=== PATIENT | female | born 1990 | race Caucasian/White ===

== ENCOUNTER 2023-04-11 16:55 | Emergency (ER) | payer OTHER, SELFPAY ==
[2023-04-11 17:04] VITALS: BP 106/64; PULSE 85; RESP 14; TEMP 37.1; O2SAT 95; BMI 27.9
--- NOTE | 2023-04-11 18:23 | CT_ITS ---
[address] [address] Patient Name: ALEXANDER CASON MRN: [id number] date: 1990 Sex: F Assigned Patient Location: ER Current Patient Location: .[facility] Accession/Order Number: [id number] Exam Date: 04/11/2023 18:18 Report Date: 04/11/2023 19:28 At the request of: LUCINA MARCELINO Procedure: CT lumbar spine wo con CT LUMBAR SPINE WITHOUT CONTRAST, 04/11/2023 6:18 PM EDT INDICATION: pain COMPARISON: None. TECHNIQUE: Thin-section axial CT images of the entire lumbar spine were acquired withoutcontrast. Supplemental 2D reformatted images were generated and reviewed as needed. Dose reduction techniques were achieved by using automated exposure control and/or adjustment of mA and/or kV according to patient size and/or use of iterative reconstruction technique. FINDINGS: PARASPINAL: Normal with no visible mass. BONES: No fracture, pars defect, or osseous lesion. OTHER: None. DISC LEVELS: T12-L1: No significant disc/facet abnormality, spinal stenosis, or foraminal stenosis. L1-L2: No significant disc/facet abnormality, spinal stenosis, or foraminal stenosis. L2-L3: No significant disc/facet abnormality, spinal stenosis, or foraminal stenosis. L3-L4: There is mild circumferential bulging of the L3-L4 disc. The central canal and neural foramina are satisfactorily maintained. L4-L5: There is circumferential bulging of the L4-L5 disc. This combines with mild ligamentum flavum thickening to result in mild central canal stenosis. Associated mild foraminal stenosis bilaterally. L5-S1: There is mild circumferential bulging of the L5-S1 disc. The central canal and neural foramina are satisfactorily maintained. IMPRESSION: Circumferential bulging of the L4-L5 disc with mild central canal stenosis as detailed above. Electronically authenticated by: Marisela BURNS Date: 04/11/2023 19:28
--- NOTE | 2023-04-11 19:33 | ED_ITS ---
HPI - Back Pain/Injury General Chief Complaint: Back Pain/Injury Stated Complaint: BACK PAIN Time Seen by Provider: 04/11/23 19:08 Source: patient Mode of arrival: walk-in History of Present Illness HPI Narrative: history of chronic back pain presenting with one day history of lower back pain is not radiating down her legs and not associated with any new trauma or injury. The patient mentioned that she had similar pain like this month ago she was seen with steroids and relaxant Review of systems otherwise negative Related Data Home Medications Medication Instructions Recorded Confirmed atomoxetine 40 mg capsule 40 mg PO DAILY 04/11/23 04/11/23 buprenorphine 8 mg-naloxone 2 mg 1 film sublingual DAILY 04/11/23 04/11/23 sublingual film (Suboxone) gabapentin 300 mg capsule 300 mg PO TID 04/11/23 04/11/23 quetiapine 150 mg tablet 150 mg PO .HS 04/11/23 04/11/23 Previous Rx's Medication Instructions Recorded cyclobenzaprine 5 mg tablet 5 mg PO BID PRN muscle spasm #10 04/11/23 tabs famotidine 20 mg tablet (Pepcid) 20 mg PO Q12H #10 tabs 04/11/23 meloxicam 15 mg tablet 15 mg PO DAILY PRN pain #10 tabs 04/11/23 prednisone 50 mg tablet 50 mg PO DAILY 5 days #5 tabs 04/11/23 Allergies Allergy/AdvReac Type Severity Reaction Status Date / Time Penicillins Allergy Severe Verified 04/11/23 17:04 Review of Systems ROS Status of ROS 10 or more systems reviewed and unremarkable except as noted in history and below Exam Narrative Exam Narrative: Nurses notes and vital signs reviewed and patient is not hypoxic. General: Well-appearing and in no apparent distress. Skin: Warm, dry, no pallor noted. No rash. Head: Normocephalic, atraumatic. Neck: Supple, non-tender. Eye: Pupils are equal, round and EOMI. No scleral icterus. Ears, Nose, Mouth, and Throat: TM are clear, no nasal mucosal hypertrophy. Oral mucosa is moist, no posterior oropharynx erythema, uvula is mid-line Cardiovascular: Regular Rate and Rhythm without murmur, gallop or rub. Respiratory: No accessory muscle use or respiratory distress. Lungs are clear to auscultation, no wheezing, rales or rhonchi Chest Wall: no tenderness Back: No midline thoracicsome midline sacral and lower lumbar tenderness. No CVA tenderness Musculoskeletal: normal ROM, no calf or popliteal tenderness, no lower e xtremity edema/swelling GI: Abdomen is soft, non-distended. Normal bowel sounds. No masses appreciated. No tenderness to palpation. No rebound, guarding, or rigidity noted. Neurological: A&O x4. No cranial nerve dysfunction observed. No truncal ataxia. Moves all extremities. Sensation intact. Psychiatric: Cooperative and interactive. Normal mood and affect. Constitutional Vital Signs - 24 hr 04/11/23 17:04 Temperature 98.7 F Pulse Rate [Monitor] 85 Respiratory Rate 14 Blood Pressure [Left Arm] 106/64 Pulse Oximetry 95 Oxygen Delivery Method Room Air Course Vital Signs Vital signs: Vital Signs Temperature 98.7 F 04/11/23 17:04 Pulse Rate 85 04/11/23 17:04 Respiratory Rate 14 04/11/23 17:04 Blood Pressure 106/64 04/11/23 17:04 Pulse Oximetry 95 04/11/23 17:04 Oxygen Delivery Method Room Air 04/11/23 17:04 Temperature 98.7 F 04/11/23 17:04 Pulse Rate 85 04/11/23 17:04 Respiratory Rate 14 04/11/23 17:04 Blood Pressure 106/64 04/11/23 17:04 Pulse Oximetry 95 04/11/23 17:04 Oxygen Delivery Method Room Air 04/11/23 17:04 MDM - Back Pain/Injury MDM Narrative Medical decision making narrative: CT of the lumbar spine shows mild disc disease at the L4-L5 level The patient was treated with prednisone in addition to Toradol and Norflex with prescription of the Mobic go home with chronic back pain with no alarming symptoms the patient was advised to follow- up with her primary care doctor The patient is to followup with primary care physician in next 2-3 days or to return to the emergency department should any of the signs or symptoms worsen or new symptoms develop. The patient agrees with the following Diagnosis and Treatment plan and the patient will be discharged home. Discharge Plan Discharge Chief Complaint: Back Pain/Injury Clinical Impression: Strain of lumbar region Patient Disposition: Home, Self-Care Time of Disposition Decision: 19:51 Mode of Transportation: Private Vehicle Prescriptions / Home Meds: New meloxicam 15 mg tablet 15 mg PO DAILY PRN (Reason: pain ) Qty: 10 0RF famotidine [Pepcid] 20 mg tablet 20 mg PO Q12H Qty: 10 0RF prednisone 50 mg tablet 50 mg PO DAILY 5 Days Qty: 5 0RF cyclobenzaprine 5 mg tablet 5 mg PO BID PRN (Reason: muscle spasm) Qty: 10 0RF No Action atomoxetine 40 mg capsule 40 mg PO DAILY buprenorphine-naloxone [Suboxone] 8-2 mg film 1 film sublingual DAILY gabapentin 300 mg capsule 300 mg PO TID quetiapine 150 mg tablet 150 mg PO .HS Instructions: Acute Low Back Pain (ED) Stand Alone Forms: Portal Instructions Referrals: ROMEO GAR [Primary Care Provider] - 1 week Discharge Date/Time: 04/11/23 20:06
[2023-04-11] MEDS: KETOROLAC TROMETHAMINE 60 MG/2 ML VIAL 30 MG IM (19:54)
[2023-04-11] MEDS: ORPHENADRINE 60 MG/ 2 ML VIAL IM (19:55)
== END 2023-04-11 20:06 | disposition home or self-care (01) ==
PROVIDERS: Emergency Provider Emergency Medicine; PCP Nurse Practitioner Family
DX: S39.012A Strain of muscle, fascia and tendon of lower back, initial encounter (principal); Z79.899 Other long term (current) drug therapy; M50.10 Cervical disc disorder with radiculopathy, unspecified cervical region
CPT/HCPCS: 72131; 96372; 99284

== ENCOUNTER 2023-10-20 20:58 | Emergency (ER) | payer OTHER, SELFPAY ==
[2023-10-20 21:00] VITALS: BP 125/89; PULSE 77; RESP 18; TEMP 36.8; O2SAT 99; BMI 29.1
--- NOTE | 2023-10-20 21:23 | ED.DENTAL1 ---
HPI - Dental/Oral General Chief complaint: Dental/Oral Stated complaint: DENTAL ISSUES Time Seen by Provider: 10/20/23 21:04 Source: patient Mode of arrival: walk-in Limitations: no limitations History of Present Illness HPI Narrative: 33 year old female presents to the ED for left lower dental pain, facial swelling. Onset was this morning. States she had her lower teeth pulled a few years ago. Some time ago a piece of tooth to the left posterior jaw area game through the gum line. Denies fever, chills, drainage, SOB, difficulty swallowing. Rates her pain 04/10. Denies chance of . MD Complaint: Reports tooth pain Related Data Home Medications Medication Instructions Recorded Confirmed atomoxetine 40 mg capsule 40 mg PO DAILY 04/11/23 10/20/23 buprenorphine 8 mg-naloxone 2 mg 1 film sublingual DAILY 04/11/23 10/20/23 sublingual film (Suboxone) gabapentin 300 mg capsule 300 mg PO TID 04/11/23 04/11/23 quetiapine 150 mg tablet 150 mg PO .HS 04/11/23 10/20/23 alprazolam 0.25 mg tablet mg 10/20/23 gabapentin 400 mg capsule mg 10/20/23 Previous Rx's Medication Instructions Recorded cyclobenzaprine 5 mg tablet 5 mg PO BID PRN muscle spasm #10 04/11/23 tabs famotidine 20 mg tablet (Pepcid) 20 mg PO Q12H #10 tabs 04/11/23 meloxicam 15 mg tablet 15 mg PO DAILY PRN pain #10 tabs 04/11/23 prednisone 50 mg tablet 50 mg PO DAILY 5 days #5 tabs 04/11/23 clindamycin HCl 300 mg capsule 300 mg PO Q8H 10 days #30 caps 10/20/23 ibuprofen 800 mg tablet 800 mg PO TID PRN pain #14 tabs 10/20/23 Allergies Allergy/AdvReac Type Severity Reaction Status Date / Time Penicillins Allergy Severe Verified 10/20/23 21:03 Review of Systems ROS Constitutional Denies: fever or chills Ears, nose, mouth, and throat Reports: mouth pain; Denies: throat pain, neck pain, throat swelling or difficulty swallowing Cardiovascular Denies: chest pain Respiratory Denies: shortness of breath Integumentary/Breast Denies: rash Neurological Denies: headache PFSH PFSH Social History Smoking status: Current every day smoker Exam Constitutional Vital Signs, click to edit/add: Last Vital Signs Temp 98.3 F 10/20/23 21:00 Pulse 77 10/20/23 21:00 Resp 18 10/20/23 21:00 BP 125/89 10/20/23 21:00 Pulse Ox 99 10/20/23 21:00 O2 Del Method Room Air 10/20/23 21:00 Common normals: no apparent distress and oriented x3 General appearance: cooperative; not ill appearing HENMT Mouth: lip normal and tongue normal Teeth and gingiva: caries (Left lower posterior dental caries at remaining tooth site. ) and other (Mild swelling left lower jaw. No swelling to floor of mouth. ) Throat: posterior oropharynx normal, uvula midline and other (Pt speaking in full sentences, handling secretions well.) Eye Common normals: conjunctivae normal and no scleral icterus Neck & C-Spine Common normals: supple Chest Chest: symmetrical chest wall rise Respiratory Common normals: normal respiratory effort Effort & inspection: symmetric chest movement Neuro Common normals: oriented x3 Sensorium/orientation: awake and alert Course Vital Signs Vital signs: Vital Signs Temperature 98.3 F 10/20/23 21:00 Pulse Rate 77 10/20/23 21:00 Respiratory Rate 18 10/20/23 21:00 Blood Pressure 125/89 10/20/23 21:00 Pulse Oximetry 99 10/20/23 21:00 Oxygen Delivery Method Room Air 10/20/23 21:00 Temperature 98.3 F 10/20/23 21:00 Pulse Rate 77 10/20/23 21:00 Respiratory Rate 18 10/20/23 21:00 Blood Pressure 125/89 10/20/23 21:00 Pulse Oximetry 99 10/20/23 21:00 Oxygen Delivery Method Room Air 10/20/23 21:00 MDM - Dental/Oral MDM Narrative Medical decision making narrative: Prescriptions were provided for clindamycin and Motrin. Follow up with a dentist for a recheck, further evaluation and treatment. Return precautions were discussed. Differential Diagnosis Differential diagnosis: Likely dental caries, toothache and dental abscess Medical Records Attestation: I reviewed the patient's medical records. Discharge Plan Discharge Chief Complaint: Dental/Oral Clinical Impression: Toothache Patient Disposition: Home, Self-Care Time of Disposition Decision: 21:14 Condition: Good Mode of Transportation: Private Vehicle Prescriptions / Home Meds: New clindamycin HCl 300 mg capsule 300 mg PO Q8H 10 Days Qty: 30 0RF ibuprofen 800 mg tablet 800 mg PO TID PRN (Reason: pain) Qty: 14 0RF No Action atomoxetine 40 mg capsule 40 mg PO DAILY buprenorphine-naloxone [Suboxone] 8-2 mg film 1 film sublingual DAILY gabapentin 300 mg capsule 300 mg PO TID quetiapine 150 mg tablet 150 mg PO .HS meloxicam 15 mg tablet 15 mg PO DAILY PRN (Reason: pain ) Qty: 10 0RF famotidine [Pepcid] 20 mg tablet 20 mg PO Q12H Qty: 10 0RF prednisone 50 mg tablet 50 mg PO DAILY 5 Days Qty: 5 0RF cyclobenzaprine 5 mg tablet 5 mg PO BID PRN (Reason: muscle spasm) Qty: 10 0RF gabapentin 400 mg capsule alprazolam 0.25 mg tablet Instructions: Toothache (ED) Additional Instructions: Follow up with your dentist for a recheck, further evaluation and treatment. Return to the ER if your symptoms worsen. Stand Alone Forms: Portal Instructions Referrals: ROMOE GAR [Primary Care Provider] - 1 week Discharge Date/Time: 10/20/23 21:32
[2023-10-20] MEDS: CLINDAMYCIN HCL 150 MG CAPSULE 300 MG PO (21:29)
[2023-10-20] MEDS: IBUPROFEN 400 MG TABLET 800 MG PO (21:29)
--- OUTSIDE RECORDS SUMMARY | 2023-10-21 10:14 | XMS_ITS | CCD ---
Author Name Unknown Address [id number] [place] [address] Organization [facility] Care Team Providers Care Shell Sorter Name Role Phone Sidney Nava Unavailable Unavailable Unavailable Primary Care Provider Unavailabl e Unavailable Primary Care Provider Unavailabl e MALINI FRITZ Referring Unavailable CATRINA, MALINI Referring Unavailable CATRINA, MALINI Referring Unavailable CATRINA, MALINI Referring Unavailable Rody Monk MD Attending Unavailable PETROS, DR COOK Admitting Unavailable REQUEST, NONE LISTED Primary Care Unavaila ble KARMICHAEL, DR COOK Consulting Unavailable KARASIK, DR COOK Attending Unavailable KARASIK, DR COOK Consulting Unavailable CONG, ROMEO Primary Care Unavailable KARASIK, DR COOK Attending Unavailable KARASIK, DR COOK Admitting Unavailable CONG, ROMEO Consulting Unavailable CONG, ROMEO Attending Unavailable CONG, ROMEO Admitting Unavailable CONG, ROMEO Primary Care Unavailable LUCINA MARCELINO Attending Unavailable CONG, ROMEO Primary Care Unavailable CRISTHIAN OLVERA Consulting Unavailable LUCINA MARCELINO Admitting Unavailable PAY, DR BAL Admitting Unavailable REQUEST, NONE LISTED Primary Care Unavaila ble CRISTHIAN VANN Consulting Unavailable PAY, DR BAL Attending Unavailable REQUEST, NONE LISTED Primary Care Unavaila ble PETROS, DR COOK Consulting Unavailable ASHLEIGHASICandelaria, DR COOK Attending Unavailable KARASIK, DR COOK Admitting Unavailable ZIEBDR MAYUR TORRES Consulting Unavailable Allergies Allergy Classification Reported Allergen(s) Allergy Type Date of Onset Reaction(s) Facility (1 source) Penicillins Drug allergy (disorder) 04-10-2013 [facility] Repository Problems Active Problems Problem Classification Problem Date Documented Da te Episodic/Chronic Anxiety disorders (1 source) Anxiety disorder, unspecified; Translations: [ANXIETY DISORDER UNSPECIFIED] Onset: 07-31-2022 Chronic Other female genital disorders (4 sources) Other specified conditions associated with female genital organs and menstrual cycle; Translations: [OTH SPEC COND FE GEN ORG MENST CYCL] Onset: 12-10-2022 Episodic Substance-related disorders (2 sources) Nicotine dependence, cigarettes, uncomplicated; Translations: [Opioid abuse, uncomplicated] Onset: 05-12-2022 Chronic Unclassified (2 sources) LOW BACK PAIN, UNSPECIFIED; Translations: [LOW BACK PAIN, UNSPECIFIED] Onset: 07-31-2022 Past or Other Problems Problem Classification Problem Date Documented Da te Episodic/Chronic Abdominal pain (4 sources) Pelvic and perineal pain; Translations: [PELVIC AND PERINEAL PAIN] Onset: 07-11-2022 Episodic Disorders of teeth and jaw (4 sources) Jaw pain; Translations: [Other specified disorders of teeth and supporting structures] Onset: 05-11-2022 Episodic E Codes: Natural/environment (1 source) Other and unspecified overexertion or strenuous movements or postures, initial encounter; Translations: [OTH AND UNS OVREXRT/STRN MVMT/POS INT] Onset: 07-31-2022 Episodic Other aftercare (5 sources) Other chcf (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 therapy; Translations: [OTH SENIOR CARE CURRENT DRUG THERAPY] Onset: 07-31-2022 Episodic Other nervous system disorders (1 source) Atypical facial pain; Translations: [ATYPICAL FACIAL PAIN] Onset: 05-12-2022 Episodic Other screening for suspected conditions (not mental disorders or infectious disease) (4 sources) Encounter for screening for malignant neoplasm of cervix; Translations: [ENC SCREENING MALIG NEOPLASM CERV] Onset: 06-15-2022 Episodic Ovarian cyst (1 source) Unspecified ovarian cyst, right side; Translations: [UNSPECIFIED OVARIAN CYST RIGHT SIDE] Onset: 07-17-2022 Episodic Sprains and strains (1 source) Sprain of ligaments of lumbar spine, initial encounter; Translations: [SPRAIN LIGAMENTS LUMBAR SPN INITIAL] Onset: 07-31-2022 Episodic Unclassified (1 source) LOW BACK PAIN, UNSPECIFIED; Translations: [LOW BACK PAIN, UNSPECIFIED] Onset: 07-29-2022 Results Test Name Value Interpretation Reference Range Facil ity COMPLIANCE DRUG SCREENon PDF . Normal [facility] Comment on above: Performed By: #### D SDOAL #### [facility] [address] [address] [address] Roberto Parmar Summary FINAL Normal [facility] Comment on above: Result Comment: === TOXASSURE COMP DRUG ANALYSIS,UR === Specimen Alert Note: Urinary creatinine is low; ability to detect some drugs may be compromised. Interpret results with caution. === Test Result Flag Units Drug Present and Declared for Prescription Verification Alprazolam 132 EXPECTED ng/mg creat Alpha-hydroxyalprazolam 247 EXPECTED ng/mg creat Source of alprazolam is a scheduled prescription medication. Alpha-hydroxyalprazolam is an expected metabolite of alprazolam. Buprenorphine 379 EXPECTED ng/mg creat Norbuprenorphine 637 EXPECTED ng/mg creat Source of buprenorphine is a scheduled prescription medication. Norbuprenorphine is an expected metabolite of buprenorphine. Gabapentin PRESENT EXPECTED Drug Present not Declared for Prescription Verification Acetaminophen PRESENT UNEXPECTED Ibuprofen PRESENT UNEXPECTED Dextrorphan/Levorphanol PRESENT UNEXPECTED Dextrorphan is an expected metabolite of dextromethorphan, an gpnm-iow-mzwagwj or prescription cough suppressant. Levorphanol is a scheduled prescription medication. Dextrorphan cannot be distinguished from levorphanol by the method used for analysis. Guaifenesin PRESENT UNEXPECTED Guaifenesin may be administered as an zreb-xjr-anscfbv or prescription drug; it may also be present as a breakdown product of methocarbamol. Drug Absent but Declared for Prescription Verification Cyclobenzaprine Not Detected UNEXPECTED Quetiapine Not Detected UNEXPECTED === Test Result Flag Units Ref Range Creatinine 19 L mg/dL >=20 === Declared Medications: The flagging and interpretation on this report are based on the following declared medications. Unexpected results may arise from inaccuracies in the declared medications. Note: The testing scope of this panel includes these medications: Alprazolam (Xanax) Buprenorphine. (Suboxone) Cyclobenzaprine (Flexeril) Gabapentin Quetiapine (Seroquel) Note: The testing scope of this panel does not include following reported medications: Naloxone (Suboxone) === For clinical consultation, please call . === Performed By: #### D SDOALC #### [facility] [address] [place] [address] Dr. Roberto Parmar URIC ACID [facility] 09-03 Uric Acid, Urine 12.4 mg/dL Normal Not Estab. [facility] Comment on above: Performed By: #### U RICUR #### [facility] [address] [place] [address] Dr. Roberto Parmar DRUG SCREEN RAPID (URINE)on 09-02-2022 AMP Negative Normal NEGATIVE [facility] Comment on above: Performed By: #### D RUGRPD #### [facility] [address] [place] [address] Dr. Roberto Parmar BAR Negative Normal NEGATIVE [facility] Comment on above: Performed By: #### D RUGRPD #### [facility] [address] [place] [address] Dr. Roberto Parmar BUP Positive Abnormal NEGATIVE [facility] Comment on above: Performed By: #### D RUGRPD #### [facility] [address] [place] [address] Dr. Roberto Parmar BZO Positive Abnormal NEGATIVE [facility] Comment on above: Performed By: #### D RUGRPD #### [facility] [address] [place] [address] Dr. Roberto Parmar BRITTANY Negative Normal NEGATIVE [facility] Comment on above: Performed By: #### D RUGRPD #### [facility] [address] [place] [address] Dr. Roberto Parmar CUT-OFFS SEE BELOW Normal [facility] Comment on above: Result Comment: AMP (Amphetamine): 500ng/mL, BAR (Barbituates): 200 ng/mL, BZO (Benzodiazepines): 150 ng/mL, BUP (Buprenorphine): 10 ng/mL, BRITTANY (Cocaine): 150 ng/mL, mAMP (Methamphetamine): 500 ng/mL, MTD (Methadone): 200 ng/mL, OPI (Opiates): 100 ng/mL, OXY (Oxycodone): 100 ng/mL, PCP (Phencyclidine): 25 ng/mL, PPX (Propoxyphene): 300 ng/mL, THC (Cannabinoids): 50 ng/mL, TCA (Trycyclic Antidepressants): 300 ng/mL Performed By: #### D RUGRPD #### [facility] [address] [address] [address] Roberto Parmar DRUG CUT HEADER DRUG CLASS TEST SYSTEM CUT-OFF CONCENTRATIONS ARE FOLLOWS: Normal [facility] Comment on above: Performed By: #### D RUGRPD #### [facility] [address] [place] [address] Dr. Roberto Parmar mAMP Negative Normal NEGATIVE [facility] Comment on above: Performed By: #### D RUGRPD #### [facility] [address] [place] [address] Dr. Roberto Parmar MTD Negative Normal NEGATIVE [facility] Comment on above: Performed By: #### D RUGRPD #### [facility] [address] [place] [address] Dr. Roberto Parmar OPI Negative Normal NEGATIVE [facility] Comment on above: Performed By: #### D RUGRPD #### [facility] [address] [place] [address] Dr. Roberto Parmar OXY Negative Normal NEGATIVE [facility] Comment on above: Performed By: #### D RUGRPD #### [facility] [address] [place] [address] Dr. Roberto Parmar PCP Negative Normal NEGATIVE [facility] Comment on above: Performed By: #### D RUGRPD #### [facility] [address] [place] [address] Dr. Roberto Parmar PPX Negative Normal NEGATIVE [facility] Comment on above: Performed By: #### D RUGRPD #### [facility] [address] [place] [address] Dr. Roberto Parmar TCA Negative Normal NEGATIVE [facility] Comment on above: Performed By: #### D RUGRPD #### [facility] [address] [place] [address] Dr. Roberto Parmar THC Negative Normal NEGATIVE [facility] Comment on above: Performed By: #### D RUGRPD #### [facility] [address] [place] [address] Dr. Roberto Parmar US PELVIS AND TRANSVAGon US PELVIS AND TRANSVAG EXAMINATION: US PELVIS AND TRANSVAG HISTORY: Pelvic and perineal pain COMPARISON: Ultrasound pelvis 12/31/2009 TECHNIQUE: Transabdominal and transvaginal sonographic examination. FINDINGS: UTERUS: Slightly heterogeneous echotexture; nonspecific. Normal size and contour. Uterus size: 7.8 x 3.3 x 3.8 cm ENDOMETRIUM: Trace amount of fluid within endometrial cavity, 2 mm in thickness. Normal endometrial thickness and echotexture. Endometrial thickness: 10 mm RIGHT OVARY: Normal size and appearance. Duplex Doppler demonstrates normal waveform and flow; resistive index 0.6. Ovary size: 2.4 x 1.4 x 2.2 cm LEFT OVARY: Contains a benign-appearing 2.0 cm cyst. Duplex Doppler demonstrates normal waveform and flow; resistive index 0.5. Ovary size: 3.9 x 2.3 x 2.4 cm CUL-DE-SAC: Unremarkable. No significant free fluid. BLADDER: Unremarkable. OTHER: None. IMPRESSION: 1. Right ovary contains a 2.0 cm benign-appearing cyst of uncertain clinical significance. 2. Trace fluid within the endometrial cavity, likely blood products. 3. No specific findings to account for patient's symptoms. Electronically authenticated by: MAYUR ALLEN Date: 2022-07-13 07:21 Normal [facility] PAP ACOG PANEL 2: 21 to 31on 06-18-2022 . . Normal [facility] Comment on above: Performed By: #### [id number] #### [facility] [address] [place] [address] Dr. Roberto Parmar Age Gdln ACOG Testing 21-29 Normal [facility] Comment on above: Performed By: #### [id number] #### [facility] [address] [place] [address] Dr. Roberto Parmar DIAGNOSIS: Comment Normal [facility] Comment on above: Result Comment: NEGA TIVE FOR INTRAEPITHELIAL LESION OR MALIGNANCY. Performed By: #### [id number] #### [facility] [address] [place] [address] Dr. Roberto Parmar Methodology: Comment [facility] Comment on above: Result Comment: This liquid based ThinPrep(R) pap test was screened with the use of an image guided system. Performed By: #### [id number] #### [facility] [address] [place] [address] Dr. Roberto Parmar Note: Comment Normal [facility] Comment on above: Result Comment: The Pap smear is a screening test designed to aid in the detection of premalignant and malignant conditions of the uterine cervix. It is not a diagnostic procedure and should not be used as the sole means of detecting cervical cancer. Both false-positive and false-negative reports do occur. . Performed By: #### [id number] #### [facility] [address] [address] [address] Roberto Parmar Performed by: Comment Normal [facility] Comment on above: Result Comment: Kishore De Dios Education Administrator (ASCP) Performed By: #### [id number] #### [facility] [address] [place] [address] Dr. Roberto Parmar Reflex Criteria: Comment Normal [facility] Comment on above: Result Comment: The HPV DNA reflex criteria were not met with this specimen result therefore, no HPV testing was performed. . Performed By: #### [id number] #### [facility] [address] [place] [address] Dr. Roberto Parmar Specimen adequacy: Comment Normal [facility] Comment on above: Result Comment: Sati sfactory for evaluation. Endocervical and/or squamous metaplastic cells (endocervical component) are present. Performed By: #### [id number] #### [facility] [address] [place] [address] Dr. Roberto Parmar CBCon 12-06-2020 Erythrocyte distribution width (RBC) [Ratio] 13.6 % Normal 11.8-14.4 [facility] Comment on above: Performed By: #### P HEP, HIVCMB #### [facility] [address] [place], [place] [id number] District Recruiter: Alvino Davila MD #### CP, CBC, HCG #### [facility] [address] [place] [address] District Recruiter: Luis A Peng MD Hematocrit (Bld) [Volume fraction] 44.1 % Normal 36.3-47.1 [facility] Comment on above: Performed By: #### P HEP, HIVCMB #### [address] [id number] District Recruiter: Alvino Davila MD #### CP, CBC, HCG #### [address] [place] [address] District Recruiter: Luis A Peng MD Hemoglobin (Bld) [Mass/Vol] 14.1 g/dL Normal 11.9-15.1 [facility] Comment on above: Performed By: #### P HEP, HIVCMB #### [address] [id number] District Recruiter: Alvino Davila MD #### CP, CBC, HCG #### [address] [place] [id number] District Recruiter: Luis A Peng MD MCH (RBC) [Entitic mass] 25.4 pg Normal 25.2-33.5 [facility] Comment on above: Performed By: #### P HEP, HIVCMB #### [address] [id number] District Recruiter: Alvino Davila MD #### CP, CBC, HCG #### [address] [place] [id number] District Recruiter: Luis A Peng MD MCHC (RBC) [Mass/Vol] 32.0 g/dL Normal 28.4-34.8 [facility] Comment on above: Performed By: #### P HEP, HIVCMB #### [address] [id number] District Recruiter: Alvino Davila MD #### CP, CBC, HCG #### [address] [place] [address] District Recruiter: Luis A Peng MD MCV (RBC) [Entitic vol] 79.5 fL Low 82.6-102.9 [facility] Comment on above: Performed By: #### P HEP, HIVCMB #### [address] [id number] District Recruiter: Alvino Davila MD #### CP, CBC, HCG #### [facility] [address] [place] [id number] District Recruiter: Luis A Peng MD NRBC Automated 0.0 per 100 WBC Normal 0.0 [facility] Comment on above: Performed By: #### P HEP, HIVCMB #### [address] [address] District Recruiter: Alvino Davila MD #### CP, CBC, HCG #### [address] [place] [id number] ( District Recruiter: Luis A Peng MD Platelet mean volume (Bld) [Entitic vol] 11.8 fL Normal 8.1-13.5 [facility] Comment on above: Performed By: #### P HEP, HIVCMB #### [address] [address] District Recruiter: Alvino Davila MD #### CP, CBC, HCG #### [address] [place] [id number] District Recruiter: Luis A Peng MD Platelets (Bld) [#/Vol] 238 10*3/uL Normal 138-453 [facility] Comment on above: Performed By: #### P HEP, HIVCMB #### [address] [address] District Recruiter: Alvino Davila MD #### CP, CBC, HCG #### [address] [place] [phone] District Recruiter: Luis A Peng MD RBC (Bld) [#/Vol] 5.55 10*6/uL High 3.95-5.11 [facility] Comment on above: Performed By: #### P HEP, HIVCMB #### [facility] [address] [place], [place] [id number] District Recruiter: Alvino Davila MD #### CP, CBC, HCG #### [facility] [address] [place] [address] Dr. [place] [phone] District Recruiter: Luis A Peng MD WBC (Bld) [#/Vol] 8.6 10*3/uL Normal 3.5-11.3 [facility] Comment on above: Performed By: #### P HEP, HIVCMB #### [address] [place], [place] [id number] District Recruiter: Alvino Davila MD #### CP, CBC, HCG #### [address] [place] [address] District Recruiter: Luis A Peng MD Erythrocyte distribution width (RBC) [Ratio] 13.6 % 11.8 - 14.4 % [place], [place] Hematocrit (Bld) [Volume fraction] 44.1 % 36.3 - 47.1 % [place], [place] Hemoglobin (Bld) [Mass/Vol] 14.1 g/dL 11.9 - 15.1 g/dL [place], [place] Interpretation and review of laboratory results Abnormal [place] MCH (RBC) [Entitic mass] 25.4 pg 25.2 - 33.5 pg [place] MCHC (RBC) [Mass/Vol] 32.0 g/dL 28.4 - 34.8 g/dL [place] MCV (RBC) [Entitic vol] 79.5 fL Low 82.6 - 102.9 fL [place], [place] Platelet mean volume (Bld) [Entitic vol] 11.8 fL 8.1 - 13.5 fL [place], [place] Platelets (Bld) [#/Vol] 238 10*3/uL [place] RBC (Bld) [#/Vol] 5.55 10*6/uL High 3.95 - 5.11 m/uL [place] WBC (Bld) [#/Vol] 8.6 10*3/uL [place] WBC (Bld) [#/Vol] 0.0 10*3/uL 0.0 per 100 WBC M [place], [place] Comp Metabolic Profon 2020 (cont.) Normal [facility] Comment on above: Result Comment: Aver age GFR for 20-29 years old: 116 mL/min/1.73sq m Chronic Kidney Disease: <60 mL/min/1.73sq m Kidney failure: <15 mL/min/1.73sq m eGFR calculated using average adult body mass. Additional eGFR calculator available at: http://www.[employer]multiple_crcl_2011.htm Performed By: #### P HEP, HIVCMB #### [facility] [employer] [address] [place] [address] [id number] District Recruiter: Alvino Davila MD #### CP, CBC, HCG #### [facility] [address] [place] [address] [place] [address] District Recruiter: Luis A Peng MD Albumin [Mass/Vol] 4.6 g/dL Normal 3.5-5.2 [facility] Comment on above: Performed By: #### P HEP, HIVCMB #### [facility] [employer] [address] [place] [address] [id number] District Recruiter: Alvino Davila MD #### CP, CBC, HCG #### [facility] [address] [place] [address] [place] [address] District Recruiter: Luis A Peng MD Albumin/Globulin [Mass ratio] 1.6 {ratio} Normal 1.0-2.5 [facility] Comment on above: Performed By: #### P HEP, HIVCMB #### [facility] [employer] [address] [place] [address] [id number] District Recruiter: Alvino Davila MD #### CP, CBC, HCG #### [facility] [address] [place] [address] District Recruiter: Luis A Peng MD Alkaline Phos 81 U/L Normal 35-104 [facility] Comment on above: Performed By: #### P HEP, HIVCMB #### [address] [address] District Recruiter: Alvino Davila MD #### CP, CBC, HCG #### [facility] [address] [place] [address] District Recruiter: Luis A Peng MD ALT [Catalytic activity/Vol] 39 U/L High 5-33 [facility] Comment on above: Performed By: #### P HEP, HIVCMB #### [address] [address] District Recruiter: Alvino Davila MD #### CP, CBC, HCG #### [facility] [address] [place] [address] District Recruiter: Luis A Peng MD Anion gap [Moles/Vol] 12 mmol/L Normal 9-17 [facility] Comment on above: Performed By: #### P HEP, HIVCMB #### [address] [address] District Recruiter: Alvino Davila MD #### CP, CBC, HCG #### [facility] [address] [place], [place] [id number] District Recruiter: Luis A Peng MD AST [Catalytic activity/Vol] 28 U/L Normal <32 [facility] Comment on above: Performed By: #### P HEP, HIVCMB #### [address] [address] District Recruiter: Alvino Davila MD #### CP, CBC, HCG #### [address] [place], [place] [id number] District Recruiter: Luis A Peng MD Bilirubin Ql (U) 0.26 mg/dL Low 0.3-1.2 [facility] Comment on above: Performed By: #### P HEP, HIVCMB #### [address] [address] District Recruiter: Alvino Davila MD #### CP, CBC, HCG #### [address] [place], [place] [phone] District Recruiter: Luis A Peng MD BUN/CRE Ratio 14 Normal 9-20 [facility] Comment on above: Performed By: #### P HEP, HIVCMB #### [address] [address] District Recruiter: Alvino Davila MD #### CP, CBC, HCG #### [address] [place], [place] [id number] District Recruiter: Luis A Peng MD Calcium [Mass/Vol] 10.1 mg/dL Normal 8.6-10.4 [facility] Comment on above: Performed By: #### P HEP, HIVCMB #### [address] [address] District Recruiter: Alvino Davila MD #### CP, CBC, HCG #### [address] [place], [place] [phone] District Recruiter: Luis A Peng MD Chloride [Moles/Vol] 101 mmol/L Normal 98-107 [facility] Comment on above: Performed By: #### P HEP, HIVCMB #### [address] [address] District Recruiter: Alvino Davila MD #### CP, CBC, HCG #### [address] [place], [place] [id number] District Recruiter: Luis A Peng MD CO2 [Moles/Vol] 26 mmol/L Normal 20-31 [facility] Comment on above: Performed By: #### P HEP, HIVCMB #### [address] [address] District Recruiter: Alvino Davila MD #### CP, CBC, HCG #### [facility] [address] [place], [place] [phone] District Recruiter: Luis A Peng MD Creatinine [Mass/Vol] 0.49 mg/dL Low 0.50-0.90 [facility] Comment on above: Performed By: #### P HEP, HIVCMB #### [address] [id number] District Recruiter: Alvino Davila MD #### CP, CBC, HCG #### [address] [place], [place] [phone] District Recruiter: Luis A Peng MD GFR, Amer >60 Normal >60 [facility] Comment on above: Performed By: #### P HEP, HIVCMB #### [address] [address] District Recruiter: Avlino Davila MD #### CP, CBC, HCG #### [address] [place], [place] [phone] District Recruiter: Luis A Peng MD GFR,non Amer >60 Normal >60 [facility] Comment on above: Performed By: #### P HEP, HIVCMB #### [address] [address] District Recruiter: Alvino Davila MD #### CP, CBC, HCG #### [address] [place], [place] [id number] District Recruiter: Luis A Peng MD Glucose [Mass/Vol] 101 mg/dL High 70-99 [facility] Comment on above: Performed By: #### P HEP, HIVCMB #### [address] [address] District Recruiter: Alvino Davila MD #### CP, CBC, HCG #### [facility] [address] [place] [phone] District Recruiter: Luis A Peng MD Potassium [Moles/Vol] 4.2 mmol/L Normal 3.7-5.3 [facility] Comment on above: Performed By: #### P HEP, HIVCMB #### [address] [address] District Recruiter: Alvino Davila MD #### CP, CBC, HCG #### [facility] [address] [place] [address] Dr. [place] [phone] District Recruiter: Luis A Peng MD Protein [Mass/Vol] 7.5 g/dL Normal 6.4-8.3 [facility] Comment on above: Performed By: #### P HEP, HIVCMB #### [address] [address] District Recruiter: Alvino Davila MD #### CP, CBC, HCG #### [facility] [address] [place] [address] Dr. [place] [phone] District Recruiter: Luis A Peng MD Sodium [Moles/Vol] 139 mmol/L Normal 135-144 [facility] Comment on above: Performed By: #### P HEP, HIVCMB #### [address] [address] District Recruiter: Alvino Davila MD #### CP, CBC, HCG #### [facility] [address] [place] [address] Dr. [place] [phone] District Recruiter: Luis A Peng MD Staging: Normal [facility] Comment on above: Result Comment: Stag e 1: Some kidney damage normal GFR Stage 2: Mild kidney damage GFR 60-89 Stage 3: Moderate kidney damage GFR 30-59 Stage 4: Severe kidney damage GFR 15-29 Stage 5: Severe kidney damage GFR <15 ESRD - chronic treatment by dialysis or transplant Performed By: #### P HEP, HIVCMB #### [facility] [address] [place], [place] [id number] District Recruiter: Alvino Davila MD #### CP, CBC, HCG #### [facility] [address] [place] [address] District Recruiter: Luis A Peng MD Urea nitrogen [Mass/Vol] 7 mg/dL Normal 6-20 [facility] Comment on above: Performed By: #### P HEP, HIVCMB #### [facility] [address] [place], [place] [phone] District Recruiter: Alvino Davila MD #### CP, CBC, HCG #### [facility] [address] [place] [address] District Recruiter: Luis A Peng MD Comprehensive Metabolic Pane [facility] 12-06-2020 Albumin [Mass/Vol] 4.6 g/dL 3.5 - 5.2 g/dL [place], [place] Albumin/Globulin [Mass ratio] 1.6 {ratio} [place], [place] ALP [Catalytic activity/Vol] 81 U/L 35 - 104 U/L [place] ALT [Catalytic activity/Vol] 39 U/L High 5 - 33 U/L [place] Anion gap [Moles/Vol] 12 mmol/L 9 - 17 mmol/L [place] AST [Catalytic activity/Vol] 28 U/L <32 [place] Bilirubin Ql (U) 0.26 mg/dL Low 0.3 - 1.2 mg/dL [place], [place] Bun/Cre Ratio 14 [place], [place] Calcium [Mass/Vol] 10.1 mg/dL 8.6 - 10.4 mg/dL [place], [place] Chloride [Moles/Vol] 101 mmol/L 98 - 107 mmol/L [place] CO2 [Moles/Vol] 26 mmol/L 20 - 31 mmol/L [place] Creatinine [Mass/Vol] 0.49 mg/dL Low 0.5 - 0.9 mg/dL [place] GFR >60 >60 mL/min [place], [place] GFR Non- >60 >60 mL/min [place] Glucose [Mass/Vol] 101 mg/dL High 70 - 99 mg/dL [place], [place] Interpretation and review of laboratory results Abnormal [place], [place] Potassium [Moles/Vol] 4.2 mmol/L 3.7 - 5.3 mmol/L [place] Protein [Mass/Vol] 7.5 g/dL 6.4 - 8.3 g/dL [place], [place] Sodium [Moles/Vol] 139 mmol/L 135 - 144 mmol/L [place] Urea nitrogen [Mass/Vol] 7 mg/dL 6 - 20 mg/dL [place] HCG Qualitative, Serumon hCG Qual Negative NEGATIVE [place] Comment on above: Specimens with hCG l evels near the threshold of the test (25 mIU/mL) may give a negative or indeterminate result. In such cases, another test should be performed with a new specimen in 48-72 hours. If early is suspected clinically in this setting, correlation with quantitative serum b-hCG level is suggested. [employer] has confirmed the use of plasma for this test. This has not been cleared or approved by the U.S. Food and Drug Administration. The FDA has determined that such clearance is not necessary. HCG Screen, Bloodon 12-06-19 21 HCG Qn Negative Normal NEG [facility] Comment on above: Result Comment: Spec imens with hCG levels near the threshold of the test (25 mIU/mL) may give a negative or indeterminate result. In such cases, another test should be performed with a new specimen in 48-72 hours. If early is suspected clinically in this setting, correlation with quantitative serum b-hCG level is suggested. [employer] has confirmed the use of plasma for this test. This has not been cleared or approved by the U.S. Food and Drug Administration. The FDA has determined that such clearance is not necessary. Performed By: #### P HEP, HIVCMB #### [address] [address] District Recruiter: Alvino Davila MD #### CP, CBC, HCG #### [address] [place] [address] District Recruiter: Lusi A Peng MD HIV Ag/Abon 12-06-2020 HIV Ag/Ab NONREACTIVE Normal [facility] Comment on above: Result Comment: No l aboratory evidence of HIV infection. If acute HIV infection is suspected, consider testing for HIV-1 RNA. Performed By: #### P HEP, HIVCMB #### [address] [address] District Recruiter: Alvino Davila MD #### CP, CBC, HCG #### [address] [place] [address] District Recruiter: Luis A Peng MD HIV Screenon 12-06-2020 HIV Ag/Ab NONREACTIVE NONREACTIVE [place], [place] Comment on above: No laboratory eviden ce of HIV infection. If acute HIV infection is suspected, consider testing for HIV-1 RNA. Hepatitis Acute [facility] 12-06 Hep A Ab,IgM NONREACTIVE Normal NR [facility] Comment on above: Performed By: #### P HEP, HIVCMB #### [address] [address] District Recruiter: Alvino Davila MD #### CP, CBC, HCG #### [address] [place] [address] District Recruiter: Luis A Peng MD Hep B Core Ab,IgM NONREACTIVE Normal [facility] Comment on above: Performed By: #### P HEP, HIVCMB #### [address] [place] [address] District Recruiter: Alvino Davila MD #### CP, CBC, HCG #### [facility] [address] [place] [address] [place] [address] District Recruiter: Luis A Peng MD Hep B Surf Ag NONREACTIVE Normal [facility] Comment on above: Performed By: #### P HEP, HIVCMB #### [address] [address] District Recruiter: Alvino Davila MD #### CP, CBC, HCG #### [facility] [address] [place] [address] [place] [address] District Recruiter: Luis A Peng MD Hep C Ab REACTIVE Abnormal [facility] Comment on above: Result Comment: The hepatitis C procedure used in our laboratory is a Chemiluminescent test specific for three recombinant HCV antigens. A negative anti-HCV result indicates that the antibodies to hepatitis C virus are not present at this time. Individuals with reactive anti-HCV should be considered infected and infectious until proven otherwise. Confirmation of all equivocal or reactive results is recommended by ordering HCV RNA by PCR. Results reported to the appropriate Health Department Performed By: #### P HEP, HIVCMB #### [address] [address] District Recruiter: Alvino Davila MD #### CP, CBC, HCG #### [facility] [address] [place] [address] [place] [address] District Recruiter: Luis A Peng MD Hepatitis Panel, [facility] HAV IgM IA Qn (S) NONREACTIVE NONREACTIVE [facility], [place] Hep B Core Ab, IgM NONREACTIVE NONREACTIVE [facility], [place] Hepatitis B Surface Ag NONREACTIVE NONREACTIVE [facility], [place] Hepatitis C Ab REACTIVE Abnormal NONREACTIVE [place], [place] Comment on above: The hepatitis C procedure used in our laboratory is a Chemiluminescent test specific for three recombinant HCV antigens. A negative anti-HCV result indicates that the antibodies to hepatitis C virus are not present at this time. Individuals with reactive anti-HCV should be considered infected and infectious until proven otherwise. Confirmation of all equivocal or reactive results is recommended by ordering HCV RNA by PCR. Results reported to the appropriate Health Department Interpretation and review of laboratory results Abnormal [place], [place] Metabolic Panelon 12-06-2020 GFR/1.73 sq M predicted among non-blacks MDRD (S/P/Bld) [Vol rate/Area] [place], [place] Comment on above: Stage 1: Some kidney damage normal GFR Stage 2: Mild kidney damage GFR 60-89 Stage 3: Moderate kidney damage GFR 30-59 Stage 4: Severe kidney damage GFR 15-29 Stage 5: Severe kidney damage GFR <15 ESRD - chronic treatment by dialysis or transplant Average GFR for 20-2 9 years old: 116 mL/min/1.73sq m Chronic Kidney Disease: <60 mL/min/1.73sq m Kidney failure: <15 mL/min/1.73sq m eGFR calculated using average adult body mass. Additional eGFR calculator available at: http://www.[employer]multiple_crcl_2012.htm [employer] 05-30-2020 Erythrocyte distribution width (RBC) [Ratio] 12.7 % Normal 11.8-14.4 [facility] Comment on above: Performed By: #### C P, HCG, CBC #### [facility] [address] [place] [address] [place] [address] District Recruiter: Luis A Peng MD #### HIVCMB, PHEP #### [facility] [employer] [address] [place] [address] District Recruiter: Alvino Davila MD Hematocrit (Bld) [Volume fraction] 39.2 % Normal 36.3-47.1 [facility] Comment on above: Performed By: #### C P, HCG, CBC #### [facility] [address] [place] [address] [place] [address] District Recruiter: Luis A Peng MD #### HIVCMB, PHEP #### [address] [id number] District Recruiter: Alvino Davila MD Hemoglobin (Bld) [Mass/Vol] 12.3 g/dL Normal 11.9-15.1 [facility] Comment on above: Performed By: #### C P, HCG, CBC #### [address] [place] [phone] District Recruiter: Luis A Peng MD #### HIVCMB, PHEP #### [address] [id number] District Recruiter: Alvino Davila MD MCH (RBC) [Entitic mass] 26.2 pg Normal 25.2-33.5 [facility] Comment on above: Performed By: #### C P, HCG, CBC #### [address] [place] [phone] District Recruiter: Luis A Peng MD #### HIVCMB, PHEP #### [place] [phone] District Recruiter: Alvino Davila MD MCHC (RBC) [Mass/Vol] 31.4 g/dL Normal 28.4-34.8 [facility] Comment on above: Performed By: #### C P, HCG, CBC #### [address] [place] [phone] District Recruiter: Luis A Peng MD #### HIVCMB, PHEP #### [address] [address] District Recruiter: Alvino Davila MD MCV (RBC) [Entitic vol] 83.6 fL Normal 82.6-102.9 [facility] Comment on above: Performed By: #### C P, HCG, CBC #### [address] [place] [address] District Recruiter: Luis A Peng MD #### HIVCMB, PHEP #### [address] [id number] District Recruiter: Alvino Davila MD NRBC Automated 0.0 per 100 WBC Normal 0.0 [facility] Comment on above: Performed By: #### C P, HCG, CBC #### [facility] [address] [place] [address] [place], [place] [phone] District Recruiter: Luis A Peng MD #### HIVCMB, PHEP #### [address] [phone] District Recruiter: Alvino Davila MD Platelet mean volume (Bld) [Entitic vol] 10.9 fL Normal 8.1-13.5 [facility] Comment on above: Performed By: #### C P, HCG, CBC #### [facility] [address] [place] [address] [place] [phone] District Recruiter: Luis A Peng MD #### HIVCMB, PHEP #### [place] [phone] District Recruiter: Alvino Davila MD Platelets (Bld) [#/Vol] 277 10*3/uL Normal 138-453 [facility] Comment on above: Performed By: #### C P, HCG, CBC #### [facility] [address] [place] [address] [place] [phone] District Recruiter: Luis A Peng MD #### HIVCMB, PHEP #### [address] [phone] District Recruiter: Alvino Davila MD RBC (Bld) [#/Vol] 4.69 10*6/uL Normal 3.95-5.11 [facility] Comment on above: Performed By: #### C P, HCG, CBC #### [facility] [address] [place] [address] [place] [phone] District Recruiter: Luis A Peng MD #### HIVCMB, PHEP #### [address] [place], [place] [phone] District Recruiter: Alvino Davila MD WBC (Bld) [#/Vol] 5.5 10*3/uL Normal 3.5-11.3 [facility] Comment on above: Performed By: #### C P, HCG, CBC #### [facility] [address] [place] [address] District Recruiter: Luis A Peng MD #### HIVCMB, PHEP #### [facility] [employer] [address] [place], [place] [phone] District Recruiter: Alvino Davila MD Erythrocyte distribution width (RBC) [Ratio] 12.7 % 11.8 - 14.4 % [place] Hematocrit (Bld) [Volume fraction] 39.2 % 36.3 - 47.1 % [place] Hemoglobin (Bld) [Mass/Vol] 12.3 g/dL 11.9 - 15.1 g/dL [place] MCH (RBC) [Entitic mass] 26.2 pg 25.2 - 33.5 pg [place] MCHC (RBC) [Mass/Vol] 31.4 g/dL 28.4 - 34.8 g/dL [place] MCV (RBC) [Entitic vol] 83.6 fL 82.6 - 102.9 fL [place] Platelet mean volume (Bld) [Entitic vol] 10.9 fL 8.1 - 13.5 fL [place], [place] Platelets (Bld) [#/Vol] 277 10*3/uL [place] RBC (Bld) [#/Vol] 4.69 10*6/uL 3.95 - 5.11 m/uL [place] WBC (Bld) [#/Vol] 5.5 10*3/uL [place] WBC (Bld) [#/Vol] 0.0 10*3/uL 0.0 per 100 WBC [place], [place] Comp Metabolic Profon 2019 (cont.) Normal [facility] Comment on above: Result Comment: Aver age GFR for 20-29 years old: 116 mL/min/1.73sq m Chronic Kidney Disease: <60 mL/min/1.73sq m Kidney failure: <15 mL/min/1.73sq m eGFR calculated using average adult body mass. Additional eGFR calculator available at: http://www.[employer]multiple_crcl_2012.htm Performed By: #### C P, HCG, CBC #### [facility] [address] [place] [address] [place] [address] District Recruiter: Luis A Peng MD #### HIVCMB, PHEP #### [address] [phone] District Recruiter: Alvino Davila MD Albumin [Mass/Vol] 3.4 g/dL Low 3.5-5.2 [facility] Comment on above: Performed By: #### C P, HCG, CBC #### [address] [place] [address] District Recruiter: Luis A Peng MD #### HIVCMB, PHEP #### [address] [phone] District Recruiter: Alvino Davila MD Albumin/Globulin [Mass ratio] 1.1 {ratio} Normal 1.0-2.5 [facility] Comment on above: Performed By: #### C P, HCG, CBC #### [address] [place] [address] District Recruiter: Luis A Peng MD #### HIVCMB, PHEP #### [address] [phone] District Recruiter: Alvino Davila MD Alkaline Phos 130 U/L High 35-104 [facility] Comment on above: Performed By: #### C P, HCG, CBC #### [address] [place] [phone] District Recruiter: Luis A Peng MD #### HIVCMB, PHEP #### [address] [phone] District Recruiter: Alvino Davila MD ALT [Catalytic activity/Vol] 33 U/L Normal 5-33 [facility] Comment on above: Performed By: #### C P, HCG, CBC #### [facility] [address] [place] [address] Dr. [place] [phone] District Recruiter: Luis A Peng MD #### HIVCMB, PHEP #### [address] [id number] District Recruiter: Alvino Davila MD Anion gap [Moles/Vol] 7 mmol/L Low 9-17 [facility] Comment on above: Performed By: #### C P, HCG, CBC #### [address] [place] [phone] District Recruiter: Luis A Peng MD #### HIVCMB, PHEP #### [address] [address] District Recruiter: Alvino Davila MD AST [Catalytic activity/Vol] 35 U/L High <32 [facility] Comment on above: Performed By: #### C P, HCG, CBC #### [address] [place] [phone] District Recruiter: Luis A Peng MD #### HIVCMB, PHEP #### [address] [phone] District Recruiter: Alvino Davila MD Bilirubin Ql (U) 0.16 mg/dL Low 0.3-1.2 [facility] Comment on above: Performed By: #### C P, HCG, CBC #### [address] [place] [phone] District Recruiter: Luis A Peng MD #### HIVCMB, PHEP #### [address] [phone] District Recruiter: Alvino Davila MD BUN/CRE Ratio 14 Normal 9-20 [facility] Comment on above: Performed By: #### C P, HCG, CBC #### [facility] [address] [place] [phone] District Recruiter: Luis A Peng MD #### HIVCMB, PHEP #### [address] [address] District Recruiter: Alvino Davila MD Calcium [Mass/Vol] 9.2 mg/dL Normal 8.6-10.4 [facility] Comment on above: Performed By: #### C P, HCG, CBC #### [address] [place] [id number] ( District Recruiter: Luis A Peng MD #### HIVCMB, PHEP #### [address] [address] District Recruiter: Alvino Davila MD Chloride [Moles/Vol] 99 mmol/L Normal 98-107 [facility] Comment on above: Performed By: #### C P, HCG, CBC #### [facility] [address] [place] [address] [place] [phone] District Recruiter: Luis A Peng MD #### HIVCMB, PHEP #### [address] [address] District Recruiter: Alvino Davila MD CO2 [Moles/Vol] 29 mmol/L Normal 20-31 [facility] Comment on above: Performed By: #### C P, HCG, CBC #### [facility] [address] [place] [address] Dr. [place] [phone] District Recruiter: Luis A Peng MD #### HIVCMB, PHEP #### [facility] [address] [place] [address] District Recruiter: Alvino Davila MD Creatinine [Mass/Vol] 0.63 mg/dL Normal 0.50-0.90 [facility] Comment on above: Performed By: #### C P, HCG, CBC #### [facility] [address] [place], [place] [phone] District Recruiter: Luis A Peng MD #### HIVCMB, PHEP #### [address] [address] District Recruiter: Alvino Davila MD GFR, Amer >60 Normal >60 [facility] Comment on above: Performed By: #### C P, HCG, CBC #### [facility] [address] [place], [place] [phone] District Recruiter: Luis A Peng MD #### HIVCMB, PHEP #### [address] [address] District Recruiter: Alvino Davila MD GFR,non Amer >60 Normal >60 [facility] Comment on above: Performed By: #### C P, HCG, CBC #### [facility] [address] [place], [place] [phone] District Recruiter: Luis A Peng MD #### HIVCMB, PHEP #### [address] [address] District Recruiter: Alvino Davila MD Glucose [Mass/Vol] 95 mg/dL Normal 70-99 [facility] Comment on above: Performed By: #### C P, HCG, CBC #### [facility] [address] [place], [place] [phone] District Recruiter: Luis A Peng MD #### HIVCMB, PHEP #### [address] [address] District Recruiter: Alvino Davila MD Potassium [Moles/Vol] 4.3 mmol/L Normal 3.7-5.3 [facility] Comment on above: Performed By: #### C P, HCG, CBC #### [facility] [address] [place] [address] [place]. [place], [place] [phone] District Recruiter: Luis A Peng MD #### HIVCMB, PHEP #### [address] [address] District Recruiter: Alvino Davila MD Protein [Mass/Vol] 6.5 g/dL Normal 6.4-8.3 [facility] Comment on above: Performed By: #### C P, HCG, CBC #### [address] [place], [place] [phone] District Recruiter: Luis A Peng MD #### HIVCMB, PHEP #### [address] [phone] District Recruiter: Alvino Davila MD Sodium [Moles/Vol] 135 mmol/L Normal 135-144 [facility] Comment on above: Performed By: #### C P, HCG, CBC #### [address] [place], [place] [phone] District Recruiter: Luis A Peng MD #### HIVCMB, PHEP #### [address] [address] District Recruiter: Alvino Davila MD Staging: Normal [facility] Comment on above: Result Comment: Stag e 1: Some kidney damage normal GFR Stage 2: Mild kidney damage GFR 60-89 Stage 3: Moderate kidney damage GFR 30-59 Stage 4: Severe kidney damage GFR 15-29 Stage 5: Severe kidney damage GFR <15 ESRD - chronic treatment by dialysis or transplant Performed By: #### C P, HCG, CBC #### [address] [place] [address] District Recruiter: Luis A Peng MD #### HIVCMB, PHEP #### [facility] [address] [place] [address] District Recruiter: Avlino Davila MD Urea nitrogen [Mass/Vol] 9 mg/dL Normal 6-20 [facility] Comment on above: Performed By: #### C P, HCG, CBC #### [facility] [address] [place] [address] District Recruiter: Luis A Peng MD #### HIVCMB, PHEP #### [facility] [address] [place] [address] District Recruiter: Alvino Davila MD Comprehensive Metabolic Pane [facility] 05-30-2020 Albumin [Mass/Vol] 3.4 g/dL Low 3.5 - 5.2 g/dL [place], [place] Albumin/Globulin [Mass ratio] 1.1 {ratio} [place], [place] ALP [Catalytic activity/Vol] 130 U/L High 35 - 104 U/L [place] ALT [Catalytic activity/Vol] 33 U/L 5 - 33 U/L [place] Anion gap [Moles/Vol] 7 mmol/L Low 9 - 17 mmol/L [place] AST [Catalytic activity/Vol] 35 U/L High <32 [place] Bilirubin Ql (U) 0.16 mg/dL Low 0.3 - 1.2 mg/dL [place], [place] Bun/Cre Ratio 14 [place], [place] Calcium [Mass/Vol] 9.2 mg/dL 8.6 - 10.4 mg/dL [place] Chloride [Moles/Vol] 99 mmol/L 98 - 107 mmol/L [place] CO2 [Moles/Vol] 29 mmol/L 20 - 31 mmol/L [place] Creatinine [Mass/Vol] 0.63 mg/dL 0.5 - 0.9 mg/dL [place] GFR >60 >60 mL/min [place], [place] GFR Non- >60 >60 mL/min [place] Glucose [Mass/Vol] 95 mg/dL 70 - 99 mg/dL [place], [place] Interpretation and review of laboratory results Abnormal [place] Potassium [Moles/Vol] 4.3 mmol/L 3.7 - 5.3 mmol/L [place] Protein [Mass/Vol] 6.5 g/dL 6.4 - 8.3 g/dL [place] Sodium [Moles/Vol] 135 mmol/L 135 - 144 mmol/L [place] Urea nitrogen [Mass/Vol] 9 mg/dL 6 - 20 mg/dL [place] HCG Qualitative, Serumon hCG Qual Negative NEGATIVE [place] Comment on above: Specimens with hCG l evels near the threshold of the test (25 mIU/mL) may give a negative or indeterminate result. In such cases, another test should be performed with a new specimen in 48-72 hours. If early is suspected clinically in this setting, correlation with quantitative serum b-hCG level is suggested. [facility] has confirmed the use of plasma for this test. This has not been cleared or approved by the U.S. Food and Drug Administration. The FDA has determined that such clearance is not necessary. HCG Screen, Bloodon 05-30-20 20 HCG Qn Negative Normal NEG [facility] Comment on above: Result Comment: Spec imens with hCG levels near the threshold of the test (25 mIU/mL) may give a negative or indeterminate result. In such cases, another test should be performed with a new specimen in 48-72 hours. If early is suspected clinically in this setting, correlation with quantitative serum b-hCG level is suggested. [facility] has confirmed the use of plasma for this test. This has not been cleared or approved by the U.S. Food and Drug Administration. The FDA has determined that such clearance is not necessary. Performed By: #### C P, HCG, CBC #### [facility] [address] [place] [address] District Recruiter: Luis A Peng MD #### HIVCMB, PHEP #### [facility] [address] [place] [address] District Recruiter: Alvino Davila MD HIV Ag/Abon 05-30-2020 HIV Ag/Ab NONREACTIVE Normal [facility] Comment on above: Result Comment: No l aboratory evidence of HIV infection. If acute HIV infection is suspected, consider testing for HIV-1 RNA. Performed By: #### C P, HCG, CBC #### [address] [place], [place] [phone] District Recruiter: Luis A Peng MD #### HIVCMB, PHEP #### [facility] [address] [place] [address] District Recruiter: Alvino Davila MD HIV Screenon 05-30-2020 HIV Ag/Ab NONREACTIVE NONREACTIVE [place] Comment on above: No laboratory eviden ce of HIV infection. If acute HIV infection is suspected, consider testing for HIV-1 RNA. Hepatitis Acute [facility] 05-30 Hep A Ab,IgM NONREACTIVE Normal [facility] [facility] Comment on above: Performed By: #### C P, HCG, CBC #### [address] [place], [place] [id number] District Recruiter: Luis A Peng MD #### HIVCMB, PHEP #### [facility] [address] [place] [address] District Recruiter: Alvino Davila MD Hep B Core Ab,IgM NONREACTIVE Normal [facility] Comment on above: Performed By: #### C P, HCG, CBC #### [address] [place], [place] [id number] District Recruiter: Luis A Peng MD #### HIVCMB, PHEP #### [facility] [address] [place] [address] District Recruiter: Alvino Davila MD Hep B Surf Ag NONREACTIVE Normal [facility] Comment on above: Performed By: #### C P, HCG, CBC #### [facility] [address] [place], [place] [phone] District Recruiter: Luis A Peng MD #### HIVCMB, PHEP #### [address] [place], [place] [phone] District Recruiter: Alvino Davila MD Hep C Ab NONREACTIVE Normal NR [facility] Comment on above: Result Comment: The hepatitis C procedure used in our laboratory is a Chemiluminescent test specific for three recombinant HCV antigens. A negative anti-HCV result indicates that the antibodies to hepatitis C virus are not present at this time. Individuals with reactive anti-HCV should be considered infected and infectious until proven otherwise. Confirmation of all equivocal or reactive results is recommended by ordering HCV RNA by PCR. Performed By: #### C P, HCG, CBC #### [facility] [address] [place], [place] [phone] District Recruiter: Luis A Peng MD #### HIVCMB, PHEP #### [address] [place], [place] [phone] District Recruiter: Alvino Davila MD Hepatitis Panel, Acuteon HAV IgM IA Qn (S) NONREACTIVE NONREACTIVE [place], [place] Hep B Core Ab, IgM NONREACTIVE NONREACTIVE [place], [place] Hepatitis B Surface Ag NONREACTIVE NONREACTIVE [place] Hepatitis C Ab NONREACTIVE NONREACTIVE [place], [place] Comment on above: The hepatitis C procedure used in our laboratory is a Chemiluminescent test specific for three recombinant HCV antigens. A negative anti-HCV result indicates that the antibodies to hepatitis C virus are not present at this time. Individuals with reactive anti-HCV should be considered infected and infectious until proven otherwise. Confirmation of all equivocal or reactive results is recommended by ordering HCV RNA by PCR. Metabolic Panelon 05-30-2020 GFR/1.73 sq M predicted among non-blacks MDRD (S/P/Bld) [Vol rate/Area] [place], [place] Comment on above: Stage 1: Some kidney damage normal GFR Stage 2: Mild kidney damage GFR 60-89 Stage 3: Moderate kidney damage GFR 30-59 Stage 4: Severe kidney damage GFR 15-29 Stage 5: Severe kidney damage GFR <15 ESRD - chronic treatment by dialysis or transplant Average GFR for 20-2 9 years old: 116 mL/min/1.73sq m Chronic Kidney Disease: <60 mL/min/1.73sq m Kidney failure: <15 mL/min/1.73sq m eGFR calculated using average adult body mass. Additional eGFR calculator available at: http://www.Primo Round.B5M.COM/multiple_crcl_2012.htm CBCon 01-01-2020 Erythrocyte distribution width (RBC) [Ratio] 12.5 % Normal 11.8-14.4 [facility] Comment on above: Performed By: #### P HEP, HIVCMB #### [address] [id number] District Recruiter: Alvino Davila MD #### CP, CBC, HCG #### [address] [place] [phone] District Recruiter: Luis A Peng MD Hematocrit (Bld) [Volume fraction] 40.2 % Normal 36.3-47.1 [facility] Comment on above: Performed By: #### P HEP, HIVCMB #### [address] [id number] District Recruiter: Alvino Davila MD #### LAURA, CBC, HCG #### [address] [place] [phone] District Recruiter: Luis A Peng MD Hemoglobin (Bld) [Mass/Vol] 13.1 g/dL Normal 11.9-15.1 [facility] Comment on above: Performed By: #### P HEP, HIVCMB #### [address] [phone] District Recruiter: Alvino Davila MD #### CP, CBC, HCG #### [address] [place] [address] District Recruiter: Luis A Peng MD MCH (RBC) [Entitic mass] 28.4 pg Normal 25.2-33.5 [facility] Comment on above: Performed By: #### P HEP, HIVCMB #### [address] [id number] District Recruiter: Alvino Davila MD #### CP, CBC, HCG #### [address] [place] [phone] District Recruiter: Luis A Peng MD MCHC (RBC) [Mass/Vol] 32.6 g/dL Normal 28.4-34.8 [facility] Comment on above: Performed By: #### P HEP, HIVCMB #### [address] [id number] District Recruiter: Alvino Davila MD #### CP, CBC, HCG #### [address] [place] [phone] District Recruiter: Luis A Peng MD MCV (RBC) [Entitic vol] 87.2 fL Normal 82.6-102.9 [facility] Comment on above: Performed By: #### P HEP, HIVCMB #### [address] [id number] District Recruiter: Alvino Davila MD #### CP, CBC, HCG #### [address] [place] [phone] District Recruiter: Luis A Peng MD NRBC Automated 0.0 per 100 WBC Normal 0.0 [facility] Comment on above: Performed By: #### P HEP, HIVCMB #### [address] [id number] District Recruiter: Alvino Davila MD #### CP, CBC, HCG #### [address] [place] [address] District Recruiter: Luis A Peng MD Platelet mean volume (Bld) [Entitic vol] 11.2 fL Normal 8.1-13.5 [facility] Comment on above: Performed By: #### P HEP, HIVCMB #### [address] [address] District Recruiter: Alvino Davila MD #### CP, CBC, HCG #### [address] [place] [id number] District Recruiter: Luis A Peng MD Platelets (Bld) [#/Vol] 241 10*3/uL Normal 138-453 [facility] Comment on above: Performed By: #### P HEP, HIVCMB #### [address] [id number] District Recruiter: Alvino Davila MD #### CP, CBC, HCG #### [place] [phone] District Recruiter: Luis A Peng MD RBC (Bld) [#/Vol] 4.61 10*6/uL Normal 3.95-5.11 [facility] Comment on above: Performed By: #### P HEP, HIVCMB #### [address] [address] District Recruiter: Alvino Davila MD #### CP, CBC, HCG #### [address] [place] [address] District Recruiter: Luis A Peng MD WBC (Bld) [#/Vol] 9.0 10*3/uL Normal 3.5-11.3 [facility] Comment on above: Performed By: #### P HEP, HIVCMB #### [address] [id number] District Recruiter: Alvino Davila MD #### CP, CBC, HCG #### [address] [place] [address] District Recruiter: Luis A Peng MD Erythrocyte distribution width (RBC) [Ratio] 12.5 % 11.8 - 14.4 % [place], [place] Hematocrit (Bld) [Volume fraction] 40.2 % 36.3 - 47.1 % [place] Hemoglobin (Bld) [Mass/Vol] 13.1 g/dL 11.9 - 15.1 g/dL [place] MCH (RBC) [Entitic mass] 28.4 pg 25.2 - 33.5 pg [place] MCHC (RBC) [Mass/Vol] 32.6 g/dL 28.4 - 34.8 g/dL [place] MCV (RBC) [Entitic vol] 87.2 fL 82.6 - 102.9 fL [place] Platelet mean volume (Bld) [Entitic vol] 11.2 fL 8.1 - 13.5 fL [place], [place] Platelets (Bld) [#/Vol] 241 10*3/uL [place] RBC (Bld) [#/Vol] 4.61 10*6/uL 3.95 - 5.11 m/uL [place] WBC (Bld) [#/Vol] 0.0 10*3/uL 0.0 per 100 WBC M [place] WBC (Bld) [#/Vol] 9.0 10*3/uL [place] Comp Metabolic Profon 2019 (cont.) Normal [facility] Comment on above: Result Comment: Aver age GFR for 20-29 years old: 116 mL/min/1.73sq m Chronic Kidney Disease: <60 mL/min/1.73sq m Kidney failure: <15 mL/min/1.73sq m eGFR calculated using average adult body mass. Additional eGFR calculator available at: http://www.Primo Round.B5M.COM/multiple_crcl_2012.htm Performed By: #### P HEP, HIVCMB #### [facility] [address] [place] [address] District Recruiter: Alvino Davila MD #### CP, CBC, HCG #### [facility] [address] [place] [address] District Recruiter: Luis A Peng MD Albumin [Mass/Vol] 4.2 g/dL Normal 3.5-5.2 [facility] Comment on above: Performed By: #### P HEP, HIVCMB #### [address] [address] District Recruiter: Alvino Davila MD #### CP, CBC, HCG #### [facility] [address] [place] [address] [place] [phone] District Recruiter: Luis A Peng MD Albumin/Globulin [Mass ratio] 1.7 {ratio} Normal 1.0-2.5 [facility] Comment on above: Performed By: #### P HEP, HIVCMB #### [address] [address] District Recruiter: Alvino Davila MD #### CP, CBC, HCG #### [facility] [address] [place] [address] Dr[place] [phone] District Recruiter: Luis A Peng MD Alkaline Phos 69 U/L Normal 35-104 [facility] Comment on above: Performed By: #### P HEP, HIVCMB #### [address] [address] District Recruiter: Alvino Davila MD #### CP, CBC, HCG #### [facility] [address] [place] [phone] District Recruiter: Luis A Peng MD ALT [Catalytic activity/Vol] 78 U/L High 5-33 [facility] Comment on above: Performed By: #### P HEP, HIVCMB #### [address] [address] District Recruiter: Alvino Davila MD #### CP, CBC, HCG #### [facility] [address] [place], [place] [phone] District Recruiter: Luis A Peng MD Anion gap [Moles/Vol] 9 mmol/L Normal 9-17 [facility] Comment on above: Performed By: #### P HEP, HIVCMB #### [facility] [address] [place] [address] District Recruiter: Alvino Davila MD #### CP, CBC, HCG #### [facility] [address] [place], [place] [phone] District Recruiter: Luis A Peng MD AST [Catalytic activity/Vol] 44 U/L High <32 [facility] Comment on above: Performed By: #### P HEP, HIVCMB #### [facility] [address] [place] [address] District Recruiter: Alvino Davila MD #### CP, CBC, HCG #### [facility] [address] [place], [place] 4381683 District Recruiter: Luis A Peng MD Bilirubin Ql (U) 0.15 mg/dL Low 0.3-1.2 [facility] Comment on above: Performed By: #### P HEP, HIVCMB #### [facility] [address] [place] [address] District Recruiter: Alvino Davila MD #### CP, CBC, HCG #### [facility] [address] [place], [place] [phone] District Recruiter: Luis A Peng MD BUN/CRE Ratio 20 Normal 9-20 [facility] Comment on above: Performed By: #### P HEP, HIVCMB #### [facility] [address] [place] [address] District Recruiter: Alvino Davila MD #### CP, CBC, HCG #### [facility] [address] [place] [address] [place], [place] [phone] District Recruiter: Luis A Peng MD Calcium [Mass/Vol] 9.4 mg/dL Normal 8.6-10.4 [facility] Comment on above: Performed By: #### P HEP, HIVCMB #### [address] [address] District Recruiter: Alvino Davila MD #### CP, CBC, HCG #### [address] [place], [place] [phone] District Recruiter: Luis A Peng MD Chloride [Moles/Vol] 97 mmol/L Low 98-107 [facility] Comment on above: Performed By: #### P HEP, HIVCMB #### [address] [address] District Recruiter: Alvino Davila MD #### CP, CBC, HCG #### [address] [place], [place] [phone] District Recruiter: Luis A Peng MD CO2 [Moles/Vol] 28 mmol/L Normal 20-31 [facility] Comment on above: Performed By: #### P HEP, HIVCMB #### [address] [address] District Recruiter: Alvino Davila MD #### CP, CBC, HCG #### [address] [place], [place] [phone] District Recruiter: Luis A Peng MD Creatinine [Mass/Vol] 0.55 mg/dL Normal 0.50-0.90 [facility] Comment on above: Performed By: #### P HEP, HIVCMB #### [address] [address] District Recruiter: Alvino Davila MD #### CP, CBC, HCG #### [address] [place], [place] [phone] District Recruiter: Luis A Peng MD GFR, Amer >60 Normal >60 [facility] Comment on above: Performed By: #### P HEP, HIVCMB #### [address] [id number] District Recruiter: Alvino Davila MD #### CP, CBC, HCG #### [address] [place] [address] District Recruiter: Luis A Peng MD GFR,non Amer >60 Normal >60 [facility] Comment on above: Performed By: #### P HEP, HIVCMB #### [address] [address] District Recruiter: Alvino Davila MD #### CP, CBC, HCG #### [address] [place] [address] District Recruiter: Luis A Peng MD Glucose [Mass/Vol] 85 mg/dL Normal 70-99 [facility] Comment on above: Performed By: #### P HEP, HIVCMB #### [address] [address] District Recruiter: Alvino Davila MD #### CP, CBC, HCG #### [address] [place] [phone] District Recruiter: Luis A Peng MD Potassium [Moles/Vol] 4.3 mmol/L Normal 3.7-5.3 [facility] Comment on above: Performed By: #### P HEP, HIVCMB #### [address] [address] District Recruiter: Alvino Davila MD #### CP, CBC, HCG #### [address] [place] [address] District Recruiter: Luis A Peng MD Protein [Mass/Vol] 6.7 g/dL Normal 6.4-8.3 [facility] Comment on above: Performed By: #### P HEP, HIVCMB #### [address] [address] District Recruiter: Alvino Davila MD #### CP, CBC, HCG #### [address] [place] [address] District Recruiter: Luis A Peng MD Sodium [Moles/Vol] 134 mmol/L Low 135-144 [facility] Comment on above: Performed By: #### P HEP, HIVCMB #### [address] [address] District Recruiter: Alvino Davila MD #### CP, CBC, HCG #### [address] [place] [phone] District Recruiter: Luis A Peng MD Staging: Normal [facility] Comment on above: Result Comment: Stag e 1: Some kidney damage normal GFR Stage 2: Mild kidney damage GFR 60-89 Stage 3: Moderate kidney damage GFR 30-59 Stage 4: Severe kidney damage GFR 15-29 Stage 5: Severe kidney damage GFR <15 ESRD - chronic treatment by dialysis or transplant Performed By: #### P HEP, HIVCMB #### [address] [address] District Recruiter: Alvino Davila MD #### CP, CBC, HCG #### [address] [place] [address] District Recruiter: Luis A Peng MD Urea nitrogen [Mass/Vol] 11 mg/dL Normal 6-20 [facility] Comment on above: Performed By: #### P HEP, HIVCMB #### [address] [address] District Recruiter: Alvino Davila MD #### CP, CBC, HCG #### [address] [place] [address] District Recruiter: Luis A Peng MD Comprehensive Metabolic Pane liu 01-01-2020 Albumin [Mass/Vol] 4.2 g/dL 3.5 - 5.2 g/dL [place], [place] Albumin/Globulin [Mass ratio] 1.7 {ratio} [place], [place] ALP [Catalytic activity/Vol] 69 U/L 35 - 104 U/L [place] ALT [Catalytic activity/Vol] 78 U/L High 5 - 33 U/L [place] Anion gap [Moles/Vol] 9 mmol/L 9 - 17 mmol/L [place] AST [Catalytic activity/Vol] 44 U/L High <32 [place] Bilirubin Ql (U) 0.15 mg/dL Low 0.3 - 1.2 mg/dL [place], [place] Bun/Cre Ratio 20 [place], [place] Calcium [Mass/Vol] 9.4 mg/dL 8.6 - 10.4 mg/dL [place] Chloride [Moles/Vol] 97 mmol/L Low 98 - 107 mmol/L [place] CO2 [Moles/Vol] 28 mmol/L 20 - 31 mmol/L [place] Creatinine [Mass/Vol] 0.55 mg/dL 0.5 - 0.9 mg/dL [place] GFR >60 >60 mL/min [place] GFR Non- >60 >60 mL/min [place] Glucose [Mass/Vol] 85 mg/dL 70 - 99 mg/dL [place], [place] Interpretation and review of laboratory results Abnormal [place] Potassium [Moles/Vol] 4.3 mmol/L 3.7 - 5.3 mmol/L [place] Protein [Mass/Vol] 6.7 g/dL 6.4 - 8.3 g/dL [place], [place] Sodium [Moles/Vol] 134 mmol/L Low 135 - 144 mmol/L [place] Urea nitrogen [Mass/Vol] 11 mg/dL 6 - 20 mg/dL [place] HCG Qualitative, Serumon hCG Qual Negative NEGATIVE [place] Comment on above: Specimens with hCG l evels near the threshold of the test (25 mIU/mL) may give a negative or indeterminate result. In such cases, another test should be performed with a new specimen in 48-72 hours. If early is suspected clinically in this setting, correlation with quantitative serum b-hCG level is suggested. [facility] has confirmed the use of plasma for this test. This has not been cleared or approved by the U.S. Food and Drug Administration. The FDA has determined that such clearance is not necessary. HCG Screen, Bloodon 01-01-20 20 HCG Qn Negative Normal NEG [facility] Comment on above: Result Comment: Spec imens with hCG levels near the threshold of the test (25 mIU/mL) may give a negative or indeterminate result. In such cases, another test should be performed with a new specimen in 48-72 hours. If early is suspected clinically in this setting, correlation with quantitative serum b-hCG level is suggested. [facility] has confirmed the use of plasma for this test. This has not been cleared or approved by the U.S. Food and Drug Administration. The FDA has determined that such clearance is not necessary. Performed By: #### P HEP, HIVCMB #### [address] [place] [address] District Recruiter: Alvino Davila MD #### CP, CBC, HCG #### [facility] [address] [place] [address] District Recruiter: Luis A Peng MD HIV Ag/Abon 01-01-2020 HIV Ag/Ab NONREACTIVE Normal NR [facility] Comment on above: Result Comment: No l aboratory evidence of HIV infection. If acute HIV infection is suspected, consider testing for HIV-1 RNA. Performed By: #### P HEP, HIVCMB #### [address] [place] [address] District Recruiter: Alvino Davila MD #### CP, CBC, HCG #### [address] [place], [place] [phone] District Recruiter: Luis A Peng MD HIV Screenon 01-01-2020 HIV Ag/Ab NONREACTIVE NONREACTIVE [place] Comment on above: No laboratory eviden ce of HIV infection. If acute HIV infection is suspected, consider testing for HIV-1 RNA. Hepatitis Acute [facility] 12-31 Hep A Ab,IgM NONREACTIVE Normal [facility] Comment on above: Performed By: #### P HEP, HIVCMB #### [address] [address] District Recruiter: Alvino Davila MD #### CP, CBC, HCG #### [address] [place], [place] [phone] District Recruiter: Luis A Peng MD Hep B Core Ab,IgM NONREACTIVE Normal [facility] Comment on above: Performed By: #### P HEP, HIVCMB #### [address] [address] District Recruiter: Alvino Davila MD #### CP, CBC, HCG #### [address] [place], [place] 6921383 District Recruiter: Luis A Peng MD Hep B Surf Ag NONREACTIVE Normal [facility] Comment on above: Performed By: #### P HEP, HIVCMB #### [address] [address] District Recruiter: Alvino Davila MD #### CP, CBC, HCG #### [address] [place] [address] District Recruiter: Luis A Peng MD Hep C Ab NONREACTIVE [facility] Comment on above: Result Comment: The hepatitis C procedure used in our laboratory is a Chemiluminescent test specific for three recombinant HCV antigens. A negative anti-HCV result indicates that the antibodies to hepatitis C virus are not present at this time. Individuals with reactive anti-HCV should be considered infected and infectious until proven otherwise. Confirmation of all equivocal or reactive results is recommended by ordering HCV RNA by PCR. Performed By: #### P HEP, HIVCMB #### [facility] [address] [place] [address] District Recruiter: Alvino Davila MD #### CP, CBC, HCG #### [facility] [address] [place] [address] District Recruiter: Luis A Peng MD Hepatitis Panel, Acuteon HAV IgM IA Qn (S) NONREACTIVE NONREACTIVE [place] Hep B Core Ab, IgM NONREACTIVE NONREACTIVE [facility], [place] Hepatitis B Surface Ag NONREACTIVE NONREACTIVE [place] Hepatitis C Ab NONREACTIVE NONREACTIVE [place], [place] Comment on above: The hepatitis C procedure used in our laboratory is a Chemiluminescent test specific for three recombinant HCV antigens. A negative anti-HCV result indicates that the antibodies to hepatitis C virus are not present at this time. Individuals with reactive anti-HCV should be considered infected and infectious until proven otherwise. Confirmation of all equivocal or reactive results is recommended by ordering HCV RNA by PCR. Metabolic Panelon 01-01-2020 GFR/1.73 sq M predicted among non-blacks MDRD (S/P/Bld) [Vol rate/Area] [place], [place] Comment on above: Stage 1: Some kidney damage normal GFR Stage 2: Mild kidney damage GFR 60-89 Stage 3: Moderate kidney damage GFR 30-59 Stage 4: Severe kidney damage GFR 15-29 Stage 5: Severe kidney damage GFR <15 ESRD - chronic treatment by dialysis or transplant Average GFR for 20-2 9 years old: 116 mL/min/1.73sq m Chronic Kidney Disease: <60 mL/min/1.73sq m Kidney failure: <15 mL/min/1.73sq m eGFR calculated using average adult body mass. Additional eGFR calculator available at: http://www.Primo Round.B5M.COM/multiple_crcl_2012.htm Encounters Encounter Date Encounter Type Care Provider Facility Start: 12-10-2022 End: 12-10-[address] JOYCE MORRELL Facility:[facility] Start: 09-02-2022 End: 09-03-2022 ambulatory ROMEO GAR Facility:[facility] Start: 07-29-2022 End: 07-29-2022 ambulatory LUCINA MARCELINO Facility:[facility] Start: 07-11-2022 End: 07-12-[address] BROOKE STEWART Facility:[facility] Start: 06-15-2022 End: 06-15-[address] JOYCE MORRELL Facility:[facility] Start: 05-11-2022 End: 05-11-[address] MALLY POTTER Facility:[facility] Start: 03-27-2021 End: 03-28-2021 ambulatory Rody Monk MD Facility:[facility] Start: 12-06-2020 End: 12-07-2020 Patient encounter procedure [facility] Start: 12-06-2020 End: 12-06-2020 Subsequent hospital visit by physician [facility] Start: 11-11-2020 End: 11-12-2020 Patient encounter procedure [facility] Start: 05-30-2020 End: 05-31-2020 Patient encounter procedure [facility] Start: 05-30-2020 End: 05-30-2020 Subsequent hospital visit by physician [facility] Start: 01-01-2020 End: 01-02-2020 Patient encounter procedure [facility] Start: 01-01-2020 End: 01-01-2020 Subsequent hospital visit by physician [facility] Start: 09-20-2018 End: 09-21-2018 Patient encounter procedure Sidney Nava Facility:[id number] Procedures Date Procedure Procedure Detail Performing Clinician Start: 12-06-2020 Acute hepatitis panel E estela Fritz Work Phone: Start: 12-06-2020 Antibody hiv-1&hiv-2 single result Malini Fritz Work Phone: Start: 12-06-2020 Blood count complete automated Malini Fritz Work Phone: Start: 12-06-2020 Comprehensive metabo lic panel Malini Fritz Work Phone: Start: 12-06-2020 Gonadotropin chorion ic qualitative Malini Catrina Work Phone: Start: 05-30-2020 Acute hepatitis panel E RNEST CATRINA Start: 05-30-2020 Antibody hiv-1&hiv-2 single result MALINI CATRINA Start: 05-30-2020 Blood count complete automated MALINI CATRINA Start: 05-30-2020 Comprehensive metabo lic panel MALINI CATRINA Start: 05-30-2020 Gonadotropin chorion ic qualitative MALINI CATRINA Start: 05-30-2020 Acute hepatitis panel E rnest Catrina Work Phone: Start: 05-30-2020 Antibody hiv-1&hiv-2 single result Malini Catrina Work Phone: Start: 05-30-2020 Blood count complete automated Malnii Catrina Work Phone: Start: 05-30-2020 Comprehensive metabo lic panel Malini Catrina Work Phone: Start: 05-30-2020 Gonadotropin chorion ic qualitative Malini Catrina Work Phone: Start: 01-01-2020 Acute hepatitis panel E RNEST CATRINA Start: 01-01-2020 Antibody hiv-1&hiv-2 single result MALINI CATRINA Start: 01-01-2020 Blood count complete automated MALINI CATRINA Start: 01-01-2020 Comprehensive metabo lic panel MALINI CATRINA Start: 01-01-2020 Gonadotropin chorion ic qualitative MALINI CATRINA Start: 01-01-2020 Acute hepatitis panel E rnest Catrina Work Phone: Start: 01-01-2020 Antibody hiv-1&hiv-2 single result Malini Catrina Work Phone: Start: 01-01-2020 Blood count complete automated Malini Catrina Work Phone: Start: 01-01-2020 Comprehensive metabo lic panel Malini Catrina Work Phone: Start: 01-01-2020 Gonadotropin chorion ic qualitative Malini Catrina Work Phone: Plan of Treatment Date Care Activity Detail Author Start: 07-02-2020 Influenza vaccination Flu vaccine (# 1) [facility] [place] Payers Date Payer Category Payer Unknown 2019 Unknown [facility] HEALTH [facility] xxxxxxxxxxxx 2019-Present [phone] [address] [place] [address] xxxxxxxxxxxx [id number] 2019 Unknown [facility] HEALTH PLAN [facility] [id number] 2019-Present [phone] [address] [place] [address] [id number] .[id number] 1992 Unknown [id number] 2.16.840.1.185438.3.579.2.173 1992 Unknown [id number] 2.16.840.1.133130.3.579.2.173 1992 Unknown [id number] 2.16.840.1.141658.3.579.2.173 1992 Unknown [id number] 2.16.840.1.662047.3.579.2.173 1992 Unknown [id number] 2.16.840.1.881053.3.579.2.196 1992 Unknown [id number] 2.16.840.1.334732.3.579.2.593 1992 Unknown [id number] 2.16.840.1.264136.3.579.2.593 1992 Unknown [id number] 2.16.840.1.132050.3.579.2.593 1992 Unknown [id number] 2.16.840.1.784141.3.579.2.593 1992 Unknown [id number] 2.16.840.1.053473.3.579.2.593 1992 Unknown [id number] 2.16.840.1.629906.3.579.2.593 1959 Unknown [id number] Social History Date Type Detail Facility Tobacco smoking status NHIS Unknown if ev er smoked [facility] JESSENIA Sex Assigned At Not on file [facility] JESSENIA Summary Purpose Family History No Family History Records FoundNo Family History Records FoundNo Family History Records FoundNo Family History Records Found Advance Directives No Advanced Directives Records FoundDocuments on File Type Date Recorded 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 Advance Directives and Living Will Power of Rn Psychiatric Documents on File Type Date Recorded 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 ACP-Advance Directive ACP-Power of Rn Psychiatric Additional Source Comments INFORMATION SOURCE (unrecogn ized section and content) DATE CREATED AUTHOR 10/10/2018 [facility] DATE CREATED AUTHOR AUTHOR'S ORGANIZ ATION 12/06/2020 [facility]ital DATE CREATED AUTHOR AUTHOR'S ORGANIZ ATION 03/29/2021 [facility] DATE CREATED AUTHOR AUTHOR'S ORGANIZ ATION 12/10/2022 [facility] pital FOR RECORDS PERTAINING TO PATIENTS WHO ARE OR HAVE BEEN ENROLLED IN A CHEMICAL DEPENDENCY/SUBSTANCEABUSE PROGRAM, SOME INFORMATION MAY BE OMITTED. This clinical summary was aggregated from multiple sources. Caution should be exercised in using it in the provision of clinical care. This summary normalizes information from multiple sources, and as a consequence, information in this document may materially change the coding, format and clinical context of patient data. In addition, data may be omitted in some cases. CLINICAL DECISIONS SHOULD BE BASED ON THE PRIMARY CLINICAL RECORDS. [employer] provides no warranty or guarantee of the accuracy or completeness of information in this document.
== END 2023-10-20 21:32 | disposition home or self-care (01) ==
LOC: ER 21:22
PROVIDERS: Emergency Provider Emergency Medicine; PCP Nurse Practitioner Family
DX: K08.89 Other specified disorders of teeth and supporting structures (principal); Z79.899 Other long term (current) drug therapy; F17.210 Nicotine dependence, cigarettes, uncomplicated; F11.20 Opioid dependence, uncomplicated
CPT/HCPCS: 99283

== ENCOUNTER 2024-07-10 12:27 | Outpatient (REF) | payer OTHER, SELFPAY ==
--- OUTSIDE RECORDS SUMMARY | 2024-07-10 12:39 | XMS_ITS | CCD ---
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 Role Phone Sidney Nava Unavailable Unavailable Unavailable Primary Care Provider Unavailabl e Unavailable Primary Care Provider Unavailabl e MALINI FRITZ Referring Unavailable CATRINA, MALINI Referring Unavailable CATRINAMALINI Referring Unavailable CATRINAMALINI Referring Unavailable Lacho BRINK, Rody Ross Attending Unavailable PETROS, DR COOK Admitting Unavailable REQUEST, NONE LISTED Primary Care Unavaila ble PETROS, DR COOK Consulting Unavailable KARASIK, DR COOK [...] Unavailable REQUEST, NONE LISTED Primary Care Unavaila CRISTHIAN Beckett Consulting Unavailable PAY, DR BAL Attending Unavailable REQUEST, NONE LISTED Primary Care Unavaila ble KARASICandelaria, DR COOK Consulting Unavailable KARASIK, DR COOK Attending Unavailable KARASIK, DR COOK Admitting Unavailable ZIEBER, DR MAYUR Noriega Consulting Unavailable Allergies Allergy Classification Reported Allergen(s) Allergy Type Date of Onset Reaction(s) Facility (1 source) Penicillins Drug allergy (disorder) 04-10-2013 [facility] Repository Problems Active Problems Problem Classification Problem [...] 07-31-2022 Episodic Other aftercare (5 sources) Other intermodal customer service (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 therapy; Translations: [OTH CARE HOME CURRENT DRUG THERAPY] Onset: 07-31-2022 Episodic Other [...] ity COMPLIANCE DRUG SCREENon PDF . Normal [facility] Comment on above: Performed By: #### D SDOALC #### [facility] [address] [address] [address] Roberto Parmar Summary FINAL Normal [facility] Comment on above: Result Comment: === TOXASSURE [...] is an expected metabolite of dextromethorphan, an eciw-lsa-ywrrfyu or prescription cough suppressant. Levorphanol is a scheduled prescription medication. Dextrorphan cannot be distinguished from levorphanol by the method used for analysis. Guaifenesin PRESENT UNEXPECTED Guaifenesin may be administered as an znio-psb-nlvwbva or prescription drug; it may also be [...] === Performed By: #### D SDOALC #### [facility] [address] [place] [address] Dr. Roberto Parmar URIC ACID RAND URINEon 09-03 Uric Acid, Urine 12.4 mg/dL Normal Not Estab. [facility] Comment on above: Performed By: #### U RICUR #### [facility] [address] [address] [address] Roberto Parmar DRUG SCREEN RAPID (URINE)on 09-02-2022 AMP Negative Normal NEGATIVE [facility] Comment on above: Performed By: #### D RUGRPD #### [facility] [address] [place] [address] Dr. Roberto Parmar BAR Negative Normal NEGATIVE [facility] Comment on above: Performed By: #### D RUGRPD #### [facility] [address] [address] [address] Roberto Parmar BUP Positive Abnormal NEGATIVE [facility] Comment on above: Performed By: #### D RUGRPD #### [facility] [address] [place] [address] Dr. Roberto Parmar BZO Positive Abnormal NEGATIVE [facility] Comment on above: Performed By: #### D RUGRPD #### [facility] [address] [address] [address] Roberto Parmar BRITTANY Negative Normal NEGATIVE [facility] Comment on above: Performed By: #### D RUGRPD #### [facility] [address] [place] [address] Dr. Roberto Parmar CUT-OFFS SEE BELOW Normal [facility] Comment on above: Result Comment: AMP (Amphetamine): 500ng/mL, BAR (Barbituates): 200 ng/mL, BZO (Benzodiazepines): 150 ng/mL, BUP (Buprenorphine): 10 ng/mL, BRITTANY (Cocaine): 150 ng/mL, mAMP (Methamphetamine): 500 ng/mL, MTD (Methadone): 200 ng/mL, OPI (Opiates): 100 ng/mL, OXY (Oxycodone): 100 ng/mL, PCP (Phencyclidine): 25 ng/mL, PPX (Propoxyphene): 300 ng/mL, THC (Cannabinoids): 50 ng/mL, TCA (Trycyclic Antidepressants): 300 ng/mL Performed By: #### D RUGRPD #### [facility] [address] [place] [address] Dr. Roberto Parmar DRUG CUT HEADER DRUG CLASS TEST SYSTEM CUT-OFF CONCENTRATIONS ARE FOLLOWS: Normal [facility] Comment on above: Performed By: #### D RUGRPD #### [facility] [address] [place] [address] Dr. Roberto Parmar mAMP Negative Normal NEGATIVE [facility] Comment on above: Performed By: #### D RUGRPD #### [facility] [address] [address] [address] Roberto Parmar MTD Negative Normal NEGATIVE [facility] Comment on above: Performed By: #### D RUGRPD #### [facility] [address] [address] [address] Roberto Parmar OPI Negative Normal NEGATIVE [facility] Comment on above: Performed By: #### D RUGRPD #### [facility] [address] [place] [address] Dr. Roberto Parmar OXY Negative Normal NEGATIVE [facility] Comment on above: Performed By: #### D RUGRPD #### [facility] [address] [address] [address] Roberto Parmar PCP Negative Normal NEGATIVE [facility] Comment on above: Performed By: #### D RUGRPD #### [facility] [address] [place] [address] Dr. Roberto Parmar PPX Negative Normal NEGATIVE [facility] Comment on above: Performed By: #### D RUGRPD #### [facility] [address] [place] [address] Dr. Roberto Parmar TCA Negative Normal NEGATIVE [facility] Comment on above: Performed By: #### D RUGRPD #### [facility] [address] [place] [address] Dr. Roberto Parmar THC Negative Normal NEGATIVE [facility] Comment on above: Performed By: #### D RUGRPD #### [facility] [address] [place] [address] Dr. Roberto Parmar US PELVIS AND TRANSVAGon [...] by: MAYUR ALLEN Date: 2022-07-13 07:21 Normal [facility] PAP ACOG PANEL 2: 21 to 31on 06-18-2022 . . Normal [facility] Comment on above: Performed By: #### [id number] #### [facility] [address] [place] [address] Dr. Roberto Parmar Age Gdln ACOG Testing 21-29 Normal [facility] Comment on above: Performed By: #### [id number] #### [facility] [address] [place] [address] Dr. Roberto Parmar DIAGNOSIS: Comment Normal [facility] Comment on above: Result Comment: NEGA TIVE FOR INTRAEPITHELIAL LESION OR MALIGNANCY. Performed By: #### [id number] #### [facility] [address] [place] [address] Dr. Roberto Parmar Methodology: Comment [facility] Comment on above: Result Comment: This liquid based ThinPrep(R) pap test was screened with the use of an image guided system. Performed By: #### 4 [id number] #### [facility] [address] [place] [address] Dr. Roberto Parmar Note: Comment [facility] Comment on above: Result Comment: The Pap smear is a screening test designed to aid in the detection of premalignant and malignant conditions of the uterine cervix. It is not a diagnostic procedure and should not be used as the sole means of detecting cervical cancer. Both false-positive and false-negative reports do occur. . Performed By: #### [id number] #### [facility] [address] [place] [address] Dr. Roberto Parmar Performed by: Comment Normal [facility] Comment on above: Result Comment: Kishore De Dios Compliance Consultant (ASCP) Performed By: #### [id number] #### [facility] [address] [place] [address] Dr. Roberto Parmar Reflex Criteria: Comment [facility] Comment on above: Result Comment: The HPV DNA reflex criteria were not met with this specimen result therefore, no HPV testing was performed. . Performed By: #### 4 [id number] #### [facility] [address] [place] [address] Dr. Roberto Parmar Specimen adequacy: Comment Normal [facility] Comment on above: Result Comment: Sati sfactory for evaluation. Endocervical and/or squamous metaplastic cells (endocervical component) are present. Performed By: #### 4 [id number] #### [facility] [address] [place] [address] Dr. Roberto Parmar CBCon 12-06-2020 Erythrocyte distribution width (RBC) [Ratio] 13.6 % Normal 11.8-14.4 [facility] Comment on above: Performed By: #### P HEP, HIVCMB #### [facility] [address] [place] [address] Industrial [employer] Servicer Helper: Alvino Davila MD #### CP, CBC, HCG #### [facility] [address] [place] [address] [employer] Servicer Helper: Luis A Peng MD Hematocrit (Bld) [Volume fraction] 44.1 % Normal 36.3-47.1 [facility] Comment on above: Performed By: #### P HEP, HIVCMB #### [facility] [address] [place], [place] [id number] [employer] Serv[employer] Helper: Alvino Davila MD #### CP, CBC, HCG #### [facility] [address] [place] [address] Dr. [place], [place] [id number] [employer] Servicer Helper: Luis A Peng MD Hemoglobin (Bld) [Mass/Vol] 14.1 g/dL Normal 11.9-15.1 [facility] Comment on above: Performed By: #### P HEP, HIVCMB #### [address] [id number] [employer] Servicer Helper: Alvino Davila MD #### CP, CBC, HCG #### [address] [place] [address] Industrial Gas Servicer Helper: Luis A Peng MD MCH (RBC) [Entitic mass] 25.4 pg Normal 25.2-33.5 [facility] Comment on above: Performed By: #### P HEP, HIVCMB #### [address] [id number] [employer] Servicer Helper: Alvino Davila MD #### CP, CBC, HCG #### [address] [place] [address] Industrial [employer] Servicer Helper: Luis A Peng MD MCHC (RBC) [Mass/Vol] 32.0 g/dL Normal 28.4-34.8 [facility] Comment on above: Performed By: #### P HEP, HIVCMB #### [id number] [place], [place] [id number] [employer] Serv[employer] Helper: Alvino Davila MD #### CP, CBC, HCG #### [facility] [address] [place] [address] [place] [address] Industrial [employer] Servicer Helper: Luis A Peng MD MCV (RBC) [Entitic vol] 79.5 fL Low 82.6-102.9 [facility] Comment on above: Performed By: #### P HEP, HIVCMB #### [facility] [address] [place] [address] Industrial [employer] Servicer Helper: Alvino Davila MD #### CP, CBC, HCG #### [facility] [address] [place], [place] [id number] [employer] Servicer Helper: Luis A Peng MD NRBC Automated 0.0 per 100 WBC Normal 0.0 [facility] Comment on above: Performed By: #### P HEP, HIVCMB #### [address] [address] [employer] Servicer Helper: Alvino Davila MD #### CP, CBC, HCG #### [facility] [address] [place], [place] [id number] Industrial [employer] Servicer Helper: Luis A Peng MD Platelet mean volume (Bld) [Entitic vol] 11.8 fL Normal 8.1-13.5 [facility] Comment on above: Performed By: #### P HEP, HIVCMB #### [address] [address] [employer] Servicer Helper: Alvino Davila MD #### CP, CBC, HCG #### [facility] [address] [place] [address] [place], [place] [id number] [employer] Servicer Helper: Luis A Peng MD Platelets (Bld) [#/Vol] 238 10*3/uL Normal 138-453 [facility] Comment on above: Performed By: #### P HEP, HIVCMB #### [facility] [address] [place] [address] Industrial [employer] Servicer Helper: Alvino Davila MD #### CP, CBC, HCG #### [facility] [address] [place], [place] [id number] [employer] Servicer Helper: Luis A Peng MD RBC (Bld) [#/Vol] 5.55 10*6/uL High 3.95-5.11 [facility] Comment on above: Performed By: #### P HEP, HIVCMB #### [facility] [address], [place] [id number] Industrial [employer] Servicer Helper: Alvino Davila MD #### CP, CBC, HCG #### [facility] [address] [place] [address] Industrial [employer] Servicer Helper: Luis A Peng MD WBC (Bld) [#/Vol] 8.6 10*3/uL Normal 3.5-11.3 [facility] Comment on above: Performed By: #### P HEP, HIVCMB #### [facility] [address], [place] [id number] [employer] Servicer Helper: Alvino Davila MD #### CP, CBC, HCG #### [facility] [address] [place] [address] [employer] Servicer Helper: Luis A Peng MD Erythrocyte distribution width (RBC) [Ratio] 13.6 % 11.8 - 14.4 % [place] Hematocrit (Bld) [Volume fraction] 44.1 % 36.3 - 47.1 % [place] Hemoglobin (Bld) [Mass/Vol] 14.1 g/dL 11.9 - 15.1 g/dL [place] Interpretation and review of laboratory results Abnormal [place] MCH (RBC) [Entitic mass] 25.4 pg 25.2 - 33.5 pg [place] MCHC (RBC) [Mass/Vol] 32.0 g/dL 28.4 - 34.8 g/dL [place] MCV (RBC) [Entitic vol] 79.5 fL Low 82.6 - 102.9 fL [place] Platelet mean volume (Bld) [Entitic vol] 11.8 fL 8.1 - 13.5 fL [place] Platelets (Bld) [#/Vol] 238 10*3/uL [place] RBC (Bld) [#/Vol] 5.55 10*6/uL High 3.95 - 5.11 m/uL [place] WBC (Bld) [#/Vol] 8.6 10*3/uL [place] WBC (Bld) [#/Vol] 0.0 10*3/uL 0.0 per 100 WBC M [place] Comp Metabolic Profon 2020 (cont.) Normal [facility] Comment on above: Result Comment: Aver age GFR for 20-29 years old: 116 mL/min/1.73sq m Chronic Kidney Disease: <60 mL/min/1.73sq m Kidney failure: <15 mL/min/1.73sq m eGFR calculated using average adult body mass. Additional eGFR calculator available at: http://[email or web address]_crcl_2012.htm Performed By: #### P HEP, HIVCMB #### [address] [id number] [employer] Helper: Alvino Davila MD #### CP, CBC, HCG #### [facility] [address] [place] [address] [place] [address] [employer] Servicer Helper: Luis A Peng MD Albumin [Mass/Vol] 4.6 g/dL Normal 3.5-5.2 [facility] Comment on above: Performed By: #### P HEP, HIVCMB #### [address] [id number] [employer] Helper: Alvino Davila MD #### CP, CBC, HCG #### [facility] [address] [place] [address] [place] [address] [employer] Servicer Helper: Luis A Peng MD Albumin/Globulin [Mass ratio] 1.6 {ratio} Normal 1.0-2.5 [facility] Comment on above: Performed By: #### P HEP, HIVCMB #### [address] [id number] [employer]icer Helper: Alvino Davila MD #### CP, CBC, HCG #### [facility] [address] [place], [place] [id number] [employer] Servicer Helper: Luis A Peng MD Alkaline Phos 81 U/L Normal 35-104 [facility] Comment on above: Performed By: #### P HEP, HIVCMB #### [address] [address] [employer] Servicer Helper: Alvino Davila MD #### CP, CBC, HCG #### [facility] [address] [place], [place] [id number] [employer] Servicer Helper: Luis A Peng MD ALT [Catalytic activity/Vol] 39 U/L High 5-33 [facility] Comment on above: Performed By: #### P HEP, HIVCMB #### [address] [address] [employer] Servicer Helper: Alvino Davila MD #### CP, CBC, HCG #### [address] [place], [place] [id number] [employer] Servicer Helper: Luis A Peng MD Anion gap [Moles/Vol] 12 mmol/L Normal 9-17 [facility] Comment on above: Performed By: #### P HEP, HIVCMB #### [address] [address] [employer] Servicer Helper: Alvino Davila MD #### CP, CBC, HCG #### [address] [place], [place] [phone] [employer] Servicer Helper: Luis A Peng MD AST [Catalytic activity/Vol] 28 U/L Normal <32 [facility] Comment on above: Performed By: #### P HEP, HIVCMB #### [address] [address] [employer] Servicer Helper: Alvino Davila MD #### CP, CBC, HCG #### [address] [place] [phone] Industrial [employer] Servicer Helper: Luis A Peng MD Bilirubin Ql (U) 0.26 mg/dL Low 0.3-1.2 [facility] Comment on above: Performed By: #### P HEP, HIVCMB #### [address] [id number] [employer]icer Helper: Alvino Davila MD #### CP, CBC, HCG #### [address] [place] [place] [phone] Industrial [employer] Servicer Helper: Luis A Peng MD BUN/CRE Ratio 14 Normal 9-20 [facility] Comment on above: Performed By: #### P HEP, HIVCMB #### [address] [address] [employer] Servicer Helper: Alvino Davila MD #### LAURA, CBC, HCG #### [address] [place] [phone] [employer] Servicer Helper: Luis A Peng MD Calcium [Mass/Vol] 10.1 mg/dL Normal 8.6-10.4 [facility] Comment on above: Performed By: #### P HEP, HIVCMB #### [address] [address] [employer] Servicer Helper: Alvion Davila MD #### CP, CBC, HCG #### [address] [place] [phone] [employer] Servicer Helper: Luis A Peng MD Chloride [Moles/Vol] 101 mmol/L Normal 98-107 [facility] Comment on above: Performed By: #### P HEP, HIVCMB #### [address] [address] [employer] Servicer Helper: Alvino Davila MD #### CP, CBC, HCG #### [address] [place] [phone] [employer] Servicer Helper: Luis A Peng MD CO2 [Moles/Vol] 26 mmol/L Normal 20-31 [facility] Comment on above: Performed By: #### P HEP, HIVCMB #### [facility] [address] [place] [address] [employer] Servicer Helper: Alvino Davila MD #### CP, CBC, HCG #### [facility] [address] [place] [address] [employer] Servicer Helper: Luis A Peng MD Creatinine [Mass/Vol] 0.49 mg/dL Low 0.50-0.90 [facility] Comment on above: Performed By: #### P HEP, HIVCMB #### [address] [id number] [employer]icer Helper: Alvino Davila MD #### CP, CBC, HCG #### [facility] [address] [place] [address] [employer] Servicer Helper: Luis A Peng MD GFR, Amer >60 Normal >60 [facility] Comment on above: Performed By: #### P HEP, HIVCMB #### [facility] [address] [place] [address] Industrial [employer] Servicer Helper: Alvino Davila MD #### CP, CBC, HCG #### [facility] [address] [place], [place] [phone] [employer] Servicer Helper: Luis A Peng MD GFR,non Amer >60 Normal >60 [facility] Comment on above: Performed By: #### P HEP, HIVCMB #### [facility] [address] [place] [address] [employer] Servicer Helper: Alvino Davila MD #### CP, CBC, HCG #### [facility] [address] [place], [place] [phone] [employer] Servicer Helper: Luis A Peng MD Glucose [Mass/Vol] 101 mg/dL High 70-99 [facility] Comment on above: Performed By: #### P HEP, HIVCMB #### [address] [place] [address] [employer] Servicer Helper: Alvino Davila MD #### CP, CBC, HCG #### [facility] [address] [place] [address] [place]. [place], [place] [id number] [employer]icer Helper: Luis A Peng MD Potassium [Moles/Vol] 4.2 mmol/L Normal 3.7-5.3 [facility] Comment on above: Performed By: #### P HEP, HIVCMB #### [address] [id number] [employer] Servicer Helper: Alvino Davila MD #### CP, CBC, HCG #### [facility] [address] [place] [address] [address]. [place], [place] [id number] [employer] Servicer Helper: Luis A Peng MD Protein [Mass/Vol] 7.5 g/dL Normal 6.4-8.3 [facility] Comment on above: Performed By: #### P HEP, HIVCMB #### [address] [address] [employer] Helper: Alvino Davila MD #### CP, CBC, HCG #### [facility] [address] [place] [address] [place]. [place], [place] [id number] [employer] Servicer Helper: Luis A Peng MD Sodium [Moles/Vol] 139 mmol/L Normal 135-144 [facility] Comment on above: Performed By: #### P HEP, HIVCMB #### [address] [address] [employer] Servicer Helper: Alvino Davila MD #### CP, CBC, HCG #### [address] [place], [place] [phone] [employer] Servicer Helper: Luis A Peng MD Staging: Normal [facility] Comment on above: Result Comment: Stag e 1: Some kidney damage normal GFR Stage 2: Mild kidney damage GFR 60-89 Stage 3: Moderate kidney damage GFR 30-59 Stage 4: Severe kidney damage GFR 15-29 Stage 5: Severe kidney damage GFR <15 ESRD - chronic treatment by dialysis or transplant Performed By: #### P HEP, HIVCMB #### [facility] [address], [place] [id number] [employer] Servicer Helper: Alvino Davila MD #### CP, CBC, HCG #### [facility] [address] [place] [address] Industrial [employer] Servicer Helper: Luis A Peng MD Urea nitrogen [Mass/Vol] 7 mg/dL Normal 6-20 [facility] Comment on above: Performed By: #### P HEP, HIVCMB #### [facility] [address] [place], [place] [phone] [employer] Servicer Helper: Alvino Davila MD #### CP, CBC, HCG #### [facility] [address] [place] [address] Industrial [employer] Servicer Helper: Luis A Peng MD Comprehensive Metabolic Pane [facility] 12-06-2020 Albumin [Mass/Vol] 4.6 g/dL 3.5 - 5.2 g/dL [place], [place] Albumin/Globulin [Mass ratio] 1.6 {ratio} [place] ALP [Catalytic activity/Vol] 81 U/L 35 - 104 U/L [place] ALT [Catalytic activity/Vol] 39 U/L High 5 - 33 U/L [place] Anion gap [Moles/Vol] 12 mmol/L 9 - 17 mmol/L [place] AST [Catalytic activity/Vol] 28 U/L <32 [place] Bilirubin Ql (U) 0.26 mg/dL Low 0.3 - 1.2 mg/dL [place] Bun/Cre Ratio 14 [place] Calcium [Mass/Vol] 10.1 mg/dL 8.6 - 10.4 mg/dL [place] Chloride [Moles/Vol] 101 mmol/L 98 - 107 mmol/L [place] CO2 [Moles/Vol] 26 mmol/L 20 - 31 mmol/L [place] Creatinine [Mass/Vol] 0.49 mg/dL Low 0.5 - 0.9 mg/dL [place] GFR >60 >60 mL/min [place] GFR Non- >60 >60 mL/min [place] Glucose [Mass/Vol] 101 mg/dL High 70 - 99 mg/dL [place] Interpretation and review of laboratory results Abnormal [place] Potassium [Moles/Vol] 4.2 mmol/L 3.7 - 5.3 mmol/L [place] Protein [Mass/Vol] 7.5 g/dL 6.4 - 8.3 g/dL [place] Sodium [Moles/Vol] 139 mmol/L 135 - 144 mmol/L [place] Urea nitrogen [Mass/Vol] 7 mg/dL 6 - 20 mg/dL [place] HCG Qualitative, Serumon hCG Qual Negative NEGATIVE [place] Comment on above: Specimens with hCG l evels near the threshold of the test (25 mIU/mL) may give a negative or indeterminate result. In such cases, another test should be performed with a new specimen in 48-72 hours. If early is suspected clinically in this setting, correlation with quantitative serum b-hCG level is suggested. [employer] has confirmed the use of plasma for this test. This has not been cleared or approved by the U.S. Food and Drug Administration. The FDA has determined that such clearance is not necessary. HCG Screen, Bloodon 12-06-19 21 HCG Qn Negative Normal NEG [facility] Comment on above: Result Comment: Spec imens with hCG levels near the threshold of the test (25 mIU/mL) may give a negative or indeterminate result. In such cases, another test should be performed with a new specimen in 48-72 hours. If early is suspected clinically in this setting, correlation with quantitative serum b-hCG level is suggested. [employer] [facility] [employer] has confirmed the use of plasma for this test. This has not been cleared or approved by the U.S. Food and Drug Administration. The FDA has determined that such clearance is not necessary. Performed By: #### P HEP, HIVCMB #### [id number] [place] [address] [employer] Helper: Alvino Davila MD #### CP, CBC, HCG #### [address] [place] [address] [employer] Servicer Helper: Luis A Peng MD HIV Ag/Abon 12-06-2020 HIV Ag/Ab NONREACTIVE Normal [facility] Comment on above: Result Comment: No l aboratory evidence of HIV infection. If acute HIV infection is suspected, consider testing for HIV-1 RNA. Performed By: #### P HEP, HIVCMB #### [address] [address] [employer]: Alvino Davila MD #### CP, CBC, HCG #### [address] [place] [address] [employer]: Luis A Peng MD HIV Screenon 12-06-2020 HIV Ag/Ab NONREACTIVE NONREACTIVE [place], [place] Comment on above: No laboratory eviden ce of HIV infection. If acute HIV infection is suspected, consider testing for HIV-1 RNA. Hepatitis Acute [facility] 12-06 Hep A Ab,IgM NONREACTIVE Normal NR [facility] Comment on above: Performed By: #### P HEP, HIVCMB #### [address] [address] [employer]: Alvino Davila MD #### CP, CBC, HCG #### [address] [place] [address] [employer]: Luis A Peng MD Hep B Core Ab,IgM NONREACTIVE Normal [facility] Comment on above: Performed By: #### P HEP, HIVCMB #### [address] [address] [employer]: Alvino Davila MD #### CP, CBC, HCG #### [facility] [address] [place], [place] [phone] [employer]: Luis A Peng MD Hep B Surf Ag NONREACTIVE Normal [facility] Comment on above: Performed By: #### P HEP, HIVCMB #### [facility] [address] [place], [place] [phone] [employer]: Alvino Davila MD #### CP, CBC, HCG #### [facility] [address] [place], [place] [phone] [employer]: Luis A Peng MD Hep C Ab REACTIVE Abnormal [facility] Comment on above: Result Comment: The [...] Performed By: #### P HEP, HIVCMB #### [address] [address] [employer]: Alvino Davila MD #### CP, CBC, HCG #### [address] [place] [address] [employer]: Luis A Peng MD Hepatitis Panel, [facility] HAV IgM IA Qn (S) NONREACTIVE NONREACTIVE [facility], [place] Hep B Core Ab, IgM NONREACTIVE NONREACTIVE [facility], [place] Hepatitis B Surface Ag NONREACTIVE NONREACTIVE [facility], [place] Hepatitis C Ab REACTIVE Abnormal NONREACTIVE [place], [place] Comment on above: The hepatitis C [...] Interpretation and review of laboratory results Abnormal [place], [place] Metabolic Panelon 12-06-2020 GFR/1.73 sq M predicted among non-blacks MDRD (S/P/Bld) [Vol rate/Area] [place], [place] Comment on above: Stage 1: Some [...] body mass. Additional eGFR calculator available at: http://www.Parking Panda/multiple_crcl_2012.htm CBCon 05-30-2020 Erythrocyte distribution width (RBC) [Ratio] 12.7 % Normal 11.8-14.4 [facility] Comment on above: Performed By: #### C P, HCG, CBC #### [facility] [address] [place] [address] [place] [address] [employer]: Luis A Peng MD #### HIVCMB, PHEP #### [address] [address] [employer]: Alvino Davila MD Hematocrit (Bld) [Volume fraction] 39.2 % Normal 36.3-47.1 [facility] Comment on above: Performed By: #### C P, HCG, CBC #### [facility] [address] [place] [address] [employer]: Luis A Peng MD #### HIVCMB, PHEP #### [address] [address] [employer]: Alvino Davila MD Hemoglobin (Bld) [Mass/Vol] 12.3 g/dL Normal 11.9-15.1 [facility] Comment on above: Performed By: #### C P, HCG, CBC #### [address] [place] [address] [employer]: Luis A Peng MD #### HIVCMB, PHEP #### [address] [id number] [employer]: Alvino Davila MD MCH (RBC) [Entitic mass] 26.2 pg Normal 25.2-33.5 [facility] Comment on above: Performed By: #### C P, HCG, CBC #### [address] [place] [phone] [employer]: Luis A Peng MD #### HIVCMB, PHEP #### [address] [phone] [employer]: Alvino Davila MD MCHC (RBC) [Mass/Vol] 31.4 g/dL Normal 28.4-34.8 [facility] Comment on above: Performed By: #### C P, HCG, CBC #### [address] [place] [phone] [employer]: Luis A Peng MD #### HIVCMB, PHEP #### [address] [phone] [employer]: Alvino Davila MD MCV (RBC) [Entitic vol] 83.6 fL Normal 82.6-102.9 [facility] Comment on above: Performed By: #### C P, HCG, CBC #### [address] [place] [address] [employer]: Luis A Peng MD #### HIVCMB, PHEP #### [address] [phone] [employer]: Alvino Davila MD NRBC Automated 0.0 per 100 WBC Normal 0.0 [facility] Comment on above: Performed By: #### C P, HCG, CBC #### [address] [place] [phone] [employer]: Luis A Peng MD #### HIVCMB, PHEP #### [address] [phone] [employer]: Alvino Davila MD Platelet mean volume (Bld) [Entitic vol] 10.9 fL Normal 8.1-13.5 [facility] Comment on above: Performed By: #### C P, HCG, CBC #### [address] [place] [phone] [employer]: Luis A Peng MD #### HIVCMB, PHEP #### [place] [phone] [employer]: Alvino Davila MD Platelets (Bld) [#/Vol] 277 10*3/uL Normal 138-453 [facility] Comment on above: Performed By: #### C P, HCG, CBC #### [address] [place] [phone] [employer]: Luis A Peng MD #### HIVCMB, PHEP #### [place] [address] [employer]: Alvino Davila MD RBC (Bld) [#/Vol] 4.69 10*6/uL Normal 3.95-5.11 [facility] Comment on above: Performed By: #### C P, HCG, CBC #### [facility] [address] [place] [address] [place] [address] [employer]: Luis A Peng MD #### HIVCMB, PHEP #### [address] [phone] [employer]: Alvino Davila MD WBC (Bld) [#/Vol] 5.5 10*3/uL Normal 3.5-11.3 [facility] Comment on above: Performed By: #### C P, HCG, CBC #### [facility] [address] [place] [address] [employer]: Luis A Peng MD #### HIVCMB, PHEP #### [facility] [address] [place], [place] [phone] [employer]: Alvino Davila MD Erythrocyte distribution width (RBC) [Ratio] 12.7 % 11.8 - 14.4 % [place] Hematocrit (Bld) [Volume fraction] 39.2 % 36.3 - 47.1 % [place] Hemoglobin (Bld) [Mass/Vol] 12.3 g/dL 11.9 - 15.1 g/dL [place] MCH (RBC) [Entitic mass] 26.2 pg 25.2 - 33.5 pg [place] MCHC (RBC) [Mass/Vol] 31.4 g/dL 28.4 - 34.8 g/dL [place] MCV (RBC) [Entitic vol] 83.6 fL 82.6 - 102.9 fL [place] Platelet mean volume (Bld) [Entitic vol] 10.9 fL 8.1 - 13.5 fL [place], [place] Platelets (Bld) [#/Vol] 277 10*3/uL [place] RBC (Bld) [#/Vol] 4.69 10*6/uL 3.95 - 5.11 m/uL [place] WBC (Bld) [#/Vol] 5.5 10*3/uL [place] WBC (Bld) [#/Vol] 0.0 10*3/uL 0.0 per 100 WBC M [place], [place] Comp Metabolic Profon 2019 (cont.) Normal [facility] Comment on above: Result Comment: Aver age GFR for 20-29 years old: 116 mL/min/1.73sq m Chronic Kidney Disease: <60 mL/min/1.73sq m Kidney failure: <15 mL/min/1.73sq m eGFR calculated using average adult body mass. Additional eGFR calculator available at: http://www.Parking Panda/multiple_crcl_2012.htm Performed By: #### C P, HCG, CBC #### [address] [place] [phone] [employer]: Luis A Peng MD #### HIVCMB, PHEP #### [place] [phone] [place] [address] [employer]: Alvino Davila MD Albumin [Mass/Vol] 3.4 g/dL Low 3.5-5.2 [facility] Comment on above: Performed By: #### C P, HCG, CBC #### [address] [place] [phone] [employer]: Luis A Peng MD #### HIVCMB, PHEP #### [place] [address] [place] [address] [employer]: Alvino Davila MD Albumin/Globulin [Mass ratio] 1.1 {ratio} Normal 1.0-2.5 [facility] Comment on above: Performed By: #### C P, HCG, CBC #### [address] [place] [phone] [employer]: Luis A Peng MD #### HIVCMB, PHEP #### [place] [address] [place] [address] [employer]: Alvino Davila MD Alkaline Phos 130 U/L High 35-104 [facility] Comment on above: Performed By: #### C P, HCG, CBC #### [address] [place] [address] [employer]: Luis A Peng MD #### HIVCMB, PHEP #### [address] [phone] [employer]: Alvino Davila MD ALT [Catalytic activity/Vol] 33 U/L Normal 5-33 [facility] Comment on above: Performed By: #### C P, HCG, CBC #### [facility] [address] [place] [phone] [employer]: Luis A Peng MD #### HIVCMB, PHEP #### [address] [phone] [employer]: Alvino Davila MD Anion gap [Moles/Vol] 7 mmol/L Low 9-17 [facility] Comment on above: Performed By: #### C P, HCG, CBC #### [facility] [address] [place] [phone] [employer]: Luis A Peng MD #### HIVCMB, PHEP #### [address] [phone] [employer]: Alvino Davila MD AST [Catalytic activity/Vol] 35 U/L High <32 [facility] Comment on above: Performed By: #### C P, HCG, CBC #### [facility] [address] [place] [phone] [employer]: Luis A Peng MD #### HIVCMB, PHEP #### [address] [phone] [employer]: Alvino Davila MD Bilirubin Ql (U) 0.16 mg/dL Low 0.3-1.2 [facility] Comment on above: Performed By: #### C P, HCG, CBC #### [facility] [address] [place], [place] [phone] [employer]: Luis A Peng MD #### HIVCMB, PHEP #### [place] [phone] [place] [address] [employer]: Alvino Davila MD BUN/CRE Ratio 14 Normal 9-20 [facility] Comment on above: Performed By: #### C P, HCG, CBC #### [facility] [address] [place], [place] [phone] [employer]: Luis A Peng MD #### HIVCMB, PHEP #### [address] [address] [employer]: Alvino Davila MD Calcium [Mass/Vol] 9.2 mg/dL Normal 8.6-10.4 [facility] Comment on above: Performed By: #### C P, HCG, CBC #### [facility] [address] [place] [address] [place]. [place], [place] [phone] [employer]: Luis A Peng MD #### HIVCMB, PHEP #### [address] [address] [employer]: Alvino Davila MD Chloride [Moles/Vol] 99 mmol/L Normal 98-107 [facility] Comment on above: Performed By: #### C P, HCG, CBC #### [facility] [address] [place] [address] [address]. [place], [place] [phone] [employer]: Luis A Peng MD #### HIVCMB, PHEP #### [address] [address] [employer]: Alvino Davila MD CO2 [Moles/Vol] 29 mmol/L Normal 20-31 [facility] Comment on above: Performed By: #### C P, HCG, CBC #### [facility] [address] [place], [place] [phone] [employer]: Luis A Peng MD #### HIVCMB, PHEP #### [address] [address] [employer]: Alvino Davila MD Creatinine [Mass/Vol] 0.63 mg/dL Normal 0.50-0.90 [facility] Comment on above: Performed By: #### C P, HCG, CBC #### [facility] [address] [place], [place] 642[address]83 [employer]: Luis A Peng MD #### HIVCMB, PHEP #### [facility] [address] [place], [place] [phone] [employer]: Alvino Davila MD GFR, Amer >60 Normal >60 [facility] Comment on above: Performed By: #### C P, HCG, CBC #### [facility] [address] [place] [address] [place], [place] [phone] [employer]: Luis A Peng MD #### HIVCMB, PHEP #### [address] [phone] [employer]: Alvino Davila MD GFR,non Amer >60 Normal >60 [facility] Comment on above: Performed By: #### C P, HCG, CBC #### [facility] [address] [place] [address] [place], [place] [phone] [employer]: Luis A Peng MD #### HIVCMB, PHEP #### [facility] [address] [place] [id number] [employer]: Alvino Davila MD Glucose [Mass/Vol] 95 mg/dL Normal 70-99 [facility] Comment on above: Performed By: #### C P, HCG, CBC #### [facility] [address] [place], [place] 080[address]83 [employer]: Luis A Peng MD #### HIVCMB, PHEP #### [facility] [address] [place] [address] [employer]: Alvino Davila MD Potassium [Moles/Vol] 4.3 mmol/L Normal 3.7-5.3 [facility] Comment on above: Performed By: #### C P, HCG, CBC #### [facility] [address] [place] [address] [place] [address] [employer]: Luis A Peng MD #### HIVCMB, PHEP #### [address] [phone] [employer]: Alvino Davila MD Protein [Mass/Vol] 6.5 g/dL Normal 6.4-8.3 [facility] Comment on above: Performed By: #### C P, HCG, CBC #### [address] [place] [address] [employer]: Luis A Peng MD #### HIVCMB, PHEP #### [address] [phone] [employer]: Alvino Davila MD Sodium [Moles/Vol] 135 mmol/L Normal 135-144 [facility] Comment on above: Performed By: #### C P, HCG, CBC #### [address] [place] [address] [employer]: Luis A Peng MD #### HIVCMB, PHEP #### [address] [phone] [employer]: Alvino Davila MD Staging: Normal [facility] Comment on above: Result Comment: Stag e 1: Some kidney damage normal GFR Stage 2: Mild kidney damage GFR 60-89 Stage 3: Moderate kidney damage GFR 30-59 Stage 4: Severe kidney damage GFR 15-29 Stage 5: Severe kidney damage GFR <15 ESRD - chronic treatment by dialysis or transplant Performed By: #### C P, HCG, CBC #### [address] [place] [address] [employer]: Luis A Peng MD #### HIVCMB, PHEP #### [facility] [address] [place], [place] [phone] [employer]: Alvino Davila MD Urea nitrogen [Mass/Vol] 9 mg/dL Normal 6-20 [facility] Comment on above: Performed By: #### C P, HCG, CBC #### [facility] [address] [place] [address] [employer]: Luis A Peng MD #### HIVCMB, PHEP #### [facility] [address] [place] [address] [employer]: Alvino Davila MD Comprehensive Metabolic Pane [facility] 05-30-2020 Albumin [Mass/Vol] 3.4 g/dL Low 3.5 - 5.2 g/dL [place], [place] Albumin/Globulin [Mass ratio] 1.1 {ratio} [place] ALP [Catalytic activity/Vol] 130 U/L High 35 - 104 U/L [place] ALT [Catalytic activity/Vol] 33 U/L 5 - 33 U/L [place] Anion gap [Moles/Vol] 7 mmol/L Low 9 - 17 mmol/L [place] AST [Catalytic activity/Vol] 35 U/L High <32 [place] Bilirubin Ql (U) 0.16 mg/dL Low 0.3 - 1.2 mg/dL [place], [place] Bun/Cre Ratio 14 [place], [place] Calcium [Mass/Vol] 9.2 mg/dL 8.6 - 10.4 mg/dL [place] Chloride [Moles/Vol] 99 mmol/L 98 - 107 mmol/L [place] CO2 [Moles/Vol] 29 mmol/L 20 - 31 mmol/L [place] Creatinine [Mass/Vol] 0.63 mg/dL 0.5 - 0.9 mg/dL [place] GFR >60 >60 mL/min [place], [place] GFR Non- >60 >60 mL/min [place] Glucose [Mass/Vol] 95 mg/dL 70 - 99 mg/dL [place] Interpretation and review of laboratory results Abnormal [place] Potassium [Moles/Vol] 4.3 mmol/L 3.7 - 5.3 mmol/L [place] Protein [Mass/Vol] 6.5 g/dL 6.4 - 8.3 g/dL [place] Sodium [Moles/Vol] 135 mmol/L 135 - 144 mmol/L [place] Urea nitrogen [Mass/Vol] 9 mg/dL 6 - 20 mg/dL [place] HCG Qualitative, Serumon hCG Qual Negative NEGATIVE [place] Comment on above: Specimens with hCG l evels near the threshold of the test (25 mIU/mL) may give a negative or indeterminate result. In such cases, another test should be performed with a new specimen in 48-72 hours. If early is suspected clinically in this setting, correlation with quantitative serum b-hCG level is suggested. [facility] has confirmed the use of plasma for this test. This has not been cleared or approved by the U.S. Food and Drug Administration. The FDA has determined that such clearance is not necessary. HCG Screen, Bloodon 05-30-20 20 HCG Qn Negative Normal NEG [facility] Comment on above: Result Comment: Spec imens with hCG levels near the threshold of the test (25 mIU/mL) may give a negative or indeterminate result. In such cases, another test should be performed with a new specimen in 48-72 hours. If early is suspected clinically in this setting, correlation with quantitative serum b-hCG level is suggested. [facility] has confirmed the use of plasma for this test. This has not been cleared or approved by the U.S. Food and Drug Administration. The FDA has determined that such clearance is not necessary. Performed By: #### C P, HCG, CBC #### [facility] [address] [place] [address] [employer]: Luis A Peng MD #### HIVCMB, PHEP #### [facility] [address] [place] [address] [employer]: Alvino Davila MD HIV Ag/Abon 05-30-2020 HIV Ag/Ab NONREACTIVE Normal [facility] Comment on above: Result Comment: No l aboratory evidence of HIV infection. If acute HIV infection is suspected, consider testing for HIV-1 RNA. Performed By: #### C P, HCG, CBC #### [facility] [address] [place], [place] [phone] [employer]: Luis A Peng MD #### HIVCMB, PHEP #### [facility] [address] [place] [address] [employer]: Alvino Davila MD HIV Screenon 05-30-2020 HIV Ag/Ab NONREACTIVE NONREACTIVE [place] Comment on above: No laboratory eviden ce of HIV infection. If acute HIV infection is suspected, consider testing for HIV-1 RNA. Hepatitis Acute [facility] 05-30 Hep A Ab,IgM NONREACTIVE Normal [facility] Comment on above: Performed By: #### C P, HCG, CBC #### [address] [place], [place] [phone] [employer]: Luis A Peng MD #### HIVCMB, PHEP #### [place] [address] [place] [address] [employer]: Alvino Davila MD Hep B Core Ab,IgM NONREACTIVE Normal [facility] Comment on above: Performed By: #### C P, HCG, CBC #### [facility] [address] [place], [place] [phone] [employer]: Luis A Peng MD #### HIVCMB, PHEP #### [facility] [address] [place] [address] [employer]: Alvino Davila MD Hep B Surf Ag NONREACTIVE Normal [facility] Comment on above: Performed By: #### C P, HCG, CBC #### [facility] [address] [place], [place] 2117383 [employer]: Luis A Peng MD #### HIVCMB, PHEP #### [facility] [address] [place] [address] [employer]: Alvino Davila MD Hep C Ab NONREACTIVE Normal NR [facility] Comment on above: Result Comment: The [...] By: #### C P, HCG, CBC #### [facility] [address] [place] [address] [place], [place] [phone] [employer]: Luis A Peng MD #### HIVCMB, PHEP #### [place] [phone] [place], [place] [phone] [employer]: Alvino Davila MD Hepatitis Panel, Acuteon HAV IgM IA Qn (S) NONREACTIVE NONREACTIVE [place] Hep B Core Ab, IgM NONREACTIVE NONREACTIVE [place] Hepatitis B Surface Ag NONREACTIVE NONREACTIVE [place] Hepatitis C Ab NONREACTIVE NONREACTIVE [place], [place] Comment on above: The hepatitis C [...] predicted among non-blacks MDRD (S/P/Bld) [Vol rate/Area] [place] Comment on above: Stage 1: Some [...] body mass. Additional eGFR calculator available at: http://www.Prifloat.My eShoe/multiple_crcl_2012.htm CBCon 01-01-2020 Erythrocyte distribution width (RBC) [Ratio] 12.5 % Normal 11.8-14.4 [facility] Comment on above: Performed By: #### P HEP, HIVCMB #### [address] [phone] [employer]: Alvino Davila MD #### CP, CBC, HCG #### [address] [place] [address] [employer]: Luis A Peng MD Hematocrit (Bld) [Volume fraction] 40.2 % Normal 36.3-47.1 [facility] Comment on above: Performed By: #### P HEP, HIVCMB #### [address] [address] [employer]: Alvino Davila MD #### CP, CBC, HCG #### [address] [place] [address] [employer]: Luis A Peng MD Hemoglobin (Bld) [Mass/Vol] 13.1 g/dL Normal 11.9-15.1 [facility] Comment on above: Performed By: #### P HEP, HIVCMB #### [address] [address] [employer]: Alvino Davila MD #### CP, CBC, HCG #### [address] [place] [address] [employer]: Luis A Peng MD MCH (RBC) [Entitic mass] 28.4 pg Normal 25.2-33.5 [facility] Comment on above: Performed By: #### P HEP, HIVCMB #### [address] [phone] [employer]: Alvino Davila MD #### CP, CBC, HCG #### [address] [place] [phone] [employer]: Luis A Peng MD MCHC (RBC) [Mass/Vol] 32.6 g/dL Normal 28.4-34.8 [facility] Comment on above: Performed By: #### P HEP, HIVCMB #### [address] [address] [employer]: Alvino Davila MD #### CP, CBC, HCG #### [address] [place] [phone] [employer]: Luis A Peng MD MCV (RBC) [Entitic vol] 87.2 fL Normal 82.6-102.9 [facility] Comment on above: Performed By: #### P HEP, HIVCMB #### [place] [address] [employer]: Alvino Davila MD #### CP, CBC, HCG #### [address] [place] [phone] [employer]: Luis A Peng MD NRBC Automated 0.0 per 100 WBC Normal 0.0 [facility] Comment on above: Performed By: #### P HEP, HIVCMB #### [place] [address] [employer]: Alvino Davila MD #### CP, CBC, HCG #### [address] [place] [address] [employer]: Luis A Peng MD Platelet mean volume (Bld) [Entitic vol] 11.2 fL Normal 8.1-13.5 [facility] Comment on above: Performed By: #### P HEP, HIVCMB #### [place] [address] [place] [address] [employer]: Alvino Davila MD #### CP, CBC, HCG #### [address] [place] [phone] [employer]: Luis A Peng MD Platelets (Bld) [#/Vol] 241 10*3/uL Normal 138-453 [facility] Comment on above: Performed By: #### P HEP, HIVCMB #### [address] [phone] [employer]: Alvino Davila MD #### CP, CBC, HCG #### [address] [place] [phone] ( [employer]: Luis A Peng MD RBC (Bld) [#/Vol] 4.61 10*6/uL Normal 3.95-5.11 [facility] Comment on above: Performed By: #### P HEP, HIVCMB #### [address] [address] [employer]: Alvino Davila MD #### CP, CBC, HCG #### [address] [place] [phone] [employer]: Luis A Peng MD WBC (Bld) [#/Vol] 9.0 10*3/uL Normal 3.5-11.3 [facility] Comment on above: Performed By: #### P HEP, HIVCMB #### [address] [phone] [employer]: Alvino Davila MD #### CP, CBC, HCG #### [address] [place] [id number] [employer] Helper: Luis A Peng MD Erythrocyte distribution width (RBC) [Ratio] 12.5 % 11.8 - 14.4 % [place] Hematocrit (Bld) [Volume fraction] 40.2 % 36.3 - 47.1 % [place] Hemoglobin (Bld) [Mass/Vol] 13.1 g/dL 11.9 - 15.1 g/dL [place] MCH (RBC) [Entitic mass] 28.4 pg 25.2 - 33.5 pg [place] MCHC (RBC) [Mass/Vol] 32.6 g/dL 28.4 - 34.8 g/dL [place] MCV (RBC) [Entitic vol] 87.2 fL 82.6 - 102.9 fL [place] Platelet mean volume (Bld) [Entitic vol] 11.2 fL 8.1 - 13.5 fL [place] Platelets (Bld) [#/Vol] 241 10*3/uL [place] RBC (Bld) [#/Vol] 4.61 10*6/uL 3.95 - 5.11 m/uL [place] WBC (Bld) [#/Vol] 0.0 10*3/uL 0.0 per 100 WBC [place] WBC (Bld) [#/Vol] 9.0 10*3/uL [place] Comp Metabolic Profon 2019 (cont.) Normal [facility] Comment on above: Result Comment: Aver age GFR for 20-29 years old: 116 mL/min/1.73sq m Chronic Kidney Disease: <60 mL/min/1.73sq m Kidney failure: <15 mL/min/1.73sq m eGFR calculated using average adult body mass. Additional eGFR calculator available at: http://www.Prifloat.My eShoe/multiple_crcl_2011.htm Performed By: #### P HEP, HIVCMB #### [employer] [facility] [place] [address] [employer] Helper: Alvino Davila MD #### CP, CBC, HCG #### [facility] [address] [place], [place] [id number] [employer] Helper: Luis A Peng MD Albumin [Mass/Vol] 4.2 g/dL Normal 3.5-5.2 [facility] Comment on above: Performed By: #### P HEP, HIVCMB #### [address] [address] [employer] Helper: Alvino Davila MD #### CP, CBC, HCG #### [facility] [address] [place], [place] [id number] [employer] Helper: Luis A Peng MD Albumin/Globulin [Mass ratio] 1.7 {ratio} Normal 1.0-2.5 [facility] Comment on above: Performed By: #### P HEP, HIVCMB #### [address] [address] [employer] Helper: Alvino Davila MD #### CP, CBC, HCG #### [address] [place], [place] [id number] [employer] Helper: Luis A Peng MD Alkaline Phos 69 U/L Normal 35-104 [facility] Comment on above: Performed By: #### P HEP, HIVCMB #### [address] [address] [employer] Helper: Alvino Davila MD #### CP, CBC, HCG #### [facility] [address] [place] [address] [employer] Helper: Luis A Peng MD ALT [Catalytic activity/Vol] 78 U/L High 5-33 [facility] Comment on above: Performed By: #### P HEP, HIVCMB #### [address] [address] [employer] Helper: Alvino Davila MD #### CP, CBC, HCG #### [facility] [address] [place], [place] 133[address]83 [employer] Helper: Luis A Peng MD Anion gap [Moles/Vol] 9 mmol/L Normal 9-17 [facility] Comment on above: Performed By: #### P HEP, HIVCMB #### [address] [address] [employer] Helper: Alvino Davila MD #### CP, CBC, HCG #### [facility] [address] [place], [place] [address] [employer] Helper: Luis A Peng MD AST [Catalytic activity/Vol] 44 U/L High <32 [facility] Comment on above: Performed By: #### P HEP, HIVCMB #### [address] [address] [employer] Helper: Alvino Davila MD #### CP, CBC, HCG #### [address] [place], [place] [id number] [employer] Helper: Luis A Peng MD Bilirubin Ql (U) 0.15 mg/dL Low 0.3-1.2 [facility] Comment on above: Performed By: #### P HEP, HIVCMB #### [address] [address] [employer] Helper: Alvino Davila MD #### CP, CBC, HCG #### [address] [place], [place] [phone] [employer] Helper: Luis A Peng MD BUN/CRE Ratio 20 Normal 9-20 [facility] Comment on above: Performed By: #### P HEP, HIVCMB #### [address] [address] [employer] Helper: Alvino Davila MD #### CP, CBC, HCG #### [address] [place] [address] [employer] Helper: Luis A Peng MD Calcium [Mass/Vol] 9.4 mg/dL Normal 8.6-10.4 [facility] Comment on above: Performed By: #### P HEP, HIVCMB #### [address] [id number] [employer] Helper: Alvino Davila MD #### CP, CBC, HCG #### [address] [place] [address] [employer] Helper: Luis A Peng MD Chloride [Moles/Vol] 97 mmol/L Low 98-107 [facility] Comment on above: Performed By: #### P HEP, HIVCMB #### [address] [id number] [employer] Helper: Alvino Davila MD #### CP, CBC, HCG #### [address] [place] [phone] [employer] Helper: Luis A Peng MD CO2 [Moles/Vol] 28 mmol/L Normal 20-31 [facility] Comment on above: Performed By: #### P HEP, HIVCMB #### [address] [id number] [employer] Helper: Alvino Davila MD #### CP, CBC, HCG #### [address] [place] [phone] [employer] Helper: Luis A Peng MD Creatinine [Mass/Vol] 0.55 mg/dL Normal 0.50-0.90 [facility] Comment on above: Performed By: #### P HEP, HIVCMB #### [address] [id number] [employer] Helper: Alvino Davila MD #### CP, CBC, HCG #### [address] [place] [address] [employer] Helper: Luis A Peng MD GFR, Amer >60 Normal >60 [facility] Comment on above: Performed By: #### P HEP, HIVCMB #### [facility] [address] [place] [address] [employer] Helper: Alvino Davila MD #### CP, CBC, HCG #### [facility] [address] [place], [place] [phone] [employer] Helper: Luis A Peng MD GFR,non Amer >60 Normal >60 [facility] Comment on above: Performed By: #### P HEP, HIVCMB #### [address] [address] [employer] Helper: Alvino Davila MD #### CP, CBC, HCG #### [facility] [address] [place] [address] [place] [address] [employer] Helper: Luis A Peng MD Glucose [Mass/Vol] 85 mg/dL Normal 70-99 [facility] Comment on above: Performed By: #### P HEP, HIVCMB #### [address] [address] [employer]per: Alvino Davila MD #### CP, CBC, HCG #### [facility] [address] [place] [address] Dr. [place] [phone] [employer] Helper: Luis A Peng MD Potassium [Moles/Vol] 4.3 mmol/L Normal 3.7-5.3 [facility] Comment on above: Performed By: #### P HEP, HIVCMB #### [address] [address] [employer] Helper: Alvino Davila MD #### CP, CBC, HCG #### [facility] [address] [place], [place] 6[address]83 [employer] Helper: Luis A Peng MD Protein [Mass/Vol] 6.7 g/dL Normal 6.4-8.3 [facility] Comment on above: Performed By: #### P HEP, HIVCMB #### [facility] [address] [place] [address] [employer] Helper: Alvino Davila MD #### CP, CBC, HCG #### [address] [place], [place] 8[address]83 [employer] Helper: Luis A Peng MD Sodium [Moles/Vol] 134 mmol/L Low 135-144 [facility] Comment on above: Performed By: #### P HEP, HIVCMB #### [address] [address] [employer] Helper: Alvino Davila MD #### CP, CBC, HCG #### [address] [place] [address] [employer] Helper: Lui sA Peng MD Staging: Normal [facility] Comment on above: Result Comment: Stag e 1: Some kidney damage normal GFR Stage 2: Mild kidney damage GFR 60-89 Stage 3: Moderate kidney damage GFR 30-59 Stage 4: Severe kidney damage GFR 15-29 Stage 5: Severe kidney damage GFR <15 ESRD - chronic treatment by dialysis or transplant Performed By: #### P HEP, HIVCMB #### [address] [address] [employer] Helper: Alvino Davila MD #### CP, CBC, HCG #### [address] [place], [place] 133[address]83 [employer] Helper: Luis A Peng MD Urea nitrogen [Mass/Vol] 11 mg/dL Normal 6-20 [facility] Comment on above: Performed By: #### P HEP, HIVCMB #### [address] [address] [employer] Helper: Alvino Davila MD #### CP, CBC, HCG #### [address] [place] [address] [employer] Helper: Luis A Peng MD Comprehensive Metabolic Pane liu 01-01-2020 Albumin [Mass/Vol] 4.2 g/dL 3.5 - 5.2 g/dL [place], [place] Albumin/Globulin [Mass ratio] 1.7 {ratio} [place] ALP [Catalytic activity/Vol] 69 U/L 35 - 104 U/L [place] ALT [Catalytic activity/Vol] 78 U/L High 5 - 33 U/L [place] Anion gap [Moles/Vol] 9 mmol/L 9 - 17 mmol/L [place] AST [Catalytic activity/Vol] 44 U/L High <32 [place] Bilirubin Ql (U) 0.15 mg/dL Low 0.3 - 1.2 mg/dL [place], [place] Bun/Cre Ratio 20 [place], [place] Calcium [Mass/Vol] 9.4 mg/dL 8.6 - 10.4 mg/dL [place] Chloride [Moles/Vol] 97 mmol/L Low 98 - 107 mmol/L [place] CO2 [Moles/Vol] 28 mmol/L 20 - 31 mmol/L [place] Creatinine [Mass/Vol] 0.55 mg/dL 0.5 - 0.9 mg/dL [place] GFR >60 >60 mL/min [place] GFR Non- >60 >60 mL/min [place] Glucose [Mass/Vol] 85 mg/dL 70 - 99 mg/dL [place] Interpretation and review of laboratory results Abnormal [place] Potassium [Moles/Vol] 4.3 mmol/L 3.7 - 5.3 mmol/L [place] Protein [Mass/Vol] 6.7 g/dL 6.4 - 8.3 g/dL [place] Sodium [Moles/Vol] 134 mmol/L Low 135 - 144 mmol/L [place] Urea nitrogen [Mass/Vol] 11 mg/dL 6 - 20 mg/dL [place] HCG Qualitative, Serumon 03- 02-2020 hCG Qual Negative NEGATIVE [place] Comment on above: Specimens with hCG l evels near the threshold of the test (25 mIU/mL) may give a negative or indeterminate result. In such cases, another test should be performed with a new specimen in 48-72 hours. If early is suspected clinically in this setting, correlation with quantitative serum b-hCG level is suggested. [facility] has confirmed the use of plasma for this test. This has not been cleared or approved by the U.S. Food and Drug Administration. The FDA has determined that such clearance is not necessary. HCG Screen, Bloodon 01-01-20 20 HCG Qn Negative Normal NEG [facility] Comment on above: Result Comment: Spec imens with hCG levels near the threshold of the test (25 mIU/mL) may give a negative or indeterminate result. In such cases, another test should be performed with a new specimen in 48-72 hours. If early is suspected clinically in this setting, correlation with quantitative serum b-hCG level is suggested. [facility] has confirmed the use of plasma for this test. This has not been cleared or approved by the U.S. Food and Drug Administration. The FDA has determined that such clearance is not necessary. Performed By: #### P HEP, HIVCMB #### [place] [id number] [place], [place] [id number] [employer] Helper: Alvino Davila MD #### CP, CBC, HCG #### [address] [place] [address] [employer] Helper: Luis A Peng MD HIV Ag/Abon 01-01-2020 HIV Ag/Ab NONREACTIVE Normal NR [facility] Comment on above: Result Comment: No l aboratory evidence of HIV infection. If acute HIV infection is suspected, consider testing for HIV-1 RNA. Performed By: #### P HEP, HIVCMB #### [facility] [address] [place] [address] [employer] Helper: Alvino Davila MD #### CP, CBC, HCG #### [facility] [address] [place] [address] [place] [address] [employer] Helper: Luis A Peng MD HIV Screenon 01-01-2020 HIV Ag/Ab NONREACTIVE NONREACTIVE [place] Comment on above: No laboratory eviden ce of HIV infection. If acute HIV infection is suspected, consider testing for HIV-1 RNA. Hepatitis Acute [facility] 12-31 Hep A Ab,IgM NONREACTIVE Normal NR [facility] Comment on above: Performed By: #### P HEP, HIVCMB #### [address] [address] [employer] Helper: Alvino Davila MD #### CP, CBC, HCG #### [address] [place] [address] [employer] Helper: Luis A Peng MD Hep B Core Ab,IgM NONREACTIVE Normal [facility] Comment on above: Performed By: #### P HEP, HIVCMB #### [address] [address] [employer] Helper: Alvino Davila MD #### CP, CBC, HCG #### [facility] [address] [place] [address] [place] [address] [employer] Helper: Luis A Peng MD Hep B Surf Ag NONREACTIVE Normal [facility] Comment on above: Performed By: #### P HEP, HIVCMB #### [address] [address] [employer] Helper: Alvino Davila MD #### CP, CBC, HCG #### [facility] [address] [place] [address] [place] [address] [employer] Helper: Luis A Peng MD Hep C Ab NONREACTIVE [facility] Comment on above: Result Comment: The hepatitis [...] Performed By: #### P HEP, HIVCMB #### [facility] [address] [place] [address] [employer] Helper: Alvino Davila MD #### CP, CBC, HCG #### [facility] [address] [place] [address] [employer] Helper: Luis A Peng MD Hepatitis Panel, Acuteon HAV IgM IA Qn (S) NONREACTIVE NONREACTIVE [place] Hep B Core Ab, IgM NONREACTIVE NONREACTIVE [place] Hepatitis B Surface Ag NONREACTIVE NONREACTIVE [place] Hepatitis C Ab NONREACTIVE NONREACTIVE [place] Comment on above: The hepatitis C [...] predicted among non-blacks MDRD (S/P/Bld) [Vol rate/Area] [place] Comment on above: Stage 1: Some [...] body mass. Additional eGFR calculator available at: http://www.Prifloat.My eShoe/multiple_crcl_2012.htm Encounters Encounter Date Encounter Type Care Provider Facility Start: 12-10-2022 End: 12-10-[address] JOYCE MORRELL Facility: Start: 09-02-2022 End: 09-03-2022 ambulatory ROMEO GAR Facility:[facility] Start: 07-29-2022 End: 07-29-2022 ambulatory LUCINA MARCELINO Facility:[facility] Start: 07-11-2022 End: 07-12-[address] BROOKE STEWART Facility:[facility] Start: 06-15-2022 End: 06-15-[address] JOYCE MORRELL Facility:[facility] Start: 05-11-2022 End: 05-11-[address] MALLY POTTER Facility:[facility] Start: 03-27-2021 End: 03-28-2021 ambulatory Rody Monk MD Facility:[facility] Start: 12-06-2020 End: 12-07-2020 Patient encounter procedure [facility] Start: 12-06-2020 End: 12-06-2020 Subsequent hospital visit by physician [facility] Start: 11-11-2020 End: 11-12-2020 Patient encounter procedure [facility] Start: 05-30-2020 End: 05-31-2020 Patient encounter procedure [facility] Start: 05-30-2020 End: 05-30-2020 Subsequent hospital visit by physician [facility] Start: 01-01-2020 End: 01-02-2020 Patient encounter procedure [facility] Start: 01-01-2020 End: 01-01-2020 Subsequent hospital visit by physician [facility] Start: 09-20-2018 End: 09-21-2018 Patient encounter procedure Sidney Nava Facility:[id number] Procedures Date Procedure Procedure Detail Performing Clinician Start: 12-06-2020 Acute hepatitis panel E roopaandrae Catrina Work Phone: Start: 12-06-2020 Antibody hiv-1&hiv-2 single result Malini Fritz Work Phone: Start: 12-06-2020 Blood count complete automated Malini Fritz Work Phone: Start: 12-06-2020 Comprehensive metabo lic panel Malini Fritz Work Phone: Start: 12-06-2020 Gonadotropin chorion ic qualitative Malini Fritz Work Phone: Start: 05-30-2020 Acute hepatitis panel [...] Phone: Start: 05-30-2020 Blood count complete automated Malini Catrina Work Phone: Start: 05-30-2020 Comprehensive metabo [...] 07-02-2020 Influenza vaccination Flu vaccine (# 1) [facility] [place] Payers Date Payer Category Payer Unknown 2019 Unknown [facility] xxxxxxxxxxxx 2019-Present [phone] [address] [place] [address] xxxxxxxxxxxx [id number] 2019 Unknown [facility] [id number] 2019-Present [phone] [address] [place] [address] [id number] 1992 Unknown [id number] 1992 Unknown [id number] 1992 Unknown [id number] [id number] 1992 Unknown [id number] [id number] 1992 Unknown [id number] [id number] 1992 Unknown [id number] [id number] 1992 Unknown [id number] [id number] 1992 Unknown [id number] [id number] 1992 Unknown [id number] [id number] 1992 Unknown [id number] [id number] 1992 Unknown [id number] 1959 Unknown [id number] Social History Date Type Detail Facility Tobacco smoking status NHIS Unknown if ev er smoked [facility] JESSENIA Sex Assigned At Not on file [place] Summary Purpose Family History No Family History Records FoundNo Family History Records FoundNo Family History Records FoundNo Family History Records Found Advance Directives No Advanced Directives Records FoundDocuments on File Type Date Recorded 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 Advance Directives and Living Will Power of Ivory Polisher Documents on File Type Date Recorded 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 [employer] [facility]. provides no warranty or guarantee of the accuracy or completeness of information in this document.
[2024-07-10 13:07] LABS: Internal Control Within Normal Limits; SARS-CoV-2 Ag POSITIVE (NEGATIVE)
== END 2024-07-10 12:28 | disposition home or self-care (01) ==
LOC: LAB 12:27
PROVIDERS: PCP Nurse Practitioner Family; Visit Provider Nurse Practitioner Family
DX: R05.1 Acute cough (principal)
CPT/HCPCS: 87811

== ENCOUNTER 2024-09-20 05:08 | Emergency (ER) | payer OTHER, SELFPAY ==
--- OUTSIDE RECORDS SUMMARY | 2024-09-20 05:14 | XMS_ITS | CCD ---
Author Organization [facility] Informat ion Partnership [employer] [facility] Care Team Providers Care Director Of Occupational Therapy Name Role Phone Sidney Nava Unavailable Unavailable Unavailable Primary Care Provider Unavailabl e Unavailable Primary Care Provider Unavailabl e MALINI FRITZ Referring Unavailable CATRINA, MALINI Referring Unavailable CATRINAMALINI Referring Unavailable CATRINA, MALINI Referring Unavailable Lacho BRINK, Rody Ross Attending [...] source) Penicillins Drug allergy (disorder) 04-10-2013 [facility] Repository Problems Active Problems Problem Classification Problem [...] 07-31-2022 Episodic Other aftercare (5 sources) 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 Normal [facility] Comment on above: Performed By: #### D SDOALC #### [facility] [address] [address] [address] Roberto Parmar Summary FINAL Normal [facility] Comment on above: Result Comment: === TOXASSURE [...] is an expected metabolite of dextromethorphan, an npdj-dgu-vlojwar or prescription cough suppressant. Levorphanol is a scheduled prescription medication. Dextrorphan cannot be distinguished from levorphanol by the method used for analysis. Guaifenesin PRESENT UNEXPECTED Guaifenesin may be administered as an rpvg-sgg-flantcg or prescription drug; it may also be [...] === Performed By: #### D SDOALC #### [facility] [address] [place] [address] Dr. Roberto Parmar URIC ACID RAND URINEon 09-03 Uric Acid, Urine 12.4 mg/dL Normal Not Estab. [facility] Comment on above: Performed By: #### U RICUR #### [facility] [address] [address] [address] Roberto Parmar DRUG SCREEN RAPID (URINE)on 09-02-2022 AMP Negative Normal NEGATIVE [facility] Comment on above: Performed By: #### D RUGRPD #### [facility] [address] [place] [address] Dr. Roberto Parmar BAR Negative Normal NEGATIVE [facility] Comment on above: Performed By: #### D RUGRPD #### [facility] [address] [address] [address] Robetro Parmar BUP Positive Abnormal NEGATIVE [facility] Comment on above: Performed By: #### D RUGRPD #### [facility] [address] [place] [address] Dr. Roberto Parmar BZO Positive Abnormal NEGATIVE [facility] Comment on above: Performed By: #### D RUGRPD #### [facility] [address] [address] [address] Roberto Parmar BRITTANY Negative Normal NEGATIVE [facility] Comment on above: Performed By: #### D RUGRPD #### [facility] [address] [place] [address] Dr. Roberto Parmar CUT-OFFS SEE BELOW Normal [facility] Comment on above: Result Comment: AMP (Amphetamine): 500ng/mL, BAR (Barbituates): 200 ng/mL, BZO (Benzodiazepines): 150 ng/mL, BUP (Buprenorphine): 10 ng/mL, BRITTANY (Cocaine): 150 ng/mL, mAMP (Methamphetamine): 500 ng/mL, MTD (Methadone): 200 ng/mL, OPI (Opiates): 100 ng/mL, OXY (Oxycodone): 100 ng/mL, PCP (Phencyclidine): 25 ng/mL, PPX (Propoxyphene): 300 ng/mL, THC (Cannabinoids): 50 ng/mL, TCA (Trycyclic Antidepressants): 300 ng/mL Performed By: #### D RUGRPD #### [facility] [address] [place] [address] Dr. Roberto Parmar DRUG CUT HEADER DRUG CLASS TEST SYSTEM CUT-OFF CONCENTRATIONS ARE FOLLOWS: Normal [facility] Comment on above: Performed By: #### D RUGRPD #### [facility] [address] [place] [address] Dr. Roberto Parmar mAMP Negative Normal NEGATIVE [facility] Comment on above: Performed By: #### D RUGRPD #### [facility] [address] [address] [address] Roberto Parmar MTD Negative Normal NEGATIVE [facility] Comment on above: Performed By: #### D RUGRPD #### [facility] [address] [address] [address] Roberto Parmar OPI Negative Normal NEGATIVE [facility] Comment on above: Performed By: #### D RUGRPD #### [facility] [address] [place] [address] Dr. Roberto Parmar OXY Negative Normal NEGATIVE [facility] Comment on above: Performed By: #### D RUGRPD #### [facility] [address] [address] [address] Roberto Parmar PCP Negative Normal NEGATIVE [facility] Comment on above: Performed By: #### D RUGRPD #### [facility] [address] [place] [address] Dr. Roberto Parmar PPX Negative Normal NEGATIVE [facility] Comment on above: Performed By: #### D RUGRPD #### [facility] [address] [place] [address] Dr. Roberto Parmar TCA Negative Normal NEGATIVE [facility] Comment on above: Performed By: #### D RUGRPD #### [facility] [address] [place] [address] Dr. Roberto Parmar THC Negative Normal NEGATIVE [facility] Comment on above: Performed By: #### D RUGRPD #### [facility] [address] [place] [address] Dr. Roberto Parmar US PELVIS AND TRANSVAGon [...] by: MAYUR ALLEN Date: 2022-07-13 07:21 Normal [facility] PAP ACOG PANEL 2: 21 to 29on 06-18-2022 . . Normal [facility] Comment on above: Performed By: #### [id number] #### [facility] [address] [place] [address] Dr. Roberto Parmar Age Gdln ACOG Testing 21-29 Normal [facility] Comment on above: Performed By: #### [id number] #### [facility] [address] [place] [address] Dr. Roberto Parmar DIAGNOSIS: Comment Normal [facility] Comment on above: Result Comment: NEGA TIVE FOR INTRAEPITHELIAL LESION OR MALIGNANCY. Performed By: #### 4 [id number] #### [facility] [address] [place] [address] Dr. Roberto Parmar Methodology: Comment [facility] Comment on above: Result Comment: This liquid based ThinPrep(R) pap test was screened with the use of an image guided system. Performed By: #### 4 [id number] #### [facility] [address] [place] [address] Dr. Roberto Parmar Note: Comment [facility] Comment on above: Result Comment: The Pap smear is a screening test designed to aid in the detection of premalignant and malignant conditions of the uterine cervix. It is not a diagnostic procedure and should not be used as the sole means of detecting cervical cancer. Both false-positive and false-negative reports do occur. . Performed By: #### [id number] #### [facility] [address] [place] [address] Dr. Roberto Parmar Performed by: Comment Normal [facility] Comment on above: Result Comment: Kish[employer] (ASCP) Performed By: #### 4 [id number] #### [facility] [address] [place] [address] Dr. Roberto Parmar Reflex Criteria: Comment [facility] Comment on above: Result Comment: The HPV DNA reflex criteria were not met with this specimen result therefore, no HPV testing was performed. . Performed By: #### 4 [id number] #### [facility] [address] [place] [address] Dr. Roberto Parmar Specimen adequacy: Comment Normal [facility] Comment on above: Result Comment: Sati sfactory for evaluation. Endocervical and/or squamous metaplastic cells (endocervical component) are present. Performed By: #### 4 [id number] #### [facility] [address] [place] [address] Dr. Roberto Parmar CBCon 12-06-2020 Erythrocyte distribution width (RBC) [Ratio] 13.6 % Normal 11.8-14.4 [facility] Comment on above: Performed By: #### P HEP, HIVCMB #### [facility] [address] [place] [address] Advisory Intern: Alvino Davila MD #### CP, CBC, HCG #### [facility] [address] [place] [address] Advisory Intern: Luis A Peng MD Hematocrit (Bld) [Volume fraction] 44.1 % Normal 36.3-47.1 [facility] Comment on above: Performed By: #### P HEP, HIVCMB #### [facility] [address] [place], [place] [id number] Advisory Intern: Alvino Dvaila MD #### CP, CBC, HCG #### [facility] [address] [place] [address] Dr. [place], [place] [id number] Advisory Intern: Luis A Peng MD Hemoglobin (Bld) [Mass/Vol] 14.1 g/dL Normal 11.9-15.1 [facility] Comment on above: Performed By: #### P HEP, HIVCMB #### [address] [id number] Advisory Intern: Alvino Davila MD #### CP, CBC, HCG #### [address] [place] [address] Advisory Intern: Luis A Peng MD MCH (RBC) [Entitic mass] 25.4 pg Normal 25.2-33.5 [facility] Comment on above: Performed By: #### P HEP, HIVCMB #### [address] [id number] Advisory Intern: Alvino Davila MD #### CP, CBC, HCG #### [address] [place] [address] Advisory Intern: Luis A Peng MD MCHC (RBC) [Mass/Vol] 32.0 g/dL Normal 28.4-34.8 [facility] Comment on above: Performed By: #### P HEP, HIVCMB #### [address] [place], [place] [phone] Advisory Intern: Alvino Davila MD #### CP, CBC, HCG #### [facility] [address] [place] [address] [place] [address] Advisory Intern: Luis A Peng MD MCV (RBC) [Entitic vol] 79.5 fL Low 82.6-102.9 [facility] Comment on above: Performed By: #### P HEP, HIVCMB #### [facility] [address] [place] [address] Advisory Intern: Alvino Davila MD #### CP, CBC, HCG #### [facility] [address] [place], [place] [phone] Advisory Intern: Luis A Peng MD NRBC Automated 0.0 per 100 WBC Normal 0.0 [facility] Comment on above: Performed By: #### P HEP, HIVCMB #### [address] [address] Advisory Intern: Alvino Davila MD #### CP, CBC, HCG #### [facility] [address] [place], [place] [phone] Advisory Intern: Luis A Peng MD Platelet mean volume (Bld) [Entitic vol] 11.8 fL Normal 8.1-13.5 [facility] Comment on above: Performed By: #### P HEP, HIVCMB #### [address] [address] Advisory Intern: Alvino Davila MD #### CP, CBC, HCG #### [facility] [address] [place] [address] [place], [place] [id number] Advisory Intern: Luis A Peng MD Platelets (Bld) [#/Vol] 238 10*3/uL Normal 138-453 [facility] Comment on above: Performed By: #### P HEP, HIVCMB #### [facility] [address] [place] [address] Advisory Intern: Alvino Davila MD #### CP, CBC, HCG #### [facility] [address] [place], [place] [phone] Advisory Intern: Luis A Peng MD RBC (Bld) [#/Vol] 5.55 10*6/uL High 3.95-5.11 [facility] Comment on above: Performed By: #### P HEP, HIVCMB #### [facility] [address] [place], [place] [id number] Advisory Intern: Alvino Davila MD #### CP, CBC, HCG #### [facility] [address] [place] [address] Advisory Intern: Luis A Peng MD WBC (Bld) [#/Vol] 8.6 10*3/uL Normal 3.5-11.3 [facility] Comment on above: Performed By: #### P HEP, HIVCMB #### [facility] [address] [place], [place] [phone] Advisory Intern: Alvino Davila MD #### CP, CBC, HCG #### [facility] [address] [place] [address] Advisory Intern: Luis A Peng MD Erythrocyte distribution width (RBC) [Ratio] 13.6 % 11.8 - 14.4 % [place] Hematocrit (Bld) [Volume fraction] 44.1 % 36.3 - 47.1 % [place] Hemoglobin (Bld) [Mass/Vol] 14.1 g/dL 11.9 - 15.1 g/dL [place] Interpretation and review of laboratory results Abnormal [place] MCH (RBC) [Entitic mass] 25.4 pg 25.2 - 33.5 pg [place] MCHC (RBC) [Mass/Vol] 32.0 g/dL 28.4 - 34.8 g/dL [place] MCV (RBC) [Entitic vol] 79.5 fL Low 82.6 - 102.9 fL [place] Platelet mean volume (Bld) [Entitic vol] 11.8 fL 8.1 - 13.5 fL [place] Platelets (Bld) [#/Vol] 238 10*3/uL [place] RBC (Bld) [#/Vol] 5.55 10*6/uL High 3.95 - 5.11 m/uL [place] WBC (Bld) [#/Vol] 8.6 10*3/uL [place] WBC (Bld) [#/Vol] 0.0 10*3/uL 0.0 per 100 WBC M [place], [place] Comp Metabolic Profon 2020 (cont.) Normal [facility] Comment on above: Result Comment: Aver age GFR for 20-29 years old: 116 mL/min/1.73sq m Chronic Kidney Disease: <60 mL/min/1.73sq m Kidney failure: <15 mL/min/1.73sq m eGFR calculated using average adult body mass. Additional eGFR calculator available at: http://www.[employer]/multiple_crcl_2012.htm Performed By: #### P HEP, HIVCMB #### [address] [id number] Advisory Intern: Alvino Davila MD #### CP, CBC, HCG #### [facility] [address] [place] [address] [place] [address] Advisory Intern: Luis A Peng MD Albumin [Mass/Vol] 4.6 g/dL Normal 3.5-5.2 [facility] Comment on above: Performed By: #### P HEP, HIVCMB #### [address] [id number] Advisory Intern: Alvino Davila MD #### CP, CBC, HCG #### [facility] [address] [place] [address] [place] [address] Advisory Intern: Luis A Peng MD Albumin/Globulin [Mass ratio] 1.6 {ratio} Normal 1.0-2.5 [facility] Comment on above: Performed By: #### P HEP, HIVCMB #### [address] [id number] Advisory Intern: Alvino Davila MD #### CP, CBC, HCG #### [facility] [address] [place], [place] [phone] Advisory Intern: Luis A Peng MD Alkaline Phos 81 U/L Normal 35-104 [facility] [place] Comment on above: Performed By: #### P HEP, HIVCMB #### [address] [address] Advisory Intern: Alvino Davila MD #### CP, CBC, HCG #### [facility] [address] [place], [place] [phone] Advisory Intern: Luis A Peng MD ALT [Catalytic activity/Vol] 39 U/L High 5-33 [facility] Comment on above: Performed By: #### P HEP, HIVCMB #### [address] [address] Advisory Intern: Alvino Davila MD #### CP, CBC, HCG #### [address] [place], [place] [phone] Advisory Intern: Luis A Peng MD Anion gap [Moles/Vol] 12 mmol/L Normal 9-17 [facility] Comment on above: Performed By: #### P HEP, HIVCMB #### [address] [address] Advisory Intern: Alvino Davila MD #### CP, CBC, HCG #### [address] [place], [place] [phone] Advisory Intern: Luis A Peng MD AST [Catalytic activity/Vol] 28 U/L Normal <32 [facility] Comment on above: Performed By: #### P HEP, HIVCMB #### [address] [address] Advisory Intern: Alvino Davila MD #### CP, CBC, HCG #### [address] [place] [phone] Advisory Intern: Luis A Peng MD Bilirubin Ql (U) 0.26 mg/dL Low 0.3-1.2 [facility] Comment on above: Performed By: #### P HEP, HIVCMB #### [address] [id number] Advisory Intern: Alvino Davila MD #### CP, CBC, HCG #### [address] [place] [phone] Advisory Intern: Luis A Peng MD BUN/CRE Ratio 14 Normal 9-20 [facility] [place] Comment on above: Performed By: #### P HEP, HIVCMB #### [address] [address] Advisory Intern: Alvino Davila MD #### LAURA, CBC, HCG #### [address] [place] [phone] Advisory Intern: Luis A Peng MD Calcium [Mass/Vol] 10.1 mg/dL Normal 8.6-10.4 [facility] Comment on above: Performed By: #### P HEP, HIVCMB #### [address] [address] Advisory Intern: Alvino Davila MD #### CP, CBC, HCG #### [address] [place] [phone] Advisory Intern: Luis A Peng MD Chloride [Moles/Vol] 101 mmol/L Normal 98-107 [facility] Comment on above: Performed By: #### P HEP, HIVCMB #### [address] [address] Advisory Intern: Alvino Davila MD #### CP, CBC, HCG #### [address] [place] [phone] Advisory Intern: Luis A Peng MD CO2 [Moles/Vol] 26 mmol/L Normal 20-31 [facility] Comment on above: Performed By: #### P HEP, HIVCMB #### [facility] [address] [place] [address] Advisory Intern: Alvino Davila MD #### CP, CBC, HCG #### [facility] [address] [place] [address] Advisory Intern: Luis A Peng MD Creatinine [Mass/Vol] 0.49 mg/dL Low 0.50-0.90 [facility] Comment on above: Performed By: #### P HEP, HIVCMB #### [address] [id number] Advisory Intern: Alvino Davila MD #### CP, CBC, HCG #### [facility] [address] [place] [address] Advisory Intern: Luis A Peng MD GFR, Amer >60 Normal >60 [facility] Comment on above: Performed By: #### P HEP, HIVCMB #### [facility] [address] [place] [address] Advisory Intern: Alvino Davila MD #### CP, CBC, HCG #### [facility] [address] [place], [place] [phone] Advisory Intern: Luis A Peng MD GFR,non Amer >60 Normal >60 [facility] Comment on above: Performed By: #### P HEP, HIVCMB #### [facility] [address] [place] [address] Advisory Intern: Alvino Davila MD #### CP, CBC, HCG #### [facility] [address] [place], [place] [phone] Advisory Intern: Luis A Peng MD Glucose [Mass/Vol] 101 mg/dL High 70-99 [facility] Comment on above: Performed By: #### P HEP, HIVCMB #### [address] [place] [address] Advisory Intern: Alvino Davila MD #### CP, CBC, HCG #### [facility] [address] [place] [address] Dr. [place], [place] [id number] Advisory Intern: Luis A Peng MD Potassium [Moles/Vol] 4.2 mmol/L Normal 3.7-5.3 [facility] Comment on above: Performed By: #### P HEP, HIVCMB #### [address] [id number] Advisory Intern: Alvino Davila MD #### CP, CBC, HCG #### [facility] [address] [place] [address] Dr. [place], [place] [phone] Advisory Intern: Luis A Peng MD Protein [Mass/Vol] 7.5 g/dL Normal 6.4-8.3 [facility] Comment on above: Performed By: #### P HEP, HIVCMB #### [address] [address] Advisory Intern: Alvino Davila MD #### CP, CBC, HCG #### [facility] [address] [place] [address] Dr. [place], [place] [phone] Advisory Intern: Luis A Peng MD Sodium [Moles/Vol] 139 mmol/L Normal 135-144 [facility] Comment on above: Performed By: #### P HEP, HIVCMB #### [address] [address] Advisory Intern: Alvino Davila MD #### CP, CBC, HCG #### [address] [place], [place] [phone] Advisory Intern: Luis A Peng MD Staging: Normal [facility] Comment on above: Result Comment: Stag e 1: Some kidney damage normal GFR Stage 2: Mild kidney damage GFR 60-89 Stage 3: Moderate kidney damage GFR 30-59 Stage 4: Severe kidney damage GFR 15-29 Stage 5: Severe kidney damage GFR <15 ESRD - chronic treatment by dialysis or transplant Performed By: #### P HEP, HIVCMB #### [facility] [address] [place], [place] [phone] Advisory Intern: Alvino Davila MD #### CP, CBC, HCG #### [facility] [address] [place] [address] Advisory Intern: Luis A Peng MD Urea nitrogen [Mass/Vol] 7 mg/dL Normal 6-20 [facility] Comment on above: Performed By: #### P HEP, HIVCMB #### [facility] [address] [place], [place] 1976[address] Advisory Intern: Alvino Davila MD #### CP, CBC, HCG #### [facility] [address] [place] [address] Advisory Intern: Luis A Peng MD Comprehensive Metabolic Pane [facility] 12-06-2020 Albumin [Mass/Vol] 4.6 g/dL 3.5 - 5.2 g/dL [place] Albumin/Globulin [Mass ratio] 1.6 {ratio} [place] ALP [Catalytic activity/Vol] 81 U/L 35 - 104 U/L [place] ALT [Catalytic activity/Vol] 39 U/L High 5 - 33 U/L [place] Anion gap [Moles/Vol] 12 mmol/L 9 - 17 mmol/L [place] AST [Catalytic activity/Vol] 28 U/L <32 [place] Bilirubin Ql (U) 0.26 mg/dL Low 0.3 - 1.2 mg/dL [place] Bun/Cre Ratio 14 [place] Calcium [Mass/Vol] 10.1 mg/dL 8.6 - 10.4 mg/dL [place] Chloride [Moles/Vol] 101 mmol/L 98 - 107 mmol/L [place] CO2 [Moles/Vol] 26 mmol/L 20 - 31 mmol/L [place] Creatinine [Mass/Vol] 0.49 mg/dL Low 0.5 - 0.9 mg/dL [place] GFR >60 >60 mL/min [place] GFR Non- >60 >60 mL/min [place] Glucose [Mass/Vol] 101 mg/dL High 70 - 99 mg/dL [place] Interpretation and review of laboratory results Abnormal [place] Potassium [Moles/Vol] 4.2 mmol/L 3.7 - 5.3 mmol/L [place] Protein [Mass/Vol] 7.5 g/dL 6.4 - 8.3 g/dL [place] Sodium [Moles/Vol] 139 mmol/L 135 - 144 mmol/L [place] Urea nitrogen [Mass/Vol] 7 mg/dL 6 - 20 mg/dL [place] HCG Qualitative, Serumon hCG Qual Negative NEGATIVE [place] Comment on above: Specimens with hCG l evels near the threshold of the test (25 mIU/mL) may give a negative or indeterminate result. In such cases, another test should be performed with a new specimen in 48-72 hours. If early is suspected clinically in this setting, correlation with quantitative serum b-hCG level is suggested. [employer] has confirmed the use of plasma for this test. This has not been cleared or approved by the U.S. Food and Drug Administration. The FDA has determined that such clearance is not necessary. HCG Screen, Bloodon 12-06-19 21 HCG Qn Negative Normal NEG [facility] Comment on above: Result Comment: Spec imens with hCG levels near the threshold of the test (25 mIU/mL) may give a negative or indeterminate result. In such cases, another test should be performed with a new specimen in 48-72 hours. If early is suspected clinically in this setting, correlation with quantitative serum b-hCG level is suggested. [employer] has confirmed the use of plasma for this test. This has not been cleared or approved by the U.S. Food and Drug Administration. The FDA has determined that such clearance is not necessary. Performed By: #### P HEP, HIVCMB #### [address] [place] [address] Advisory Intern: Alvino Davila MD #### CP, CBC, HCG #### [address] [place] [address] Advisory Intern: Luis A Peng MD HIV Ag/Abon 12-06-2020 HIV Ag/Ab NONREACTIVE Normal [facility] Comment on above: Result Comment: No l aboratory evidence of HIV infection. If acute HIV infection is suspected, consider testing for HIV-1 RNA. Performed By: #### P HEP, HIVCMB #### [address] [address] Advisory Intern: Alvino Davila MD #### CP, CBC, HCG #### [address] [place] [address] Advisory Intern: Luis A Peng MD HIV Screenon 12-06-2020 HIV Ag/Ab NONREACTIVE NONREACTIVE [place] Comment on above: No laboratory eviden ce of HIV infection. If acute HIV infection is suspected, consider testing for HIV-1 RNA. Hepatitis Acute [facility] 12-06 Hep A Ab,IgM NONREACTIVE Normal NR [facility] [place] Comment on above: Performed By: #### P HEP, HIVCMB #### [address] [address] Advisory Intern: Alvino Davila MD #### CP, CBC, HCG #### [address] [place] [address] Advisory Intern: Luis A Peng MD Hep B Core Ab,IgM NONREACTIVE Normal [facility] [place] Comment on above: Performed By: #### P HEP, HIVCMB #### [address] [address] Advisory Intern: Alvino Davila MD #### CP, CBC, HCG #### [facility] [address] [place], [place] [phone] Advisory Intern: Luis A Peng MD Hep B Surf Ag NONREACTIVE Normal [facility] Comment on above: Performed By: #### P HEP, HIVCMB #### [facility] [address] [place], [place] [phone] Advisory Intern: Alvino Davila MD #### CP, CBC, HCG #### [facility] [address] [place], [place] [phone] Advisory Intern: Luis A Peng MD Hep C Ab REACTIVE Abnormal [facility] [place] Comment on above: Result Comment: The hepatitis [...] Performed By: #### P HEP, HIVCMB #### [address] [address] Advisory Intern: Alvino Davila MD #### CP, CBC, HCG #### [address] [place] [address] Advisory Intern: Luis A Peng MD Hepatitis Panel, [facility] HAV IgM IA Qn (S) NONREACTIVE NONREACTIVE [facility], [place] Hep B Core Ab, IgM NONREACTIVE NONREACTIVE [facility], [place] Hepatitis B Surface Ag NONREACTIVE NONREACTIVE [facility], [place] Hepatitis C Ab REACTIVE Abnormal NONREACTIVE [place], [place] Comment on above: The hepatitis C [...] Interpretation and review of laboratory results Abnormal [place], [place] Metabolic Panelon 12-06-2020 GFR/1.73 sq M predicted among non-blacks MDRD (S/P/Bld) [Vol rate/Area] [place], [place] Comment on above: Stage 1: Some [...] body mass. Additional eGFR calculator available at: http://www.[employer]/multiple_crcl_2012.htm CBCon 05-30-2020 Erythrocyte distribution width (RBC) [Ratio] 12.7 % Normal 11.8-14.4 [facility] Comment on above: Performed By: #### C P, HCG, CBC #### [facility] [address] [place] [address] [place] [address] Advisory Intern: Luis A Peng MD #### HIVCMB, PHEP #### [address] [address] Advisory Intern: Alvino Davila MD Hematocrit (Bld) [Volume fraction] 39.2 % Normal 36.3-47.1 [facility] Comment on above: Performed By: #### C P, HCG, CBC #### [facility] [address] [place] [address] Advisory Intern: Luis A Peng MD #### HIVCMB, PHEP #### [address] [address] Advisory Intern: Alvino Davila MD Hemoglobin (Bld) [Mass/Vol] 12.3 g/dL Normal 11.9-15.1 [facility] Comment on above: Performed By: #### C P, HCG, CBC #### [address] [place] [address] Advisory Intern: Luis A Peng MD #### HIVCMB, PHEP #### [address] [phone] Advisory Intern: Alvino Davila MD MCH (RBC) [Entitic mass] 26.2 pg Normal 25.2-33.5 [facility] Comment on above: Performed By: #### C P, HCG, CBC #### [address] [place] [phone] Advisory Intern: Luis A Peng MD #### HIVCMB, PHEP #### [address] [phone] Advisory Intern: Alvino Davila MD MCHC (RBC) [Mass/Vol] 31.4 g/dL Normal 28.4-34.8 [facility] Comment on above: Performed By: #### C P, HCG, CBC #### [address] [place] [phone] Advisory Intern: Luis A Peng MD #### HIVCMB, PHEP #### [address] [phone] Advisory Intern: Alvino Davila MD MCV (RBC) [Entitic vol] 83.6 fL Normal 82.6-102.9 [facility] Comment on above: Performed By: #### C P, HCG, CBC #### [address] [place] [address] Advisory Intern: Luis A Peng MD #### HIVCMB, PHEP #### [address] [phone] Advisory Intern: Alvino Davila MD NRBC Automated 0.0 per 100 WBC Normal 0.0 [facility] Comment on above: Performed By: #### C P, HCG, CBC #### [address] [place] [phone] Advisory Intern: Luis A Peng MD #### HIVCMB, PHEP #### [address] [phone] Advisory Intern: Alvino Davila MD Platelet mean volume (Bld) [Entitic vol] 10.9 fL Normal 8.1-13.5 [facility] Comment on above: Performed By: #### C P, HCG, CBC #### [address] [place] [phone] Advisory Intern: Luis A Peng MD #### HIVCMB, PHEP #### [place] [phone] Advisory Intern: Alvino Davila MD Platelets (Bld) [#/Vol] 277 10*3/uL Normal 138-453 [facility] Comment on above: Performed By: #### C P, HCG, CBC #### [address] [place] [phone] Advisory Intern: Luis A Peng MD #### HIVCMB, PHEP #### [place] [address] Advisory Intern: Alvino Davila MD RBC (Bld) [#/Vol] 4.69 10*6/uL Normal 3.95-5.11 [facility] Comment on above: Performed By: #### C P, HCG, CBC #### [facility] [address] [place] [address] [place] [address] Advisory Intern: Luis A Peng MD #### HIVCMB, PHEP #### [address] [phone] Advisory Intern: Alvino Davila MD WBC (Bld) [#/Vol] 5.5 10*3/uL Normal 3.5-11.3 [facility] Comment on above: Performed By: #### C P, HCG, CBC #### [facility] [address] [place] [address] Advisory Intern: Luis A Peng MD #### HIVCMB, PHEP #### [facility] [address] [place], [place] [phone] Advisory Intern: Alvino Davila MD Erythrocyte distribution width (RBC) [Ratio] 12.7 % 11.8 - 14.4 % [place] Hematocrit (Bld) [Volume fraction] 39.2 % 36.3 - 47.1 % [place] Hemoglobin (Bld) [Mass/Vol] 12.3 g/dL 11.9 - 15.1 g/dL [place] MCH (RBC) [Entitic mass] 26.2 pg 25.2 - 33.5 pg [place] MCHC (RBC) [Mass/Vol] 31.4 g/dL 28.4 - 34.8 g/dL [place] MCV (RBC) [Entitic vol] 83.6 fL 82.6 - 102.9 fL [place] Platelet mean volume (Bld) [Entitic vol] 10.9 fL 8.1 - 13.5 fL [place] Platelets (Bld) [#/Vol] 277 10*3/uL [place] RBC (Bld) [#/Vol] 4.69 10*6/uL 3.95 - 5.11 m/uL [place] WBC (Bld) [#/Vol] 5.5 10*3/uL [place] WBC (Bld) [#/Vol] 0.0 10*3/uL 0.0 per 100 WBC M [place], [place] Comp Metabolic Profon 2019 (cont.) Normal [facility] Comment on above: Result Comment: Aver age GFR for 20-29 years old: 116 mL/min/1.73sq m Chronic Kidney Disease: <60 mL/min/1.73sq m Kidney failure: <15 mL/min/1.73sq m eGFR calculated using average adult body mass. Additional eGFR calculator available at: http://www.[employer]/multiple_crcl_2012.htm Performed By: #### C P, HCG, CBC #### [address] [place] [phone] Advisory Intern: Luis A Peng MD #### HIVCMB, PHEP #### [place] [address] [place] [address] Advisory Intern: Alvino Davila MD Albumin [Mass/Vol] 3.4 g/dL Low 3.5-5.2 [facility] Comment on above: Performed By: #### C P, HCG, CBC #### [address] [place] [phone] Advisory Intern: Luis A Peng MD #### HIVCMB, PHEP #### [place] [address] [place] [address] Advisory Intern: Alvino Davila MD Albumin/Globulin [Mass ratio] 1.1 {ratio} Normal 1.0-2.5 [facility] Comment on above: Performed By: #### C P, HCG, CBC #### [address] [place] [phone] Advisory Intern: Luis A Peng MD #### HIVCMB, PHEP #### [place] [address] [place] [address] Advisory Intern: Alvino Davila MD Alkaline Phos 130 U/L High 35-104 [facility] [place] Comment on above: Performed By: #### C P, HCG, CBC #### [address] [place] [address] Advisory Intern: Luis A Peng MD #### HIVCMB, PHEP #### [address] [phone] Advisory Intern: Alvino Davila MD ALT [Catalytic activity/Vol] 33 U/L Normal 5-33 [facility] Comment on above: Performed By: #### C P, HCG, CBC #### [facility] [address] [place] [phone] Advisory Intern: Luis A Peng MD #### HIVCMB, PHEP #### [address] [phone] Advisory Intern: Alvino Davila MD Anion gap [Moles/Vol] 7 mmol/L Low 9-17 [facility] Comment on above: Performed By: #### C P, HCG, CBC #### [facility] [address] [place] [phone] Advisory Intern: Luis A Peng MD #### HIVCMB, PHEP #### [address] [phone] Advisory Intern: Alvino Davila MD AST [Catalytic activity/Vol] 35 U/L High <32 [facility] Comment on above: Performed By: #### C P, HCG, CBC #### [facility] [address] [place] [phone] Advisory Intern: Luis A Peng MD #### HIVCMB, PHEP #### [address] [phone] Advisory Intern: Alvino Davila MD Bilirubin Ql (U) 0.16 mg/dL Low 0.3-1.2 [facility] Comment on above: Performed By: #### C P, HCG, CBC #### [facility] [address] [place], [place] [phone] Advisory Intern: Luis A Peng MD #### HIVCMB, PHEP #### [place] [address] [place] [address] Advisory Intern: Alvino Davila MD BUN/CRE Ratio 14 Normal 9-20 [facility] [place] Comment on above: Performed By: #### C P, HCG, CBC #### [facility] [address] [place], [place] [phone] Advisory Intern: Luis A Peng MD #### HIVCMB, PHEP #### [address] [phone] Advisory Intern: Alvino Davila MD Calcium [Mass/Vol] 9.2 mg/dL Normal 8.6-10.4 [facility] Comment on above: Performed By: #### C P, HCG, CBC #### [facility] [address] [place] [address] Dr. [place], [place] [phone] Advisory Intern: Luis A Peng MD #### HIVCMB, PHEP #### [address] [phone] Advisory Intern: Alvino Davila MD Chloride [Moles/Vol] 99 mmol/L Normal 98-107 [facility] Comment on above: Performed By: #### C P, HCG, CBC #### [facility] [address] [place] [address] Dr. [place], [place] [phone] Advisory Intern: Luis A Peng MD #### HIVCMB, PHEP #### [address] [phone] Advisory Intern: Alvino Davila MD CO2 [Moles/Vol] 29 mmol/L Normal 20-31 [facility] Comment on above: Performed By: #### C P, HCG, CBC #### [facility] [address] [place], [place] [phone] Advisory Intern: Luis A Peng MD #### HIVCMB, PHEP #### [address] [phone] Advisory Intern: Alvino Davila MD Creatinine [Mass/Vol] 0.63 mg/dL Normal 0.50-0.90 [facility] Comment on above: Performed By: #### C P, HCG, CBC #### [facility] [address] [place], [place] [phone] Advisory Intern: Luis A Peng MD #### HIVCMB, PHEP #### [facility] [address] [place], [place] [phone] Advisory Intern: Alvino Davila MD GFR, Amer >60 Normal >60 [facility] Comment on above: Performed By: #### C P, HCG, CBC #### [facility] [address] [place] [address] [place], [place] [phone] Advisory Intern: Luis A Peng MD #### HIVCMB, PHEP #### [address] [phone] Advisory Intern: Alvino Davila MD GFR,non Amer >60 Normal >60 [facility] Comment on above: Performed By: #### C P, HCG, CBC #### [facility] [address] [place] [address] [place], [place] [phone] Advisory Intern: Luis A Peng MD #### HIVCMB, PHEP #### [facility] [address] [place] [phone] Advisory Intern: Alvino Davila MD Glucose [Mass/Vol] 95 mg/dL Normal 70-99 [facility] Comment on above: Performed By: #### C P, HCG, CBC #### [facility] [address] [place], [place] [phone] Advisory Intern: Luis A Peng MD #### HIVCMB, PHEP #### [facility] [address] [place] [address] Advisory Intern: Alvino Davila MD Potassium [Moles/Vol] 4.3 mmol/L Normal 3.7-5.3 [facility] Comment on above: Performed By: #### C P, HCG, CBC #### [facility] [address] [place] [address] [place] [address] Advisory Intern: Luis A Peng MD #### HIVCMB, PHEP #### [address] [phone] Advisory Intern: Alvino Davila MD Protein [Mass/Vol] 6.5 g/dL Normal 6.4-8.3 [facility] Comment on above: Performed By: #### C P, HCG, CBC #### [address] [place] [address] Advisory Intern: Luis A Peng MD #### HIVCMB, PHEP #### [address] [phone] Advisory Intern: Alvino Davila MD Sodium [Moles/Vol] 135 mmol/L Normal 135-144 [facility] Comment on above: Performed By: #### C P, HCG, CBC #### [address] [place] [address] Advisory Intern: Luis A Peng MD #### HIVCMB, PHEP #### [address] [phone] Advisory Intern: Alvino Davila MD Staging: Normal [facility] Comment on above: Result Comment: Stag e 1: Some kidney damage normal GFR Stage 2: Mild kidney damage GFR 60-89 Stage 3: Moderate kidney damage GFR 30-59 Stage 4: Severe kidney damage GFR 15-29 Stage 5: Severe kidney damage GFR <15 ESRD - chronic treatment by dialysis or transplant Performed By: #### C P, HCG, CBC #### [address] [place] [address] Advisory Intern: Luis A Peng MD #### HIVCMB, PHEP #### [facility] [address] [place], [place] [phone] Advisory Intern: Alvino Davila MD Urea nitrogen [Mass/Vol] 9 mg/dL Normal 6-20 [facility] Comment on above: Performed By: #### C P, HCG, CBC #### [facility] [address] [place] [address] Advisory Intern: Luis A Peng MD #### HIVCMB, PHEP #### [facility] [address] [place] [address] Advisory Intern: Alvino Davila MD Comprehensive Metabolic Pane [facility] 05-30-2020 Albumin [Mass/Vol] 3.4 g/dL Low 3.5 - 5.2 g/dL [place] Albumin/Globulin [Mass ratio] 1.1 {ratio} [place] ALP [Catalytic activity/Vol] 130 U/L High 35 - 104 U/L [place] ALT [Catalytic activity/Vol] 33 U/L 5 - 33 U/L [place] Anion gap [Moles/Vol] 7 mmol/L Low 9 - 17 mmol/L [place] AST [Catalytic activity/Vol] 35 U/L High <32 [place] Bilirubin Ql (U) 0.16 mg/dL Low 0.3 - 1.2 mg/dL [place] Bun/Cre Ratio 14 [place] Calcium [Mass/Vol] 9.2 mg/dL 8.6 - 10.4 mg/dL [place] Chloride [Moles/Vol] 99 mmol/L 98 - 107 mmol/L [place] CO2 [Moles/Vol] 29 mmol/L 20 - 31 mmol/L [place] Creatinine [Mass/Vol] 0.63 mg/dL 0.5 - 0.9 mg/dL [place] GFR >60 >60 mL/min [place] GFR Non- >60 >60 mL/min [place] Glucose [Mass/Vol] 95 mg/dL 70 - 99 mg/dL [place] Interpretation and review of laboratory results Abnormal [place] Potassium [Moles/Vol] 4.3 mmol/L 3.7 - 5.3 mmol/L [place] Protein [Mass/Vol] 6.5 g/dL 6.4 - 8.3 g/dL [place] Sodium [Moles/Vol] 135 mmol/L 135 - 144 mmol/L [place] Urea nitrogen [Mass/Vol] 9 mg/dL 6 - 20 mg/dL [place] HCG Qualitative, Serumon hCG Qual Negative NEGATIVE [place] Comment on above: Specimens with hCG l evels near the threshold of the test (25 mIU/mL) may give a negative or indeterminate result. In such cases, another test should be performed with a new specimen in 48-72 hours. If early is suspected clinically in this setting, correlation with quantitative serum b-hCG level is suggested. [facility] has confirmed the use of plasma for this test. This has not been cleared or approved by the U.S. Food and Drug Administration. The FDA has determined that such clearance is not necessary. HCG Screen, Bloodon 05-30-20 20 HCG Qn Negative Normal NEG [facility] Comment on above: Result Comment: Spec imens with hCG levels near the threshold of the test (25 mIU/mL) may give a negative or indeterminate result. In such cases, another test should be performed with a new specimen in 48-72 hours. If early is suspected clinically in this setting, correlation with quantitative serum b-hCG level is suggested. [facility] has confirmed the use of plasma for this test. This has not been cleared or approved by the U.S. Food and Drug Administration. The FDA has determined that such clearance is not necessary. Performed By: #### C P, HCG, CBC #### [facility] [address] [place] [address] Advisory Intern: Luis A Peng MD #### HIVCMB, PHEP #### [facility] [address] [place] [address] Advisory Intern: Alvino Davila MD HIV Ag/Abon 05-30-2020 HIV Ag/Ab NONREACTIVE Normal [facility] Comment on above: Result Comment: No l aboratory evidence of HIV infection. If acute HIV infection is suspected, consider testing for HIV-1 RNA. Performed By: #### C P, HCG, CBC #### [facility] [address] [place], [place] [phone] Advisory Intern: Luis A Peng MD #### HIVCMB, PHEP #### [facility] [address] [place] [address] Advisory Intern: Alvino Davila MD HIV Screenon 05-30-2020 HIV Ag/Ab NONREACTIVE NONREACTIVE [place] Comment on above: No laboratory eviden ce of HIV infection. If acute HIV infection is suspected, consider testing for HIV-1 RNA. Hepatitis Acute [facility] 05-30 Hep A Ab,IgM NONREACTIVE Normal [facility] Comment on above: Performed By: #### C P, HCG, CBC #### [address] [place], [place] [phone] Advisory Intern: Luis A Peng MD #### HIVCMB, PHEP #### [place] [address] [place] [address] Advisory Intern: Alvino Davila MD Hep B Core Ab,IgM NONREACTIVE Normal [facility] Comment on above: Performed By: #### C P, HCG, CBC #### [facility] [address] [place], [place] [phone] Advisory Intern: Luis A Peng MD #### HIVCMB, PHEP #### [facility] [address] [place] [address] Advisory Intern: Alvino Davila MD Hep B Surf Ag NONREACTIVE Normal [facility] Comment on above: Performed By: #### C P, HCG, CBC #### [facility] [address] [place], [place] [phone] Advisory Intern: Luis A Peng MD #### HIVCMB, PHEP #### [facility] [address] [place] [address] Advisory Intern: Alvino Davila MD Hep C Ab NONREACTIVE Normal NR [facility] Comment on above: Result Comment: [...] By: #### C P, HCG, CBC #### [facility] [address] [place] [address] [place], [place] [phone] Advisory Intern: Luis A Peng MD #### HIVCMB, PHEP #### [place] [address] [place], [place] [phone] Advisory Intern: Alvino Davila MD Hepatitis Panel, Acuteon HAV IgM IA Qn (S) NONREACTIVE NONREACTIVE [place] Hep B Core Ab, IgM NONREACTIVE NONREACTIVE [place] Hepatitis B Surface Ag NONREACTIVE NONREACTIVE [place] Hepatitis C Ab NONREACTIVE NONREACTIVE [place] Comment on above: The hepatitis C [...] predicted among non-blacks MDRD (S/P/Bld) [Vol rate/Area] [place], [place] Comment on above: Stage 1: Some [...] body mass. Additional eGFR calculator available at: http://www.[employer]/multiple_crcl_2012.htm CBCon 01-01-2020 Erythrocyte distribution width (RBC) [Ratio] 12.5 % Normal 11.8-14.4 [facility] Comment on above: Performed By: #### P HEP, HIVCMB #### [address] [phone] Advisory Intern: Alvino Davila MD #### CP, CBC, HCG #### [address] [place] [address] Advisory Intern: Luis A Peng MD Hematocrit (Bld) [Volume fraction] 40.2 % Normal 36.3-47.1 [facility] Comment on above: Performed By: #### P HEP, HIVCMB #### [address] [address] Advisory Intern: Alvino Davila MD #### CP, CBC, HCG #### [address] [place] [address] Advisory Intern: Luis A Peng MD Hemoglobin (Bld) [Mass/Vol] 13.1 g/dL Normal 11.9-15.1 [facility] Comment on above: Performed By: #### P HEP, HIVCMB #### [address] [address] Advisory Intern: Alvino Davila MD #### CP, CBC, HCG #### [address] [place] [address] Advisory Intern: Luis A Peng MD MCH (RBC) [Entitic mass] 28.4 pg Normal 25.2-33.5 [facility] Comment on above: Performed By: #### P HEP, HIVCMB #### [address] [phone] Advisory Intern: Alvino Davila MD #### CP, CBC, HCG #### [address] [place] [phone] Advisory Intern: Luis A Peng MD MCHC (RBC) [Mass/Vol] 32.6 g/dL Normal 28.4-34.8 [facility] Comment on above: Performed By: #### P HEP, HIVCMB #### [address] [address] Advisory Intern: Alvino Davila MD #### CP, CBC, HCG #### [address] [place] [phone] Advisory Intern: Luis A Peng MD MCV (RBC) [Entitic vol] 87.2 fL Normal 82.6-102.9 [facility] Comment on above: Performed By: #### P HEP, HIVCMB #### [place] [address] Advisory Intern: Alvino Davila MD #### CP, CBC, HCG #### [address] [place] [phone] Advisory Intern: Luis A Peng MD NRBC Automated 0.0 per 100 WBC Normal 0.0 [facility] Comment on above: Performed By: #### P HEP, HIVCMB #### [place] [address] Advisory Intern: Alvino Davila MD #### CP, CBC, HCG #### [address] [place] [address] Advisory Intern: Luis A Peng MD Platelet mean volume (Bld) [Entitic vol] 11.2 fL Normal 8.1-13.5 [facility] Comment on above: Performed By: #### P HEP, HIVCMB #### [place] [address] [place] [address] Advisory Intern: Alvino Davila MD #### CP, CBC, HCG #### [address] [place] [phone] Advisory Intern: Luis A Peng MD Platelets (Bld) [#/Vol] 241 10*3/uL Normal 138-453 [facility] Comment on above: Performed By: #### P HEP, HIVCMB #### [address] [phone] Advisory Intern: Alvino Davila MD #### CP, CBC, HCG #### [address] [place] [phone] ( Advisory Intern: Luis A Peng MD RBC (Bld) [#/Vol] 4.61 10*6/uL Normal 3.95-5.11 [facility] Comment on above: Performed By: #### P HEP, HIVCMB #### [address] [address] Advisory Intern: Alvino Davila MD #### CP, CBC, HCG #### [address] [place] [phone] Advisory Intern: Luis A Peng MD WBC (Bld) [#/Vol] 9.0 10*3/uL Normal 3.5-11.3 [facility] Comment on above: Performed By: #### P HEP, HIVCMB #### [address] [phone] Advisory Intern: Alvino Davila MD #### CP, CBC, HCG #### [address] [place] [phone] Advisory Intern: Luis A Peng MD Erythrocyte distribution width (RBC) [Ratio] 12.5 % 11.8 - 14.4 % [place] Hematocrit (Bld) [Volume fraction] 40.2 % 36.3 - 47.1 % [place] Hemoglobin (Bld) [Mass/Vol] 13.1 g/dL 11.9 - 15.1 g/dL [place] MCH (RBC) [Entitic mass] 28.4 pg 25.2 - 33.5 pg [place] MCHC (RBC) [Mass/Vol] 32.6 g/dL 28.4 - 34.8 g/dL [place] MCV (RBC) [Entitic vol] 87.2 fL 82.6 - 102.9 fL [place] Platelet mean volume (Bld) [Entitic vol] 11.2 fL 8.1 - 13.5 fL [place] Platelets (Bld) [#/Vol] 241 10*3/uL [place] RBC (Bld) [#/Vol] 4.61 10*6/uL 3.95 - 5.11 m/uL [place] WBC (Bld) [#/Vol] 0.0 10*3/uL 0.0 per 100 WBC [place] WBC (Bld) [#/Vol] 9.0 10*3/uL [place] Comp Metabolic Profon 2019 (cont.) Normal [facility] Comment on above: Result Comment: Aver age GFR for 20-29 years old: 116 mL/min/1.73sq m Chronic Kidney Disease: <60 mL/min/1.73sq m Kidney failure: <15 mL/min/1.73sq m eGFR calculated using average adult body mass. Additional eGFR calculator available at: http://www.[employer]/multiple_crcl_2011.htm Performed By: #### P HEP, HIVCMB #### [facility] [place] [address] Advisory Intern: Alvino Davila MD #### CP, CBC, HCG #### [facility] [address] [place], [place] [phone] Advisory Intern: Luis A Peng MD Albumin [Mass/Vol] 4.2 g/dL Normal 3.5-5.2 [facility] Comment on above: Performed By: #### P HEP, HIVCMB #### [address] [address] Advisory Intern: Alvino Davila MD #### CP, CBC, HCG #### [facility] [address] [place], [place] [id number] Advisory Intern: Luis A Peng MD Albumin/Globulin [Mass ratio] 1.7 {ratio} Normal 1.0-2.5 [facility] Comment on above: Performed By: #### P HEP, HIVCMB #### [address] [address] Advisory Intern: Alvino Davlia MD #### CP, CBC, HCG #### [address] [place], [place] [id number] Advisory Intern: Luis A Peng MD Alkaline Phos 69 U/L Normal 35-104 [facility] [place] Comment on above: Performed By: #### P HEP, HIVCMB #### [address] [address] Advisory Intern: Alvino Davila MD #### CP, CBC, HCG #### [facility] [address] [place] [address] Advisory Intern: Luis A Peng MD ALT [Catalytic activity/Vol] 78 U/L High 5-33 [facility] Comment on above: Performed By: #### P HEP, HIVCMB #### [address] [address] Advisory Intern: Alvino Davila MD #### CP, CBC, HCG #### [facility] [address] [place], [place] [phone] Advisory Intern: Luis A Peng MD Anion gap [Moles/Vol] 9 mmol/L Normal 9-17 [facility] Comment on above: Performed By: #### P HEP, HIVCMB #### [address] [address] Advisory Intern: Alvino Davila MD #### CP, CBC, HCG #### [facility] [address] [place], [place] [phone] Advisory Intern: Luis A Peng MD AST [Catalytic activity/Vol] 44 U/L High <32 [facility] Comment on above: Performed By: #### P HEP, HIVCMB #### [address] [address] Advisory Intern: Alvino Davila MD #### CP, CBC, HCG #### [address] [place], [place] [phone] Advisory Intern: Luis A Peng MD Bilirubin Ql (U) 0.15 mg/dL Low 0.3-1.2 [facility] Comment on above: Performed By: #### P HEP, HIVCMB #### [address] [address] Advisory Intern: Alvino Davila MD #### CP, CBC, HCG #### [address] [place], [place] [phone] Advisory Intern: Luis A Peng MD BUN/CRE Ratio 20 Normal 9-20 [facility] [place] Comment on above: Performed By: #### P HEP, HIVCMB #### [address] [address] Advisory Intern: Alvino Davila MD #### CP, CBC, HCG #### [address] [place] [address] Advisory Intern: Luis A Peng MD Calcium [Mass/Vol] 9.4 mg/dL Normal 8.6-10.4 [facility] Comment on above: Performed By: #### P HEP, HIVCMB #### [address] [phone] Advisory Intern: Alvino Davila MD #### CP, CBC, HCG #### [address] [place] [address] Advisory Intern: Luis A Peng MD Chloride [Moles/Vol] 97 mmol/L Low 98-107 [facility] Comment on above: Performed By: #### P HEP, HIVCMB #### [address] [phone] Advisory Intern: Alvino Davila MD #### CP, CBC, HCG #### [address] [place] [phone] Advisory Intern: Luis A Peng MD CO2 [Moles/Vol] 28 mmol/L Normal 20-31 [facility] Comment on above: Performed By: #### P HEP, HIVCMB #### [address] [phone] Advisory Intern: Alvino Davila MD #### CP, CBC, HCG #### [address] [place] [phone] Advisory Intern: Luis A Peng MD Creatinine [Mass/Vol] 0.55 mg/dL Normal 0.50-0.90 [facility] Comment on above: Performed By: #### P HEP, HIVCMB #### [address] [phone] Advisory Intern: Alvino Davila MD #### CP, CBC, HCG #### [address] [place] [address] Advisory Intern: Luis A Peng MD GFR, Amer >60 Normal >60 [facility] Comment on above: Performed By: #### P HEP, HIVCMB #### [facility] [address] [place] [address] Advisory Intern: Alvino Davila MD #### CP, CBC, HCG #### [facility] [address] [place], [place] [phone] Advisory Intern: Luis A Peng MD GFR,non Amer >60 Normal >60 [facility] Comment on above: Performed By: #### P HEP, HIVCMB #### [address] [address] Advisory Intern: Alvino Davila MD #### CP, CBC, HCG #### [facility] [address] [place] [address] [place] [address] Advisory Intern: Luis A Peng MD Glucose [Mass/Vol] 85 mg/dL Normal 70-99 [facility] Comment on above: Performed By: #### P HEP, HIVCMB #### [address] [address] Advisory Intern: Alvino Davila MD #### CP, CBC, HCG #### [facility] [address] [place] [address] [place]. [place] [phone] Advisory Intern: Luis A Peng MD Potassium [Moles/Vol] 4.3 mmol/L Normal 3.7-5.3 [facility] Comment on above: Performed By: #### P HEP, HIVCMB #### [address] [address] Advisory Intern: Alvino Davial MD #### CP, CBC, HCG #### [facility] [address] [place], [place] [phone] Advisory Intern: Luis A Peng MD Protein [Mass/Vol] 6.7 g/dL Normal 6.4-8.3 [facility] Comment on above: Performed By: #### P HEP, HIVCMB #### [facility] [address] [place] [address] Advisory Intern: Alvino Davila MD #### CP, CBC, HCG #### [address] [place], [place] [phone] Advisory Intern: Luis A Peng MD Sodium [Moles/Vol] 134 mmol/L Low 135-144 [facility] Comment on above: Performed By: #### P HEP, HIVCMB #### [address] [address] Advisory Intern: Alvino Davila MD #### CP, CBC, HCG #### [address] [place] [address] Advisory Intern: Luis A Peng MD Staging: Normal [facility] Comment on above: Result Comment: Stag e 1: Some kidney damage normal GFR Stage 2: Mild kidney damage GFR 60-89 Stage 3: Moderate kidney damage GFR 30-59 Stage 4: Severe kidney damage GFR 15-29 Stage 5: Severe kidney damage GFR <15 ESRD - chronic treatment by dialysis or transplant Performed By: #### P HEP, HIVCMB #### [address] [address] Advisory Intern: Alvino Davila MD #### CP, CBC, HCG #### [address] [place], [place] [phone] Advisory Intern: Luis A Peng MD Urea nitrogen [Mass/Vol] 11 mg/dL Normal 6-20 [facility] Comment on above: Performed By: #### P HEP, HIVCMB #### [address] [address] Advisory Intern: Alvino Davila MD #### CP, CBC, HCG #### [address] [place] [address] Advisory Intern: Luis A Peng MD Comprehensive Metabolic Pane liu 01-01-2020 Albumin [Mass/Vol] 4.2 g/dL 3.5 - 5.2 g/dL [place], [place] Albumin/Globulin [Mass ratio] 1.7 {ratio} [place], [place] ALP [Catalytic activity/Vol] 69 U/L 35 - 104 U/L [place] ALT [Catalytic activity/Vol] 78 U/L High 5 - 33 U/L [place] Anion gap [Moles/Vol] 9 mmol/L 9 - 17 mmol/L [place] AST [Catalytic activity/Vol] 44 U/L High <32 [place] Bilirubin Ql (U) 0.15 mg/dL Low 0.3 - 1.2 mg/dL [place], [place] Bun/Cre Ratio 20 [place] Calcium [Mass/Vol] 9.4 mg/dL 8.6 - 10.4 mg/dL [place] Chloride [Moles/Vol] 97 mmol/L Low 98 - 107 mmol/L [place] CO2 [Moles/Vol] 28 mmol/L 20 - 31 mmol/L [place] Creatinine [Mass/Vol] 0.55 mg/dL 0.5 - 0.9 mg/dL [place] GFR >60 >60 mL/min [place] GFR Non- >60 >60 mL/min [place] Glucose [Mass/Vol] 85 mg/dL 70 - 99 mg/dL [place] Interpretation and review of laboratory results Abnormal [place] Potassium [Moles/Vol] 4.3 mmol/L 3.7 - 5.3 mmol/L [place] Protein [Mass/Vol] 6.7 g/dL 6.4 - 8.3 g/dL [place] Sodium [Moles/Vol] 134 mmol/L Low 135 - 144 mmol/L [place] Urea nitrogen [Mass/Vol] 11 mg/dL 6 - 20 mg/dL [place] HCG Qualitative, Serumon 03- 02-2020 hCG Qual Negative NEGATIVE [place] Comment on above: Specimens with hCG l evels near the threshold of the test (25 mIU/mL) may give a negative or indeterminate result. In such cases, another test should be performed with a new specimen in 48-72 hours. If early is suspected clinically in this setting, correlation with quantitative serum b-hCG level is suggested. [facility] has confirmed the use of plasma for this test. This has not been cleared or approved by the U.S. Food and Drug Administration. The FDA has determined that such clearance is not necessary. HCG Screen, Bloodon 01-01-20 20 HCG Qn Negative Normal NEG [facility] Comment on above: Result Comment: Spec imens with hCG levels near the threshold of the test (25 mIU/mL) may give a negative or indeterminate result. In such cases, another test should be performed with a new specimen in 48-72 hours. If early is suspected clinically in this setting, correlation with quantitative serum b-hCG level is suggested. [facility] has confirmed the use of plasma for this test. This has not been cleared or approved by the U.S. Food and Drug Administration. The FDA has determined that such clearance is not necessary. Performed By: #### P HEP, HIVCMB #### [place] [address] [place], [place] [id number] Advisory Intern: Alvino Davila MD #### CP, CBC, HCG #### [address] [place] [address] Advisory Intern: Luis A Peng MD HIV Ag/Abon 01-01-2020 HIV Ag/Ab NONREACTIVE Normal NR [facility] Comment on above: Result Comment: No l aboratory evidence of HIV infection. If acute HIV infection is suspected, consider testing for HIV-1 RNA. Performed By: #### P HEP, HIVCMB #### [facility] [address] [place] [address] Advisory Intern: Alvino Davila MD #### CP, CBC, HCG #### [facility] [address] [place] [address] [place] [address] Advisory Intern: Luis A Peng MD HIV Screenon 01-01-2020 HIV Ag/Ab NONREACTIVE NONREACTIVE [place] Comment on above: No laboratory eviden ce of HIV infection. If acute HIV infection is suspected, consider testing for HIV-1 RNA. Hepatitis Acute [facility] 12-31 Hep A Ab,IgM NONREACTIVE Normal NR [facility] [place] Comment on above: Performed By: #### P HEP, HIVCMB #### [address] [address] Advisory Intern: Alvino Davila MD #### CP, CBC, HCG #### [address] [place] [address] Advisory Intern: Luis A Peng MD Hep B Core Ab,IgM NONREACTIVE Normal [facility] Comment on above: Performed By: #### P HEP, HIVCMB #### [address] [address] Advisory Intern: Alvino Davila MD #### CP, CBC, HCG #### [facility] [address] [place] [address] [place] [address] Advisory Intern: Luis A Peng MD Hep B Surf Ag NONREACTIVE Normal [facility] Comment on above: Performed By: #### P HEP, HIVCMB #### [address] [address] Advisory Intern: Alvino Davila MD #### CP, CBC, HCG #### [facility] [address] [place] [address] [place] [address] Advisory Intern: Luis A Peng MD Hep C Ab NONREACTIVE [facility] Comment on above: Result Comment: The [...] Performed By: #### P HEP, HIVCMB #### [facility] [address] [place] [address] Advisory Intern: Alvino Davila MD #### CP, CBC, HCG #### [facility] [address] [place] [address] Advisory Intern: Luis A Peng MD Hepatitis Panel, Acuteon HAV IgM IA Qn (S) NONREACTIVE NONREACTIVE [place] Hep B Core Ab, IgM NONREACTIVE NONREACTIVE [place] Hepatitis B Surface Ag NONREACTIVE NONREACTIVE [place] Hepatitis C Ab NONREACTIVE NONREACTIVE [place] Comment on above: The hepatitis C [...] predicted among non-blacks MDRD (S/P/Bld) [Vol rate/Area] [place] Comment on above: Stage 1: Some [...] body mass. Additional eGFR calculator available at: [email or web address] Encounters Encounter Date Encounter Type Care Provider [...] 03-27-2021 End: 03-28-2021 ambulatory Rody Monk MD Facility:[facility] Start: 12-06-2020 End: 12-07-2020 Patient encounter procedure [facility] Start: 12-06-2020 End: 12-06-2020 Subsequent hospital visit by physician [facility] Start: 11-11-2020 End: 11-12-2020 Patient encounter procedure [facility] Start: 05-30-2020 End: 05-31-2020 Patient encounter procedure [facility] Start: 05-30-2020 End: 05-30-2020 Subsequent hospital visit by physician [facility] Start: 01-01-2020 End: 01-02-2020 Patient encounter procedure [facility] Start: 01-01-2020 End: 01-01-2020 Subsequent hospital visit by physician [facility] Start: 09-20-2018 End: 09-21-2018 Patient encounter procedure Sidney Nava Facility:[id number] Procedures Date Procedure Procedure Detail Performing Clinician [...] 07-02-2020 Influenza vaccination Flu vaccine (# 1) [facility] [place] Payers Date Payer Category Payer Unknown 2019 Unknown [facility] xxxxxxxxxxxx 2019-Present [phone] [address] [place] [address] xxxxxxxxxxxx [id number] 2019 Unknown [facility] [id number] 11/01/2019-Present [phone] [address] [place] [address] [id number] 1992 Unknown [id number] 1992 Unknown [id number] 1992 Unknown [id number] 1992 Unknown [id number] 1992 Unknown [id number] 1992 Unknown [id number] 1992 Unknown [id number] 1992 Unknown [id number] 1992 Unknown [id number] 1992 Unknown [id number] 1992 Unknown [id number] 11-01-1957 Unknown [id number] Social History Date Type Detail Facility Tobacco smoking status NHIS Unknown if ev er smoked [facility] JESSENIA Sex Assigned At Not on file [place] Summary Purpose Family History No Family History Records FoundNo Family History Records FoundNo Family History Records FoundNo Family History Records Found Advance Directives No Advanced Directives Records FoundDocuments on File Type Date Recorded 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 Advance Directives and Living Will Power of Weigher And Charger Documents on File Type Date Recorded 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 [employer] [facility]. provides no warranty or guarantee of the accuracy or completeness of information in this document.
[2024-09-20 05:22] VITALS: BP 124/84; PULSE 103; TEMP 37.2; O2SAT 98; BMI 27.6
[2024-09-20 05:35] VITALS: O2SAT 98
[2024-09-20 06:13] LABS: Influenza Virus A Antigen Negative; Influenza Virus B Antigen Negative; Internal Control Within Normal Limits; SARS-CoV-2 Ag NEGATIVE (NEGATIVE)
--- NOTE | 2024-09-20 06:37 | ED_ITS ---
HPI - Fever General Chief Complaint: Fever Stated Complaint: fever Time Seen by Provider: 09/20/24 06:21 Source: patient Mode of arrival: walk-in Limitations: no limitations History of Present Illness HPI Narrative: patient presents states she has been experiencing headaches behind her eyes for past 2 weeks. Treating with tylenol or ibuprofen and headache resolves. Now state yesterday developed fever, same headache again and body aches. When she takes Tylenol it relieves headache and fever . Still has body ache. Similar symptoms again this AM of fever, bodyaches and headache. Took tylenol before coming in and is now afebrile and no longer has headache. Still has body aches. No nausea or vomiting Related Data Home Medications ?Medication ?Instructions ?Recorded ?Confirmed buprenorphine 8 mg-naloxone 2 mg 1 film sublingual DAILY 04/11/23 09/20/24 sublingual film (Suboxone) gabapentin 400 mg capsule mg 10/20/23 quetiapine 50 mg tablet mg 09/20/24 Allergies Allergy/AdvReac Type Severity Reaction Status Date / Time Penicillins Allergy Severe unknown Verified 09/20/24 05:26 Review of Systems ROS Status of ROS 10 or more systems reviewed and unremark able except as noted in history and below PFSH PFSH Social History Smoking status: Current every day smoker Little interest or pleasure in doing things: not at all Feeling down, depressed, or hopeless: not at all Exam Constitutional Vital Signs, click to edit/add: Last Vital Signs Temp 98.9 F 09/20/24 05:22 Pulse 103 H 09/20/24 05:22 Resp 16 09/20/24 05:22 BP 124/84 09/20/24 05:22 Pulse Ox 98 09/20/24 05:22 O2 Del Method Room Air 09/20/24 05:22 Common normals: no apparent distress, average body habitus, oriented x3, no limitations, healthy appearing, alert and well nourished [facility] Common normals: normocephalic and head/scalp atraumatic Other: sinuses nontender Eye Common normals: PERRL, EOMs intact bilaterally and conjunctivae normal Respiratory Common normals: normal respiratory effort, no retractions, no use of accessory muscles and clear to auscultation bilaterally Cardio Common normals: regular rate, regular rhythm, S1 normal heart sound and S2 normal heart sound GI Common normals: Normal to inspection, nondistended, normoactive bowel sounds present, soft to palpation and non-tender Extremity Common normals: normal to inspection and full ROM Neuro Common normals: oriented x3, CN's II-XII intact bilaterally, moves all extremities and no focal motor deficits Psych Appearance: grossly normal Course Vital Signs Vital signs: Vital Signs Temperature 98.9 F 09/20/24 05:22 Pulse Rate 103 H 09/20/24 05:22 Respiratory Rate 16 09/20/24 05:22 Blood Pressure 124/84 09/20/24 05:22 Pulse Oximetry 98 09/20/24 05:22 Oxygen Delivery Method Room Air 09/20/24 05:22 Temperature 98.9 F 09/20/24 05:22 Pulse Rate 103 H 09/20/24 05:22 Respiratory Rate 16 09/20/24 05:22 Blood Pressure 124/84 09/20/24 05:22 Pulse Oximetry 98 09/20/24 05:22 Oxygen Delivery Method Room Air 09/20/24 05:22 MDM - Fever MDM Narrative Medical decision making narrative: presents with body aches, fever and recurrent headache. frontal headaches behind her eyes on and off for past 2 weeks. same headache again this AM . JARRETT and fever this AM resolved after tylenol. Still has body aches. COVID 19 and influenza neg. labs and CT sinuses ordered and care transferred to [facility] physician Lab Data Labs: Lab Results 09/20/24 Range/Units 05:30 Influenza Type A Ag Negative Influenza Type B Ag Negative SARS-CoV-2 Ag (CV2AG) Negative (NEGATIVE) Discharge Plan Discharge Chief Complaint: Fever Clinical Impression: Fever Prescriptions / Home Meds: No Action buprenorphine-naloxone [Suboxone] 8-2 mg film 1 film sublingual DAILY gabapentin 400 mg capsule quetiapine 50 mg tablet Print Language: Croatian Referrals: ROMEO GAR [Primary Care Provider] - 1 week
--- NOTE | 2024-09-20 07:17 | CT_ITS ---
The [address] [address] Patient Name: ALEXANDER CASON MRN: [id number] date: 1990 Sex: F Assigned Patient Location: ER Current Patient Location: Accession/Order Number: [id number] Exam Date: 09/20/2024 07:30 Report Date: 09/20/2024 08:28 At the request of: HALIMA MANLEY Procedure: CT sinus wo con EXAM: CT sinus wo con HISTORY: headache/fever COMPARISON: None. TECHNIQUE: Axial noncontrast CT imaging of the paranasal sinuses was performed with coronal and sagittal reformats. This CT exam was performed using one or more of the following dose reduction techniques: Automated exposure control, adjustment of the MA and/or kV according to patient size, or use of iterative reconstruction technique. FINDINGS: Maxillary sinuses: The maxillary sinuses are clear. The maxillary infundibulum are widely patent. Ethmoid sinus: Ethmoid sinuses are clear. Frontal sinuses: Frontal sinuses are clear. Frontal sinus drainage pathways are widely patent. Sphenoid sinus: Sphenoid sinuses are clear. The sphenoethmoidal recesses are widely patent. There is sellar pneumatization of the sphenoid sinus. No onodi cell. Nasal cavity/midline: There is mild anterior rightward nasal septal deviation. Symmetric base of the olfactory fossa. The bilateral anterior ethmoid notches are protected. Additional comments: Visualized portions of the intracranial structures are unremarkable. The orbits are unremarkable. CT/CT sinus wo con IMPRESSION: No significant paranasal sinus disease. Paranasal sinus drainage pathways are widely patent. Electronically authenticated by: STEF BARKLEY Date: 09/20/2024 08:28
== END 2024-09-20 08:06 | disposition home or self-care (01) ==
PROVIDERS: Emergency Provider Internal Medicine; PCP Nurse Practitioner Family
DX: R51.9 Headache, unspecified (principal); J06.9 Acute upper respiratory infection, unspecified; R50.9 Fever, unspecified; F17.200 Nicotine dependence, unspecified, uncomplicated; F11.20 Opioid dependence, uncomplicated
CPT/HCPCS: 70486; 87804; 87811; 99282; 99284

== ENCOUNTER 2024-09-20 21:01 | Emergency (ER) | payer OTHER, SELFPAY ==
[2024-09-20 21:05] VITALS: BP 119/72; PULSE 113; TEMP 36.8; O2SAT 99; BMI 27.6
--- OUTSIDE RECORDS SUMMARY | 2024-09-20 21:15 | XMS_ITS | CCD ---
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 Name Role Phone Sidney Nava Unavailable Unavailable [...] Unavaila CRISTHIAN Beckett Consulting Unavailable PAY, DR ABL Attending Unavailable REQUEST, NONE LISTED Primary Care Unavaila ble KARASICandelaria, DR COOK Consulting Unavailable KARASIK, DR COOK Attending Unavailable KARASIK, DR COOK Admitting Unavailable ZIEBER, DR MAYUR Noriega Consulting Unavailable Allergies Allergy Classification Reported Allergen(s) Allergy Type Date of Onset Reaction(s) Facility (1 source) Penicillins Drug allergy (disorder) 04-10-2013 [facility] Repository Problems Active Problems Problem Classification [...] 07-31-2022 Episodic Other aftercare (5 sources) 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 Normal [facility] Comment on above: Performed By: #### D SDOALC #### [facility] [address] [address] [address] Roberto Parmar Summary FINAL Normal [facility] Comment on above: Result Comment: === [...] is an expected metabolite of dextromethorphan, an ihnx-lwp-nenbvxk or prescription cough suppressant. Levorphanol is a scheduled prescription medication. Dextrorphan cannot be distinguished from levorphanol by the method used for analysis. Guaifenesin PRESENT UNEXPECTED Guaifenesin may be administered as an sddt-dbz-auqmwdk or prescription drug; it may also be [...] === Performed By: #### D SDOALC #### [facility] [address] [place] [address] Dr. Roberto Parmar URIC ACID RAND URINEon 09-03 Uric Acid, Urine 12.4 mg/dL Normal Not Estab. The [facility] Comment on above: Performed By: #### U RICUR #### [facility] [address] [address] [address] Roberto Parmar DRUG SCREEN RAPID (URINE)on 09-02-2022 AMP Negative Normal NEGATIVE [facility] Comment on above: Performed By: #### D RUGRPD #### [facility] [address] [place] [address] Dr. Roberto Parmar BAR Negative Normal NEGATIVE [facility] Comment on above: Performed By: #### D RUGRPD #### [facility] [address] [address] [address] Roberto Parmar BUP Positive Abnormal NEGATIVE [facility] Comment on above: Performed By: #### D RUGRPD #### [facility] [address] [place] [address] Dr. Roberto Parmar BZO Positive Abnormal NEGATIVE [facility] Comment on above: Performed By: #### D RUGRPD #### [facility] [address] [address] [address] Roberto Parmar BRITTANY Negative Normal NEGATIVE [facility] Comment on above: Performed By: #### D RUGRPD #### [facility] [address] [place] [address] Dr. Roberto Parmar CUT-OFFS SEE BELOW Normal [facility] Comment on above: Result Comment: AMP [...] ng/mL Performed By: #### D RUGRPD #### [facility] [address] [place] [address] Dr. Roberto Parmar DRUG CUT HEADER DRUG CLASS TEST SYSTEM CUT-OFF CONCENTRATIONS ARE FOLLOWS: Normal [facility] Comment on above: Performed By: #### D RUGRPD #### [facility] [address] [place] [address] Dr. Roberto Parmar mAMP Negative Normal NEGATIVE [facility] Comment on above: Performed By: #### D RUGRPD #### [facility] [address] [address] [address] Roberto Parmar MTD Negative Normal NEGATIVE [facility] Comment on above: Performed By: #### D RUGRPD #### [facility] [address] [address] [address] Roberto Parmar OPI Negative Normal NEGATIVE [facility] Comment on above: Performed By: #### D RUGRPD #### [facility] [address] [place] [address] Dr. Roberto Parmar OXY Negative Normal NEGATIVE [facility] Comment on above: Performed By: #### D RUGRPD #### [facility] [address] [address] [address] Roberto Parmar PCP Negative Normal NEGATIVE [facility] Comment on above: Performed By: #### D RUGRPD #### [facility] [address] [place] [address] Dr. Roberto Parmar PPX Negative Normal NEGATIVE [facility] Comment on above: Performed By: #### D RUGRPD #### [facility] [address] [place] [address] Dr. Roberto Parmar TCA Negative Normal NEGATIVE [facility] Comment on above: Performed By: #### D RUGRPD #### [facility] [address] [place] [address] Dr. Roberto Parmar THC Negative Normal NEGATIVE [facility] Comment on above: Performed By: #### D RUGRPD #### [facility] [address] [place] [address] Dr. Roberto Parmar US PELVIS AND TRANSVAGon [...] by: MAYUR ALLEN Date: 2022-07-13 07:21 Normal [facility] PAP ACOG PANEL 2: 21 to 31on 06-18-2022 . . Normal [facility] Comment on above: Performed By: #### [id number] #### [facility] [address] [place] [address] Dr. Roberto Parmar Age Gdln ACOG Testing 21-29 Normal [facility] Comment on above: Performed By: #### [id number] #### [facility] [address] [place] [address] Dr. Roberto Parmar DIAGNOSIS: Comment Normal [facility] Comment on above: Result Comment: NEGA TIVE FOR INTRAEPITHELIAL LESION OR MALIGNANCY. Performed By: #### [id number] #### [facility] [address] [place] [address] Dr. Roberto Parmar Methodology: Comment [facility] Comment on above: Result Comment: This liquid based ThinPrep(R) pap test was screened with the use of an image guided system. Performed By: #### 4 [id number] #### [facility] [address] [place] [address] Dr. Roberto Parmar Note: Comment [facility] Comment on above: Result Comment: The Pap smear is a screening test designed to aid in the detection of premalignant and malignant conditions of the uterine cervix. It is not a diagnostic procedure and should not be used as the sole means of detecting cervical cancer. Both false-positive and false-negative reports do occur. . Performed By: #### [id number] #### [facility] [address] [place] [address] Dr. Roberto Parmar Performed by: Comment Normal [facility] Comment on above: Result Comment: [employer] (ASCP) Performed By: #### [id number] #### [facility] [address] [place] [address] Dr. Roberto Parmar Reflex Criteria: Comment [facility] Comment on above: Result Comment: The HPV DNA reflex criteria were not met with this specimen result therefore, no HPV testing was performed. . Performed By: #### 4 [id number] #### [facility] [address] [place] [address] Dr. Roberto Parmar Specimen adequacy: Comment Normal [facility] Comment on above: Result Comment: Sati sfactory for evaluation. Endocervical and/or squamous metaplastic cells (endocervical component) are present. Performed By: #### 4 [id number] #### [facility] [address] [place] [address] Dr. Roberto Parmar CBCon 12-06-2020 Erythrocyte distribution width (RBC) [Ratio] 13.6 % Normal 11.8-14.4 [facility] Comment on above: Performed By: #### P HEP, HIVCMB #### [facility] [address] [place] [address] Pbx Teacher: Alvino Davila MD #### CP, CBC, HCG #### [facility] [address] [place] [address] Pbx Teacher: Luis A Peng MD Hematocrit (Bld) [Volume fraction] 44.1 % Normal 36.3-47.1 [facility] Comment on above: Performed By: #### P HEP, HIVCMB #### [facility] [address] [place], [place] [id number] Pbx Teacher: Alvino Davila MD #### CP, CBC, HCG #### [facility] [address] [place] [address] Dr. [place], [place] [id number] Pbx Teacher: Luis A Peng MD Hemoglobin (Bld) [Mass/Vol] 14.1 g/dL Normal 11.9-15.1 [facility] Comment on above: Performed By: #### P HEP, HIVCMB #### [address] [id number] Pbx Teacher: Alvino Davila MD #### CP, CBC, HCG #### [address] [place] [address] Pbx Teacher: Luis A Peng MD MCH (RBC) [Entitic mass] 25.4 pg Normal 25.2-33.5 [facility] Comment on above: Performed By: #### P HEP, HIVCMB #### [address] [id number] Pbx Teacher: Alvino Davila MD #### CP, CBC, HCG #### [address] [place] [address] Pbx Teacher: Luis A Peng MD MCHC (RBC) [Mass/Vol] 32.0 g/dL Normal 28.4-34.8 [facility] Comment on above: Performed By: #### P HEP, HIVCMB #### [address] [place], [place] [id number] Pbx Teacher: Alvino Davila MD #### CP, CBC, HCG #### [facility] [address] [place] [address] [place] [address] Pbx Teacher: Luis A Peng MD MCV (RBC) [Entitic vol] 79.5 fL Low 82.6-102.9 [facility] Comment on above: Performed By: #### P HEP, HIVCMB #### [facility] [address] [place] [address] Pbx Teacher: Alvino Davila MD #### CP, CBC, HCG #### [facility] [address] [place], [place] [id number] Pbx Teacher: Luis A Peng MD NRBC Automated 0.0 per 100 WBC Normal 0.0 [facility] Comment on above: Performed By: #### P HEP, HIVCMB #### [address] [address] Pbx Teacher: Alvino Davila MD #### CP, CBC, HCG #### [facility] [address] [place], [place] 2254[address] Pbx Teacher: Luis A Peng MD Platelet mean volume (Bld) [Entitic vol] 11.8 fL Normal 8.1-13.5 [facility] Comment on above: Performed By: #### P HEP, HIVCMB #### [address] [address] Pbx Teacher: Alvino Davila MD #### CP, CBC, HCG #### [facility] [address] [place] [address] [place], [place] [id number] Pbx Teacher: Luis A Peng MD Platelets (Bld) [#/Vol] 238 10*3/uL Normal 138-453 [facility] Comment on above: Performed By: #### P HEP, HIVCMB #### [facility] [address] [place] [address] Pbx Teacher: Alvino Davila MD #### CP, CBC, HCG #### [facility] [address] [place], [place] [id number] Pbx Teacher: Luis A Peng MD RBC (Bld) [#/Vol] 5.55 10*6/uL High 3.95-5.11 [facility] Comment on above: Performed By: #### P HEP, HIVCMB #### [facility] [address] [place], [place] 6858[address] Pbx Teacher: Alvino Davila MD #### CP, CBC, HCG #### [facility] [address] [place] [place] [address] Pbx Teacher: Luis A Peng MD WBC (Bld) [#/Vol] 8.6 10*3/uL Normal 3.5-11.3 [facility] Comment on above: Performed By: #### P HEP, HIVCMB #### [facility] [address] [place], [place] [id number] Pbx Teacher: Alvino Davila MD #### CP, CBC, HCG #### [facility] [address] [place] [place] [address] Pbx Teacher: Luis A Peng MD Erythrocyte distribution width (RBC) [Ratio] 13.6 % 11.8 - 14.4 % [place] Hematocrit (Bld) [Volume fraction] 44.1 % 36.3 - 47.1 % [place] Hemoglobin (Bld) [Mass/Vol] 14.1 g/dL 11.9 - 15.1 g/dL [place] Interpretation and review of laboratory results Abnormal [place] MCH (RBC) [Entitic mass] 25.4 pg 25.2 - 33.5 pg [place] MCHC (RBC) [Mass/Vol] 32.0 g/dL 28.4 - 34.8 g/dL [place] MCV (RBC) [Entitic vol] 79.5 fL Low 82.6 - 102.9 fL [place] Platelet mean volume (Bld) [Entitic vol] 11.8 fL 8.1 - 13.5 fL [place] Platelets (Bld) [#/Vol] 238 10*3/uL [place] RBC (Bld) [#/Vol] 5.55 10*6/uL High 3.95 - 5.11 m/uL [place] WBC (Bld) [#/Vol] 8.6 10*3/uL [place] WBC (Bld) [#/Vol] 0.0 10*3/uL 0.0 per 100 WBC M [place], [place] Comp Metabolic Profon 2020 (cont.) Normal [facility] Comment on above: Result Comment: Aver age GFR for 20-29 years old: 116 mL/min/1.73sq m Chronic Kidney Disease: <60 mL/min/1.73sq m Kidney failure: <15 mL/min/1.73sq m eGFR calculated using average adult body mass. Additional eGFR calculator available at: http://www.[facility]/multiple_crcl_2012.htm Performed By: #### P HEP, HIVCMB #### [address] [id number] Pbx Teacher: Alvino Davila MD #### CP, CBC, HCG #### [facility] [address] [place] [address] [place] [address] Pbx Teacher: Luis A Peng MD Albumin [Mass/Vol] 4.6 g/dL Normal 3.5-5.2 [facility] Comment on above: Performed By: #### P HEP, HIVCMB #### [address] [id number] Pbx Teacher: Alvino Davila MD #### CP, CBC, HCG #### [facility] [address] [place] [address] [place] [address] Pbx Teacher: Luis A Peng MD Albumin/Globulin [Mass ratio] 1.6 {ratio} Normal 1.0-2.5 [facility] Comment on above: Performed By: #### P HEP, HIVCMB #### [address] [id number] Pbx Teacher: Alvino Davila MD #### CP, CBC, HCG #### [facility] [address] [place], [place] [id number] Pbx Teacher: Luis A Peng MD Alkaline Phos 81 U/L Normal 35-104 [facility] Comment on above: Performed By: #### P HEP, HIVCMB #### [address] [address] Pbx Teacher: Alvino Davila MD #### CP, CBC, HCG #### [facility] [address] [place], [place] [id number] Pbx Teacher: Luis A Peng MD ALT [Catalytic activity/Vol] 39 U/L High 5-33 [facility] Comment on above: Performed By: #### P HEP, HIVCMB #### [address] [address] Pbx Teacher: Alvino Davila MD #### CP, CBC, HCG #### [address] [place], [place] [address]278683 Pbx Teacher: Lui sA Peng MD Anion gap [Moles/Vol] 12 mmol/L Normal 9-17 [facility] Comment on above: Performed By: #### P HEP, HIVCMB #### [address] [address] Pbx Teacher: Alvino Davila MD #### CP, CBC, HCG #### [address] [place], [place] 6069183 Pbx Teacher: Luis A Peng MD AST [Catalytic activity/Vol] 28 U/L Normal <32 [facility] Comment on above: Performed By: #### P HEP, HIVCMB #### [address] [address] Pbx Teacher: Alvino Davila MD #### CP, CBC, HCG #### [address] [place] [id number] Pbx Teacher: Luis A Peng MD Bilirubin Ql (U) 0.26 mg/dL Low 0.3-1.2 [facility] Comment on above: Performed By: #### P HEP, HIVCMB #### [address] [id number] Pbx Teacher: Alvino Davila MD #### CP, CBC, HCG #### [address] [place] [address] Pbx Teacher: Luis A Peng MD BUN/CRE Ratio 14 Normal 9-20 [facility] Comment on above: Performed By: #### P HEP, HIVCMB #### [address] [address] Pbx Teacher: Alvino Davila MD #### LAURA, CBC, HCG #### [address] [place] [place] [address] Pbx Teacher: Luis A Peng MD Calcium [Mass/Vol] 10.1 mg/dL Normal 8.6-10.4 [facility] Comment on above: Performed By: #### P HEP, HIVCMB #### [address] [address] Pbx Teacher: Alvino Davila MD #### CP, CBC, HCG #### [address] [place] [address] Pbx Teacher: Luis A Peng MD Chloride [Moles/Vol] 101 mmol/L Normal 98-107 [facility] Comment on above: Performed By: #### P HEP, HIVCMB #### [address] [address] Pbx Teacher: Alvino Davila MD #### CP, CBC, HCG #### [address] [place] [address] Pbx Teacher: Luis A Peng MD CO2 [Moles/Vol] 26 mmol/L Normal 20-31 [facility] Comment on above: Performed By: #### P HEP, HIVCMB #### [facility] [address] [place] [address] Pbx Teacher: Alvino Davila MD #### CP, CBC, HCG #### [facility] [address] [place] [address] Pbx Teacher: Luis A Peng MD Creatinine [Mass/Vol] 0.49 mg/dL Low 0.50-0.90 [facility] Comment on above: Performed By: #### P HEP, HIVCMB #### [address] [id number] Pbx Teacher: Alvino Davila MD #### CP, CBC, HCG #### [facility] [address] [place] [address] Pbx Teacher: Luis A Peng MD GFR, Amer >60 Normal >60 [facility] Comment on above: Performed By: #### P HEP, HIVCMB #### [facility] [address] [place] [address] Pbx Teacher: Alvino Davila MD #### CP, CBC, HCG #### [facility] [address] [place], [place] 7968583 Pbx Teacher: Luis A Peng MD GFR,non Amer >60 Normal >60 [facility] Comment on above: Performed By: #### P HEP, HIVCMB #### [facility] [address] [place] [address] Pbx Teacher: Alvino Davila MD #### CP, CBC, HCG #### [facility] [address] [place], [place] [phone] Pbx Teacher: Luis A Peng MD Glucose [Mass/Vol] 101 mg/dL High 70-99 [facility] Comment on above: Performed By: #### P HEP, HIVCMB #### [address] [place] [address] Pbx Teacher: Alvino Davila MD #### CP, CBC, HCG #### [facility] [address] [place] [address] Dr. [place], [place] [id number] Pbx Teacher: Luis A Peng MD Potassium [Moles/Vol] 4.2 mmol/L Normal 3.7-5.3 [facility] Comment on above: Performed By: #### P HEP, HIVCMB #### [address] [id number] Pbx Teacher: Alvino Davila MD #### CP, CBC, HCG #### [facility] [address] [place] [address] Dr. [place], [place] [id number] Pbx Teacher: Luis A Peng MD Protein [Mass/Vol] 7.5 g/dL Normal 6.4-8.3 [facility] Comment on above: Performed By: #### P HEP, HIVCMB #### [address] [address] Pbx Teacher: Alvino Davila MD #### CP, CBC, HCG #### [facility] [address] [place] [address] Dr. [place], [place] [id number] Pbx Teacher: Luis A Peng MD Sodium [Moles/Vol] 139 mmol/L Normal 135-144 [facility] Comment on above: Performed By: #### P HEP, HIVCMB #### [address] [address] Pbx Teacher: Alvino Dvaila MD #### CP, CBC, HCG #### [address] [place], [place] 2421083 Pbx Teacher: Luis A Peng MD Staging: Normal [facility] Comment on above: Result Comment: Stag e 1: Some kidney damage normal GFR Stage 2: Mild kidney damage GFR 60-89 Stage 3: Moderate kidney damage GFR 30-59 Stage 4: Severe kidney damage GFR 15-29 Stage 5: Severe kidney damage GFR <15 ESRD - chronic treatment by dialysis or transplant Performed By: #### P HEP, HIVCMB #### [facility] [address] [place], [place] [id number] Pbx Teacher: Alvino Davila MD #### CP, CBC, HCG #### [facility] [address] [place] [address] Pbx Teacher: Luis A Peng MD Urea nitrogen [Mass/Vol] 7 mg/dL Normal 6-20 [facility] Comment on above: Performed By: #### P HEP, HIVCMB #### [facility] [address] [place], [place] [id number] Pbx Teacher: Alvino Davila MD #### CP, CBC, HCG #### [facility] [address] [place] [address] Pbx Teacher: uLis A Peng MD Comprehensive Metabolic Pane [facility] 12-06-2020 Albumin [Mass/Vol] 4.6 g/dL 3.5 - 5.2 g/dL [place], [place] Albumin/Globulin [Mass ratio] 1.6 {ratio} [place] ALP [Catalytic activity/Vol] 81 U/L 35 - 104 U/L [place] ALT [Catalytic activity/Vol] 39 U/L High 5 - 33 U/L [place] Anion gap [Moles/Vol] 12 mmol/L 9 - 17 mmol/L [place] AST [Catalytic activity/Vol] 28 U/L <32 [place] Bilirubin Ql (U) 0.26 mg/dL Low 0.3 - 1.2 mg/dL [place], [place] Bun/Cre Ratio 14 [place] Calcium [Mass/Vol] 10.1 mg/dL 8.6 - 10.4 mg/dL [place] Chloride [Moles/Vol] 101 mmol/L 98 - 107 mmol/L [place] CO2 [Moles/Vol] 26 mmol/L 20 - 31 mmol/L [place] Creatinine [Mass/Vol] 0.49 mg/dL Low 0.5 - 0.9 mg/dL [place] GFR >60 >60 mL/min [place] GFR Non- >60 >60 mL/min [place] Glucose [Mass/Vol] 101 mg/dL High 70 - 99 mg/dL [place] Interpretation and review of laboratory results Abnormal [place] Potassium [Moles/Vol] 4.2 mmol/L 3.7 - 5.3 mmol/L [place] Protein [Mass/Vol] 7.5 g/dL 6.4 - 8.3 g/dL [place] Sodium [Moles/Vol] 139 mmol/L 135 - 144 mmol/L [place] Urea nitrogen [Mass/Vol] 7 mg/dL 6 - 20 mg/dL [place] HCG Qualitative, Serumon hCG Qual Negative NEGATIVE [place] Comment on above: Specimens with hCG l evels near the threshold of the test (25 mIU/mL) may give a negative or indeterminate result. In such cases, another test should be performed with a new specimen in 48-72 hours. If early is suspected clinically in this setting, correlation with quantitative serum b-hCG level is suggested. [employer] has confirmed the use of plasma for this test. This has not been cleared or approved by the U.S. Food and Drug Administration. The FDA has determined that such clearance is not necessary. HCG Screen, Bloodon 12-06-19 21 HCG Qn Negative Normal NEG [facility] Comment on above: Result Comment: Spec imens with hCG levels near the threshold of the test (25 mIU/mL) may give a negative or indeterminate result. In such cases, another test should be performed with a new specimen in 48-72 hours. If early is suspected clinically in this setting, correlation with quantitative serum b-hCG level is suggested. [employer] has confirmed the use of plasma for this test. This has not been cleared or approved by the U.S. Food and Drug Administration. The FDA has determined that such clearance is not necessary. Performed By: #### P HEP, HIVCMB #### [address] [place] [address] Pbx Teacher: Alvino Davila MD #### CP, CBC, HCG #### [address] [place] [address] Pbx Teacher: Luis A Peng MD HIV Ag/Abon 12-06-2020 HIV Ag/Ab NONREACTIVE Normal [facility] Comment on above: Result Comment: No l aboratory evidence of HIV infection. If acute HIV infection is suspected, consider testing for HIV-1 RNA. Performed By: #### P HEP, HIVCMB #### [address] [address] Pbx Teacher: Alvino Davila MD #### CP, CBC, HCG #### [address] [place] [address] Pbx Teacher: Luis A Peng MD HIV Screenon 12-06-2020 HIV Ag/Ab NONREACTIVE NONREACTIVE [place] Comment on above: No laboratory eviden ce of HIV infection. If acute HIV infection is suspected, consider testing for HIV-1 RNA. Hepatitis Acute [facility] 12-06 Hep A Ab,IgM NONREACTIVE Normal NR [facility] Comment on above: Performed By: #### P HEP, HIVCMB #### [address] [address] Pbx Teacher: Alvino Davila MD #### CP, CBC, HCG #### [address] [place] [address] Pbx Teacher: Luis A Peng MD Hep B Core Ab,IgM NONREACTIVE Normal [facility] Comment on above: Performed By: #### P HEP, HIVCMB #### [address] [address] Pbx Teacher: Alvino Davila MD #### CP, CBC, HCG #### [facility] [address] [place], [place] [id number] Pbx Teacher: Luis A Peng MD Hep B Surf Ag NONREACTIVE Normal [facility] Comment on above: Performed By: #### P HEP, HIVCMB #### [facility] [address] [place], [place] [phone] Pbx Teacher: Alvino Davila MD #### CP, CBC, HCG #### [facility] [address] [place], [place] [phone] Pbx Teacher: Luis A Peng MD Hep C Ab REACTIVE Abnormal [facility] Comment on above: Result Comment: The [...] Performed By: #### P HEP, HIVCMB #### [address] [address] Pbx Teacher: Alvino Davila MD #### CP, CBC, HCG #### [address] [place] [address] Pbx Teacher: Luis A Peng MD Hepatitis Panel, [facility] HAV IgM IA Qn (S) NONREACTIVE NONREACTIVE [facility], [place] Hep B Core Ab, IgM NONREACTIVE NONREACTIVE [facility], [place] Hepatitis B Surface Ag NONREACTIVE NONREACTIVE [facility] [place], [place] Hepatitis C Ab REACTIVE Abnormal NONREACTIVE [place], [place] Comment on above: The hepatitis C [...] Interpretation and review of laboratory results Abnormal [place] Metabolic Panelon 12-06-2020 GFR/1.73 sq M predicted among non-blacks MDRD (S/P/Bld) [Vol rate/Area] [place] Comment on above: Stage 1: Some [...] body mass. Additional eGFR calculator available at: http://www.[facility]/multiple_crcl_2012.htm CBCon 05-30-2020 Erythrocyte distribution width (RBC) [Ratio] 12.7 % Normal 11.8-14.4 [facility] Comment on above: Performed By: #### C P, HCG, CBC #### [facility] [address] [place] [address] [place] [address] Pbx Teacher: Luis A Peng MD #### HIVCMB, PHEP #### [address] [address] Pbx Teacher: Alvino Davila MD Hematocrit (Bld) [Volume fraction] 39.2 % Normal 36.3-47.1 [facility] Comment on above: Performed By: #### C P, HCG, CBC #### [facility] [address] [place] [address] Pbx Teacher: Luis A Peng MD #### HIVCMB, PHEP #### [address] [address] Pbx Teacher: Alvino Davila MD Hemoglobin (Bld) [Mass/Vol] 12.3 g/dL Normal 11.9-15.1 [facility] Comment on above: Performed By: #### C P, HCG, CBC #### [address] [place] [address] Pbx Teacher: Luis A Peng MD #### HIVCMB, PHEP #### [address] [id number] Pbx Teacher: Alvino Davila MD MCH (RBC) [Entitic mass] 26.2 pg Normal 25.2-33.5 [facility] Comment on above: Performed By: #### C P, HCG, CBC #### [address] [place] [id number] Pbx Teacher: Luis A Peng MD #### HIVCMB, PHEP #### [address] [id number] Pbx Teacher: Alvino Davila MD MCHC (RBC) [Mass/Vol] 31.4 g/dL Normal 28.4-34.8 [facility] Comment on above: Performed By: #### C P, HCG, CBC #### [address] [place] 0062783 Pbx Teacher: Luis A Peng MD #### HIVCMB, PHEP #### [address] [id number] Pbx Teacher: Alvino Davila MD MCV (RBC) [Entitic vol] 83.6 fL Normal 82.6-102.9 [facility] Comment on above: Performed By: #### C P, HCG, CBC #### [address] [place] [address] Pbx Teacher: Luis A Peng MD #### HIVCMB, PHEP #### [address] [id number] Pbx Teacher: Alvino Davila MD NRBC Automated 0.0 per 100 WBC Normal 0.0 [facility] Comment on above: Performed By: #### C P, HCG, CBC #### [address] [place] 0062783 Pbx Teacher: Luis A Peng MD #### HIVCMB, PHEP #### [address] [id number] Pbx Teacher: Alvino Davila MD Platelet mean volume (Bld) [Entitic vol] 10.9 fL Normal 8.1-13.5 [facility] Comment on above: Performed By: #### C P, HCG, CBC #### [address] [place] 0062783 Pbx Teacher: Luis A Peng MD #### HIVCMB, PHEP #### [place] [id number] Pbx Teacher: Alvino Davila MD Platelets (Bld) [#/Vol] 277 10*3/uL Normal 138-453 [facility] Comment on above: Performed By: #### C P, HCG, CBC #### [address] [place] 0062783 Pbx Teacher: Luis A Peng MD #### HIVCMB, PHEP #### [place] [address] Pbx Teacher: Alvino Davila MD RBC (Bld) [#/Vol] 4.69 10*6/uL Normal 3.95-5.11 [facility] Comment on above: Performed By: #### C P, HCG, CBC #### [facility] [address] [place] [address] [place] [address] Pbx Teacher: Luis A Peng MD #### HIVCMB, PHEP #### [address] [id number] Pbx Teacher: Alvino Davila MD WBC (Bld) [#/Vol] 5.5 10*3/uL Normal 3.5-11.3 [facility] Comment on above: Performed By: #### C P, HCG, CBC #### [facility] [address] [place] [address] Pbx Teacher: Luis A Peng MD #### HIVCMB, PHEP #### [facility] [address] [place], [place] [phone] Pbx Teacher: Alvino Davila MD Erythrocyte distribution width (RBC) [Ratio] 12.7 % 11.8 - 14.4 % [place] Hematocrit (Bld) [Volume fraction] 39.2 % 36.3 - 47.1 % [place] Hemoglobin (Bld) [Mass/Vol] 12.3 g/dL 11.9 - 15.1 g/dL [place] MCH (RBC) [Entitic mass] 26.2 pg 25.2 - 33.5 pg [place] MCHC (RBC) [Mass/Vol] 31.4 g/dL 28.4 - 34.8 g/dL [place] MCV (RBC) [Entitic vol] 83.6 fL 82.6 - 102.9 fL [place] Platelet mean volume (Bld) [Entitic vol] 10.9 fL 8.1 - 13.5 fL [place] Platelets (Bld) [#/Vol] 277 10*3/uL [place] RBC (Bld) [#/Vol] 4.69 10*6/uL 3.95 - 5.11 m/uL [place] WBC (Bld) [#/Vol] 5.5 10*3/uL [place] WBC (Bld) [#/Vol] 0.0 10*3/uL 0.0 per 100 WBC M [place] Comp Metabolic Profon 2019 (cont.) Normal [facility] Comment on above: Result Comment: Aver age GFR for 20-29 years old: 116 mL/min/1.73sq m Chronic Kidney Disease: <60 mL/min/1.73sq m Kidney failure: <15 mL/min/1.73sq m eGFR calculated using average adult body mass. Additional eGFR calculator available at: http://www.[employer] [facility]/multiple_crcl_2012.htm Performed By: #### C P, HCG, CBC #### [address] [place] [id number] Pbx Teacher: Luis A Peng MD #### HIVCMB, PHEP #### [place] [address] [place] [address] Pbx Teacher: Alvino Davila MD Albumin [Mass/Vol] 3.4 g/dL Low 3.5-5.2 [facility] Comment on above: Performed By: #### C P, HCG, CBC #### [address] [place] 0062783 Pbx Teacher: Luis A Peng MD #### HIVCMB, PHEP #### [place] [address] [place] [address] Pbx Teacher: Alvino Davila MD Albumin/Globulin [Mass ratio] 1.1 {ratio} Normal 1.0-2.5 [facility] Comment on above: Performed By: #### C P, HCG, CBC #### [address] [place] 0062783 Pbx Teacher: Luis A Peng MD #### HIVCMB, PHEP #### [place] [address] [place] [address] Pbx Teacher: Alvino Davila MD Alkaline Phos 130 U/L High 35-104 [facility] Comment on above: Performed By: #### C P, HCG, CBC #### [address] [place] [address] Pbx Teacher: Luis A Peng MD #### HIVCMB, PHEP #### [address] [id number] Pbx Teacher: Alvino Davila MD ALT [Catalytic activity/Vol] 33 U/L Normal 5-33 [facility] Comment on above: Performed By: #### C P, HCG, CBC #### [facility] [address] [place] 0062783 Pbx Teacher: Luis A Peng MD #### HIVCMB, PHEP #### [address] [id number] Pbx Teacher: Alvino Davila MD Anion gap [Moles/Vol] 7 mmol/L Low 9-17 [facility] Comment on above: Performed By: #### C P, HCG, CBC #### [facility] [address] [place] [id number] Pbx Teacher: Luis A Peng MD #### HIVCMB, PHEP #### [address] [id number] Pbx Teacher: Alvino Davila MD AST [Catalytic activity/Vol] 35 U/L High <32 [facility] Comment on above: Performed By: #### C P, HCG, CBC #### [facility] [address] [place] 0062783 Pbx Teacher: Luis A Peng MD #### HIVCMB, PHEP #### [address] [id number] Pbx Teacher: Alvino Davila MD Bilirubin Ql (U) 0.16 mg/dL Low 0.3-1.2 [facility] Comment on above: Performed By: #### C P, HCG, CBC #### [facility] [address] [place], [place] [id number] Pbx Teacher: Luis A Peng MD #### HIVCMB, PHEP #### [place] [address] [place] [address] Pbx Teacher: Alvino Davila MD BUN/CRE Ratio 14 Normal 9-20 [facility] Comment on above: Performed By: #### C P, HCG, CBC #### [facility] [address] [place], [place] [phone] Pbx Teacher: Luis A Peng MD #### HIVCMB, PHEP #### [address] [address] Pbx Teacher: Alvino Davila MD Calcium [Mass/Vol] 9.2 mg/dL Normal 8.6-10.4 [facility] Comment on above: Performed By: #### C P, HCG, CBC #### [facility] [address] [place] [address] Dr. [place], [place] [id number] Pbx Teacher: Luis A Peng MD #### HIVCMB, PHEP #### [address] [address] Pbx Teacher: Alvino Davila MD Chloride [Moles/Vol] 99 mmol/L Normal 98-107 [facility] Comment on above: Performed By: #### C P, HCG, CBC #### [facility] [address] [place] [address] Dr. [place], [place] [phone] Pbx Teacher: Luis A Peng MD #### HIVCMB, PHEP #### [address] [address] Pbx Teacher: Alvino Daivla MD CO2 [Moles/Vol] 29 mmol/L Normal 20-31 [facility] Comment on above: Performed By: #### C P, HCG, CBC #### [facility] [address] [place], [place] 8343083 Pbx Teacher: Luis A Peng MD #### HIVCMB, PHEP #### [address] [address] Pbx Teacher: Alvino Davila MD Creatinine [Mass/Vol] 0.63 mg/dL Normal 0.50-0.90 [facility] Comment on above: Performed By: #### C P, HCG, CBC #### [facility] [address] [place], [place] 0236983 Pbx Teacher: Luis A Peng MD #### HIVCMB, PHEP #### [facility] [address] [place], [place] [phone] Pbx Teacher: Alvino Davila MD GFR, Amer >60 Normal >60 [facility] Comment on above: Performed By: #### C P, HCG, CBC #### [facility] [address] [place] [address] [place], [place] [phone] Pbx Teacher: Luis A Peng MD #### HIVCMB, PHEP #### [address] [id number] Pbx Teacher: Alvino Davila MD GFR,non Amer >60 Normal >60 [facility] Comment on above: Performed By: #### C P, HCG, CBC #### [facility] [address] [place] [address] [place], [place] 6298883 Pbx Teacher: Luis A Peng MD #### HIVCMB, PHEP #### [facility] [address] [place] [address] Pbx Teacher: Alvino Davila MD Glucose [Mass/Vol] 95 mg/dL Normal 70-99 [facility] Comment on above: Performed By: #### C P, HCG, CBC #### [facility] [address] [place], [place] 6351583 Pbx Teacher: Luis A Peng MD #### HIVCMB, PHEP #### [facility] [address] [place] [address] Pbx Teacher: Alvino Davila MD Potassium [Moles/Vol] 4.3 mmol/L Normal 3.7-5.3 [facility] Comment on above: Performed By: #### C P, HCG, CBC #### [facility] [address] [place] [address] [place] [address] Pbx Teacher: Luis A Peng MD #### HIVCMB, PHEP #### [address] [id number] Pbx Teacher: Alvino Davila MD Protein [Mass/Vol] 6.5 g/dL Normal 6.4-8.3 [facility] Comment on above: Performed By: #### C P, HCG, CBC #### [address] [place] [address] Pbx Teacher: Luis A Peng MD #### HIVCMB, PHEP #### [address] [id number] Pbx Teacher: Alvino Davila MD Sodium [Moles/Vol] 135 mmol/L Normal 135-144 [facility] Comment on above: Performed By: #### C P, HCG, CBC #### [address] [place] [address] Pbx Teacher: Luis A Peng MD #### HIVCMB, PHEP #### [address] [id number] Pbx Teacher: Alvino Davila MD Staging: Normal [facility] Comment on above: Result Comment: Stag e 1: Some kidney damage normal GFR Stage 2: Mild kidney damage GFR 60-89 Stage 3: Moderate kidney damage GFR 30-59 Stage 4: Severe kidney damage GFR 15-29 Stage 5: Severe kidney damage GFR <15 ESRD - chronic treatment by dialysis or transplant Performed By: #### C P, HCG, CBC #### [address] [place] [address] Pbx Teacher: Luis A Peng MD #### HIVCMB, PHEP #### [facility] [address] [place], [place] [id number] Pbx Teacher: Alvino aDvila MD Urea nitrogen [Mass/Vol] 9 mg/dL Normal 6-20 [facility] Comment on above: Performed By: #### C P, HCG, CBC #### [facility] [address] [place] [address] Pbx Teacher: Luis A Peng MD #### HIVCMB, PHEP #### [facility] [address] [place] [address] Pbx Teacher: Alvino Davila MD Comprehensive Metabolic Pane [facility] 05-30-2020 Albumin [Mass/Vol] 3.4 g/dL Low 3.5 - 5.2 g/dL [place], [place] Albumin/Globulin [Mass ratio] 1.1 {ratio} [place] ALP [Catalytic activity/Vol] 130 U/L High 35 - 104 U/L [place] ALT [Catalytic activity/Vol] 33 U/L 5 - 33 U/L [place] Anion gap [Moles/Vol] 7 mmol/L Low 9 - 17 mmol/L [place] AST [Catalytic activity/Vol] 35 U/L High <32 [place] Bilirubin Ql (U) 0.16 mg/dL Low 0.3 - 1.2 mg/dL [place], [place] Bun/Cre Ratio 14 [place] Calcium [Mass/Vol] 9.2 mg/dL 8.6 - 10.4 mg/dL [place] Chloride [Moles/Vol] 99 mmol/L 98 - 107 mmol/L [place] CO2 [Moles/Vol] 29 mmol/L 20 - 31 mmol/L [place] Creatinine [Mass/Vol] 0.63 mg/dL 0.5 - 0.9 mg/dL [place] GFR >60 >60 mL/min [place] GFR Non- >60 >60 mL/min [place] Glucose [Mass/Vol] 95 mg/dL 70 - 99 mg/dL [place] Interpretation and review of laboratory results Abnormal [place] Potassium [Moles/Vol] 4.3 mmol/L 3.7 - 5.3 mmol/L [place] Protein [Mass/Vol] 6.5 g/dL 6.4 - 8.3 g/dL [place] Sodium [Moles/Vol] 135 mmol/L 135 - 144 mmol/L [place] Urea nitrogen [Mass/Vol] 9 mg/dL 6 - 20 mg/dL [place] HCG Qualitative, Serumon hCG Qual Negative NEGATIVE [place] Comment on above: Specimens with hCG l evels near the threshold of the test (25 mIU/mL) may give a negative or indeterminate result. In such cases, another test should be performed with a new specimen in 48-72 hours. If early is suspected clinically in this setting, correlation with quantitative serum b-hCG level is suggested. [facility] has confirmed the use of plasma for this test. This has not been cleared or approved by the U.S. Food and Drug Administration. The FDA has determined that such clearance is not necessary. HCG Screen, Bloodon 05-30-20 20 HCG Qn Negative Normal NEG [facility] Comment on above: Result Comment: Spec imens with hCG levels near the threshold of the test (25 mIU/mL) may give a negative or indeterminate result. In such cases, another test should be performed with a new specimen in 48-72 hours. If early is suspected clinically in this setting, correlation with quantitative serum b-hCG level is suggested. [facility] has confirmed the use of plasma for this test. This has not been cleared or approved by the U.S. Food and Drug Administration. The FDA has determined that such clearance is not necessary. Performed By: #### C P, HCG, CBC #### [facility] [address] [place] [address] Pbx Teacher: Luis A Peng MD #### HIVCMB, PHEP #### [facility] [address] [place] [address] Pbx Teacher: Alvino Davila MD HIV Ag/Abon 05-30-2020 HIV Ag/Ab NONREACTIVE Normal [facility] Comment on above: Result Comment: No l aboratory evidence of HIV infection. If acute HIV infection is suspected, consider testing for HIV-1 RNA. Performed By: #### C P, HCG, CBC #### [facility] [address] [place], [place] [phone] Pbx Teacher: Luis A Peng MD #### HIVCMB, PHEP #### [facility] [address] [place] [address] Pbx Teacher: Alvino Davila MD HIV Screenon 05-30-2020 HIV Ag/Ab NONREACTIVE NONREACTIVE [place] Comment on above: No laboratory eviden ce of HIV infection. If acute HIV infection is suspected, consider testing for HIV-1 RNA. Hepatitis Acute [facility] 05-30 Hep A Ab,IgM NONREACTIVE Normal [facility] Comment on above: Performed By: #### C P, HCG, CBC #### [address] [place], [place] [phone] Pbx Teacher: Luis A Peng MD #### HIVCMB, PHEP #### [place] [address] [place] [address] Pbx Teacher: Alvino Davila MD Hep B Core Ab,IgM NONREACTIVE Normal [facility] Comment on above: Performed By: #### C P, HCG, CBC #### [facility] [address] [place], [place] 7552683 Pbx Teacher: Luis A Peng MD #### HIVCMB, PHEP #### [facility] [address] [place] [address] Pbx Teacher: Alvino Davila MD Hep B Surf Ag NONREACTIVE Normal [facility] Comment on above: Performed By: #### C P, HCG, CBC #### [facility] [address] [place], [place] [id number] Pbx Teacher: Luis A Peng MD #### HIVCMB, PHEP #### [facility] [address] [place] [address] Pbx Teacher: Alvino Davila MD Hep C Ab NONREACTIVE Normal NR [facility] Comment on above: Result Comment: The hepatitis [...] By: #### C P, HCG, CBC #### [facility] [address] [place] [address] [place], [place] [phone] Pbx Teacher: Luis A Peng MD #### HIVCMB, PHEP #### [place] [address] [place], [place] [phone] Pbx Teacher: Alvino Davila MD Hepatitis Panel, Acuteon HAV IgM IA Qn (S) NONREACTIVE NONREACTIVE [place] Hep B Core Ab, IgM NONREACTIVE NONREACTIVE [place] Hepatitis B Surface Ag NONREACTIVE NONREACTIVE [place] Hepatitis C Ab NONREACTIVE NONREACTIVE [place] Comment on above: The hepatitis C [...] predicted among non-blacks MDRD (S/P/Bld) [Vol rate/Area] [place] Comment on above: Stage 1: Some [...] body mass. Additional eGFR calculator available at: http://www.[employer]/multiple_crcl_2012.htm [facility] 01-01-2020 Erythrocyte distribution width (RBC) [Ratio] 12.5 % Normal 11.8-14.4 [facility] Comment on above: Performed By: #### P HEP, HIVCMB #### [address] [id number] Pbx Teacher: Alvino Davila MD #### CP, CBC, HCG #### [address] [place] [address] Pbx Teacher: Luis A Peng MD Hematocrit (Bld) [Volume fraction] 40.2 % Normal 36.3-47.1 [facility] Comment on above: Performed By: #### P HEP, HIVCMB #### [address] [address] Pbx Teacher: Alvino Davila MD #### CP, CBC, HCG #### [address] [place] [address] Pbx Teacher: Luis A Peng MD Hemoglobin (Bld) [Mass/Vol] 13.1 g/dL Normal 11.9-15.1 [facility] Comment on above: Performed By: #### P HEP, HIVCMB #### [address] [address] Pbx Teacher: Alvino Davila MD #### CP, CBC, HCG #### [address] [place] [address] Pbx Teacher: Luis A Peng MD MCH (RBC) [Entitic mass] 28.4 pg Normal 25.2-33.5 [facility] Comment on above: Performed By: #### P HEP, HIVCMB #### [address] [id number] Pbx Teacher: Alvino Davila MD #### CP, CBC, HCG #### [address] [place] 0062783 Pbx Teacher: Luis A Peng MD MCHC (RBC) [Mass/Vol] 32.6 g/dL Normal 28.4-34.8 [facility] Comment on above: Performed By: #### P HEP, HIVCMB #### [address] [address] Pbx Teacher: Alvino Davila MD #### CP, CBC, HCG #### [address] [place] 0062783 Pbx Teacher: Luis A Peng MD MCV (RBC) [Entitic vol] 87.2 fL Normal 82.6-102.9 [facility] Comment on above: Performed By: #### P HEP, HIVCMB #### [place] [address] Pbx Teacher: Alvino Davila MD #### CP, CBC, HCG #### [address] [place] 0062783 Pbx Teacher: Luis A Peng MD NRBC Automated 0.0 per 100 WBC Normal 0.0 [facility] Comment on above: Performed By: #### P HEP, HIVCMB #### [place] [address] Pbx Teacher: Alvino Davila MD #### CP, CBC, HCG #### [address] [place] [address] Pbx Teacher: Luis A Peng MD Platelet mean volume (Bld) [Entitic vol] 11.2 fL Normal 8.1-13.5 [facility] Comment on above: Performed By: #### P HEP, HIVCMB #### [place] [place] [address] Pbx Teacher: Alvino Davila MD #### CP, CBC, HCG #### [address] [place] 0062783 Pbx Teacher: Luis A Peng MD Platelets (Bld) [#/Vol] 241 10*3/uL Normal 138-453 [facility] Comment on above: Performed By: #### P HEP, HIVCMB #### [address] [id number] Pbx Teacher: Alvino Davila MD #### CP, CBC, HCG #### [address] [place] 0062749 ( Pbx Teacher: Luis A Peng MD RBC (Bld) [#/Vol] 4.61 10*6/uL Normal 3.95-5.11 [facility] Comment on above: Performed By: #### P HEP, HIVCMB #### [address] [address] Pbx Teacher: Alvino Davila MD #### CP, CBC, HCG #### [address] [place] 0062783 Pbx Teacher: Luis A Peng MD WBC (Bld) [#/Vol] 9.0 10*3/uL Normal 3.5-11.3 [facility] Comment on above: Performed By: #### P HEP, HIVCMB #### [address] [id number] Pbx Teacher: Alvino Davila MD #### CP, CBC, HCG #### [address] [place] 0062783 Pbx Teacher: Luis A Peng MD Erythrocyte distribution width (RBC) [Ratio] 12.5 % 11.8 - 14.4 % [place] Hematocrit (Bld) [Volume fraction] 40.2 % 36.3 - 47.1 % [place] Hemoglobin (Bld) [Mass/Vol] 13.1 g/dL 11.9 - 15.1 g/dL [place] MCH (RBC) [Entitic mass] 28.4 pg 25.2 - 33.5 pg [place] MCHC (RBC) [Mass/Vol] 32.6 g/dL 28.4 - 34.8 g/dL [place] MCV (RBC) [Entitic vol] 87.2 fL 82.6 - 102.9 fL [place] Platelet mean volume (Bld) [Entitic vol] 11.2 fL 8.1 - 13.5 fL [place] Platelets (Bld) [#/Vol] 241 10*3/uL [place] RBC (Bld) [#/Vol] 4.61 10*6/uL 3.95 - 5.11 m/uL [place] WBC (Bld) [#/Vol] 0.0 10*3/uL 0.0 per 100 WBC [place] WBC (Bld) [#/Vol] 9.0 10*3/uL [place] Comp Metabolic Profon 2019 (cont.) Normal [facility] Comment on above: Result Comment: Aver age GFR for 20-29 years old: 116 mL/min/1.73sq m Chronic Kidney Disease: <60 mL/min/1.73sq m Kidney failure: <15 mL/min/1.73sq m eGFR calculated using average adult body mass. Additional eGFR calculator available at: http://www.[employer]/multiple_crcl_2011.htm Performed By: #### P HEP, HIVCMB #### [facility] [facility] [place] [address] Pbx Teacher: Alvino Davila MD #### CP, CBC, HCG #### [facility] [address] [place], [place] [id number] Pbx Teacher: Luis A Peng MD Albumin [Mass/Vol] 4.2 g/dL Normal 3.5-5.2 [facility] Comment on above: Performed By: #### P HEP, HIVCMB #### [address] [address] Pbx Teacher: Alvino Davila MD #### CP, CBC, HCG #### [facility] [address] [place], [place] 1202683 Pbx Teacher: Luis A Peng MD Albumin/Globulin [Mass ratio] 1.7 {ratio} Normal 1.0-2.5 [facility] Comment on above: Performed By: #### P HEP, HIVCMB #### [address] [address] Pbx Teacher: Alvino Davila MD #### CP, CBC, HCG #### [address] [place], [place] 9550383 Pbx Teacher: Luis A Peng MD Alkaline Phos 69 U/L Normal 35-104 [facility] Comment on above: Performed By: #### P HEP, HIVCMB #### [address] [address] Pbx Teacher: Alvino Davila MD #### CP, CBC, HCG #### [facility] [address] [place] [address] Pbx Teacher: Luis A Peng MD ALT [Catalytic activity/Vol] 78 U/L High 5-33 [facility] Comment on above: Performed By: #### P HEP, HIVCMB #### [address] [address] Pbx Teacher: Alvino Davila MD #### CP, CBC, HCG #### [facility] [address] [place], [place] 6742683 Pbx Teacher: Luis A Peng MD Anion gap [Moles/Vol] 9 mmol/L Normal 9-17 [facility] Comment on above: Performed By: #### P HEP, HIVCMB #### [address] [address] Pbx Teacher: Alvino Davila MD #### CP, CBC, HCG #### [facility] [address] [place], [place] 6137383 Pbx Teacher: Luis A Peng MD AST [Catalytic activity/Vol] 44 U/L High <32 [facility] Comment on above: Performed By: #### P HEP, HIVCMB #### [address] [address] Pbx Teacher: Alvino Davila MD #### CP, CBC, HCG #### [address] [place], [place] 8438283 Pbx Teacher: Luis A Peng MD Bilirubin Ql (U) 0.15 mg/dL Low 0.3-1.2 [facility] Comment on above: Performed By: #### P HEP, HIVCMB #### [address] [address] Pbx Teacher: Alvino Davila MD #### CP, CBC, HCG #### [address] [place], [place] 6636283 Pbx Teacher: Luis A Peng MD BUN/CRE Ratio 20 Normal 9-20 [facility] Comment on above: Performed By: #### P HEP, HIVCMB #### [address] [address] Pbx Teacher: Alvino Davila MD #### CP, CBC, HCG #### [address] [place] [address] Pbx Teacher: Luis A Peng MD Calcium [Mass/Vol] 9.4 mg/dL Normal 8.6-10.4 [facility] Comment on above: Performed By: #### P HEP, HIVCMB #### [address] [id number] Pbx Teacher: Alvino Davila MD #### CP, CBC, HCG #### [address] [place] [address] Pbx Teacher: Luis A Peng MD Chloride [Moles/Vol] 97 mmol/L Low 98-107 [facility] Comment on above: Performed By: #### P HEP, HIVCMB #### [address] [id number] Pbx Teacher: Alvino Davila MD #### CP, CBC, HCG #### [address] [place] [id number] Pbx Teacher: Luis A Peng MD CO2 [Moles/Vol] 28 mmol/L Normal 20-31 [facility] Comment on above: Performed By: #### P HEP, HIVCMB #### [address] [id number] Pbx Teacher: Alvino Davila MD #### CP, CBC, HCG #### [address] [place] [id number] Pbx Teacher: Luis A Peng MD Creatinine [Mass/Vol] 0.55 mg/dL Normal 0.50-0.90 [facility] Comment on above: Performed By: #### P HEP, HIVCMB #### [address] [id number] Pbx Teacher: Alvino Davila MD #### CP, CBC, HCG #### [address] [place] [address] Pbx Teacher: Luis A Peng MD GFR, Amer >60 Normal >60 [facility] Comment on above: Performed By: #### P HEP, HIVCMB #### [facility] [address] [place] [address] Pbx Teacher: Alvino Davila MD #### CP, CBC, HCG #### [facility] [address] [place], [place] [id number] Pbx Teacher: Luis A Peng MD GFR,non Amer >60 Normal >60 [facility] Comment on above: Performed By: #### P HEP, HIVCMB #### [address] [address] Pbx Teacher: Alvino Davila MD #### CP, CBC, HCG #### [facility] [address] [place] [address] [place] [address] Pbx Teacher: Luis A Peng MD Glucose [Mass/Vol] 85 mg/dL Normal 70-99 [facility] Comment on above: Performed By: #### P HEP, HIVCMB #### [address] [address] Pbx Teacher: Alvino Davila MD #### CP, CBC, HCG #### [facility] [address] [place] [address] [place] [id number] Pbx Teacher: Luis A Peng MD Potassium [Moles/Vol] 4.3 mmol/L Normal 3.7-5.3 [facility] Comment on above: Performed By: #### P HEP, HIVCMB #### [address] [address] Pbx Teacher: Alvino Davila MD #### CP, CBC, HCG #### [facility] [address] [place], [place] [id number] Pbx Teacher: Luis A Peng MD Protein [Mass/Vol] 6.7 g/dL Normal 6.4-8.3 [facility] Comment on above: Performed By: #### P HEP, HIVCMB #### [facility] [address] [place] [address] Pbx Teacher: Alvino Davila MD #### CP, CBC, HCG #### [address] [place], [place] [id number] Pbx Teacher: Luis A Peng MD Sodium [Moles/Vol] 134 mmol/L Low 135-144 [facility] Comment on above: Performed By: #### P HEP, HIVCMB #### [address] [address] Pbx Teacher: Alvino Davila MD #### CP, CBC, HCG #### [address] [place] [address] Pbx Teacher: Luis A Peng MD Staging: Normal [facility] Comment on above: Result Comment: Stag e 1: Some kidney damage normal GFR Stage 2: Mild kidney damage GFR 60-89 Stage 3: Moderate kidney damage GFR 30-59 Stage 4: Severe kidney damage GFR 15-29 Stage 5: Severe kidney damage GFR <15 ESRD - chronic treatment by dialysis or transplant Performed By: #### P HEP, HIVCMB #### [address] [address] Pbx Teacher: Alvino Davila MD #### CP, CBC, HCG #### [address] [place], [place] [id number] Pbx Teacher: Luis A Peng MD Urea nitrogen [Mass/Vol] 11 mg/dL Normal 6-20 [facility] Comment on above: Performed By: #### P HEP, HIVCMB #### [address] [address] Pbx Teacher: Alvino Davila MD #### CP, CBC, HCG #### [address] [place] [address] Pbx Teacher: Luis A Peng MD Comprehensive Metabolic Pane liu 01-01-2020 Albumin [Mass/Vol] 4.2 g/dL 3.5 - 5.2 g/dL [place], [place] Albumin/Globulin [Mass ratio] 1.7 {ratio} [place] ALP [Catalytic activity/Vol] 69 U/L 35 - 104 U/L [place] ALT [Catalytic activity/Vol] 78 U/L High 5 - 33 U/L [place] Anion gap [Moles/Vol] 9 mmol/L 9 - 17 mmol/L [place] AST [Catalytic activity/Vol] 44 U/L High <32 [place] Bilirubin Ql (U) 0.15 mg/dL Low 0.3 - 1.2 mg/dL [place], [place] Bun/Cre Ratio [address] [place], [place] Calcium [Mass/Vol] 9.4 mg/dL 8.6 - 10.4 mg/dL [place] Chloride [Moles/Vol] 97 mmol/L Low 98 - 107 mmol/L [place] CO2 [Moles/Vol] 28 mmol/L 20 - 31 mmol/L [place] Creatinine [Mass/Vol] 0.55 mg/dL 0.5 - 0.9 mg/dL [place] GFR >60 >60 mL/min [place] GFR Non- >60 >60 mL/min [place] Glucose [Mass/Vol] 85 mg/dL 70 - 99 mg/dL [place], [place] Interpretation and review of laboratory results Abnormal [place] Potassium [Moles/Vol] 4.3 mmol/L 3.7 - 5.3 mmol/L [place] Protein [Mass/Vol] 6.7 g/dL 6.4 - 8.3 g/dL [place] Sodium [Moles/Vol] 134 mmol/L Low 135 - 144 mmol/L [place] Urea nitrogen [Mass/Vol] 11 mg/dL 6 - 20 mg/dL [place] HCG Qualitative, Serumon 03- 02-2020 hCG Qual Negative NEGATIVE [place] Comment on above: Specimens with hCG l evels near the threshold of the test (25 mIU/mL) may give a negative or indeterminate result. In such cases, another test should be performed with a new specimen in 48-72 hours. If early is suspected clinically in this setting, correlation with quantitative serum b-hCG level is suggested. [facility] has confirmed the use of plasma for this test. This has not been cleared or approved by the U.S. Food and Drug Administration. The FDA has determined that such clearance is not necessary. HCG Screen, Bloodon 01-01-20 20 HCG Qn Negative Normal NEG [facility] Comment on above: Result Comment: Spec imens with hCG levels near the threshold of the test (25 mIU/mL) may give a negative or indeterminate result. In such cases, another test should be performed with a new specimen in 48-72 hours. If early is suspected clinically in this setting, correlation with quantitative serum b-hCG level is suggested. [facility] has confirmed the use of plasma for this test. This has not been cleared or approved by the U.S. Food and Drug Administration. The FDA has determined that such clearance is not necessary. Performed By: #### P HEP, HIVCMB #### [id number] [place], [place] [id number] Pbx Teacher: Alvino Davila MD #### CP, CBC, HCG #### [address] [place] [address] Pbx Teacher: Luis A Peng MD HIV Ag/Abon 01-01-2020 HIV Ag/Ab NONREACTIVE Normal NR [facility] Comment on above: Result Comment: No l aboratory evidence of HIV infection. If acute HIV infection is suspected, consider testing for HIV-1 RNA. Performed By: #### P HEP, HIVCMB #### [facility] [address] [place] [address] Pbx Teacher: Alvino Davila MD #### CP, CBC, HCG #### [facility] [address] [place] [address] [place] [address] Pbx Teacher: Luis A Peng MD HIV Screenon 01-01-2020 HIV Ag/Ab NONREACTIVE NONREACTIVE [place] Comment on above: No laboratory eviden ce of HIV infection. If acute HIV infection is suspected, consider testing for HIV-1 RNA. Hepatitis Acute [facility] 12-31 Hep A Ab,IgM NONREACTIVE Normal NR [facility] Comment on above: Performed By: #### P HEP, HIVCMB #### [address] [address] Pbx Teacher: Alvino Davila MD #### CP, CBC, HCG #### [address] [place] [address] Pbx Teacher: Luis A Peng MD Hep B Core Ab,IgM NONREACTIVE Normal [facility] Comment on above: Performed By: #### P HEP, HIVCMB #### [address] [address] Pbx Teacher: Alvino Davila MD #### CP, CBC, HCG #### [facility] [address] [place] [address] [place] [address] Pbx Teacher: Luis A Peng MD Hep B Surf Ag NONREACTIVE Normal [facility] Comment on above: Performed By: #### P HEP, HIVCMB #### [address] [address] Pbx Teacher: Alvino Davila MD #### CP, CBC, HCG #### [facility] [address] [place] [address] [place] [address] Pbx Teacher: Luis A Peng MD Hep C Ab NONREACTIVE [facility] Comment on above: Result Comment: [...] Performed By: #### P HEP, HIVCMB #### [facility] [address] [place] [address] Pbx Teacher: Alvino Davila MD #### CP, CBC, HCG #### [facility] [address] [place] [address] Pbx Teacher: Luis A Peng MD Hepatitis Panel, Acuteon HAV IgM IA Qn (S) NONREACTIVE NONREACTIVE [place] Hep B Core Ab, IgM NONREACTIVE NONREACTIVE [place] Hepatitis B Surface Ag NONREACTIVE NONREACTIVE [place] Hepatitis C Ab NONREACTIVE NONREACTIVE [place], [place] Comment on above: The hepatitis C [...] predicted among non-blacks MDRD (S/P/Bld) [Vol rate/Area] [place] Comment on above: Stage 1: Some [...] body mass. Additional eGFR calculator available at: http://www.[employer]/multiple_crcl_2012.htm Encounters Encounter Date Encounter Type Care Provider [...] 03-27-2021 End: 03-28-2021 ambulatory Rody Monk MD Facility:[facility] Start: 12-06-2020 End: 12-07-2020 Patient encounter procedure [facility] Start: 12-06-2020 End: 12-06-2020 Subsequent hospital visit by physician [facility] Start: 11-11-2020 End: 11-12-2020 Patient encounter procedure [facility] Start: 05-30-2020 End: 05-31-2020 Patient encounter procedure [facility] Start: 05-30-2020 End: 05-30-2020 Subsequent hospital visit by physician [facility] Start: 01-01-2020 End: 01-02-2020 Patient encounter procedure [facility] Start: 01-01-2020 End: 01-01-2020 Subsequent hospital visit by physician [facility] Start: 09-20-2018 End: 09-21-2018 Patient encounter procedure Sidney Nava Facility:[id number] Procedures Date Procedure Procedure Detail Performing Clinician [...] CATRINA Start: 05-30-2020 Blood count complete automated MALIIN CATRINA Start: 05-30-2020 Comprehensive metabo lic panel [...] 07-02-2020 Influenza vaccination Flu vaccine (# 1) [facility] [place], [place] Payers Date Payer Category Payer Unknown 2019 Unknown [facility] FORMERLY [facility] xxxxxxxxxxxx 2019-Present [phone] [address] [place] [address] xxxxxxxxxxxx [id number] 2019 Unknown [facility] PL[facility] [id number] 2019-Present [phone] [address] [place] [address] [id number] 1992 Unknown [id number] 1992 Unknown [id number] 1992 Unknown [id number] 1992 Unknown [id number] 1992 Unknown [id number] 1992 Unknown [id number] 1992 Unknown [id number] 1992 Unknown [id number] [id number] 1992 Unknown [id number] [id number] 1992 Unknown [id number] [id number] 1992 Unknown [id number] 1959 Unknown [id number] Social History Date Type Detail Facility Tobacco smoking status NHIS Unknown if ev er smoked [facility] JESSENIA Sex Assigned At Not on file [place], [place] Summary Purpose Family History No Family History Records FoundNo Family History Records FoundNo Family History Records FoundNo Family History Records Found Advance Directives No Advanced Directives Records FoundDocuments on File Type Date Recorded Patient Pantry Steward/Stewardess Expl anation Advance Directives and Living Will Power of Polygraph Operator Documents on File Type Date Recorded Patient Pantry Steward/Stewardess Expl anation ACP-Advance Directive ACP-Power of Polygraph Operator Additional Source Comments INFORMATION SOURCE (unrecogn ized section and content) DATE CREATED AUTHOR [facility]10/2018 [facility] DATE CREATED AUTHOR AUTHOR'S ORGANIZ ATION 12/06/2020 [facility] DATE CREATED AUTHOR AUTHOR'S ORGANIZ ATION 03/29/2021 [facility] DATE CREATED AUTHOR AUTHOR'S ORGANIZ ATION 12/10/2022 [facility] FOR RECORDS PERTAINING TO PATIENTS [...] BE BASED ON THE PRIMARY CLINICAL RECORDS. [facility]. provides no warranty or guarantee of the accuracy or completeness of information in this document.
--- NOTE | 2024-09-20 21:27 | ED_ITS ---
HPI HPI - General Adult General Chief complaint: Fever Stated complaint: fever Time Seen by Provider: 09/20/24 21:08 Source: patient Mode of arrival: walk-in Limitations: no limitations History of Present Illness HPI narrative: 34-year-old female presents for congestion and what she believes was a fever. She thinks her thermometer might be broke at home because it keeps reading over 100 degrees and when she got here she did not have a fever on her thermometer. She was seen here this morning and had testing including CT of her sinuses as well as COVID and influenza testing, all of which was negative. A prescription for Zithromax was sent to the pharmacy but she did not realize that it was sent and did not pick it up. Related Data Home Medications ?Medication ?Instructions ?Recorded ?Confirmed buprenorphine 8 mg-naloxone 2 mg 1 film sublingual DAILY 04/11/23 09/20/24 sublingual film (Suboxone) gabapentin 400 mg capsule mg 10/20/23 quetiapine 50 mg tablet mg 09/20/24 Previous Rx's ?Medication ?Instructions ?Recorded azithromycin 500 mg tablet See Rx Instructions PO .COMPLEX #3 09/20/24 (Zithromax TRI-MARY) tabs Allergies Allergy/AdvReac Type Severity Reaction Status Date / Time Penicillins Allergy Severe unknown Verified 09/20/24 21:12 Opioid HPI Opioid Management Most Recent Opioid Data: Last Pain Scale 6 09/20/24 05:35 09/20/24 Review of Systems ROS Narrative A ten point review of systems is negative except as noted above. PFSH PFSH Social History Smoking status: Current every day smoker Little interest or pleasure in doing things: not at all Feeling down, depressed, or hopeless: not at all Exam Narrative Exam Narrative: Nurses note and vital signs reviewed and patient is not hypoxic. General: The patient appears in no apparent distress. Patient is resting comfortably on cart. Skin: Warm, dry, no pallor noted. There is no rash noted. Head: Normocephalic, atraumatic Eye: Normal conjunctiva, no drainage, EOMI. PERRL Ears, Nose, Mouth, and Throat: oral mucosa is moist. Nares patent. No facial swelling Cardiovascular: Regular Rate and Rhythm Respiratory: Patient is in no distress, no accessory muscle use, lungs are clear to auscultation, no wheezing, rales or rhonchi Back: non-tender GI: Nontender Musculoskeletal: The patient has no evidence of calf tenderness, no pitting edema, symmetrical pulses noted bilaterally Neurological: A&O, normal speech Psychiatric: Cooperative Constitutional Vital Signs, click to edit/add: Last Vital Signs Temp 98.3 F 09/20/24 21:05 Pulse 113 H 09/20/24 21:05 Resp 18 09/20/24 21:05 BP 119/72 09/20/24 21:05 Pulse Ox 99 09/20/24 21:05 O2 Del Method Room Air 09/20/24 21:05 Course Vital Signs Vital signs: Vital Signs Temperature 98.3 F 09/20/24 21:05 Pulse Rate 113 H 09/20/24 21:05 Respiratory Rate 18 09/20/24 21:05 Blood Pressure 119/72 09/20/24 21:05 Pulse Oximetry 99 09/20/24 21:05 Oxygen Delivery Method Room Air 09/20/24 21:05 Temperature 98.3 F 09/20/24 21:05 Pulse Rate 113 H 09/20/24 21:05 Respiratory Rate 18 09/20/24 21:05 Blood Pressure 119/72 09/20/24 21:05 Pulse Oximetry 99 09/20/24 21:05 Oxygen Delivery Method Room Air 09/20/24 21:05 Medical Decision Making MDM Narrative Medical decision making narrative: She was given her first dose of Zithromax here because her pharmacy is closed and 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 Treatment diagnosis and follow-up were discussed with the patient Differential Diagnosis Differential Diagnosis: Sinusitis, COVID, influenza Discharge Plan Discharge Chief Complaint: Fever Clinical Impression: Acute upper respiratory infection Patient Disposition: Home, Self-Care Time of Disposition Decision: 21:26 Condition: Good Mode of Transportation: Private Vehicle Prescriptions / Home Meds: No Action buprenorphine-naloxone [Suboxone] 8-2 mg film 1 film sublingual DAILY gabapentin 400 mg capsule quetiapine 50 mg tablet azithromycin [Zithromax TRI-MARY] 500 mg tablet See Rx Instructions .ROUTE .COMPLEX Qty: 3 0RF Patient Comments: pt not aware of this script-did not get Rx Instructions: For 250 mg dose pack: take 500 mg today (day 1), then 250 mg for 4 days (days 2-5) Print Language: Ecuadorean Instructions: Upper Respiratory Infection (ED) Referrals: ROMEO GAR [Primary Care Provider] - 1 week
[2024-09-20] MEDS: AZITHROMYCIN 250 MG TABLET 500 MG PO (21:36)
--- NOTE | 2024-09-20 21:45 | PC.NURSE ---
this patient was seen here early to day for this complaints but this patient left early because getting her kids off the bus, and this patent never picked up her oral ATB (Rx)
--- NOTE | 2024-09-20 21:48 | PC.NURSE ---
i gave this patient verbal and paper discharge orders and she voics yes to understanding these. at time of discharge this patient voices no concerns and shows no signs of distress
== END 2024-09-20 21:49 | disposition home or self-care (01) ==
PROVIDERS: Emergency Provider Emergency Medicine; PCP Nurse Practitioner Family
DX: J06.9 Acute upper respiratory infection, unspecified (principal)
CPT/HCPCS: 99282

== ENCOUNTER 2024-11-22 09:56 | Outpatient (RCR) | payer OTHER, SELFPAY | END 2024-12-05 14:22 | disposition home or self-care (01) | LOC: PT 09:56 | PROVIDERS: PCP Nurse Practitioner Family; Visit Provider Nurse Practitioner Family | DX: M62.830 Muscle spasm of back (principal); M54.59 Other low back pain | CPT/HCPCS: 97110; 97112; 97161 ==

== ENCOUNTER 2024-11-29 09:30 | Outpatient (RCR) | payer OTHER, SELFPAY ==
--- OUTSIDE RECORDS SUMMARY | 2024-11-29 09:51 | XMS_ITS | CCD ---
Author Organization [facility] Informat ion Partnership COMBER SETTER [facility] Care Team Providers Care Stained Glass Installer Name Role Phone Sidney Nava Unavailable Unavailable [...] source) Penicillins Drug allergy (disorder) 04-10-[address] [facility] Repository Problems Active Problems Problem Classification Problem [...] 07-31-2022 Episodic Other aftercare (5 sources) Other long term acute care registered nurse (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 therapy; Translations: [OTH LONGTERM CURRENT DRUG THERAPY] Onset: 07-31-2022 Episodic Other [...] ity COMPLIANCE DRUG SCREENon PDF . Normal [facility] Comment on above: Performed By: #### D SDOALC #### [facility] [address] [address] [address] Roberto Parmar Summary FINAL Normal [facility] Comment on above: Result Comment: === TOXASSURE [...] is an expected metabolite of dextromethorphan, an qhbs-lab-tvyadqe or prescription cough suppressant. Levorphanol is a scheduled prescription medication. Dextrorphan cannot be distinguished from levorphanol by the method used for analysis. Guaifenesin PRESENT UNEXPECTED Guaifenesin may be administered as an osdq-nwc-thphhhc or prescription drug; it may also be [...] === Performed By: #### D SDOALC #### [facility] [address] [place] [address] Dr. Roberto Parmar URIC ACID RAND URINEon 09-03 Uric Acid, Urine 12.4 mg/dL Normal Not Estab. [facility] Comment on above: Performed By: #### U RICUR #### [facility] [address] [address] [address] Roberto Parmar DRUG SCREEN RAPID (URINE)on 09-02-2022 AMP Negative Normal NEGATIVE [facility] Comment on above: Performed By: #### D RUGRPD #### [facility] [address] [place] [address] Dr. Roberto Parmar BAR Negative Normal NEGATIVE [facility] Comment on above: Performed By: #### D RUGRPD #### [facility] [address] [address] [address] Roberto Parmar BUP Positive Abnormal NEGATIVE [facility] Comment on above: Performed By: #### D RUGRPD #### [facility] [address] [place] [address] Dr. Roberto Parmar BZO Positive Abnormal NEGATIVE [facility] Comment on above: Performed By: #### D RUGRPD #### [facility] [address] [address] [address] Roberto Parmar BRITTANY Negative Normal NEGATIVE [facility] Comment on above: Performed By: #### D RUGRPD #### [facility] [address] [place] [address] Dr. Roberto Parmar CUT-OFFS SEE BELOW Normal [facility] Comment on above: Result Comment: AMP (Amphetamine): 500ng/mL, BAR (Barbituates): 200 ng/mL, BZO (Benzodiazepines): 150 ng/mL, BUP (Buprenorphine): 10 ng/mL, BRITTANY (Cocaine): 150 ng/mL, mAMP (Methamphetamine): 500 ng/mL, MTD (Methadone): 200 ng/mL, OPI (Opiates): 100 ng/mL, OXY (Oxycodone): 100 ng/mL, PCP (Phencyclidine): 25 ng/mL, PPX (Propoxyphene): 300 ng/mL, THC (Cannabinoids): 50 ng/mL, TCA (Trycyclic Antidepressants): 300 ng/mL Performed By: #### D RUGRPD #### [facility] [address] [place] [address] Dr. Roberto Parmar DRUG CUT HEADER DRUG CLASS TEST SYSTEM CUT-OFF CONCENTRATIONS ARE FOLLOWS: Normal [facility] Comment on above: Performed By: #### D RUGRPD #### [facility] [address] [place] [address] Dr. Roberto Parmar mAMP Negative Normal NEGATIVE [facility] Comment on above: Performed By: #### D RUGRPD #### [facility] [address] [address] [address] Roberto Parmar MTD Negative Normal NEGATIVE [facility] Comment on above: Performed By: #### D RUGRPD #### [facility] [address] [address] [address] Roberto Parmar OPI Negative Normal NEGATIVE [facility] Comment on above: Performed By: #### D RUGRPD #### [facility] [address] [place] [address] Dr. Roberto Parmar OXY Negative Normal NEGATIVE [facility] Comment on above: Performed By: #### D RUGRPD #### [facility] [address] [address] [address] Roberto Parmar PCP Negative Normal NEGATIVE [facility] Comment on above: Performed By: #### D RUGRPD #### [facility] [address] [place] [address] Dr. Roberto Parmar PPX Negative Normal NEGATIVE [facility] Comment on above: Performed By: #### D RUGRPD #### [facility] [address] [place] [address] Dr. Roberto Parmar TCA Negative Normal NEGATIVE [facility] Comment on above: Performed By: #### D RUGRPD #### [facility] [address] [place] [address] Dr. Roberto Parmar THC Negative Normal NEGATIVE [facility] Comment on above: Performed By: #### D RUGRPD #### [facility] [address] [place] [address] Dr. Roberto Parmar US PELVIS AND TRANSVAGon [...] for patient's symptoms. Electronically authenticated by: MAYUR LALEN Date: 2022-07-13 07:21 Normal [facility] PAP ACOG PANEL 2: 23 to 31on 06-18-2022 . . Normal [facility] Comment on above: Performed By: #### [id number] #### [facility] [address] [place] [address] Dr. Roberto Parmar Age Gdln ACOG Testing 21-29 Normal [facility] Comment on above: Performed By: #### [id number] #### [facility] [address] [place] [address] Dr. Roberto Parmar DIAGNOSIS: Comment Normal [facility] Comment on above: Result Comment: NEGA TIVE FOR INTRAEPITHELIAL LESION OR MALIGNANCY. Performed By: #### [id number] #### [facility] [address] [place] [address] Dr. Roberto Parmar Methodology: Comment [facility] Comment on above: Result Comment: This liquid based ThinPrep(R) pap test was screened with the use of an image guided system. Performed By: #### [id number] #### [facility] [address] [place] [address] Dr. Roberto Parmar Note: Comment [facility] Comment on above: Result Comment: The Pap smear is a screening test designed to aid in the detection of premalignant and malignant conditions of the uterine cervix. It is not a diagnostic procedure and should not be used as the sole means of detecting cervical cancer. Both false-positive and false-negative reports do occur. . Performed By: #### [id number] #### [facility] [address] [place] [address] Dr. Roberto Parmar Performed by: Comment Normal [facility] Comment on above: Result Comment: Kishore De Dios Operations And Maintenance Specialist (ASCP) Performed By: #### [id number] #### [facility] [address] [place] [address] Dr. Roberto Parmar Reflex Criteria: Comment [facility] Comment on above: Result Comment: The HPV DNA reflex criteria were not met with this specimen result therefore, no HPV testing was performed. . Performed By: #### [id number] #### [facility] [address] [place] [address] Dr. Roberto Parmar Specimen adequacy: Comment Normal [facility] Comment on above: Result Comment: Sati sfactory for evaluation. Endocervical and/or squamous metaplastic cells (endocervical component) are present. Performed By: #### [id number] #### [facility] [address] [place] [address] Dr. Roberto Parmar CBCon 12-06-2020 Erythrocyte distribution width (RBC) [Ratio] 13.6 % Normal 11.8-14.4 [facility] Comment on above: Performed By: #### P HEP, HIVCMB #### [facility] [address] [place] [address] Manager Of Warehouse: Alvino Davila MD #### CP, CBC, HCG #### [facility] [address] [place] [address] Manager Of Warehouse: Luis A Peng MD Hematocrit (Bld) [Volume fraction] 44.1 % Normal 36.3-47.1 [facility] Comment on above: Performed By: #### P HEP, HIVCMB #### [facility] [address] [place], [place] [id number] Manager Of Warehouse: Alvino Davila MD #### CP, CBC, HCG #### [facility] [address] [place] [address] Dr. [place], [place] [id number] Manager Of Warehouse: Luis A Peng MD Hemoglobin (Bld) [Mass/Vol] 14.1 g/dL Normal 11.9-15.1 [facility] Comment on above: Performed By: #### P HEP, HIVCMB #### [address] [id number] Manager Of Warehouse: Alvino Davila MD #### CP, CBC, HCG #### [address] [place] [address] Manager Of Warehouse: Luis A Peng MD MCH (RBC) [Entitic mass] 25.4 pg Normal 25.2-33.5 [facility] Comment on above: Performed By: #### P HEP, HIVCMB #### [address] [id number] Manager Of Warehouse: Alvino Davila MD #### CP, CBC, HCG #### [address] [place] [address] Manager Of Warehouse: Luis A Peng MD MCHC (RBC) [Mass/Vol] 32.0 g/dL Normal 28.4-34.8 [facility] Comment on above: Performed By: #### P HEP, HIVCMB #### [address] [place], [place] [id number] Manager Of Warehouse: Alvino Davila MD #### CP, CBC, HCG #### [facility] [address] [place] [address] [place] [address] Manager Of Warehouse: Luis A Peng MD MCV (RBC) [Entitic vol] 79.5 fL Low 82.6-102.9 [facility] Comment on above: Performed By: #### P HEP, HIVCMB #### [facility] [address] [place] [address] Manager Of Warehouse: Alvino Davila MD #### CP, CBC, HCG #### [facility] [address] [place], [place] [id number] Manager Of Warehouse: Luis A Peng MD NRBC Automated 0.0 per 100 WBC Normal 0.0 [facility] Comment on above: Performed By: #### P HEP, HIVCMB #### [address] [address] Manager Of Warehouse: Alvino Davila MD #### CP, CBC, HCG #### [facility] [address] [place], [place] [id number] Manager Of Warehouse: Luis A Peng MD Platelet mean volume (Bld) [Entitic vol] 11.8 fL Normal 8.1-13.5 [facility] Comment on above: Performed By: #### P HEP, HIVCMB #### [address] [address] Manager Of Warehouse: Alvino Davila MD #### CP, CBC, HCG #### [facility] [address] [place] [address] [place], [place] [id number] Manager Of Warehouse: Luis A Peng MD Platelets (Bld) [#/Vol] 238 10*3/uL Normal 138-453 [facility] Comment on above: Performed By: #### P HEP, HIVCMB #### [facility] [address] [place] [address] Manager Of Warehouse: Alvino Davila MD #### CP, CBC, HCG #### [facility] [address] [place], [place] [id number] Manager Of Warehouse: Luis A Peng MD RBC (Bld) [#/Vol] 5.55 10*6/uL High 3.95-5.11 [facility] Comment on above: Performed By: #### P HEP, HIVCMB #### [facility] [address] [place], [place] [id number] Manager Of Warehouse: Alvino Davila MD #### CP, CBC, HCG #### [facility] [address] [place] [address] Manager Of Warehouse: Luis A Peng MD WBC (Bld) [#/Vol] 8.6 10*3/uL Normal 3.5-11.3 [facility] Comment on above: Performed By: #### P HEP, HIVCMB #### [facility] [address] [place], [place] [id number] Manager Of Warehouse: Alvino Davila MD #### CP, CBC, HCG #### [facility] [address] [place] [address] Manager Of Warehouse: Luis A Peng MD Erythrocyte distribution width (RBC) [Ratio] 13.6 % 11.8 - 14.4 % [place] Hematocrit (Bld) [Volume fraction] 44.1 % 36.3 - 47.1 % [place] Hemoglobin (Bld) [Mass/Vol] 14.1 g/dL 11.9 - 15.1 g/dL [place] Interpretation and review of laboratory results Abnormal [place] MCH (RBC) [Entitic mass] 25.4 pg 25.2 - 33.5 pg [place] MCHC (RBC) [Mass/Vol] 32.0 g/dL 28.4 - 34.8 g/dL [place] MCV (RBC) [Entitic vol] 79.5 fL Low 82.6 - 102.9 fL [place] Platelet mean volume (Bld) [Entitic vol] 11.8 fL 8.1 - 13.5 fL [place] Platelets (Bld) [#/Vol] 238 10*3/uL [place] RBC (Bld) [#/Vol] 5.55 10*6/uL High 3.95 - 5.11 m/uL [place] WBC (Bld) [#/Vol] 8.6 10*3/uL [place] WBC (Bld) [#/Vol] 0.0 10*3/uL 0.0 per 100 WBC M [place], [place] Comp Metabolic Profon 2020 (cont.) Normal [facility] Comment on above: Result Comment: Aver age GFR for 20-29 years old: 116 mL/min/1.73sq m Chronic Kidney Disease: <60 mL/min/1.73sq m Kidney failure: <15 mL/min/1.73sq m eGFR calculated using average adult body mass. Additional eGFR calculator available at: http://[email or web address]/multiple_crcl_2012.htm Performed By: #### P HEP, HIVCMB #### [address] [id number] Manager Of Warehouse: Alvino Davila MD #### CP, CBC, HCG #### [facility] [address] [place] [address] [place] [address] Manager Of Warehouse: Luis A Peng MD Albumin [Mass/Vol] 4.6 g/dL Normal 3.5-5.2 [facility] Comment on above: Performed By: #### P HEP, HIVCMB #### [address] [id number] Manager Of Warehouse: Alvino Davila MD #### CP, CBC, HCG #### [facility] [address] [place] [address] [place] [address] Manager Of Warehouse: Luis A Peng MD Albumin/Globulin [Mass ratio] 1.6 {ratio} Normal 1.0-2.5 [facility] Comment on above: Performed By: #### P HEP, HIVCMB #### [address] [id number] Manager Of Warehouse: Alvino Davila MD #### CP, CBC, HCG #### [facility] [address] [place], [place] [id number] Manager Of Warehouse: Luis A Peng MD Alkaline Phos 81 U/L Normal 35-104 [facility] Comment on above: Performed By: #### P HEP, HIVCMB #### [address] [address] Manager Of Warehouse: Alvino Davila MD #### CP, CBC, HCG #### [facility] [address] [place], [place] [phone] Manager Of Warehouse: Luis A Peng MD ALT [Catalytic activity/Vol] 39 U/L High 5-33 [facility] Comment on above: Performed By: #### P HEP, HIVCMB #### [address] [address] Manager Of Warehouse: Alvino Davila MD #### CP, CBC, HCG #### [address] [place], [place] 9[address]83 Manager Of Warehouse: Luis A Peng MD Anion gap [Moles/Vol] 12 mmol/L Normal 9-17 [facility] Comment on above: Performed By: #### P HEP, HIVCMB #### [address] [address] Manager Of Warehouse: Alvino Davila MD #### CP, CBC, HCG #### [address] [place], [place] [id number] Manager Of Warehouse: Luis A Peng MD AST [Catalytic activity/Vol] 28 U/L Normal <32 [facility] Comment on above: Performed By: #### P HEP, HIVCMB #### [address] [address] Manager Of Warehouse: Alvino Davila MD #### CP, CBC, HCG #### [address] [place] [id number] Manager Of Warehouse: Luis A Peng MD Bilirubin Ql (U) 0.26 mg/dL Low 0.3-1.2 [facility] Comment on above: Performed By: #### P HEP, HIVCMB #### [address] [id number] Manager Of Warehouse: Alvino Davila MD #### CP, CBC, HCG #### [address] [place] [phone] Manager Of Warehouse: Luis A Peng MD BUN/CRE Ratio 14 Normal 9-20 [facility] Comment on above: Performed By: #### P HEP, HIVCMB #### [address] [address] Manager Of Warehouse: Alvino Davila MD #### LAURA, CBC, HCG #### [address] [place] [id number] Manager Of Warehouse: Luis A Peng MD Calcium [Mass/Vol] 10.1 mg/dL Normal 8.6-10.4 [facility] Comment on above: Performed By: #### P HEP, HIVCMB #### [address] [address] Manager Of Warehouse: Alvino Davila MD #### CP, CBC, HCG #### [address] [place] [id number] Manager Of Warehouse: Luis A Peng MD Chloride [Moles/Vol] 101 mmol/L Normal 98-107 [facility] Comment on above: Performed By: #### P HEP, HIVCMB #### [address] [address] Manager Of Warehouse: Alvino Davila MD #### CP, CBC, HCG #### [address] [place] [id number] Manager Of Warehouse: Luis A Peng MD CO2 [Moles/Vol] 26 mmol/L Normal 20-31 [facility] Comment on above: Performed By: #### P HEP, HIVCMB #### [facility] [address] [place] [address] Manager Of Warehouse: Alvino Davila MD #### CP, CBC, HCG #### [facility] [address] [place] [address] Manager Of Warehouse: Luis A Peng MD Creatinine [Mass/Vol] 0.49 mg/dL Low 0.50-0.90 [facility] Comment on above: Performed By: #### P HEP, HIVCMB #### [address] [id number] Manager Of Warehouse: Alvino Davila MD #### CP, CBC, HCG #### [facility] [address] [place] [address] Manager Of Warehouse: Luis A Peng MD GFR, Amer >60 Normal >60 [facility] Comment on above: Performed By: #### P HEP, HIVCMB #### [facility] [address] [place] [address] Manager Of Warehouse: Alvino Davila MD #### CP, CBC, HCG #### [facility] [address] [place], [place] [phone] Manager Of Warehouse: Luis A Peng MD GFR,non Amer >60 Normal >60 [facility] Comment on above: Performed By: #### P HEP, HIVCMB #### [facility] [address] [place] [address] Manager Of Warehouse: Alvino Davila MD #### CP, CBC, HCG #### [facility] [address] [place], [place] [phone] Manager Of Warehouse: Luis A Peng MD Glucose [Mass/Vol] 101 mg/dL High 70-99 [facility] Comment on above: Performed By: #### P HEP, HIVCMB #### [address] [place] [address] Manager Of Warehouse: Alvino Davila MD #### CP, CBC, HCG #### [facility] [address] [place] [address] Dr. [place], [place] [id number] Manager Of Warehouse: Luis A Peng MD Potassium [Moles/Vol] 4.2 mmol/L Normal 3.7-5.3 [facility] Comment on above: Performed By: #### P HEP, HIVCMB #### [address] [id number] Manager Of Warehouse: Alvino Davila MD #### CP, CBC, HCG #### [facility] [address] [place] [address] Dr. [place], [place] [id number] Manager Of Warehouse: Luis A Peng MD Protein [Mass/Vol] 7.5 g/dL Normal 6.4-8.3 [facility] Comment on above: Performed By: #### P HEP, HIVCMB #### [address] [address] Manager Of Warehouse: Alvino Davila MD #### CP, CBC, HCG #### [facility] [address] [place] [address] Dr. [place], [place] [phone] Manager Of Warehouse: Luis A Peng MD Sodium [Moles/Vol] 139 mmol/L Normal 135-144 [facility] Comment on above: Performed By: #### P HEP, HIVCMB #### [address] [address] Manager Of Warehouse: Alvino Davila MD #### CP, CBC, HCG #### [address] [place], [place] [phone] Manager Of Warehouse: Luis A Peng MD Staging: Normal [facility] Comment on above: Result Comment: Stag e 1: Some kidney damage normal GFR Stage 2: Mild kidney damage GFR 60-89 Stage 3: Moderate kidney damage GFR 30-59 Stage 4: Severe kidney damage GFR 15-29 Stage 5: Severe kidney damage GFR <15 ESRD - chronic treatment by dialysis or transplant Performed By: #### P HEP, HIVCMB #### [facility] [address] [place], [place] [id number] Manager Of Warehouse: Alvino Davila MD #### CP, CBC, HCG #### [facility] [address] [place] [address] Manager Of Warehouse: Luis A Peng MD Urea nitrogen [Mass/Vol] 7 mg/dL Normal 6-20 [facility] Comment on above: Performed By: #### P HEP, HIVCMB #### [facility] [address] [place], [place] [phone] Manager Of Warehouse: Alvino Davila MD #### CP, CBC, HCG #### [facility] [address] [place] [address] Manager Of Warehouse: Luis A Peng MD Comprehensive Metabolic Pane [facility] 12-06-2020 Albumin [Mass/Vol] 4.6 g/dL 3.5 - 5.2 g/dL [place] Albumin/Globulin [Mass ratio] 1.6 {ratio} [place] ALP [Catalytic activity/Vol] 81 U/L 35 - 104 U/L [place] ALT [Catalytic activity/Vol] 39 U/L High 5 - 33 U/L [place] Anion gap [Moles/Vol] 12 mmol/L 9 - 17 mmol/L [place] AST [Catalytic activity/Vol] 28 U/L <32 [place] Bilirubin Ql (U) 0.26 mg/dL Low 0.3 - 1.2 mg/dL [place], [place] Bun/Cre Ratio 14 [place], [place] Calcium [Mass/Vol] 10.1 mg/dL 8.6 - 10.4 mg/dL [place] Chloride [Moles/Vol] 101 mmol/L 98 - 107 mmol/L [place] CO2 [Moles/Vol] 26 mmol/L 20 - 31 mmol/L [place] Creatinine [Mass/Vol] 0.49 mg/dL Low 0.5 - 0.9 mg/dL [place] GFR >60 >60 mL/min [place], [place] GFR Non- >60 >60 mL/min [place] Glucose [Mass/Vol] 101 mg/dL High 70 - 99 mg/dL [place] Interpretation and review of laboratory results Abnormal [place] Potassium [Moles/Vol] 4.2 mmol/L 3.7 - 5.3 mmol/L [place] Protein [Mass/Vol] 7.5 g/dL 6.4 - 8.3 g/dL [place] Sodium [Moles/Vol] 139 mmol/L 135 - 144 mmol/L [place] Urea nitrogen [Mass/Vol] 7 mg/dL 6 - 20 mg/dL [place] HCG Qualitative, Serumon hCG Qual Negative NEGATIVE [place] Comment on above: Specimens with hCG l evels near the threshold of the test (25 mIU/mL) may give a negative or indeterminate result. In such cases, another test should be performed with a new specimen in 48-72 hours. If early is suspected clinically in this setting, correlation with quantitative serum b-hCG level is suggested. [employer] has confirmed the use of plasma for this test. This has not been cleared or approved by the U.S. Food and Drug Administration. The FDA has determined that such clearance is not necessary. HCG Screen, Bloodon 12-06-19 21 HCG Qn Negative Normal NEG [facility] Comment on above: Result Comment: Spec imens with hCG levels near the threshold of the test (25 mIU/mL) may give a negative or indeterminate result. In such cases, another test should be performed with a new specimen in 48-72 hours. If early is suspected clinically in this setting, correlation with quantitative serum b-hCG level is suggested. [employer] has confirmed the use of plasma for this test. This has not been cleared or approved by the U.S. Food and Drug Administration. The FDA has determined that such clearance is not necessary. Performed By: #### P HEP, HIVCMB #### [address] [place] [address] Manager Of Warehouse: Alvino Davila MD #### CP, CBC, HCG #### [address] [place] [address] Manager Of Warehouse: Luis A Peng MD HIV Ag/Abon 12-06-2020 HIV Ag/Ab NONREACTIVE Normal [facility] Comment on above: Result Comment: No l aboratory evidence of HIV infection. If acute HIV infection is suspected, consider testing for HIV-1 RNA. Performed By: #### P HEP, HIVCMB #### [address] [address] Manager Of Warehouse: Alvino Davila MD #### CP, CBC, HCG #### [address] [place] [address] Manager Of Warehouse: Luis A Peng MD HIV Screenon 12-06-2020 HIV Ag/Ab NONREACTIVE NONREACTIVE [place], [place] Comment on above: No laboratory eviden ce of HIV infection. If acute HIV infection is suspected, consider testing for HIV-1 RNA. Hepatitis Acute [facility] 12-06 Hep A Ab,IgM NONREACTIVE Normal NR [facility] Comment on above: Performed By: #### P HEP, HIVCMB #### [address] [address] Manager Of Warehouse: Alvino Davila MD #### CP, CBC, HCG #### [address] [place] [address] Manager Of Warehouse: Luis A Peng MD Hep B Core Ab,IgM NONREACTIVE Normal [facility] Comment on above: Performed By: #### P HEP, HIVCMB #### [address] [address] Manager Of Warehouse: Alvino Davila MD #### CP, CBC, HCG #### [facility] [address] [place], [place] [phone] Manager Of Warehouse: Luis A Peng MD Hep B Surf Ag NONREACTIVE Normal [facility] Comment on above: Performed By: #### P HEP, HIVCMB #### [facility] [address] [place], [place] [phone] Manager Of Warehouse: Alvino Davila MD #### CP, CBC, HCG #### [facility] [address] [place], [place] [phone] Manager Of Warehouse: Luis A Peng MD Hep C Ab REACTIVE Abnormal [facility] Comment on above: Result Comment: The hepatitis [...] Performed By: #### P HEP, HIVCMB #### [address] [address] Manager Of Warehouse: Alvino Davila MD #### CP, CBC, HCG #### [address] [place] [address] Manager Of Warehouse: Luis A Peng MD Hepatitis Panel, [facility] HAV IgM IA Qn (S) NONREACTIVE NONREACTIVE [facility], [place] Hep B Core Ab, IgM NONREACTIVE NONREACTIVE [facility], [place] Hepatitis B Surface Ag NONREACTIVE NONREACTIVE [facility], [place] Hepatitis C Ab REACTIVE Abnormal NONREACTIVE [place], [place] Comment on above: The hepatitis C [...] Interpretation and review of laboratory results Abnormal [place], [place] Metabolic Panelon 12-06-2020 GFR/1.73 sq M predicted among non-blacks MDRD (S/P/Bld) [Vol rate/Area] [place], [place] Comment on above: Stage 1: Some [...] body mass. Additional eGFR calculator available at: http://www.Frograms/multiple_crcl_2012.htm CBCon 05-30-2020 Erythrocyte distribution width (RBC) [Ratio] 12.7 % Normal 11.8-14.4 [facility] Comment on above: Performed By: #### C P, HCG, CBC #### [facility] [address] [place] [address] [place] [address] Manager Of Warehouse: Luis A Peng MD #### HIVCMB, PHEP #### [address] [address] Manager Of Warehouse: Alvino Davila MD Hematocrit (Bld) [Volume fraction] 39.2 % Normal 36.3-47.1 [facility] Comment on above: Performed By: #### C P, HCG, CBC #### [facility] [address] [place] [address] Manager Of Warehouse: Luis A Peng MD #### HIVCMB, PHEP #### [address] [address] Manager Of Warehouse: Alvino Davila MD Hemoglobin (Bld) [Mass/Vol] 12.3 g/dL Normal 11.9-15.1 [facility] Comment on above: Performed By: #### C P, HCG, CBC #### [address] [place] [address] Manager Of Warehouse: Luis A Peng MD #### HIVCMB, PHEP #### [address] [phone] Manager Of Warehouse: Alvino Davila MD MCH (RBC) [Entitic mass] 26.2 pg Normal 25.2-33.5 [facility] Comment on above: Performed By: #### C P, HCG, CBC #### [address] [place] [phone] Manager Of Warehouse: Luis A Peng MD #### HIVCMB, PHEP #### [address] [id number] Manager Of Warehouse: Alvino Davila MD MCHC (RBC) [Mass/Vol] 31.4 g/dL Normal 28.4-34.8 [facility] Comment on above: Performed By: #### C P, HCG, CBC #### [address] [place] [phone] Manager Of Warehouse: Luis A Peng MD #### HIVCMB, PHEP #### [address] [phone] Manager Of Warehouse: Alvino Davila MD MCV (RBC) [Entitic vol] 83.6 fL Normal 82.6-102.9 [facility] Comment on above: Performed By: #### C P, HCG, CBC #### [address] [place] [address] Manager Of Warehouse: Luis A Peng MD #### HIVCMB, PHEP #### [address] [phone] Manager Of Warehouse: Alvino Davila MD NRBC Automated 0.0 per 100 WBC Normal 0.0 [facility] Comment on above: Performed By: #### C P, HCG, CBC #### [address] [place] [phone] Manager Of Warehouse: Luis A Peng MD #### HIVCMB, PHEP #### [address] [phone] Manager Of Warehouse: Alvino Davila MD Platelet mean volume (Bld) [Entitic vol] 10.9 fL Normal 8.1-13.5 [facility] Comment on above: Performed By: #### C P, HCG, CBC #### [address] [place] [phone] Manager Of Warehouse: Luis A Peng MD #### HIVCMB, PHEP #### [place] [phone] Manager Of Warehouse: Alvino Davila MD Platelets (Bld) [#/Vol] 277 10*3/uL Normal 138-453 [facility] Comment on above: Performed By: #### C P, HCG, CBC #### [address] [place] [phone] Manager Of Warehouse: Luis A Peng MD #### HIVCMB, PHEP #### [place] [address] Manager Of Warehouse: Alvino Davila MD RBC (Bld) [#/Vol] 4.69 10*6/uL Normal 3.95-5.11 [facility] Comment on above: Performed By: #### C P, HCG, CBC #### [facility] [address] [place] [address] [place] [address] Manager Of Warehouse: Luis A Peng MD #### HIVCMB, PHEP #### [address] [phone] Manager Of Warehouse: Alvino Davila MD WBC (Bld) [#/Vol] 5.5 10*3/uL Normal 3.5-11.3 [facility] Comment on above: Performed By: #### C P, HCG, CBC #### [facility] [address] [place] [address] Manager Of Warehouse: Luis A Peng MD #### HIVCMB, PHEP #### [facility] [address] [place], [place] [phone] Manager Of Warehouse: Alvino Davila MD Erythrocyte distribution width (RBC) [Ratio] 12.7 % 11.8 - 14.4 % [place], [place] Hematocrit (Bld) [Volume fraction] 39.2 % 36.3 - 47.1 % [place] Hemoglobin (Bld) [Mass/Vol] 12.3 g/dL 11.9 - 15.1 g/dL [place] MCH (RBC) [Entitic mass] 26.2 pg 25.2 - 33.5 pg [place] MCHC (RBC) [Mass/Vol] 31.4 g/dL 28.4 - 34.8 g/dL [place] MCV (RBC) [Entitic vol] 83.6 fL 82.6 - 102.9 fL [place] Platelet mean volume (Bld) [Entitic vol] 10.9 fL 8.1 - 13.5 fL [place] Platelets (Bld) [#/Vol] 277 10*3/uL [place] RBC (Bld) [#/Vol] 4.69 10*6/uL 3.95 - 5.11 m/uL [place] WBC (Bld) [#/Vol] 5.5 10*3/uL [place] WBC (Bld) [#/Vol] 0.0 10*3/uL 0.0 per 100 WBC M [place], [place] Comp Metabolic Profon 2019 (cont.) Normal [facility] Comment on above: Result Comment: Aver age GFR for 20-29 years old: 116 mL/min/1.73sq m Chronic Kidney Disease: <60 mL/min/1.73sq m Kidney failure: <15 mL/min/1.73sq m eGFR calculated using average adult body mass. Additional eGFR calculator available at: http://www.Frograms/multiple_crcl_2012.htm Performed By: #### C P, HCG, CBC #### [address] [place] [phone] Manager Of Warehouse: Luis A Peng MD #### HIVCMB, PHEP #### [place] [address] [place] [address] Manager Of Warehouse: Alvino Davila MD Albumin [Mass/Vol] 3.4 g/dL Low 3.5-5.2 [facility] Comment on above: Performed By: #### C P, HCG, CBC #### [address] [place] [phone] Manager Of Warehouse: Luis A Peng MD #### HIVCMB, PHEP #### [place] [address] [place] [address] Manager Of Warehouse: Alvino Davila MD Albumin/Globulin [Mass ratio] 1.1 {ratio} Normal 1.0-2.5 [facility] Comment on above: Performed By: #### C P, HCG, CBC #### [address] [place] [phone] Manager Of Warehouse: Luis A Peng MD #### HIVCMB, PHEP #### [place] [address] [place] [address] Manager Of Warehouse: Alvino Davila MD Alkaline Phos 130 U/L High 35-104 [facility] Comment on above: Performed By: #### C P, HCG, CBC #### [address] [place] [address] Manager Of Warehouse: Luis A Peng MD #### HIVCMB, PHEP #### [address] [phone] Manager Of Warehouse: Alvino Davila MD ALT [Catalytic activity/Vol] 33 U/L Normal 5-33 [facility] Comment on above: Performed By: #### C P, HCG, CBC #### [facility] [address] [place] [phone] Manager Of Warehouse: Luis A Peng MD #### HIVCMB, PHEP #### [address] [phone] Manager Of Warehouse: Alvino Davila MD Anion gap [Moles/Vol] 7 mmol/L Low 9-17 [facility] Comment on above: Performed By: #### C P, HCG, CBC #### [facility] [address] [place] [phone] Manager Of Warehouse: Luis A Peng MD #### HIVCMB, PHEP #### [address] [phone] Manager Of Warehouse: Alvino Davila MD AST [Catalytic activity/Vol] 35 U/L High <32 [facility] Comment on above: Performed By: #### C P, HCG, CBC #### [facility] [address] [place] [phone] Manager Of Warehouse: Luis A Peng MD #### HIVCMB, PHEP #### [address] [phone] Manager Of Warehouse: Alvino Davila MD Bilirubin Ql (U) 0.16 mg/dL Low 0.3-1.2 [facility] Comment on above: Performed By: #### C P, HCG, CBC #### [facility] [address] [place], [place] [phone] Manager Of Warehouse: Luis A Peng MD #### HIVCMB, PHEP #### [place] [address] [place] [address] Manager Of Warehouse: Alvino Davila MD BUN/CRE Ratio 14 Normal 9-20 [facility] Comment on above: Performed By: #### C P, HCG, CBC #### [facility] [address] [place], [place] [phone] Manager Of Warehouse: Luis A Peng MD #### HIVCMB, PHEP #### [address] [address] Manager Of Warehouse: Alvino Davila MD Calcium [Mass/Vol] 9.2 mg/dL Normal 8.6-10.4 [facility] Comment on above: Performed By: #### C P, HCG, CBC #### [facility] [address] [place] [address] Dr. [place], [place] [phone] Manager Of Warehouse: Luis A Peng MD #### HIVCMB, PHEP #### [address] [address] Manager Of Warehouse: Alvino Davila MD Chloride [Moles/Vol] 99 mmol/L Normal 98-107 [facility] Comment on above: Performed By: #### C P, HCG, CBC #### [facility] [address] [place] [address] Dr. [place], [place] [phone] Manager Of Warehouse: Luis A Peng MD #### HIVCMB, PHEP #### [address] [address] Manager Of Warehouse: Alvino Davila MD CO2 [Moles/Vol] 29 mmol/L Normal 20-31 [facility] Comment on above: Performed By: #### C P, HCG, CBC #### [facility] [address] [place], [place] [phone] Manager Of Warehouse: Luis A ePng MD #### HIVCMB, PHEP #### [address] [address] Manager Of Warehouse: Alvino Davila MD Creatinine [Mass/Vol] 0.63 mg/dL Normal 0.50-0.90 [facility] Comment on above: Performed By: #### C P, HCG, CBC #### [facility] [address] [place], [place] [phone] Manager Of Warehouse: Luis A Peng MD #### HIVCMB, PHEP #### [facility] [address] [place], [place] [phone] Manager Of Warehouse: Alvino Davila MD GFR, Amer >60 Normal >60 [facility] Comment on above: Performed By: #### C P, HCG, CBC #### [facility] [address] [place] [address] [place], [place] [phone] Manager Of Warehouse: Luis A Peng MD #### HIVCMB, PHEP #### [address] [phone] Manager Of Warehouse: Alvino Davila MD GFR,non Amer >60 Normal >60 [facility] Comment on above: Performed By: #### C P, HCG, CBC #### [facility] [address] [place] [address] [place], [place] [phone] Manager Of Warehouse: Luis A Peng MD #### HIVCMB, PHEP #### [facility] [address] [place] [phone] Manager Of Warehouse: Alvino Davila MD Glucose [Mass/Vol] 95 mg/dL Normal 70-99 [facility] Comment on above: Performed By: #### C P, HCG, CBC #### [facility] [address] [place], [place] [phone] Manager Of Warehouse: Luis A Peng MD #### HIVCMB, PHEP #### [facility] [address] [place] [address] Manager Of Warehouse: Alvino Davila MD Potassium [Moles/Vol] 4.3 mmol/L Normal 3.7-5.3 [facility] Comment on above: Performed By: #### C P, HCG, CBC #### [facility] [address] [place] [address] [place] [address] Manager Of Warehouse: Luis A Peng MD #### HIVCMB, PHEP #### [address] [phone] Manager Of Warehouse: Alvino Davila MD Protein [Mass/Vol] 6.5 g/dL Normal 6.4-8.3 [facility] Comment on above: Performed By: #### C P, HCG, CBC #### [address] [place] [address] Manager Of Warehouse: Luis A Peng MD #### HIVCMB, PHEP #### [address] [phone] Manager Of Warehouse: Alvino Davila MD Sodium [Moles/Vol] 135 mmol/L Normal 135-144 [facility] Comment on above: Performed By: #### C P, HCG, CBC #### [address] [place] [address] Manager Of Warehouse: Luis A Peng MD #### HIVCMB, PHEP #### [address] [phone] Manager Of Warehouse: Alvino Davila MD Staging: Normal [facility] Comment on above: Result Comment: Stag e 1: Some kidney damage normal GFR Stage 2: Mild kidney damage GFR 60-89 Stage 3: Moderate kidney damage GFR 30-59 Stage 4: Severe kidney damage GFR 15-29 Stage 5: Severe kidney damage GFR <15 ESRD - chronic treatment by dialysis or transplant Performed By: #### C P, HCG, CBC #### [address] [place] [address] Manager Of Warehouse: Luis A Peng MD #### HIVCMB, PHEP #### [facility] [address] [place], [place] [phone] Manager Of Warehouse: Alvino Davila MD Urea nitrogen [Mass/Vol] 9 mg/dL Normal 6-20 [facility] Comment on above: Performed By: #### C P, HCG, CBC #### [facility] [address] [place] [address] Manager Of Warehouse: Luis A Peng MD #### HIVCMB, PHEP #### [facility] [address] [place] [address] Manager Of Warehouse: Alvino Davila MD Comprehensive Metabolic Pane [facility] 05-30-2020 Albumin [Mass/Vol] 3.4 g/dL Low 3.5 - 5.2 g/dL [place], [place] Albumin/Globulin [Mass ratio] 1.1 {ratio} [place] ALP [Catalytic activity/Vol] 130 U/L High 35 - 104 U/L [place] ALT [Catalytic activity/Vol] 33 U/L 5 - 33 U/L [place] Anion gap [Moles/Vol] 7 mmol/L Low 9 - 17 mmol/L [place] AST [Catalytic activity/Vol] 35 U/L High <32 [place] Bilirubin Ql (U) 0.16 mg/dL Low 0.3 - 1.2 mg/dL [place], [place] Bun/Cre Ratio 14 [place], [place] Calcium [Mass/Vol] 9.2 mg/dL 8.6 - 10.4 mg/dL [place], [place] Chloride [Moles/Vol] 99 mmol/L 98 - 107 mmol/L [place] CO2 [Moles/Vol] 29 mmol/L 20 - 31 mmol/L [place] Creatinine [Mass/Vol] 0.63 mg/dL 0.5 - 0.9 mg/dL [place] GFR >60 >60 mL/min [place], [place] GFR Non- >60 >60 mL/min [place] Glucose [Mass/Vol] 95 mg/dL 70 - 99 mg/dL [place], [place] Interpretation and review of laboratory results Abnormal [place] Potassium [Moles/Vol] 4.3 mmol/L 3.7 - 5.3 mmol/L [place] Protein [Mass/Vol] 6.5 g/dL 6.4 - 8.3 g/dL [place] Sodium [Moles/Vol] 135 mmol/L 135 - 144 mmol/L [place] Urea nitrogen [Mass/Vol] 9 mg/dL 6 - 20 mg/dL [place] HCG Qualitative, Serumon hCG Qual Negative NEGATIVE [place] Comment on above: Specimens with hCG l evels near the threshold of the test (25 mIU/mL) may give a negative or indeterminate result. In such cases, another test should be performed with a new specimen in 48-72 hours. If early is suspected clinically in this setting, correlation with quantitative serum b-hCG level is suggested. [facility] has confirmed the use of plasma for this test. This has not been cleared or approved by the U.S. Food and Drug Administration. The FDA has determined that such clearance is not necessary. HCG Screen, Bloodon 05-30-20 20 HCG Qn Negative Normal NEG [facility] Comment on above: Result Comment: Spec imens with hCG levels near the threshold of the test (25 mIU/mL) may give a negative or indeterminate result. In such cases, another test should be performed with a new specimen in 48-72 hours. If early is suspected clinically in this setting, correlation with quantitative serum b-hCG level is suggested. [facility] has confirmed the use of plasma for this test. This has not been cleared or approved by the U.S. Food and Drug Administration. The FDA has determined that such clearance is not necessary. Performed By: #### C P, HCG, CBC #### [facility] [address] [place] [address] Manager Of Warehouse: Luis A Peng MD #### HIVCMB, PHEP #### [facility] [address] [place] [address] Manager Of Warehouse: Alvino Davila MD HIV Ag/Abon 05-30-2020 HIV Ag/Ab NONREACTIVE Normal [facility] Comment on above: Result Comment: No l aboratory evidence of HIV infection. If acute HIV infection is suspected, consider testing for HIV-1 RNA. Performed By: #### C P, HCG, CBC #### [facility] [address] [place], [place] [phone] Manager Of Warehouse: Luis A Peng MD #### HIVCMB, PHEP #### [facility] [address] [place] [address] Manager Of Warehouse: Alvino Davila MD HIV Screenon 05-30-2020 HIV Ag/Ab NONREACTIVE NONREACTIVE [place] Comment on above: No laboratory eviden ce of HIV infection. If acute HIV infection is suspected, consider testing for HIV-1 RNA. Hepatitis Acute [facility] 05-30 Hep A Ab,IgM NONREACTIVE Normal [facility] Comment on above: Performed By: #### C P, HCG, CBC #### [address] [place], [place] [phone] Manager Of Warehouse: Luis A Peng MD #### HIVCMB, PHEP #### [place] [address] [place] [address] Manager Of Warehouse: Alvino Davila MD Hep B Core Ab,IgM NONREACTIVE Normal [facility] Comment on above: Performed By: #### C P, HCG, CBC #### [facility] [address] [place], [place] [phone] Manager Of Warehouse: Luis A Peng MD #### HIVCMB, PHEP #### [facility] [address] [place] [address] Manager Of Warehouse: Alivno Davila MD Hep B Surf Ag NONREACTIVE Normal [facility] Comment on above: Performed By: #### C P, HCG, CBC #### [facility] [address] [place], [place] [phone] Manager Of Warehouse: Luis A Peng MD #### HIVCMB, PHEP #### [facility] [address] [place] [address] Manager Of Warehouse: Alvino Davila MD Hep C Ab NONREACTIVE Normal NR [facility] Comment on above: Result Comment: [...] By: #### C P, HCG, CBC #### [facility] [address] [place] [address] [place], [place] [phone] Manager Of Warehouse: Luis A Peng MD #### HIVCMB, PHEP #### [place] [address] [place], [place] [phone] Manager Of Warehouse: Alvino Davila MD Hepatitis Panel, Acuteon HAV IgM IA Qn (S) NONREACTIVE NONREACTIVE [place] Hep B Core Ab, IgM NONREACTIVE NONREACTIVE [place], [place] Hepatitis B Surface Ag NONREACTIVE NONREACTIVE [place] Hepatitis C Ab NONREACTIVE NONREACTIVE [place] Comment on above: The hepatitis C [...] predicted among non-blacks MDRD (S/P/Bld) [Vol rate/Area] [place], [place] Comment on above: Stage 1: Some [...] body mass. Additional eGFR calculator available at: http://www.Postachio.ClearMyMail/multiple_crcl_2012.htm CBCon 01-01-2020 Erythrocyte distribution width (RBC) [Ratio] 12.5 % Normal 11.8-14.4 [facility] Comment on above: Performed By: #### P HEP, HIVCMB #### [address] [phone] Manager Of Warehouse: Alvino Davila MD #### CP, CBC, HCG #### [address] [place] [address] Manager Of Warehouse: Luis A Peng MD Hematocrit (Bld) [Volume fraction] 40.2 % Normal 36.3-47.1 [facility] Comment on above: Performed By: #### P HEP, HIVCMB #### [address] [address] Manager Of Warehouse: Alvino Davila MD #### CP, CBC, HCG #### [address] [place] [address] Manager Of Warehouse: Luis A Peng MD Hemoglobin (Bld) [Mass/Vol] 13.1 g/dL Normal 11.9-15.1 [facility] Comment on above: Performed By: #### P HEP, HIVCMB #### [address] [address] Manager Of Warehouse: Alvino Davila MD #### CP, CBC, HCG #### [address] [place] [address] Manager Of Warehouse: Luis A Peng MD MCH (RBC) [Entitic mass] 28.4 pg Normal 25.2-33.5 [facility] Comment on above: Performed By: #### P HEP, HIVCMB #### [address] [phone] Manager Of Warehouse: Alvino Davila MD #### CP, CBC, HCG #### [address] [place] [phone] Manager Of Warehouse: Luis A Peng MD MCHC (RBC) [Mass/Vol] 32.6 g/dL Normal 28.4-34.8 [facility] Comment on above: Performed By: #### P HEP, HIVCMB #### [address] [address] Manager Of Warehouse: Alvino Davila MD #### CP, CBC, HCG #### [address] [place] [phone] Manager Of Warehouse: Luis A Peng MD MCV (RBC) [Entitic vol] 87.2 fL Normal 82.6-102.9 [facility] Comment on above: Performed By: #### P HEP, HIVCMB #### [place] [address] Manager Of Warehouse: Alvino Davila MD #### CP, CBC, HCG #### [address] [place] [phone] Manager Of Warehouse: Luis A Peng MD NRBC Automated 0.0 per 100 WBC Normal 0.0 [facility] Comment on above: Performed By: #### P HEP, HIVCMB #### [place] [address] Manager Of Warehouse: Alvino Davila MD #### CP, CBC, HCG #### [address] [place] [address] Manager Of Warehouse: Luis A Peng MD Platelet mean volume (Bld) [Entitic vol] 11.2 fL Normal 8.1-13.5 [facility] Comment on above: Performed By: #### P HEP, HIVCMB #### [place] [address] [place] [address] Manager Of Warehouse: Alvino Davila MD #### CP, CBC, HCG #### [address] [place] [phone] Manager Of Warehouse: Luis A Peng MD Platelets (Bld) [#/Vol] 241 10*3/uL Normal 138-453 [facility] Comment on above: Performed By: #### P HEP, HIVCMB #### [address] [phone] Manager Of Warehouse: Alvino Davila MD #### CP, CBC, HCG #### [address] [place] [phone] ( Manager Of Warehouse: Luis A Peng MD RBC (Bld) [#/Vol] 4.61 10*6/uL Normal 3.95-5.11 [facility] Comment on above: Performed By: #### P HEP, HIVCMB #### [address] [address] Manager Of Warehouse: Alvino Davila MD #### CP, CBC, HCG #### [address] [place] [phone] Manager Of Warehouse: Luis A Peng MD WBC (Bld) [#/Vol] 9.0 10*3/uL Normal 3.5-11.3 [facility] Comment on above: Performed By: #### P HEP, HIVCMB #### [address] [phone] Manager Of Warehouse: Alvino Davila MD #### CP, CBC, HCG #### [address] [place] [phone] Manager Of Warehouse: Luis A Peng MD Erythrocyte distribution width (RBC) [Ratio] 12.5 % 11.8 - 14.4 % [place] Hematocrit (Bld) [Volume fraction] 40.2 % 36.3 - 47.1 % [place] Hemoglobin (Bld) [Mass/Vol] 13.1 g/dL 11.9 - 15.1 g/dL [place] MCH (RBC) [Entitic mass] 28.4 pg 25.2 - 33.5 pg [place] MCHC (RBC) [Mass/Vol] 32.6 g/dL 28.4 - 34.8 g/dL [place] MCV (RBC) [Entitic vol] 87.2 fL 82.6 - 102.9 fL [place] Platelet mean volume (Bld) [Entitic vol] 11.2 fL 8.1 - 13.5 fL [place] Platelets (Bld) [#/Vol] 241 10*3/uL [place] RBC (Bld) [#/Vol] 4.61 10*6/uL 3.95 - 5.11 m/uL [place], [place] WBC (Bld) [#/Vol] 0.0 10*3/uL 0.0 per 100 WBC [place], [place] WBC (Bld) [#/Vol] 9.0 10*3/uL [place], [place] Comp Metabolic Profon 2019 (cont.) Normal [facility] Comment on above: Result Comment: Aver age GFR for 20-29 years old: 116 mL/min/1.73sq m Chronic Kidney Disease: <60 mL/min/1.73sq m Kidney failure: <15 mL/min/1.73sq m eGFR calculated using average adult body mass. Additional eGFR calculator available at: http://www.Postachio.ClearMyMail/multiple_crcl_2011.htm Performed By: #### P HEP, HIVCMB #### IMANIN Outside.in [facility] [place] [address] Manager Of Warehouse: Alvino Davila MD #### CP, CBC, HCG #### [facility] [address] [place], [place] [id number] Manager Of Warehouse: Luis A Peng MD Albumin [Mass/Vol] 4.2 g/dL Normal 3.5-5.2 [facility] Comment on above: Performed By: #### P HEP, HIVCMB #### [address] [address] Manager Of Warehouse: Alvino Davila MD #### CP, CBC, HCG #### [facility] [address] [place], [place] [id number] Manager Of Warehouse: Luis A Peng MD Albumin/Globulin [Mass ratio] 1.7 {ratio} Normal 1.0-2.5 [facility] Comment on above: Performed By: #### P HEP, HIVCMB #### [address] [address] Manager Of Warehouse: Alvino Davila MD #### CP, CBC, HCG #### [address] [place], [place] [id number] Manager Of Warehouse: Luis A Peng MD Alkaline Phos 69 U/L Normal 35-104 [facility] Comment on above: Performed By: #### P HEP, HIVCMB #### [address] [address] Manager Of Warehouse: Alvino Davila MD #### CP, CBC, HCG #### [facility] [address] [place] [address] Manager Of Warehouse: Luis A Peng MD ALT [Catalytic activity/Vol] 78 U/L High 5-33 [facility] Comment on above: Performed By: #### P HEP, HIVCMB #### [address] [address] Manager Of Warehouse: Alvino Davila MD #### CP, CBC, HCG #### [facility] [address] [place], [place] [id number] Manager Of Warehouse: Luis A Peng MD Anion gap [Moles/Vol] 9 mmol/L Normal 9-17 [facility] Comment on above: Performed By: #### P HEP, HIVCMB #### [address] [address] Manager Of Warehouse: Alvino Davila MD #### CP, CBC, HCG #### [facility] [address] [place], [place] 737[address]83 Manager Of Warehouse: Luis A Peng MD AST [Catalytic activity/Vol] 44 U/L High <32 [facility] Comment on above: Performed By: #### P HEP, HIVCMB #### [address] [address] Manager Of Warehouse: Alvino Davila MD #### CP, CBC, HCG #### [address] [place], [place] [id number] Manager Of Warehouse: Luis A Peng MD Bilirubin Ql (U) 0.15 mg/dL Low 0.3-1.2 [facility] Comment on above: Performed By: #### P HEP, HIVCMB #### [address] [address] Manager Of Warehouse: Alvino Davila MD #### CP, CBC, HCG #### [address] [place], [place] [id number] Manager Of Warehouse: Luis A Peng MD BUN/CRE Ratio 20 Normal 9-20 [facility] Comment on above: Performed By: #### P HEP, HIVCMB #### [address] [address] Manager Of Warehouse: Alvino Davila MD #### CP, CBC, HCG #### [address] [place] [address] Manager Of Warehouse: Luis A Peng MD Calcium [Mass/Vol] 9.4 mg/dL Normal 8.6-10.4 [facility] Comment on above: Performed By: #### P HEP, HIVCMB #### [address] [id number] Manager Of Warehouse: Alvino Davila MD #### CP, CBC, HCG #### [address] [place] [address] Manager Of Warehouse: Luis A Peng MD Chloride [Moles/Vol] 97 mmol/L Low 98-107 [facility] Comment on above: Performed By: #### P HEP, HIVCMB #### [address] [id number] Manager Of Warehouse: Alvino Davila MD #### CP, CBC, HCG #### [address] [place] [id number] Manager Of Warehouse: Luis A Peng MD CO2 [Moles/Vol] 28 mmol/L Normal 20-31 [facility] Comment on above: Performed By: #### P HEP, HIVCMB #### [address] [id number] Manager Of Warehouse: Alvino Davila MD #### CP, CBC, HCG #### [address] [place] [id number] Manager Of Warehouse: Luis A Peng MD Creatinine [Mass/Vol] 0.55 mg/dL Normal 0.50-0.90 [facility] Comment on above: Performed By: #### P HEP, HIVCMB #### [address] [id number] Manager Of Warehouse: Alvino Davila MD #### CP, CBC, HCG #### [address] [place] [address] Manager Of Warehouse: Luis A Peng MD GFR, Amer >60 Normal >60 [facility] Comment on above: Performed By: #### P HEP, HIVCMB #### [facility] [address] [place] [address] Manager Of Warehouse: Alvino Davila MD #### CP, CBC, HCG #### [facility] [address] [place], [place] [phone] Manager Of Warehouse: Luis A Peng MD GFR,non Amer >60 Normal >60 [facility] Comment on above: Performed By: #### P HEP, HIVCMB #### [address] [address] Manager Of Warehouse: Alvino Davila MD #### CP, CBC, HCG #### [facility] [address] [place] [address] [place] [address] Manager Of Warehouse: Luis A Peng MD Glucose [Mass/Vol] 85 mg/dL Normal 70-99 [facility] Comment on above: Performed By: #### P HEP, HIVCMB #### [address] [address] Manager Of Warehouse: Alvino Davila MD #### CP, CBC, HCG #### [facility] [address] [place] [address] Dr. [place] [id number] Manager Of Warehouse: Luis A Peng MD Potassium [Moles/Vol] 4.3 mmol/L Normal 3.7-5.3 [facility] Comment on above: Performed By: #### P HEP, HIVCMB #### [address] [address] Manager Of Warehouse: Alvino Davila MD #### CP, CBC, HCG #### [facility] [address] [place], [place] [phone] Manager Of Warehouse: Luis A Peng MD Protein [Mass/Vol] 6.7 g/dL Normal 6.4-8.3 [facility] Comment on above: Performed By: #### P HEP, HIVCMB #### [facility] [address] [place] [address] Manager Of Warehouse: Alvino Davila MD #### CP, CBC, HCG #### [address] [place], [place] [id number] Manager Of Warehouse: Luis A Peng MD Sodium [Moles/Vol] 134 mmol/L Low 135-144 [facility] Comment on above: Performed By: #### P HEP, HIVCMB #### [address] [address] Manager Of Warehouse: Alvino Davila MD #### CP, CBC, HCG #### [address] [place] [address] Manager Of Warehouse: Luis A Peng MD Staging: Normal [facility] Comment on above: Result Comment: Stag e 1: Some kidney damage normal GFR Stage 2: Mild kidney damage GFR 60-89 Stage 3: Moderate kidney damage GFR 30-59 Stage 4: Severe kidney damage GFR 15-29 Stage 5: Severe kidney damage GFR <15 ESRD - chronic treatment by dialysis or transplant Performed By: #### P HEP, HIVCMB #### [address] [address] Manager Of Warehouse: Alvino Davila MD #### CP, CBC, HCG #### [address] [place], [place] [phone] Manager Of Warehouse: Luis A Peng MD Urea nitrogen [Mass/Vol] 11 mg/dL Normal 6-20 [facility] Comment on above: Performed By: #### P HEP, HIVCMB #### [address] [address] Manager Of Warehouse: Alvino Davila MD #### CP, CBC, HCG #### [address] [place] [address] Manager Of Warehouse: Luis A Peng MD Comprehensive Metabolic Pane liu 01-01-2020 Albumin [Mass/Vol] 4.2 g/dL 3.5 - 5.2 g/dL [place], [place] Albumin/Globulin [Mass ratio] 1.7 {ratio} [place], [place] ALP [Catalytic activity/Vol] 69 U/L 35 - 104 U/L [place] ALT [Catalytic activity/Vol] 78 U/L High 5 - 33 U/L [place] Anion gap [Moles/Vol] 9 mmol/L 9 - 17 mmol/L [place] AST [Catalytic activity/Vol] 44 U/L High <32 [place], [place] Bilirubin Ql (U) 0.15 mg/dL Low 0.3 - 1.2 mg/dL [place], [place] Bun/Cre Ratio 20 [place], [place] Calcium [Mass/Vol] 9.4 mg/dL 8.6 - 10.4 mg/dL [place] Chloride [Moles/Vol] 97 mmol/L Low 98 - 107 mmol/L [place] CO2 [Moles/Vol] 28 mmol/L 20 - 31 mmol/L [place] Creatinine [Mass/Vol] 0.55 mg/dL 0.5 - 0.9 mg/dL [place] GFR >60 >60 mL/min [place], [place] GFR Non- >60 >60 mL/min [place] Glucose [Mass/Vol] 85 mg/dL 70 - 99 mg/dL [place], [place] Interpretation and review of laboratory results Abnormal [place] Potassium [Moles/Vol] 4.3 mmol/L 3.7 - 5.3 mmol/L [place] Protein [Mass/Vol] 6.7 g/dL 6.4 - 8.3 g/dL [place] Sodium [Moles/Vol] 134 mmol/L Low 135 - 144 mmol/L [place] Urea nitrogen [Mass/Vol] 11 mg/dL 6 - 20 mg/dL [place] HCG Qualitative, Serumon 03- 02-2020 hCG Qual Negative NEGATIVE [place] Comment on above: Specimens with hCG l evels near the threshold of the test (25 mIU/mL) may give a negative or indeterminate result. In such cases, another test should be performed with a new specimen in 48-72 hours. If early is suspected clinically in this setting, correlation with quantitative serum b-hCG level is suggested. [facility] has confirmed the use of plasma for this test. This has not been cleared or approved by the U.S. Food and Drug Administration. The FDA has determined that such clearance is not necessary. HCG Screen, Bloodon 01-01-20 20 HCG Qn Negative Normal NEG [facility] Comment on above: Result Comment: Spec imens with hCG levels near the threshold of the test (25 mIU/mL) may give a negative or indeterminate result. In such cases, another test should be performed with a new specimen in 48-72 hours. If early is suspected clinically in this setting, correlation with quantitative serum b-hCG level is suggested. [facility] has confirmed the use of plasma for this test. This has not been cleared or approved by the U.S. Food and Drug Administration. The FDA has determined that such clearance is not necessary. Performed By: #### P HEP, HIVCMB #### [place] [address] [place], [place] [id number] Manager Of Warehouse: Alvino Davila MD #### CP, CBC, HCG #### [address] [place] [address] Manager Of Warehouse: Luis A Peng MD HIV Ag/Abon 01-01-2020 HIV Ag/Ab NONREACTIVE Normal NR [facility] Comment on above: Result Comment: No l aboratory evidence of HIV infection. If acute HIV infection is suspected, consider testing for HIV-1 RNA. Performed By: #### P HEP, HIVCMB #### [facility] [address] [place] [address] Manager Of Warehouse: Alvino Davila MD #### CP, CBC, HCG #### [facility] [address] [place] [address] [place] [address] Manager Of Warehouse: Luis A Peng MD HIV Screenon 01-01-2020 HIV Ag/Ab NONREACTIVE NONREACTIVE [place] Comment on above: No laboratory eviden ce of HIV infection. If acute HIV infection is suspected, consider testing for HIV-1 RNA. Hepatitis Acute [facility] 12-31 Hep A Ab,IgM NONREACTIVE Normal NR [facility] Comment on above: Performed By: #### P HEP, HIVCMB #### [address] [address] Manager Of Warehouse: Alvino Davila MD #### CP, CBC, HCG #### [address] [place] [address] Manager Of Warehouse: Luis A Peng MD Hep B Core Ab,IgM NONREACTIVE Normal [facility] Comment on above: Performed By: #### P HEP, HIVCMB #### [address] [address] Manager Of Warehouse: Alvino Davila MD #### CP, CBC, HCG #### [facility] [address] [place] [address] [place] [address] Manager Of Warehouse: Luis A Peng MD Hep B Surf Ag NONREACTIVE Normal [facility] Comment on above: Performed By: #### P HEP, HIVCMB #### [address] [address] Manager Of Warehouse: Alvino Davila MD #### CP, CBC, HCG #### [facility] [address] [place] [address] [place] [address] Manager Of Warehouse: Luis A Peng MD Hep C Ab NONREACTIVE [facility] Comment on above: Result Comment: [...] Performed By: #### P HEP, HIVCMB #### [facility] [address] [place] [address] Manager Of Warehouse: Alvino Davila MD #### CP, CBC, HCG #### [facility] [address] [place] [address] Manager Of Warehouse: Luis A Peng MD Hepatitis Panel, Acuteon HAV IgM IA Qn (S) NONREACTIVE NONREACTIVE [place] Hep B Core Ab, IgM NONREACTIVE NONREACTIVE [place], [place] Hepatitis B Surface Ag NONREACTIVE NONREACTIVE [place] Hepatitis C Ab NONREACTIVE NONREACTIVE [place] Comment on above: The hepatitis C [...] predicted among non-blacks MDRD (S/P/Bld) [Vol rate/Area] [place] Comment on above: Stage 1: Some [...] body mass. Additional eGFR calculator available at: http://www.Postachio.ClearMyMail/multiple_crcl_2012.htm Encounters Encounter Date Encounter Type Care Provider [...] 03-27-2021 End: 03-28-2021 ambulatory Rody Monk MD Facility:[facility] Start: 12-06-2020 End: 12-07-2020 Patient encounter procedure [facility] Start: 12-06-2020 End: 12-06-2020 Subsequent hospital visit by physician [facility] Start: 11-11-2020 End: 11-12-2020 Patient encounter procedure [facility] Start: 05-30-2020 End: 05-31-2020 Patient encounter procedure [facility] Start: 05-30-2020 End: 05-30-2020 Subsequent hospital visit by physician [facility] Start: 01-01-2020 End: 01-02-2020 Patient encounter procedure [facility] Start: 01-01-2020 End: 01-01-2020 Subsequent hospital visit by physician [facility] Start: 09-20-2018 End: 09-21-2018 Patient encounter procedure Sidney Nava Facility:[id number] Procedures Date Procedure Procedure Detail Performing Clinician [...] 07-02-2020 Influenza vaccination Flu vaccine (# 1) [facility], [place] Payers Date Payer Category Payer Unknown 2019 Unknown [facility] xxxxxxxxxxxx 2019-Present [phone] [address] [place] [address] xxxxxxxxxxxx [id number] 2019 Unknown [facility] [id number] 2019-Present [phone] [address] [place] [address] [id number] 1992 Unknown [id number] 1992 Unknown [id number] 1992 Unknown [id number] [id number] 1992 Unknown [id number] [id number] 1992 Unknown [id number] [id number] 1992 Unknown [id number] [id number] 1992 Unknown [id number] [id number] 1992 Unknown [id number] [id number] 1992 Unknown [id number] [id number] 1992 Unknown [id number] [id number] 1992 Unknown [id number] 1959 Unknown [id number] Social History Date Type Detail Facility Tobacco smoking status NHIS Unknown if ev er smoked [facility] JESSENIA Sex Assigned At Not on file [place], [place] Summary Purpose Family History No Family History Records FoundNo Family History Records FoundNo Family History Records FoundNo Family History Records Found Advance Directives No Advanced Directives Records FoundDocuments on File Type Date Recorded Patient Isolation Washer Expl anation Advance Directives and Living Will Power of Test Eng Documents on File Type Date Recorded Patient Isolation Washer Expl anation ACP-Advance Directive ACP-Power of Test Eng Additional Source Comments INFORMATION SOURCE (unrecogn ized section and content) DATE CREATED AUTHOR [facility]10/2018 [facility] DATE CREATED AUTHOR AUTHOR'S ORGANIZ ATION 12/06/2020 [facility] DATE CREATED AUTHOR AUTHOR'S ORGANIZ ATION 03/29/2021 [facility] DATE CREATED AUTHOR AUTHOR'S ORGANIZ ATION 12/10/2022 [facility] FOR RECORDS PERTAINING TO PATIENTS [...] BE BASED ON THE PRIMARY CLINICAL RECORDS. [facility] provides no warranty or guarantee of the accuracy or completeness of information in this document.
[2024-11-29 10:52] LABS: HCG Quantitative 3026 mIU/mL
== END 2024-12-01 12:36 | disposition home or self-care (01) ==
LOC: LAB 09:30
PROVIDERS: PCP Nurse Practitioner Family; Visit Provider Obstetrics & Gynecology
DX: N92.6 Irregular menstruation, unspecified (principal)
CPT/HCPCS: 36415; 84702

== ENCOUNTER 2025-01-22 12:50 | Outpatient (OUT) | payer OTHER, SELFPAY ==
--- NOTE | 2025-01-22 12:53 | US_ITS ---
The [address] [address] Patient Name: ALEXANDER CASON MRN: [id number] date: 1990 Sex: F Assigned Patient Location: US Current Patient Location: US Accession/Order Number: [id number] Exam Date: 01/22/2025 14:49 Report Date: 01/22/2025 14:50 At the request of: MEE BOCANEGRA DO Procedure: US OB <= 14 weeks fetus OB ultrasound. Reason for exam:Positive test. Comparison:None. Technique: Transabdominal imaging of the gravid uterus was obtained. Findings: Single live intrauterine measuring 13 weeks 2 days by CRL GIAN 07/28/2025. heart rate 1 78 bpm. No free fluid is seen. Ovaries not visualized. US/US OB <= 14 weeks fetus Impression: Single live intrauterine 13 weeks 2 days by CRL GIAN 07/28/2025. Impression dictated by: Serafin Sorto Jr., D.O.01/22/2025 2:50 PM Dictation Location: [employer] Electronically authenticated by: [id number] Y Date: 01/22/2025 14:50
== END 2025-01-22 12:51 | disposition home or self-care (01) ==
LOC: US 12:50
PROVIDERS: PCP Nurse Practitioner Family; Visit Provider Obstetrics & Gynecology
DX: Z34.92 Encounter for supervision of normal pregnancy, unspecified, second trimester (principal); Z3A.13 13 weeks gestation of pregnancy; N92.6 Irregular menstruation, unspecified
CPT/HCPCS: 76801

== ENCOUNTER 2025-04-09 10:24 | Outpatient (OUT) | payer OTHER, SELFPAY ==
--- OUTSIDE RECORDS SUMMARY | 2019-12-25 20:00 | XMS_ITS | Continuity of Care Document ---
Author Organization [facility] Address [address] [place] [address] Phone Care Team Providers Care Linen Controller Name Role Phone Pavlock DO, Max Unavailable Unavailable Allergies, Adverse Reactions, Alerts Substance Reaction Status Criticality PENICILLIN Active No Information Medications Medication Instructions Dosage Effective Dates (start - stop) Status Comments risperidone 0.5 mg tablet take 1 tablet by oral route every day 0.5 MG - Active Prozac 20 mg capsule take 3 capsule by o ral route every day in the morning 60 MG - Active Procedures Procedure Date Alcohol and/or drug services- Acute Deto x Alcohol and/or drug services- Acute Deto x Acute Detox Rn Charge Acute Detox Rn Charge DRUG TEST PRSMV DIR OPT OBS URINE TEST Acute Detox Rn Charge Advance Directives Directive Yes / No Effective Date File Name No Information Encounters Encounter Description Practice Location Reason(s) For Visit Diagnoses Date Provider Providers Copied on Encounter [facility], [address] [place] [address], [id number] , tel: [phone] [facility] Detox Opioid dependence with withdrawalAlcohol dependence with withdrawal, uncomplicated 0 Pavlock DO Max. [address] [place] [address], [id number] , [place]. tel: [phone] [facility], [address] [place] [address], [id number] , tel: [phone] [facility] Detox Opioid dependence with withdrawal 0 Pavlock DO Max. [address] [place] [address], [id number] , [place]. tel: [phone] [facility], [address] [place], [place], [id number] , [place] tel: [phone] [facility] Detox Opioid dependence with withdrawal Feb-2 0 Pavlock DO Max. [address] [place], [place], [id number] , [place]. tel: [phone] [facility], [address] [place], [place], [id number] , [place] tel: [phone] [facility] Detox alcohol and heroin dependence (chief complaint) Opioid dependence with withdrawalAlcohol dependence with withdrawal, uncomplicated Feb-2 0 [place] Ayala. [address] [place], [place], [id number] , [place]. tel: [phone] [facility], [address] [place] [address], [id number] , [place] tel: [phone] [facility] Detox Opioid dependence with withdrawal Feb-2 0 Pavlock DO Max. [address] [place], [place], [id number] , [place]. tel: [phone] [facility], [address] [place] [address], [id number] , [place] tel: [phone] [facility] Detox Opioid dependence with withdrawalEncounter for test, result negative b-2 0 Pavlock DO Max. [address] [place], [place], [id number] , [place]. tel: [phone] Family History Family Member Type Diagnosis Age At Onset No Information Payers Payer name Insurance type Covered green party ID Homar sellers(s) [facility] [id number] Social History Type Description Quantity Date Captured Comments Alcohol Use Details Unknown Caffeine Use Details Unknown Tobacco Use Status Smoking Status No Information Sex Female Sexual Orientation Straight or heterosexual Gender Identity Female Vital Signs Date / Time: Height Weight BMI Pulse Rate Blood Pressure Temperature Respiratory Rate Body Surface Area Head Circumference Head Circ. Percentile Wt./Jaiden. Percentile BMI percentile Pulse Ox Inhaled Ox 2:16 AM 84 /min 117/82 mm[Hg] 97.60 F 97 % 8:50 AM 88 /min 102/65 mm[Hg] 97.60 F 99 % 3:09 PM 88 /min 93/57 mm[Hg] 97.40 F 100 % Chief Complaint And Reason For Visit No Information Reason For Referral Reason For Referral No Information History Of Present Illness Encounter Date Complaint History Of Prese nt Illness alcohol and heroin dependence 29 year old female checked in to detox yesterday and reports last consuming alcohol and using heroin 3 days ago. She typically drinks 12pk/day and injects $60/day of heroin. She has been drinking heavy for 1.5 years and taking heroin for 1 week. This is her first detox. Pt reports being on suboxone for 5 years until last Septembersurgical hx- noneallergies- penicillinmeds- prozac, risperdaltobacco- 1 ppdplans upon completing detox- surest path Functional Status Date Functional Assessmen t No Information Instructions Date Instruction Additional Infor mation No Information Assessments Type Assessment Date assessment Opioid dependence with withdrawa l assessment Alcohol dependence with withdraw al, uncomplicated Patient Care Teams Name Effective Dates (start - stop) Status Members No Information
--- OUTSIDE RECORDS SUMMARY | 2025-04-06 11:00 | XMS_ITS | Encounter Summary ---
Author Organization [facility] Address [address] [facility] [address] Care Team Providers Care System Technologist Name Role Phone Unavailable Primary Care Provider Unavailabl e Reason for Visit * Reason Comments Amenorrhea Encounter Details Date Type Department Care Team (Late st Contact Info) Description 04/06/2025 11:00 AM EDT Initial [facility] [address] [place] [address] GA: [id number] Social History Tobacco Use Types Packs/Day Years Used Date Smoking Tobacco: Every Day Cigarettes Smokeless Tobacco: Never Comments:Smokes 6-10 cigaret kavitha per day Alcohol Use Standard Drinks/Week Comments Never 0 (1 standard drink = 0.6 oz pur e alcohol) Estimated Date of Delivery Comme nts Yes 07/28/2025 Based on Ultraso und Sex and Gender Information Value Date Recorded Sex Assigned at Not on file Legal Sex Female 7:36 PM EDT Gender Identity Not on file Sexual Orientation Not on file documented as of this encounter Last Filed Vital Signs Vital Sign Reading Time Taken Comments Blood Pressure - - Pulse - - Temperature - - Respiratory Rate - - Oxygen Saturation - - Inhaled Oxygen Concentration - - Weight 70.2 kg (154 lb 12.8 oz) 025 11:47 AM EDT Height - - Body Mass Index 25.76 12/09/2022 12:00 PM EST documented in this encounter Plan of Treatment Upcoming Encounters Date Type Department Care Team (Late st Contact Info) Description 04/18/2025 1:30 PM EDT Routine [facility] [place] [address] [place] [address] Tony Pringle, DO [address] [place] [address] Scheduled Orders Name Type Priority Associated Diagnoses Orde r Schedule Type and screen Lab Routine Missed menses , unspecified gestational age Expected: 04/06/2025 (Approximate), Expires: 04/06/2026 ABO/Rh Lab Routine Missed menses , unspecified gestational age Expected: 04/06/2025 (Approximate), Expires: 04/06/2026 CBC and differential Lab Routine Missed menses , unspecified gestational age Ordered: 04/06/2025 Hemoglobin A1c Lab Routine Missed menses , unspecified gestational age Ordered: 04/06/2025 RPR Lab Routine Missed menses , unspecified gestational age Ordered: 04/06/2025 Rubella antibody, IgG Lab Routine Missed menses , unspecified gestational age Ordered: 04/06/2025 Hepatitis B surface antigen Lab Routine Missed menses , unspecified gestational age Ordered: 04/06/2025 Hepatitis C antibody Lab Routine Missed menses , unspecified gestational age Ordered: 04/06/2025 HIV-1 and HIV-2 antibodies Lab Routine Missed menses , unspecified gestational age Ordered: 04/06/2025 Urine culture Microbiology Routine Missed menses Ordered: 04/06/2025 Rapid drug screen, urine Lab Routine , unspecified gestational age Encounter for supervision of normal first in first trimester Expected: 04/06/2025 (Approximate), Expires: 04/06/2026 US OB 14+ weeks anatomy scan Imaging Routine Screening, , for anatomic survey Expected: 04/06/2025, Expires: 07/07/2025 CBC Lab Routine Diabetes mellitus screening Expected: 04/06/2025 (Approximate), Expires: 04/06/2026 Glucose tolerance, 1 hour Lab Routine Diabetes mellitus screening Expected: 04/06/2025 (Approximate), Expires: 04/06/2026 documented as of this encounter Procedures Procedure Name Priority Date/Time Associated Diagnosis Comments POCT , URINE Routine 04/06/2025 11:13 AM EDT Missed menses POCT URINALYSIS DIPSTICK Routine 04/06/2025 11:13 AM EDT Missed menses documented in this encounter Results * POCT urinalysis dipstick manually resulted (04/06/2025 11:13 AM EDT) Color, UA Yellow Clarity, UA Clear Glucose, UA Negative Negative - 2000(110) ++++ mg/dL Bilirubin, UA Negative Negative - 4(70) +++ mg/dL Ketones, UA Negative Negative - 160(16) ++++ mg/dL Spec Grav, UA 1.020 1 - 1.03 Blood, UA Negative Negative - 50 Amador/mcL pH, UA 6.5 5 - 9 Protein, UA Negative Negative - 2000(20) ++++ mg/dL Urobilinogen, UA 1.0 0.2 - 12 mg/dL Leukocytes, UA Negative Negative - 500+++ Camille/mcL Nitrite, UA Negative Negative - Positive Urine 04/06/2025 11:1 3 AM EDT [facility] POINT OF CARE TEST ENTER/EDIT OR DERABLES Final Result * (ABNORMAL) POCT , urine manually resulted (04/06/2025 11:13 AM EDT) Preg Test, Ur Positive Negative Urine 04/06/2025 11:1 3 AM EDT [employer] DO POINT OF CARE TEST ENTER/EDIT OR DERABLES Final Result documented in this encounter Visit Diagnoses Diagnosis Missed menses , unspecified gestational age Encounter for supervision of normal first in first trimester Screening, , for anatomic survey Encounter for anatomic survey Diabetes mellitus screening Screening for diabetes mellitus documented in this encounter
--- OUTSIDE RECORDS SUMMARY | 2025-04-09 10:27 | XMS_ITS | Encounter Summary ---
Author Organization [facility] Address [address] [place] [address] Care Team Providers Care Fisher Diver Net Name Role Phone Unavailable Primary Care Provider Unavailabl e Encounter Details Date Type Department Care Team (Late st Contact Info) Description 07/05/2015 Abstract [facility] [address] [place] [address] Tony Pringle DO [facility] [address] [place], [facility] Social History Tobacco Use Types Packs/Day Years Used Date Smoking Tobacco: Never Assessed Comments Unknown Sex and Gender Information Value Date Recorded Sex Assigned at Not on file Legal Sex Female 7:36 PM EDT Gender Identity Not on file Sexual Orientation Not on file documented as of this encounter Plan of Treatment Upcoming Encounters Date Type Department Care Team (Late st Contact Info) Description 04/18/2025 1:30 PM EDT Routine [facility] [address] [place] [address] Tony Pringle DO [facility] [address] [place], [facility] documented as of this encounter Visit Diagnoses Not on filedocumented in this encounter
--- OUTSIDE RECORDS SUMMARY | 2025-04-09 10:27 | XMS_ITS | Clinical Summary ---
Author Organization [facility] Address [address] [place] [address] Care Team Providers Care Spider Assembler Name Role Phone Unavailable Primary Care Provider Unavailabl e Allergies Active Allergy Reactions Criticality Noted Date Comments Penicillin G 01/25/2025 Other Reaction(s): childhood/unknown, Unknown Medications Suboxone 8-[address] 1 Film under the tongue Daily 03/27/2025 Active gabapentin (Neurontin) 100 MG capsule as directed for 9 days Active QUEtiapine (SEROquel) 50 MG tablet Take 50 mg by mouth at bedtime 03/23/2025 Active Encounters Date Type Department Care Team Description 04/06/2025 11:00 AM EDT Initial [facility] [place] [address] [place] [address] GA: 23w6d 01/23/2025 Telephone [facility] [place] [address] [place] [phone] Mee Pringle, 01/22/2025 Clinisync Result Encounter [facility] External Department Unsolicited eMe Pringle, 01/19/2025 Telephone [facility] [place] [address] [place] [address] Arabella Hill MA from Last 3 Months Family History Medical History Relation Name Comments Mental illness Brother Cancer Father Hypertension Father Mental illness Father Mental illness Maternal Grandmother Cancer Mother Hypertension Mother Mental illness Mother Mental illness Paternal Grandmother Relation Name Status Comments Brother Father Maternal Grandmother Mother Paternal Grandmother Social History Tobacco Use Types Packs/Day Years Used Date Smoking Tobacco: Every Day Cigarettes Smokeless Tobacco: Never Tobacco Cessation:Ready to Q uit: Not Asked; Counseling Given: Not Answered Comments:Smokes 6-10 cigarettes per day Alcohol Use Standard Drinks/Week Comments Never 0 (1 standard drink = 0.6 oz pur e alcohol) Estimated Date of Delivery Comme nts Yes 07/28/2025 Based on Ultraso und Sex and Gender Information Value Date Recorded Sex Assigned at Not on file Legal Sex Female 7:36 PM EDT Gender Identity Not on file Sexual Orientation Not on file Last Filed Vital Signs Vital Sign Reading Time Taken Comments Blood Pressure 100/67 12/09/2022 12:00 PM EST Pulse - - Temperature - - Respiratory Rate - - Oxygen Saturation - - Inhaled Oxygen Concentration - - Weight 70.2 kg (154 lb 12.8 oz) 025 11:47 AM EDT Height 165.1 cm (5' 5 ) 12/09/2022 12:0 0 PM EST Body Mass Index 25.76 12/09/2022 12:00 PM EST Plan of Treatment Upcoming Encounters Date Type Department Care Team (Late st Contact Info) Description 04/18/2025 1:30 PM EDT Routine [facility] [address] [facility] [place] [address] Mee Pringle, DO [address] [place], [place] [id number] Health Maintenance Due Date Last Done Comments Pap Smear 2013 Cervical Cancer Screening 2022 HPV/Cotest 2022 Influenza Vaccine (Season Ended) 2025 Procedures Procedure Name Priority Date/Time Associated Diagnosis Comments POCT URINALYSIS DIPSTICK Routine 04/06/2025 11:13 AM EDT Missed menses POCT , URINE Routine 04/06/2025 11:13 AM EDT Missed menses US OB L= 14 WEEKS FETUS 01/22/2025 2:50 PM EDT from Last 3 Months Results * (ABNORMAL) POCT , urine manually resulted (04/06/2025 11:13 AM EDT) Preg Test, Ur Positive Negative Urine 04/06/2025 11:1 3 AM EDT Mee Pringle DO POINT OF CARE TEST ENTER/EDIT OR DERABLES Final Result * POCT urinalysis dipstick manually resulted (04/06/2025 [...] - 9 Protein, UA Negative Negative - 1999(20) ++++ mg/dL Urobilinogen, UA 1.0 0.2 - 12 mg/dL Leukocytes, UA Negative Negative - 500+++ Camille/mcL Nitrite, UA Negative Negative - Positive Urine 04/06/2025 11:1 3 AM EDT Mee Pringle DO POINT OF CARE TEST ENTER/EDIT OR DERABLES Final Result * US OB L= 14 WEEKS FETUS (01/22/2025 2:50 PM EDT) Anatomical Region Laterality Modality Other 01/22/2025 2:50 PM EDT Narrative 01/22/2025 2:53 [place] [address] Ultrasound Report Signed Patient: CARMELITA YANEZ MR#: [id number] : 1990 Acct:[id number] Age/Sex: 34 / F ADM Date: 01/22/25 Loc: US Attending Dr: Mee Pringle D.O. Ordering Physician: Mee Pringle D.O. Date of Service: 01/22/25 Procedure(s): US OB <= 14 weeks fetus Accession Number(s): [id number] cc: ROMEO GAR ; Mee Pringle D.O. The [place] [id number] Patient Name: CARMELITA YANEZ MRN: [facility]:[id number] date: 1990 Sex: F Assigned Patient Location: US Current Patient Location: US Accession/Order Number: [id number] Exam Date: 01/22/2025 14:49 Report Date: 01/22/2025 14:50 At the request of: MEE PRINGLE DO Procedure: US OB <= 14 weeks fetus OB ultrasound. Reason for exam:Positive test. Comparison:None. Technique: Transabdominal imaging of the gravid uterus was obtained. Findings: Single live intrauterine measuring 13 weeks 2 days by CRL GIAN 07/28/2025. heart rate 1 78 bpm. No free fluid is seen. Ovaries not visualized. US/US OB <= 14 weeks fetus Impression: Single live intrauterine 13 weeks 2 days by CRL GIAN 07/28/2025. Impression dictated by: Serafin Sorto Jr., D.O.01/22/2025 2:50 PM Dictation Location: [place] [address] Electronically authenticated by: [id number] Y Date: 01/22/2025 14:50 Dictated By: Serafin Sorto M.D. Signed By: 01/22/25 1453 DD/ 1450 TD/TT: Sql Server Consultant: Procedure Note Radiology, Radiologist, MD - 01/22/2025 [place] [address] Ultrasound Report Signed Patient: CARMELITA YANEZ NMR#: [id number] : 1990Acct:[id number] Age/Sex: 34 / FADM Date: 01/22/25 Loc: US Attending Dr: Mee Pringle D.O. Ordering Physician: Mee Pringle D.O. Date of Service: 01/22/25 Procedure(s): US OB <= 14 weeks fetus Accession Number(s): [id number] cc: ROMEO GAR ; Mee Pringle D.O. The [place] [address] Patient Name: CARMELITA YANEZ MRN: [facility]:[id number] date: 1990 Sex: F Assigned Patient Location: US Current Patient Location: Accession/Order Number: [id number] Exam Date: 01/22/2025 14:49 Report Date: 01/22/2025 14:50 At the request of: MEE PRINGLE DO Procedure: US OB <= 14 weeks fetus OB ultrasound. Reason for exam:Positive test. Comparison:None. Technique: Transabdominal imaging of the gravid uterus was obtained. Findings: Single live intrauterine measuring 13 weeks 2 days by CRL GIAN 07/28/2025. heart rate 1 78 bpm. No free fluid is seen. Ovariesnot visualized. US/US OB <= 14 weeks fetus Impression: Single live intrauterine 13 weeks 2 days by CRL GIAN 07/28/2025. Impression dictated by: Serafin Sorto Jr., D.O.01/22/2025 2:50 PM Dictation Location: [place] [address] Electronically authenticated by: [id number] Y Date: 4:50 Dictated By: Serafin Sorto M.D. Signed By:01/22/25 1453 DD/ 1450 TD/TT: Sql Server Consultant: Mee Pringle DO [facility] Final Result from Last 3 Months Insurance [employer]
--- NOTE | 2025-04-09 10:32 | US_ITS ---
The [address] [address] Patient Name: ALEXANDER CASON MRN: [id number] date: 1990 Sex: F Assigned Patient Location: Current Patient Location: US Accession/Order Number: [id number] Exam Date: 04/09/2025 12:20 Report Date: 04/09/2025 13:01 At the request of: LAURITA OLVERA Procedure: US OB anatomy CLINICAL DATA: Screening for anatomy COMPARISON: 01/22/2025 ULTRASOUND OB ANATOMY There is a single live intrauterine gestation in cephalic presentation. The amniotic fluid volume is subjectively normal. There is a posterior placenta. A placental band was noted. There is cardiac and somatic activity with heart rate of 135 bpm. The neural axis and all 4 extremities were surveyed by the instrument technician apprentice. No abnormalities were detected. The stomach, bladder, kidneys, three-vessel cord with insertion, four-chamber heart with right and left outflow tracts, diaphragm, facial features and reported male genitalia were seen. The following measurements were obtained: Biparietal diameter 6.1cm 24 weeks 4 days 57% Head circumference 22.7 cm 24 weeks 5 days 46% Abdominal circumference 20.6 cm 25 weeks 1 day 69% Femur length 4.0 cm 23 weeks 0 days 8% The composite ultrasound age based on these measurements is 24 weeks 3 days +/- 1 week 5 days. The estimated date of delivery is July 27, 2025. This correlates with dates based on the prior. The estimated weight is 1 lb. 8 oz. +/- 4 ounces (42%) US/US OB cervical length IMPRESSION: SINGLE LIVE INTRAUTERINE GESTATION WITH ULTRASOUND AGE OF 24 WEEKS 3 DAYS. UNREMARKABLE ANATOMY SURVEY INCIDENTAL PLACENTAL BAND ULTRASOUND OB CERVICAL LENGTH The cervix was evaluated with the transvaginal probe. The cervix is closed and measures approximately 3.5 cm in diameter. There is no evidence of previa. IMPRESSION: CLOSED CERVIX, UNREMARKABLE IN APPEARANCE. Impression dictated by: Raine Zelaya M.D. 04/09/2025 1:01 PM Dictation Location: [place] [address] Electronically authenticated by: [id number] Y Date: 04/09/2025 13:01
--- NOTE | 2025-04-09 10:32 | US_ITS ---
The [address] [address] Patient Name: ALEXANDER CASON MRN: [id number] date: 1990 Sex: F Assigned Patient Location: Current Patient Location: US Accession/Order Number: [id number] Exam Date: 04/09/2025 12:20 Report Date: 04/09/2025 13:01 At the request of: LAURITA OLVERA Procedure: US OB anatomy CLINICAL DATA: Screening for anatomy COMPARISON: 01/22/2025 ULTRASOUND OB ANATOMY There is a single live intrauterine gestation in cephalic presentation. The amniotic fluid volume is subjectively normal. There is a posterior placenta. A placental band was noted. There is cardiac and somatic activity with heart rate of 135 bpm. The neural axis and all 4 extremities were surveyed by the sales performance manager. No abnormalities were detected. The stomach, bladder, kidneys, three-vessel cord with insertion, four-chamber heart with right and left outflow tracts, diaphragm, facial features and reported male genitalia were seen. The following measurements were obtained: Biparietal diameter 6.1cm 24 weeks 4 days 57% Head circumference 22.7 cm 24 weeks 5 days 46% Abdominal circumference 20.6 cm 25 weeks 1 day 69% Femur length 4.0 cm 23 weeks 0 days 8% The composite ultrasound age based on these measurements is 24 weeks 3 days +/- 1 week 5 days. The estimated date of delivery is July 27, 2025. This correlates with dates based on the prior. The estimated weight is 1 lb. 8 oz. +/- 4 ounces (42%) US/US OB anatomy IMPRESSION: SINGLE LIVE INTRAUTERINE GESTATION WITH ULTRASOUND AGE OF 24 WEEKS 3 DAYS. UNREMARKABLE ANATOMY SURVEY INCIDENTAL PLACENTAL BAND ULTRASOUND OB CERVICAL LENGTH The cervix was evaluated with the transvaginal probe. The cervix is closed and measures approximately 3.5 cm in diameter. There is no evidence of previa. IMPRESSION: CLOSED CERVIX, UNREMARKABLE IN APPEARANCE. Impression dictated by: Raine Zelaya M.D. 04/09/2025 1:01 PM Dictation Location: [place] [address] Electronically authenticated by: [id number] Y Date: 04/09/2025 13:01
--- OUTSIDE RECORDS SUMMARY | 2025-04-09 10:41 | XMS_ITS | CCD ---
Author Organization [facility] Inform ion Partnership [facility] Care Team Providers Care Yoghurt Maker Name Role Phone Sidney Nava Unavailable Unavailable Unavailable Primary Care Provider Unavailabl e Unavailable Primary Care Provider Unavailabl e MALINI EISENBERG Referring Unavailable CATRINA, MALINI Referring Unavailable CATRINAMALINI TORRES Referring Unavailable CATRINA, MALINI Referring Unavailable Rody Monk MD Attending Unavailable PETROS, DR COOK Admitting Unavailable REQUEST, DR NONE LISTED Primary Care Unavaila ble PETROS, [...] Unavaila ble PETROS, DR COOK Consulting Unavailable KARASICandelaria, DR COOK Attending Unavailable KARASIK, DR COOK Admitting Unavailable ZIEBER, DR MAYUR Noriega Consulting Unavailable Unavailable Primary Care Provider Unavailabl e Allergies Allergy Classification Reported Allergen(s) Allergy Type Date of Onset Reaction(s) Facility (1 source) Penicillins Drug allergy (disorder) 04-10-2013 [facility] Repository Problems Active Problems Problem Classification [...] 07-31-2022 Episodic Other aftercare (5 sources) Other 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 Ordering Physician: Mee Pringle D.O. Date of Service: 01/22/25 Procedure(s): US OB <= 14 weeks fetus Accession Number(s): [id number] cc: ROMEO GAR ; Mee Pringle D.O. [place] [address] Patient Name: CARMELITA CASON MRN: [facility]:[id number] date: 1990 Sex: F Assigned Patient Location: US Current Patient Location: US Accession/Order Number: [id number] Exam Date: 01/22/2025 14:49 Report Date: 01/22/2025 [...] Sorto Jr., D.O.01/22/2025 2:50 PM Dictation Location: [place] [address] Electronically authenticated by: [id number] Y Date: 01/22/2025 14:50 Dictated By: Serafin Sorto M.D. Signed By: 01/22/25 145 DD/ 1450 TD/TT: Drag Down: [facility] Radiology, Radiologist, - 01/22/2025 [place] [address] Ultrasound Report Signed Patient: CARMELITA CASON MR#: [id number] : 1990 Acct:[id number] Age/Sex: 34 / F ADM Date: 01/22/25 Loc: US Attending Dr: Mee Pringle D.O. Ordering Physician: Mee Pringle D.O. Date of Service: 01/22/25 Procedure(s): US OB <= 14 weeks fetus Accession Number(s): [id number] cc: ROMEO GAR ; Mee Pringle D.O. [address] [place] [address] Patient Name: CARMELITA CASON MRN: [id number] date: 1990 Sex: F Assigned Patient Location: US Current Patient Location: US Accession/Order Number: [id number] Exam Date: 01/22/2025 14:49 Report Date: 01/22/2025 [...] Sorto Jr., D.O.01/22/2025 2:50 PM Dictation Location: [place] [address] Electronically authenticated by: [id number] Y Date: 01/22/2025 14:50 Dictated By: Serafin Sorto M.D. Signed By: 01/22/25 1455 DD/ 1450 TD/TT: Drag Down: [facility] Radiology Study observation (narrative) [facility] US OB L= 14 WEEKS FETUSOrder ed By: Radiologist Radiology on 01-22-2025 [facility] Work Phone: [facility] PREG QUANT HCGon 025 HCG QUANTITATIVE 3026 mIU/mL [facility] Comment on above: 5-50 0.2-1 WEEK 50-500 1-2 WEEKS 100-5,000 2-3 WEEKS 500-10,000 3-4 WEEKS 1,000-50,000 4-5 WEEKS 10,000-100,000 5-6 WEEKS 15,000-200,000 6-8 WEEKS 10,000-100,000 2-3 MONTHS [facility] COMPLIANCE DRUG SCREENon PDF . Normal [facility] Comment on above: Performed By: #### D SDOAL #### [facility] [address] [place] [address] Dr. Roberto Parmar Summary FINAL Normal [facility] Comment on above: Result Comment: == TOXASSURE COMP DRUG ANALYSIS,UR == Specimen Alert Note: Urinary creatinine is low; ability to detect some drugs may be compromised. Interpret results with caution. == Test Result Flag Units Drug Present and [...] is an expected metabolite of dextromethorphan, an wcjy-gok-rkjefgf or prescription cough suppressant. Levorphanol is a scheduled prescription medication. Dextrorphan cannot be distinguished from levorphanol by the method used for analysis. Guaifenesin PRESENT UNEXPECTED Guaifenesin may be administered as an dtfo-tnx-devjzfb or prescription drug; it may also be present as a breakdown product of methocarbamol. Drug Absent but Declared for Prescription Verification Cyclobenzaprine Not Detected UNEXPECTED Quetiapine Not Detected UNEXPECTED == Test Result Flag Units Ref Range Creatinine 19 L mg/dL >=20 == Declared Medications: The flagging and interpretation on this report are based on the following declared medications. Unexpected results may arise from inaccuracies in the declared medications. Note: The testing scope of this panel includes these medications: Alprazolam (Xanax) Buprenorphine. (Suboxone) Cyclobenzaprine (Flexeril) Gabapentin Quetiapine (Seroquel) Note: The testing scope of this panel does not include following reported medications: Naloxone (Suboxone) == For clinical consultation, please call . == Performed By: #### D SDOALC #### [facility] [address] [place] [address] Dr. Roberto Parmar URIC ACID RAND URINEon 09-03 Uric Acid, Urine 12.4 mg/dL Normal Not Estab. [facility] Comment on above: Performed By: #### U RICUR #### [facility] [address] [place] [address] Dr. Roberto Parmar DRUG SCREEN RAPID (URINE)on 09-02-2022 AMP Negative Normal NEGATIVE [facility] Comment on above: Performed By: #### D RUGRPD #### [facility] [address] [place] [address] Dr. Roberto Parmar BAR Negative Normal NEGATIVE [facility] Comment on above: Performed By: #### D RUGRPD #### [facility] [address] [place] [address] Dr. Roberto Parmar BUP Positive Abnormal NEGATIVE [facility] Comment on above: Performed By: #### D RUGRPD #### [facility] [address] [place] [address] Dr. Roberto Parmar BZO Positive Abnormal NEGATIVE [facility] Comment on above: Performed By: #### D RUGRPD #### [facility] [address] [place] [address] Dr. Roberto Parmar BRITTANY Negative Normal NEGATIVE [facility] Comment on above: Performed By: #### D RUGRPD #### [facility] [address] [place] [address] Dr. Roberto Parmar CUT-OFFS SEE BELOW Normal [facility] Comment on above: Result Comment: AMP [...] ng/mL Performed By: #### D RUGRPD #### [facility] [address] [place] [address] Dr. Roberto Parmar DRUG CUT HEADER DRUG CLASS TEST SYSTEM CUT-OFF CONCENTRATIONS ARE FOLLOWS: Normal [facility] Comment on above: Performed By: #### D RUGRPD #### [facility] [address] [place] [address] Dr. Roberto Parmar mAMP Negative Normal NEGATIVE [facility] Comment on above: Performed By: #### D RUGRPD #### [facility] [address] [place] [address] Dr. Roberto Parmar MTD Negative Normal NEGATIVE [facility] Comment on above: Performed By: #### D RUGRPD #### [facility] [address] [place] [address] Dr. Roberto Parmar OPI Negative Normal NEGATIVE [facility] Comment on above: Performed By: #### D RUGRPD #### [facility] [address] [place] [address] Dr. Roberto Parmar OXY Negative Normal NEGATIVE [facility] Comment on above: Performed By: #### D RUGRPD #### [facility] [address] [place] [address] Dr. Roberto Parmar PCP Negative Normal NEGATIVE [facility] Comment on above: Performed By: #### D RUGRPD #### [facility] [address] [place] [address] Dr. Roberto Parmar PPX Negative Normal NEGATIVE [facility] Comment on above: Performed By: #### D RUGRPD #### [facility] [address] [place] [address] Dr. Roberto Parmar TCA Negative Normal NEGATIVE [facility] Comment on above: Performed By: #### D RUGRPD #### [facility] [address] [place] [address] [address] Roberto Parmar THC Negative Normal NEGATIVE [facility] Comment on above: Performed By: #### D RUGRPD #### [facility] [address] [place] [address] [address] Roberto Parmar US PELVIS AND TRANSVAGon [...] by: MAYUR ALLEN Date: 2022-07-13 07:[address] [facility] PAP ACOG PANEL 2: 21 to 29on 06-18-2022 . . Normal [facility] Comment on above: Performed By: #### [id number] #### [facility] [address] [place] [address] [address] Roberto Parmar Age Gdln ACOG Testing 21-[address] [facility] Comment on above: Performed By: #### 4 [id number] #### [facility] [address] [place] [address] Dr. Roberto Parmar DIAGNOSIS: Comment Normal [facility] Comment on above: Result Comment: NEGA TIVE FOR INTRAEPITHELIAL LESION OR MALIGNANCY. Performed By: #### 4 [id number] #### [facility] [address] [place] [address] Dr. Roberto Parmar Methodology: Comment Normal [facility] Comment on above: Result Comment: This liquid based ThinPrep(R) pap test was screened with the use of an image guided system. Performed By: #### 4 [id number] #### [facility] [address] [place] [address] Dr. Roberto Parmar Note: Comment Normal [facility] Comment on above: Result Comment: The Pap smear is a screening test designed to aid in the detection of premalignant and malignant conditions of the uterine cervix. It is not a diagnostic procedure and should not be used as the sole means of detecting cervical cancer. Both false-positive and false-negative reports do occur. . Performed By: #### 4 [id number] #### [facility] [address] [place] [address] Dr. Roberto Parmar Performed by: Comment Normal [facility] Comment on above: Result Comment: Kishore De Dios Tour Counselor (ASCP) Performed By: #### 4 [id number] #### [facility] [address] [place] [address] Dr. Roberto Parmar Reflex Criteria: Comment Normal [facility] Comment on above: Result Comment: The HPV DNA reflex criteria were not met with this specimen result therefore, no HPV testing was performed. . Performed By: #### 4 [id number] #### [facility] [address] [place] [address] Dr. Roberto Parmar Specimen adequacy: Comment Normal [facility] Comment on above: Result Comment: Sati sfactory for evaluation. Endocervical and/or squamous metaplastic cells (endocervical component) are present. Performed By: #### 4 [id number] #### [facility] [address] [place] [address] Dr. Roberto Parmar CBCon 12-06-2020 Erythrocyte distribution width (RBC) [Ratio] 13.6 % Normal 11.8-14.4 [facility] Comment on above: Performed By: #### P HEP, HIVCMB #### [place] [id number] [place] [address] Coin Machine Assembler: Alvino Davila MD #### CP, CBC, HCG #### [address] [place] [phone] Coin Machine Assembler: Luis A Peng MD Hematocrit (Bld) [Volume fraction] 44.1 % Normal 36.3-47.1 [facility] Comment on above: Performed By: #### P HEP, HIVCMB #### [address] [phone] Coin Machine Assembler: Alvino Davila MD #### CP, CBC, HCG #### [address] [place] [phone] Coin Machine Assembler: Luis A Peng MD Hemoglobin (Bld) [Mass/Vol] 14.1 g/dL Normal 11.9-15.1 [facility] Comment on above: Performed By: #### P HEP, HIVCMB #### [address] [phone] Coin Machine Assembler: Alvino Davila MD #### CP, CBC, HCG #### [address] [place] [phone] Coin Machine Assembler: Luis A Peng MD MCH (RBC) [Entitic mass] 25.4 pg Normal 25.2-33.5 [facility] Comment on above: Performed By: #### P HEP, HIVCMB #### [address] [phone] [employer] Machine Assembler: Alvino Davila MD #### CP, CBC, HCG #### [address] [place] [phone] Coin Machine Assembler: Luis A Peng MD MCHC (RBC) [Mass/Vol] 32.0 g/dL Normal 28.4-34.8 [facility] Comment on above: Performed By: #### P HEP, HIVCMB #### [address] [phone] Coin Machine Assembler: Alvino Davila MD #### CP, CBC, HCG #### [address] [place] [phone] Coin Machine Assembler: Luis A Peng MD MCV (RBC) [Entitic vol] 79.5 fL Low 82.6-102.9 [facility] Comment on above: Performed By: #### P HEP, HIVCMB #### [place] [phone] Coin Machine Assembler: Alvino Davila MD #### CP, CBC, HCG #### [address] [place] [phone] Coin Machine Assembler: Luis A Peng MD NRBC Automated 0.0 per 100 WBC Normal 0.0 [facility] Comment on above: Performed By: #### P HEP, HIVCMB #### [place] [phone] Coin Machine Assembler: Alvino Davila MD #### CP, CBC, HCG #### [address] [place] [phone] [employer] Machine Assembler: Luis A Peng MD Platelet mean volume (Bld) [Entitic vol] 11.8 fL Normal 8.1-13.5 [facility] Comment on above: Performed By: #### P HEP, HIVCMB #### [address] [phone] [employer] Machine Assembler: Alvino Davila MD #### CP, CBC, HCG #### [address] [place] [phone] Coin Machine Assembler: Luis A Peng MD Platelets (Bld) [#/Vol] 238 10*3/uL Normal 138-453 [facility] Comment on above: Performed By: #### P HEP, HIVCMB #### [place] [address] [place] [address] Coin Machine Assembler: Alvino Davila MD #### CP, CBC, HCG #### [address] [place] [phone] [employer] Machine Assembler: Luis A Peng MD RBC (Bld) [#/Vol] 5.55 10*6/uL High 3.95-5.11 [facility] Comment on above: Performed By: #### P HEP, HIVCMB #### [address] [phone] [employer] Machine Assembler: Alvino Davila MD #### CP, CBC, HCG #### [address] [place] [phone] Coin Machine Assembler: Luis A Peng MD WBC (Bld) [#/Vol] 8.6 10*3/uL Normal 3.5-11.3 [facility] Comment on above: Performed By: #### P HEP, HIVCMB #### [address] [phone] [employer] Machine Assembler: Alvino Davila MD #### CP, CBC, HCG #### [address] [place] [phone] Coin Machine Assembler: Luis A Peng MD Erythrocyte distribution width (RBC) [Ratio] 13.6 % 11.8 - 14.4 % [place] Hematocrit (Bld) [Volume fraction] 44.1 % 36.3 - 47.1 % [place] Hemoglobin (Bld) [Mass/Vol] 14.1 g/dL 11.9 - 15.1 g/dL [place] Interpretation and review of laboratory results Abnormal [place] MCH (RBC) [Entitic mass] 25.4 pg 25.2 - 33.5 pg [place] MCHC (RBC) [Mass/Vol] 32.0 g/dL 28.4 - 34.8 g/dL [place] MCV (RBC) [Entitic vol] 79.5 fL Low 82.6 - 102.9 fL [place] Platelet mean volume (Bld) [Entitic vol] 11.8 fL 8.1 - 13.5 fL [place] Platelets (Bld) [#/Vol] 238 10*3/uL [place] RBC (Bld) [#/Vol] 5.55 10*6/uL High 3.95 - 5.11 m/uL [place] WBC (Bld) [#/Vol] 8.6 10*3/uL [place] WBC (Bld) [#/Vol] 0.0 10*3/uL 0.0 per 100 WBC M [place], [place] Comp Metabolic Profon 2020 (cont.) Normal [facility] Comment on above: Result Comment: Aver age GFR for 20-29 years old: 116 mL/min/1.73sq m Chronic Kidney Disease: <60 mL/min/1.73sq m Kidney failure: <15 mL/min/1.73sq m eGFR calculated using average adult body mass. Additional eGFR calculator available at: http://www.kwiry.Solafeet/multiple_crcl_2012.htm Performed By: #### P HEP, HIVCMB #### [facility] [employer] [address] [place], [place] [phone] Coin Machine Assembler: Alvino Davila MD #### CP, CBC, HCG #### [facility] [address] [place] [address] Coin Machine Assembler: Luis A Peng MD Albumin [Mass/Vol] 4.6 g/dL Normal 3.5-5.2 [facility] Comment on above: Performed By: #### P HEP, HIVCMB #### [facility] [employer] [facility] [place] [address] Coin Machine Assembler: Alvino Davila MD #### CP, CBC, HCG #### [facility] [address] [place] [address] Coin Machine Assembler: Luis A Peng MD Albumin/Globulin [Mass ratio] 1.6 {ratio} Normal 1.0-2.5 [facility] Comment on above: Performed By: #### P HEP, HIVCMB #### [address] [address] Coin Machine Assembler: Alvino Davila MD #### CP, CBC, HCG #### [facility] [address] [place] [address] Coin Machine Assembler: Luis A Peng MD Alkaline Phos 81 U/L Normal 35-104 [facility] Comment on above: Performed By: #### P HEP, HIVCMB #### [address] [address] [employer] Machine Assembler: Alvino Davila MD #### CP, CBC, HCG #### [facility] [address] [place] [phone] [employer] Machine Assembler: Luis A Peng MD ALT [Catalytic activity/Vol] 39 U/L High 5-33 [facility] Comment on above: Performed By: #### P HEP, HIVCMB #### [address] [address] [employer] Machine Assembler: Alvino Davila MD #### CP, CBC, HCG #### [facility] [address] [place] [address] Coin Machine Assembler: Luis A Peng MD Anion gap [Moles/Vol] 12 mmol/L Normal 9-17 [facility] Comment on above: Performed By: #### P HEP, HIVCMB #### [address] [address] [employer] Machine Assembler: Alvino Davila MD #### CP, CBC, HCG #### [facility] [address] [place], [place] [phone] Coin Machine Assembler: Luis A Peng MD AST [Catalytic activity/Vol] 28 U/L Normal <32 [facility] Comment on above: Performed By: #### P HEP, HIVCMB #### [address] [address] [employer] Machine Assembler: Alvino Davila MD #### CP, CBC, HCG #### [facility] [address] [place], [place] [phone] Coin Machine Assembler: Luis A Peng MD Bilirubin Ql (U) 0.26 mg/dL Low 0.3-1.2 [facility] Comment on above: Performed By: #### P HEP, HIVCMB #### [address] [address] [employer] Machine Assembler: Alvino Davila MD #### CP, CBC, HCG #### [address] [place] [address] Coin Machine Assembler: Luis A Peng MD BUN/CRE Ratio 14 Normal 9-20 [facility] Comment on above: Performed By: #### P HEP, HIVCMB #### [address] [address] [employer] Machine Assembler: Alvino Davila MD #### CP, CBC, HCG #### [address] [place], [place] [phone] Coin Machine Assembler: Luis A Peng MD Calcium [Mass/Vol] 10.1 mg/dL Normal 8.6-10.4 [facility] Comment on above: Performed By: #### P HEP, HIVCMB #### [address] [address] [employer] Machine Assembler: Alvino Davila MD #### CP, CBC, HCG #### [facility] [address] [place], [place] [phone] Coin Machine Assembler: Luis A Peng MD Chloride [Moles/Vol] 101 mmol/L Normal 98-107 [facility] Comment on above: Performed By: #### P HEP, HIVCMB #### [address] [address] [employer] Machine Assembler: Alvino Davila MD #### CP, CBC, HCG #### [facility] [address] [place], [place] [phone] Coin Machine Assembler: Luis A Peng MD CO2 [Moles/Vol] 26 mmol/L Normal 20-31 [facility] Comment on above: Performed By: #### P HEP, HIVCMB #### [address] [address] Coin Machine Assembler: Alvino Davila MD #### CP, CBC, HCG #### [address] [place], [place] [phone] Coin Machine Assembler: Luis A Peng MD Creatinine [Mass/Vol] 0.49 mg/dL Low 0.50-0.90 [facility] Comment on above: Performed By: #### P HEP, HIVCMB #### [address] [address] [employer] Machine Assembler: Alvino Davila MD #### CP, CBC, HCG #### [address] [place], [place] [phone] Coin Machine Assembler: Luis A Peng MD GFR, Amer >60 Normal >60 [facility] Comment on above: Performed By: #### P HEP, HIVCMB #### [address] [address] [employer] Machine Assembler: Alvino Davila MD #### CP, CBC, HCG #### [address] [place], [place] [phone] Coin Machine Assembler: Luis A Peng MD GFR,non Amer >60 Normal >60 [facility] Comment on above: Performed By: #### P HEP, HIVCMB #### [address] [address] [employer] Machine Assembler: Alvino Davila MD #### CP, CBC, HCG #### [address] [place] [phone] Coin Machine Assembler: Luis A Peng MD Glucose [Mass/Vol] 101 mg/dL High 70-99 [facility] Comment on above: Performed By: #### P HEP, HIVCMB #### [address] [phone] [employer] Machine Assembler: Alvino Davila MD #### CP, CBC, HCG #### [address] [place] [phone] Coin Machine Assembler: Luis A Peng MD Potassium [Moles/Vol] 4.2 mmol/L Normal 3.7-5.3 [facility] Comment on above: Performed By: #### P HEP, HIVCMB #### [address] [address] Coin Machine Assembler: Alvino Davila MD #### CP, CBC, HCG #### [address] [place] [phone] Coin Machine Assembler: Luis A Peng MD Protein [Mass/Vol] 7.5 g/dL Normal 6.4-8.3 [facility] Comment on above: Performed By: #### P HEP, HIVCMB #### [address] [address] [employer] Machine Assembler: Alvino Davila MD #### CP, CBC, HCG #### [address] [place] [address] Coin Machine Assembler: Luis A Peng MD Sodium [Moles/Vol] 139 mmol/L Normal 135-144 [facility] Comment on above: Performed By: #### P HEP, HIVCMB #### [facility] [address] [place] [address] Coin Machine Assembler: Alvino Davila MD #### CP, CBC, HCG #### [address] [place] [address] Coin Machine Assembler: Luis A Peng MD Staging: Normal [facility] Comment on above: Result Comment: Stag e 1: Some kidney damage normal GFR Stage 2: Mild kidney damage GFR 60-89 Stage 3: Moderate kidney damage GFR 30-59 Stage 4: Severe kidney damage GFR 15-29 Stage 5: Severe kidney damage GFR <15 ESRD - chronic treatment by dialysis or transplant Performed By: #### P HEP, HIVCMB #### [address] [address] [employer] Machine Assembler: Alvino Davila MD #### CP, CBC, HCG #### [address] [place] [address] Coin Machine Assembler: Luis A Peng MD Urea nitrogen [Mass/Vol] 7 mg/dL Normal 6-20 [facility] Comment on above: Performed By: #### P HEP, HIVCMB #### [facility] [address] [place] [address] Coin Machine Assembler: Alvino Davila MD #### CP, CBC, HCG #### [address] [place] [id number] Coin Machine Assembler: Luis A Peng MD Comprehensive Metabolic Pane liu 12-06-2020 Albumin [Mass/Vol] 4.6 g/dL 3.5 - 5.2 g/dL [place], [place] Albumin/Globulin [Mass ratio] 1.6 {ratio} [place], [place] ALP [Catalytic activity/Vol] 81 U/L 35 - 104 U/L [place] ALT [Catalytic activity/Vol] 39 U/L High 5 - 33 U/L [place] Anion gap [Moles/Vol] 12 mmol/L 9 - 17 mmol/L [place] AST [Catalytic activity/Vol] 28 U/L <32 [place] Bilirubin Ql (U) 0.26 mg/dL Low 0.3 - 1.2 mg/dL [place], [place] Bun/Cre Ratio 14 [place] Calcium [Mass/Vol] 10.1 mg/dL 8.6 - 10.4 mg/dL [place] Chloride [Moles/Vol] 101 mmol/L 98 - 107 mmol/L [place] CO2 [Moles/Vol] 26 mmol/L 20 - 31 mmol/L [place] Creatinine [Mass/Vol] 0.49 mg/dL Low 0.5 - 0.9 mg/dL [place] GFR >60 >60 mL/min [place] GFR Non- >60 >60 mL/min [place] Glucose [Mass/Vol] 101 mg/dL High 70 - 99 mg/dL [place], [place] Interpretation and review of laboratory results Abnormal [place] Potassium [Moles/Vol] 4.2 mmol/L 3.7 - 5.3 mmol/L [place] Protein [Mass/Vol] 7.5 g/dL 6.4 - 8.3 g/dL [place] Sodium [Moles/Vol] 139 mmol/L 135 - 144 mmol/L [place] Urea nitrogen [Mass/Vol] 7 mg/dL 6 - 20 mg/dL [place], [place] HCG Qualitative, Serumon hCG Qual Negative NEGATIVE [place], [place] Comment on above: Specimens with hCG l evels near the threshold of the test (25 mIU/mL) may give a negative or indeterminate result. In such cases, another test should be performed with a new specimen in 48-72 hours. If early is suspected clinically in this setting, correlation with quantitative serum b-hCG level is suggested. [facility] [employer] has confirmed the use of plasma for this test. This has not been cleared or approved by the U.S. Food and Drug Administration. The FDA has determined that such clearance is not necessary. HCG Screen, Bloodon 12-06-19 21 HCG Qn Negative Normal NEG [facility] Comment on above: Result Comment: Spec imens with hCG levels near the threshold of the test (25 mIU/mL) may give a negative or indeterminate result. In such cases, another test should be performed with a new specimen in 48-72 hours. If early is suspected clinically in this setting, correlation with quantitative serum b-hCG level is suggested. [facility] has confirmed the use of plasma for this test. This has not been cleared or approved by the U.S. Food and Drug Administration. The FDA has determined that such clearance is not necessary. Performed By: #### P HEP, HIVCMB #### [facility] [address] [place], [place] [phone] [employer]: Alvino Davila MD #### CP, CBC, HCG #### [address] [place] [address] [employer]er: Luis A Peng MD HIV Ag/Abon 12-06-2020 HIV Ag/Ab NONREACTIVE Normal NR [facility] Comment on above: Result Comment: No l aboratory evidence of HIV infection. If acute HIV infection is suspected, consider testing for HIV-1 RNA. Performed By: #### P HEP, HIVCMB #### [id number] [place] [address] [employer]er: Alvino Davila MD #### CP, CBC, HCG #### [address] [place] [address] [employer]er: Luis A Peng MD HIV Screenon 12-06-2020 HIV Ag/Ab NONREACTIVE NONREACTIVE [place] Comment on above: No laboratory eviden ce of HIV infection. If acute HIV infection is suspected, consider testing for HIV-1 RNA. Hepatitis Acute [facility] 12-06 Hep A Ab,IgM NONREACTIVE Normal NR [facility] Comment on above: Performed By: #### P HEP, HIVCMB #### [address] [phone] [employer]: Alvino Davila MD #### CP, CBC, HCG #### [address] [place], [place] [phone] [employer]: Luis A Peng MD Hep B Core Ab,IgM NONREACTIVE Normal [facility] Comment on above: Performed By: #### P HEP, HIVCMB #### [address] [phone] [employer]: Alvino Davila MD #### CP, CBC, HCG #### [address] [place], [place] [phone] [employer]: Luis A Peng MD Hep B Surf Ag NONREACTIVE Normal NR [facility] Comment on above: Performed By: #### P HEP, HIVCMB #### [address] [phone] [employer]: Alvino Davila MD #### CP, CBC, HCG #### [address] [place] [address] [employer]er: Luis A Peng MD Hep C Ab REACTIVE Abnormal NR [facility] Comment on above: Result Comment: [...] By: #### P HEP, HIVCMB #### [address] [phone] [employer]: Alvino Davila MD #### CP, CBC, HCG #### [address] [place] [address] [employer]er: Luis A Peng MD Hepatitis Panel, Acuteon HAV IgM IA Qn (S) NONREACTIVE NONREACTIVE [place], [place] Hep B Core Ab, IgM NONREACTIVE NONREACTIVE [place] Hepatitis B Surface Ag NONREACTIVE NONREACTIVE [place] Hepatitis C Ab REACTIVE Abnormal [facility]ACT[facility] [place] [place] Comment on above: The hepatitis C [...] Interpretation and review of laboratory results Abnormal [place] Metabolic Panelon 12-06-2020 GFR/1.73 sq M predicted among non-blacks MDRD (S/P/Bld) [Vol rate/Area] [place], [place] Comment on above: Stage 1: Some [...] body mass. Additional eGFR calculator available at: http://www.kwiry.Solafeet/multiple_crcl_2011.htm CBCon 05-30-2020 Erythrocyte distribution width (RBC) [Ratio] 12.7 % Normal 11.8-14.4 [facility] Comment on above: Performed By: #### C P, HCG, CBC #### [facility] [address] [place] [address] [employer]er: Luis A Peng MD #### HIVCMB, PHEP #### [address] [phone] [employer]er: Alvino Davila MD Hematocrit (Bld) [Volume fraction] 39.2 % Normal 36.3-47.1 [facility] Comment on above: Performed By: #### C P, HCG, CBC #### [facility] [address] [place] [address] Dr. [place] [phone] [employer]: Luis A Peng MD #### HIVCMB, PHEP #### [address] [phone] [employer]: Alvino Davila MD Hemoglobin (Bld) [Mass/Vol] 12.3 g/dL Normal 11.9-15.1 [facility] Comment on above: Performed By: #### C P, HCG, CBC #### [address] [place] [phone] [employer]: Luis A Peng MD #### HIVCMB, PHEP #### [place] [phone] [employer]er: Alvino Davila MD MCH (RBC) [Entitic mass] 26.2 pg Normal 25.2-33.5 [facility] Comment on above: Performed By: #### C P, HCG, CBC #### [address] [place] [phone] [employer]: Luis A Peng MD #### HIVCMB, PHEP #### [address] [phone] [employer]: Alvino Davila MD MCHC (RBC) [Mass/Vol] 31.4 g/dL Normal 28.4-34.8 [facility] Comment on above: Performed By: #### C P, HCG, CBC #### [address] [place] [phone] [employer]: Luis A Peng MD #### HIVCMB, PHEP #### [address] [phone] [employer]: Avlino Davila MD MCV (RBC) [Entitic vol] 83.6 fL Normal 82.6-102.9 [facility] Comment on above: Performed By: #### C P, HCG, CBC #### [facility] [address] [place] [address] [place] [address] [employer]er: Luis A Peng MD #### HIVCMB, PHEP #### [address] [phone] [employer]: Alvino Davila MD NRBC Automated 0.0 per 100 WBC Normal 0.0 [facility] Comment on above: Performed By: #### C P, HCG, CBC #### [facility] [address] [place] [address] [place] [phone] [employer]: Luis A Peng MD #### HIVCMB, PHEP #### [address] [phone] [employer]: Alvino Davila MD Platelet mean volume (Bld) [Entitic vol] 10.9 fL Normal 8.1-13.5 [facility] Comment on above: Performed By: #### C P, HCG, CBC #### [facility] [address] [place] [address] [place] [phone] [employer]: Luis A Peng MD #### HIVCMB, PHEP #### [address] [phone] [employer]: Alvino Davila MD Platelets (Bld) [#/Vol] 277 10*3/uL Normal 138-453 [facility] Comment on above: Performed By: #### C P, HCG, CBC #### [facility] [address] [place] [address] [place], [place] [phone] [employer]: Luis A Peng MD #### HIVCMB, PHEP #### [address] [place], [place] [phone] [employer]: Alvino Davila MD RBC (Bld) [#/Vol] 4.69 10*6/uL Normal 3.95-5.11 [facility] Comment on above: Performed By: #### C P, HCG, CBC #### [facility] [address] [place] [address] [employer]er: Luis A Peng MD #### HIVCMB, PHEP #### [facility] [address] [place], [place] [phone] [employer]er: Alvino Davila MD WBC (Bld) [#/Vol] 5.5 10*3/uL Normal 3.5-11.3 [facility] Comment on above: Performed By: #### C P, HCG, CBC #### [facility] [address] [place] [address] [place] [address] [employer]er: Luis A Peng MD #### HIVCMB, PHEP #### [id number] [place], [place] [phone] [employer]er: Alvino Davila MD Erythrocyte distribution width (RBC) [Ratio] 12.7 % 11.8 - 14.4 % [place] Hematocrit (Bld) [Volume fraction] 39.2 % 36.3 - 47.1 % [place] Hemoglobin (Bld) [Mass/Vol] 12.3 g/dL 11.9 - 15.1 g/dL [place] MCH (RBC) [Entitic mass] 26.2 pg 25.2 - 33.5 pg [place] MCHC (RBC) [Mass/Vol] 31.4 g/dL 28.4 - 34.8 g/dL [place] MCV (RBC) [Entitic vol] 83.6 fL 82.6 - 102.9 fL [place] Platelet mean volume (Bld) [Entitic vol] 10.9 fL 8.1 - 13.5 fL [place] Platelets (Bld) [#/Vol] 277 10*3/uL [place] RBC (Bld) [#/Vol] 4.69 10*6/uL 3.95 - 5.11 m/uL [place] WBC (Bld) [#/Vol] 5.5 10*3/uL [place] WBC (Bld) [#/Vol] 0.0 10*3/uL 0.0 per 100 WBC M [place], [place] Comp Metabolic Profon 2019 (cont.) Normal [facility] Comment on above: Result Comment: Aver age GFR for 20-29 years old: 116 mL/min/1.73sq m Chronic Kidney Disease: <60 mL/min/1.73sq m Kidney failure: <15 mL/min/1.73sq m eGFR calculated using average adult body mass. Additional eGFR calculator available at: http://www.[employer]/multiple_crcl_2011.htm Performed By: #### C P, HCG, CBC #### [facility] [address] [place] [address] [employer]er: Luis A Peng MD #### HIVCMB, PHEP #### [facility] [employer] [address] [place] [phone] [employer]: Alvino Davila MD Albumin [Mass/Vol] 3.4 g/dL Low 3.5-5.2 [facility] Comment on above: Performed By: #### C P, HCG, CBC #### [facility] [address] [place] [address] [employer]er: Luis A Peng MD #### HIVCMCody, PHEP #### [facility] [employer] [facility] [place] [address] [employer]er: Alvino Davila MD Albumin/Globulin [Mass ratio] 1.1 {ratio} Normal 1.0-2.5 [facility] Comment on above: Performed By: #### C P, HCG, CBC #### [facility] [address] [place] [address] [employer]er: Luis A Peng MD #### HIVCMB, PHEP #### [address] [phone] [employer]: Alvino Davila MD Alkaline Phos 130 U/L High 35-104 [facility] Comment on above: Performed By: #### C P, HCG, CBC #### [facility] [address] [place] [address] Dr. [place], [place] [phone] [employer]: Luis A Peng MD #### HIVCMB, PHEP #### [address] [phone] [employer]: Alvino Davila MD ALT [Catalytic activity/Vol] 33 U/L Normal 5-33 [facility] Comment on above: Performed By: #### C P, HCG, CBC #### [address] [place], [place] [phone] [employer]: Luis A Peng MD #### HIVCMB, PHEP #### [address] [phone] [employer]: Alvino Davila MD Anion gap [Moles/Vol] 7 mmol/L Low 9-17 [facility] Comment on above: Performed By: #### C P, HCG, CBC #### [facility] [address] [place] [address] Dr. [place], [place] [phone] [employer]: Luis A Peng MD #### HIVCMB, PHEP #### [address] [phone] [employer]: Alvino Davila MD AST [Catalytic activity/Vol] 35 U/L High <32 [facility] Comment on above: Performed By: #### C P, HCG, CBC #### [facility] [address] [place] [address] [place] [address] [employer]: Luis A Peng MD #### HIVCMB, PHEP #### [id number] [place], [place] [phone] [employer]er: Alvino Davila MD Bilirubin Ql (U) 0.16 mg/dL Low 0.3-1.2 [facility] Comment on above: Performed By: #### C P, HCG, CBC #### [facility] [address] [place] [address] [address] [place] [phone] [employer]: Luis A Peng MD #### HIVCMB, PHEP #### [place] [phone] [employer]er: Alvino Davila MD BUN/CRE Ratio 14 Normal 9-20 [facility] Comment on above: Performed By: #### C P, HCG, CBC #### [address] [place] [phone] [employer]: Luis A Peng MD #### HIVCMB, PHEP #### [place] [phone] [employer]: Alvino Davila MD Calcium [Mass/Vol] 9.2 mg/dL Normal 8.6-10.4 [facility] Comment on above: Performed By: #### C P, HCG, CBC #### [address] [place] [phone] [employer]: Luis A Peng MD #### HIVCMB, PHEP #### [address] [phone] [employer]: Alvino Davila MD Chloride [Moles/Vol] 99 mmol/L Normal 98-107 [facility] Comment on above: Performed By: #### C P, HCG, CBC #### [address] [place] [phone] [employer]: Luis A Peng MD #### HIVCMB, PHEP #### [address] [place], [place] [phone] [employer]er: Alvino Davila MD CO2 [Moles/Vol] 29 mmol/L Normal 20-31 [facility] Comment on above: Performed By: #### C P, HCG, CBC #### [facility] [address] [place], [place] [phone] [employer]: Luis A Peng MD #### HIVCMB, PHEP #### [address] [phone] [employer]: Alvino Davila MD Creatinine [Mass/Vol] 0.63 mg/dL Normal 0.50-0.90 [facility] Comment on above: Performed By: #### C P, HCG, CBC #### [address] [place] [phone] [employer]: Luis A Peng MD #### HIVCMB, PHEP #### [address] [phone] [employer]: Alvino Davila MD GFR, Amer >60 Normal >60 [facility] Comment on above: Performed By: #### C P, HCG, CBC #### [facility] [address] [place] [address] Dr. [place], [place] [phone] [employer]: Luis A Peng MD #### HIVCMB, PHEP #### [address] [phone] [employer]: Alvino Davila MD GFR,non Amer >60 Normal >60 [facility] Comment on above: Performed By: #### C P, HCG, CBC #### [facility] [address] [place], [place] [phone] [employer]: Luis A Peng MD #### HIVCMB, PHEP #### [address] [phone] [employer]: Alvino Davila MD Glucose [Mass/Vol] 95 mg/dL Normal 70-99 [facility] Comment on above: Performed By: #### C P, HCG, CBC #### [facility] [address] [place] [address] Dr. [place], [place] [phone] [employer]: Luis A Peng MD #### HIVCMB, PHEP #### [address] [phone] [employer]: Alvino Davila MD Potassium [Moles/Vol] 4.3 mmol/L Normal 3.7-5.3 [facility] Comment on above: Performed By: #### C P, HCG, CBC #### [facility] [address] [place] [address] Dr. [place], [place] [phone] [employer]: Luis A Peng MD #### HIVCMB, PHEP #### [address] [phone] [employer]: Alvino Davila MD Protein [Mass/Vol] 6.5 g/dL Normal 6.4-8.3 [facility] Comment on above: Performed By: #### C P, HCG, CBC #### [facility] [address] [place] [address] Dr. [place], [place] [phone] [employer]: Luis A Peng MD #### HIVCMB, PHEP #### [address] [phone] [employer]: Alvino Davila MD Sodium [Moles/Vol] 135 mmol/L Normal 135-144 [facility] Comment on above: Performed By: #### C P, HCG, CBC #### [address] [place], [place] [phone] [employer]: Luis A Peng MD #### HIVCMB, PHEP #### [address], [place] [phone] [employer]er: Alvino Davila MD Staging: Normal [facility] Comment on above: Result Comment: Stag e 1: Some kidney damage normal GFR Stage 2: Mild kidney damage GFR 60-89 Stage 3: Moderate kidney damage GFR 30-59 Stage 4: Severe kidney damage GFR 15-29 Stage 5: Severe kidney damage GFR <15 ESRD - chronic treatment by dialysis or transplant Performed By: #### C P, HCG, CBC #### [facility] [address] [place] [address] [employer]er: Luis A Peng MD #### HIVCMB, PHEP #### [address] [place], [place] [phone] [employer]er: Alvino Davila MD Urea nitrogen [Mass/Vol] 9 mg/dL Normal 6-20 [facility] Comment on above: Performed By: #### C P, HCG, CBC #### [facility] [address] [place] [address] [employer]er: Luis A Peng MD #### HIVCMB, PHEP #### [facility] [address] [place], [place] [phone] [employer]er: Alvino Davila MD [facility] Metabolic Pane [facility] 05-30-2020 Albumin [Mass/Vol] 3.4 g/dL Low 3.5 - 5.2 g/dL [place], [place] Albumin/Globulin [Mass ratio] 1.1 {ratio} [place], [place] ALP [Catalytic activity/Vol] 130 U/L High 35 - 104 U/L [place] ALT [Catalytic activity/Vol] 33 U/L 5 - 33 U/L [place] Anion gap [Moles/Vol] 7 mmol/L Low 9 - 17 mmol/L [place] AST [Catalytic activity/Vol] 35 U/L High <32 [place], [place] Bilirubin Ql (U) 0.16 mg/dL Low 0.3 - 1.2 mg/dL [place], [place] Bun/Cre Ratio 14 [place] Calcium [Mass/Vol] 9.2 mg/dL 8.6 - 10.4 mg/dL [place], [place] Chloride [Moles/Vol] 99 mmol/L 98 - 107 mmol/L [place] CO2 [Moles/Vol] 29 mmol/L 20 - 31 mmol/L [place] Creatinine [Mass/Vol] 0.63 mg/dL 0.5 - 0.9 mg/dL [place] GFR >60 >60 mL/min [place] GFR Non- >60 >60 mL/min [place] Glucose [Mass/Vol] 95 mg/dL 70 - 99 mg/dL [place] Interpretation and review of laboratory results Abnormal [place] Potassium [Moles/Vol] 4.3 mmol/L 3.7 - 5.3 mmol/L [place] Protein [Mass/Vol] 6.5 g/dL 6.4 - 8.3 g/dL [place] Sodium [Moles/Vol] 135 mmol/L 135 - 144 mmol/L [place], [place] Urea nitrogen [Mass/Vol] 9 mg/dL 6 - 20 mg/dL [place] HCG Qualitative, Serumon hCG Qual Negative NEGATIVE [place] Comment on above: Specimens with hCG l evels near the threshold of the test (25 mIU/mL) may give a negative or indeterminate result. In such cases, another test should be performed with a new specimen in 48-72 hours. If early is suspected clinically in this setting, correlation with quantitative serum b-hCG level is suggested. [facility] [employer] has confirmed the use of plasma for this test. This has not been cleared or approved by the U.S. Food and Drug Administration. The FDA has determined that such clearance is not necessary. HCG Screen, Bloodon 05-30-20 20 HCG Qn Negative Normal NEG [facility] Comment on above: Result Comment: Spec imens with hCG levels near the threshold of the test (25 mIU/mL) may give a negative or indeterminate result. In such cases, another test should be performed with a new specimen in 48-72 hours. If early is suspected clinically in this setting, correlation with quantitative serum b-hCG level is suggested. [facility] has confirmed the use of plasma for this test. This has not been cleared or approved by the U.S. Food and Drug Administration. The FDA has determined that such clearance is not necessary. Performed By: #### C P, HCG, CBC #### [address] [place], [place] [phone] [employer]: Luis A Peng MD #### HIVCMB, PHEP #### [facility] [address] [place], [place] [phone] [employer]: Alvino Davila MD HIV Ag/Abon 05-30-2020 HIV Ag/Ab NONREACTIVE Normal NR [facility] Comment on above: Result Comment: No l aboratory evidence of HIV infection. If acute HIV infection is suspected, consider testing for HIV-1 RNA. Performed By: #### C P, HCG, CBC #### [address] [place], [place] [phone] [employer]: Luis A Peng MD #### HIVCMB, PHEP #### [facility] [address] [place], [place] [phone] [employer]: Alvino Davila MD HIV Screenon 05-30-2020 HIV Ag/Ab NONREACTIVE NONREACTIVE [place] Comment on above: No laboratory eviden ce of HIV infection. If acute HIV infection is suspected, consider testing for HIV-1 RNA. Hepatitis Acute [facility] 05-30 Hep A Ab,IgM NONREACTIVE Normal NR [facility] Comment on above: Performed By: #### C P, HCG, CBC #### [address] [place] [address] [employer]: Luis A Peng MD #### HIVCMB, PHEP #### [facility] [address] [place], [place] [phone] [employer]er: Alvino Davila MD Hep B Core Ab,IgM NONREACTIVE Normal [facility] Comment on above: Performed By: #### C P, HCG, CBC #### [facility] [address] [place] [address] Dr. [place], [place] [phone] [employer]: Luis A Peng MD #### HIVCMB, PHEP #### [address] [phone] [employer]er: Alvino Davila MD Hep B Surf Ag NONREACTIVE Normal [facility] Comment on above: Performed By: #### C P, HCG, CBC #### [facility] [address] [place] [address] Dr. [place], [place] [phone] [employer]: Luis A Peng MD #### HIVCMB, PHEP #### [address] [phone] [employer]: Alvino Davila MD Hep C Ab NONREACTIVE Normal [facility] Comment on above: Result Comment: The [...] By: #### C P, HCG, CBC #### [address] [place], [place] [phone] [employer]: Luis A Peng MD #### HIVCMB, PHEP #### [address] [phone] [employer]: Alvino Davila MD Hepatitis Panel, [facility] HAV IgM IA Qn (S) NONREACTIVE NONREACTIVE [facility], [place] Hep B Core Ab, IgM NONREACTIVE NONREACTIVE [facility], [place] Hepatitis B Surface Ag NONREACTIVE NONREACTIVE [facility], [place] Hepatitis C Ab NONREACTIVE NONREACTIVE [facility], [place] Comment on above: The hepatitis C procedure [...] predicted among non-blacks MDRD (S/P/Bld) [Vol rate/Area] [place], [place] Comment on above: Stage 1: Some [...] body mass. Additional eGFR calculator available at: http://www.[employer]/multiple_crcl_2012.htm CBCon 01-01-2020 Erythrocyte distribution width (RBC) [Ratio] 12.5 % Normal 11.8-14.4 [facility] Comment on above: Performed By: #### P HEP, HIVCMB #### [address] [phone] [employer]: Alvino Davila MD #### LAURA, CBC, HCG #### [address] [place] [address] [employer]er: Luis A Peng MD Hematocrit (Bld) [Volume fraction] 40.2 % Normal 36.3-47.1 [facility] Comment on above: Performed By: #### P HEP, HIVCMB #### [address] [phone] [employer]: Alvino Davila MD #### LAURA, CBC, HCG #### [address] [place] [phone] [employer]: Luis A Peng MD Hemoglobin (Bld) [Mass/Vol] 13.1 g/dL Normal 11.9-15.1 [facility] Comment on above: Performed By: #### P HEP, HIVCMB #### [address] [phone] [employer]: Alvino Davila MD #### CP, CBC, HCG #### [address] [place] [phone] [employer]: Luis A Peng MD MCH (RBC) [Entitic mass] 28.4 pg Normal 25.2-33.5 [facility] Comment on above: Performed By: #### P HEP, HIVCMB #### [address] [phone] [employer]: Alvino Davila MD #### CP, CBC, HCG #### [address] [place] [address] [employer]er: Luis A Peng MD MCHC (RBC) [Mass/Vol] 32.6 g/dL Normal 28.4-34.8 [facility] Comment on above: Performed By: #### P HEP, HIVCMB #### [address] [phone] [employer]: Alvino Davila MD #### CP, CBC, HCG #### [address] [place] [address] [employer]er: Luis A Peng MD MCV (RBC) [Entitic vol] 87.2 fL Normal 82.6-102.9 [facility] Comment on above: Performed By: #### P HEP, HIVCMB #### [address] [phone] [employer]: Alvino Davila MD #### CP, CBC, HCG #### [address] [place] [phone] [employer]: Luis A Peng MD NRBC Automated 0.0 per 100 WBC Normal 0.0 [facility] Comment on above: Performed By: #### P HEP, HIVCMB #### [address] [phone] [employer]: Alvino Davila MD #### CP, CBC, HCG #### [address] [place] [phone] [employer]: Luis A Peng MD Platelet mean volume (Bld) [Entitic vol] 11.2 fL Normal 8.1-13.5 [facility] Comment on above: Performed By: #### P HEP, HIVCMB #### [address] [phone] [employer] Machine [employer]er: Alvino Davila MD #### CP, CBC, HCG #### [address] [place] [phone] [employer] Machine Assembler: Luis A Peng MD Platelets (Bld) [#/Vol] 241 10*3/uL Normal 138-453 [facility] Comment on above: Performed By: #### P HEP, HIVCMB #### [address] [phone] [employer] Machine Assembler: Alvino Davila MD #### CP, CBC, HCG #### [address] [place] [phone] [employer] Machine Assembler: Luis A Peng MD RBC (Bld) [#/Vol] 4.61 10*6/uL Normal 3.95-5.11 [facility] Comment on above: Performed By: #### P HEP, HIVCMB #### [address] [phone] [employer] Machine Assembler: Alvino Davila MD #### CP, CBC, HCG #### [address] [place] [address] [employer] Machine Assembler: Luis A Peng MD WBC (Bld) [#/Vol] 9.0 10*3/uL Normal 3.5-11.3 [facility] Comment on above: Performed By: #### P HEP, HIVCMB #### [facility] [address] [place], [place] [phone] [employer] Machine Assembler: Alvino Davila MD #### CP, CBC, HCG #### [facility] [address] [place] [address] Coin Machine Assembler: Luis A Peng MD Erythrocyte distribution width (RBC) [Ratio] 12.5 % 11.8 - 14.4 % [place], [place] Hematocrit (Bld) [Volume fraction] 40.2 % 36.3 - 47.1 % [place] Hemoglobin (Bld) [Mass/Vol] 13.1 g/dL 11.9 - 15.1 g/dL [place] MCH (RBC) [Entitic mass] 28.4 pg 25.2 - 33.5 pg [place] MCHC (RBC) [Mass/Vol] 32.6 g/dL 28.4 - 34.8 g/dL [place] MCV (RBC) [Entitic vol] 87.2 fL 82.6 - 102.9 fL [place] Platelet mean volume (Bld) [Entitic vol] 11.2 fL 8.1 - 13.5 fL [place] Platelets (Bld) [#/Vol] 241 10*3/uL [place] RBC (Bld) [#/Vol] 4.61 10*6/uL 3.95 - 5.11 m/uL [place] WBC (Bld) [#/Vol] 0.0 10*3/uL 0.0 per 100 WBC [place] WBC (Bld) [#/Vol] 9.0 10*3/uL [place] Comp Metabolic Profon 2019 (cont.) Normal [facility] Comment on above: Result Comment: Aver age GFR for 20-29 years old: 116 mL/min/1.73sq m Chronic Kidney Disease: <60 mL/min/1.73sq m Kidney failure: <15 mL/min/1.73sq m eGFR calculated using average adult body mass. Additional eGFR calculator available at: http://www.[employer]/multiple_crcl_2012.htm Performed By: #### P HEP, HIVCMB #### [address] [phone] [employer] Machine Assembler: Alvino Davila MD #### CP, CBC, HCG #### [facility] [address] [place] [address] [employer] Machine Assembler: Luis A Peng MD Albumin [Mass/Vol] 4.2 g/dL Normal 3.5-5.2 [facility] Comment on above: Performed By: #### P HEP, HIVCMB #### [address] [phone] [employer] Machine Assembler: Alvino Davila MD #### CP, CBC, HCG #### [facility] [address] [place] [address] [employer] Machine Assembler: Luis A Peng MD Albumin/Globulin [Mass ratio] 1.7 {ratio} Normal 1.0-2.5 [facility] Comment on above: Performed By: #### P HEP, HIVCMB #### [address] [phone] [employer] Assembler: Alvino Daivla MD #### CP, CBC, HCG #### [facility] [address] [place] [address] [employer] Machine Assembler: Luis A Peng MD Alkaline Phos 69 U/L Normal 35-104 [facility] Comment on above: Performed By: #### P HEP, HIVCMB #### [address] [phone] [employer] Assembler: Alvino Davila MD #### CP, CBC, HCG #### [facility] [address] [place] [phone] [employer] Assembler: Luis A Peng MD ALT [Catalytic activity/Vol] 78 U/L High 5-33 [facility] Comment on above: Performed By: #### P HEP, HIVCMB #### [address] [phone] [employer] Machine Assembler: Alvino Davila MD #### CP, CBC, HCG #### [facility] [address] [place] [phone] [employer] Assembler: Luis A Peng MD Anion gap [Moles/Vol] 9 mmol/L Normal 9-17 [facility] Comment on above: Performed By: #### P HEP, HIVCMB #### [address] [address] [employer] Assembler: Alvino Davila MD #### CP, CBC, HCG #### [facility] [address] [place] [phone] [employer] Machine Assembler: Luis A Peng MD AST [Catalytic activity/Vol] 44 U/L High <32 [facility] Comment on above: Performed By: #### P HEP, HIVCMB #### [address] [phone] [employer] Machine Assembler: Alvino Davila MD #### CP, CBC, HCG #### [facility] [address] [place] [phone] [employer] Machine Assembler: Luis A Peng MD Bilirubin Ql (U) 0.15 mg/dL Low 0.3-1.2 [facility] Comment on above: Performed By: #### P HEP, HIVCMB #### [address] [address] [employer] Assembler: Alvino Davila MD #### CP, CBC, HCG #### [facility] [address] [place], [place] [phone] [employer] Machine Assembler: Luis A Peng MD BUN/CRE Ratio 20 Normal 9-20 [facility] Comment on above: Performed By: #### P HEP, HIVCMB #### [address] [address] [employer] Assembler: Alvino Davila MD #### CP, CBC, HCG #### [facility] [address] [place], [place] [phone] [employer] Machine Assembler: Luis A Peng MD Calcium [Mass/Vol] 9.4 mg/dL Normal 8.6-10.4 [facility] Comment on above: Performed By: #### P HEP, HIVCMB #### [address] [address] [employer] Machine Assembler: Alvino Davila MD #### CP, CBC, HCG #### [address] [place], [place] [phone] [employer] Machine Assembler: Luis A Peng MD Chloride [Moles/Vol] 97 mmol/L Low 98-107 [facility] Comment on above: Performed By: #### P HEP, HIVCMB #### [address] [address] [employer] Machine Assembler: Alvino Davila MD #### CP, CBC, HCG #### [address] [place], [place] [phone] [employer] Machine Assembler: Luis A Peng MD CO2 [Moles/Vol] 28 mmol/L Normal 20-31 [facility] Comment on above: Performed By: #### P HEP, HIVCMB #### [address] [address] [employer] Machine Assembler: Alvino Davila MD #### CP, CBC, HCG #### [facility] [address] [place], [place] [phone] Coin Machine Assembler: Luis A Peng MD Creatinine [Mass/Vol] 0.55 mg/dL Normal 0.50-0.90 [facility] Comment on above: Performed By: #### P HEP, HIVCMB #### [address] [address] [employer] Machine Assembler: Alvino Davila MD #### CP, CBC, HCG #### [address] [place], [place] [phone] [employer] Machine Assembler: Luis A Peng MD GFR, Amer >60 Normal >60 [facility] Comment on above: Performed By: #### P HEP, HIVCMB #### [address] [phone] [employer] Machine Assembler: Alvino Davila MD #### CP, CBC, HCG #### [address] [place], [place] [phone] [employer] Machine Assembler: Luis A Peng MD GFR,non Amer >60 Normal >60 [facility] Comment on above: Performed By: #### P HEP, HIVCMB #### [address] [address] [employer] Machine Assembler: Alvino Davila MD #### CP, CBC, HCG #### [address] [place], [place] [phone] [employer] Machine Assembler: Luis A Peng MD Glucose [Mass/Vol] 85 mg/dL Normal 70-99 [facility] Comment on above: Performed By: #### P HEP, HIVCMB #### [address] [address] [employer] Machine Assembler: Alvino Davila MD #### CP, CBC, HCG #### [address] [place] [address] Coin Machine Assembler: Luis A Peng MD Potassium [Moles/Vol] 4.3 mmol/L Normal 3.7-5.3 [facility] Comment on above: Performed By: #### P HEP, HIVCMB #### [id number] [place] [address] Coin Machine Assembler: Alvino Davila MD #### CP, CBC, HCG #### [facility] [address] [place] [address] [place] [place], [place] [phone] [employer] Machine Assembler: Luis A Peng MD Protein [Mass/Vol] 6.7 g/dL Normal 6.4-8.3 [facility] Comment on above: Performed By: #### P HEP, HIVCMB #### [address] [address] Coin Machine Assembler: Alvino Davila MD #### CP, CBC, HCG #### [address] [place] [address] Coin Machine Assembler: Luis A Peng MD Sodium [Moles/Vol] 134 mmol/L Low 135-144 [facility] Comment on above: Performed By: #### P HEP, HIVCMB #### [address] [address] [employer] Machine Assembler: Alvino Davila MD #### CP, CBC, HCG #### [address] [place] [phone] Coin Machine Assembler: Luis A Peng MD Staging: Normal [facility] Comment on above: Result Comment: Stag e 1: Some kidney damage normal GFR Stage 2: Mild kidney damage GFR 60-89 Stage 3: Moderate kidney damage GFR 30-59 Stage 4: Severe kidney damage GFR 15-29 Stage 5: Severe kidney damage GFR <15 ESRD - chronic treatment by dialysis or transplant Performed By: #### P HEP, HIVCMB #### [address] [phone] [employer] Machine Assembler: Alvino Davila MD #### CP, CBC, HCG #### [facility] [address] [place] [address] Coin Machine Assembler: Luis A Peng MD Urea nitrogen [Mass/Vol] 11 mg/dL Normal 6-20 [facility] Comment on above: Performed By: #### P HEP, HIVCMB #### [facility] [address] [place], [place] [phone] Coin Machine Assembler: Alvino Davila MD #### CP, CBC, HCG #### [facility] [address] [place] [address] Coin Machine Assembler: Luis A Peng MD Comprehensive Metabolic Pane [facility] 01-01-2020 Albumin [Mass/Vol] 4.2 g/dL 3.5 - 5.2 g/dL [place], [place] Albumin/Globulin [Mass ratio] 1.7 {ratio} [place], [place] ALP [Catalytic activity/Vol] 69 U/L 35 - 104 U/L [place] ALT [Catalytic activity/Vol] 78 U/L High 5 - 33 U/L [place] Anion gap [Moles/Vol] 9 mmol/L 9 - 17 mmol/L [place] AST [Catalytic activity/Vol] 44 U/L High <32 [place] Bilirubin Ql (U) 0.15 mg/dL Low 0.3 - 1.2 mg/dL [place], [place] Bun/Cre Ratio 20 [place] Calcium [Mass/Vol] 9.4 mg/dL 8.6 - 10.4 mg/dL [place] Chloride [Moles/Vol] 97 mmol/L Low 98 - 107 mmol/L [place] CO2 [Moles/Vol] 28 mmol/L 20 - 31 mmol/L [place] Creatinine [Mass/Vol] 0.55 mg/dL 0.5 - 0.9 mg/dL [place] GFR >60 >60 mL/min [place] GFR Non- >60 >60 mL/min [place] Glucose [Mass/Vol] 85 mg/dL 70 - 99 mg/dL [place] Interpretation and review of laboratory results Abnormal [place] Potassium [Moles/Vol] 4.3 mmol/L 3.7 - 5.3 mmol/L [place] Protein [Mass/Vol] 6.7 g/dL 6.4 - 8.3 g/dL [place] Sodium [Moles/Vol] 134 mmol/L Low 135 - 144 mmol/L [place] Urea nitrogen [Mass/Vol] 11 mg/dL 6 - 20 mg/dL [place] HCG Qualitative, Serumon hCG Qual Negative NEGATIVE [place] Comment on above: Specimens with hCG l evels near the threshold of the test (25 mIU/mL) may give a negative or indeterminate result. In such cases, another test should be performed with a new specimen in 48-72 hours. If early is suspected clinically in this setting, correlation with quantitative serum b-hCG level is suggested. [facility] has confirmed the use of plasma for this test. This has not been cleared or approved by the U.S. Food and Drug Administration. The FDA has determined that such clearance is not necessary. HCG Screen, Bloodon 01-01-20 20 HCG Qn Negative Normal NEG [facility] Comment on above: Result Comment: Spec imens with hCG levels near the threshold of the test (25 mIU/mL) may give a negative or indeterminate result. In such cases, another test should be performed with a new specimen in 48-72 hours. If early is suspected clinically in this setting, correlation with quantitative serum b-hCG level is suggested. [facility] use [facility] for this test. This has not been cleared or approved by the U.S. Food and Drug Administration. The FDA has determined that such clearance is not necessary. Performed By: #### P HEP, HIVCMB #### [facility] [address] [place] [address] Coin Machine Assembler: Alvino Davila MD #### CP, CBC, HCG #### [facility] [address] [place], [place] [phone] Coin Machine Assembler: Luis A Peng MD HIV Ag/Abon 01-01-2020 HIV Ag/Ab NONREACTIVE Normal [facility] Comment on above: Result Comment: No l aboratory evidence of HIV infection. If acute HIV infection is suspected, consider testing for HIV-1 RNA. Performed By: #### P HEP, HIVCMB #### [address] [place] [address] Coin Machine Assembler: Alvino Davila MD #### CP, CBC, HCG #### [address] [place] [address] Coin Machine Assembler: Luis A Peng MD HIV Screenon 01-01-2020 HIV Ag/Ab NONREACTIVE NONREACTIVE [place], [place] Comment on above: No laboratory eviden ce of HIV infection. If acute HIV infection is suspected, consider testing for HIV-1 RNA. Hepatitis Acute [facility] 12-31 Hep A Ab,IgM NONREACTIVE Normal [facility] Comment on above: Performed By: #### P HEP, HIVCMB #### [address] [phone] Coin Machine Assembler: Alvino Davila MD #### CP, CBC, HCG #### [address] [place], [place] [phone] Coin Machine Assembler: Luis A Peng MD Hep B Core Ab,IgM NONREACTIVE Normal [facility] Comment on above: Performed By: #### P HEP, HIVCMB #### [address] [phone] Coin Machine Assembler: Alvino Davila MD #### CP, CBC, HCG #### [address] [place], [place] [phone] Coin Machine Assembler: Luis A Peng MD Hep B Surf Ag NONREACTIVE Normal [facility] Comment on above: Performed By: #### P HEP, HIVCMB #### [address] [place] [phone] Coin Machine Assembler: Alvino Davila MD #### CP, CBC, HCG #### [facility] [address] [place] [address] [place] [address] Coin Machine Assembler: Luis A Peng MD Hep C Ab NONREACTIVE Normal NR [facility] Comment on above: Result Comment: [...] Performed By: #### P HEP, HIVCMB #### [address] [place] [address] Coin Machine Assembler: Alvino Davila MD #### CP, CBC, HCG #### [facility] [address] [place] [address] [place] [address] Coin Machine Assembler: Luis A Peng MD Hepatitis Panel, Acuteon HAV IgM IA Qn (S) NONREACTIVE NONREACTIVE [place] Hep B Core Ab, IgM NONREACTIVE NONREACTIVE [place] Hepatitis B Surface Ag NONREACTIVE NONREACTIVE [place] Hepatitis C Ab NONREACTIVE NONREACTIVE [place] Comment on above: The hepatitis C [...] predicted among non-blacks MDRD (S/P/Bld) [Vol rate/Area] [place] Comment on above: Stage 1: Some [...] body mass. Additional eGFR calculator available at: http://www.[employer]/multiple_crcl_2012.htm Encounters Encounter Date Encounter Type Care Provider Facility Start: 04-06-2025 End: 04-06-2025 ambulatory Not Available Start: 01-22-2025 End: 01-22-2025 Clinis[facility] Result Encounter Mee Yary DO Work Phone: [facility] Unsolicited Start: 01-22-2025 End: 01-22-2025 [facility] Result Encounter Mee Yary DO Work Phone: [facility] Unsolicited Start: 11-29-2024 End: 11-29-2024 [facility] Result Encounter Mee Yary DO Work Phone: [facility] Unsolicited Start: 11-29-2024 End: 11-29-2024 [facility] Result Encounter Mee Yary DO Work Phone: [facility] Unsolicited Start: 12-10-2022 End: 12-10-[address] JOYCE MORRELL Facility:[facility] Start: 09-02-2022 End: 09-03-2022 ambulatory ROMEO GAR Facility:[facility] Start: 07-29-2022 End: 07-29-2022 ambulatory LUCINA MARCELINO Facility:[facility] Start: 07-11-2022 End: 07-12-[address] BROOKE STEWART Facility:[facility] Start: 06-15-2022 End: 06-15-[address] JOYCE MORRELL Facility:[facility] Start: 05-11-2022 End: 05-11-[address] MALLY POTTER Facility:[facility] Start: 03-27-2021 End: 03-28-2021 ambulatory Rody Monk MD Facility:[facility] Start: 12-06-2020 End: 12-07-[address] [facility] Start: 12-06-2020 End: 12-06-2020 Subsequent hospital visit by physician [facility] Start: 11-11-2020 End: 11-12-[address] [facility] Start: 05-30-2020 End: 05-31-[address] [facility] Start: 05-30-2020 End: 05-30-2020 Subsequent hospital visit by physician [facility] Start: 01-01-2020 End: 01-02-[address] [facility] Start: 01-01-2020 End: 01-01-2020 Subsequent hospital visit by physician [facility] Start: 09-20-2018 End: 09-21-2018 Patient encounter procedure Sidney Nava Facility:[id number] Procedures Date Procedure Procedure Detail Performing Clinician Start: 01-22-2025 US OB L= 14 WEEKS FETUS Mee Yary DO Work Phone: Start: 11-29-2024 [facility] PREG QUANT HCG Core y Yary DO Work Phone: Start: 12-06-2020 Acute hepatitis panel E rnest Catrina Work Phone: Start: 12-06-2020 Antibody hiv-1&hiv-2 single result Malini Catrina Work Phone: Start: 12-06-2020 Blood count complete automated Malini Catrina Work Phone: Start: 12-06-2020 Comprehensive metabo lic panel Malini Catrina Work Phone: Start: 12-06-2020 Gonadotropin chorion ic [...] Treatment Date Care Activity Detail Author Start: 07-02-2024 Influenza vaccination Influenza Vacc ine (#1) [facility] Start: 2022 Screening for malign ant neoplasm of cervix [facility] Start: 07-02-2020 Influenza vaccination Flu vaccine (# 1) [facility] [place] Start: 2013 Screening for malign ant neoplasm of cervix Pap Smear [facility] Payers Date Payer Category Payer Medicaid (Managed Care) [facility] MEDICA[facility] [id number] 2021 Unknown 2019 Unknown [facility] xxxxxxxxxxxx 2019-Present [phone] [place] [id number] xxxxxxxxxxxx [id number] 2019 Unknown [facility] [id number] 2019-Present [phone] [place] [id number] 1992 Unknown [id number] [id number]. 173 1992 Unknown [id number] [id number]. 173 1992 Unknown [id number] 2.16840.1.480533.3.579.2. 173 1992 Unknown [id number] 2.16.840.1.411217.3.579.2. 173 1992 Unknown [id number] 2.16.840.1.739082.3.579.2. 196 1992 Unknown [id number] 2.16840.1.169304.3.579.2. 593 1992 Unknown [id number] 2.16.840.1.743423.3.579.2. 593 1992 Unknown [id number] 2.16.840.1.458602.3.579.2. 593 1992 Unknown [id number] 2.16.840.1.258515.3.579.2. 593 1992 Unknown [id number] 2.16.840.1.391675.3.579.2. 593 1992 Unknown [id number] 2.16.840.1.026327.3.579.2. 593 1992 Unknown [id number] [id number]. 1259 1959 Unknown [id number] Social History Date Type Detail Facility Tobacco smoking stat [facility] [place] if ever smoked [place] Start: 1992 Sex Assigned At Not on file [place] Start: 04-23-2023 Tobacco smoking stat [facility] Smokes tobacco daily [facility] History of tobacco use Cigarette Smoker [facility] Start: 04-23-2023 Tobacco use and exposure Smokeless tobacco non-user [facility] Start: 04-23-2023 Alcoholic beverage intake Lifetime non-drinker (finding) [facility] Start: 04-23-2023 Tobacco Comment Smokes 6-10 ci garettes per day [facility] Gender identity Not on file [facility] are Summary Purpose Family History No Family History Records FoundNo Family History Records FoundNo Family History Records FoundNo Family History Records FoundNo Family History Records Found Advance Directives No Advanced Directives Records FoundDocuments on File Type Date Recorded Patient Base Draw Operator Expl anation Advance Directives and Living Will Power of Configuration Analyst Documents on File Type Date Recorded Patient Base Draw Operator Expl anation ACP-Advance Directive ACP-Power of Configuration Analyst Additional Source Comments INFORMATION SOURCE (unrecogn ized section and content) DATE CREATED AUTHOR 10/10/2018 [facility] DATE CREATED AUTHOR AUTHOR'S ORGANIZ ATION 12/06/2020 [facility] DATE CREATED AUTHOR AUTHOR'S ORGANIZ ATION 03/29/2021 [facility] DATE CREATED AUTHOR AUTHOR'S ORGANIZ ATION 12/10/2022 [facility] DATE CREATED AUTHOR AUTHOR'S ORGANIZ ATION 04/07/2025 [facility] dical Specialists [facility] FOR RECORDS PERTAINING TO PATIENTS WHO ARE [...] BE BASED ON THE PRIMARY CLINICAL RECORDS. [facility] [employer] provides no warranty or guarantee of the accuracy or completeness of information in this document.
== END 2025-04-09 10:25 | disposition home or self-care (01) ==
LOC: US 10:25
PROVIDERS: PCP Nurse Practitioner Family; Visit Provider Physician Assistant
DX: Z36.89 Encounter for other specified antenatal screening (principal); Z3A.24 24 weeks gestation of pregnancy
CPT/HCPCS: 76805; 76817

== ENCOUNTER 2025-05-21 11:15 | Outpatient (OUT) | payer OTHER, SELFPAY ==
--- OUTSIDE RECORDS SUMMARY | 2019-12-25 20:00 | XMS_ITS | Continuity of Care Document ---
Author Organization [facility] Address [address] [place] [address] Phone Care Team Providers Care Rope Laying Machine Operator Name Role Phone Pavlock DO, Max Unavailable [...] drug services- Acute Deto x Acute Detox Library Associate Acute Detox Library Associate DRUG TEST PRSMV DIR OPT OBS URINE TEST Acute Detox Library Associate Advance Directives Directive Yes / No Effective Date File Name No Information Encounters Encounter Description Practice Location Reason(s) For Visit Diagnoses Date Provider Providers Copied on Encounter [facility], [address] [place] [address], [id number] , tel: [phone] [facility] Detox Opioid dependence with withdrawalAlcohol dependence with withdrawal, uncomplicated 0 Pavlock DO Max. [address] [place] [address], [id number] , [place]. tel: [phone] [facility], [address] [place] [address], [id number] , tel: [phone] [facility] Detox Opioid dependence with withdrawal 0 Pavlock DO Max. [address] [place] [address], [id number] , [place]. tel: [phone] [facility], [address] [place], [place], [id number] , [place] tel: [phone] [facility] Detox Opioid dependence with withdrawal Feb-2 0 Pavlock DO Max. [address] [place], [place], [id number] , [place]. tel: [phone] [facility], [address] [place], [place], [id number] , [place] tel: [phone] [facility] Detox alcohol and heroin dependence (chief complaint) Opioid dependence with withdrawalAlcohol dependence with withdrawal, uncomplicated Feb-2 0 [place] Ayala. [address] [place], [place], [id number] , [place]. tel: [phone] [facility], [address] [place] [address], [id number] , [place] tel: [phone] [facility] Detox Opioid dependence with withdrawal Feb-2 0 Pavlock DO Max. [address] [place], [place], [id number] , [place]. tel: [phone] [facility], [address] [place] [address], [id number] , [place] tel: [phone] [facility] Detox Opioid dependence with withdrawalEncounter for test, result negative b-2 0 Pavlock DO Max. [address] [place], [place], [id number] , [place]. tel: [phone] Family History Family Member Type Diagnosis Age At Onset No Information Payers Payer name Insurance type Covered democrat ID Homar sellers(s) [facility], 1928–1983 [id number] Social History Type Description Quantity Date Captured [...]
--- OUTSIDE RECORDS SUMMARY | 2025-05-16 11:00 | XMS_ITS | Encounter Summary ---
Author Organization [facility] Address [address] [place] [address] Care Team Providers Care Paper Box Cutter Name Role Phone Unavailable Primary Care Provider Unavailabl e Reason for Visit * Reason Comments Routine Visit Encounter Details Date Type Department Care Team (Late st Contact Info) Description 05/16/2025 11:00 AM EDT Routine [facility] [address] [place] [address] Tony Pringle, DO [address] [place] [address] 29 weeks gestation of ([facility]); Third trimester ([facility]); Request for sterilization; H/O opioid abuse ([facility]); History of placental abruption Social History Tobacco Use Types Packs/Day Years [...] Sign Reading Time Taken Comments Blood Pressure 110/70 05/16/2025 10:59 AM EDT Pulse - - Temperature - - Respiratory Rate - - Oxygen Saturation - - Inhaled Oxygen Concentration - - Weight 72.1 kg (159 lb) 05/16/2025 10:59 AM EDT Height - - Body Mass Index 26.46 12/09/2022 12:00 PM EST documented in this encounter Progress Notes * Raine Aguilar LPN - 05/16/2025 11:00 AM EDT Reason for Appointment: Patient ID: Carmelita [...] (HCC) BMI 28.0-28.9,adult Drug abuse, opioid type ([facility]) Encounter for follow-up Encounter for gynecological examination (general) (routine) without abnormal findings Labial cyst Pain pelvic HISTORY PAST MEDICAL HISTORY SOCIAL HISTORY Past Medical History: Diagnosis Date Abscess of labia Bipolar disorder (HCC) BMI 28.0-28.9,adult Drug abuse, opioid type ([facility]) Encounter for follow-up Encounter for gynecological examination [...] nursing note reviewed. Exam conducted with a weaving loom operator present. Vitals: Estimated body mass index is 26.46 kg/m?? as calculated from the following: Height as of 12/09/22: 5' 5 . Weight as of this encounter: 159 lb. BP: 110/70 No LMP recorded. Patient is . ASSESSMENT & PLAN ICD-10-CM 1. 29 weeks gestation of ([facility]) Z3A.29 POCT urinalysis dipstick manually resulted 2. Third trimester ([facility]) Z34.93 POCT urinalysis dipstick manually resulted 3. Request for sterilization Z30.2 4. H/O opioid abuse ([facility]) F11.11 5. History of placental abruption Z87.59 Return OB: Patient presents today for a routine obstetrics appointment. Patient is currently 29w4d . Patient states she is doing well but has complaints of being tired due to current . Patient has verbalizes frequent movement. labor precautions was discussed/given and patient was instructed to perform kick counts three times a day. Pt will be delivered between 36-37 weeks. Pt given NST/BPP orders to start at 32 weeks. Pt advised to have growth obtained. Pt to come off work d/t multiple appt and maternal exhaustion during Orders Placed This Encounter Procedures POCT urinalysis dipstick manually resulted Follow Up: Patient is to return to office in 2 week for routine OB appointment. Documented by Raine Aguilar LPN on behalf of: Tony Pringle DO documented in this encounter Plan of Treatment Upcoming Encounters Date Type Department Care Team (Late st Contact Info) Description 05/30/2025 10:30 AM EDT Ancillary Procedure [facility] [address] [place] [id number] 05/30/2025 11:20 AM EDT Routine [facility] [address] [place] [address] Paradise Townsend PA [address] [place] [address] Scheduled Orders Name Type Priority Associated Diagnoses Orde r Schedule US biophysical profile w non stress test Imaging Routine H/O opioid abuse ([facility]) History of placental abruption Expected: 05/16/2025 (Approximate), Expires: 11/16/2025 documented as of this encounter Procedures Procedure Name Priority Date/Time Associated Diagnosis Comments POCT URINALYSIS DIPSTICK Routine 05/16/2025 11:03 AM EDT 29 weeks gestation of ([facility]) Third trimester ([facility]) documented in this encounter Results * (ABNORMAL) POCT urinalysis dipstick manually resulted (05/16/2025 11:03 AM EDT) Color, UA Yellow Clarity, UA [...] 1.0 0.2 - 12 mg/dL Leukocytes, UA Moderate Negative - 500+++ Camille/mcL Nitrite, UA Negative Negative - Positive Urine 05/16/2025 11:0 3 AM EDT Result [facility] Tony Pringle DO POINT OF CARE TEST ENTER/EDIT OR DERABLES Final Result documented in this encounter Visit Diagnoses Diagnosis 29 weeks gestation of ([facility]) Third trimester ([facility]) state, incidental Request for sterilization H/O opioid abuse ([facility]) History of placental abruption documented in this encounter
--- OUTSIDE RECORDS SUMMARY | 2025-05-21 11:20 | XMS_ITS | Encounter Summary ---
Author Organization [facility] Address [address] [place] [address] Care Team Providers Care It Consulting Director Name Role Phone Unavailable Primary Care Provider Unavailabl e Encounter Details Date Type Department Care Team (Late st Contact Info) Description 07/05/2015 Abstract [facility] [address] [place] [address] Tony Pringle, [address] [place], [facility]11 Social History Tobacco Use Types Packs/Day Years [...] 05/30/2025 10:30 AM EDT Ancillary Procedure [facility] [address] [place] [address] 05/30/2025 11:20 AM EDT Routine [facility] [address] [place] [id number] Paradise Townsend PA [address] [facility] [address] [place], [facility]11 documented as of this encounter Visit Diagnoses Not on filedocumented in this encounter
--- OUTSIDE RECORDS SUMMARY | 2025-05-21 11:20 | XMS_ITS | Encounter Summary ---
Author Organization [facility] Address [address] [place] [address] Care Team Providers Care Build Manager Name Role Phone Unavailable Primary Care Provider Unavailabl e Encounter Details Date Type Department Care Team (Late st Contact Info) Description 07/09/2015 Abstract [facility] [address] [place] [address] Tony Pringle, [address] [place], [facility]11 Social History Tobacco Use Types Packs/Day Years [...] 05/30/2025 10:30 AM EDT Ancillary Procedure [facility] [address] [facility] [place] [address] 05/30/2025 11:20 AM EDT Routine [facility] [address] [facility] [place] [place] [id number] Paradise Townsend PA [address] [place], [facility]11 documented as of this encounter Visit Diagnoses Not on filedocumented in this encounter
--- OUTSIDE RECORDS SUMMARY | 2025-05-21 11:20 | XMS_ITS | Encounter Summary ---
Author Organization [facility] Address [address] [place] [address] Care Team Providers Care Salesperson Fashion Accessories Name Role Phone Unavailable Primary Care Provider Unavailabl e Encounter Details Date Type Department Care Team (Late st Contact Info) Description 05/16/[address] [facility] [address] [place] [address] Tony Pringle, DO [address] [facility] [place] [address] Social History Tobacco Use Types Packs/Day Years [...] 05/30/2025 10:30 AM EDT Ancillary Procedure [facility] [address] [place] [address] [place] [address] 05/30/2025 11:20 AM EDT [facility] [address] [place] [address] [place] [address] Paradise Townsend PA [address] [place] [address] [place], [place] [id number] documented as of this encounter Visit Diagnoses Not on filedocumented in this encounter
--- OUTSIDE RECORDS SUMMARY | 2025-05-21 11:43 | XMS_ITS | CCD ---
Author Organization [facility] Care Team Providers Care Communications Superintendent Name Role Phone Sidney Nava Unavailable Unavailable Unavailable Primary Care Provider Unavailabl e Unavailable Primary Care Provider Unavailabl e CATRINA, MALINI Referring Unavailable CATRINA, MALINI Referring Unavailable CATRINA, MALINI Referring Unavailable CATRINA, MALINI Referring Unavailable Rody Monk MD Attending Unavailable KARMICHAEL, DR COOK Admitting Unavailable REQUEST, DR NONE LISTED Primary Care Unavaila ble KARASIK, DR COOK Consulting Unavailable KARASIK, DR COOK Attending Unavailable KARASIK, DR COOK Consulting Unavailable CONG, ROMEO Primary Care Unavailable KARASIK, DR COOK Attending Unavailable KARASIK, DR COOK Admitting Unavailable CONG, ROMEO Consulting Unavailable CONG, ROMEO Attending Unavailable CONG, ROMEO Admitting Unavailable CONG, ROMEO Primary Care Unavailable CHARI, LUCINA Attending Unavailable CONG, ROMEO Primary Care Unavailable CRISTHIAN OLVERA Consulting Unavailable LUCINA MARCELINO Admitting Unavailable PAY, DR BAL Admitting Unavailable REQUEST, NONE LISTED Primary Care Unavaila ble OSO, CRISTHIAN SPAIN Consulting Unavailable PAY, DR BAL Attending Unavailable REQUEST, NONE LISTED Primary Care Unavaila ble KARASIK, DR COOK Consulting Unavailable KARASIK, DR COOK Attending Unavailable KARASIK, DR COOK Admitting Unavailable ZIEBER, DR MAYUR Noriega Consulting Unavailable Unavailable Primary Care Provider Unavailcrystal e MEE PRINGLE Attending Unavailable MEE PRINGLE Attending Unavailable MEE PRINGLE Attending Unavailable Allergies Allergy Classification Reported Allergen(s) Allergy Type Date of Onset Reaction(s) Facility (1 source) Penicillins Drug allergy (disorder) 04-10-[address] [facility] Repository (12 sources) Penicillin G Drug Allergy 01-25-2025 [facility] Work Phone: Medications Current Medications Medication Drug Class(es) Dates Sig (Normalized) Sig (Original) buprenorphine 8 mg / naloxone 2 mg sublingual film (12 sources) Partial Opioid Agonist, Opioid Antagonist Start: 03-27-2025 Suboxone 8-[address] 1 Film under the tongue Daily 03/27/2025 Active gabapentin 100 mg oral capsule (12 sources) Anti-epileptic Agent gabapentin (Neurontin) 100 MG capsule as directed for 9 days Active magnesium oxide 400 mg oral tablet (10 sources) Start: 04-13-2025 End: 04-13-2026 take 1 tablet by mouth once daily magnesium oxide (Mag-Ox) 400 MG tablet Indications: headache in second trimester (HHS-HCC) Take 1 tablet (400 mg) by mouth Daily 30 tablet 11 04/13/2025 04/13/2026 Active QUEtiapine 50 mg oral tablet (12 sources) Atypical Antipsychotic Start: 03-23-2025 take 1 tablet by mouth at bedtime QUEtiapine (SEROquel) 50 MG tablet Take 50 mg by mouth at bedtime 03/23/2025 Active Problems Active Problems Problem Classification Problem Date Documented Date Episodic/Chronic Anxiety disorders (1 source) Anxiety disorder, unspecified; Translations: [ANXIETY DISORDER UNSPECIFIED] Onset: 07-31-2022 Chronic Contraceptive and procreative management (4 sources) Sterilization requested; Translations: [Encounter for sterilization] 05-02-2025 Episodic Menstrual disorders (1 source) Missed period; Translations: [Irregular menstruation, unspecified] 04-06-2025 Chronic Other complications of (1 source) Headache; Translations: [Other specified related conditions, second trimester] 04-13-2025 Episodic Other female genital disorders (4 sources) Other specified conditions associated with female genital organs and menstrual cycle; Translations: [OTH SPEC COND FE GEN ORG MENST CYCL] Onset: 12-10-2022 Episodic Other and delivery including normal (8 sources) ; Translations: [Encounter for supervision of normal , unspecified, unspecified trimester] 04-06-2025 Episodic Other screening for suspected conditions (not mental disorders or infectious disease) (6 sources) Encounter for screening for malignant neoplasm of cervix; Translations: [Patient encounter status] Onset: 06-15-2022 Episodic Residual codes; unclassified (2 sources) Gestation period, 25 weeks; Translations: [25 weeks gestation of ] 04-18-2025 Episodic Residual codes; unclassified (2 sources) Gestation period, 27 weeks; Translations: [27 weeks gestation of ] 05-02-2025 Episodic Residual codes; unclassified (4 sources) History of placental abruption; Translations: [Personal history of other complications of , childbirth and the puerperium] 05-02-2025 Episodic Residual codes; unclassified (2 sources) Gestation period, 29 weeks; Translations: [29 weeks gestation of ] 05-16-2025 Episodic Substance-related disorders (6 sources) Nicotine dependence, cigarettes, uncomplicated; Translations: [Opioid abuse, uncomplicated] Onset: 05-12-2022 05-02-2025 Chronic Unclassified (2 sources) LOW BACK PAIN, [...] 07-31-2022 Episodic Other aftercare (5 sources) Other intermediate (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 therapy; Translations: [OTH FASHION ADVISER CURRENT DRUG THERAPY] Onset: 07-31-2022 Episodic Other nervous system disorders (1 source) Atypical facial pain; Translations: [ATYPICAL FACIAL PAIN] Onset: 05-12-2022 Episodic Ovarian cyst (1 source) Unspecified ovarian [...] Name Value Interpretation Reference Range Facil ity Urinalysis macro (dipstick) panel (U)on 05-16-2025 Bilirubin, UA Negative Negative - 4(70) +++ mg/dL [facility] Blood, UA Negative Negative - 50 Amador/mcL [facility] Healthcare Clarity, UA Clear [facility] Color, UA Yellow [facility] Glucose, UA Negative Negative - 1999(110) ++++ mg/dL [facility] Interpretation and review of laboratory results Abnormal [facility] Ketones, UA Negative Negative - 160(16) ++++ mg/dL [facility] Leukocytes, UA Moderate Negative - 500+++ Camille/mcL [facility] Nitrite, UA Negative Negative - Positive [facility] pH, UA 6.5 5 - 9 [facility] Protein, UA Negative Negative - 1999(20) ++++ mg/dL [facility] Healthcare Spec Grav, UA 1.02 1 - 1.03 [facility] Urobilinogen, UA 1.0 0.2 - 12 mg/dL [facility] Urinalysis macro (dipstick) panel (U)on 04-18-2025 Bilirubin, UA Negative Negative - 4(70) +++ mg/dL [facility] Blood, UA Negative Negative - 50 Amador/mcL [facility] Healthcare Clarity, UA Clear [facility] Color, UA Yellow [facility] Glucose, UA Negative Negative - 1999(110) ++++ mg/dL [facility] Interpretation and review of laboratory results Abnormal [facility] Ketones, UA Negative Negative - 160(16) ++++ mg/dL [facility] Leukocytes, UA Positive Negative - 500+++ Camille/mcL [facility] Nitrite, UA Negative Negative - Positive [facility] pH, UA 7.5 5 - 9 [facility] Protein, UA Negative Negative - 1999(20) ++++ mg/dL [facility] Healthcare Spec Grav, UA 1.015 1 - 1.03 [facility] Urobilinogen, UA 0.2 0.2 - 12 mg/dL [facility] No Panel InformationOrdered By: Radiologist Radiology on 04-09-2025 [facility] Work Phone: No Panel Informationon 04-09 Radiology Study observation (narrative) [facility] US OB ANATOMYon 04-09-2025 [place] [address] Ultrasound Report Signed Patient: CARMELITA CASON MR#: [id number] : 1990 Acct:[id number] Age/Sex: 34 / F ADM Date: 04/09/25 Loc: US Attending Dr: Paradise Olvera Ordering Physician: Paradise Olvera Date of Service: 04/09/25 Procedure(s): US OB anatomy Accession Number(s): [id number] cc: Paradise Olvera; ROMEO GAR [facility] [address] [place], [place] [id number] Patient Name: CARMELITA CASON MRN: [id number] date: 1990 Sex: F Assigned Patient Location: US Current Patient Location: US Accession/Order Number: [id number] Exam Date: 04/09/2025 12:20 Report Date: 04/09/2025 13:01 At the request of: PARADISE OLVERA Procedure: US OB anatomy CLINICAL DATA: Screening for anatomy COMPARISON: 01/22/2025 ULTRASOUND OB ANATOMY There is a single live intrauterine gestation in cephalic presentation. The amniotic fluid volume is subjectively normal. There is a posterior placenta. A placental band was noted. There is cardiac and somatic activity with heart rate of 135 bpm. The neural axis and all 4 extremities were surveyed by the sprinkler fitter helper. No abnormalities were detected. The stomach, bladder, kidneys, three-vessel cord with insertion, four-chamber heart with right and left outflow tracts, diaphragm, facial features and reported male genitalia were seen. The following measurements were obtained: Biparietal diameter 6.1cm 24 weeks 4 days 57% Head circumference 22.7 cm 24 weeks 5 days 46% Abdominal circumference 20.6 cm 25 weeks 1 day 69% Femur length 4.0 cm 23 weeks 0 days 8% The composite ultrasound age based on these measurements is 24 weeks 3 days +/- 1 week 5 days. The estimated date of delivery is July 27, 2025. This correlates with dates based on the prior. The estimated weight is 1 lb. 8 oz. +/- 4 ounces (42%) US/US OB anatomy IMPRESSION: SINGLE LIVE INTRAUTERINE GESTATION WITH ULTRASOUND AGE OF 24 WEEKS 3 DAYS. UNREMARKABLE ANATOMY SURVEY INCIDENTAL PLACENTAL BAND ULTRASOUND OB CERVICAL LENGTH The cervix was evaluated with the transvaginal probe. The cervix is closed and measures approximately 3.5 cm in diameter. There is no evidence of previa. IMPRESSION: CLOSED CERVIX, UNREMARKABLE IN APPEARANCE. Impression dictated by: Raine Zelaya M.D. 04/09/2025 1:01 PM Dictation Location: [place] [address] Electronically authenticated by: [id number] Y Date: 04/09/2025 13:01 Dictated By: Raine Zelaya M.D. Signed By: 04/09/25 1304 DD/ 1301 TD/TT: Last Repairer: [facility] Radiology, Radiologist, MD - 04/09/[address] [address] Ultrasound Report Signed Patient: CARMELITA CASON MR#: [id number] : 1990 Acct:[id number] Age/Sex: 34 / F ADM Date: 04/09/25 Loc: US Attending Dr: Paradise Olvera Ordering Physician: Paradise Olvera Date of Service: 04/09/25 Procedure(s): US OB anatomy Accession Number(s): [id number] cc: Paradise Olvera; ROMEO GAR The [address] [address] Patient Name: CARMELITA CASON MRN: [facility]:[id number] date: 1990 Sex: F Assigned Patient Location: US Current Patient Location: US Accession/Order Number: [id number] Exam Date: 04/09/2025 12:20 Report Date: 04/09/2025 13:01 At the request of: PARADISE OLVERA Procedure: US OB anatomy CLINICAL DATA: Screening for anatomy COMPARISON: 01/22/2025 ULTRASOUND OB ANATOMY There is a single live intrauterine gestation in cephalic presentation. The amniotic fluid volume is subjectively normal. There is a posterior placenta. A placental band was noted. There is cardiac and somatic activity with heart rate of 135 bpm. The neural axis and all 4 extremities were surveyed by the sprinkler fitter helper. No abnormalities were detected. The stomach, bladder, kidneys, three-vessel cord with insertion, four-chamber heart with right and left outflow tracts, diaphragm, facial features and reported male genitalia were seen. The following measurements were obtained: Biparietal diameter 6.1cm 24 weeks 4 days 57% Head circumference 22.7 cm 24 weeks 5 days 46% Abdominal circumference 20.6 cm 25 weeks 1 day 69% Femur length 4.0 cm 23 weeks 0 days 8% The composite ultrasound age based on these measurements is 24 weeks 3 days +/- 1 week 5 days. The estimated date of delivery is July 27, 2025. This correlates with dates based on the prior. The estimated weight is 1 lb. 8 oz. +/- 4 ounces (42%) US/US OB anatomy IMPRESSION: SINGLE LIVE INTRAUTERINE GESTATION WITH ULTRASOUND AGE OF 24 WEEKS 3 DAYS. UNREMARKABLE ANATOMY SURVEY INCIDENTAL PLACENTAL BAND ULTRASOUND OB CERVICAL LENGTH The cervix was evaluated with the transvaginal probe. The cervix is closed and measures approximately 3.5 cm in diameter. There is no evidence of previa. IMPRESSION: CLOSED CERVIX, UNREMARKABLE IN APPEARANCE. Impression dictated by: Raine Zelaya M.D. 04/09/2025 1:01 PM Dictation Location: [place] [address] Electronically authenticated by: [id number] Y Date: 04/09/2025 13:01 Dictated By: Raine Zelaya M.D. Signed By: 04/09/25 1304 DD/ 1301 TD/TT: Last Repairer: [facility] [place] [address] Ultrasound Report Signed Patient: CARMELITA CASON MR#: [id number] : 1990 Acct:[id number] Age/Sex: 34 / F ADM Date: 04/09/25 Loc: US Attending Dr: Paradise Olvera Ordering Physician: Paradise Olvera Date of Service: 04/09/25 Procedure(s): US OB cervical length Accession Number(s): [id number] cc: Paradise Olvera; ROMEO GAR [place] [address] Patient Name: CARMELITA CASON MRN: [id number] date: 1990 Sex: F Assigned Patient Location: Current Patient Location: Accession/Order Number: [id number] Exam Date: 04/09/2025 12:20 Report Date: 04/09/2025 13:01 At the request of: PARADISE OLVERA Procedure: US OB anatomy CLINICAL DATA: Screening for anatomy COMPARISON: 01/22/2025 ULTRASOUND OB ANATOMY There is a single live intrauterine gestation in cephalic presentation. The amniotic fluid volume is subjectively normal. There is a posterior placenta. A placental band was noted. There is cardiac and somatic activity with heart rate of 135 bpm. The neural axis and all 4 extremities were surveyed by the sprinkler fitter helper. No abnormalities were detected. The stomach, bladder, kidneys, three-vessel cord with insertion, four-chamber heart with right and left outflow tracts, diaphragm, facial features and reported male genitalia were seen. The following measurements were obtained: Biparietal diameter 6.1cm 24 weeks 4 days 57% Head circumference 22.7 cm 24 weeks 5 days 46% Abdominal circumference 20.6 cm 25 weeks 1 day 69% Femur length 4.0 cm 23 weeks 0 days 8% The composite ultrasound age based on these measurements is 24 weeks 3 days +/- 1 week 5 days. The estimated date of delivery is July 27, 2025. This correlates with dates based on the prior. The estimated weight is 1 lb. 8 oz. +/- 4 ounces (42%) US/US OB cervical length IMPRESSION: SINGLE LIVE INTRAUTERINE GESTATION WITH ULTRASOUND AGE OF 24 WEEKS 3 DAYS. UNREMARKABLE ANATOMY SURVEY INCIDENTAL PLACENTAL BAND ULTRASOUND OB CERVICAL LENGTH The cervix was evaluated with the transvaginal probe. The cervix is closed and measures approximately 3.5 cm in diameter. There is no evidence of previa. IMPRESSION: CLOSED CERVIX, UNREMARKABLE IN APPEARANCE. Impression dictated by: Raine Zelaya M.D. 04/09/2025 1:01 PM Dictation Location: [place] [address] Electronically authenticated by: [id number] Y Date: 04/09/2025 13:01 Dictated By: Raine Zelaya M.D. Signed By: 04/09/25 1304 DD/ 1301 TD/TT: Last Repairer: [facility] Radiology, Radiologist, MD - 04/09/[address] [address] Ultrasound Report Signed Patient: CARMELITA CASON MR#: [id number] : 1990 Acct:[id number] Age/Sex: 34 / F ADM Date: 04/09/25 Loc: US Attending Dr: Paradise Olvera Ordering Physician: Paradise Olvera Date of Service: 04/09/25 Procedure(s): US OB cervical length Accession Number(s): [id number] cc: Paradise Olvera; ROMEO GAR The [address] [address] Patient Name: CARMELITA CASON MRN: [id number] date: 1990 Sex: F Assigned Patient Location: US Current Patient Location: US Accession/Order Number: [id number] Exam Date: 04/09/2025 12:20 Report Date: 04/09/2025 13:01 At the request of: PARADISE OLVERA Procedure: US OB anatomy CLINICAL DATA: Screening for anatomy COMPARISON: 01/22/2025 ULTRASOUND OB ANATOMY There is a single live intrauterine gestation in cephalic presentation. The amniotic fluid volume is subjectively normal. There is a posterior placenta. A placental band was noted. There is cardiac and somatic activity with heart rate of 135 bpm. The neural axis and all 4 extremities were surveyed by the sprinkler fitter helper. No abnormalities were detected. The stomach, bladder, kidneys, three-vessel cord with insertion, four-chamber heart with right and left outflow tracts, diaphragm, facial features and reported male genitalia were seen. The following measurements were obtained: Biparietal diameter 6.1cm 24 weeks 4 days 57% Head circumference 22.7 cm 24 weeks 5 days 46% Abdominal circumference 20.6 cm 25 weeks 1 day 69% Femur length 4.0 cm 23 weeks 0 days 8% The composite ultrasound age based on these measurements is 24 weeks 3 days +/- 1 week 5 days. The estimated date of delivery is July 27, 2025. This correlates with dates based on the prior. The estimated weight is 1 lb. 8 oz. +/- 4 ounces (42%) US/US OB cervical length IMPRESSION: SINGLE LIVE INTRAUTERINE GESTATION WITH ULTRASOUND AGE OF 24 WEEKS 3 DAYS. UNREMARKABLE ANATOMY SURVEY INCIDENTAL PLACENTAL BAND ULTRASOUND OB CERVICAL LENGTH The cervix was evaluated with the transvaginal probe. The cervix is closed and measures approximately 3.5 cm in diameter. There is no evidence of previa. IMPRESSION: CLOSED CERVIX, UNREMARKABLE IN APPEARANCE. Impression dictated by: Raine Zelaya M.D. 04/09/2025 1:01 PM Dictation Location: [place] [address] Electronically authenticated by: [id number] Y Date: 04/09/2025 13:01 Dictated By: Raine Zelaya M.D. Signed By: 04/09/25 1304 DD/ 1301 TD/TT: Last Repairer: [facility] HCG ( test) Ql (U)O rdered By: Arabella Hill on 04-06-2025 Interpretation and review of laboratory results Abnormal [facility] Preg Test, Ur Positive Negative [facility] Urinalysis macro (dipstick) panel (U)on 04-06-2025 Bilirubin, UA Negative Negative - 4(70) +++ mg/dL [facility] Blood, UA Negative Negative - 50 Amador/mcL [facility] Clarity, UA Clear [facility] Color, UA Yellow [facility] Glucose, UA Negative Negative - 1999(110) ++++ mg/dL [facility] Interpretation and review of laboratory results Normal [facility] Ketones, UA Negative Negative - 160(16) ++++ mg/dL [facility] Leukocytes, UA Negative Negative - 500+++ Camille/mcL [facility] Nitrite, UA Negative Negative - Positive [facility] pH, UA 6.5 5 - 9 [facility] Protein, UA Negative Negative - 2000(20) ++++ mg/dL [facility] Spec Grav, UA 1.02 1 - 1.03 [facility] Urobilinogen, UA 1.0 0.2 - 12 mg/dL [facility] US OB L= 14 WEEKS FETUSon The [address] [address] Ultrasound Report Signed Patient: CARMELITA CASON MR#: [id number] : 1990 Acct:[id number] Age/Sex: 34 / F ADM Date: 01/22/25 Loc: US Attending Dr: Mee Pringle D.O. Ordering Physician: Mee Pringle D.O. Date of Service: 01/22/25 Procedure(s): US OB <= 14 weeks fetus Accession Number(s): [id number] cc: ROMEO GAR ; Mee Pringle D.O. The [place] [id number] Patient Name: CARMELITA CASON MRN: [facility]:[id number] date: 1990 Sex: F Assigned Patient Location: US Current Patient Location: US Accession/Order Number: [id number] Exam Date: 01/22/2025 14:49 Report Date: 01/22/2025 [...] Sorto Jr., D.O.01/22/2025 2:50 PM Dictation Location: [place] [address] Electronically authenticated by: [id number] Y Date: 01/22/2025 14:50 Dictated By: Serafin Sorto M.D. Signed By: 01/22/25 1453 DD/ 1450 TD/TT: Last Repairer: [facility] Radiology, Radiologist, MD - 01/22/2025 [place] [address] Ultrasound Report Signed Patient: CARMELITA CASON MR#: [id number] : 1990 Acct:[id number] Age/Sex: 34 / F ADM Date: 01/22/25 Loc: US Attending Dr: Mee Pringle D.O. Ordering Physician: Mee Pringle D.O. Date of Service: 01/22/25 Procedure(s): US OB <= 14 weeks fetus Accession Number(s): [id number] cc: ROMEO GAR ; Mee Pringle D.O. [place] [id number] Patient Name: CARMELITA CASON MRN: [facility]:[id number] date: 1990 Sex: F Assigned Patient Location: US Current Patient Location: US Accession/Order Number: [id number] Exam Date: 01/22/2025 14:49 Report Date: 01/22/2025 [...] Sorto Jr., D.O.01/22/2025 2:50 PM Dictation Location: [place] [address] Electronically authenticated by: [id number] Y Date: 01/22/2025 14:50 Dictated By: Serafin Sorto M.D. Signed By: 01/22/25 1453 DD/ 1450 TD/TT: Last Repairer: [facility] Radiology Study observation (narrative) [facility] US OB L= 14 WEEKS FETUSOrder ed By: Radiologist Radiology on 01-22-2025 [facility] Work Phone: [facility] PREG QUANT HCGon 025 HCG QUANTITATIVE 3026 mIU/mL [facility] Comment on above: 5-50 0.2-1 WEEK 50-500 1-2 WEEKS 100-5,000 2-3 WEEKS 500-10,000 3-4 WEEKS 1,000-50,000 4-5 WEEKS 10,000-100,000 5-6 WEEKS 15,000-200,000 6-8 WEEKS 10,000-100,000 2-3 [facility] COMPLIANCE DRUG SCREENon PDF . [facility] Comment on above: Performed By: #### D SDOALC #### [facility] [address] [place] [address] [address] Roberto Parmar Summary FINAL Normal [facility] Comment on above: Result Comment: ===== TOXASSURE COMP DRUG ANALYSIS,UR ===== Specimen Alert Note: Urinary creatinine is low; ability to detect some drugs may be compromised. Interpret results with caution. ===== Test Result Flag Units Drug Present and [...] is an expected metabolite of dextromethorphan, an cpvj-zzt-tdkqvpo or prescription cough suppressant. Levorphanol is a scheduled prescription medication. Dextrorphan cannot be distinguished from levorphanol by the method used for analysis. Guaifenesin PRESENT UNEXPECTED Guaifenesin may be administered as an dizc-qfd-oaehjyk or prescription drug; it may also be present as a breakdown product of methocarbamol. Drug Absent but Declared for Prescription Verification Cyclobenzaprine Not Detected UNEXPECTED Quetiapine Not Detected UNEXPECTED ===== Test Result Flag Units Ref Range Creatinine 19 L mg/dL >=20 ===== Declared Medications: The flagging and interpretation on this report are based on the following declared medications. Unexpected results may arise from inaccuracies in the declared medications. Note: The testing scope of this panel includes these medications: Alprazolam (Xanax) Buprenorphine. (Suboxone) Cyclobenzaprine (Flexeril) Gabapentin Quetiapine (Seroquel) Note: The testing scope of this panel does not include following reported medications: Naloxone (Suboxone) ===== For clinical consultation, please call . ===== Performed By: #### D SDOALC #### [facility] [address] [place] [address] Dr. Roberto Parmar URIC ACID RAND URINEon 09-03 Uric Acid, Urine 12.4 mg/dL Normal Not Estab. [facility] Comment on above: Performed By: #### U RICUR #### [facility] [address] [place] [address] Dr. Roberto Parmar DRUG SCREEN RAPID (URINE)on 09-02-2022 AMP Negative Normal NEGATIVE [facility] Comment on above: Performed By: #### D RUGRPD #### [facility] [address] [place] [address] Dr. Roberto Parmar BAR Negative Normal NEGATIVE [facility] Comment on above: Performed By: #### D RUGRPD #### [facility] [address] [place] [address] Dr. Roberto Parmar BUP Positive Abnormal NEGATIVE [facility] Comment on above: Performed By: #### D RUGRPD #### [facility] [address] [place] [address] Dr. Roberto Parmar BZO Positive Abnormal NEGATIVE [facility] Comment on above: Performed By: #### D RUGRPD #### [facility] [address] [place] [address] Dr. Roberto Parmar BRITTANY Negative Normal NEGATIVE [facility] Comment on above: Performed By: #### D RUGRPD #### [facility] [address] [place] [address] Dr. Roberto Parmar CUT-OFFS SEE BELOW Normal [facility] Comment on above: Result Comment: AMP [...] ng/mL Performed By: #### D RUGRPD #### [facility] [address] [place] [address] Dr. Roberto Parmar DRUG CUT HEADER DRUG CLASS TEST SYSTEM CUT-OFF CONCENTRATIONS ARE FOLLOWS: Normal [facility] Comment on above: Performed By: #### D RUGRPD #### [facility] [address] [place] [address] Dr. Roberto Parmar mAMP Negative Normal NEGATIVE [facility] Comment on above: Performed By: #### D RUGRPD #### [facility] [address] [place] [address] Dr. Roberto Parmar MTD Negative Normal NEGATIVE [facility] Comment on above: Performed By: #### D RUGRPD #### [facility] [address] [place] [address] Dr. Roberto Parmar OPI Negative Normal NEGATIVE [facility] Comment on above: Performed By: #### D RUGRPD #### [facility] [address] [place] [address] Dr. Roberto Parmar OXY Negative Normal NEGATIVE [facility] Comment on above: Performed By: #### D RUGRPD #### [facility] [address] [place] [address] Dr. Roberto Parmar PCP Negative Normal NEGATIVE [facility] Comment on above: Performed By: #### D RUGRPD #### [facility] [address] [place] [address] Dr. Roberto Parmar PPX Negative Normal NEGATIVE [facility] Comment on above: Performed By: #### D RUGRPD #### [facility] [address] [place] [address] Dr. Roberto Parmar TCA Negative Normal NEGATIVE [facility] Comment on above: Performed By: #### D RUGRPD #### [facility] [address] [place] [address] Dr. Roberto Parmar THC Negative Normal NEGATIVE [facility] Comment on above: Performed By: #### D RUGRPD #### [facility] [address] [address] [address] Roberto Parmar US PELVIS AND TRANSVAGon [...] by: MAYUR ALLEN Date: 2022-07-13 07:21 Normal [facility] PAP ACOG PANEL 2: 21 to 29on 06-18-2022 . . Normal [facility] Comment on above: Performed By: #### [id number] #### [facility] [address] [address] [address] Roberto Parmar Age Gdln ACOG Testing 21-29 Normal [facility] Comment on above: Performed By: #### 4 [id number] #### [facility] [address] [address] [address] Roberto Parmar DIAGNOSIS: Comment [facility] Comment on above: Result Comment: NEGA TIVE FOR INTRAEPITHELIAL LESION OR MALIGNANCY. Performed By: #### 4 [id number] #### [facility] [address] [address] [address] Roberto Parmar Methodology: Comment Normal [facility] Comment on above: Result Comment: This liquid based ThinPrep(R) pap test was screened with the use of an image guided system. Performed By: #### 4 [id number] #### [facility] [address] [place] [address] Dr. Roberto Parmar Note: Comment Normal [facility] Comment on above: Result Comment: The Pap smear is a screening test designed to aid in the detection of premalignant and malignant conditions of the uterine cervix. It is not a diagnostic procedure and should not be used as the sole means of detecting cervical cancer. Both false-positive and false-negative reports do occur. . Performed By: #### 4 [id number] #### [facility] [address] [place] [address] Dr. Roberto Parmar Performed by: Comment Normal [facility] Comment on above: Result Comment: Kishore De Dios Neurophysiological Technician (ASCP) Performed By: #### 4 [id number] #### [facility] [address] [place] [address] Dr. Roberto Parmar Reflex Criteria: Comment Normal [facility] Comment on above: Result Comment: The HPV DNA reflex criteria were not met with this specimen result therefore, no HPV testing was performed. . Performed By: #### 4 [id number] #### [facility] [address] [place] [address] Dr. Roberto Parmar Specimen adequacy: Comment Normal [facility] Comment on above: Result Comment: Sati sfactory for evaluation. Endocervical and/or squamous metaplastic cells (endocervical component) are present. Performed By: #### 4 [id number] #### [facility] [address] [address] [address] Roberto Parmar CBCon 12-06-2020 Erythrocyte distribution width (RBC) [Ratio] 13.6 % Normal 11.8-14.4 [facility] Comment on above: Performed By: #### P HEP, HIVCMB #### [address] [place] [id number] [employer] Sprink[employer] Installer: Alvino Davila MD #### CP, CBC, HCG #### [facility] [address] [place] [address] Fire Sprinkler Installer: Luis A Peng MD Hematocrit (Bld) [Volume fraction] 44.1 % Normal 36.3-47.1 [facility] Comment on above: Performed By: #### P HEP, HIVCMB #### [address] [id number] Fire Sprinkler Installer: Alvino Davila MD #### CP, CBC, HCG #### [address] [place] [address] Fire Sprinkler Installer: Luis A Peng MD Hemoglobin (Bld) [Mass/Vol] 14.1 g/dL Normal 11.9-15.1 [facility] Comment on above: Performed By: #### P HEP, HIVCMB #### [address] [id number] Fire Sprinkler Installer: Alvino Davila MD #### CP, CBC, HCG #### [address] [place] [address] Fire Sprinkler Installer: Luis A Peng MD MCH (RBC) [Entitic mass] 25.4 pg Normal 25.2-33.5 [facility] Comment on above: Performed By: #### P HEP, HIVCMB #### [address] [id number] Fire Sprinkler Installer: Alvino Davila MD #### CP, CBC, HCG #### [address] [place] [address] Fire Sprinkler Installer: Luis A Peng MD MCHC (RBC) [Mass/Vol] 32.0 g/dL Normal 28.4-34.8 [facility] Comment on above: Performed By: #### P HEP, HIVCMB #### [address] [id number] Fire Sprinkler Installer: Alvino Davila MD #### CP, CBC, HCG #### [facility] [address] [place] [address] Fire Sprinkler Installer: Luis A Peng MD MCV (RBC) [Entitic vol] 79.5 fL Low 82.6-102.9 [facility] Comment on above: Performed By: #### P HEP, HIVCMB #### [address] [id number] Fire Sprinkler Installer: Alvino Davila MD #### CP, CBC, HCG #### [facility] [address] [place] [address] Fire Sprinkler Installer: Luis A Peng MD NRBC Automated 0.0 per 100 WBC Normal 0.0 [facility] Comment on above: Performed By: #### P HEP, HIVCMB #### [address] [id number] Fire Sprinkler Installer: Alvino Davila MD #### CP, CBC, HCG #### [facility] [address] [place] [address] Fire Sprinkler Installer: Luis A Peng MD Platelet mean volume (Bld) [Entitic vol] 11.8 fL Normal 8.1-13.5 [facility] Comment on above: Performed By: #### P HEP, HIVCMB #### [address] [id number] Fire Sprinkler Installer: Alvino Davila MD #### CP, CBC, HCG #### [facility] [address] [place] [address] Fire Sprinkler Installer: Luis A Peng MD Platelets (Bld) [#/Vol] 238 10*3/uL Normal 138-453 [facility] Comment on above: Performed By: #### P HEP, HIVCMB #### [address] [id number] Fire Sprinkler Installer: Alvino Davila MD #### CP, CBC, HCG #### [facility] [address] [place] [address] Fire Sprinkler Installer: Luis A Peng MD RBC (Bld) [#/Vol] 5.55 10*6/uL High 3.95-5.11 [facility] Comment on above: Performed By: #### P HEP, HIVCMB #### [address] [id number] Fire Sprinkler Installer: Alvino Davila MD #### CP, CBC, HCG #### [facility] [address] [place] [address] Fire Sprinkler Installer: Luis A Peng MD WBC (Bld) [#/Vol] 8.6 10*3/uL Normal 3.5-11.3 [facility] Comment on above: Performed By: #### P HEP, HIVCMB #### [address] [place], [place] [address] Fire Sprinkler Installer: Alvino Davila MD #### CP, CBC, HCG #### [address] [place] [address] Fire Sprinkler Installer: uLis A Peng MD Erythrocyte distribution width (RBC) [Ratio] 13.6 % 11.8 - 14.4 % [place], [place] Hematocrit (Bld) [Volume fraction] 44.1 % 36.3 - 47.1 % [place] Hemoglobin (Bld) [Mass/Vol] 14.1 g/dL 11.9 - 15.1 g/dL [place] Interpretation and review of laboratory results Abnormal [place] MCH (RBC) [Entitic mass] 25.4 pg 25.2 - 33.5 pg [place] MCHC (RBC) [Mass/Vol] 32.0 g/dL 28.4 - 34.8 g/dL [place] MCV (RBC) [Entitic vol] 79.5 fL Low 82.6 - 102.9 fL [place] Platelet mean volume (Bld) [Entitic vol] 11.8 fL 8.1 - 13.5 fL [place], [place] Platelets (Bld) [#/Vol] 238 10*3/uL [place] RBC (Bld) [#/Vol] 5.55 10*6/uL High 3.95 - 5.1 1 m/uL [place] WBC (Bld) [#/Vol] 8.6 10*3/uL [place] WBC (Bld) [#/Vol] 0.0 10*3/uL 0.0 per 100 WBC M [place], [place] Comp Metabolic Profon 2020 (cont.) Normal [facility] Comment on above: Result Comment: Aver age GFR for 20-29 years old: 116 mL/min/1.73sq m Chronic Kidney Disease: <60 mL/min/1.73sq m Kidney failure: <15 mL/min/1.73sq m eGFR calculated using average adult body mass. Additional eGFR calculator available at: http://www.GoalShare.com/multiple_crcl_2012.htm Performed By: #### P HEP, HIVCMB #### [address] [id number] Fire Sprinkler Installer: Alvino Davila MD #### CP, CBC, HCG #### [facility] [address] [place] [address] [place] [address] Fire Sprinkler Installer: Luis A Peng MD Albumin [Mass/Vol] 4.6 g/dL Normal 3.5-5.2 [facility] Comment on above: Performed By: #### P HEP, HIVCMB #### [address] [id number] Fire Sprinkler Installer: Alvino Davila MD #### CP, CBC, HCG #### [facility] [address] [place] [address] [place] [address] Fire Sprinkler Installer: Luis A Peng MD Albumin/Globulin [Mass ratio] 1.6 {ratio} Normal 1.0-2.5 [facility] Comment on above: Performed By: #### P HEP, HIVCMB #### [address] [place] [address] Fire Sprinkler Installer: Alvino Davila MD #### CP, CBC, HCG #### [facility] [address] [place] [address] Fire Sprinkler Installer: Luis A Peng MD Alkaline Phos 81 U/L Normal 35-104 [facility] Comment on above: Performed By: #### P HEP, HIVCMB #### [address] [address] Fire Sprinkler Installer: Alvino Davila MD #### CP, CBC, HCG #### [facility] [address] [place] [address] [place] [address] Fire Sprinkler Installer: Luis A Peng MD ALT [Catalytic activity/Vol] 39 U/L High 5-33 [facility] Comment on above: Performed By: #### P HEP, HIVCMB #### [address] [address] Fire Sprinkler Installer: Alvino Davila MD #### CP, CBC, HCG #### [address] [place] [id number] Fire Sprinkler Installer: Luis A Peng MD Anion gap [Moles/Vol] 12 mmol/L Normal 9-17 [facility] Comment on above: Performed By: #### P HEP, HIVCMB #### [address] [address] Fire Sprinkler Installer: Alvino Davila MD #### CP, CBC, HCG #### [facility] [address] [place], [place] [id number] Fire Sprinkler Installer: Luis A Peng MD AST [Catalytic activity/Vol] 28 U/L Normal <32 [facility] Comment on above: Performed By: #### P HEP, HIVCMB #### [address] [place] [address] Fire Sprinkler Installer: Alvino Davila MD #### CP, CBC, HCG #### [facility] [address] [place], [place] [id number] Fire Sprinkler Installer: Luis A Peng MD Bilirubin Ql (U) 0.26 mg/dL Low 0.3-1.2 [facility] Comment on above: Performed By: #### P HEP, HIVCMB #### [address] [id number] Fire Sprinkler Installer: Alvino Davila MD #### CP, CBC, HCG #### [facility] [address] [place] [address] [place] [address] Fire Sprinkler Installer: Luis A Peng MD BUN/CRE Ratio 14 Normal 9-20 [facility] Comment on above: Performed By: #### P HEP, HIVCMB #### [address] [address] Fire Sprinkler Installer: Alvino Davila MD #### CP, CBC, HCG #### [facility] [address] [place] [address] Dr. [place], [place] [id number] Fire Sprinkler Installer: Luis A Peng MD Calcium [Mass/Vol] 10.1 mg/dL Normal 8.6-10.4 [facility] Comment on above: Performed By: #### P HEP, HIVCMB #### [address] [address] Fire Sprinkler Installer: Alvino Davila MD #### CP, CBC, HCG #### [facility] [address] [place], [place] [id number] Fire Sprinkler Installer: Luis A Peng MD Chloride [Moles/Vol] 101 mmol/L Normal 98-107 [facility] Comment on above: Performed By: #### P HEP, HIVCMB #### [address] [address] Fire Sprinkler Installer: Alvino Davila MD #### CP, CBC, HCG #### [address] [place], [place] [id number] Fire Sprinkler Installer: Luis A Peng MD CO2 [Moles/Vol] 26 mmol/L Normal 20-31 [facility] Comment on above: Performed By: #### P HEP, HIVCMB #### [address] [address] Fire Sprinkler Installer: Alvino Davila MD #### CP, CBC, HCG #### [address] [place], [place] [id number] Fire Sprinkler Installer: Luis A Peng MD Creatinine [Mass/Vol] 0.49 mg/dL Low 0.50-0.90 [facility] Comment on above: Performed By: #### P HEP, HIVCMB #### [address] [address] Fire Sprinkler Installer: Alvino Davila MD #### CP, CBC, HCG #### [address] [place] [address] Fire Sprinkler Installer: Luis A Peng MD GFR, Amer >60 Normal >60 [facility] Comment on above: Performed By: #### P HEP, HIVCMB #### [address] [address] Fire Sprinkler Installer: Alvino Davila MD #### CP, CBC, HCG #### [address] [place] [address] Fire Sprinkler Installer: Luis A Peng MD GFR,non Amer >60 Normal >60 [facility] Comment on above: Performed By: #### P HEP, HIVCMB #### [address] [id number] Fire Sprinkler Installer: Alvino Davila MD #### CP, CBC, HCG #### [facility] [address] [place] [address] Fire Sprinkler Installer: Luis A Peng MD Glucose [Mass/Vol] 101 mg/dL High 70-99 [facility] Comment on above: Performed By: #### P HEP, HIVCMB #### [address] [id number] Fire Sprinkler Installer: Alvino Davila MD #### CP, CBC, HCG #### [facility] [address] [place] [id number] Fire Sprinkler Installer: Luis A Peng MD Potassium [Moles/Vol] 4.2 mmol/L Normal 3.7-5.3 [facility] Comment on above: Performed By: #### P HEP, HIVCMB #### [address] [id number] Fire Sprinkler Installer: Alvino Davila MD #### CP, CBC, HCG #### [address] [place] [id number] Fire Sprinkler Installer: Luis A Peng MD Protein [Mass/Vol] 7.5 g/dL Normal 6.4-8.3 [facility] Comment on above: Performed By: #### P HEP, HIVCMB #### [address] [address] Fire Sprinkler Installer: Alvino Davila MD #### CP, CBC, HCG #### [facility] [address] [place] [address] Fire Sprinkler Installer: Luis A Peng MD Sodium [Moles/Vol] 139 mmol/L Normal 135-144 [facility] Comment on above: Performed By: #### P HEP, HIVCMB #### [address] [address] Fire Sprinkler Installer: Alvino Davila MD #### CP, CBC, HCG #### [facility] [address] [place] [address] Fire Sprinkler Installer: Luis A Peng MD Staging: Normal [facility] Comment on above: Result Comment: Stag e 1: Some kidney damage normal GFR Stage 2: Mild kidney damage GFR 60-89 Stage 3: Moderate kidney damage GFR 30-59 Stage 4: Severe kidney damage GFR 15-29 Stage 5: Severe kidney damage GFR <15 ESRD - chronic treatment by dialysis or transplant Performed By: #### P HEP, HIVCMB #### [address] [place], [place] [id number] Fire Sprinkler Installer: Alvino Davila MD #### CP, CBC, HCG #### [facility] [address] [place] [address] Fire Sprinkler Installer: Luis A Peng MD Urea nitrogen [Mass/Vol] 7 mg/dL Normal 6-20 [facility] Comment on above: Performed By: #### P HEP, HIVCMB #### [address] [place], [place] 0228508 Fire Sprinkler Installer: Alvino Davila MD #### CP, CBC, HCG #### [facility] [address] [place] [address] [place] [address] Fire Sprinkler Installer: Luis A Peng MD Comprehensive Metabolic Pane [facility] 12-06-2020 Albumin [Mass/Vol] 4.6 g/dL 3.5 - 5.2 g/dL [place], [place] Albumin/Globulin [Mass ratio] 1.6 {ratio} [place], [place] ALP [Catalytic activity/Vol] 81 U/L 35 - 104 U/L [place] ALT [Catalytic activity/Vol] 39 U/L High 5 - 33 U/L [place] Anion gap [Moles/Vol] 12 mmol/L 9 - 17 mmol/L [place] AST [Catalytic activity/Vol] 28 U/L <32 [place] Bilirubin Ql (U) 0.26 mg/dL Low 0.3 - 1.2 mg/dL [place], [place] Bun/Cre Ratio 14 [place], [place] Calcium [Mass/Vol] 10.1 mg/dL 8.6 - 10. 4 mg/dL [place] Chloride [Moles/Vol] 101 mmol/L 98 - 107 mmol/L [place] CO2 [Moles/Vol] 26 mmol/L 20 - 31 mmol/L [place] Creatinine [Mass/Vol] 0.49 mg/dL Low 0.5 - 0.9 mg/d L [place] GFR >60 >60 mL/min [place], [place] GFR Non- >60 >60 mL/min [place] Glucose [Mass/Vol] 101 mg/dL High 70 - 99 mg/dL [place], [place] Interpretation and review of laboratory results Abnormal [place] Potassium [Moles/Vol] 4.2 mmol/L 3.7 - 5.3 mmol/L [place] Protein [Mass/Vol] 7.5 g/dL 6.4 - 8.3 g/dL [place], [place] Sodium [Moles/Vol] 139 mmol/L 135 - 144 mmol/L [place] Urea nitrogen [Mass/Vol] 7 mg/dL 6 - 20 mg/dL [place] HCG Qualitative, Serumon hCG Qual Negative NEGATIVE [place] Comment on above: Specimens with hCG l evels near the threshold of the test (25 mIU/mL) may give a negative or indeterminate result. In such cases, another test should be performed with a new specimen in 48-72 hours. If early is suspected clinically in this setting, correlation with quantitative serum b-hCG level is suggested. [facility] has confirmed the use of plasma for this test. This has not been cleared or approved by the U.S. Food and Drug Administration. The FDA has determined that such clearance is not necessary. HCG Screen, Bloodon 12-06-19 21 HCG Qn Negative Normal NEG [facility] Comment on above: Result Comment: Spec imens with hCG levels near the threshold of the test (25 mIU/mL) may give a negative or indeterminate result. In such cases, another test should be performed with a new specimen in 48-72 hours. If early is suspected clinically in this setting, correlation with quantitative serum b-hCG level is suggested. [facility] has confirmed the use of plasma for this test. This has not been cleared or approved by the U.S. Food and Drug Administration. The FDA has determined that such clearance is not necessary. Performed By: #### P HEP, HIVCMB #### [facility] [address] [place] [address] Fire Sprinkler Installer: Alvino Davila MD #### CP, CBC, HCG #### [address] [place] [address] Fire Sprinkler Installer: Luis A Peng MD HIV Ag/Abon 12-06-2020 HIV Ag/Ab NONREACTIVE Normal NR [facility] Comment on above: Result Comment: No l aboratory evidence of HIV infection. If acute HIV infection is suspected, consider testing for HIV-1 RNA. Performed By: #### P HEP, HIVCMB #### [address] [address] Fire Sprinkler Installer: Alvino Davila MD #### CP, CBC, HCG #### [address] [place] [address] Fire Sprinkler Installer: Luis A Peng MD HIV Screenon 12-06-2020 HIV Ag/Ab NONREACTIVE NONREACTIVE [place], [place] Comment on above: No laboratory eviden ce of HIV infection. If acute HIV infection is suspected, consider testing for HIV-1 RNA. Hepatitis Acute [facility] 12-06 Hep A Ab,IgM NONREACTIVE Normal NR [facility] Comment on above: Performed By: #### P HEP, HIVCMB #### [facility] [address] [place] [address] Fire Sprinkler Installer: Alvino Davila MD #### CP, CBC, HCG #### [address] [place] [id number] Fire Sprinkler Installer: Luis A Peng MD Hep B Core Ab,IgM NONREACTIVE Normal [facility] Comment on above: Performed By: #### P HEP, HIVCMB #### [facility] [address] [place] [address] Fire Sprinkler Installer: Alvino Davila MD #### CP, CBC, HCG #### [address] [place] [address] Fire Sprinkler Installer: Luis A Peng MD Hep B Surf Ag NONREACTIVE Normal NR [facility] Comment on above: Performed By: #### P HEP, HIVCMB #### [facility] [address] [place] [address] Fire Sprinkler Installer: Alvino Davila MD #### CP, CBC, HCG #### [address] [place], [place] [id number] Fire Sprinkler Installer: Luis A Peng MD Hep C Ab REACTIVE Abnormal [facility] Comment on above: Result Comment: [...] Performed By: #### P HEP, HIVCMB #### [address] [place] [address] Fire Sprinkler Installer: Alvino Davila MD #### CP, CBC, HCG #### [address] [place], [place] [id number] Fire Sprinkler Installer: Luis A Peng MD Hepatitis Panel, [facility] HAV IgM IA Qn (S) NONREACTIVE NONREACTIVE [facility], [place] Hep B Core Ab, IgM NONREACTIVE NONREACTIVE [facility], [place] Hepatitis B Surface Ag NONREACTIVE NONREACTIVE [place], [place] Hepatitis C Ab REACTIVE Abnormal NONREACTIVE [facility] [place], [place] Comment on above: The hepatitis C [...] Interpretation and review of laboratory results Abnormal [place] Metabolic Panelon 12-06-2020 GFR/1.73 sq M predicted among non-blacks MDRD (S/P/Bld) [Vol rate/Area] [place], [place] Comment on above: Stage 1: Some [...] body mass. Additional eGFR calculator available at: http://www.GoalShare.com/multiple_crcl_2011.htm CBCon 05-30-2020 Erythrocyte distribution width (RBC) [Ratio] 12.7 % Normal 11.8-14.4 [facility] Comment on above: Performed By: #### C P, HCG, CBC #### [facility] [address] [place] [address] [place] [address] Fire Sprinkler Installer: Luis A Peng MD #### HIVCMB, PHEP #### [address] [address] Fire Sprinkler Installer: Alvino Davila MD Hematocrit (Bld) [Volume fraction] 39.2 % Normal 36.3-47.1 [facility] Comment on above: Performed By: #### C P, HCG, CBC #### [facility] [address] [place] [id number] Fire Sprinkler Installer: Luis A Peng MD #### HIVCMB, PHEP #### [address] [place], [place] [id number] Fire Sprinkler Installer: Alvino Davila MD Hemoglobin (Bld) [Mass/Vol] 12.3 g/dL Normal 11.9-15.1 [facility] Comment on above: Performed By: #### C P, HCG, CBC #### [address] [place] [id number] Fire Sprinkler Installer: Luis A Peng MD #### HIVCMB, PHEP #### [address] [id number] Fire Sprinkler Installer: Alvino Davila MD MCH (RBC) [Entitic mass] 26.2 pg Normal 25.2-33.5 [facility] Comment on above: Performed By: #### C P, HCG, CBC #### [address] [place] [id number] [employer] Sprink[employer] Installer: Luis A Peng MD #### HIVCMB, PHEP #### [address] [phone] [employer] Sprink[employer] Installer: Alvino Davila MD MCHC (RBC) [Mass/Vol] 31.4 g/dL Normal 28.4-34.8 [facility] Comment on above: Performed By: #### C P, HCG, CBC #### [address] [place] [phone] Fire Sprinkler Installer: Luis A Peng MD #### HIVCMB, PHEP #### [address] [phone] [employer] Sprink[employer] Installer: Alvino Davila MD MCV (RBC) [Entitic vol] 83.6 fL Normal 82.6-102.9 [facility] Comment on above: Performed By: #### C P, HCG, CBC #### [facility] [address] [place], [place] [phone] [employer] Sprink[employer] Installer: Luis A Peng MD #### HIVCMB, PHEP #### [address] [phone] [employer] Sprink[employer] Installer: Alvino Davila MD NRBC Automated 0.0 per 100 WBC Normal 0.0 [facility] Comment on above: Performed By: #### C P, HCG, CBC #### [facility] [address] [place] [address] Dr. [place] [phone] Fire Sprinkler Installer: Luis A Peng MD #### HIVCMB, PHEP #### [address] [phone] [employer] Sprink[employer] Installer: Alvino Davila MD Platelet mean volume (Bld) [Entitic vol] 10.9 fL Normal 8.1-13.5 [facility] Comment on above: Performed By: #### C P, HCG, CBC #### [facility] [address] [place] [address] Dr. [place] [phone] Fire Sprinkler Installer: Luis A Peng MD #### HIVCMB, PHEP #### [address] [phone] [employer] Sprink[employer] Installer: Alvino Davila MD Platelets (Bld) [#/Vol] 277 10*3/uL Normal 138-453 [facility] Comment on above: Performed By: #### C P, HCG, CBC #### [facility] [address] [place] [address] Dr. [place], [place] [phone] [employer] Spr[employer] Installer: Luis A Peng MD #### HIVCMB, PHEP #### [address] [address] [employer] Sprink[employer] Installer: Alvino Davila MD RBC (Bld) [#/Vol] 4.69 10*6/uL Normal 3.95-5.11 [facility] Comment on above: Performed By: #### C P, HCG, CBC #### [facility] [address] [place] [address] [employer] Sprinkler Installer: Luis A Peng MD #### HIVCMB, PHEP #### [facility] [address] [place], [place] [phone] Fire Sprinkler Installer: Alvino Davila MD WBC (Bld) [#/Vol] 5.5 10*3/uL Normal 3.5-11.3 [facility] Comment on above: Performed By: #### C P, HCG, CBC #### [facility] [address] [place] [address] [employer] Sprinkler Installer: Luis A Peng MD #### HIVCMB, PHEP #### [facility] [address] [place], [place] [phone] [employer] Sprinkler Installer: Alvino Davila MD Erythrocyte distribution width (RBC) [Ratio] 12.7 % 11.8 - 14.4 % [place], [place] Hematocrit (Bld) [Volume fraction] 39.2 % 36.3 - 47.1 % [place] Hemoglobin (Bld) [Mass/Vol] 12.3 g/dL 11.9 - 15.1 g/dL [place] MCH (RBC) [Entitic mass] 26.2 pg 25.2 - 33.5 pg [place] MCHC (RBC) [Mass/Vol] 31.4 g/dL 28.4 - 34.8 g/dL [place] MCV (RBC) [Entitic vol] 83.6 fL 82.6 - 102.9 fL [place] Platelet mean volume (Bld) [Entitic vol] 10.9 fL 8.1 - 13.5 fL [place], [place] Platelets (Bld) [#/Vol] 277 10*3/uL [place] RBC (Bld) [#/Vol] 4.69 10*6/uL 3.95 - 5.1 1 m/uL [place] WBC (Bld) [#/Vol] 5.5 10*3/uL [place] WBC (Bld) [#/Vol] 0.0 10*3/uL 0.0 per 100 WBC M [place], [place] Comp Metabolic Profon 2019 (cont.) Normal [facility] Comment on above: Result Comment: Aver age GFR for 20-29 years old: 116 mL/min/1.73sq m Chronic Kidney Disease: <60 mL/min/1.73sq m Kidney failure: <15 mL/min/1.73sq m eGFR calculated using average adult body mass. Additional eGFR calculator available at: http://www.[employer].com/multiple_crcl_2012.htm Performed By: #### C P, HCG, CBC #### [facility] [address] [place] [address] [place] [address] [employer] Sprinkler Installer: Luis A Peng MD #### HIVCMB, PHEP #### [facility] [address] [place] [address] [phone] [employer] Sprink[employer] Installer: Alvino Davila MD Albumin [Mass/Vol] 3.4 g/dL Low 3.5-5.2 [facility] Comment on above: Performed By: #### C P, HCG, CBC #### [address] [place] [address] [employer] Sprinkler Installer: Luis A Peng MD #### HIVCMB, PHEP #### [facility] [place], [place] [phone] Fire Sprinkler Installer: Alvino Davila MD Albumin/Globulin [Mass ratio] 1.1 {ratio} Normal 1.0-2.5 [facility] Comment on above: Performed By: #### C P, HCG, CBC #### [address] [place] [address] [employer] Sprinkler Installer: Luis A Peng MD #### HIVCMB, PHEP #### [place] [address] [place], [place] [phone] [employer] Sprinkler Installer: Alvino Davila MD Alkaline Phos 130 U/L High 35-104 [facility] Comment on above: Performed By: #### C P, HCG, CBC #### [facility] [address] [place], [place] [phone] [employer] Sprink[employer] Installer: Luis A Peng MD #### HIVCMB, PHEP #### [address] [phone] Fire Sprinkler Installer: Alvino Davila MD ALT [Catalytic activity/Vol] 33 U/L Normal 5-33 [facility] Comment on above: Performed By: #### C P, HCG, CBC #### [facility] [address] [place] [address] Dr. [place], [place] [phone] [employer] Sprinkler Installer: Luis A Peng MD #### HIVCMB, PHEP #### [address] [phone] [employer] Sprink[employer] Installer: Alvino Davila MD Anion gap [Moles/Vol] 7 mmol/L Low 9-17 [facility] Comment on above: Performed By: #### C P, HCG, CBC #### [address] [place], [place] [phone] [employer] Sprinkler Installer: Luis A Peng MD #### HIVCMB, PHEP #### [address] [address] [employer] Sprinkler Installer: Alvino Davila MD AST [Catalytic activity/Vol] 35 U/L High <32 [facility] Comment on above: Performed By: #### C P, HCG, CBC #### [facility] [address] [place] [address] Dr. [place], [place] [phone] [employer] Sprinkler Installer: Luis A Peng MD #### HIVCMB, PHEP #### [address] [address] [employer] Sprinkler Installer: Alvino Davila MD Bilirubin Ql (U) 0.16 mg/dL Low 0.3-1.2 [facility] Comment on above: Performed By: #### C P, HCG, CBC #### [facility] [address] [place] [address] Fire Sprinkler Installer: Luis A Peng MD #### HIVCMB, PHEP #### [address] [phone] [employer] Sprink[employer] Installer: Alvino Davila MD BUN/CRE Ratio 14 Normal 9-20 [facility] Comment on above: Performed By: #### C P, HCG, CBC #### [facility] [address] [place] [address] Fire Sprinkler Installer: Luis A Peng MD #### HIVCMB, PHEP #### [address] [phone] Fire Sprinkler Installer: Alvino Davila MD Calcium [Mass/Vol] 9.2 mg/dL Normal 8.6-10.4 [facility] Comment on above: Performed By: #### C P, HCG, CBC #### [facility] [address] [place] [address] [employer] Sprinkler Installer: Luis A Peng MD #### HIVCMB, PHEP #### [address] [address] [employer] Sprinkler Installer: Alvino Davila MD Chloride [Moles/Vol] 99 mmol/L Normal 98-107 [facility] Comment on above: Performed By: #### C P, HCG, CBC #### [facility] [address] [place], [place] 4995983 [employer] Sprinkler Installer: Luis A Peng MD #### HIVCMB, PHEP #### [address] [address] [employer] Sprinkler Installer: Alvino Davila MD CO2 [Moles/Vol] 29 mmol/L Normal 20-31 [facility] Comment on above: Performed By: #### C P, HCG, CBC #### [facility] [address] [place], [place] [phone] [employer] Sprinkler Installer: Luis A Peng MD #### HIVCMB, PHEP #### [address] [address] Fire Sprinkler Installer: Alvino Davila MD Creatinine [Mass/Vol] 0.63 mg/dL Normal 0.50-0.90 [facility] Comment on above: Performed By: #### C P, HCG, CBC #### [facility] [address] [place], [place] [phone] Fire Sprinkler Installer: Luis A Peng MD #### HIVCMB, PHEP #### [address] 1967408 Fire Sprinkler Installer: Alvino Davila MD GFR, Amer >60 Normal >60 [facility] Comment on above: Performed By: #### C P, HCG, CBC #### [facility] [address] [place], [place] 8190083 Fire Sprinkler Installer: Luis A Peng MD #### HIVCMB, PHEP #### [address] [address] Fire Sprinkler Installer: Alvino Davila MD GFR,non Amer >60 Normal >60 [facility] Comment on above: Performed By: #### C P, HCG, CBC #### [facility] [address] [place], [place] [phone] [employer] Sprinkler Installer: Luis A Peng MD #### HIVCMB, PHEP #### [address] [address] Fire Sprinkler Installer: Alvino Davila MD Glucose [Mass/Vol] 95 mg/dL Normal 70-99 [facility] Comment on above: Performed By: #### C P, HCG, CBC #### [facility] [address] [place] [address] [place] [address] Fire Sprinkler Installer: Luis A Peng MD #### HIVCMB, PHEP #### [address] [address] Fire Sprinkler Installer: Alvino Davila MD Potassium [Moles/Vol] 4.3 mmol/L Normal 3.7-5.3 [facility] Comment on above: Performed By: #### C P, HCG, CBC #### [facility] [address] [place] [address] [place], [place] [phone] Fire Sprinkler Installer: Luis A Peng MD #### HIVCMB, PHEP #### [address] [phone] Fire Sprinkler Installer: Alvino Davila MD Protein [Mass/Vol] 6.5 g/dL Normal 6.4-8.3 [facility] Comment on above: Performed By: #### C P, HCG, CBC #### [address] [place], [place] [phone] Fire Sprinkler Installer: Luis A Peng MD #### HIVCMB, PHEP #### [address] [address] Fire Sprinkler Installer: Alvino Davila MD Sodium [Moles/Vol] 135 mmol/L Normal 135-144 [facility] Comment on above: Performed By: #### C P, HCG, CBC #### [address] [place], [place] 8823283 Fire Sprinkler Installer: Luis A Peng MD #### HIVCMB, PHEP #### [address] [address] Fire Sprinkler Installer: Alvino Davila MD Staging: Normal [facility] Comment on above: Result Comment: Stag e 1: Some kidney damage normal GFR Stage 2: Mild kidney damage GFR 60-89 Stage 3: Moderate kidney damage GFR 30-59 Stage 4: Severe kidney damage GFR 15-29 Stage 5: Severe kidney damage GFR <15 ESRD - chronic treatment by dialysis or transplant Performed By: #### C P, HCG, CBC #### [facility] [address] [place] [address] Fire Sprinkler Installer: Luis A Peng MD #### HIVCMB, PHEP #### [facility] [address] [place], [place] [phone] Fire Sprinkler Installer: Alvino Davila MD Urea nitrogen [Mass/Vol] 9 mg/dL Normal 6-20 [facility] Comment on above: Performed By: #### C P, HCG, CBC #### [facility] [address] [place] [address] Fire Sprinkler Installer: Luis A Peng MD #### HIVCMB, PHEP #### [place] [address]541 [place], [place] 4795808 Fire Sprinkler Installer: Alvino Davila MD Comprehensive Metabolic Pane [facility] 05-30-2020 Albumin [Mass/Vol] 3.4 g/dL Low 3.5 - 5.2 g/dL [place] Albumin/Globulin [Mass ratio] 1.1 {ratio} [place] ALP [Catalytic activity/Vol] 130 U/L High 35 - 104 U/L [place] ALT [Catalytic activity/Vol] 33 U/L 5 - 33 U/L [place] Anion gap [Moles/Vol] 7 mmol/L Low 9 - 17 mmol/L [place] AST [Catalytic activity/Vol] 35 U/L High <32 [place] Bilirubin Ql (U) 0.16 mg/dL Low 0.3 - 1.2 mg/dL [place], [place] Bun/Cre Ratio 14 [place], [place] Calcium [Mass/Vol] 9.2 mg/dL 8.6 - 10. 4 mg/dL [place] Chloride [Moles/Vol] 99 mmol/L 98 - 107 mmol/L [place] CO2 [Moles/Vol] 29 mmol/L 20 - 31 mmol/L [place] Creatinine [Mass/Vol] 0.63 mg/dL 0.5 - 0.9 mg/d L [place] GFR >60 >60 mL/min [place] GFR Non- >60 >60 mL/min [place] Glucose [Mass/Vol] 95 mg/dL 70 - 99 mg/dL [place], [place] Interpretation and review of laboratory results Abnormal [place] Potassium [Moles/Vol] 4.3 mmol/L 3.7 - 5.3 mmol/L [place] Protein [Mass/Vol] 6.5 g/dL 6.4 - 8.3 g/dL [place] Sodium [Moles/Vol] 135 mmol/L 135 - 144 mmol/L [place] Urea nitrogen [Mass/Vol] 9 mg/dL 6 - 20 mg/dL [place] HCG Qualitative, Serumon hCG Qual Negative NEGATIVE [place] Comment on above: Specimens with hCG l evels near the threshold of the test (25 mIU/mL) may give a negative or indeterminate result. In such cases, another test should be performed with a new specimen in 48-72 hours. If early is suspected clinically in this setting, correlation with quantitative serum b-hCG level is suggested. [employer] has confirmed the use of plasma for this test. This has not been cleared or approved by the U.S. Food and Drug Administration. The FDA has determined that such clearance is not necessary. HCG Screen, Bloodon 05-30-20 20 HCG Qn Negative Normal NEG [facility] Comment on above: Result Comment: Spec imens with hCG levels near the threshold of the test (25 mIU/mL) may give a negative or indeterminate result. In such cases, another test should be performed with a new specimen in 48-72 hours. If early is suspected clinically in this setting, correlation with quantitative serum b-hCG level is suggested. [employer] has confirmed the use of plasma for this test. This has not been cleared or approved by the U.S. Food and Drug Administration. The FDA has determined that such clearance is not necessary. Performed By: #### C P, HCG, CBC #### [address] [place], [place] [phone] Fire Sprinkler Installer: Luis A Peng MD #### HIVCMB, PHEP #### [facility] [address] [place] [address] Fire Sprinkler Installer: Alvino Davila MD HIV Ag/Abon 05-30-2020 HIV Ag/Ab NONREACTIVE Normal [facility] Comment on above: Result Comment: No l aboratory evidence of HIV infection. If acute HIV infection is suspected, consider testing for HIV-1 RNA. Performed By: #### C P, HCG, CBC #### [address] [place], [place] 4577383 Fire Sprinkler Installer: Luis A Peng MD #### HIVCMB, PHEP #### [facility] [address] [place] [address] Fire Sprinkler Installer: Alvino Davila MD HIV Screenon 05-30-2020 HIV Ag/Ab NONREACTIVE NONREACTIVE [place] Comment on above: No laboratory eviden ce of HIV infection. If acute HIV infection is suspected, consider testing for HIV-1 RNA. Hepatitis Acute [facility] 05-30 Hep A Ab,IgM NONREACTIVE Normal NR [facility] Comment on above: Performed By: #### C P, HCG, CBC #### [address] [place], [place] [phone] Fire Sprinkler Installer: Luis A Peng MD #### HIVCMB, PHEP #### [facility] [address] [place] [address] Fire Sprinkler Installer: Alvino Davila MD Hep B Core Ab,IgM NONREACTIVE Normal [facility] Comment on above: Performed By: #### C P, HCG, CBC #### [address] [place], [place] [phone] Fire Sprinkler Installer: Luis A Peng MD #### HIVCMB, PHEP #### [facility] [address] [place], [place] [phone] Fire Sprinkler Installer: Alvino Davila MD Hep B Surf Ag NONREACTIVE Normal [facility] Comment on above: Performed By: #### C P, HCG, CBC #### [facility] [address] [place] [address] [place], [place] [phone] Fire Sprinkler Installer: Luis A Peng MD #### HIVCMB, PHEP #### [address] [address] Fire Sprinkler Installer: Alvino Davila MD Hep C Ab NONREACTIVE Normal [facility] Comment on above: Result Comment: [...] By: #### C P, HCG, CBC #### [address] [place], [place] [phone] Fire Sprinkler Installer: Luis A Peng MD #### HIVCMB, PHEP #### [address] [address] Fire Sprinkler Installer: Alvino Davila MD Hepatitis Panel, [facility] HAV IgM IA Qn (S) NONREACTIVE NONREACTIVE [place] Hep B Core Ab, IgM NONREACTIVE NONREACTIVE [place] Hepatitis B Surface Ag NONREACTIVE NONREACTIVE [place] Hepatitis C Ab NONREACTIVE NONREACTIVE [place], [place] Comment on above: The hepatitis C [...] predicted among non-blacks MDRD (S/P/Bld) [Vol rate/Area] [place], [place] Comment on above: Stage 1: Some [...] body mass. Additional eGFR calculator available at: http://www.GoalShare.com/multiple_crcl_2012.htm [facility] 01-01-2020 Erythrocyte distribution width (RBC) [Ratio] 12.5 % Normal 11.8-14.4 [facility] Comment on above: Performed By: #### P HEP, HIVCMB #### [facility] [address] [place], [place] 1987608 Fire Sprinkler Installer: Alvino Davila MD #### CP, CBC, HCG #### [address] [place] [address] Fire Sprinkler Installer: Luis A Peng MD Hematocrit (Bld) [Volume fraction] 40.2 % Normal 36.3-47.1 [facility] Comment on above: Performed By: #### P HEP, HIVCMB #### [facility] [address] [place], [place] [phone] Fire Sprinkler Installer: Alvino Davila MD #### CP, CBC, HCG #### [address] [place] [address] Fire Sprinkler Installer: Luis A Peng MD Hemoglobin (Bld) [Mass/Vol] 13.1 g/dL Normal 11.9-15.1 [facility] Comment on above: Performed By: #### P HEP, HIVCMB #### [address] [phone] Fire Sprinkler Installer: Alvino Davila MD #### CP, CBC, HCG #### [address] [place], [place] 9366483 Fire Sprinkler Installer: Luis A Peng MD MCH (RBC) [Entitic mass] 28.4 pg Normal 25.2-33.5 [facility] Comment on above: Performed By: #### P HEP, HIVCMB #### [address] [address] Fire Sprinkler Installer: Alvino Davila MD #### CP, CBC, HCG #### [address] [place] [address] Fire Sprinkler Installer: Luis A Peng MD MCHC (RBC) [Mass/Vol] 32.6 g/dL Normal 28.4-34.8 [facility] Comment on above: Performed By: #### P HEP, HIVCMB #### [address] [address] Fire Sprinkler Installer: Alvino Davila MD #### CP, CBC, HCG #### [address] [place] [address] Fire Sprinkler Installer: Luis A Peng MD MCV (RBC) [Entitic vol] 87.2 fL Normal 82.6-102.9 [facility] Comment on above: Performed By: #### P HEP, HIVCMB #### [address] [address] Fire Sprinkler Installer: Alvino Davila MD #### CP, CBC, HCG #### [address] [place] [address] Fire Sprinkler Installer: Luis A Peng MD NRBC Automated 0.0 per 100 WBC Normal 0.0 [facility] Comment on above: Performed By: #### P HEP, HIVCMB #### [address] [address] Fire Sprinkler Installer: Alvino Davila MD #### CP, CBC, HCG #### [address] [place], [place] 9148083 Fire Sprinkler Installer: Luis A Peng MD Platelet mean volume (Bld) [Entitic vol] 11.2 fL Normal 8.1-13.5 [facility] Comment on above: Performed By: #### P HEP, HIVCMB #### [address] [address] Fire Sprinkler Installer: Alvino Davila MD #### CP, CBC, HCG #### [address] [place] [address] Fire Sprinkler Installer: Luis A Peng MD Platelets (Bld) [#/Vol] 241 10*3/uL Normal 138-453 [facility] Comment on above: Performed By: #### P HEP, HIVCMB #### [address] [address] Fire Sprinkler Installer: Alvino Davila MD #### CP, CBC, HCG #### [address] [place] [address] Fire Sprinkler Installer: Luis A Peng MD RBC (Bld) [#/Vol] 4.61 10*6/uL Normal 3.95-5.11 [facility] Comment on above: Performed By: #### P HEP, HIVCMB #### [address] [address] Fire Sprinkler Installer: Alvino Davila MD #### CP, CBC, HCG #### [address] [place] [address] Fire Sprinkler Installer: Luis A Peng MD WBC (Bld) [#/Vol] 9.0 10*3/uL Normal 3.5-11.3 [facility] Comment on above: Performed By: #### P HEP, HIVCMB #### [facility] [address] [place], [place] [phone] Fire Sprinkler Installer: Alvino Davila MD #### CP, CBC, HCG #### [facility] [address] [address] Fire Sprinkler Installer: Luis A Peng MD Erythrocyte distribution width (RBC) [Ratio] 12.5 % 11.8 - 14.4 % [place] Hematocrit (Bld) [Volume fraction] 40.2 % 36.3 - 47.1 % [place] Hemoglobin (Bld) [Mass/Vol] 13.1 g/dL 11.9 - 15.1 g/dL [place] MCH (RBC) [Entitic mass] 28.4 pg 25.2 - 33.5 pg [place] MCHC (RBC) [Mass/Vol] 32.6 g/dL 28.4 - 34.8 g/dL [place] MCV (RBC) [Entitic vol] 87.2 fL 82.6 - 102.9 fL [place] Platelet mean volume (Bld) [Entitic vol] 11.2 fL 8.1 - 13.5 fL [place] Platelets (Bld) [#/Vol] 241 10*3/uL [place] RBC (Bld) [#/Vol] 4.61 10*6/uL 3.95 - 5.1 1 m/uL [place] WBC (Bld) [#/Vol] 0.0 10*3/uL 0.0 per [address] [place] WBC (Bld) [#/Vol] 9.0 10*3/uL [place] Comp Metabolic Profon 2019 (cont.) Normal [facility] Comment on above: Result Comment: Aver age GFR for 20-29 years old: 116 mL/min/1.73sq m Chronic Kidney Disease: <60 mL/min/1.73sq m Kidney failure: <15 mL/min/1.73sq m eGFR calculated using average adult body mass. Additional eGFR calculator available at: http://www.[employer].com/multiple_crcl_2012.htm Performed By: #### P HEP, HIVCMB #### [address] [address] Fire Sprinkler Installer: Alvino Davila MD #### CP, CBC, HCG #### [address] [place], [place] [phone] Fire Sprinkler Installer: Luis A Peng MD Albumin [Mass/Vol] 4.2 g/dL Normal 3.5-5.2 [facility] Comment on above: Performed By: #### P HEP, HIVCMB #### [address] [address] Fire Sprinkler Installer: Alvino Davila MD #### CP, CBC, HCG #### [address] [place] [address] Fire Sprinkler Installer: Luis A Peng MD Albumin/Globulin [Mass ratio] 1.7 {ratio} Normal 1.0-2.5 [facility] Comment on above: Performed By: #### P HEP, HIVCMB #### [address] [address] Fire Sprinkler Installer: Alvino Davila MD #### CP, CBC, HCG #### [address] [place] [address] Fire Sprinkler Installer: Luis A Peng MD Alkaline Phos 69 U/L Normal 35-104 [facility] Comment on above: Performed By: #### P HEP, HIVCMB #### [address] [address] Fire Sprinkler Installer: Alvino Davila MD #### CP, CBC, HCG #### [address] [place] [address] Fire Sprinkler Installer: Luis A Peng MD ALT [Catalytic activity/Vol] 78 U/L High 5-33 [facility] Comment on above: Performed By: #### P HEP, HIVCMB #### [address] [address] Fire Sprinkler Installer: Alvino Davila MD #### CP, CBC, HCG #### [facility] [address] [place], [place] 4165183 Fire Sprinkler Installer: Luis A Peng MD Anion gap [Moles/Vol] 9 mmol/L Normal 9-17 [facility] Comment on above: Performed By: #### P HEP, HIVCMB #### [address] [address] Fire Sprinkler Installer: Alvino Davila MD #### CP, CBC, HCG #### [facility] [address] [place] [phone] Fire Sprinkler Installer: Luis A Peng MD AST [Catalytic activity/Vol] 44 U/L High <32 [facility] Comment on above: Performed By: #### P HEP, HIVCMB #### [address] [address] Fire Sprinkler Installer: Alvino Davila MD #### CP, CBC, HCG #### [facility] [address] [place], [place] 3373883 Fire Sprinkler Installer: Luis A Peng MD Bilirubin Ql (U) 0.15 mg/dL Low 0.3-1.2 [facility] Comment on above: Performed By: #### P HEP, HIVCMB #### [address] [address] Fire Sprinkler Installer: Alvino Davila MD #### CP, CBC, HCG #### [facility] [address] [place] [id number] Fire Sprinkler Installer: Luis A Peng MD BUN/CRE Ratio 20 Normal 9-20 [facility] Comment on above: Performed By: #### P HEP, HIVCMB #### [address] [address] [employer] Sprinkler Installer: Alvino Davila MD #### CP, CBC, HCG #### [facility] [address] [place], [place] [id number] Fire Sprinkler Installer: Luis A Peng MD Calcium [Mass/Vol] 9.4 mg/dL Normal 8.6-10.4 [facility] Comment on above: Performed By: #### P HEP, HIVCMB #### [address] [address] Fire Sprinkler Installer: Alvino Davila MD #### CP, CBC, HCG #### [facility] [address] [place] [address] [place]. [place], [place] [id number] Fire Sprinkler Installer: Luis A Peng MD Chloride [Moles/Vol] 97 mmol/L Low 98-107 [facility] Comment on above: Performed By: #### P HEP, HIVCMB #### [address] [address] Fire Sprinkler Installer: Alvino Davila MD #### CP, CBC, HCG #### [facility] [address] [place] [address] Dr. [place], [place] [id number] Fire Sprinkler Installer: Luis A Peng MD CO2 [Moles/Vol] 28 mmol/L Normal 20-31 [facility] Comment on above: Performed By: #### P HEP, HIVCMB #### [address] [address] Fire Sprinkler Installer: Alvino Davila MD #### CP, CBC, HCG #### [facility] [address] [place] [address] [place], [place] [id number] Fire Sprinkler Installer: Luis A Peng MD Creatinine [Mass/Vol] 0.55 mg/dL Normal 0.50-0.90 [facility] Comment on above: Performed By: #### P HEP, HIVCMB #### [address] [address] Fire Sprinkler Installer: Alvino Davila MD #### CP, CBC, HCG #### [facility] [address] [place], [place] [id number] Fire Sprinkler Installer: Luis A Peng MD GFR, Amer >60 Normal >60 [facility] Comment on above: Performed By: #### P HEP, HIVCMB #### [address] [address] Fire Sprinkler Installer: Alvino Davila MD #### CP, CBC, HCG #### [address] [place], [place] [id number] Fire Sprinkler Installer: Luis A Peng MD GFR,non Amer >60 Normal >60 [facility] Comment on above: Performed By: #### P HEP, HIVCMB #### [address] [address] Fire Sprinkler Installer: Alvino Davila MD #### CP, CBC, HCG #### [address] [place] [address] Fire Sprinkler Installer: Luis A Peng MD Glucose [Mass/Vol] 85 mg/dL Normal 70-99 [facility] Comment on above: Performed By: #### P HEP, HIVCMB #### [address] [address] Fire Sprinkler Installer: Alvino Davila MD #### CP, CBC, HCG #### [address] [place] [address] Fire Sprinkler Installer: Luis A Peng MD Potassium [Moles/Vol] 4.3 mmol/L Normal 3.7-5.3 [facility] Comment on above: Performed By: #### P HEP, HIVCMB #### [address] [address] Fire Sprinkler Installer: Alvino Davila MD #### CP, CBC, HCG #### [facility] [address] [place] [address] Fire Sprinkler Installer: Luis A Peng MD Protein [Mass/Vol] 6.7 g/dL Normal 6.4-8.3 [facility] Comment on above: Performed By: #### P HEP, HIVCMB #### [facility] [address] [place] [address] Fire Sprinkler Installer: Alvino Davila MD #### CP, CBC, HCG #### [facility] [address] [place] [address] Fire Sprinkler Installer: Luis A Peng MD Sodium [Moles/Vol] 134 mmol/L Low 135-144 [facility] Comment on above: Performed By: #### P HEP, HIVCMB #### [address] [address] Fire Sprinkler Installer: Alvino Davila MD #### CP, CBC, HCG #### [facility] [address] [place] [address] Fire Sprinkler Installer: uLis A Peng MD Staging: Normal [facility] Comment on above: Result Comment: Stag e 1: Some kidney damage normal GFR Stage 2: Mild kidney damage GFR 60-89 Stage 3: Moderate kidney damage GFR 30-59 Stage 4: Severe kidney damage GFR 15-29 Stage 5: Severe kidney damage GFR <15 ESRD - chronic treatment by dialysis or transplant Performed By: #### P HEP, HIVCMB #### [facility] [address] [place] [address] Fire Sprinkler Installer: Alvino Davila MD #### CP, CBC, HCG #### [facility] [address] [place] [address] Fire Sprinkler Installer: Luis A Peng MD Urea nitrogen [Mass/Vol] 11 mg/dL Normal 6-20 [facility] Comment on above: Performed By: #### P HEP, HIVCMB #### [facility] [address] [place], [place] [id number] Fire Sprinkler Installer: Alvino Davila MD #### CP, CBC, HCG #### [facility] [address] [place], [place] [phone] Fire Sprinkler Installer: Luis A Peng MD Comprehensive Metabolic Pane liu 01-01-2020 Albumin [Mass/Vol] 4.2 g/dL 3.5 - 5.2 g/dL [place], [place] Albumin/Globulin [Mass ratio] 1.7 {ratio} [place], [place] ALP [Catalytic activity/Vol] 69 U/L 35 - 104 U/L [place] ALT [Catalytic activity/Vol] 78 U/L High 5 - 33 U/L [place] Anion gap [Moles/Vol] 9 mmol/L 9 - 17 mmol/L [place] AST [Catalytic activity/Vol] 44 U/L High <32 [place] Bilirubin Ql (U) 0.15 mg/dL Low 0.3 - 1.2 mg/dL [place], [place] Bun/Cre Ratio 20 [place], [place] Calcium [Mass/Vol] 9.4 mg/dL 8.6 - 10. 4 mg/dL [place] Chloride [Moles/Vol] 97 mmol/L Low 98 - 107 mmol/L [place] CO2 [Moles/Vol] 28 mmol/L 20 - 31 mmol/L [place] Creatinine [Mass/Vol] 0.55 mg/dL 0.5 - 0.9 mg/d L [place] GFR >60 >60 mL/min [place], [place] GFR Non- >60 >60 mL/min [place] Glucose [Mass/Vol] 85 mg/dL 70 - 99 mg/dL [place], [place] Interpretation and review of laboratory results Abnormal [place] Potassium [Moles/Vol] 4.3 mmol/L 3.7 - 5.3 mmol/L [place] Protein [Mass/Vol] 6.7 g/dL 6.4 - 8.3 g/dL [place] Sodium [Moles/Vol] 134 mmol/L Low 135 - 144 mmol/L [place] Urea nitrogen [Mass/Vol] 11 mg/dL 6 - 20 mg/dL [place] HCG Qualitative, Serumon hCG Qual Negative NEGATIVE [place] Comment on above: Specimens with hCG l evels near the threshold of the test (25 mIU/mL) may give a negative or indeterminate result. In such cases, another test should be performed with a new specimen in 48-72 hours. If early is suspected clinically in this setting, correlation with quantitative serum b-hCG level is suggested. [facility] has confirmed the use of plasma for this test. This has not been cleared or approved by the U.S. Food and Drug Administration. The FDA has determined that such clearance is not necessary. HCG Screen, Bloodon 01-01-20 20 HCG Qn Negative Normal NEG [facility] Comment on above: Result Comment: Spec imens with hCG levels near the threshold of the test (25 mIU/mL) may give a negative or indeterminate result. In such cases, another test should be performed with a new specimen in 48-72 hours. If early is suspected clinically in this setting, correlation with quantitative serum b-hCG level is suggested. [facility] has confirmed the use of plasma for this test. This has not been cleared or approved by the U.S. Food and Drug Administration. The FDA has determined that such clearance is not necessary. Performed By: #### P HEP, HIVCMB #### [facility] [address] [place] [address] Fire Sprinkler Installer: Alvino Davila MD #### CP, CBC, HCG #### [facility] [address] [place] [address] Fire Sprinkler Installer: Luis A Peng MD HIV Ag/Abon 01-01-2020 HIV Ag/Ab NONREACTIVE Normal NR [facility] Comment on above: Result Comment: No l aboratory evidence of HIV infection. If acute HIV infection is suspected, consider testing for HIV-1 RNA. Performed By: #### P HEP, HIVCMB #### [facility] [address] [place] [address] Fire Sprinkler Installer: Alvino Davila MD #### CP, CBC, HCG #### [address] [place], [place] 2201983 Fire Sprinkler Installer: Luis A Peng MD HIV Screenon 01-01-2020 HIV Ag/Ab NONREACTIVE NONREACTIVE [place] Comment on above: No laboratory eviden ce of HIV infection. If acute HIV infection is suspected, consider testing for HIV-1 RNA. Hepatitis Acute [facility] 12-31 Hep A Ab,IgM NONREACTIVE Normal NR [facility] Comment on above: Performed By: #### P HEP, HIVCMB #### [address] [address] Fire Sprinkler Installer: Alvino Davila MD #### CP, CBC, HCG #### [address] [place], [place] 7555383 Fire Sprinkler Installer: Luis A Peng MD Hep B Core Ab,IgM NONREACTIVE Normal NR [facility] Comment on above: Performed By: #### P HEP, HIVCMB #### [address] [address] Fire Sprinkler Installer: Alvino Davila MD #### CP, CBC, HCG #### [address] [place], [place] 3993183 Fire Sprinkler Installer: Luis A Peng MD Hep B Surf Ag NONREACTIVE Normal NR [facility] Comment on above: Performed By: #### P HEP, HIVCMB #### [address] [address] Fire Sprinkler Installer: Alvino Davila MD #### CP, CBC, HCG #### [address] [place], [place] 1927[address] Fire Sprinkler Installer: Luis A ePng MD Hep C Ab NONREACTIVE Normal NR [facility] Comment on above: Result Comment: The [...] Performed By: #### P HEP, HIVCMB #### [facility] [address] [place] [address] Fire Sprinkler Installer: Alvino Davila MD #### CP, CBC, HCG #### [facility] [address] [place] [address] Fire Sprinkler Installer: Luis A Peng MD Hepatitis Panel, Acuteon HAV IgM IA Qn (S) NONREACTIVE NONREACTIVE [place] Hep B Core Ab, IgM NONREACTIVE NONREACTIVE [place] Hepatitis B Surface Ag NONREACTIVE NONREACTIVE [place] Hepatitis C Ab NONREACTIVE NONREACTIVE [place], [place] Comment on above: The hepatitis C [...] predicted among non-blacks MDRD (S/P/Bld) [Vol rate/Area] [place] Comment on above: Stage 1: Some [...] body mass. Additional eGFR calculator available at: http://www.[employer].com/multiple_crcl_2012.htm Vital Signs Date Time Vital Sign Value Performing Clinician Ld blackmon 05-16-2025 10:59-0400 Body mass index (BMI) [Ratio] 26.46 kg/m2 Mee Yary DO Work Phone: [facility] 05-16-2025 10:59-0400 Body weight 72.12 kg Mee Yary DO Work Phone: [facility] 05-16-2025 10:59-0400 Diastolic blood pressure 70 mm[Hg] Mee Yary DO Work Phone: [facility] 05-16-2025 10:59-0400 Systolic blood pressure 110 mm[Hg] Mee Yary DO Work Phone: [facility] 05-02-2025 15:42-0400 Body mass index (BMI) [Ratio] 26.26 kg/m2 Mee Yary DO Work Phone: [facility] 05-02-2025 15:42-0400 Body weight 71.58 kg Mee Yary DO Work Phone: [facility] 05-02-2025 15:42-0400 Diastolic blood pressure 70 mm[Hg] Mee Yary DO Work Phone: [facility] 05-02-2025 15:42-0400 Systolic blood pressure 104 mm[Hg] Mee Yary DO Work Phone: [facility] 04-18-2025 13:35-0400 Body mass index (BMI) [Ratio] 25.79 kg/m2 Mee Yary DO Work Phone: [facility] 04-18-2025 13:35-0400 Body weight 70.31 kg Mee Yary DO Work Phone: [facility] 04-18-2025 13:35-0400 Diastolic blood pressure 64 mm[Hg] Mee Yary DO Work Phone: [facility] 04-18-2025 13:35-0400 Systolic blood pressure 112 mm[Hg] Mee Yary DO Work Phone: [facility] 04-06-2025 11:47-0400 Body mass index (BMI) [Ratio] 25.76 kg/m2 Noms Nurse [facility] 04-06-2025 11:47-0400 Body weight 70.22 kg Noms Nurse [facility] Healthcare Encounters Encounter Date Encounter Type Care Provider Facility Start: 05-16-2025 End: 05-16-2025 Bamboo flowsheet Mee Yary DO Work Phone: [facility] Start: 05-16-2025 End: 05-16-2025 Bamboo flowsheet Mee Yary DO Work Phone: [facility] Start: 05-16-2025 End: 05-16-2025 Office outpatient visit 15 minutes Mee Yary DO Work Phone: [facility] Comment on above: 29 weeks gestation o f ([facility]); Third trimester ([facility]); Request for sterilization; H/O opioid abuse ([facility]); History of placental abruption Start: 05-16-2025 End: 05-16-2025 ambulatory MEE YARY Not Available Start: 05-02-2025 End: 05-02-2025 ambulatory MEE YARY Not Available Start: 05-02-2025 End: 05-02-2025 Office outpatient visit 15 minutes Mee Yary DO Work Phone: [facility] Comment on above: Second trimester pre gnancy ([facility]); 27 weeks gestation of ([facility]); Request for sterilization; H/O opioid abuse ([facility]); History of placental abruption Start: 05-02-2025 End: 05-02-2025 Bamboo flowsheet Mee Yary DO Work Phone: [facility] Start: 05-02-2025 End: 05-02-2025 Bamboo flowsheet Mee Yary DO Work Phone: [facility] Start: 04-18-2025 End: 04-18-2025 Bamboo flowsheet Mee Yary DO Work Phone: [facility] Start: 04-18-2025 End: 04-18-2025 Bamboo flowsheet Mee Yary DO Work Phone: [facility] Start: 04-18-2025 End: 04-18-2025 ambulatory MEE YARY Not Available Start: 04-18-2025 End: 04-18-2025 Office outpatient visit 15 minutes Mee Yary DO Work Phone: [facility] Comment on above: Second trimester pre gnancy ([facility]); 25 weeks gestation of ([facility]) Start: 04-09-2025 End: 04-09-2025 Clinisync Result Encounter Paradise MORROW Work Phone: [facility] Unsolicited Start: 04-09-2025 End: 04-09-2025 Clinisync Result Encounter Paradise MORROW Work Phone: [facility] Unsolicited Start: 04-06-2025 End: 04-06-2025 Office outpatient visit 5 minutes [facility] Yary Nurse [facility] Comment on above: GA: 23w6d Start: 04-06-2025 End: 04-06-2025 ambulatory MEE YARY Not Available Start: 01-22-2025 End: 01-22-2025 Clinisync [...] 03-27-2021 End: 03-28-2021 ambulatory Rody Monk MD Facility:[facility] Start: 12-06-2020 End: 12-07-[address] [facility] Start: 12-06-2020 End: 12-06-2020 Subsequent hospital visit by physician [facility] Start: 11-11-2020 End: 11-12-[address] [facility] Start: 05-30-2020 End: 05-31-[address] [facility] Start: 05-30-2020 End: 05-30-2020 Subsequent hospital visit by physician [facility] Start: 01-01-2020 End: 01-02-[address] [facility] Start: 01-01-2020 End: 01-01-2020 Subsequent hospital visit by physician [facility] Start: 09-20-2018 End: 09-21-2018 Patient encounter procedure Sidney Brandy Facility:[id number] Procedures Date Procedure Procedure Detail Performing Clinician Start: 05-16-2025 Urnls dip stick/tabl et rgnt non-auto w/o micrscp Mee Yary DO Work Phone: Start: 04-18-2025 Urnls dip stick/tabl et rgnt non-auto w/o micrscp Mee Yary DO Work Phone: Start: 04-09-2025 US OB ANATOMY Paradise MORROW Work Phone: Start: 04-09-2025 US OB CERVICAL LENGTH A edilma Cary MORROW Work Phone: Start: 04-06-2025 Urnls dip stick/tabl et rgnt non-auto w/o micrscp Mee Yary DO Work Phone: Start: 01-22-2025 US OB L= 14 WEEKS [...] Start: 05-30-2020 Gonadotropin chorion ic qualitative Malini Fritz Work Phone: Start: 01-01-2020 Acute hepatitis panel E RNIMAN CATRINA Start: 01-01-2020 Antibody hiv-1&hiv-2 single result MALINI CATRINA Start: 01-01-2020 Blood count complete automated MALINI FRITZ Start: 01-01-2020 Comprehensive metabo lic panel MALINI CATRINA Start: 01-01-2020 Gonadotropin chorion ic qualitative MALINI CATRINA Start: 01-01-2020 Acute hepatitis panel E rniman Fritz Work Phone: Start: 01-01-2020 Antibody hiv-1&hiv-2 single result Malini Fritz Work Phone: Start: 01-01-2020 Blood count complete automated Malini Fritz Work Phone: Start: 01-01-2020 Comprehensive metabo lic panel Malini Fritz Work Phone: Start: 01-01-2020 Gonadotropin chorion ic qualitative Malini Fritz Work Phone: Plan of Treatment Date Care Activity Detail Author Start: 07-02-2025 Influenza vaccination [facility] Start: 05-30-2025 End: 05-30-2025 Patient encounter procedure 05/30/2025 11:20 AM EDT Routine [facility] [address] [place] [id number] Paradise Olvera PA [address] [place] [address] [facility] Start: 05-30-2025 End: 05-30-2025 Professional / ancillary services management 05/30/2025 10:30 AM EDT Ancillary Procedure [facility] [address] [place] [id number] [facility] Start: 05-16-2025 End: 11-16-2025 US biophysical profile w non stress test US biophysical profile w non stress test Imaging Routine H/O opioid abuse ([facility]) History of placental abruption Expected: 05/16/2025 (Approximate), Expires: 11/16/2025 [facility] Work Phone: Comment on above: Expected: 05/16/2025 (Approximate), Expires: 11/16/2025 Start: 05-16-2025 End: 05-16-2025 Patient encounter procedure [facility] Comment on above: Arrived Start: 05-02-2025 End: 05-02-2025 Patient encounter procedure 05/02/2025 3:20 PM EDT Routine [facility] [address] [place], [place] [address] [place] [phone] Mee Pringle, DO [address] [place] [address] [facility] Start: 04-18-2025 End: 08-18-2025 US for US OB follow up transabdominal approach Imaging Routine Second trimester ([facility]) Expected: 04/18/2025, Expires: 08/18/2025 [facility] Work Phone: Comment on above: Expected: 04/18/2025 , Expires: 08/18/2025 Start: 04-18-2025 End: 04-18-2025 Patient encounter procedure 04/18/2025 1:30 PM EDT Routine [facility] [address] [place] [id number] Mee Pringle, DO [address] [place] [address] [facility] Start: 04-06-2025 End: 04-06-2026 ABO/Rh ABO/Rh Lab Routine Missed menses , unspecified gestational age ([facility]) Expected: 04/06/2025 (Approximate), Expires: 04/06/2026 [facility] Comment on above: Expected: 04/06/2025 (Approximate), Expires: 04/06/2026 Start: 04-06-2025 End: 04-06-2026 Blood type and Indirect antibody screen panel - Blood Type and screen Lab Routine Missed menses , unspecified gestational age ([facility]) Expected: 04/06/2025 (Approximate), Expires: 04/06/2026 [facility] Work Phone: Comment on above: Expected: 04/06/2025 (Approximate), Expires: 04/06/2026 Start: 04-06-2025 End: 04-06-2026 CBC panel - Blood by Automated count CBC Lab Routine Diabetes mellitus screening Expected: 04/06/2025 (Approximate), Expires: 04/06/2026 [facility] Comment on above: Expected: 04/06/2025 (Approximate), Expires: 04/06/2026 Start: 04-06-2025 End: 04-06-2026 Drugs of abuse panel - Urine by Screen method Rapid drug screen, urine Lab Routine , unspecified gestational age ([facility]) Encounter for supervision of normal first in first trimester ([facility]) Expected: 04/06/2025 (Approximate), Expires: 04/06/2026 [facility] Comment on above: Expected: 04/06/2025 (Approximate), Expires: 04/06/2026 Start: 04-06-2025 End: 04-06-2026 Measurement of glucose 1 hour after glucose challenge for glucose tolerance test Glucose tolerance, 1 hour Lab Routine Diabetes mellitus screening Expected: 04/06/2025 (Approximate), Expires: 04/06/2026 [facility] Comment on above: Expected: 04/06/2025 (Approximate), Expires: 04/06/2026 Start: 04-06-2025 End: 07-07-2025 US for US OB 14+ weeks anatomy scan Imaging Routine Screening, , for anatomic survey ([facility]) Expected: 04/06/2025, Expires: 07/07/2025 [facility] Comment on above: Expected: 04/06/2025 , Expires: 07/07/2025 Start: 07-02-2024 Influenza vaccination Influenza Vacc ine (#1) [facility] Start: 2022 Screening for malign ant neoplasm of cervix [facility] Start: 07-02-2020 Influenza vaccination Flu vaccine (# 1) [place], [place] Start: 2013 Screening for malign ant neoplasm of cervix Pap Smear [facility] Bacteria identified in Urine by Culture Urine culture Microbiology Routine Missed menses Ordered: 04/06/2025 [facility] Comment on above: Ordered: 04/06/2025 CBC W Auto Different ial panel - Blood CBC and differential Lab Routine Missed menses , unspecified gestational age ([facility]) Ordered: 04/06/2025 [facility] Comment on above: Ordered: 04/06/2025 Hemoglobin A1c/Hemoglobin.total in Blood Hemoglobin A1c Lab Routine Missed menses , unspecified gestational age ([facility]) Ordered: 04/06/2025 [facility] Comment on above: Ordered: 04/06/2025 Hepatitis B virus surface Ag [Presence] in Serum or Plasma by Immunoassay Hepatitis B surface antigen Lab Routine Missed menses , unspecified gestational age ([facility]) Ordered: 04/06/2025 [facility] Comment on above: Ordered: 04/06/2025 Hepatitis C virus Ab [Presence] in Serum or Plasma by Immunoassay Hepatitis C antibody Lab Routine Missed menses , unspecified gestational age ([facility]) Ordered: 04/06/2025 [facility] Comment on above: Ordered: 04/06/2025 HIV-1/HIV-2 antigen/antibody combination immunoassay HIV-1 and HIV-2 antibodies Lab Routine Missed menses , unspecified gestational age ([facility]) Ordered: 04/06/2025 [facility] Comment on above: Ordered: 04/06/2025 Reagin Ab [Presence] in Serum by RPR RPR Lab Routine Missed menses , unspecified gestational age ([facility]) Ordered: 04/06/2025 [facility] Comment on above: Ordered: 04/06/2025 Rubella antibody, IgG Rubella an tibody, IgG Lab Routine Missed menses , unspecified gestational age ([facility]) Ordered: 04/06/2025 [facility] Comment on above: Ordered: 04/06/2025 Payers Date Payer Category Payer Medicaid (Managed Care) [facility] MEDICAID [id number] 2021 Unknown 2019 Unknown [facility] xxxxxxxxxxxx 2019-Present [phone] [place] [address] xxxxxxxxxxxx [id number] 2019 Unknown [facility] [id number] 2019-Present [phone] [place] [address] [id number] 1992 Unknown [id number] 2.16.840.1.398042.3.579.2. 173 1992 Unknown [id number] 2.16.840.1.236246.3.579.2. 173 1992 Unknown [id number] 2.16.840.1.147483.3.579.2. 173 1992 Unknown [id number] 2.16.840.1.497145.3.579.2. 173 1992 Unknown [id number] 2.16.840.1.886599.3.579.2. 196 1992 Unknown [id number] 2.16.840.1.015484.3.579.2. 593 1992 Unknown [id number] 2.16.840.1.406579.3.579.2. 593 1992 Unknown [id number] 2.16.840.1.189906.3.579.2. 593 1992 Unknown [id number] 2.16.840.1.065088.3.579.2. 593 1992 Unknown [id number] 2.16.840.1.028874.3.579.2. 593 1992 Unknown [id number] 2.16.840.1.184271.3.579.2. 593 1992 Unknown [id number] 2.16.840.1.970584.3.579.2. 1259 1992 Unknown [id number] 2.16.840.1.635046.3.579.2. 1259 1992 Unknown [id number] 1992 Unknown [id number] 1957 Unknown [id number] Social History Date Type Detail Facility Tobacco smoking stat [facility] Unknown if ever smoked [place], [place] Start: 1990 Sex Assigned At Not on file [facility] [place], [place] Start: 04-23-2023 Tobacco smoking stat [facility] Smokes tobacco daily [facility] History of tobacco use Cigarette Smoker [facility] Start: 04-23-2023 Tobacco use and exposure Smokeless tobacco non-user [facility] Start: 04-23-2023 End: 05-16-2025 Alcoholic beverage intake Lifetime non-drinker (finding) [facility] Start: 04-23-2023 Tobacco Comment Smokes 6-10 ci garettes per day [facility] Start: 04-06-2025 Gender identity Not on file [facility] Start: 04-06-2025 History of Social function [facility] Start: 11-04-2024 [facility] History of Present illness Narrative 05-16-2025 Raine Aguilar LPN - 05/16/2025 11:00 AM EDT Note Date & Type Note Facility 05-16-2025 History of Presen t illness Narrative Reason for Appointment: Patient ID: Carmelita Cason is a 34 y.o. female who presents [...] (HCC) BMI 28.0-28.9,adult Drug abuse, opioid type ([facility]) Encounter for follow-up Encounter for gynecological examination (general) (routine) without abnormal findings Labial cyst Pain pelvic HISTORY PAST MEDICAL HISTORY SOCIAL HISTORY Past Medical History: Diagnosis Date Abscess of labia Bipolar disorder (HCC) BMI 28.0-28.9,adult Drug abuse, opioid type ([facility]) Encounter for follow-up Encounter for gynecological examination [...] nursing note reviewed. Exam conducted with a china painter present. Vitals: Estimated body mass index is 26.46 kg/m as calculated from the following: Height as of 12/09/22: 5' 5 . Weight as of this encounter: 159 lb. BP: 110/70 No LMP recorded. Patient is . ASSESSMENT & PLAN ICD-10-CM 1. 29 weeks gestation of ([facility]) Z3A.29 POCT urinalysis dipstick manually resulted 2. Third trimester ([facility]) Z34.93 POCT urinalysis dipstick manually resulted 3. Request for sterilization Z30.2 4. H/O opioid abuse ([facility]) F11.11 5. History of placental abruption Z87.59 [...] by Raine Aguilar LPN on behalf of: Mee Pringle DO documented in this encounter [facility] History of Present illness Narrative 05-02-2025 Raine Aguilar LPN - 05/02/2025 3:20 PM EDT Note Date & Type Note Facility 05-02-2025 History of Presen t illness Narrative Reason for Appointment: Patient ID: Carmelita Cason is a 34 y.o. female who presents [...] (HCC) BMI 28.0-28.9,adult Drug abuse, opioid type ([facility]) Encounter for follow-up Encounter for gynecological examination (general) (routine) without abnormal findings Labial cyst Pain pelvic HISTORY PAST MEDICAL HISTORY SOCIAL HISTORY Past Medical History: Diagnosis Date Abscess of labia Bipolar disorder (HCC) BMI 28.0-28.9,adult Drug abuse, opioid type ([facility]) Encounter for follow-up Encounter for gynecological examination [...] nursing note reviewed. Exam conducted with a china painter present. Vitals: Estimated body mass index is 26.26 kg/m as calculated from the following: Height as of 12/09/22: 5' 5 . Weight as of this encounter: 157 lb 12.8 oz. BP: 104/70 No LMP recorded. Patient is . ASSESSMENT & PLAN ICD-10-CM 1. Second trimester ([facility]) Z34.92 2. 27 weeks gestation of ([facility]) Z3A.27 3. Request for sterilization Z30.2 4. H/O opioid abuse ([facility]) F11.11 5. History of placental abruption Z87.59 Return OB: Patient presents today for a routine obstetrics appointment. Patient is currently 27w4d . Patient states she is doing well but has complaints of being tired due to current . Patient has verbalizes frequent movement. labor precautions was discussed/given and patient was instructed to perform kick counts three times a day. No orders of the defined types were placed in this encounter. Follow Up: Patient is to return to office in 2 week for routine OB appointment. Documented by Raine Aguilar LPN on behalf of: Mee Pringle DO documented in this encounter [facility] History of Present illness Narrative 04-18-2025 Kathleen Rob NP - 04/18/2025 1:30 PM EDT Note Date & Type Note Facility 04-18-2025 History of Presen t illness Narrative Reason for Appointment: Patient ID: Carmelita Cason is a 34 y.o. female who presents [...] Diagnosis Date Abscess of labia Bipolar disorder ([facility]) BMI 28.0-28.9,adult Drug abuse, opioid type ([facility]) Encounter for follow-up Encounter for gynecological examination (general) (routine) without abnormal findings Labial cyst Pain pelvic HISTORY PAST MEDICAL HISTORY SOCIAL HISTORY Past Medical History: Diagnosis Date Abscess of labia Bipolar disorder ([facility]) BMI 28.0-28.9,adult Drug abuse, opioid type ([facility]) Encounter for follow-up Encounter for gynecological examination [...] nursing note reviewed. Exam conducted with a china painter present. Vitals: Estimated body mass index is 25.79 kg/m as calculated from the following: Height as of 12/09/22: 5' 5 . Weight as of this encounter: 155 lb. BP: 112/64 No LMP recorded. Patient is . ASSESSMENT & PLAN ICD-10-CM 1. Second trimester ([facility]) Z34.92 POCT urinalysis dipstick manually resulted 2. 25 weeks gestation of ([facility]) Z3A.25 Return OB: Patient presents [...] by Kathleen Rob NP on behalf of: Mee Pringle DO documented in this encounter [facility] History of Present illness Narrative 04-06-2025 Olive LeonJEANNE - 04/06/2025 11:00 AM EDT Note Date & Type Note Facility 04-06-2025 History of Presen t illness Narrative Reason for Appointment: Patient ID: Carmelita Cason is a 34 y.o. female who presents for Amenorrhea Patient presents today for a Nurse OB Intake appointment. Patient is 24w6d with a Estimated Date of Delivery: 07/28/25 OB History Para Term AB Living 1 SAB IAB Ectopic Multiple Live Births # Outcome Date GA Lbr Jaiden/2nd Weight Sex Type Anes PTL Lv 1 Current Current Medications: has a current medication list which includes the following prescription(s): quetiapine, suboxone, gabapentin, and magnesium oxide. Medical History: Active Ambulatory Problems Diagnosis Date Noted No Active Ambulatory Problems Resolved Ambulatory Problems Diagnosis Date Noted No Resolved Ambulatory Problems Past Medical History: Diagnosis Date Abscess of labia Bipolar disorder (HCC) BMI 28.0-28.9,adult Drug abuse, opioid type ([facility]) Encounter for follow-up Encounter for gynecological examination (general) (routine) without abnormal findings Labial cyst Pain pelvic Family History Problem Relation Name Age of Onset Mental illness Mother Cancer Mother Hypertension Mother Hypertension Father Mental illness Father Cancer Father Mental illness Brother Mental illness Maternal Grandmother Mental illness Paternal Grandmother Social History Tobacco Use Smoking status: Every Day Types: Cigarettes Smokeless tobacco: Never Tobacco comments: Smokes 6-10 cigarettes per day Substance Use Topics Alcohol use: Never Drug use: Not Currently Past Surgical History: Procedure Laterality Date SECTION, LOW TRANSVERSE 07/2015 DILATION AND CURETTAGE 11/2007 Allergies Allergen Reactions Penicillin G Other Reaction(s): childhood/unknown, Unknown Vitals: Estimated body mass index is 25.76 kg/m as calculated from the following: Height as of 12/09/22: 5' 5 . Weight as of this encounter: 154 lb 12.8 oz. BP: No LMP recorded. Patient is . Assessment/Plan Diagnoses and all orders for this visit: Missed menses - Type and screen; Future - ABO/Rh; Future - CBC and differential - Hemoglobin A1c - RPR - Rubella antibody, IgG - Hepatitis B surface antigen - Hepatitis C antibody - HIV-1 and HIV-2 antibodies - Urine culture - POCT , urine manually resulted - POCT urinalysis dipstick manually resulted , unspecified gestational age ([facility]) - Type and screen; Future - ABO/Rh; Future - CBC and differential - Hemoglobin A1c - RPR - Rubella antibody, IgG - Hepatitis B surface antigen - Hepatitis C antibody - HIV-1 and HIV-2 antibodies - Rapid drug screen, urine; Future Encounter for supervision of normal first in first trimester ([facility]) - Rapid drug screen, urine; Future Screening, , for anatomic survey ([facility]) - OB 14+ weeks anatomy scan; Future Diabetes mellitus screening - CBC; Future - Glucose tolerance, 1 hour; Future headache in second trimester ([facility]) - magnesium oxide (Mag-Ox) 400 MG tablet; Take 1 tablet (400 mg) by mouth Daily Nurse Note: OB Intake: Patient presents today for first OB visit. Patients history has been reviewed in great detail including any potential risks. Patient signed consent forms and patient desires testing in both trimesters. Patient currently has no complaints and has been advised to drink 6-8 glasses of water a day, eat no raw or undercooked meat, and stay away from [facility]. Patient has also been advised to not change litter boxes and eat 6 small meals a day. Patient has been consulted regarding the do's and don'ts of . Patient was given labs and all questions and concerns were answered. Follow Up: Patient is to return in 4 weeks for routine OB appointment. Follow Up: Patient is to have labs drawn at directed and return to office for initial OB appointment with provider. Patient may call office as needed with any concerns or questions. Nurse Visit Completed by: Olive Leon LPN documented in this encounter [facility] Evaluation note Note Date & Type Note Facility Evaluation note Diagnosis Missed menses , unspecified gestational age ([facility]) Encounter for supervision of normal first in first trimester ([facility]) Screening, , for anatomic survey ([facility]) Encounter for anatomic survey Diabetes mellitus screening Screening for diabetes mellitus headache in second trimester ([facility]) documented in this encounter [facility] Evaluation note Note Date & Type Note Facility Evaluation note Diagnosis Second trimester ([facility]) state, incidental 25 weeks gestation of ([facility]) documented in this encounter [facility] Evaluation note Note Date & Type Note Facility Evaluation note Diagnosis Second trimester ([facility]) state, incidental 27 weeks gestation of ([facility]) Request for sterilization H/O opioid abuse ([facility]) History of placental abruption documented in this encounter [facility] Evaluation note Note Date & Type Note Facility Evaluation note Diagnosis 29 weeks gestation of ([facility]) Third trimester ([facility]) state, incidental Request for sterilization H/O opioid abuse ([facility]) History of placental abruption documented in this encounter [facility] Summary Purpose Family History No Family History Records FoundNo Family History Records FoundNo Family History Records FoundNo Family History Records FoundNo Family History Records Found Advance Directives No Advanced Directives Records FoundDocuments on File Type Date Recorded Patient Policy Advisor Expl anation Advance Directives and Living Will Power of Market Development Manager Documents on File Type Date Recorded Patient Policy Advisor Expl anation ACP-Advance Directive ACP-Power of Market Development Manager Additional Source Comments INFORMATION SOURCE (unrecogn ized section and content) DATE CREATED AUTHOR 10/10/2018 Abdoul Wells [facility] DATE CREATED AUTHOR AUTHOR'S ORGANIZ ATION 12/06/2020 [facility] DATE CREATED AUTHOR AUTHOR'S ORGANIZ ATION 03/29/2021 [facility] DATE CREATED AUTHOR AUTHOR'S ORGANIZ ATION 12/10/2022 [facility] DATE CREATED AUTHOR AUTHOR'S ORGANIZ ATION 05/20/2025 [facility] EPIC Reason for Visit (unrecogniz ed section and content) Reason Comments Amenorrhea Reason Comments Routine Visit FOR RECORDS PERTAINING TO PATIENTS WHO ARE [...] BE BASED ON THE PRIMARY CLINICAL RECORDS. [employer] provides no warranty or guarantee of the accuracy or completeness of information in this document.
[2025-05-21 11:50] LABS: Hematocrit 30.6 % (36.0-48.0); Hemoglobin 10.8 g/dL (12.0-16.0); Immature Granulocytes Abs Auto 0.10 10^3/uL (0.00-0.03); Immature Granulocytes Pct Auto 0.8 % (0.0-0.5); Lymphocytes Absolute Auto 3.0 10^3/uL (1.2-3.8); Mean Corpuscular HGB Conc 35.3 g/dL (29.9-35.2); Mean Corpuscular Hemoglobin 28.0 pg (26.7-34.0); Mean Corpuscular Volume 79.3 fL (81.0-99.0); Platelet Count 176 10^3/uL (150-450); Red Blood Count 3.86 10^6/uL (4.20-5.40); White Blood Count 11.8 10^3/uL (4.0-11.0)
[2025-05-21 12:04] LABS: Cannabinoid Screen Urine NEGATIVE (NEGATIVE); Methamphetamines Screen Urine NEGATIVE (NEGATIVE)
[2025-05-21 12:05] LABS: Tricyclic Antidepressant Urine NEGATIVE (NEGATIVE)
[2025-05-22 04:07] LABS: Rubella Antibodies, IgG <0.90 index (Immune >0.99)
[2025-05-22 12:09] LABS: Rapid Plasma Reagin, Quant Non Reactive titer (NonRea<1:1)
[2025-05-24 12:09] LABS: Buprenorphine Conf, MS, UR 525 ng/mL (Cutoff=10); Norbuprenorphine Conf, MS,UR 905 ng/mL (Cutoff=10)
== END 2025-05-21 11:16 | disposition home or self-care (01) ==
LOC: LAB 11:17
PROVIDERS: PCP Nurse Practitioner Family; Visit Provider Obstetrics & Gynecology
DX: Z13.1 Encounter for screening for diabetes mellitus (principal); N92.6 Irregular menstruation, unspecified
CPT/HCPCS: 36415; 80299; 80307; 83036; 85025; 86592; 86762; 86803; 86850; 86900; 86901; 87086; 87340; 87389; 87522

== ENCOUNTER 2025-06-05 08:53 | Outpatient (OUT) | payer OTHER, SELFPAY ==
--- OUTSIDE RECORDS SUMMARY | 2019-12-25 20:00 | XMS_ITS | Continuity of Care Document ---
Author Organization [facility] Address [address] [place] [address] Phone Care Team Providers Care Citrix Administrator Name Role Phone Pavlock DO, Max Unavailable [...] drug services- Acute Deto x Acute Detox Traveling Nurse Acute Detox Traveling Nurse DRUG TEST PRSMV DIR OPT OBS URINE TEST Acute Detox Traveling Nurse Advance Directives Directive Yes / No Effective Date File Name No Information Encounters Encounter Description Practice Location Reason(s) For Visit Diagnoses Date Provider Providers Copied on Encounter [facility], [address] [place] [address], [id number] , tel: [phone] [facility] Detox Opioid dependence with withdrawalAlcohol dependence with withdrawal, uncomplicated 0 Pavlock DO Max. [address] [place] [address], [id number] , [place]. tel: [phone] [facility], [address] [place] [address], [id number] , tel: [phone] [facility] Detox Opioid dependence with withdrawal 0 Pavlock DO Max. [address] [place] [address], [id number] , [place]. tel: [phone] [facility], [address] [place], [place], [id number] , [place] tel: [phone] [facility] Detox Opioid dependence with withdrawal Feb-2 0 Pavlock DO Max. [address] [place], [place], [id number] , [place]. tel: [phone] [facility], [address] [place], [place], [id number] , [place] tel: [phone] [facility] Detox alcohol and heroin dependence (chief complaint) Opioid dependence with withdrawalAlcohol dependence with withdrawal, uncomplicated Feb-2 0 [place]ina Ayala. [address] [place], [place], [id number] , [place]. tel: [phone] [facility], [address] [place] [address], [id number] , [place] tel: [phone] [facility] Detox Opioid dependence with withdrawal Feb-2 0 Pavlock DO Max. [address] [place], [place], [id number] , [place]. tel: [phone] [facility], [address] [place] [address], [id number] , [place] tel: [phone] [facility] Detox Opioid dependence with withdrawalEncounter for test, result negative b-2 0 Pavlock DO Max. [address] [place], [place], [id number] , [place]. tel: [phone] Family History Family Member Type Diagnosis Age At Onset No Information Payers Payer name Insurance type Covered libertarian ID Homar sellers(s) [facility] [id number] Social History Type Description Quantity Date Captured [...]
--- OUTSIDE RECORDS SUMMARY | 2025-04-18 13:30 | XMS_ITS | Encounter Summary ---
Author Organization [facility] Address [address] [place] [address] Care Team Providers Care Door To Door Selling Distributor Name Role Phone Unavailable Primary Care Provider Unavailabl e Reason for Visit * Reason Comments Routine Visit Encounter Details Date Type Department Care Team (Late st Contact Info) Description 04/18/2025 1:30 PM EDT Routine [facility] [address] [address] Tony Pringle DO [address] Mauro Clement, [facility]11 Second trimester ([facility]); 25 weeks gestation of ([facility]); Abnormal ultrasonic finding on screening of mother, [...] (HCC) BMI 28.0-28.9,adult Drug abuse, opioid type ([facility]) Encounter for follow-up Encounter for gynecological examination (general) (routine) without abnormal findings Labial cyst Pain pelvic HISTORY PAST MEDICAL HISTORY SOCIAL HISTORY Past Medical History: Diagnosis Date Abscess of labia Bipolar disorder (HCC) BMI 28.0-28.9,adult Drug abuse, opioid type ([facility]) Encounter for follow-up Encounter for gynecological [...] nursing note reviewed. Exam conducted with a hunter present. Vitals: Estimated body mass index is 25.79 kg/m?? as calculated from the following: Height as of 12/09/22: 5' 5 . Weight as of this encounter: 155 lb. BP: 112/64 No LMP recorded. Patient is . ASSESSMENT & PLAN ICD-10-CM 1. Second trimester ([facility] Z34.92 POCT urinalysis dipstick manually resulted 2. 25 weeks gestation of ([facility]) Z3A.25 Return OB: Patient presents today for [...] documented in this encounter Plan of Treatment Scheduled Orders Name Type Priority Associated Diagnoses Orde r Schedule US OB follow up transabdominal approach Imaging Routine Second trimester ([facility]) Abnormal ultrasonic finding on screening of mother, antepartum Expected: 04/18/2025, Expires: 08/18/2025 documented as of this encounter Procedures Procedure Name Priority Date/Time Associated Diagnosis Comments POCT URINALYSIS DIPSTICK Routine 04/18/2025 1:44 PM EDT Second trimester ([facility]) documented in this encounter Results * (ABNORMAL) [...] this encounter Visit Diagnoses Diagnosis Second trimester ([facility]) state, incidental 25 weeks gestation of ([facility]) Abnormal ultrasonic finding on screening of mother, antepartum documented in this encounter
--- OUTSIDE RECORDS SUMMARY | 2025-05-16 11:00 | XMS_ITS | Encounter Summary ---
Author Organization [facility] Address [address] [place] [address] Care Team Providers Care Tax Staff Accountant Name Role Phone Unavailable Primary Care Provider Unavailabl e Reason for Visit * Reason Comments Routine Visit Encounter Details Date Type Department Care Team (Late st Contact Info) Description 05/16/2025 11:00 AM EDT Routine [facility] [address] [place] [address] Tony Pringle DO [address] [place], [facility]11 29 weeks gestation of ([facility]); Third trimester ([facility]); Request for sterilization; H/O opioid abuse ([facility] History of placental abruption; Abnormal ultrasonic finding on screening of mother, [...] in this encounter Progress Notes * Raine Aguilar, BAND SHOVER - 05/16/2025 11:00 AM EDT Reason for [...] (HCC) BMI 28.0-28.9,adult Drug abuse, opioid type ([facility] Encounter for follow-up Encounter for gynecological examination (general) (routine) without abnormal findings Labial cyst Pain pelvic HISTORY PAST MEDICAL HISTORY SOCIAL HISTORY Past Medical History: Diagnosis Date Abscess of labia Bipolar disorder (HCC) BMI 28.0-28.9,adult Drug abuse, opioid type ([facility]) Encounter for follow-up Encounter [...] nursing note reviewed. Exam conducted with a line worker present. Vitals: Estimated body mass index is 26.46 kg/m?? as calculated from the following: Height as of 12/09/22: 5' 5 . Weight as of this encounter: 159 lb. BP: 110/70 No LMP recorded. Patient is . ASSESSMENT & PLAN ICD-10-CM 1. 29 weeks gestation of ([facility]) Z3A.29 POCT urinalysis dipstick manually resulted 2. Third trimester ([facility]) Z34.93 POCT urinalysis dipstick manually resulted 3. Request for sterilization Z30.2 4. H/O opioid abuse ([facility]) F11.11 5. History of placental abruption Z87.59 [...] stress test Imaging Routine H/O opioid abuse ([facility]) History of placental abruption Expected: 05/16/2025 (Approximate), Expires: 11/16/2025 documented as of this encounter Procedures Procedure Name Priority Date/Time Associated Diagnosis Comments POCT URINALYSIS DIPSTICK Routine 05/16/2025 11:03 AM EDT 29 weeks gestation of ([facility]) Third trimester ([facility]) documented in this encounter Results * (ABNORMAL) [...] Positive Urine 05/16/2025 11:0 3 AM EDT Tony Pringle DO POINT OF CARE TEST ENTER/EDIT OR DERABLES Final Result documented in this encounter Visit Diagnoses Diagnosis 29 weeks gestation of ([facility]) Third trimester ([facility]) state, incidental Request for sterilization H/O opioid abuse ([facility]) History of placental abruption Abnormal ultrasonic finding on screening of mother, antepartum documented in this encounter
--- OUTSIDE RECORDS SUMMARY | 2025-05-30 09:15 | XMS_ITS | Encounter Summary ---
Author Organization [facility] Address [id number] [address] [place] [address] Care Team Providers Care Hotshot Superintendent Name Role Phone No Pcp, No Pcp Primary Care Provider Unavailabl e Reason for Referral * Diagnostic Imaging (Routine) - Pending Review Specialty Diagnoses / Procedures Referred By Contac t Referred To Contact Maternal and Medicine Diagnoses Screening, , for anatomic survey Procedures US MFM with or without consult Mee Pringle DO [address] [place] [address] Phone: tel: fax: Maternal- Medicine at [facility] [address] [place] [address] Phone: tel: fax: Referral ID Status Reason Start Date Expiration Date V isits Requested Visits Authorized [id number] Pending Review 05/30/2025 05/30/2026 1 1 Reason for Visit * Diagnostic Imaging (Routine) - Pending Review Specialty Diagnoses / Procedures Referred By Contac t Referred To Contact Maternal and Medicine Diagnoses Screening, , for anatomic survey Procedures US MFM with or without consult Mee Pringle DO [address] [place] [address] Phone: tel: fax: Maternal- Medicine at [facility] [address] [place] [address] Phone: tel: fax: Referral ID Status Reason Start Date Expiration Date V isits Requested Visits Authorized [id number] Pending Review 05/30/2025 05/30/2026 1 1 Encounter Details Date Type Department Care Team (Latest Contact Info) Description 05/30/2025 9:15 AM EDT - 05/30/2025 11:59 PM EDT Hospital Encounter [facility] - [facility] US Imaging [address] [place] [phone] Screening, , for anatomic survey Discharge Disposition: Home Social History Tobacco Use Types Packs/Day Years Used Date Smoking Tobacco: Former Cigarettes Smokeless Tobacco: Never Alcohol Use Standard Drinks/Week Comments Not Currently 0 (1 standard drink = 0.6 oz pur e alcohol) Childcare Answer Date Recorded Childcare Unknown 04/12/2019 Employment Answer Date Recorded Employment Unknown 04/12/2019 Hunger Screening Answer Date Recorded Within the past 12 months we worried whether our food would run out before we got money to buy more. Never True 05/30/2025 Within the past 12 months th e food we bought just didn't last and we didn't have money to get more. Never True 05/30/2025 Purpose - Life Answer Date Recorded Purpose and direction in life Unknown Estimated Date of Delivery Comme nts Yes 07/28/2025 Based on Ultraso und Sex and Gender Information Value Date Recorded Sex Assigned at Not on file Legal Sex Female 11:49 AM EDT Gender Identity Not on file Sexual Orientation Not on file documented as of this encounter Medications at Time of Discharge buprenorphine-nalo xone (SUBOXONE) 8-2 mg film Dissolve 1 Film on tongue in the morning. FLUoxetine (PROzac) 40 mg capsule Take 60 mg by mouth daily. gabapentin (NEURONTIN) 100 mg capsule Take 1 capsule (100 mg total) by mouth before bedtime. hydrOXYzine (VISTARIL) 100 mg capsule Take 100 mg by mouth daily. magnesium oxide (MAGOX) 400 mg tablet Take 1 tablet (400 mg total) by mouth in the morning. naltrexone microspheres (VIVITROL IM) Inject into the appropriate muscle. no115/iron/folic acid ( 19 ORAL) Take 1 tablet by mouth before bedtime. QUEtiapine (SEROquel) 200 mg tablet Take 50 mg by mouth nightly. documented as of this encounter Plan of Treatment Upcoming Encounters Date Type Department Care Team (Late st Contact Info) Description 07/05/2025 1:00 PM EDT Appointment [facility] - [facility] US Imaging [address] [place] [phone] 07/05/2025 2:30 PM EDT Office Visit Maternal- Medicine at [facility] [address] [place] [phone] Tasia Dowd MD [address] [facility] 1st [address] [place], [place] [id number] documented as of this encounter Procedures Procedure Name Priority Date/Time Associated Diagnosis Comments [facility] COMPREHENSIVE ANATOMIC SURVEY Routine 05/30/2025 10:52 AM EDT Screening, , for anatomic survey documented in this encounter Results * [facility] COMPREHENSIVE ANATOMIC SURVEY (05/30/2025 10:52 AM EDT) Anatomical Region Laterality Modality OB-CRIPPLE WORKER Ultrasound 05/30/2025 9:40 AM EDT Narrative 05/30/2025 12:58 PM EDT NAME: YOAV MUNOZ : 1990 SEX: F Accession Number: [id number] ORDERING PHYSICIAN: MEE PRINGLE REFERRING PHYSICIAN: MEE PRINGLE Coding ----- --------- Procedures [id number]: Ultrasound, uterus, real time with image documentation, and maternal evaluation plus detailed anatomic examination, transabdominal approach;single or first gestation Indication ----- --------- Screening for Anatomic Survey, Hepatitis C in , Malformation of placenta- complete circumvallate,History of prior with delivery- placental abruption, Previous History ----- --------- OB History 4. Para 3 [id number] Maternal Assessment ----- --------- Physical Exam Initial weight 73 kg, 162 lb Method ----- --------- Transabdominal ultrasound examination. View: Suboptimal view: limited by late gestational age, and position. ----- --------- Scott . Number of fetuses: 1 Dating ----- --------- Previous Ultrasound on: 01/22/2025 Type of prior assessment: GA GA at prior assessment date 13 w + 2 d GA by previous U/S 31 w + 4 d GIAN by previous Ultrasound: 07/28/2025 Ultrasound examination on: 05/30/2025 GA by U/S based upon: AC, BPD, Femur, HC GA by U/S 31 w + 5 d GIAN by U/S: 07/27/2025 Assigned: based on ultrasound (GA), selected on 05/30/2025 Assigned GA 31 w + 4 d Assigned GIAN: 07/28/2025 General Evaluation ----- --------- Cardiac activity Present. FHR 135 bpm. Presentation: breech Placenta: Placental site: posterior, fundal, away from cervical os Umbilical cord: Cord vessels: 3 vessel cord. Insertion site: marginal insertion Amniotic fluid: Amount of AF: polyhydramnios. MVP 9.5 cm Biometry ----- --------- Standard BPD 79.5 mm 31w 6d 51% Hadlock OFD 105.7 mm 34w 6d 97% Mara HC 297.9 mm 33w 0d 51% Hadlock Cerebellum tr 40.7 mm 32w 4d 60% Hill AC 279.3 mm 32w 0d 60% Hadlock Femur 56.9 mm 29w 6d 5% Hadlock Humerus 55.2 mm 32w 1d 67% Mara HC / AC 1.07 EFW 1,764 g 34% Hadlock EFW (lb) 3 lb EFW (oz) 14 oz EFW by: Hadlock ([id number]-FL) Extended Tibia 48.3 mm 29w 1d 6% Mara Lithopress Operator 2.3 mm CM 9.6 mm 95% Nicolaides Head / Face / Neck Cephalic index 0.75 10% Nicolaides Nasal bone: present Extremities / Bony Struc FL / BPD 0.72 FL / HC 0.19 FL / AC 0.20 Other Structures FHR 135 bpm Anatomy ----- --------- The following structures appear normal: Head/Neck: Cranium. Lateral ventricles. Choroid plexus. Midline falx. Cavum septi pellucidi. Cerebellum. Cisterna magna. Parenchyma. Vermis. Face: Lips. Nose. Nasal bone. Maxilla. Orbits. Heart/Thorax: 4-chamber view. RVOT view. LVOT view. 3-vessel view. 6-sjfptl-sednrkd view. Situs. Bicaval view. Interventricular septum. Great vessels. Cardiac position. Cardiac axis. Cardiac size. Cardiac rhythm. Right lung. Left lung. Diaphragm. Abdomen: Stomach. Kidneys. Bladder. Small bowel. Large bowel. Genitals. Extremities/Skeleton: Right upper arm. Right forearm. Left hand. Right upper leg. Right lower leg. Right foot. Left upper leg. Left foot. The following structures could not be adequately visualized: Face Profile. Heart / Thorax Aortic arch view. Ductal arch view. Abdomen Abdom. wall. Spine: Cervical spine. Thoracic spine. Lumbar spine. Sacral spine. Extremities / Right hand. Skeleton The following structures could not be examined: Head / Neck Neck. Nuchal fold. Face Mandible. Abdomen Cord insertion. Right renal artery. Left renal artery. Extremities / Left upper arm. Left forearm. Left lower leg. Skeleton Maternal Structures ----- --------- Uterus Visualized Cervix Suboptimal Approach - Transabdominal Right Ovary Not visualized Left Ovary Not visualized Cul de Sac Suboptimal Impression ----- --------- Single viable intrauterine consistent with 31w 4d with an GIAN of 07/28/2025. Amniotic fluid MVP measures 9.5 cm. Mild Polyhydramnios. Complete circumvallate placenta noted. Recommendations ----- --------- Please see [facility] documentation from today. The patient is scheduled in four week(s) to complete anatomic survey. Subsequent follow up or other follow up as clinically determined by primary OB provider unless otherwise specified by M. Results forwarded to ordering provider so they can follow up with the patient as necessary. Procedure Note Nohemy Hernandez MD - 05/30/2025 NAME: YOAV MUNOZ : 1990 SEX: F Accession Number: [id number] ORDERING PHYSICIAN: MEE PRINGLE REFERRING PHYSICIAN: MEE PRINGLE Coding ----- --------- Procedures [id number]: Ultrasound, uterus, real time with imagedocumentation, and maternal evaluation plus detailed anatomic examination, transabdominalapproach;single or first gestation Indication ----- --------- Screening for Anatomic Survey, Hepatitis C in , Malformation ofplacenta- complete circumvallate,History of prior with delivery- placental abruption, Previous History ----- --------- OB History 4. Para 3 [id number] Maternal Assessment ----- --------- Physical Exam Initial weight 73 kg, 162 lb Method ----- --------- Transabdominal ultrasound examination. View: Suboptimal view: limited bylate gestational age, and position. ----- --------- Scott . Number of fetuses: 1 Dating ----- --------- Previous Ultrasound on: 01/22/2025 Type of prior assessment: GA GA at prior assessment date 13 w + 2 d GA by previous U/S 31 w + 4 d GIAN by previous Ultrasound: 07/28/2025 Ultrasound examination on: 05/30/2025 GA by U/S based upon: AC, BPD, Femur, HC GA by U/S 31 w + 5 d GIAN by U/S: 07/27/2025 Assigned: based on ultrasound (GA), selected on 05/30/2025 Assigned GA 31 w + 4 d Assigned GIAN: 07/28/2025 General Evaluation ----- --------- Cardiac activity Present. FHR 135 bpm. Presentation: breech Placenta: Placental site: posterior, fundal, away from cervical os Umbilical cord: Cord vessels: 3 vessel cord. Insertion site: marginalinsertion Amniotic fluid: Amount of AF: polyhydramnios. MVP 9.5 cm Biometry ----- --------- Standard BPD 79.5 mm 31w 6d 51% Hadlock OFD 105.7 mm 34w 6d 97% Mara HC 297.9 mm 33w 0d 51% Hadlock Cerebellum tr 40.7 mm 32w 4d 60% Hill AC 279.3 mm 32w 0d 60% Hadlock Femur 56.9 mm 29w 6d 5% Hadlock Humerus 55.2 mm 32w 1d 67% Mara HC / AC 1.07 EFW 1,764 g 34% Hadlock EFW (lb) 3 lb EFW (oz) 14 oz EFW by: Hadlock ([id number]-FL) Extended Tibia 48.3 mm 29w 1d 6% Mara Lithopress Operator 2.3 mm CM 9.6 mm 95% Nicolaides Head / Face / Neck Cephalic index 0.75 10% Nicolaides Nasal bone: present Extremities / Bony Struc FL / BPD 0.72 FL / HC 0.19 FL / AC 0.20 Other Structures FHR 135 bpm Anatomy ----- --------- The following structures appear normal: Head/Neck: Cranium. Lateral ventricles. Choroid plexus. Midline falx.Cavum septi pellucidi. Cerebellum. Cisterna magna. Parenchyma. Vermis. Face: Lips. Nose. Nasal bone. Maxilla. Orbits. Heart/Thorax: 4-chamber view. RVOT view. LVOT view. 3-vessel view.1-gtwdfn-wwswotn view. Situs. Bicaval view. Interventricular septum. Great vessels. Cardiac position. Cardiacaxis. Cardiac size. Cardiac rhythm. Right lung. Left lung. Diaphragm. Abdomen: Stomach. Kidneys. Bladder. Small bowel. Large bowel. Genitals. Extremities/Skeleton: Right upper arm. Right forearm. Left hand. Rightupper leg. Right lower leg. Right foot. Left upper leg. Left foot. The following structures could not be adequately visualized: Face Profile. Heart / Thorax Aortic arch view. Ductal arch view. Abdomen Abdom. wall. Spine: Cervical spine. Thoracic spine. Lumbar spine. Sacral spine. Extremities / Right hand. Skeleton The following structures could not be examined: Head / Neck Neck. Nuchal fold. Face Mandible. Abdomen Cord insertion. Right renal artery. Left renal artery. Extremities / Left upper arm. Left forearm. Left lower leg. Skeleton Maternal Structures ----- --------- Uterus Visualized Cervix Suboptimal Approach - Transabdominal Right Ovary Not visualized Left Ovary Not visualized Cul de Sac Suboptimal Impression ----- --------- Single viable intrauterine consistent with 31w 4d with an GIAN of07/28/2025. Amniotic fluid MVP measures 9.5 cm. Mild Polyhydramnios. Complete circumvallate placenta noted. Recommendations ----- --------- Please see [facility] documentation from today. The patient is scheduled in four week(s) to complete anatomic survey. Subsequent follow up or other follow up as clinically determined byprimary OB provider unless otherwise specified by [facility]. Results forwarded to ordering provider so they can follow up with thepatient as necessary. us Mee Pringle DO [facility] [place] ORDERABLES Final Result documented in this encounter Visit Diagnoses Diagnosis Screening, , for anatomic survey Encounter for anatomic survey documented in this encounter Care Teams Hotshot Superintendent Relationship Specialty Start Date End Date No Pcp, [place] [address] PCP - General Family Medicine 04/27/20 documented as of this encounter
--- OUTSIDE RECORDS SUMMARY | 2025-05-30 10:30 | XMS_ITS | Encounter Summary ---
Author Organization [facility] Address [id number] [address] [place] [address] Care Team Providers Care Statistics Manager Name Role Phone No Pcp, No Pcp Primary Care Provider Unavailabl e Reason for Referral * Diagnostic Imaging (Routine) - Pending Review Specialty Diagnoses / Procedures Referred By Gisele liao Referred To Contact Maternal and Medicine Diagnoses History of placental abruption Hepatitis C virus infection without hepatic coma, unspecified chronicity Procedures US [facility] with or without consult Nohemy Hernandez MD [address], [address] [place] [address] Phone: tel: fax: Maternal- Medicine at [facility] [address] [place] [address] Phone: tel: fax: Referral ID Status Reason Start Date Expiration Date V isits Requested Visits Authorized [id number] Pending Review 05/30/2025 05/30/2026 1 1 Reason for Visit * Reason Comments Hepatitis C Current Everyday Smoker Encounter Details Date Type Department Care Team (Late st Contact Info) Description 05/30/2025 10:30 AM EDT Office Visit Maternal- Medicine at [facility] [address] [place] [phone] Nohemy Hernandez MD [address] [facility], [address] [place] [address] History of placental abruption (Primary Dx); Hepatitis [...] No Have you been seen here at [facility] in a previous ? No Recent ER visits or hospitalizations? No Bring blood sugar log or meter with you today? (Please bring them with you for every visit at [facility]) N/A Flu vaccine (Sep-December)? N/A Any concerns [...] it affect 1-4% of women in the [facility]. I reviewed with the patient that Hepatitis [...] intensive care unit. The overall risk of Eondapzu-Ll-Jiocy-Transmission (MTCT) during is approximately 4-8%. If the [...] C infection until after 18 months. The [place] [employer] and CDC recommend screening [...] and counseling, coordination of care which was [id number]. documented in this encounter Plan of Treatment Upcoming Encounters Date Type Department Care Team (Late st Contact Info) Description 07/05/2025 1:00 PM EDT Appointment [facility] US Imaging [address] [place] [address] 07/05/2025 2:30 PM EDT Office Visit Maternal- Medicine at [facility] [address] [facility] [place] [phone] Tasia Dowd MD [address] [place] [address] Scheduled Orders Name Type Priority Associated Diagnoses [...] abruption 1 Occurrences starting 05/30/2025 until 05/30/2026 [facility] with or without consult Imaging Routine History of placental abruption Hepatitis C virus infection without hepatic coma, unspecified chronicity Expected: 05/30/2025, Expires: 05/30/2026 documented as of this encounter Visit Diagnoses Diagnosis History of placental abruption- Primary Hepatitis C virus infection without hepatic coma, unspecified chronicity documented in this encounter Care Teams Statistics Manager Relationship Specialty Start Date End Date No Pcp, [place] [address] PCP - General Family Medicine 04/27/20 documented as of this encounter
--- NOTE | 2025-06-05 | US_ITS ---
The [address] [address] Patient Name: ALEXANDER CASON MRN: [id number] date: 1990 Sex: F Assigned Patient Location: US Current Patient Location: Accession/Order Number: [id number] Exam Date: 06/05/2025 11:53 Report Date: 06/05/2025 12:03 At the request of: MEE BOCANEGRA DO Procedure: US OB BPP w non-stress Biophysical profile. Reason for exam: History of opioid abuse COMPARISON: None TECHNIQUE: Transabdominal imaging of the gravid uterus was obtained. FINDINGS: The building inspector reports a BPP of 8 out of 8. ELIZABETH is normal at 21 cm. heart rate 135 bpm. US/US OB BPP w non-stress IMPRESSION: BPP 8 out of 8. Impression dictated by: Serafin Sorto Jr., D.O. 06/05/2025 12:03 PM Dictation Location: [employer] Electronically authenticated by: [id number] Y Date: 06/05/2025 12:03
--- OUTSIDE RECORDS SUMMARY | 2025-06-05 08:55 | XMS_ITS | Encounter Summary ---
Author Organization [facility] Address [id number] [address] [place] [address] Care Team Providers Care Front End Software Engineer Name Role Phone No Pcp, No Pcp Primary Care Provider Unavailabl e Encounter Details Date Type Department Care Team (Late Contact Info) Description 05/30/2025 Orders Only Maternal- Medicine at [facility] [address] [place] [phone] Ref Prov, [place] [address] Social History Tobacco Use Types Packs/Day Years [...] Encounters Date Type Department Care Team (Late Contact Info) Description 07/05/2025 1:00 PM EDT Appointment [facility] US Imaging [address] [place] [phone] 07/05/2025 2:30 PM EDT Office Visit Maternal- Medicine at [facility] [address] [place] [phone] Tasia Dowd MD [address] [place] [address] documented as of this encounter Procedures Procedure Name Priority Date/Time Associated Diagnosis Comments ULTRASOUND OFFICE Routine 05/30/2025 8:44 AM EDT ULTRASOUND OFFICE Routine 05/30/2025 8:41 AM EDT documented in this encounter Results * Ultrasound - Office (05/30/2025 8:44 AM EDT) Anatomical Region Laterality Modality AMB Ultrasound us Not In System Ref Prov IMG US ORDERABLES Final R esult * Ultrasound - Office (05/30/2025 8:41 AM EDT) Anatomical Region Laterality Modality AMB Ultrasound us Not In System Ref Prov IMG US ORDERABLES Final R esult documented in this encounter Visit Diagnoses Not on filedocumented in this encounter Care Teams Front End Software Engineer Relationship Specialty Start Date End Date No Pcp, [place] [address] PCP - General Family Medicine 04/27/20 documented as of this encounter
--- OUTSIDE RECORDS SUMMARY | 2025-06-05 08:55 | XMS_ITS | Encounter Summary ---
Author Organization [facility] Address [facility]-[id number] [address] [place] [address] Care Team Providers Care Road Mender Name Role Phone No Pcp, No Pcp Primary Care Provider Unavailabl e Encounter Details Date Type Department Care Team (Late Contact Info) Description 05/30/2025 Abstract Maternal- Medicine at [facility] [address] [place] [phone] Nohemy Hernandez MD [address] [facility], [address]LOOR [place], [place] [phone] Social History Tobacco Use Types Packs/Day Years [...] Upcoming Encounters Date Type Department Care Team ([facility] Contact Info) Description 07/05/2025 1:00 PM EDT Appointment [facility] US Imaging [address] [place] [phone] 07/05/2025 2:30 PM EDT Office Visit Maternal- Medicine at [facility] [address] [facility] [place] [phone] Tasia Dowd MD [address] [facility] 1st Floor [place], [place] [phone] documented as of this encounter Procedures Procedure Name Priority Date/Time Associated Diagnosis Comments HIV 1&2 AB/AG SCREEN (P24 AG) Routine 05/21/2025 RUBELLA IGG IMMUNE STATUS Routine 05/21/2025 SYPHILIS TOTAL(UNKNOWN SYPHILIS STATUS) Routine 05/21/2025 HEPATITIS C(HCV) ANTIBODY W/REFLEX TO PCR Routine 05/21/2025 DRUG SCREEN, URINE Routine 05/21/2025 HEPATITIS B SURFACE ANTIGEN Routine 05/21/2025 CBC (NO DIFF) Routine 05/21/2025 TYPE AND SCREEN Routine 05/21/2025 HEMOGLOBIN A1C Routine 05/21/2025 documented in this encounter Results * Hepatitis B surface antigen (05/21/2025) Hepatitis B Surface Antigen NEGATIVE MANUALLY TRANSCRIBED RESULTS Blood Venous blood / Unknown us Not In System Ref Prov LAB BLOOD ORDERABLES Yun l Result MANUALLY TRANSCRIBED RESULTS * Hepatitis C(HCV) Ab w/ Reflex to PCR (05/21/2025) Hepatitis C Antibody REACTIVE MANUALLY TRANSCRIBED RESULTS Blood Venous blood / Unknown us Not In System Ref Prov LAB BLOOD ORDERABLES Yun l Result MANUALLY TRANSCRIBED RESULTS * HIV 1&2 AB/AG Screen (P24 AG) (05/21/2025) HIV 1&2 AB/AG NON-REACTI VE MANUALLY TRANSCRIBED RESULTS Blood Venous blood / Unknown us Not In System Ref Prov LAB BLOOD ORDERABLES Yun l Result MANUALLY TRANSCRIBED RESULTS * Type and screen (05/21/2025) Abo/Rh(D) B Positive MANUALLY TRANSCRIBED RESULTS Antibody Screen NEGATIVE MANUALLY TRANSCRIBED RESULTS Blood Venous blood / Unknown us Not In System Ref Prov BLOOD BANK TEST ORDERABLE S Final Result MANUALLY TRANSCRIBED RESULTS * Rubella IGG immune status (05/21/2025) Rubella immune IgG <0.90 MANUALLY TRANSCRIBED RESULTS Blood Venous blood / Unknown us Not In System Ref Prov LAB BLOOD ORDERABLES Yun l Result MANUALLY TRANSCRIBED RESULTS * Syphilis Total (Unknown Syphilis Status) (05/21/2025) Syphilis NON-REACTI VE MANUALLY TRANSCRIBED RESULTS Blood Venous blood / Unknown us Not In System Ref Prov LAB BLOOD ORDERABLES Yun l Result MANUALLY TRANSCRIBED RESULTS * Hemoglobin A1c (05/21/2025) Hemoglobin A1C 4.7 4.0 - 6.0 % MANUALLY TRANSCRIBED RESULTS Blood Venous blood / Unknown us Nohemy Hernandez MD LAB BLOOD ORDERABLES Final Re sult Performing Organization Address City/[facility] Co de Phone Number MANUALLY TRANSCRIBED RESULTS * Drug Screen, Urine (05/21/2025) Methadone NEGATIVE MANUALLY TRANSCRIBED RESULTS Opiates NEGATIVE MANUALLY TRANSCRIBED RESULTS Amphetamine/Methamp hetamine NEGATIVE MANUALLY TRANSCRIBED RESULTS Cocaine Metabolite NEGATIVE M ANUALLY TRANSCRIBED RESULTS Phencyclidine NEGATIVE MANUAL LY TRANSCRIBED RESULTS Thc Marijuana, Urine NEGATIVE MANUALLY TRANSCRIBED RESULTS Oxycodone NEGATIVE MANUALLY TRANSCRIBED RESULTS Barbiturates NEGATIVE MANUALL Y TRANSCRIBED RESULTS Benzodiazepines NEGATIVE MANU ALLY TRANSCRIBED RESULTS Urine us Not In System Ref Prov URINE ORDERABLES Final Re sult Performing Organization Address [facility] de Phone Number MANUALLY TRANSCRIBED RESULTS * CBC without diff (05/21/2025) Hemoglobin 10.8 MANUALLY TRANSCRIBED RESULTS Hematocrit 30.6 MANUALLY TRANSCRIBED RESULTS Rbc Mcv (Fl) By Automated Count 79.3 MANUALLY TRANSCRIBED RESULTS Platelets 176 MANUALLY TRANSCRIBED RESULTS Blood Venous blood / Unknown us Not In System Ref Prov LAB BLOOD ORDERABLES Yun l Result Performing Organization Address [facility] Co de Phone Number MANUALLY TRANSCRIBED RESULTS documented in this encounter Visit Diagnoses Not on filedocumented in this encounter Care Teams Road Mender Relationship Specialty Start Date End Date No Pcp, [place] [address] PCP - General Family Medicine 04/27/20 documented as of this encounter
--- OUTSIDE RECORDS SUMMARY | 2025-06-05 08:55 | XMS_ITS | Encounter Summary ---
Author Organization [facility] Address [address] [place] [address] Care Team Providers Care Automobile Body Repairer Helper Name Role Phone Unavailable Primary Care Provider Unavailabl e Encounter Details Date Type Department Care Team (Late st Contact Info) Description 05/29/2025 Telephone [facility] [place] [facility] [address] [place] [place] [address] Tony Pringle, [address] [place] [address] Social History Tobacco Use Types Packs/Day [...] on file documented as of this encounter Miscellaneous Notes * Telephone Encounter - Pia Ramesh LPN - 05/29/2025 4:38 PM EDT Patient called the office and she states that she was referred to [facility] and they contacted her today to schedule an appointment and that they would like to see her tomorrow at 9:30 but she has an appointment in our office and the next appointment would not be until July and she will have had thebaby by then. Patient asking what to do. Patient was advised Dr would peggy her to see [facility] and if shecan schedule that appointment for tomorrow to do so and we will reschedule her office visit with us. Patient voiced understanding and was transferred to clerical to reschedule appointment. documented in this encounter Plan of Treatment Not on file documented as of this encounter Visit Diagnoses Not on filedocumented in this encounter
--- OUTSIDE RECORDS SUMMARY | 2025-06-05 08:55 | XMS_ITS | Encounter Summary ---
Author Organization [facility] Address [facility]-[id number] [address] [place] [address] Care Team Providers Care Principal Android Developer Name Role Phone No Pcp, No Pcp Primary Care Provider Unavailabl e Encounter Details Date Type Department Care Team (Late st Contact Info) Description 05/30/2025 Abstract Maternal- Medicine at [facility] [address] [place] [phone] Nohemy Hernandez MD [address] [facility], [address]LOOR [place], [place] [phone] Social History Tobacco Use Types Packs/Day Years Used Date Smoking Tobacco: Former Cigarettes Smokeless Tobacco: Never Tobacco Cessation:Ready to Q uit: Not Asked; Counseling Given: Not Answered Alcohol Use Standard Drinks/Week [...] - Inhaled Oxygen Concentration - - Weight - - Height 165.1 cm (5' 5 ) 05/30/2025 8:57 AM EDT Body Mass Index - - documented in this encounter Plan of Treatment Upcoming Encounters Date Type Department Care Team (Late st Contact Info) Description 07/05/2025 1:00 PM EDT Appointment [facility] US Imaging [address] [place] [phone] 07/05/2025 2:30 PM EDT Office Visit Maternal- Medicine at [facility] [address] [place] [phone] Tasia Dowd MD [address] [facility] 1st [place] [address] documented as of this encounter Visit Diagnoses Not on filedocumented in this encounter Care Teams Principal Android Developer Relationship Specialty Start Date End Date No Pcp, [place] [address] PCP - General Family Medicine 04/27/20 documented as of this encounter
--- OUTSIDE RECORDS SUMMARY | 2025-06-05 08:55 | XMS_ITS | Encounter Summary ---
Author Organization [facility] Address [address] [place] [address] Care Team Providers Care Medical Technologist Hematology Name Role Phone Unavailable Primary Care Provider Unavailabl e Encounter Details Date Type Department Care Team (Late st Contact Info) Description 05/28/2025 Abstract [facility] [place] [facility] [address] [facility] [address] [place] [address] Tony Pringle DO [address] [facility] [address] [place], [place] [phone] Social History Tobacco Use Types Packs/Day Years [...] as of this encounter Plan of Treatment Not on file documented as of this encounter Visit Diagnoses Not on filedocumented in this encounter
--- OUTSIDE RECORDS SUMMARY | 2025-06-05 08:56 | XMS_ITS | Encounter Summary ---
Author Organization [facility] Address [address] [place] [address] Care Team Providers Care Transit Survey Worker Name Role Phone Unavailable Primary Care Provider Unavailabl e Encounter Details Date Type Department Care Team (Late st Contact Info) Description 05/30/2025 Abstract [facility] [place] [facility] [address] [facility] [place] [address] Tony Pringle DO [address] [facility] [address] [place], [place] [phone] Social History Tobacco Use Types Packs/Day Years [...]
--- OUTSIDE RECORDS SUMMARY | 2025-06-05 08:56 | XMS_ITS | Encounter Summary ---
Author Organization [facility] Address [address] [place] [address] Care Team Providers Care Global Marketing Coordinator Name Role Phone Unavailable Primary Care Provider Unavailabl e Encounter Details Date Type Department Care Team (Late st Contact Info) Description 07/05/2015 Abstract [facility] [place] [facility] [address] [place] [phone] Tony Pringle DO [address] [facility] [place] [address] Social History Tobacco Use Types Packs/Day Years [...]
--- OUTSIDE RECORDS SUMMARY | 2025-06-05 08:56 | XMS_ITS | Encounter Summary ---
Author Organization [facility] Address [address] [place] [address] Care Team Providers Care Grades 9 12 Tutor Name Role Phone Unavailable Primary Care Provider Unavailabl e Encounter Details Date Type Department Care Team (Late st Contact Info) Description 05/30/2025 External Result Encounter [facility] [place] [facility] [address] [place] [address] Mee Pringle DO [address] [facility] [address] [place], [facility] Social History Tobacco Use Types Packs/Day [...] on file documented as of this encounter Procedures Procedure Name Priority Date/Time Associated Diagnosis Comments US OB 14+ WEEKS ANATOMY SCAN 05/30/2025 12:58 PM EDT documented in this encounter Results * US OB 14+ weeks anatomy scan (05/30/2025 12:58 PM EDT) Anatomical Region Laterality Modality Body Ultrasound 05/30/2025 12:5 8 PM EDT Narrative 05/30/2025 12:58 PM EDT THIS EXAM WAS PERFORMED AT [facility] NAME: YOAV MUNOZ Jennifer : 1990 SEX: F Accession Number: [id number] ORDERING PHYSICIAN: MEE PRINGLE REFERRING PHYSICIAN: MEE PRINGLE Coding ----- --------- Procedures 82307: Ultrasound, uterus, real time with image documentation, and maternal evaluation plus detailed anatomic examination, transabdominal approach;single or first gestation Indication ----- --------- Screening for Anatomic Survey, Hepatitis C in , Malformation of placenta- complete circumvallate,History of prior with delivery- placental abruption, Previous History ----- --------- OB History 4. Para 3 [id number] Maternal Assessment ----- --------- Physical Exam Initial [...] EFW (oz) 14 oz EFW by: Hadlock ([id number]) Extended Tibia 48.3 mm 29w 1d 6% Mara Methods Analyst Data Processing 2.3 mm CM 9.6 mm 95% Nicolaides [...] view. RVOT view. LVOT view. 3-vessel view. 5-vanzrw-bzpcslq view. Situs. Bicaval view. Interventricular septum. Great [...] placenta noted. Recommendations ----- --------- Please see [facility] documentation from today. The patient is scheduled in four week(s) to complete anatomic survey. Subsequent follow up or other follow up as clinically determined by primary OB provider unless otherwise specified by [facility]. Results forwarded to ordering provider so they can follow up with the patient as necessary. Procedure Note Radiology, Radiologist, MD - 05/30/2025 THIS EXAM WAS PERFORMED AT [facility] NAME: YOAV MUNOZ : 1990 SEX: F Accession Number: [id number] ORDERING PHYSICIAN: MEE PRINGLE REFERRING PHYSICIAN: MEE PRINGLE Coding ----- --------- Procedures [id number]: Ultrasound, uterus, real time with imagedocumentation, and maternal evaluation plus detailed anatomic examination, transabdominalapproach;single or first gestation Indication ----- --------- Screening for Anatomic Survey, Hepatitis C in , Malformation ofplacenta- complete circumvallate,History of prior with delivery- placental abruption, Previous History ----- --------- OB History 4. Para 3 [id number] Maternal Assessment ----- --------- Physical Exam Initial [...] EFW (oz) 14 oz EFW by: Hadlock ([id number]) Extended Tibia 48.3 mm 29w 1d 6% Mara Methods Analyst Data Processing 2.3 mm CM 9.6 mm 95% Nicolaides [...] 4-chamber view. RVOT view. LVOT view. 3-vessel view.3-kiplqi-vrcnxbf view. Situs. Bicaval view. Interventricular septum. Great [...] placenta noted. Recommendations ----- --------- Please see [facility] documentation from today. The patient is scheduled in four week(s) to complete anatomic survey. Subsequent follow up or other follow up as clinically determined byprimary OB provider unless otherwise specified by [facility]. Results forwarded to ordering provider so they can follow up with thepatient as necessary. us Mee Pringle DO IMG OB US PROCEDURES Final Resul t documented in this encounter Visit Diagnoses Not on filedocumented in this encounter
--- OUTSIDE RECORDS SUMMARY | 2025-06-05 08:56 | XMS_ITS | Encounter Summary ---
Author Organization [facility] Address [facility]-[id number] [address] [place] [address] Care Team Providers Care Procurement Specialist Name Role Phone No Pcp, No Pcp Primary Care Provider Unavailabl e Encounter Details Date Type Department Care Team (Late Contact Info) Description 05/30/2025 Orders Only Maternal- Medicine at [facility] [address] [place] [phone] Paradise Raya LPN Social History Tobacco Use Types Packs/Day Years [...] 07/05/2025 1:00 PM EDT Appointment [facility] US Imaging [address] [facility] [place] [phone] 07/05/2025 2:30 PM EDT Office Visit Maternal- Medicine at [facility] [address] [facility] [place] [address] Tasia Dowd MD [address] [facility] 1[address] [place] [address] documented as of this encounter Visit Diagnoses Not on filedocumented in this encounter Care Teams Procurement Specialist Relationship Specialty Start Date End Date No Pcp, [place] [address] PCP - General Family Medicine 04/27/20 documented as of this encounter
--- OUTSIDE RECORDS SUMMARY | 2025-06-05 08:56 | XMS_ITS | Encounter Summary ---
Author Organization [facility] Address [address] [place] [address] Care Team Providers Care Hall Monitor Name Role Phone Unavailable Primary Care Provider Unavailabl e Encounter Details Date Type Department Care Team (Late st Contact Info) Description 07/09/2015 Abstract [facility] [place] [facility] [address] [phone] Tony Pringle DO [address] [facility] [address] [place] [address] Social History Tobacco Use Types Packs/Day Years [...]
--- OUTSIDE RECORDS SUMMARY | 2025-06-05 08:56 | XMS_ITS | Encounter Summary ---
Author Organization [facility] Address [facility]-[id number] [address] [place] [address] Care Team Providers Care Christmas Tree Grower Name Role Phone No Pcp, No Pcp Primary Care Provider Unavailabl e Encounter Details Date Type Department Care Team (Latest Contact Info) Description 05/30/2025 Travel Social History Tobacco Use Types Packs/Day Years [...] Info) Description 07/05/2025 1:00 PM EDT Appointment [facility] US Imaging [address] [place] [phone] 07/05/2025 2:30 PM EDT Office Visit Maternal- Medicine at [facility] [address] [place] [address] Tasia Dowd MD [address] 1[address] [place] [address] documented as of this encounter Visit Diagnoses Not on filedocumented in this encounter Care Teams Christmas Tree Grower Relationship Specialty Start Date End Date No Pcp, [place] [address] PCP - General Family Medicine 04/27/20 documented as of this encounter
--- OUTSIDE RECORDS SUMMARY | 2025-06-05 08:56 | XMS_ITS | Clinical Summary ---
Author Organization [facility] Address [address] [place] [address] Care Team Providers Care Notch Grinder Name Role Phone Unavailable Primary Care Provider [...] mg by mouth at bedtime 03/23/2025 Active magnesium oxide (Mag-Ox) 400 MG tabletIndicatio ns: headache in second trimester ([facility]) Take 1 tablet (400 mg) by mouth Daily 30 tablet 11 04/13/2025 04/13/20 26 Active Encounters Date Type Department Care Team Description 05/30/2025 Abstract [facility] [address] [address] [place] [address] Mee Pringle, DO 05/30/2025 External Result Encounter [facility] [address] [place] [address] Mee Pringle, DO 05/30/2025 Telephone [facility] [address] [place] [address] Mee Pringle, DO 05/29/2025 Telephone [facility] [address] [place] [address] Mee Pringle, DO 05/28/2025 Abstract [facility] [address] [place] [address] Mee Pringle, DO 05/21/2025 Clinisync Result Encounter [facility] External Department Unsolicited Mee Pringle, DO 05/16/2025 11:00 AM EDT Routine [facility]enn[facility] [address] [facility] [place] [address] Mee Pringle, DO 29 weeks gestation of ([facility]); Third trimester ([facility]); Request for sterilization; H/O opioid abuse ([facility]); History of placental abruption; Abnormal ultrasonic finding on screening of mother, antepartum 05/16/2025 Bamboo flowsheet [facility] El[facility] [place] [address] Mee Pringle, DO 05/02/2025 3:20 PM EDT Routine [facility] [place] [address] Mee Pringle, DO Second trimester ([facility]); 27 weeks gestation of ([facility]); Request for sterilization; H/O opioid abuse ([facility]); History of placental abruption 05/02/2025 Bamboo flowsheet [facility] OBGYJennifer [address] [place] [address] [place] [address] Mee Pringle, DO 04/18/2025 1:30 PM EDT Routine [facility] El[facility] [place] [address] Mee Pringle, DO Second trimester ([facility]); 25 weeks gestation of ([facility]); Abnormal ultrasonic finding on screening of mother, antepartum 04/18/2025 Bamboo flowsheet [facility] [address] [facility] [place] [address] Mee Pringle, DO 04/09/2025 Clinisync Result Encounter [facility] External Department Unsolicited Paradise Olvera PA 04/09/2025 Clinisync Result Encounter [facility] External Department Unsolicited Paradise Olvera PA 04/06/2025 11:00 AM EDT Initial [facility] ACEVESGYN [address] [facility] [place] [address] GA: 23w6d from Last 3 Months Family History Medical [...] (159 lb) 05/16/2025 10:59 AM EDT Height 165.1 cm (5' 5 ) 12/09/2022 12:00 PM EST Body Mass Index 26.46 12/09/2022 12:00 PM EST Plan of Treatment Health Maintenance Due Date Last Done Comments Pap Smear 2013 Cervical Cancer Screening 2022 HPV/Cotest 2022 Influenza Vaccine (#1) 2025 Procedures Procedure Name Priority Date/Time Associated Diagnosis Comments US OB 14+ WEEKS ANATOMY SCAN 05/30/2025 12:58 PM EDT HCV ANTIBODY RFX TO QUANT PCR Routine 05/21/2025 11:39 AM EDT ALL RUBELLA IGG AB Routine 05/21/2025 11 :39 AM EDT HBSAG SCREEN Routine 05/21/2025 11:39 AM EDT RAPID PLASMA REAGIN, QUANT Routine 05/21/2025 11:39 AM EDT HIV AB/P24 AG WITH REFLEX Routine 05/21/2025 11:39 AM EDT ALL TYPE AND SCREEN Routine 05/21/2025 1 1:39 AM EDT MLR HEMOGLOBIN A1C Routine 05/21/2025 11 :39 AM EDT ALL CBC WITH AUTO DIFF Routine 11:39 AM EDT BUPRENORPHINE CONFIRM, URINE Routine 05/21/2025 11:24 AM EDT [facility] DRUG SCREEN RAPID (URINE) Routine 05/21/2025 11:24 AM EDT POCT URINALYSIS DIPSTICK Routine 05/16/2025 11:03 AM EDT 29 weeks gestation of ([facility]) Third trimester ([facility]) POCT URINALYSIS DIPSTICK Routine 04/18/2025 1:44 PM EDT Second trimester ([facility]) US OB ANATOMY 04/09/2025 1:01 PM EDT US OB CERVICAL LENGTH 04/09/2025 1:01 PM EDT POCT URINALYSIS DIPSTICK Routine 04/06/2025 11:13 AM EDT Missed menses POCT , URINE Routine 04/06/2025 11:13 AM EDT Missed menses from Last 3 Months Results * US OB 14+ weeks anatomy scan (05/30/2025 12:58 PM EDT) Anatomical Region Laterality Modality Body Ultrasound 05/30/2025 12:5 8 PM EDT Narrative 05/30/2025 12:58 PM EDT THIS EXAM WAS PERFORMED AT [facility] NAME: YOAV MUNOZ : 1990 SEX: F Accession Number: [id number] ORDERING PHYSICIAN: MEE PRINGLE REFERRING PHYSICIAN: MEE PRINGLE Coding ----- --------- Procedures 24426: Ultrasound, uterus, real time with image documentation, and maternal evaluation plus detailed anatomic examination, transabdominal approach;single or first gestation Indication ----- --------- Screening for Anatomic Survey, Hepatitis C in , Malformation of placenta- complete circumvallate,History of prior with delivery- placental abruption, Previous History ----- --------- OB History 4. Para 3 [id number] Maternal Assessment ----- --------- Physical Exam Initial [...] EFW (oz) 14 oz EFW by: Hadlock ([id number]) Extended Tibia 48.3 mm 29w 1d 6% Mara Buzzle Buffer 2.3 mm CM 9.6 mm 95% Nicolaides [...] view. RVOT view. LVOT view. 3-vessel view. 8-djzatb-kxdyoin view. Situs. Bicaval view. Interventricular septum. Great [...] placenta noted. Recommendations ----- --------- Please see M documentation from today. The patient is scheduled in four week(s) to complete anatomic survey. Subsequent follow up or other follow up as clinically determined by primary OB provider unless otherwise specified by [facility]. Results forwarded to ordering provider so they can follow up with the patient as necessary. Procedure Note Radiology, Radiologist, - 05/30/2025 THIS EXAM WAS PERFORMED AT [facility] NAME: YOAV MUNOZ : 1990 SEX: F Accession Number: [id number] ORDERING PHYSICIAN: MEE PRINGLE REFERRING PHYSICIAN: MEE PRINGLE Coding ----- --------- Procedures 00972: Ultrasound, uterus, real time with imagedocumentation, and maternal evaluation plus detailed anatomic examination, transabdominalapproach;single or first gestation Indication ----- --------- Screening for Anatomic Survey, Hepatitis C in , Malformation ofplacenta- complete circumvallate,History of prior with delivery- placental abruption, Previous History ----- --------- OB History 4. Para 3 [id number] Maternal Assessment ----- --------- Physical Exam Initial [...] EFW (oz) 14 oz EFW by: Hadlock ([id number]-FL) Extended Tibia 48.3 mm 29w 1d 6% Mara Buzzle Buffer 2.3 mm CM 9.6 mm 95% Nicolaides [...] 4-chamber view. RVOT view. LVOT view. 3-vessel view.5-qiniux-wruoyhq view. Situs. Bicaval view. Interventricular septum. Great [...] placenta noted. Recommendations ----- --------- Please see [facility] documentation from today. The patient is scheduled in four week(s) to complete anatomic survey. Subsequent follow up or other follow up as clinically determined byprimary OB provider unless otherwise specified by [facility]. Results forwarded to ordering provider so they can follow up with thepatient as necessary. us Mee Yary DO IMG OB US PROCEDURES Final Resul t * HBSAG SCREEN (05/21/2025 11:39 AM EDT) [facility] HBSAG SCREEN Negative Negative [facility] Comment: Performed at: [address] [id number] Metal Miner: Aric Pryor PhD, Phone: [phone] 05/21/2025 11:3 9 AM EDT 05/21/2025 11:46 AM EDT Narrative [facility] - 05/22/2025 12:09 PM EDT us Mee Yary DO LAB BLOOD ORDERABLES Final Resul t [facility] * RAPID PLASMA REAGIN, QUANT (05/21/2025 11:39 AM EDT) [facility] RAPID PLASMA REAGIN, QUANT Non Reactive NonRea<1: 1 titer [facility] Comment: Please Note: This test does not meet current guidelines for screening and diagnosis of syphilis. This test is intended for following treatment response in patients being treated for syphilis infection. To screen for syphilis infection, a reflex cascade that includes both RPR and a treponema-specific assay should be utilized, such as Treponema pallidum (Syphilis) Screening Bailey (687972) or Rapid Plasma Reagin (RPR) Test With Reflex to Quantitative RPR and Confirmatory Treponema pallidum Antibodies (441403). Performed at: [address] [id number] Metal Miner: Aric Pryor PhD, Phone: [phone] 05/21/2025 11:3 9 AM EDT 05/21/2025 11:46 AM EDT Narrative [facility] - 05/22/2025 12:09 PM EDT Gripp'n Techo DO LAB BLOOD ORDERABLES Final Resul t Performing Organization Address [facility] Co de Phone Number [facility] * HIV AB/P24 AG WITH REFLEX (05/21/2025 11:39 AM EDT) Pathologist [facility] HIV AB/P24 AG SCREEN Non Reactive Non Reactive [facility] Comment: HIV-1/HIV-2 antibodies and HIV-1 p24 antigen were NOT detected. There is no laboratory evidence of HIV infection. HIV Negative Performed at: [address] [id number] Metal Miner: Aric Pryor PhD, Phone: [phone] 05/21/2025 11:3 9 AM EDT 05/21/2025 11:46 AM EDT Narrative [facility] - 05/22/2025 5:08 AM EDT Gripp'n Techo DO LAB BLOOD ORDERABLES Final Resul t Performing Organization Address City/[facility]/ZIP Co de Phone Number [facility] * (ABNORMAL) HCV ANTIBODY RFX TO QUANT PCR (05/21/2025 11:39 AM EDT) Pathologist [facility] HCV AB Reactive(A) Non Reactive [facility] HEPATITIS C QUANTITATION 19666 . IU/mL [facility] HCV LOG10 4.819 . [facility] Comment:Result Units: log10 IU/mL TEST INFORMATION: Comment . [facility] Comment: The quantitative range of this assay is 15 IU/mL to 100 million IU/mL. INTERPRETATION: Comment . [facility] Comment: Positive HCV antibody screen with the presence of HCV RNA is consistent with active infection. Performed at: [facility] Lab[address] [id number] Metal Miner: Aric Pryor PhD, Phone: [phone] Performed at: [facility] Lab[address] [id number] Metal Miner: Miles Owens MD, Phone: [phone] 05/21/2025 11:3 9 AM EDT 05/21/2025 11:46 AM EDT Narrative [facility] - 05/24/2025 3:08 PM EDT Mee Yary DO LAB BLOOD ORDERABLES Final Resul t Performing Organization Address City/[facility] Co de Phone Number [facility] * MLR HEMOGLOBIN A1C (05/21/2025 11:39 AM EDT) GLYCOHEMOGLOBIN A1C 4.7 4.5 - 6.2 % [facility] Comment: ADA RECOMMENDED LIMIT 4.0 - 6.0 ADA THERAPEUTIC TARGET < 7.0 ACTION SUGGESTED > 7.0 ESTIMATED AVERAGE GLUCOSE 88 mg/dL [facility] 05/21/2025 11:3 9 AM EDT 05/21/2025 11:46 AM EDT Narrative [facility] - 05/21/2025 12:42 PM EDT Mee Yary DO CLINISYNC Final Result [facility] * ALL TYPE AND SCREEN (05/21/2025 11:39 AM EDT) BLOOD TYPE B Positive TB ANTIBODY SCREEN NEGATIVE [facility] 05/21/2025 11:3 9 AM EDT 05/21/2025 11:46 AM EDT Narrative [facility] - 05/21/2025 1:42 PM EDT [facility] , Mee Yary DO CLINISYNC Final Result [facility] * (ABNORMAL) ALL RUBELLA IGG AB (05/21/2025 11:39 AM EDT) [facility] RUBELLA ANTIBODIES, IGG <0.90(A) Immune >0.99 index [facility] Comment: Non-immune <0.90 Equivocal 0.90 - 0.99 Immune >0.99 Performed at: [facility] [address] [id number] Metal Miner: Aric Pryor PhD, Phone: [phone] 05/21/2025 11:3 9 AM EDT 05/21/2025 11:46 AM EDT Narrative [facility] - 05/24/2025 3:08 PM EDT Mee Yary DO CLINISYNC Final Result Performing Organization Address [facility] Co de Phone Number [place] * (ABNORMAL) ALL CBC WITH AUTO DIFF (05/21/2025 11:39 AM EDT) [facility] TB WBC 11.8(H) 4.0 - 11.0 10 3/uL [facility] RBC 3.86(L) 4.20 - 5.40 10 6/uL [facility] HGB 10.8(L) 12.0 - 16.0 g/dL TB TB HCT 30.6(L) 36.0 - 48.0 % [facility] TB MCV 79.3(L) 81.0 - 99.0 fL [facility]H MCH 28.0 26.7 - 34.0 pg TBH [facility]H MCHC 35.3(H) 29.9 - 35.2 g/dL [facility]H RDW 12.7 11.0 - 15.0 % [facility] TBH PLT 176 150 - 450 10 3/uL [facility] TBH MPV 11.1 9.5 - 13.5 fL [facility] NEUTROPHILS PERCENT AUTO 66.6 43.0 - 75.0 % [facility] LYMPHOCYTES PERCENT AUTO 25.1 20.5 - 60.0 % [facility] MONOCYTES PERCENT AUTO 5.6 1.7 - 12.0 % [facility]H EO % 1.5 0.9 - 7.0 % [facility] BASOPHILS PERCENT AUTO 0.4 0.2 - 2.0 % [facility] IMMATURE GRANULOCYTES PCT AUTO 0.8(H) 0.0 - 0.5 % [facility] NEUTROPHILS ABSOLUTE AUTO 7.9(H) 1.4 - 6.5 10 3/uL [facility] LYMPHOCYTES ABSOLUTE AUTO 3.0 1.2 - 3.8 10 3/uL [facility] MONOCYTES ABSOLUTE AUTO 0.7 0.3 - 0.8 10 3/uL [facility] TBH EO # 0.2 0.0 - 0.7 10 3/uL [facility] BASOPHILS ABSOLUTE AUTO 0.1 0.0 - 0.1 10 3/uL [facility] IMMATURE GRANULOCYTES ABS AUTO 0.10(H) 0.00 - 0.03 10 3/uL [facility] 05/21/2025 11:3 9 AM EDT 05/21/2025 11:46 AM EDT Narrative [facility] - 05/21/2025 12:10 PM EDT us Mee Yary DO CLINISYNC Final Result Performing Organization Address City/[facility]/ZIP Co de Phone Number [facility] * (ABNORMAL) BUPRENORPHINE CONFIRM, URINE (05/21/2025 11:24 AM EDT) BUPRENORPHINE Positive( A) . [facility] BUPRENORPHINE CONF, MS, UR 525 Cutoff=10 ng/mL [facility] NORBUPRENORPHINE Positive( A) . [facility] NORBUPRENORPHINE CONF, MS,UR 905 Cutoff=10 ng/mL [facility] Comment: Performed at: - [facility] [address], [place] [id number] Metal Miner: Soledad Mendieta PhD, Phone: [phone] 05/21/2025 11:2 4 AM EDT 05/21/2025 12:08 PM EDT Narrative [facility] - 05/24/2025 12:09 PM EDT Mee Yary DO LAB BLOOD ORDERABLES Final Resul t Performing Organization Address City/State/[facility] Co de Phone Number [facility] TB * (ABNORMAL) [facility] DRUG SCREEN RAPID (URINE) (05/21/2025 11:24 AM EDT) CANNABINOID SCREEN URINE NEGATIVE NEGATIVE TBH PHENCYCLIDINE SCREEN URINE NEGATIVE NEGATIVE TB[facility] COCAINE SCREEN URINE NEGATIVE NEGATIVE TBH METHAMPHETAMINES SCREEN URINE NEGATIVE NEGATIVE TBH OPIATE SCREEN URINE NEGATIVE NEGATIVE TBH AMPHETAMINE SCREEN URINE NEGATIVE NEGATIVE TBH BENZODIAZEPINES SCREEN URINE NEGATIVE NEGATIVE TBH TRICYCLIC ANTIDEPRESSANT URINE NEGATIVE NEGATIVE TBH METHADONE SCREEN URINE NEGATIVE NEGATIVE TB BARBITURATES SCREEN URINE NEGATIVE NEGATIVE TB OXYCODONE SCREEN URINE NEGATIVE NEGATIVE TB BUPRENORPHINE SCREEN URINE POSITIVE(A) NEGATIVE TB Comment: DRUG CLASS TEST SYSTEM CUT-OFF CONCENTRATIONS ARE FOLLOWS: AMP (Amphetamine): 500 ng/mL BAR (Barbiturates): 200 ng/mL BZO (Benzodiazepines): 150 ng/mL BUP (Buprenorphine): 10 ng/mL BRITTANY (Cocaine): 150 ng/mL mAMP (Methamphetamine): 500 ng/mL MTD (Methadone): 200 ng/mL OPI (Opiates): 100 ng/mL OXY (Oxycodone): 100 ng/mL PCP (Phencyclidine): 25 ng/mL THC (Cannabinoids): 50 ng/mL TCA (Trycyclic Antidepressants): 300 ng/mL 05/21/2025 11:2 4 AM EDT 05/21/2025 11:47 AM EDT Narrative [facility] - 05/21/2025 12:05 PM EDT Mee Pringle DO CLINISYGA Final Result [facility] * (ABNORMAL) POCT urinalysis dipstick manually resulted (05/16/2025 11:03 AM EDT) Only the most recent of3 resultswithin the time period is included. Color, UA Yellow Clarity, UA Clear Glucose, [...] Positive Urine 05/16/2025 11:0 3 AM EDT us Mee Yary DO POINT OF CARE TEST ENTER/EDIT OR DERABLES Final Result * US OB CERVICAL LENGTH (04/09/2025 1:01 PM EDT) Anatomical Region Laterality Modality Other 04/09/2025 1:01 PM EDT Narrative 04/09/2025 1:04 [place] [address] Ultrasound Report Signed Patient: CARMELITA CASON MR#: [id number] : 1990 Acct:[id number] Age/Sex: 34 / F ADM Date: 04/09/25 Loc: US Attending Dr: Paradise Olvera Ordering Physician: Paradise Olvera Date of Service: 04/09/25 Procedure(s): US OB cervical length Accession Number(s): [id number] cc: Paradise Olvera; ROMEO GAR [address] [address] Patient Name: CARMELITA CASON MRN: [id number] date: 1990 Sex: F Assigned Patient Location: Current Patient Location: US Accession/Order Number: [id number] Exam Date: 04/09/2025 12:20 Report Date: 04/09/2025 [...] all 4 extremities were surveyed by the small products i assembler. No abnormalities were detected. The stomach, bladder, [...] Zelaya M.D. 04/09/2025 1:01 PM Dictation Location: [place] [address] Electronically authenticated by: [id number] Y Date: 04/09/2025 13:01 Dictated By: Raine Zelaya M.D. Signed By: 04/09/25 1304 DD/ 1301 TD/TT: Marketing Intelligence Analyst: Procedure Note Radiology, Radiologist, MD - 04/09/2025 [place] [address] Ultrasound Report Signed Patient: CARMELITA CASON [facility]#: [id number] : 1990Acct:[id number] Age/Sex: 34 / FADM Date: 04/09/25 Loc: US Attending Dr: Paradise Olvera Ordering Physician: Paradise Olvera Date of Service: 04/09/25 Procedure(s): US OB cervical length Accession Number(s): [id number] cc: Paradise Olvera; ROMEO GAR The [place] [address] Patient Name: CARMELITA CASON MRN: [facility]:[id number] date: 1990 Sex: F Assigned Patient Location: Current Patient Location: US Accession/Order Number: [id number] Exam Date: 04/09/2025 12:20 Report Date: 04/09/2025 13:01 At the request of: PARADISE OLVERA Procedure: US OB anatomy CLINICAL DATA: Screening for anatomy COMPARISON: 01/22/2025 ULTRASOUND OB ANATOMY There is a single live intrauterine gestation in cephalic presentation.The amniotic fluid volume is subjectively normal. There is a posteriorplacenta. A placental band was noted. There is cardiac and somatic activitywith heart rate of 135 bpm. The neural axis and all 4 extremities weresurveyed by the small products i assembler. No abnormalities were detected. 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 The following measurements were obtained: Biparietal diameter 6.1cm 24 weeks 4 days 57% Head circumference 22.7 cm 24 weeks 5 days 46% Abdominal circumference 20.6 cm 25 weeks 1 day 69% Femur length 4.0 cm 23 weeks 0 days 8% The composite ultrasound age based on these measurements is 24 weeks 3days +/- 1 week 5 days. The estimated date of delivery is July 27, 2025. This correlates with dates based on the prior. The estimated weightis 1 lb. 8 oz. +/- 4 ounces (42%) US/US OB cervical length IMPRESSION: SINGLE LIVE INTRAUTERINE GESTATION WITH ULTRASOUND AGE OF 24 WEEKS 3 DAYS. UNREMARKABLE ANATOMY SURVEY INCIDENTAL PLACENTAL BAND ULTRASOUND OB CERVICAL LENGTH The cervix was evaluated with the transvaginal probe. The cervix isclosed and measures approximately 3.5 cm in diameter. There is no evidence of previa. IMPRESSION: CLOSED CERVIX, UNREMARKABLE IN APPEARANCE. Impression dictated by: Raine Zelaya M.D. 04/09/2025 1:01 PM Dictation Location: [place] [address] Electronically authenticated by: [id number] Y Date: 3:01 Dictated By: Raine Zelaya M.D. Signed By:04/09/25 1304 DD/ 1301 TD/TT: Marketing Intelligence Analyst: Paradise MORROW [facility] IMAGING Final Result * US OB ANATOMY (04/09/2025 1:01 PM EDT) Anatomical Region Laterality Modality Other 04/09/2025 1:01 PM EDT Narrative 04/09/2025 1:04 [place] [address] Ultrasound Report Signed Patient: CARMELITA CASON MR#: [id number] : 1990 Acct:[id number] Age/Sex: 34 / F ADM Date: 04/09/25 Loc: US Attending Dr: Paradise Olvera Ordering Physician: Paradise Olvera Date of Service: 04/09/25 Procedure(s): US OB anatomy Accession Number(s): [id number] cc: Paradise Olvera; ROMEO GAR [place] [id number] Patient Name: CARMELITA CASON MRN: [id number] date: 1990 Sex: F Assigned Patient Location: US Current Patient Location: US Accession/Order Number: [id number] Exam Date: 04/09/2025 12:20 Report Date: 04/09/2025 [...] all 4 extremities were surveyed by the small products i assembler. No abnormalities were detected. The stomach, bladder, [...] Zelaya M.D. 04/09/2025 1:01 PM Dictation Location: [place] [address] Electronically authenticated by: [id number] Y Date: 04/09/2025 13:01 Dictated By: Raine Zelaya M.D. Signed By: 04/09/25 1304 DD/ 1301 TD/TT: Marketing Intelligence Analyst: Procedure Note Radiology, Radiologist, MD - 04/09/2025 The [place] [id number] Ultrasound Report Signed Patient: CARMELITA CASON NMR#: [id number] : 1990Acct:[id number] Age/Sex: 34 / FADM Date: 04/09/25 Loc: US Attending Dr: Paradise Olvera Ordering Physician: Paradise Olvera Date of Service: 04/09/25 Procedure(s): US OB anatomy Accession Number(s): [id number] cc: Paradise Olvera; ROMEO GAR The [address] [address] Patient Name: CARMELITA CASON MRN: [id number] date: 1990 Sex: F Assigned Patient Location: US Current Patient Location: US Accession/Order Number: [id number] Exam Date: 04/09/2025 12:20 Report Date: 04/09/2025 13:01 At the request of: PARADISE OLVERA Procedure: US OB anatomy CLINICAL DATA: Screening for anatomy COMPARISON: 01/22/2025 ULTRASOUND OB ANATOMY There is a single live intrauterine gestation in cephalic presentation.The amniotic fluid volume is subjectively normal. There is a posteriorplacenta. A placental band was noted. There is cardiac and somatic activitywith heart rate of 135 bpm. The neural axis and all 4 extremities weresurveyed by the small products i assembler. No abnormalities were detected. 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 The following measurements were obtained: Biparietal diameter 6.1cm 24 weeks 4 days 57% Head circumference 22.7 cm 24 weeks 5 days 46% Abdominal circumference 20.6 cm 25 weeks 1 day 69% Femur length 4.0 cm 23 weeks 0 days 8% The composite ultrasound age based on these measurements is 24 weeks 3days +/- 1 week 5 days. The estimated date of delivery is July 27, 2025. This correlates with dates based on the prior. The estimated weightis 1 lb. 8 oz. +/- 4 ounces (42%) US/US OB anatomy IMPRESSION: SINGLE LIVE INTRAUTERINE GESTATION WITH ULTRASOUND AGE OF 24 WEEKS 3 DAYS. UNREMARKABLE ANATOMY SURVEY INCIDENTAL PLACENTAL BAND ULTRASOUND OB CERVICAL LENGTH The cervix was evaluated with the transvaginal probe. The cervix isclosed and measures approximately 3.5 cm in diameter. There is no evidence of previa. IMPRESSION: CLOSED CERVIX, UNREMARKABLE IN APPEARANCE. Impression dictated by: Raine Zelaya M.D. 04/09/2025 1:01 PM Dictation Location: [place] [address] Electronically authenticated by: [id number] Y Date: 3:01 Dictated By: Raine Zelaya M.D. Signed By:04/09/25 1304 DD/ 1301 TD/TT: Marketing Intelligence Analyst: Paradise [facility] Final Result * (ABNORMAL) POCT , urine manually resulted (04/06/2025 11:13 AM EDT) Preg Test, Ur Positive Negative Urine 04/06/2025 11:1 3 AM EDT Mee Pringle DO POINT OF CARE TEST ENTER/EDIT OR DERABLES Final Result from Last 3 Months Insurance [employer]
--- OUTSIDE RECORDS SUMMARY | 2025-06-05 08:56 | XMS_ITS | Clinical Summary ---
Author Organization [facility] Address [id number] [address] [place] [address] Care Team Providers Care Clerk Supervisor Name Role Phone No Pcp, No Pcp Primary Care Provider Unavailabl e Allergies Active Allergy Reactions Criticality Noted Date Comments Penicillins 06/24/2020 Medications naltrexone microspheres (VIVITROL IM) Inject into the appropriate muscle. Active QUEtiapine (SEROquel) 200 mg tablet Take 50 mg by mouth nightly. Active hydrOXYzine (VISTARIL) 100 mg capsule Take 100 mg by mouth daily. Active FLUoxetine (PROzac) 40 mg capsule Take 60 mg by mouth daily. Active magnesium oxide (MAGOX) 400 mg tablet Take 1 tablet (400 mg total) by mouth in the morning. Active buprenorphine-na loxone (SUBOXONE) 8-2 mg film Dissolve 1 Film on tongue in the morning. Active gabapentin (NEURONTIN) 100 mg capsule Take 1 capsule (100 mg total) by mouth before bedtime. Active no115/iron/folic acid ( 19 ORAL) Take 1 tablet by mouth before bedtime. Active Encounters Date Type Department Care Team Description 05/30/2025 10:30 AM EDT Office Visit Maternal- Medicine at [facility] [address] [place] [phone] Nohemy Hernandez MD History of placental abruption (Primary Dx); Hepatitis C virus infection without hepatic coma, unspecified chronicity 05/30/2025 9:15 AM EDT - 05/30/2025 11:59 PM EDT Hospital Encounter [facility] US Imaging [address] [place] [phone] Screening, , for anatomic survey Discharge Disposition: Home 05/30/2025 Orders Only Maternal- Medicine at [facility] [address] [place] [phone] Paradise Raya LPN 05/30/2025 Travel 05/30/2025 Abstract Maternal- Medicine at [facility] [address] [place] [phone] Nohemy Hernandez MD 05/30/2025 Orders Only Maternal- Medicine at [facility] [address] [place] [phone] Ref Prov, Not In System 05/30/2025 Abstract Maternal- Medicine at [facility] [address] [place] [phone] Nohemy Hernandez MD from Last 3 Months Family History Medical [...] Pulse 83 05/30/2025 9:30 AM EDT Temperature 36.6 C (97.9 F) 01/01/2021 12:43 AM EST Respiratory Rate 16 01/01/2021 12:2 9 PM EST Oxygen Saturation 98% 01/01/2021 12: 29 PM EST Inhaled Oxygen Concentration - - Weight 73.8 kg (162 lb 12.8 oz) 05/30/2025 9:30 AM EDT Height 165.1 cm (5' 5 ) 05/30/2025 9:30 AM EDT Body Mass Index 27.09 05/30/2025 9:30 AM EDT Plan of Treatment Upcoming Encounters Date Type Department Care Team (Late st Contact Info) Description 07/05/2025 1:00 PM EDT Appointment [facility] US Imaging [address] [place] [phone] 07/05/2025 2:30 PM EDT Office Visit Maternal- Medicine at [facility] [address] [place] [phone] Tasia Dowd MD [address] [facility] [address] [place] [address] Health Maintenance Due Date Last Done Comments DTaP,Tdap and Td Vaccines (6 - Tdap) 2003 08/15/2001, 07/11/1994, 04/22/1993, Additional history exists Depression Screening 2004 Adult BMI Follow Up Plan 2010 Pap Smear 2013 COVID-19 Vaccine (2 - 2023-2 5 season) 2024 07/23/2021 Influenza Vaccine 07/02/2025 Adult BMI Screening 05/30/2026 05/30/2025 Tobacco Screening 05/30/2026 05/30/2025 Medical Devices Not on file Procedures Procedure Name Priority Date/Time Associated Diagnosis Comments US [facility] COMPREHENSIVE ANATOMIC SURVEY Routine 05/30/2025 10:52 AM EDT Screening, , for anatomic survey ULTRASOUND OFFICE Routine 05/30/2025 8:4 4 AM EDT ULTRASOUND OFFICE Routine 05/30/2025 8:4 1 AM EDT TYPE AND SCREEN Routine 05/21/2025 HEPATITIS B SURFACE ANTIGEN Routine 05/21/2025 HEPATITIS C(HCV) ANTIBODY W/REFLEX TO PCR Routine 05/21/2025 HIV 1&2 AB/AG SCREEN (P24 AG) Routine 05/21/2025 RUBELLA IGG IMMUNE STATUS Routine 05/21/2025 SYPHILIS TOTAL(UNKNOWN SYPHILIS STATUS) Routine 05/21/2025 HEMOGLOBIN A1C Routine 05/21/2025 DRUG SCREEN, URINE Routine 05/21/2025 CBC (NO DIFF) Routine 05/21/2025 from Last 3 Months Results * US [facility] COMPREHENSIVE ANATOMIC SURVEY (05/30/2025 10:52 AM EDT) Anatomical Region Laterality Modality OB-FOCUSER Ultrasound 05/30/2025 9:40 AM EDT Narrative 05/30/2025 12:58 PM EDT NAME: YOAV MUNOZ : 1990 SEX: F Accession Number: [id number] ORDERING PHYSICIAN: MEE PRINGLE REFERRING PHYSICIAN: MEE PRINGLE Coding ----- --------- Procedures [id number]: Ultrasound, uterus, real time with image documentation, and maternal evaluation plus detailed anatomic examination, transabdominal approach;single or first gestation Indication ----- --------- Screening for Anatomic Survey, Hepatitis C in , Malformation of placenta- complete circumvallate,History of prior with delivery- placental abruption, Previous History ----- --------- OB History 4. Para 3 [id number] Maternal Assessment ----- --------- Physical Exam Initial [...] EFW (oz) 14 oz EFW by: Hadlock ([id number]) Extended Tibia 48.3 mm 29w 1d 6% Mara Clinical Nursing Manager 2.3 mm CM 9.6 mm 95% Nicolaides [...] view. RVOT view. LVOT view. 3-vessel view. 2-lujegd-dmverjw view. Situs. Bicaval view. Interventricular septum. Great [...] placenta noted. Recommendations ----- --------- Please see [facility] documentation from today. The patient is scheduled in four week(s) to complete anatomic survey. Subsequent follow up or other follow up as clinically determined by primary OB provider unless otherwise specified by [facility]. Results forwarded to ordering provider so they can follow up with the patient as necessary. Procedure Note Nohemy Hernandez MD - 05/30/2025 NAME: YOAV MUNOZ : 1990 SEX: F Accession Number: [id number] ORDERING PHYSICIAN: MEE PRINGLE REFERRING PHYSICIAN: MEE PRINGLE Coding ----- --------- Procedures [id number]: Ultrasound, uterus, real time with imagedocumentation, and maternal evaluation plus detailed anatomic examination, transabdominalapproach;single or first gestation Indication ----- --------- Screening for Anatomic Survey, Hepatitis C in , Malformation ofplacenta- complete circumvallate,History of prior with delivery- placental abruption, Previous History ----- --------- OB History 4. Para 3 [id number] Maternal Assessment ----- --------- Physical Exam Initial [...] EFW (oz) 14 oz EFW by: Hadlock ([id number]) Extended Tibia 48.3 mm 29w 1d 6% Mara Clinical Nursing Manager 2.3 mm CM 9.6 mm 95% Nicolaides [...] 4-chamber view. RVOT view. LVOT view. 3-vessel view.9-wwpqod-eyijipc view. Situs. Bicaval view. Interventricular septum. Great [...] placenta noted. Recommendations ----- --------- Please see [facility] documentation from today. The patient is scheduled in four week(s) to complete anatomic survey. Subsequent follow up or other follow up as clinically determined byprimary OB provider unless otherwise specified by M. Results forwarded to ordering provider so they can follow up with thepatient as necessary. us Mee Pringle DO [facility] US ORDERABLES Final Result * Ultrasound - Office (05/30/2025 8:44 AM EDT) Only the most recent of2 resultswithin the time period is included. Anatomical Region Laterality Modality AMB Ultrasound us Not In System Ref Prov IMG US ORDERABLES Final R esult * HIV 1&2 AB/AG Screen (P24 AG) (05/21/2025) HIV 1&2 AB/AG NON-REACTI VE MANUALLY TRANSCRIBED RESULTS Blood Venous blood / Unknown us Not In System Ref Prov LAB BLOOD ORDERABLES Yun l Result Performing Organization Address City/[facility]/ZIP Co de Phone Number MANUALLY TRANSCRIBED RESULTS * Rubella IGG immune status (05/21/2025) Rubella immune IgG <0.90 MANUALLY TRANSCRIBED RESULTS Blood Venous blood / Unknown us Not In System Ref Prov LAB BLOOD ORDERABLES Yun l Result Performing Organization Address City/[facility]/ZIP Co de Phone Number MANUALLY TRANSCRIBED RESULTS * Syphilis Total (Unknown Syphilis Status) (05/21/2025) Syphilis NON-REACTI VE MANUALLY TRANSCRIBED RESULTS Blood Venous blood / Unknown us Not In System Ref Prov LAB BLOOD ORDERABLES Yun l Result Performing Organization Address City/[facility]/ZIP Co de Phone Number MANUALLY TRANSCRIBED RESULTS * Hepatitis C(HCV) Ab w/ Reflex to PCR (05/21/2025) Hepatitis C Antibody REACTIVE MANUALLY TRANSCRIBED RESULTS Blood Venous blood / Unknown us Not In System Ref Prov LAB BLOOD ORDERABLES Yun l Result Performing Organization Address City/[facility]/ZIP Co de Phone Number MANUALLY TRANSCRIBED RESULTS [...] ORDERABLES Final Re sult Performing Organization Address [facility] de Phone Number MANUALLY TRANSCRIBED RESULTS * Hepatitis B surface antigen (05/21/2025) Hepatitis B Surface Antigen NEGATIVE MANUALLY TRANSCRIBED RESULTS Blood Venous blood / Unknown us Not In System Ref Prov LAB BLOOD ORDERABLES Yun l Result Performing Organization Address [facility] de Phone Number MANUALLY TRANSCRIBED RESULTS * CBC without diff (05/21/2025) Hemoglobin 10.8 MANUALLY TRANSCRIBED RESULTS Hematocrit 30.6 MANUALLY TRANSCRIBED RESULTS Rbc Mcv (Fl) By Automated Count 79.3 MANUALLY TRANSCRIBED RESULTS Platelets 176 MANUALLY TRANSCRIBED RESULTS Blood Venous blood / Unknown us Not In System Ref Prov LAB BLOOD ORDERABLES Yun l Result Performing Organization Address [facility] de Phone Number MANUALLY TRANSCRIBED RESULTS * Type and screen (05/21/2025) Abo/Rh(D) B Positive MANUALLY TRANSCRIBED RESULTS Antibody Screen NEGATIVE MANUALLY TRANSCRIBED RESULTS Blood Venous blood / Unknown us Not In System Ref Prov BLOOD BANK TEST ORDERABLE S Final Result Performing Organization Address [facility] de Phone Number MANUALLY TRANSCRIBED RESULTS * Hemoglobin A1c (05/21/2025) Hemoglobin A1C 4.7 4.0 - 6.0 % MANUALLY TRANSCRIBED RESULTS Blood Venous blood / Unknown us Nohemy Hernandez MD LAB BLOOD ORDERABLES Final Re sult MANUALLY TRANSCRIBED RESULTS from Last 3 Months Insurance [place] [employer] Care Teams Clerk Supervisor Relationship Specialty Start Date End Date No Pcp, No Pcp RUY Stephen [phone] PCP - General Family Medicine 04/27/20
--- OUTSIDE RECORDS SUMMARY | 2025-06-05 08:56 | XMS_ITS | Encounter Summary ---
Author Organization [facility] Address [address] [place] [address] Care Team Providers Care Soil Conservation Teacher Name Role Phone Unavailable Primary Care Provider Unavailabl e Encounter Details Date Type Department Care Team (Late st Contact Info) Description 05/30/2025 Telephone [facility] [address] [place] [address] Tony Pringle, [address] [place] [address] Social History Tobacco Use Types Packs/Day [...] Telephone Encounter - Pia Ramesh LPN - 05/30/2025 9:24 AM EDT 9:04 am Ky, this is Paradise calling from maternal medicine over at [facility]. We are scheduled to see Carmelita Yanez in about 15 min here and I am trying to get her chart ready. One office note came over on care everywhere and that is it. So I was wondering if you could send some office notes along With any mention of genetic testing, I do not see that mentioned anywhere, so if she did nothave it, if you could just write that on the fax if she did have it, if you could send it over and then also her referral form says she is , but the nurse note that I see says G 1 so I was just looks like she is had A C section, so she is at least G2. But if you could send something that clarifies her history. Our fax number is [phone]. And my direct phone number is [phone]. Thank you, anita howard. 9:20 am- Called and spoke with Paradise and tea advise do not see any Genetic testing on patient and confirmed per Flow sheet she is . After more research into chart saw patient would be and consents for with information was sent to [facility] and updated in chart. documented in this encounter Plan of Treatment Not on file documented as of this encounter Visit Diagnoses Not on filedocumented in this encounter
--- OUTSIDE RECORDS SUMMARY | 2025-06-05 09:00 | XMS_ITS | CCD ---
Author Organization [facility] Care Team Providers Care Marking Machine Tender Name Role Phone Sidney Nava Unavailable Unavailable Unavailable Primary Care Provider Unavailabl e Unavailable Primary Care Provider Unavailabl e MALINI FRITZ Referring Unavailable CATRINA, MALINI Referring Unavailable CATRINAMALINI Referring Unavailable CATRINA, MALINI Referring Unavailable Rody [...] Consulting Unavailable KARASICandelaria, DR COOK Attending Unavailable KARMEAGANK, DR COOK Admitting Unavailable ZIEBER, DR MAYUR Noriega Consulting Unavailable Unavailable Primary Care Provider UnavailMEE Braga Attending Unavailable MEE PRINGLE Attending Unavailable MEE PRINGLE Attending Unavailable No Pcp, No Pcp Primary Care Provider UnavailMEE Braga Referring Unavailable NO PCP, NO PCP Primary Care Unavailable NOHEMY HERNANDEZ Attending Unavailable MEE PRINGLE Referring Unavailable NO PCP, NO PCP Primary Care Unavailable Allergies Allergy Classification Reported Allergen(s) Allergy Type Date of Onset Reaction(s) Facility (2 sources) Penicillins; Translations: [PENICILLINS] Drug allergy (disorder) 3 [facility] Repository (13 sources) Penicillin G Drug Allergy 5 [facility] Healthcare Work Phone: (3 sources) Penicillins Propensity to adverse reactions to drug 0 [facility] Medications Current Medications Medication Drug Class(es) Dates Sig (Normalized) Sig (Original) buprenorphine 8 mg / naloxone 2 mg sublingual film (15 sources) Partial Opioid Agonist, Opioid Antagonist Start: 03-27-2025 Suboxone 8-[address] 1 Film under the tongue Daily 03/27/2025 Active buprenorphine-na loxone (SUBOXONE) 8-2 mg film Dissolve 1 Film on tongue in the morning. Active FLUoxetine 40 mg oral capsule (3 sources) Serotonin Reuptake Inhibitor FLUoxetine (PROzac) 40 mg capsule Take 60 mg by mouth daily. Active gabapentin 100 mg oral capsule (14 sources) Anti-epileptic Agent take 1 capsule by mouth at bedtime gabapentin (NEURONTIN) 100 mg capsule Take 1 capsule (100 mg total) by mouth before bedtime. Active hydrOXYzine pamoate 100 mg oral capsule (3 sources) Antihistamine take 1 capsule by mouth once daily hydrOXYzine (VISTARIL) 100 mg capsule Take 100 mg by mouth daily. Active magnesium oxide 400 mg oral tablet (13 sources) Start: 04-13-20 End: 04-13-20 26 take 1 tablet by mouth once daily magnesium oxide (Mag-Ox) 400 MG tablet Indications: headache in second trimester ([facility]) Take 1 tablet (400 mg) by mouth Daily 30 tablet 11 04/13/2025 04/13/2026 Active naltrexone microspheres (VIVITROL IM) (3 sources) naltrexone microspheres (VIVITROL IM) Inject into the appropriate muscle. Active no115/iron/folic acid ( 19 ORAL) (1 source) take 1 tablet by mouth at bedtime no115/iron/folic acid ( 19 ORAL) Take 1 tablet by mouth before bedtime. Active QUEtiapine 50 mg oral tablet (16 sources) Atypical Antipsychotic Start: 05-23-20 25 take 1 tablet by mouth at bedtime QUEtiapine (SEROquel) 50 MG tablet Take 50 mg by mouth at bedtime 03/23/2025 Active QUEtiapine (SERO quel) 200 mg tablet Take 50 mg by mouth nightly. Active take 1 tablet by mouth once pilar y QUEtiapine (SEROquel) 200 mg tablet Take 200 mg by mouth nightly. Active Problems Active Problems Problem Classification Problem Date Documented Date Episodic/Chronic Anxiety disorders (1 source) Anxiety disorder, unspecified; Translations: [ANXIETY DISORDER UNSPECIFIED] Onset: 07-31-2022 Chronic Contraceptive and procreative management (4 sources) Sterilization requested; Translations: [Encounter for sterilization] 05-02-2025 Episodic Hepatitis (3 sources) Viral hepatitis C; Translations: [Unspecified viral hepatitis C without hepatic coma] Onset: 05-30-2025 05-30-2025 Episodic Hepatitis (1 source) Hepatitis Onset: 05-30-2025 Menstrual disorders (1 source) Missed period; Translations: [...] conditions (not mental disorders or infectious disease) (7 sources) Encounter for screening for malignant neoplasm of cervix; Translations: [Patient encounter status] Onset: 06-15-2022 Episodic Residual codes; unclassified (2 sources) Gestation period, 25 weeks; Translations: [25 weeks gestation of ] 04-18-2025 Episodic Residual codes; unclassified (2 sources) Gestation period, 27 weeks; Translations: [27 weeks gestation of ] 05-02-2025 Episodic Residual codes; unclassified (5 sources) History of placental abruption; Translations: [Personal history of other complications of , childbirth and the puerperium] 05-02-2025 Episodic Residual codes; unclassified (2 sources) Gestation period, 29 weeks; Translations: [29 weeks gestation of ] 05-16-2025 Episodic Residual codes; unclassified (1 source) Personal history of other complications of , childbirth and the puerperium; Translations: [Personal history of other complications of , childbirth and the puerperium] Onset: 05-30-2025 Episodic Substance-related disorders (6 sources) Nicotine dependence, cigarettes, uncomplicated; Translations: [Opioid abuse, uncomplicated] Onset: 05-12-2022 05-02-2025 Chronic Unclassified (2 sources) LOW BACK PAIN, UNSPECIFIED; Translations: [LOW BACK PAIN, UNSPECIFIED] Onset: 07-31-2022 Unclassified (1 source) Current Everyday Smoker Onset: 05-30-2025 Past or Other Problems Problem Classification Problem [...] Episodic Other aftercare (5 sources) Other intermediate frame tender (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 therapy; Translations: [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 DRUG THERAPY] Onset: 07-31-2022 Episodic Other [...] Translations: [LOW BACK PAIN, UNSPECIFIED] Onset: 07-29-2022 Unclassified (1 source) History of placental abruption 05-30-2025 Results Test Name Value Interpretation Reference Range Facil ity CBC without diffOrdered By: Paradise Elver on 05-21-2025 Hematocrit (Bld) [Volume fraction] 30.6 % [facility] Hemoglobin (Bld) [Mass/Vol] 10.8 g/dL [facility] Platelets (Bld) [#/Vol] 176 10*3/uL [facility] Rbc Mcv (Fl) By Automated Count 79.3 [facility] Drug Screen, Urineon 025 Amphetamine/Methamphet amine Negative [facility] Barbiturates Negative [facility] Benzodiazepines Negative [facility] Cocaine Metabolite Negative [facility] Methadone Negative [facility] Opiates Negative [facility] Oxycodone Negative [facility] Phencyclidine Negative [facility] Thc Marijuana, Urine Negative [facility] HBV surface Ag IA Qlon 05-21 Hepatitis B Surface Antigen Negative [facility] HCV Ab IA Qlon 05-21-2025 HCV Ab Ql (S) Reactive [facility] HIV 1+2 Ab+HIV1 p24 Ag IA Ql on 05-21-2025 HIV 1&2 AB/AG Non-Reactive [facility] Hemoglobin A1con 05-21-2025 HbA1c (Bld) [Mass fraction] 4.7 % 4.0 - 6.0 % [facility] No Panel Informationon 05-21 [facility] Healthcare Rubella IGG immune statuson 05-21-2025 Rubella immune IgG [facility] T. pallidum IgG+IgM IA Ql (S )on 05-21-2025 Syphilis Non-Reactive [facility] DRUG SCREEN RAPID (URINE )on 05-21-2025 AMPHETAMINE SCREEN URINE Negative NEGATIVE [facility] BARBITURATES SCREEN URINE Negative NEGATIVE [facility] BENZODIAZEPINES SCREEN URINE Negative NEGATIVE [facility] BUPRENORPHINE SCREEN URINE Positive Abnormal NEGATIVE [facility] Comment on above: DRUG CLASS TEST SYST EM CUT-OFF CONCENTRATIONS ARE FOLLOWS: AMP (Amphetamine): 500 ng/mL BAR (Barbiturates): 200 ng/mL BZO (Benzodiazepines): 150 ng/mL BUP (Buprenorphine): 10 ng/mL BRITTANY (Cocaine): 150 ng/mL mAMP (Methamphetamine): 500 ng/mL MTD (Methadone): 200 ng/mL OPI (Opiates): 100 ng/mL OXY (Oxycodone): 100 ng/mL PCP (Phencyclidine): 25 ng/mL THC (Cannabinoids): 50 ng/mL TCA (Trycyclic Antidepressants): 300 ng/mL CANNABINOID SCREEN URINE Negative NEGATIVE [facility] COCAINE SCREEN URINE Negative NEGATIVE [facility] Interpretation and review of laboratory results Abnormal [facility] METHADONE SCREEN URINE Negative NEGATIVE NO MS [facility] METHAMPHETAMINES SCREEN URINE Negative NEGATIVE [facility] OPIATE SCREEN URINE Negative NEGATIVE [facility] OXYCODONE SCREEN URINE Negative NEGATIVE NO [facility] PHENCYCLIDINE SCREEN URINE Negative NEGATIVE [facility] TRICYCLIC ANTIDEPRESSANT URINE Negative NEGATIVE [facility] Type and screenon 05-21-2025 Abo/Rh(D) Positive [facility] Urinalysis macro (dipstick) panel (U)on 05-16-2025 Bilirubin, UA Negative Negative - 4(70) +++ mg/dL [facility] Blood, UA Negative Negative - 50 Amador/mcL [facility] Clarity, UA Clear [facility] Color, UA Yellow [facility] Glucose, UA Negative Negative - 1999(110) ++++ mg/dL [facility] Interpretation and review of laboratory results Abnormal [facility] Ketones, UA Negative Negative - 160(16) ++++ mg/dL [facility] Leukocytes, UA Moderate Negative - 500+++ Camille/mcL [facility] Nitrite, UA Negative Negative - Positive [facility] pH, UA 6.5 5 - 9 [facility] Protein, UA Negative Negative - 1999(20) ++++ mg/dL [facility] Spec Grav, UA 1.02 1 - 1.03 [facility] Urobilinogen, UA 1.0 0.2 - 12 mg/dL [facility] Urinalysis macro (dipstick) panel (U)on 04-18-2025 Bilirubin, UA Negative Negative - 4(70) +++ mg/dL [facility] Blood, UA Negative Negative - 50 Amador/mcL [facility] Clarity, UA Clear [facility] Color, UA Yellow [facility] Glucose, UA Negative Negative - 1999(110) ++++ mg/dL [facility] Interpretation and review of laboratory results Abnormal [facility] Ketones, UA Negative Negative - 160(16) ++++ mg/dL [facility] Leukocytes, UA Positive Negative - 500+++ Camille/mcL [facility] Nitrite, UA Negative Negative - Positive [facility] pH, UA 7.5 5 - 9 [facility] Protein, UA Negative Negative - 2000(20) ++++ mg/dL [facility] Spec Grav, UA 1.015 1 - 1.03 [facility] Urobilinogen, UA 0.2 0.2 - 12 mg/dL [facility] No Panel InformationOrdered By: Radiologist Radiology on 04-09-2025 [facility] Work Phone: No Panel Informationon 04-09 Radiology Study observation (narrative) [facility] US OB ANATOMYon 04-09-[address] [address] Ultrasound Report Signed Patient: CARMELITA CASON MR#: [id number] : 1990 Acct:[id number] Age/Sex: 34 / F ADM Date: 04/09/25 Loc: US Attending Dr: Paradise Olvera Ordering Physician: Paradise Olvera Date of Service: 04/09/25 Procedure(s): US OB anatomy Accession Number(s): [id number] cc: Paradise Olvera; ROMEO GAR [address] [address] Patient Name: CARMELITA CASON MRN: [id number] date: 1990 Sex: F Assigned Patient Location: Current Patient Location: US Accession/Order Number: [id number] Exam Date: 04/09/2025 12:20 Report Date: 04/09/2025 [...] all 4 extremities were surveyed by the endless steamer tender. No abnormalities were detected. The stomach, bladder, [...] Zelaya M.D. 04/09/2025 1:01 PM Dictation Location: [place] [address] Electronically authenticated by: [id number] Y Date: 04/09/2025 13:01 Dictated By: Raine Zelaya M.D. Signed By: 04/09/25 1304 DD/ 1301 TD/TT: Aircraft Powerplant Repairer: [facility] Radiology, Radiologist, MD - 04/09/2025 [place] [address] Ultrasound Report Signed Patient: CARMELITA CASON MR#: [id number] : 1990 Acct:[id number] Age/Sex: 34 / F ADM Date: 04/09/25 Loc: US Attending Dr: Paradise Olvera Ordering Physician: Paradise Olvera Date of Service: 04/09/25 Procedure(s): US OB anatomy Accession Number(s): [id number] cc: Paradise Olvera; ROMEO GAR [address] [place] [id number] Patient Name: CARMELITA CASON MRN: [facility]:[id number] date: 1990 Sex: F Assigned Patient Location: Current Patient Location: Accession/Order Number: [id number] Exam Date: 04/09/2025 12:20 Report Date: 04/09/2025 [...] all 4 extremities were surveyed by the endless steamer tender. No abnormalities were detected. The stomach, bladder, [...] Zelaya M.D. 04/09/2025 1:01 PM Dictation Location: [place] [address] Electronically authenticated by: [id number] Y Date: 04/09/2025 13:01 Dictated By: Raine Zelaya M.D. Signed By: 04/09/25 1304 DD/ 1301 TD/TT: Aircraft Powerplant Repairer: [facility] OB CERVICAL LENGTHon [address] [address] Ultrasound Report Signed Patient: CARMELITA CASON MR#: [id number] : 1990 Acct:[id number] Age/Sex: 34 / F ADM Date: 04/09/25 Loc: US Attending Dr: Paradise Olvera Ordering Physician: Paradise Olvera Date of Service: 04/09/25 Procedure(s): US OB cervical length Accession Number(s): [id number] cc: Paradise Olvera; ROMEO GAR [place] [address] Patient Name: CARMELITA CASON MRN: [id number] date: 1990 Sex: F Assigned Patient Location: US Current Patient Location: US Accession/Order Number: [id number] Exam Date: 04/09/2025 12:20 Report Date: 04/09/2025 [...] all 4 extremities were surveyed by the endless steamer tender. No abnormalities were detected. The stomach, bladder, [...] Zelaya M.D. 04/09/2025 1:01 PM Dictation Location: [place] [address] Electronically authenticated by: [id number] Y Date: 04/09/2025 13:01 Dictated By: Raine Zelaya M.D. Signed By: 04/09/25 1304 DD/ 1301 TD/TT: Aircraft Powerplant Repairer: [facility] Radiology, Radiologist, MD - 04/09/2025 [place] [address] Ultrasound Report Signed Patient: CARMELITA CASON MR#: [id number] : 1990 Acct:[id number] Age/Sex: 34 / F ADM Date: 04/09/25 Loc: US Attending Dr: Paradise Olvera Ordering Physician: Paradise Olvera Date of Service: 04/09/25 Procedure(s): US OB cervical length Accession Number(s): [id number] cc: Paradise Olvera; ROMEO GAR [address] [address] Patient Name: CARMELITA CASON MRN: [facility]:[id number] date: 1990 Sex: F Assigned Patient Location: US Current Patient Location: US Accession/Order Number: [id number] Exam Date: 04/09/2025 12:20 Report Date: 04/09/2025 [...] all 4 extremities were surveyed by the endless steamer tender. No abnormalities were detected. The stomach, bladder, [...] Zelaya M.D. 04/09/2025 1:01 PM Dictation Location: [place] [address] Electronically authenticated by: [id number] Y Date: 04/09/2025 13:01 Dictated By: Raine Zelaya M.D. Signed By: 04/09/25 1304 DD/ 1301 TD/TT: Aircraft Powerplant Repairer: [facility] HCG ( test) Ql (U)O rdered By: Arabella Hill on 04-06-2025 Interpretation and review of laboratory results Abnormal [facility] Preg Test, Ur Positive Negative [facility] Urinalysis macro (dipstick) panel (U)on 04-06-2025 Bilirubin, UA Negative Negative - 4(70) +++ mg/dL [facility] Blood, UA Negative Negative - 50 Amador/mcL [facility] Clarity, UA Clear [facility] Color, UA Yellow [facility] Glucose, UA Negative Negative - 2000(110) ++++ mg/dL [facility] Interpretation and review of laboratory results Normal [facility] Ketones, UA Negative Negative - 160(16) ++++ mg/dL [facility] Leukocytes, UA Negative Negative - 500+++ Camille/mcL [facility] Nitrite, UA Negative Negative - Positive [facility] pH, UA 6.5 5 - 9 [facility] Protein, UA Negative Negative - 2000(20) ++++ mg/dL [facility] Spec Grav, UA 1.02 1 - 1.03 [facility] Urobilinogen, UA 1.0 0.2 - 12 mg/dL [facility] US OB L= 14 [place] [address] Ultrasound Report Signed Patient: CARMELITA CAOSN MR#: [id number] : 1990 Acct:[id number] Age/Sex: 34 / F ADM Date: 01/22/25 Loc: US Attending Dr: Mee Pringle D.O. Ordering Physician: Mee Pringle D.O. Date of Service: 01/22/25 Procedure(s): US OB <= 14 weeks fetus Accession Number(s): [id number] cc: ROMEO GAR ; Mee Pringle D.O. [place] [id number] Patient Name: CARMELITA CASON MRN: [id number] date: 1990 Sex: F Assigned Patient Location: Current Patient Location: Accession/Order Number: [id number] Exam Date: 01/22/2025 14:49 Report Date: 01/22/2025 [...] Sorto Jr., D.O.01/22/2025 2:50 PM Dictation Location: [employer] Electronically authenticated by: [id number] Y Date: 01/22/2025 14:50 Dictated By: Serafin Sorto M.D. Signed By: 01/22/25 1453 DD/ 1450 TD/TT: Aircraft Powerplant Repairer: [facility] Radiology, Radiologist, - 01/22/2025 [place] [address] Ultrasound Report Signed Patient: CARMELITA CASON MR#: [id number] : 1990 Acct:[id number] Age/Sex: 34 / F ADM Date: 01/22/25 Loc: US Attending Dr: Mee Pringle D.O. Ordering Physician: Mee Pringle D.O. Date of Service: 01/22/25 Procedure(s): US OB <= 14 weeks fetus Accession Number(s): [id number] cc: ROMEO GAR ; Mee Pringle D.O. [place] [address] Patient Name: CARMELITA CASON MRN: [facility]:[id number] date: 1990 Sex: F Assigned Patient Location: Current Patient Location: Accession/Order Number: [id number] Exam Date: 01/22/2025 14:49 Report Date: 01/22/2025 [...] Sorto Jr., D.O.01/22/2025 2:50 PM Dictation Location: [employer] Electronically authenticated by: [id number] Y Date: 01/22/2025 14:50 Dictated By: Serafin Sorto M.D. Signed By: 01/22/25 145 DD/ 49 TD/TT: Aircraft Powerplant Repairer: [facility] Radiology Study observation (narrative) [facility] US OB L= 14 WEEKS FETUSOrder ed By: Radiologist Radiology on 01-22-2025 [facility] Work Phone: [facility] PREG QUANT HCGon 025 HCG QUANTITATIVE 3026 mIU/mL [facility] Comment on above: 5-50 0.2-1 WEEK 50-500 1-2 WEEKS 100-5,000 2-3 WEEKS 500-10,000 3-4 WEEKS 1,000-50,000 4-5 WEEKS 10,000-100,000 5-6 WEEKS 15,000-200,000 6-8 WEEKS 10,000-100,000 2-[address] [facility] COMPLIANCE DRUG SCREENon PDF . Normal [facility] Comment on above: Performed By: #### D SDOALC #### [facility] [address] [place] [address] [address] Roberto Parmar Summary FINAL Normal [facility] Comment on above: Result Comment: ===== TOXASSURE [...] is an expected metabolite of dextromethorphan, an kqda-afy-tqzocnh or prescription cough suppressant. Levorphanol is a scheduled prescription medication. Dextrorphan cannot be distinguished from levorphanol by the method used for analysis. Guaifenesin PRESENT UNEXPECTED Guaifenesin may be administered as an xrbe-jvk-zyefuxh or prescription drug; it may also be [...] ===== Performed By: #### D SDOALC #### [facility] [address] [place] [address] Dr. Roberto Parmar URIC ACID RAND URINEon 09-03 Uric Acid, Urine 12.4 mg/dL Normal Not Estab. [facility] Comment on above: Performed By: #### U RICUR #### [facility] [address] [place] [address] Dr. Roberto Parmar DRUG SCREEN RAPID (URINE)on 09-02-2022 AMP Negative Normal NEGATIVE [facility] Comment on above: Performed By: #### D RUGRPD #### [facility] [address] [place] [address] Dr. Roberto Parmar BAR Negative Normal NEGATIVE [facility] Comment on above: Performed By: #### D RUGRPD #### [facility] [address] [place] [address] Dr. Roberto Parmar BUP Positive Abnormal NEGATIVE [facility] Comment on above: Performed By: #### D RUGRPD #### [facility] [address] [place] [address] Dr. Roberto Parmar BZO Positive Abnormal NEGATIVE [facility] Comment on above: Performed By: #### D RUGRPD #### [facility] [address] [place] [address] Dr. Roberto Parmar BRITTANY Negative Normal NEGATIVE [facility] Comment on above: Performed By: #### D RUGRPD #### [facility] [address] [place] [address] Dr. Roberto Parmar CUT-OFFS SEE BELOW Normal [facility] Comment on above: Result [...] ng/mL Performed By: #### D RUGRPD #### [facility] [address] [place] [address] Dr. Roberot Parmar DRUG CUT HEADER DRUG CLASS TEST SYSTEM CUT-OFF CONCENTRATIONS ARE FOLLOWS: Normal [facility] Comment on above: Performed By: #### D RUGRPD #### [facility] [address] [place] [address] Dr. Roberto Parmra mAMP Negative Normal NEGATIVE [facility] Comment on above: Performed By: #### D RUGRPD #### [facility] [address] [place] [address] Dr. Roberto Parmar MTD Negative Normal NEGATIVE [facility] Comment on above: Performed By: #### D RUGRPD #### [facility] [address] [place] [address] Dr. Roberto Parmar OPI Negative Normal NEGATIVE [facility] Comment on above: Performed By: #### D RUGRPD #### [facility] [address] [place] [address] Dr. Roberto Parmar OXY Negative Normal NEGATIVE [facility] Comment on above: Performed By: #### D RUGRPD #### [facility] [address] [place] [address] Dr. Roberto Parmar PCP Negative Normal NEGATIVE [facility] Comment on above: Performed By: #### D RUGRPD #### [facility] [address] [place] [address] [address] Roberto Parmar PPX Negative Normal NEGATIVE [facility] Comment on above: Performed By: #### D RUGRPD #### [facility] [address] [place], [place] [address] Dr. Roberto Parmar TCA Negative Normal NEGATIVE [facility] Comment on above: Performed By: #### D RUGRPD #### [facility] [address] [place] [address] [address] Roberto Parmar THC Negative Normal NEGATIVE [facility] Comment on above: Performed By: #### D RUGRPD #### [facility] [address] [place] [address] [address] Roberto Parmar US PELVIS AND TRANSVAGon [...] by: MAYUR ALLEN Date: 2022-07-13 07:21 Normal [facility] PAP ACOG PANEL 2: 21 to 29on 06-18-2022 . . Normal [facility] Comment on above: Performed By: #### [id number] #### [facility] [address] [place] [address] Dr. Roberto Parmar Age Gdln ACOG Testing 21-29 [facility] Comment on above: Performed By: #### [id number] #### [facility] [address] [place] [address] Dr. Roberto Parmar DIAGNOSIS: Comment [facility] Comment on above: Result Comment: NEGA TIVE FOR INTRAEPITHELIAL LESION OR MALIGNANCY. Performed By: #### [id number] #### [facility] [address] [place] [address] Dr. Roberto Parmar Methodology: Comment [facility] Comment on above: Result Comment: This liquid based ThinPrep(R) pap test was screened with the use of an image guided system. Performed By: #### [id number] #### [facility] [address] [place] [address] Dr. Roberto Parmar Note: Comment [facility] Comment on above: Result Comment: The Pap smear is a screening test designed to aid in the detection of premalignant and malignant conditions of the uterine cervix. It is not a diagnostic procedure and should not be used as the sole means of detecting cervical cancer. Both false-positive and false-negative reports do occur. . Performed By: #### 4 [id number] #### [facility] [address] [place] [address] Dr. Roberto Parmar Performed by: Comment Normal [facility] Comment on above: Result Comment: Kishore De Dios 911 Dispatcher (ASCP) Performed By: #### [id number] #### [facility] [address] [place] [address] Dr. Roberto Parmar Reflex Criteria: Comment [facility] Comment on above: Result Comment: The HPV DNA reflex criteria were not met with this specimen result therefore, no HPV testing was performed. . Performed By: #### [id number] #### [facility] [address] [place] [address] Dr. Roberto Parmar Specimen adequacy: Comment Normal [facility] Comment on above: Result Comment: Sati sfactory for evaluation. Endocervical and/or squamous metaplastic cells (endocervical component) are present. Performed By: #### [id number] #### [facility] [address] [place], [place] [id number] Dr. Roberto Parmar CBCon 12-06-2020 Erythrocyte distribution width (RBC) [Ratio] 13.6 % Normal 11.8-14.4 [facility] Comment on above: Performed By: #### P HEP, HIVCMB #### [address] [address] Oil Speculator: Alvino Davila MD #### CP, CBC, HCG #### [address] [place] [id number] Oil Speculator: Luis A Peng MD Hematocrit (Bld) [Volume fraction] 44.1 % Normal 36.3-47.1 [facility] Comment on above: Performed By: #### P HEP, HIVCMB #### [address] [address] Oil Speculator: Alvino Davila MD #### CP, CBC, HCG #### [address] [place] [phone] Oil Speculator: Luis A Peng MD Hemoglobin (Bld) [Mass/Vol] 14.1 g/dL Normal 11.9-15.1 [facility] Comment on above: Performed By: #### P HEP, HIVCMB #### [address] [address] Oil Speculator: Alvino Davila MD #### CP, CBC, HCG #### [facility] [address] [place] [address] Dr. [place], [place] [phone] Oil Speculator: Luis A Peng MD MCH (RBC) [Entitic mass] 25.4 pg Normal 25.2-33.5 [facility] Comment on above: Performed By: #### P HEP, HIVCMB #### [address] [address] Oil Speculator: Alvino Davila MD #### CP, CBC, HCG #### [address] [place] [phone] Oil Speculator: Luis A Peng MD MCHC (RBC) [Mass/Vol] 32.0 g/dL Normal 28.4-34.8 [facility] Comment on above: Performed By: #### P HEP, HIVCMB #### [address] [phone] Oil Speculator: Alvino Davila MD #### CP, CBC, HCG #### [address] [place] [phone] Oil Speculator: Luis A Peng MD MCV (RBC) [Entitic vol] 79.5 fL Low 82.6-102.9 [facility] Comment on above: Performed By: #### P HEP, HIVCMB #### [address] [address] Oil Speculator: Alvino Davila MD #### CP, CBC, HCG #### [address] [place] [phone] Oil Speculator: Luis A Peng MD NRBC Automated 0.0 per 100 WBC Normal 0.0 [facility] Comment on above: Performed By: #### P HEP, HIVCMB #### [address] [address] Oil Speculator: Alvino Davila MD #### CP, CBC, HCG #### [address] [place] [phone] Oil Speculator: Luis A Peng MD Platelet mean volume (Bld) [Entitic vol] 11.8 fL Normal 8.1-13.5 [facility] Comment on above: Performed By: #### P HEP, HIVCMB #### [facility] [address] [place] [address] Oil Speculator: Alvino Davila MD #### CP, CBC, HCG #### [facility] [address] [place] [address] Oil Speculator: Luis A Peng MD Platelets (Bld) [#/Vol] 238 10*3/uL Normal 138-453 [facility] Comment on above: Performed By: #### P HEP, HIVCMB #### [address] [address] Oil Speculator: Avlino Davila MD #### CP, CBC, HCG #### [address] [place], [place] [phone] Oil Speculator: Luis A Peng MD RBC (Bld) [#/Vol] 5.55 10*6/uL High 3.95-5.11 [facility] Comment on above: Performed By: #### P HEP, HIVCMB #### [address] [address] Oil Speculator: Alvino Davila MD #### CP, CBC, HCG #### [facility] [address] [place] [address] Dr. [place], [place] [phone] Oil Speculator: Luis A Peng MD WBC (Bld) [#/Vol] 8.6 10*3/uL Normal 3.5-11.3 [facility] Comment on above: Performed By: #### P HEP, HIVCMB #### [facility] [address] [place] [address] Oil Speculator: Alvino Davila MD #### CP, CBC, HCG #### [facility] [address] [place], [place] [phone] Oil Speculator: Luis A Peng MD Erythrocyte distribution width (RBC) [Ratio] 13.6 % 11.8 - 14.4 % [place] Hematocrit (Bld) [Volume fraction] 44.1 % 36.3 - 47.1 % [place] Hemoglobin (Bld) [Mass/Vol] 14.1 g/dL 11.9 - 15.1 g/dL [place] Interpretation and review of laboratory results Abnormal [place] MCH (RBC) [Entitic mass] 25.4 pg 25.2 - 33.5 pg [place] MCHC (RBC) [Mass/Vol] 32.0 g/dL 28.4 - 34.8 g/dL [place] MCV (RBC) [Entitic vol] 79.5 fL Low 82.6 - 102.9 fL [place] Platelet mean volume (Bld) [Entitic vol] 11.8 fL 8.1 - 13.5 fL [place] Platelets (Bld) [#/Vol] 238 10*3/uL [place] RBC (Bld) [#/Vol] 5.55 10*6/uL High 3.95 - 5.1 1 m/uL [place] WBC (Bld) [#/Vol] 8.6 10*3/uL [place] WBC (Bld) [#/Vol] 0.0 10*3/uL 0.0 per 100 WBC [place] Comp Metabolic Profon 2020 (cont.) Normal [facility] Comment on above: Result Comment: Aver age GFR for 20-29 years old: 116 mL/min/1.73sq m Chronic Kidney Disease: <60 mL/min/1.73sq m Kidney failure: <15 mL/min/1.73sq m eGFR calculated using average adult body mass. Additional eGFR calculator available at: http://www.[employer]/multiple_crcl_2011.htm Performed By: #### P HEP, HIVCMB #### [address] [id number] Oil Speculator: Alvino Davila MD #### CP, CBC, HCG #### [address] [place], [place] [phone] Oil Speculator: Luis A Peng MD Albumin [Mass/Vol] 4.6 g/dL Normal 3.5-5.2 [facility] Comment on above: Performed By: #### P HEP, HIVCMB #### [address] [address] Oil Speculator: Alvino Davila MD #### CP, CBC, HCG #### [address] [place], [place] [phone] Oil Speculator: Luis A Peng MD Albumin/Globulin [Mass ratio] 1.6 {ratio} Normal 1.0-2.5 [facility] Comment on above: Performed By: #### P HEP, HIVCMB #### [address] [address] Oil Speculator: Alvino Davila MD #### CP, CBC, HCG #### [address] [place], [place] [phone] Oil Speculator: Luis A Peng MD Alkaline Phos 81 U/L Normal 35-104 [facility] Comment on above: Performed By: #### P HEP, HIVCMB #### [address] [address] Oil Speculator: Alvino Davila MD #### CP, CBC, HCG #### [address] [place], [place] [phone] Oil Speculator: Luis A Peng MD ALT [Catalytic activity/Vol] 39 U/L High 5-33 [facility] Comment on above: Performed By: #### P HEP, HIVCMB #### [address] [address] Oil Speculator: Alvino Davila MD #### CP, CBC, HCG #### [address] [place], [place] [phone] Oil Speculator: Luis A Peng MD Anion gap [Moles/Vol] 12 mmol/L Normal 9-17 [facility] Comment on above: Performed By: #### P HEP, HIVCMB #### [address] [address] Oil Speculator: Alvino Davila MD #### CP, CBC, HCG #### [facility] [address] [place], [place] [phone] Oil Speculator: Luis A Peng MD AST [Catalytic activity/Vol] 28 U/L Normal <32 [facility] Comment on above: Performed By: #### P HEP, HIVCMB #### [address] [address] Oil Speculator: Alvino Davila MD #### CP, CBC, HCG #### [address] [place] [phone] Oil Speculator: Luis A Peng MD Bilirubin Ql (U) 0.26 mg/dL Low 0.3-1.2 [facility] Comment on above: Performed By: #### P HEP, HIVCMB #### [address] [address] Oil Speculator: Alvino Davila MD #### CP, CBC, HCG #### [address] [place], [place] [phone] Oil Speculator: Luis A Peng MD BUN/CRE Ratio 14 Normal 9-20 [facility] Comment on above: Performed By: #### P HEP, HIVCMB #### [address] [address] Oil Speculator: Alvino Davila MD #### CP, CBC, HCG #### [address] [place], [place] 1081983 Oil Speculator: Luis A Peng MD Calcium [Mass/Vol] 10.1 mg/dL Normal 8.6-10.4 [facility] Comment on above: Performed By: #### P HEP, HIVCMB #### [address] [address] Oil Speculator: Alvino Davila MD #### CP, CBC, HCG #### [facility] [address] [place] [phone] Oil Speculator: Luis A Peng MD Chloride [Moles/Vol] 101 mmol/L Normal 98-107 [facility] Comment on above: Performed By: #### P HEP, HIVCMB #### [address] [address] Oil Speculator: Alvino Davila MD #### CP, CBC, HCG #### [facility] [address] [place] [address] [place] [phone] Oil Speculator: Luis A Peng MD CO2 [Moles/Vol] 26 mmol/L Normal 20-31 [facility] Comment on above: Performed By: #### P HEP, HIVCMB #### [address] [address] Oil Speculator: Alvino Davila MD #### CP, CBC, HCG #### [address] [place] [phone] Oil Speculator: Luis A Peng MD Creatinine [Mass/Vol] 0.49 mg/dL Low 0.50-0.90 [facility] Comment on above: Performed By: #### P HEP, HIVCMB #### [address] [address] Oil Speculator: Alvino Davila MD #### CP, CBC, HCG #### [facility] [address] [place] [phone] Oil Speculator: Luis A Peng MD GFR, Amer >60 Normal >60 [facility] Comment on above: Performed By: #### P HEP, HIVCMB #### [facility] [address] [place] [address] Oil Speculator: Alvino Davila MD #### CP, CBC, HCG #### [facility] [address] [place], [place] [phone] Oil Speculator: Luis A Peng MD GFR,non Amer >60 Normal >60 [facility] Comment on above: Performed By: #### P HEP, HIVCMB #### [place] [id number] [place] [address] Oil Speculator: Alvino Davila MD #### CP, CBC, HCG #### [facility] [address] [place] [address] Dr. [place], [place] [phone] Oil Speculator: Luis A Peng MD Glucose [Mass/Vol] 101 mg/dL High 70-99 [facility] Comment on above: Performed By: #### P HEP, HIVCMB #### [address] [address] Oil Speculator: Alvino Davila MD #### CP, CBC, HCG #### [facility] [address] [place] [address] Dr. [place], [place] [phone] Oil Speculator: Luis A Peng MD Potassium [Moles/Vol] 4.2 mmol/L Normal 3.7-5.3 [facility] Comment on above: Performed By: #### P HEP, HIVCMB #### [facility] [address] [place] [address] Oil Speculator: Alvino Davila MD #### CP, CBC, HCG #### [facility] [address] [place] [address] Dr. [place], [place] [phone] Oil Speculator: Luis A Peng MD Protein [Mass/Vol] 7.5 g/dL Normal 6.4-8.3 [facility] Comment on above: Performed By: #### P HEP, HIVCMB #### [address] [address] Oil Speculator: Alvino Davila MD #### CP, CBC, HCG #### [address] [place], [place] [phone] Oil Speculator: Luis A Peng MD Sodium [Moles/Vol] 139 mmol/L Normal 135-144 [facility] Comment on above: Performed By: #### P HEP, HIVCMB #### [address] [address] Oil Speculator: Alvino Davila MD #### CP, CBC, HCG #### [address] [place] [address] Oil Speculator: Luis A Peng MD Staging: Normal [facility] Comment on above: Result Comment: Stag e 1: Some kidney damage normal GFR Stage 2: Mild kidney damage GFR 60-89 Stage 3: Moderate kidney damage GFR 30-59 Stage 4: Severe kidney damage GFR 15-29 Stage 5: Severe kidney damage GFR <15 ESRD - chronic treatment by dialysis or transplant Performed By: #### P HEP, HIVCMB #### [address] [address] Oil Speculator: Alvino Davila MD #### CP, CBC, HCG #### [address] [place] [address] Oil Speculator: Luis A Peng MD Urea nitrogen [Mass/Vol] 7 mg/dL Normal 6-20 [facility] Comment on above: Performed By: #### P HEP, HIVCMB #### [address] [address] Oil Speculator: Alvino Davila MD #### CP, CBC, HCG #### [address] [place] [address] Oil Speculator: Luis A Peng MD Comprehensive Metabolic Pane liu 12-06-2020 Albumin [Mass/Vol] 4.6 g/dL 3.5 - 5.2 g/dL [place], [place] Albumin/Globulin [Mass ratio] 1.6 {ratio} [place], [place] ALP [Catalytic activity/Vol] 81 U/L 35 - 104 U/L [place] ALT [Catalytic activity/Vol] 39 U/L High 5 - 33 U/L [place] Anion gap [Moles/Vol] 12 mmol/L 9 - 17 mmol/L [place] AST [Catalytic activity/Vol] 28 U/L <32 [place] Bilirubin Ql (U) 0.26 mg/dL Low 0.3 - 1.2 mg/dL [place], [place] Bun/Cre Ratio 14 [place], [place] Calcium [Mass/Vol] 10.1 mg/dL 8.6 - 10. 4 mg/dL [place] Chloride [Moles/Vol] 101 mmol/L 98 - 107 mmol/L [place] CO2 [Moles/Vol] 26 mmol/L 20 - 31 mmol/L [place] Creatinine [Mass/Vol] 0.49 mg/dL Low 0.5 - 0.9 mg/d L [place] GFR >60 >60 mL/min [place] GFR Non- >60 >60 mL/min [place] Glucose [Mass/Vol] 101 mg/dL High 70 - 99 mg/dL [place], [place] Interpretation and review of laboratory results Abnormal [place] Potassium [Moles/Vol] 4.2 mmol/L 3.7 - 5.3 mmol/L [place] Protein [Mass/Vol] 7.5 g/dL 6.4 - 8.3 g/dL [place] Sodium [Moles/Vol] 139 mmol/L 135 - 144 mmol/L [place] Urea nitrogen [Mass/Vol] 7 mg/dL 6 - 20 mg/dL [place] HCG Qualitative, Serumon hCG Qual Negative NEGATIVE [facility] [place] Comment on above: Specimens with hCG l evels near the threshold of the test (25 mIU/mL) may give a negative or indeterminate result. In such cases, another test should be performed with a new specimen in 48-72 hours. If early is suspected clinically in this setting, correlation with quantitative serum b-hCG level is suggested. [facility] has confirmed the use of plasma for this test. This has not been cleared or approved by the U.S. Food and Drug Administration. The FDA has determined that such clearance is not necessary. HCG Screen, Bloodon 12-06-19 21 HCG Qn Negative Normal NEG [facility] Comment on above: Result Comment: Spec imens with hCG levels near the threshold of the test (25 mIU/mL) may give a negative or indeterminate result. In such cases, another test should be performed with a new specimen in 48-72 hours. If early is suspected clinically in this setting, correlation with quantitative serum b-hCG level is suggested. [facility] has confirmed the use of plasma for this test. This has not been cleared or approved by the U.S. Food and Drug Administration. The FDA has determined that such clearance is not necessary. Performed By: #### P HEP, HIVCMB #### [facility] [address] [place], [place] [phone] Oil Speculator: Alvino Davila MD #### CP, CBC, HCG #### [facility] [address] [place] [address] [place] [address] Oil Speculator: Luis A Peng MD HIV Ag/Abon 12-06-2020 HIV Ag/Ab NONREACTIVE Normal NR [facility] Comment on above: Result Comment: No l aboratory evidence of HIV infection. If acute HIV infection is suspected, consider testing for HIV-1 RNA. Performed By: #### P HEP, HIVCMB #### [facility] [address] [place] [address] Oil Speculator: Alvino Davila MD #### CP, CBC, HCG #### [facility] [address] [place] [address] [place] [address] Oil Speculator: Luis A Peng MD HIV Screenon 12-06-2020 HIV Ag/Ab NONREACTIVE NONREACTIVE [place] Comment on above: No laboratory eviden ce of HIV infection. If acute HIV infection is suspected, consider testing for HIV-1 RNA. Hepatitis Acute [facility] 12-06 Hep A Ab,IgM NONREACTIVE Normal NR [facility] Comment on above: Performed By: #### P HEP, HIVCMB #### [address] [address] Oil Speculator: Alvino Davila MD #### CP, CBC, HCG #### [facility] [address] [place] [address] [place] [address] Oil Speculator: Luis A Peng MD Hep B Core Ab,IgM NONREACTIVE Normal [facility] Comment on above: Performed By: #### P HEP, HIVCMB #### [address] [address] Oil Speculator: Alvino Davila MD #### CP, CBC, HCG #### [facility] [address] [place] [address] [place] [address] Oil Speculator: Luis A Peng MD Hep B Surf Ag NONREACTIVE Normal [facility] Comment on above: Performed By: #### P HEP, HIVCMB #### [address] [address] Oil Speculator: Alvino Davila MD #### CP, CBC, HCG #### [facility] [address] [place] [address] [place], [place] [phone] Oil Speculator: Luis A Peng MD Hep C Ab REACTIVE Abnormal [facility] Comment on above: Result Comment: The [...] Performed By: #### P HEP, HIVCMB #### [facility] [address] [place] [address] Oil Speculator: Alvino Davila MD #### CP, CBC, HCG #### [facility] [address] [place] [address] Oil Speculator: Luis A Peng MD Hepatitis Panel, Acuteon HAV IgM IA Qn (S) NONREACTIVE NONREACTIVE [place] Hep B Core Ab, IgM NONREACTIVE NONREACTIVE [place] Hepatitis B Surface Ag NONREACTIVE NONREACTIVE [place] Hepatitis C Ab REACTIVE Abnormal NONREACTIVE [place] Comment on above: The hepatitis C [...] Interpretation and review of laboratory results Abnormal [place] Metabolic Panelon 12-06-2020 GFR/1.73 sq M predicted among non-blacks MDRD (S/P/Bld) [Vol rate/Area] [place] Comment on above: Stage 1: Some [...] body mass. Additional eGFR calculator available at: http://www.[employer]/multiple_crcl_2012.htm CBCon 05-30-2020 Erythrocyte distribution width (RBC) [Ratio] 12.7 % Normal 11.8-14.4 [facility] Comment on above: Performed By: #### C P, HCG, CBC #### [address] [place] [address] Oil Speculator: Luis A Peng MD #### HIVCMB, PHEP #### [address] [phone] Oil Speculator: Alvino Davila MD Hematocrit (Bld) [Volume fraction] 39.2 % Normal 36.3-47.1 [facility] Comment on above: Performed By: #### C P, HCG, CBC #### [address] [place] [phone] Oil Speculator: Luis A Peng MD #### HIVCMB, PHEP #### [address] [phone] Oil Speculator: Alvino Davila MD Hemoglobin (Bld) [Mass/Vol] 12.3 g/dL Normal 11.9-15.1 [facility] Comment on above: Performed By: #### C P, HCG, CBC #### [address] [place] [address] Oil Speculator: Luis A Peng MD #### HIVCMB, PHEP #### [address] [id number] Oil Speculator: Alvino Davila MD MCH (RBC) [Entitic mass] 26.2 pg Normal 25.2-33.5 [facility] Comment on above: Performed By: #### C P, HCG, CBC #### [address] [place] [address] Oil Speculator: Luis A Peng MD #### HIVCMB, PHEP #### [place] [address] [place], [place] [id number] Oil Speculator: Alvino Davila MD MCHC (RBC) [Mass/Vol] 31.4 g/dL Normal 28.4-34.8 [facility] Comment on above: Performed By: #### C P, HCG, CBC #### [address] [place] [address] Oil Speculator: Luis A Peng MD #### HIVCMB, PHEP #### [address] [id number] Oil Speculator: Alvino Davila MD MCV (RBC) [Entitic vol] 83.6 fL Normal 82.6-102.9 [facility] Comment on above: Performed By: #### C P, HCG, CBC #### [address] [place] [phone] Oil Speculator: Luis A Peng MD #### HIVCMB, PHEP #### [place] [id number] Oil Speculator: Alvino Davila MD NRBC Automated 0.0 per 100 WBC Normal 0.0 [facility] Comment on above: Performed By: #### C P, HCG, CBC #### [address] [place] [phone] Oil Speculator: Luis A Peng MD #### HIVCMB, PHEP #### [address] [id number] Oil Speculator: Alvino Davila MD Platelet mean volume (Bld) [Entitic vol] 10.9 fL Normal 8.1-13.5 [facility] Comment on above: Performed By: #### C P, HCG, CBC #### [address] [place] [address] Oil Speculator: Luis A Peng MD #### HIVCMB, PHEP #### [address] [id number] Oil Speculator: Alvino Davila MD Platelets (Bld) [#/Vol] 277 10*3/uL Normal 138-453 [facility] Comment on above: Performed By: #### C P, HCG, CBC #### [address] [place] [phone] Oil Speculator: Luis A Peng MD #### HIVCMB, PHEP #### [place] [id number] [place], [place] [id number] Oil Speculator: Alvino Davila MD RBC (Bld) [#/Vol] 4.69 10*6/uL Normal 3.95-5.11 [facility] Comment on above: Performed By: #### C P, HCG, CBC #### [address] [place] [phone] Oil Speculator: Luis A Peng MD #### HIVCMB, PHEP #### [place] [id number] [place] [id number] Oil Speculator: Alvino Davila MD WBC (Bld) [#/Vol] 5.5 10*3/uL Normal 3.5-11.3 [facility] Comment on above: Performed By: #### C P, HCG, CBC #### [address] [place] [phone] Oil Speculator: Luis A Peng MD #### HIVCMB, PHEP #### [place] [id number] Oil Speculator: Alvino Davila MD Erythrocyte distribution width (RBC) [Ratio] 12.7 % 11.8 - 14.4 % [place] Hematocrit (Bld) [Volume fraction] 39.2 % 36.3 - 47.1 % [place] Hemoglobin (Bld) [Mass/Vol] 12.3 g/dL 11.9 - 15.1 g/dL [place] MCH (RBC) [Entitic mass] 26.2 pg 25.2 - 33.5 pg [place] MCHC (RBC) [Mass/Vol] 31.4 g/dL 28.4 - 34.8 g/dL [place] MCV (RBC) [Entitic vol] 83.6 fL 82.6 - 102.9 fL [place] Platelet mean volume (Bld) [Entitic vol] 10.9 fL 8.1 - 13.5 fL [place] Platelets (Bld) [#/Vol] 277 10*3/uL [place] RBC (Bld) [#/Vol] 4.69 10*6/uL 3.95 - 5.1 1 m/uL [place] WBC (Bld) [#/Vol] 5.5 10*3/uL [place] WBC (Bld) [#/Vol] 0.0 10*3/uL 0.0 per 100 WBC M [place] Comp Metabolic Profon 2019 (cont.) Normal [facility] Comment on above: Result Comment: Aver age GFR for 20-29 years old: 116 mL/min/1.73sq m Chronic Kidney Disease: <60 mL/min/1.73sq m Kidney failure: <15 mL/min/1.73sq m eGFR calculated using average adult body mass. Additional eGFR calculator available at: http://www.[employer]/multiple_crcl_2012.htm Performed By: #### C P, HCG, CBC #### [facility] [address] [place] [address] Oil Speculator: Luis A Peng MD #### HIVCMB, PHEP #### [place] [id number] [place], [place] [id number] Oil Speculator: Alvino Davila MD Albumin [Mass/Vol] 3.4 g/dL Low 3.5-5.2 [facility] Comment on above: Performed By: #### C P, HCG, CBC #### [facility] [address] [place] [address] Oil Speculator: LuisA Peng MD #### HIVCMB, PHEP #### [place] [id number] [place], [place] [phone] Oil Speculator: Alvino Davila MD Albumin/Globulin [Mass ratio] 1.1 {ratio} Normal 1.0-2.5 [facility] Comment on above: Performed By: #### C P, HCG, CBC #### [facility] [address] [place] [address] [place] [address] Oil Speculator: Luis A Peng MD #### HIVCMB, PHEP #### [address] [id number] Oil Speculator: Alvino Davila MD Alkaline Phos 130 U/L High 35-104 [facility] [facility] Comment on above: Performed By: #### C P, HCG, CBC #### [address] [place] [phone] ( Oil Speculator: Luis A Peng MD #### HIVCMB, PHEP #### [address] [phone] Oil Speculator: Alvino Davila MD ALT [Catalytic activity/Vol] 33 U/L Normal 5-33 [facility] Comment on above: Performed By: #### C P, HCG, CBC #### [address] [place] [phone] Oil Speculator: Luis A Peng MD #### HIVCMB, PHEP #### [address] [address] Oil Speculator: Alvino Davila MD Anion gap [Moles/Vol] 7 mmol/L Low 9-17 [facility] Comment on above: Performed By: #### C P, HCG, CBC #### [address] [place] [phone] Oil Speculator: Luis A Peng MD #### HIVCMB, PHEP #### [facility] [address] [place] [address] Oil Speculator: Alvino Davila MD AST [Catalytic activity/Vol] 35 U/L High <32 [facility] Comment on above: Performed By: #### C P, HCG, CBC #### [facility] [address] [place], [place] [phone] Oil Speculator: Luis A Peng MD #### HIVCMB, PHEP #### [address] [address] Oil Speculator: Alvino Davila MD Bilirubin Ql (U) 0.16 mg/dL Low 0.3-1.2 [facility] Comment on above: Performed By: #### C P, HCG, CBC #### [facility] [address] [place] [address] Dr. [place], [place] [phone] Oil Speculator: Luis A Peng MD #### HIVCMB, PHEP #### [address] [address] Oil Speculator: Alvino Davila MD BUN/CRE Ratio 14 Normal 9-20 [facility] Comment on above: Performed By: #### C P, HCG, CBC #### [facility] [address] [place], [place] [phone] Oil Speculator: Luis A Peng MD #### HIVCMB, PHEP #### [address] [address] Oil Speculator: Alvino Davila MD Calcium [Mass/Vol] 9.2 mg/dL Normal 8.6-10.4 [facility] Comment on above: Performed By: #### C P, HCG, CBC #### [facility] [address] [place], [place] [phone] Oil Speculator: Luis A Peng MD #### HIVCMB, PHEP #### [address] [address] Oil Speculator: Alvino Davila MD Chloride [Moles/Vol] 99 mmol/L Normal 98-107 [facility] Comment on above: Performed By: #### C P, HCG, CBC #### [facility] [address] [place], [place] [phone] Oil Speculator: Luis A Peng MD #### HIVCMB, PHEP #### [facility] [address] [place] [address] Oil Speculator: Alvino Davila MD CO2 [Moles/Vol] 29 mmol/L Normal 20-31 [facility] Comment on above: Performed By: #### C P, HCG, CBC #### [facility] [address] [place], [place] [phone] Oil Speculator: Luis A Peng MD #### HIVCMB, PHEP #### [address] [address] Oil Speculator: Alvino Davila MD Creatinine [Mass/Vol] 0.63 mg/dL Normal 0.50-0.90 [facility] Comment on above: Performed By: #### C P, HCG, CBC #### [facility] [address] [place] [address] Dr. [place], [place] [phone] Oil Speculator: Luis A Peng MD #### HIVCMB, PHEP #### [facility] [address] [place] [address] Oil Speculator: Alvino Davila MD GFR, Amer >60 Normal >60 [facility] Comment on above: Performed By: #### C P, HCG, CBC #### [facility] [address] [place], [place] [phone] Oil Speculator: Luis A Peng MD #### HIVCMB, PHEP #### [facility] [address] [place] [address] Oil Speculator: Alvino Davila MD GFR,non Amer >60 Normal >60 [facility] Comment on above: Performed By: #### C P, HCG, CBC #### [facility] [address] [place], [place] [phone] Oil Speculator: Luis A Peng MD #### HIVCMB, PHEP #### [address] [phone] Oil Speculator: Alvino Davila MD Glucose [Mass/Vol] 95 mg/dL Normal 70-99 [facility] Comment on above: Performed By: #### C P, HCG, CBC #### [address] [place] [phone] Oil Speculator: Luis A Peng MD #### HIVCMB, PHEP #### [address] [phone] Oil Speculator: Alvino Davila MD Potassium [Moles/Vol] 4.3 mmol/L Normal 3.7-5.3 [facility] Comment on above: Performed By: #### C P, HCG, CBC #### [address] [place] [phone] Oil Speculator: Luis A Peng MD #### HIVCMB, PHEP #### [address] [address] Oil Speculator: Alvino Davila MD Protein [Mass/Vol] 6.5 g/dL Normal 6.4-8.3 [facility] Comment on above: Performed By: #### C P, HCG, CBC #### [address] [place] [address] Oil Speculator: Luis A Peng MD #### HIVCMB, PHEP #### [address] [phone] Oil Speculator: Alvino Davila MD Sodium [Moles/Vol] 135 mmol/L Normal 135-144 [facility] Comment on above: Performed By: #### C P, HCG, CBC #### [facility] [address] [place] [address] Oil Speculator: Luis A Peng MD #### HIVCMB, PHEP #### [place] [id number] [place], [place] [phone] Oil Speculator: Alvino Davila MD Staging: Normal [facility] Comment on above: Result Comment: Stag e 1: Some kidney damage normal GFR Stage 2: Mild kidney damage GFR 60-89 Stage 3: Moderate kidney damage GFR 30-59 Stage 4: Severe kidney damage GFR 15-29 Stage 5: Severe kidney damage GFR <15 ESRD - chronic treatment by dialysis or transplant Performed By: #### C P, HCG, CBC #### [facility] [address] [place] [phone] Oil Speculator: Luis A Peng MD #### HIVCMB, PHEP #### [address] [phone] Oil Speculator: Alvino Davila MD Urea nitrogen [Mass/Vol] 9 mg/dL Normal 6-20 [facility] Comment on above: Performed By: #### C P, HCG, CBC #### [address] [place] [phone] Oil Speculator: Luis A Peng MD #### HIVCMB, PHEP #### [address] [phone] Oil Speculator: Alvino Davila MD Comprehensive Metabolic Pane liu 05-30-2020 Albumin [Mass/Vol] 3.4 g/dL Low 3.5 - 5.2 g/dL [place], [place] Albumin/Globulin [Mass ratio] 1.1 {ratio} [place], [place] ALP [Catalytic activity/Vol] 130 U/L High 35 - 104 U/L [place] ALT [Catalytic activity/Vol] 33 U/L 5 - 33 U/L [place] Anion gap [Moles/Vol] 7 mmol/L Low 9 - 17 mmol/L [place] AST [Catalytic activity/Vol] 35 U/L High <32 [place] Bilirubin Ql (U) 0.16 mg/dL Low 0.3 - 1.2 mg/dL [place], [place] Bun/Cre Ratio 14 [place] Calcium [Mass/Vol] 9.2 mg/dL 8.6 - 10. 4 mg/dL [place] Chloride [Moles/Vol] 99 mmol/L 98 - 107 mmol/L [place] CO2 [Moles/Vol] 29 mmol/L 20 - 31 mmol/L [place] Creatinine [Mass/Vol] 0.63 mg/dL 0.5 - 0.9 mg/d L [place] GFR >60 >60 mL/min [place] GFR Non- >60 >60 mL/min [place] Glucose [Mass/Vol] 95 mg/dL 70 - 99 mg/dL [place] Interpretation and review of laboratory results Abnormal [place] Potassium [Moles/Vol] 4.3 mmol/L 3.7 - 5.3 mmol/L [place] Protein [Mass/Vol] 6.5 g/dL 6.4 - 8.3 g/dL [place] Sodium [Moles/Vol] 135 mmol/L 135 - 144 mmol/L [place] Urea nitrogen [Mass/Vol] 9 mg/dL 6 - 20 mg/dL [place] HCG Qualitative, Serumon hCG Qual Negative NEGATIVE [place] Comment on above: Specimens with hCG l evels near the threshold of the test (25 mIU/mL) may give a negative or indeterminate result. In such cases, another test should be performed with a new specimen in 48-72 hours. If early is suspected clinically in this setting, correlation with quantitative serum b-hCG level is suggested. [facility] has confirmed the use of plasma for this test. This has not been cleared or approved by the U.S. Food and Drug Administration. The FDA has determined that such clearance is not necessary. HCG Screen, Bloodon 05-30-20 20 HCG Qn Negative Normal NEG [facility] Comment on above: Result Comment: Spec imens with hCG levels near the threshold of the test (25 mIU/mL) may give a negative or indeterminate result. In such cases, another test should be performed with a new specimen in 48-72 hours. If early is suspected clinically in this setting, correlation with quantitative serum b-hCG level is suggested. [facility] has confirmed the use of plasma for this test. This has not been cleared or approved by the U.S. Food and Drug Administration. The FDA has determined that such clearance is not necessary. Performed By: #### C P, HCG, CBC #### [address] [place] [address] Oil Speculator: Luis A Peng MD #### HIVCMB, PHEP #### [facility] [address] [place], [place] [phone] Oil Speculator: Alvino Davila MD HIV Ag/Abon 05-30-2020 HIV Ag/Ab NONREACTIVE Normal NR [facility] Comment on above: Result Comment: No l aboratory evidence of HIV infection. If acute HIV infection is suspected, consider testing for HIV-1 RNA. Performed By: #### C P, HCG, CBC #### [address] [place] [address] Oil Speculator: Luis A Peng MD #### HIVCMB, PHEP #### [facility] [address] [place], [place] [phone] Oil Speculator: Alvino Davila MD HIV Screenon 05-30-2020 HIV Ag/Ab NONREACTIVE NONREACTIVE [facility] [place] Comment on above: No laboratory eviden ce of HIV infection. If acute HIV infection is suspected, consider testing for HIV-1 RNA. Hepatitis Acute [facility] 05-30 Hep A Ab,IgM NONREACTIVE Normal NR [facility] Comment on above: Performed By: #### C P, HCG, CBC #### [address] [place] [address] Oil Speculator: Luis A Peng MD #### HIVCMB, PHEP #### [address] [address] Oil Speculator: Alvino Davila MD Hep B Core Ab,IgM NONREACTIVE Normal NR [facility] Comment on above: Performed By: #### C P, HCG, CBC #### [address] [place] [address] Oil Speculator: Luis A Peng MD #### HIVCMB, PHEP #### [address] [address] Oil Speculator: Alvino Davila MD Hep B Surf Ag NONREACTIVE Normal NR [facility] Comment on above: Performed By: #### C P, HCG, CBC #### [address] [place] [address] Oil Speculator: Luis A Peng MD #### HIVCMB, PHEP #### [address] [address] Oil Speculator: Alvino Davila MD Hep C Ab NONREACTIVE Normal [facility] Comment on above: Result Comment: The [...] By: #### C P, HCG, CBC #### [address] [place] [address] Oil Speculator: Luis A Peng MD #### HIVCMB, PHEP #### [address] [address] Oil Speculator: Alvino Davila MD Hepatitis Panel, Acuteon HAV IgM IA Qn (S) NONREACTIVE NONREACTIVE [place] Hep B Core Ab, IgM NONREACTIVE NONREACTIVE [place] Hepatitis B Surface Ag NONREACTIVE NONREACTIVE [place] Hepatitis C Ab NONREACTIVE NONREACTIVE [place], [place] Comment on above: The hepatitis C [...] predicted among non-blacks MDRD (S/P/Bld) [Vol rate/Area] [place], [place] Comment on above: Stage 1: Some [...] body mass. Additional eGFR calculator available at: http://www.[employer]/multiple_crcl_2012.htm [facility]Con 01-01-2020 Erythrocyte distribution width (RBC) [Ratio] 12.5 % Normal 11.8-14.4 [facility] Comment on above: Performed By: #### P HEP, HIVCMB #### [facility] [address] [place] [address] Oil Speculator: Alvino Davila MD #### CP, CBC, HCG #### [facility] [address] [place] [address] Oil Speculator: Luis A Pegn MD Hematocrit (Bld) [Volume fraction] 40.2 % Normal 36.3-47.1 [facility] Comment on above: Performed By: #### P HEP, HIVCMB #### [address] [phone] Oil Speculator: Alvino Davila MD #### CP, CBC, HCG #### [address] [place] [address] Oil Speculator: Luis A Peng MD Hemoglobin (Bld) [Mass/Vol] 13.1 g/dL Normal 11.9-15.1 [facility] Comment on above: Performed By: #### P HEP, HIVCMB #### [address] [phone] Oil Speculator: Alvino Davila MD #### CP, CBC, HCG #### [address] [place] [phone] Oil Speculator: Luis A Peng MD MCH (RBC) [Entitic mass] 28.4 pg Normal 25.2-33.5 [facility] Comment on above: Performed By: #### P HEP, HIVCMB #### [address] [phone] Oil Speculator: Alvino Davila MD #### CP, CBC, HCG #### [address] [place] [phone] Oil Speculator: Luis A Peng MD MCHC (RBC) [Mass/Vol] 32.6 g/dL Normal 28.4-34.8 [facility] Comment on above: Performed By: #### P HEP, HIVCMB #### [address] [phone] Oil Speculator: Alvino Davila MD #### CP, CBC, HCG #### [address] [place] [address] Oil Speculator: Luis A Peng MD MCV (RBC) [Entitic vol] 87.2 fL Normal 82.6-102.9 [facility] Comment on above: Performed By: #### P HEP, HIVCMB #### [address] [address] Oil Speculator: Alvino Davila MD #### CP, CBC, HCG #### [facility] [address] [place] [phone] Oil Speculator: Luis A Peng MD NRBC Automated 0.0 per 100 WBC Normal 0.0 [facility] Comment on above: Performed By: #### P HEP, HIVCMB #### [address] [address] Oil Speculator: Alvino Davila MD #### CP, CBC, HCG #### [address] [place] [phone] Oil Speculator: Luis A Peng MD Platelet mean volume (Bld) [Entitic vol] 11.2 fL Normal 8.1-13.5 [facility] Comment on above: Performed By: #### P HEP, HIVCMB #### [address] [phone] Oil Speculator: Alvino Davila MD #### CP, CBC, HCG #### [address] [place] [phone] Oil Speculator: Luis A Peng MD Platelets (Bld) [#/Vol] 241 10*3/uL Normal 138-453 [facility] Comment on above: Performed By: #### P HEP, HIVCMB #### [address] [phone] Oil Speculator: Alvino Davila MD #### CP, CBC, HCG #### [facility] [address] [place] [phone] Oil Speculator: Luis A Peng MD RBC (Bld) [#/Vol] 4.61 10*6/uL Normal 3.95-5.11 [facility] Comment on above: Performed By: #### P HEP, HIVCMB #### [facility] [address] [place], [place] [phone] Oil Speculator: Alvino Davila MD #### CP, CBC, HCG #### [facility] [address] [place] [address] [place] [address] Oil Speculator: Luis A Peng MD WBC (Bld) [#/Vol] 9.0 10*3/uL Normal 3.5-11.3 [facility] Comment on above: Performed By: #### P HEP, HIVCMB #### [place] [id number] [place], [place] [phone] Oil Speculator: Alvino Davila MD #### CP, CBC, HCG #### [address] [place] [address] Oil Speculator: Luis A Peng MD Erythrocyte distribution width (RBC) [Ratio] 12.5 % 11.8 - 14.4 % [place] Hematocrit (Bld) [Volume fraction] 40.2 % 36.3 - 47.1 % [place] Hemoglobin (Bld) [Mass/Vol] 13.1 g/dL 11.9 - 15.1 g/dL [place] MCH (RBC) [Entitic mass] 28.4 pg 25.2 - 33.5 pg [place] MCHC (RBC) [Mass/Vol] 32.6 g/dL 28.4 - 34.8 g/dL [place] MCV (RBC) [Entitic vol] 87.2 fL 82.6 - 102.9 fL [place] Platelet mean volume (Bld) [Entitic vol] 11.2 fL 8.1 - 13.5 fL [place] Platelets (Bld) [#/Vol] 241 10*3/uL [place] RBC (Bld) [#/Vol] 4.61 10*6/uL 3.95 - 5.1 1 m/uL [place] WBC (Bld) [#/Vol] 0.0 10*3/uL 0.0 per 100 WBC M [place] WBC (Bld) [#/Vol] 9.0 10*3/uL [place] Comp Metabolic Profon 2019 (cont.) Normal [facility] Comment on above: Result Comment: Aver age GFR for 20-29 years old: 116 mL/min/1.73sq m Chronic Kidney Disease: <60 mL/min/1.73sq m Kidney failure: <15 mL/min/1.73sq m eGFR calculated using average adult body mass. Additional eGFR calculator available at: http://www.[employer]/multiple_crcl_2012.htm Performed By: #### P HEP, HIVCMB #### [place] [id number] Oil Speculator: Alvino Davila MD #### CP, CBC, HCG #### [facility] [address] [place] [address] [place] [address] Oil Speculator: Luis A Peng MD Albumin [Mass/Vol] 4.2 g/dL Normal 3.5-5.2 [facility] Comment on above: Performed By: #### P HEP, HIVCMB #### [address] [phone] Oil Speculator: Alvino Davila MD #### CP, CBC, HCG #### [facility] [address] [place] [address] [place] [address] Oil Speculator: Luis A Peng MD Albumin/Globulin [Mass ratio] 1.7 {ratio} Normal 1.0-2.5 [facility] Comment on above: Performed By: #### P HEP, HIVCMB #### [address] [id number] Oil Speculator: Alvino Davila MD #### CP, CBC, HCG #### [facility] [address] [place], [place] [phone] Oil Speculator: Luis A Peng MD Alkaline Phos 69 U/L Normal 35-104 [facility] Comment on above: Performed By: #### P HEP, HIVCMB #### [address] [address] Oil Speculator: Alvino Davila MD #### CP, CBC, HCG #### [address] [place], [place] [phone] Oil Speculator: Luis A Peng MD ALT [Catalytic activity/Vol] 78 U/L High 5-33 [facility] Comment on above: Performed By: #### P HEP, HIVCMB #### [address] [address] Oil Speculator: Alvino Davila MD #### CP, CBC, HCG #### [address] [place], [place] [phone] Oil Speculator: Luis A Peng MD Anion gap [Moles/Vol] 9 mmol/L Normal 9-17 [facility] Comment on above: Performed By: #### P HEP, HIVCMB #### [address] [address] Oil Speculator: Alvino Davila MD #### CP, CBC, HCG #### [address] [place], [place] [phone] Oil Speculator: Luis A Peng MD AST [Catalytic activity/Vol] 44 U/L High <32 [facility] Comment on above: Performed By: #### P HEP, HIVCMB #### [address] [address] Oil Speculator: Alvino Davila MD #### CP, CBC, HCG #### [address] [place] [phone] Oil Speculator: Luis A Peng MD Bilirubin Ql (U) 0.15 mg/dL Low 0.3-1.2 [facility] Comment on above: Performed By: #### P HEP, HIVCMB #### [address] [phone] Oil Speculator: Alvino Davila MD #### CP, CBC, HCG #### [address] [place] [phone] Oil Speculator: Luis A Peng MD BUN/CRE Ratio 20 Normal 9-20 [facility] Comment on above: Performed By: #### P HEP, HIVCMB #### [address] [address] Oil Speculator: Alvino Davila MD #### LAURA, CBC, HCG #### [address] [place] [phone] Oil Speculator: Luis A Peng MD Calcium [Mass/Vol] 9.4 mg/dL Normal 8.6-10.4 [facility] Comment on above: Performed By: #### P HEP, HIVCMB #### [address] [address] Oil Speculator: Alvino Davila MD #### CP, CBC, HCG #### [address] [place] [phone] Oil Speculator: Luis A Peng MD Chloride [Moles/Vol] 97 mmol/L Low 98-107 [facility] Comment on above: Performed By: #### P HEP, HIVCMB #### [address] [address] Oil Speculator: Alvino Davila MD #### CP, CBC, HCG #### [address] [place] [address] Oil Speculator: Luis A Peng MD CO2 [Moles/Vol] 28 mmol/L Normal 20-31 [facility] Comment on above: Performed By: #### P HEP, HIVCMB #### [facility] [address] [place] [address] Oil Speculator: Alvino Davila MD #### CP, CBC, HCG #### [facility] [address] [place] [address] Oil Speculator: Luis A Peng MD Creatinine [Mass/Vol] 0.55 mg/dL Normal 0.50-0.90 [facility] Comment on above: Performed By: #### P HEP, HIVCMB #### [address] [phone] Oil Speculator: Alvino Davila MD #### CP, CBC, HCG #### [facility] [address] [place] [address] Oil Speculator: Luis A Peng MD GFR, Amer >60 Normal >60 [facility] Comment on above: Performed By: #### P HEP, HIVCMB #### [facility] [address] [place] [address] Oil Speculator: Alvino Davila MD #### CP, CBC, HCG #### [facility] [address] [place], [place] [phone] Oil Speculator: Luis A Peng MD GFR,non Amer >60 Normal >60 [facility] Comment on above: Performed By: #### P HEP, HIVCMB #### [address] [address] Oil Speculator: Alvino Davila MD #### CP, CBC, HCG #### [facility] [address] [place], [place] [phone] Oil Speculator: Luis A Peng MD Glucose [Mass/Vol] 85 mg/dL Normal 70-99 [facility] Comment on above: Performed By: #### P HEP, HIVCMB #### [address] [address] Oil Speculator: Alvino Davila MD #### CP, CBC, HCG #### [facility] [address] [place] [address] Dr. [place], [place] [phone] Oil Speculator: Luis A Peng MD Potassium [Moles/Vol] 4.3 mmol/L Normal 3.7-5.3 [facility] Comment on above: Performed By: #### P HEP, HIVCMB #### [address] [phone] Oil Speculator: Alvino Davila MD #### CP, CBC, HCG #### [facility] [address] [place] [address] Dr. [place] [phone] Oil Speculator: Luis A Peng MD Protein [Mass/Vol] 6.7 g/dL Normal 6.4-8.3 [facility] Comment on above: Performed By: #### P HEP, HIVCMB #### [address] [address] Oil Speculator: Alvino Davila MD #### CP, CBC, HCG #### [facility] [address] [place] [address] Dr. [place], [place] [phone] Oil Speculator: Luis A Peng MD Sodium [Moles/Vol] 134 mmol/L Low 135-144 [facility] Comment on above: Performed By: #### P HEP, HIVCMB #### [address] [address] Oil Speculator: Alvino Davila MD #### CP, CBC, HCG #### [address] [place], [place] [phone] Oil Speculator: Luis A Peng MD Staging: Normal [facility] Comment on above: Result Comment: Stag e 1: Some kidney damage normal GFR Stage 2: Mild kidney damage GFR 60-89 Stage 3: Moderate kidney damage GFR 30-59 Stage 4: Severe kidney damage GFR 15-29 Stage 5: Severe kidney damage GFR <15 ESRD - chronic treatment by dialysis or transplant Performed By: #### P HEP, HIVCMB #### [facility] [address] [place], [place] [phone] Oil Speculator: Alvino Davila MD #### CP, CBC, HCG #### [facility] [address] [place] [address] Oil Speculator: Luis A Peng MD Urea nitrogen [Mass/Vol] 11 mg/dL Normal 6-20 [facility] Comment on above: Performed By: #### P HEP, HIVCMB #### [facility] [address] [place], [place] [phone] Oil Speculator: Alvino Davila MD #### CP, CBC, HCG #### [facility] [address] [place] [address] Oil Speculator: Luis A Peng MD Comprehensive Metabolic Pane [facility] 01-01-2020 Albumin [Mass/Vol] 4.2 g/dL 3.5 - 5.2 g/dL [place] Albumin/Globulin [Mass ratio] 1.7 {ratio} [place] ALP [Catalytic activity/Vol] 69 U/L 35 - 104 U/L [place] ALT [Catalytic activity/Vol] 78 U/L High 5 - 33 U/L [place] Anion gap [Moles/Vol] 9 mmol/L 9 - 17 mmol/L [place] AST [Catalytic activity/Vol] 44 U/L High <32 [place] Bilirubin Ql (U) 0.15 mg/dL Low 0.3 - 1.2 mg/dL [place] Bun/Cre Ratio 20 [place] Calcium [Mass/Vol] 9.4 mg/dL 8.6 - 10. 4 mg/dL [place] Chloride [Moles/Vol] 97 mmol/L Low 98 - 107 mmol/L [place] CO2 [Moles/Vol] 28 mmol/L 20 - 31 mmol/L [place] Creatinine [Mass/Vol] 0.55 mg/dL 0.5 - 0.9 mg/d L [place] GFR >60 >60 mL/min [place] GFR Non- >60 >60 mL/min [place] Glucose [Mass/Vol] 85 mg/dL 70 - 99 mg/dL [place] Interpretation and review of laboratory results Abnormal [place] Potassium [Moles/Vol] 4.3 mmol/L 3.7 - 5.3 mmol/L [place] Protein [Mass/Vol] 6.7 g/dL 6.4 - 8.3 g/dL [place] Sodium [Moles/Vol] 134 mmol/L Low 135 - 144 mmol/L [place] Urea nitrogen [Mass/Vol] 11 mg/dL 6 - 20 mg/dL [place] HCG Qualitative, Serumon hCG Qual Negative NEGATIVE [place] Comment on above: Specimens with hCG l evels near the threshold of the test (25 mIU/mL) may give a negative or indeterminate result. In such cases, another test should be performed with a new specimen in 48-72 hours. If early is suspected clinically in this setting, correlation with quantitative serum b-hCG level is suggested. [facility] has confirmed the use of plasma for this test. This has not been cleared or approved by the U.S. Food and Drug Administration. The FDA has determined that such clearance is not necessary. HCG Screen, Bloodon 01-01-20 20 HCG Qn Negative Normal NEG [facility] Comment on above: Result Comment: Spec imens with hCG levels near the threshold of the test (25 mIU/mL) may give a negative or indeterminate result. In such cases, another test should be performed with a new specimen in 48-72 hours. If early is suspected clinically in this setting, correlation with quantitative serum b-hCG level is suggested. [employer] has confirmed the use of plasma for this test. This has not been cleared or approved by the U.S. Food and Drug Administration. The FDA has determined that such clearance is not necessary. Performed By: #### P HEP, HIVCMB #### [id number] [place] [address] Oil Speculator: Alvino Davila MD #### CP, CBC, HCG #### [address] [place] [address] Oil Speculator: Luis A Peng MD HIV Ag/Abon 01-01-2020 HIV Ag/Ab NONREACTIVE Normal [facility] Comment on above: Result Comment: No l aboratory evidence of HIV infection. If acute HIV infection is suspected, consider testing for HIV-1 RNA. Performed By: #### P HEP, HIVCMB #### [address] [address] Oil Speculator: Alvino Davila MD #### CP, CBC, HCG #### [address] [place] [place] [address] Oil Speculator: Luis A Peng MD HIV Screenon 01-01-2020 HIV Ag/Ab NONREACTIVE NONREACTIVE [place], [place] Comment on above: No laboratory eviden ce of HIV infection. If acute HIV infection is suspected, consider testing for HIV-1 RNA. Hepatitis Acute [facility] 12-31 Hep A Ab,IgM NONREACTIVE Normal NR [facility] Comment on above: Performed By: #### P HEP, HIVCMB #### [address] [address] Oil Speculator: Alvino Davila MD #### CP, CBC, HCG #### [address] [place] [place] [address] Oil Speculator: Luis A Peng MD Hep B Core Ab,IgM NONREACTIVE Normal [facility] Comment on above: Performed By: #### P HEP, HIVCMB #### [address] [address] Oil Speculator: Alvino Davila MD #### CP, CBC, HCG #### [facility] [address] [place] [address] [address] [place], [place] [id number] Oil Speculator: Luis A Peng MD Hep B Surf Ag NONREACTIVE Normal [facility] Comment on above: Performed By: #### P HEP, HIVCMB #### [id number] [place], [place] [id number] Oil Speculator: Alvino Davila MD #### CP, CBC, HCG #### [facility] [address] [place] [address] [address] [place], [place] [id number] Oil Speculator: Luis A Peng MD Hep C Ab NONREACTIVE Normal [facility] Comment on above: Result Comment: The [...] Performed By: #### P HEP, HIVCMB #### [address] [id number] [employer] Speculator: Alvino Davila MD #### CP, CBC, HCG #### [address] [place] [address] Oil Speculator: Luis A Peng MD Hepatitis Panel, [facility] HAV IgM IA Qn (S) NONREACTIVE NONREACTIVE [place], [place] Hep B Core Ab, IgM NONREACTIVE NONREACTIVE [place], [place] Hepatitis B Surface Ag NONREACTIVE NONREACTIVE [place], [place] Hepatitis C Ab NONREACTIVE NONREACTIVE [place], [place] Comment on above: The hepatitis C [...] predicted among non-blacks MDRD (S/P/Bld) [Vol rate/Area] [place], [place] Comment on above: Stage 1: Some [...] body mass. Additional eGFR calculator available at: http://[email or web address]_crcl_2012.htm Vital Signs Date Time Vital Sign Value Performing Clinician Faci lity 05-30-2025 09:30-0400 Body height 165.1 cm Nohemy Hernandez MD Work Phone: [facility] 05-30-2025 09:30-0400 Body mass index (BMI) [Ratio] 27.09 kg/m2 Nohemy Hernandez MD Work Phone: [facility] 05-30-2025 09:30-0400 Body weight 73.85 kg Nohemy Hernandez MD Work Phone: [facility] 05-30-2025 09:30-0400 Diastolic blood pressure 73 mm[Hg] Nohemy Hernandez MD Work Phone: [facility] 05-30-2025 09:30-0400 Heart rate 83 /min Nohemy Hernandez MD Work Phone: [facility] 05-30-2025 09:30-0400 Systolic blood pressure 110 mm[Hg] Nohemy Hernandez MD Work Phone: [facility] 05-30-2025 08:57-0400 Body height 165.1 cm Nohemy Hernandez MD Work Phone: [facility] 05-16-2025 10:59-0400 Body mass index (BMI) [Ratio] 26.46 kg/m2 Mee Yary DO Work Phone: [facility] 05-16-2025 10:59-0400 Body weight 72.12 kg Mee Yary DO Work Phone: [facility] 05-16-2025 10:59-0400 Diastolic blood pressure 70 mm[Hg] Mee Yary DO Work Phone: [facility] 05-16-2025 10:59-0400 Systolic blood pressure 110 mm[Hg] Mee Yary DO Work Phone: [facility] 05-02-2025 15:42-0400 Body mass index (BMI) [Ratio] 26.26 kg/m2 Mee Yary DO Work Phone: [facility] 05-02-2025 15:42-0400 Body weight 71.58 kg Mee Yary DO Work Phone: [facility] 05-02-2025 15:42-0400 Diastolic blood pressure 70 mm[Hg] Mee Yary DO Work Phone: [facility] 05-02-2025 15:42-0400 Systolic blood pressure 104 mm[Hg] Mee Yary DO Work Phone: [facility] 04-18-2025 13:35-0400 Body mass index (BMI) [Ratio] 25.79 kg/m2 Mee Yary DO Work Phone: [facility] 04-18-2025 13:35-0400 Body weight 70.31 kg Mee Yary DO Work Phone: [facility] 04-18-2025 13:35-0400 Diastolic blood pressure 64 mm[Hg] Mee Yary DO Work Phone: [facility] 04-18-2025 13:35-0400 Systolic blood pressure 112 mm[Hg] Mee Yary DO Work Phone: [facility] 04-06-2025 11:47-0400 Body mass index (BMI) [Ratio] 25.76 kg/m2 [facility] 04-06-2025 11:47-0400 Body weight 70.22 kg [facility] Encounters Encounter Date Encounter Type Care Provider Facility Start: 05-30-2025 End: 05-30-2025 Chart abstracting Nohemy Hernandez MD Work Phone: [facility] Start: 05-30-2025 End: 05-30-2025 Office outpatient new 45 minutes Nohemy Hernandez MD Work Phone: [facility] Comment on above: History of placental abruption (Primary Dx); Hepatitis C virus infection without hepatic coma, unspecified chronicity Start: 05-30-2025 End: 05-30-2025 ambulatory MEE R [facility] Start: 05-21-2025 End: 05-21-2025 Clinisync Result Encounter Mee Yary DO Work Phone: [facility] External Department Unsolicited Start: 05-21-2025 End: 05-21-2025 Clinisync Result Encounter Mee Yary DO Work Phone: [facility] External Department Unsolicited Start: 05-16-2025 End: 05-16-2025 Bamboo flowsheet Mee Yary DO Work Phone: [facility] Start: 05-16-2025 End: 05-16-2025 Bamboo flowsheet Mee Yary DO Work Phone: [facility] Start: 05-16-2025 End: 05-16-2025 Office outpatient visit 15 minutes Mee Yary DO Work Phone: [facility] Comment on above: 29 weeks gestation o f ([facility]); Third trimester ([facility]); Request for sterilization; H/O opioid abuse ([facility] [place]); History of placental abruption Start: 05-16-2025 End: 05-16-2025 ambulatory EME YARY Not Available Start: 05-02-2025 End: 05-02-2025 ambulatory MEE YARY Not Available Start: 05-02-2025 End: 05-02-2025 Office outpatient visit 15 minutes Mee Yary DO Work Phone: [facility] Comment on above: Second trimester pre gnancy ([facility]); 27 weeks gestation of ([facility]); Request for sterilization; H/O opioid abuse ([facility] [place] [place]); History of placental abruption Start: 05-02-2025 End: 05-02-2025 Bamboo flowsheet Mee Yary DO Work Phone: [facility] Start: 05-02-2025 End: 05-02-2025 Bamboo [...] Comment on above: Second trimester pre gnancy ([facility]); 25 weeks gestation of ([facility]) Start: 04-09-2025 End: 04-09-2025 Clinisync Result Encounter [...] 03-27-2021 End: 03-28-2021 ambulatory Rody Monk MD Facility:[facility] Start: 12-06-2020 End: 12-07-2020 [facility] Start: 12-06-2020 End: 12-06-2020 Subsequent hospital visit by physician LEXA Ramos Start: 11-11-2020 End: 11-12-2020 [facility] Start: 05-30-2020 End: 05-31-2020 [facility] encounter [facility] Start: 05-30-2020 End: 05-30-2020 Subsequent hospital visit by physician [facility] Start: 01-01-2020 End: 01-02-2020 Patient encounter procedure MALINI FRITZ [facility] Start: 01-01-2020 End: 01-01-2020 Subsequent hospital visit by physician [facility] Start: 09-20-2018 End: 09-21-2018 Patient encounter procedure Sidney Nava Facility:[id number] Procedures Date Procedure Procedure Detail Performing Clinician Start: 05-21-2025 Antibody screen Nohemy pizano MD Work Phone: Start: 05-21-2025 Drug scrn 1+ class nonchromo Not In System Ref Prov Start: 05-21-2025 Hemoglobin glycosylated a1c Nohemy Hernandez MD Work Phone: Start: 05-21-2025 Hepatitis c antibody No t In System Ref Prov Start: 05-21-2025 HIV 1&2 AB/AG SCREEN (P24 AG) Not In System Ref Prov Start: 05-21-2025 Iaad ia hepatitis b surface antigen Not In System Ref Prov Start: 05-21-2025 SYPHILIS TOTAL(UNKNO WN SYPHILIS STATUS) Not In System Ref Prov Start: 05-21-2025 TYPE AND SCREEN Not In System Ref Prov Start: 05-21-2025 [facility] DRUG SCREEN RAPI D (URINE) Mee Yary DO Work Phone: Start: 05-16-2025 Urnls dip stick/tabl et rgnt non-auto w/o micrscp Mee Yary DO Work Phone: Start: 04-18-2025 Urnls dip stick/tabl et rgnt non-auto w/o micrscp Mee Yary DO Work Phone: Start: 04-09-2025 US OB ANATOMY Paradise MORROW Work Phone: Start: 04-09-2025 US OB CERVICAL LENGTH A edilma MORROW Work Phone: Start: 04-06-2025 Urnls dip [...] Start: 01-01-2020 Gonadotropin chorion ic qualitative MALINI FRITZ Start: 01-01-2020 Acute hepatitis panel E estela Fritz Work Phone: Start: 01-01-2020 Antibody hiv-1&hiv-2 single result Malini Fritz Work Phone: Start: 01-01-2020 Blood count complete automated Malini Fritz Work Phone: Start: 01-01-2020 Comprehensive metabo lic panel Malini Fritz Work Phone: Start: 01-01-2020 Gonadotropin chorion ic qualitative Malini Fritz Work Phone: Plan of Treatment Date Care Activity Detail Author Start: 05-30-2026 Adult BMI Screening Adult BMI Screen ing [facility] Start: 05-30-2026 Tobacco Screening Tobacco Screening [facility] Start: 07-05-2025 End: 07-05-2025 Patient encounter procedure [facility] Start: 07-02-2025 Influenza vaccination N [facility] Start: 05-30-2025 End: 05-30-2026 US MFM with or without consult US MFM with or without consult Imaging Routine History of placental abruption Hepatitis C virus infection without hepatic coma, unspecified chronicity Expected: 05/30/2025, Expires: 05/30/2026 [facility] Comment on above: Expected: 05/30/2025 , Expires: 05/30/2026 Start: 05-30-2025 End: 05-30-2025 Patient encounter procedure [facility] Start: 05-30-2025 End: 05-30-2025 Professional / ancillary services management 05/30/2025 10:30 AM EDT Ancillary Procedure [facility] [address] [place] [address] [facility] Start: 05-30-2025 Subsequent hospital visit by physician 05/30/2025 9:15 AM EDT Hospital Encounter [facility] [address] [place] [address] [facility] Start: 05-16-2025 End: 11-16-2025 US biophysical profile w non stress test US biophysical profile w non stress test Imaging Routine H/O opioid abuse ([facility] [place] [place]) History of placental abruption Expected: 05/16/2025 (Approximate), Expires: 11/16/2025 [facility] Work Phone: Comment on above: Expected: 05/16/2025 (Approximate), Expires: 11/16/2025 Start: 05-16-2025 End: 05-16-2025 Patient encounter procedure [facility] Comment on above: Arrived Start: 05-02-2025 End: 05-02-2025 Patient encounter procedure 05/02/2025 3:20 PM EDT Routine [facility] [address] [place] [id number] Mee Pringle, DO [address] [place] [address] [facility] Start: 04-18-2025 End: 08-18-2025 US for US OB follow up transabdominal approach Imaging Routine Second trimester ([facility]) Expected: 04/18/2025, Expires: 08/18/2025 [facility] Work Phone: Comment on above: Expected: 04/18/2025 , Expires: 08/18/2025 Start: 04-18-2025 End: 04-18-2025 Patient encounter procedure 04/18/2025 1:30 PM EDT Routine [facility] [address] [place] [id number] Mee Pringle, DO [address] [place] [address] [facility] Start: 04-06-2025 End: 04-06-2026 ABO/Rh ABO/Rh Lab Routine Missed menses , unspecified gestational age ([facility]) Expected: 04/06/2025 (Approximate), Expires: 04/06/2026 [facility] Comment on above: Expected: 04/06/2025 (Approximate), Expires: 04/06/2026 Start: 04-06-2025 End: 04-06-2026 Blood type and Indirect antibody screen panel - Blood Type and screen Lab Routine Missed menses , unspecified gestational age ([facility]) Expected: 04/06/2025 (Approximate), Expires: 04/06/2026 [facility] Work Phone: Comment on above: Expected: 04/06/2025 (Approximate), Expires: 04/06/2026 Start: 04-06-2025 End: 04-06-2026 CBC panel - Blood by Automated count CBC Lab Routine Diabetes mellitus screening Expected: 04/06/2025 (Approximate), Expires: 04/06/2026 [facility] Comment on above: Expected: 04/06/2025 (Approximate), Expires: 04/06/2026 Start: 04-06-2025 End: 04-06-2026 Drugs of abuse panel - Urine by Screen method Rapid drug screen, urine Lab Routine , unspecified gestational age ([facility]) Encounter for supervision of normal first in first trimester ([facility]) Expected: 04/06/2025 (Approximate), Expires: 04/06/2026 [facility] Comment on above: Expected: 04/06/2025 (Approximate), Expires: 04/06/2026 Start: 04-06-2025 End: 04-06-2026 Measurement of glucose 1 hour after glucose challenge for glucose tolerance test Glucose tolerance, 1 hour Lab Routine Diabetes mellitus screening Expected: 04/06/2025 (Approximate), Expires: 04/06/2026 [facility] Comment on above: Expected: 04/06/2025 (Approximate), Expires: 04/06/2026 Start: 04-06-2025 End: 07-07-2025 US for US OB 14+ weeks anatomy scan Imaging Routine Screening, , for anatomic survey ([facility]) Expected: 04/06/2025, Expires: 07/07/2025 [facility] Comment on above: Expected: 04/06/2025 , Expires: 07/07/2025 Start: 07-02-2024 COVID-19 Vaccine ( season) COVID-19 Vaccine ( season) [facility] Start: 07-02-2024 Influenza vaccination Influenza Vacc ine (#1) [facility] Start: 2022 Screening for malign ant neoplasm of cervix [facility] Start: 07-02-2020 Influenza vaccination Flu vaccine (# 1) [place], [place] Start: 2013 Screening for malign ant neoplasm of cervix Pap Smear [facility] Start: 2011 DTaP,Tdap and Td Vaccines (1 - Tdap) DTaP,Tdap and Td Vaccines (1 - Tdap) [facility] Start: 2010 Adult BMI Follow Up Plan Adult BMI Follow Up Plan [facility] Start: 2010 Adult BMI Screening Adult BMI Screen ing [facility] Start: 2004 Depression Screening Depression Scre ening [facility] Start: 2004 Tobacco Screening Tobacco Screening [facility] Start: 2003 DTaP,Tdap and Td Vaccines (6 - Tdap) DTaP,Tdap and Td Vaccines (6 - Tdap) [facility] End: 05-30-2026 Anti cariolipin AB IgG IgA IgM Anti cariolipin AB IgG IgA IgM Lab Routine History of placental abruption 1 Occurrences starting 05/30/2025 until 05/30/2026 [facility] Comment on above: 1 Occurrences starti ng 05/30/2025 until 05/30/2026 End: 05-30-2026 aPTT in Blood by Coagulation assay APTT Lab Routine History of placental abruption Hepatitis C virus infection without hepatic coma, unspecified chronicity 1 Occurrences starting 05/30/2025 until 05/30/2026 [facility] Comment on above: 1 Occurrences starti ng 05/30/2025 until 05/30/2026 Bacteria identified in Urine by Culture Urine culture Microbiology Routine Missed menses Ordered: 04/06/2025 [facility] Comment on above: Ordered: 04/06/2025 End: 05-30-2026 Beta-2 glycoprotein antibodies Beta-2 glycoprotein antibodies Lab Routine History of placental abruption 1 Occurrences starting 05/30/2025 until 05/30/2026 [facility] Comment on above: 1 Occurrences starti ng 05/30/2025 until 05/30/2026 CBC W Auto Different ial panel - Blood CBC and differential Lab Routine Missed menses , unspecified gestational age ([facility]) Ordered: 04/06/2025 [facility] Comment on above: Ordered: 04/06/2025 End: 05-30-2026 Comprehensive metabolic 2000 panel - Serum or Plasma Comprehensive metabolic panel Lab Routine History of placental abruption Hepatitis C virus infection without hepatic coma, unspecified chronicity 1 Occurrences starting 05/30/2025 until 05/30/2026 [facility] Work Phone: Comment on above: 1 Occurrences starti ng 05/30/2025 until 05/30/2026 End: 05-30-2026 DRVVT DRVVT Lab Routine History of placental abruption 1 Occurrences starting 05/30/2025 until 05/30/2026 [facility] Comment on above: 1 Occurrences starti ng 05/30/2025 until 05/30/2026 Hemoglobin A1c/Hemoglobin.total in Blood Hemoglobin A1c Lab Routine Missed menses , unspecified gestational age ([facility]) Ordered: 04/06/2025 [facility] Comment on above: Ordered: 04/06/2025 Hepatitis B virus surface Ag [Presence] in Serum or Plasma by Immunoassay Hepatitis B surface antigen Lab Routine Missed menses , unspecified gestational age ([facility]) Ordered: 04/06/2025 [facility] Comment on above: Ordered: 04/06/2025 Hepatitis C virus Ab [Presence] in Serum or Plasma by Immunoassay Hepatitis C antibody Lab Routine Missed menses , unspecified gestational age ([facility]) Ordered: 04/06/2025 [facility] Comment on above: Ordered: 04/06/2025 HIV-1/HIV-2 antigen/antibody combination immunoassay HIV-1 and HIV-2 antibodies Lab Routine Missed menses , unspecified gestational age ([facility]) Ordered: 04/06/2025 [facility] Comment on above: Ordered: 04/06/2025 End: 05-30-2026 Protime & INR Protime & INR Lab Routine History of placental abruption Hepatitis C virus infection without hepatic coma, unspecified chronicity 1 Occurrences starting 05/30/2025 until 05/30/2026 [facility] Comment on above: 1 Occurrences starti ng 05/30/2025 until 05/30/2026 Reagin Ab [Presence] in Serum by RPR RPR Lab Routine Missed menses , unspecified gestational age ([facility]) Ordered: 04/06/2025 [facility] Comment on above: Ordered: 04/06/2025 Rubella antibody, IgG Rubella an tibody, IgG Lab Routine Missed menses , unspecified gestational age ([facility]) Ordered: 04/06/2025 [facility] Comment on above: Ordered: 04/06/2025 Payers Date Payer Category Payer Medicaid (Managed Care) [employer] [id number] 2021 Unknown 2019 Unknown [facility] xxxxxxxxxxxx 2019-Present [phone] [place] [id number] xxxxxxxxxxxx [id number] 2019 Unknown [facility] [employer] [id number] 2019-Present [phone] [place] [id number] 2019 Medicaid HMO [employer] [id number] 1992 Unknown [id number] 2.16.840.1.394242.3.579.2. 173 1992 Unknown [id number] 2.16.840.1.561881.3.579.2. 173 1992 Unknown [id number] 2.16.840.1.035032.3.579.2. 173 1992 Unknown [id number] 2.16.840.1.658057.3.579.2. 173 1992 Unknown [id number] 2.16.840.1.071422.3.579.2. 196 1992 Unknown [id number] 2.16.840.1.672300.3.579.2. 593 1992 Unknown [id number] 2.16.840.1.719082.3.579.2. 593 1992 Unknown [id number] 2.16.840.1.285283.3.579.2. 593 1992 Unknown [id number] 2.16.840.1.025304.3.579.2. 593 1992 Unknown [id number] 2.16.840.1.221796.3.579.2. 593 1992 Unknown [id number] 2.16.840.1.536333.3.579.2. 593 1992 Unknown [id number] 2.16.840.1.707169.3.579.2. 1259 1992 Unknown [id number] 2.16.840.1.655546.3.579.2. 1259 1992 Unknown [id number] 2.16.840.1.550045.3.579.2. 1259 1992 Unknown [id number] 2.16.840.1.102476.3.579.2. 1259 1992 Unknown [id number] 2.16.840.1.967801.3.579.2. 1286 1992 Unknown [id number] 2.16.840.1.078993.3.579.2. 1286 1959 Unknown [id number] Social History Date Type Detail Facility Tobacco smoking stat [facility] Unknown if ever smoked [place], [place] Start: 1992 Sex Assigned At Not on file [place] Start: 04-23-2023 End: 05-30-2025 Tobacco smoking status NHIS Smokes tobacco daily [facility] History of tobacco use Cigarette Smoker [facility] Start: 04-23-2023 End: 05-30-2025 Tobacco use and exposure Smokeless tobacco non-user [facility] Start: 04-23-2023 End: 05-16-2025 Alcoholic beverage intake Lifetime non-drinker (finding) [facility] Start: 04-23-2023 Tobacco Comment Smokes 6-10 ci garettes per day [facility] Start: 12-12-2020 End: 04-06-2025 Gender identity Not on file [facility] Start: 12-12-2020 End: 04-06-2025 History of Social function [facility] Start: 11-04-2024 [facility] Start: 05-30-2025 Alcoholic beverage intake [facility] Start: 06-06-2015 Sex [facility] (finding[facility] Start: 05-30-2025 Tobacco smoking stat [facility] Ex-smoker [facility] History of tobacco use Current smoker [facility] Clinical Notes 04-06-2025 to 05-30-2025 Paradise Raya LPN - 05/30/2025 10:30 AM Douglas Hernandez MD - 05/30/2025 10:30 AM Deangelo Aguilar LPN - 05/16/2025 11:00 AM Deangelo Aguilar LPN - 05/02/2025 3:20 PM EDT Note Date & Type Note Facility 05-30-2025 History of Present illness Narrative Headache/epigastric pain/blurry vision/swelling? Headaches that are relieved with Tylenol Cramping/contractions? No Spotting/vaginal bleeding? No Loss or gush of fluid like your water may have broken? No Do you have cats at home? Outside cats Do you change the litter box (reason: risk of toxoplasmosis)? No Genetic testing done this here or other office? No Have you been seen here at [facility] in a previous ? No Recent ER visits or hospitalizations? No Bring blood sugar log or meter with you today? (Please bring them with you for every visit at [facility]) N/A Flu vaccine (Sep-December)? N/A Any concerns that you would like me to mention to the provider today? No REASON FOR CONSULTATION: hepatitis C, seroquel use, history of placental abruption , suboxone use HISTORY OF PRESENT ILLNESS: Camrelita Cason is a pleasant 34 y.o. at 31w4d due on Estimated Date of Delivery: 07/28/25 . Currently the patient [...] taking: Reported on 05/30/2025), Disp: , Rfl: magnesium oxide (MAGOX) 400 [...] kg (162 lb 12.8 oz) BMI 27.09 kg/m DISCUSSION: Hepatitis C Hepatitis C is one of the most common and potentially serious infections that can occur in women and it affect 1-4% of women in the [facility]. I reviewed with the patient that Hepatitis [...] with antiviral medications and who achieve a sustained virologic response (SVR), only 5% develop HCC within 10 year.. The patient was counseled that Hepatitis C infection is not associated with an increased risk of structural anomalies. Hepatitis C has been associated with higher risk for of gestational diabetes, intrahepatic cholestasis and increased risk for , growth restriction and low birthweight, admission to the intensive care unit. The overall risk of Vsmklypg-Gz-Ieqcu-Transmission (MTCT) during is approximately 4-8%. If the Hepatitis C viral load (VL) is undetectable near the time of delivery, the MTCT rate is reduced to approximately 1% or less. We explained the maternal antibodies cross the placenta and can be detected in the blood for up to 18-24 months, therefore this cannot be used as a test to diagnose the with Hepatitis C infection until after 18 months. The [place] [employer] and CDC recommend screening [...] weeks for which she was delivered by . The recurrence risk after 1 abruption is 3-15%. [...] period.I then discussed that should be continued with target ultrasound followed by serial growth ultrasounds every four weeks and delivery should occur at term. Early term induction and section should be reserved for routine obstetrical cases. ,Nubain or partial antagonists are not recommended during labor or in . These medications will cause immediate withdrawal symptoms. When additional pain [...] which approximately is present in more than 50% of the newborns. Unfortunately, there is no direct [...] is recommended. 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 NICU consultation for education regarding abstinence syndrome 8. Obtain operative report from 2015. Carmelita would prefer to have a repeat Caesarean delivery. This can be scheduled for 39 weeks or sooner if clinically indicated TIME OF CONSULTATION: We spent 45 minutes with the patient, >50% in discussion and counseling, coordination of care which was [id number]. documented in this encounter [email or web address] 05-16-2025 History of Present illness Narrative Reason for Appointment: Patient ID: [...] (HCC) BMI 28.0-28.9,adult Drug abuse, opioid type ([facility] [place] [place]) Encounter for follow-up Encounter for gynecological examination (general) (routine) without abnormal findings Labial cyst Pain pelvic HISTORY PAST MEDICAL HISTORY SOCIAL HISTORY Past Medical History: Diagnosis Date Abscess of labia Bipolar disorder (HCC) BMI 28.0-28.9,adult Drug abuse, opioid type ([facility] [place] [place]) Encounter for follow-up Encounter for gynecological examination [...] nursing note reviewed. Exam conducted with a cv/cvn cv tsc system operator present. Vitals: Estimated body mass index is 26.46 kg/m as calculated from the following: Height as of 12/09/22: 5' 5 . Weight as of this encounter: 159 lb. BP: 110/70 No LMP recorded. Patient is . ASSESSMENT & PLAN ICD-10-CM 1. 29 weeks gestation of ([facility]) Z3A.29 POCT urinalysis dipstick manually resulted 2. Third trimester ([facility]) Z34.93 POCT urinalysis dipstick manually resulted 3. Request for sterilization Z30.2 4. H/O opioid abuse ([facility] [place] [place]) F11.11 5. History of placental abruption Z87.59 [...] Mee Pringle DO documented in this encounter [facility] 05-02-2025 History of Present illness Narrative Reason for Appointment: Patient ID: [...] (HCC) BMI 28.0-28.9,adult Drug abuse, opioid type ([facility] [place] [place]) Encounter for follow-up Encounter for gynecological examination (general) (routine) without abnormal findings Labial cyst Pain pelvic HISTORY PAST MEDICAL HISTORY SOCIAL HISTORY Past Medical History: Diagnosis Date Abscess of labia Bipolar disorder (HCC) BMI 28.0-28.9,adult Drug abuse, opioid type ([facility] [place] [place]) Encounter for follow-up Encounter for gynecological examination [...] nursing note reviewed. Exam conducted with a cv/cvn cv tsc system operator present. Vitals: Estimated body mass index is 26.26 kg/m as calculated from the following: Height as of 12/09/22: 5' 5 . Weight as of this encounter: 157 lb 12.8 oz. BP: 104/70 No LMP recorded. Patient is . ASSESSMENT & PLAN ICD-10-CM 1. Second trimester ([facility]) Z34.92 2. 27 weeks gestation of ([facility]) Z3A.27 3. Request for sterilization Z30.2 4. H/O opioid abuse ([facility] [place] [place]) F11.11 5. History of placental abruption Z87.59 [...] Mee Pringle DO documented in this encounter [facility] 04-18-2025 History of Present illness Narrative Reason for Appointment: Patient ID: [...] (HCC) BMI 28.0-28.9,adult Drug abuse, opioid type ([facility] [place] [place]) Encounter for follow-up Encounter for gynecological examination (general) (routine) without abnormal findings Labial cyst Pain pelvic HISTORY PAST MEDICAL HISTORY SOCIAL HISTORY Past Medical History: Diagnosis Date Abscess of labia Bipolar disorder (HCC) BMI 28.0-28.9,adult Drug abuse, opioid type ([facility] [place] [place]) Encounter for follow-up Encounter for gynecological examination [...] nursing note reviewed. Exam conducted with a cv/cvn cv tsc system operator present. Vitals: Estimated body mass index is 25.79 kg/m as calculated from the following: Height as of 12/09/22: 5' 5 . Weight as of this encounter: 155 lb. BP: 112/64 No LMP recorded. Patient is . ASSESSMENT & PLAN ICD-10-CM 1. Second trimester ([facility]) Z34.92 POCT urinalysis dipstick manually resulted 2. 25 weeks gestation of ([facility]) Z3A.25 Return OB: Patient presents today for [...] Mee Pringle DO documented in this encounter [facility] 04-06-2025 History of Present illness Narrative Reason for Appointment: Patient ID: [...] Abscess of labia Bipolar disorder ([facility]) BMI 28.0-28.9,adult Drug abuse, opioid type ([facility] [place] [place]) Encounter for follow-up Encounter for gynecological examination [...] dipstick manually resulted , unspecified gestational age ([facility]) - Type and screen; Future - ABO/Rh; Future - CBC and differential - Hemoglobin A1c - RPR - Rubella antibody, IgG - Hepatitis B surface antigen - Hepatitis C antibody - HIV-1 and HIV-2 antibodies - Rapid drug screen, urine; Future Encounter for supervision of normal first in first trimester ([facility]) - Rapid drug screen, urine; Future Screening, , for anatomic survey ([facility]) - OB 14+ weeks anatomy scan; Future Diabetes mellitus screening - CBC; Future - Glucose tolerance, 1 hour; Future headache in second trimester ([facility]) - magnesium oxide (Mag-Ox) 400 MG tablet; [...] or undercooked meat, and stay away from [facility]. Patient has also been advised to not [...] Olive Leon LPN documented in this encounter [facility] Healthcare Evaluation note Diagnosis Missed menses , unspecified gestational age ([facility] Encounter for supervision of normal first in first trimester ([facility]) Screening, , for anatomic survey ([facility]) Encounter for anatomic survey Diabetes mellitus screening Screening for diabetes mellitus headache in second trimester ([facility]) documented in this encounter [facility] HealthcareEvaluation note* Diagnosis Second trimester ([facility]) state, incidental 25 weeks gestation of ([facility]) [facility] Diagnosis Second trimester ([facility]) state, incidental 27 weeks gestation of ([facility]) Request for sterilization H/O opioid abuse ([facility] [place] [place]) History of placental abruption [facility] Diagnosis 29 weeks gestation of ([facility]) Third trimester ([facility]) state, incidental Request for sterilization H/O opioid abuse ([facility]) History of placental abruption documented [facility] Diagnosis History of placental abruption- Primary Hepatitis C virus infection without hepatic coma, unspecified chronicity [facility] filedocumented in this encounter [facility] filedocumented in this encounter [facility] Summary Purpose Family History No Family History Records FoundNo Family History Records FoundNo Family History Records FoundNo Family History Records FoundNo Family History Records FoundNo Family History Records Found Advance Directives No Advanced Directives Records FoundDocuments on File Type Date Recorded Patient Service Desk Manager Expl anation Advance Directives and Living Will Power of Acoustical Tile Drill Press Operator Documents on File Type Date Recorded Patient Service Desk Manager Expl anation ACP-Advance Directive ACP-Power of Acoustical Tile Drill Press Operator Additional Source Comments INFORMATION SOURCE (unrecogn ized section and content) DATE CREATED AUTHOR 10/10/2018 [facility] DATE CREATED AUTHOR AUTHOR'S ORGANIZ ATION 12/06/2020 [facility] DATE CREATED AUTHOR AUTHOR'S ORGANIZ ATION 03/29/2021 [facility] DATE CREATED AUTHOR AUTHOR'S ORGANIZ ATION 12/10/2022 [facility] DATE CREATED AUTHOR AUTHOR'S ORGANIZ ATION 05/20/[address] 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 [facility]. provides no warranty or guarantee of the accuracy or completeness of information in this document.
[2025-06-05 09:37] VITALS: BP 113/62; PULSE 81
== END 2025-06-05 10:17 | disposition home or self-care (01) ==
LOC: US 08:54 → FBC 09:08
PROVIDERS: PCP Nurse Practitioner Family; Visit Provider Obstetrics & Gynecology
DX: O26.893 Other specified pregnancy related conditions, third trimester (principal); Z87.59 Personal history of other complications of pregnancy, childbirth and the puerperium; F11.11 Opioid abuse, in remission
CPT/HCPCS: 76818

== ENCOUNTER 2025-06-08 10:00 | Outpatient (OUT) | payer OTHER, SELFPAY ==
[2025-06-08 10:06] VITALS: BP 115/67; PULSE 89
== END 2025-06-08 11:12 | disposition home or self-care (01) ==
LOC: FBCO 10:00 → FBC 10:03
PROVIDERS: PCP Nurse Practitioner Family; Visit Provider Obstetrics & Gynecology
DX: O35.8XX0 Maternal care for other (suspected) fetal abnormality and damage, not applicable or unspecified (principal); Z13.1 Encounter for screening for diabetes mellitus; Z87.59 Personal history of other complications of pregnancy, childbirth and the puerperium; B19.20 Unspecified viral hepatitis C without hepatic coma
CPT/HCPCS: 36415; 59025; 80053; 83036; 85610; 85613; 85730; 86146; 86147

== ENCOUNTER 2025-06-08 11:10 | Outpatient (OUT) | payer OTHER, SELFPAY | END 2025-06-08 11:11 | disposition home or self-care (01) | PROVIDERS: PCP Nurse Practitioner Family; Visit Provider Obstetrics & Gynecology | DX: Z13.1 Encounter for screening for diabetes mellitus (principal) | CPT/HCPCS: 36415; 80053; 83036; 85610; 85613; 85730; 86146; 86147 ==

== ENCOUNTER 2025-06-08 11:16 | Outpatient (OUT) | payer OTHER, SELFPAY ==
--- OUTSIDE RECORDS SUMMARY | 2019-12-25 20:00 | XMS_ITS | Continuity of Care Document ---
Author Organization [facility] Address [address] [place] [address] Phone Care Team Providers Care Senior Ecologist Name Role Phone Pavlock DO, Max Unavailable [...] drug services- Acute Deto x Acute Detox Automatic Print Developer Acute Detox Automatic Print Developer DRUG TEST PRSMV DIR OPT OBS URINE TEST Acute Detox Automatic Print Developer Advance Directives Directive Yes / No Effective Date File Name No Information Encounters Encounter Description Practice Location Reason(s) For Visit Diagnoses Date Provider Providers Copied on Encounter [facility], [address] [place] [address], [id number] , tel: [phone] [facility] Detox Opioid dependence with withdrawalAlcohol dependence with withdrawal, uncomplicated 0 Pavlock DO Max. [address] [place] [address], [id number] , [place]. tel: [phone] [facility], [address] [place] [address], [id number] , tel: [phone] [facility] Detox Opioid dependence with withdrawal 0 Pavlock DO Max. [address] [place] [address], [id number] , [place]. tel: [phone] [facility], [address] [place], [place], [id number] , [place] tel: [phone] [facility] Detox Opioid dependence with withdrawal Feb-2 0 Pavlock DO Max. [address] [place], [place], [id number] , [place]. tel: [phone] [facility], [address] [place], [place], [id number] , [place] tel: [phone] [facility] Detox alcohol and heroin dependence (chief complaint) Opioid dependence with withdrawalAlcohol dependence with withdrawal, uncomplicated Feb-2 0 [place]ina Ayala. [address] [place], [place], [id number] , [place]. tel: [phone] [facility], [address] [place] [address], [id number] , [place] tel: [phone] [facility] Detox Opioid dependence with withdrawal Feb-2 0 Pavlock DO Max. [address] [place], [place], [id number] , [place]. tel: [phone] [facility], [address] [place] [address], [id number] , [place] tel: [phone] [facility] Detox Opioid dependence with withdrawalEncounter for test, result negative b-2 0 Pavlock DO Max. [address] [place], [place], [id number] , [place]. tel: [phone] Family History Family Member Type Diagnosis Age At Onset No Information Payers Payer name Insurance type Covered constitution party ID Homar sellers(s) [facility] [id number] Social History Type Description Quantity Date Captured [...]
--- OUTSIDE RECORDS SUMMARY | 2025-03-02 05:30 | XMS_ITS ---
Author Organization The [facility] in [place] Address [address] [place] [address] Care Team Providers Care Aircraft Powerplant Repairer Name Role Phone Farideh Smith Primary Care Provider [phone] Allergies Allergen (clinical drug ingredient) Drug/Non Drug [...] No Points 0 Interpretation Negative Vital Signs Weight 148.2 lbs 03/02/2025 Height 65 in 03/02/2025 Blood pressure systolic 102 mm Hg 03/02/20 25 Blood pressure diastolic 64 mm Hg 025 BMI 24.66 kg/m2 03/02/2025 Encounters Encounter Location Date Provider Diagnosis [facility] [address] [place] [address] 03/02/2025 Farideh Smith [facility] physical exam Z02.0 Assessments Encounter Date [...] Carmelita YANEZ NDOB:[birth year] (34 yo F)Acc No.[id number]:03/02/2025 Progress Note Patient: Carmelita HO Provider: Nzaario Smith ([facility]), ART INSTRUCTOR :1990 A ge:34 Y S ex:Female Date:03/02/2025 Address:[address] [place], [place] [id number] Check In:09:23 AM ESTCheck O ut:09:46 AM [...] * Electronically signed by Carla Smith , SEAFOOD CLERK, PHOTOGRAPHER'S MODEL.ART INSTRUCTOR.[id number] on 03/05/2025 at 11:45 AM EDT Sign off status: Completed Visit Status: C HK (Check Out) true * Provider: Nazario Smith ([facility]), ART INSTRUCTOR Date: 0 03/02/2025 Generated for Hillary medina/Juliana/eTransmitting on: 0 06/08/2025 11:21 AM EDT History and Physical Notes * [...]
--- OUTSIDE RECORDS SUMMARY | 2025-04-04 07:31 | XMS_ITS ---
Author Organization The [facility] in [place] Address [address] [place] [address] Care Team Providers Care Pit Recorder Name Role Phone Farideh Smith Primary Care [...] Active Encounters Encounter Location Date Provider Diagnosis [facility] [address] [place] [address] 04/04/2025 Farideh Smith Anxiety F41.9 Assessments Encounter [...] Carmelita YANEZ NDOB:[birth year] (34 yo F)Acc No.[id number]:04/04/2025 Patient: Carmelita HO Jennifer :1990 A ge:34 Y S ex:Female Address:[address] [place] [phone] * Refills Refill Gabapentin Capsule, 100 MG, [...] Date: Generated for Hillary medina/Juliana/Ceciliaitting on: 0 06/08/2025 11:21 AM EDT
--- OUTSIDE RECORDS SUMMARY | 2025-04-18 13:30 | XMS_ITS | Encounter Summary ---
Author Organization [facility] Address [address] [place] [address] Care Team Providers Care Central Processing Tech Name Role Phone Unavailable Primary Care Provider Unavailabl e Reason for Visit * Reason Comments Routine Visit Encounter Details Date Type Department Care Team (Late st Contact Info) Description 04/18/2025 1:30 PM EDT Routine [facility] [address] [place] [address] Tony Pringle DO [address] [place], [id number] Second trimester ([facility]); 25 weeks gestation of ([facility]); Abnormal ultrasonic finding on screening of mother, antepartum Social History Tobacco Use Types Packs/Day Years [...] Sign Reading Time Taken Comments Blood Pressure 112/64 04/18/2025 1:35 PM EDT Pulse - - Temperature - - Respiratory Rate - - Oxygen Saturation - - Inhaled Oxygen Concentration - - Weight 70.3 kg (155 lb) 04/18/2025 1:35 PM EDT Height - - Body Mass Index 25.79 12/09/2022 12:00 PM EST documented in this encounter Progress Notes * Kathleen Rob NP - 04/18/2025 1:30 PM EDT Reason for Appointment: Patient ID: Carmelita Yanez is a 34 y.o. female who presents for Routine Visit Patient presents today for Return OB appointment. MEDICATIONS Current Outpatient Medications Medication Instructions gabapentin (Neurontin) 100 MG capsule as directed for 9 days magnesium oxide (MAG-OX) 400 mg, Oral, Daily QUEtiapine (SEROQUEL) 50 mg, Nightly Suboxone 8-2 MG SL film 1 Film, Daily ALLERGIES Allergies Allergen Reactions Penicillin G Other Reaction(s): childhood/unknown, Unknown PROBLEMS Active Ambulatory Problems Diagnosis Date Noted No Active Ambulatory Problems Resolved Ambulatory Problems Diagnosis Date Noted No Resolved Ambulatory Problems Past Medical History: Diagnosis Date Abscess of labia Bipolar disorder (HCC) BMI 28.0-28.9,adult Drug abuse, opioid type ([facility] Encounter for follow-up Encounter for gynecological examination (general) (routine) without abnormal findings Labial cyst Pain pelvic HISTORY PAST MEDICAL HISTORY SOCIAL HISTORY Past Medical History: Diagnosis Date Abscess of labia Bipolar disorder (HCC) BMI 28.0-28.9,adult Drug abuse, opioid type ([facility] Encounter for follow-up Encounter for gynecological examination (general) (routine) without abnormal findings Labial cyst Pain pelvic Social History Tobacco Use Smoking status: Every Day Types: Cigarettes Smokeless tobacco: Never Tobacco comments: Smokes 6-10 cigarettes per day Substance Use Topics Alcohol use: Never Drug use: Not Currently FAMILY HISTORY Family History Problem Relation Name Age of Onset Mental illness Mother Cancer Mother Hypertension Mother Hypertension Father Mental illness Father Cancer Father Mental illness Brother Mental illness Maternal Grandmother Mental illness Paternal Grandmother SURGICAL HISTORY Past Surgical History: Procedure Laterality Date SECTION, LOW TRANSVERSE 07/2015 DILATION AND CURETTAGE 11/2007 REVIEW OF SYSTEMS Review of Systems: Review of Systems Constitutional: Negative. HENT: Negative. Eyes: Negative. Respiratory: Negative. Cardiovascular: Negative. Gastrointestinal: Negative. Genitourinary: Negative. Musculoskeletal: Negative. Skin: Negative. Neurological: Negative. All other systems reviewed and are negative. Hematological: Negative. Endocrine: Negative. Allergic/Immunologic: Negative. OBJECTIVE Objective: Physical Exam Constitutional: Appearance: Normal appearance. She is well-developed. Cardiovascular: Rate and Rhythm: Normal rate and regular rhythm. Pulmonary: Effort: Pulmonary effort is normal. Breath sounds: Normal breath sounds. Abdominal: General: Bowel sounds are normal. There is no distension. Palpations: Abdomen is soft. Tenderness: There is no abdominal tenderness. There is no guarding or rebound. Musculoskeletal: General: No swelling. Normal range of motion. Right lower leg: No edema. Left lower leg: No edema. Neurological: Mental Status: She is alert and oriented to person, place, and time. Skin: General: Skin is warm and dry. Psychiatric: Mood and Affect: Mood normal. Behavior: Behavior normal. Vitals and nursing note reviewed. Exam conducted with a pattern checker present. Vitals: Estimated body mass index is 25.79 kg/m?? as calculated from the following: Height as of 12/09/22: 5' 5 . Weight as of this encounter: 155 lb. BP: 112/64 No LMP recorded. Patient is . ASSESSMENT & PLAN ICD-10-CM 1. Second trimester ([facility]) Z34.92 POCT urinalysis dipstick manually resulted 2. 25 weeks gestation of ([facility]) Z3A.25 Return OB: Patient presents today for a routine obstetrics appointment. Patient is currently 25w4d . Patient states she is doing well but has complaints of being tired due to current . Patient has verbalizes frequent movement. labor precautions was discussed/given and patient was instructed to perform kick counts three times a day. Orders Placed This Encounter Procedures POCT urinalysis dipstick manually resulted Follow Up: Patient is to return to office in 2 week for routine OB appointment. Incidental placental band; Will repeat ultrasound in 4 weeks. Documented by Kathleen Rob NP on behalf of: Tony Pringle DO documented in this encounter Plan of Treatment Upcoming Encounters Date Type Department Care Team (Late st Contact Info) Description 06/20/2025 2:30 PM EDT Routine [facility] [address] [place] [phone] Tony Pringle DO [address] [place] [address] Scheduled Orders Name Type Priority Associated Diagnoses Orde r Schedule US OB follow up transabdominal approach Imaging Routine Second trimester ([facility]) Abnormal ultrasonic finding on screening of mother, antepartum Expected: 04/18/2025, Expires: 08/18/2025 documented as of this encounter Procedures Procedure Name Priority Date/Time Associated Diagnosis Comments POCT URINALYSIS DIPSTICK Routine 04/18/2025 1:44 PM EDT Second trimester ([facility]) documented in this encounter Results * (ABNORMAL) POCT urinalysis dipstick manually resulted (04/18/2025 1:44 PM EDT) Color, UA Yellow Clarity, UA Clear Glucose, UA Negative Negative - 2000(110) ++++ mg/dL Bilirubin, UA Negative Negative - 4(70) +++ mg/dL Ketones, UA Negative Negative - 160(16) ++++ mg/dL Spec Grav, UA 1.015 1 - 1.03 Blood, UA Negative Negative - 50 Amador/mcL pH, UA 7.5 5 - 9 Protein, UA Negative Negative - 2000(20) ++++ mg/dL Urobilinogen, UA 0.2 0.2 - 12 mg/dL Leukocytes, UA Positive Negative - 500+++ Camille/mcL Nitrite, UA Negative Negative - Positive Urine 04/18/2025 1:44 PM EDT Tony Pringle DO POINT OF CARE TEST ENTER/EDIT OR DERABLES Final Result documented in this encounter Visit Diagnoses Diagnosis Second trimester ([facility]) state, incidental 25 weeks gestation of ([facility]) Abnormal ultrasonic finding on screening of mother, antepartum documented in this encounter
--- OUTSIDE RECORDS SUMMARY | 2025-05-16 11:00 | XMS_ITS | Encounter Summary ---
Author Organization [facility] Address [address] [place] [address] Care Team Providers Care Temporary Administrative Assistant Name Role Phone Unavailable Primary Care Provider Unavailabl e Reason for Visit * Reason Comments Routine Visit Encounter Details Date Type Department Care Team (Late st Contact Info) Description 05/16/2025 11:00 AM EDT Routine [facility] [address] [place] [address] Tony Pringle DO [address] [place], [facility]11 29 weeks gestation of ([facility]); Third trimester ([facility]); Request for sterilization; H/O opioid abuse ([facility]); History of placental abruption; Abnormal ultrasonic finding [...] this encounter Progress Notes * Raine Aguilar, BRAZER HELPER INDUCTION - 05/16/2025 11:00 AM EDT Reason for [...] (HCC) BMI 28.0-28.9,adult Drug abuse, opioid type ([facility]) Encounter for follow-up Encounter for gynecological examination (general) (routine) without abnormal findings Labial cyst Pain pelvic HISTORY PAST MEDICAL HISTORY SOCIAL HISTORY Past Medical History: Diagnosis Date Abscess of labia Bipolar disorder (HCC) BMI 28.0-28.9,adult Drug abuse, opioid type ([facility]) Encounter for follow-up Encounter for gynecological examination [...] nursing note reviewed. Exam conducted with a school traffic supervisor present. Vitals: Estimated body mass index is 26.46 kg/m?? as calculated from the following: Height as of 12/09/22: 5' 5 . Weight as of this encounter: 159 lb. BP: 110/70 No LMP recorded. Patient is . ASSESSMENT & PLAN ICD-10-CM 1. 29 weeks gestation of ([facility]) Z3A.29 POCT urinalysis dipstick manually resulted 2. Third trimester ([facility]) Z34.93 POCT urinalysis dipstick manually resulted 3. Request for sterilization Z30.2 4. H/O opioid abuse ([facility]) F11.11 5. History of placental abruption Z87.59 [...] EDT Routine [facility] [address] [place] [address] Tony Pringle DO [address] [place], [place] [address] [place] [address] Scheduled Orders Name Type Priority Associated Diagnoses Orde r Schedule US biophysical profile w non stress test Imaging Routine H/O opioid abuse ([facility]) History of placental abruption Expected: 05/16/2025 (Approximate), Expires: 11/16/2025 documented as of this encounter Procedures Procedure Name Priority Date/Time Associated Diagnosis Comments POCT URINALYSIS DIPSTICK Routine 05/16/2025 11:03 AM EDT 29 weeks gestation of ([facility]) Third trimester ([facility]) documented in this encounter Results * (ABNORMAL) [...] Urine 05/16/2025 11:0 3 AM EDT Result [facility] Tony Pringle DO POINT OF CARE TEST ENTER/EDIT OR DERABLES Final Result documented in this encounter Visit Diagnoses Diagnosis 29 weeks gestation of ([facility]) Third trimester ([facility]) state, incidental Request for sterilization H/O opioid abuse (CMS-HCC) History of placental abruption Abnormal ultrasonic finding on screening of mother, antepartum documented in this encounter
--- OUTSIDE RECORDS SUMMARY | 2025-05-30 09:15 | XMS_ITS | Encounter Summary ---
Author Organization [employer] Address [id number] [address] [place] [address] Care Team Providers Care Securities Trader Name Role Phone No Pcp, No Pcp Primary Care Provider Unavailabl e Reason for Referral * Diagnostic Imaging (Routine) - Pending Review Specialty Diagnoses / Procedures Referred By Contac t Referred To Contact Maternal and Medicine Diagnoses Screening, , for anatomic survey Procedures US MFM with or without consult Mee Pringle DO [address] [place] [address] Phone: tel: fax: Maternal- Medicine at [facility] [address] [place] [address] Phone: tel: fax: Referral ID Status Reason Start Date Expiration Date V isits Requested Visits Authorized [id number] Pending Review 05/30/2025 05/30/2026 1 1 Reason for Visit * Diagnostic Imaging (Routine) - Pending Review Specialty Diagnoses / Procedures Referred By Contac t Referred To Contact Maternal and Medicine Diagnoses Screening, , for anatomic survey Procedures US MFM with or without consult Mee Pringle DO [address] [place] [address] Phone: tel: fax: Maternal- Medicine at [facility] [address] [place] [address] Phone: tel: fax: Referral ID Status Reason Start Date Expiration Date V isits Requested Visits Authorized [id number] Pending Review 05/30/2025 05/30/2026 1 1 Encounter Details Date Type Department Care Team (Latest Contact Info) Description 05/30/2025 9:15 AM EDT - 05/30/2025 11:59 PM EDT Hospital Encounter [facility] - [facility] US Imaging [address] [place] [phone] Screening, , for anatomic survey Discharge Disposition: [...] Info) Description 07/05/2025 1:00 PM EDT Appointment [facility] US Imaging [address] [place] [phone] 07/05/2025 2:30 PM EDT Office Visit Maternal- Medicine at [facility] [address] [place] [phone] Tasia Dowd MD [address] [facility] 1st Floor [place], [place] [phone] documented as of this encounter Procedures Procedure Name Priority Date/Time Associated Diagnosis Comments [facility] COMPREHENSIVE ANATOMIC SURVEY Routine 05/30/2025 10:52 AM EDT Screening, , for anatomic survey documented in this encounter Results * [facility] COMPREHENSIVE ANATOMIC SURVEY (05/30/2025 10:52 AM EDT) Anatomical Region Laterality Modality OB-SOFA INSPECTOR Ultrasound 05/30/2025 9:40 AM EDT Narrative 05/30/2025 12:58 PM EDT NAME: YOAV MUNOZ : 1990 SEX: F Accession Number: [id number] ORDERING PHYSICIAN: MEE PRINGLE REFERRING PHYSICIAN: MEE PRINGLE Coding ----- --------- Procedures [id number]: Ultrasound, uterus, real time with image documentation, and maternal evaluation plus detailed anatomic examination, transabdominal approach;single or first gestation Indication ----- --------- Screening for Anatomic Survey, Hepatitis C in , Malformation of placenta- complete circumvallate,History of prior with delivery- placental abruption, Previous History ----- --------- OB History 4. Para 3 [id number] Maternal Assessment ----- --------- Physical Exam Initial [...] EFW (oz) 14 oz EFW by: Hadlock ([id number]) Extended Tibia 48.3 mm 29w 1d 6% [employer] Tutor 2.3 mm CM 9.6 mm 95% Nicolaides [...] view. RVOT view. LVOT view. 3-vessel view. 5-pptgeo-stestbt view. Situs. Bicaval view. Interventricular septum. Great [...] placenta noted. Recommendations ----- --------- Please see [facility] documentation from today. The patient is [...] MUNOZ : 1990 SEX: F Accession Number: [id number] ORDERING PHYSICIAN: MEE PRINGLE REFERRING PHYSICIAN: MEE PRINGLE Coding ----- --------- Procedures [id number]: Ultrasound, uterus, real time with imagedocumentation, and maternal evaluation plus detailed anatomic examination, transabdominalapproach;single or first gestation Indication ----- --------- Screening for Anatomic Survey, Hepatitis C in , Malformation ofplacenta- complete circumvallate,History of prior with delivery- placental abruption, Previous History ----- --------- OB History 4. Para 3 [id number] Maternal Assessment ----- --------- Physical Exam Initial [...] EFW (oz) 14 oz EFW by: Hadlock ([id number]) Extended Tibia 48.3 mm 29w 1d 6% [employer] Tutor 2.3 mm CM 9.6 mm 95% Nicolaides [...] 4-chamber view. RVOT view. LVOT view. 3-vessel view.0-ruilaf-msocabi view. Situs. Bicaval view. Interventricular septum. Great [...] placenta noted. Recommendations ----- --------- Please see [facility] documentation from today. The patient is scheduled in four week(s) to complete anatomic survey. Subsequent follow up or other follow up as clinically determined byprimary OB provider unless otherwise specified by [facility]. Results forwarded to ordering provider so they can follow up with thepatient as necessary. us Mee Pringle DO [facility] [place] ORDERABLES Final Result documented in this encounter Visit Diagnoses Diagnosis Screening, , for anatomic survey Encounter for anatomic survey documented in this encounter Care Teams Securities Trader Relationship Specialty Start Date End Date No Pcp, [place] [address] PCP - General Family Medicine 04/27/20 documented as of this encounter
--- OUTSIDE RECORDS SUMMARY | 2025-05-30 09:28 | XMS_ITS ---
Author Organization [facility] in [place] Address [address] [place] [address] Care Team Providers Care Mail Machine Operator Name Role Phone Farideh Smith Primary Care Provider REASON FOR VISIT Gabapentin Medications Medication SIG (Take, Route, Frequency, Duration) Notes Start Date End Date Status Ibuprofen 800 MG 1 tablet with food or milk as needed Orally every 8 hrs as needed for 14 days 11/15/2023 Unknown tiZANidine HCl 4 MG 1 tablet as needed Orally BID for 14 days muscle spasms 04/15/2023 Unknown Suboxone 8-2 MG 1 1/4 film under the tongue and allow to dissolve Sublingual once daily for 28 days Unknown QUEtiapine Fumarate 50 MG 1 tablet Oral at bedtime for 30 days Unknown Nicotine 10 MG/ML 2 sprays (1 spray in each nostril) as needed Nasally 24 time(s) a day for 30 days Initial: 1 to 2 doses/hour (each dose [2 sprays, one in each nostril] contains 1 mg of nicotine); do not exceed more than 5 doses (10 sprays) per hour [maximum: 40 mg/day (80 sprays)] 10/20/2024 Unknown ALPRAZolam 0.25 MG 1 tablet Orally once a day prn for 30 days 06/19/2024 Unknown Gabapentin 100 MG as directed for 9 days take 3 capsules TID for 3 days than 2 capsules TID for 2 days than 1 capsule TID for 2 days than 1 capsule daily for 2 days than stop med Unknown Encounters Encounter Location Date Provider Diagnosis [facility] [address] [place] [address] 05/30/2025 Farideh Smith Plan Of Treatment No Information Progress Notes * Carmelita YANEZ NDOB:[birth year] (34 yo F)Acc No.[id number]:05/30/2025 Patient: Carmelita HO :1990 A ge:34 Y S ex:Female Address:[address] [place] [phone] Subjective: * Chief Complaints: * G abapentin * Medical History: * Surgical History: * Hospitalization/Major Diagno stic Procedure: * Medications: U nknownALPRAZolam 0.25 MG Tablet 1 tablet Orally once a day prn Gabapentin 100 MG Capsule as directed , Notes to Pharmacist: take 3 capsules TID for 3 days than 2 capsules TID for 2 days than 1 capsule TID for 2 days than 1 capsule daily for 2 days than stop medIbuprofen 800 MG Tablet 1 tablet with food or milk as needed Orally every 8 hrs as needed Nicotine 10 MG/ML Solution 2 sprays (1 spray in each nostril) as needed Nasally 24 time(s) a day , Notes to Pharmacist: Initial: 1 to 2 doses/hour (each dose [2 sprays, one in each nostril] contains 1 mg of nicotine); do not exceed more than 5 doses (10 sprays) per hour [maximum: 40 mg/day (80 sprays)]QUEtiapine Fumarate 50 MG Tablet 1 tablet Oral at bedtime Suboxone(Buprenorphine HCl- Naloxone HCl) 8-2 MG Film 1 1/4 film under the tongue and allow to dissolve Sublingual once daily tiZANidine HCl 4 MG Tablet 1 tablet as needed Orally BID , Notes to Pharmacist: muscle spasmsUnknown ALPRAZolam 0.25 MG Tablet 1 tablet Orally once a day prn Unknown Gabapentin 100 MG Capsule as directed , Notes to Pharmacist: take 3 capsules TID for 3 days than 2 capsules TID for 2 days than 1 capsule TID for 2 days than 1 capsule daily for 2 days than stop medUnknown Ibuprofen 800 MG Tablet 1 tablet with food or milk as needed Orally every 8 hrs as needed Unknown Nicotine 10 MG/ML Solution 2 sprays (1 spray in each nostril) as needed Nasally 24 time(s) a day , Notes to Pharmacist: Initial: 1 to 2 doses/hour (each dose [2 sprays, one in each nostril] contains 1 mg of nicotine); do not exceed more than 5 doses (10 sprays) per hour [maximum: 40 mg/day (80 sprays)]Unknown QUEtiapine Fumarate 50 MG Tablet 1 tablet Oral at bedtime Unknown Suboxone(Buprenorphine HCl-Naloxone HCl) 8-2 MG Film 1 1/4 film under the tongue and allow to dissolve Sublingual once daily Unknown tiZANidine HCl 4 MG Tablet 1 tablet as needed Orally BID , Notes to Pharmacist: muscle spasms Objective: * Vitals: * Physical Examination: Assessment: Plan: * Treatment: * Procedure Codes: * true * Date: Generated for Hillary medina/Juliana/Columba on: 0 06/08/2025 11:21 AM EDT
--- OUTSIDE RECORDS SUMMARY | 2025-06-07 09:40 | XMS_ITS | Encounter Summary ---
Author Organization [facility] Address [address] [place] [address] Care Team Providers Care Rn Neurology Name Role Phone Unavailable Primary Care Provider Unavailabl e Reason for Visit * Reason Comments Routine Visit Encounter Details Date Type Department Care Team (Late st Contact Info) Description 06/07/2025 9:40 AM EDT Routine [facility] [address] [place] [address] Tony Pringle DO [address] [place], [facility]11 Third trimester ([facility]); 32 weeks gestation of ([facility]); H/O opioid abuse [place] History of placental abruption; Diabetes mellitus screening [...] (HCC) BMI 28.0-28.9,adult Drug abuse, opioid type ([facility] Encounter for follow-up Encounter for gynecological examination (general) (routine) without abnormal findings Labial cyst Pain pelvic HISTORY PAST MEDICAL HISTORY SOCIAL HISTORY Past Medical History: Diagnosis Date Abscess of labia Bipolar disorder (HCC) BMI 28.0-28.9,adult Drug abuse, opioid type ([facility] Encounter for follow-up Encounter for gynecological examination [...] nursing note reviewed. Exam conducted with a email campaign specialist present. Vitals: Estimated body mass index is 27.46 kg/m?? as calculated from the following: Height as of 12/09/22: 5' 5 . Weight as of this encounter: 165 lb. BP: 118/74 No LMP recorded. Patient is . ASSESSMENT & PLAN ICD-10-CM 1. Third trimester ([facility]) Z34.93 POCT urinalysis dipstick manually resulted 2. 32 weeks gestation of ([facility]) Z3A.32 3. H/O opioid abuse ([facility] F11.11 4. History of placental abruption Z87.59 [...] Routine [facility] [address] [place] [phone] Tony Pringle DO [address] [place] [address] Scheduled Orders Name Type Priority Associated Diagnoses Orde r Schedule Hemoglobin A1c Lab Routine Diabetes mellitus screening Ordered: 06/07/2025 documented as of this encounter Procedures Procedure Name Priority Date/Time Associated Diagnosis Comments POCT URINALYSIS DIPSTICK Routine 06/07/2025 10:26 AM EDT Third trimester ([facility]) documented in this encounter Results * (ABNORMAL) [...] this encounter Visit Diagnoses Diagnosis Third trimester ([facility]) state, incidental 32 weeks gestation of ([facility]) H/O opioid abuse ([facility]) History of placental abruption Diabetes mellitus screening Screening for diabetes mellitus documented in this encounter
--- OUTSIDE RECORDS SUMMARY | 2025-06-08 11:21 | XMS_ITS | Encounter Summary ---
Author Organization [facility] Address [address] [place] [address] Care Team Providers Care Credit Representative Name Role Phone Unavailable Primary Care Provider Unavailabl e Encounter Details Date Type Department Care Team (Late Contact Info) Description 05/30/2025 External Result Encounter [facility] [place] [facility] [address] [place] [address] Mee Pringle DO [facility] [place] [place] [address] Social History Tobacco Use Types Packs/Day [...] Department Care Team (Late Contact Info) Description 06/20/2025 2:30 PM EDT Routine [facility] [place] [facility] [address] [place] [address] Mee Pringle DO [address] [place] [address] documented as of this encounter Procedures Procedure Name Priority Date/Time Associated Diagnosis Comments US OB 14+ WEEKS ANATOMY SCAN 05/30/2025 12:58 PM EDT documented in this encounter Results * US OB 14+ weeks anatomy scan (05/30/2025 12:58 PM EDT) Anatomical Region Laterality Modality Body Ultrasound 05/30/2025 12:5 8 PM EDT Narrative 05/30/2025 12:58 PM EDT THIS EXAM WAS PERFORMED AT [facility] NAME: YOAV MUNOZ : 1990 SEX: F Accession Number: [id number] ORDERING PHYSICIAN: MEE PRINGLE REFERRING PHYSICIAN: MEE PRINGLE Coding ----- --------- Procedures [id number]: Ultrasound, uterus, real time with image documentation, and maternal evaluation plus detailed anatomic examination, transabdominal approach;single or first gestation Indication ----- --------- Screening for Anatomic Survey, Hepatitis C in , Malformation of placenta- complete circumvallate,History of prior with delivery- placental abruption, Previous History ----- --------- OB History 4. Para 3 [id number] Maternal Assessment ----- --------- Physical Exam Initial [...] EFW (oz) 14 oz EFW by: Hadlock ([id number]) Extended Tibia 48.3 mm 29w 1d 6% Mara High Lift Operator 2.3 mm CM 9.6 mm 95% [...] view. RVOT view. LVOT view. 3-vessel view. 0-juogsh-iqxwkgs view. Situs. Bicaval view. Interventricular septum. Great [...] primary OB provider unless otherwise specified by MFM. Results forwarded to ordering provider so they can follow up with the patient as necessary. Procedure Note Radiology, Radiologist, - 05/30/2025 THIS EXAM WAS PERFORMED AT [facility] NAME: YOAV MUNOZ : 1990 SEX: F Accession Number: [id number] ORDERING PHYSICIAN: MEE PRINGLE REFERRING PHYSICIAN: MEE PRINGLE Coding ----- --------- Procedures 14782: Ultrasound, uterus, real time with imagedocumentation, and maternal evaluation plus detailed anatomic examination, transabdominalapproach;single or first gestation Indication ----- --------- Screening for Anatomic Survey, Hepatitis C in , Malformation ofplacenta- complete circumvallate,History of prior with delivery- placental abruption, Previous History ----- --------- OB History 4. Para 3 [id number] Maternal Assessment ----- --------- Physical Exam Initial [...] EFW (oz) 14 oz EFW by: Hadlock ([id number]) Extended Tibia 48.3 mm 29w 1d 6% Mara High Lift Operator 2.3 mm CM 9.6 mm 95% [...] 4-chamber view. RVOT view. LVOT view. 3-vessel view.5-hzxgvd-dajqsfg view. Situs. Bicaval view. Interventricular septum. Great [...] byprimary OB provider unless otherwise specified by [facility]. Results forwarded to ordering provider so they can follow up with thepatient as necessary. us Mee Pringle DO IMG OB US PROCEDURES Final Resul t documented in this encounter Visit Diagnoses Not on filedocumented in this encounter
--- OUTSIDE RECORDS SUMMARY | 2025-06-08 11:21 | XMS_ITS | Encounter Summary ---
Author Organization [facility] Address [address] [place] [address] Care Team Providers Care Crop Scout Name Role Phone Unavailable Primary Care Provider Unavailabl e Encounter Details Date Type Department Care Team (Late st Contact Info) Description 05/29/2025 Telephone [facility] [place] [facility] [address] [place] [address] Tony Pringle, [address] [place] [address] Social History Tobacco Use Types Packs/Day [...] she states that she was referred to [facility] and they contacted her today to schedule an appointment and that they would like to see her tomorrow at 9:30 but she has an appointment in our office and the next appointment would not be until July and she will have had thebaby by then. Patient asking what to do. Patient was advised Dr would peggy her to see [facility] and if shecan schedule that appointment for tomorrow to do so and we will reschedule her office visit with us. Patient voiced understanding and was transferred to clerical to reschedule appointment. documented in this encounter Plan of Treatment Upcoming Encounters Date Type Department Care Team (Late st Contact Info) Description 06/20/2025 2:30 PM EDT Routine [facility] [place] [facility] [address] [place] [phone] Tony Pringle DO [address] [place] [address] documented as of this encounter Visit Diagnoses Not on filedocumented in this encounter
--- OUTSIDE RECORDS SUMMARY | 2025-06-08 11:21 | XMS_ITS | Encounter Summary ---
Author Organization [facility] Address [address] [place] [address] Care Team Providers Care Medical Center Manager Name Role Phone Unavailable Primary Care Provider Unavailabl e Encounter Details Date Type Department Care Team (Late st Contact Info) Description 05/30/2025 Telephone [facility] [place] [facility] [address] [place] [address] Tony Pringle, [address] [place] [address] Social History Tobacco Use Types Packs/Day [...] - 05/30/2025 9:24 AM EDT 9:04 am Dc, this is [facility] calling from maternal medicine over at [facility]. We are scheduled to see Carmelita [...] clarifies her history. Our fax number is [phone]. And my direct phone number is [phone]. Thank you, anita howard. 9:20 am- Called and spoke with [facility] and tea advise do not see any Genetic testing on patient and confirmed per Flow sheet she is . After more research into chart saw patient would be and consents for with information was sent to [facility] and updated in chart. documented in this encounter Plan of Treatment Upcoming Encounters Date Type Department Care Team (Late st Contact Info) Description 06/20/2025 2:30 PM EDT Routine [facility] [place] [facility] [address] [place] [address] Tony Pringle DO [address] [place] [address] documented as of this encounter Visit Diagnoses Not on filedocumented in this encounter
--- OUTSIDE RECORDS SUMMARY | 2025-06-08 11:21 | XMS_ITS | Encounter Summary ---
Author Organization [facility] Address [address] [place] [address] Care Team Providers Care Dry Wall Applicator Name Role Phone Unavailable Primary Care Provider Unavailabl e Encounter Details Date Type Department Care Team (Late st Contact Info) Description 05/28/2025 Abstract [facility] [address] [place] [address] Tony Pringle DO [address] [place] [address] Social History Tobacco Use Types Packs/Day [...] Info) Description 06/20/2025 2:30 PM EDT Routine [facility] [address] [place] [address] Tony Pringle DO [address] [place], [facility] documented as of this encounter Visit Diagnoses Not on filedocumented in this encounter
--- OUTSIDE RECORDS SUMMARY | 2025-06-08 11:21 | XMS_ITS | Encounter Summary ---
Author Organization [facility] Address [id number] [address] [place] [address] Care Team Providers Care Registered Nurse Ambulatory Name Role Phone No Pcp, No Pcp Primary Care Provider Unavailabl e Encounter Details Date Type Department Care Team (Late Contact Info) Description 05/30/2025 Abstract Maternal- Medicine at [facility] [address] [place] [phone] Nohemy Hernandez MD [address] [facility], [address]LO[address] [place], [place] [id number] Social History Tobacco Use Types Packs/Day Years [...] Upcoming Encounters Date Type Department Care Team ([facility] Contact Info) Description 07/05/2025 1:00 PM EDT Appointment [facility] US Imaging [address] [place] [phone] 07/05/2025 2:30 PM EDT Office Visit Maternal- Medicine at [facility] [address] [facility] [place] [phone] Tasia Dowd MD [address] [facility] 1[address] Floor [place], [place] [id number] documented as of this encounter Procedures Procedure [...] ORDERABLES Final Re sult Performing Organization Address [facility] Co de Phone Number MANUALLY TRANSCRIBED RESULTS [...] ORDERABLES Final Re sult Performing Organization Address [facility] de Phone Number MANUALLY TRANSCRIBED RESULTS * CBC without diff (05/21/2025) Hemoglobin 10.8 MANUALLY TRANSCRIBED RESULTS Hematocrit 30.6 MANUALLY TRANSCRIBED RESULTS Rbc Mcv (Fl) By Automated Count 79.3 MANUALLY TRANSCRIBED RESULTS Platelets 176 MANUALLY TRANSCRIBED RESULTS Blood Venous blood / Unknown us Not In System Ref Prov LAB BLOOD ORDERABLES Yun l Result Performing Organization Address [facility] Co de Phone Number MANUALLY TRANSCRIBED RESULTS documented in this encounter Visit Diagnoses Not on filedocumented in this encounter Care Teams Registered Nurse Ambulatory Relationship Specialty Start Date End Date No Pcp, [place] [address] PCP - General Family Medicine 04/27/20 documented as of this encounter
--- OUTSIDE RECORDS SUMMARY | 2025-06-08 11:21 | XMS_ITS | Encounter Summary ---
Author Organization [facility] Address [address] [place] [address] Care Team Providers Care Rotary Operator Name Role Phone Unavailable Primary Care Provider Unavailabl e Encounter Details Date Type Department Care Team (Late st Contact Info) Description 06/07/2025 Bamboo flowsheet [facility] [address] [place] [address] Tony Pringle DO [address] [place], [id number] Social History Tobacco Use Types Packs/Day Years [...] 2:30 PM EDT Routine [facility] [address] [facility] [place] [address] Tony Pringle DO [address] [place] [address] documented as of this encounter Visit Diagnoses Not on filedocumented in this encounter
--- OUTSIDE RECORDS SUMMARY | 2025-06-08 11:21 | XMS_ITS | Encounter Summary ---
Author Organization [facility] Address [id number] [address] [place] [address] Care Team Providers Care Bilingual Secretary Name Role Phone No Pcp, No Pcp Primary Care Provider Unavailabl e Encounter Details Date Type Department Care Team (Late Contact Info) Description 05/30/2025 Orders Only Maternal- Medicine at [facility] [address] [place] [phone] Ref Prov, [place] [address] Social History Tobacco Use Types Packs/Day Years [...] Appointment [facility] US Imaging [address] [place] [phone] 07/05/2025 2:30 PM EDT Office Visit Maternal- Medicine at [facility] [address] [place] [phone] Tasia Dowd MD [address] [place] [address] documented as of this encounter Procedures Procedure [...] on filedocumented in this encounter Care Teams Bilingual Secretary Relationship Specialty Start Date End Date No Pcp, [place] [address] PCP - General Family Medicine 04/27/20 documented as of this encounter
--- OUTSIDE RECORDS SUMMARY | 2025-06-08 11:21 | XMS_ITS | Encounter Summary ---
Author Organization [facility] Address [id number] [address] [place] [address] Care Team Providers Care Casket Trimmer Name Role Phone No Pcp, No Pcp Primary Care Provider Unavailabl e Encounter Details Date Type Department Care Team (Late st Contact Info) Description 05/30/2025 Abstract Maternal- Medicine at [facility] [address] [place] [phone] Nohemy Hernandez MD [address] [facility], [address]LO[address] [place], [place] [phone] Social History Tobacco Use Types Packs/Day Years [...] Info) Description 07/05/2025 1:00 PM EDT Appointment [facility] US Imaging [address] [place] [phone] 07/05/2025 2:30 PM EDT Office Visit Maternal- Medicine at [facility] [address] [place] [phone] Tasia Dowd MD [address] [facility] 1st [place] [address] documented as of this encounter Visit Diagnoses Not on filedocumented in this encounter Care Teams Casket Trimmer Relationship Specialty Start Date End Date No Pcp, [place] [address] PCP - General Family Medicine 04/27/20 documented as of this encounter
--- OUTSIDE RECORDS SUMMARY | 2025-06-08 11:21 | XMS_ITS | Encounter Summary ---
Author Organization [facility] Address [address] [place] [address] Care Team Providers Care Property Management Intern Name Role Phone Unavailable Primary Care Provider Unavailabl e Encounter Details Date Type Department Care Team (Late st Contact Info) Description 07/05/2015 Abstract [facility] [address] [place] [address] Tony Pringle DO [address] [place], [facility]11 Social History Tobacco Use Types Packs/Day Years [...] Info) Description 06/20/2025 2:30 PM EDT Routine [facility] [address] [place] [address] Tony Pringle DO [address] [place], [facility]11 documented as of this encounter Visit Diagnoses Not on filedocumented in this encounter
--- OUTSIDE RECORDS SUMMARY | 2025-06-08 11:22 | XMS_ITS | Clinical Summary ---
Author Organization [facility] Address [address] [place] [address] Care Team Providers Care Development Editor Name Role Phone Unavailable Primary Care Provider Unavailabl e Allergies Active Allergy Reactions Criticality Noted Date Comments Penicillin G 01/25/2025 Other Reaction(s): childhood/unknown, Unknown Penicillins 06/24/2020 Medications Suboxone 8-[address] 1 Film under the tongue Daily 03/27/2025 Active gabapentin (Neurontin) 100 MG capsule as directed for 9 days Active QUEtiapine (SEROquel) 50 MG tablet Take 50 mg by mouth at bedtime 03/23/2025 Active magnesium oxide (Mag-Ox) 400 MG tabletIndicatio ns: headache in second trimester ([facility]) Take 1 tablet (400 mg) by mouth Daily 30 tablet 11 04/13/2025 04/13/20 26 Active Encounters Date Type Department Care Team Description 06/07/2025 9:40 AM [place] [address] eMe Pringle, Third trimester ([facility]); 32 weeks gestation of ([facility]); H/O opioid abuse ([facility] History of placental abruption; Diabetes mellitus screening 06/07/2025 [place] [address] Mee Pringle DO 06/05/2025 Clinisync Result Encounter NOMS External Department Unsolicited Mee Pringle DO 05/30/2025 Abstract [facility] [place] [address] [place] [address] Mee Pringle, DO 05/30/2025 External Result Encounter [facility] [place] [address] Mee Pringle, DO 05/30/2025 Telephone [facility] [place] ACEVESGYJennifer El[address] [place] [address] Mee Pringle, DO 05/29/2025 Telephone [facility] [place] ACEVESGYJennifer [address] [place] [address] [place] [address] Mee Pringle, DO 05/28/2025 Abstract [facility] [place] [facility] [facility] [place] [address] Mee Pringle, DO 05/21/2025 Clinisync Result Encounter NOMS External Department Unsolicited Mee Pringle, DO 05/16/2025 11:00 AM EDT Routine [facility] [place] El[place] [place] [address] Mee Prnigle, DO 29 weeks gestation of ([facility]); Third trimester ([facility]); Request for sterilization; H/O opioid abuse ([facility]); History of placental abruption; Abnormal ultrasonic finding on screening of mother, antepartum 05/16/2025 Bamboo flowsheet [facility] [place] [address] Mee Pringle, DO 05/02/2025 3:20 PM EDT Routine [facility] [place] [address] Mee Pringle, DO Second trimester ([facility]); 27 weeks gestation of ([facility]); Request for sterilization; H/O opioid abuse ([facility]); History of placental abruption 05/02/2025 Bamboo flowsheet [facility] [place] [address] Mee Pringle, 04/18/2025 1:30 PM [place] [address] Mee Pringle, DO Second trimester ([facility]); 25 weeks gestation of ([facility]); Abnormal ultrasonic finding on screening of mother, antepartum 04/18/2025 Bamboo flowsheet [facility] [place] [address] Mee Pringle, 04/09/2025 Clinisync Result Encounter NOMS External Department Unsolicited Paradise Olvera PA 04/09/2025 Clinisync Result Encounter NOMS External Department Unsolicited Paradise Olvera PA 04/06/2025 11:00 AM EDT Initial HALEY [place] [address] GA: 23w6d from Last 3 Months Family [...] (165 lb) 06/07/2025 10:17 AM EDT Height 165.1 cm (5' 5 ) 12/09/2022 12:00 PM EST Body Mass Index 27.46 12/09/2022 12:00 PM EST Plan of Treatment Upcoming Encounters Date Type Department Care Team (Late st Contact Info) Description 06/20/2025 2:30 PM EDT Routine [facility] [place] [facility] [address] [place] [address] Mee Pringle, [address] [place] [address] Health Maintenance Due Date Last Done Comments Pap Smear 2013 Cervical Cancer Screening 2022 HPV/Cotest 2022 Influenza Vaccine (#1) 2025 Procedures Procedure Name Priority Date/Time Associated Diagnosis Comments POCT URINALYSIS DIPSTICK Routine 06/07/2025 10:26 AM EDT Third trimester ([facility]) US OB BPP W NON-STRESS 06/05/2025 12:03 PM EDT US OB 14+ WEEKS ANATOMY SCAN 05/30/2025 [...] 11:03 AM EDT 29 weeks gestation of ([facility]) Third trimester ([facility]) POCT URINALYSIS DIPSTICK Routine 04/18/2025 1:44 PM EDT Second trimester ([facility]) US OB ANATOMY 04/09/2025 1:01 PM EDT US OB CERVICAL LENGTH 04/09/2025 1:01 PM EDT POCT URINALYSIS DIPSTICK Routine 04/06/2025 11:13 AM EDT Missed menses POCT , URINE Routine 04/06/2025 11:13 AM EDT Missed menses from Last 3 Months Results * (ABNORMAL) POCT urinalysis dipstick manually resulted (06/07/2025 10:26 AM EDT) Only the most recent of4 resultswithin the time period is included. Color, UA Yellow Clarity, UA Clear Glucose, UA Negative Negative - 1999(110) ++++ mg/dL Bilirubin, UA Negative Negative - [...] Positive Urine 06/07/2025 10:2 6 AM EDT us Mee Pringle DO POINT OF CARE TEST ENTER/EDIT OR DERABLES Final Result * US OB BPP W NON-STRESS (06/05/2025 12:03 PM EDT) Anatomical Region Laterality Modality Other 06/05/2025 12:0 3 PM EDT Narrative 06/05/2025 12:06 [place] [address] Ultrasound Report Signed Patient: CARMELITA CASON MR#: [id number] : 1990 Acct:[id number] Age/Sex: 34 / F ADM Date: 06/05/25 Loc: US Attending Dr: Mee Pringle D.O. Ordering Physician: Mee Pringle D.O. Date of Service: 06/05/25 Procedure(s): US OB BPP w non-stress Accession Number(s): [id number] cc: ROMEO GAR ; Mee Pringle D.O. [place] [id number] Patient Name: CARMELITA CASON MRN: [facility]:[id number] date: 1990 Sex: F Assigned Patient Location: Current Patient Location: Accession/Order Number: [id number] Exam Date: 06/05/2025 11:53 Report Date: 06/05/2025 12:03 At the request of: MEE PRINGLE DO Procedure: US OB BPP w non-stress Biophysical profile. Reason for exam: History of opioid abuse COMPARISON: None TECHNIQUE: Transabdominal imaging of the gravid uterus was obtained. FINDINGS: The return to vendor reports a BPP of 8 out of 8. ELIZABETH is normal at 21 cm. heart rate 135 bpm. US/US OB BPP w non-stress IMPRESSION: BPP 8 out of 8. Impression dictated by: Serafin Sorto Jr., D.O. 06/05/2025 12:03 PM Dictation Location: [place] [address] Electronically authenticated by: [id number] Y Date: 06/05/2025 12:03 Dictated By: Serafin Sorto M.D. Signed By: 06/05/25 1206 DD/ 1203 TD/TT: High Worker: Procedure Note Radiology, Radiologist, MD - 06/05/2025 [place] [address] Ultrasound Report Signed Patient: CARMELITA CASON NMR#: [id number] : 1990Acct:[id number] Age/Sex: 34 / FADM Date: 06/05/25 Loc: US Attending Dr: Mee Pringle D.O. Ordering Physician: Mee Pringle D.O. Date of Service: 06/05/25 Procedure(s): US OB BPP w non-stress Accession Number(s): [id number] cc: ROMEO GAR ; Mee Pringle D.O. [place] [id number] Patient Name: CARMELITA CASON MRN: [facility]:[id number] date: 1990 Sex: F Assigned Patient Location: US Current Patient Location: Accession/Order Number: [id number] Exam Date: 06/05/2025 11:53 Report Date: 06/05/2025 12:03 At the request of: MEE PRINGLE DO Procedure: US OB BPP w non-stress Biophysical profile. Reason for exam: History of opioid abuse COMPARISON: None TECHNIQUE: Transabdominal imaging of the gravid uterus was obtained. FINDINGS: The return to vendor reports a BPP of 8 out of 8. ELIZABETH is normal at21 cm. heart rate 135 bpm. US/US OB BPP w non-stress IMPRESSION: BPP 8 out of 8. Impression dictated by: Serafin Sorto Jr., D.O. 06/05/2025 12:03 PM Dictation Location: [facility]--[facility] Electronically authenticated by: [id number] Y Date: :03 Dictated By: Serafin Sorto M.D. Signed By:06/05/25 1206 DD/ 120 TD/TT: High Worker: us Mee Pringle DO [facility] Final Result * US OB 14+ weeks anatomy scan (05/30/2025 12:58 PM EDT) Anatomical Region Laterality Modality Body Ultrasound 05/30/2025 12:5 8 PM EDT Narrative 05/30/2025 12:58 PM EDT THIS EXAM WAS PERFORMED AT [facility] NAME: YOAV MUNOZ : 1990 SEX: F Accession Number: [id number] ORDERING PHYSICIAN: MEE PRINGLE REFERRING PHYSICIAN: MEE PRINGLE Coding ----- --------- Procedures 39347: Ultrasound, uterus, real time with image documentation, and maternal evaluation plus detailed anatomic examination, transabdominal approach;single or first gestation Indication ----- --------- Screening for Anatomic Survey, Hepatitis C in , Malformation of placenta- complete circumvallate,History of prior with delivery- placental abruption, Previous History ----- --------- OB History 4. Para 3 [id number] Maternal Assessment ----- --------- Physical Exam Initial [...] EFW (oz) 14 oz EFW by: Hadlock (PDW-VF-OL-FL) Extended Tibia 48.3 mm 29w 1d 6% [employer]a [employer] 2.3 mm CM 9.6 mm 95% Nicolaides [...] view. RVOT view. LVOT view. 3-vessel view. 9-oxqrdi-hdvxgan view. Situs. Bicaval view. Interventricular septum. Great [...] placenta noted. Recommendations ----- --------- Please see [facility] documentation from today. The patient is scheduled in four week(s) to complete anatomic survey. Subsequent follow up or other follow up as clinically determined by primary OB provider unless otherwise specified by [facility]. Results forwarded to ordering provider so they can follow up with the patient as necessary. Procedure Note Radiology, Radiologist, - 05/30/2025 THIS EXAM WAS PERFORMED AT [facility] NAME: YOAV MUNOZ : 1990 SEX: F Accession Number: [id number] ORDERING PHYSICIAN: MEE PRINGLE REFERRING PHYSICIAN: MEE PRINGLE Coding ----- --------- Procedures 42988: Ultrasound, uterus, real time with imagedocumentation, and maternal evaluation plus detailed anatomic examination, transabdominalapproach;single or first gestation Indication ----- --------- Screening for Anatomic Survey, Hepatitis C in , Malformation ofplacenta- complete circumvallate,History of prior with delivery- placental abruption, Previous History ----- --------- OB History 4. Para 3 [id number] Maternal Assessment ----- --------- Physical Exam Initial [...] EFW (oz) 14 oz EFW by: Hadlock (EHG-HL-EZ-FL) Extended Tibia 48.3 mm 29w 1d 6% Mara [employer] Team Leader 2.3 mm CM 9.6 mm 95% Nicolaides [...] 4-chamber view. RVOT view. LVOT view. 3-vessel view.1-bmzgqp-xeduczu view. Situs. Bicaval view. Interventricular septum. Great [...] up with thepatient as necessary. us Mee Castellanoso DO IMG OB US PROCEDURES Final Resul t * HBSAG SCREEN (05/21/2025 11:39 AM EDT) HBSAG SCREEN Negative Negative [facility] Comment: Performed at: - [address] [id number] Instructor Flying: Aric Pryor PhD, Phone: [phone] 05/21/2025 11:3 9 AM EDT 05/21/2025 11:46 AM EDT Narrative [facility] - 05/22/2025 12:09 PM EDT us Mee Yary DO LAB BLOOD ORDERABLES Final Resul t [facility] * RAPID PLASMA REAGIN, QUANT (05/21/2025 11:39 AM EDT) RAPID PLASMA REAGIN, QUANT Non Reactive NonRea<1: 1 titer [facility] Comment: Please Note: This test does not meet current guidelines for screening and diagnosis of syphilis. This test is intended for following treatment response in patients being treated for syphilis infection. To screen for syphilis infection, a reflex cascade that includes both RPR and a treponema-specific assay should be utilized, such as Treponema pallidum (Syphilis) Screening [place] (912472) or Rapid Plasma Reagin (RPR) Test With Reflex to Quantitative RPR and Confirmatory Treponema pallidum Antibodies (462484). Performed at: [facility] [id number] Instructor Flying: Aric Pryor PhD, Phone: [phone] 05/21/2025 11:3 9 AM EDT 05/21/2025 11:46 AM EDT Narrative [facility] - 05/22/2025 12:09 PM EDT Mee Yary DO LAB BLOOD ORDERABLES Final Resul t Performing Organization Address [facility] de Phone Number [facility] * HIV AB/P24 AG WITH REFLEX (05/21/2025 11:39 AM EDT) Pathologist [facility] HIV AB/P24 AG SCREEN Non Reactive Non Reactive [facility] Comment: HIV-1/HIV-2 antibodies and HIV-1 p24 antigen were NOT detected. There is no laboratory evidence of HIV infection. HIV Negative Performed at: [facility] [id number] Instructor Flying: Aric Pryor PhD, Phone: [phone] 05/21/2025 11:3 9 AM EDT 05/21/2025 11:46 AM EDT Narrative [facility] - 05/22/2025 5:08 AM EDT Mee Yary DO LAB BLOOD ORDERABLES Final Resul t Performing Organization Address [facility] Co de Phone Number [facility] * (ABNORMAL) HCV ANTIBODY RFX TO QUANT PCR (05/21/2025 11:39 AM EDT) [facility] HCV AB Reactive(A) Non Reactive [facility] HEPATITIS C QUANTITATION 51751 . IU/mL [facility] HCV LOG10 4.819 . [facility] Comment:Result Units: log10 IU/mL TEST INFORMATION: Comment . [facility] Comment: The quantitative range of this assay is 15 IU/mL to 100 million IU/mL. INTERPRETATION: Comment . [facility] Comment: Positive HCV antibody screen with the presence of HCV RNA is consistent with active infection. Performed at: [facility] [address] [id number] Instructor Flying: Aric Pryor PhD, Phone: [phone] Performed at: [facility]) [address] [id number] Instructor Flying: Miles Owens MD, Phone: [phone] 05/21/2025 11:3 9 AM EDT 05/21/2025 11:46 AM EDT Narrative [facility] - 05/24/2025 3:08 PM EDT Mee Pringle DO LAB BLOOD ORDERABLES Final Resul t Performing Organization Address [facility] Co de Phone Number [facility] * MLR HEMOGLOBIN A1C (05/21/2025 11:39 AM EDT) [facility] GLYCOHEMOGLOBIN A1C 4.7 4.5 - 6.2 % [facility] Comment: ADA RECOMMENDED LIMIT 4.0 - 6.0 ADA THERAPEUTIC TARGET < 7.0 ACTION SUGGESTED > 7.0 ESTIMATED AVERAGE GLUCOSE 88 mg/dL [facility] 05/21/2025 11:3 9 AM EDT 05/21/2025 11:46 AM EDT Narrative [facility] - 05/21/2025 12:42 PM EDT Mee Yary DO [facility] Final Result Performing Organization Address [facility] Co de Phone Number [facility] * ALL TYPE AND SCREEN (05/21/2025 11:39 AM EDT) [facility] BLOOD TYPE B Positive [facility] ANTIBODY SCREEN NEGATIVE [facility] 05/21/2025 11:3 9 AM EDT 05/21/2025 11:46 AM EDT [facility] - 05/21/2025 1:42 PM EDT [facility] Final Result Performing Organization Address [facility]/ZIP Co de Phone Number [facility] * (ABNORMAL) ALL RUBELLA IGG AB (05/21/2025 11:39 AM EDT) [facility] RUBELLA ANTIBODIES, IGG <0.90(A) Immune >0.99 index [facility] Comment: Non-immune <0.90 Equivocal 0.90 - 0.99 Immune >0.99 Performed at: [facility] [address] [id number] Instructor Flying: Aric Pryor PhD, Phone: [phone] 05/21/2025 11:3 9 AM EDT 05/21/2025 11:46 AM EDT [facility] - 05/24/2025 3:08 PM EDT [facility] Final Result Performing Organization Address [facility]/ZIP Co de Phone Number [facility] * (ABNORMAL) ALL CBC WITH AUTO DIFF (05/21/2025 11:39 AM EDT) [facility] WBC 11.8(H) 4.0 - 11.0 10 3/uL [facility] RBC 3.86(L) 4.20 - 5.40 10 6/uL [facility] HGB 10.8(L) 12.0 - 16.0 g/dL [facility] HCT 30.6(L) 36.0 - 48.0 % [facility] MCV 79.3(L) 81.0 - 99.0 fL [facility] [...] Narrative [facility] - 05/21/2025 12:10 PM EDT Mee Pringle DO [facility] Final Result [facility] * (ABNORMAL) BUPRENORPHINE CONFIRM, URINE (05/21/2025 11:24 AM EDT) BUPRENORPHINE Positive( A) . [facility] BUPRENORPHINE CONF, MS, UR 525 Cutoff=10 ng/mL [facility] NORBUPRENORPHINE Positive( A) . [facility] NORBUPRENORPHINE CONF, MS,UR 905 Cutoff=10 ng/mL [facility] Comment: Performed at: - [facility] [address] [place], [place] [id number] Instructor Flying: Soledad Mendieta PhD, Phone: [phone] 05/21/2025 11:2 4 AM EDT 05/21/2025 12:08 PM EDT Narrative [facility] - 05/24/2025 12:09 PM EDT us Mee Yary DO LAB BLOOD ORDERABLES Final Resul t [facility] * (ABNORMAL) [facility] DRUG SCREEN RAPID (URINE) (05/21/2025 11:24 AM EDT) Pathologist [facility] CANNABINOID SCREEN URINE NEGATIVE NEGATIVE [facility] PHENCYCLIDINE SCREEN URINE NEGATIVE NEGATIVE [facility] COCAINE SCREEN URINE NEGATIVE NEGATIVE [facility] METHAMPHETAMINES SCREEN URINE NEGATIVE NEGATIVE [facility] OPIATE SCREEN URINE NEGATIVE NEGATIVE [facility] AMPHETAMINE SCREEN URINE NEGATIVE NEGATIVE [facility] BENZODIAZEPINES SCREEN URINE NEGATIVE NEGATIVE [facility] TRICYCLIC ANTIDEPRESSANT URINE NEGATIVE NEGATIVE [facility] METHADONE SCREEN URINE NEGATIVE NEGATIVE [facility] BARBITURATES SCREEN URINE NEGATIVE NEGATIVE [facility] OXYCODONE SCREEN URINE NEGATIVE NEGATIVE [facility] BUPRENORPHINE SCREEN URINE POSITIVE(A) NEGATIVE [facility] Comment: DRUG CLASS TEST SYSTEM CUT-OFF CONCENTRATIONS [...] Narrative [facility] - 05/21/2025 12:05 PM EDT us Mee Yary DO [facility] Final Result [facility] * US OB CERVICAL LENGTH (04/09/2025 1:01 PM EDT) Anatomical Region Laterality Modality Other 04/09/2025 1:01 PM EDT Narrative 04/09/2025 1:04 PM EDT [address] [address] Ultrasound Report Signed Patient: CARMELITA CASON MR#: [id number] : 1990 Acct:[id number] Age/Sex: 34 / F ADM Date: 04/09/25 Loc: US Attending Dr: Paradise Olvera Ordering Physician: Paradise Olvera Date of Service: 04/09/25 Procedure(s): US OB cervical length Accession Number(s): [id number] cc: Paradise Olvera; ROMEO GAR [place] [id number] Patient Name: CARMELITA CASON MRN: [id number] date: 1990 Sex: F Assigned Patient Location: US Current Patient Location: US Accession/Order Number: [id number] Exam Date: 04/09/2025 12:20 Report Date: 04/09/2025 [...] all 4 extremities were surveyed by the return to vendor. No abnormalities were detected. The stomach, bladder, [...] Zelaya M.D. 04/09/2025 1:01 PM Dictation Location: [place] [address] Electronically authenticated by: [id number] Y Date: 04/09/2025 13:01 Dictated By: Raine Zelaya M.D. Signed By: 04/09/25 1304 DD/ 1301 TD/TT: High Worker: Procedure Note Radiology, Radiologist, MD - 04/09/2025 [place] [address] Ultrasound Report Signed Patient: CARMELITA CASON NMR#: [id number] : 1990Acct:[id number] Age/Sex: 34 / FADM Date: 04/09/25 Loc: US Attending Dr: Paradise Olvera Ordering Physician: Paradise Olvera Date of Service: 04/09/25 Procedure(s): US OB cervical length Accession Number(s): [id number] cc: ROMEO Quinonez [place] [id number] Patient Name: CARMELITA CASON MRN: [id number] date: 1990 Sex: F Assigned Patient Location: US Current Patient Location: US Accession/Order Number: [id number] Exam Date: 04/09/2025 12:20 Report Date: 04/09/2025 [...] and all 4 extremities weresurveyed by the return to vendor. No abnormalities were detected. The stomach,bladder, kidneys, [...] Zelaya M.D. 04/09/2025 1:01 PM Dictation Location: [place] [address] Electronically authenticated by: [id number] Y Date: 3:01 Dictated By: Raine Zelaya M.D. Signed By:04/09/25 1304 DD/ 1301 TD/TT: High Worker: us Paradise MORROW [facility] Final Result * US OB ANATOMY (04/09/2025 1:01 PM EDT) Anatomical Region Laterality Modality Other 04/09/2025 1:01 PM EDT Narrative 04/09/2025 1:04 [place] [address] Ultrasound Report Signed Patient: CARMELITA CASON MR#: [id number] : 1990 Acct:[id number] Age/Sex: 34 / F ADM Date: 04/09/25 Loc: US Attending Dr: Paradise Olvera Ordering Physician: Paradise Olvera Date of Service: 04/09/25 Procedure(s): US OB anatomy Accession Number(s): [id number] cc: Paradise Olvera; ROMEO GAR [place] [phone] Patient Name: CARMELITA CASON MRN: [id number] date: 1990 Sex: F Assigned Patient Location: US Current Patient Location: US Accession/Order Number: [id number] Exam Date: 04/09/2025 12:20 Report Date: 04/09/2025 [...] all 4 extremities were surveyed by the return to vendor. No abnormalities were detected. The stomach, bladder, [...] Zelaya M.D. 04/09/2025 1:01 PM Dictation Location: [place] [address] Electronically authenticated by: [id number] Y Date: 04/09/2025 13:01 Dictated By: Raine Zelaya M.D. Signed By: 04/09/25 1304 DD/ 1301 TD/TT: High Worker: Procedure Note Radiology, Radiologist, MD - 04/09/2025 [place] [address] Ultrasound Report Signed Patient: CARMELITA CASON [facility]#: [id number] : 1990Acct:[id number] Age/Sex: 34 / FADM Date: 04/09/25 Loc: US Attending Dr: Paradise Olvera Ordering Physician: Paradise Olvera Date of Service: 04/09/25 Procedure(s): US OB anatomy Accession Number(s): [id number] cc: Paradise Olvera; ROMEO GAR [place] [phone] Patient Name: CARMELITA CASON MRN: [id number] date: 1990 Sex: F Assigned Patient Location: US Current Patient Location: US Accession/Order Number: [id number] Exam Date: 04/09/2025 12:20 Report Date: 04/09/2025 [...] and all 4 extremities weresurveyed by the return to vendor. No abnormalities were detected. The stomach,bladder, kidneys, [...] Zelaya M.D. 04/09/2025 1:01 PM Dictation Location: [place] [address] Electronically authenticated by: [id number] Y Date: 3:01 Dictated By: Raine Zelaya M.D. Signed By:04/09/25 1304 DD/ 1301 TD/TT: High Worker: Paradise MORROW [facility] Final Result * (ABNORMAL) POCT , urine manually resulted (04/06/2025 11:13 AM EDT) Preg Test, Ur Positive Negative Urine 04/06/2025 11:1 3 AM EDT Mee Pringle DO POINT OF CARE TEST ENTER/EDIT OR DERABLES Final Result from Last 3 Months Insurance [employer]
--- OUTSIDE RECORDS SUMMARY | 2025-06-08 11:22 | XMS_ITS | Encounter Summary ---
Author Organization [facility] Address [address] [place] [address] Care Team Providers Care Birth Attendant Name Role Phone Unavailable Primary Care Provider Unavailabl e Encounter Details Date Type Department Care Team (Late st Contact Info) Description 05/30/2025 Abstract NOMJennifer CAMPBELL [address] [place], [place] [address] [address] Tony Pringle DO [address] [place] [address] Social History Tobacco Use Types Packs/Day [...] EDT Routine NOMJennifer CAMPBELL [address] [place] [address] Tony Pringle DO [address] [place], [facility] documented as of this encounter Visit Diagnoses Not on filedocumented in this encounter
--- OUTSIDE RECORDS SUMMARY | 2025-06-08 11:22 | XMS_ITS | Encounter Summary ---
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 Name Role Phone Unavailable Primary Care Provider Unavailabl e Encounter Details Date Type Department Care Team (Late st Contact Info) Description 06/05/2025 Clinisync Result Encounter [facility] Unsolicited Mee Pringle DO [address] [place], [place] [id number] Social History Tobacco Use Types Packs/Day Years [...] Routine [facility] [address] [place] [address] Mee Pringle DO [address] [place] [address] documented as of this encounter Procedures Procedure Name Priority Date/Time Associated Diagnosis Comments US OB BPP W NON-STRESS 06/05/2025 12:03 PM EDT documented in this encounter Results * US OB BPP W NON-STRESS (06/05/2025 12:03 PM EDT) Anatomical Region Laterality Modality Other 06/05/2025 12:0 3 PM EDT Narrative 06/05/2025 12:06 [place] [address] Ultrasound Report Signed Patient: CARMELITA YANEZ MR#: [id number] : 1990 Acct:[id number] Age/Sex: 34 / F ADM Date: 06/05/25 Loc: US Attending Dr: Mee Pringle D.O. Ordering Physician: Mee Pringle D.O. Date of Service: 06/05/25 Procedure(s): US OB BPP w non-stress Accession Number(s): [id number] cc: ROMEO GAR ; Mee Pringle D.O. [place] [address] Patient Name: CARMELITA YANEZ MRN: [id number] date: 1990 Sex: F Assigned Patient Location: Current Patient Location: Accession/Order Number: [id number] Exam Date: 06/05/2025 11:53 Report Date: 06/05/2025 12:03 At the request of: MEE PRINGLE DO Procedure: US OB BPP w non-stress Biophysical profile. Reason for exam: History of opioid abuse COMPARISON: None TECHNIQUE: Transabdominal imaging of the gravid uterus was obtained. FINDINGS: The formal waiter/waitress reports a BPP of 8 out of 8. ELIZABETH is normal at 21 cm. heart rate 135 bpm. US/US OB BPP w non-stress IMPRESSION: BPP 8 out of 8. Impression dictated by: Serafin Sorto Jr., D.O. 06/05/2025 12:03 PM Dictation Location: [place] [address] Electronically authenticated by: [id number] Y Date: 06/05/2025 12:03 Dictated By: Serafin Sorto M.D. Signed By: 06/05/25 1206 DD/ 120 TD/TT: International Bank Manager: Procedure Note Radiology, Radiologist, - 06/05/2025 [place] [address] Ultrasound Report Signed Patient: CARMELITA YANEZ NMR#: [id number] : 1990Acct:[id number] Age/Sex: 34 / FADM Date: 06/05/25 Loc: US Attending Dr: Mee Pringle D.O. Ordering Physician: Mee Pringle D.O. Date of Service: 06/05/25 Procedure(s): US OB BPP w non-stress Accession Number(s): [id number] cc: ROMEO GAR ; Mee Pringle D.O. The [place] [address] Patient Name: CARMELITA YANEZ MRN: [id number] date: 1990 Sex: F Assigned Patient Location: US Current Patient Location: Accession/Order Number: [id number] Exam Date: 06/05/2025 11:53 Report Date: 06/05/2025 12:03 At the request of: MEE PRINGLE DO Procedure: US OB BPP w non-stress Biophysical profile. Reason for exam: History of opioid abuse COMPARISON: None TECHNIQUE: Transabdominal imaging of the gravid uterus was obtained. FINDINGS: The formal waiter/waitress reports a BPP of 8 out of 8. ELIZABETH is normal at21 cm. heart rate 135 bpm. US/US OB BPP w non-stress IMPRESSION: BPP 8 out of 8. Impression dictated by: Serafin Sorto Jr., D.O. 06/05/2025 12:03 PM Dictation Location: [place] [address] Electronically authenticated by: [id number] Y Date: 2:03 Dictated By: Serafin Sorto M.D. Signed By:06/05/25 1206 DD/ 1203 TD/TT: International Bank Manager: us Mee Pringle DO [facility] Final Result documented in this encounter Visit Diagnoses Not on filedocumented in this encounter
--- OUTSIDE RECORDS SUMMARY | 2025-06-08 11:22 | XMS_ITS | Patient Health Record ---
Author Organization [facility] in [place] Address [address] [place] [address] Care Team Providers Care Rabbit Breeder Name Role Phone Farideh Gar Primary Care Provider Allergies Allergen (clinical drug ingredient) Drug/Non Drug Allergy documented on EMR Reaction Allergy Type Onset Date Status Penicillin childhood/unknow n Drug Allergy Active Results Component Value Reference Range Notes COVID-19, Flu A+B IH (Not ye t reviewed by provider) Interpretation: Performing Lab: Notes/Report: COVID neg FLU A neg FLU B neg Control present INFLUENZA A AND B AG Reviewed date:09/20/2024 11:53:12 AM Interpretation: Performing Lab: Notes/Report: [facility] , Influenza Virus A Antigen Negative cannot be ruled out. Flu A antigen in the sample may be below the detection limit of the test. Negative for Flu A protein antigen. Infection due to Flu A Influenza Virus B Antigen Negative Negative for Flu B protein antigen. Infection due to Flu B cannot be ruled out. Flu B antigen in the sample may be below the detection limit of the test. Performing Lab: see note ML - [facility] LB SARS-CoV-2 Ag* Reviewed date:09/20/2024 11:53:12 AM Interpretation: Performing Lab: Notes/Report: [facility] , SARS-CoV-2 Ag NEGATIVE NEGATIVE the detection of proteins from SARS-CoV-2, not for any other authorized for the duration of the declaration that CLIA that meet the requirements to perform moderate or high complexity testing. This test has been authorized only for and/or diagnosis of Covid-19 under section 564(b)(1) of the This test has not been FDA cleared or approved, but has been terminated or authorization is revoked sooner. circumstances exist justifying the authorization of (EUA) for use by authorized laboratories certified under authorized by the FDA under an Emergency Use Authorization Act, 21 U.S.C. 360bbb-3(b)(1), unless the declaration is emergency use of in vitro diagnostic tests for detection viruses or pathogens. The emergency use of this test is Performing Lab: see note ML - [facility] LB CT sinus wo con Reviewed date:09/20/2024 11:50:08 AM Interpretation: Performing Lab: Notes/Report: Source Facility: [place] [address] CT Scan Report Signed Patient: CARMELITA CASON MR#: [id number] : 1990 Acct:[id number] Age/Sex: 34 / F ADM Date: 09/20/24 Loc: ER Attending Dr: Ordering Physician: Kimmie Santacruz D.O. Date of Service: 09/20/24 Procedure(s): CT sinus wo con Accession Number(s): [id number] cc: FARIDEH GAR [place] [address] Patient Name: CARMELITA CASON MRN: [id number] date: 1990 Sex: F Assigned Patient Location: ER Current Patient Location: Accession/Order Number: [id number] Exam Date: 09/20/2024 07:30 Report Date: 09/20/2024 08:28 At the request of: KIMMIE SANTACRUZ Procedure: CT sinus wo con EXAM: CT sinus wo con HISTORY: headache/fever COMPARISON: None. TECHNIQUE: Axial noncontrast CT imaging of the paranasal sinuses was performed with coronal and sagittal reformats. This CT exam was performed using one or more of the following dose reduction techniques: Automated exposure control, adjustment of the MA and/or kV according to patient size, or use of iterative reconstruction technique. FINDINGS: Maxillary sinuses: The maxillary sinuses are clear. The maxillary infundibulum are widely patent. Ethmoid sinus: Ethmoid sinuses are clear. Frontal sinuses: Frontal sinuses are clear. Frontal sinus drainage pathways are widely patent. Sphenoid sinus: Sphenoid sinuses are clear. The sphenoethmoidal recesses are widely patent. There is sellar pneumatization of the sphenoid sinus. No onodi cell. Nasal cavity/midline: There is mild anterior rightward nasal septal deviation. Symmetric base of the olfactory fossa. The bilateral anterior ethmoid notches are protected. Additional comments: Visualized portions of the intracranial structures are unremarkable. The orbits are unremarkable. CT/CT sinus wo con IMPRESSION: No significant paranasal sinus disease. Paranasal sinus drainage pathways are widely patent. Electronically authenticated by: STEF BARKLEY Date: 09/20/2024 08:28 Dictated By: Stef Barkley M.D. Signed By: 09/20/24830 DD/ 7 TD/TT: Client Executive: [place] [address] CT Scan Report Signed Patient: JUNAID CASON SA MR#: [id number] : 1990 Acct:[id number] Age/Sex: 34 / F ADM Date: 09/20/24 Loc: ER Attending Dr: Ordering Physician: Kimmie Santacruz D.O. Date of Service: 09/20/24 Procedure(s): CT sin us wo con Accession Number(s): [id number] cc: FARIDEH GAR [place] [id number] Patient Name: CARMELITA CASON MRN: [id number]:[id number] date: 1990 Sex: F Assigned Patient Location: ER Current Patient Location: Accession/Order Numb er: [id number] Exam Date: 07:30 Report Date: 09/20/2024 08:28 At the request of: KIMMIE SANTACRUZ Procedure: CT sinus wo con EXAM: CT sinus wo con HISTORY: headache/fever COMPARISON: None. TECHNIQUE: Axial noncontrast CT imaging of the paranasal sinuses was performed with coronal and sagittal reformats. This CT exam was performed using one or more of the followin g dose reduction techniques: Automated exposure control, adjustment of the MA and/or kV according to patient size, or use of iterative reconstruction technique. FINDINGS: Maxillary sinuses: T he maxillary sinuses are clear. The maxillary infundibulum are widely patent. Ethmoid sinus: Ethmo id sinuses are clear. Frontal sinuses: Frontal sinuses are clear. Frontal sinus drainage pathways are widely patent. Sphenoid sinus: Sphenoid sinuses are clear. The sphenoethmoidal recesses are widely patent. There is sellar pneumatization of the sphenoid sinus. No onodi cell. Nasal cavity/midline : There is mild anterior rightward nasal septal deviation. Symmetric base of th e olfactory fossa. The bilateral anterior ethmoid notches are protected. Additional comments: Visualized portions of the intracranial structures are unremarkable. The orbits are unremarkable. CT/CT sinus wo con IMPRESSION: No significant paranasal sinus disease. Paranasal sinus drainage pathways are widely patent. Electronically authenticated by: STEF BARKLEY Date: 09/20/2024 08:28 Dictated By: Stef Barkley M.D. Signed By: 09/20/24830 DD/ 7 TD/TT: Client Executive: PAYTON MARI HCG Reviewed date:11/29/2024 11:58:32 AM Interpretation: Performing Lab: Notes/Report: [facility] , HCG Quantitative 3026 10,000-100,000 2-3 MONTHS 500-10,000 3-4 WEEKS 50-500 1-2 WEEKS 1,000-50,000 4-5 WEEKS 100-5,000 2-3 WEEKS 10,000-100,000 5-6 WEEKS 5-50 0.2-1 WEEK 15,000-200,000 6-8 WEEKS Performing Lab: see note ML - [facility] LB CBC AUTO DIFF Reviewed date:05/21/2025 04:53:53 PM Interpretation: Performing Lab: Notes/Report: [facility] , White Blood Count 11.8 4.0-11.0 10 3/uL Red Blood Count 3.86 4.20-5.40 10 6/uL Hemoglobin 10.8 12.0-16.0 g/dL Hematocrit 30.6 36.0-48.0 % Mean Corpuscular Volume 79.3 81.0-99.0 fL Mean Corpuscular Hemoglobin 28.0 26.7-34.0 pg Mean Corpuscular HGB Conc 35.3 29.9-35.2 g/dL Red Cell Distribution Width 12.7 11.0-15.0 % Platelet Count 176 150-450 10 3/uL Mean Platelet Volume 11.1 9.5-13.5 fL Neutrophils Percent Auto 66.6 43.0-75.0 % Lymphocytes Percent Auto 25.1 20.5-60.0 % Monocytes Percent Auto 5.6 1.7-12.0 % Eosinophils Percent Auto 1.5 0.9-7.0 % Basophils Percent Auto 0.4 0.2-2.0 % Immature Granulocytes Pct Auto 0.8 0.0-0.5 % Neutrophils Absolute Auto 7.9 1.4-6.5 10 3/uL Lymphocytes Absolute Auto 3.0 1.2-3.8 10 3/uL Monocytes Absolute Auto 0.7 0.3-0.8 10 3/uL Eosinophils Absolute Auto 0.2 0.0-0.7 10 3/uL Basophils Absolute Auto 0.1 0.0-0.1 10 3/uL Immature Granulocytes Abs Auto 0.10 0.00-0.03 10 3/uL Performing Lab: see note ML - [facility] LB DRUG SCREEN RAPID (URINE) Reviewed date:05/21/2025 04:53:53 PM Interpretation: Performing Lab: Notes/Report: [facility] , Cannabinoid Screen Urine NEGATIVE NEGATIVE Phencyclidine Screen Urine NEGATIVE NEGATIVE Cocaine Screen Urine NEGATIVE NEGATIVE Methamphetamines Screen Urine NEGATIVE NEGATIVE Opiate Screen Urine NEGATIVE NEGATIVE Amphetamine Screen Urine NEGATIVE NEGATIVE Benzodiazepines Screen Urine NEGATIVE NEGATIVE Tricyclic Antidepressant Urine NEGATIVE NEGATIVE Methadone Screen Urine NEGATIVE NEGATIVE Barbiturates Screen Urine NEGATIVE NEGATIVE Oxycodone Screen Urine NEGATIVE NEGATIVE Buprenorphine Screen Urine POSITIVE NEGATIVE BAR (Barbiturates): 200 ng/mL OPI (Opiates): 100 ng/mL BRITTANY (Cocaine): 150 ng/mL FOLLOWS: MTD (Methadone): 200 ng/mL BUP (Buprenorphine): 10 ng/mL OXY (Oxycodone): 100 ng/mL TCA (Trycyclic Antidepressants): 300 ng/mL AMP (Amphetamine): 500 ng/mL THC (Cannabinoids): 50 ng/mL PCP (Phencyclidine): 25 ng/mL mAMP (Methamphetamine): 500 ng/mL DRUG CLASS TEST SYSTEM CUT-OFF CONCENTRATIONS ARE BZO (Benzodiazepines): 150 ng/mL Performing Lab: see note [facility] GLYCOHEMOGLOBIN A1C Reviewed date:05/21/2025 04:53:53 PM Interpretation: Performing Lab: Notes/Report: [facility] , Glycohemoglobin A1C 4.7 4.5-6.2 % > 7.0 ADA THERAPEUTIC TARGET < 7.0 ACTION SUGGESTED ADA RECOMMENDED LIMIT 4.0 - 6.0 Estimated Average Glucose 88 Performing Lab: see note [facility] Buprenorphine Confirm, Urine Reviewed date:05/24/2025 12:34:03 PM Interpretation: Performing Lab: Notes/Report: [facility] , Buprenorphine Positive . Confirmation performed by Mass Spectrometry Buprenorphine Positive . Buprenorphine Conf, MS, UR 525 Cutoff=10 ng/mL Norbuprenorphine Positive . Norbuprenorphine Conf, MS,UR 905 Cutoff=10 ng/mL Performed at: [facility] Play Therapist: Soledad Mendieta PhD, Phone: [phone] [address] [place], [place] [id number] Performing Lab: see note [facility] Urine Culture, Routine Reviewed date:05/23/2025 08:29:33 AM Interpretation: Performing Lab: Notes/Report: [facility] , Urine Culture, Routine See Below For Report Urine Culture, Routine Urine Culture, Routine Culture shows les s than 10,000 colony forming units of bacteria per Urine Culture, Routine Urine Culture, Routine milliliter of uri ne. This colony count is not generally considered Urine Culture, Routine Urine Culture, Routine to be clinically significant. Urine Culture, Routine Urine Culture, Routine Performed at: [facility] Urine Culture, Routine Urine Culture, Routine [address] [place] [phone] Urine Culture, Routine Urine Culture, Routine Play Therapist: Isrrael Pryor PhD, Phone: [phone] Urine Culture, Routine Performing Lab: see note [facility] SEE REPORT - Retail Department Reset Id information not found for OBX-specific print producer legend HBsAg Screen Reviewed date:05/22/2025 02:13:41 PM Interpretation: Performing Lab: Notes/Report: [facility] , HBsAg Screen Negative Negative Performed at: [facility] [address] [place] [id number] Play Therapist: Aric Pryor PhD, Phone: [phone] Performing Lab: see note - [facility] LB Rapid Plasma Reagin, Quant Reviewed date:05/22/2025 02:13:20 PM Interpretation: Performing Lab: Notes/Report: [facility] , Rapid Plasma Reagin, Quant Non Reactive NonRea<1:1 titer treated for syphilis infection. To screen for syphilis infection, a reflex cascade that includes both RPR and a ([id number]). Performed at: [address] [id number] treponema-specific assay should be utilized, such as Treponema pallidum (Syphilis) Screening [place] ([id number]) or Play Therapist: Arci Pryor PhD, Phone: [phone] RPR and Confirmatory Treponema pallidum Antibodies Please Note: This test does not meet current guidelines for screening and diagnosis of syphilis. This test is intended for following treatment response in patients being Rapid Plasma Reagin (RPR) Test With Reflex to Quantitative Performing Lab: see note [facility] HIV Ab/p24 Ag with Reflex Reviewed date:05/22/2025 08:19:07 AM Interpretation: Performing Lab: Notes/Report: [facility] , HIV Ab/p24 Ag Screen Non Reactive Non Reactive HIV-1/HIV-2 antibodies and HIV-1 p24 antigen were NOT HIV Negative Play Therapist: Aric Pryor PhD, Phone: [phone] [address] [place] [phone] detected. There is no laboratory evidence of HIV infection. Performed at: [facility] Performing Lab: see note - [facility] LB Type and Screen Reviewed date:05/21/2025 04:53:53 PM Interpretation: Performing Lab: Notes/Report: [facility] , Blood Type B Positive Antibody Screen NEGATIVE US OB anatomy Reviewed date:04/09/2025 01:25:12 PM Interpretation: Performing Lab: Notes/Report: Source Facility: [facility] [place] [address] [place] [address] Ultrasound Report Signed Patient: CARMELITA CASON MR#: [id number] : 1990 Acct:[id number] Age/Sex: 34 / F ADM Date: 04/09/25 Loc: US Attending Dr: Paradise Olvera Ordering Physician: Paradise Olvera Date of Service: 04/09/25 Procedure(s): US OB anatomy Accession Number(s): [id number] cc: Paradise Olvera; FARIDEH GAR [address] [address] Patient Name: CARMELITA CASON MRN: [facility]:[id number] date: 1990 Sex: F Assigned Patient Location: Current Patient Location: US Accession/Order Number: [id number] Exam Date: 04/09/2025 12:20 Report Date: 04/09/2025 [...] all 4 extremities were surveyed by the casting finisher. No abnormalities were detected. The stomach, bladder, [...] Zelaya M.D. 04/09/2025 1:01 PM Dictation Location: [place] [address] Electronically authenticated by: [id number] Y Date: 04/09/2025 13:01 Dictated By: Raine Zelaya M.D. Signed By: 04/09/25 1304 DD/ 1301 TD/TT: Client Executive: [place] [address] Ultrasound Report Signed Patient: JUNAID CASON SA MR#: [id number] : 1990 Acct:[id number] Age/Sex: 34 / F ADM Date: 04/09/25 Loc: US Attending Dr: Paradise Olvera Ordering Physician: Paradise Olvera Date of Service: 04/09/25 Procedure(s): US OB anatomy Accession Number(s): [id number] cc: Paradise Olvera; FARIDEH GAR [address] [address] Patient Name: CARMELITA CASON MRN: [id number] date: 1990 Sex: F Assigned Patient Location: Current Patient Location: US Accession/Order Numb er: [id number] Exam Date: 04/09/2025 12:20 Report Date: 04/09/2025 13:01 At the request of: PARADISE OLVERA Procedure: US OB anatomy CLINICAL DATA: Screening for anatomy COMPARISON: 01/22/2025 ULTRASOUND OB ANATOMY There is a single li ve intrauterine gestation in cephalic presentation. The amniotic fluid volum e is subjectively normal. There is a posterior placenta. A placental band was noted. There is cardiac and somatic activity with heart rate of 135 bp m. The neural axis and all 4 extremities were surveyed by the casting finisher. No abnormalities were detected. The stomach, bladder, kidneys, three-vesse l cord with insertion, four-chamber heart with right and left outflow tracts, diaphragm, facial features and reported male genitalia were seen. The following measurements were obtained: Biparietal diameter 6.1cm 24 weeks 4 days 57% Head circumference 22.7 cm 24 weeks 5 days 46% Abdominal circumfere nce 20.6 cm 25 weeks 1 day 69% Femur length 4.0 cm 23 weeks 0 days 8% The composite ultrasound age based on these measurements is 24 weeks 3 days +/- 1 week 5 days. T he estimated date of delivery is July 27, 2025. This correlates with dates based on the prior. The estimated weight is 1 lb. 8 oz. +/- 4 ounces (42%) US/US OB anatomy IMPRESSION: SINGLE LIVE INTRAUTERINE GESTATION WITH ULTRASOUND AGE OF 24 WEEKS 3 DAYS. UNREMARKABLE ANATOMY SURVEY INCIDENTAL PLACENTAL BAND ULTRASOUND OB CERVIC AL LENGTH The cervix was evaluated with the transvaginal probe. The cervix is closed and measures approximately 3.5 cm in diameter. There is no evidence of previa. IMPRESSION: CLOSED CERVIX, UNREMARKABLE IN APPEARANCE. Impression dictated by: Raine Zelaya M.D. 04/09/2025 1:01 PM Dictation Location: [place] [address] Electronically authenticated by: [id number] Y Date: 04/09/2025 13:01 Dictated By: Raine Zelaya M.D. Signed By: 04/09/25 1304 DD/ 1301 TD/TT: Client Executive: US OB cervical length Reviewed date:04/09/2025 01:25:12 PM Interpretation: Performing Lab: Notes/Report: Source Facility: [place] [address] Ultrasound Report Signed Patient: CARMELITA CASON MR#: [id number] : 1990 Acct:[id number] Age/Sex: 34 / F ADM Date: 04/09/25 Loc: US Attending Dr: Paradise Olvera Ordering Physician: Paradise Olvera Date of Service: 04/09/25 Procedure(s): US OB cervical length Accession Number(s): [id number] cc: FARIDEH Quinonez [place] [address] Patient Name: CARMELITA CASON MRN: [id number]:[id number] date: 1990 Sex: F Assigned Patient Location: US Current Patient Location: US Accession/Order Number: [id number] Exam Date: 04/09/2025 12:20 Report Date: 04/09/2025 [...] all 4 extremities were surveyed by the casting finisher. No abnormalities were detected. The stomach, bladder, [...] Zelaya M.D. 04/09/2025 1:01 PM Dictation Location: [place] [address] Electronically authenticated by: [id number] Y Date: 04/09/2025 13:01 Dictated By: Raine Zelaya M.D. Signed By: 04/09/25 1304 DD/ 1301 TD/TT: Client Executive: [place] [address] Ultrasound Report Signed Patient: JUNAID CASON SA MR#: [id number] : 1990 Acct:[id number] Age/Sex: 34 / F ADM Date: 04/09/25 Loc: US Attending Dr: Paradise Olvera Ordering Physician: Paradise Olvera Date of Service: 04/09/25 Procedure(s): US OB cervical length Accession Number(s): [id number] cc: Paradise Olvera; FARIDEH GAR [address] [address] Patient Name: CARMELITA CASON MRN: [facility]:[id number] date: 1990 Sex: F Assigned Patient Location: US Current Patient Location: US Accession/Order Numb er: [id number] Exam Date: 04/09/2025 12:20 Report Date: 04/09/2025 13:01 At the request of: PARADISE OLVERA Procedure: US OB anatomy CLINICAL DATA: Screening for anatomy COMPARISON: 01/22/2025 ULTRASOUND OB ANATOMY There is a single li ve intrauterine gestation in cephalic presentation. The amniotic fluid volum e is subjectively normal. There is a posterior placenta. A placental band was noted. There is cardiac and somatic activity with heart rate of 135 bp m. The neural axis and all 4 extremities were surveyed by the casting finisher. No abnormalities were detected. The stomach, bladder, kidneys, three-vesse l cord with insertion, four-chamber heart with right and left outflow tracts, diaphragm, facial features and reported male genitalia were seen. The following measurements were obtained: Biparietal diameter 6.1cm 24 weeks 4 days 57% Head circumference 2 2.7 cm 24 weeks 5 days 46% Abdominal circumfere nce 20.6 cm 25 weeks 1 day 69% Femur length 4.0 cm 23 weeks 0 days 8% The composite ultrasound age based on these measurements is 24 weeks 3 days +/- 1 week 5 days. T he estimated date of delivery is July 27, 2025. This correlates with dates based on the prior. The estimated weight is 1 lb. 8 oz. +/- 4 ounces (42%) US/US OB cervical length IMPRESSION: SINGLE LIVE INTRAUTERINE GESTATION WITH ULTRASOUND AGE OF 24 WEEKS 3 DAYS. UNREMARKABLE ANATOMY SURVEY INCIDENTAL PLACENTAL BAND ULTRASOUND OB CERVIC AL LENGTH The cervix was evaluated with the transvaginal probe. The cervix is closed and measures approximately 3.5 cm in diameter. There is no evidence of previa. IMPRESSION: CLOSED CERVIX, UNREMARKABLE IN APPEARANCE. Impression dictated by: Raine Zelaya M.D. 04/09/2025 1:01 PM Dictation Location: [place] [address] Electronically authenticated by: [id number] Y Date: 04/09/2025 13:01 Dictated By: Raine Zelaya M.D. Signed By: 04/09/25 1304 DD/ 1301 TD/TT: Client Executive: US OB <= 14 weeks fetus Reviewed date:01/22/2025 04:10:34 PM Interpretation: Performing Lab: Notes/Report: Source Facility: [place] [address] Ultrasound Report Signed Patient: CARMELITA CASON MR#: [id number] : 1990 Acct:[id number] Age/Sex: 34 / F ADM Date: 01/22/25 Loc: US Attending Dr: Mee Pringle D.O. Ordering Physician: Mee Pringle D.O. Date of Service: 01/22/25 Procedure(s): US OB <= 14 weeks fetus Accession Number(s): [id number] cc: FARIDEH GAR ; Mee Pringle D.O. The [place] [address] Patient Name: CARMELITA CASON MRN: [facility]:[id number] date: 1990 Sex: F Assigned Patient Location: Current Patient Location: US Accession/Order Number: [id number] Exam Date: 01/22/2025 14:49 Report Date: 01/22/2025 [...] Sorto Jr., D.O.01/22/2025 2:50 PM Dictation Location: [place] [address] Electronically authenticated by: [id number] Y Date: 01/22/2025 14:50 Dictated By: Serafin Sorto M.D. Signed By: 01/22/25 145 DD/ 1450 TD/TT: Client Executive: [place] [address] Ultrasound Report Signed Patient: JUNAID CASON SA MR#: [id number] : 1990 Acct:[id number] Age/Sex: 34 / F ADM Date: 01/22/25 Loc: US Attending Dr: Mee Pringle D.O. Ordering Physician: Mee Pringle D.O. Date of Service: 01/22/25 Procedure(s): US OB <= 14 weeks fetus Accession Number(s): [id number] cc: FARIDEH GAR ; Mee Pringle D.O. [place] [id number] Patient Name: CARMELITA CASON MRN: [id number] date: 1990 Sex: F Assigned Patient Location: Current Patient Location: US Accession/Order Numb er: [id number] Exam Date: 01/22/2025 14:49 Report Date: 01/22/2025 14:50 At the request of: MEE PRINGLE DO Procedure: US OB <= 14 weeks fetus OB ultrasound. Reason for exam:Positive test. Comparison:None. Technique: Transabdominal imaging of the gravid uterus was obtained. Findings: Single live intrauterine measuring 13 weeks 2 days by CRL GIAN 07/28/2025. hea rt rate 1 78 bpm. No free fluid is seen. Ovaries not visualized. US/US OB <= 14 weeks fetus Impression: Single live intrauterine 13 weeks 2 days by CRL GIAN 07/28/2025. Impression dictated by: Serafin Sorto Jr., D.O.01/22/2025 2:50 PM Dictation Location: [place] [address] Electronically authenticated by: [id number] Y Date: 01/22/2025 14:50 Dictated By: Serafin Sorto M.D. Signed By: 01/22/25 1453 DD/ 1450 TD/TT: Client Executive: SARS-CoV-2 Ag* Reviewed date:07/10/2024 01:40:12 PM Interpretation: Performing Lab: Notes/Report: [facility] , SARS-CoV-2 Ag POSITIVE NEGATIVE (EUA) for use by authorized laboratories certified under viruses or pathogens. The emergency use of this test is circumstances exist justifying the authorization of CLIA that meet the requirements to perform moderate or high terminated or authorization is revoked sooner. This test has not been FDA cleared or approved, but has been emergency use of in vitro diagnostic tests for detection complexity testing. This test has been authorized only for authorized by the FDA under an Emergency Use Authorization authorized for the duration of the declaration that and/or diagnosis of Covid-19 under section 564(b)(1) of the Act, 21 U.S.C. 360bbb-3(b)(1), unless the declaration is the detection of proteins from SARS-CoV-2, not for any other Performing Lab: see note ML - [facility] US OB BPP w non-stress Reviewed date:06/05/2025 03:34:23 PM Interpretation: Performing Lab: Notes/Report: Source Facility: [facility] [place] [address] [place] [address] Ultrasound Report Signed Patient: CARMELITA CASON MR#: [id number] : 1990 Acct:[id number] Age/Sex: 34 / F ADM Date: 06/05/25 Loc: US Attending Dr: Mee Pringle D.O. Ordering Physician: Mee Pringle D.O. Date of Service: 06/05/25 Procedure(s): US OB BPP w non-stress Accession Number(s): [id number] cc: FARIDEH GAR ; Mee Pringle D.O. The [place] [id number] Patient Name: CARMELITA CASON MRN: [id number] date: 1990 Sex: F Assigned Patient Location: US Current Patient Location: Accession/Order Number: [id number] Exam Date: 06/05/2025 11:53 Report Date: 06/05/2025 12:03 At the request of: MEE PRINGLE DO Procedure: US OB BPP w non-stress Biophysical profile. Reason for exam: History of opioid abuse COMPARISON: None TECHNIQUE: Transabdominal imaging of the gravid uterus was obtained. FINDINGS: The casting finisher reports a BPP of 8 out of 8. ELIZABETH is normal at 21 cm. heart rate 135 bpm. US/US OB BPP w non-stress IMPRESSION: BPP 8 out of 8. Impression dictated by: Serafin Sorto Jr., D.O. 06/05/2025 12:03 PM Dictation Location: [place] [address] Electronically authenticated by: [id number] Y Date: 06/05/2025 12:03 Dictated By: Serafin Sorto M.D. Signed By: 06/05/25 1206 DD/ 1203 TD/TT: Client Executive: [place] [address] Ultrasound Report Signed Patient: JUNAID CASON SA MR#: [id number] : 1990 Acct:[id number] Age/Sex: 34 / F ADM Date: 06/05/25 Loc: US Attending Dr: Mee Pringle D.O. Ordering Physician: Mee Pringle D.O. Date of Service: 06/05/25 Procedure(s): US OB BPP w non-stress Accession Number(s): [id number] cc: FARIDEH GAR ; Mee Pringle D.O. [place] [id number] Patient Name: CARMELITA CASON MRN: [id number] date: 1990 Sex: F Assigned Patient Location: US Current Patient Location: Accession/Order Numb er: [id number] Exam Date: 06/05/2025 11:53 Report Date: 06/05/2025 12:03 At the request of: MEE PRINGLE DO Procedure: US OB fet al BPP w non-stress Biophysical profile. Reason for exam: History of opioid abuse COMPARISON: None TECHNIQUE: Transabdominal imaging of the gravid uterus was obtained. FINDINGS: The casting finisher reports a BPP of 8 out of 8. ELIZABETH is normal at 21 cm. heart rate 135 bpm. US/US OB BPP w non-stress IMPRESSION: BPP 8 ou t of 8. Impression dictated by: Serafin Sorto Jr., D.O. 06/05/2025 12:03 PM [facility]ictation [facility] Electron[facility] authenticated by: [id number] Y Date: 06/05/2025 12:03 Dictated By: Serafin Sorto M.D. Signed By: 06/05/25 1206 DD/ 1203 TD/TT: Client Executive: HCV Antibody RFX to Quant PC R Reviewed date:05/24/2025 03:14:14 PM Interpretation: Performing Lab: Notes/Report: [facility] , HCV Ab Reactive Non Reactive Hepatitis C Quantitation 89408 . IU/mL HCV log10 4.819 . Result Units: l og10 IU/mL Test Information: Comment . The quantitative range of this assay is 15 IU/mL to 100 million IU/mL. Interpretation: Comment . is consistent with active infection. [address] [place] [address] [phone] [place] [phone] Performed at: [facility] Positive HCV antibody screen with the presence of HCV RNA Performed at: [facility] Play Therapist: Miles Owens MD, Phone: [phone] Play Therapist: Aric Pryor PhD, Phone: [phone] Performing Lab: [facility] note - [facility] LB RUBELLA AB IGG Reviewed date:05/24/2025 03:14:14 PM Interpretation: Performing Lab: Notes/Report: [facility] , Rubella Antibodies, IgG <0.90 Immune > 0.99 index Non-immune <0.90 Play Therapist: Aric Pryor PhD, Phone: [phone] Immune >0.99 [address] [place], [place] [phone] Performed at: CB - [facility] Power Equivocal 0.90 - 0.99 Performing Lab: see note LC - [facility] LB Reason For Referral Reason muscle spasm back, h x bulging disc L4-5 Diagnosis 1 Muscle spasm of back (M62.830) Referral Organization [facility] Medicine Referring Provider First Name Farideh Referring Provider Last Name Sarah Referring Provider Speciality Family Med icine Referred Provider TB, Physical Therap y Referred Provider Specialty Physical The rapist Referral Priority Routine Medications Medication SIG (Take, Route, Frequency, Duration) Notes Start Date End Date Status ALPRAZolam 0.25 MG 1 tablet Orally once a day prn for 30 days 06/19/2024 Unknown Ibuprofen 800 MG 1 tablet with food or milk as needed Orally every 8 hrs as needed for 14 days 11/15/2023 Unknown Gabapentin 100 MG as directed for 9 days take 3 capsules TID for 3 days than 2 capsules TID for 2 days than 1 capsule TID for 2 days than 1 capsule daily for 2 days than stop med Unknown tiZANidine HCl 4 MG 1 tablet [...] [maximum: 40 mg/day (80 sprays)] 10/20/2024 Unknown Immunizations Vaccine Route Administration Date Status Comme nts DTP - historic Unknown 1992 Administered DTP - historic Unknown 02/18/1993 Administered DTP - historic Unknown 04/22/1993 Administered DTP - historic Unknown 07/11/1994 Administered Hep B, Adult, Dose 1 Unknown 02/18/1993 Administered Hep B, Adult, Dose 1 Unknown 04/22/1993 Administered Hep B, Adult, Dose 1 Unknown 07/11/1994 Administered HIB, unspecified formulation Unknown 1992 Adminis tered HIB, unspecified formulation Unknown 02/18/1993 Adminis tered HIB, unspecified formulation Unknown 04/23/1993 Adminis tered HIB, unspecified formulation Unknown 07/11/1994 Adminis tered MMR II Unknown 07/11/1994 Administered Polio Virus, IPV Unknown 08/15/2001 Administered Polio Virus, OPV - historic Unknown 1992 Administ ered Polio Virus, OPV - historic Unknown 1992 Administ ered Polio Virus, OPV - historic Unknown 02/18/1993 Administ ered Polio Virus, OPV - historic Unknown 07/11/1994 Administ ered SARS-COV-2 (COVID 19 Pfizer 30mcg/0.3mL) Unknown 07/23/2021 Administered Social History Tobacco Use: Social History Observation Description Date Details (start date - stop date) Current Smoker 11/01/2007 - NA Tobacco Use/Smoking Question Answer Notes Patient is a current smoker When did you start smoking? 11/01/2007 How often do you smoke cigarettes? every day Alcohol Screen (Audit-C) Question Answer Notes Did you have a drink containing alcohol in the p ast year? No Points 0 Interpretation Negative AUDIT-C (Standard) Question Answer Notes Did you have a drink containing alcohol in the p ast year? No Points 0 Interpretation Negative Problems Problem Type SNOMED Code ICD Code Onset Dates Problem Status W/U Status Risk Notes Problem Anxiety (01184140) Anxiety (F41.9) Active confirmed Problem Bipolar disorder (26906580) Bipolar disorder (F31.9) Active confirmed Problem Smoking (33174361) Smoking (F17.200) Active confirmed Problem Major depressive disorder, single episode (83349251) Major depressive disorder, single episode (F32.9) Active confirmed Problem Loss of taste (19315621) Loss of taste (R43.2) Active confirmed Problem Attention deficit hyperactivity disorder (353301039) ADHD (F90.9) Active confirmed Vital Signs Temperature 98.4 degrees Fahrenheit 01/08/2025 Blood pressure diastolic 64 mm Hg 03/02/2025 Height 65 in 03/02/2025 Blood pressure systolic 102 mm Hg 03/02/2025 Weight 148.2 lbs 03/02/2025 BMI 24.66 kg/m2 03/02/2025 Procedures Procedure Date Ordered Date Performed Result Body Sit e CARDIO Stress Test - Treadmill Exercise 10/20/2024 N/A Encounters Encounter Location Date Provider Diagnosis [facility] [address] [facility] [place] [address] 07/10/2024 Farideh Gar [facility] [address] [facility] [place] [address] 09/19/2024 Farideh Gar Back pain M54.9 [facility] [address] [facility] [place] [address] 02/15/2025 Farideh Gar [facility] [address] [facility] [place] [address] 02/21/2025 Farideh Gar Anxiety F41.9 [facility] [address] [facility] [place] [address] 04/04/2025 Farideh Gar Anxiety F41.9 [facility] [address] [facility] [place] [address] 05/30/2025 Farideh Gar [facility] [address] [facility] [place] [address] 06/19/2024 Farideh Gar Anxiety F41.9 [facility] [address] [facility] [place] [address] 07/10/2024 Farideh Gar Acute cough R05.1 [facility] [address] [facility] [place] [address] 10/20/2024 Farideh Gar Chest pressure R07.8 9 ; Anxiety F41.9 and Smoking F17.200 [facility] [address] [facility] [place] [address] 11/17/2024 Farideh Gar Muscle spasm of back M62.830 [facility] [address] [place] [address] 01/08/2025 Farideh Gar Loss of taste R43.2 ; URI (upper respiratory infection) J06.9 and Body aches R52 [facility] [address] [place] [address] 03/02/2025 Farideh Gar [facility] physical exam Z02.0 Assessments Encounter Date Diagnosis (ICD Code) Assessment Notes Treatment Notes Treatment Clinical Notes Section Notes 03/02/2025 School physical exam (ICD-10 - Z02.0) ok for clinicals form filled out 06/19/2024 Anxiety (ICD-10 - F41.9) 07/10/2024 Acute cough (ICD-10 - R05.1) 09/19/2024 Back pain (ICD-10 - M54.9) 02/21/2025 Anxiety (ICD-10 - F41.9) 04/04/2025 Anxiety (ICD-10 - F41.9) 10/20/2024 Chest pressure (ICD-10 - R07.89) 10/20/2024 Anxiety (ICD-10 - F41.9) med helps CSA signed Oarrs REVIEWED 11/17/2024 Muscle spasm of back (ICD-10 - M62.830) 01/08/2025 Loss of taste (ICD-10 - R43.2) 01/08/2025 URI (upper respiratory infection) (ICD-10 - J06.9) likely viral otc meds, rest , push fluids try Mucinex ok for OWN flu Covid neg if not improving, worsens , fu 01/08/2025 Body aches (ICD-10 - R52) 10/20/2024 Smoking (ICD-10 - F17.200) 03/02/2025 Other discussed unplanned , encouragment given Plan Of Treatment Pending Test Test Name Order Date CARDIO Stress Test - Treadmill Exercise 10/20/2024 COVID-19, Flu A+B IH 01/08/2025 C. DIFF PCR 03/22/2024 Covid-19 PCR (CVDTBH) 07/10/2024 STOOL CULTURE 03/22/2024 MRI LSPINE WO CON 05/10/2023 XR lumbar spine 2-3V 11/17/2024 Insurance Providers Payer Name Payer Address Payer Phone Subscriber Number Group Number Insured Name Patient Relationship to Insured Coverage Start Date Coverage End Date [employer] [place] [employer] [address] [place] [address] [id number] Carmelita Cason Self - patient is the insured Medical (General) History Surgical History Surgery Date(Month/Year) D&C
--- OUTSIDE RECORDS SUMMARY | 2025-06-08 11:22 | XMS_ITS | Encounter Summary ---
Author Organization [facility] Address [address] [place] [address] Care Team Providers Care Table Maker Name Role Phone Unavailable Primary Care Provider Unavailabl e Encounter Details Date Type Department Care Team (Late st Contact Info) Description 07/09/2015 Abstract [facility] [address] [facility] [place] [address] Tony Pringle DO [address], [facility]11 Social History Tobacco Use Types Packs/Day [...] EDT Routine HALEY CAMPBELL [address] [place] [address] Tony Pringle DO [address], [facility] documented as of this encounter Visit Diagnoses Not on filedocumented in this encounter
--- OUTSIDE RECORDS SUMMARY | 2025-06-08 11:22 | XMS_ITS | Clinical Summary ---
Author Organization [facility] BasisCode [facility] Address [facility] [address] [place] [address] Care Team Providers Care Informatics Manager Name Role Phone No Pcp, No [...] AM EDT Office Visit Maternal- Medicine at [facility] [address] [place] [phone] Nohemy Hernandez MD History of placental abruption (Primary Dx); Hepatitis C virus infection without hepatic coma, unspecified chronicity 05/30/2025 9:15 AM EDT - 05/30/2025 11:59 PM EDT Hospital Encounter [facility] - [facility] US Imaging [address] [place] [address] Screening, , for anatomic survey Discharge Disposition: Home 05/30/2025 Orders Only Maternal- Medicine at [facility] [address] [place] [address] Paradise Raya LPN 05/30/2025 Travel 05/30/2025 Abstract [facility]aternal- Medicine at [facility] [address] [place] [address] Nohemy Hernandez MD 05/30/2025 Orders Only Maternal- Medicine at [facility] [address] [place] [address] Ref Prov, Not In System 05/30/2025 Abstract [facility]aternal- Medicine at [facility] [address] [place] [address] Nohemy Hernandez MD from Last 3 Months [...] Info) Description 07/05/2025 1:00 PM EDT Appointment [facility] - [facility] US Imaging [address] [place] [address] 07/05/2025 2:30 PM EDT Office Visit Maternal- Medicine at [facility] [address] [place] [address] Tasia Dowd MD [address] [facility] [address] [place] [address] Health Maintenance Due Date Last Done Comments [...] Name Priority Date/Time Associated Diagnosis Comments US [facility] COMPREHENSIVE ANATOMIC SURVEY Routine 05/30/2025 10:52 AM [...] from Last 3 Months Results * US [facility] COMPREHENSIVE ANATOMIC SURVEY (05/30/2025 10:52 AM EDT) Anatomical Region Laterality Modality OB-DEFENSIVE LINE COACH Ultrasound 05/30/2025 9:40 AM EDT Narrative 05/30/2025 12:58 PM EDT NAME: YOAV MUNOZ : 1990 SEX: F Accession Number: [id number] ORDERING PHYSICIAN: MEE PRINGLE REFERRING PHYSICIAN: MEE PRINGLE Coding ----- --------- Procedures 25052: Ultrasound, uterus, real time with image documentation, and maternal evaluation plus detailed anatomic examination, transabdominal approach;single or first gestation Indication ----- --------- Screening for Anatomic Survey, Hepatitis C in , Malformation of placenta- complete circumvallate,History of prior with delivery- placental abruption, Previous History ----- --------- OB History 4. Para 3 [id number] Maternal Assessment ----- --------- Physical Exam Initial [...] EFW (oz) 14 oz EFW by: Hadlock ([id number]) Extended Tibia 48.3 mm 29w 1d 6% Mara Manager Wireless 2.3 mm CM 9.6 mm 95% Nicolaides [...] view. RVOT view. LVOT view. 3-vessel view. 9-svspmp-xjykbyo view. Situs. Bicaval view. Interventricular septum. Great [...] placenta noted. Recommendations ----- --------- Please see [facility] documentation from today. The patient is scheduled in four week(s) to complete anatomic survey. Subsequent follow up or other follow up as clinically determined by primary OB provider unless otherwise specified by [facility]. Results forwarded to ordering provider so they can follow up with the patient as necessary. Procedure Note Nohemy Hernandez MD - 05/30/2025 NAME: YOAV MUNOZ : 1990 SEX: F Accession Number: [id number] ORDERING PHYSICIAN: MEE PRINGLE REFERRING PHYSICIAN: MEE PRINGLE Coding ----- --------- Procedures 16294: Ultrasound, uterus, real time with imagedocumentation, and maternal evaluation plus detailed anatomic examination, transabdominalapproach;single or first gestation Indication ----- --------- Screening for Anatomic Survey, Hepatitis C in , Malformation ofplacenta- complete circumvallate,History of prior with delivery- placental abruption, Previous History ----- --------- OB History 4. Para 3 [id number] Maternal Assessment ----- --------- Physical Exam Initial [...] EFW (oz) 14 oz EFW by: Hadlock ([id number]-FL) Extended Tibia 48.3 mm 29w 1d 6% Mara Manager [employer] 2.3 mm CM 9.6 mm 95% Nicolaides [...] 4-chamber view. RVOT view. LVOT view. 3-vessel view.3-rmqpqv-dsiogfn view. Situs. Bicaval view. Interventricular septum. Great [...] placenta noted. Recommendations ----- --------- Please see [facility] documentation from today. The patient is scheduled in four week(s) to complete anatomic survey. Subsequent follow up or other follow up as clinically determined byprimary OB provider unless otherwise specified by M. Results forwarded to ordering provider so they can follow up with thepatient as necessary. us Mee Pringle DO [facility] US ORDERABLES Final Result * Ultrasound - [...] ORDERABLES Yun l Result Performing Organization Address City/[facility]/ZIP Co de Phone Number MANUALLY TRANSCRIBED RESULTS * Rubella IGG immune status (05/21/2025) Rubella immune IgG <0.90 MANUALLY TRANSCRIBED RESULTS Blood Venous blood / Unknown us Not In System Ref Prov LAB BLOOD ORDERABLES Yun l Result Performing Organization Address City/[facility]/ZIP Co de Phone Number MANUALLY TRANSCRIBED RESULTS * Syphilis Total (Unknown Syphilis Status) (05/21/2025) Syphilis NON-REACTI VE MANUALLY TRANSCRIBED RESULTS Blood Venous blood / Unknown us Not In System Ref Prov LAB BLOOD ORDERABLES Yun l Result Performing Organization Address City/[facility]/ZIP Co de Phone Number MANUALLY TRANSCRIBED RESULTS * Hepatitis C(HCV) Ab w/ Reflex to PCR (05/21/2025) Hepatitis C Antibody REACTIVE MANUALLY TRANSCRIBED RESULTS Blood Venous blood / Unknown us Not In System Ref Prov LAB BLOOD ORDERABLES Yun l Result Performing Organization Address City/[facility]/ZIP Co de Phone Number MANUALLY TRANSCRIBED RESULTS [...] ORDERABLES Final Re sult Performing Organization Address [facility] de Phone Number MANUALLY TRANSCRIBED RESULTS * Hepatitis B surface antigen (05/21/2025) Hepatitis B Surface Antigen NEGATIVE MANUALLY TRANSCRIBED RESULTS Blood Venous blood / Unknown us Not In System Ref Prov LAB BLOOD ORDERABLES Yun l Result Performing Organization Address [facility] de Phone Number MANUALLY TRANSCRIBED RESULTS * CBC without diff (05/21/2025) Hemoglobin 10.8 MANUALLY TRANSCRIBED RESULTS Hematocrit 30.6 MANUALLY TRANSCRIBED RESULTS Rbc Mcv (Fl) By Automated Count 79.3 MANUALLY TRANSCRIBED RESULTS Platelets 176 MANUALLY TRANSCRIBED RESULTS Blood Venous blood / Unknown us Not In System Ref Prov LAB BLOOD ORDERABLES Yun l Result Performing Organization Address [facility] de Phone Number MANUALLY TRANSCRIBED RESULTS * Type and screen (05/21/2025) Abo/Rh(D) B Positive MANUALLY TRANSCRIBED RESULTS Antibody Screen NEGATIVE MANUALLY TRANSCRIBED RESULTS Blood Venous blood / Unknown us Not In System Ref Prov BLOOD BANK TEST ORDERABLE S Final Result Performing Organization Address [facility] de Phone Number MANUALLY TRANSCRIBED RESULTS * Hemoglobin A1c (05/21/2025) Hemoglobin A1C 4.7 4.0 - 6.0 % MANUALLY TRANSCRIBED RESULTS Blood Venous blood / Unknown us Nohemy Hernandez MD LAB BLOOD ORDERABLES Final Re sult MANUALLY TRANSCRIBED RESULTS from Last 3 Months Insurance [employer] Care Teams Informatics Manager Relationship Specialty Start Date End Date No Pcp, No Pcp RUY Stephen [phone] PCP - General Family Medicine 04/27/20
--- OUTSIDE RECORDS SUMMARY | 2025-06-08 11:22 | XMS_ITS | Encounter Summary ---
Author Organization [facility] Address [facility] [place] [address] [place] [address] Care Team Providers Care Poultry Husbandry Teacher Name Role Phone No Pcp, No Pcp Primary Care Provider Unavailabl e Encounter Details Date Type Department Care Team (Late Contact Info) Description 05/30/2025 Orders Only Maternal- Medicine at [facility] [address] [place] [phone] Paradise Raya LPN Social History Tobacco Use [...] Info) Description 07/05/2025 1:00 PM EDT Appointment [facility] - [facility] US Imaging [address] [facility] [place] [phone] 07/05/2025 2:30 PM EDT Office Visit Maternal- Medicine at [facility] [address] [facility] [place] [address] Tasia Dowd MD [address] [facility] [address] [place] [address] documented as of this encounter Visit Diagnoses Not on filedocumented in this encounter Care Teams Poultry Husbandry Teacher Relationship Specialty Start Date End Date No Pcp, [place] [address] PCP - General Family Medicine 04/27/20 documented as of this encounter
--- OUTSIDE RECORDS SUMMARY | 2025-06-08 11:22 | XMS_ITS | Encounter Summary ---
Author Organization [facility] Address [facility] [address] [place] [address] Care Team Providers Care Pipe Coverer Helper Name Role Phone No Pcp, No Pcp [...] EDT Appointment [facility] - [facility] US Imaging [address] [place] [address] 07/05/2025 2:30 PM EDT Office Visit Maternal- Medicine at [facility] [address] [place] [address] Tasia Dowd MD [address] [place] [address] documented as of this encounter Visit Diagnoses Not on filedocumented in this encounter Care Teams Pipe Coverer Helper Relationship Specialty Start Date End Date No Pcp, [place] [address] PCP - General Family Medicine 04/27/20 documented as of this encounter
[2025-06-08 12:04] LABS: INR 0.97; Partial Thromboplastin Time 23.4 sec (22.3-36.2); Prothrombin Time 10.3 sec (9.0-11.6)
[2025-06-08 12:05] LABS: Alanine Aminotransferase 36 U/L (14-59); Albumin Globulin Ratio 0.6; Albumin Level 2.7 g/dL (3.4-5.0); Alkaline Phosphatase 117 U/L (46-116); Anion Gap 12.5; Aspartate Amino Transferase 29 U/L (15-37); Blood Urea Nitrogen 4.0 mg/dL (7.0-18.0); Calcium 8.8 mg/dL (8.5-10.1); Carbon Dioxide 25.9 mmol/L (21.0-32.0); Chloride 105 mmol/L (98-107); Estimated GFR (African America >60 (>=60 mL/min/1.73m^2); Estimated GFR (Non-African Ame >60 (>=60 mL/min/1.73m^2); Globulin 4.2 g/dL; Glucose 59 mg/dL (74-106); Potassium 3.4 mmol/L (3.5-5.1); Sodium 140 mmol/L (136-145); Total Protein 6.9 g/dL (6.4-8.2)
[2025-06-09 16:09] LABS: Anticardiolipin Ab,IgA,Qn <9 APL U/mL (0-11); Anticardiolipin Ab,IgG,Qn <9 GPL U/mL (0-14); Anticardiolipin Ab,IgM,Qn <9 MPL U/mL (0-12)
[2025-06-11 15:13] LABS: Beta-2 Glycoprotein I Ab, IgA <9 (0-25); Beta-2 Glycoprotein I Ab, IgG <9 (0-20); Beta-2 Glycoprotein I Ab, IgM <9 (0-32)
== END 2025-06-08 11:17 | disposition home or self-care (01) ==
LOC: LAB 11:19
PROVIDERS: PCP Nurse Practitioner Family; Visit Provider Obstetrics & Gynecology Maternal & Fetal Medicine
DX: B19.20 Unspecified viral hepatitis C without hepatic coma (principal); Z87.59 Personal history of other complications of pregnancy, childbirth and the puerperium
CPT/HCPCS: 36415; 80053; 85610; 85613; 85730; 86146; 86147

== ENCOUNTER 2025-06-11 10:01 | Outpatient (OUT) | payer OTHER, SELFPAY ==
--- OUTSIDE RECORDS SUMMARY | 2019-12-25 20:00 | XMS_ITS | Continuity of Care Document ---
Author Organization [facility] Address [address] [place] [address] Phone Care Team Providers Care Produce Specialist Name Role Phone Pavlock DO, Max Unavailable [...] drug services- Acute Deto x Acute Detox Licensing Coordinator Acute Detox Licensing Coordinator DRUG TEST PRSMV DIR OPT OBS URINE TEST Acute Detox Licensing Coordinator Advance Directives Directive Yes / No Effective Date File Name No Information Encounters Encounter Description Practice Location Reason(s) For Visit Diagnoses Date Provider Providers Copied on Encounter [facility], [address] [place] [address], [id number] , tel: [phone] [facility] Detox Opioid dependence with withdrawalAlcohol dependence with withdrawal, uncomplicated 0 Pavlock DO Max. [address] [place] [address], [id number] , [place]. tel: [phone] [facility], [address] [place] [address], [id number] , tel: [phone] [facility] Detox Opioid dependence with withdrawal 0 Pavlock DO Max. [address] [place] [address], [id number] , [place]. tel: [phone] [facility], [address] [place], [place], [id number] , [place] tel: [phone] [facility] Detox Opioid dependence with withdrawal Feb-2 0 Pavlock DO Max. [address] [place], [place], [id number] , [place]. tel: [phone] [facility], [address] [place], [place], [id number] , [place] tel: [phone] [facility] Detox alcohol and heroin dependence (chief complaint) Opioid dependence with withdrawalAlcohol dependence with withdrawal, uncomplicated Feb-2 0 [place] Ayala. [address] [place], [place], [id number] , [place]. tel: [phone] [facility], [address] [place] [address], [id number] , [place] tel: [phone] [facility] Detox Opioid dependence with withdrawal Feb-2 0 Pavlock DO Max. [address] [place], [place], [id number] , [place]. tel: [phone] [facility], [address] [place] [address], [id number] , [place] tel: [phone] [facility] Detox Opioid dependence with withdrawalEncounter for test, result negative b-2 0 Pavlock DO Max. [address] [place], [place], [id number] , [place]. tel: [phone] Family History Family Member Type Diagnosis Age At Onset No Information Payers Payer name Insurance type Covered democrat ID Homar sellers(s) [facility] [id number] Social History Type Description Quantity Date Captured [...]
--- OUTSIDE RECORDS SUMMARY | 2025-03-02 05:30 | XMS_ITS ---
Author Organization [facility] in [place] Address [address] [place] [address] Care Team Providers Care Trader Fixed Income Name Role Phone Farideh Smith Primary Care Provider Allergies Allergen (clinical drug ingredient) Drug/Non Drug Allergy documented on EMR Reaction Allergy Type Onset Date Status Penicillin childhood/unknow n Drug Allergy Active REASON FOR VISIT School PE Medications Medication SIG (Take, Route, Frequency, Duration) Notes Start Date End Date Status Nicotine 10 MG/ML 2 sprays (1 spray in each nostril) as needed Nasally 24 time(s) a day for 30 days Initial: 1 to 2 doses/hour (each dose [2 sprays, one in each nostril] contains 1 mg of nicotine); do not exceed more than 5 doses (10 sprays) per hour [maximum: 40 mg/day (80 sprays)] 10/20/2024 Active QUEtiapine Fumarate 50 MG 1 tablet Oral at bedtime for 30 days Active Suboxone 8-2 MG 1 1/4 film under the tongue and allow to dissolve Sublingual once daily for 28 days Active tiZANidine HCl 4 MG 1 tablet as needed Orally BID for 14 days muscle spasms 04/15/2023 Active Ibuprofen 800 MG 1 tablet with food or milk as needed Orally every 8 hrs as needed for 14 days 11/15/2023 Active ALPRAZolam 0.25 MG 1 tablet Orally once a day prn for 30 days 06/19/2024 Active Gabapentin 400 mg TAKE 1 CAPSULE BY MOUTH THREE TIMES DAILY for 30 days Active Social History Tobacco Use: Social History Observation Description Date Details (start date - stop date) Current Smoker 11/01/2007 - NA Tobacco Use/Smoking Question Answer Notes Patient is a current smoker When did you start smoking? 11/01/2007 How often do you smoke cigarettes? every day AUDIT-C (Standard) Question Answer Notes Did you have a drink containing alcohol in the p ast year? No Points 0 Interpretation Negative Vital Signs Blood pressure systolic 102 mm Hg 03/02/20 25 Blood pressure diastolic 64 mm Hg 025 Height 65 in 03/02/2025 Weight 148.2 lbs 03/02/2025 BMI 24.66 kg/m2 03/02/2025 Encounters Encounter Location Date Provider Diagnosis [facility] [address] [place] [address] 03/02/2025 Farideh Smith [facility] physical exam Z02.0 Assessments Encounter Date Diagnosis (ICD Code) Assessment Notes Treatment Notes Treatment Clinical Notes Section Notes 03/02/2025 School physical exam (ICD-10 - Z02.0) ok for clinicals form filled out 03/02/2025 Other discussed unplanned , encouragment given Plan Of Treatment Treatment Notes Assessment Notes School physical exam ok for clinicals form filled out Other discussed unplanned , encouragment given Next Appt Details Follow Up: prn, Reason: Progress Notes * Carmelita YANEZ NDOB:[birth year] (34 yo F)Acc No.[id number]:03/02/2025 Progress Note Patient: Carmelita HO Provider: Nazario Smith ([facility]), PHYSICAL THERAPY TECHNICIAN :1990 A ge:34 Y S ex:Female Date:03/02/2025 Address:[address] [place], [place] [phone] Check In:09:23 AM ESTCheck O ut:09:46 AM EST Subjective: * Chief Complaints: * 1 . School PE. 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 * ROS: G eneral/Constitutional: Fever d enies. H eadache d enies. W eight loss?denies. O phthalmologic: Discharge d enies. E ye Pain d enies. I tching and redness d enies. E NT: Nasal discharge d enies. N terri congestion d enies.?Sore throat d enies. C ardiovascular: Chest tightness/ heavy pressure d enies. R apid heart rate d enies. S welling of extremities d enies. C hest pain d enies. ? R espiratory: Productive cough d enies. C hest pain d enies. C ough d enies. S hortness of breath d enies. W heezing d enies. ? G astrointestinal: Abdominal pain d enies. C onstipation d enies. D ecreased appetite d enies. D iarrhea d enies. N ausea d enies. V omiting?denies. G enitourinary: Urinary incontinence d enies. P ainful urination d enies. M usculoskeletal: Back pain d enies. N erin pain d enies. M uscle aches d enies. S kin: Rash d enies. S kin lesion(s) d enies. ? * Active Problem List F90.9 ADHD Modified On:01/29/2023W/U Status:confirmed F32.9 Major depressive dis order, single episode Modified On:01/29/2023/U Status:confirmed F41.9 Anxiety Modified On:10/20/2023/U Status:confirmed F31.9 Bipolar disorder Modified On:01/29/2023/U Status:confirmed F17.200 Smoking Modified On:10/20/2024W/U Status:confirmed R43.2 Loss of taste Modified On:01/08/2025W/U Status:confirmed * Medical History: M edical History Verified. * Surgical History: D &C , . * Family History: F ather: alive, depression, bipolar, emphysema. M other: alive, COPD, depression. B rother(s): alive. S on(s): alive. D narda(s): alive. 3 brother(s) . 1 son(s) , 2 daughter(s) . . * Social History: T obacco Use: T obacco Use/Smoking P atient is a c urrent smoker W hen did you start smoking? 0 11/01/2007 H ow often do you smoke cigarettes? e very day D rug/Alcohol: A CULLEN-C (Standard) D id you have a drink containing alcohol in the past year? N o P oints 0 I nterpretation N egative * Medications: T aking ALPRAZolam 0.25 MG Tablet 1 tablet Orally once a day prn , Taking Gabapentin 400 mg Capsule TAKE 1 CAPSULE BY MOUTH THREE TIMES DAILY , Taking Ibuprofen 800 MG Tablet 1 tablet with food or milk as needed Orally every 8 hrs as needed , Taking Nicotine 10 MG/ML Solution 2 sprays (1 spray in each nostril) as needed Nasally 24 time(s) a day , Notes to Pharmacist: Initial: 1 to 2 doses/hour (each dose [2 sprays, one in each nostril] contains 1 mg of nicotine); do not exceed more than 5 doses (10 sprays) per hour [maximum: 40 mg/day (80 sprays)], Taking QUEtiapine Fumarate 50 MG Tablet 1 tablet Oral at bedtime , Taking Suboxone(Buprenorphine HCl-Naloxone HCl) 8-2 MG Film 1 1/4 film under the tongue and allow to dissolve Sublingual once daily , Taking tiZANidine HCl 4 MG Tablet 1 tablet as needed Orally BID , Notes to Pharmacist: muscle spasms, Medication List reviewed and reconciled with the patient * Allergies: P enicillin: childhood/unknown - Allergy. Objective: * Vitals: W t:148.2lbs, Ht: 65 in, BP:102/64mm Hg, BMI:24.66Index, Ht-cm: 165.1 cm, Wt-k.22 kg. * Examination: G eneral Examinations: GENERAL APPEARANCE: a lert and oriented, i n no acute distress. EYES: c onjunctiva normal, sclera non-icteric. NOSE: n ormal external appearance. LUNGS: c lear to auscultation bilaterally. CARDIO: r egular rate and rhythm, S1, S2 normal. ABDOMEN: s oft, nontender. MUSCULOSKELETAL: G ait and station normal. SKIN: w arm and dry. Assessment: * Assessment: 1. S jenna physical exam - Z02.0 (Primary) Plan: * Treatment: 2. 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
--- OUTSIDE RECORDS SUMMARY | 2025-04-18 13:30 | XMS_ITS | Encounter Summary ---
Author Organization [facility] Address [address] [place] [address] Care Team Providers Care Circular Clerk Name Role Phone Unavailable Primary Care Provider Unavailabl e Reason for Visit * Reason Comments Routine Visit Encounter Details Date Type Department Care Team (Late st Contact Info) Description 04/18/2025 1:30 PM EDT Routine [facility] [address] [place] [address] Tony Pringle DO [address] Mauro Clement, [facility]11 Second trimester ([facility]); 25 weeks gestation of ([facility]); Abnormal ultrasonic finding on screening of mother, [...] (HCC) BMI 28.0-28.9,adult Drug abuse, opioid type ([facility]) Encounter for follow-up Encounter for gynecological examination (general) (routine) without abnormal findings Labial cyst Pain pelvic HISTORY PAST MEDICAL HISTORY SOCIAL HISTORY Past Medical History: Diagnosis Date Abscess of labia Bipolar disorder (HCC) BMI 28.0-28.9,adult Drug abuse, opioid type ([facility]) Encounter for follow-up Encounter for gynecological examination [...] nursing note reviewed. Exam conducted with a knocker off present. Vitals: Estimated body mass index is 25.79 kg/m?? as calculated from the following: Height as of 12/09/22: 5' 5 . Weight as of this encounter: 155 lb. BP: 112/64 No LMP recorded. Patient is . ASSESSMENT & PLAN ICD-10-CM 1. Second trimester ([facility]) Z34.92 POCT urinalysis dipstick manually resulted 2. 25 weeks gestation of ([facility]) Z3A.25 Return OB: Patient presents [...] PM EDT Routine [facility] [address] [place] [phone] Tony Pringle DO [address] [place] [address] Scheduled Orders Name Type Priority Associated Diagnoses Orde r Schedule US OB follow up transabdominal approach Imaging Routine Second trimester ([facility]) Abnormal ultrasonic finding on screening of mother, antepartum Expected: 04/18/2025, Expires: 08/18/2025 documented as of this encounter Procedures Procedure Name Priority Date/Time Associated Diagnosis Comments POCT URINALYSIS DIPSTICK Routine 04/18/2025 1:44 PM EDT Second trimester ([facility]) documented in this encounter Results * (ABNORMAL) [...] this encounter Visit Diagnoses Diagnosis Second trimester ([facility]) state, incidental 25 weeks gestation of ([facility]) Abnormal ultrasonic finding on screening of mother, antepartum documented in this encounter
--- OUTSIDE RECORDS SUMMARY | 2025-05-16 11:00 | XMS_ITS | Encounter Summary ---
Author Organization [facility] Address [address] [place] [address] Care Team Providers Care C2 Tactical Analysis Technician Name Role Phone Unavailable Primary Care Provider Unavailabl e Reason for Visit * Reason Comments Routine Visit Encounter Details Date Type Department Care Team (Late st Contact Info) Description 05/16/2025 11:00 AM EDT Routine [facility] [address] [place] [address] Tony Pirngle DO [address] Mauro Clement, [facility]11 29 weeks gestation of ([facility]); Third trimester ([facility]); Request for sterilization; H/O opioid abuse ([facility]); History of placental abruption; Abnormal ultrasonic finding [...] this encounter Progress Notes * Raine Aguilar, SAFETY ENGINEER - 05/16/2025 11:00 AM EDT Reason for [...] (HCC) BMI 28.0-28.9,adult Drug abuse, opioid type ([facility]) Encounter for follow-up Encounter for gynecological examination (general) (routine) without abnormal findings Labial cyst Pain pelvic HISTORY PAST MEDICAL HISTORY SOCIAL HISTORY Past Medical History: Diagnosis Date Abscess of labia Bipolar disorder (HCC) BMI 28.0-28.9,adult Drug abuse, opioid type ([facility]) Encounter for follow-up Encounter for gynecological examination [...] nursing note reviewed. Exam conducted with a film spooler present. Vitals: Estimated body mass index is 26.46 kg/m?? as calculated from the following: Height as of 12/09/22: 5' 5 . Weight as of this encounter: 159 lb. BP: 110/70 No LMP recorded. Patient is . ASSESSMENT & PLAN ICD-10-CM 1. 29 weeks gestation of ([facility]) Z3A.29 POCT urinalysis dipstick manually resulted 2. Third trimester ([facility]) Z34.93 POCT urinalysis dipstick manually resulted 3. Request for sterilization Z30.2 4. H/O opioid abuse ([facility]) F11.11 5. History of placental abruption Z87.59 [...] PM EDT Routine [facility] [address] [place] [address] Tony Pringle DO [address] [place], [place] [address] [place] [address] Scheduled Orders Name Type Priority Associated Diagnoses Orde r Schedule US biophysical profile w non stress test Imaging Routine H/O opioid abuse ([facility]) History of placental abruption Expected: 05/16/2025 (Approximate), Expires: 11/16/2025 documented as of this encounter Procedures Procedure Name Priority Date/Time Associated Diagnosis Comments POCT URINALYSIS DIPSTICK Routine 05/16/2025 11:03 AM EDT 29 weeks gestation of ([facility]) Third trimester ([facility]) documented in this encounter Results * (ABNORMAL) [...] Urine 05/16/2025 11:0 3 AM EDT Result [facility] Tony Pringle DO POINT OF CARE TEST ENTER/EDIT OR DERABLES Final Result documented in this encounter Visit Diagnoses Diagnosis 29 weeks gestation of ([facility]) Third trimester ([facility]) state, incidental Request for sterilization H/O opioid abuse (CMS-HCC) History of placental abruption Abnormal ultrasonic finding on screening of mother, antepartum documented in this encounter
--- OUTSIDE RECORDS SUMMARY | 2025-05-30 09:15 | XMS_ITS | Encounter Summary ---
Author Organization [facility] [address] [facility] Address [id number] [address] [place] [address] Care Team Providers Care Senior Windows Systems Administrator Name Role Phone No Pcp, No Pcp Primary Care Provider Unavailabl e Reason for Referral * Diagnostic Imaging (Routine) - Pending Review Specialty Diagnoses / Procedures Referred By Contac t Referred To Contact Maternal and Medicine Diagnoses Screening, , for anatomic survey Procedures US MFM with or without consult Mee Pringle DO [address] [place] [address] Phone: tel: fax: Maternal- Medicine at [facility] [address] [place] [address] Phone: tel: fax: Referral ID Status Reason Start Date Expiration Date V isits Requested Visits Authorized [id number] Pending Review 05/30/2025 05/30/2026 1 1 Reason for Visit * Diagnostic Imaging (Routine) - Pending Review Specialty Diagnoses / Procedures Referred By Contac t Referred To Contact Maternal and Medicine Diagnoses Screening, , for anatomic survey Procedures US MFM with or without consult Mee Pringle DO [address] [place] [address] Phone: tel: fax: Maternal- Medicine at [facility] [address] [place] [address] Phone: tel: fax: Referral ID Status Reason Start Date Expiration Date V isits Requested Visits Authorized [id number] Pending Review 05/30/2025 05/30/2026 1 1 Encounter Details Date Type Department Care Team (Latest Contact Info) Description 05/30/2025 9:15 AM EDT - 05/30/2025 11:59 PM EDT Hospital Encounter [facility] - [facility] US Imaging [address] [place] [phone] Screening, , for anatomic survey Discharge Disposition: [...] 07/05/2025 1:00 PM EDT Appointment [facility] - [facility] US Imaging [address] [place] [phone] 07/05/2025 2:30 PM EDT Office Visit Maternal- Medicine at [facility] [address] [place] [phone] Tasia Dowd MD [address] [facility] 1st [address] [place], [place] [id number] documented as of this encounter Procedures Procedure Name Priority Date/Time Associated Diagnosis Comments [facility] COMPREHENSIVE ANATOMIC SURVEY Routine 05/30/2025 10:52 AM EDT Screening, , for anatomic survey documented in this encounter Results * [facility] COMPREHENSIVE ANATOMIC SURVEY (05/30/2025 10:52 AM EDT) Anatomical Region Laterality Modality OB-AUTOMOTIVE SERVICE ASSISTANT Ultrasound 05/30/2025 9:40 AM EDT Narrative 05/30/2025 12:58 PM EDT NAME: YOAV MUNOZ : 1990 SEX: F Accession Number: [id number] ORDERING PHYSICIAN: MEE PRINGLE REFERRING PHYSICIAN: MEE PRINGLE Coding ----- --------- Procedures [id number]: Ultrasound, uterus, real time with image documentation, and maternal evaluation plus detailed anatomic examination, transabdominal approach;single or first gestation Indication ----- --------- Screening for Anatomic Survey, Hepatitis C in , Malformation of placenta- complete circumvallate,History of prior with delivery- placental abruption, Previous History ----- --------- OB History 4. Para 3 [id number] Maternal Assessment ----- --------- Physical Exam Initial [...] EFW (oz) 14 oz EFW by: Hadlock ([id number]-FL) Extended Tibia 48.3 mm 29w 1d 6% Mara Fx Artist 2.3 mm CM 9.6 mm 95% Nicolaides [...] view. RVOT view. LVOT view. 3-vessel view. 4-hygcss-rvswpqb view. Situs. Bicaval view. Interventricular septum. Great [...] placenta noted. Recommendations ----- --------- Please see [facility] documentation from today. The patient is scheduled [...] MUNOZ : 1990 SEX: F Accession Number: [id number] ORDERING PHYSICIAN: MEE PRINGLE REFERRING PHYSICIAN: MEE PRINGLE Coding ----- --------- Procedures [id number]: Ultrasound, uterus, real time with imagedocumentation, and maternal evaluation plus detailed anatomic examination, transabdominalapproach;single or first gestation Indication ----- --------- Screening for Anatomic Survey, Hepatitis C in , Malformation ofplacenta- complete circumvallate,History of prior with delivery- placental abruption, Previous History ----- --------- OB History 4. Para 3 [id number] Maternal Assessment ----- --------- Physical Exam Initial [...] EFW (oz) 14 oz EFW by: Hadlock ([id number]-[id number]-FL) Extended Tibia 48.3 mm 29w 1d 6% Mara Fx Artist 2.3 mm CM 9.6 mm 95% Nicolaides [...] 4-chamber view. RVOT view. LVOT view. 3-vessel view.3-mzwzfd-tmpldrw view. Situs. Bicaval view. Interventricular septum. Great [...] placenta noted. Recommendations ----- --------- Please see [facility] documentation from today. The patient is scheduled in four week(s) to complete anatomic survey. Subsequent follow up or other follow up as clinically determined byprimary OB provider unless otherwise specified by [facility]. Results forwarded to ordering provider so they can follow up with thepatient as necessary. us Mee Pringle DO [facility] [place] [place] US ORDERABLES Final Result documented in this encounter Visit Diagnoses Diagnosis Screening, , for anatomic survey Encounter for anatomic survey documented in this encounter Care Teams Senior Windows Systems Administrator Relationship Specialty Start Date End Date No Pcp, [place] [address] PCP - General Family Medicine 04/27/20 documented as of this encounter
--- OUTSIDE RECORDS SUMMARY | 2025-05-30 10:30 | XMS_ITS | Encounter Summary ---
Author Organization [facility] Address [id number] [address] [place] [address] Care Team Providers Care Financial Risk Manager Name Role Phone No Pcp, No Pcp Primary Care Provider Unavailabl e Reason for Referral * Diagnostic Imaging (Routine) - Pending Review Specialty Diagnoses / Procedures Referred By Gisele liao Referred To Contact Maternal and Medicine Diagnoses History of placental abruption Hepatitis C virus infection without hepatic coma, unspecified chronicity Procedures US [facility] with or without consult Nohemy Hernandez MD [address], [address] [place] [address] Phone: tel: fax: Maternal- Medicine at [facility] [address] [place] [address] Phone: tel: fax: Referral ID Status Reason Start Date Expiration Date V isits Requested Visits Authorized [id number] Pending Review 05/30/2025 05/30/2026 1 1 Reason for Visit * Reason Comments Hepatitis C Current Everyday Smoker Encounter Details Date Type Department Care Team (Late st Contact Info) Description 05/30/2025 10:30 AM EDT Office Visit Maternal- Medicine at [facility] [address] [place] [id number] Nohemy Hernandez MD [address] [facility], [address] [place] [id number] History of placental abruption (Primary Dx); Hepatitis C virus infection without hepatic coma, unspecified chronicity Social History Tobacco Use Types Packs/Day Years Used Date Smoking Tobacco: Former Cigarettes Smokeless Tobacco: Never Tobacco Cessation:Counseling Given: Not Answered Alcohol Use Standard Drinks/Week Comments Not Currently [...] Sign Reading Time Taken Comments Blood Pressure 110/73 05/30/2025 9:30 AM EDT Pulse 83 05/30/2025 9:30 AM EDT Temperature - - Respiratory Rate - - Oxygen Saturation - - Inhaled Oxygen Concentration - - Weight 73.8 kg (162 lb 12.8 oz) 05/30/2025 9:30 AM EDT Height 165.1 cm (5' 5 ) 05/30/2025 9:30 AM EDT Body Mass Index 27.09 05/30/2025 9:30 AM EDT documented in this encounter Progress Notes * Paradise Raya LPN - 05/30/2025 10:30 AM EDT Headache/epigastric pain/blurry vision/swelling? Headaches that are relieved with Tylenol Cramping/contractions? No Spotting/vaginal bleeding? No Loss or gush of fluid like your water may have broken? No Do you have cats at home? Outside cats Do you change the litter box (reason: risk of toxoplasmosis)? No Genetic testing done this here or other office? No Have you been seen here at [facility] in a previous ? No Recent ER visits or hospitalizations? No Bring blood sugar log or meter with you today? (Please bring them with you for every visit at [facility]) N/A Flu vaccine (Sep-December)? N/A Any concerns that you would like me to mention to the provider today? No * Nohemy Hernandez MD - 05/30/2025 10:30 AM EDT REASON FOR CONSULTATION: hepatitis C, seroquel use, history of placental abruption , suboxone use HISTORY OF PRESENT ILLNESS: Carmelita Yanez is a pleasant 34 y.o. at 31w4d due on EstimatedDate of Delivery: 07/28/25 . Currently the patient has no complaints. The patient denies nausea, vomiting, abdominal pain, vaginal bleeding, SOB or chest pain. PAST OBSTETRICAL HISTORY: OB History 5 Para 3 Term 2 1 AB 1 Living 3 SAB 1 IAB Ectopic Multiple Live Births 3 SURGICAL HISTORY: Past Surgical History: Procedure Laterality Date SECTION 07/2015 DILATION AND CURETTAGE OF UTERUS 11/2007 ALLERGIES: Allergies Allergen Reactions Penicillins CURRENT MEDICATIONS: Current Outpatient Medications: buprenorphine-naloxone (SUBOXONE) 8-2 mg film, Dissolve 1 Film on tongue in the morning., Disp: , Rfl: gabapentin (NEURONTIN) 100 mg capsule, Take 1 capsule (100 mg total) by mouth before bedtime., Disp: , Rfl: no115/iron/folic acid ( 19 ORAL), Take 1 tablet by mouth before bedtime., Disp: , Rfl: QUEtiapine (SEROquel) 200 mg tablet, Take 50 mg by mouth nightly., Disp: , Rfl: FLUoxetine (PROzac) 40 mg capsule, Take 60 mg by mouth daily. (Patient not taking: Reported on 05/30/2025), Disp: , Rfl: hydrOXYzine (VISTARIL) 100 mg capsule, Take 100 mg by mouth daily. (Patient not taking: Reported on05/30/2025), Disp: , Rfl: magnesium oxide (MAGOX) 400 mg tablet, Take 1 tablet (400 mg total) by mouth in the morning. (Patient not taking: Reported on 05/30/2025), Disp: , Rfl: naltrexone microspheres (VIVITROL IM), Inject into the appropriate muscle. (Patient not taking: Reported on 05/30/2025), Disp: , Rfl: REVIEW OF SYSTEMS: Head and Neck: Negative for any dizziness and headaches. Cardiovascular and Respiratory System: Denies any chest pain, shortness of breath, and coughing. Abdominal and System: Denies any abdominal pain, nausea, vomiting, vaginal bleeding, and vaginal discharge FAMILY/GENETIC HISTORY: No pertinent family history SOCIAL HISTORY:Patient denies tobacco use, alcohol use, or drug use. REVIEW OF TESTS AND ULTRASOUND REPORTS: see today's report. Labs HCV quant 65,900 HABITS: Patient activity no restrictions, diet no restrictions PHYSICAL EXAMINATION: BP 110/73 (BP Site: Left Arm, BP Postition: Lying) Pulse 83 Ht 165.1 cm (5' 5 ) Wt 73.8 kg (162 lb 12.8 oz) BMI 27.09 kg/m?? DISCUSSION: Hepatitis C Hepatitis C is one of the most common and potentially serious infections that can occur in women and it affect 1-4% of women in the [facility]. I reviewed with the patient that Hepatitis C is bloodborne virus. The primary mode of Hepatitis C transmission is percutaneous exposure to blood from injection of illicit drugs. Other modes of transmission include vertical transmission (mother to child); sharing of contaminated devices for noninjection drug use; exposure to infected blood through occupational exposures, tattoo needles, or other means; and sexual intercourse (specifically increased in the setting of multiple partners) which can be transmitted via sharing needles in intravenous drug users, through sexual contact, and by vertical transmission. Without treatment, approximately 15% to 45% of infected individuals spontaneously clear Hepatis C within 6 months of infection. Without treatment, 15% to 30% of patients with chronic Hepatitis C infection develop cirrhosis within 20 years, although rates vary widely by study; In comparison, among patients with cirrhosis treated with antiviral medications and who achieve a sustainedvirologic response (SVR), only 5% develop HCC within 10 year.. The patient was counseled that Hepatitis C infection is not associated with an increased risk of structural anomalies. Hepatitis C has been associated with higher risk for of gestational diabetes, intrahepatic cholestasis and increased risk for , growth restriction and low birthweight, admission to the intensive care unit. The overall risk of Kizqdypx-En-Rhevh-Transmission (MTCT) during is approximately 4-8%. If the Hepatitis C viral load (VL) is undetectable near the time of delivery, the MTCT rate is reduced to approximately 1% or less. We explained thematernal antibodies cross the placenta and can be detected in the blood for up to 18-24 months, therefore this cannot be used as a test to diagnose the with Hepatitis C infection until after 18 months. The [place] [employer] Pediatrics and CDC recommend screening of infants born to HCV-positive women for anti-HCV antibodies at the age of >18 months or for HCV RNA on 2 occasions in infants at the age of >1 month. Currently the Society of Maternal- Medicine recommends that direct-acting antiviral regimens only be initiated in the setting of a clinical trial during and that people who become while taking a direct-acting antiviral should be counseled in a shared decision-making framework about the risks and benefits of continuation. History of Placental Abruption Carmelita has a history of a placental abruption at 34 weeks for which she was delivered by .The recurrence risk after 1 abruption is 3-15%. There are no current interventions to reduce the risk of placental abruption however there are modifiable risk factors such as discontinuing smoking. Suboxone use We started our discussion of management of women on buprenorphine, commonly also known as Subutex. The patient does well on Subutex during . The other alternative is methadone. Patients on buprenorphine usually are stable on medication and should continue taking medication throughout the whole and in the period.I then discussed that should be continued withtarget ultrasound followed by serial growth ultrasounds every four weeks and delivery should occur at term. Early term induction and section should be reserved for routine obstetrical cases. ,Nubain or partial antagonists are not recommended during labor or in . These medicationswill cause immediate withdrawal symptoms. When additional pain relief is necessary, epidural or spinal anesthesia may be ideal for analgesia in labor or section. Morphine sulfate injection is effective in Subutex treated patients. During labor, an epidural is safe. Preloading the operative incision with a long-acting local anesthetic such as bupivacaine is also helpful if the patient undergoes the section. Postoperatively, injectable Ketorolac can also be given. This will reduce the total amount of narcotic given in the postoperative period. A stool softener should also be prescribed during hospital stay if the patient undergoes additional narcotic intake. We have then discussed abstinence syndrome which approximately is present in more than 50%of the newborns. Unfortunately, there is no direct relationship between the maternal buprenorphine dose and severity of abstinence syndrome, and therefore, I informed the patient that most likely the fetus born will have signs and symptoms of abstinence syndrome in the form of excessive crying, tremor, sleep deprivation, hyperthermia, tachypnea, poor feeding, irritability, and vomiting. Therefore, consult before delivery is recommended. Maternal polydrug use appears to worsenneonatal abstinence syndrome and usually the infants are kept between 5 to 7 days to monitor for the delayed appearance of the ANDREA symptoms. Vaping I discussed with the patient that use of tobacco products, including cigarette smoking, smokeless tobacco, and electronic cigarettes during is one of the most important modifiable risk factors associated with adverse maternal, , and outcomes. Adverse outcomes for women include but not limited to subfertility, long-term risk for conditions such as asthma, hypertension and lung cancer. Tobacco use has also been associated with numerous adverse outcomes such as miscarriage, placental abruption, premature rupture of membranes, labor and delivery, low weight and stillbirth. SUMMARY/RECOMMENDATION: The following is a summary of our recommendations: 1. Follow-up anatomy scan is scheduled in 4-6 weeks 2. Interval growth is recommended every 4 weeks 3. The need for testing will be determined by clinical status as the progresses 4. Recommend checking liver function tests and coags as well as a workup for antiphospholipid antibodies 5. GDM screening recommended 6. Recommend consultation with GI to determine if treatment will be required after delivery 7. NICUconsultation for education regarding abstinence syndrome 8. Obtain operative report from 2015. Carmelita would prefer to have a repeat Caesarean delivery. Thiscan be scheduled for 39 weeks or sooner if clinically indicated TIME OF CONSULTATION: We spent 45 minutes with the patient, >50% in discussion and counseling, coordination of care which was [id number]. documented in this encounter Plan of Treatment Upcoming Encounters Date Type Department Care Team (Late st Contact Info) Description 07/05/2025 1:00 PM EDT Appointment [facility] - [facility] US Imaging [address] [place] [address] 07/05/2025 2:30 PM EDT Office Visit Maternal- Medicine at [facility] [address] [facility] [address] [place] [phone] Tasia Dowd MD [address] [place] [address] Scheduled Orders Name Type Priority Associated Diagnoses Orde r Schedule Comprehensive metabolic panel Lab Routine History of placental abruption Hepatitis C virus infection without hepatic coma, unspecified chronicity 1 Occurrences starting 05/30/2025 until 05/30/2026 Protime & INR Lab Routine History of placental abruption Hepatitis C virus infection without hepatic coma, unspecified chronicity 1 Occurrences starting 05/30/2025 until 05/30/2026 APTT Lab Routine History of placental abruption Hepatitis C virus infection without hepatic coma, unspecified chronicity 1 Occurrences starting 05/30/2025 until 05/30/2026 DRVVT Lab Routine History of placental abruption 1 Occurrences starting 05/30/2025 until 05/30/2026 Anti cariolipin AB IgG IgA IgM Lab Routine History of placental abruption 1 Occurrences starting 05/30/2025 until 05/30/2026 Beta-2 glycoprotein antibodies Lab Routine History of placental abruption 1 Occurrences starting 05/30/2025 until 05/30/2026 [facility] with or without consult Imaging Routine History of placental abruption Hepatitis C virus infection without hepatic coma, unspecified chronicity Expected: 05/30/2025, Expires: 05/30/2026 documented as of this encounter Visit Diagnoses Diagnosis History of placental abruption- Primary Hepatitis C virus infection without hepatic coma, unspecified chronicity documented in this encounter Care Teams Financial Risk Manager Relationship Specialty Start Date End Date No Pcp, [place] [address] PCP - General Family Medicine 04/27/20 documented as of this encounter
--- OUTSIDE RECORDS SUMMARY | 2025-06-07 09:40 | XMS_ITS | Encounter Summary ---
Author Organization [facility] Address [address] [place] [address] Care Team Providers Care Senior Teller Name Role Phone Unavailable Primary Care Provider Unavailabl e Reason for Visit * Reason Comments Routine Visit Encounter Details Date Type Department Care Team (Late st Contact Info) Description 06/07/2025 9:40 AM EDT Routine [facility] [address] [address] Tony Pringle DO [address], [id number] Third trimester ([facility]); 32 weeks gestation of ([facility]); H/O opioid abuse ([facility] History of placental abruption; Diabetes mellitus screening [...] (HCC) BMI 28.0-28.9,adult Drug abuse, opioid type ([facility]) Encounter for follow-up Encounter for gynecological examination (general) (routine) without abnormal findings Labial cyst Pain pelvic HISTORY PAST MEDICAL HISTORY SOCIAL HISTORY Past Medical History: Diagnosis Date Abscess of labia Bipolar disorder (HCC) BMI 28.0-28.9,adult Drug abuse, opioid type ([facility]) Encounter for follow-up Encounter for gynecological examination [...] nursing note reviewed. Exam conducted with a abrasive grader helper present. Vitals: Estimated body mass index is 27.46 kg/m?? as calculated from the following: Height as of 12/09/22: 5' 5 . Weight as of this encounter: 165 lb. BP: 118/74 No LMP recorded. Patient is . ASSESSMENT & PLAN ICD-10-CM 1. Third trimester ([facility]) Z34.93 POCT urinalysis dipstick manually resulted 2. 32 weeks gestation of ([facility]) Z3A.32 3. H/O opioid abuse ([facility]) F11.11 4. History of placental abruption Z87.59 [...] Routine [facility] [address] [place] [phone] Tony Pringle DO [address] [place] [address] Scheduled Orders Name Type Priority Associated Diagnoses Orde r Schedule Hemoglobin A1c Lab Routine Diabetes mellitus screening Ordered: 06/07/2025 documented as of this encounter Procedures Procedure Name Priority Date/Time Associated Diagnosis Comments POCT URINALYSIS DIPSTICK Routine 06/07/2025 10:26 AM EDT Third trimester ([facility]) documented in this encounter Results * [...] this encounter Visit Diagnoses Diagnosis Third trimester ([facility]) state, incidental 32 weeks gestation of ([facility]) H/O opioid abuse ([facility]) History of placental abruption Diabetes mellitus screening Screening for diabetes mellitus documented in this encounter
--- NOTE | 2025-06-11 | US_ITS ---
[address] [address] Patient Name: ALEXANDER CASON MRN: [facility]:[id number] date: 1990 Sex: F Assigned Patient Location: [facility] Current Patient Location: Accession/Order Number: [id number] Exam Date: 06/11/2025 11:44 Report Date: 06/11/2025 11:45 At the request of: MEE BOCANEGRA DO Procedure: US OB BPP w non-stress Biophysical profile. Reason for exam: History of placental abruption COMPARISON: 06/05/2025 TECHNIQUE: Transabdominal imaging of the gravid uterus was obtained. FINDINGS: The cylindrical mixer reports a BPP of 8 out of 8. ELIZABETH is normal at 21.3 cm. heart rate 142 bpm. US/US OB BPP w non-stress IMPRESSION: BPP 8 out of 8. Impression dictated by: Serafin Sorto Jr., D.O. 06/11/2025 11:45 AM Dictation [facility] Electronically authenticated by: [id number] Y Date: 06/11/2025 11:45
--- OUTSIDE RECORDS SUMMARY | 2025-06-11 10:03 | XMS_ITS | Encounter Summary ---
Author Organization [facility] Address [address] [place] [address] Care Team Providers Care Agriculture Consultant Name Role Phone Unavailable Primary Care Provider Unavailabl e Encounter Details Date Type Department Care Team (Late st Contact Info) Description 05/29/2025 Telephone [facility] [address] [place] [address] [place] [address] Tony Pringle, [address] [place] [address] Social History Tobacco Use Types Packs/Day [...] she states that she was referred to [facility] and they contacted her today to schedule an appointment and that they would like to see her tomorrow at 9:30 but she has an appointment in our office and the next appointment would not be until July and she will have had thebaby by then. Patient asking what to do. Patient was advised Dr would peggy her to see [facility] and if shecan schedule that appointment for tomorrow to do so and we will reschedule her office visit with us. Patient voiced understanding and was transferred to clerical to reschedule appointment. documented in this encounter Plan of Treatment Upcoming Encounters Date Type Department Care Team (Late st Contact Info) Description 06/20/2025 2:30 PM EDT Routine [facility] [address] [place] [phone] Tony Pringle DO [address] [facility] [place] [address] documented as of this encounter Visit Diagnoses Not on filedocumented in this encounter
--- OUTSIDE RECORDS SUMMARY | 2025-06-11 10:03 | XMS_ITS | Encounter Summary ---
Author Organization [facility] Address [address] [place] [address] Care Team Providers Care Porcelain Enameling Supervisor Name Role Phone Unavailable Primary Care Provider Unavailabl e Encounter Details Date Type Department Care Team (Late st Contact Info) Description 06/08/2025 Clinisync Result Encounter [facility] External Department Unsolicited Tony Pringle DO [address] [place], [place] [phone] Social History Tobacco Use Types Packs/Day Years [...] Description 06/20/2025 2:30 PM EDT [facility]ine [facility] [address] [place] [address] Tony Pringle DO [address] [place] [address] documented as of this encounter Procedures Procedure Name Priority Date/Time Associated Diagnosis Comments MLR HEMOGLOBIN A1C Routine 06/08/2025 11 :34 AM EDT documented in this encounter Results * MLR HEMOGLOBIN A1C (06/08/2025 11:34 AM EDT) GLYCOHEMOGLOBIN A1C 4.6 4.5 - 6.2 % [facility] Comment: ADA RECOMMENDED LIMIT 4.0 - 6.0 ADA THERAPEUTIC TARGET < 7.0 ACTION SUGGESTED > 7.0 ESTIMATED AVERAGE GLUCOSE 85 mg/dL TB 06/08/2025 11:3 4 AM EDT 06/08/2025 11:37 AM EDT Narrative [facility] - 06/08/2025 12:21 PM EDT us Tony Yary DO [facility] Final [facility] documented in this encounter Visit Diagnoses Not on filedocumented in this encounter
--- OUTSIDE RECORDS SUMMARY | 2025-06-11 10:03 | XMS_ITS | Encounter Summary ---
Author Organization [facility] Address [id number] [address] [place] [address] Care Team Providers Care Manufacturing Quality Technician Name Role Phone No Pcp, No Pcp Primary Care Provider Unavailabl e Encounter Details Date Type Department Care Team (Late Contact Info) Description 05/30/2025 Abstract Maternal- Medicine at [facility] [address] [place] [phone] Nohemy Hernandez MD [address] [facility], 1ST FLOOR [place], [place] [id number] Social History Tobacco Use Types Packs/Day Years [...] Upcoming Encounters Date Type Department Care Team ([facility] Contact Info) Description 07/05/2025 1:00 PM EDT Appointment [facility] US Imaging [address] [place] [phone] 07/05/2025 2:30 PM EDT Office Visit Maternal- Medicine at [facility] [address] [facility] [place] [phone] Tasia Dowd MD [address] [facility] 1st Floor [place], [place] [phone] documented as of this encounter Procedures Procedure [...] ORDERABLES Final Re sult Performing Organization Address City/[facility] Co de [...] ORDERABLES Final Re sult Performing Organization Address [facility] de Phone Number MANUALLY TRANSCRIBED RESULTS * CBC without diff (05/21/2025) Hemoglobin 10.8 MANUALLY TRANSCRIBED RESULTS Hematocrit 30.6 MANUALLY TRANSCRIBED RESULTS Rbc Mcv (Fl) By Automated Count 79.3 MANUALLY TRANSCRIBED RESULTS Platelets 176 MANUALLY TRANSCRIBED RESULTS Blood Venous blood / Unknown us Not In System Ref Prov LAB BLOOD ORDERABLES Yun l Result Performing Organization Address [facility] Co de Phone Number MANUALLY TRANSCRIBED RESULTS documented in this encounter Visit Diagnoses Not on filedocumented in this encounter Care Teams Manufacturing Quality Technician Relationship Specialty Start Date End Date No Pcp, [place] [address] PCP - General Family Medicine 04/27/20 documented as of this encounter
--- OUTSIDE RECORDS SUMMARY | 2025-06-11 10:03 | XMS_ITS | Encounter Summary ---
Author Organization [facility] Address [address] [place] [address] Care Team Providers Care Corner Bead Operator Name Role Phone Unavailable Primary Care Provider Unavailabl e Encounter Details Date Type Department Care Team (Late st Contact Info) Description 05/30/2025 Telephone [facility] [address] [place] [address] Tony Pringle, [address] [place] [address] Social History [...] - 05/30/2025 9:24 AM EDT 9:04 am Mt, this is Paradise calling from maternal medicine over at [facility]. We are scheduled to see Carmelita [...] clarifies her history. Our fax number is [phone]. And my direct phone number is [phone]. Thank you, anita howard. 9:20 am- Called and spoke with Paradise and tea advise do not see any Genetic testing on patient and confirmed per Flow sheet she is . After more research into chart saw patient would be and consents for with information was sent to [facility] and updated in chart. documented in this encounter Plan of Treatment Upcoming Encounters Date Type Department Care Team (Late st Contact Info) Description 06/20/2025 2:30 PM EDT Routine [facility] [address] [place] [address] Tony Pringle DO [address] [place] [address] documented as of this encounter Visit Diagnoses Not on filedocumented in this encounter
--- OUTSIDE RECORDS SUMMARY | 2025-06-11 10:03 | XMS_ITS | Encounter Summary ---
Author Organization [facility] Address [id number] [address] [place] [address] Care Team Providers Care Spectrographic Analyst Name Role Phone No Pcp, No Pcp Primary Care Provider Unavailabl e Encounter Details Date Type Department Care Team (Late Contact Info) Description 05/30/2025 Orders Only Maternal- Medicine at [facility] [address] [place] [phone] Ref Prov, [place] [address] Social History Tobacco Use Types Packs/Day Years [...] Info) Description 07/05/2025 1:00 PM EDT Appointment [facility] US Imaging [address] [place] [phone] 07/05/2025 2:30 PM EDT Office Visit Maternal- Medicine at [facility] [address] [place] [phone] Tasia Dowd MD [address] 1[address] [place] [address] documented as of this encounter Procedures Procedure [...] on filedocumented in this encounter Care Teams Spectrographic Analyst Relationship Specialty Start Date End Date No Pcp, [place] [address] PCP - General Family Medicine 04/27/20 documented as of this encounter
--- OUTSIDE RECORDS SUMMARY | 2025-06-11 10:03 | XMS_ITS | Encounter Summary ---
Author Organization [facility] Address [address] [place] [address] Care Team Providers Care Creeler Name Role Phone Unavailable Primary Care Provider Unavailabl e Encounter Details Date Type Department Care Team (Late st Contact Info) Description 06/07/2025 Bamboo flowsheet [facility] [address] [place] [address] Tony Pringle DO [address] [place], [facility] Social History Tobacco Use Types [...] 2:30 PM EDT Routine [facility] [address] [place] [address] Tony Pringle DO [address] [place] [address] documented as of this encounter Visit Diagnoses Not on filedocumented in this encounter
--- OUTSIDE RECORDS SUMMARY | 2025-06-11 10:03 | XMS_ITS | Encounter Summary ---
Author Organization [facility] Address [id number] [address] [place] [address] Care Team Providers Care Doggy Daycare Activities Director Name Role Phone No Pcp, No Pcp Primary Care Provider Unavailabl e Encounter Details Date Type Department Care Team (Late st Contact Info) Description 05/30/2025 Abstract Maternal- Medicine at [facility] [address] [place] [phone] Nohemy Hernandez MD [address] [facility], [address]ST FLOOR [place], [place] [phone] Social History Tobacco Use Types Packs/Day Years [...] Info) Description 07/05/2025 1:00 PM EDT Appointment [facility] - [facility] US Imaging [address] [place] [phone] 07/05/2025 2:30 PM EDT Office Visit Maternal- Medicine at [facility] [address] [place] [phone] Tasia Dodw MD [address] [facility] 1st [place] [address] documented as of this encounter Visit Diagnoses Not on filedocumented in this encounter Care Teams Doggy Daycare Activities Director Relationship Specialty Start Date End Date No Pcp, [place] [address] PCP - General Family Medicine 04/27/20 documented as of this encounter
--- OUTSIDE RECORDS SUMMARY | 2025-06-11 10:03 | XMS_ITS | Encounter Summary ---
Author Organization [facility] Address [address] [place] [address] Care Team Providers Care Inspector Receiving Name Role Phone Unavailable Primary Care Provider Unavailabl e Encounter Details Date Type Department Care Team (Late Contact Info) Description 05/30/2025 External Result Encounter [facility] [address] [place] [address] Mee Pringle DO [facility] [place] [address] Social History Tobacco Use Types Packs/Day [...] Routine [facility] [address] [place] [address] Mee Pringle DO [address] [place] [address] documented as of this encounter Procedures Procedure Name Priority Date/Time Associated Diagnosis Comments US OB 14+ WEEKS ANATOMY SCAN 05/30/2025 12:58 PM EDT documented in this encounter Results * US OB 14+ weeks anatomy scan (05/30/2025 12:58 PM EDT) Anatomical Region Laterality Modality Body Ultrasound 05/30/2025 12:5 8 PM EDT Narrative 05/30/2025 12:58 PM EDT THIS EXAM WAS PERFORMED AT [facility] NAME: YOAV MNUOZ : 1990 SEX: F Accession Number: [id number] ORDERING PHYSICIAN: MEE PRINGLE REFERRING PHYSICIAN: MEE PRINGLE Coding ----- --------- Procedures [id number]: Ultrasound, uterus, real time with image documentation, and maternal evaluation plus detailed anatomic examination, transabdominal approach;single or first gestation Indication ----- --------- Screening for Anatomic Survey, Hepatitis C in , Malformation of placenta- complete circumvallate,History of prior with delivery- placental abruption, Previous History ----- --------- OB History 4. Para 3 [id number] Maternal Assessment ----- --------- Physical Exam Initial [...] EFW (oz) 14 oz EFW by: Hadlock ([id number]) Extended Tibia 48.3 mm 29w 1d 6% Mara Certified Adaptive Physical Educator 2.3 mm CM 9.6 mm 95% Nicolaides [...] view. RVOT view. LVOT view. 3-vessel view. 1-kysnez-oeanmka view. Situs. Bicaval view. Interventricular septum. Great [...] - 05/30/2025 THIS EXAM WAS PERFORMED AT [facility] NAME: YOAV MUNOZ : 1990 SEX: F Accession Number: [id number] ORDERING PHYSICIAN: MEE PRINGLE REFERRING PHYSICIAN: MEE PRINGLE Coding ----- --------- Procedures [id number]: Ultrasound, uterus, real time with imagedocumentation, and maternal evaluation plus detailed anatomic examination, transabdominalapproach;single or first gestation Indication ----- --------- Screening for Anatomic Survey, Hepatitis C in , Malformation ofplacenta- complete circumvallate,History of prior with delivery- placental abruption, Previous History ----- --------- OB History 4. Para 3 [id number] Maternal Assessment ----- --------- Physical Exam Initial [...] EFW (oz) 14 oz EFW by: Hadlock ([id number]) Extended Tibia 48.3 mm 29w 1d 6% Mara Certified Adaptive Physical Educator 2.3 mm CM 9.6 mm 95% Nicolaides [...] 4-chamber view. RVOT view. LVOT view. 3-vessel view.4-eunfgw-vjfvapo view. Situs. Bicaval view. Interventricular septum. Great [...] byprimary OB provider unless otherwise specified by [facility]. Results forwarded to ordering provider so they can follow up with thepatient as necessary. us Mee Pringle DO IMG OB US PROCEDURES Final Resul t documented in this encounter Visit Diagnoses Not on filedocumented in this encounter
--- OUTSIDE RECORDS SUMMARY | 2025-06-11 10:03 | XMS_ITS | Encounter Summary ---
Author Organization [facility] Address [address] [place] [address] Care Team Providers Care Molder Name Role Phone Unavailable Primary Care Provider Unavailabl e Encounter Details Date Type Department Care Team (Late st Contact Info) Description 07/05/2015 Abstract [facility] [address] [facility] [place] [place] [address] Tony Pringle DO [address] [place], [facility]11 Social History Tobacco Use Types Packs/Day Years [...] EDT Routine HALEY CAMPBE[facility] [address] [place] [address] Tony Pringle DO [address] [place], [facility]11 documented as of this encounter Visit Diagnoses Not on filedocumented in this encounter
--- OUTSIDE RECORDS SUMMARY | 2025-06-11 10:03 | XMS_ITS | Encounter Summary ---
Author Organization [facility] Address [address] [place] [address] Care Team Providers Care Ground Crewman Mission Support Name Role Phone Unavailable Primary Care Provider Unavailabl e Encounter Details Date Type Department Care Team (Late st Contact Info) Description 05/28/2025 Abstract [facility] [address] [place] [address] Tony Pringle DO [address] [place] [address] Social History Tobacco Use Types Packs/Day [...] EDT Routine [facility] [address] [place] [address] Tony Pringle DO [address] [place], [facility]11 documented as of this encounter Visit Diagnoses Not on filedocumented in this encounter
--- OUTSIDE RECORDS SUMMARY | 2025-06-11 10:04 | XMS_ITS | Encounter Summary ---
Author Organization [place] Address [id number] [address] [place] [address] Care Team Providers Care Solid Glass Rod Dowel Machine Operator Name Role Phone No Pcp, No Pcp Primary Care Provider Unavailabl e Encounter Details Date Type Department Care Team (Late Contact Info) Description 05/30/2025 Orders Only Maternal- Medicine at [facility] [address] [place] [phone] Paradise Raya LPN Social History Tobacco Use [...] 07/05/2025 1:00 PM EDT Appointment [facility] US Imaging [address] [facility] [place] [phone] 07/05/2025 2:30 PM EDT Office Visit Maternal- Medicine at [facility] [address] [facility] [place] [address] Tasia Dowd MD [address] [facility] 1[address] [place] [address] documented as of this encounter Visit Diagnoses Not on filedocumented in this encounter Care Teams Solid Glass Rod Dowel Machine Operator Relationship Specialty Start Date End Date No Pcp, [place] [address] PCP - General Family Medicine 04/27/20 documented as of this encounter
--- OUTSIDE RECORDS SUMMARY | 2025-06-11 10:04 | XMS_ITS | Clinical Summary ---
Author Organization [facility] Address [address] [place] [address] Care Team Providers Care Advertisement Distributor Name Role Phone Unavailable Primary Care [...] MG tabletIndicatio ns: headache in second trimester ([facility]) Take 1 tablet (400 mg) by mouth Daily 30 tablet 11 04/13/2025 04/13/20 26 Active Encounters Date Type Department Care Team Description 06/08/2025 Clinisync Result Encounter [facility]OM[facility] External Department Unsolicited Mee Pringle DO 06/07/2025 9:40 AM [place] [address] Mee Pringle, Third trimester ([facility]); 32 weeks gestation of ([facility]); H/O opioid abuse ([facility]); History of placental abruption; Diabetes mellitus screening 06/07/2025 [place] [address] Mee Pringle DO 06/05/2025 Clinisync Result Encounter NOMS External Department Unsolicited Mee Pringle DO 05/30/2025 Abstract [facility] [place] [facility] [address] [facility] [address] Mee Pringle, DO 05/30/2025 External Result Encounter [facility] [place] [facility] [address] [facility] [address] Mee Pringle, DO 05/30/2025 Telephone [facility] [place] [facility] [facility] [place] [address] Mee Pringle, DO 05/29/2025 Telephone [facility] [place] [facility] [address] [place] [address] [place] [address] Mee Pringle, DO 05/28/2025 Abstract [facility] [place] [facility] [address] [place] [address] [place] [address] Mee Pringle, DO 05/21/2025 Clinisync Result Encounter NOMS External Department Unsolicited Mee Pringle, DO 05/16/2025 11:00 AM EDT Routine [facility] [place] [facility] [place] [address] Mee Pringle, DO 29 weeks gestation of ([facility]); Third trimester ([facility]); Request for sterilization; H/O opioid abuse ([facility]); History of placental abruption; Abnormal ultrasonic finding on screening of mother, antepartum 05/16/2025 Bamboo flowsheet [facility] [place] [facility] [facility] [place] [address] Mee Pringle, DO 05/02/2025 3:20 PM EDT Routine [facility] [place] [address] Mee Pringle, DO Second trimester ([facility]); 27 weeks gestation of ([facility]); Request for sterilization; H/O opioid abuse ([facility]); History of placental abruption 05/02/2025 Bamboo flowsheet [facility] [place] [facility] [address] [facility] [address] Mee Pringle DO 04/18/2025 1:30 PM EDT Routine [facility] [place] [facility] [address] [place] [address] Mee Pringle, Second trimester ([facility]); 25 weeks gestation of ([facility]); Abnormal ultrasonic finding on screening of mother, antepartum 04/18/2025 Bamboo flowsheet [facility] [place] [facility] [address] [facility] [address] Mee Pringle DO 04/09/2025 Clinisync Result Encounter NOMS External Department Unsolicited Paradise Olvera PA 04/09/2025 Clinisync Result Encounter NOMS External Department Unsolicited Paradise Olvera PA 04/06/2025 11:00 AM EDT Initial [facility] [place] [facility] [address] [place] [address] [place]: 23w6d from Last 3 Months Family [...] PM EDT Routine [facility] [place] [facility] [address] [facility] [address] Mee Pringle, [address] [facility] [place] [address] Health Maintenance Due Date Last Done Comments Pap Smear 2013 Cervical Cancer Screening 2022 HPV/Cotest 2022 Influenza Vaccine (#1) 2025 Procedures Procedure Name Priority Date/Time Associated Diagnosis Comments CULTURE, URINE, ROUTINE Routine 06/11/2025 8:47 AM EDT Missed menses MLR HEMOGLOBIN A1C Routine 06/08/2025 11 :34 AM EDT POCT URINALYSIS DIPSTICK Routine 06/07/2025 10:26 AM EDT Third trimester ([facility]) US OB BPP W NON-STRESS 06/05/2025 [...] 11:03 AM EDT 29 weeks gestation of ([facility]) Third trimester ([facility]) POCT URINALYSIS DIPSTICK Routine 04/18/2025 1:44 PM EDT Second trimester ([facility]) US OB ANATOMY 04/09/2025 1:01 PM EDT OB CERVICAL LENGTH 04/09/2025 1:01 PM EDT POCT URINALYSIS DIPSTICK Routine 04/06/2025 11:13 AM EDT Missed menses POCT , URINE Routine 04/06/2025 11:13 AM EDT Missed menses from Last 3 Months Results * Urine culture (06/11/2025 8:47 AM EDT) Urine Urine specimen obtained by clean catch procedure / Unknown us Mee Pringle DO LAB MICROBIOLOGY - GENERAL ORDER FAYE Final Result EXTERNAL LAB * MLR HEMOGLOBIN A1C (06/08/2025 11:34 AM EDT) Only the most recent of2 resultswithin the time period is included. GLYCOHEMOGLOBIN A1C 4.6 4.5 - 6.2 % [facility] Comment: ADA RECOMMENDED LIMIT 4.0 - 6.0 ADA THERAPEUTIC TARGET < 7.0 ACTION SUGGESTED > 7.0 ESTIMATED AVERAGE GLUCOSE 85 mg/dL [facility] 06/08/2025 11:3 4 AM EDT 06/08/2025 11:37 AM EDT Narrative [facility]IN[facility] - 06/08/2025 12:21 PM EDT us Mee Yary DO CLINISYNC Final Result CLINISYNC [facility] * (ABNORMAL) POCT urinalysis dipstick manually resulted [...] Positive Urine 06/07/2025 10:2 6 AM EDT Mee Yary DO POINT OF CARE TEST ENTER/EDIT OR DERABLES Final Result * US OB BPP W NON-STRESS (06/05/2025 12:03 PM EDT) Anatomical Region Laterality Modality Other 06/05/2025 12:0 3 PM EDT Narrative 06/05/2025 12:06 [place] [address] Ultrasound Report Signed Patient: CARMELITA CASON MR#: [id number] : 1990 Acct:[id number] Age/Sex: 34 / F ADM Date: 06/05/25 Loc: US Attending Dr: Mee Pringle D.O. Ordering Physician: Mee Pringle D.O. Date of Service: 06/05/25 Procedure(s): US OB BPP w non-stress Accession Number(s): [id number] cc: ROMEO GAR ; Mee Pringle D.O. The [place] [address] Patient Name: CARMELITA CASON MRN: [id number] date: 1990 Sex: F Assigned Patient Location: US Current Patient Location: Accession/Order Number: [id number] Exam Date: 06/05/2025 11:53 Report Date: 06/05/2025 12:03 At the request of: MEE PRINGLE DO Procedure: US OB BPP w non-stress Biophysical profile. Reason for exam: History of opioid abuse COMPARISON: None TECHNIQUE: Transabdominal imaging of the gravid uterus was obtained. FINDINGS: The hook up driver reports a BPP of 8 out of 8. ELIZABETH is normal at 21 cm. heart rate 135 bpm. US/US OB BPP w non-stress IMPRESSION: BPP 8 out of 8. Impression dictated by: Serafin Sorto Jr., D.O. 06/05/2025 12:03 PM Dictation Location: [place] [address] Electronically authenticated by: [id number] Y Date: 06/05/2025 12:03 Dictated By: Serafin Sorto M.D. Signed By: 06/05/25 1206 DD/ 1203 TD/TT: Pharmaceutical Process Engineer: Procedure Note Radiology, Radiologist, MD - 06/05/2025 [place] [address] Ultrasound Report Signed Patient: CARMELITA CASON NMR#: [id number] : 1990Acct:[id number] Age/Sex: 34 / FADM Date: 06/05/25 Loc: US Attending Dr: Mee Pringle D.O. Ordering Physician: Mee Pringle D.O. Date of Service: 06/05/25 Procedure(s): US OB BPP w non-stress Accession Number(s): [id number] cc: ROMEO GAR ; Mee Pringle D.O. [facility] [place] [address] Patient Name: CARMELITA CASON MRN: [id number] date: 1990 Sex: F Assigned Patient Location: US Current Patient Location: Accession/Order Number: [id number] Exam Date: 06/05/2025 11:53 Report Date: 06/05/2025 12:03 At the request of: MEE PRINGLE DO Procedure: US OB BPP w non-stress Biophysical profile. Reason for exam: History of opioid abuse COMPARISON: None TECHNIQUE: Transabdominal imaging of the gravid uterus was obtained. FINDINGS: The hook up driver reports a BPP of 8 out of 8. ELIZABETH is normal at21 cm. heart rate 135 bpm. US/US OB BPP w non-stress IMPRESSION: BPP 8 out of 8. Impression dictated by: Serafin Sorto Jr., D.O. 06/05/2025 12:03 PM Dictation Location: [place] [address] Electronically authenticated by: [id number] Y Date: 2:03 Dictated By: Serafin Sorto M.D. Signed By:06/05/25 1206 DD/ 120 TD/TT: Pharmaceutical Process Engineer: us Mee Pringle DO CLINISYNC IMAGING Final Result * US OB 14+ weeks anatomy scan (05/30/2025 12:58 PM EDT) Anatomical Region Laterality Modality Body Ultrasound 05/30/2025 12:5 8 PM EDT Narrative 05/30/2025 12:58 PM EDT THIS EXAM WAS PERFORMED AT [facility] NAME: YOAV MUNOZ : 1990 SEX: F Accession Number: [id number] ORDERING PHYSICIAN: MEE PRINGLE REFERRING PHYSICIAN: MEE PRINGLE Coding ----- --------- Procedures 32496: Ultrasound, uterus, real time with image documentation, and maternal evaluation plus detailed anatomic examination, transabdominal approach;single or first gestation Indication ----- --------- Screening for Anatomic Survey, Hepatitis C in , Malformation of placenta- complete circumvallate,History of prior with delivery- placental abruption, Previous History ----- --------- OB History 4. Para 3 [id number] Maternal Assessment ----- --------- Physical Exam Initial [...] EFW (oz) 14 oz EFW by: Hadlock ([id number]-FL) Extended Tibia 48.3 mm 29w 1d 6% Mara Attending Psychiatrist 2.3 mm CM 9.6 mm 95% Nicolaides [...] view. RVOT view. LVOT view. 3-vessel view. 1-jrwbvv-evwsxzv view. Situs. Bicaval view. Interventricular septum. Great [...] placenta noted. Recommendations ----- --------- Please see [facility] documentation from today. The patient is scheduled in four week(s) to complete anatomic survey. Subsequent follow up or other follow up as clinically determined by primary OB provider unless otherwise specified by [facility]. Results forwarded to ordering provider so they can follow up with the patient as necessary. Procedure Note Radiology, Radiologist, - 05/30/2025 THIS EXAM WAS PERFORMED AT [facility] NAME: YOAV MUNOZ : 1990 SEX: F Accession Number: [id number] ORDERING PHYSICIAN: MEE PRINGLE REFERRING PHYSICIAN: MEE PRINGLE Coding ----- --------- Procedures 19142: Ultrasound, uterus, real time with imagedocumentation, and maternal evaluation plus detailed anatomic examination, transabdominalapproach;single or first gestation Indication ----- --------- Screening for Anatomic Survey, Hepatitis C in , Malformation ofplacenta- complete circumvallate,History of prior with delivery- placental abruption, Previous History ----- --------- OB History 4. Para 3 [id number] Maternal Assessment ----- --------- Physical Exam Initial [...] EFW (oz) 14 oz EFW by: Hadlock ([id number]-YY-FL) Extended Tibia 48.3 mm 29w 1d 6% Mara Attending Psychiatrist 2.3 mm CM 9.6 mm 95% Nicolaides [...] 4-chamber view. RVOT view. LVOT view. 3-vessel view.7-hniebs-uvwioxo view. Situs. Bicaval view. Interventricular septum. Great [...] 11:39 AM EDT) HBSAG SCREEN Negative Negative [facility] Comment: Performed at: [facility] [address] [id number] [employer] Silverer: Aric Pryor PhD, Phone: [phone] 05/21/2025 11:3 9 AM EDT 05/21/2025 11:46 AM EDT Narrative [facility] - 05/22/2025 12:09 PM EDT us Mee Yary DO LAB BLOOD ORDERABLES Final Resul t [facility] * RAPID PLASMA REAGIN, QUANT (05/21/2025 11:39 AM EDT) RAPID PLASMA REAGIN, QUANT Non Reactive NonRea<1: 1 titer [facility] Comment: Please Note: This test does not meet current guidelines for screening and diagnosis of syphilis. This test is intended for following treatment response in patients being treated for syphilis infection. To screen for syphilis infection, a reflex cascade that includes both RPR and a treponema-specific assay should be utilized, such as Treponema pallidum (Syphilis) Screening Bacon (534143) or Rapid Plasma Reagin (RPR) Test With Reflex to Quantitative RPR and Confirmatory Treponema pallidum Antibodies (767621). Performed at: [address] [id number] [employer] Sil[employer]r: Aric Pryor PhD, Phone: [phone] 05/21/2025 11:3 9 AM EDT 05/21/2025 11:46 AM EDT [facility] - 05/22/2025 12:09 PM EDT [employer] DO LAB BLOOD ORDERABLES Final Resul t Performing Organization Address [facility] Co de Phone Number [facility] * HIV AB/P24 AG WITH REFLEX (05/21/2025 11:39 AM EDT) HIV AB/P24 AG SCREEN Non Reactive Non Reactive [facility] Comment: HIV-1/HIV-2 antibodies and HIV-1 p24 antigen were NOT detected. There is no laboratory evidence of HIV infection. HIV Negative Performed at: [address] [id number] [employer] Silverer: Aric Pryor PhD, Phone: [phone] 05/21/2025 11:3 9 AM EDT 05/21/2025 11:46 AM EDT [facility] - 05/22/2025 5:08 AM EDT [employer] LAB BLOOD ORDERABLES Final Resul t Performing Organization Address [facility] Co de Phone Number [facility] * (ABNORMAL) HCV ANTIBODY RFX TO QUANT PCR (05/21/2025 11:39 AM EDT) HCV AB Reactive(A) Non Reactive [facility] HEPATITIS C QUANTITATION 64924 . IU/mL [facility] HCV LOG10 4.819 . [facility] Comment:Result Units: log10 IU/mL TEST INFORMATION: Comment . [facility] Comment: The quantitative range of this assay is 15 IU/mL to 100 million IU/mL. INTERPRETATION: Comment . [facility] Comment: Positive HCV antibody screen with the presence of HCV RNA is consistent with active infection. Performed at: [address] [id number] [employer]r: Aric Pryor PhD, Phone: [phone] Performed at: [address] [id number] [employer] Sil[employer]r: Miles Owens MD, Phone: [phone] 05/21/2025 11:3 9 AM EDT 05/21/2025 11:46 AM EDT Narrative CLIN[facility]YNC - 05/24/2025 3:08 PM EDT us Mee Yary DO LAB BLOOD ORDERABLES Final Resul t [facility] * ALL TYPE AND SCREEN (05/21/2025 11:39 AM EDT) Pathologist [facility] BLOOD TYPE B Positive [facility] ANTIBODY SCREEN NEGATIVE [facility] 05/21/2025 11:3 9 AM EDT 05/21/2025 11:46 AM EDT Narrative CLINISYNC - 05/21/2025 1:42 PM EDT The , us Mee Yary DO CLINISYNC Final Result [facility] * (ABNORMAL) ALL RUBELLA IGG AB (05/21/2025 11:39 AM EDT) Pathologist [facility] RUBELLA ANTIBODIES, IGG <0.90(A) Immune >0.99 index [facility] Comment: Non-immune <0.90 Equivocal 0.90 - 0.99 Immune >0.99 Performed at: [address] [id number] [employer]r: Aric Pryor PhD, Phone: [phone] 05/21/2025 11:3 9 AM EDT 05/21/2025 11:46 AM EDT Narrative CLIN[facility]YNC - 05/24/2025 3:08 PM EDT us Mee Pringle DO NELLYISYMARTHA Final Result [facility] TB * (ABNORMAL) ALL CBC WITH AUTO DIFF (05/21/2025 11:39 AM EDT) [facility] TB WBC 11.8(H) 4.0 - 11.0 10 [...] DO CLINISYNC Final Result Performing Organization Address [facility] Co de Phone Number [facility] * (ABNORMAL) BUPRENORPHINE CONFIRM, URINE (05/21/2025 11:24 AM EDT) BUPRENORPHINE Positive( A) . [facility] BUPRENORPHINE CONF, MS, UR 525 Cutoff=10 ng/mL [facility] NORBUPRENORPHINE Positive( A) . [facility] NORBUPRENORPHINE CONF, MS,UR 905 Cutoff=10 ng/mL [facility] Comment: Performed at: [facility] [place] [address] [place] [id number] [employer]: Soledad Mendieta PhD, Phone: [phone] 05/21/2025 11:2 4 AM EDT 05/21/2025 12:08 PM EDT Narrative CL[facility]YNC - 05/24/2025 12:09 PM EDT Mee Yary DO LAB BLOOD ORDERABLES Final Resul t Performing Organization Address [facility] Co de Phone Number [facility] * (ABNORMAL) [facility] DRUG SCREEN RAPID [...] 12:05 PM EDT us Mee Yary DO CLINISYWA Final Result [facility] * US OB CERVICAL LENGTH (04/09/2025 1:01 PM EDT) Anatomical Region Laterality Modality Other 04/09/2025 1:01 PM EDT Narrative 04/09/2025 1:04 [place] [address] Ultrasound Report Signed Patient: CARMELITA CASON MR#: [id number] : 1990 Acct:[id number] Age/Sex: 34 / F ADM Date: 04/09/25 Loc: US Attending Dr: Paradise Olvera Ordering Physician: Paradise Olvera Date of Service: 04/09/25 Procedure(s): US OB cervical length Accession Number(s): [id number] cc: Paradise Olvera; ROMEO GAR [place] [address] Patient Name: CARMELITA CASON MRN: [id number] date: 1990 Sex: F Assigned Patient Location: US Current Patient Location: US Accession/Order Number: [id number] Exam Date: 04/09/2025 12:20 Report Date: 04/09/2025 [...] all 4 extremities were surveyed by the hook up driver. No abnormalities were detected. The stomach, bladder, [...] Zelaya M.D. 04/09/2025 1:01 PM Dictation Location: [place] [address] Electronically authenticated by: [id number] Y Date: 04/09/2025 13:01 Dictated By: Raine Zelaya M.D. Signed By: 04/09/25 1304 DD/ 1301 TD/TT: Pharmaceutical Process Engineer: Procedure Note Radiology, Radiologist, MD - 04/09/2025 The [place] [id number] Ultrasound Report Signed Patient: CARMELITA CASON [facility]#: [id number] : 1990Acct:[id number] Age/Sex: 34 / FADM Date: 04/09/25 Loc: US Attending Dr: Paradise Olvera Ordering Physician: Paradise Olvera Date of Service: 04/09/25 Procedure(s): US OB cervical length Accession Number(s): [id number] cc: Paradise Olvera; ROMEO GAR [address] [address] Patient Name: CARMELITA CASON MRN: [id number] date: 1990 Sex: F Assigned Patient Location: US Current Patient Location: US Accession/Order Number: [id number] Exam Date: 04/09/2025 12:20 Report Date: 04/09/2025 [...] and all 4 extremities weresurveyed by the hook up driver. No abnormalities were detected. The stomach,bladder, kidneys, [...] Zelaya M.D. 04/09/2025 1:01 PM Dictation Location: [place] [address] Electronically authenticated by: [id number] Y Date: 3:01 Dictated By: Raine Zelaya M.D. Signed By:04/09/25 1304 DD/ 1301 TD/TT: Pharmaceutical Process Engineer: us Paradise MORROW [facility]IN[facility] IMAGING Final Result * US OB ANATOMY (04/09/2025 1:01 PM EDT) Anatomical Region Laterality Modality Other 04/09/2025 1:01 PM EDT Narrative 04/09/2025 1:04 [place] [address] Ultrasound Report Signed Patient: CARMELITA CASON MR#: [id number] : 1990 Acct:[id number] Age/Sex: 34 / F ADM Date: 04/09/25 Loc: US Attending Dr: Paradise Olvera Ordering Physician: Paradise Olvera Date of Service: 04/09/25 Procedure(s): US OB anatomy Accession Number(s): [id number] cc: Paradise Olvera; ROMEO GAR [place] [id number] Patient Name: CARMELITA CASON MRN: [id number] date: 1990 Sex: F Assigned Patient Location: US Current Patient Location: US Accession/Order Number: [id number] Exam Date: 04/09/2025 12:20 Report Date: 04/09/2025 [...] all 4 extremities were surveyed by the hook up driver. No abnormalities were detected. The stomach, bladder, [...] Zelaya M.D. 04/09/2025 1:01 PM Dictation Location: [place] [address] Electronically authenticated by: [id number] Y Date: 04/09/2025 13:01 Dictated By: Raine Zelaya M.D. Signed By: 04/09/25 1304 DD/ 1301 TD/TT: Pharmaceutical Process Engineer: Procedure Note Radiology, Radiologist, MD - 04/09/2025 [place] [address] Ultrasound Report Signed Patient: CARMELITA CASON [facility]#: [id number] : 1990Acct:[id number] Age/Sex: 34 / FADM Date: 04/09/25 Loc: US Attending Dr: Paradise Olvera Ordering Physician: Paradise Olvera Date of Service: 04/09/25 Procedure(s): US OB anatomy Accession Number(s): [id number] cc: Paradise Olvera; ROMEO GAR [facility] [place] [address] Patient Name: CARMELITA CASON MRN: [facility]:[id number] date: 1990 Sex: F Assigned Patient Location: Current Patient Location: Accession/Order Number: [id number] Exam Date: 04/09/2025 12:20 Report Date: 04/09/2025 [...] and all 4 extremities weresurveyed by the hook up driver. No abnormalities were detected. The stomach,bladder, kidneys, [...] Zelaya M.D. 04/09/2025 1:01 PM Dictation Location: [place] [address] Electronically authenticated by: [id number] Y Date: 3:01 Dictated By: Raine Zelaya M.D. Signed By:04/09/25 1304 DD/ 1301 TD/TT: Pharmaceutical Process Engineer: us Paradise MORROW [facility] IMAGING Final Result * (ABNORMAL) POCT , urine manually resulted (04/06/2025 11:13 AM EDT) Preg Test, Ur Positive Negative Urine 04/06/2025 11:1 3 AM EDT Mee Pringle DO POINT OF CARE TEST ENTER/EDIT OR DERABLES Final Result from Last 3 Months Insurance [employer]
--- OUTSIDE RECORDS SUMMARY | 2025-06-11 10:04 | XMS_ITS | Encounter Summary ---
Author Organization [facility] Address [id number] [place] [address] Care Team Providers Care Soaking Room Operator Name Role Phone No Pcp, No [...] Info) Description 07/05/2025 1:00 PM EDT Appointment [facility] Imaging [address] [place] [id number] 07/05/2025 2:30 PM EDT Office Visit Maternal- Medicine at [facility] [address] [place] [address] Tasia Dowd MD [address] [place] [address] documented as of this encounter Visit Diagnoses Not on filedocumented in this encounter Care Teams Soaking Room Operator Relationship Specialty Start Date End Date No Pcp, [place] [address] PCP - General Family Medicine 04/27/20 documented as of this encounter
--- OUTSIDE RECORDS SUMMARY | 2025-06-11 10:04 | XMS_ITS | Encounter Summary ---
Author Organization [facility] Address [address] [place] [address] Care Team Providers Care Motivational Speaker Name Role Phone Unavailable Primary Care Provider Unavailabl e Encounter Details Date Type Department Care Team (Late st Contact Info) Description 05/30/2025 Abstract NOMJennifer [facility] [address] [place], [place] [address] [address] Tony Pringle DO [address] [place] [address] Social History Tobacco Use Types Packs/Day [...] EDT Routine NOMJennifer [facility] [address] [place] [address] Tony Pringle DO [address] [place], [facility] documented as of this encounter Visit Diagnoses Not on filedocumented in this encounter
--- OUTSIDE RECORDS SUMMARY | 2025-06-11 10:04 | XMS_ITS | Encounter Summary ---
Author Organization [facility] Address [address] [place] [address] Care Team Providers Care Crime Scene Evidence Technician Name Role Phone Unavailable Primary Care Provider Unavailabl e Encounter Details Date Type Department Care Team (Late st Contact Info) Description 07/09/2015 Abstract [facility] [address] [facility] [place] [address] Tony Pringle DO [address] [place], [facility]11 Social History Tobacco Use Types [...] EDT Routine HALEY CAMPBELL [address] [place] [address] Tony Pringle DO [address] [place], [facility]11 documented as of this encounter Visit Diagnoses Not on filedocumented in this encounter
--- OUTSIDE RECORDS SUMMARY | 2025-06-11 10:04 | XMS_ITS | Clinical Summary ---
Author Organization [facility] Address [id number] [address] [place] [address] Care Team Providers Care [employer] Name Role Phone No Pcp, No Pcp [...] AM EDT Office Visit Maternal- Medicine at [facility] [address] [place] [phone] Nohemy Hernandez MD History of placental abruption (Primary Dx); Hepatitis C virus infection without hepatic coma, unspecified chronicity 05/30/2025 9:15 AM EDT - 05/30/2025 11:59 PM EDT Hospital Encounter [facility] US Imaging [address] [place] [phone] Screening, , for anatomic survey Discharge Disposition: Home 05/30/2025 Orders Only [facility]- Medicine at [facility] [address] [place] [phone] Paradise Raya LPN 05/30/2025 Travel 05/30/2025 Abstract Maternal- Medicine at [facility] [address] [place] [phone] Nohemy Hernandez MD 05/30/2025 Orders Only Maternal- Medicine at [facility] [address] [place] [phone] Ref Prov, Not In System 05/30/2025 Abstract [facility]- Medicine at [facility] [address] [place] [phone] Nohemy Hernandez MD from Last 3 Months [...] Info) Description 07/05/2025 1:00 PM EDT Appointment [facility] US Imaging [address] [place] [phone] 07/05/2025 2:30 PM EDT Office Visit [facility]- Medicine at [facility] [address] [place] [phone] Tasia Dowd MD [address] [facility] [address] [place] [address] Health Maintenance Due Date Last Done Comments [...] Name Priority Date/Time Associated Diagnosis Comments US [facility] COMPREHENSIVE ANATOMIC SURVEY Routine 05/30/2025 10:52 [...] from Last 3 Months Results * US [facility] COMPREHENSIVE ANATOMIC SURVEY (05/30/2025 10:52 AM EDT) Anatomical Region Laterality Modality OB-[employer] Ultrasound 05/30/2025 9:40 AM EDT Narrative 05/30/2025 12:58 PM EDT NAME: YOAV MUNOZ : 1990 SEX: F Accession Number: [id number] ORDERING PHYSICIAN: MEE PRINGLE REFERRING PHYSICIAN: MEE PRINGLE Coding ----- --------- Procedures [id number]: Ultrasound, uterus, real time with image documentation, and maternal evaluation plus detailed anatomic examination, transabdominal approach;single or first gestation Indication ----- --------- Screening for Anatomic Survey, Hepatitis C in , Malformation of placenta- complete circumvallate,History of prior with delivery- placental abruption, Previous History ----- --------- OB History 4. Para 3 [id number] Maternal Assessment ----- --------- Physical Exam Initial [...] EFW (oz) 14 oz EFW by: Hadlock ([id number]) Extended Tibia 48.3 mm 29w 1d 6% Mara Computer Engineering Technologist 2.3 mm CM 9.6 mm 95% Nicolaides [...] view. RVOT view. LVOT view. 3-vessel view. 7-uafyfx-bwhkdkd view. Situs. Bicaval view. Interventricular septum. Great [...] placenta noted. Recommendations ----- --------- Please see [facility] documentation from today. The patient is scheduled in four week(s) to complete anatomic survey. Subsequent follow up or other follow up as clinically determined by primary OB provider unless otherwise specified by [facility]. Results forwarded to ordering provider so they can follow up with the patient as necessary. Procedure Note Nohemy Hernandez MD - 05/30/2025 NAME: YOAV MUNOZ : 1990 SEX: F Accession Number: [id number] ORDERING PHYSICIAN: MEE PRINGLE REFERRING PHYSICIAN: MEE PRINGLE Coding ----- --------- Procedures [id number]: Ultrasound, uterus, real time with imagedocumentation, and maternal evaluation plus detailed anatomic examination, transabdominalapproach;single or first gestation Indication ----- --------- Screening for Anatomic Survey, Hepatitis C in , Malformation ofplacenta- complete circumvallate,History of prior with delivery- placental abruption, Previous History ----- --------- OB History 4. Para 3 [id number] Maternal Assessment ----- --------- Physical Exam Initial [...] previous U/S 31 w + 4 d GINA by previous Ultrasound: 07/28/2025 Ultrasound examination on: [...] EFW (oz) 14 oz EFW by: Hadlock ([id number]) Extended Tibia 48.3 mm 29w 1d 6% Mara Computer Engineering Technologist 2.3 mm CM 9.6 mm 95% Nicolaides [...] 4-chamber view. RVOT view. LVOT view. 3-vessel view.4-cnxbvx-ehtdzsg view. Situs. Bicaval view. Interventricular septum. Great [...] placenta noted. Recommendations ----- --------- Please see [facility] documentation from today. The patient is scheduled in four week(s) to complete anatomic survey. Subsequent follow up or other follow up as clinically determined byprimary OB provider unless otherwise specified by M. Results forwarded to ordering provider so they can follow up with thepatient as necessary. us Mee Pringle DO [facility] US ORDERABLES Final Result * Ultrasound - [...] ORDERABLES Yun l Result Performing Organization Address City/[facility]/ZIP Co de Phone Number MANUALLY TRANSCRIBED RESULTS * Rubella IGG immune status (05/21/2025) Rubella immune IgG <0.90 MANUALLY TRANSCRIBED RESULTS Blood Venous blood / Unknown us Not In System Ref Prov LAB BLOOD ORDERABLES Yun l Result Performing Organization Address City/[facility]/ZIP Co de Phone Number MANUALLY TRANSCRIBED RESULTS * Syphilis Total (Unknown Syphilis Status) (05/21/2025) Syphilis NON-REACTI VE MANUALLY TRANSCRIBED RESULTS Blood Venous blood / Unknown us Not In System Ref Prov LAB BLOOD ORDERABLES Yun l Result Performing Organization Address City/[facility]/ZIP Co de Phone Number MANUALLY TRANSCRIBED RESULTS * Hepatitis C(HCV) Ab w/ Reflex to PCR (05/21/2025) Hepatitis C Antibody REACTIVE MANUALLY TRANSCRIBED RESULTS Blood Venous blood / Unknown us Not In System Ref Prov LAB BLOOD ORDERABLES Yun l Result Performing Organization Address City/[facility]/ZIP Co de Phone Number MANUALLY TRANSCRIBED RESULTS [...] ORDERABLES Final Re sult Performing Organization Address [facility] de Phone Number MANUALLY TRANSCRIBED RESULTS * Hepatitis B surface antigen (05/21/2025) Hepatitis B Surface Antigen NEGATIVE MANUALLY TRANSCRIBED RESULTS Blood Venous blood / Unknown us Not In System Ref Prov LAB BLOOD ORDERABLES Yun l Result Performing Organization Address [facility] de Phone Number MANUALLY TRANSCRIBED RESULTS * CBC without diff (05/21/2025) Hemoglobin 10.8 MANUALLY TRANSCRIBED RESULTS Hematocrit 30.6 MANUALLY TRANSCRIBED RESULTS Rbc Mcv (Fl) By Automated Count 79.3 MANUALLY TRANSCRIBED RESULTS Platelets 176 MANUALLY TRANSCRIBED RESULTS Blood Venous blood / Unknown us Not In System Ref Prov LAB BLOOD ORDERABLES Yun l Result Performing Organization Address [facility] de Phone Number MANUALLY TRANSCRIBED RESULTS * Type and screen (05/21/2025) Abo/Rh(D) B Positive MANUALLY TRANSCRIBED RESULTS Antibody Screen NEGATIVE MANUALLY TRANSCRIBED RESULTS Blood Venous blood / Unknown us Not In System Ref Prov BLOOD BANK TEST ORDERABLE S Final Result Performing Organization Address [facility] de Phone Number MANUALLY TRANSCRIBED RESULTS * Hemoglobin A1c (05/21/2025) Hemoglobin A1C 4.7 4.0 - 6.0 % MANUALLY TRANSCRIBED RESULTS Blood Venous blood / Unknown us Nohemy Hernandez MD LAB BLOOD ORDERABLES Final Re sult MANUALLY TRANSCRIBED RESULTS from Last 3 Months Insurance [place] [employer] Care Teams [employer] Relationship Specialty Start Date End Date No Pcp, No Pcp RUY Stephen [phone] PCP - General Family Medicine 04/27/20
--- OUTSIDE RECORDS SUMMARY | 2025-06-11 10:04 | XMS_ITS | Encounter Summary ---
Author Organization [facility] Address [address] [place] [address] Care Team Providers Care Foam Rubber Molder Name Role Phone Unavailable Primary Care Provider Unavailabl e Encounter Details Date Type Department Care Team (Late st Contact Info) Description 06/05/2025 Clinisync Result Encounter [facility] Department Unsolicited Mee Pringle DO [address] [place], [place] [id number] Social History Tobacco Use Types Packs/Day Years [...] [facility] [address] [place] [address] Mee Pringle DO [address] [place] [address] documented as of this encounter Procedures Procedure Name Priority Date/Time Associated Diagnosis Comments US OB BPP W NON-STRESS 06/05/2025 12:03 PM EDT documented in this encounter Results * US OB BPP W NON-STRESS (06/05/2025 12:03 PM EDT) Anatomical Region Laterality Modality Other 06/05/2025 12:0 3 PM EDT Narrative 06/05/2025 12:06 [place] [address] Ultrasound Report Signed Patient: CARMELITA YANEZ MR#: [id number] : 1990 Acct:[id number] Age/Sex: 34 / F ADM Date: 06/05/25 Loc: US Attending Dr: Mee Pringle D.O. Ordering Physician: Mee Pringle D.O. Date of Service: 06/05/25 Procedure(s): US OB BPP w non-stress Accession Number(s): [id number] cc: ROMEO GAR ; Mee Pringle D.O. [place] [address] Patient Name: CARMELITA YANEZ MRN: [id number] date: 1990 Sex: F Assigned Patient Location: Current Patient Location: Accession/Order Number: [id number] Exam Date: 06/05/2025 11:53 Report Date: 06/05/2025 12:03 At the request of: MEE PRINGLE DO Procedure: US OB BPP w non-stress Biophysical profile. Reason for exam: History of opioid abuse COMPARISON: None TECHNIQUE: Transabdominal imaging of the gravid uterus was obtained. FINDINGS: The blow torch operator reports a BPP of 8 out of 8. ELIZABETH is normal at 21 cm. heart rate 135 bpm. US/US OB BPP w non-stress IMPRESSION: BPP 8 out of 8. Impression dictated by: Serafin Sorto Jr., D.O. 06/05/2025 12:03 PM Dictation Location: [place] [address] Electronically authenticated by: [id number] Y Date: 06/05/2025 12:03 Dictated By: Serafin Sorto M.D. Signed By: 06/05/25 1206 DD/ 120 TD/TT: Cleat Blanker: Procedure Note Radiology, Radiologist, - 06/05/2025 [place] [address] Ultrasound Report Signed Patient: CARMELITA YANEZ NMR#: [id number] : 1990Acct:[id number] Age/Sex: 34 / FADM Date: 06/05/25 Loc: US Attending Dr: Mee Pringle D.O. Ordering Physician: Mee Pringle D.O. Date of Service: 06/05/25 Procedure(s): US OB BPP w non-stress Accession Number(s): [id number] cc: ROMEO GAR ; Mee Pringle D.O. The [place] [address] Patient Name: CARMELITA YANEZ MRN: [id number] date: 1990 Sex: F Assigned Patient Location: US Current Patient Location: Accession/Order Number: [id number] Exam Date: 06/05/2025 11:53 Report Date: 06/05/2025 12:03 At the request of: MEE PRINGLE DO Procedure: US OB BPP w non-stress Biophysical profile. Reason for exam: History of opioid abuse COMPARISON: None TECHNIQUE: Transabdominal imaging of the gravid uterus was obtained. FINDINGS: The blow torch operator reports a BPP of 8 out of 8. ELIZABETH is normal at21 cm. heart rate 135 bpm. US/US OB BPP w non-stress IMPRESSION: BPP 8 out of 8. Impression dictated by: Serafin Sorto Jr., D.O. 06/05/2025 12:03 PM Dictation Location: [place] [address] Electronically authenticated by: [id number] Y Date: 2:03 Dictated By: Serafin Sorto M.D. Signed By:06/05/25 1206 DD/ 1203 TD/TT: Cleat Blanker: us Mee Pringle DO [facility] Final Result documented in this encounter Visit Diagnoses Not on filedocumented in this encounter
--- OUTSIDE RECORDS SUMMARY | 2025-06-11 10:04 | XMS_ITS | Patient Health Record ---
Author Organization [facility] in [place] Address [address] [place] [address] Care Team Providers Care Government Services Professional Name Role Phone Farideh Gar Primary Care Provider Allergies Allergen (clinical drug ingredient) Drug/Non Drug Allergy documented on EMR Reaction Allergy Type Onset Date Status Penicillin childhood/unknow n Drug Allergy Active Results Component Value Reference Range Notes US OB cervical length Reviewed date:04/09/2025 01:25:12 PM Interpretation: Performing Lab: Notes/Report: Source Facility: [place] [address] Ultrasound Report Signed Patient: CARMELITA CASON MR#: [id number] : 1990 Acct:[id number] Age/Sex: 34 / F ADM Date: 04/09/25 Loc: US Attending Dr: Paradise Olvera Ordering Physician: Paradise Olvera Date of Service: 04/09/25 Procedure(s): US OB cervical length Accession Number(s): [id number] cc: Paradise Olvera; FARIDEH GAR [address] [address] Patient Name: CARMELITA CASON MRN: [id number] date: 1990 Sex: F Assigned Patient Location: US Current Patient Location: US Accession/Order Number: [id number] Exam Date: 04/09/2025 12:20 Report Date: 04/09/2025 [...] all 4 extremities were surveyed by the purchase analyst. No abnormalities were detected. The stomach, bladder, [...] Zelaya M.D. 04/09/2025 1:01 PM Dictation Location: [place] [address] Electronically authenticated by: [id number] Y Date: 04/09/2025 13:01 Dictated By: Raine Zelaya M.D. Signed By: 04/09/25 1304 DD/ 1301 TD/TT: Running Rigger: The [address] [address] Ultrasound Report Signed Patient: JUNAID CASON SA MR#: [id number] : 1990 Acct:[id number] Age/Sex: 34 / F ADM Date: 04/09/25 Loc: US Attending Dr: Paradise Olvera Ordering Physician: Paradise Olvera Date of Service: 04/09/25 Procedure(s): US OB cervical length Accession Number(s): [id number] cc: Paradise Olvera; FARIDEH GAR [address] [address] Patient Name: CARMELITA CASON MRN: [id number] date: 1990 Sex: F Assigned Patient Location: US Current Patient Location: US Accession/Order Numb er: [id number] Exam Date: 04/09/2025 12:20 Report Date: 04/09/2025 [...] all 4 extremities were surveyed by the purchase analyst. No abnormalities were detected. The stomach, bladder, [...] Zelaya M.D. 04/09/2025 1:01 PM Dictation Location: [place] [address] Electronically authenticated by: [id number] Y Date: 04/09/2025 13:01 Dictated By: Raine Zelaya M.D. Signed By: 04/09/25 1304 DD/ 1301 TD/TT: Running Rigger: US OB anatomy Reviewed date:04/09/2025 01:25:12 PM Interpretation: Performing Lab: Notes/Report: Source Facility: [place] [address] Ultrasound Report Signed Patient: CARMELITA CASON MR#: [id number] : 1990 Acct:[id number] Age/Sex: 34 / F ADM Date: 04/09/25 Loc: US Attending Dr: Paradise Olvera Ordering Physician: Paradise Olvera Date of Service: 04/09/25 Procedure(s): US OB anatomy Accession Number(s): [id number] cc: Paradise Olvera; FARIDEH GAR [place] [address] Patient Name: CARMELITA CASON MRN: [id number] date: 1990 Sex: F Assigned Patient Location: Current Patient Location: US Accession/Order Number: [id number] Exam Date: 04/09/2025 12:20 Report Date: 04/09/2025 [...] all 4 extremities were surveyed by the purchase analyst. No abnormalities were detected. The stomach, bladder, [...] Zelaya M.D. 04/09/2025 1:01 PM Dictation Location: [place] [address] Electronically authenticated by: [id number] Y Date: 04/09/2025 13:01 Dictated By: Raine Zelaya M.D. Signed By: 04/09/25 1304 DD/ 1301 TD/TT: Running Rigger: [address] [address] Ultrasound Report Signed Patient: JUNAID CASON SA MR#: [id number] : 1990 Acct:[id number] Age/Sex: 34 / F ADM Date: 04/09/25 Loc: US Attending Dr: Paradise Olvera Ordering Physician: Paradise Olvera Date of Service: 04/09/25 Procedure(s): US OB anatomy Accession Number(s): [id number] cc: Paradise Olvera; FARIDEH GAR [address] [address] Patient Name: CARMELITA CASON MRN: [id number] date: 1990 Sex: F Assigned Patient Location: US Current Patient Location: US Accession/Order Numb er: [id number] Exam Date: 04/09/2025 12:20 Report Date: 04/09/2025 [...] all 4 extremities were surveyed by the purchase analyst. No abnormalities were detected. The stomach, bladder, [...] Zelaya M.D. 04/09/2025 1:01 PM Dictation Location: [place] [address] Electronically authenticated by: [id number] Y Date: 04/09/2025 13:01 Dictated By: Raine Zelaya M.D. Signed By: 04/09/25 1304 DD/ 1301 TD/TT: Running Rigger: GLYCOHEMOGLOBIN A1C Reviewed date:05/21/2025 04:53:53 PM Interpretation: Performing Lab: Notes/Report: [facility] , Glycohemoglobin A1C 4.7 4.5-6.2 % ADA RECOMMENDED LIMIT 4.0 - 6.0 ADA THERAPEUTIC TARGET < 7.0 ACTION SUGGESTED > 7.0 Estimated Average Glucose 88 Performing Lab: see note - [facility] LB RUBELLA AB IGG Reviewed date:05/24/2025 03:14:14 PM Interpretation: Performing Lab: Notes/Report: [facility] , Rubella Antibodies, IgG <0.90 Immune > 0.99 index Non-immune <0.90 Equivocal 0.90 - 0.99 Immune >0.99 Performed at: [address] [id number] Perch Machine Inspector: Aric Pryor PhD, Phone: [phone] Performing Lab: see note [facility] LB Type and Screen Reviewed date:05/21/2025 04:53:53 PM Interpretation: Performing Lab: Notes/Report: [facility] , Blood Type B Positive Antibody Screen NEGATIVE HCV Antibody RFX to Quant PC R Reviewed date:05/24/2025 03:14:14 PM Interpretation: Performing Lab: Notes/Report: [facility] , HCV Ab Reactive Non Reactive Hepatitis C Quantitation 50666 . IU/mL HCV log10 4.819 . Result Units: l og10 IU/mL Test Information: Comment . The quantitative range of this assay is 15 IU/mL to 100 million IU/mL. Interpretation: Comment . Positive HCV antibody screen with the presence of HCV RNA is consistent with active infection. Performed at: [address] [id number] Perch Machine Inspector: Aric Pryor PhD, Phone: [phone] Performed at: [address] [id number] Perch Machine Inspector: Miles Owens MD, Phone: [phone] Performing Lab: see note [facility] LB Anticardiolip Ab, IgA/G/M, Q n (Not yet reviewed by provider) Interpretation: Performing Lab: Notes/Report: [facility] , Anticardiolipin Ab,IgG,Qn <9 0-14 GPL U/mL Negative: <15 Indeterminate: 15 - 20 Low-Med Positive: >20 - 80 High Positive: >80 Anticardiolipin Ab,IgM,Qn <9 0-12 MPL U/mL Negative: <13 Indeterminate: 13 - 20 Low-Med Positive: >20 - 80 High Positive: >80 Anticardiolipin Ab,IgA,Qn <9 0-11 APL U/mL Negative: <12 Indeterminate: 12 - 20 Low-Med Positive: >20 - 80 High Positive: >80 Performed at: [address] [id number] Perch Machine Inspector: Aric Pryor PhD, Phone: [phone] Performing Lab: see note [facility] LB PROF 14(COMP METB) Reviewed date:06/08/2025 01:28:14 PM Interpretation: Performing Lab: Notes/Report: [facility] , Sodium 140 136-145 mmol/L Potassium 3.4 3.5-5.1 mmol/L Chloride 105 98-107 mmol/L Carbon Dioxide 25.9 21.0-32.0 mmol/L Anion Gap 12.5 Glucose 59 74-106 mg/dL Blood Urea Nitrogen 4.0 7.0-18.0 mg/dL Creatinine 0.36 0.55-1.02 mg/dL Estimated GFR ( Tashia >60 >=60 mL/min/1.73m 2 Estimated GFR (Non- Shital >60 >=60 mL/min/1.73m 2 BUN Creatinine Ratio 11.1 Calcium 8.8 8.5-10.1 mg/dL Bilirubin Total 0.3 0.2-1.0 mg/dL Aspartate Amino Transferase 29 15-37 U/L Alanine Aminotransferase 36 14-59 U/L Alkaline Phosphatase 117 46-116 U/L Total Protein 6.9 6.4-8.2 g/dL Albumin Level 2.7 3.4-5.0 g/dL Globulin 4.2 Albumin Globulin Ratio 0.6 Performing Lab: see note ML - [facility] LB PTT Reviewed date:06/08/2025 01:28:14 PM Interpretation: Performing Lab: Notes/Report: [facility] , Partial Thromboplastin Time 23.4 22.3-36.2 sec Performing Lab: see note ML - [facility] LB Prothrombin Time INR Reviewed date:06/08/2025 01:28:14 PM Interpretation: Performing Lab: Notes/Report: [facility] , Prothrombin Time 10.3 9.0-11.6 sec INR 0.97 DESIRED INR: 2.0-3.0 CONDITIONS NOT LISTED BELOW 2.5-3.5 FOR PROSTHETIC HEART VALVE REPLACEMENT 2.5-3.5 RECURRENT THROMBOSIS Performing Lab: see note - [facility] GLYCOHEMOGLOBIN A1C Reviewed date:06/08/2025 01:28:14 PM Interpretation: Performing Lab: Notes/Report: [facility] , Glycohemoglobin A1C 4.6 4.5-6.2 % ADA RECOMMENDED LIMIT 4.0 - 6.0 ADA THERAPEUTIC TARGET < 7.0 ACTION SUGGESTED > 7.0 Estimated Average Glucose 85 Performing Lab: see note - [facility] US OB BPP w non-stress Reviewed date:06/05/2025 03:34:23 PM Interpretation: Performing Lab: Notes/Report: Source Facility: [place] [address] [place] [address] Ultrasound Report Signed Patient: CARMELITA CASON MR#: [id number] : 1990 Acct:[id number] Age/Sex: 34 / F ADM Date: 06/05/25 Loc: US Attending Dr: Mee Pringle D.O. Ordering Physician: Mee Pringle D.O. Date of Service: 06/05/25 Procedure(s): US OB BPP w non-stress Accession Number(s): [id number] cc: FARIDEH GAR ; Mee Pringle D.O. The [place] [address] Patient Name: CARMELITA CASON MRN: [id number] date: 1990 Sex: F Assigned Patient Location: US Current Patient Location: Accession/Order Number: [id number] Exam Date: 06/05/2025 11:53 Report Date: 06/05/2025 12:03 At the request of: MEE PRINGLE DO Procedure: US OB BPP w non-stress Biophysical profile. Reason for exam: History of opioid abuse COMPARISON: None TECHNIQUE: Transabdominal imaging of the gravid uterus was obtained. FINDINGS: The purchase analyst reports a BPP of 8 out of 8. ELIZABETH is normal at 21 cm. heart rate 135 bpm. US/US OB BPP w non-stress IMPRESSION: BPP 8 out of 8. Impression dictated by: Serafin Sorto Jr., D.O. 06/05/2025 12:03 PM Dictation Location: [place] [address] Electronically authenticated by: [id number] Y Date: 06/05/2025 12:03 Dictated By: Serafin Sorto M.D. Signed By: 06/05/25 1206 DD/ 1203 TD/TT: Running Rigger: [place] [address] Ultrasound Report Signed Patient: JUNAID CASON SA MR#: [id number] : 1990 Acct:[id number] Age/Sex: 34 / F ADM Date: 06/05/25 Loc: US Attending Dr: Mee Pringle D.O. Ordering Physician: Mee Pringle D.O. Date of Service: 06/05/25 Procedure(s): US OB BPP w non-stress Accession Number(s): [id number] cc: FARIDEH GAR ; Mee Pringle D.O. [place] [id number] Patient Name: CARMELITA CASON MRN: [id number] date: 1990 Sex: F Assigned Patient Location: Current Patient Location: Accession/Order Numb er: [id number] Exam Date: 06/05/2025 11:53 Report Date: 06/05/2025 12:03 At the request of: MEE PRINGLE DO Procedure: US OB fet al BPP w non-stress Biophysical profile. Reason for exam: History of opioid abuse COMPARISON: None TECHNIQUE: Transabdominal imaging of the gravid uterus was obtained. FINDINGS: The purchase analyst reports a BPP of 8 out of 8. ELIZABETH is normal at 21 cm. heart rate 135 bpm. US/US OB BPP w non-stress IMPRESSION: BPP 8 ou t of 8. Impression dictated by: Serafin Sorto Jr., D.O. 06/05/2025 12:03 PM Dictation Location: [place] [address] Electronically authenticated by: [id number] Y Date: 06/05/2025 12:03 Dictated By: Serafin Sorto M.D. Signed By: 06/05/25 1206 DD/ 1203 TD/TT: Running Rigger: Buprenorphine Confirm, Urine Reviewed date:05/24/2025 12:34:03 PM Interpretation: Performing Lab: Notes/Report: [facility] , Buprenorphine Positive . Confirmation performed by Mass Spectrometry Buprenorphine Positive . Buprenorphine Conf, MS, UR 525 Cutoff=10 ng/mL Norbuprenorphine Positive . Norbuprenorphine Conf, MS,UR 905 Cutoff=10 ng/mL Performed at: [facility] [address] [place], [place] [id number] Perch Machine Inspector: Soledad Mendieta PhD, Phone: [phone] Performing Lab: see note [employer] [facility] LB Urine Culture, Routine Reviewed date:05/23/2025 08:29:33 AM [...] Culture, Routine Urine Culture, Routine Performed at: [facility] Urine Culture, Routine Urine Culture, Routine [address] [place] [id number] Urine Culture, Routine Urine Culture, Routine Perch Machine Inspector: Isrrael Pryor PhD, Phone: [phone] Urine Culture, Routine Performing Lab: see note - [facility] LB SEE REPORT - [employer] Id information not found for OBX-specific shift superintendent legend HBsAg Screen Reviewed date:05/22/2025 02:13:41 PM Interpretation: Performing Lab: Notes/Report: [facility] , HBsAg Screen Negative Negative Performed at: [address] [id number] Perch Machine Inspector: Aric Pryor PhD, Phone: [phone] Performing Lab: see note - [facility] LB Rapid Plasma Reagin, Quant Reviewed date:05/22/2025 02:13:20 PM Interpretation: Performing Lab: Notes/Report: [facility] , Rapid Plasma Reagin, Quant Non Reactive NonRea<1:1 titer Please Note: This test does not meet current guidelines for screening and diagnosis of syphilis. This test is intended for following treatment response in patients being treated for syphilis infection. To screen for syphilis infection, a reflex cascade that includes both RPR and a treponema-specific assay should be utilized, such as Treponema pallidum (Syphilis) Screening [place] (672459) or Rapid Plasma Reagin (RPR) Test With Reflex to Quantitative RPR and Confirmatory Treponema pallidum Antibodies (618783). Performed at: [address] [id number] Perch Machine Inspector: Aric Pryor PhD, Phone: [phone] Performing Lab: see note [facility] LB HIV Ab/p24 Ag with Reflex Reviewed date:05/22/2025 08:19:07 AM Interpretation: Performing Lab: Notes/Report: [facility] , HIV Ab/p24 Ag Screen Non Reactive Non Reactive HIV-1/HIV-2 antibodies and HIV-1 p24 antigen were NOT detected. There is no laboratory evidence of HIV infection. HIV Negative Performed at: [address] [id number] Perch Machine Inspector: Aric Pryor PhD, Phone: [phone] Performing Lab: see note [facility] DRUG SCREEN RAPID (URINE) Reviewed date:05/21/2025 04:53:53 PM Interpretation: Performing Lab: Notes/Report: [facility] , Cannabinoid Screen Urine NEGATIVE NEGATIVE Phencyclidine Screen Urine NEGATIVE NEGATIVE Cocaine Screen Urine NEGATIVE NEGATIVE Methamphetamines Screen Urine NEGATIVE NEGATIVE Opiate Screen Urine NEGATIVE NEGATIVE Amphetamine Screen Urine NEGATIVE NEGATIVE Benzodiazepines Screen Urine NEGATIVE NEGATIVE Tricyclic Antidepressant Urine NEGATIVE NEGATIVE Methadone Screen Urine NEGATIVE NEGATIVE Barbiturates Screen Urine NEGATIVE NEGATIVE Oxycodone Screen Urine NEGATIVE NEGATIVE Buprenorphine Screen Urine POSITIVE NEGATIVE DRUG CLASS TEST SYSTEM CUT-OFF CONCENTRATIONS ARE FOLLOWS: AMP (Amphetamine): 500 ng/mL BAR (Barbiturates): 200 ng/mL BZO (Benzodiazepines): 150 ng/mL BUP (Buprenorphine): 10 ng/mL BRITTANY (Cocaine): 150 ng/mL mAMP (Methamphetamine): 500 ng/mL MTD (Methadone): 200 ng/mL OPI (Opiates): 100 ng/mL OXY (Oxycodone): 100 ng/mL PCP (Phencyclidine): 25 ng/mL THC (Cannabinoids): 50 ng/mL TCA (Trycyclic Antidepressants): 300 ng/mL Performing Lab: see note ML - [facility] LB CBC AUTO DIFF Reviewed date:05/21/2025 04:53:53 PM Interpretation: Performing Lab: Notes/Report: [facility] , White Blood Count 11.8 4.0-11.0 [...] Performing Lab: see note ML - [facility] LB US OB <= 14 weeks fetus Reviewed date:01/22/2025 04:10:34 PM Interpretation: Performing Lab: Notes/Report: Source Facility: [place] [address] [place] [address] Ultrasound Report Signed Patient: CARMELITA CASON MR#: [id number] : 1990 Acct:[id number] Age/Sex: 34 / F ADM Date: 01/22/25 Loc: US Attending Dr: Mee Pringle D.O. Ordering Physician: Mee Pringle D.O. Date of Service: 01/22/25 Procedure(s): US OB <= 14 weeks fetus Accession Number(s): [id number] cc: FARIDEH GAR ; Mee Pringle D.O. The [place] [address] Patient Name: CARMELITA CASON MRN: [id number] date: 1990 Sex: F Assigned Patient Location: Current Patient Location: US Accession/Order Number: [id number] Exam Date: 01/22/2025 14:49 Report Date: 01/22/2025 14:50 At the request of: MEE PRINGEL DO Procedure: US OB <= 14 weeks [...] Sorto Jr., D.O.01/22/2025 2:50 PM Dictation Location: [place] [address] Electronically authenticated by: [id number] Y Date: 01/22/2025 14:50 Dictated By: Serafin Sorto M.D. Signed By: 01/22/25 1453 DD/ 145 TD/TT: Running Rigger: The [address] [address] Ultrasound Report Signed Patient: JUNAID CASON SA MR#: [id number] : 1990 Acct:[id number] Age/Sex: 34 / F ADM Date: 01/22/25 Loc: US Attending Dr: Mee Pringle D.O. Ordering Physician: Mee Pringle D.O. Date of Service: 01/22/25 Procedure(s): US OB <= 14 weeks fetus Accession Number(s): [id number] cc: FARIDEH GAR ; Mee Pringle D.O. The [address] [address] Patient Name: CARMELITA CASON MRN: [id number] date: 1990 Sex: F Assigned Patient Location: US Current Patient Location: US Accession/Order Numb er: [id number] Exam Date: 01/22/2025 14:49 Report Date: 01/22/2025 [...] Sorto Jr., D.O.01/22/2025 2:50 PM Dictation Location: [place] [address] Electronically authenticated by: [id number] Y Date: 01/22/2025 14:50 Dictated By: Serafin Sorto M.D. Signed By: 01/22/25 1453 DD/ 1450 TD/TT: Running Rigger: PREG QUANT HCG Reviewed date:11/29/2024 11:58:32 AM Interpretation: Performing Lab: Notes/Report: [facility] , HCG Quantitative 3026 5-50 0.2-1 WEEK 50-500 1-2 WEEKS 100-5,000 2-3 WEEKS 500-10,000 3-4 WEEKS 1,000-50,000 4-5 WEEKS 10,000-100,000 5-6 WEEKS 15,000-200,000 6-8 WEEKS 10,000-100,000 2-3 MONTHS Performing Lab: see note ML - [facility] CT sinus wo con Reviewed date:09/20/2024 11:50:08 AM Interpretation: Performing Lab: Notes/Report: Source Facility: [place] [address] CT Scan Report Signed Patient: CARMELITA CASON MR#: [id number] : 1990 Acct:[id number] Age/Sex: 34 / F ADM Date: 09/20/24 Loc: ER Attending Dr: Ordering Physician: Kimmie Santacruz D.O. Date of Service: 09/20/24 Procedure(s): CT sinus wo con Accession Number(s): [id number] cc: FARIDEH GAR [place] [address] Patient Name: CARMELITA CASON MRN: [id number] date: 1990 Sex: F Assigned Patient Location: ER Current Patient Location: Accession/Order Number: [id number] Exam Date: 09/20/2024 07:30 Report Date: 09/20/2024 [...] M.D. Signed By: 09/20/24830 DD/ 7 TD/TT: Running Rigger: [place] [address] CT Scan Report Signed Patient: JUNAID CASON SA MR#: [id number] : 1990 Acct:[id number] Age/Sex: 34 / F ADM Date: 09/20/24 Loc: ER Attending Dr: Ordering Physician: Kimmie Santacruz D.O. Date of Service: 09/20/24 Procedure(s): CT sin us wo con Accession Number(s): [id number] cc: FARIDEH GAR [place] [address] Patient Name: CARMELITA CASON MRN: [id number] date: 1990 Sex: F Assigned Patient Location: ER Current Patient Location: Accession/Order Numb er: [id number] Exam Date: 07:30 Report Date: 09/20/2024 08:28 [...] M.D. Signed By: 09/20/24830 DD/ 7 TD/TT: Running Rigger: SARS-CoV-2 Ag* Reviewed date:09/20/2024 11:53:12 AM Interpretation: Performing Lab: Notes/Report: [facility] , SARS-CoV-2 Ag NEGATIVE NEGATIVE This test has not been FDA cleared or approved, but has been authorized by the FDA under an Emergency Use Authorization (EUA) for use by authorized laboratories certified under CLIA that meet the requirements to perform moderate or high complexity testing. This test has been authorized only for the detection of proteins from SARS-CoV-2, not for any other viruses or pathogens. The emergency use of this test is authorized for the duration of the declaration that circumstances exist justifying the authorization of emergency use of in vitro diagnostic tests for detection and/or diagnosis of Covid-19 under section 564(b)(1) of the Act, 21 U.S.C. 360bbb-3(b)(1), unless the declaration is terminated or authorization is revoked sooner. Performing Lab: see note ML - [facility] LB INFLUENZA A AND B AG Reviewed date:09/20/2024 11:53:12 AM Interpretation: Performing Lab: Notes/Report: [facility] , Influenza Virus A Antigen Negative Negative for Flu A protein antigen. Infection due to Flu A cannot be ruled out. Flu A antigen in the sample may be below the detection limit of the test. Influenza Virus B Antigen Negative Negative for Flu B protein antigen. Infection due to Flu B cannot be ruled out. Flu B antigen in the sample may be below the detection limit of the test. Performing Lab: see note ML - [facility] LB SARS-CoV-2 Ag* Reviewed date:07/10/2024 01:40:12 PM Interpretation: Performing Lab: Notes/Report: [facility] , SARS-CoV-2 Ag POSITIVE NEGATIVE This test has not been FDA cleared or approved, but has been authorized by the FDA under an Emergency Use Authorization (EUA) for use by authorized laboratories certified under CLIA that meet the requirements to perform moderate or high complexity testing. This test has been authorized only for the detection of proteins from SARS-CoV-2, not for any other viruses or pathogens. The emergency use of this test is authorized for the duration of the declaration that circumstances exist justifying the authorization of emergency use of in vitro diagnostic tests for detection and/or diagnosis of Covid-19 under section 564(b)(1) of the Act, 21 U.S.C. 360bbb-3(b)(1), unless the declaration is terminated or authorization is revoked sooner. Performing Lab: see note ML - [facility] LB COVID-19, Flu A+B IH (Not ye t reviewed by provider) Interpretation: Performing Lab: Notes/Report: COVID neg FLU A neg FLU B neg Control present Reason For Referral Reason muscle spasm back, h x bulging disc L4-5 Diagnosis 1 Muscle spasm of back (M62.830) Referral Organization [facility] Medicine Referring Provider First Name Farideh Referring Provider Last Name Sarah Referring Provider Speciality Family Med icine Referred Provider [facility], Physical Therap y Referred Provider Specialty Physical [...] Status W/U Status Risk Notes Problem Anxiety (22622511) Anxiety (F41.9) Active confirmed Problem Bipolar disorder (14187378) Bipolar disorder (F31.9) Active confirmed Problem Smoking (50090783) Smoking (F17.200) Active confirmed Problem Major depressive disorder, single episode (46257697) Major depressive disorder, single episode (F32.9) Active confirmed Problem Loss of taste (47871446) Loss of taste (R43.2) Active confirmed Problem Attention deficit hyperactivity disorder (482873271) ADHD (F90.9) Active confirmed Vital Signs Temperature 98.4 degrees Fahrenheit 01/08/2025 Blood pressure diastolic 64 mm Hg 03/02/2025 Height 65 in 03/02/2025 Blood pressure systolic 102 mm Hg 03/02/2025 Weight 148.2 lbs 03/02/2025 BMI 24.66 kg/m2 03/02/2025 Procedures Procedure Date Ordered Date Performed Result Body Sit e CARDIO Stress Test - Treadmill Exercise 10/20/2024 N/A Encounters Encounter Location Date Provider Diagnosis [facility] [address] [place] [address] 07/10/2024 Farideh Gar [facility] [address] [place] [address] 09/19/2024 Farideh Gar Back pain M54.9 [facility] [address] [place] [address] 02/15/2025 Farideh Gar [facility] [address] [place] [address] 02/21/2025 Farideh Gar Anxiety F41.9 [facility] [address] [place] [address] 04/04/2025 Farideh Gar Anxiety F41.9 [facility] [address] [place] [facility] [address] 05/30/2025 Farideh Gar [facility] [address] [facility] [place] [address] 06/19/2024 Farideh Gar Anxiety F41.9 [facility] [address] [place] [address] 07/10/2024 Farideh Gar Acute cough R05.1 [place] [address] [place] [address] 10/20/2024 Farideh Gar Chest pressure R07.8 9 ; Anxiety F41.9 and Smoking F17.200 [facility] [address] [facility] [place] [address] 11/17/2024 Farideh Gar Muscle spasm of back M62.830 [place] [address] [address] [facility] [place] [id number] 01/08/2025 Farideh Gar Loss of taste R43.2 ; URI (upper respiratory infection) J06.9 and Body aches R52 [place] [address] [facility] [place] [address] 03/02/2025 Farideh Gar [facility] physical exam Z02.0 Assessments Encounter Date Diagnosis (ICD Code) Assessment Notes Treatment Notes Treatment Clinical Notes Section Notes 03/02/2025 [facility] physical exam (ICD-10 - Z02.0) ok for [...] CON 05/10/2023 XR lumbar spine 2-3V 11/17/2024 Anticardiolip Ab, IgA/G/M, Qn 06/08/2025 Insurance Providers Payer Name Payer Address Payer Phone Subscriber Number Group Number Insured Name Patient Relationship to Insured Coverage Start Date Coverage End Date [employer] [place] [employer] [address] [place] [id number] [phone] [id number] Carmelita Cason Self - patient is the insured Medical (General) History Surgical History Surgery Date(Month/Year) D&C
[2025-06-11 10:18] VITALS: BP 110/71; PULSE 88
== END 2025-06-11 10:55 | disposition home or self-care (01) ==
LOC: US 10:01 → FBC 10:03
PROVIDERS: PCP Nurse Practitioner Family; Visit Provider Obstetrics & Gynecology
DX: O99.323 Drug use complicating pregnancy, third trimester (principal); Z87.59 Personal history of other complications of pregnancy, childbirth and the puerperium; Z3A.33 33 weeks gestation of pregnancy; F11.11 Opioid abuse, in remission
CPT/HCPCS: 76818

== ENCOUNTER 2025-06-14 08:00 | Outpatient (OUT) | payer OTHER, SELFPAY ==
--- OUTSIDE RECORDS SUMMARY | 2019-12-25 20:00 | XMS_ITS | Continuity of Care Document ---
Author Organization [facility] Address [address] [place] [address] Phone Care Team Providers Care Technical Aide Name Role Phone Pavlock DO, Max Unavailable [...] drug services- Acute Deto x Acute Detox Lens Grinder Rough Acute Detox Lens Grinder Rough DRUG TEST PRSMV DIR OPT OBS URINE TEST Acute Detox Lens Grinder Rough Advance Directives Directive Yes / No Effective Date File Name No Information Encounters Encounter Description Practice Location Reason(s) For Visit Diagnoses Date Provider Providers Copied on Encounter [facility], [address] [place] [address], [id number] , tel: [phone] [facility] Detox Opioid dependence with withdrawalAlcohol dependence with withdrawal, uncomplicated 0 Pavlock DO Max. [address] [place] [address], [id number] , [place]. tel: [phone] [facility], [address] [place] [address], [id number] , tel: [phone] [facility] Detox Opioid dependence with withdrawal 0 Pavlock DO Max. [address] [place] [address], [id number] , [place]. tel: [phone] [facility], [address] [place], [place], [id number] , [place] tel: [phone] [facility] Detox Opioid dependence with withdrawal Feb-2 0 Pavlock DO Max. [address] [place], [place], [id number] , [place]. tel: [phone] [facility], [address] [place], [place], [id number] , [place] tel: [phone] [facility] Detox alcohol and heroin dependence (chief complaint) Opioid dependence with withdrawalAlcohol dependence with withdrawal, uncomplicated Feb-2 0 [place] Ayala. [address] [place], [place], [id number] , [place]. tel: [phone] [facility], [address] [place] [address], [id number] , [place] tel: [phone] [facility] Detox Opioid dependence with withdrawal Feb-2 0 Pavlock DO Max. [address] [place], [place], [id number] , [place]. tel: [phone] [facility], [address] [place] [address], [id number] , [place] tel: [phone] [facility] Detox Opioid dependence with withdrawalEncounter for test, result negative b-2 0 Pavlock DO Max. [address] [place], [place], [id number] , [place]. tel: [phone] Family History Family Member Type Diagnosis Age At Onset No Information Payers Payer name Insurance type Covered libertarian ID Homar sellers(s) [facility] [id number] Social History Type Description Quantity Date Captured [...]
--- OUTSIDE RECORDS SUMMARY | 2025-03-02 05:30 | XMS_ITS ---
Author Organization The [facility] in [place] Address [address] [place] [address] Care Team Providers Care Blind Hooker Name Role Phone Farideh Smith Primary Care [...] 03/02/2025 Encounters Encounter Location Date Provider Diagnosis [facility] [address] [place] [address] 03/02/2025 Farideh Smith [facility] physical exam Z02.0 Assessments Encounter Date [...] Carmelita YANEZ NDOB:[birth year] (34 yo F)Acc No.[id number]:03/02/2025 Progress Note Patient: Carmelita HO Provider: Nazario Smith ([facility]), DIRECTOR OF CONSULTING SERVICES :1990 A ge:34 Y S ex:Female Date:03/02/2025 Address:[address] [place], [place] [id number] Check In:09:23 AM ESTCheck O ut:09:46 AM [...] * Electronically signed by Carla Smith , STAFF ELECTRONIC WARFARE OFFICER, JEWEL GRINDER.DIRECTOR OF CONSULTING SERVICES.[id number] on 03/05/2025 at 11:45 AM EDT Sign off status: Completed Visit Status: C HK (Check Out) true * Provider: Nazario Smith ([facility]), DIRECTOR OF CONSULTING SERVICES Date: 03/02/2025 Generated for Hillary medina/Juliana/eTransmitting on: 06/14/2025 08:02 AM EDT History and Physical Notes * [...]
--- OUTSIDE RECORDS SUMMARY | 2025-04-04 07:31 | XMS_ITS ---
Author Organization The [facility] in [place] Address [address] [place] [address] Care Team Providers Care Powder Line Repairer Name Role Phone Farideh Smith Primary Care Provider REASON FOR VISIT Gabapentin refill Medications Medication SIG (Take, Route, Frequency, Duration) Notes Start Date End Date Status Gabapentin 100 MG as directed for 9 days take 3 capsules TID for 3 days than 2 capsules TID for 2 days than 1 capsule TID for 2 days than 1 capsule daily for 2 days than stop med Active Encounters Encounter Location Date Provider Diagnosis [facility] [address] [place] [address] 04/04/2025 Farideh Smith Anxiety F41.9 Assessments Encounter Date Diagnosis (ICD Code) Assessment Notes Treatment Notes Treatment Clinical Notes Section Notes 04/04/2025 Anxiety (ICD-10 - F41.9) Plan Of Treatment Medication Medication Name Sig Start Date Stop Date Notes Gabapentin 100 MG as directed for 9 days take 3 capsules TID for 3 days than 2 capsules TID for 2 days than 1 capsule TID for 2 days than 1 capsule daily for 2 days than stop med Progress Notes * Carmelita YANEZ NDOB:[birth year] (34 yo F)Acc No.[id number]:04/04/2025 Patient: Carmelita HO Jennifer :1990 A ge:34 Y S ex:Female Address:[address] [place] [address] * Refills Refill Gabapentin Capsule, 100 MG, 47, as directed, 9 days, Refills=0 Subjective: * Chief Complaints: * G abapentin refill * Medical History: * Surgical History: * Hospitalization/Major Diagno stic Procedure: * Medications: Objective: * Vitals: * Physical Examination: Assessment: * Assessment: 1. A nxiety - F41.9 Plan: * Treatment: * Procedure Codes: * true * Date: Generated for Hillary medina/Juliana/Ceciliaitting on: 0 06/14/2025 08:02 AM EDT
--- OUTSIDE RECORDS SUMMARY | 2025-05-30 09:15 | XMS_ITS | Encounter Summary ---
Author Organization [facility] Address [id number] [address] [place] [address] Care Team Providers Care Director Database Name Role Phone No Pcp, No Pcp Primary Care Provider Unavailabl e Reason for Referral * Diagnostic Imaging (Routine) - Pending Review Specialty Diagnoses / Procedures Referred By Contac t Referred To Contact Maternal and Medicine Diagnoses Screening, , for anatomic survey Procedures US MFM with or without consult Mee Pringle DO [address] [place] [address] Phone: tel: fax: Maternal- Medicine at [facility] [address] [place] [address] Phone: tel: fax: Referral ID Status Reason Start Date Expiration Date V isits Requested Visits Authorized [id number] Pending Review 05/30/2025 05/30/2026 1 1 Reason for Visit * Diagnostic Imaging (Routine) - Pending Review Specialty Diagnoses / Procedures Referred By Contac t Referred To Contact Maternal and Medicine Diagnoses Screening, , for anatomic survey Procedures US MFM with or without consult Mee Pringle DO [address] [place] [address] Phone: tel: fax: Maternal- Medicine at [facility] [address] [place] [address] Phone: tel: fax: Referral ID Status Reason Start Date Expiration Date V isits Requested Visits Authorized [id number] Pending Review 05/30/2025 05/30/2026 1 1 Encounter Details Date Type Department Care Team (Latest Contact Info) Description 05/30/2025 9:15 AM EDT - 05/30/2025 11:59 PM EDT Hospital Encounter [facility] - [facility] US Imaging [address] [place] [phone] Screening, , for anatomic survey Discharge Disposition: [...] 1 Film on tongue in the morning. gabapentin (NEURONTIN) 100 mg capsule Take 1 capsule (100 mg total) by mouth before bedtime. no115/iron/folic acid ( 19 ORAL) Take 1 tablet by mouth before bedtime. QUEtiapine (SEROquel) 200 mg tablet Take 50 mg by mouth nightly. FLUoxetine (PROzac) 40 mg capsule Take 60 mg by mouth daily. hydrOXYzine (VISTARIL) 100 mg capsule Take 100 mg by mouth daily. magnesium oxide (MAGOX) 400 mg tablet Take 1 tablet (400 mg total) by mouth in the morning. naltrexone microspheres (VIVITROL IM) Inject into the appropriate muscle. documented as of this encounter Plan of Treatment Upcoming Encounters Date Type Department Care Team (Late st Contact Info) Description 07/05/2025 1:00 PM EDT Appointment [facility] - [facility] US Imaging [address] [place] [phone] 07/05/2025 2:30 PM EDT Office Visit Maternal- Medicine at [facility] [address] [place] [phone] Tasia Dowd MD [address] [facility] 1st [address] [place], [place] [phone] documented as of this encounter Procedures Procedure Name Priority Date/Time Associated Diagnosis Comments [facility] COMPREHENSIVE ANATOMIC SURVEY Routine 05/30/2025 10:52 AM EDT Screening, , for anatomic survey documented in this encounter Results * US [facility] COMPREHENSIVE ANATOMIC SURVEY (05/30/2025 10:52 AM EDT) Anatomical Region Laterality Modality OB-RIVETING MACHINE OPERATOR AUTOMATIC Ultrasound 05/30/2025 9:40 AM EDT Narrative 05/30/2025 12:58 PM EDT NAME: YOAV MUNOZ : 1990 SEX: F Accession Number: [id number] ORDERING PHYSICIAN: MEE PRINGLE REFERRING PHYSICIAN: MEE PRINGLE Coding ----- --------- Procedures [id number]: Ultrasound, uterus, real time with image documentation, and maternal evaluation plus detailed anatomic examination, transabdominal approach;single or first gestation Indication ----- --------- Screening for Anatomic Survey, Hepatitis C in , Malformation of placenta- complete circumvallate,History of prior with delivery- placental abruption, Previous History ----- --------- OB History 4. Para 3 [id number] Maternal Assessment ----- --------- Physical Exam Initial [...] EFW (oz) 14 oz EFW by: Hadlock ([id number]) Extended Tibia 48.3 mm 29w 1d 6% Mara Director Safety 2.3 mm CM 9.6 mm 95% Nicolaides [...] view. RVOT view. LVOT view. 3-vessel view. 2-qqqguy-pczumlp view. Situs. Bicaval view. Interventricular septum. Great [...] placenta noted. Recommendations ----- --------- Please see [facility] documentation from today. The patient [...] MUNOZ : 1990 SEX: F Accession Number: [id number] ORDERING PHYSICIAN: MEE PRINGLE REFERRING PHYSICIAN: MEE PRINGLE Coding ----- --------- Procedures 13490: Ultrasound, uterus, real time with imagedocumentation, and maternal evaluation plus detailed anatomic examination, transabdominalapproach;single or first gestation Indication ----- --------- Screening for Anatomic Survey, Hepatitis C in , Malformation ofplacenta- complete circumvallate,History of prior with delivery- placental abruption, Previous History ----- --------- OB History 4. Para 3 [id number] Maternal Assessment ----- --------- Physical Exam Initial [...] EFW (oz) 14 oz EFW by: Hadlock ([id number]) Extended Tibia 48.3 mm 29w 1d 6% Mara Director Safety 2.3 mm CM 9.6 mm 95% Nicolaides [...] 4-chamber view. RVOT view. LVOT view. 3-vessel view.7-bunqdy-xljagqd view. Situs. Bicaval view. Interventricular septum. Great [...] placenta noted. Recommendations ----- --------- Please see [facility] documentation from today. The patient is scheduled in four week(s) to complete anatomic survey. Subsequent follow up or other follow up as clinically determined byprimary OB provider unless otherwise specified by [facility]. Results forwarded to ordering provider so they can follow up with thepatient as necessary. us Mee Pringle DO [facility] ORDERABLES Final Result documented in this encounter Visit Diagnoses Diagnosis Screening, , for anatomic survey Encounter for anatomic survey documented in this encounter Care Teams Director Database Relationship Specialty Start Date End Date No Pcp, [place] [address] PCP - General Family Medicine 04/27/20 documented as of this encounter
--- OUTSIDE RECORDS SUMMARY | 2025-05-30 09:28 | XMS_ITS ---
Author Organization [facility] in [place] Address [address] [place] [address] Care Team Providers Care Facility Administrator Name Role Phone Farideh Smith Primary Care [...] Unknown Encounters Encounter Location Date Provider Diagnosis [facility] [address] [place] [address] 05/30/2025 Farideh Smith Plan Of Treatment No Information Progress Notes * Carmelita YANEZ NDOB:[birth year] (34 yo F)Acc No.[id number]:05/30/2025 Patient: Carmelita HO :1990 A ge:34 Y S ex:Female Address:[address] [place] [phone] Subjective: * Chief Complaints: * G abapentin [...] Date: Generated for Hillary medina/Juliana/Columba on: 0 06/14/2025 08:01 AM EDT
--- OUTSIDE RECORDS SUMMARY | 2025-06-07 09:40 | XMS_ITS | Encounter Summary ---
Author Organization [facility] Address [address] [place] [address] Care Team Providers Care Floor Scraper Name Role Phone Unavailable Primary Care Provider Unavailabl e Reason for Visit * Reason Comments Routine Visit Encounter Details Date Type Department Care Team (Late st Contact Info) Description 06/07/2025 9:40 AM EDT Routine [facility] [address] [address] Tony Pringle DO [address] [place], [facility] Third trimester ([facility]); 32 weeks gestation of ([facility]); H/O opioid abuse ([facility] History of placental abruption; Diabetes mellitus screening Social History Tobacco Use Types Packs/Day Years [...] Sign Reading Time Taken Comments Blood Pressure 118/74 06/07/2025 10:17 AM EDT Pulse - - Temperature - - Respiratory Rate - - Oxygen Saturation - - Inhaled Oxygen Concentration - - Weight 74.8 kg (165 lb) 06/07/2025 10:17 AM EDT Height - - Body Mass Index 27.46 12/09/2022 12:00 PM EST documented in this encounter Progress Notes * Karmen Lynn LPN - 06/07/2025 9:40 AM EDT Reason for Appointment: Patient ID: [...] Reactions Penicillin G Other Reaction(s): childhood/unknown, Unknown Penicillins PROBLEMS Active Ambulatory Problems Diagnosis Date Noted No Active Ambulatory Problems Resolved Ambulatory Problems Diagnosis Date Noted No Resolved Ambulatory Problems Past Medical History: Diagnosis Date Abscess of labia Bipolar disorder (HCC) BMI 28.0-28.9,adult Drug abuse, opioid type ([facility]) Encounter for follow-up Encounter for gynecological examination (general) (routine) without abnormal findings Labial cyst Pain pelvic HISTORY PAST MEDICAL HISTORY SOCIAL HISTORY Past Medical History: Diagnosis Date Abscess of labia Bipolar disorder (HCC) BMI 28.0-28.9,adult Drug abuse, opioid type ([facility]) Encounter for follow-up Encounter for gynecological examination [...] nursing note reviewed. Exam conducted with a community life director present. Vitals: Estimated body mass index is 27.46 kg/m?? as calculated from the following: Height as of 12/09/22: 5' 5 . Weight as of this encounter: 165 lb. BP: 118/74 No LMP recorded. Patient is . ASSESSMENT & PLAN ICD-10-CM 1. Third trimester ([facility]) Z34.93 POCT urinalysis dipstick manually resulted 2. 32 weeks gestation of ([facility]) Z3A.32 3. H/O opioid abuse ([facility]) F11.11 4. History of placental abruption Z87.59 5. Diabetes mellitus screening Z13.1 Hemoglobin A1c Patient presents today for a routine obstetrics appointment. Patient is currently 32w5d with a Estimated Date of Delivery: 07/28/25. Patient desires to have Rpt w/ Tubal Ligation on07/06/25. Patient to return to clinic for routine OB care appointment in 2 weeks. Documented by Karmen Lynn LPN on behalf of: Tony Pringle DO documented in this encounter Plan of Treatment Upcoming Encounters Date Type Department Care Team (Late st Contact Info) Description 06/20/2025 2:30 PM EDT Routine [facility] [address] [place] [phone] Tony Pringle DO [address] [place] [address] Scheduled Orders Name Type Priority Associated Diagnoses Orde r Schedule Hemoglobin A1c Lab Routine Diabetes mellitus screening Ordered: 06/07/2025 documented as of this encounter Procedures Procedure Name Priority Date/Time Associated Diagnosis Comments POCT URINALYSIS DIPSTICK Routine 06/07/2025 10:26 AM EDT Third trimester ([facility]) documented in this encounter Results * (ABNORMAL) POCT urinalysis dipstick manually resulted (06/07/2025 10:26 AM EDT) Color, UA Yellow Clarity, UA Clear Glucose, UA Negative Negative - 2000(110) ++++ mg/dL Bilirubin, UA Negative Negative - 4(70) +++ mg/dL Ketones, UA Negative Negative - 160(16) ++++ mg/dL Spec Grav, UA 1.010 1 - 1.03 Blood, UA Negative Negative - 50 Amador/mcL pH, UA 7.5 5 - 9 Protein, UA Negative Negative - 2000(20) ++++ mg/dL Urobilinogen, UA 1.0 0.2 - 12 mg/dL Leukocytes, UA 3+ Negative - 500+++ Camille/mcL Nitrite, UA Negative Negative - Positive Urine 06/07/2025 10:2 6 AM EDT Tony Pringle DO POINT OF CARE TEST ENTER/EDIT OR DERABLES Final Result documented in this encounter Visit Diagnoses Diagnosis Third trimester ([facility]) state, incidental 32 weeks gestation of ([facility]) H/O opioid abuse ([facility]) History of placental abruption Diabetes mellitus screening Screening for diabetes mellitus documented in this encounter
--- OUTSIDE RECORDS SUMMARY | 2025-06-14 08:02 | XMS_ITS | Encounter Summary ---
Author Organization [facility] Address [address] [place] [address] Care Team Providers Care Senior Environmental Scientist Name Role Phone Unavailable Primary Care Provider Unavailabl e Encounter Details Date Type Department Care Team (Late st Contact Info) Description 06/07/2025 Bamboo flowsheet [facility] [address] [place] [address] Tony Pringle DO [address] [place], [facility] Social History Tobacco Use Types Packs/Day [...] 2:30 PM EDT Routine [facility] [address] [facility] [place] [address] Tony Pringle DO [address] [place] [address] documented as of this encounter Visit Diagnoses Not on filedocumented in this encounter
--- OUTSIDE RECORDS SUMMARY | 2025-06-14 08:02 | XMS_ITS | Encounter Summary ---
Author Organization [facility] Address [id number] [address] [place] [address] Care Team Providers Care Compounding Pharmacy Technician Name Role Phone No Pcp, No Pcp Primary Care Provider Unavailabl e Encounter Details Date Type Department Care Team (Late Contact Info) Description 05/30/2025 Orders Only Maternal- Medicine at [facility] [address] [place] [phone] Ref Prov, [place] [address] Social History Tobacco Use Types Packs/Day Years [...] Info) Description 07/05/2025 1:00 PM EDT Appointment [facility] [address] [place] [phone] 07/05/2025 2:30 PM EDT Office Visit Maternal- Medicine at [facility] [address] [place] [phone] Tasia Dowd MD [address] [place] [address] documented as of this encounter Procedures Procedure [...] on filedocumented in this encounter Care Teams Compounding Pharmacy Technician Relationship Specialty Start Date End Date No Pcp, [place] [address] PCP - General Family Medicine 04/27/20 documented as of this encounter
--- OUTSIDE RECORDS SUMMARY | 2025-06-14 08:02 | XMS_ITS | Encounter Summary ---
Author Organization [facility] Address [address] [place] [address] Care Team Providers Care Radio Sales Account Executive Name Role Phone Unavailable Primary Care Provider Unavailabl e Encounter Details Date Type Department Care Team (Late st Contact Info) Description 05/28/2025 Abstract [facility] [address] [facility] [place] [address] Tony Pringle DO [address] [place] [address] Social History Tobacco Use Types Packs/Day [...] EDT Routine NOMJennifer CAMPBELL [address] [place] [address] Tony Pringle DO [address] [place], [facility] documented as of this encounter Visit Diagnoses Not on filedocumented in this encounter
--- OUTSIDE RECORDS SUMMARY | 2025-06-14 08:02 | XMS_ITS | Patient Health Record ---
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 Name Role Phone Farideh Gar Primary Care Provider [phone] Allergies Allergen (clinical drug ingredient) Drug/Non Drug [...] 11:53:12 AM Interpretation: Performing Lab: Notes/Report: [facility] , Influenza Virus A Antigen Negative [...] Performing Lab: see note ML - The [facility] LB SARS-CoV-2 Ag* Reviewed date:09/20/2024 11:53:12 AM Interpretation: Performing Lab: Notes/Report: [facility] , SARS-CoV-2 Ag NEGATIVE NEGATIVE the [...] Performing Lab: see note ML - The [facility] PREG QUANT HCG Reviewed date:11/29/2024 11:58:32 AM Interpretation: Performing Lab: Notes/Report: [facility] , HCG Quantitative 3026 10,000-100,000 2-3 MONTHS 500-10,000 3-4 WEEKS 50-500 1-2 WEEKS 1,000-50,000 4-5 WEEKS 100-5,000 2-3 WEEKS 10,000-100,000 5-6 WEEKS 5-50 0.2-1 WEEK 15,000-200,000 6-8 WEEKS Performing Lab: see note ML - [facility] US OB <= 14 weeks fetus Reviewed date:01/22/2025 04:10:34 PM Interpretation: Performing Lab: Notes/Report: Source Facility: [place] [address] Ultrasound Report Signed Patient: CARMELITA CASON MR#: [id number] : 1990 Acct:[id number] Age/Sex: 34 / F ADM Date: 01/22/25 Loc: US Attending Dr: Mee Pringle D.O. Ordering Physician: Mee Pringle D.O. Date of Service: 01/22/25 Procedure(s): US OB <= 14 weeks fetus Accession Number(s): [id number] cc: FARIDEH GAR ; Mee Pringle D.O. The [place] [address] Patient Name: CARMELITA CASON MRN: [id number] date: 1990 Sex: F Assigned Patient Location: US Current Patient Location: US Accession/Order Number: [id number] Exam Date: 01/22/2025 14:49 Report Date: 01/22/2025 [...] Sorto Jr., D.O.01/22/2025 2:50 PM Dictation [facility] Electronically authenticated by: [id number] Y Date: 01/22/2025 14:50 Dictated By: Serafin Sorto M.D. Signed By: 01/22/25 1453 DD/ 1450 TD/TT: Graduate Engineer: [place] [address] Ultrasound Report Signed Patient: JUNAID CASON SA MR#: [id number] : 1990 Acct:[id number] Age/Sex: 34 / F ADM Date: 01/22/25 Loc: US Attending Dr: Mee Pringle D.O. Ordering Physician: Mee Pringle D.O. Date of Service: 01/22/25 Procedure(s): US OB <= 14 weeks fetus Accession Number(s): [id number] cc: FARIDEH GAR ; Mee Pringle D.O. [address] [address] Patient Name: CARMELITA CASON MRN: [id number] date: 1990 Sex: F Assigned Patient Location: US Current Patient Location: US Accession/Order Numb er: [id number] Exam Date: 01/22/2025 14:49 Report Date: 01/22/2025 [...] Sorto Jr., D.O.01/22/2025 2:50 PM Dictation Location: [place] [address] Electronically authenticated by: [id number] Y Date: 01/22/2025 14:50 Dictated By: Serafni Sorto M.D. Signed By: 01/22/25 1453 DD/ 1450 TD/TT: Graduate Engineer: US OB cervical length Reviewed date:04/09/2025 01:25:12 PM Interpretation: Performing Lab: Notes/Report: Source Facility: [place] [address] Ultrasound Report Signed Patient: CARMELITA CASON MR#: [id number] : 1990 Acct:[id number] Age/Sex: 34 / F ADM Date: 04/09/25 Loc: US Attending Dr: Paradise Olvera Ordering Physician: Paradise Olvera Date of Service: 04/09/25 Procedure(s): US OB cervical length Accession Number(s): [id number] cc: Paradise Olvera; FARIDEH GAR [place] [id number] Patient Name: CARMELITA CASON MRN: [id number] date: 1990 Sex: F Assigned Patient Location: US Current Patient Location: US Accession/Order Number: [id number] Exam Date: 04/09/2025 12:20 Report Date: 04/09/2025 [...] all 4 extremities were surveyed by the brass instrument repair technician. No abnormalities were detected. The stomach, bladder, [...] Zelaya M.D. 04/09/2025 1:01 PM Dictation Location: [place] [address] Electronically authenticated by: [id number] Y Date: 04/09/2025 13:01 Dictated By: Raine Zelaya M.D. Signed By: 04/09/25 1304 DD/ 1301 TD/TT: Graduate Engineer: The [address] [address] Ultrasound Report Signed Patient: JUNAID CASON SA MR#: [id number] : 1990 Acct:[id number] Age/Sex: 34 / F ADM Date: 04/09/25 Loc: US Attending Dr: Paradise Olvera Ordering Physician: Paradise Olvera Date of Service: 04/09/25 Procedure(s): US OB cervical length Accession Number(s): [id number] cc: Paradise Olvera; FARIDEH GAR [address] [address] Patient Name: CARMELITA CASON MRN: [id number] date: 1990 Sex: F Assigned Patient Location: US Current Patient Location: US Accession/Order Numb er: [id number] Exam Date: 04/09/2025 12:20 Report Date: 04/09/2025 [...] all 4 extremities were surveyed by the brass instrument repair technician. No abnormalities were detected. The stomach, bladder, [...] Zelaya M.D. 04/09/2025 1:01 PM Dictation Location: [place] [address] Electronically authenticated by: [id number] Y Date: 04/09/2025 13:01 Dictated By: Raine Zelaya M.D. Signed By: 04/09/25 1304 DD/ 1301 TD/TT: Graduate Engineer: US OB anatomy Reviewed date:04/09/2025 01:25:12 PM Interpretation: Performing Lab: Notes/Report: Source Facility: [place] [address] Ultrasound Report Signed Patient: CARMELITA CASON MR#: [id number] : 1990 Acct:[id number] Age/Sex: 34 / F ADM Date: 04/09/25 Loc: US Attending Dr: Paradise Olvera Ordering Physician: Paradise Olvera Date of Service: 04/09/25 Procedure(s): US OB anatomy Accession Number(s): [id number] cc: Paradise Olvera; FARIDEH GAR [place] [address] Patient Name: CARMELITA CASON MRN: [id number] date: 1990 Sex: F Assigned Patient Location: Current Patient Location: US Accession/Order Number: [id number] Exam Date: 04/09/2025 12:20 Report Date: 04/09/2025 [...] all 4 extremities were surveyed by the brass instrument repair technician. No abnormalities were detected. The stomach, bladder, [...] Zelaya M.D. 04/09/2025 1:01 PM Dictation Location: [place] [address] Electronically authenticated by: [id number] Y Date: 04/09/2025 13:01 Dictated By: Raine Zelaya M.D. Signed By: 04/09/25 1304 DD/ 1301 TD/TT: Graduate Engineer: [address] [address] Ultrasound Report Signed Patient: JUNAID CASON SA MR#: [id number] : 1990 Acct:[id number] Age/Sex: 34 / F ADM Date: 04/09/25 Loc: US Attending Dr: Paradise Olvera Ordering Physician: Paradise Olvera Date of Service: 04/09/25 Procedure(s): US OB anatomy Accession Number(s): [id number] cc: Paradise Olvera; FARIDEH GAR [address] [address] Patient Name: CARMELITA CASON MRN: [id number] date: 1990 Sex: F Assigned Patient Location: US Current Patient Location: US Accession/Order Numb er: [id number] Exam Date: 04/09/2025 12:20 Report Date: 04/09/2025 [...] all 4 extremities were surveyed by the brass instrument repair technician. No abnormalities were detected. The stomach, bladder, [...] Zelaya M.D. 04/09/2025 1:01 PM Dictation Location: [place] [address] Electronically authenticated by: [id number] Y Date: 04/09/2025 13:01 Dictated By: Raine Zelaya M.D. Signed By: 04/09/25 1304 DD/ 1301 TD/TT: Graduate Engineer: RUBELLA AB IGG Reviewed date:05/24/2025 03:14:14 PM Interpretation: Performing Lab: Notes/Report: [facility] , Rubella Antibodies, IgG <0.90 Immune > 0.99 index Non-immune <0.90 Oxygen Equipment Technician: Aric Pryor PhD, Phone: [phone] Immune >0.[address] [place] [phone] Performed at: [facility] Equivocal 0.90 - 0.99 Performing Lab: see note [facility] HCV Antibody RFX to Quant PC R Reviewed date:05/24/2025 03:14:14 PM Interpretation: Performing Lab: Notes/Report: [facility] , HCV Ab Reactive Non Reactive Hepatitis C Quantitation 89077 . IU/mL HCV log10 4.819 . Result Units: l og10 IU/mL Test Information: Comment . The quantitative range of this assay is 15 IU/mL to 100 million IU/mL. Interpretation: Comment . is consistent with active infection. [address] [place] [phone] [place] [phone] Performed at: [facility] Positive HCV antibody screen with the presence of HCV RNA Performed at: [facility] Oxygen Equipment Technician: Miles Owens MD, Phone: [phone] Oxygen Equipment Technician: Aric Pryor PhD, Phone: [phone] Performing Lab: see note [facility] SUSI Anticardiolip Ab, IgA/G/M, Q n Reviewed date:06/11/2025 10:27:42 AM Interpretation: Performing Lab: Notes/Report: [facility] , Anticardiolipin Ab,IgG,Qn <9 0-14 GPL U/mL Low-Med Positive: >20 - 80 High Positive: >80 Negative: <15 Indeterminate: 15 - 20 Anticardiolipin Ab,IgM,Qn <9 0-12 MPL U/mL Negative: <13 High Positive: >80 Low-Med Positive: >20 - 80 Indeterminate: 13 - 20 Anticardiolipin Ab,IgA,Qn <9 0-11 APL U/mL Low-Med Positive: >20 - 80 Negative: <12 High Positive: >80 Indeterminate: 12 - 20 Performed at: [facility] Oxygen Equipment Technician: Aric Pryor PhD, Phone: [phone] [address] [place], [place] [phone] Performing Lab: see note [facility] SUSI US OB BPP w non-stress Reviewed date:06/11/2025 12:59:27 PM Interpretation: Performing Lab: Notes/Report: Source Facility: [place] [address] [place] [address] Ultrasound Report Signed Patient: CARMELITA CASON MR#: [id number] : 1990 Acct:[id number] Age/Sex: 34 / F ADM Date: 06/11/25 Loc: US Attending Dr: Mee Pringle D.O. Ordering Physician: Mee Pringle D.O. Date of Service: 06/11/25 Procedure(s): US OB BPP w non-stress Accession Number(s): [id number] cc: FARIDEH GAR ; Mee Pringle D.O. The [place] [address] Patient Name: CARMELITA CASON MRN: [id number] date: 1990 Sex: F Assigned Patient Location: [facility] Current Patient Location: Accession/Order Number: [id number] Exam Date: 06/11/2025 11:44 Report Date: 06/11/2025 11:45 At the request of: MEE PRINGLE DO Procedure: US OB BPP w non-stress Biophysical profile. Reason for exam: History of placental abruption COMPARISON: 06/05/2025 TECHNIQUE: Transabdominal imaging of the gravid uterus was obtained. FINDINGS: The brass instrument repair technician reports a BPP of 8 out of 8. ELIZABETH is normal at 21.3 cm. heart rate 142 bpm. US/US OB BPP w non-stress IMPRESSION: BPP 8 out of 8. Impression dictated by: Serafin Sorto Jr., D.O. 06/11/2025 11:45 AM Dictation Location: [place] [address] Electronically authenticated by: [id number] Y Date: 06/11/2025 11:45 Dictated By: Serafin Sorto M.D. Signed By: 06/11/25 1148 DD/ 1145 TD/TT: Graduate Engineer: The [address] [address] Ultrasound Report Signed Patient: JUNAID CASON SA MR#: [id number] : 1990 Acct:[id number] Age/Sex: 34 / F ADM Date: 06/11/25 Loc: US Attending Dr: Mee Pringle D.O. Ordering Physician: Mee Pringle D.O. Date of Service: 06/11/25 Procedure(s): US OB BPP w non-stress Accession Number(s): [id number] cc: FARIDEH GAR ; Mee Pringle D.O. The [place] [id number] Patient Name: CARMELITA CASON MRN: [id number] date: 1990 Sex: F Assigned Patient Location: [facility] Current Patient Location: Accession/Order Numb er: [id number] Exam Date: 06/11/2025 11:44 Report Date: 06/11/2025 11:45 At the request of: MEE PRINGLE DO Procedure: US OB fet al BPP w non-stress Biophysical profile. Reason for exam: History of placental abruption COMPARISON: 06/05/2025 TECHNIQUE: Transabdominal imaging of the gravid uterus was obtained. FINDINGS: The brass instrument repair technician reports a BPP of 8 out of 8. ELIZABETH is normal at 21.3 cm. heart rate 142 bpm. US/US OB BPP w non-stress IMPRESSION: BPP 8 ou t of 8. Impression dictated by: Serafin Sorto Jr., D.O. 06/11/2025 11:45 AM Dictation Location: [place] [address] Electronically authenticated by: [id number] Y Date: 06/11/2025 11:45 Dictated By: Serafin Sorto M.D. Signed By: 06/11/25 1148 DD/ 1145 TD/TT: Graduate Engineer: Prothrombin Time INR Reviewed date:06/08/2025 01:28:14 PM Interpretation: Performing Lab: Notes/Report: [facility] , Prothrombin Time 10.3 9.0-11.6 sec INR 0.97 2.5-3.5 RECURRENT THROMBOSIS 2.0-3.0 CONDITIONS NOT LISTED BELOW 2.5-3.5 FOR PROSTHETIC HEART VALVE REPLACEMENT DESIRED INR: Performing Lab: see note - [facility] PTT Reviewed date:06/08/2025 01:28:14 PM Interpretation: Performing Lab: Notes/Report: [facility] , Partial Thromboplastin Time 23.4 22.3-36.2 sec Performing Lab: see note [facility] PROF 14(COMP METB) Reviewed date:06/08/2025 01:28:14 PM Interpretation: Performing Lab: Notes/Report: [facility] , Sodium 140 136-145 mmol/L Potassium [...] Globulin Ratio 0.6 Performing Lab: see note - [facility] GLYCOHEMOGLOBIN A1C Reviewed date:06/08/2025 01:28:14 PM Interpretation: Performing Lab: Notes/Report: [facility] , Glycohemoglobin A1C 4.6 4.5-6.2 % ADA RECOMMENDED LIMIT 4.0 - 6.0 ACTION SUGGESTED > 7.0 ADA THERAPEUTIC TARGET < 7.0 Estimated Average Glucose 85 Performing Lab: see note - [facility] US OB BPP w non-stress Reviewed date:06/05/2025 03:34:23 PM Interpretation: Performing Lab: Notes/Report: Source Facility: [place] [address] [place] [address] Ultrasound Report Signed Patient: CARMELITA CASON MR#: [id number] : 1990 Acct:[id number] Age/Sex: 34 / F ADM Date: 06/05/25 Loc: US Attending Dr: Mee Pringle D.O. Ordering Physician: Mee Pringle D.O. Date of Service: 06/05/25 Procedure(s): US OB BPP w non-stress Accession Number(s): [id number] cc: FARIDEH GAR ; Mee Pringle D.O. The [place] [address] Patient Name: CARMELITA CASON MRN: [id number] date: 1990 Sex: F Assigned Patient Location: US Current Patient Location: Accession/Order Number: [id number] Exam Date: 06/05/2025 11:53 Report Date: 06/05/2025 12:03 At the request of: MEE PRINGLE DO Procedure: US OB BPP w non-stress Biophysical profile. Reason for exam: History of opioid abuse COMPARISON: None TECHNIQUE: Transabdominal imaging of the gravid uterus was obtained. FINDINGS: The brass instrument repair technician reports a BPP of 8 out of 8. ELIZABETH is normal at 21 cm. heart rate 135 bpm. US/US OB BPP w non-stress IMPRESSION: BPP 8 out of 8. Impression dictated by: Serafin Sorto Jr., D.O. 06/05/2025 12:03 PM Dictation Location: [place] [address] Electronically authenticated by: [id number] Y Date: 06/05/2025 12:03 Dictated By: Serafin Sorto M.D. Signed By: 06/05/25 120 DD/ 120 TD/TT: Graduate Engineer: [place] [address] Ultrasound Report Signed Patient: JUNAID CASON SA MR#: [id number] : 1990 Acct:[id number] Age/Sex: 34 / F ADM Date: 06/05/25 Loc: US Attending Dr: Mee Pringle D.O. Ordering Physician: Mee Pringle D.O. Date of Service: 06/05/25 Procedure(s): US OB BPP w non-stress Accession Number(s): [id number] cc: FARIDEH GAR ; Mee Pringle D.O. [facility] [address] [place] [id number] Patient Name: CARMELITA CASON MRN: [id number] date: 1990 Sex: F Assigned Patient Location: US Current Patient Location: Accession/Order Numb er: [id number] Exam Date: 06/05/2025 11:53 Report Date: 06/05/2025 12:03 At the request of: MEE PRINGLE DO Procedure: US OB fet al BPP w non-stress Biophysical profile. Reason for exam: History of opioid abuse COMPARISON: None TECHNIQUE: Transabdominal imaging of the gravid uterus was obtained. FINDINGS: The brass instrument repair technician reports a BPP of 8 out of 8. ELIZABETH is normal at 21 cm. heart rate 135 bpm. US/US OB BPP w non-stress IMPRESSION: BPP 8 ou t of 8. Impression dictated by: Serafin Sorto Jr., D.O. 06/05/2025 12:03 PM Dictation Location: [place] [address] Electronically authenticated by: [id number] Y Date: 06/05/2025 12:03 Dictated By: Serafin Sorto M.D. Signed By: 06/05/25 1206 DD/ 1203 TD/TT: Graduate Engineer: Buprenorphine Confirm, Urine Reviewed date:05/24/2025 12:34:03 PM Interpretation: Performing Lab: Notes/Report: [facility] , Buprenorphine Positive . Confirmation performed by Mass Spectrometry Buprenorphine Positive . Buprenorphine Conf, MS, UR 525 Cutoff=10 ng/mL Norbuprenorphine Positive . Norbuprenorphine Conf, MS,UR 905 Cutoff=10 ng/mL Performed at: [facility] RTP Oxygen Equipment Technician: Soledad Mendieta PhD, Phone: [phone] [address] [place], [place] [phone] Performing Lab: see note [facility] LB Urine Culture, Routine Reviewed date:05/23/2025 08:29:33 [...] Culture, Routine Urine Culture, Routine Performed at: [facility] Urine Culture, Routine Urine Culture, Routine [address] [place] [phone] Urine Culture, Routine Urine Culture, Routine Oxygen Equipment Technician: Isrrael Pryor PhD, Phone: [phone] Urine Culture, Routine Performing Lab: see note [facility] LB SEE REPORT - Hair Or Beauty Salon Manager Id information not found for OBX-specific promotion producer legend HBsAg Screen Reviewed date:05/22/2025 02:13:41 PM Interpretation: Performing Lab: Notes/Report: [facility] , HBsAg Screen Negative Negative Performed at: [address] [id number] Oxygen Equipment Technician: Aric Pryor PhD, Phone: [phone] Performing Lab: see note [facility] Rapid Plasma Reagin, Quant Reviewed date:05/22/2025 02:13:20 PM Interpretation: Performing Lab: Notes/Report: [facility] , Rapid Plasma Reagin, Quant Non Reactive NonRea<1:1 titer treated for syphilis infection. To screen for syphilis infection, a reflex cascade that includes both RPR and a ([id number]). Performed at: [address] [phone] treponema-specific assay should be utilized, such as Treponema pallidum (Syphilis) Screening [place] ([id number]) or Oxygen Equipment Technician: Aric Pryor PhD, Phone: [phone] RPR and Confirmatory Treponema pallidum Antibodies Please Note: This test does not meet current guidelines for screening and diagnosis of syphilis. This test is intended for following treatment response in patients being Rapid Plasma Reagin (RPR) Test With Reflex to Quantitative Performing Lab: see note - [facility] LB HIV Ab/p24 Ag with Reflex Reviewed date:05/22/2025 08:19:07 AM Interpretation: Performing Lab: Notes/Report: [facility] , HIV Ab/p24 Ag Screen Non Reactive Non Reactive HIV-1/HIV-2 antibodies and HIV-1 p24 antigen were NOT HIV Negative Oxygen Equipment Technician: Aric Pryor PhD, Phone: [phone] [address] [place], [place] [phone] detected. There is no laboratory evidence of HIV infection. [facility]formed at: [facility] Performing Lab: see note - [facility] Type and Screen Reviewed date:05/21/2025 04:53:53 PM Interpretation: Performing Lab: Notes/Report: [facility] , Blood Type B Positive Antibody Screen NEGATIVE GLYCOHEMOGLOBIN A1C Reviewed date:05/21/2025 04:53:53 PM Interpretation: Performing Lab: Notes/Report: [facility] , Glycohemoglobin A1C 4.7 4.5-6.2 % > 7.0 ADA THERAPEUTIC TARGET < 7.0 ACTION SUGGESTED ADA RECOMMENDED LIMIT 4.0 - 6.0 Estimated Average Glucose 88 Performing Lab: see note - [facility] LB DRUG SCREEN RAPID (URINE) Reviewed date:05/21/2025 04:53:53 PM Interpretation: Performing Lab: Notes/Report: [facility] , Cannabinoid Screen Urine NEGATIVE NEGATIVE [...] (Benzodiazepines): 150 ng/mL Performing Lab: see note ML - [facility] LB CBC AUTO DIFF Reviewed date:05/21/2025 04:53:53 PM Interpretation: Performing Lab: Notes/Report: [facility] , White Blood Count 11.8 4.0-11.0 [...] 3/uL Performing Lab: see note ML - [facility] LB CT sinus wo con Reviewed date:09/20/2024 11:50:08 AM Interpretation: Performing Lab: Notes/Report: Source Facility: [facility] [place] [address] [address] [address] Scan Report Signed Patient: CARMELITA CASON MR#: [id number] : 1990 Acct:[id number] Age/Sex: 34 / F ADM Date: 09/20/24 Loc: ER Attending Dr: Ordering Physician: Kimmie Santacruz D.O. Date of Service: 09/20/24 Procedure(s): CT sinus wo con Accession Number(s): [id number] cc: FARIDEH GAR [place] [address] Patient Name: CARMELITA CASON MRN: [id number] date: 1990 Sex: F Assigned Patient Location: ER Current Patient Location: Accession/Order Number: [id number] Exam Date: 09/20/2024 07:30 Report Date: 09/20/2024 [...] are widely patent. Electronically authenticated by: STEF PHILLIPS Date: 09/20/2024 08:28 Dictated By: Stef Phillips M.D. Signed By: 09/20/24830 DD/ 7 TD/TT: Graduate Engineer: [address] [address] [address] Scan Report Signed Patient: JUNAID CASON SA MR#: [id number] : 1990 Acct:[id number] Age/Sex: 34 / F ADM Date: 09/20/24 Loc: ER Attending Dr: Ordering Physician: Kimmie Santacruz D.O. Date of Service: 09/20/24 Procedure(s): CT sin us wo con Accession Number(s): [id number] cc: FARIDEH GAR [place] [address] Patient Name: CARMELITA CASON MRN: [id number] date: 1990 Sex: F Assigned Patient Location: ER Current Patient Location: Accession/Order Numb er: [id number] Exam Date: 07:30 Report Date: 09/20/2024 08:28 [...] are widely patent. Electronically authenticated by: STEF PHILLIPS Date: 09/20/2024 08:28 Dictated By: Stef Phillpis M.D. Signed By: 09/20/24830 DD/ 7 TD/TT: Graduate Engineer: SARS-CoV-2 Ag* Reviewed date:07/10/2024 01:40:12 PM Interpretation: Performing Lab: Notes/Report: [facility] , SARS-CoV-2 Ag POSITIVE NEGATIVE (EUA) [...] Performing Lab: see note ML - [facility] LB Reason For Referral Reason muscle spasm back, h x bulging disc L4-5 Diagnosis 1 Muscle spasm of back (M62.830) Referral Organization [facility] Referring Provider First Name Farideh Referring Provider [...] Status W/U Status Risk Notes Problem Anxiety (50737638) Anxiety (F41.9) Active confirmed Problem Bipolar disorder (34177498) Bipolar disorder (F31.9) Active confirmed Problem Smoking (12640570) Smoking (F17.200) Active confirmed Problem Major depressive disorder, single episode (05092534) Major depressive disorder, single episode (F32.9) Active confirmed Problem Loss of taste (40348655) Loss of taste (R43.2) Active confirmed Problem Attention deficit hyperactivity disorder (759012612) ADHD (F90.9) Active confirmed Vital Signs Temperature 98.4 degrees Fahrenheit 01/08/2025 Blood pressure diastolic 64 mm Hg 03/02/2025 Height 65 in 03/02/2025 Blood pressure systolic 102 mm Hg 03/02/2025 Weight 148.2 lbs 03/02/2025 BMI 24.66 kg/m2 03/02/2025 Procedures Procedure Date Ordered Date Performed Result Body Sit e CARDIO Stress Test - Treadmill Exercise 10/20/2024 N/A Encounters Encounter Location Date Provider Diagnosis [facility] [address] [place] [address] 07/10/2024 Farideh Gar [facility] [address] [place] [address] 09/19/2024 Farideh Gar Back pain M54.9 [facility] [address] [place] [address] 02/15/2025 Farideh Gar [facility] [address] [place] [address] 02/21/2025 Farideh Gar Anxiety F41.9 [facility] [address] [place] [address] 04/04/2025 Farideh Gar Anxiety F41.9 [facility] [address] [place] [facility] [address] 05/30/2025 Farideh Sarah [facility] [address] [place] [address] 06/19/2024 Farideh Gar Anxiety F41.9 [facility] [address] [place] [address] 07/10/2024 Farideh Gar Acute cough R05.1 [facility] [address] [place] [address] 10/20/2024 Farideh Gar Chest pressure R07.8 9 ; Anxiety F41.9 and Smoking F17.200 [place] [address] [place] [address] 11/17/2024 Farideh Gar Muscle spasm of back M62.830 [place] [address] [place] [address] 01/08/2025 Farideh Gar Loss of taste R43.2 ; URI (upper respiratory infection) J06.9 and Body aches R52 [place] [address] [place] [address] 03/02/2025 Farideh Gar [facility] physical exam Z02.0 Assessments Encounter Date [...] End Date [employer] [place] [employer] [address] [facility] [place] [address] [id number] Carmelita Cason Self - patient is the insured Medical (General) History Surgical History Surgery Date(Month/Year) D&C
--- OUTSIDE RECORDS SUMMARY | 2025-06-14 08:02 | XMS_ITS | Encounter Summary ---
Author Organization [facility] Address [address] [place] [address] Care Team Providers Care Aviation Medicine Specialist Name Role Phone Unavailable Primary Care Provider Unavailabl e Encounter Details Date Type Department Care Team (Late st Contact Info) Description 07/05/2015 Abstract HALEY CAMPBELL [address] [facility] [address] Tony Pringle DO [address] [place], [facility]11 Social History Tobacco Use Types Packs/Day [...] EDT Routine HALEY CAMPBELL [address] [place] [address] Tony Pringle DO [address] [place], [facility]11 documented as of this encounter Visit Diagnoses Not on filedocumented in this encounter
--- OUTSIDE RECORDS SUMMARY | 2025-06-14 08:02 | XMS_ITS | Encounter Summary ---
Author Organization [facility] Address [address] [place] [address] Care Team Providers Care Hydrogen Power Plant Engineer Name Role Phone Unavailable Primary Care Provider Unavailabl e Encounter Details Date Type Department Care Team (Late Contact Info) Description 05/30/2025 External Result Encounter [facility] Racquel CAMPBELL [address] [place] [address] Mee Pringle DO [facility] [place] [address] Social History Tobacco Use [...] Routine [facility] Racquel CAMPBELL [address] [place] [address] Mee Pringle DO [address] [place] [address] documented as of this encounter Procedures Procedure Name Priority Date/Time Associated Diagnosis Comments US OB 14+ WEEKS ANATOMY SCAN 05/30/2025 12:58 PM EDT documented in this encounter Results * US OB 14+ weeks anatomy scan (05/30/2025 12:58 PM EDT) Anatomical Region Laterality Modality Body Ultrasound 05/30/2025 12:5 8 PM EDT Narrative 05/30/2025 12:58 PM EDT THIS EXAM WAS PERFORMED AT [facility] NAME: YOAV MUNOZ : 1990 SEX: F Accession Number: [id number] ORDERING PHYSICIAN: MEE PRINGLE REFERRING PHYSICIAN: MEE PRINGLE Coding ----- --------- Procedures 21080: Ultrasound, uterus, real time with image documentation, and maternal evaluation plus detailed anatomic examination, transabdominal approach;single or first gestation Indication ----- --------- Screening for Anatomic Survey, Hepatitis C in , Malformation of placenta- complete circumvallate,History of prior with delivery- placental abruption, Previous History ----- --------- OB History 4. Para 3 [id number] Maternal Assessment ----- --------- Physical Exam Initial [...] EFW (oz) 14 oz EFW by: Hadlock ([id number]-[id number]-FL) Extended Tibia 48.3 mm 29w 1d 6% Mara Rn Paralegal 2.3 mm CM 9.6 mm 95% Nicolaides [...] view. RVOT view. LVOT view. 3-vessel view. 3-uxfmxd-tbnsbbl view. Situs. Bicaval view. Interventricular septum. Great [...] - 05/30/2025 THIS EXAM WAS PERFORMED AT [facility] NAME: YOAV MUNOZ : 1990 SEX: F Accession Number: [id number] ORDERING PHYSICIAN: MEE PRINGLE REFERRING PHYSICIAN: MEE PRINGLE Coding ----- --------- Procedures 91021: Ultrasound, uterus, real time with imagedocumentation, and maternal evaluation plus detailed anatomic examination, transabdominalapproach;single or first gestation Indication ----- --------- Screening for Anatomic Survey, Hepatitis C in , Malformation ofplacenta- complete circumvallate,History of prior with delivery- placental abruption, Previous History ----- --------- OB History 4. Para 3 [id number] Maternal Assessment ----- --------- Physical Exam Initial [...] EFW (oz) 14 oz EFW by: Hadlock (PEQ-CE-SI-FL) Extended Tibia 48.3 mm 29w 1d 6% Mara Rn Paralegal 2.3 mm CM 9.6 mm 95% Nicolaides [...] 4-chamber view. RVOT view. LVOT view. 3-vessel view.7-eincaw-omqebex view. Situs. Bicaval view. Interventricular septum. Great [...] byprimary OB provider unless otherwise specified by [facility]. Results forwarded to ordering provider so they can follow up with thepatient as necessary. us Mee Pringle DO IMG OB US PROCEDURES Final Resul t documented in this encounter Visit Diagnoses Not on filedocumented in this encounter
--- OUTSIDE RECORDS SUMMARY | 2025-06-14 08:02 | XMS_ITS | Encounter Summary ---
Author Organization [facility] Address [address] [place] [address] Care Team Providers Care Shell Mold Bonder Name Role Phone Unavailable Primary Care Provider Unavailabl e Encounter Details Date Type Department Care Team (Late st Contact Info) Description 05/30/2025 Abstract NOMJennifer CAMPBELL [address] [place], [place] [address] [address] Tony Pringle DO [address] [place] [address] Social History Tobacco Use Types Packs/Day [...] EDT Routine NOMJennifer CAMPBELL [address] [place] [address] Tony Pringle DO [address], [facility]11 documented as of this encounter Visit Diagnoses Not on filedocumented in this encounter
--- OUTSIDE RECORDS SUMMARY | 2025-06-14 08:02 | XMS_ITS | Encounter Summary ---
Author Organization [facility] Address [address] [place] [address] Care Team Providers Care Kelp Cutter Name Role Phone Unavailable Primary Care Provider Unavailabl e Encounter Details Date Type Department Care Team (Late st Contact Info) Description 06/08/2025 Clinisync Result Encounter [facility] External Department Unsolicited Tony Pringle DO [address] [place], [place] [id number] Social History Tobacco Use Types Packs/Day Years [...] PM EDT Routine NOMJennifer [place] OBGYJennifer [address] [place] [address] Tony Pringle DO [address] [place] [address] documented as of this encounter Procedures Procedure Name Priority Date/Time Associated Diagnosis Comments MLR HEMOGLOBIN A1C Routine 06/08/2025 11 :34 AM EDT documented in this encounter Results * MLR HEMOGLOBIN A1C (06/08/2025 11:34 AM EDT) GLYCOHEMOGLOBIN A1C 4.6 4.5 - 6.2 % [facility] Comment: ADA RECOMMENDED LIMIT 4.0 - 6.0 ADA THERAPEUTIC TARGET < 7.0 ACTION SUGGESTED > 7.0 ESTIMATED AVERAGE GLUCOSE 85 mg/dL TB 06/08/2025 11:3 4 AM EDT 06/08/2025 11:37 AM EDT Narrative [facility] - 06/08/2025 12:21 PM EDT us Tony Yary DO [facility] documented in this encounter Visit Diagnoses Not on filedocumented in this encounter
--- OUTSIDE RECORDS SUMMARY | 2025-06-14 08:03 | XMS_ITS | Encounter Summary ---
Author Organization [facility] Address [id number] [address] [place] [address] Care Team Providers Care Cone Sewer Name Role Phone No Pcp, No Pcp Primary Care Provider Unavailabl e Encounter Details Date Type Department Care Team (Late Contact Info) Description 05/30/2025 Orders Only Maternal- Medicine at [facility] [address] [place] [phone] Paradise Raya LPN Social History Tobacco Use [...] Description 07/05/2025 1:00 PM EDT Appointment [facility] US Imaging [address] [facility] [place] [phone] 07/05/2025 2:30 PM EDT Office Visit Maternal- Medicine at [facility] [address] [facility] [place] [address] Tasia Dowd MD [address] [facility] [address] [place] [address] documented as of this encounter Visit Diagnoses Not on filedocumented in this encounter Care Teams Cone Sewer Relationship Specialty Start Date End Date No Pcp, [place] [address] PCP - General Family Medicine 04/27/20 documented as of this encounter
--- OUTSIDE RECORDS SUMMARY | 2025-06-14 08:03 | XMS_ITS | Encounter Summary ---
Author Organization [facility] Address [address] [facility] [place] [address] Care Team Providers Care Wave Soldering Machine Operator Name Role Phone Unavailable Primary Care Provider Unavailabl e Encounter Details Date Type Department Care Team (Late st Contact Info) Description 06/05/2025 Clinisync Result Encounter [facility] External Department Unsolicited Mee Pringle DO [address] [place], [place] [phone] Social History Tobacco Use Types Packs/Day Years [...] Routine [facility] Racquel OBGYN [address] [place] [address] Mee Pringle DO [address] [place] [address] documented as of this encounter Procedures Procedure Name Priority Date/Time Associated Diagnosis Comments US OB BPP W NON-STRESS 06/05/2025 12:03 PM EDT documented in this encounter Results * US OB BPP W NON-STRESS (06/05/2025 12:03 PM EDT) Anatomical Region Laterality Modality Other 06/05/2025 12:0 3 PM EDT Narrative 06/05/2025 12:06 [place] [address] Ultrasound Report Signed Patient: CARMELITA YANEZ MR#: [id number] : 1990 Acct:[id number] Age/Sex: 34 / F ADM Date: 06/05/25 Loc: US Attending Dr: Mee Pringle D.O. Ordering Physician: Mee Pringle D.O. Date of Service: 06/05/25 Procedure(s): US OB BPP w non-stress Accession Number(s): [id number] cc: ROMEO GAR ; Mee Pringle D.O. [place] [address] Patient Name: CARMELITA YANEZ MRN: [id number] date: 1990 Sex: F Assigned Patient Location: Current Patient Location: Accession/Order Number: [id number] Exam Date: 06/05/2025 11:53 Report Date: 06/05/2025 12:03 At the request of: MEE PRINGLE DO Procedure: US OB BPP w non-stress Biophysical profile. Reason for exam: History of opioid abuse COMPARISON: None TECHNIQUE: Transabdominal imaging of the gravid uterus was obtained. FINDINGS: The ship scaler reports a BPP of 8 out of 8. ELIZABETH is normal at 21 cm. heart rate 135 bpm. US/US OB BPP w non-stress IMPRESSION: BPP 8 out of 8. Impression dictated by: Serafin Sorto Jr., D.O. 06/05/2025 12:03 PM Dictation Location: [place] [address] Electronically authenticated by: [id number] Y Date: 06/05/2025 12:03 Dictated By: Serafin Sorto M.D. Signed By: 06/05/25 1206 DD/ 120 TD/TT: Project Control Officer: Procedure Note Radiology, Radiologist, - 06/05/2025 [place] [address] Ultrasound Report Signed Patient: CARMELITA YANEZ NMR#: [id number] : 1990Acct:[id number] Age/Sex: 34 / FADM Date: 06/05/25 Loc: US Attending Dr: Mee Pringle D.O. Ordering Physician: Mee Pringle D.O. Date of Service: 06/05/25 Procedure(s): US OB BPP w non-stress Accession Number(s): [id number] cc: ROMEO GAR ; Mee Pringle D.O. The [place] [address] Patient Name: CARMELITA YANEZ MRN: [id number] date: 1990 Sex: F Assigned Patient Location: US Current Patient Location: Accession/Order Number: [id number] Exam Date: 06/05/2025 11:53 Report Date: 06/05/2025 12:03 At the request of: MEE PRINGLE DO Procedure: US OB BPP w non-stress Biophysical profile. Reason for exam: History of opioid abuse COMPARISON: None TECHNIQUE: Transabdominal imaging of the gravid uterus was obtained. FINDINGS: The ship scaler reports a BPP of 8 out of 8. ELIZABETH is normal at21 cm. heart rate 135 bpm. US/US OB BPP w non-stress IMPRESSION: BPP 8 out of 8. Impression dictated by: Serafin Sorto Jr., D.O. 06/05/2025 12:03 PM Dictation Location: [place] [address] Electronically authenticated by: [id number] Y Date: 2:03 Dictated By: Serafin Sorto M.D. Signed By:06/05/25 1206 DD/ 1203 TD/TT: Project Control Officer: us Mee Pringle DO [facility] Final Result documented in this encounter Visit Diagnoses Not on filedocumented in this encounter
--- OUTSIDE RECORDS SUMMARY | 2025-06-14 08:03 | XMS_ITS | CCD ---
Author Organization [facility] Care Team Providers Care Transit Planning Director Name Role Phone Sidney Nava Unavailable Unavailable Unavailable Primary Care Provider Unavailabl e Unavailable Primary Care Provider Unavailabl e CATRINA, MALINI Referring Unavailable CATRINA, MALINI Referring Unavailable CATRINA, MALINI Referring Unavailable CATRINA, MALINI Referring Unavailable Helder Monk MD Attending Unavailable PETROS, DR COOK Admitting Unavailable REQUEST, DR NONE LISTED Primary Care Unavaila ble KARMICHAEL, [...] Unavailable REQUEST, NONE LISTED Primary Care Unavaila ruth VANN, CRISTHIAN SPAIN Consulting Unavailable PAY, DR BAL Attending Unavailable REQUEST, NONE LISTED Primary Care Unavaila ble KARASIK, DR COOK Consulting Unavailable KARASIK, DR COOK Attending Unavailable KARASIK, DR COOK Admitting Unavailable ZIEBER, DR MAYUR Noriega Consulting Unavailable Unavailable Primary Care Provider Unavailabl e No Pcp, No Pcp Primary Care Provider Unavailabl e MEE PRINGLE R Referring Unavailable NO PCP, NO PCP Primary Care Unavailable NOHEMY HERNANDEZ Attending Unavailable MEE PRINGLE R Referring Unavailable NO PCP, NO PCP Primary Care Unavailable MEE PRINGLE Attending Unavailable MEE PRINGLE Attending Unavailable MEE PRINGLE Attending Unavailable MEE PRINGLE Attending Unavailable Allergies Allergy Classification Reported Allergen(s) Allergy Type Date of Onset Reaction(s) Facility (2 sources) Penicillins; Translations: [PENICILLINS] Drug allergy (disorder) 3 [facility] (19 sources) Penicillin G Drug Allergy 5 [facility] Work Phone: (3 sources) Penicillins Propensity to adverse reactions to drug 0 [facility] (4 sources) Penicillins Propensity to adverse reactions 0 [facility] Medications Current Medications Medication Drug Class(es) Dates Sig (Normalized) Sig (Original) buprenorphine 8 mg / naloxone 2 mg sublingual film (20 sources) Partial Opioid Agonist, Opioid Antagonist Start: [...] daily. Active gabapentin 100 mg oral capsule (20 sources) Anti-epileptic Agent gabapentin (Neurontin) 100 MG capsule as directed for 9 days Active hydrOXYzine pamoate 100 mg oral capsule (3 sources) Antihistamine take 1 capsule by mouth once daily hydrOXYzine (VISTARIL) 100 mg capsule Take 100 mg by mouth daily. Active magnesium oxide 400 mg oral tablet (19 sources) Start: 04-13-20 End: 04-13-20 26 take 1 tablet by mouth once daily magnesium oxide (Mag-Ox) 400 MG tablet Indications: headache in second trimester ([facility]) Take 1 tablet (400 mg) by mouth Daily 30 tablet 11 04/13/2025 04/13/2026 Active naltrexone microspheres (VIVITROL IM) (3 sources) naltrexone microspheres (VIVITROL IM) Inject into the appropriate muscle. Active no115/iron/folic acid ( 19 ORAL) (1 source) take 1 tablet by mouth at bedtime no115/iron/folic acid ( 19 ORAL) Take 1 tablet by mouth before bedtime. Active QUEtiapine 50 mg oral tablet (20 sources) Atypical Antipsychotic Start: 03-23-20 take 1 tablet by mouth at bedtime [...] 12-10-2022 Episodic Other and delivery including normal (10 sources) ; Translations: [Encounter for supervision of normal , unspecified, unspecified trimester] 04-06-2025 Episodic Other screening for suspected conditions (not mental disorders or infectious disease) (9 sources) Encounter for screening for malignant neoplasm of cervix; Translations: [Patient encounter status] Onset: 06-15-2022 Episodic Residual codes; unclassified (2 sources) Gestation period, 25 weeks; Translations: [25 weeks gestation of ] 04-18-2025 Episodic Residual codes; unclassified (2 sources) Gestation period, 27 weeks; Translations: [27 weeks gestation of ] 05-02-2025 Episodic Residual codes; unclassified (7 sources) History of placental abruption; Translations: [Personal [...] childbirth and the puerperium] Onset: 05-30-2025 Episodic Residual codes; unclassified (2 sources) Gestation period, 32 weeks; Translations: [32 weeks gestation of ] 06-07-2025 Episodic Substance-related disorders (8 sources) Nicotine dependence, cigarettes, uncomplicated; Translations: [Opioid [...] 07-31-2022 Episodic Other aftercare (5 sources) Other penitentiary (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 therapy; Translations: [OTH [facility] CURRENT DRUG THERAPY] Onset: 07-31-2022 Episodic Other [...] Interpretation Reference Range Facil ity US OB BPP W NON-STRESS on 06-11-2025 [place] [address] Ultrasound Report Signed Patient: CARMELITA CASON MR#: [id number] : 1990 Acct:[id number] Age/Sex: 34 / F ADM Date: 06/11/25 Loc: US Attending Dr: Mee Pringle D.O. Ordering Physician: Mee Pringle D.O. Date of Service: 06/11/25 Procedure(s): US OB BPP w non-stress Accession Number(s): [id number] cc: ROMEO GAR ; Mee Pringle D.O. [place] [address] Patient Name: CARMELITA CASON MRN: [facility]:[id number] date: 1990 Sex: F [facility] Current Patient Location: Accession/Order Number: [id number] Exam Date: 06/11/2025 11:44 Report Date: 06/11/2025 11:45 At the request of: MEE PRINGLE DO Procedure: US OB BPP w non-stress Biophysical profile. Reason for exam: History of placental abruption COMPARISON: 06/05/2025 TECHNIQUE: Transabdominal imaging of the gravid uterus was obtained. FINDINGS: The is technician reports a BPP of 8 out of 8. ELIZABETH is normal at 21.3 cm. heart rate 142 bpm. US/US OB BPP w non-stress IMPRESSION: BPP 8 out of 8. Impression dictated by: Serafin Sorto Jr., D.O. 06/11/2025 11:45 AM Dictation Location: [place] [address] Electronically authenticated by: [id number] Y Date: 06/11/2025 11:45 Dictated By: Serafin Sorto M.D. Signed By: 06/11/25 1148 DD/ 1145 TD/TT: Sleeve Separator: [facility] Radiology, Radiologist, - 06/11/2025 [place] [address] Ultrasound Report Signed Patient: CARMELITA CASON MR#: [id number] : 1990 Acct:[id number] Age/Sex: 34 / F ADM Date: 06/11/25 Loc: US Attending Dr: Mee Pringle D.O. Ordering Physician: Mee Pringle D.O. Date of Service: 06/11/25 Procedure(s): US OB BPP w non-stress Accession Number(s): [id number] cc: ROMEO GAR ; Mee Pringle D.O. [address] [place] [address] Patient Name: CARMELITA CASON MRN: [facility]:[id number] date: 1990 Sex: F [facility] Current Patient Location: Accession/Order Number: [id number] Exam Date: 06/11/2025 11:44 Report Date: 06/11/2025 11:45 At the request of: MEE PRINGLE DO Procedure: US OB BPP w non-stress Biophysical profile. Reason for exam: History of placental abruption COMPARISON: 06/05/2025 TECHNIQUE: Transabdominal imaging of the gravid uterus was obtained. FINDINGS: The is technician reports a BPP of 8 out of 8. ELIZABETH is normal at 21.3 cm. heart rate 142 bpm. US/US OB BPP w non-stress IMPRESSION: BPP 8 out of 8. Impression dictated by: Serafin Sorto Jr., D.O. 06/11/2025 11:45 AM Dictation Location: [place] [address] Electronically authenticated by: [id number] Y Date: 06/11/2025 11:45 Dictated By: Serafin Sorto M.D. Signed By: 06/11/25 1148 DD/ 1145 TD/TT: Sleeve Separator: [facility] Radiology Study observation (narrative) [facility] US OB BPP W NON-STRESS Ordered By: Radiologist Radiology on 06-11-2025 [facility] Work Phone: MLR HEMOGLOBIN A1Con 025 Glucose [Mass/Vol] 85 mg/dL [facility] HbA1c (Bld) [Mass fraction] 4.6 % 4.5 - 6.2 % [facility] Comment on above: ADA RECOMMENDED LIMI T 4.0 - 6.0 ADA THERAPEUTIC TARGET < 7.0 ACTION SUGGESTED > 7.0 [facility] Urinalysis macro (dipstick) panel (U)on 06-07-2025 Bilirubin, UA Negative Negative - 4(70) +++ mg/dL [facility] Blood, UA Negative Negative - 50 Amador/mcL [facility] Clarity, UA Clear [facility] Color, UA Yellow [facility] Glucose, UA Negative Negative - 1999(110) ++++ mg/dL [facility] Interpretation and review of laboratory results Abnormal [facility] Ketones, UA Negative Negative - 160(16) ++++ mg/dL [facility] Leukocytes, UA 3+ Negative - 500+++ Camille/mcL [facility] Nitrite, UA Negative Negative - Positive [facility] pH, UA 7.5 5 - 9 [facility] Protein, UA Negative Negative - 1999(20) ++++ mg/dL [facility] Spec Grav, UA 1.01 1 - 1.03 [facility] Urobilinogen, UA 1.0 0.2 - 12 mg/dL [facility] US OB BPP W NON-STRESS on 06-05-2025 [place] [address] Ultrasound Report Signed Patient: CARMELITA CASON MR#: [id number] : 1990 Acct:[id number] Age/Sex: 34 / F ADM Date: 06/05/25 Loc: US Attending Dr: Mee Pringle D.O. Ordering Physician: Mee Pringle D.O. Date of Service: 06/05/25 Procedure(s): US OB BPP w non-stress Accession Number(s): [id number] cc: ROMEO GAR ; Mee Pringle D.O. [place] [id number] Patient Name: CARMELITA CASON MRN: [facility]:[id number] date: 1990 Sex: F Assigned Patient Location: US Current Patient Location: Accession/Order Number: [id number] Exam Date: 06/05/2025 11:53 Report Date: 06/05/2025 12:03 At the request of: MEE PRINGLE DO Procedure: US OB BPP w non-stress Biophysical profile. Reason for exam: History of opioid abuse COMPARISON: None TECHNIQUE: Transabdominal imaging of the gravid uterus was obtained. FINDINGS: The is technician reports a BPP of 8 out of 8. ELIZABETH is normal at 21 cm. heart rate 135 bpm. US/US OB BPP w non-stress IMPRESSION: BPP 8 out of 8. Impression dictated by: Serafin Sorto Jr., D.O. 06/05/2025 12:03 PM Dictation Location: [place] [address] Electronically authenticated by: [id number] Y Date: 06/05/2025 12:03 Dictated By: Serafin Sorto M.D. Signed By: 06/05/25 1206 DD/ 1203 TD/TT: Sleeve Separator: [facility] Radiology, Radiologist, - 06/05/2025 [place] [address] Ultrasound Report Signed Patient: CARMELITA CASON MR#: [id number] : 1990 Acct:[id number] Age/Sex: 34 / F ADM Date: 06/05/25 Loc: US Attending Dr: Mee Pringle D.O. Ordering Physician: Mee Pringle D.O. Date of Service: 06/05/25 Procedure(s): US OB BPP w non-stress Accession Number(s): [id number] cc: ROMEO GAR ; Mee Pringle D.O. [place] [address] Patient Name: CARMELITA CASON MRN: [facility]:[id number] date: 1990 Sex: F Assigned Patient Location: US Current Patient Location: Accession/Order Number: [id number] Exam Date: 06/05/2025 11:53 Report Date: 06/05/2025 12:03 At the request of: MEE PRINGLE DO Procedure: US OB BPP w non-stress Biophysical profile. Reason for exam: History of opioid abuse COMPARISON: None TECHNIQUE: Transabdominal imaging of the gravid uterus was obtained. FINDINGS: The is technician reports a BPP of 8 out of 8. ELIZABETH is normal at 21 cm. heart rate 135 bpm. US/US OB BPP w non-stress IMPRESSION: BPP 8 out of 8. Impression dictated by: Serafin Sorto Jr., D.O. 06/05/2025 12:03 PM Dictation [facility] Electronically authenticated by: [id number] Y Date: 06/05/2025 12:03 Dictated By: Serafin Sorto M.D. Signed By: 06/05/25 1206 DD/ 1203 TD/TT: Sleeve Separator: [facility] Radiology Study observation (narrative) [facility] OB BPP W NON-STRESS Ordered By: Radiologist Radiology on 06-05-2025 [facility] Work Phone: CBC without diffOrdered By: Paradise Raya on 05-21-2025 Hematocrit (Bld) [Volume fraction] 30.6 % [facility] Hemoglobin (Bld) [Mass/Vol] 10.8 g/dL [facility] Platelets (Bld) [#/Vol] 176 10*3/uL [facility] Rbc Mcv (Fl) By Automated Count 79.3 [facility] Drug Screen, Urineon 025 Amphetamine/Methamphet amine Negative [facility] Barbiturates Negative [facility] Benzodiazepines Negative [facility] Cocaine Metabolite Negative [facility] Methadone Negative [facility] Opiates Negative [facility] Oxycodone Negative [facility] Phencyclidine Negative [facility] Thc Marijuana, Urine Negative [facility] HBV surface Ag IA on 05-21 Hepatitis B Surface Antigen Negative [facility] HCV Ab IA Qlon 05-21-2025 HCV Ab Ql (S) Reactive [facility] HIV 1+2 Ab+HIV1 p24 Ag IA Ql on 05-21-2025 HIV 1&2 AB/AG Non-Reactive [facility] Hemoglobin A1con 05-21-2025 HbA1c (Bld) [Mass fraction] 4.7 % 4.0 - 6.0 % [facility] No Panel Informationon 05-21 [facility] Rubella IGG immune statuson 05-21-2025 Rubella immune IgG [facility] T. pallidum IgG+IgM IA Ql (S )on 05-21-2025 Syphilis Non-Reactive [facility] DRUG SCREEN RAPID (URINE )on 05-21-2025 AMPHETAMINE SCREEN URINE Negative NEGATIVE [facility] BARBITURATES SCREEN URINE Negative NEGATIVE [facility] BENZODIAZEPINES SCREEN URINE Negative NEGATIVE [facility] BUPRENORPHINE SCREEN URINE Positive Abnormal NEGATIVE [facility] Comment on above: DRUG CLASS TEST [...] 300 ng/mL CANNABINOID SCREEN URINE Negative NEGATIVE [facility] COCAINE SCREEN URINE Negative NEGATIVE [facility] Interpretation and review of laboratory results Abnormal [facility] METHADONE SCREEN URINE Negative NEGATIVE NO [facility] METHAMPHETAMINES SCREEN URINE Negative NEGATIVE [facility] OPIATE SCREEN URINE Negative NEGATIVE [facility] OXYCODONE SCREEN URINE Negative NEGATIVE NO [facility] PHENCYCLIDINE SCREEN URINE Negative NEGATIVE [facility] TRICYCLIC ANTIDEPRESSANT URINE Negative NEGATIVE [facility] Type and screenon 05-21-2025 Abo/Rh(D) Positive [facility] Urinalysis macro (dipstick) panel (U)on 05-16-2025 Bilirubin, UA Negative Negative - 4(70) +++ mg/dL [facility] Blood, UA Negative Negative - 50 Amador/mcL [facility] Clarity, UA Clear [facility] Color, UA Yellow [facility] Glucose, UA Negative Negative - 1999(110) ++++ mg/dL [facility] Interpretation and review of laboratory results Abnormal [facility] Ketones, UA Negative Negative - 160(16) ++++ mg/dL [facility] Leukocytes, UA Moderate Negative - 500+++ Camille/mcL [facility] Nitrite, UA Negative Negative - Positive [facility] pH, UA 6.5 5 - 9 [facility] Protein, UA Negative Negative - 1999(20) ++++ mg/dL [facility] Spec Grav, UA 1.02 1 - 1.03 [facility] Urobilinogen, UA 1.0 0.2 - 12 mg/dL [facility] Urinalysis macro (dipstick) panel (U)on 04-18-2025 Bilirubin, UA Negative Negative - 4(70) +++ mg/dL [facility] Blood, UA Negative Negative - 50 Amador/mcL [facility] Clarity, UA Clear [facility] Color, UA Yellow [facility] Glucose, UA Negative Negative - 1999(110) ++++ mg/dL [facility] Interpretation and review of laboratory results Abnormal [facility] Ketones, UA Negative Negative - 160(16) ++++ mg/dL [facility] Leukocytes, UA Positive Negative - 500+++ Camille/mcL [facility] Nitrite, UA Negative Negative - Positive [facility] pH, UA 7.5 5 - 9 [facility] Protein, UA Negative Negative - 1999(20) ++++ mg/dL [facility] Spec Grav, UA 1.015 1 - 1.03 [facility] Urobilinogen, UA 0.2 0.2 - 12 mg/dL [facility] No Panel InformationOrdered By: Radiologist Radiology on 04-09-2025 [facility] Work Phone: No Panel Informationon 04-09 Radiology Study observation (narrative) [facility] US OB ANATOMYon 04-09-[address] [address] Ultrasound Report Signed Patient: CARMELITA CASON MR#: [id number] : 1990 Acct:[id number] Age/Sex: 34 / F ADM Date: 04/09/25 Loc: US Attending Dr: Paradise Olvera Ordering Physician: Paradise Olvera Date of Service: 04/09/25 Procedure(s): US OB anatomy Accession Number(s): [id number] cc: Paradise Olvera; ROMEO GAR [address] [address] Patient Name: CARMELITA CASON MRN: [id number] date: 1990 Sex: F Assigned Patient Location: US Current Patient Location: US Accession/Order Number: [id number] Exam Date: 04/09/2025 12:20 Report Date: 04/09/2025 13:01 At the request of: PAARDISE OLVERA Procedure: US OB anatomy CLINICAL DATA: [...] all 4 extremities were surveyed by the is technician. No abnormalities were detected. The stomach, [...] Zelaya M.D. 04/09/2025 1:01 PM Dictation Location: [place] [address] Electronically authenticated by: [id number] Y Date: 04/09/2025 13:01 Dictated By: Raine Zelaya M.D. Signed By: 04/09/25 1304 DD/ 1301 TD/TT: Sleeve Separator: [facility] Radiology, Radiologist, - 04/09/2025 [place] [address] Ultrasound Report Signed Patient: CARMELITA CASON MR#: [id number] : 1990 Acct:[id number] Age/Sex: 34 / F ADM Date: 04/09/25 Loc: US Attending Dr: Paradise Olvera Ordering Physician: Paradise Olvera Date of Service: 04/09/25 Procedure(s): US OB anatomy Accession Number(s): [id number] cc: Paradise Olvera; ROMEO GAR [place] [id number] Patient Name: CARMELITA CASON MRN: [facility]:[id number] date: 1990 Sex: F Assigned Patient Location: US Current Patient Location: US Accession/Order Number: [id number] Exam Date: 04/09/2025 12:20 Report Date: 04/09/2025 [...] all 4 extremities were surveyed by the is technician. No abnormalities were detected. The stomach, [...] Zelaya M.D. 04/09/2025 1:01 PM Dictation Location: [place] [address] Electronically authenticated by: [id number] Y Date: 04/09/2025 13:01 Dictated By: Raine Zelaya M.D. Signed By: 04/09/25 1304 DD/ 1301 TD/TT: Sleeve Separator: [facility] [place] [address] Ultrasound Report Signed Patient: CARMELITA CASON MR#: [id number] : 1990 Acct:[id number] Age/Sex: 34 / F ADM Date: 04/09/25 Loc: US Attending Dr: Paradise Olvera Ordering Physician: Paradise Olvera Date of Service: 04/09/25 Procedure(s): US OB cervical length Accession Number(s): [id number] cc: Paradise Olvera; ROMEO GAR [address] [address] Patient Name: CARMELITA CASON MRN: [id number]:[id number] date: 1990 Sex: F Assigned Patient Location: US Current Patient Location: US Accession/Order Number: [id number] Exam Date: 04/09/2025 12:20 Report Date: 04/09/2025 [...] all 4 extremities were surveyed by the is technician. No abnormalities were detected. The stomach, [...] Zelaya M.D. 04/09/2025 1:01 PM Dictation Location: [place] [address] Electronically authenticated by: [id number] Y Date: 04/09/2025 13:01 Dictated By: Raine Zelaya M.D. Signed By: 04/09/25 1304 DD/ 1301 TD/TT: Sleeve Separator: [facility] Radiology, Radiologist, MD - 04/09/2025 [place] [address] Ultrasound Report Signed Patient: CARMELITA CASON MR#: [id number] : 1990 Acct:[id number] Age/Sex: 34 / F ADM Date: 04/09/25 Loc: US Attending Dr: Paradise Olvera Ordering Physician: Paradise Olvera Date of Service: 04/09/25 Procedure(s): US OB cervical length Accession Number(s): [id number] cc: Paradise Olvera; ROMEO GAR [place] [address] Patient Name: CARMELITA CASON MRN: [facility]:[id number] date: 1990 Sex: F Assigned Patient Location: US Current Patient Location: US Accession/Order Number: [id number] Exam Date: 04/09/2025 12:20 Report Date: 04/09/2025 [...] all 4 extremities were surveyed by the is technician. No abnormalities were detected. The stomach, [...] Zelaya M.D. 04/09/2025 1:01 PM Dictation Location: [place] [address] Electronically authenticated by: [id number] Y Date: 04/09/2025 13:01 Dictated By: Raine Zelaya M.D. Signed By: 04/09/25 1304 DD/ 1301 TD/TT: Sleeve Separator: [facility] HCG ( test) Ql (U)O rdered By: Arabella Hill on 04-06-2025 Interpretation and review of laboratory results Abnormal [facility] Preg Test, Ur Positive Negative [facility] Urinalysis macro (dipstick) panel (U)on 04-06-2025 Bilirubin, UA Negative Negative - 4(70) +++ mg/dL [facility] Blood, UA Negative Negative - 50 Amador/mcL [facility] Clarity, UA Clear [facility] Color, UA Yellow [facility] Glucose, UA Negative Negative - 2000(110) ++++ mg/dL [facility] Interpretation and review of laboratory results Normal [facility] Ketones, UA Negative Negative - 160(16) ++++ mg/dL [facility] Leukocytes, UA Negative Negative - 500+++ Camille/mcL [facility] Nitrite, UA Negative Negative - Positive [facility] pH, UA 6.5 5 - 9 [facility] Protein, UA Negative Negative - 2000(20) ++++ mg/dL [facility] Spec Grav, UA 1.02 1 - 1.03 [facility] Urobilinogen, UA 1.0 0.2 - 12 mg/dL [facility] US OB L= 14 [place] [address] Ultrasound Report Signed Patient: CARMELITA CASON MR#: [id number] : 1990 Acct:[id number] Age/Sex: 34 / F ADM Date: 01/22/25 Loc: US Attending Dr: Mee Pringle D.O. Ordering Physician: Mee Pringle D.O. Date of Service: 01/22/25 Procedure(s): US OB <= 14 weeks fetus Accession Number(s): [id number] cc: ROMEO GAR ; Mee Pringle D.O. The [place] [id number] Patient Name: CARMELITA CASON MRN: [facility]:[id number] date: 1990 Sex: F Assigned Patient Location: US Current Patient Location: US Accession/Order Number: [id number] Exam Date: 01/22/2025 14:49 Report Date: 01/22/2025 [...] Sorto Jr., D.O.01/22/2025 2:50 PM Dictation Location: [place] [address] Electronically authenticated by: [id number] Y Date: 01/22/2025 14:50 Dictated By: Serafin Sorto M.D. Signed By: 01/22/25 1453 DD/ 1450 TD/TT: Sleeve Separator: [facility] Radiology, Radiologist, MD - 01/22/2025 [place] [address] Ultrasound Report Signed Patient: CARMELITA CASON MR#: [id number] : 1990 Acct:[id number] Age/Sex: 34 / F ADM Date: 01/22/25 Loc: US Attending Dr: Mee Pringle D.O. Ordering Physician: Mee Pringle D.O. Date of Service: 01/22/25 Procedure(s): US OB <= 14 weeks fetus Accession Number(s): [id number] cc: ROMEO GAR ; Mee Pringle D.O. [place] [id number] Patient Name: CARMELITA CASON MRN: [facility]:[id number] date: 1990 Sex: F Assigned Patient Location: US Current Patient Location: US Accession/Order Number: [id number] Exam Date: 01/22/2025 14:49 Report Date: 01/22/2025 [...] Sorto Jr., D.O.01/22/2025 2:50 PM Dictation Location: [place] [address] Electronically authenticated by: [id number] Y Date: 01/22/2025 14:50 Dictated By: Serafin Sorto M.D. Signed By: 01/22/25 1453 DD/ 1450 TD/TT: Sleeve Separator: [facility] Radiology Study observation (narrative) [facility] US OB L= 14 WEEKS FETUSOrder ed By: Radiologist Radiology on 01-22-2025 [facility] Work Phone: [facility] PREG QUANT HCGon 025 HCG QUANTITATIVE 3026 mIU/mL [facility] Comment on above: 5-50 0.2-1 WEEK 50-500 1-2 WEEKS 100-5,000 2-3 WEEKS 500-10,000 3-4 WEEKS 1,000-50,000 4-5 WEEKS 10,000-100,000 5-6 WEEKS 15,000-200,000 6-8 WEEKS 10,000-100,000 2-3 MONTHS [facility] COMPLIANCE DRUG SCREENon PDF . Normal [facility] Comment on above: Performed By: #### D WAOAL #### [facility] [address] [place] [address] [address] Roberto Parmar Summary FINAL Normal [facility] Comment on above: Result Comment: ===== TOXASSURE [...] is an expected metabolite of dextromethorphan, an ozoc-ugl-uznfjzn or prescription cough suppressant. Levorphanol is a scheduled prescription medication. Dextrorphan cannot be distinguished from levorphanol by the method used for analysis. Guaifenesin PRESENT UNEXPECTED Guaifenesin may be administered as an vtai-pqj-hzzrfxp or prescription drug; it may also be [...] ===== Performed By: #### D SDOALC #### [facility] [address] [place] [address] Dr. Roberto Parmar URIC ACID [facility] 09-03 Uric Acid, Urine 12.4 mg/dL Normal Not Estab. [facility] Comment on above: Performed By: #### U RICUR #### [facility] [address] [place] [address] Dr. Roberto Parmar DRUG SCREEN RAPID (URINE)on 09-02-2022 AMP Negative Normal NEGATIVE [facility] Comment on above: Performed By: #### D RUGRPD #### [facility] [address] [place] [address] Dr. Roberto Parmar BAR Negative Normal NEGATIVE [facility] Comment on above: Performed By: #### D RUGRPD #### [facility] [address] [place] [address] Dr. Roberto Parmar BUP Positive Abnormal NEGATIVE [facility] Comment on above: Performed By: #### D RUGRPD #### [facility] [address] [place] [address] Dr. Roberto Parmar BZO Positive Abnormal NEGATIVE [facility] Comment on above: Performed By: #### D RUGRPD #### [facility] [address] [place] [address] Dr. Roberto Parmar BRITTANY Negative Normal NEGATIVE [facility] Comment on above: Performed By: #### D RUGRPD #### [facility] [address] [place] [address] Dr. Roberto Parmar CUT-OFFS SEE BELOW Normal [facility] Comment on above: Result Comment: AMP (Amphetamine): 500ng/mL, BAR (Barbituates): 200 ng/mL, BZO (Benzodiazepines): 150 ng/mL, BUP (Buprenorphine): 10 ng/mL, BRITTANY (Cocaine): 150 ng/mL, mAMP (Methamphetamine): 500 ng/mL, MTD (Methadone): 200 ng/mL, OPI (Opiates): 100 ng/mL, OXY (Oxycodone): 100 ng/mL, PCP (Phencyclidine): 25 ng/mL, PPX (Propoxyphene): 300 ng/mL, THC (Cannabinoids): 50 ng/mL, TCA (Trycyclic Antidepressants): 300 ng/mL Performed By: #### D RUGRPD #### [facility] [address] [address] [address] Roberto Parmar DRUG CUT HEADER DRUG CLASS TEST SYSTEM CUT-OFF CONCENTRATIONS ARE FOLLOWS: Normal [facility] Comment on above: Performed By: #### D RUGRPD #### [facility] [address] [address] [address] Roberto Parmar mAMP Negative Normal NEGATIVE [facility] Comment on above: Performed By: #### D RUGRPD #### [facility] [address] [address] [address] Roberto Parmar MTD Negative Normal NEGATIVE [facility] Comment on above: Performed By: #### D RUGRPD #### [facility] [address] [place] [address] Dr. Roberto Parmar OPI Negative Normal NEGATIVE [facility] Comment on above: Performed By: #### D RUGRPD #### [facility] [address] [place] [address] Dr. Roberto Parmar OXY Negative Normal NEGATIVE [facility] Comment on above: Performed By: #### D RUGRPD #### [facility] [address] [address] [address] Roberto Parmar PCP Negative Normal NEGATIVE [facility] Comment on above: Performed By: #### D RUGRPD #### [facility] [address] [place] [address] Dr. Roberto Parmar PPX Negative Normal NEGATIVE [facility] Comment on above: Performed By: #### D RUGRPD #### [facility] [address] [address] [address] Roberto Parmar TCA Negative Normal NEGATIVE [facility] Comment on above: Performed By: #### D RUGRPD #### [facility] [address] [address] [address] Roberto Parmar THC Negative Normal NEGATIVE [facility] Comment on above: Performed By: #### D RUGRPD #### [facility] [address] [place] [address] Dr. Roberto Parmar US PELVIS AND TRANSVAGon [...] MAYUR ALLEN Date: 2022-07-13 07:21 Normal [facility] PAP ACOG PANEL 2: 21 to 31on 06-18-2022 . . Normal [facility] Comment on above: Performed By: #### [id number] #### [facility] [address] [place] [address] Dr. Roberto Parmar Age Gdln ACOG Testing 21-29 Normal [facility] Comment on above: Performed By: #### [id number] #### [facility] [address] [place] [address] Dr. Roberto Parmar DIAGNOSIS: Comment Normal [facility] Comment on above: Result Comment: NEGA TIVE FOR INTRAEPITHELIAL LESION OR MALIGNANCY. Performed By: #### [id number] #### [facility] [address] [place] [address] Dr. Roberto Parmar Methodology: Comment Normal [facility] Comment on above: Result Comment: This liquid based ThinPrep(R) pap test was screened with the use of an image guided system. Performed By: #### [id number] #### [facility] [address] [place] [address] Dr. Roberto Parmar Note: Comment Normal [facility] Comment on above: Result Comment: The Pap smear is a screening test designed to aid in the detection of premalignant and malignant conditions of the uterine cervix. It is not a diagnostic procedure and should not be used as the sole means of detecting cervical cancer. Both false-positive and false-negative reports do occur. . Performed By: #### [id number] #### [facility] [address] [place] [address] Dr. Roberto Parmar Performed by: Comment Normal [facility] Comment on above: Result Comment: Kishore De Dios Senior Medical Transcriptionist (ASCP) Performed By: #### [id number] #### [facility] [address] [place] [address] Dr. Roberto Parmar Reflex Criteria: Comment Normal [facility] Comment on above: Result Comment: The HPV DNA reflex criteria were not met with this specimen result therefore, no HPV testing was performed. . Performed By: #### 4 [id number] #### [facility] [address] [place] [address] Dr. Roberto Parmar Specimen adequacy: Comment Normal [facility] Comment on above: Result Comment: Sati sfactory for evaluation. Endocervical and/or squamous metaplastic cells (endocervical component) are present. Performed By: #### 4 [id number] #### [facility] [address] [place] [address] Dr. Roberto Parmar CBCon 12-06-2020 Erythrocyte distribution width (RBC) [Ratio] 13.6 % Normal 11.8-14.4 [facility] Comment on above: Performed By: #### P HEP, HIVCMB #### [facility] [address] [place], [place] [id number] Explosion Welder: Alvino Davila MD #### CP, CBC, HCG #### [facility] [address] [place] [address] Explosion Welder: Luis A Peng MD Hematocrit (Bld) [Volume fraction] 44.1 % Normal 36.3-47.1 [facility] Comment on above: Performed By: #### P HEP, HIVCMB #### [address] [id number] Explosion Welder: Alvino Davila MD #### CP, CBC, HCG #### [address] [place] [id number] Explosion Welder: Luis A Peng MD Hemoglobin (Bld) [Mass/Vol] 14.1 g/dL Normal 11.9-15.1 [facility] Comment on above: Performed By: #### P HEP, HIVCMB #### [address] [id number] Explosion Welder: Alvino Davila MD #### CP, CBC, HCG #### [address] [place] [id number] Explosion Welder: Luis A Peng MD MCH (RBC) [Entitic mass] 25.4 pg Normal 25.2-33.5 [facility] Comment on above: Performed By: #### P HEP, HIVCMB #### [address] [id number] Explosion Welder: Alvino Davila MD #### CP, CBC, HCG #### [address] [place] [id number] Explosion Welder: Luis A Peng MD MCHC (RBC) [Mass/Vol] 32.0 g/dL Normal 28.4-34.8 [facility] Comment on above: Performed By: #### P HEP, HIVCMB #### [address] [id number] Explosion Welder: Alvino Davila MD #### CP, CBC, HCG #### [address] [place] [id number] Explosion Welder: Luis A Peng MD MCV (RBC) [Entitic vol] 79.5 fL Low 82.6-102.9 [facility] Comment on above: Performed By: #### P HEP, HIVCMB #### [address] [id number] Explosion Welder: Alvino Davila MD #### CP, CBC, HCG #### [address] [place] [id number] Explosion Welder: Luis A Peng MD NRBC Automated 0.0 per [address] [facility] Comment on above: Performed By: #### P HEP, HIVCMB #### [address] [id number] Explosion Welder: Alvino Davila MD #### CP, CBC, HCG #### [address] [place] [id number] Explosion Welder: Luis A Peng MD Platelet mean volume (Bld) [Entitic vol] 11.8 fL Normal 8.1-13.5 [facility] Comment on above: Performed By: #### P HEP, HIVCMB #### [address] [address] Explosion Welder: Alvino Davila MD #### CP, CBC, HCG #### [address] [place] [id number] Explosion Welder: Luis A Peng MD Platelets (Bld) [#/Vol] 238 10*3/uL Normal 138-453 [facility] Comment on above: Performed By: #### P HEP, HIVCMB #### [address] [address] Explosion Welder: Alvino Davila MD #### CP, CBC, HCG #### [address] [place] [phone] Explosion Welder: Luis A Peng MD RBC (Bld) [#/Vol] 5.55 10*6/uL High 3.95-5.11 [facility] Comment on above: Performed By: #### P HEP, HIVCMB #### [facility] [address] [place], [place] [id number] Explosion Welder: Alvino Davila MD #### CP, CBC, HCG #### [facility] [address] [place] [address] [place] [address] Explosion Welder: Luis A Peng MD WBC (Bld) [#/Vol] 8.6 10*3/uL Normal 3.5-11.3 [facility] Comment on above: Performed By: #### P HEP, HIVCMB #### [address] [place], [place] [id number] Explosion Welder: Alvino Davila MD #### LAURA, CBC, HCG #### [address] [place] [address] Explosion Welder: Luis A Peng MD Erythrocyte distribution width (RBC) [Ratio] 13.6 % 11.8 - 14.4 % [place] Hematocrit (Bld) [Volume fraction] 44.1 % 36.3 - 47.1 % [place] Hemoglobin (Bld) [Mass/Vol] 14.1 g/dL 11.9 - 15.1 g/dL [place] Interpretation and review of laboratory results Abnormal [place] MCH (RBC) [Entitic mass] 25.4 pg 25.2 - 33.5 pg [place] MCHC (RBC) [Mass/Vol] 32.0 g/dL 28.4 - 34.8 g/dL [place] MCV (RBC) [Entitic vol] 79.5 fL Low 82.6 - 102.9 fL [place] Platelet mean volume (Bld) [Entitic vol] 11.8 fL 8.1 - 13.5 fL [place] Platelets (Bld) [#/Vol] 238 10*3/uL [place] RBC (Bld) [#/Vol] 5.55 10*6/uL High 3.95 - 5.1 1 m/uL [place] WBC (Bld) [#/Vol] 8.6 10*3/uL [place] WBC (Bld) [#/Vol] 0.0 10*3/uL 0.0 per 100 WBC M [place], [place] Comp Metabolic Profon 2020 (cont.) Normal [facility] Comment on above: Result Comment: Aver age GFR for 20-29 years old: 116 mL/min/1.73sq m Chronic Kidney Disease: <60 mL/min/1.73sq m Kidney failure: <15 mL/min/1.73sq m eGFR calculated using average adult body mass. Additional eGFR calculator available at: http://www.[employer]/multiple_crcl_2011.htm Performed By: #### P HEP, HIVCMB #### [facility] [place], [place] [id number] Explosion Welder: Alvino Davila MD #### CP, CBC, HCG #### [facility] [address] [place] [address] [place] [address] Explosion Welder: Luis A Peng MD Albumin [Mass/Vol] 4.6 g/dL Normal 3.5-5.2 [facility] Comment on above: Performed By: #### P HEP, HIVCMB #### [facility] [address] [place], [place] [id number] Explosion Welder: Alvino Davila MD #### CP, CBC, HCG #### [facility] [address] [place] [address] [place] [address] Explosion Welder: Luis A Peng MD Albumin/Globulin [Mass ratio] 1.6 {ratio} Normal 1.0-2.5 [facility] Comment on above: Performed By: #### P HEP, HIVCMB #### [facility] [address] [place] [address] Explosion Welder: Alvino Davila MD #### CP, CBC, HCG #### [address] [place] [address] Explosion Welder: Luis A Peng MD Alkaline Phos 81 U/L Normal 35-104 [facility] Comment on above: Performed By: #### P HEP, HIVCMB #### [address] [address] Explosion Welder: Alvino Davila MD #### CP, CBC, HCG #### [address] [place] [address] Explosion Welder: Luis A Peng MD ALT [Catalytic activity/Vol] 39 U/L High 5-33 [facility] Comment on above: Performed By: #### P HEP, HIVCMB #### [address] [address] Explosion Welder: Alvino Davila MD #### CP, CBC, HCG #### [address] [place] [address] Explosion Welder: Luis A Peng MD Anion gap [Moles/Vol] 12 mmol/L Normal 9-17 [facility] Comment on above: Performed By: #### P HEP, HIVCMB #### [address] [address] Explosion Welder: Alvino Davila MD #### CP, CBC, HCG #### [address] [place] [address] Explosion Welder: Luis A Peng MD AST [Catalytic activity/Vol] 28 U/L Normal <32 [facility] Comment on above: Performed By: #### P HEP, HIVCMB #### [address] [address] Explosion Welder: Alvino Davila MD #### CP, CBC, HCG #### [facility] [address] [place] [address] Dr. [place] [id number] Explosion Welder: Luis A Peng MD Bilirubin Ql (U) 0.26 mg/dL Low 0.3-1.2 [facility] Comment on above: Performed By: #### P HEP, HIVCMB #### [address] [id number] Explosion Welder: Alvino Davila MD #### CP, CBC, HCG #### [address] [place], [place] [id number] Explosion Welder: Luis A Peng MD BUN/CRE Ratio 14 Normal 9-20 [facility] Comment on above: Performed By: #### P HEP, HIVCMB #### [address] [address] Explosion Welder: Alvino Davila MD #### CP, CBC, HCG #### [address] [place], [place] [id number] Explosion Welder: Luis A Peng MD Calcium [Mass/Vol] 10.1 mg/dL Normal 8.6-10.4 [facility] Comment on above: Performed By: #### P HEP, HIVCMB #### [address] [address] Explosion Welder: Alvino Davila MD #### CP, CBC, HCG #### [address] [place], [place] 8015983 Explosion Welder: Luis A Peng MD Chloride [Moles/Vol] 101 mmol/L Normal 98-107 [facility] Comment on above: Performed By: #### P HEP, HIVCMB #### [address] [address] Explosion Welder: Alvino Davila MD #### CP, CBC, HCG #### [address] [place], [place] [id number] Explosion Welder: Luis A Peng MD CO2 [Moles/Vol] 26 mmol/L Normal 20-31 [facility] Comment on above: Performed By: #### P HEP, HIVCMB #### [address] [address] Explosion Welder: Alvino Davila MD #### CP, CBC, HCG #### [address] [place], [place] [phone] Explosion Welder: Luis A Peng MD Creatinine [Mass/Vol] 0.49 mg/dL Low 0.50-0.90 [facility] Comment on above: Performed By: #### P HEP, HIVCMB #### [address] [id number] Explosion Welder: Alvino Davila MD #### CP, CBC, HCG #### [address] [place], [place] [id number] Explosion Welder: Luis A Peng MD GFR, Amer >60 Normal >60 [facility] Comment on above: Performed By: #### P HEP, HIVCMB #### [address] [address] Explosion Welder: Alvino Davila MD #### CP, CBC, HCG #### [address] [place], [place] 0695383 Explosion Welder: Luis A Peng MD GFR,non Amer >60 Normal >60 [facility] Comment on above: Performed By: #### P HEP, HIVCMB #### [address] [address] Explosion Welder: Alvino Davila MD #### CP, CBC, HCG #### [address] [place], [place] [phone] Explosion Welder: Luis A Peng MD Glucose [Mass/Vol] 101 mg/dL High 70-99 [facility] Comment on above: Performed By: #### P HEP, HIVCMB #### [address] [address] Explosion Welder: Alvino Davila MD #### CP, CBC, HCG #### [facility] [address] [place] [address] Dr. [place] [phone] Explosion Welder: Luis A Peng MD Potassium [Moles/Vol] 4.2 mmol/L Normal 3.7-5.3 [facility] Comment on above: Performed By: #### P HEP, HIVCMB #### [address] [address] Explosion Welder: Alvino Davila MD #### CP, CBC, HCG #### [address] [place] [phone] Explosion Welder: Luis A Peng MD Protein [Mass/Vol] 7.5 g/dL Normal 6.4-8.3 [facility] Comment on above: Performed By: #### P HEP, HIVCMB #### [address] [address] Explosion Welder: Alvino Davila MD #### CP, CBC, HCG #### [address] [place] [phone] Explosion Welder: Luis A Peng MD Sodium [Moles/Vol] 139 mmol/L Normal 135-144 [facility] Comment on above: Performed By: #### P HEP, HIVCMB #### [address] [address] Explosion Welder: Alvino Davila MD #### CP, CBC, HCG #### [address] [place] [address] Explosion Welder: Luis A Peng MD Staging: Normal [facility] Comment on above: Result Comment: Stag e 1: Some kidney damage normal GFR Stage 2: Mild kidney damage GFR 60-89 Stage 3: Moderate kidney damage GFR 30-59 Stage 4: Severe kidney damage GFR 15-29 Stage 5: Severe kidney damage GFR <15 ESRD - chronic treatment by dialysis or transplant Performed By: #### P HEP, HIVCMB #### [facility] [address] [place], [place] 728[address] Explosion Welder: Alvino Davila MD #### CP, CBC, HCG #### [facility] [address] [place] [address] Explosion Welder: Luis A Peng MD Urea nitrogen [Mass/Vol] 7 mg/dL Normal 6-20 [facility] Comment on above: Performed By: #### P HEP, HIVCMB #### [facility] [address] [place], [place] [id number] Explosion Welder: Alvino Davila MD #### CP, CBC, HCG #### [facility] [address] [place] [address] Explosion Welder: Luis A Peng MD [facility] Metabolic Pane [facility] 12-06-2020 Albumin [Mass/Vol] 4.6 g/dL 3.5 - 5.2 g/dL [place], [place] Albumin/Globulin [Mass ratio] 1.6 {ratio} [place] ALP [Catalytic activity/Vol] 81 U/L 35 - 104 U/L [place] ALT [Catalytic activity/Vol] 39 U/L High 5 - 33 U/L [place] Anion gap [Moles/Vol] 12 mmol/L 9 - 17 mmol/L [place] AST [Catalytic activity/Vol] 28 U/L <32 [place] Bilirubin Ql (U) 0.26 mg/dL Low 0.3 - 1.2 mg/dL [place], [place] Bun/Cre Ratio 14 [place] Calcium [Mass/Vol] 10.1 mg/dL 8.6 - 10. 4 mg/dL [place] Chloride [Moles/Vol] 101 mmol/L 98 - 107 mmol/L [place] CO2 [Moles/Vol] 26 mmol/L 20 - 31 mmol/L [place] Creatinine [Mass/Vol] 0.49 mg/dL Low 0.5 - 0.9 mg/d L [place] GFR >60 >60 mL/min [place], [place] GFR Non- >60 >60 mL/min [place] Glucose [Mass/Vol] 101 mg/dL High 70 - 99 mg/dL [place] Interpretation and review of laboratory results Abnormal [place] Potassium [Moles/Vol] 4.2 mmol/L 3.7 - 5.3 mmol/L [place] Protein [Mass/Vol] 7.5 g/dL 6.4 - 8.3 g/dL [place], [place] Sodium [Moles/Vol] 139 mmol/L 135 - 144 mmol/L [place] Urea nitrogen [Mass/Vol] 7 mg/dL 6 - 20 mg/dL [place] HCG Qualitative, Serumon hCG Qual Negative NEGATIVE [place] Comment on above: Specimens with hCG l evels near the threshold of the test (25 mIU/mL) may give a negative or indeterminate result. In such cases, another test should be performed with a new specimen in 48-72 hours. If early is suspected clinically in this setting, correlation with quantitative serum b-hCG level is suggested. [facility] has confirmed the use of plasma for this test. This has not been cleared or approved by the U.S. Food and Drug Administration. The FDA has determined that such clearance is not necessary. HCG Screen, Bloodon 12-06-19 21 HCG Qn Negative Normal NEG [facility] Comment on above: Result Comment: Spec imens with hCG levels near the threshold of the test (25 mIU/mL) may give a negative or indeterminate result. In such cases, another test should be performed with a new specimen in 48-72 hours. If early is suspected clinically in this setting, correlation with quantitative serum b-hCG level is suggested. [facility] has confirmed the use of plasma for this test. This has not been cleared or approved by the U.S. Food and Drug Administration. The FDA has determined that such clearance is not necessary. Performed By: #### P HEP, HIVCMB #### [facility] [address] [place] [address] Explosion Welder: Alvino Davila MD #### CP, CBC, HCG #### [address] [place], [place] [phone] Explosion Welder: Luis A Peng MD HIV Ag/Abon 12-06-2020 HIV Ag/Ab NONREACTIVE Normal [facility] Comment on above: Result Comment: No l aboratory evidence of HIV infection. If acute HIV infection is suspected, consider testing for HIV-1 RNA. Performed By: #### P HEP, HIVCMB #### [address] [address] Explosion Welder: Alvino Davila MD #### CP, CBC, HCG #### [address] [place] [address] Explosion Welder: Luis A Peng MD HIV Screenon 12-06-2020 HIV Ag/Ab NONREACTIVE NONREACTIVE [place] Comment on above: No laboratory eviden ce of HIV infection. If acute HIV infection is suspected, consider testing for HIV-1 RNA. Hepatitis Acute [facility] 12-06 Hep A Ab,IgM NONREACTIVE Normal NR [facility] Comment on above: Performed By: #### P HEP, HIVCMB #### [address] [place] [address] Explosion Welder: Alvino Davila MD #### CP, CBC, HCG #### [address] [place] [address] Explosion Welder: Luis A Peng MD Hep B Core Ab,IgM NONREACTIVE Normal [facility] Comment on above: Performed By: #### P HEP, HIVCMB #### [address] [place] [address] Explosion Welder: Alvino Davila MD #### CP, CBC, HCG #### [address] [place], [place] [id number] Explosion Welder: Luis A Peng MD Hep B Surf Ag NONREACTIVE Normal [facility] Comment on above: Performed By: #### P HEP, HIVCMB #### [address] [address] Explosion Welder: Alvino Davila MD #### CP, CBC, HCG #### [address] [place] [address] Explosion Welder: Luis A Peng MD Hep C Ab REACTIVE Abnormal [facility] Comment [...] Performed By: #### P HEP, HIVCMB #### [address] [address] Explosion Welder: Alvino Davila MD #### CP, CBC, HCG #### [address] [place] [address] Explosion Welder: Luis A Peng MD Hepatitis Panel, [facility] HAV IgM IA Qn (S) NONREACTIVE NONREACTIVE [place] Hep B Core Ab, IgM NONREACTIVE NONREACTIVE [place] Hepatitis B Surface Ag NONREACTIVE NONREACTIVE [place] Hepatitis C Ab REACTIVE Abnormal NONREACTIVE [place] Comment on above: The hepatitis C [...] Interpretation and review of laboratory results Abnormal [place] Metabolic Panelon 12-06-2020 GFR/1.73 sq M predicted among non-blacks MDRD (S/P/Bld) [Vol rate/Area] [place] Comment on above: Stage 1: Some [...] body mass. Additional eGFR calculator available at: http://www.[employer]/multiple_crcl_2012.htm CBCon 05-30-2020 Erythrocyte distribution width (RBC) [Ratio] 12.7 % Normal 11.8-14.4 [facility] Comment on above: Performed By: #### C P, HCG, CBC #### [facility] [address] [place] [address] [place] [address] Explosion Welder: Luis A Peng MD #### HIVCMB, PHEP #### [facility] [place], [place] [phone] Explosion Welder: Alvino Davila MD Hematocrit (Bld) [Volume fraction] 39.2 % Normal 36.3-47.1 [facility] Comment on above: Performed By: #### C P, HCG, CBC #### [facility] [address] [place] [address] [place] [address] Explosion Welder: Luis A Peng MD #### HIVCMCody, PHEP #### [facility] [place], [place] [id number] Explosion Welder: Alvino Davila MD Hemoglobin (Bld) [Mass/Vol] 12.3 g/dL Normal 11.9-15.1 [facility] Comment on above: Performed By: #### C P, HCG, CBC #### [facility] [address] [place] [address] [address] [place] [phone] Explosion Welder: Luis A Peng MD #### HIVCMB, PHEP #### [address] [place], [place] [id number] Explosion Welder: Alvino Davila MD MCH (RBC) [Entitic mass] 26.2 pg Normal 25.2-33.5 [facility] Comment on above: Performed By: #### C P, HCG, CBC #### [address] [place] [phone] Explosion Welder: Luis A Peng MD #### HIVCMB, PHEP #### [address] [place], [place] [phone] Explosion Welder: Alvino Davila MD MCHC (RBC) [Mass/Vol] 31.4 g/dL Normal 28.4-34.8 [facility] Comment on above: Performed By: #### C P, HCG, CBC #### [address] [place] [phone] Explosion Welder: Luis A Peng MD #### HIVCMB, PHEP #### [address] [place], [place] [phone] Explosion Welder: Alvino Davila MD MCV (RBC) [Entitic vol] 83.6 fL Normal 82.6-102.9 [facility] Comment on above: Performed By: #### C P, HCG, CBC #### [facility] [address] [place] [address] Dr. [place] [phone] Explosion Welder: Luis A Peng MD #### HIVCMB, PHEP #### [address] [place], [place] [phone] Explosion Welder: Alvino Davila MD NRBC Automated 0.0 per [address] [facility] Comment on above: Performed By: #### C P, HCG, CBC #### [facility] [address] [place] [address] Dr. [place] [phone] Explosion Welder: Luis A Peng MD #### HIVCMB, PHEP #### [address] [id number] Explosion Welder: Alvino Davila MD Platelet mean volume (Bld) [Entitic vol] 10.9 fL Normal 8.1-13.5 [facility] Comment on above: Performed By: #### C P, HCG, CBC #### [address] [place] [phone] Explosion Welder: Luis A Peng MD #### HIVCMB, PHEP #### [address] [phone] Explosion Welder: Alvino Davila MD Platelets (Bld) [#/Vol] 277 10*3/uL Normal 138-453 [facility] Comment on above: Performed By: #### C P, HCG, CBC #### [address] [place] [phone] Explosion Welder: Luis A Peng MD #### HIVCMB, PHEP #### [address] [phone] Explosion Welder: Alvino Davila MD RBC (Bld) [#/Vol] 4.69 10*6/uL Normal 3.95-5.11 [facility] Comment on above: Performed By: #### C P, HCG, CBC #### [address] [place] [address] Explosion Welder: Luis A Peng MD #### HIVCMB, PHEP #### [facility] [address] [place], [place] [phone] Explosion Welder: Alvino Davila MD WBC (Bld) [#/Vol] 5.5 10*3/uL Normal 3.5-11.3 [facility] Comment on above: Performed By: #### C P, HCG, CBC #### [facility] [address] [place] [address] Explosion Welder: Luis A Peng MD #### HIVCMB, PHEP #### [facility] [address] [place], [place] [phone] Explosion Welder: Alvino Davila MD Erythrocyte distribution width (RBC) [Ratio] 12.7 % 11.8 - 14.4 % [place] Hematocrit (Bld) [Volume fraction] 39.2 % 36.3 - 47.1 % [place] Hemoglobin (Bld) [Mass/Vol] 12.3 g/dL 11.9 - 15.1 g/dL [place] MCH (RBC) [Entitic mass] 26.2 pg 25.2 - 33.5 pg [place] MCHC (RBC) [Mass/Vol] 31.4 g/dL 28.4 - 34.8 g/dL [place] MCV (RBC) [Entitic vol] 83.6 fL 82.6 - 102.9 fL [place] Platelet mean volume (Bld) [Entitic vol] 10.9 fL 8.1 - 13.5 fL [place] Platelets (Bld) [#/Vol] 277 10*3/uL [place] RBC (Bld) [#/Vol] 4.69 10*6/uL 3.95 - 5.1 1 m/uL [place] WBC (Bld) [#/Vol] 5.5 10*3/uL [place] WBC (Bld) [#/Vol] 0.0 10*3/uL 0.0 per 100 WBC [facility] [place] [place] Comp Metabolic Profon 2019 (cont.) Normal [facility] Comment on above: Result Comment: Aver age GFR for 20-29 years old: 116 mL/min/1.73sq m Chronic Kidney Disease: <60 mL/min/1.73sq m Kidney failure: <15 mL/min/1.73sq m eGFR calculated using average adult body mass. Additional eGFR calculator available at: http://www.[employer]/multiple_crcl_2011.htm Performed By: #### C P, HCG, CBC #### [facility] [address] [place] [place] [address] Explosion Welder: Luis A Peng MD #### HIVCMB, PHEP #### [address] [id number] Explosion Welder: Alvino Davila MD Albumin [Mass/Vol] 3.4 g/dL Low 3.5-5.2 [facility] Comment on above: Performed By: #### C P, HCG, CBC #### [facility] [address] [place] [address] Explosion Welder: Luis A Peng MD #### HIVCMB, PHEP #### [address] [id number] Explosion Welder: Alvino Davila MD Albumin/Globulin [Mass ratio] 1.1 {ratio} Normal 1.0-2.5 [facility] Comment on above: Performed By: #### C P, HCG, CBC #### [facility] [address] [place] [address] Explosion Welder: Luis A Peng MD #### HIVCMB, PHEP #### [address] [phone] Explosion Welder: Alvino Davila MD Alkaline Phos 130 U/L High 35-104 [facility] Comment on above: Performed By: #### C P, HCG, CBC #### [address] [place], [place] [phone] Explosion Welder: Luis A Peng MD #### HIVCMB, PHEP #### [address] [phone] Explosion Welder: Alvino Davila MD ALT [Catalytic activity/Vol] 33 U/L Normal 5-33 [facility] Comment on above: Performed By: #### C P, HCG, CBC #### [address] [place], [place] [phone] Explosion Welder: Luis A Peng MD #### HIVCMB, PHEP #### [address] [phone] Explosion Welder: Alvino Davila MD Anion gap [Moles/Vol] 7 mmol/L Low 9-17 [facility] Comment on above: Performed By: #### C P, HCG, CBC #### [address] [place] [phone] Explosion Welder: Luis A Peng MD #### HIVCMB, PHEP #### [address] [phone] Explosion Welder: Alvino Davila MD AST [Catalytic activity/Vol] 35 U/L High <32 [facility] Comment on above: Performed By: #### C P, HCG, CBC #### [address] [place] [phone] Explosion Welder: Luis A Peng MD #### HIVCMB, PHEP #### [address] [address] Explosion Welder: Alvino Davila MD Bilirubin Ql (U) 0.16 mg/dL Low 0.3-1.2 [facility] Comment on above: Performed By: #### C P, HCG, CBC #### [address] [place] [phone] Explosion Welder: Luis A Peng MD #### HIVCMB, PHEP #### [address] [phone] Explosion Welder: Alvino Davila MD BUN/CRE Ratio 14 Normal 9-20 [facility] Comment on above: Performed By: #### C P, HCG, CBC #### [address] [place] [phone] Explosion Welder: Luis A Peng MD #### HIVCMB, PHEP #### [address] [address] Explosion Welder: Alvino Davila MD Calcium [Mass/Vol] 9.2 mg/dL Normal 8.6-10.4 [facility] Comment on above: Performed By: #### C P, HCG, CBC #### [address] [place] [phone] Explosion Welder: Luis A Peng MD #### HIVCMB, PHEP #### [address] [address] Explosion Welder: Alvino Davila MD Chloride [Moles/Vol] 99 mmol/L Normal 98-107 [facility] Comment on above: Performed By: #### C P, HCG, CBC #### [address] [place] [phone] Explosion Welder: Luis A Peng MD #### HIVCMB, PHEP #### [address] [address] Explosion Welder: Alvino Davila MD CO2 [Moles/Vol] 29 mmol/L Normal 20-31 [facility] Comment on above: Performed By: #### C P, HCG, CBC #### [address] [place] [phone] Explosion Welder: Luis A Peng MD #### HIVCMB, PHEP #### [address] [place], [place] 2458708 Explosion Welder: Alvino Davila MD Creatinine [Mass/Vol] 0.63 mg/dL Normal 0.50-0.90 [facility] Comment on above: Performed By: #### C P, HCG, CBC #### [facility] [address] [place], [place] [phone] Explosion Welder: Luis A Peng MD #### HIVCMB, PHEP #### [address] [phone] Explosion Welder: Alvino Davila MD GFR, Amer >60 Normal >60 [facility] Comment on above: Performed By: #### C P, HCG, CBC #### [facility] [address] [place] [address] Dr. [place], [place] [phone] Explosion Welder: Luis A Peng MD #### HIVCMB, PHEP #### [address] [phone] Explosion Welder: Alvino Davila MD GFR,non Amer >60 Normal >60 [facility] Comment on above: Performed By: #### C P, HCG, CBC #### [address] [place], [place] [phone] Explosion Welder: Luis A Peng MD #### HIVCMB, PHEP #### [address] [address] Explosion Welder: Alvino Davila MD Glucose [Mass/Vol] 95 mg/dL Normal 70-99 [facility] Comment on above: Performed By: #### C P, HCG, CBC #### [facility] [address] [place], [place] [phone] Explosion Welder: Luis A Peng MD #### HIVCMB, PHEP #### [address] [address] Explosion Welder: Alvino Davila MD Potassium [Moles/Vol] 4.3 mmol/L Normal 3.7-5.3 [facility] Comment on above: Performed By: #### C P, HCG, CBC #### [address] [place], [place] [phone] Explosion Welder: Luis A Peng MD #### HIVCMB, PHEP #### [address] [address] Explosion Welder: Alvino Davila MD Protein [Mass/Vol] 6.5 g/dL Normal 6.4-8.3 [facility] Comment on above: Performed By: #### C P, HCG, CBC #### [address] [place] [phone] Explosion Welder: Luis A Peng MD #### HIVCMB, PHEP #### [address] [address] Explosion Welder: Alvino Davila MD Sodium [Moles/Vol] 135 mmol/L Normal 135-144 [facility] Comment on above: Performed By: #### C P, HCG, CBC #### [address] [place], [place] [phone] Explosion Welder: Luis A Peng MD #### HIVCMB, PHEP #### [address] [phone] Explosion Welder: Alvino Davila MD Staging: Normal [facility] Comment on above: Result Comment: Stag e 1: Some kidney damage normal GFR Stage 2: Mild kidney damage GFR 60-89 Stage 3: Moderate kidney damage GFR 30-59 Stage 4: Severe kidney damage GFR 15-29 Stage 5: Severe kidney damage GFR <15 ESRD - chronic treatment by dialysis or transplant Performed By: #### C P, HCG, CBC #### [address] [place] [address] Explosion Welder: Luis A Peng MD #### HIVCMB, PHEP #### [facility] [address] [place], [place] [phone] Explosion Welder: Alvino Davila MD Urea nitrogen [Mass/Vol] 9 mg/dL Normal 6-20 [facility] Comment on above: Performed By: #### C P, HCG, CBC #### [facility] [address] [place] [place] [address] Explosion Welder: Luis A Peng MD #### HIVCMB, PHEP #### [facility] [address] [place] [address] Explosion Welder: Alvino Davila MD Comprehensive Metabolic Pane [facility] 05-30-2020 Albumin [Mass/Vol] 3.4 g/dL Low 3.5 - 5.2 g/dL [place], [place] Albumin/Globulin [Mass ratio] 1.1 {ratio} [place], [place] ALP [Catalytic activity/Vol] 130 U/L High 35 - 104 U/L [place] ALT [Catalytic activity/Vol] 33 U/L 5 - 33 U/L [place] Anion gap [Moles/Vol] 7 mmol/L Low 9 - 17 mmol/L [place] AST [Catalytic activity/Vol] 35 U/L High <32 [place] Bilirubin Ql (U) 0.16 mg/dL Low 0.3 - 1.2 mg/dL [place], [place] Bun/Cre Ratio 14 [place], [place] Calcium [Mass/Vol] 9.2 mg/dL 8.6 - 10. 4 mg/dL [place] Chloride [Moles/Vol] 99 mmol/L 98 - 107 mmol/L [place] CO2 [Moles/Vol] 29 mmol/L 20 - 31 mmol/L [place] Creatinine [Mass/Vol] 0.63 mg/dL 0.5 - 0.9 mg/d L [place] GFR >60 >60 mL/min [place] GFR Non- >60 >60 mL/min [place] Glucose [Mass/Vol] 95 mg/dL 70 - 99 mg/dL [place] Interpretation and review of laboratory results Abnormal [place] Potassium [Moles/Vol] 4.3 mmol/L 3.7 - 5.3 mmol/L [place] Protein [Mass/Vol] 6.5 g/dL 6.4 - 8.3 g/dL [place], [place] Sodium [Moles/Vol] 135 mmol/L 135 - 144 mmol/L [place] Urea nitrogen [Mass/Vol] 9 mg/dL 6 - 20 mg/dL [place] HCG Qualitative, Serumon hCG Qual Negative NEGATIVE [place] Comment on above: Specimens with hCG l evels near the threshold of the test (25 mIU/mL) may give a negative or indeterminate result. In such cases, another test should be performed with a new specimen in 48-72 hours. If early is suspected clinically in this setting, correlation with quantitative serum b-hCG level is suggested. [facility] has confirmed the use of plasma for this test. This has not been cleared or approved by the U.S. Food and Drug Administration. The FDA has determined that such clearance is not necessary. HCG Screen, Bloodon 05-30-20 20 HCG Qn Negative Normal NEG [facility] Comment on above: Result Comment: Spec imens with hCG levels near the threshold of the test (25 mIU/mL) may give a negative or indeterminate result. In such cases, another test should be performed with a new specimen in 48-72 hours. If early is suspected clinically in this setting, correlation with quantitative serum b-hCG level is suggested. [facility] has confirmed the use of plasma for this test. This has not been cleared or approved by the U.S. Food and Drug Administration. The FDA has determined that such clearance is not necessary. Performed By: #### C P, HCG, CBC #### [facility] [address] [place] [place] [address] Explosion Welder: Luis A Peng MD #### HIVCMB, PHEP #### [address] [place] [address] Explosion Welder: Alvino Davila MD HIV Ag/Abon 05-30-2020 HIV Ag/Ab NONREACTIVE Normal [facility] Comment on above: Result Comment: No l aboratory evidence of HIV infection. If acute HIV infection is suspected, consider testing for HIV-1 RNA. Performed By: #### C P, HCG, CBC #### [address] [place], [place] [phone] Explosion Welder: Luis A Peng MD #### HIVCMB, PHEP #### [address] [address] Explosion Welder: Alvino Davila MD HIV Screenon 05-30-2020 HIV Ag/Ab NONREACTIVE NONREACTIVE [place], [place] Comment on above: No laboratory eviden ce of HIV infection. If acute HIV infection is suspected, consider testing for HIV-1 RNA. Hepatitis Acute [facility] 05-30 Hep A Ab,IgM NONREACTIVE Normal NR [facility] Comment on above: Performed By: #### C P, HCG, CBC #### [address] [place], [place] [phone] Explosion Welder: Luis A Peng MD #### HIVCMB, PHEP #### [address] [place] [address] Explosion Welder: Alvino Davila MD Hep B Core Ab,IgM NONREACTIVE Normal [facility] Comment on above: Performed By: #### C P, HCG, CBC #### [address] [place], [place] [phone] Explosion Welder: Luis A Peng MD #### HIVCMB, PHEP #### [address] [place] [address] Explosion Welder: Alvino Davila MD Hep B Surf Ag NONREACTIVE Normal NR [facility] Comment on above: Performed By: #### C P, HCG, CBC #### [facility] [address] [place] [address] [place], [place] [phone] Explosion Welder: Luis A Peng MD #### HIVCMB, PHEP #### [address] [phone] Explosion Welder: Alvino Davila MD Hep C Ab NONREACTIVE Normal NR [facility] Comment on above: Result Comment: The [...] By: #### C P, HCG, CBC #### [address] [place] [phone] Explosion Welder: Luis A Peng MD #### HIVCMB, PHEP #### [address] [address] Explosion Welder: Alvino Davila MD Hepatitis Panel, Acuteon HAV IgM IA Qn (S) NONREACTIVE NONREACTIVE [place] Hep B Core Ab, IgM NONREACTIVE NONREACTIVE [place] Hepatitis B Surface Ag NONREACTIVE NONREACTIVE [place] Hepatitis C Ab NONREACTIVE NONREACTIVE [place] Comment on above: The hepatitis C [...] predicted among non-blacks MDRD (S/P/Bld) [Vol rate/Area] [place] Comment on above: Stage 1: Some [...] body mass. Additional eGFR calculator available at: http://www.[facility]/multiple_crcl_2012.htm [facility] 01-01-2020 Erythrocyte distribution width (RBC) [Ratio] 12.5 % Normal 11.8-14.4 [facility] Comment on above: Performed By: #### P HEP, HIVCMB #### [address] [phone] Explosion Welder: Alvino Davila MD #### CP, CBC, HCG #### [address] [place] [address] Explosion Welder: Luis A Peng MD Hematocrit (Bld) [Volume fraction] 40.2 % Normal 36.3-47.1 [facility] Comment on above: Performed By: #### P HEP, HIVCMB #### [address] [id number] Explosion Welder: Alvino Davila MD #### CP, CBC, HCG #### [address] [place] [address] Explosion Welder: Luis A Peng MD Hemoglobin (Bld) [Mass/Vol] 13.1 g/dL Normal 11.9-15.1 [facility] Comment on above: Performed By: #### P HEP, HIVCMB #### [address] [phone] Explosion Welder: Alvino Davila MD #### CP, CBC, HCG #### [address] [place] [phone] Explosion Welder: Luis A Peng MD MCH (RBC) [Entitic mass] 28.4 pg Normal 25.2-33.5 [facility] Comment on above: Performed By: #### P HEP, HIVCMB #### [address] [id number] Explosion Welder: Alvino Davila MD #### CP, CBC, HCG #### [address] [place] [phone] Explosion Welder: Luis A Peng MD MCHC (RBC) [Mass/Vol] 32.6 g/dL Normal 28.4-34.8 [facility] Comment on above: Performed By: #### P HEP, HIVCMB #### [address] [phone] Explosion Welder: Alvino Davila MD #### CP, CBC, HCG #### [address] [place] [phone] Explosion Welder: Luis A Peng MD MCV (RBC) [Entitic vol] 87.2 fL Normal 82.6-102.9 [facility] Comment on above: Performed By: #### P HEP, HIVCMB #### [address] [phone] Explosion Welder: Alvino Davila MD #### CP, CBC, HCG #### [address] [place] [address] Explosion Welder: Luis A Peng MD NRBC Automated 0.0 per [address] [facility] Comment on above: Performed By: #### P HEP, HIVCMB #### [address] [phone] Explosion Welder: Alvino Davila MD #### CP, CBC, HCG #### [address] [place] [phone] Explosion Welder: Luis A Peng MD Platelet mean volume (Bld) [Entitic vol] 11.2 fL Normal 8.1-13.5 [facility] Comment on above: Performed By: #### P HEP, HIVCMB #### [address] [id number] Explosion Welder: Alvino Davila MD #### CP, CBC, HCG #### [address] [place] [phone] Explosion Welder: Luis A Peng MD Platelets (Bld) [#/Vol] 241 10*3/uL Normal 138-453 [facility] Comment on above: Performed By: #### P HEP, HIVCMB #### [address] [id number] Explosion Welder: Alvino Davila MD #### CP, CBC, HCG #### [address] [place] [phone] Explosion Welder: Luis A Peng MD RBC (Bld) [#/Vol] 4.61 10*6/uL Normal 3.95-5.11 [facility] Comment on above: Performed By: #### P HEP, HIVCMB #### [address] [id number] Explosion Welder: Alvino Davila MD #### CP, CBC, HCG #### [address] [place] [phone] Explosion Welder: Luis A Peng MD WBC (Bld) [#/Vol] 9.0 10*3/uL Normal 3.5-11.3 [facility] Comment on above: Performed By: #### P HEP, HIVCMB #### [address] [id number] Explosion Welder: Alvino Davila MD #### CP, CBC, HCG #### [facility] [address] [place] [address] Explosion Welder: Luis A Peng MD Erythrocyte distribution width (RBC) [Ratio] 12.5 % 11.8 - 14.4 % [place] Hematocrit (Bld) [Volume fraction] 40.2 % 36.3 - 47.1 % [place] Hemoglobin (Bld) [Mass/Vol] 13.1 g/dL 11.9 - 15.1 g/dL [place] MCH (RBC) [Entitic mass] 28.4 pg 25.2 - 33.5 pg [place] MCHC (RBC) [Mass/Vol] 32.6 g/dL 28.4 - 34.8 g/dL [place] MCV (RBC) [Entitic vol] 87.2 fL 82.6 - 102.9 fL [place] Platelet mean volume (Bld) [Entitic vol] 11.2 fL 8.1 - 13.5 fL [place] Platelets (Bld) [#/Vol] 241 10*3/uL [place] RBC (Bld) [#/Vol] 4.61 10*6/uL 3.95 - 5.1 1 m/uL [place] WBC (Bld) [#/Vol] 0.0 10*3/uL 0.0 per 100 WBC [place] WBC (Bld) [#/Vol] 9.0 10*3/uL [place] Comp Metabolic Profon 2019 (cont.) Normal [facility] Comment on above: Result Comment: Aver age GFR for 20-29 years old: 116 mL/min/1.73sq m Chronic Kidney Disease: <60 mL/min/1.73sq m Kidney failure: <15 mL/min/1.73sq m eGFR calculated using average adult body mass. Additional eGFR calculator available at: http://www.[employer]/multiple_crcl_2011.htm Performed By: #### P HEP, HIVCMB #### [address] [address] Explosion Welder: Alvino Davila MD #### CP, CBC, HCG #### [address] [place], [place] [phone] Explosion Welder: Luis A Peng MD Albumin [Mass/Vol] 4.2 g/dL Normal 3.5-5.2 [facility] Comment on above: Performed By: #### P HEP, HIVCMB #### [address] [address] Explosion Welder: Alvino Davila MD #### CP, CBC, HCG #### [address] [place] [address] Explosion Welder: Luis A Peng MD Albumin/Globulin [Mass ratio] 1.7 {ratio} Normal 1.0-2.5 [facility] Comment on above: Performed By: #### P HEP, HIVCMB #### [address] [address] Explosion Welder: Alvino Davila MD #### CP, CBC, HCG #### [address] [place] [address] Explosion Welder: Luis A Peng MD Alkaline Phos 69 U/L Normal 35-104 [facility] Comment on above: Performed By: #### P HEP, HIVCMB #### [address] [address] Explosion Welder: Alvino Davila MD #### CP, CBC, HCG #### [address] [place] [address] Explosion Welder: Luis A Peng MD ALT [Catalytic activity/Vol] 78 U/L High 5-33 [facility] Comment on above: Performed By: #### P HEP, HIVCMB #### [address] [address] Explosion Welder: Alvino Davila MD #### CP, CBC, HCG #### [facility] [address] [place] [phone] Explosion Welder: Luis A Peng MD Anion gap [Moles/Vol] 9 mmol/L Normal 9-17 [facility] Comment on above: Performed By: #### P HEP, HIVCMB #### [address] [address] Explosion Welder: Alvino Davila MD #### CP, CBC, HCG #### [facility] [address] [place] [phone] Explosion Welder: Luis A Peng MD AST [Catalytic activity/Vol] 44 U/L High <32 [facility] Comment on above: Performed By: #### P HEP, HIVCMB #### [address] [address] Explosion Welder: Alvino Davila MD #### CP, CBC, HCG #### [facility] [address] [place] [phone] Explosion Welder: Luis A Peng MD Bilirubin Ql (U) 0.15 mg/dL Low 0.3-1.2 [facility] Comment on above: Performed By: #### P HEP, HIVCMB #### [address] [address] Explosion Welder: Alvino aDvila MD #### CP, CBC, HCG #### [facility] [address] [place] [address] Explosion Welder: Luis A Peng MD BUN/CRE Ratio 20 Normal 9-20 [facility] Comment on above: Performed By: #### P HEP, HIVCMB #### [address] [address] Explosion Welder: Alvino Davila MD #### CP, CBC, HCG #### [facility] [address] [place], [place] [phone] Explosion Welder: Luis A Peng MD Calcium [Mass/Vol] 9.4 mg/dL Normal 8.6-10.4 [facility] Comment on above: Performed By: #### P HEP, HIVCMB #### [address] [address] Explosion Welder: Alvino Davila MD #### CP, CBC, HCG #### [facility] [address] [place] [address] [place], [place] [phone] Explosion Welder: Luis A Peng MD Chloride [Moles/Vol] 97 mmol/L Low 98-107 [facility] Comment on above: Performed By: #### P HEP, HIVCMB #### [address] [address] Explosion Welder: Alvino Davila MD #### CP, CBC, HCG #### [facility] [address] [place] [address] [place], [place] [phone] Explosion Welder: Luis A Peng MD CO2 [Moles/Vol] 28 mmol/L Normal 20-31 [facility] Comment on above: Performed By: #### P HEP, HIVCMB #### [address] [address] Explosion Welder: Alvino Davila MD #### CP, CBC, HCG #### [facility] [address] [place], [place] 2018183 Explosion Welder: Luis A Peng MD Creatinine [Mass/Vol] 0.55 mg/dL Normal 0.50-0.90 [facility] Comment on above: Performed By: #### P HEP, HIVCMB #### [address] [address] Explosion Welder: Alvino Davila MD #### CP, CBC, HCG #### [facility] [address] [place], [place] 1553483 Explosion Welder: Luis A Peng MD GFR, Amer >60 Normal >60 [facility] Comment on above: Performed By: #### P HEP, HIVCMB #### [address] [address] Explosion Welder: Alvino Davila MD #### CP, CBC, HCG #### [facility] [address] [place] [address] [place] [place], [place] [id number] Explosion Welder: Luis A Peng MD GFR,non Amer >60 Normal >60 [facility] Comment on above: Performed By: #### P HEP, HIVCMB #### [address] [address] Explosion Welder: Alvino Davila MD #### CP, CBC, HCG #### [address] [place], [place] [id number] Explosion Welder: Luis A Peng MD Glucose [Mass/Vol] 85 mg/dL Normal 70-99 [facility] Comment on above: Performed By: #### P HEP, HIVCMB #### [address] [address] Explosion Welder: Alvino Davila MD #### CP, CBC, HCG #### [address] [place], [place] [id number] Explosion Welder: Luis A Peng MD Potassium [Moles/Vol] 4.3 mmol/L Normal 3.7-5.3 [facility] Comment on above: Performed By: #### P HEP, HIVCMB #### [address] [address] Explosion Welder: Alvino Davila MD #### CP, CBC, HCG #### [address] [place], [place] [id number] Explosion Welder: Luis A Pneg MD Protein [Mass/Vol] 6.7 g/dL Normal 6.4-8.3 [facility] Comment on above: Performed By: #### P HEP, HIVCMB #### [address] [address] Explosion Welder: Alvino Davila MD #### CP, CBC, HCG #### [address] [place] [address] Explosion Welder: Luis A Peng MD Sodium [Moles/Vol] 134 mmol/L Low 135-144 [facility] Comment on above: Performed By: #### P HEP, HIVCMB #### [address] [address] Explosion Welder: Alvino Davila MD #### CP, CBC, HCG #### [address] [place] [address] Explosion Welder: Luis A Peng MD Staging: Normal [facility] Comment on above: Result Comment: Stag e 1: Some kidney damage normal GFR Stage 2: Mild kidney damage GFR 60-89 Stage 3: Moderate kidney damage GFR 30-59 Stage 4: Severe kidney damage GFR 15-29 Stage 5: Severe kidney damage GFR <15 ESRD - chronic treatment by dialysis or transplant Performed By: #### P HEP, HIVCMB #### [address] [address] Explosion Welder: Alvino Davila MD #### CP, CBC, HCG #### [address] [place] [address] Explosion Welder: Luis A Peng MD Urea nitrogen [Mass/Vol] 11 mg/dL Normal 6-20 [facility] Comment on above: Performed By: #### P HEP, HIVCMB #### [address] [address] Explosion Welder: Alvino Davila MD #### CP, CBC, HCG #### [facility] [address] [place] [place] [address] Explosion Welder: Luis A Peng MD Comprehensive Metabolic Pane liu 01-01-2020 Albumin [Mass/Vol] 4.2 g/dL 3.5 - 5.2 g/dL [place], [place] Albumin/Globulin [Mass ratio] 1.7 {ratio} [place], [place] ALP [Catalytic activity/Vol] 69 U/L 35 - 104 U/L [place] ALT [Catalytic activity/Vol] 78 U/L High 5 - 33 U/L [place] Anion gap [Moles/Vol] 9 mmol/L 9 - 17 mmol/L [place] AST [Catalytic activity/Vol] 44 U/L High <32 [place] Bilirubin Ql (U) 0.15 mg/dL Low 0.3 - 1.2 mg/dL [place], [place] Bun/Cre Ratio 20 [place], [place] Calcium [Mass/Vol] 9.4 mg/dL 8.6 - 10. 4 mg/dL [place] Chloride [Moles/Vol] 97 mmol/L Low 98 - 107 mmol/L [place] CO2 [Moles/Vol] 28 mmol/L 20 - 31 mmol/L [place] Creatinine [Mass/Vol] 0.55 mg/dL 0.5 - 0.9 mg/d L [place] GFR >60 >60 mL/min [place] GFR Non- >60 >60 mL/min [place] Glucose [Mass/Vol] 85 mg/dL 70 - 99 mg/dL [place] Interpretation and review of laboratory results Abnormal [place] Potassium [Moles/Vol] 4.3 mmol/L 3.7 - 5.3 mmol/L [place] Protein [Mass/Vol] 6.7 g/dL 6.4 - 8.3 g/dL [place], [place] Sodium [Moles/Vol] 134 mmol/L Low 135 - 144 mmol/L [place] Urea nitrogen [Mass/Vol] 11 mg/dL 6 - 20 mg/dL [place] HCG Qualitative, Serumon hCG Qual Negative NEGATIVE [place] Comment on above: Specimens with hCG l evels near the threshold of the test (25 mIU/mL) may give a negative or indeterminate result. In such cases, another test should be performed with a new specimen in 48-72 hours. If early is suspected clinically in this setting, correlation with quantitative serum b-hCG level is suggested. [facility] has confirmed the use of plasma for this test. This has not been cleared or approved by the U.S. Food and Drug Administration. The FDA has determined that such clearance is not necessary. HCG Screen, Bloodon 01-01-20 20 HCG Qn Negative Normal NEG [facility] Comment on above: Result Comment: Spec imens with hCG levels near the threshold of the test (25 mIU/mL) may give a negative or indeterminate result. In such cases, another test should be performed with a new specimen in 48-72 hours. If early is suspected clinically in this setting, correlation with quantitative serum b-hCG level is suggested. [facility] has confirmed the use of plasma for this test. This has not been cleared or approved by the U.S. Food and Drug Administration. The FDA has determined that such clearance is not necessary. Performed By: #### P HEP, HIVCMB #### [id number] [place], [place] [id number] Explosion Welder: Alvino Davila MD #### CP, CBC, HCG #### [facility] [address] [place] [address] Explosion Welder: Luis A Peng MD HIV Ag/Abon 01-01-2020 HIV Ag/Ab NONREACTIVE Normal NR [facility] Comment on above: Result Comment: No l aboratory evidence of HIV infection. If acute HIV infection is suspected, consider testing for HIV-1 RNA. Performed By: #### P HEP, HIVCMB #### [facility] [address] [place], [place] [id number] Explosion Welder: Alvino Davila MD #### CP, CBC, HCG #### [address] [place], [place] [phone] Explosion Welder: Luis A Peng MD HIV Screenon 01-01-2020 HIV Ag/Ab NONREACTIVE NONREACTIVE [place], [place] Comment on above: No laboratory eviden ce of HIV infection. If acute HIV infection is suspected, consider testing for HIV-1 RNA. Hepatitis Acute [facility] 12-31 Hep A Ab,IgM NONREACTIVE Normal [facility] Comment on above: Performed By: #### P HEP, HIVCMB #### [address] [address] Explosion Welder: Alvino Davila MD #### CP, CBC, HCG #### [address] [place], [place] [id number] Explosion Welder: Luis A Peng MD Hep B Core Ab,IgM NONREACTIVE Normal [facility] Comment on above: Performed By: #### P HEP, HIVCMB #### [address] [address] Explosion Welder: Alvino Davila MD #### CP, CBC, HCG #### [address] [place], [place] [id number] Explosion Welder: Luis A Peng MD Hep B Surf Ag NONREACTIVE Normal [facility] Comment on above: Performed By: #### P HEP, HIVCMB #### [address] [address] Explosion Welder: Alvino Davila MD #### CP, CBC, HCG #### [address] [place], [place] [id number] Explosion Welder: Luis A Peng MD Hep C Ab NONREACTIVE [facility] Comment on above: Result Comment: [...] Performed By: #### P HEP, HIVCMB #### [facility] [address] [place] [address] Explosion Welder: Alvino Davila MD #### CP, CBC, HCG #### [facility] [address] [place] [address] Explosion Welder: Luis A Peng MD Hepatitis Panel, Acuteon HAV IgM IA Qn (S) NONREACTIVE NONREACTIVE [place] Hep B Core Ab, IgM NONREACTIVE NONREACTIVE [place] Hepatitis B Surface Ag NONREACTIVE NONREACTIVE [place] Hepatitis C Ab NONREACTIVE NONREACTIVE [place], [place] Comment on above: The hepatitis C [...] predicted among non-blacks MDRD (S/P/Bld) [Vol rate/Area] [place] Comment on above: Stage 1: Some [...] body mass. Additional eGFR calculator available at: http://www.[employer]/multiple_crcl_2012.htm Vital Signs Date Time Vital Sign Value Performing Clinician Ld blackmon 06-07-2025 10:17-0400 Body mass index (BMI) [Ratio] 27.46 kg/m2 Mee Yary DO Work Phone: [facility] 06-07-2025 10:17-0400 Body weight 74.84 kg Mee Yary DO Work Phone: [facility] 06-07-2025 10:17-0400 Diastolic blood pressure 74 mm[Hg] Mee Yary DO Work Phone: [facility] 06-07-2025 10:17-0400 Systolic blood pressure 118 mm[Hg] Mee Yary DO Work Phone: [facility] 05-30-2025 09:30-0400 Body height 165.1 cm Nohemy Hernandez MD Work Phone: [facility] 05-30-2025 09:30-0400 Body mass index (BMI) [Ratio] 27.09 kg/m2 Nohemy Hernandez MD Work Phone: [facility] 05-30-2025 09:30-0400 Body weight 73.85 kg Nohemy Hernandez MD Work Phone: [facility] 05-30-2025 09:30-0400 Diastolic blood pressure 73 mm[Hg] Nohemy Hernandez MD Work Phone: [facility] 05-30-2025 09:30-0400 Heart rate 83 /min Nohemy Hernandez MD Work Phone: [facility] 05-30-2025 09:30-0400 Systolic blood pressure 110 mm[Hg] Nohemy Hernandez MD Work Phone: [facility] 05-30-2025 08:57-0400 Body height 165.1 cm Nohemy Hernandez MD Work Phone: [facility] 05-16-2025 10:59-0400 Body mass index (BMI) [Ratio] 26.46 kg/m2 Mee Yary DO Work Phone: [facility] 05-16-2025 10:59-0400 Body weight 72.12 kg Mee Yary DO Work Phone: [facility] 05-16-2025 10:59-0400 Diastolic blood pressure 70 mm[Hg] Mee Yary DO Work Phone: [facility] 05-16-2025 10:59-0400 Systolic blood pressure 110 mm[Hg] Mee Yary DO Work Phone: [facility] 05-02-2025 15:42-0400 Body mass index (BMI) [Ratio] 26.26 kg/m2 Mee Yary DO Work Phone: [facility] 05-02-2025 15:42-0400 Body weight 71.58 kg Mee Yary DO Work Phone: [facility] 05-02-2025 15:42-0400 Diastolic blood pressure 70 mm[Hg] Mee Yary DO Work Phone: [facility] 05-02-2025 15:42-0400 Systolic blood pressure 104 mm[Hg] Mee Yary DO Work Phone: [facility] 04-18-2025 13:35-0400 Body mass index (BMI) [Ratio] 25.79 kg/m2 Mee Yary DO Work Phone: [facility] 04-18-2025 13:35-0400 Body weight 70.31 kg Mee Yary DO Work Phone: [facility] 04-18-2025 13:35-0400 Diastolic blood pressure 64 mm[Hg] Mee Yary DO Work Phone: [facility] 04-18-2025 13:35-0400 Systolic blood pressure 112 mm[Hg] Mee Yary DO Work Phone: [facility] 04-06-2025 11:47-0400 Body mass index (BMI) [Ratio] 25.76 kg/m2 Noms Nurse [facility] 04-06-2025 11:47-0400 Body weight 70.22 kg Noms Nurse [facility] Encounters Encounter Date Encounter Type Care Provider Facility Start: 06-11-2025 End: 06-11-2025 Clinisync Result Encounter Mee Yary DO Work Phone: [facility] Unsolicited Start: 06-11-2025 End: 06-11-2025 Clinisync Result Encounter Mee Yary DO Work Phone: [facility] Unsolicited Start: 06-08-2025 End: 06-08-2025 Clinisync Result Encounter Mee Yary DO Work Phone: [facility] Unsolicited Start: 06-08-2025 End: 06-08-2025 Clinisync Result Encounter Mee Yary DO Work Phone: [facility] Unsolicited Start: 06-07-2025 End: 06-07-2025 Bamboo flowsheet Mee Yary DO Work Phone: [facility] Start: 06-07-2025 End: 06-07-2025 Bamboo flowsheet Mee Yary DO Work Phone: [facility] Start: 06-07-2025 End: 06-07-2025 ambulatory MEE YARY Not Available Start: 06-07-2025 End: 06-07-2025 Office outpatient visit 15 minutes Eme Yary DO Work Phone: [facility] Comment on above: Third trimester preg helder ([facility]); 32 weeks gestation of ([facility]); H/O opioid abuse ([facility] History of placental abruption; Diabetes mellitus screening Start: 06-05-2025 End: 06-05-2025 Clinisync Result Encounter Mee Yary DO Work Phone: [facility] Unsolicited Start: 06-05-2025 End: 06-05-2025 Clinisync Result Encounter Mee Yary DO Work Phone: [facility] Unsolicited Start: 05-30-2025 End: 05-30-2025 Chart abstracting Nohemy Hernandez MD Work Phone: [facility] Start: 05-30-2025 End: 05-30-2025 Office outpatient new 45 minutes Nohemy Hernandez MD Work Phone: [facility] Comment on above: History of placental abruption (Primary Dx); Hepatitis C virus infection without hepatic coma, unspecified chronicity Start: 05-30-2025 End: 05-30-2025 ambulatory MEE R YARY [facility] Start: 05-21-2025 End: 05-21-2025 Clinisync Result Encounter Mee Yary DO Work Phone: [facility] Unsolicited Start: 05-21-2025 End: 05-21-2025 Clinisync Result Encounter Mee Yary DO Work Phone: [facility] Unsolicited Start: 05-16-2025 End: 05-16-2025 Bamboo flowsheet Mee Yary DO Work Phone: [facility] Start: 05-16-2025 End: 05-16-2025 Bamboo flowsheet Mee Yary DO Work Phone: [facility] Start: 05-16-2025 End: 05-16-2025 Office outpatient visit 15 minutes Mee Yary DO Work Phone: [facility] Comment on above: 29 weeks gestation o f ([facility]); Third trimester ([facility]); Request for sterilization; H/O opioid abuse ([facility]); History of placental abruption Start: 05-16-2025 End: 05-16-2025 ambulatory MEE YARY Not Available Start: 05-02-2025 End: 05-02-2025 ambulatory MEE YARY Not Available Start: 05-02-2025 End: 05-02-2025 Office outpatient visit 15 minutes Mee Yary DO Work Phone: [facility] Comment on above: Second trimester pre gnancy ([facility]); 27 weeks gestation of ([facility]); Request for sterilization; H/O opioid abuse ([facility]); History of placental abruption Start: 05-02-2025 End: [...] Comment on above: Second trimester pre gnancy ([facility]); 25 weeks gestation of ([facility]) Start: 04-09-2025 End: 04-09-2025 Clinisync Result Encounter Paradise MORROW Work Phone: [facility] Unsolicited Start: 04-09-2025 End: 04-09-2025 Clinisync Result Encounter Paradise MORROW Work Phone: [facility] Unsolicited Start: 04-06-2025 End: 04-06-2025 Office outpatient visit 5 minutes [facility] Yary Nurse [facility] Comment on above: GA: 23w6d [...] POTTER Facility:[facility] Start: 03-27-2021 End: 03-28-2021 ambulatory Helder Monk MD Facility:[facility] Start: 12-06-2020 End: 12-07-2020 Patient encounter procedure [facility] Start: 12-06-2020 End: 12-06-2020 Subsequent hospital visit by physician [facility] Start: 11-11-2020 End: 11-12-2020 Patient encounter procedure [facility] Start: 05-30-2020 End: 05-31-2020 Patient encounter procedure [facility] Start: 05-30-2020 End: 05-30-2020 Subsequent hospital visit by physician [facility] Start: 01-01-2020 End: 01-02-2020 Patient encounter procedure [facility] Start: 01-01-2020 End: 01-01-2020 Subsequent hospital visit by physician [facility] Start: 09-20-2018 End: 09-21-2018 Patient encounter procedure [facility] Nava Facility:[id number] Procedures Date Procedure Procedure Detail Performing Clinician Start: 06-11-2025 US OB BPP W NON-STRESS Mee Yary DO Work Phone: Start: 06-08-2025 MLR HEMOGLOBIN A1C Core y Yary DO Work Phone: Start: 06-07-2025 Urnls dip stick/tabl et rgnt non-auto w/o micrscp Mee Yary DO Work Phone: Start: 06-05-2025 OB BPP W NON-STRESS Mee Yary DO Work Phone: Start: 05-21-2025 Antibody screen Nohemy pizano MD [...] Not In System Ref Prov Start: 05-21-2025 [facility] DRUG SCREEN RAPI D (URINE) Mee Yary DO Work Phone: Start: 05-16-2025 Urnls dip stick/tabl et rgnt non-auto w/o micrscp Mee Yary DO Work Phone: Start: 04-18-2025 Urnls dip stick/tabl et rgnt non-auto w/o micrscp Mee Yary DO Work Phone: Start: 04-09-2025 US OB ANATOMY Paradise MORROW Work Phone: Start: 04-09-2025 US OB CERVICAL LENGTH A my Cary PA Work Phone: Start: 04-06-2025 Urnls dip stick/tabl [...] Phone: Start: 01-01-2020 Acute hepatitis panel E JEAN FRITZ Start: 01-01-2020 Antibody hiv-1&hiv-2 single result MALINI FRITZ Start: 01-01-2020 Blood count complete automated MALINI FRITZ Start: 01-01-2020 Comprehensive metabo lic panel MALINI FRITZ Start: 01-01-2020 Gonadotropin chorion ic qualitative MALINI FRITZ Start: 01-01-2020 Acute hepatitis panel E jean Fritz Work Phone: Start: 01-01-2020 Antibody hiv-1&hiv-2 single result Malini Fritz Work Phone: Start: 01-01-2020 Blood count complete automated Malini Fritz Work Phone: Start: 01-01-2020 Comprehensive metabo lic panel Malini Fritz Work Phone: Start: 01-01-2020 Gonadotropin chorion ic qualitative Malini Fritz Work Phone: Plan of Treatment Date Care Activity Detail Author Start: 05-30-2026 Adult BMI Screening Adult BMI Screen ing [facility] Start: 05-30-2026 Tobacco Screening Tobacco Screening [facility] Start: 07-05-2025 End: 07-05-2025 Patient encounter procedure [facility] Imaging Start: 07-02-2025 Influenza vaccination [facility] Start: 06-20-2025 End: 06-20-2025 Patient encounter procedure 06/20/2025 2:30 PM EDT Routine [facility] [address] [place] [id number] Mee Pringle DO [address] [place] [address] [facility] Start: 05-30-2025 End: 05-30-2026 US MFM with or without consult US MFM with or without consult Imaging Routine History of placental abruption Hepatitis C virus infection without hepatic coma, unspecified chronicity Expected: 05/30/2025, Expires: 05/30/2026 [facility] Comment on above: Expected: 05/30/2025 , Expires: 05/30/2026 Start: 05-30-2025 End: 05-30-2025 Patient encounter procedure [facility] Start: 05-30-2025 End: 05-30-2025 Professional / ancillary services management 05/30/2025 10:30 AM EDT Ancillary Procedure [facility] [address] [place] [address] [facility] Start: 05-30-2025 Subsequent hospital visit by physician 05/30/2025 9:15 AM EDT Hospital Encounter [facility] Imaging [address] [place] [address] [facility] Start: 05-16-2025 End: 11-16-2025 US biophysical profile w non stress test US biophysical profile w non stress test Imaging Routine H/O opioid abuse ([facility]) History of placental abruption Expected: 05/16/2025 (Approximate), Expires: 11/16/2025 [facility] Work Phone: Comment on above: Expected: 05/16/2025 (Approximate), Expires: 11/16/2025 Start: 05-16-2025 End: 05-16-2025 Patient encounter procedure [facility] Comment on above: Arrived Start: 05-02-2025 End: 05-02-2025 Patient encounter procedure 05/02/2025 3:20 PM EDT Routine [facility] [address] [place] [id number] Mee Pringle, [address] [place] [address] [facility] Start: 04-18-2025 End: 08-18-2025 US for US OB follow up transabdominal approach Imaging Routine Second trimester ([facility]) Expected: 04/18/2025, Expires: 08/18/2025 [facility] Work Phone: Comment on above: Expected: 04/18/2025 , Expires: 08/18/2025 Start: 04-18-2025 End: 04-18-2025 Patient encounter procedure 04/18/2025 1:30 PM EDT Routine [facility] [address] [place] [phone] Mee Pringle, [address] [facility] [place] [address] [facility] Start: 04-06-2025 End: 04-06-2026 ABO/Rh ABO/Rh Lab Routine Missed menses , unspecified gestational age ([facility]) Expected: 04/06/2025 (Approximate), Expires: 04/06/2026 [facility] Comment on above: Expected: 04/06/2025 (Approximate), Expires: 04/06/2026 Start: 04-06-2025 End: 04-06-2026 Blood type and Indirect antibody screen panel - Blood Type and screen Lab Routine Missed menses , unspecified gestational age ([facility]) Expected: 04/06/2025 (Approximate), Expires: 04/06/2026 [facility] Work Phone: Comment on above: Expected: 04/06/2025 (Approximate), Expires: 04/06/2026 Start: 04-06-2025 End: 04-06-2026 CBC panel - Blood by Automated count CBC Lab Routine Diabetes mellitus screening Expected: 04/06/2025 (Approximate), Expires: 04/06/2026 [facility] Comment on above: Expected: 04/06/2025 (Approximate), Expires: 04/06/2026 Start: 04-06-2025 End: 04-06-2026 Drugs of abuse panel - Urine by Screen method Rapid drug screen, urine Lab Routine , unspecified gestational age ([facility]) Encounter for supervision of normal first in first trimester ([facility]) Expected: 04/06/2025 (Approximate), Expires: 04/06/2026 [facility] Comment on above: Expected: 04/06/2025 (Approximate), Expires: 04/06/2026 Start: 04-06-2025 End: 04-06-2026 Measurement of glucose 1 hour after glucose challenge for glucose tolerance test Glucose tolerance, 1 hour Lab Routine Diabetes mellitus screening Expected: 04/06/2025 (Approximate), Expires: 04/06/2026 [facility] Comment on above: Expected: 04/06/2025 (Approximate), Expires: 04/06/2026 Start: 04-06-2025 End: 07-07-2025 US for US OB 14+ weeks anatomy scan Imaging Routine Screening, , for anatomic survey ([facility]) Expected: 04/06/2025, Expires: 07/07/2025 [facility] Comment on above: Expected: 04/06/2025 , Expires: 07/07/2025 Start: 07-02-2024 COVID-19 Vaccine ( season) COVID-19 Vaccine ( season) [facility] Start: 07-02-2024 Influenza vaccination Influenza Vacc ine (#1) [facility] Start: 2022 Screening for malign ant neoplasm of cervix [facility] Start: 07-02-2020 Influenza vaccination Flu vaccine (# 1) [place], [place] Start: 2013 Screening for malign ant neoplasm of cervix Pap Smear [facility] Start: 2011 DTaP,Tdap and Td Vaccines (1 - Tdap) DTaP,Tdap and Td Vaccines (1 - Tdap) [facility] Start: 2010 Adult BMI Follow Up Plan Adult BMI Follow Up Plan [facility] Start: 2010 Adult BMI Screening Adult BMI Screen ing [facility] Start: 2004 Depression Screening Depression Scre ening [facility] Start: 2004 Tobacco Screening Tobacco Screening [facility] Start: 2003 DTaP,Tdap and Td Vaccines (6 - Tdap) DTaP,Tdap and Td Vaccines (6 - Tdap) [facility] End: 05-30-2026 Anti cariolipin AB IgG IgA IgM Anti cariolipin AB IgG IgA IgM Lab Routine History of placental abruption 1 Occurrences starting 05/30/2025 until 05/30/2026 [facility] Comment on above: 1 Occurrences starti ng 05/30/2025 until 05/30/2026 End: 05-30-2026 aPTT in Blood by Coagulation assay APTT Lab Routine History of placental abruption Hepatitis C virus infection without hepatic coma, unspecified chronicity 1 Occurrences starting 05/30/2025 until 05/30/2026 [facility] Comment on above: 1 Occurrences starti ng 05/30/2025 until 05/30/2026 Bacteria identified in Urine by Culture Urine culture Microbiology Routine Missed menses Ordered: 04/06/2025 [facility] Comment on above: Ordered: 04/06/2025 End: 05-30-2026 Beta-2 glycoprotein antibodies Beta-2 glycoprotein antibodies Lab Routine History of placental abruption 1 Occurrences starting 05/30/2025 until 05/30/2026 [facility] Comment on above: 1 Occurrences starti ng 05/30/2025 until 05/30/2026 CBC W Auto Different ial panel - Blood CBC and differential Lab Routine Missed menses , unspecified gestational age ([facility]) Ordered: 04/06/2025 [employer] [facility] Comment on above: Ordered: 04/06/2025 End: 05-30-2026 Comprehensive metabolic 2000 panel - Serum or Plasma Comprehensive metabolic panel Lab Routine History of placental abruption Hepatitis C virus infection without hepatic coma, unspecified chronicity 1 Occurrences starting 05/30/2025 until 05/30/2026 [facility] Work Phone: Comment on above: 1 Occurrences starti ng 05/30/2025 until 05/30/2026 End: 05-30-2026 [facility] Lab Routine History of placental abruption 1 Occurrences starting 05/30/2025 until 05/30/2026 [facility] [employer] Comment on above: 1 Occurrences starti ng 05/30/2025 until 05/30/2026 Hemoglobin A1c/Hemoglobin.total in Blood Hemoglobin A1c Lab Routine Missed menses , unspecified gestational age ([facility]) Ordered: 04/06/2025 [employer] Comment on above: Ordered: 04/06/2025 Hemoglobin A1c/Hemoglobin.total in Blood Hemoglobin A1c Lab Routine Diabetes mellitus screening Ordered: 06/07/2025 [employer] Work Phone: Comment on above: Ordered: 06/07/2025 Hepatitis B virus surface Ag [Presence] in Serum or Plasma by Immunoassay Hepatitis B surface antigen Lab Routine Missed menses , unspecified gestational age ([facility]-HCC) Ordered: 04/06/2025 [facility] Comment on above: Ordered: 04/06/2025 Hepatitis C virus Ab [Presence] in Serum or Plasma by Immunoassay Hepatitis C antibody Lab Routine Missed menses , unspecified gestational age ([facility]-HCC) Ordered: 04/06/2025 [facility] Comment on above: Ordered: 04/06/2025 HIV-1/HIV-2 antigen/antibody combination immunoassay HIV-1 and HIV-2 antibodies Lab Routine Missed menses , unspecified gestational age ([facility]HS-HCC) Ordered: 04/06/2025 [facility] Comment on above: Ordered: 04/06/2025 End: 05-30-2026 Protime & INR Protime & INR Lab Routine History of placental abruption Hepatitis C virus infection without hepatic coma, unspecified chronicity 1 Occurrences starting 05/30/2025 until 05/30/2026 [facility] Comment on above: 1 Occurrences starti ng 05/30/2025 until 05/30/2026 Reagin Ab [Presence] in Serum by RPR RPR Lab Routine Missed menses , unspecified gestational age ([facility]HS-HCC) Ordered: 04/06/2025 [facility] Comment on above: Ordered: 04/06/2025 Rubella antibody, IgG Rubella an tibody, IgG Lab Routine Missed menses , unspecified gestational age ([facility]) Ordered: 04/06/2025 [facility] Comment on above: Ordered: 04/06/2025 Payers Date Payer Category Payer Medicaid (Managed Care) [facility] MEDICAID [id number] [facility] HEALTH PLAN [facility] xxxxxxxxxxxx 2019-Present [phone] [facility] [place] [address] xxxxxxxxxxxx [id number] [facility] HEALTH [facility]AN [facility] [id number] 2019-Present [phone] [address] [place] [id number] 2019 Medicaid HMO [place] [employer] [id number] 1992 Unknown [id number] 2.16.840.1.897409.3.579.2. 173 1992 Unknown [id number] 2.16.840.1.113543.3.579.2. 173 1992 Unknown [id number] 2.16.840.1.156789.3.579.2. 173 1992 Unknown [id number] 2.16.840.1.996010.3.579.2. 173 1992 Unknown [id number] 2.16.840.1.919516.3.579.2. 196 1992 Unknown [id number] 2.16.840.1.562041.3.579.2. 593 1992 Unknown [id number] 2.16.840.1.433705.3.579.2. 593 1992 Unknown [id number] 2.16.840.1.793100.3.579.2. 593 1992 Unknown [id number] 2.16.840.1.341423.3.579.2. 593 1992 Unknown [id number] 2.16.840.1.447714.3.579.2. 593 1992 Unknown [id number] 2.16.840.1.163411.3.579.2. 593 1992 Unknown [id number] 2.16.840.1.992243.3.579.2. 1286 1992 Unknown [id number] 2.16.840.1.412495.3.579.2. 1286 1992 Unknown [id number] 2.16.840.1.918592.3.579.2. 1259 1992 Unknown [id number] 2.16.840.1.230207.3.579.2. 1259 1992 Unknown [id number] 2.16.840.1.923397.3.579.2. 1259 1992 Unknown [id number] 2.16.840.1.416678.3.579.2. 1259 1992 Unknown [id number] 2.16.840.1.540793.3.579.2. 1259 1959 Unknown [id number] Social History Date Type [facility]ail [facility] 1990 Sex Assigned At Not on file [facility] Start: 04-23-2023 End: 05-30-2025 Tobacco smoking status VAIS Smokes tobacco daily [facility] History of tobacco use Cigarette Smoker [facility] Start: 04-23-2023 End: 05-30-2025 Tobacco use and exposure Smokeless tobacco non-user [facility] Start: 04-23-2023 End: 06-07-2025 Alcoholic beverage intake Lifetime non-drinker (finding) [facility] Start: 04-23-2023 Tobacco Comment Smokes 6-10 ci garettes per day [facility] Start: 12-12-2020 End: 04-06-2025 Gender identity Not on file [facility] Start: 12-12-2020 End: 04-06-2025 History of Social function [facility] Start: 11-04-2024 [facility] Start: 05-30-2025 Alcoholic beverage intake Ex-drinker (finding) [facility] Childcare Unknown [facility] Start: 06-06-2015 Sex Female (finding) [facility] Start: 05-30-2025 Tobacco smoking stat [facility] Ex-smoker [facility] History of tobacco use Current smoker [facility] Clinical Notes 04-06-2025 to 06-07-2025 Karmen Lynn, INTERIOR DESIGN TEACHER - 06/07/2025 9:40 AM Clive Raya, [facility] - 05/30/2025 10:30 AM Douglas Hernandez MD - 05/30/2025 10:30 AM Deangelo Aguilar, [facility] - 05/16/2025 11:00 AM EDT Note Date & Type Note Facility 06-07-2025 History of Present illness Narrative Reason for [...] (HCC) BMI 28.0-28.9,adult Drug abuse, opioid type ([facility] Encounter for follow-up Encounter for gynecological examination (general) (routine) without abnormal findings Labial cyst Pain pelvic HISTORY PAST MEDICAL HISTORY SOCIAL HISTORY Past Medical History: Diagnosis Date Abscess of labia Bipolar disorder ([facility]) BMI 28.0-28.9,adult Drug abuse, opioid type ([facility]) Encounter for follow-up Encounter for gynecological examination [...] nursing note reviewed. Exam conducted with a celluloid trimmer present. Vitals: Estimated body mass index is 27.46 kg/m as calculated from the following: Height as of 12/09/22: 5' 5 . Weight as of this encounter: 165 lb. BP: 118/74 No LMP recorded. Patient is . ASSESSMENT & PLAN ICD-10-CM 1. Third trimester ([facility]) Z34.93 POCT urinalysis dipstick manually resulted 2. 32 weeks gestation of ([facility]) Z3A.32 3. H/O opioid abuse ([facility]) F11.11 4. History of placental abruption Z87.59 5. Diabetes mellitus screening Z13.1 Hemoglobin A1c Patient presents today for a routine obstetrics appointment. Patient is currently 32w5d with a Estimated Date of Delivery: 07/28/25. Patient desires to have Rpt w/ Tubal Ligation on 07/06/25. Patient to return to clinic for routine OB care appointment in 2 weeks. Documented by Karmen Lynn LPN on behalf of: Mee Pringle DO documented in this encounter [facility] 05-30-2025 History of Present illness Narrative Headache/epigastric [...] No Have you been seen here at [facility] in a previous ? No Recent ER visits or hospitalizations? No Bring blood sugar log or meter with you today? (Please bring them with you for every visit at [facility]) N/A Flu vaccine (Sep-December)? N/A Any concerns that you would like me to mention to the provider today? No REASON FOR CONSULTATION: hepatitis C, seroquel use, history of placental abruption , suboxone use HISTORY OF PRESENT ILLNESS: Carmelita Cason is a pleasant 34 y.o. at [...] it affect 1-4% of women in the [place]. I reviewed with the patient that Hepatitis [...] intensive care unit. The overall risk of Krjacwjc-Ss-Xwbxd-Transmission (MTCT) during is approximately 4-8%. If the [...] C infection until after 18 months. The [place] [employer] and CDC recommend screening [...] and counseling, coordination of care which was [id number]. documented in this encounter [facility] 05-16-2025 History of Present illness Narrative Reason [...] (HCC) BMI 28.0-28.9,adult Drug abuse, opioid type ([facility]) Encounter for follow-up Encounter for gynecological examination (general) (routine) without abnormal findings Labial cyst Pain pelvic HISTORY PAST MEDICAL HISTORY SOCIAL HISTORY Past Medical History: Diagnosis Date Abscess of labia Bipolar disorder (HCC) BMI 28.0-28.9,adult Drug abuse, opioid type ([facility]) Encounter for follow-up Encounter for gynecological examination [...] nursing note reviewed. Exam conducted with a celluloid trimmer present. Vitals: Estimated body mass index is 26.46 kg/m as calculated from the following: Height as of 12/09/22: 5' 5 . Weight as of this encounter: 159 lb. BP: 110/70 No LMP recorded. Patient is . ASSESSMENT & PLAN ICD-10-CM 1. 29 weeks gestation of ([facility]) Z3A.29 POCT urinalysis dipstick manually resulted 2. Third trimester ([facility]) Z34.93 POCT urinalysis dipstick manually resulted 3. Request for sterilization Z30.2 4. H/O opioid abuse ([facility]) F11.11 5. History of placental abruption Z87.59 [...] Mee Pringle DO documented in this encounter [facility] 05-02-2025 History of Present illness Narrative Reason [...] (HCC) BMI 28.0-28.9,adult Drug abuse, opioid type ([facility]) Encounter for follow-up Encounter for gynecological examination (general) (routine) without abnormal findings Labial cyst Pain pelvic HISTORY PAST MEDICAL HISTORY SOCIAL HISTORY Past Medical History: Diagnosis Date Abscess of labia Bipolar disorder (HCC) BMI 28.0-28.9,adult Drug abuse, opioid type ([facility]) Encounter for follow-up Encounter for gynecological examination [...] nursing note reviewed. Exam conducted with a celluloid trimmer present. Vitals: Estimated body mass index is 26.26 kg/m as calculated from the following: Height as of 12/09/22: 5' 5 . Weight as of this encounter: 157 lb 12.8 oz. BP: 104/70 No LMP recorded. Patient is . ASSESSMENT & PLAN ICD-10-CM 1. Second trimester ([facility]) Z34.92 2. 27 weeks gestation of ([facility]) Z3A.27 3. Request for sterilization Z30.2 4. H/O opioid abuse ([facility]) F11.11 5. History of placental abruption Z87.59 [...] Mee Pringle DO documented in this encounter [facility] 04-18-2025 History of Present illness Narrative Reason [...] (HCC) BMI 28.0-28.9,adult Drug abuse, opioid type ([facility]) Encounter for follow-up Encounter for gynecological examination (general) (routine) without abnormal findings Labial cyst Pain pelvic HISTORY PAST MEDICAL HISTORY SOCIAL HISTORY Past Medical History: Diagnosis Date Abscess of labia Bipolar disorder (HCC) BMI 28.0-28.9,adult Drug abuse, opioid type ([facility]) Encounter for follow-up Encounter for gynecological examination [...] nursing note reviewed. Exam conducted with a celluloid trimmer present. Vitals: Estimated body mass index is 25.79 kg/m as calculated from the following: Height as of 12/09/22: 5' 5 . Weight as of this encounter: 155 lb. BP: 112/64 No LMP recorded. Patient is . ASSESSMENT & PLAN ICD-10-CM 1. Second trimester ([facility]) Z34.92 POCT urinalysis dipstick manually resulted 2. 25 weeks gestation of ([facility]) Z3A.25 Return OB: Patient presents today for [...] Mee Pringle DO documented in this encounter [facility] 04-06-2025 History of Present illness Narrative Reason [...] Diagnosis Date Abscess of labia Bipolar disorder ([facility]) BMI 28.0-28.9,adult Drug abuse, opioid type ([facility]) Encounter for follow-up Encounter for gynecological examination [...] dipstick manually resulted , unspecified gestational age ([facility]-HCC) - Type and screen; Future - ABO/Rh; Future - CBC and differential - Hemoglobin A1c - RPR - Rubella antibody, IgG - Hepatitis B surface antigen - Hepatitis C antibody - HIV-1 and HIV-2 antibodies - Rapid drug screen, urine; Future Encounter for supervision of normal first in first trimester ([facility]) - Rapid drug screen, urine; Future Screening, , for anatomic survey ([facility]) - US OB 14+ weeks anatomy scan; Future Diabetes mellitus screening - CBC; Future - Glucose tolerance, 1 hour; Future headache in second trimester ([facility]) - magnesium oxide (Mag-Ox) 400 MG tablet; [...] or undercooked meat, and stay away from [facility]. Patient has also been advised to not [...] Olive Leon LPN documented in this encounter [facility] Evaluation note Diagnosis Missed menses , unspecified gestational age ([facility]) Encounter for supervision of normal first in first trimester ([facility]) Screening, , for anatomic survey ([facility]) Encounter for anatomic survey Diabetes mellitus screening Screening for diabetes mellitus headache in second trimester ([facility]) [facility] Diagnosis Second trimester ([facility]-HCC) state, incidental 25 weeks gestation of ([facility]) [facility] Diagnosis Second trimester ([facility]-HCC) state, incidental 27 weeks gestation of ([facility]-HCC) Request for sterilization H/O opioid abuse (CMS-HCC) History of placental abruption [facility] Diagnosis 29 weeks gestation of ([facility]-HCC) Third trimester (HHS-HCC) state, incidental Request for sterilization H/O opioid abuse (CMS-HCC) History of placental abruption [facility] Diagnosis History of placental abruption- Primary Hepatitis C virus infection without hepatic coma, unspecified chronicity documented [facility] this encounter [facility] Diagnosis Third trimester ([facility]HS-HCC) state, incidental 32 weeks gestation of ([facility]HS-HCC) H/O opioid abuse (CMS-HCC) History of placental abruption Diabetes mellitus screening Screening for diabetes mellitus documented in this encounter [facility] HealthcareInstructionsNot on filedocumented in this encounterPro[facility] SystemInstructionsNot on filedocumented in this encounterProAdena [facility] SystemInstructionsNot on filedocumented in this encounter[facility] Summary Purpose Family History No Family History Records FoundNo Family History Records FoundNo Family History Records FoundNo Family History Records FoundNo Family History Records FoundNo Family History Records Found Advance Directives Documents on File Type Date Recorded Patient Call Center Specialist Expl anation Advance Directives and Living Will Power of Brim Plater Documents on File Type Date Recorded Patient Call Center Specialist Expl anation ACP-Advance Directive ACP-Power of Brim Plater Additional Source Comments INFORMATION SOURCE (unrecogn ized section and content) DATE CREATED AUTHOR 10/10/2018 [facility] DATE CREATED AUTHOR AUTHOR'S ORGANIZ ATION 12/06/2020 [facility] DATE CREATED AUTHOR AUTHOR'S ORGANIZ ATION 03/29/2021 [facility] DATE CREATED AUTHOR AUTHOR'S ORGANIZ ATION 12/10/2022 [facility] DATE CREATED AUTHOR AUTHOR'S ORGANIZ ATION 06/01/2025 [facility] DATE CREATED AUTHOR AUTHOR'S ORGANIZ ATION 06/09/2025 [facility] dical Specialists EPIC Reason for Visit (unrecogniz ed section and content) Reason Comments Amenorrhea Reason Comments Routine Visit Reason Comments Hepatitis C Current Everyday Smoker Care Teams (unrecognized sec tion and content) Transit Planning Director Relationship Specialty Start Date End Date No Pcp, [place] [address] PCP - General Family Medicine 04/27/20 Transit Planning Director Relationship Specialty Start Date End Date No Pcp, [place] [address] PCP - General Family Medicine 04/27/20 Transit Planning Director Relationship Specialty Start Date End Date No Pcp, [place] [address] PCP - General Family Medicine 04/27/20 FOR [...] BE BASED ON THE PRIMARY CLINICAL RECORDS. [facility] [facility]. provides no warranty or guarantee of the accuracy or completeness of information in this document.
--- OUTSIDE RECORDS SUMMARY | 2025-06-14 08:03 | XMS_ITS | Clinical Summary ---
Author Organization [facility] Address [address] [place] [address] Care Team Providers Care Section Laborer Name Role Phone Unavailable Primary Care Provider [...] MG tabletIndicatio ns: headache in second trimester ([facility]) Take 1 tablet (400 mg) by mouth Daily 30 tablet 11 04/13/2025 04/13/20 Active Encounters Date Type Department Care Team Description 06/11/2025 Clinisync Result Encounter [facility] External Department Unsolicited Mee Pringle, 06/08/2025 Clinisync Result Encounter NOMS External Department Unsolicited Mee Pringle DO 06/07/2025 9:40 AM EDT Routine [facility] [place] [address] Mee Pringle, Third trimester ([facility]); 32 weeks gestation of ([facility]); H/O opioid abuse ([facility]); History of placental abruption; Diabetes mellitus screening 06/07/2025 Bamboo flowsheet [facility] [address] [place] [address] Mee Pringle, 06/05/2025 Clinisync Result Encounter NOMS External Department Unsolicited Mee Pringle, DO 05/30/2025 Abstract [facility] [address] [place] [address] Mee Pringle, DO 05/30/2025 External Result Encounter [facility] [address] [facility] [address] Mee Prnigle, DO 05/30/2025 Telephone [facility] [address] [facility] [address] Mee Pringle, DO 05/29/2025 Telephone [facility] [address] [facility] [address] Mee Pringle, DO 05/28/2025 Abstract [facility] [address] [facility] [address] Mee Pringle, DO 05/21/2025 Clinisync Result Encounter NOMS External Department Unsolicited Mee Pringle, DO 05/16/2025 11:00 AM EDT Routine [facility] [address] [place] [address] Mee Pringle, DO 29 weeks gestation of ([facility]); Third trimester ([facility]); Request for sterilization; H/O opioid abuse ([facility]); History of placental abruption; Abnormal ultrasonic finding on screening of mother, antepartum 05/16/2025 Bamboo flowsheet [facility] [address] [place] [address] Mee Pringle, DO 05/02/2025 3:20 PM EDT Routine [facility] [address] [place] [address] Mee Pringle, DO Second trimester ([facility]); 27 weeks gestation of ([facility]); Request for sterilization; H/O opioid abuse ([facility]); History of placental abruption 05/02/2025 [place] [address] Mee Pringle DO 04/18/2025 1:30 PM EDT Routine [facility] [place] [address] Mee Pringle, Second trimester ([facility]); 25 weeks gestation of ([facility]); Abnormal ultrasonic finding on screening of mother, antepartum 04/18/2025 Bamboo flowsheet [facility] [place] [address] Mee Pringle DO 04/09/2025 Clinisync Result Encounter NOMS External Department Unsolicited Paradise Olvera PA 04/09/2025 Clinisync Result Encounter NOMS External Department Unsolicited Paradise Olvera PA 04/06/2025 11:00 AM EDT Initial [facility] [place] [address] GA: 23w6d from Last 3 Months Family [...] PM EDT Routine [facility] [address] [facility] [phone] Mee Pringle DO [address] [address] Health Maintenance Due Date Last Done Comments Pap Smear 2013 Cervical Cancer Screening 2022 HPV/Cotest 2022 Influenza Vaccine (#1) 2025 Procedures Procedure Name Priority Date/Time Associated Diagnosis Comments US OB BPP W NON-STRESS 06/11/2025 11:45 AM EDT CULTURE, URINE, ROUTINE Routine 06/11/2025 8:47 AM EDT Missed menses MLR HEMOGLOBIN A1C Routine 06/08/2025 11 :34 AM EDT POCT URINALYSIS DIPSTICK Routine 06/07/2025 10:26 AM EDT Third trimester ([facility]) US OB BPP W NON-STRESS 06/05/2025 12:03 [...] 11:03 AM EDT 29 weeks gestation of ([facility]) Third trimester ([facility]) POCT URINALYSIS DIPSTICK Routine 04/18/2025 1:44 PM EDT Second trimester ([facility]) US OB ANATOMY 04/09/2025 1:01 PM EDT US OB CERVICAL LENGTH 04/09/2025 1:01 PM EDT POCT URINALYSIS DIPSTICK Routine 04/06/2025 11:13 AM EDT Missed menses POCT , URINE Routine 04/06/2025 11:13 AM EDT Missed menses from Last 3 Months Results * US OB BPP W NON-STRESS (06/11/2025 11:45 AM EDT) Only the most recent of2 resultswithin the time period is included. Anatomical Region Laterality Modality Other 06/11/2025 11:4 5 AM EDT Narrative 06/11/2025 11:48 [place] [address] Ultrasound Report Signed Patient: CARMELITA CASON MR#: [id number] : 1990 Acct:[id number] Age/Sex: 34 / F ADM Date: 06/11/25 Loc: US Attending Dr: Mee Pringle D.O. Ordering Physician: Mee Pringle D.O. Date of Service: 06/11/25 Procedure(s): US OB BPP w non-stress Accession Number(s): [id number] cc: ROMEO GAR ; Mee Pringle D.O. [place] [address] Patient Name: CARMELITA CASON MRN: H:[id number] date: 1990 Sex: F Assigned Patient Location: [facility] Current Patient Location: Accession/Order Number: [id number] Exam Date: 06/11/2025 11:44 Report Date: 06/11/2025 11:45 At the request of: MEE PRINGLE DO Procedure: US OB BPP w non-stress Biophysical profile. Reason for exam: History of placental abruption COMPARISON: 06/05/2025 TECHNIQUE: Transabdominal imaging of the gravid uterus was obtained. FINDINGS: The yacht rigger reports a BPP of 8 out of 8. ELIZABETH is normal at 21.3 cm. heart rate 142 bpm. US/US OB BPP w non-stress IMPRESSION: BPP 8 out of 8. Impression dictated by: Serafin Sorto Jr., D.O. 06/11/2025 11:45 AM Dictation Location: [place] [address] Electronically authenticated by: [id number] Y Date: 06/11/2025 11:45 Dictated By: Serafin Sorto M.D. Signed By: 06/11/25 1148 DD/ 1145 TD/TT: Grill Chef: Procedure Note Radiology, Radiologist, - 06/11/2025 [place] [address] Ultrasound Report Signed Patient: CARMELITA CASON NMR#: [id number] : 1990Acct:[id number] Age/Sex: 34 / FADM Date: 06/11/25 Loc: US Attending Dr: Mee Pringle D.O. Ordering Physician: Mee Pringle D.O. Date of Service: 06/11/25 Procedure(s): US OB BPP w non-stress Accession Number(s): [id number] cc: ROMEO GAR ; Mee Pringle D.O. The [place] [id number] Patient Name: CARMELITA CASON MRN: [facility]:[id number] date: 1990 Sex: F Assigned Patient Location: [facility] Current Patient Location: Accession/Order Number: [id number] Exam Date: 06/11/2025 11:44 Report Date: 06/11/2025 11:45 At the request of: MEE PRINGLE DO Procedure: US OB BPP w non-stress Biophysical profile. Reason for exam: History of placental abruption COMPARISON: 06/05/2025 TECHNIQUE: Transabdominal imaging of the gravid uterus was obtained. FINDINGS: The yacht rigger reports a BPP of 8 out of 8. ELIZABETH is normal at21.3 cm. heart rate 142 bpm. US/US OB BPP w non-stress IMPRESSION: BPP 8 out of 8. Impression dictated by: Serafin Sorto Jr., D.O. 06/11/2025 11:45 AM [facility]ictation [facility] Electron[facility] authenticated by: [id number] Y Date: 1:45 Dictated By: Serafin Sorto M.D. Signed By:06/11/25 1148 DD/ TD/TT: Grill Chef: us Mee Yary DO CLINIS[facility]NC IMAGING Final Result * Urine culture (06/11/2025 8:47 AM EDT) Urine Urine specimen obtained by clean catch procedure / Unknown [facility] Yary DO LAB MICROBIOLOGY - GENERAL ORDER FAYE Final Result Performing Organization Address City/[facility]/ZIP Co de Phone Number EXTERNAL LAB * MLR HEMOGLOBIN A1C (06/08/2025 11:34 AM EDT) Only the most recent of2 resultswithin the time period is included. GLYCOHEMOGLOBIN A1C 4.6 4.5 - 6.2 % [facility] Comment: ADA RECOMMENDED LIMIT 4.0 - 6.0 ADA THERAPEUTIC TARGET < 7.0 ACTION SUGGESTED > 7.0 ESTIMATED AVERAGE GLUCOSE 85 mg/dL TB 06/08/2025 11:3 4 AM EDT 06/08/2025 11:37 AM EDT Narrative CLINISYNC - 06/08/2025 12:21 PM EDT [facility] Final Result Performing Organization Address [facility] de Phone Number [facility] * (ABNORMAL) POCT urinalysis dipstick manually resulted [...] OR DERABLES Final Result * US OB 14+ weeks anatomy scan (05/30/2025 12:58 PM EDT) Anatomical Region Laterality Modality Body Ultrasound 05/30/2025 12:5 8 PM EDT Narrative 05/30/2025 12:58 PM EDT THIS EXAM WAS PERFORMED AT [facility] NAME: YOAV MUNOZ : 1990 SEX: F Accession Number: [id number] ORDERING PHYSICIAN: MEE PRINGLE REFERRING PHYSICIAN: MEE PRINGLE Coding ----- --------- Procedures 97055: Ultrasound, uterus, real time with image documentation, and maternal evaluation plus detailed anatomic examination, transabdominal approach;single or first gestation Indication ----- --------- Screening for Anatomic Survey, Hepatitis C in , Malformation of placenta- complete circumvallate,History of prior with delivery- placental abruption, Previous History ----- --------- OB History 4. Para 3 [id number] Maternal Assessment ----- --------- Physical Exam Initial [...] Cerebellum tr 40.7 mm 32w 4d 60% Dallin AC 279.3 mm 32w 0d 60% Hadlock Femur 56.9 mm 29w 6d 5% Hadlock Humerus 55.2 mm 32w 1d 67% Mara HC / AC 1.07 EFW 1,764 g 34% Hadlock EFW (lb) 3 lb EFW (oz) 14 oz EFW by: Hadlock (VLG-UK-HM-FL) Extended Tibia 48.3 mm 29w 1d 6% Mara Baked And Graphite Inspector 2.3 mm CM 9.6 mm 95% Nicolaides [...] view. RVOT view. LVOT view. 3-vessel view. 7-bnjfcc-spqzmca view. Situs. Bicaval view. Interventricular septum. Great [...] placenta noted. Recommendations ----- --------- Please see [facility] documentation from today. The patient is scheduled in four week(s) to complete anatomic survey. Subsequent follow up or other follow up as clinically determined by primary OB provider unless otherwise specified by [facility]. Results forwarded to ordering provider so they can follow up with the patient as necessary. Procedure Note Radiology, RadiologistMD - 05/30/2025 THIS EXAM WAS PERFORMED AT [facility] NAME: YOAV MUNOZ : 1990 SEX: F Accession Number: [id number] ORDERING PHYSICIAN: MEE PRINGLE REFERRING PHYSICIAN: MEE PRINGLE Coding ----- --------- Procedures 63680: Ultrasound, uterus, real time with imagedocumentation, and maternal evaluation plus detailed anatomic examination, transabdominalapproach;single or first gestation Indication ----- --------- Screening for Anatomic Survey, Hepatitis C in , Malformation ofplacenta- complete circumvallate,History of prior with delivery- placental abruption, Previous History ----- --------- OB History 4. Para 3 [id number] Maternal Assessment ----- --------- Physical Exam Initial [...] EFW (oz) 14 oz EFW by: Hadlock (AVD-SZ-SS-FL) Extended Tibia 48.3 mm 29w 1d 6% Mara Baked And Graphite Inspector 2.3 mm CM 9.6 mm 95% Nicolaides [...] 4-chamber view. RVOT view. LVOT view. 3-vessel view.4-ytbmlb-jyaglqo view. Situs. Bicaval view. Interventricular septum. Great [...] placenta noted. Recommendations ----- --------- Please see [facility] documentation from today. The patient is scheduled in four week(s) to complete anatomic survey. Subsequent follow up or other follow up as clinically determined byprimary OB provider unless otherwise specified by [facility]. Results forwarded to ordering provider so they can follow up with thepatient as necessary. us Mee Yary DO IMG OB US PROCEDURES Final Resul t * HBSAG SCREEN (05/21/2025 11:39 AM EDT) [facility] HBSAG SCREEN Negative Negative TB Comment: Performed at: [address] [id number] Pulp Screen Operator: Aric Pryor PhD, Phone: [phone] 05/21/2025 11:3 9 AM EDT 05/21/2025 11:46 AM EDT Narrative [facility] - 05/22/2025 12:09 PM EDT us Mee Yary DO LAB BLOOD ORDERABLES Final Resul t [facility] TB * RAPID PLASMA REAGIN, QUANT (05/21/2025 11:39 AM EDT) [facility] RAPID PLASMA REAGIN, QUANT Non Reactive NonRea<1: 1 titer [facility] Comment: Please Note: This test does not meet current guidelines for screening and diagnosis of syphilis. This test is intended for following treatment response in patients being treated for syphilis infection. To screen for syphilis infection, a reflex cascade that includes both RPR and a treponema-specific assay should be utilized, such as Treponema pallidum (Syphilis) Screening [place] (825622) or Rapid Plasma Reagin (RPR) Test With Reflex to Quantitative RPR and Confirmatory Treponema pallidum Antibodies (912295). Performed at: [address] [id number] Pulp Screen Operator: Aric Pryor PhD, Phone: [phone] 05/21/2025 11:3 9 AM EDT 05/21/2025 11:46 AM EDT Narrative [facility] - 05/22/2025 12:09 PM EDT LOG607 LAB BLOOD ORDERABLES Final Resul t Performing Organization Address [facility] de Phone Number [facility] * HIV AB/P24 AG WITH REFLEX (05/21/2025 11:39 AM EDT) [facility] HIV AB/P24 AG SCREEN Non Reactive Non Reactive [facility] Comment: HIV-1/HIV-2 antibodies and HIV-1 p24 antigen were NOT detected. There is no laboratory evidence of HIV infection. HIV Negative Performed at: [address] [id number] Pulp Screen Operator: Aric Pryor PhD, Phone: [phone] 05/21/2025 11:3 9 AM EDT 05/21/2025 11:46 AM EDT Narrative [facility] - 05/22/2025 5:08 AM EDT LOG607 LAB BLOOD ORDERABLES Final Resul t Performing Organization Address [facility] Co de Phone Number [facility] * (ABNORMAL) HCV ANTIBODY RFX TO QUANT PCR (05/21/2025 11:39 AM EDT) [facility] HCV AB Reactive(A) Non Reactive TB HEPATITIS C QUANTITATION 54022 . IU/mL TB HCV LOG10 4.819 . [facility] Comment:Result Units: log10 IU/mL TEST INFORMATION: Comment . [facility] Comment: The quantitative range of this assay is 15 IU/mL to 100 million IU/mL. INTERPRETATION: Comment . [facility] Comment: Positive HCV antibody screen with the presence of HCV RNA is consistent with active infection. Performed at: [address] [id number] Pulp Screen Operator: Aric Pryor PhD, Phone: [phone] Performed at: [address] [id number] Pulp Screen Operator: Miles Owens MD, Phone: [phone] 05/21/2025 11:3 9 AM EDT 05/21/2025 11:46 AM EDT Narrative [facility] - 05/24/2025 3:08 PM EDT Mee Yary DO LAB BLOOD ORDERABLES Final Resul t Performing Organization Address City/[facility]/ZIP Co de Phone Number [facility] * ALL TYPE AND SCREEN (05/21/2025 11:39 AM EDT) [facility] BLOOD TYPE B Positive TBH ANTIBODY SCREEN NEGATIVE [facility] 05/21/2025 11:3 9 AM EDT 05/21/2025 11:46 AM EDT Narrative CL[facility]YNC - 05/21/2025 1:42 PM EDT [facility] , Mailjeto DO CLINISYNC Final Result Performing Organization Address City/[facility]/ZIP Co de Phone Number [facility] * (ABNORMAL) ALL RUBELLA IGG AB (05/21/2025 11:39 AM EDT) [facility] RUBELLA ANTIBODIES, IGG <0.90(A) Immune >0.99 index TB Comment: Non-immune <0.90 Equivocal 0.90 - 0.99 Immune >0.99 Performed at: [place] [id number] [place], [place] [id number] Pulp Screen Operator: Aric Pryor PhD, Phone: [phone] 05/21/2025 11:3 9 AM EDT 05/21/2025 11:46 AM EDT Narrative [facility] - 05/24/2025 3:08 PM EDT Mee Pringle DO CLINISYNC Final Result [facility] TB * (ABNORMAL) ALL CBC WITH AUTO DIFF (05/21/2025 11:39 AM EDT) TB WBC 11.8(H) 4.0 - 11.0 10 [...] CLINISYNC - 05/21/2025 12:10 PM EDT Mee Yary DO CLINISYNC Final Result Performing Organization Address [facility] Co de Phone Number [facility] * (ABNORMAL) BUPRENORPHINE CONFIRM, URINE (05/21/2025 11:24 AM EDT) BUPRENORPHINE Positive( A) . [facility] BUPRENORPHINE CONF, MS, UR 525 Cutoff=10 ng/mL [facility] NORBUPRENORPHINE Positive( A) . [facility] NORBUPRENORPHINE CONF, MS,UR 905 Cutoff=10 ng/mL [facility] Comment: Performed at: [facility] [place] [address] [place] [id number] Pulp Screen Operator: Soledad Mendieta PhD, Phone: [phone] 05/21/2025 11:2 4 AM EDT 05/21/2025 12:08 PM EDT Narrative [facility] - 05/24/2025 12:09 PM EDT Mee Yary DO LAB BLOOD ORDERABLES Final Resul t Performing Organization Address City/[facility]/ZIP Co de Phone Number [facility] * (ABNORMAL) TB[facility] DRUG SCREEN [...] Narrative CLINISYNC - 05/21/2025 12:05 PM EDT [facility] Yary DO CLINISYNC Final Result [facility] * US OB CERVICAL LENGTH (04/09/2025 1:01 PM EDT) Anatomical Region Laterality Modality Other 04/09/2025 1:01 PM EDT Narrative 04/09/2025 1:04 [place] [address] Ultrasound Report Signed Patient: CARMELITA CASON MR#: [id number] : 1990 Acct:[id number] Age/Sex: 34 / F ADM Date: 04/09/25 Loc: US Attending Dr: Paradise Olvera Ordering Physician: Paradise Olvera Date of Service: 04/09/25 Procedure(s): US OB cervical length Accession Number(s): [id number] cc: Paradise Olvera; ROMEO GAR [place] [address] Patient Name: CARMELITA CASON MRN: [id number] date: 1990 Sex: F Assigned Patient Location: Current Patient Location: US Accession/Order Number: [id number] Exam Date: 04/09/2025 12:20 Report Date: 04/09/2025 [...] all 4 extremities were surveyed by the yacht rigger. No abnormalities were detected. The stomach, bladder, [...] Zelaya M.D. 04/09/2025 1:01 PM Dictation Location: [place] [address] Electronically authenticated by: [id number] Y Date: 04/09/2025 13:01 Dictated By: Raine Zelaya M.D. Signed By: 04/09/25 1304 DD/ 1301 TD/TT: Grill Chef: Procedure Note Radiology, Radiologist, - 04/09/[address] [address] Ultrasound Report Signed Patient: CARMELITA CASON NMR#: [id number] : 1990Acct:[id number] Age/Sex: 34 / FADM Date: 04/09/25 Loc: US Attending Dr: Paradise Olvera Ordering Physician: Paradise Olvera Date of Service: 04/09/25 Procedure(s): US OB cervical length Accession Number(s): [id number] cc: Paradise Olvera; RMOEO GAR The [address] [address] Patient Name: CARMELITA CASON MRN: [id number] date: 1990 Sex: F Assigned Patient Location: US Current Patient Location: US Accession/Order Number: [id number] Exam Date: 04/09/2025 12:20 Report Date: 04/09/2025 [...] and all 4 extremities weresurveyed by the yacht rigger. No abnormalities were detected. The stomach,bladder, kidneys, [...] Zelaya M.D. 04/09/2025 1:01 PM Dictation Location: [place] [address] Electronically authenticated by: [id number] Y Date: 3:01 Dictated By: Raine Zelaya M.D. Signed By:04/09/25 1304 DD/ 1301 TD/TT: Grill Chef: us Paradise MORROW CLINISYNC IMAGING Final Result * US OB ANATOMY (04/09/2025 1:01 PM EDT) Anatomical Region Laterality Modality Other 04/09/2025 1:01 PM EDT Narrative 04/09/2025 1:04 [place] [address] Ultrasound Report Signed Patient: CARMELITA CASON MR#: [id number] : 1990 Acct:[id number] Age/Sex: 34 / F ADM Date: 04/09/25 Loc: US Attending Dr: Paradise Olvera Ordering Physician: Paradise Olvera Date of Service: 04/09/25 Procedure(s): US OB anatomy Accession Number(s): [id number] cc: Paradise Olvera; ROMEO GAR [place] [id number] Patient Name: CARMELITA CASON MRN: [id number] date: 1990 Sex: F Assigned Patient Location: US Current Patient Location: US Accession/Order Number: [id number] Exam Date: 04/09/2025 12:20 Report Date: 04/09/2025 [...] all 4 extremities were surveyed by the yacht rigger. No abnormalities were detected. The stomach, bladder, [...] Zelaya M.D. 04/09/2025 1:01 PM Dictation Location: [place] [address] Electronically authenticated by: [id number] Y Date: 04/09/2025 13:01 Dictated By: Raine Zelaya M.D. Signed By: 04/09/25 1304 DD/ 1301 TD/TT: Grill Chef: Procedure Note Radiology, Radiologist, MD - 04/09/[address] [address] Ultrasound Report Signed Patient: CARMELITA CASON [facility]#: [id number] : 1990Acct:[id number] Age/Sex: 34 / FADM Date: 04/09/25 Loc: US Attending Dr: Paradise Olvera Ordering Physician: Paradise Olvera Date of Service: 04/09/25 Procedure(s): US OB anatomy Accession Number(s): [id number] cc: Paradise Olvera; ROMEO GAR [address] [address] Patient Name: CARMELITA CASON MRN: [id number] date: 1990 Sex: F Assigned Patient Location: US Current Patient Location: US Accession/Order Number: [id number] Exam Date: 04/09/2025 12:20 Report Date: 04/09/2025 [...] and all 4 extremities weresurveyed by the yacht rigger. No abnormalities were detected. The stomach,bladder, kidneys, [...] Zelaya M.D. 04/09/2025 1:01 PM Dictation Location: [place] [address] Electronically authenticated by: [id number] Y Date: 3:01 Dictated By: Raine Zelaya M.D. Signed By:04/09/25 1304 DD/ 1301 TD/TT: Grill Chef: Paradise MORROW CL[facility] IMAGING Final Result * (ABNORMAL) POCT , urine manually resulted (04/06/2025 11:13 AM EDT) Preg Test, Ur Positive Negative Urine 04/06/2025 11:1 3 AM EDT us Mee Pringle DO POINT OF CARE TEST ENTER/EDIT OR DERABLES Final Result from Last 3 Months Insurance [employer]
--- OUTSIDE RECORDS SUMMARY | 2025-06-14 08:03 | XMS_ITS ---
Author Organization [facility] Address [address] [place] [address] Care Team Providers Care Medicaid Plan Compliance Director Name Role Phone Unavailable Primary Care Provider Unavailabl e Comprehensive Maternal Care (CMC) Status:Identified (Enrolling) Start date:06/13/2025 Enrollment reason:Identified by Health Plan Case Team Name Relationship Phone Paradise Bangura LPN(Responsible Staff) [facility] [phone] Continued Care and Services Coordination
--- OUTSIDE RECORDS SUMMARY | 2025-06-14 08:03 | XMS_ITS | Clinical Summary ---
Author Organization [facility] [employer] [facility] Address [id number] [address] [place] [address] Care Team Providers Care Java Developer Consultant Name Role Phone No Pcp, No Pcp [...] AM EDT Office Visit Maternal- Medicine at [facility] [address] [place] [phone] Nohemy Hernandez MD History of placental abruption (Primary Dx); Hepatitis C virus infection without hepatic coma, unspecified chronicity 05/30/2025 9:15 AM EDT - 05/30/2025 11:59 PM EDT Hospital Encounter [facility] - [facility] US Imaging [address] [place] [phone] Screening, , for anatomic survey Discharge Disposition: Home 05/30/2025 Orders Only Maternal- Medicine at [facility] [address] [place] [phone] Paradise Raya LPN 05/30/2025 Travel 05/30/2025 Abstract Maternal- Medicine at [facility] [address] [place] [phone] Nohemy Hernandez MD 05/30/2025 Orders Only Maternal- Medicine at [facility] [address] [place] [phone] Ref Prov, Not In System 05/30/2025 Abstract Maternal- Medicine at [facility] [address] [place] [phone] Nohemy Hernandez MD from Last 3 Months [...] Description 07/05/2025 1:00 PM EDT Appointment [facility] US Imaging [address] [place] [phone] 07/05/2025 2:30 PM EDT Office Visit Maternal- Medicine at [facility] [address] [place] [phone] Tasia Dowd MD [address] [facility] [address] [place] [address] Health Maintenance Due Date Last Done Comments [...] Name Priority Date/Time Associated Diagnosis Comments US [facility] COMPREHENSIVE ANATOMIC SURVEY Routine 05/30/2025 10:52 [...] from Last 3 Months Results * US [facility] COMPREHENSIVE ANATOMIC SURVEY (05/30/2025 10:52 AM EDT) Anatomical Region Laterality Modality OB-PAUNCH TRIMMER Ultrasound 05/30/2025 9:40 AM EDT Narrative 05/30/2025 12:58 PM EDT NAME: YOAV MUNOZ : 1990 SEX: F Accession Number: [id number] ORDERING PHYSICIAN: MEE PRINGLE REFERRING PHYSICIAN: MEE PRINGLE Coding ----- --------- Procedures 96951: Ultrasound, uterus, real time with image documentation, and maternal evaluation plus detailed anatomic examination, transabdominal approach;single or first gestation Indication ----- --------- Screening for Anatomic Survey, Hepatitis C in , Malformation of placenta- complete circumvallate,History of prior with delivery- placental abruption, Previous History ----- --------- OB History 4. Para 3 [id number] Maternal Assessment ----- --------- Physical Exam Initial [...] EFW (oz) 14 oz EFW by: Hadlock (WHO-YO-QC-FL) Extended Tibia 48.3 mm 29w 1d 6% [facility] Doctor 2.3 mm CM 9.6 mm 95% Nicolaides [...] view. RVOT view. LVOT view. 3-vessel view. 5-nsxhdz-lbnvnwg view. Situs. Bicaval view. Interventricular septum. Great [...] placenta noted. Recommendations ----- --------- Please see [facility] documentation from today. The patient is scheduled in four week(s) to complete anatomic survey. Subsequent follow up or other follow up as clinically determined by primary OB provider unless otherwise specified by [facility]. Results forwarded to ordering provider so they can follow up with the patient as necessary. Procedure Note Nohemy Hernandez MD - 05/30/2025 NAME: YOAV MUONZ : 1990 SEX: F Accession Number: [id number] ORDERING PHYSICIAN: MEE PRINGLE REFERRING PHYSICIAN: MEE PRINGLE Coding ----- --------- Procedures 13517: Ultrasound, uterus, real time with imagedocumentation, and maternal evaluation plus detailed anatomic examination, transabdominalapproach;single or first gestation Indication ----- --------- Screening for Anatomic Survey, Hepatitis C in , Malformation ofplacenta- complete circumvallate,History of prior with delivery- placental abruption, Previous History ----- --------- OB History 4. Para 3 [id number] Maternal Assessment ----- --------- Physical Exam Initial [...] EFW (oz) 14 oz EFW by: Hadlock (LIP-QR-DL-FL) Extended Tibia 48.3 mm 29w 1d 6% [facility] Doctor 2.3 mm CM 9.6 mm 95% Nicolaides [...] 4-chamber view. RVOT view. LVOT view. 3-vessel view.9-ywotkp-bxorxhv view. Situs. Bicaval view. Interventricular septum. Great [...] placenta noted. Recommendations ----- --------- Please see [facility] documentation from today. The patient is scheduled in four week(s) to complete anatomic survey. Subsequent follow up or other follow up as clinically determined byprimary OB provider unless otherwise specified by M. Results forwarded to ordering provider so they can follow up with thepatient as necessary. us Mee Pringle DO [facility] US ORDERABLES Final Result * Ultrasound - [...] ORDERABLES Yun l Result Performing Organization Address City/[facility]/ZIP Co de Phone Number MANUALLY TRANSCRIBED RESULTS * Rubella IGG immune status (05/21/2025) Rubella immune IgG <0.90 MANUALLY TRANSCRIBED RESULTS Blood Venous blood / Unknown us Not In System Ref Prov LAB BLOOD ORDERABLES Yun l Result Performing Organization Address City/[facility]/ZIP Co de Phone Number MANUALLY TRANSCRIBED RESULTS * Syphilis Total (Unknown Syphilis Status) (05/21/2025) Syphilis NON-REACTI VE MANUALLY TRANSCRIBED RESULTS Blood Venous blood / Unknown us Not In System Ref Prov LAB BLOOD ORDERABLES Yun l Result Performing Organization Address City/[facility]/ZIP Co de Phone Number MANUALLY TRANSCRIBED RESULTS * Hepatitis C(HCV) Ab w/ Reflex to PCR (05/21/2025) Hepatitis C Antibody REACTIVE MANUALLY TRANSCRIBED RESULTS Blood Venous blood / Unknown us Not In System Ref Prov LAB BLOOD ORDERABLES Yun l Result Performing Organization Address City/[facility]/ZIP Co de Phone Number MANUALLY TRANSCRIBED [...] ORDERABLES Final Re sult Performing Organization Address [facility] de Phone Number MANUALLY TRANSCRIBED RESULTS * Hepatitis B surface antigen (05/21/2025) Hepatitis B Surface Antigen NEGATIVE MANUALLY TRANSCRIBED RESULTS Blood Venous blood / Unknown us Not In System Ref Prov LAB BLOOD ORDERABLES Yun l Result Performing Organization Address [facility] de Phone Number MANUALLY TRANSCRIBED RESULTS * CBC without diff (05/21/2025) Hemoglobin 10.8 MANUALLY TRANSCRIBED RESULTS Hematocrit 30.6 MANUALLY TRANSCRIBED RESULTS Rbc Mcv (Fl) By Automated Count 79.3 MANUALLY TRANSCRIBED RESULTS Platelets 176 MANUALLY TRANSCRIBED RESULTS Blood Venous blood / Unknown us Not In System Ref Prov LAB BLOOD ORDERABLES Yun l Result Performing Organization Address [facility] de Phone Number MANUALLY TRANSCRIBED RESULTS * Type and screen (05/21/2025) Abo/Rh(D) B Positive MANUALLY TRANSCRIBED RESULTS Antibody Screen NEGATIVE MANUALLY TRANSCRIBED RESULTS Blood Venous blood / Unknown us Not In System Ref Prov BLOOD BANK TEST ORDERABLE S Final Result Performing Organization Address [facility] de Phone Number MANUALLY TRANSCRIBED RESULTS * Hemoglobin A1c (05/21/2025) Hemoglobin A1C 4.7 4.0 - 6.0 % MANUALLY TRANSCRIBED RESULTS Blood Venous blood / Unknown us Nohemy Hernandez MD LAB BLOOD ORDERABLES Final Re sult MANUALLY TRANSCRIBED RESULTS from Last 3 Months Insurance [place] [employer] Care Teams Java Developer Consultant Relationship Specialty Start Date End Date No Pcp, No Pcp RUY Stephen [phone] PCP - General Family Medicine 04/27/20
--- OUTSIDE RECORDS SUMMARY | 2025-06-14 08:03 | XMS_ITS | Encounter Summary ---
Author Organization [facility] Address [address] [place] [address] Care Team Providers Care Lace Pinner Name Role Phone Unavailable Primary Care Provider Unavailabl e Encounter Details Date Type Department Care Team (Late st Contact Info) Description 07/09/2015 Abstract [facility] [address] [facility] [place] [address] Tony Pringle DO [address], [facility] Social History Tobacco Use Types Packs/Day [...] EDT Routine [facility]ALE[facility] CAMPBELL [address] [place] [address] Tony Pringle DO [address], [facility] documented as of this encounter Visit Diagnoses Not on filedocumented in this encounter
--- OUTSIDE RECORDS SUMMARY | 2025-06-14 08:03 | XMS_ITS | Encounter Summary ---
Author Organization [facility] Address [address] [place] [address] Care Team Providers Care Press Washer Name Role Phone Unavailable Primary Care Provider Unavailabl e Encounter Details Date Type Department Care Team (Late st Contact Info) Description 06/11/2025 Clinisync Result Encounter [facility] External Department Unsolicited Mee Pringle DO [address] [place], [place] [id number] Social History Tobacco Use Types Packs/Day Years [...] Routine [facility] [address] [place] [address] Mee Pringle DO [address] [place] [address] documented as of this encounter Procedures Procedure Name Priority Date/Time Associated Diagnosis Comments US OB BPP W NON-STRESS 06/11/2025 11:45 AM EDT documented in this encounter Results * US OB BPP W NON-STRESS (06/11/2025 11:45 AM EDT) Anatomical Region Laterality Modality Other 06/11/2025 11:4 5 AM EDT Narrative 06/11/2025 11:48 [place] [address] Ultrasound Report Signed Patient: CARMELITA YANEZ MR#: [id number] : 1990 Acct:[id number] Age/Sex: 34 / F ADM Date: 06/11/25 Loc: US Attending Dr: Mee Pringle D.O. Ordering Physician: Mee Pringle D.O. Date of Service: 06/11/25 Procedure(s): US OB BPP w non-stress Accession Number(s): [id number] cc: ROMEO GAR ; Mee Pringle D.O. [place] [address] Patient Name: CARMELITA YANEZ MRN: [id number] date: 1990 Sex: F Assigned Patient Location: [facility] Current Patient Location: Accession/Order Number: [id number] Exam Date: 06/11/2025 11:44 Report Date: 06/11/2025 11:45 At the request of: MEE PRINGLE DO Procedure: US OB BPP w non-stress Biophysical profile. Reason for exam: History of placental abruption COMPARISON: 06/05/2025 TECHNIQUE: Transabdominal imaging of the gravid uterus was obtained. FINDINGS: The combine inspector reports a BPP of 8 out of 8. ELIZABETH is normal at 21.3 cm. heart rate 142 bpm. US/US OB BPP w non-stress IMPRESSION: BPP 8 out of 8. Impression dictated by: Serafin Sorto Jr., D.O. 06/11/2025 11:45 AM Dictation Location: [place] [address] Electronically authenticated by: [id number] Y Date: 06/11/2025 11:45 Dictated By: Serafin Sorto M.D. Signed By: 06/11/25 1148 DD/ 1145 TD/TT: Business Development Director: Procedure Note Radiology, Radiologist, MD - 06/11/2025 [place] [address] Ultrasound Report Signed Patient: CARMELITA YANEZ NMR#: [id number] : 1990Acct:[id number] Age/Sex: 34 / FADM Date: 06/11/25 Loc: US Attending Dr: Mee Pringle D.O. Ordering Physician: Mee Pringle D.O. Date of Service: 06/11/25 Procedure(s): US OB BPP w non-stress Accession Number(s): [id number] cc: ROMEO GAR ; Mee Pringle D.O. The [place] [address] Patient Name: CARMELITA YANEZ MRN: [id number] date: 1990 Sex: F Assigned Patient Location: [facility] Current Patient Location: Accession/Order Number: [id number] Exam Date: 06/11/2025 11:44 Report Date: 06/11/2025 11:45 At the request of: MEE PRINGLE DO Procedure: US OB BPP w non-stress Biophysical profile. Reason for exam: History of placental abruption COMPARISON: 06/05/2025 TECHNIQUE: Transabdominal imaging of the gravid uterus was obtained. FINDINGS: The combine inspector reports a BPP of 8 out of 8. ELIZABETH is normal at21.3 cm. heart rate 142 bpm. US/US OB BPP w non-stress IMPRESSION: BPP 8 out of 8. Impression dictated by: Serafin Sorto Jr., D.O. 06/11/2025 11:45 AM [facility] by: [id number] Y Date: 1:45 Dictated By: Serafin Sorto M.D. Signed By:06/11/25 1148 DD/ 44 TD/TT: Business Development Director: us Mee Yary DO [facility] Final Result documented in this encounter Visit Diagnoses Not on filedocumented in this encounter
[2025-06-14 08:05] VITALS: BP 111/68; PULSE 89
== END 2025-06-14 08:40 | disposition home or self-care (01) ==
LOC: FBCO 08:00 → FBC 08:02
PROVIDERS: PCP Nurse Practitioner Family; Visit Provider Obstetrics & Gynecology
DX: O26.893 Other specified pregnancy related conditions, third trimester (principal); Z3A.33 33 weeks gestation of pregnancy
CPT/HCPCS: 59025

== ENCOUNTER 2025-06-14 22:46 | Observation (INO) | payer OTHER, SELFPAY ==
--- OUTSIDE RECORDS SUMMARY | 2025-06-14 22:50 | XMS_ITS | CCD ---
Author Organization [facility] Care Team Providers Care Lead Systems Analyst Name Role Phone Sidney Nava Unavailable Unavailable [...] Translations: [PENICILLINS] Drug allergy (disorder) 3 [facility] Repository (19 sources) Penicillin G Drug Allergy 5 [facility] Healthcare Work Phone: (3 sources) Penicillins Propensity to adverse reactions to drug 0 [facility] (4 sources) Penicillins Propensity to adverse reactions 0 [facility] Healthcare Medications Current Medications Medication Drug [...] MG tablet Indications: headache in second trimester ([facility]) Take 1 tablet (400 mg) by mouth [...] 07-31-2022 Episodic Other aftercare (5 sources) Other alf (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 therapy; Translations: [[facility] CURRENT DRUG [facility]ERAPY] Onset: 07-31-2022 Episodic Other [...] US OB BPP W NON-STRESS on 06-11-2025 [place] [address] Ultrasound Report Signed Patient: CARMELITA CASON MR#: [id number] : 1990 Acct:[id number] Age/Sex: 34 / F ADM Date: 06/11/25 Loc: US Attending Dr: Mee Pringle D.O. Ordering Physician: Mee Pringle D.O. Date of Service: 06/11/25 Procedure(s): US OB BPP w non-stress Accession Number(s): [id number] cc: ROMEO GAR ; Mee Pringle D.O. [place] [address] Patient Name: CARMELITA CASON MRN: [facility]:[id number] date: 1990 Sex: F Assigned Patient Location: [facility] Current Patient Location: Accession/Order Number: [id number] Exam Date: 06/11/2025 11:44 Report Date: 06/11/2025 11:45 At the request of: MEE PRINGLE DO Procedure: US OB BPP w non-stress Biophysical profile. Reason for exam: History of placental abruption COMPARISON: 06/05/2025 TECHNIQUE: Transabdominal imaging of the gravid uterus was obtained. FINDINGS: The venipuncturist reports a BPP of 8 out of 8. ELIZABETH is normal at 21.3 cm. heart rate 142 bpm. US/US OB BPP w non-stress IMPRESSION: BPP 8 out of 8. Impression dictated by: Serafin Sorto Jr., D.O. 06/11/2025 11:45 AM Dictation Location: [place] [address] Electronically authenticated by: [id number] Y Date: 06/11/2025 11:45 Dictated By: Serafin Sorto M.D. Signed By: 06/11/25 1148 DD/ 1145 TD/TT: [employer] Racker: [facility] Radiology, Radiologist, - 06/11/2025 [place] [address] Ultrasound Report Signed Patient: CARMELITA CASON MR#: [id number] : 1990 Acct:[id number] Age/Sex: 34 / F ADM Date: 06/11/25 Loc: US Attending Dr: Mee Pringle D.O. Ordering Physician: Mee Pringle D.O. Date of Service: 06/11/25 Procedure(s): US OB BPP w non-stress Accession Number(s): [id number] cc: ROMEO GAR ; Mee Pringle D.O. [address] [place] [address] Patient Name: CARMELITA CASON MRN: [id number]:[id number] date: 1990 Sex: F Assigned Patient Location: [facility] Current Patient Location: Accession/Order Number: [id number] Exam Date: 06/11/2025 11:44 Report Date: 06/11/2025 11:45 At the request of: MEE PRINGLE DO Procedure: US OB BPP w non-stress Biophysical profile. Reason for exam: History of placental abruption COMPARISON: 06/05/2025 TECHNIQUE: Transabdominal imaging of the gravid uterus was obtained. FINDINGS: The venipuncturist reports a BPP of 8 out of 8. ELIZABETH is normal at 21.3 cm. heart rate 142 bpm. US/US OB BPP w non-stress IMPRESSION: BPP 8 out of 8. Impression dictated by: Serafin Sorto Jr., D.O. 06/11/2025 11:45 AM Dictation Location: [place] [address] Electronically authenticated by: [id number] Y Date: 06/11/2025 11:45 Dictated By: Serafin Sorto M.D. Signed By: 06/11/25 1148 DD/ 1145 TD/TT: [employer] Racker: [facility] Radiology Study observation (narrative) [facility] US OB BPP W NON-STRESS Ordered By: Radiologist Radiology on 06-11-2025 [facility] Work Phone: MLR HEMOGLOBIN A1Con 025 Glucose [Mass/Vol] 85 mg/dL [facility] HbA1c (Bld) [Mass fraction] 4.6 % 4.5 - 6.2 % [facility] Comment on above: ADA RECOMMENDED LIMI T 4.0 - 6.0 ADA THERAPEUTIC TARGET < 7.0 ACTION SUGGESTED > 7.0 [facility] Urinalysis macro (dipstick) panel (U)on 06-07-2025 Bilirubin, UA Negative Negative - 4(70) +++ mg/dL [facility] Blood, UA Negative Negative - 50 Amador/mcL [facility] Clarity, UA Clear [facility] Color, UA Yellow [facility] Glucose, UA Negative Negative - 1999(110) ++++ mg/dL [facility] Interpretation and review of laboratory results Abnormal [facility] Ketones, UA Negative Negative - 160(16) ++++ mg/dL [facility] Leukocytes, UA 3+ Negative - 500+++ Camille/mcL [facility] Nitrite, UA Negative Negative - Positive [facility] pH, UA 7.5 5 - 9 [facility] Protein, UA Negative Negative - 1999(20) ++++ mg/dL [facility] Spec Grav, UA 1.01 1 - 1.03 [facility] Urobilinogen, UA 1.0 0.2 - 12 mg/dL [facility] US OB BPP W NON-STRESS on 06-05-2025 [place] [address] Ultrasound Report Signed Patient: CARMELITA CASON MR#: [id number] : 1990 Acct:[id number] Age/Sex: 34 / F ADM Date: 06/05/25 Loc: US Attending Dr: Mee Pringle D.O. Ordering Physician: Mee Pringle D.O. Date of Service: 06/05/25 Procedure(s): US OB BPP w non-stress Accession Number(s): [id number] cc: ROMEO GAR ; Mee Pringle D.O. [place] [id number] Patient Name: CARMELITA CASON MRN: [facility]:[id number] date: 1990 Sex: F Assigned Patient Location: US Current Patient Location: Accession/Order Number: [id number] Exam Date: 06/05/2025 11:53 Report Date: 06/05/2025 12:03 At the request of: MEE PRINGLE DO Procedure: US OB BPP w non-stress Biophysical profile. Reason for exam: History of opioid abuse COMPARISON: None TECHNIQUE: Transabdominal imaging of the gravid uterus was obtained. FINDINGS: The venipuncturist reports a BPP of 8 out of 8. ELIZABETH is normal at 21 cm. heart rate 135 bpm. US/US OB BPP w non-stress IMPRESSION: BPP 8 out of 8. Impression dictated by: Serafin Sorto Jr., D.O. 06/05/2025 12:03 PM Dictation Location: [place] [address] Electronically authenticated by: [id number] Y Date: 06/05/2025 12:03 Dictated By: Serafin Sorto M.D. Signed By: 06/05/25 1206 DD/ 1203 TD/TT: [employer] Racker: [facility] Radiology, Radiologist, - 06/05/2025 [place] [address] Ultrasound Report Signed Patient: CARMELITA CASON MR#: [id number] : 1990 Acct:[id number] Age/Sex: 34 / F ADM Date: 06/05/25 Loc: US Attending Dr: Mee Pringle D.O. Ordering Physician: Mee Pringle D.O. Date of Service: 06/05/25 Procedure(s): US OB BPP w non-stress Accession Number(s): [id number] cc: ROMEO GAR ; Mee Pringle D.O. The [place] [address] Patient Name: CARMELITA CASON MRN: [facility]:[id number] date: 1990 Sex: F Assigned Patient Location: US Current Patient Location: Accession/Order Number: [id number] Exam Date: 06/05/2025 11:53 Report Date: 06/05/2025 12:03 At the request of: MEE PRINGLE DO Procedure: US OB BPP w non-stress Biophysical profile. Reason for exam: History of opioid abuse COMPARISON: None TECHNIQUE: Transabdominal imaging of the gravid uterus was obtained. FINDINGS: The venipuncturist reports a BPP of 8 out of 8. ELIZABETH is normal at 21 cm. heart rate 135 bpm. US/US OB BPP w non-stress IMPRESSION: BPP 8 out of 8. Impression dictated by: Serafin Sorto Jr., D.O. 06/05/2025 12:03 PM Dictation Location: [facility] Electronically authenticated by: [id number] Y Date: 06/05/2025 12:03 Dictated By: Serafin Sorto M.D. Signed By: 06/05/25 1206 DD/ 1203 TD/TT: [employer] Racker: [facility] Radiology Study observation (narrative) [facility] OB BPP W NON-STRESS Ordered By: Radiologist Radiology on 06-05-2025 [facility] Work Phone: CBC without diffOrdered By: Paradise [...] Negative [facility] Cocaine Metabolite Negative [facility] Methadone Negative [facility] Opiates Negative [facility] Oxycodone Negative [facility] Phencyclidine Negative [facility] Thc Marijuana, Urine Negative [facility] HBV surface Ag IA on 05-21 Hepatitis B Surface Antigen Negative [facility] HCV Ab IA Qlon 05-21-2025 HCV Ab Ql (S) Reactive [facility] HIV 1+2 Ab+HIV1 p24 Ag IA Ql on 05-21-2025 HIV 1&2 AB/AG Non-Reactive [facility] Hemoglobin A1con 05-21-2025 HbA1c (Bld) [Mass fraction] 4.7 % 4.0 - 6.0 % [facility] No Panel Informationon 05-21 [facility] Rubella IGG immune statuson 05-21-2025 Rubella immune IgG [facility] T. pallidum IgG+IgM IA Ql (S )on 05-21-2025 Syphilis Non-Reactive [facility] DRUG SCREEN RAPID (URINE )on 05-21-2025 AMPHETAMINE SCREEN URINE Negative NEGATIVE [facility] BARBITURATES SCREEN URINE Negative NEGATIVE [facility] BENZODIAZEPINES SCREEN URINE Negative NEGATIVE [facility] BUPRENORPHINE SCREEN URINE Positive Abnormal NEGATIVE [facility] Healthcare Comment on above: DRUG CLASS [...] 300 ng/mL CANNABINOID SCREEN URINE Negative NEGATIVE [facility] COCAINE SCREEN URINE Negative NEGATIVE [facility] Interpretation and review of laboratory results Abnormal [facility] METHADONE SCREEN URINE Negative NEGATIVE NO [facility] METHAMPHETAMINES SCREEN URINE Negative NEGATIVE [facility] OPIATE SCREEN URINE Negative NEGATIVE [facility] OXYCODONE SCREEN URINE Negative NEGATIVE NO [facility] PHENCYCLIDINE SCREEN URINE Negative NEGATIVE [facility] TRICYCLIC ANTIDEPRESSANT URINE Negative NEGATIVE [facility] Type and screenon 05-21-2025 Abo/Rh(D) Positive [facility] Urinalysis macro (dipstick) panel (U)on 05-16-2025 Bilirubin, UA Negative Negative - 4(70) +++ mg/dL [facility] Blood, UA Negative Negative - 50 Amador/mcL [facility] Clarity, UA Clear [facility] Color, UA Yellow [facility] Glucose, UA Negative Negative - 1999(110) ++++ mg/dL [facility] Interpretation and review of laboratory results Abnormal [facility] Ketones, UA Negative Negative - 160(16) ++++ mg/dL [facility] Leukocytes, UA Moderate Negative - 500+++ Camille/mcL [facility] Nitrite, UA Negative Negative - Positive [facility] pH, UA 6.5 5 - 9 [facility] Protein, UA Negative Negative - 1999(20) ++++ mg/dL [facility] Spec Grav, UA 1.02 1 - 1.03 [facility] Urobilinogen, UA 1.0 0.2 - 12 mg/dL [facility] Urinalysis macro (dipstick) panel (U)on 04-18-2025 Bilirubin, UA Negative Negative - 4(70) +++ mg/dL [facility] Blood, UA Negative Negative - 50 Amador/mcL [facility] Clarity, UA Clear [facility] Color, UA Yellow [facility] Glucose, UA Negative Negative - 1999(110) ++++ mg/dL [facility] Interpretation and review of laboratory results Abnormal [facility] Ketones, UA Negative Negative - 160(16) ++++ mg/dL [facility] Leukocytes, UA Positive Negative - 500+++ Camille/mcL [facility] Nitrite, UA Negative Negative - Positive [facility] pH, UA 7.5 5 - 9 [facility] Protein, UA Negative Negative - 1999(20) ++++ mg/dL [facility] Spec Grav, UA 1.015 1 - 1.03 [facility] Urobilinogen, UA 0.2 0.2 - 12 mg/dL [facility] No Panel InformationOrdered By: Radiologist Radiology on 04-09-2025 [facility] Work Phone: No Panel Informationon 04-09 Radiology Study observation (narrative) [facility] US OB ANATOMYon 04-09-[address] [address] Ultrasound Report Signed Patient: CARMELITA CASON MR#: [id number] : 1990 Acct:[id number] Age/Sex: 34 / F ADM Date: 04/09/25 Loc: US Attending Dr: Paradise Olvera Ordering Physician: Paradise Olvrea Date of Service: 04/09/25 Procedure(s): US OB anatomy Accession Number(s): [id number] cc: Paradies Olvera; ROMEO GAR [address] [address] Patient Name: CARMELITA CASON MRN: [id number] date: 1990 Sex: F Assigned Patient Location: US Current Patient Location: US Accession/Order Number: [id number] Exam Date: 04/09/2025 12:20 Report Date: 04/09/2025 [...] all 4 extremities were surveyed by the venipuncturist. No abnormalities were detected. The stomach, bladder, [...] 04/09/2025 1:01 PM Dictation Location: [place] [address] Electronically authenticated by: [id number] Y Date: 04/09/2025 13:01 Dictated By: Raine Zelaya M.D. Signed By: 04/09/25 1304 DD/ 1301 TD/TT: [employer] Racker: [facility] Radiology, Radiologist, - 04/09/2025 [place] [address] Ultrasound Report Signed Patient: CARMELITA CASON MR#: [id number] : 1990 Acct:[id number] Age/Sex: 34 / F ADM Date: 04/09/25 Loc: US Attending Dr: Paradise Olvera Ordering Physician: Paradise Olvera Date of Service: 04/09/25 Procedure(s): US OB anatomy Accession Number(s): [id number] cc: Paradise Olvera; ROMEO GAR [place] [id number] Patient Name: CARMELITA CASON MRN: [facility]:[id number] date: 1990 Sex: F Assigned Patient Location: US Current Patient Location: US Accession/Order Number: [id number] Exam Date: 04/09/2025 12:20 Report Date: 04/09/2025 [...] all 4 extremities were surveyed by the venipuncturist. No abnormalities were detected. The stomach, bladder, [...] 04/09/2025 1:01 PM Dictation Location: [place] [address] Electronically authenticated by: [id number] Y Date: 04/09/2025 13:01 Dictated By: Raine Zelaya M.D. Signed By: 04/09/25 1304 DD/ 1301 TD/TT: [employer] Racker: [facility] [place] [address] Ultrasound Report Signed Patient: CARMELITA CASON MR#: [id number] : 1990 Acct:[id number] Age/Sex: 34 / F ADM Date: 04/09/25 Loc: US Attending Dr: Paradise Olvera Ordering Physician: Paradise Olvera Date of Service: 04/09/25 Procedure(s): US OB cervical length Accession Number(s): [id number] cc: Pardaise Olvera; ROMEO GAR [address] [address] Patient Name: CARMELITA CASON MRN: [id number]:[id number] date: 1990 Sex: F Assigned Patient Location: US Current Patient Location: US Accession/Order Number: [id number] Exam Date: 04/09/2025 12:20 Report Date: 04/09/2025 [...] all 4 extremities were surveyed by the venipuncturist. No abnormalities were detected. The stomach, bladder, [...] 04/09/2025 1:01 PM Dictation Location: [place] [address] Electronically authenticated by: [id number] Y Date: 04/09/2025 13:01 Dictated By: Raine Zelaya M.D. Signed By: 04/09/25 1304 DD/ 1301 TD/TT: [employer] Racker: [facility] Radiology, Radiologist, MD - 04/09/2025 [place] [address] Ultrasound Report Signed Patient: CARMELITA CASON MR#: [id number] : 1990 Acct:[id number] Age/Sex: 34 / F ADM Date: 04/09/25 Loc: US Attending Dr: Paradise Olvera Ordering Physician: Paradise Olvera Date of Service: 04/09/25 Procedure(s): US OB cervical length Accession Number(s): [id number] cc: Paradise Olvera; ROMEO GAR [place] [address] Patient Name: CARMELITA CASON MRN: [facility]:[id number] date: 1990 Sex: F Assigned Patient Location: US Current Patient Location: US Accession/Order Number: [id number] Exam Date: 04/09/2025 12:20 Report Date: 04/09/2025 [...] all 4 extremities were surveyed by the venipuncturist. No abnormalities were detected. The stomach, bladder, [...] 04/09/2025 1:01 PM Dictation Location: [place] [address] Electronically authenticated by: [id number] Y Date: 04/09/2025 13:01 Dictated By: Raine Zelaya M.D. Signed By: 04/09/25 1304 DD/ 1301 TD/TT: [employer] Racker: [facility] HCG ( test) Ql (U)O rdered By: Arabella Hill on 04-06-2025 Interpretation and review of laboratory results Abnormal [facility] Preg Test, Ur Positive Negative [facility] Urinalysis macro (dipstick) panel (U)on 04-06-2025 Bilirubin, UA Negative Negative - 4(70) +++ mg/dL [facility] Blood, UA Negative Negative - 50 Amador/mcL [facility] Clarity, UA Clear [facility] Color, UA Yellow [facility] Glucose, UA Negative Negative - 2000(110) ++++ mg/dL [facility] Interpretation and review of laboratory results Normal [facility] Ketones, UA Negative Negative - 160(16) ++++ mg/dL [facility] Leukocytes, UA Negative Negative - 500+++ Camille/mcL [facility] Nitrite, UA Negative Negative - Positive [facility] pH, UA 6.5 5 - 9 [facility] Protein, UA Negative Negative - 2000(20) ++++ mg/dL [facility] Spec Grav, UA 1.02 1 - 1.03 [facility] Urobilinogen, UA 1.0 0.2 - 12 mg/dL [facility] US OB L= 14 [place] [address] Ultrasound Report Signed Patient: CARMELITA CASON MR#: [id number] : 1990 Acct:[id number] Age/Sex: 34 / F ADM Date: 01/22/25 Loc: US Attending Dr: Mee Pringle D.O. Ordering Physician: Mee Pringle D.O. Date of Service: 01/22/25 Procedure(s): US OB <= 14 weeks fetus Accession Number(s): [id number] cc: ROMEO GAR ; Mee Pringle D.O. The [place] [id number] Patient Name: CARMELITA CASON MRN: [facility]:[id number] date: 1990 Sex: F Assigned Patient Location: US Current Patient Location: US Accession/Order Number: [id number] Exam Date: 01/22/2025 14:49 Report Date: 01/22/2025 [...] Sorto Jr., D.O.01/22/2025 2:50 PM Dictation Location: [place] [address] Electronically authenticated by: [id number] Y Date: 01/22/2025 14:50 Dictated By: Serafin Sorto M.D. Signed By: 01/22/25 1453 DD/ 1450 TD/TT: [employer] Racker: [facility] Radiology, Radiologist, MD - 01/22/2025 [place] [address] Ultrasound Report Signed Patient: CARMELITA CASON MR#: [id number] : 1990 Acct:[id number] Age/Sex: 34 / F ADM Date: 01/22/25 Loc: US Attending Dr: Mee Pringle D.O. Ordering Physician: Mee Pringle D.O. Date of Service: 01/22/25 Procedure(s): US OB <= 14 weeks fetus Accession Number(s): [id number] cc: ROMEO GAR ; Mee Pringle D.O. [place] [id number] Patient Name: CARMELITA CASON MRN: [id number]:[id number] date: 1990 Sex: F Assigned Patient Location: US Current Patient Location: US Accession/Order Number: [id number] Exam Date: 01/22/2025 14:49 Report Date: 01/22/2025 [...] Sorto Jr., D.O.01/22/2025 2:50 PM Dictation Location: [place] [address] Electronically authenticated by: [id number] Y Date: 01/22/2025 14:50 Dictated By: Serafin Sorto M.D. Signed By: 01/22/25 1453 DD/ 1450 TD/TT: [employer] Racker: [facility] Radiology Study observation (narrative) [facility] US OB L= 14 WEEKS FETUSOrder ed By: Radiologist Radiology on 01-22-2025 [facility] Work Phone: [facility] PREG QUANT HCGon 025 HCG QUANTITATIVE 3026 mIU/mL [facility] Comment on above: 5-50 0.2-1 WEEK 50-500 1-2 WEEKS 100-5,000 2-3 WEEKS 500-10,000 3-4 WEEKS 1,000-50,000 4-5 WEEKS 10,000-100,000 5-6 WEEKS 15,000-200,000 6-8 WEEKS 10,000-100,000 2-3 MONTHS [facility] COMPLIANCE DRUG SCREENon PDF . Normal [facility] Comment on above: Performed By: #### D MSOAL #### [facility] [address] [place] [address] [address] Roberto Parmar Summary FINAL Normal [facility] Comment on above: Result Comment: ===== TOXASSURE [...] is an expected metabolite of dextromethorphan, an subg-wfe-jnrsqgu or prescription cough suppressant. Levorphanol is a scheduled prescription medication. Dextrorphan cannot be distinguished from levorphanol by the method used for analysis. Guaifenesin PRESENT UNEXPECTED Guaifenesin may be administered as an kybg-zcz-ztzwcty or prescription drug; it may also be [...] ===== Performed By: #### D SDOALC #### [facility] [address] [place] [address] Dr. Roberto Parmar URIC ACID [facility] 09-03 Uric Acid, Urine 12.4 mg/dL Normal Not Estab. [facility] Comment on above: Performed By: #### U RICUR #### [facility] [address] [place] [address] Dr. Roberto Parmar DRUG SCREEN RAPID (URINE)on 09-02-2022 AMP Negative Normal NEGATIVE [facility] Comment on above: Performed By: #### D RUGRPD #### [facility] [address] [place] [address] Dr. Roberto Parmar BAR Negative Normal NEGATIVE [facility] Comment on above: Performed By: #### D RUGRPD #### [facility] [address] [place] [address] Dr. Roberto Parmar BUP Positive Abnormal NEGATIVE [facility] Comment on above: Performed By: #### D RUGRPD #### [facility] [address] [place] [address] Dr. Roberto Parmar BZO Positive Abnormal NEGATIVE [facility] Comment on above: Performed By: #### D RUGRPD #### [facility] [address] [place] [address] Dr. Roberto Parmar BRITTANY Negative Normal NEGATIVE [facility] Comment on above: Performed By: #### D RUGRPD #### [facility] [address] [place] [address] Dr. Roberto Parmar CUT-OFFS SEE BELOW Normal [facility] Comment on above: Result Comment: AMP [...] ng/mL Performed By: #### D RUGRPD #### [facility] [address] [address] [address] Roberto Parmar DRUG CUT HEADER DRUG CLASS TEST SYSTEM CUT-OFF CONCENTRATIONS ARE FOLLOWS: Normal [facility] Comment on above: Performed By: #### D RUGRPD #### [facility] [address] [address] [address] Roberto Parmar mAMP Negative Normal NEGATIVE [facility] Comment on above: Performed By: #### D RUGRPD #### [facility] [address] [address] [address] Roberto Parmar MTD Negative Normal NEGATIVE [facility] Comment on above: Performed By: #### D RUGRPD #### [facility] [address] [place] [address] Dr. Roberto Parmar OPI Negative Normal NEGATIVE [facility] Comment on above: Performed By: #### D RUGRPD #### [facility] [address] [place] [address] Dr. Roberto Parmar OXY Negative Normal NEGATIVE [facility] Comment on above: Performed By: #### D RUGRPD #### [facility] [address] [place] [address] [address] Roberto Parmar PCP Negative Normal NEGATIVE [facility] Comment on above: Performed By: #### D RUGRPD #### [facility] [address] [place] [address] Dr. Roberto Parmar PPX Negative Normal NEGATIVE [facility] Comment on above: Performed By: #### D RUGRPD #### [facility] [address] [place] [address] [address] Roberto Parmar TCA Negative Normal NEGATIVE [facility] Comment on above: Performed By: #### D RUGRPD #### [facility] [address] [place] [address] [address] Roberto Parmar THC Negative Normal NEGATIVE [facility] Comment on above: Performed By: #### D RUGRPD #### [facility] [address] [place] [address] Dr. Roberto Parmar US PELVIS AND TRANSVAGon [...] by: MAYUR ALLEN Date: 2022-07-13 07:21 Normal [facility] PAP ACOG PANEL 2: 21 to 29on 06-18-2022 . . Normal [facility] Comment on above: Performed By: #### [id number] #### [facility] [facility] [address] [place] [address] Dr. Roberto Parmar Age Gdln ACOG Testing 21-29 Normal [facility] Comment on above: Performed By: #### [id number] #### [facility] [address] [place] [address] Dr. Roberto Parmar DIAGNOSIS: Comment Normal [facility] Comment on above: Result Comment: NEGA TIVE FOR INTRAEPITHELIAL LESION OR MALIGNANCY. Performed By: #### [id number] #### [facility] [address] [place] [address] Dr. Roberto Parmar Methodology: Comment Normal [facility] Comment on above: Result Comment: This liquid based ThinPrep(R) pap test was screened with the use of an image guided system. Performed By: #### 4 [id number] #### [facility] [address] [place] [address] Dr. Roberto Parmar Note: Comment Normal [facility] Comment on above: Result Comment: The Pap smear is a screening test designed to aid in the detection of premalignant and malignant conditions of the uterine cervix. It is not a diagnostic procedure and should not be used as the sole means of detecting cervical cancer. Both false-positive and false-negative reports do occur. . Performed By: #### [id number] #### [facility] [address] [place] [address] Dr. Roberto Parmar Performed by: Comment Normal [facility] Comment on above: Result Comment: Kishore De Dios Traveling Buyer (ASCP) Performed By: #### 4 [id number] #### [facility] [address] [place] [address] Dr. Roberto Parmar Reflex Criteria: Comment Normal [facility] Comment on above: Result Comment: The HPV DNA reflex criteria were not met with this specimen result therefore, no HPV testing was performed. . Performed By: #### 4 [id number] #### [facility] [address] [place] [address] Dr. Roberto Parmar Specimen adequacy: Comment Normal [facility] Comment on above: Result Comment: Sati sfactory for evaluation. Endocervical and/or squamous metaplastic cells (endocervical component) are present. Performed By: #### 4 [id number] #### [facility] [address] [place] [address] Dr. Roberto Parmar CBCon 12-06-2020 Erythrocyte distribution width (RBC) [Ratio] 13.6 % Normal 11.8-14.[address] [facility] Comment on above: Performed By: #### P HEP, HIVCMB #### [facility] [address] [place], [place] [id number] Content Designer: Alvino Davila MD #### CP, CBC, HCG #### [facility] [address] [place] [address] Content Designer: Luis A Peng MD Hematocrit (Bld) [Volume fraction] 44.1 % Normal 36.3-47.[address] [facility] Comment on above: Performed By: #### P HEP, HIVCMB #### [address] [id number] Content Designer: Alvino Davila MD #### CP, CBC, HCG #### [address] [place] [id number] Content Designer: Luis A Peng MD Hemoglobin (Bld) [Mass/Vol] 14.1 g/dL Normal 11.9-15.[address] [facility] Comment on above: Performed By: #### P HEP, HIVCMB #### [address] [id number] Content Designer: Alvino Davila MD #### CP, CBC, HCG #### [address] [place] [id number] Content Designer: Luis A Peng MD MCH (RBC) [Entitic mass] 25.4 pg Normal 25.2-33.[address] [facility] Comment on above: Performed By: #### P HEP, HIVCMB #### [address] [id number] Content Designer: Alvino Davila MD #### CP, CBC, HCG #### [address] [place] [id number] Content Designer: Luis A Peng MD MCHC (RBC) [Mass/Vol] 32.0 g/dL Normal 28.4-34.8 [facility] Comment on above: Performed By: #### P HEP, HIVCMB #### [address] [id number] Content Designer: Alvino Davila MD #### CP, CBC, HCG #### [address] [place] [id number] Content Designer: Luis A Peng MD MCV (RBC) [Entitic vol] 79.5 fL Low 82.6-102.[address] [facility] Comment on above: Performed By: #### P HEP, HIVCMB #### [address] [id number] Content Designer: Alvino Davila MD #### CP, CBC, HCG #### [address] [place] [id number] Content Designer: Luis A Peng MD NRBC Automated 0.0 per 100 WBC Normal 0.[address] [facility] Comment on above: Performed By: #### P HEP, HIVCMB #### [address] [id number] Content Designer: Alvino Davila MD #### CP, CBC, HCG #### [address] [place] [id number] Content Designer: Luis A Peng MD Platelet mean volume (Bld) [Entitic vol] 11.8 fL Normal 8.1-13.[address] [facility] Comment on above: Performed By: #### P HEP, HIVCMB #### [address] [address] Content Designer: Alvino Davila MD #### CP, CBC, HCG #### [address] [place] [id number] Content Designer: Luis A Peng MD Platelets (Bld) [#/Vol] 238 10*3/uL Normal 138-[address] [facility] Comment on above: Performed By: #### P HEP, HIVCMB #### [address] [address] Content Designer: Alvino Davila MD #### CP, CBC, HCG #### [address] [place] [id number] Content Designer: Luis A Peng MD RBC (Bld) [#/Vol] 5.55 10*6/uL High 3.95-5.[address] [facility] Comment on above: Performed By: #### P HEP, HIVCMB #### [facility] [address] [place], [place] [id number] Content Designer: Alvino Davila MD #### CP, CBC, HCG #### [facility] [address] [place] [address] [place] [address] Content Designer: Luis A Peng MD WBC (Bld) [#/Vol] 8.6 10*3/uL Normal 3.5-11.[address] [facility] Comment on above: Performed By: #### P HEP, HIVCMB #### [place] [id number] [place], [place] [id number] Content Designer: Alvino Davila MD #### LAURA, CBC, HCG #### [address] [place] [address] Content Designer: Luis A Peng MD Erythrocyte distribution width (RBC) [Ratio] 13.6 % 11.8 - 14.4 % [place] Hematocrit (Bld) [Volume fraction] 44.1 % 36.3 - 47.1 % [place] Hemoglobin (Bld) [Mass/Vol] 14.1 g/dL 11.9 - 15.1 g/dL [place] Interpretation and review of laboratory results Abnormal [place] MCH (RBC) [Entitic mass] 25.4 pg 25.2 - 33.5 pg [place] MCHC (RBC) [Mass/Vol] 32.0 g/dL 28.4 - 34.8 g/dL [place] MCV (RBC) [Entitic vol] 79.5 fL Low 82.6 - 102.9 fL [place] Platelet mean volume (Bld) [Entitic vol] 11.8 fL 8.1 - 13.5 fL [place] Platelets (Bld) [#/Vol] 238 10*3/uL [place] RBC (Bld) [#/Vol] 5.55 10*6/uL High 3.95 - 5.1 1 m/uL [place] WBC (Bld) [#/Vol] 8.6 10*3/uL [place] WBC (Bld) [#/Vol] 0.0 10*3/uL 0.0 per 100 WBC M [place], [place] Comp Metabolic Profon 2020 (cont.) Normal [facility] Comment on above: Result Comment: Aver age GFR for 20-29 years old: 116 mL/min/1.73sq m Chronic Kidney Disease: <60 mL/min/1.73sq m Kidney failure: <15 mL/min/1.73sq m eGFR calculated using average adult body mass. Additional eGFR calculator available at: http://www.[employer]/multiple_crcl_2011.htm Performed By: #### P HEP, HIVCMB #### [facility] [employer] [facility] [place], [place] [id number] Content Designer: Alvino Davila MD #### CP, CBC, HCG #### [facility] [address] [place] [address] [place] [address] Content Designer: Luis A Peng MD Albumin [Mass/Vol] 4.6 g/dL Normal 3.5-5.[address] [facility] Comment on above: Performed By: #### P HEP, HIVCMB #### [facility] [employer] [address] [place], [place] [id number] Content Designer: Alvino Davila MD #### CP, CBC, HCG #### [facility] [address] [place] [address] [place] [address] Content Designer: Luis A Peng MD Albumin/Globulin [Mass ratio] 1.6 {ratio} Normal 1.0-2.[address] [facility] Comment on above: Performed By: #### P HEP, HIVCMB #### [facility] [employer] [address] [place] [address] Content Designer: Alvino Davila MD #### CP, CBC, HCG #### [address] [place] [address] Content Designer: Luis A Peng MD Alkaline Phos 81 U/L Normal 35-104 [facility] Comment on above: Performed By: #### P HEP, HIVCMB #### [address] [address] Content Designer: Alvino Davila MD #### CP, CBC, HCG #### [address] [place] [address] Content Designer: Luis A Peng MD ALT [Catalytic activity/Vol] 39 U/L High 5-[address] [facility] Comment on above: Performed By: #### P HEP, HIVCMB #### [address] [address] Content Designer: Alvino Davila MD #### CP, CBC, HCG #### [address] [place] [address] Content Designer: Luis A Peng MD Anion gap [Moles/Vol] 12 mmol/L Normal 9-17 [facility] Comment on above: Performed By: #### P HEP, HIVCMB #### [address] [address] Content Designer: Alvino Davila MD #### CP, CBC, HCG #### [address] [place] [address] Content Designer: Luis A Peng MD AST [Catalytic activity/Vol] 28 U/L Normal <[address] [facility] Comment on above: Performed By: #### P HEP, HIVCMB #### [address] [address] Content Designer: Alvino Davila MD #### CP, CBC, HCG #### [facility] [address] [place] [address] Dr. [place], [place] [id number] Content Designer: Luis A Peng MD Bilirubin Ql (U) 0.26 mg/dL Low 0.3-1.2 [facility] Comment on above: Performed By: #### P HEP, HIVCMB #### [address] [id number] Content Designer: Alvino Davila MD #### CP, CBC, HCG #### [address] [place], [place] [id number] Content Designer: Luis A Peng MD BUN/CRE Ratio 14 Normal 9-20 [facility] Comment on above: Performed By: #### P HEP, HIVCMB #### [address] [address] Content Designer: Alvino Davila MD #### CP, CBC, HCG #### [address] [place], [place] 6083883 Content Designer: Luis A Peng MD Calcium [Mass/Vol] 10.1 mg/dL Normal 8.6-10.[address] [facility] Comment on above: Performed By: #### P HEP, HIVCMB #### [address] [address] Content Designer: Alvino Davila MD #### CP, CBC, HCG #### [address] [place], [place] [id number] Content Designer: Luis A Peng MD Chloride [Moles/Vol] 101 mmol/L Normal 98-107 [facility] Comment on above: Performed By: #### P HEP, HIVCMB #### [address] [address] Content Designer: Alvino Davila MD #### CP, CBC, HCG #### [address] [place], [place] [id number] Content Designer: Luis A Peng MD CO2 [Moles/Vol] 26 mmol/L Normal 20-31 [facility] Comment on above: Performed By: #### P HEP, HIVCMB #### [address] [address] Content Designer: Alvino Davila MD #### CP, CBC, HCG #### [address] [place], [place] 6191483 Content Designer: Luis A Peng MD Creatinine [Mass/Vol] 0.49 mg/dL Low 0.50-0.90 [facility] Comment on above: Performed By: #### P HEP, HIVCMB #### [address] [id number] Content Designer: Alvino Davila MD #### CP, CBC, HCG #### [address] [place], [place] [id number] Content Designer: Luis A Peng MD GFR, Amer >60 Normal >60 [facility] Comment on above: Performed By: #### P HEP, HIVCMB #### [address] [address] Content Designer: Alvino Davila MD #### CP, CBC, HCG #### [address] [place], [place] 9242183 Content Designer: Luis A Peng MD GFR,non Amer >60 Normal >60 [facility] Comment on above: Performed By: #### P HEP, HIVCMB #### [address] [address] Content Designer: Alvino Davila MD #### CP, CBC, HCG #### [address] [place], [place] 1669883 Content Designer: Luis A Peng MD Glucose [Mass/Vol] 101 mg/dL High 70-[address] [facility] Comment on above: Performed By: #### P HEP, HIVCMB #### [address] [address] Content Designer: Alvino Davila MD #### CP, CBC, HCG #### [facility] [address] [place] [address] Dr. [place] [id number] Content Designer: Luis A Peng MD Potassium [Moles/Vol] 4.2 mmol/L Normal 3.7-5.3 [facility] Comment on above: Performed By: #### P HEP, HIVCMB #### [address] [address] Content Designer: Alvino Davila MD #### CP, CBC, HCG #### [address] [place] [phone] Content Designer: Luis A Peng MD Protein [Mass/Vol] 7.5 g/dL Normal 6.4-8.[address] [facility] Comment on above: Performed By: #### P HEP, HIVCMB #### [address] [address] Content Designer: Alvino Davila MD #### CP, CBC, HCG #### [address] [place] [phone] Content Designer: Luis A Peng MD Sodium [Moles/Vol] 139 mmol/L Normal 135-[address] [facility] Comment on above: Performed By: #### P HEP, HIVCMB #### [address] [address] Content Designer: Alvino Davila MD #### CP, CBC, HCG #### [address] [place] [address] Content Designer: Luis A Peng MD Staging: Normal [facility] Comment on above: Result Comment: Stag e 1: Some kidney damage normal GFR Stage 2: Mild kidney damage GFR 60-89 Stage 3: Moderate kidney damage GFR 30-59 Stage 4: Severe kidney damage GFR 15-29 Stage 5: Severe kidney damage GFR <15 ESRD - chronic treatment by dialysis or transplant Performed By: #### P HEP, HIVCMB #### [facility] [address] [place], [place] [id number] Content Designer: Alvino Davila MD #### CP, CBC, HCG #### [facility] [address] [place] [address] Content Designer: Luis A Peng MD Urea nitrogen [Mass/Vol] 7 mg/dL Normal 6-[address] [facility] Comment on above: Performed By: #### P HEP, HIVCMB #### [facility] [address] [place], [place] [id number] Content Designer: Alvino Davila MD #### CP, CBC, HCG #### [facility] [address] [place] [address] Content Designer: Luis A Peng MD [facility] Metabolic Pane [facility] 12-06-2020 Albumin [Mass/Vol] 4.6 g/dL 3.5 - 5.2 g/dL [place], [place] Albumin/Globulin [Mass ratio] 1.6 {ratio} [place] ALP [Catalytic activity/Vol] 81 U/L 35 - 104 U/L [place] ALT [Catalytic activity/Vol] 39 U/L High 5 - 33 U/L [place] Anion gap [Moles/Vol] 12 mmol/L 9 - 17 mmol/L [place] AST [Catalytic activity/Vol] 28 U/L <32 [place] Bilirubin Ql (U) 0.26 mg/dL Low 0.3 - 1.2 mg/dL [place] Bun/Cre Ratio 14 [place], [place] Calcium [Mass/Vol] 10.1 mg/dL 8.6 - 10. 4 mg/dL [place] Chloride [Moles/Vol] 101 mmol/L 98 - 107 mmol/L [place] CO2 [Moles/Vol] 26 mmol/L 20 - 31 mmol/L [place] Creatinine [Mass/Vol] 0.49 mg/dL Low 0.5 - 0.9 mg/d L [place] GFR >60 >60 mL/min [place], [place] GFR Non- >60 >60 mL/min [place] Glucose [Mass/Vol] 101 mg/dL High 70 - 99 mg/dL [place] Interpretation and review of laboratory results Abnormal [place] Potassium [Moles/Vol] 4.2 mmol/L 3.7 - 5.3 mmol/L [place] Protein [Mass/Vol] 7.5 g/dL 6.4 - 8.3 g/dL [place] Sodium [Moles/Vol] 139 mmol/L 135 - 144 mmol/L [place] Urea nitrogen [Mass/Vol] 7 mg/dL 6 - 20 mg/dL [place] HCG Qualitative, Serumon hCG Qual Negative NEGATIVE [place] Comment on above: Specimens with hCG l evels near the threshold of the test (25 mIU/mL) may give a negative or indeterminate result. In such cases, another test should be performed with a new specimen in 48-72 hours. If early is suspected clinically in this setting, correlation with quantitative serum b-hCG level is suggested. [facility] has confirmed the use of plasma for this test. This has not been cleared or approved by the U.S. Food and Drug Administration. The FDA has determined that such clearance is not necessary. HCG Screen, Bloodon 12-06-19 21 HCG Qn Negative Normal NEG [facility] Comment on above: Result Comment: Spec imens with hCG levels near the threshold of the test (25 mIU/mL) may give a negative or indeterminate result. In such cases, another test should be performed with a new specimen in 48-72 hours. If early is suspected clinically in this setting, correlation with quantitative serum b-hCG level is suggested. [facility] has confirmed the use of plasma for this test. This has not been cleared or approved by the U.S. Food and Drug Administration. The FDA has determined that such clearance is not necessary. Performed By: #### P HEP, HIVCMB #### [facility] [address] [place] [address] Content Designer: Alvino Davila MD #### CP, CBC, HCG #### [address] [place], [place] 1634583 Content Designer: Luis A Peng MD HIV Ag/Abon 12-06-2020 HIV Ag/Ab NONREACTIVE Normal [facility] Comment on above: Result Comment: No l aboratory evidence of HIV infection. If acute HIV infection is suspected, consider testing for HIV-1 RNA. Performed By: #### P HEP, HIVCMB #### [address] [address] Content Designer: Alvino Davila MD #### CP, CBC, HCG #### [address] [place] [address] Content Designer: Luis A Peng MD HIV Screenon 12-06-2020 HIV Ag/Ab NONREACTIVE NONREACTIVE [place], [place] Comment on above: No laboratory eviden ce of HIV infection. If acute HIV infection is suspected, consider testing for HIV-1 RNA. Hepatitis Acute [facility] 12-06 Hep A Ab,IgM NONREACTIVE Normal NR [facility] Comment on above: Performed By: #### P HEP, HIVCMB #### [place] [id number] [place] [address] Content Designer: Alvino Davila MD #### CP, CBC, HCG #### [address] [place] [address] Content Designer: Luis A Peng MD Hep B Core Ab,IgM NONREACTIVE Normal [facility] Comment on above: Performed By: #### P HEP, HIVCMB #### [place] [id number] [place] [address] Content Designer: Alvino Davila MD #### CP, CBC, HCG #### [address] [place], [place] [phone] Content Designer: Luis A Peng MD Hep B Surf Ag NONREACTIVE Normal [facility] Comment on above: Performed By: #### P HEP, HIVCMB #### [address] [address] Content Designer: Alvino Davila MD #### CP, CBC, HCG #### [address] [place] [place] [address] Content Designer: Luis A Peng MD Hep C Ab REACTIVE Abnormal [facility] Comment on above: Result Comment: The [...] Performed By: #### P HEP, HIVCMB #### [address] [address] Content Designer: Alvino Davila MD #### CP, CBC, HCG #### [address] [place] [address] Content Designer: Luis A Peng MD Hepatitis Panel, [facility] HAV IgM IA Qn (S) NONREACTIVE NONREACTIVE [place] Hep B Core Ab, IgM NONREACTIVE NONREACTIVE [place], [place] Hepatitis B Surface Ag NONREACTIVE NONREACTIVE [place] Hepatitis C Ab REACTIVE Abnormal NONREACTIVE [place], [place] Comment on above: The hepatitis C [...] Interpretation and review of laboratory results Abnormal [place] Metabolic Panelon 12-06-2020 GFR/1.73 sq M predicted among non-blacks MDRD (S/P/Bld) [Vol rate/Area] [place] Comment on above: Stage 1: Some [...] body mass. Additional eGFR calculator available at: http://www.[employer]/multiple_crcl_2012.htm CBCon 05-30-2020 Erythrocyte distribution width (RBC) [Ratio] 12.7 % Normal 11.8-14.[address] [facility] Comment on above: Performed By: #### C P, HCG, CBC #### [facility] [address] [place] [address] [place] [address] Content Designer: Luis A Peng MD #### HIVCMB, PHEP #### [facility] [employer] [facility] [place], [place] [id number] Content Designer: Alvino Davila MD Hematocrit (Bld) [Volume fraction] 39.2 % Normal 36.3-47.[address] [facility] Comment on above: Performed By: #### C P, HCG, CBC #### [facility] [address] [place] [address] [place] [address] Content Designer: Luis A Peng MD #### HIVCMCody, PHEP #### [facility] [employer] [facility] [place], [place] [id number] Content Designer: Alvino Davila MD Hemoglobin (Bld) [Mass/Vol] 12.3 g/dL Normal 11.9-15.[address] [facility] Comment on above: Performed By: #### C P, HCG, CBC #### [facility] [address] [place] [address] Dr. [place] [id number] Content Designer: Luis A Peng MD #### HIVCMB, PHEP #### [place] [address] [place], [place] 1344908 Content Designer: Alvino Davila MD MCH (RBC) [Entitic mass] 26.2 pg Normal 25.2-33.[address] [facility] Comment on above: Performed By: #### C P, HCG, CBC #### [address] [place] 0139383 Content Designer: Luis A Peng MD #### HIVCMB, PHEP #### [place] [address] [place], [place] 7519308 Content Designer: Alvino Davila MD MCHC (RBC) [Mass/Vol] 31.4 g/dL Normal 28.4-34.8 [facility] Comment on above: Performed By: #### C P, HCG, CBC #### [address] [place] [phone] Content Designer: Luis A Peng MD #### HIVCMB, PHEP #### [place] [address] [place], [place] 3662008 Content Designer: Alvino Davila MD MCV (RBC) [Entitic vol] 83.6 fL Normal 82.6-102.[address] [facility] Comment on above: Performed By: #### C P, HCG, CBC #### [facility] [address] [place] [address] Dr. [place] [phone] Content Designer: Luis A Peng MD #### HIVCMB, PHEP #### [place] [address] [place], [place] 8355108 Content Designer: Alvino Davila MD NRBC Automated 0.0 per 100 WBC Normal 0.[address] [facility] Comment on above: Performed By: #### C P, HCG, CBC #### [facility] [address] [place] [address] Dr. [place] [phone] Content Designer: Luis A Peng MD #### HIVCMB, PHEP #### [address] [id number] Content Designer: Alvino Davila MD Platelet mean volume (Bld) [Entitic vol] 10.9 fL Normal 8.1-13.[address] [facility] Comment on above: Performed By: #### C P, HCG, CBC #### [address] [place] [id number] Content Designer: Luis A Peng MD #### HIVCMB, PHEP #### [address] [id number] Content Designer: Alvino Davila MD Platelets (Bld) [#/Vol] 277 10*3/uL Normal 138-[address] [facility] Comment on above: Performed By: #### C P, HCG, CBC #### [address] [place] [id number] Content Designer: Luis A Peng MD #### HIVCMB, PHEP #### [address] [id number] Content Designer: Alvino Davila MD RBC (Bld) [#/Vol] 4.69 10*6/uL Normal 3.95-5.[address] [facility] Comment on above: Performed By: #### C P, HCG, CBC #### [address] [place] [address] Content Designer: Luis A Peng MD #### HIVCMB, PHEP #### [facility] [address] [place], [place] [id number] Content Designer: Alvino Davila MD WBC (Bld) [#/Vol] 5.5 10*3/uL Normal 3.5-11.[address] [facility] Comment on above: Performed By: #### C P, HCG, CBC #### [facility] [address] [place] [address] Content Designer: Luis A Peng MD #### HIVCMB, PHEP #### [facility] [address] [place], [place] [id number] Content Designer: Alvino Davila MD Erythrocyte distribution width (RBC) [Ratio] 12.7 % 11.8 - 14.4 % [place] Hematocrit (Bld) [Volume fraction] 39.2 % 36.3 - 47.1 % [place] Hemoglobin (Bld) [Mass/Vol] 12.3 g/dL 11.9 - 15.1 g/dL [place] MCH (RBC) [Entitic mass] 26.2 pg 25.2 - 33.5 pg [place] MCHC (RBC) [Mass/Vol] 31.4 g/dL 28.4 - 34.8 g/dL [place] MCV (RBC) [Entitic vol] 83.6 fL 82.6 - 102.9 fL [place] Platelet mean volume (Bld) [Entitic vol] 10.9 fL 8.1 - 13.5 fL [place] Platelets (Bld) [#/Vol] 277 10*3/uL [place] RBC (Bld) [#/Vol] 4.69 10*6/uL 3.95 - 5.1 1 m/uL [place] WBC (Bld) [#/Vol] 5.5 10*3/uL [place] WBC (Bld) [#/Vol] 0.0 10*3/uL 0.0 per 100 WBC M [facility] [place] [place] Comp Metabolic Profon 2019 (cont.) Normal [facility] Comment on above: Result Comment: Aver age GFR for 20-29 years old: 116 mL/min/1.73sq m Chronic Kidney Disease: <60 mL/min/1.73sq m Kidney failure: <15 mL/min/1.73sq m eGFR calculated using average adult body mass. Additional eGFR calculator available at: http://www.[employer]/multiple_crcl_2011.htm Performed By: #### C P, HCG, CBC #### [facility] [address] [place] [address] Content Designer: Luis A Peng MD #### HIVCMB, PHEP #### [address] [id number] Content Designer: Alvino Davila MD Albumin [Mass/Vol] 3.4 g/dL Low 3.5-5.[address] [facility] Comment on above: Performed By: #### C P, HCG, CBC #### [facility] [address] [place] [address] Content Designer: Luis A Peng MD #### HIVCMB, PHEP #### [address] [id number] Content Designer: Alvino Davila MD Albumin/Globulin [Mass ratio] 1.1 {ratio} Normal 1.0-2.[address] [facility] Comment on above: Performed By: #### C P, HCG, CBC #### [facility] [address] [place] [address] Content Designer: Luis A Peng MD #### HIVCMB, PHEP #### [address] [id number] Content Designer: Alvino Davila MD Alkaline Phos 130 U/L High 35-104 [facility] Comment on above: Performed By: #### C P, HCG, CBC #### [address] [place], [place] [id number] Content Designer: Luis A Peng MD #### HIVCMB, PHEP #### [address] [id number] Content Designer: Alvino Davila MD ALT [Catalytic activity/Vol] 33 U/L Normal 5-[address] [facility] Comment on above: Performed By: #### C P, HCG, CBC #### [address] [place], [place] [id number] Content Designer: Luis A Peng MD #### HIVCMB, PHEP #### [address] [id number] Content Designer: Alvino Davila MD Anion gap [Moles/Vol] 7 mmol/L Low 9-17 [facility] Comment on above: Performed By: #### C P, HCG, CBC #### [address] [place] [id number] Content Designer: Luis A Peng MD #### HIVCMB, PHEP #### [address] 1080408 Content Designer: Alvino Davila MD AST [Catalytic activity/Vol] 35 U/L High <[address] [facility] Comment on above: Performed By: #### C P, HCG, CBC #### [address] [place] [id number] Content Designer: Luis A Peng MD #### HIVCMB, PHEP #### [address] [address] Content Designer: Alvino Davila MD Bilirubin Ql (U) 0.16 mg/dL Low 0.3-1.2 [facility] Comment on above: Performed By: #### C P, HCG, CBC #### [address] [place] [id number] Content Designer: Luis A Peng MD #### HIVCMB, PHEP #### [address] [id number] Content Designer: Alvino Davila MD BUN/CRE Ratio 14 Normal 9-20 [facility] Comment on above: Performed By: #### C P, HCG, CBC #### [address] [place] [id number] Content Designer: Luis A Peng MD #### HIVCMB, PHEP #### [address] [address] Content Designer: Alvino Davila MD Calcium [Mass/Vol] 9.2 mg/dL Normal 8.6-10.[address] [facility] Comment on above: Performed By: #### C P, HCG, CBC #### [address] [place] 0139383 Content Designer: Luis A Peng MD #### HIVCMB, PHEP #### [address] [address] Content Designer: Alvino Davila MD Chloride [Moles/Vol] 99 mmol/L Normal 98-107 [facility] Comment on above: Performed By: #### C P, HCG, CBC #### [address] [place] [id number] Content Designer: Luis A Peng MD #### HIVCMB, PHEP #### [address] [address] Content Designer: Alvino Davila MD CO2 [Moles/Vol] 29 mmol/L Normal 20-31 [facility] Comment on above: Performed By: #### C P, HCG, CBC #### [address] [place] [id number] Content Designer: Luis A Peng MD #### HIVCMB, PHEP #### [id number] [place], [place] [id number] Content Designer: Alvino Davila MD Creatinine [Mass/Vol] 0.63 mg/dL Normal 0.50-0.90 [facility] Comment on above: Performed By: #### C P, HCG, CBC #### [facility] [address] [place], [place] [id number] Content Designer: Luis A Peng MD #### HIVCMB, PHEP #### [address] [id number] Content Designer: Alvino Davila MD GFR, Amer >60 Normal >60 [facility] Comment on above: Performed By: #### C P, HCG, CBC #### [facility] [address] [place] [address] Dr. [place], [place] 8442283 Content Designer: Luis A Peng MD #### HIVCMB, PHEP #### [address] [id number] Content Designer: Alvino Davila MD GFR,non Amer >60 Normal >60 [facility] Comment on above: Performed By: #### C P, HCG, CBC #### [address] [place], [place] 8208683 Content Designer: Luis A Peng MD #### HIVCMB, PHEP #### [address] [address] Content Designer: Alvino Davila MD Glucose [Mass/Vol] 95 mg/dL Normal 70-[address] [facility] Comment on above: Performed By: #### C P, HCG, CBC #### [facility] [address] [place], [place] [id number] Content Designer: Luis A Peng MD #### HIVCMB, PHEP #### [address] [address] Content Designer: Alvino Davila MD Potassium [Moles/Vol] 4.3 mmol/L Normal 3.7-5.3 [facility] Comment on above: Performed By: #### C P, HCG, CBC #### [address] [place], [place] [id number] Content Designer: Luis A Peng MD #### HIVCMB, PHEP #### [address] [address] Content Designer: Alvino Davila MD Protein [Mass/Vol] 6.5 g/dL Normal 6.4-8.[address] [facility] Comment on above: Performed By: #### C P, HCG, CBC #### [address] [place] [phone] Content Designer: Luis A Peng MD #### HIVCMB, PHEP #### [address] [address] Content Designer: Alvino Davila MD Sodium [Moles/Vol] 135 mmol/L Normal 135-[address] [facility] Comment on above: Performed By: #### C P, HCG, CBC #### [address] [place], [place] [id number] Content Designer: Luis A Peng MD #### HIVCMB, PHEP #### [address] [id number] Content Designer: Alvino Davila MD Staging: Normal [facility] Comment on above: Result Comment: Stag e 1: Some kidney damage normal GFR Stage 2: Mild kidney damage GFR 60-89 Stage 3: Moderate kidney damage GFR 30-59 Stage 4: Severe kidney damage GFR 15-29 Stage 5: Severe kidney damage GFR <15 ESRD - chronic treatment by dialysis or transplant Performed By: #### C P, HCG, CBC #### [address] [place] [address] Content Designer: Luis A Peng MD #### HIVCMB, PHEP #### [facility] [employer] [address] [place], [place] [id number] Content Designer: Alvino Davila MD Urea nitrogen [Mass/Vol] 9 mg/dL Normal 6-[address] [facility] Comment on above: Performed By: #### C P, HCG, CBC #### [facility] [address] [place] [address] Content Designer: Luis A Peng MD #### HIVCMB, PHEP #### [facility] [address] [place] [address] Content Designer: Alvino Davila MD Comprehensive Metabolic Pane [facility] 05-30-2020 Albumin [Mass/Vol] 3.4 g/dL Low 3.5 - 5.2 g/dL [place] Albumin/Globulin [Mass ratio] 1.1 {ratio} [place] ALP [Catalytic activity/Vol] 130 U/L High 35 - 104 U/L [place] ALT [Catalytic activity/Vol] 33 U/L 5 - 33 U/L [place] Anion gap [Moles/Vol] 7 mmol/L Low 9 - 17 mmol/L [place] AST [Catalytic activity/Vol] 35 U/L High <32 [place] Bilirubin Ql (U) 0.16 mg/dL Low 0.3 - 1.2 mg/dL [place] Bun/Cre Ratio 14 [place] Calcium [Mass/Vol] 9.2 mg/dL 8.6 - 10. 4 mg/dL [place] Chloride [Moles/Vol] 99 mmol/L 98 - 107 mmol/L [place] CO2 [Moles/Vol] 29 mmol/L 20 - 31 mmol/L [place] Creatinine [Mass/Vol] 0.63 mg/dL 0.5 - 0.9 mg/d L [place] GFR >60 >60 mL/min [place] GFR Non- >60 >60 mL/min [place] Glucose [Mass/Vol] 95 mg/dL 70 - 99 mg/dL [place] Interpretation and review of laboratory results Abnormal [place] Potassium [Moles/Vol] 4.3 mmol/L 3.7 - 5.3 mmol/L [place] Protein [Mass/Vol] 6.5 g/dL 6.4 - 8.3 g/dL [place] Sodium [Moles/Vol] 135 mmol/L 135 - 144 mmol/L [place] Urea nitrogen [Mass/Vol] 9 mg/dL 6 - 20 mg/dL [place] HCG Qualitative, Serumon hCG Qual Negative NEGATIVE [place] Comment on above: Specimens with hCG l evels near the threshold of the test (25 mIU/mL) may give a negative or indeterminate result. In such cases, another test should be performed with a new specimen in 48-72 hours. If early is suspected clinically in this setting, correlation with quantitative serum b-hCG level is suggested. [facility] has confirmed the use of plasma for this test. This has not been cleared or approved by the U.S. Food and Drug Administration. The FDA has determined that such clearance is not necessary. HCG Screen, Bloodon 05-30-20 20 HCG Qn Negative Normal NEG [facility] Comment on above: Result Comment: Spec imens with hCG levels near the threshold of the test (25 mIU/mL) may give a negative or indeterminate result. In such cases, another test should be performed with a new specimen in 48-72 hours. If early is suspected clinically in this setting, correlation with quantitative serum b-hCG level is suggested. [facility] has confirmed the use of plasma for this test. This has not been cleared or approved by the U.S. Food and Drug Administration. The FDA has determined that such clearance is not necessary. Performed By: #### C P, HCG, CBC #### [facility] [address] [place] [address] Content Designer: Luis A Pegn MD #### HIVCMB, PHEP #### [id number] [place] [address] Content Designer: Alvino Davila MD HIV Ag/Abon 05-30-2020 HIV Ag/Ab NONREACTIVE Normal [facility] Comment on above: Result Comment: No l aboratory evidence of HIV infection. If acute HIV infection is suspected, consider testing for HIV-1 RNA. Performed By: #### C P, HCG, CBC #### [address] [place], [place] [id number] Content Designer: Luis A Peng MD #### HIVCMB, PHEP #### [address] [address] Content Designer: Alvino Davila MD HIV Screenon 05-30-2020 HIV Ag/Ab NONREACTIVE NONREACTIVE [place] Comment on above: No laboratory eviden ce of HIV infection. If acute HIV infection is suspected, consider testing for HIV-1 RNA. Hepatitis Acute [facility] 05-30 Hep A Ab,IgM NONREACTIVE Normal NR [facility] Comment on above: Performed By: #### C P, HCG, CBC #### [address] [place], [place] [phone] Content Designer: Luis A Peng MD #### HIVCMB, PHEP #### [id number] [place] [address] Content Designer: Alvino Davila MD Hep B Core Ab,IgM NONREACTIVE Normal [facility] Comment on above: Performed By: #### C P, HCG, CBC #### [address] [place], [place] 9868883 Content Designer: Luis A Peng MD #### HIVCMB, PHEP #### [address] [place] [address] Content Designer: Alvino Davila MD Hep B Surf Ag NONREACTIVE Normal NR [facility] Comment on above: Performed By: #### C P, HCG, CBC #### [facility] [address] [place] [address] [place], [place] 7768383 Content Designer: Luis A Peng MD #### HIVCMB, PHEP #### [address] [id number] Content Designer: Alvino Davila MD Hep C Ab NONREACTIVE Normal NR [facility] Comment on above: Result Comment: The [...] By: #### C P, HCG, CBC #### [address] [place] [id number] Content Designer: Luis A Peng MD #### HIVCMB, PHEP #### [address] [address] Content Designer: Alvino Davila MD Hepatitis Panel, Acuteon HAV IgM IA Qn (S) NONREACTIVE NONREACTIVE [place] Hep B Core Ab, IgM NONREACTIVE NONREACTIVE [place] Hepatitis B Surface Ag NONREACTIVE NONREACTIVE [place] Hepatitis C Ab NONREACTIVE NONREACTIVE [place] Comment on above: The hepatitis C [...] predicted among non-blacks MDRD (S/P/Bld) [Vol rate/Area] [place] Comment on above: Stage 1: Some [...] body mass. Additional eGFR calculator available at: http://www.[employer]/multiple_crcl_2012.htm [facility] 01-01-2020 Erythrocyte distribution width (RBC) [Ratio] 12.5 % Normal 11.8-14.[address] [facility] Comment on above: Performed By: #### P HEP, HIVCMB #### [address] [id number] Content Designer: Alvino Davila MD #### CP, CBC, HCG #### [address] [place] [address] Content Designer: Luis A Peng MD Hematocrit (Bld) [Volume fraction] 40.2 % Normal 36.3-47.[address] [facility] Comment on above: Performed By: #### P HEP, HIVCMB #### [address] [id number] Content Designer: Alvino Davila MD #### CP, CBC, HCG #### [address] [place] [address] Content Designer: Luis A Peng MD Hemoglobin (Bld) [Mass/Vol] 13.1 g/dL Normal 11.9-15.[address] [facility] Comment on above: Performed By: #### P HEP, HIVCMB #### [address] [id number] Content Designer: Alvino Davila MD #### CP, CBC, HCG #### [address] [place] [phone] Content Designer: Luis A Peng MD MCH (RBC) [Entitic mass] 28.4 pg Normal 25.2-33.[address] [facility] Comment on above: Performed By: #### P HEP, HIVCMB #### [address] [id number] Content Designer: Alvino Davila MD #### CP, CBC, HCG #### [address] [place] [phone] Content Designer: Luis A Peng MD MCHC (RBC) [Mass/Vol] 32.6 g/dL Normal 28.4-34.8 [facility] Comment on above: Performed By: #### P HEP, HIVCMB #### [address] [id number] Content Designer: Alvino Davila MD #### CP, CBC, HCG #### [address] [place] [phone] Content Designer: Luis A Pegn MD MCV (RBC) [Entitic vol] 87.2 fL Normal 82.6-102.[address] [facility] Comment on above: Performed By: #### P HEP, HIVCMB #### [address] [id number] Content Designer: Alvino Davila MD #### CP, CBC, HCG #### [address] [place] [address] Content Designer: Luis A Peng MD NRBC Automated 0.0 per 100 WBC Normal 0.[address] [facility] Comment on above: Performed By: #### P HEP, HIVCMB #### [address] [id number] Content Designer: Alvino Davila MD #### CP, CBC, HCG #### [address] [place] 0139383 Content Designer: Luis A Peng MD Platelet mean volume (Bld) [Entitic vol] 11.2 fL Normal 8.1-13.[address] [facility] Comment on above: Performed By: #### P HEP, HIVCMB #### [address] [id number] Content Designer: Alvino Davila MD #### CP, CBC, HCG #### [address] [place] 0139383 Content Designer: Luis A Peng MD Platelets (Bld) [#/Vol] 241 10*3/uL Normal 138-[address] [facility] Comment on above: Performed By: #### P HEP, HIVCMB #### [address] [id number] Content Designer: Alvino Davila MD #### CP, CBC, HCG #### [address] [place] 0139383 Content Designer: Luis A Peng MD RBC (Bld) [#/Vol] 4.61 10*6/uL Normal 3.95-5.[address] [facility] Comment on above: Performed By: #### P HEP, HIVCMB #### [address] [id number] Content Designer: Alvino Davila MD #### CP, CBC, HCG #### [address] [place] 0139383 Content Designer: Luis A Peng MD WBC (Bld) [#/Vol] 9.0 10*3/uL Normal 3.5-11.[address] [facility] Comment on above: Performed By: #### P HEP, HIVCMB #### [address] [id number] Content Designer: Alvino Davila MD #### CP, CBC, HCG #### [facility] [address] [place] [address] Content Designer: Luis A Peng MD Erythrocyte distribution width (RBC) [Ratio] 12.5 % 11.8 - 14.4 % [place] Hematocrit (Bld) [Volume fraction] 40.2 % 36.3 - 47.1 % [place] Hemoglobin (Bld) [Mass/Vol] 13.1 g/dL 11.9 - 15.1 g/dL [place] MCH (RBC) [Entitic mass] 28.4 pg 25.2 - 33.5 pg [place] MCHC (RBC) [Mass/Vol] 32.6 g/dL 28.4 - 34.8 g/dL [place] MCV (RBC) [Entitic vol] 87.2 fL 82.6 - 102.9 fL [place] Platelet mean volume (Bld) [Entitic vol] 11.2 fL 8.1 - 13.5 fL [place] Platelets (Bld) [#/Vol] 241 10*3/uL [place] RBC (Bld) [#/Vol] 4.61 10*6/uL 3.95 - 5.1 1 m/uL [place] WBC (Bld) [#/Vol] 0.0 10*3/uL 0.0 per 100 WBC [place] WBC (Bld) [#/Vol] 9.0 10*3/uL [place] Comp Metabolic Profon 2019 (cont.) Normal [facility] Comment on above: Result Comment: Aver age GFR for 20-29 years old: 116 mL/min/1.73sq m Chronic Kidney Disease: <60 mL/min/1.73sq m Kidney failure: <15 mL/min/1.73sq m eGFR calculated using average adult body mass. Additional eGFR calculator available at: http://www.[employer]/multiple_crcl_2011.htm Performed By: #### P HEP, HIVCMB #### [address] [address] Content Designer: Alvino Davila MD #### CP, CBC, HCG #### [address] [place], [place] [phone] Content Designer: Luis A Peng MD Albumin [Mass/Vol] 4.2 g/dL Normal 3.5-5.[address] [facility] Comment on above: Performed By: #### P HEP, HIVCMB #### [address] [address] Content Designer: Alvino Davila MD #### CP, CBC, HCG #### [address] [place] [address] Content Designer: Luis A Peng MD Albumin/Globulin [Mass ratio] 1.7 {ratio} Normal 1.0-2.[address] [facility] Comment on above: Performed By: #### P HEP, HIVCMB #### [address] [address] Content Designer: Alivno Davila MD #### CP, CBC, HCG #### [address] [place] [address] Content Designer: Luis A Peng MD Alkaline Phos 69 U/L Normal 35-104 [facility] Comment on above: Performed By: #### P HEP, HIVCMB #### [address] [address] Content Designer: Alvino Davila MD #### CP, CBC, HCG #### [address] [place] [address] Content Designer: Luis A Peng MD ALT [Catalytic activity/Vol] 78 U/L High 5-[address] [facility] Comment on above: Performed By: #### P HEP, HIVCMB #### [address] [address] Content Designer: Alvino Davila MD #### CP, CBC, HCG #### [facility] [address] [place] 0139383 Content Designer: Luis A Peng MD Anion gap [Moles/Vol] 9 mmol/L Normal 9-17 [facility] Comment on above: Performed By: #### P HEP, HIVCMB #### [address] [address] Content Designer: Alvino Davila MD #### CP, CBC, HCG #### [facility] [address] [place] 0139383 Content Designer: Luis A Peng MD AST [Catalytic activity/Vol] 44 U/L High <[address] [facility] Comment on above: Performed By: #### P HEP, HIVCMB #### [address] [address] Content Designer: Alvino Davila MD #### CP, CBC, HCG #### [facility] [address] [place] 0139383 Content Designer: Luis A Peng MD Bilirubin Ql (U) 0.15 mg/dL Low 0.3-1.2 [facility] Comment on above: Performed By: #### P HEP, HIVCMB #### [address] [address] Content Designer: Alvino Davila MD #### CP, CBC, HCG #### [facility] [address] [place] [address] Content Designer: Luis A Peng MD BUN/CRE Ratio 20 Normal 9-20 [facility] Comment on above: Performed By: #### P HEP, HIVCMB #### [address] [address] Content Designer: Alvino Davila MD #### CP, CBC, HCG #### [facility] [address] [place], [place] 3635783 Content Designer: Luis A Peng MD Calcium [Mass/Vol] 9.4 mg/dL Normal 8.6-10.[address] [facility] Comment on above: Performed By: #### P HEP, HIVCMB #### [address] [address] Content Designer: Alvino Davila MD #### CP, CBC, HCG #### [facility] [address] [place] [address] [place], [place] 2504683 Content Designer: Luis A Peng MD Chloride [Moles/Vol] 97 mmol/L Low 98-107 [facility] Comment on above: Performed By: #### P HEP, HIVCMB #### [address] [address] Content Designer: Alvino Davila MD #### CP, CBC, HCG #### [facility] [address] [place] [address] [place], [place] 0654983 Content Designer: Luis A Peng MD CO2 [Moles/Vol] 28 mmol/L Normal 20-31 [facility] Comment on above: Performed By: #### P HEP, HIVCMB #### [address] [address] Content Designer: Alvino Davila MD #### CP, CBC, HCG #### [facility] [address] [place], [place] 0933583 Content Designer: Luis A Peng MD Creatinine [Mass/Vol] 0.55 mg/dL Normal 0.50-0.90 [facility] Comment on above: Performed By: #### P HEP, HIVCMB #### [address] [address] Content Designer: Alvino Davila MD #### CP, CBC, HCG #### [facility] [address] [place], [place] 1059383 Content Designer: Luis A Peng MD GFR, Amer >60 Normal >60 [facility] Comment on above: Performed By: #### P HEP, HIVCMB #### [address] [address] Content Designer: Alvino Davila MD #### CP, CBC, HCG #### [facility] [address] [place] [address] [place]. [place], [place] 2490983 Content Designer: Luis A Peng MD GFR,non Amer >60 Normal >60 [facility] Comment on above: Performed By: #### P HEP, HIVCMB #### [address] [address] Content Designer: Alvino Davila MD #### CP, CBC, HCG #### [address] [place], [place] 5936483 Content Designer: Luis A Peng MD Glucose [Mass/Vol] 85 mg/dL Normal 70-[address] [facility] Comment on above: Performed By: #### P HEP, HIVCMB #### [address] [address] Content Designer: Alvino Davila MD #### CP, CBC, HCG #### [address] [place], [place] 2380383 Content Designer: Luis A Peng MD Potassium [Moles/Vol] 4.3 mmol/L Normal 3.7-5.3 [facility] Comment on above: Performed By: #### P HEP, HIVCMB #### [address] [address] Content Designer: Alvino Davila MD #### CP, CBC, HCG #### [address] [place], [place] 2792583 Content Designer: Luis A Peng MD Protein [Mass/Vol] 6.7 g/dL Normal 6.4-8.[address] [facility] Comment on above: Performed By: #### P HEP, HIVCMB #### [address] [address] Content Designer: Alvino Davila MD #### CP, CBC, HCG #### [address] [place] [address] Content Designer: Luis A Peng MD Sodium [Moles/Vol] 134 mmol/L Low 135-[address] [facility] Comment on above: Performed By: #### P HEP, HIVCMB #### [address] [address] Content Designer: Alvino Davila MD #### CP, CBC, HCG #### [address] [place] [address] Content Designer: Luis A Peng MD Staging: Normal [facility] Comment on above: Result Comment: Stag e 1: Some kidney damage normal GFR Stage 2: Mild kidney damage GFR 60-89 Stage 3: Moderate kidney damage GFR 30-59 Stage 4: Severe kidney damage GFR 15-29 Stage 5: Severe kidney damage GFR <15 ESRD - chronic treatment by dialysis or transplant Performed By: #### P HEP, HIVCMB #### [address] [address] Content Designer: Alvino Davila MD #### CP, CBC, HCG #### [address] [place] [address] Content Designer: Luis A Peng MD Urea nitrogen [Mass/Vol] 11 mg/dL Normal 6-[address] [facility] Comment on above: Performed By: #### P HEP, HIVCMB #### [address] [address] Content Designer: Alvino Davila MD #### CP, CBC, HCG #### [facility] [address] [place] [address] Content Designer: Luis A Peng MD Comprehensive Metabolic Pane liu 01-01-2020 Albumin [Mass/Vol] 4.2 g/dL 3.5 - 5.2 g/dL [place] Albumin/Globulin [Mass ratio] 1.7 {ratio} [place] ALP [Catalytic activity/Vol] 69 U/L 35 - 104 U/L [place] ALT [Catalytic activity/Vol] 78 U/L High 5 - 33 U/L [place] Anion gap [Moles/Vol] 9 mmol/L 9 - 17 mmol/L [place] AST [Catalytic activity/Vol] 44 U/L High <32 [place] Bilirubin Ql (U) 0.15 mg/dL Low 0.3 - 1.2 mg/dL [place] Bun/Cre Ratio 20 [place] Calcium [Mass/Vol] 9.4 mg/dL 8.6 - 10. 4 mg/dL [place] Chloride [Moles/Vol] 97 mmol/L Low 98 - 107 mmol/L [place] CO2 [Moles/Vol] 28 mmol/L 20 - 31 mmol/L [place] Creatinine [Mass/Vol] 0.55 mg/dL 0.5 - 0.9 mg/d L [place] GFR >60 >60 mL/min [place] GFR Non- >60 >60 mL/min [place] Glucose [Mass/Vol] 85 mg/dL 70 - 99 mg/dL [place] Interpretation and review of laboratory results Abnormal [place] Potassium [Moles/Vol] 4.3 mmol/L 3.7 - 5.3 mmol/L [place] Protein [Mass/Vol] 6.7 g/dL 6.4 - 8.3 g/dL [place] Sodium [Moles/Vol] 134 mmol/L Low 135 - 144 mmol/L [place] Urea nitrogen [Mass/Vol] 11 mg/dL 6 - 20 mg/dL [place] HCG Qualitative, Serumon hCG Qual Negative NEGATIVE [place] Comment on above: Specimens with hCG l evels near the threshold of the test (25 mIU/mL) may give a negative or indeterminate result. In such cases, another test should be performed with a new specimen in 48-72 hours. If early is suspected clinically in this setting, correlation with quantitative serum b-hCG level is suggested. [facility] has confirmed the use of plasma for this test. This has not been cleared or approved by the U.S. Food and Drug Administration. The FDA has determined that such clearance is not necessary. HCG Screen, Bloodon 01-01-20 20 HCG Qn Negative Normal NEG [facility] Comment on above: Result Comment: Spec imens with hCG levels near the threshold of the test (25 mIU/mL) may give a negative or indeterminate result. In such cases, another test should be performed with a new specimen in 48-72 hours. If early is suspected clinically in this setting, correlation with quantitative serum b-hCG level is suggested. [facility] has confirmed the use of plasma for this test. This has not been cleared or approved by the U.S. Food and Drug Administration. The FDA has determined that such clearance is not necessary. Performed By: #### P HEP, HIVCMB #### [id number] [place], [place] [id number] Content Designer: Alvino Davila MD #### CP, CBC, HCG #### [facility] [address] [place] [address] Content Designer: Luis A Peng MD HIV Ag/Abon 01-01-2020 HIV Ag/Ab NONREACTIVE Normal NR [facility] Comment on above: Result Comment: No l aboratory evidence of HIV infection. If acute HIV infection is suspected, consider testing for HIV-1 RNA. Performed By: #### P HEP, HIVCMB #### [facility] [address] [place], [place] [id number] Content Designer: Alvino Davila MD #### CP, CBC, HCG #### [address] [place], [place] [id number] Content Designer: Luis A Peng MD HIV Screenon 01-01-2020 HIV Ag/Ab NONREACTIVE NONREACTIVE [place], [place] Comment on above: No laboratory eviden ce of HIV infection. If acute HIV infection is suspected, consider testing for HIV-1 RNA. Hepatitis Acute [facility] 12-31 Hep A Ab,IgM NONREACTIVE Normal [facility] Comment on above: Performed By: #### P HEP, HIVCMB #### [address] [address] Content Designer: Alvino Davila MD #### CP, CBC, HCG #### [address] [place], [place] [id number] Content Designer: Luis A Peng MD Hep B Core Ab,IgM NONREACTIVE Normal [facility] Comment on above: Performed By: #### P HEP, HIVCMB #### [address] [address] Content Designer: Alvino Davila MD #### CP, CBC, HCG #### [address] [place], [place] [id number] Content Designer: Luis A Peng MD Hep B Surf Ag NONREACTIVE Normal [facility] Comment on above: Performed By: #### P HEP, HIVCMB #### [address] [address] Content Designer: Alvino Davila MD #### CP, CBC, HCG #### [address] [place], [place] [id number] Content Designer: Luis A Peng MD Hep C Ab NONREACTIVE [facility] Comment on above: Result Comment: The [...] Performed By: #### P HEP, HIVCMB #### [facility] [address] [place] [address] Content Designer: Alvino Davila MD #### CP, CBC, HCG #### [facility] [address] [place] [address] Content Designer: Luis A Peng MD Hepatitis Panel, Acuteon HAV IgM IA Qn (S) NONREACTIVE NONREACTIVE [place] Hep B Core Ab, IgM NONREACTIVE NONREACTIVE [place], [place] Hepatitis B Surface Ag NONREACTIVE NONREACTIVE [place] Hepatitis C Ab NONREACTIVE NONREACTIVE [place], [place] Comment on above: The hepatitis C [...] predicted among non-blacks MDRD (S/P/Bld) [Vol rate/Area] [place] Comment on above: Stage 1: Some [...] body mass. Additional eGFR calculator available at: http://www.[employer].Adzuna/multiple_crcl_2012.htm Vital Signs Date Time Vital Sign Value Performing Clinician Ld blackmon 06-07-2025 10:17-0400 Body mass index (BMI) [Ratio] 27.46 kg/m2 Mee Yary DO Work Phone: [facility] 06-07-2025 10:17-0400 Body weight 74.84 kg Mee Yary DO Work Phone: [facility] 06-07-2025 10:17-0400 Diastolic blood pressure 74 mm[Hg] Mee Yary DO Work Phone: [facility] 06-07-2025 10:17-0400 Systolic blood pressure 118 mm[Hg] Mee Yary DO Work Phone: [facility] 05-30-2025 09:30-0400 Body height 165.1 cm Nohemy [...] 26.46 kg/m2 Mee Yary DO Work Phone: [facility] 05-16-2025 10:59-0400 Body weight 72.12 kg Mee Yary DO Work Phone: [facility] 05-16-2025 10:59-0400 Diastolic blood pressure 70 mm[Hg] Mee Yary DO Work Phone: [facility] 05-16-2025 10:59-0400 Systolic blood pressure 110 mm[Hg] Mee Yary DO Work Phone: [facility] 05-02-2025 15:42-0400 Body mass index (BMI) [Ratio] 26.26 kg/m2 Mee Yary DO Work Phone: [facility] 05-02-2025 15:42-0400 Body weight 71.58 kg Mee Yary DO Work Phone: [facility] 05-02-2025 15:42-0400 Diastolic blood pressure 70 mm[Hg] Mee Yary DO Work Phone: [facility] 05-02-2025 15:42-0400 Systolic blood pressure 104 mm[Hg] Mee Yary DO Work Phone: [facility] 04-18-2025 13:35-0400 Body mass index (BMI) [Ratio] 25.79 kg/m2 Mee Yary DO Work Phone: [facility] 04-18-2025 13:35-0400 Body weight 70.31 kg Mee Yary DO Work Phone: [facility] 04-18-2025 13:35-0400 Diastolic blood pressure 64 mm[Hg] Mee Yary DO Work Phone: [facility] 04-18-2025 13:35-0400 Systolic blood pressure 112 mm[Hg] Mee Yary DO Work Phone: [facility] 04-06-2025 11:47-0400 Body mass index (BMI) [Ratio] 25.76 kg/m2 [facility] Nurse [facility] 04-06-2025 11:47-0400 Body weight 70.22 kg Noms [...] End: 06-07-2025 Office outpatient visit 15 minutes Mee Yary DO Work Phone: [facility] Comment on above: Third trimester preg helder ([facility]); 32 weeks gestation of ([facility]); H/O opioid abuse ([facility]); History of placental abruption; Diabetes mellitus screening Start: 06-05-2025 End: 06-05-2025 Clinisync Result Encounter Mee Yary DO Work Phone: [facility] Unsolicited Start: 06-05-2025 End: 06-05-2025 Clinisync Result Encounter Mee Yary DO Work Phone: [facility] Unsolicited Start: 05-30-2025 End: 05-30-2025 Chart abstracting Nohemy Hernandez MD Work Phone: [facility] Start: 05-30-2025 End: 05-30-2025 Office outpatient new 45 minutes Nohemy Hernandez MD Work Phone: [facility]- [facility] at [facility] Comment on above: History of placental abruption (Primary Dx); Hepatitis C virus infection without hepatic coma, unspecified chronicity Start: 05-30-2025 End: 05-30-2025 ambulatory MEE R YARY [facility] Start: 05-21-2025 End: 05-21-2025 Clinisync Result Encounter [...] on above: 29 weeks gestation o f ([facility]); Third trimester ([facility]); Request for sterilization; H/O opioid abuse ([facility]); History of placental abruption Start: 05-16-2025 End: 05-16-2025 ambulatory MEE YARY Not Available Start: 05-02-2025 End: 05-02-2025 ambulatory MEE YARY Not Available Start: 05-02-2025 End: 05-02-2025 Office outpatient visit 15 minutes Mee Yary DO Work Phone: [facility] Comment on above: Second trimester pre gnancy ([facility]); 27 weeks gestation of ([facility]); Request for sterilization; H/O opioid [...] Comment on above: Second trimester pre gnancy ([facility]); 25 weeks gestation of ([facility]) Start: 04-09-2025 End: 04-09-2025 Clinisync Result Encounter Paradise MORROW Work Phone: [facility] External Department Unsolicited Start: 04-09-2025 End: 04-09-2025 Clinisync Result Encounter Paradise MORROW Work Phone: [facility] External Department Unsolicited Start: 04-06-2025 End: 04-06-2025 Office outpatient visit 5 minutes [facility] Yary Nurse [facility] Comment on above: GA: 23w6d [...] 03-27-2021 End: 03-28-2021 ambulatory Helder Monk MD Facility:[facility] Start: 12-06-2020 End: 12-07-[address] [facility] Start: 12-06-2020 End: 12-06-2020 Subsequent hospital visit by physician [facility] Start: 11-11-2020 End: 11-12-[address] [facility] Start: 05-30-2020 End: 05-31-[address] [facility] Start: 05-30-2020 End: 05-30-2020 Subsequent hospital visit by physician [facility] Start: 01-01-2020 End: 01-02-[address] [facility] Start: 01-01-2020 End: 01-01-2020 Subsequent hospital visit by physician [facility] Start: 09-20-2018 End: 09-21-2018 Patient encounter procedure Sidney Nava Facility:[id number] Procedures Date Procedure Procedure Detail Performing Clinician [...] Not In System Ref Prov Start: 05-21-2025 [facility] DRUG SCREEN RAPI D (URINE) Mee [...] Start: 07-05-2025 End: 07-05-2025 Patient encounter procedure [facility] - [facility] Start: 07-02-2025 Influenza vaccination N [facility] Start: 06-20-2025 End: 06-20-2025 Patient encounter procedure 06/20/2025 2:30 PM EDT Routine [facility] [address] [place] [id number] Mee Pringle DO [address] [place] [address] [facility] Start: 05-30-2025 End: 05-30-2026 US [...] Procedure [facility] [address] [place] [address] [facility] Start: 05-30-2025 Subsequent hospital visit by physician 05/30/2025 9:15 AM EDT Hospital Encounter [facility] [address] [place] [address] [facility] Start: 05-16-2025 End: 11-16-2025 US biophysical profile w non stress test US biophysical profile w non stress test Imaging Routine H/O opioid abuse ([facility]) History of placental abruption Expected: 05/16/2025 (Approximate), Expires: 11/16/2025 [facility] Work Phone: Comment on above: Expected: 05/16/2025 (Approximate), Expires: 11/16/2025 Start: 05-16-2025 End: 05-16-2025 Patient encounter procedure [facility] Comment on above: Arrived Start: 05-02-2025 End: 05-02-2025 Patient encounter procedure 05/02/2025 3:20 PM EDT Routine [facility] [address] [place] [id number] Mee Pringle, [address] [place] [address] [facility] Start: 04-18-2025 End: 08-18-2025 US for US OB follow up transabdominal approach Imaging Routine Second trimester ([facility]) Expected: 04/18/2025, Expires: 08/18/2025 [facility] Work Phone: Comment on above: Expected: 04/18/2025 , Expires: 08/18/2025 Start: 04-18-2025 End: 04-18-2025 Patient encounter procedure 04/18/2025 1:30 PM EDT Routine [facility] [address] [place] [phone] Mee Pringle, [address] [facility] [address] [place] [address] [facility] Start: 04-06-2025 End: 04-06-2026 ABO/Rh ABO/Rh Lab Routine Missed menses , unspecified gestational age ([facility]) Expected: 04/06/2025 (Approximate), Expires: 04/06/2026 [facility] Comment on above: Expected: 04/06/2025 (Approximate), Expires: 04/06/2026 Start: 04-06-2025 End: 04-06-2026 Blood type and Indirect antibody screen panel - Blood Type and screen Lab Routine Missed menses , unspecified gestational age ([facility]) Expected: 04/06/2025 (Approximate), Expires: 04/06/2026 [facility] Work Phone: Comment on above: Expected: 04/06/2025 (Approximate), Expires: 04/06/2026 Start: 04-06-2025 End: 04-06-2026 CBC panel - Blood by Automated count CBC Lab Routine Diabetes mellitus screening Expected: 04/06/2025 (Approximate), Expires: 04/06/2026 [facility] Comment on above: Expected: 04/06/2025 (Approximate), Expires: 04/06/2026 Start: 04-06-2025 End: 04-06-2026 Drugs of abuse panel - Urine by Screen method Rapid drug screen, urine Lab Routine , unspecified gestational age ([facility]) Encounter for supervision of normal first in first trimester ([facility]) Expected: 04/06/2025 (Approximate), Expires: 04/06/2026 [facility] Comment on above: Expected: 04/06/2025 (Approximate), Expires: 04/06/2026 Start: 04-06-2025 End: 04-06-2026 Measurement of glucose 1 hour after glucose challenge for glucose tolerance test Glucose tolerance, 1 hour Lab Routine Diabetes mellitus screening Expected: 04/06/2025 (Approximate), Expires: 04/06/2026 [facility] Comment on above: Expected: 04/06/2025 (Approximate), Expires: 04/06/2026 Start: 04-06-2025 End: 07-07-2025 US for US OB 14+ weeks anatomy scan Imaging Routine Screening, , for anatomic survey ([facility]) Expected: 04/06/2025, Expires: 07/07/2025 [facility] Comment on above: Expected: 04/06/2025 , Expires: 07/07/2025 Start: 07-02-2024 COVID-19 Vaccine ( season) COVID-19 Vaccine ( season) [facility] Start: 07-02-2024 Influenza vaccination Influenza Vacc ine (#1) [facility] Start: 2022 Screening for malign ant neoplasm of cervix [facility] Start: 07-02-2020 Influenza vaccination Flu vaccine (# 1) [place] Start: 2013 Screening for malign ant neoplasm of cervix Pap Smear [facility] Start: 2011 DTaP,Tdap and Td Vaccines (1 [...] culture Microbiology Routine Missed menses Ordered: 04/06/2025 [facility] [employer] Comment on above: Ordered: 04/06/2025 End: 05-30-2026 Beta-2 glycoprotein antibodies Beta-2 glycoprotein antibodies Lab Routine History of placental abruption 1 Occurrences starting 05/30/2025 until 05/30/2026 [facility] Comment on above: 1 Occurrences starti ng 05/30/2025 until 05/30/2026 CBC W Auto Different ial panel - Blood CBC and differential Lab Routine Missed menses , unspecified gestational age ([facility]) Ordered: 04/06/2025 [employer] Comment on above: Ordered: 04/06/2025 End: 05-30-2026 Comprehensive metabolic 2000 panel - Serum or Plasma Comprehensive metabolic panel Lab Routine History of placental abruption Hepatitis C virus infection without hepatic coma, unspecified chronicity 1 Occurrences starting 05/30/2025 until 05/30/2026 [employer] Work Phone: Comment on above: 1 Occurrences starti ng 05/30/2025 until 05/30/2026 End: 05-30-2026 DRVVT DRVVT Lab Routine History of placental abruption 1 Occurrences starting 05/30/2025 until 05/30/2026 [facility] [employer] Comment on above: 1 Occurrences starti ng 05/30/2025 until 05/30/2026 Hemoglobin A1c/Hemoglobin.total in Blood Hemoglobin A1c Lab Routine Missed menses , unspecified gestational age ([facility]) Ordered: 04/06/2025 [employer] Comment on above: Ordered: 04/06/2025 Hemoglobin A1c/Hemoglobin.total in Blood Hemoglobin A1c Lab Routine Diabetes mellitus screening Ordered: 06/07/2025 [employer] Work Phone: Comment on above: Ordered: 06/07/2025 Hepatitis B virus surface Ag [Presence] in Serum or Plasma by Immunoassay Hepatitis B surface antigen Lab Routine Missed menses , unspecified gestational age ([facility]) Ordered: 04/06/2025 [facility] Comment on above: Ordered: 04/06/2025 Hepatitis C virus Ab [Presence] in Serum or Plasma by Immunoassay Hepatitis C antibody Lab Routine Missed menses , unspecified gestational age ([facility]) Ordered: 04/06/2025 [facility] Comment on above: Ordered: 04/06/2025 HIV-1/HIV-2 antigen/antibody combination immunoassay HIV-1 and HIV-2 antibodies Lab Routine Missed menses , unspecified gestational age ([facility]) Ordered: 04/06/2025 [facility] Comment on above: Ordered: 04/06/2025 End: 05-30-2026 [...] , unspecified gestational age ([facility]) Ordered: 04/06/2025 [facility] Comment on above: Ordered: 04/06/2025 Rubella antibody, IgG Rubella an tibody, IgG Lab Routine Missed menses , unspecified gestational age ([facility]) Ordered: 04/06/2025 [facility] Comment on above: Ordered: 04/06/2025 Payers Date Payer Category Payer Medicaid (Managed Care) [facility] MEDICAID [id number] 2021 Unknown [address] [facility] HEALTH PLAN [facility] xxxxxxxxxxxx 2019-Present [phone] [address] [facility] [place] [address] xxxxxxxxxxxx [id number] [facility] HEALTH PLAN [facility] [id number] 2019-Present [phone] [place] [address] [id number] 2019 Medicaid HMO [employer] [employer] [id number] 1992 Unknown [id number] 2.16.840.1.339902.3.579.2. 173 1992 Unknown [id number] 2.16.840.1.334117.3.579.2. 173 1992 Unknown [id number] 2.16.840.1.056838.3.579.2. 173 1992 Unknown [id number] 2.16.840.1.234486.3.579.2. 173 1992 Unknown [id number] 2.16.840.1.485360.3.579.2. 196 1992 Unknown [id number] 2.16.840.1.482077.3.579.2. 593 1992 Unknown [id number] 2.16.840.1.154765.3.579.2. 593 1992 Unknown [id number] 2.16.840.1.386359.3.579.2. 593 1992 Unknown [id number] 2.16.840.1.734741.3.579.2. 593 1992 Unknown [id number] 2.16.840.1.444753.3.579.2. 593 1992 Unknown [id number] 2.16.840.1.391479.3.579.2. 593 1992 Unknown [id number] 2.16.840.1.826050.3.579.2. 1286 1992 Unknown [id number] 2.16.840.1.404400.3.579.2. 1286 1992 Unknown [id number] 2.16.840.1.886937.3.579.2. 1259 1992 Unknown [id number] 2.16.840.1.723303.3.579.2. 1259 1992 Unknown [id number] 2.16.840.1.313424.3.579.2. 1259 1992 Unknown [id number] 2.16.840.1.577221.3.579.2. 1259 1992 Unknown [id number] 2.16.840.1.324782.3.579.2. 1259 1959 Unknown [id number] Social History Date Type Detail [facility] Start: 1990 Sex Assigned At Not on file M [facility] Start: 04-23-2023 End: 05-30-2025 Tobacco smoking status ARIS Smokes tobacco daily [facility] History of [...] Alcoholic beverage intake Ex-drinker (finding) [facility] Childcare Unknown [facility] Start: 06-06-2015 Sex Female (finding) [facility] Start: 05-30-2025 Tobacco smoking stat [facility] Ex-smoker [facility] History of tobacco use Current smoker [facility] Clinical Notes 04-06-2025 to 06-07-2025 Karmen Lynn, RELIABILITY TECHNICIAN - 06/07/2025 9:40 AM Clive Raya, [facility] - 05/30/2025 10:30 AM Douglas Hernandez MD - 05/30/2025 10:30 AM Deangelo Aguilar, [facility] - 05/16/2025 11:00 AM EDT Note Date [...] Abscess of labia Bipolar disorder ([facility]) BMI 28.0-28.9,adult Drug abuse, opioid type [...] nursing note reviewed. Exam conducted with a material hauler present. Vitals: Estimated body mass index is 27.46 kg/m as calculated from the following: Height as of 12/09/22: 5' 5 . Weight as of this encounter: 165 lb. BP: 118/74 No LMP recorded. Patient is . ASSESSMENT & PLAN ICD-10-CM 1. Third trimester ([facility]) Z34.93 POCT urinalysis dipstick manually resulted 2. 32 weeks gestation of ([facility]) Z3A.32 3. H/O opioid abuse ([facility]) F11.11 4. History of placental abruption Z87.59 [...] Mee Pringle DO documented in this encounter [facility] 05-30-2025 History of Present illness Narrative Headache/epigastric [...] No Have you been seen here at [facility] in a previous ? No Recent ER visits or hospitalizations? No Bring blood sugar log or meter with you today? (Please bring them with you for every visit at [facility]) N/A Flu vaccine (Sep-December)? N/A Any [...] intensive care unit. The overall risk of Jmeqbbyf-Km-Rrvrk-Transmission (MTCT) during is approximately 4-8%. If the [...] C infection until after 18 months. The [place] [employer] of Pediatrics and CDC recommend screening [...] and counseling, coordination of care which was [id number]. documented in this encounter [facility] [...] nursing note reviewed. Exam conducted with a material hauler present. Vitals: Estimated body mass index is 26.46 kg/m as calculated from the following: Height as of 12/09/22: 5' 5 . Weight as of this encounter: 159 lb. BP: 110/70 No LMP recorded. Patient is . ASSESSMENT & PLAN ICD-10-CM 1. 29 weeks gestation of ([facility]) Z3A.29 POCT urinalysis dipstick manually resulted 2. Third trimester ([facility]) Z34.93 POCT urinalysis dipstick manually [...] Mee Pringle DO documented in this encounter [facility] 05-02-2025 History of Present illness Narrative Reason [...] nursing note reviewed. Exam conducted with a material hauler present. Vitals: Estimated body mass index is 26.26 kg/m as calculated from the following: Height as of 12/09/22: 5' 5 . Weight as of this encounter: 157 lb 12.8 oz. BP: 104/70 No LMP recorded. Patient is . ASSESSMENT & PLAN ICD-10-CM 1. Second trimester ([facility]) Z34.92 2. 27 weeks gestation of ([facility]) Z3A.27 3. Request for sterilization [...] Mee Pringle DO documented in this encounter [facility] 04-18-2025 History of Present illness Narrative Reason [...] nursing note reviewed. Exam conducted with a material hauler present. Vitals: Estimated body mass index is 25.79 kg/m as calculated from the following: Height as of 12/09/22: 5' 5 . Weight as of this encounter: 155 lb. BP: 112/64 No LMP recorded. Patient is . ASSESSMENT & PLAN ICD-10-CM 1. Second trimester ([facility]) Z34.92 POCT urinalysis dipstick manually resulted 2. 25 weeks gestation of ([facility]) Z3A.25 Return OB: Patient presents today [...] Mee Pringle DO documented in this encounter [facility] 04-06-2025 History of Present illness Narrative Reason [...] Abscess of labia Bipolar disorder ([facility]) BMI 28.0-28.9,adult Drug abuse, opioid type [...] supervision of normal first in first trimester ([facility]) - Rapid drug screen, urine; Future Screening, , for anatomic survey ([facility]) - US OB 14+ weeks anatomy scan; Future Diabetes mellitus screening - CBC; Future - Glucose tolerance, 1 hour; Future headache in second trimester ([facility]) - magnesium oxide (Mag-Ox) 400 MG tablet; [...] or undercooked meat, and stay away from [facility]. Patient has also been advised to [...] Diagnosis Missed menses , unspecified gestational age ([facility]) Encounter for supervision of normal first in first trimester ([facility]) Screening, , for anatomic survey ([facility]) Encounter for anatomic survey Diabetes mellitus screening Screening for diabetes mellitus headache in second trimester ([facility]) [facility] Diagnosis Second trimester ([facility]) state, incidental 25 weeks gestation of ([facility]) documented [facility]* [...] coma, unspecified chronicity [facility] Diagnosis Third trimester ([facility]-HCC) state, incidental 32 weeks gestation of ([facility]-HCC) H/O opioid abuse (CMS-HCC) History of placental abruption Diabetes mellitus screening Screening for diabetes mellitus documented in this encounter [facility] HealthcareInstructionsNot on filedocumented in this encounterPro[facility] SystemInstructionsNot on filedocumented in this encounterProMet[facility] SystemInstructionsNot on filedocumented in this encounterMer[facility] Summary Purpose Family History No Family History Records FoundNo Family History Records FoundNo Family History Records FoundNo Family History Records FoundNo Family History Records FoundNo Family History Records Found Advance Directives Documents on File Type Date Recorded 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 Advance Directives and Living Will Power of [employer] Senior Sergeant Documents on File Type Date Recorded 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 ACP-Advance Directive ACP-Power of [employer] Senior Sergeant Additional Source Comments INFORMATION SOURCE (unrecogn ized section and content) DATE CREATED AUTHOR 10/10/2018 [facility] DATE CREATED AUTHOR AUTHOR'S ORGANIZ ATION 12/06/2020 [facility] DATE CREATED AUTHOR AUTHOR'S ORGANIZ ATION 03/29/2021 [facility] DATE CREATED AUTHOR AUTHOR'S ORGANIZ ATION 12/10/2022 [facility] DATE CREATED AUTHOR AUTHOR'S ORGANIZ ATION 06/01/2025 [facility] DATE CREATED AUTHOR AUTHOR'S ORGANIZ ATION 06/09/2025 [facility] Special[facility] EPIC Reason for Visit (unrecogniz ed section and content) Reason Comments Amenorrhea Reason Comments Routine Visit Reason Comments Hepatitis C Current Everyday Smoker Care Teams (unrecognized sec tion and content) Lead Systems Analyst Relationship Specialty Start Date End Date No Pcp, [place] [address] PCP - General Family Medicine 04/27/20 Lead Systems Analyst Relationship Specialty Start Date End Date No Pcp, [place] [address] PCP - General Family Medicine 04/27/20 Lead Systems Analyst Relationship Specialty Start Date End Date No Pcp, [place] [address] PCP - General Family Medicine 04/27/20 FOR [...] BE BASED ON THE PRIMARY CLINICAL RECORDS. [facility]. provides no warranty or guarantee of the accuracy or completeness of information in this document.
[2025-06-14 23:30] VITALS: PULSE 78; TEMP 36.8
[2025-06-14 23:44] LABS: Glucose Urine UA NEGATIVE (NEGATIVE)
[2025-06-14 23:51] VITALS: BP 115/62; PULSE 78
[2025-06-14 23:53] LABS: Cast Seen? NONE SEEN #/LPF (NONE SEEN); Crystals Seen? None Seen #/HPF (None Seen); Urine Culture Indicated NO
== END 2025-06-14 23:59 | disposition home or self-care (01) ==
LOC: FBC 22:48
PROVIDERS: Admitting Provider Obstetrics & Gynecology; PCP Nurse Practitioner Family; Visit Provider Obstetrics & Gynecology
DX: O36.8130 Decreased fetal movements, third trimester, not applicable or unspecified (principal); O26.893 Other specified pregnancy related conditions, third trimester; Z3A.33 33 weeks gestation of pregnancy
CPT/HCPCS: 59025; 81001; G0378; G0379

== ENCOUNTER 2025-06-21 11:56 | Outpatient (OUT) | payer OTHER, SELFPAY ==
--- OUTSIDE RECORDS SUMMARY | 2025-06-21 12:02 | XMS_ITS | CCD ---
Author Organization [facility] Care Team Providers Care Biomass Technician Name Role Phone Sidney Nava Unavailable Unavailable Unavailable Primary Care Provider Unavailabl e Unavailable Primary Care Provider Unavailabl e CATRINA, MALINI Referring Unavailable CATRINA, MALINI Referring Unavailable CATRINA, MALINI Referring Unavailable CATIRNA, MALINI Referring Unavailable Lacho BRINK, Helder Ross Attending Unavailable PETROS, DR COOK Admitting [...] Translations: [PENICILLINS] Drug allergy (disorder) 3 [facility] Repository (20 sources) Penicillin G Drug Allergy 5 [facility] Work Phone: (3 sources) Penicillins Propensity to adverse reactions to drug 0 [facility] (6 sources) Penicillins Propensity to adverse reactions 0 [facility] Medications Current Medications Medication [...] Active magnesium oxide 400 mg oral tablet (20 sources) Start: 04-13-20 End: 04-13-20 26 take 1 tablet by mouth once daily magnesium oxide (Mag-Ox) 400 MG tablet Indications: headache in second trimester ([facility]) Take 1 tablet (400 mg) by mouth [...] 07-31-2022 Episodic Other aftercare (5 sources) 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 YELLOW YELLOW [facility] GLUCOSE URINE UA Negative NEGATIVE mg/dL [facility] Interpretation and review of laboratory results Abnormal [facility] Ketones Ql (U) Negative NEGATIVE mg/dL [facility] Leukocyte esterase Test strip Ql (U) TRACE Abnormal NEGATIVE [facility] NITRITE URINE Negative NEGATIVE [facility] pH (U) 7.0 [pH] 5.0 - 9.[address] [facility] PROTEIN URINE Negative NEG/TRACE mg/dL [facility] SPECIFIC GRAVITY URINE <=1.005 Abnormal 1.005 - 1.[address] [facility] URINE MICROSCOPIC INDICATED YES [facility] UROBILINOGEN URINE 0.2 EU/dL 0.2 - 1.0 EU/dL [facility] US OB BPP W NON-STRESS on 06-11-2025 [place] [address] Ultrasound Report Signed Patient: CARMELITA CASON MR#: [id number] : 1990 Acct:[id number] Age/Sex: 34 / F ADM Date: 06/11/25 Loc: US Attending Dr: Mee Pringle D.O. Ordering Physician: Mee Pringle D.O. Date of Service: 06/11/25 Procedure(s): US OB BPP w non-stress Accession Number(s): [id number] cc: ROMEO GAR ; Mee Pringle D.O. [place] [address] Patient Name: CARMELITA CASON MRN: [facility]:[id number] date: 1990 Sex: F Assigned Patient Location: [facility] Current Patient Location: Accession/Order Number: [id number] Exam Date: 06/11/2025 11:44 Report Date: 06/11/2025 11:45 At the request of: MEE PRINGLE DO Procedure: US OB BPP w non-stress Biophysical profile. Reason for exam: History of placental abruption COMPARISON: 06/05/2025 TECHNIQUE: Transabdominal imaging of the gravid uterus was obtained. FINDINGS: The laborer livestock reports a BPP of 8 out of 8. ELIZABETH is normal at 21.3 cm. heart rate 142 bpm. US/US OB BPP w non-stress IMPRESSION: BPP 8 out of 8. Impression dictated by: Serafin Sorto Jr., D.O. 06/11/2025 11:45 AM Dictation Location: [place] [address] Electronically authenticated by: [id number] Y Date: 06/11/2025 11:45 Dictated By: Serafin Sorto M.D. Signed By: 06/11/25 1148 DD/ 1145 TD/TT: Er Rn: [facility] Radiology, Radiologist, MD - 06/11/2025 [place] [address] Ultrasound Report Signed Patient: CARMELITA CASON MR#: [id number] : 1990 Acct:[id number] Age/Sex: 34 / F ADM Date: 06/11/25 Loc: US Attending Dr: Mee Pringle D.O. Ordering Physician: Mee Pringle D.O. Date of Service: 06/11/25 Procedure(s): US OB BPP w non-stress Accession Number(s): [id number] cc: ROMEO GAR ; Mee Pringle D.O. The [place] [id number] Patient Name: CARMELITA CASON MRN: [facility]:[id number] date: 1990 Sex: F Assigned Patient Location: [facility] Current Patient Location: Accession/Order Number: [id number] Exam Date: 06/11/2025 11:44 Report Date: 06/11/2025 11:45 At the request of: MEE PRINGLE DO Procedure: US OB BPP w non-stress Biophysical profile. Reason for exam: History of placental abruption COMPARISON: 06/05/2025 TECHNIQUE: Transabdominal imaging of the gravid uterus was obtained. FINDINGS: The laborer livestock reports a BPP of 8 out of 8. ELIZABETH is normal at 21.3 cm. heart rate 142 bpm. US/US OB BPP w non-stress IMPRESSION: BPP 8 out of 8. Impression dictated by: Serafin Sorto Jr., D.O. 06/11/2025 11:45 AM Dictation Location: [place] [address] Electronically authenticated by: [id number] Y Date: 06/11/2025 11:45 Dictated By: Serafin Sorto M.D. Signed By: 06/11/25 1148 DD/ 114 TD/TT: Er Rn: [facility] Radiology Study observation (narrative) [facility] US OB BPP W NON-STRESS Ordered By: Radiologist Radiology on 06-11-[address] [facility] Work Phone: MLR HEMOGLOBIN A1Con 025 Glucose [Mass/Vol] 85 mg/dL [facility] HbA1c (Bld) [Mass fraction] 4.6 % 4.5 - 6.2 % [facility] Comment on above: ADA RECOMMENDED LIMI T 4.0 - 6.0 ADA THERAPEUTIC TARGET < 7.0 ACTION SUGGESTED > 7.[address] [facility] Urinalysis macro (dipstick) panel (U)on 06-07-2025 Bilirubin, UA Negative Negative - 4(70) +++ mg/dL [facility] Blood, UA Negative Negative - 50 Amador/mcL [facility] Clarity, UA Clear [facility] Color, UA Yellow [facility] Glucose, UA Negative Negative - 1999(110) ++++ mg/dL [facility] Interpretation and review of laboratory results Abnormal [facility] Ketones, UA Negative Negative - 160(16) ++++ mg/dL [facility] Leukocytes, UA 3+ Negative - 500+++ Camille/mcL [facility] Nitrite, UA Negative Negative - Positive [facility] pH, UA 7.5 5 - [address] [facility] Protein, UA Negative Negative - 1999(20) ++++ mg/dL [facility] Spec Grav, UA 1.01 1 - 1.[address] [facility] Urobilinogen, UA 1.0 0.2 - 12 mg/dL [facility] OB BPP W NON-STRESS on 06-05-2025 [place] [address] Ultrasound Report Signed Patient: CARMELITA CASON MR#: [id number] : 1990 Acct:[id number] Age/Sex: 34 / F ADM Date: 06/05/25 Loc: US Attending Dr: Mee Pringle D.O. Ordering Physician: Mee Pringle D.O. Date of Service: 06/05/25 Procedure(s): US OB BPP w non-stress Accession Number(s): [id number] cc: ROMEO GAR ; Mee Pringle D.O. The [place] [address] Patient Name: CARMELITA CASON MRN: [facility]:[id number] date: 1990 Sex: F Assigned Patient Location: Current Patient Location: Accession/Order Number: [id number] Exam Date: 06/05/2025 11:53 Report Date: 06/05/2025 12:03 At the request of: MEE PRINGLE DO Procedure: US OB BPP w non-stress Biophysical profile. Reason for exam: History of opioid abuse COMPARISON: None TECHNIQUE: Transabdominal imaging of the gravid uterus was obtained. FINDINGS: The laborer livestock reports a BPP of 8 out of 8. ELIZABETH is normal at 21 cm. heart rate 135 bpm. US/US OB BPP w non-stress IMPRESSION: BPP 8 out of 8. Impression dictated by: Serafin Sorto Jr., D.O. 06/05/2025 12:03 PM Dictation Location: [place] [address] Electronically authenticated by: [id number] Y Date: 06/05/2025 12:03 Dictated By: Serafin Sorto M.D. Signed By: 06/05/25 1206 DD/ 1203 TD/TT: Er Rn: [facility] Radiology, Radiologist, - 06/05/2025 [place] [address] Ultrasound Report Signed Patient: CARMELITA CASON MR#: [id number] : 1990 Acct:[id number] Age/Sex: 34 / F ADM Date: 06/05/25 Loc: US Attending Dr: Mee Pringle D.O. Ordering Physician: Mee Pringle D.O. Date of Service: 06/05/25 Procedure(s): US OB BPP w non-stress Accession Number(s): [id number] cc: ROMEO GAR ; Mee Pringle D.O. The [place] [address] Patient Name: CARMELITA CASON MRN: [facility]:[id number] date: 1990 Sex: F Assigned Patient Location: US Current Patient Location: Accession/Order Number: [id number] Exam Date: 06/05/2025 11:53 Report Date: 06/05/2025 12:03 At the request of: MEE PRINGLE DO Procedure: US OB BPP w non-stress Biophysical profile. Reason for exam: History of opioid abuse COMPARISON: None TECHNIQUE: Transabdominal imaging of the gravid uterus was obtained. FINDINGS: The laborer livestock reports a BPP of 8 out of 8. ELIZABETH is normal at 21 cm. heart rate 135 bpm. US/US OB BPP w non-stress IMPRESSION: BPP 8 out of 8. Impression dictated by: Serafin Sorto Jr., D.O. 06/05/2025 12:03 PM Dictation Location: [place] [address] Electronically authenticated by: [id number] Y Date: 06/05/2025 12:03 Dictated By: Serafin Sorto M.D. Signed By: 06/05/25 1206 DD/ 120 TD/TT: Er Rn: [facility] Radiology Study observation (narrative) [facility] US OB BPP W NON-STRESS Ordered By: Radiologist Radiology on 06-05-[address] [facility] Work Phone: CBC without diffOrdered By: Paradise Raya on 05-21-2025 Hematocrit (Bld) [Volume fraction] 30.6 % [facility] Hemoglobin (Bld) [Mass/Vol] 10.8 g/dL [facility] Platelets (Bld) [#/Vol] 176 10*3/uL [facility] Rbc Mcv (Fl) By Automated Count 79.3 [facility] Drug Screen, Urineon 025 Amphetamine/Methamphet amine Negative [facility] Barbiturates Negative [facility] Benzodiazepines Negative [facility] Cocaine Metabolite Negative [place] Methadone Negative [facility] Opiates Negative [facility] Oxycodone Negative [facility] Phencyclidine Negative [facility] Thc Marijuana, Urine Negative [facility] HBV surface Ag IA Qlon 05-21 Hepatitis B Surface Antigen Negative [facility] HCV Ab IA Qlon 05-21-2025 HCV Ab Ql (S) Reactive [facility] HIV 1+2 Ab+HIV1 p24 Ag IA Ql on 05-21-2025 HIV 1&2 AB/AG Non-Reactive [facility] Hemoglobin A1con 05-21-2025 HbA1c (Bld) [Mass fraction] 4.7 % 4.0 - 6.0 % [facility] No Panel Informationon 05-[address] [facility] Rubella IGG immune statuson 05-21-2025 Rubella immune IgG [place] T. pallidum IgG+IgM IA Ql (S )on 05-21-2025 Syphilis Non-Reactive [facility] DRUG SCREEN RAPID (URINE )on 05-21-2025 AMPHETAMINE SCREEN URINE Negative NEGATIVE [facility] BARBITURATES SCREEN URINE Negative NEGATIVE [facility] BENZODIAZEPINES SCREEN URINE Negative NEGATIVE [facility] BUPRENORPHINE SCREEN URINE Positive Abnormal NEGATIVE [facility] Comment on above: DRUG [...] 300 ng/mL CANNABINOID SCREEN URINE Negative NEGATIVE [facility] COCAINE SCREEN URINE Negative NEGATIVE [facility] Interpretation and review of laboratory results Abnormal [facility] METHADONE SCREEN URINE Negative NEGATIVE NO [facility] METHAMPHETAMINES SCREEN URINE Negative NEGATIVE [facility] OPIATE SCREEN URINE Negative NEGATIVE [facility] OXYCODONE SCREEN URINE Negative NEGATIVE NO [facility] PHENCYCLIDINE SCREEN URINE Negative NEGATIVE [facility] TRICYCLIC ANTIDEPRESSANT URINE Negative NEGATIVE [facility] Type and screenon 05-21-2025 Abo/Rh(D) Positive [facility] Urinalysis macro (dipstick) panel (U)on 05-16-2025 Bilirubin, UA Negative Negative - 4(70) +++ mg/dL [facility] Blood, UA Negative Negative - 50 Amador/mcL [facility] Clarity, UA Clear [facility] Color, UA Yellow [facility] Glucose, UA Negative Negative - 1999(110) ++++ mg/dL [facility] Interpretation and review of laboratory results Abnormal [facility] Ketones, UA Negative Negative - 160(16) ++++ mg/dL [facility] Leukocytes, UA Moderate Negative - 500+++ Camille/mcL [facility] Nitrite, UA Negative Negative - Positive [facility] pH, UA 6.5 5 - [address] [facility] Protein, UA Negative Negative - 1999(20) ++++ mg/dL [facility] Spec Grav, UA 1.02 1 - 1.[address] [facility] Urobilinogen, UA 1.0 0.2 - 12 mg/dL [facility] Urinalysis macro (dipstick) panel (U)on 04-18-2025 Bilirubin, UA Negative Negative - 4(70) +++ mg/dL [facility] Blood, UA Negative Negative - 50 Amador/mcL [facility] Clarity, UA Clear [facility] Color, UA Yellow [facility] Glucose, UA Negative Negative - 1999(110) ++++ mg/dL [facility] Interpretation and review of laboratory results Abnormal [facility] Ketones, UA Negative Negative - 160(16) ++++ mg/dL [facility] Leukocytes, UA Positive Negative - 500+++ Camille/mcL [facility] Nitrite, UA Negative Negative - Positive [facility] pH, UA 7.5 5 - [address] [facility] Protein, UA Negative Negative - 1999(20) ++++ mg/dL [facility] Spec Grav, UA 1.015 1 - 1.[address] [facility] Urobilinogen, UA 0.2 0.2 - 12 mg/dL [facility] No Panel InformationOrdered By: Radiologist Radiology on 04-09-[address] [facility] Work Phone: No Panel Informationon 04-09 Radiology Study observation (narrative) [facility] US OB ANATOMYon 04-09-[address] [address] Ultrasound Report Signed Patient: CARMELITA CASON MR#: [id number] : 1990 Acct:[id number] Age/Sex: 34 / F ADM Date: 04/09/25 Loc: US Attending Dr: Paradise Olvera Ordering Physician: Paradise Olvera Date of Service: 04/09/25 Procedure(s): US OB anatomy Accession Number(s): [id number] cc: Paardise Olvera; ROMEO GAR [address] [address] Patient Name: CARMELITA CASON MRN: [id number]:[id number] date: 1990 Sex: F Assigned Patient Location: Current Patient Location: US Accession/Order Number: [id number] Exam Date: 04/09/2025 12:20 Report Date: 04/09/2025 [...] all 4 extremities were surveyed by the laborer livestock. No abnormalities were detected. The stomach, bladder, [...] Zelaya M.D. 04/09/2025 1:01 PM Dictation Location: [place] [address] Electronically authenticated by: [id number] Y Date: 04/09/2025 13:01 Dictated By: Raine Zelaya M.D. Signed By: 04/09/25 1304 DD/ 1301 TD/TT: Er Rn: [facility] Radiology, Radiologist, MD - 04/09/2025 [place] [address] Ultrasound Report Signed Patient: CARMELITA CASON MR#: [id number] : 1990 Acct:[id number] Age/Sex: 34 / F ADM Date: 04/09/25 Loc: US Attending Dr: Paradise Olvera Ordering Physician: Paradise Olvera Date of Service: 04/09/25 Procedure(s): US OB anatomy Accession Number(s): [id number] cc: Paradise Olvera; ROMEO GAR [place] [id number] Patient Name: CARMELITA CASON MRN: [facility]:[id number] date: 1990 Sex: F Assigned Patient Location: US Current Patient Location: US Accession/Order Number: [id number] Exam Date: 04/09/2025 12:20 Report Date: 04/09/2025 [...] all 4 extremities were surveyed by the laborer livestock. No abnormalities were detected. The stomach, bladder, [...] Zelaya M.D. 04/09/2025 1:01 PM Dictation Location: [place] [address] Electronically authenticated by: [id number] Y Date: 04/09/2025 13:01 Dictated By: Raine Zelaya M.D. Signed By: 04/09/25 1304 DD/ 1301 TD/TT: Er Rn: [facility] US [place] [address] Ultrasound Report Signed Patient: CARMELITA CASON MR#: [id number] : 1990 Acct:[id number] Age/Sex: 34 / F ADM Date: 04/09/25 Loc: US Attending Dr: Paradise Olvera Ordering Physician: Paradise Olvera Date of Service: 04/09/25 Procedure(s): US OB cervical length Accession Number(s): [id number] cc: Paradise Olvera; ROMEO GAR [facility] [address], [place] [address] Patient Name: CARMELITA CASON MRN: [id number]:[id number] date: 1990 Sex: F Assigned Patient Location: US Current Patient Location: US Accession/Order Number: [id number] Exam Date: 04/09/2025 12:20 Report Date: 04/09/2025 [...] all 4 extremities were surveyed by the laborer livestock. No abnormalities were detected. The stomach, bladder, [...] Zelaya M.D. 04/09/2025 1:01 PM Dictation Location: [place] [address] Electronically authenticated by: [id number] Y Date: 04/09/2025 13:01 Dictated By: Raine Zelaya M.D. Signed By: 04/09/25 1304 DD/ 1301 TD/TT: Er Rn: [facility] Radiology, Radiologist, MD - 04/09/[address] [address] Ultrasound Report Signed Patient: CARMELITA CASON MR#: [id number] : 1990 Acct:[id number] Age/Sex: 34 / F ADM Date: 04/09/25 Loc: US Attending Dr: Paradise Olvera Ordering Physician: Paradise Olvera Date of Service: 04/09/25 Procedure(s): US OB cervical length Accession Number(s): [id number] cc: Paradise Olvera; ROMEO GAR [address] [address] Patient Name: CARMELITA CASON MRN: [facility]:[id number] date: 1990 Sex: F Assigned Patient Location: US Current Patient Location: US Accession/Order Number: [id number] Exam Date: 04/09/2025 12:20 Report Date: 04/09/2025 [...] all 4 extremities were surveyed by the laborer livestock. No abnormalities were detected. The stomach, bladder, [...] Zelaya M.D. 04/09/2025 1:01 PM Dictation Location: [place] [address] Electronically authenticated by: [id number] Y Date: 04/09/2025 13:01 Dictated By: Raine Zelaya M.D. Signed By: 04/09/25 1304 DD/ 1301 TD/TT: Er Rn: [facility] HCG ( test) Ql (U)O rdered By: Arabella Hill on 04-06-2025 Interpretation and review of laboratory results Abnormal [facility] Preg Test, Ur Positive Negative [facility] Urinalysis macro (dipstick) panel (U)on 04-06-2025 Bilirubin, UA Negative Negative - 4(70) +++ mg/dL [facility] Blood, UA Negative Negative - 50 Amador/mcL [facility] Clarity, UA Clear [facility] Color, UA Yellow [facility] Glucose, UA Negative Negative - 2000(110) ++++ mg/dL [facility] Interpretation and review of laboratory results Normal [facility] Ketones, UA Negative Negative - 160(16) ++++ mg/dL [facility] Leukocytes, UA Negative Negative - 500+++ Camille/mcL [facility] Nitrite, UA Negative Negative - Positive [facility] pH, UA 6.5 5 - [address] [facility] Protein, UA Negative Negative - 1999(20) ++++ mg/dL [facility] Spec Grav, UA 1.02 1 - 1.[address] [facility] Urobilinogen, UA 1.0 0.2 - 12 mg/dL [facility] US OB L= 14 [place] [address] Ultrasound Report Signed Patient: CARMELITA CASON MR#: [id number] : 1990 Acct:[id number] Age/Sex: 34 / F ADM Date: 01/22/25 Loc: US Attending Dr: Mee Pringle D.O. Ordering Physician: Mee Pringle D.O. Date of Service: 01/22/25 Procedure(s): US OB <= 14 weeks fetus Accession Number(s): [id number] cc: ROMEO GAR ; Mee Pringle D.O. [place] [address] Patient Name: CARMELITA CASON MRN: [id number]:[id number] date: 1990 Sex: F Assigned Patient Location: Current Patient Location: Accession/Order Number: [id number] Exam Date: 01/22/2025 14:49 Report Date: 01/22/2025 [...] Sorto Jr., D.O.01/22/2025 2:50 PM Dictation Location: [employer] Electronically authenticated by: [id number] Y Date: 01/22/2025 14:50 Dictated By: Serafin Sorto M.D. Signed By: 01/22/25 1453 DD/ 1450 TD/TT: Er Rn: [facility] Radiology, Radiologist, - 01/22/2025 [place] [address] Ultrasound Report Signed Patient: CARMELITA CASON MR#: [id number] : 1990 Acct:[id number] Age/Sex: 34 / F ADM Date: 01/22/25 Loc: US Attending Dr: Mee Pringle D.O. Ordering Physician: Mee Pringle D.O. Date of Service: 01/22/25 Procedure(s): US OB <= 14 weeks fetus Accession Number(s): [id number] cc: ROMEO GAR ; Mee Pringle D.O. [place] [address] Patient Name: CARMELITA CASON MRN: [facility]:[id number] date: 1990 Sex: F Assigned Patient Location: US Current Patient Location: Accession/Order Number: [id number] Exam Date: 01/22/2025 14:49 Report Date: 01/22/2025 [...] Sorto Jr., D.O.01/22/2025 2:50 PM Dictation Location: [employer] Electronically authenticated by: [id number] Y Date: 01/22/2025 14:50 Dictated By: Serafin Sorto M.D. Signed By: 01/22/25 1453 DD/ 49 TD/TT: Er Rn: [facility] Radiology Study observation (narrative) [facility] US OB L= 14 WEEKS FETUSOrder ed By: Radiologist Radiology on 01-22-2025 [facility] Work Phone: [facility] PREG QUANT HCGon 025 HCG QUANTITATIVE 3026 mIU/mL [facility] Comment on above: 5-50 0.2-1 WEEK 50-500 1-2 WEEKS 100-5,000 2-3 WEEKS 500-10,000 3-4 WEEKS 1,000-50,000 4-5 WEEKS 10,000-100,000 5-6 WEEKS 15,000-200,000 6-8 WEEKS 10,000-100,000 2-[address] [facility] COMPLIANCE DRUG SCREENon PDF . Normal [facility] Comment on above: Performed By: #### D SDOALC #### [facility] [address] [place] [address] [address] Roberto Parmar Summary FINAL Normal [facility] Comment on above: Result Comment: ===== [...] is an expected metabolite of dextromethorphan, an cqwh-obk-nyojqsh or prescription cough suppressant. Levorphanol is a scheduled prescription medication. Dextrorphan cannot be distinguished from levorphanol by the method used for analysis. Guaifenesin PRESENT UNEXPECTED Guaifenesin may be administered as an ctzo-vnd-htnfhtc or prescription drug; it may also be [...] ===== Performed By: #### D SDOALC #### [facility] [address] [place] [address] Dr. Roberto Parmar URIC ACID RAND URINEon 09-03 Uric Acid, Urine 12.4 mg/dL Normal Not Estab. [facility] Comment on above: Performed By: #### U RICUR #### [facility] [address] [place] [address] Dr. Roberto Parmar DRUG SCREEN RAPID (URINE)on 09-02-2022 AMP Negative Normal NEGATIVE [facility] Comment on above: Performed By: #### D RUGRPD #### [facility] [address] [place] [address] Dr. Roberto Parmar BAR Negative Normal NEGATIVE [facility] Comment on above: Performed By: #### D RUGRPD #### [facility] [address] [place] [address] Dr. Roberto Parmar BUP Positive Abnormal NEGATIVE [facility] Comment on above: Performed By: #### D RUGRPD #### [facility] [address] [place] [address] Dr. Roberto Parmar BZO Positive Abnormal NEGATIVE [facility] Comment on above: Performed By: #### D RUGRPD #### [facility] [address] [place] [address] Dr. Roberto Parmar BRITTANY Negative Normal NEGATIVE [facility] Comment on above: Performed By: #### D RUGRPD #### [facility] [address] [place] [address] Dr. Roberto Parmar CUT-OFFS SEE BELOW Normal [facility] Comment on above: Result Comment: AMP [...] ng/mL Performed By: #### D RUGRPD #### [facility] [address] [place] [address] Dr. Roberto Parmar DRUG CUT HEADER DRUG CLASS TEST SYSTEM CUT-OFF CONCENTRATIONS ARE FOLLOWS: Normal [facility] Comment on above: Performed By: #### D RUGRPD #### [facility] [address] [place] [address] Dr. Roberto Parmar mAMP Negative Normal NEGATIVE [facility] Comment on above: Performed By: #### D RUGRPD #### [facility] [address] [place] [address] Dr. Roberto Parmar MTD Negative Normal NEGATIVE [facility] Comment on above: Performed By: #### D RUGRPD #### [facility] [address] [place] [address] Dr. Roberto Parmar OPI Negative Normal NEGATIVE [facility] Comment on above: Performed By: #### D RUGRPD #### [facility] [address] [place] [address] Dr. Roberto Parmar OXY Negative Normal NEGATIVE [facility] Comment on above: Performed By: #### D RUGRPD #### [facility] [address] [place] [address] Dr. Roberto Parmar PCP Negative Normal NEGATIVE [facility] Comment on above: Performed By: #### D RUGRPD #### [facility] [address] [address] [address] Roberto Parmar PPX Negative Normal NEGATIVE [facility] Comment on above: Performed By: #### D RUGRPD #### [facility] [address] [place], [place] [address] Dr. Roberto Parmar TCA Negative Normal NEGATIVE [facility] Comment on above: Performed By: #### D RUGRPD #### [facility] [address] [address] [address] Roberto Parmar THC Negative Normal NEGATIVE [facility] Comment on above: Performed By: #### D RUGRPD #### [facility] [address] [address] [address] Roberto Parmar US PELVIS AND TRANSVAGon [...] by: MAYUR ALLEN Date: 2022-07-13 07:21 Normal [facility] PAP ACOG PANEL 2: 23 to 31on 06-18-2022 . . Normal [facility] Comment on above: Performed By: #### [id number] #### [facility] [address] [place] [address] Dr. Roberto Parmar Age Gdln ACOG Testing 23- [facility] Comment on above: Performed By: #### 4 [id number] #### [facility] [address] [place] [address] Dr. Roberto Parmar DIAGNOSIS: Comment [facility] Comment on above: Result Comment: NEGA TIVE FOR INTRAEPITHELIAL LESION OR MALIGNANCY. Performed By: #### 4 [id number] #### [facility] [address] [place] [address] Dr. Roberto Parmar Methodology: Comment [facility] Comment on above: Result Comment: This liquid based ThinPrep(R) pap test was screened with the use of an image guided system. Performed By: #### 4 [id number] #### [facility] [address] [place] [address] Dr. Roberto Parmar Note: Comment [facility] Comment on above: Result Comment: The Pap smear is a screening test designed to aid in the detection of premalignant and malignant conditions of the uterine cervix. It is not a diagnostic procedure and should not be used as the sole means of detecting cervical cancer. Both false-positive and false-negative reports do occur. . Performed By: #### 4 [id number] #### [facility] [address] [place] [address] Dr. Roberto Parmar Performed by: Comment Normal [facility] Comment on above: Result Comment: Kishore De Dios Process Technician (ASCP) Performed By: #### 4 [id number] #### [facility] [address] [place] [address] Dr. Roberto Parmar Reflex Criteria: Comment [facility] Comment on above: Result Comment: The HPV DNA reflex criteria were not met with this specimen result therefore, no HPV testing was performed. . Performed By: #### 4 [id number] #### [facility] [address] [place] [address] Dr. Roberto Parmar Specimen adequacy: Comment [facility] Comment on above: Result Comment: Sati sfactory for evaluation. Endocervical and/or squamous metaplastic cells (endocervical component) are present. Performed By: #### 4 [id number] #### [facility] [address] [place] [address] [address] [address] Roberto Parmar CBCon 12-06-2020 Erythrocyte distribution width (RBC) [Ratio] 13.6 % Normal 11.8-14.4 [facility] Comment on above: Performed By: #### P HEP, HIVCMB #### [address] [address] Underwriting Internship: Alvino Davila MD #### CP, CBC, HCG #### [address] [place] [phone] Underwriting Internship: Luis A Peng MD Hematocrit (Bld) [Volume fraction] 44.1 % Normal 36.3-47.1 [facility] Comment on above: Performed By: #### P HEP, HIVCMB #### [address] [address] Underwriting Internship: Alvino Davila MD #### CP, CBC, HCG #### [address] [place] [address] Underwriting Internship: Luis A Peng MD Hemoglobin (Bld) [Mass/Vol] 14.1 g/dL Normal 11.9-15.1 [facility] Comment on above: Performed By: #### P HEP, HIVCMB #### [address] [address] Underwriting Internship: Alvino Davila MD #### CP, CBC, HCG #### [facility] [address] [place] [address] [place] [address] Underwriting Internship: Luis A Peng MD MCH (RBC) [Entitic mass] 25.4 pg Normal 25.2-33.5 [facility] Comment on above: Performed By: #### P HEP, HIVCMB #### [address] [address] Underwriting Internship: Alvino Davila MD #### CP, CBC, HCG #### [address] [place] [phone] Underwriting Internship: Luis A Peng MD MCHC (RBC) [Mass/Vol] 32.0 g/dL Normal 28.4-34.8 [facility] Comment on above: Performed By: #### P HEP, HIVCMB #### [address] [address] Underwriting Internship: Alvino Davila MD #### CP, CBC, HCG #### [address] [place] [phone] Underwriting Internship: Luis A Peng MD MCV (RBC) [Entitic vol] 79.5 fL Low 82.6-102.9 [facility] Comment on above: Performed By: #### P HEP, HIVCMB #### [address] [address] Underwriting Internship: Alvino Davila MD #### CP, CBC, HCG #### [address] [place] [phone] Underwriting Internship: Luis A Peng MD NRBC Automated 0.0 per 100 WBC Normal 0.0 [facility] Comment on above: Performed By: #### P HEP, HIVCMB #### [address] [address] Underwriting Internship: Alvino Davila MD #### CP, CBC, HCG #### [address] [place] [phone] Underwriting Internship: Luis A Peng MD Platelet mean volume (Bld) [Entitic vol] 11.8 fL Normal 8.1-13.5 [facility] Comment on above: Performed By: #### P HEP, HIVCMB #### [facility] [address] [place] [address] Underwriting Internship: Alvino Davila MD #### CP, CBC, HCG #### [facility] [address] [place] [address] [place] [address] Underwriting Internship: Luis A Peng MD Platelets (Bld) [#/Vol] 238 10*3/uL Normal 138-453 [facility] Comment on above: Performed By: #### P HEP, HIVCMB #### [address] [address] Underwriting Internship: Alvino Davila MD #### CP, CBC, HCG #### [address] [place], [place] [phone] Underwriting Internship: Luis A Peng MD RBC (Bld) [#/Vol] 5.55 10*6/uL High 3.95-5.11 [facility] Comment on above: Performed By: #### P HEP, HIVCMB #### [address] [address] Underwriting Internship: Alvino Davila MD #### CP, CBC, HCG #### [address] [place], [place] [phone] Underwriting Internship: Luis A Peng MD WBC (Bld) [#/Vol] 8.6 10*3/uL Normal 3.5-11.3 [facility] Comment on above: Performed By: #### P HEP, HIVCMB #### [facility] [address] [place] [address] Underwriting Internship: Alvino Davila MD #### CP, CBC, HCG #### [facility] [address] [place], [place] [phone] Underwriting Internship: Luis A Peng MD Erythrocyte distribution width (RBC) [Ratio] 13.6 % 11.8 - 14.4 % [place], [place] Hematocrit (Bld) [Volume fraction] 44.1 % 36.3 - 47.1 % [place] Hemoglobin (Bld) [Mass/Vol] 14.1 g/dL 11.9 - 15.1 g/dL [place] Interpretation and review of laboratory results Abnormal [place] MCH (RBC) [Entitic mass] 25.4 pg 25.2 - 33.5 pg [place] MCHC (RBC) [Mass/Vol] 32.0 g/dL 28.4 - 34.8 g/dL [place] MCV (RBC) [Entitic vol] 79.5 fL Low 82.6 - 102.9 fL [place] Platelet mean volume (Bld) [Entitic vol] 11.8 fL 8.1 - 13.5 fL [place] Platelets (Bld) [#/Vol] 238 10*3/uL [place] RBC (Bld) [#/Vol] 5.55 10*6/uL High 3.95 - 5.1 1 m/uL [place] WBC (Bld) [#/Vol] 8.6 10*3/uL [place] WBC (Bld) [#/Vol] 0.0 10*3/uL 0.0 per 100 WBC M [place], [place] Comp Metabolic Profon 2020 (cont.) Normal [facility] Comment on above: Result Comment: Aver age GFR for 20-29 years old: 116 mL/min/1.73sq m Chronic Kidney Disease: <60 mL/min/1.73sq m Kidney failure: <15 mL/min/1.73sq m eGFR calculated using average adult body mass. Additional eGFR calculator available at: http://www.RentMineOnline.ULURU/multiple_crcl_2011.htm Performed By: #### P HEP, HIVCMB #### [facility] [address] [place], [place] [phone] Underwriting Internship: Alvino Davila MD #### CP, CBC, HCG #### [facility] [address] [place], [place] [phone] Underwriting Internship: Luis A Peng MD Albumin [Mass/Vol] 4.6 g/dL Normal 3.5-5.2 [facility] Comment on above: Performed By: #### P HEP, HIVCMB #### [address] [address] Underwriting Internship: Alvino Davila MD #### CP, CBC, HCG #### [address] [place], [place] [phone] Underwriting Internship: Luis A Peng MD Albumin/Globulin [Mass ratio] 1.6 {ratio} Normal 1.0-2.5 [facility] Comment on above: Performed By: #### P HEP, HIVCMB #### [address] [address] Underwriting Internship: Alvino Davila MD #### CP, CBC, HCG #### [address] [place], [place] [phone] Underwriting Internship: Luis A Peng MD Alkaline Phos 81 U/L Normal 35-104 [facility] Comment on above: Performed By: #### P HEP, HIVCMB #### [address] [address] Underwriting Internship: Alvino Davila MD #### CP, CBC, HCG #### [address] [place], [place] [phone] Underwriting Internship: Luis A Peng MD ALT [Catalytic activity/Vol] 39 U/L High 5-33 [facility] Comment on above: Performed By: #### P HEP, HIVCMB #### [address] [address] Underwriting Internship: Alvino Davila MD #### CP, CBC, HCG #### [address] [place], [place] [phone] Underwriting Internship: Luis A Peng MD Anion gap [Moles/Vol] 12 mmol/L Normal 9-17 [facility] Comment on above: Performed By: #### P HEP, HIVCMB #### [address] [address] Underwriting Internship: Alvino Davila MD #### CP, CBC, HCG #### [address] [place], [place] [phone] Underwriting Internship: Luis A Peng MD AST [Catalytic activity/Vol] 28 U/L Normal <32 [facility] Comment on above: Performed By: #### P HEP, HIVCMB #### [address] [address] Underwriting Internship: Alvino Davila MD #### CP, CBC, HCG #### [address] [place], [place] 1434183 Underwriting Internship: Luis A Peng MD Bilirubin Ql (U) 0.26 mg/dL Low 0.3-1.2 [facility] Comment on above: Performed By: #### P HEP, HIVCMB #### [address] [address] Underwriting Internship: Alvino Davila MD #### CP, CBC, HCG #### [address] [place], [place] [phone] Underwriting Internship: Luis A Peng MD BUN/CRE Ratio 14 Normal 9-20 [facility] Comment on above: Performed By: #### P HEP, HIVCMB #### [address] [address] Underwriting Internship: Alvino Davila MD #### CP, CBC, HCG #### [address] [place] [address] Underwriting Internship: Luis A Peng MD Calcium [Mass/Vol] 10.1 mg/dL Normal 8.6-10.4 [facility] Comment on above: Performed By: #### P HEP, HIVCMB #### [address] [address] Underwriting Internship: Alvino Davila MD #### CP, CBC, HCG #### [facility] [address] [place] [phone] Underwriting Internship: Luis A Peng MD Chloride [Moles/Vol] 101 mmol/L Normal 98-107 [facility] Comment on above: Performed By: #### P HEP, HIVCMB #### [address] [address] Underwriting Internship: Alvino Davila MD #### CP, CBC, HCG #### [facility] [address] [place] [phone] Underwriting Internship: Luis A Peng MD CO2 [Moles/Vol] 26 mmol/L Normal 20-31 [facility] Comment on above: Performed By: #### P HEP, HIVCMB #### [address] [address] Underwriting Internship: Alvino Davila MD #### CP, CBC, HCG #### [facility] [address] [place] [phone] Underwriting Internship: Luis A Peng MD Creatinine [Mass/Vol] 0.49 mg/dL Low 0.50-0.90 [facility] Comment on above: Performed By: #### P HEP, HIVCMB #### [address] [address] Underwriting Internship: Alvino Davila MD #### CP, CBC, HCG #### [facility] [address] [place] [phone] Underwriting Internship: Luis A Peng MD GFR, Amer >60 Normal >60 [facility] Comment on above: Performed By: #### P HEP, HIVCMB #### [facility] [address] [place] [address] Underwriting Internship: Alvino Davila MD #### CP, CBC, HCG #### [facility] [address] [place], [place] [phone] Underwriting Internship: Luis A Peng MD GFR,non Amer >60 Normal >60 [facility] Comment on above: Performed By: #### P HEP, HIVCMB #### [address] [address] Underwriting Internship: Alvino Davila MD #### CP, CBC, HCG #### [facility] [address] [place], [place] [phone] Underwriting Internship: Luis A Peng MD Glucose [Mass/Vol] 101 mg/dL High 70-99 [facility] Comment on above: Performed By: #### P HEP, HIVCMB #### [address] [address] Underwriting Internship: Alvino Davila MD #### CP, CBC, HCG #### [facility] [address] [place] [address] Dr. [place], [place] [phone] Underwriting Internship: Luis A Peng MD Potassium [Moles/Vol] 4.2 mmol/L Normal 3.7-5.3 [facility] Comment on above: Performed By: #### P HEP, HIVCMB #### [address] [address] Underwriting Internship: Alvino Davila MD #### CP, CBC, HCG #### [facility] [address] [place], [place] [phone] Underwriting Internship: Luis A Peng MD Protein [Mass/Vol] 7.5 g/dL Normal 6.4-8.3 [facility] Comment on above: Performed By: #### P HEP, HIVCMB #### [address] [address] Underwriting Internship: Alvino Davila MD #### CP, CBC, HCG #### [facility] [address] [place] [address] Dr. [place], [place] [phone] Underwriting Internship: Luis A Peng MD Sodium [Moles/Vol] 139 mmol/L Normal 135-144 [facility] Comment on above: Performed By: #### P HEP, HIVCMB #### [address] [address] Underwriting Internship: Alvino Davila MD #### CP, CBC, HCG #### [address] [place] [address] Underwriting Internship: Luis A Peng MD Staging: Normal [facility] Comment on above: Result Comment: Stag e 1: Some kidney damage normal GFR Stage 2: Mild kidney damage GFR 60-89 Stage 3: Moderate kidney damage GFR 30-59 Stage 4: Severe kidney damage GFR 15-29 Stage 5: Severe kidney damage GFR <15 ESRD - chronic treatment by dialysis or transplant Performed By: #### P HEP, HIVCMB #### [address] [address] Underwriting Internship: Alvino Davila MD #### CP, CBC, HCG #### [address] [place] [address] Underwriting Internship: Luis A Peng MD Urea nitrogen [Mass/Vol] 7 mg/dL Normal 6-20 [facility] Comment on above: Performed By: #### P HEP, HIVCMB #### [address] [address] Underwriting Internship: Alvino Davila MD #### CP, CBC, HCG #### [address] [place] [address] Underwriting Internship: Luis A Peng MD Comprehensive Metabolic Pane liu 12-06-2020 Albumin [Mass/Vol] 4.6 g/dL 3.5 - 5.2 g/dL [place], [place] Albumin/Globulin [Mass ratio] 1.6 {ratio} [place] ALP [Catalytic activity/Vol] 81 U/L 35 - 104 U/L [place] ALT [Catalytic activity/Vol] 39 U/L High 5 - 33 U/L [place] Anion gap [Moles/Vol] 12 mmol/L 9 - 17 mmol/L [place] AST [Catalytic activity/Vol] 28 U/L <32 [place] Bilirubin Ql (U) 0.26 mg/dL Low 0.3 - 1.2 mg/dL [place] Bun/Cre Ratio 14 [place], [place] Calcium [Mass/Vol] 10.1 mg/dL 8.6 - 10. 4 mg/dL [place] Chloride [Moles/Vol] 101 mmol/L 98 - 107 mmol/L [place] CO2 [Moles/Vol] 26 mmol/L 20 - 31 mmol/L [place] Creatinine [Mass/Vol] 0.49 mg/dL Low 0.5 - 0.9 mg/d L [place] GFR >60 >60 mL/min [place] GFR Non- >60 >60 mL/min [place] Glucose [Mass/Vol] 101 mg/dL High 70 - 99 mg/dL [place] Interpretation and review of laboratory results Abnormal [place] Potassium [Moles/Vol] 4.2 mmol/L 3.7 - 5.3 mmol/L [place] Protein [Mass/Vol] 7.5 g/dL 6.4 - 8.3 g/dL [place] Sodium [Moles/Vol] 139 mmol/L 135 - 144 mmol/L [place] Urea nitrogen [Mass/Vol] 7 mg/dL 6 - 20 mg/dL [place] HCG Qualitative, Serumon hCG Qual Negative NEGATIVE [place] Comment on above: Specimens with hCG l evels near the threshold of the test (25 mIU/mL) may give a negative or indeterminate result. In such cases, another test should be performed with a new specimen in 48-72 hours. If early is suspected clinically in this setting, correlation with quantitative serum b-hCG level is suggested. [facility] has confirmed the use of plasma for this test. This has not been cleared or approved by the U.S. Food and Drug Administration. The FDA has determined that such clearance is not necessary. HCG Screen, Bloodon 12-06-19 21 HCG Qn Negative Normal NEG [facility] Comment on above: Result Comment: Spec imens with hCG levels near the threshold of the test (25 mIU/mL) may give a negative or indeterminate result. In such cases, another test should be performed with a new specimen in 48-72 hours. If early is suspected clinically in this setting, correlation with quantitative serum b-hCG level is suggested. [facility] has confirmed the use of plasma for this test. This has not been cleared or approved by the U.S. Food and Drug Administration. The FDA has determined that such clearance is not necessary. Performed By: #### P HEP, HIVCMB #### [address] [place], [place] [phone] Underwriting Internship: Alvino Davila MD #### CP, CBC, HCG #### [facility] [address] [place] [address] [place] [address] Underwriting Internship: Luis A Peng MD HIV Ag/Abon 12-06-2020 HIV Ag/Ab NONREACTIVE Normal NR [facility] Comment on above: Result Comment: No l aboratory evidence of HIV infection. If acute HIV infection is suspected, consider testing for HIV-1 RNA. Performed By: #### P HEP, HIVCMB #### [facility] [address] [place] [address] Underwriting Internship: Alvino Davila MD #### CP, CBC, HCG #### [facility] [address] [place] [address] Underwriting Internship: Luis A Pegn MD HIV Screenon 12-06-2020 HIV Ag/Ab NONREACTIVE NONREACTIVE [place] Comment on above: No laboratory eviden ce of HIV infection. If acute HIV infection is suspected, consider testing for HIV-1 RNA. Hepatitis Acute [place] 12-06 Hep A Ab,IgM NONREACTIVE Normal NR [facility] Comment on above: Performed By: #### P HEP, HIVCMB #### [address] [address] Underwriting Internship: Alvino Davila MD #### CP, CBC, HCG #### [facility] [address] [place] [address] [place] [address] Underwriting Internship: Luis A Peng MD Hep B Core Ab,IgM NONREACTIVE Normal [facility] Comment on above: Performed By: #### P HEP, HIVCMB #### [address] [address] Underwriting Internship: Alvino Davila MD #### CP, CBC, HCG #### [facility] [address] [place] [address] [place], [place] [phone] Underwriting Internship: Luis A Peng MD Hep B Surf Ag NONREACTIVE Normal [facility] Comment on above: Performed By: #### P HEP, HIVCMB #### [address] [address] Underwriting Internship: Alvino Davila MD #### CP, CBC, HCG #### [facility] [address] [place] [address] [place], [place] [phone] Underwriting Internship: Luis A Peng MD Hep C Ab REACTIVE Abnormal [facility] Comment on above: Result Comment: [...] Performed By: #### P HEP, HIVCMB #### [facility] [address] [place] [address] Underwriting Internship: Alvino Davila MD #### CP, CBC, HCG #### [facility] [address] [place] [place] [address] Underwriting Internship: Luis A Peng MD Hepatitis Panel, Acuteon HAV IgM IA Qn (S) NONREACTIVE NONREACTIVE [place] Hep B Core Ab, IgM NONREACTIVE NONREACTIVE [place] Hepatitis B Surface Ag NONREACTIVE NONREACTIVE [place] Hepatitis C Ab REACTIVE Abnormal NONREACTIVE [place], [place] Comment on above: The hepatitis C [...] Interpretation and review of laboratory results Abnormal [place] Metabolic Panelon 12-06-2020 GFR/1.73 sq M predicted among non-blacks MDRD (S/P/Bld) [Vol rate/Area] [place] Comment on above: Stage 1: Some [...] body mass. Additional eGFR calculator available at: http://www.RentMineOnline.ULURU/multiple_crcl_2012.htm CBCon 05-30-2020 Erythrocyte distribution width (RBC) [Ratio] 12.7 % Normal 11.8-14.4 [facility] Comment on above: Performed By: #### C P, HCG, CBC #### [facility] [address] [place] [address] [place] [address] Underwriting Internship: Luis A Peng MD #### HIVCMB, PHEP #### [address] [phone] Underwriting Internship: Alvino Davila MD Hematocrit (Bld) [Volume fraction] 39.2 % Normal 36.3-47.1 [facility] Comment on above: Performed By: #### C P, HCG, CBC #### [address] [place] [address] Underwriting Internship: Luis A Peng MD #### HIVCMB, PHEP #### [address] [phone] Underwriting Internship: Alvino Davila MD Hemoglobin (Bld) [Mass/Vol] 12.3 g/dL Normal 11.9-15.1 [facility] Comment on above: Performed By: #### C P, HCG, CBC #### [address] [place] [address] Underwriting Internship: Luis A Peng MD #### HIVCMB, PHEP #### [address] [phone] Underwriting Internship: Alvino Davila MD MCH (RBC) [Entitic mass] 26.2 pg Normal 25.2-33.5 [facility] Comment on above: Performed By: #### C P, HCG, CBC #### [address] [place] [address] Underwriting Internship: Luis A Peng MD #### HIVCMB, PHEP #### [address] [place], [place] [phone] Underwriting Internship: Alvino Davila MD MCHC (RBC) [Mass/Vol] 31.4 g/dL Normal 28.4-34.8 [facility] Comment on above: Performed By: #### C P, HCG, CBC #### [facility] [address] [place] [phone] Underwriting Internship: Luis A Peng MD #### HIVCMB, PHEP #### [address] [phone] Underwriting Internship: Alvino Davila MD MCV (RBC) [Entitic vol] 83.6 fL Normal 82.6-102.9 [facility] Comment on above: Performed By: #### C P, HCG, CBC #### [address] [place] [phone] Underwriting Internship: Luis A Peng MD #### HIVCMB, PHEP #### [address] [phone] Underwriting Internship: Alvino Davila MD NRBC Automated 0.0 per 100 WBC Normal 0.0 [facility] Comment on above: Performed By: #### C P, HCG, CBC #### [address] [place] [phone] Underwriting Internship: Luis A Peng MD #### HIVCMB, PHEP #### [address] [phone] Underwriting Internship: Alvino Davila MD Platelet mean volume (Bld) [Entitic vol] 10.9 fL Normal 8.1-13.5 [facility] Comment on above: Performed By: #### C P, HCG, CBC #### [address] [place] [phone] Underwriting Internship: Luis A Peng MD #### HIVCMB, PHEP #### [address] [phone] Underwriting Internship: Alvino Davila MD Platelets (Bld) [#/Vol] 277 10*3/uL Normal 138-453 [facility] Comment on above: Performed By: #### C P, HCG, CBC #### [facility] [address] [place] [address] Underwriting Internship: Luis A Peng MD #### HIVCMB, PHEP #### [address] [place], [place] [phone] Underwriting Internship: Alvino Davila MD RBC (Bld) [#/Vol] 4.69 10*6/uL Normal 3.95-5.11 [facility] Comment on above: Performed By: #### C P, HCG, CBC #### [facility] [address] [place] [address] Underwriting Internship: Luis A Peng MD #### HIVCMB, PHEP #### [address] [phone] Underwriting Internship: Alvino Davila MD WBC (Bld) [#/Vol] 5.5 10*3/uL Normal 3.5-11.3 [facility] Comment on above: Performed By: #### C P, HCG, CBC #### [address] [place] [address] Underwriting Internship: Luis A Peng MD #### HIVCMB, PHEP #### [address] [phone] Underwriting Internship: Alvino Davila MD Erythrocyte distribution width (RBC) [Ratio] 12.7 % 11.8 - 14.4 % [place], [place] Hematocrit (Bld) [Volume fraction] 39.2 % 36.3 - 47.1 % [place] Hemoglobin (Bld) [Mass/Vol] 12.3 g/dL 11.9 - 15.1 g/dL [place] MCH (RBC) [Entitic mass] 26.2 pg 25.2 - 33.5 pg [place] MCHC (RBC) [Mass/Vol] 31.4 g/dL 28.4 - 34.8 g/dL [place] MCV (RBC) [Entitic vol] 83.6 fL 82.6 - 102.9 fL [place] Platelet mean volume (Bld) [Entitic vol] 10.9 fL 8.1 - 13.5 fL [place] Platelets (Bld) [#/Vol] 277 10*3/uL [place] RBC (Bld) [#/Vol] 4.69 10*6/uL 3.95 - 5.1 1 m/uL [place] WBC (Bld) [#/Vol] 5.5 10*3/uL [place] WBC (Bld) [#/Vol] 0.0 10*3/uL 0.0 per 100 WBC M [place], [place] Comp Metabolic Profon 2019 (cont.) Normal [facility] Comment on above: Result Comment: Aver age GFR for 20-29 years old: 116 mL/min/1.73sq m Chronic Kidney Disease: <60 mL/min/1.73sq m Kidney failure: <15 mL/min/1.73sq m eGFR calculated using average adult body mass. Additional eGFR calculator available at: http://www.uSamp/multiple_crcl_2012.htm Performed By: #### C P, HCG, CBC #### [facility] [address] [place] [address] Underwriting Internship: Luis A Pegn MD #### HIVCMB, PHEP #### [address] [address] Underwriting Internship: Alvino Davila MD Albumin [Mass/Vol] 3.4 g/dL Low 3.5-5.2 [facility] Comment on above: Performed By: #### C P, HCG, CBC #### [facility] [address] [place] [address] Underwriting Internship: Luis A Peng MD #### HIVCMB, PHEP #### [address] [place], [place] [phone] Underwriting Internship: Alvino Davila MD Albumin/Globulin [Mass ratio] 1.1 {ratio} Normal 1.0-2.5 [facility] Comment on above: Performed By: #### C P, HCG, CBC #### [facility] [address] [place] [phone] Underwriting Internship: Luis A Peng MD #### HIVCMB, PHEP #### [address] [phone] Underwriting Internship: Alvino Davila MD Alkaline Phos 130 U/L High 35-104 [facility] Comment on above: Performed By: #### C P, HCG, CBC #### [facility] [address] [place] [phone] Underwriting Internship: Luis A Peng MD #### HIVCMB, PHEP #### [address] [phone] Underwriting Internship: Alvino Davila MD ALT [Catalytic activity/Vol] 33 U/L Normal 5-33 [facility] Comment on above: Performed By: #### C P, HCG, CBC #### [address] [place] [phone] Underwriting Internship: Luis A Peng MD #### HIVCMB, PHEP #### [address] [address] Underwriting Internship: Alvino Davila MD Anion gap [Moles/Vol] 7 mmol/L Low 9-17 [facility] Comment on above: Performed By: #### C P, HCG, CBC #### [facility] [address] [place], [place] [phone] Underwriting Internship: Luis A Peng MD #### HIVCMB, PHEP #### [address] [place] [address] Underwriting Internship: Alvino Davila MD AST [Catalytic activity/Vol] 35 U/L High <32 [facility] Comment on above: Performed By: #### C P, HCG, CBC #### [facility] [address] [place], [place] [phone] Underwriting Internship: Luis A Peng MD #### HIVCMB, PHEP #### [address] [address] Underwriting Internship: Alvino Davila MD Bilirubin Ql (U) 0.16 mg/dL Low 0.3-1.2 [facility] Comment on above: Performed By: #### C P, HCG, CBC #### [facility] [address] [place] [address] [place]. [place], [place] [phone] Underwriting Internship: Luis A Peng MD #### HIVCMB, PHEP #### [address] [address] Underwriting Internship: Alvino Davila MD BUN/CRE Ratio 14 Normal 9-20 [facility] Comment on above: Performed By: #### C P, HCG, CBC #### [facility] [address] [place] [address] [place], [place] [phone] Underwriting Internship: Luis A Peng MD #### HIVCMB, PHEP #### [address] [address] Underwriting Internship: Alvino Davila MD Calcium [Mass/Vol] 9.2 mg/dL Normal 8.6-10.4 [facility] Comment on above: Performed By: #### C P, HCG, CBC #### [facility] [address] [place] [address] [place]. [place], [place] [phone] Underwriting Internship: Luis A Peng MD #### HIVCMB, PHEP #### [address] [address] Underwriting Internship: Alvino Davila MD Chloride [Moles/Vol] 99 mmol/L Normal 98-107 [facility] Comment on above: Performed By: #### C P, HCG, CBC #### [facility] [address] [place], [place] [phone] Underwriting Internship: Luis A Peng MD #### HIVCMB, PHEP #### [address] [address] Underwriting Internship: Alvino Davila MD CO2 [Moles/Vol] 29 mmol/L Normal 20-31 [facility] Comment on above: Performed By: #### C P, HCG, CBC #### [address] [place], [place] [phone] Underwriting Internship: Luis A Peng MD #### HIVCMB, PHEP #### [address] [address] Underwriting Internship: Alvino Davila MD Creatinine [Mass/Vol] 0.63 mg/dL Normal 0.50-0.90 [facility] Comment on above: Performed By: #### C P, HCG, CBC #### [address] [place], [place] [phone] Underwriting Internship: Luis A Peng MD #### HIVCMB, PHEP #### [address] [address] Underwriting Internship: Alvino Davila MD GFR, Amer >60 Normal >60 [facility] Comment on above: Performed By: #### C P, HCG, CBC #### [facility] [address] [place], [place] [phone] Underwriting Internship: Luis A Peng MD #### HIVCMB, PHEP #### [address] [address] Underwriting Internship: Alvino Davila MD GFR,non Amer >60 Normal >60 [facility] Comment on above: Performed By: #### C P, HCG, CBC #### [facility] [address] [place] [address] Underwriting Internship: Luis A Peng MD #### HIVCMB, PHEP #### [address] [phone] Underwriting Internship: Alvino Davila MD Glucose [Mass/Vol] 95 mg/dL Normal 70-99 [facility] Comment on above: Performed By: #### C P, HCG, CBC #### [address] [place] [phone] Underwriting Internship: Luis A Peng MD #### HIVCMB, PHEP #### [address] [phone] Underwriting Internship: Alvino Davila MD Potassium [Moles/Vol] 4.3 mmol/L Normal 3.7-5.3 [facility] Comment on above: Performed By: #### C P, HCG, CBC #### [address] [place] [phone] Underwriting Internship: Luis A Peng MD #### HIVCMB, PHEP #### [address] [address] Underwriting Internship: Alvino Davila MD Protein [Mass/Vol] 6.5 g/dL Normal 6.4-8.3 [facility] Comment on above: Performed By: #### C P, HCG, CBC #### [address] [place] [address] Underwriting Internship: Luis A Peng MD #### HIVCMB, PHEP #### [address] [phone] Underwriting Internship: Alvino Davila MD Sodium [Moles/Vol] 135 mmol/L Normal 135-144 [facility] Comment on above: Performed By: #### C P, HCG, CBC #### [facility] [address] [place] [address] Underwriting Internship: Luis A Peng MD #### HIVCMB, PHEP #### [address] [phone] Underwriting Internship: Alvino Davila MD Staging: Normal [facility] Comment on above: Result Comment: Stag e 1: Some kidney damage normal GFR Stage 2: Mild kidney damage GFR 60-89 Stage 3: Moderate kidney damage GFR 30-59 Stage 4: Severe kidney damage GFR 15-29 Stage 5: Severe kidney damage GFR <15 ESRD - chronic treatment by dialysis or transplant Performed By: #### C P, HCG, CBC #### [facility] [address] [place] [address] Underwriting Internship: Luis A Peng MD #### HIVCMB, PHEP #### [address] [phone] Underwriting Internship: Alvino Davila MD Urea nitrogen [Mass/Vol] 9 mg/dL Normal 6-20 [facility] Comment on above: Performed By: #### C P, HCG, CBC #### [address] [place] [address] Underwriting Internship: Luis A Peng MD #### HIVCMB, PHEP #### [address] [phone] Underwriting Internship: Alvino Davila MD Comprehensive Metabolic Pane liu 05-30-2020 Albumin [Mass/Vol] 3.4 g/dL Low 3.5 - 5.2 g/dL [place], [place] Albumin/Globulin [Mass ratio] 1.1 {ratio} [place] ALP [Catalytic activity/Vol] 130 U/L High 35 - 104 U/L [place] ALT [Catalytic activity/Vol] 33 U/L 5 - 33 U/L [place] Anion gap [Moles/Vol] 7 mmol/L Low 9 - 17 mmol/L [place] AST [Catalytic activity/Vol] 35 U/L High <32 [place] Bilirubin Ql (U) 0.16 mg/dL Low 0.3 - 1.2 mg/dL [place] Bun/Cre Ratio 14 [place], [place] Calcium [Mass/Vol] 9.2 mg/dL 8.6 - 10. 4 mg/dL [place] Chloride [Moles/Vol] 99 mmol/L 98 - 107 mmol/L [place] CO2 [Moles/Vol] 29 mmol/L 20 - 31 mmol/L [place] Creatinine [Mass/Vol] 0.63 mg/dL 0.5 - 0.9 mg/d L [place] GFR >60 >60 mL/min [place], [place] GFR Non- >60 >60 mL/min [place] Glucose [Mass/Vol] 95 mg/dL 70 - 99 mg/dL [place] Interpretation and review of laboratory results Abnormal [place] Potassium [Moles/Vol] 4.3 mmol/L 3.7 - 5.3 mmol/L [place] Protein [Mass/Vol] 6.5 g/dL 6.4 - 8.3 g/dL [place], [place] Sodium [Moles/Vol] 135 mmol/L 135 - 144 mmol/L [place] Urea nitrogen [Mass/Vol] 9 mg/dL 6 - 20 mg/dL [place] HCG Qualitative, Serumon hCG Qual Negative NEGATIVE [place] Comment on above: Specimens with hCG l evels near the threshold of the test (25 mIU/mL) may give a negative or indeterminate result. In such cases, another test should be performed with a new specimen in 48-72 hours. If early is suspected clinically in this setting, correlation with quantitative serum b-hCG level is suggested. [facility] has confirmed the use of plasma for this test. This has not been cleared or approved by the U.S. Food and Drug Administration. The FDA has determined that such clearance is not necessary. HCG Screen, Bloodon 05-30-20 20 HCG Qn Negative Normal NEG [facility] Comment on above: Result Comment: Spec imens with hCG levels near the threshold of the test (25 mIU/mL) may give a negative or indeterminate result. In such cases, another test should be performed with a new specimen in 48-72 hours. If early is suspected clinically in this setting, correlation with quantitative serum b-hCG level is suggested. [facility] has confirmed the use of plasma for this test. This has not been cleared or approved by the U.S. Food and Drug Administration. The FDA has determined that such clearance is not necessary. Performed By: #### C P, HCG, CBC #### [address] [place] [address] Underwriting Internship: Luis A Peng MD #### HIVCMB, PHEP #### [address] [phone] Underwriting Internship: Alvino Davila MD HIV Ag/Abon 05-30-2020 HIV Ag/Ab NONREACTIVE Normal NR [facility] Comment on above: Result Comment: No l aboratory evidence of HIV infection. If acute HIV infection is suspected, consider testing for HIV-1 RNA. Performed By: #### C P, HCG, CBC #### [address] [place] [address] Underwriting Internship: Luis A Peng MD #### HIVCMB, PHEP #### [address] [place], [place] [phone] Underwriting Internship: Alvino Davila MD HIV Screenon 05-30-2020 HIV Ag/Ab NONREACTIVE NONREACTIVE [place] Comment on above: No laboratory eviden ce of HIV infection. If acute HIV infection is suspected, consider testing for HIV-1 RNA. Hepatitis Acute [facility] 05-30 Hep A Ab,IgM NONREACTIVE Normal NR [facility] Comment on above: Performed By: #### C P, HCG, CBC #### [address] [place] [address] Underwriting Internship: Luis A Peng MD #### HIVCMB, PHEP #### [address] [phone] Underwriting Internship: Alvino Davila MD Hep B Core Ab,IgM NONREACTIVE Normal NR [facility] Comment on above: Performed By: #### C P, HCG, CBC #### [address] [place] [address] Underwriting Internship: Luis A Peng MD #### HIVCMB, PHEP #### [address] [address] Underwriting Internship: Alvino Davila MD Hep B Surf Ag NONREACTIVE Normal NR [facility] Comment on above: Performed By: #### C P, HCG, CBC #### [address] [place] [address] Underwriting Internship: Luis A Peng MD #### HIVCMB, PHEP #### [address] [address] Underwriting Internship: Alvino Davila MD Hep C Ab NONREACTIVE Normal [facility] Comment on above: Result Comment: [...] By: #### C P, HCG, CBC #### [address] [place], [place] [phone] Underwriting Internship: Luis A Peng MD #### HIVCMB, PHEP #### [address] [address] Underwriting Internship: Alvino Davila MD Hepatitis Panel, Acuteon HAV IgM IA Qn (S) NONREACTIVE NONREACTIVE [place] Hep B Core Ab, IgM NONREACTIVE NONREACTIVE [place] Hepatitis B Surface Ag NONREACTIVE NONREACTIVE [place] Hepatitis C Ab NONREACTIVE NONREACTIVE [place], [place] Comment on above: The hepatitis C [...] predicted among non-blacks MDRD (S/P/Bld) [Vol rate/Area] [place] Comment on above: Stage 1: Some [...] body mass. Additional eGFR calculator available at: http://www.RentMineOnline.ULURU/multiple_crcl_2012.htm CBCon 01-01-2020 Erythrocyte distribution width (RBC) [Ratio] 12.5 % Normal 11.8-14.4 [facility] Comment on above: Performed By: #### P HEP, HIVCMB #### [facility] [address] [place] [address] Underwriting Internship: Alvino Davila MD #### CP, CBC, HCG #### [facility] [address] [place] [address] Underwriting Internship: Luis A Peng MD Hematocrit (Bld) [Volume fraction] 40.2 % Normal 36.3-47.1 [facility] Comment on above: Performed By: #### P HEP, HIVCMB #### [address] [address] Underwriting Internship: Alvino Davila MD #### CP, CBC, HCG #### [facility] [address] [place] [address] [place] [address] Underwriting Internship: Luis A Peng MD Hemoglobin (Bld) [Mass/Vol] 13.1 g/dL Normal 11.9-15.1 [facility] Comment on above: Performed By: #### P HEP, HIVCMB #### [address] [phone] Underwriting Internship: Alvino Davila MD #### CP, CBC, HCG #### [address] [place] [phone] Underwriting Internship: Luis A Peng MD MCH (RBC) [Entitic mass] 28.4 pg Normal 25.2-33.5 [facility] Comment on above: Performed By: #### P HEP, HIVCMB #### [address] [phone] Underwriting Internship: Alvino Davila MD #### CP, CBC, HCG #### [address] [place] [phone] Underwriting Internship: Luis A Peng MD MCHC (RBC) [Mass/Vol] 32.6 g/dL Normal 28.4-34.8 [facility] Comment on above: Performed By: #### P HEP, HIVCMB #### [address] [phone] Underwriting Internship: Alvino Davila MD #### CP, CBC, HCG #### [address] [place] [address] Underwriting Internship: Luis A Peng MD MCV (RBC) [Entitic vol] 87.2 fL Normal 82.6-102.9 [facility] Comment on above: Performed By: #### P HEP, HIVCMB #### [address] [address] Underwriting Internship: Alvino Davila MD #### CP, CBC, HCG #### [facility] [address] [place] [address] Underwriting Internship: Luis A Peng MD NRBC Automated 0.0 per 100 WBC Normal 0.0 [facility] Comment on above: Performed By: #### P HEP, HIVCMB #### [address] [address] Underwriting Internship: Alvino Davila MD #### CP, CBC, HCG #### [address] [place] [phone] Underwriting Internship: Luis A Peng MD Platelet mean volume (Bld) [Entitic vol] 11.2 fL Normal 8.1-13.5 [facility] Comment on above: Performed By: #### P HEP, HIVCMB #### [address] [address] Underwriting Internship: Alvino Davila MD #### CP, CBC, HCG #### [address] [place] [phone] Underwriting Internship: Luis A Peng MD Platelets (Bld) [#/Vol] 241 10*3/uL Normal 138-453 [facility] Comment on above: Performed By: #### P HEP, HIVCMB #### [address] [address] Underwriting Internship: Alvino Davila MD #### CP, CBC, HCG #### [facility] [address] [place] [phone] Underwriting Internship: Luis A Peng MD RBC (Bld) [#/Vol] 4.61 10*6/uL Normal 3.95-5.11 [facility] Comment on above: Performed By: #### P HEP, HIVCMB #### [facility] [address] [place], [place] [phone] Underwriting Internship: Alvino Davila MD #### CP, CBC, HCG #### [facility] [address] [place] [address] [place] [address] Underwriting Internship: Luis A Peng MD WBC (Bld) [#/Vol] 9.0 10*3/uL Normal 3.5-11.3 [facility] Comment on above: Performed By: #### P HEP, HIVCMB #### [facility] [address] [place], [place] [phone] Underwriting Internship: Alvino Davila MD #### CP, CBC, HCG #### [address] [place] [address] Underwriting Internship: Luis A Peng MD Erythrocyte distribution width (RBC) [Ratio] 12.5 % 11.8 - 14.4 % [place] Hematocrit (Bld) [Volume fraction] 40.2 % 36.3 - 47.1 % [place] Hemoglobin (Bld) [Mass/Vol] 13.1 g/dL 11.9 - 15.1 g/dL [place] MCH (RBC) [Entitic mass] 28.4 pg 25.2 - 33.5 pg [place] MCHC (RBC) [Mass/Vol] 32.6 g/dL 28.4 - 34.8 g/dL [place] MCV (RBC) [Entitic vol] 87.2 fL 82.6 - 102.9 fL [place] Platelet mean volume (Bld) [Entitic vol] 11.2 fL 8.1 - 13.5 fL [place] Platelets (Bld) [#/Vol] 241 10*3/uL [place] RBC (Bld) [#/Vol] 4.61 10*6/uL 3.95 - 5.1 1 m/uL [place] WBC (Bld) [#/Vol] 0.0 10*3/uL 0.0 per 100 WBC M [place] WBC (Bld) [#/Vol] 9.0 10*3/uL [place] Comp Metabolic Profon 2019 (cont.) Normal [facility] Comment on above: Result Comment: Aver age GFR for 20-29 years old: 116 mL/min/1.73sq m Chronic Kidney Disease: <60 mL/min/1.73sq m Kidney failure: <15 mL/min/1.73sq m eGFR calculated using average adult body mass. Additional eGFR calculator available at: http://www.uSamp/multiple_crcl_2011.htm Performed By: #### P HEP, HIVCMB #### [facility] [address] [place] [address] [phone] Underwriting Internship: Alvino Davila MD #### CP, CBC, HCG #### [facility] [address] [place] [address] [place] [address] Underwriting Internship: Luis A Peng MD Albumin [Mass/Vol] 4.2 g/dL Normal 3.5-5.2 [facility] Comment on above: Performed By: #### P HEP, HIVCMB #### [facility] [address] [place] [address] [phone] Underwriting Internship: Alvino Davila MD #### CP, CBC, HCG #### [facility] [address] [place] [address] [place] [address] Underwriting Internship: Luis A Peng MD Albumin/Globulin [Mass ratio] 1.7 {ratio} Normal 1.0-2.5 [facility] Comment on above: Performed By: #### P HEP, HIVCMB #### [facility] [address] [place] [address] [phone] Underwriting Internship: Alvino Davila MD #### CP, CBC, HCG #### [address] [place], [place] [phone] Underwriting Internship: Luis A Peng MD Alkaline Phos 69 U/L Normal 35-104 [facility] Comment on above: Performed By: #### P HEP, HIVCMB #### [address] [address] Underwriting Internship: Alvino Davila MD #### CP, CBC, HCG #### [address] [place], [place] [phone] Underwriting Internship: Luis A Peng MD ALT [Catalytic activity/Vol] 78 U/L High 5-33 [facility] Comment on above: Performed By: #### P HEP, HIVCMB #### [address] [address] Underwriting Internship: Alvino Davila MD #### CP, CBC, HCG #### [address] [place], [place] [phone] Underwriting Internship: Luis A Peng MD Anion gap [Moles/Vol] 9 mmol/L Normal 9-17 [facility] Comment on above: Performed By: #### P HEP, HIVCMB #### [address] [address] Underwriting Internship: Alvino Davila MD #### CP, CBC, HCG #### [address] [place], [place] [phone] Underwriting Internship: Luis A Peng MD AST [Catalytic activity/Vol] 44 U/L High <32 [facility] Comment on above: Performed By: #### P HEP, HIVCMB #### [address] [address] Underwriting Internship: Alvino Davila MD #### CP, CBC, HCG #### [address] [place], [place] [phone] Underwriting Internship: Luis A Peng MD Bilirubin Ql (U) 0.15 mg/dL Low 0.3-1.2 [facility] Comment on above: Performed By: #### P HEP, HIVCMB #### [address] [phone] Underwriting Internship: Alvino Davila MD #### CP, CBC, HCG #### [address] [place], [place] [phone] Underwriting Internship: Luis A Peng MD BUN/CRE Ratio 20 Normal 9-20 [facility] Comment on above: Performed By: #### P HEP, HIVCMB #### [address] [address] Underwriting Internship: Alvino Davila MD #### CP, CBC, HCG #### [address] [place] [phone] Underwriting Internship: Luis A Peng MD Calcium [Mass/Vol] 9.4 mg/dL Normal 8.6-10.4 [facility] Comment on above: Performed By: #### P HEP, HIVCMB #### [address] [address] Underwriting Internship: Alvino Davila MD #### CP, CBC, HCG #### [address] [place] [phone] Underwriting Internship: Luis A Peng MD Chloride [Moles/Vol] 97 mmol/L Low 98-107 [facility] Comment on above: Performed By: #### P HEP, HIVCMB #### [address] [address] Underwriting Internship: Alvino Davila MD #### CP, CBC, HCG #### [address] [place] [address] Underwriting Internship: Luis A Peng MD CO2 [Moles/Vol] 28 mmol/L Normal 20-31 [facility] Comment on above: Performed By: #### P HEP, HIVCMB #### [address] [address] Underwriting Internship: Alvino Davila MD #### CP, CBC, HCG #### [facility] [address] [place], [place] [phone] Underwriting Internship: Luis A Peng MD Creatinine [Mass/Vol] 0.55 mg/dL Normal 0.50-0.90 [facility] Comment on above: Performed By: #### P HEP, HIVCMB #### [address] [address] Underwriting Internship: Alvino Davila MD #### CP, CBC, HCG #### [facility] [address] [place] [address] Underwriting Internship: Luis A Peng MD GFR, Amer >60 Normal >60 [facility] Comment on above: Performed By: #### P HEP, HIVCMB #### [address] [address] Underwriting Internship: Alvino Davila MD #### CP, CBC, HCG #### [facility] [address] [place], [place] [phone] Underwriting Internship: Luis A Peng MD GFR,non Amer >60 Normal >60 [facility] Comment on above: Performed By: #### P HEP, HIVCMB #### [address] [address] Underwriting Internship: Alvino Davila MD #### CP, CBC, HCG #### [facility] [address] [place], [place] [phone] Underwriting Internship: Luis A Peng MD Glucose [Mass/Vol] 85 mg/dL Normal 70-99 [facility] Comment on above: Performed By: #### P HEP, HIVCMB #### [address] [address] Underwriting Internship: Alvino Davila MD #### CP, CBC, HCG #### [facility] [address] [place] [address] [place] [place], [place] [phone] Underwriting Internship: Luis A Peng MD Potassium [Moles/Vol] 4.3 mmol/L Normal 3.7-5.3 [facility] Comment on above: Performed By: #### P HEP, HIVCMB #### [address] [address] Underwriting Internship: Alvino Davila MD #### CP, CBC, HCG #### [address] [place], [place] [phone] Underwriting Internship: Luis A Peng MD Protein [Mass/Vol] 6.7 g/dL Normal 6.4-8.3 [facility] Comment on above: Performed By: #### P HEP, HIVCMB #### [address] [address] Underwriting Internship: Alvino Davila MD #### CP, CBC, HCG #### [facility] [address] [place] [address] [place]. [place], [place] [id number] Underwriting Internship: Luis A Peng MD Sodium [Moles/Vol] 134 mmol/L Low 135-144 [facility] Comment on above: Performed By: #### P HEP, HIVCMB #### [address] [address] Underwriting Internship: Alvino Davila MD #### CP, CBC, HCG #### [address] [place], [place] [id number] Underwriting Internship: Luis A Peng MD Staging: Normal [facility] Comment on above: Result Comment: Stag e 1: Some kidney damage normal GFR Stage 2: Mild kidney damage GFR 60-89 Stage 3: Moderate kidney damage GFR 30-59 Stage 4: Severe kidney damage GFR 15-29 Stage 5: Severe kidney damage GFR <15 ESRD - chronic treatment by dialysis or transplant Performed By: #### P HEP, HIVCMB #### [facility] [address] [place], [place] [id number] Underwriting Internship: Alvino Davila MD #### CP, CBC, HCG #### [facility] [address] [place] [address] Underwriting Internship: Luis A Peng MD Urea nitrogen [Mass/Vol] 11 mg/dL Normal 6-20 [facility] Comment on above: Performed By: #### P HEP, HIVCMB #### [facility] [address] [place], [place] [id number] Underwriting Internship: Alvino Davila MD #### CP, CBC, HCG #### [facility] [address] [place] [address] Underwriting Internship: Luis A Peng MD Comprehensive Metabolic Pane [facility] 01-01-2020 Albumin [Mass/Vol] 4.2 g/dL 3.5 - 5.2 g/dL [place], [place] Albumin/Globulin [Mass ratio] 1.7 {ratio} [place], [place] ALP [Catalytic activity/Vol] 69 U/L 35 - 104 U/L [place] ALT [Catalytic activity/Vol] 78 U/L High 5 - 33 U/L [place] Anion gap [Moles/Vol] 9 mmol/L 9 - 17 mmol/L [place] AST [Catalytic activity/Vol] 44 U/L High <32 [place] Bilirubin Ql (U) 0.15 mg/dL Low 0.3 - 1.2 mg/dL [place], [place] Bun/Cre Ratio 20 [place], [place] Calcium [Mass/Vol] 9.4 mg/dL 8.6 - 10. 4 mg/dL [place] Chloride [Moles/Vol] 97 mmol/L Low 98 - 107 mmol/L [place] CO2 [Moles/Vol] 28 mmol/L 20 - 31 mmol/L [place] Creatinine [Mass/Vol] 0.55 mg/dL 0.5 - 0.9 mg/d L [place] GFR >60 >60 mL/min [place], [place] GFR Non- >60 >60 mL/min [place] Glucose [Mass/Vol] 85 mg/dL 70 - 99 mg/dL [place] Interpretation and review of laboratory results Abnormal [place] Potassium [Moles/Vol] 4.3 mmol/L 3.7 - 5.3 mmol/L [place] Protein [Mass/Vol] 6.7 g/dL 6.4 - 8.3 g/dL [place], [place] Sodium [Moles/Vol] 134 mmol/L Low 135 - 144 mmol/L [place] Urea nitrogen [Mass/Vol] 11 mg/dL 6 - 20 mg/dL [place] HCG Qualitative, Serumon hCG Qual Negative NEGATIVE [place] Comment on above: Specimens with hCG l evels near the threshold of the test (25 mIU/mL) may give a negative or indeterminate result. In such cases, another test should be performed with a new specimen in 48-72 hours. If early is suspected clinically in this setting, correlation with quantitative serum b-hCG level is suggested. [employer] has confirmed the use of plasma for this test. This has not been cleared or approved by the U.S. Food and Drug Administration. The FDA has determined that such clearance is not necessary. HCG Screen, Bloodon 01-01-20 20 HCG Qn Negative Normal NEG [facility] Comment on above: Result Comment: Spec imens with hCG levels near the threshold of the test (25 mIU/mL) may give a negative or indeterminate result. In such cases, another test should be performed with a new specimen in 48-72 hours. If early is suspected clinically in this setting, correlation with quantitative serum b-hCG level is suggested. [employer] has confirmed the use of plasma for this test. This has not been cleared or approved by the U.S. Food and Drug Administration. The FDA has determined that such clearance is not necessary. Performed By: #### P HEP, HIVCMB #### [address] [address] Underwriting Internship: Alvino Davila MD #### CP, CBC, HCG #### [address] [place] [address] Underwriting Internship: Luis A Peng MD HIV Ag/Abon 01-01-2020 HIV Ag/Ab NONREACTIVE Normal [facility] Comment on above: Result Comment: No l aboratory evidence of HIV infection. If acute HIV infection is suspected, consider testing for HIV-1 RNA. Performed By: #### P HEP, HIVCMB #### [address] [address] Underwriting Internship: Alvino Davila MD #### CP, CBC, HCG #### [address] [place] [address] Underwriting Internship: Luis A Peng MD HIV Screenon 01-01-2020 HIV Ag/Ab NONREACTIVE NONREACTIVE [place] Comment on above: No laboratory eviden ce of HIV infection. If acute HIV infection is suspected, consider testing for HIV-1 RNA. Hepatitis Acute [facility] 12-31 Hep A Ab,IgM NONREACTIVE Normal [facility] Comment on above: Performed By: #### P HEP, HIVCMB #### [address] [address] Underwriting Internship: Alvino Davila MD #### CP, CBC, HCG #### [address] [place] [address] Underwriting Internship: Luis A Peng MD Hep B Core Ab,IgM NONREACTIVE Normal [facility] Comment on above: Performed By: #### P HEP, HIVCMB #### [address] [address] Underwriting Internship: Alvino Davila MD #### CP, CBC, HCG #### [facility] [address] [place] [address] [place]. [place], [place] [id number] Underwriting Internship: Luis A Peng MD Hep B Surf Ag NONREACTIVE Normal [facility] Comment on above: Performed By: #### P HEP, HIVCMB #### [place] [place] [place], [place] [id number] Underwriting Internship: Alvino Davila MD #### CP, CBC, HCG #### [facility] [address] [place] [address] [place] [address] Underwriting Internship: Luis A Peng MD Hep C Ab NONREACTIVE Normal [facility] Comment on above: Result Comment: [...] Performed By: #### P HEP, HIVCMB #### [address] [address] Underwriting Internship: Alvino Davila MD #### CP, CBC, HCG #### [address] [place], [place] [id number] Underwriting Internship: Luis A Peng MD Hepatitis Panel, [facility] HAV IgM IA Qn (S) NONREACTIVE NONREACTIVE [place] Hep B Core Ab, IgM NONREACTIVE NONREACTIVE [place] Hepatitis B Surface Ag NONREACTIVE NONREACTIVE [place] Hepatitis C Ab NONREACTIVE NONREACTIVE [place], [place] Comment on above: The hepatitis C [...] predicted among non-blacks MDRD (S/P/Bld) [Vol rate/Area] [place], [place] Comment on above: Stage 1: Some [...] body mass. Additional eGFR calculator available at: http://www.uSamp/multiple_crcl_2012.htm Vital Signs Date Time Vital Sign Value Performing Clinician Ld razoy 06-07-2025 10:17-0400 Body mass index (BMI) [Ratio] 27.46 kg/m2 [employer] ([employer]) Work Phone: [facility] 06-07-2025 10:17-0400 Body weight 74.84 kg [employer] Work Phone: [facility] 06-07-2025 10:17-0400 Diastolic blood pressure 74 mm[Hg] Mee Yary [employer] Work Phone: [facility] 06-07-2025 10:17-0400 Systolic blood pressure 118 mm[Hg] [facility] [employer] Work Phone: [facility] 05-30-2025 09:30-0400 Body height 165.1 cm Nohemy Hernandez MD Work Phone: [facility] 05-30-2025 09:30-0400 Body mass index (BMI) [Ratio] 27.09 kg/m2 Noheym Hernandez MD Work Phone: [facility] 05-30-2025 09:30-0400 Body weight 73.85 kg Nohemy Hernandez MD Work Phone: [facility] 05-30-2025 09:30-0400 Diastolic blood pressure 73 mm[Hg] Nohemy Hernandez MD Work Phone: [facility] 05-30-2025 09:30-0400 Heart rate 83 /min Nohemy Hernandez MD Work Phone: [facility] 05-30-2025 09:30-0400 Systolic blood pressure 110 mm[Hg] Nohemy Hernandez MD Work Phone: [facility] 05-30-2025 08:57-0400 Body height 165.1 cm Nohemy Hernadnez MD Work Phone: [facility] 05-16-2025 10:59-0400 Body mass index (BMI) [Ratio] 26.46 kg/m2 Mee Yary DO Work Phone: [facility] 05-16-2025 10:59-0400 Body weight 72.12 kg Mee Yary DO Work Phone: [facility] 05-16-2025 10:59-0400 Diastolic blood pressure 70 mm[Hg] Mee Yary DO Work Phone: [facility] 05-16-2025 10:59-0400 Systolic blood pressure 110 mm[Hg] Mee Yary DO Work Phone: [facility] 05-02-2025 15:42-0400 Body mass index (BMI) [Ratio] 26.26 kg/m2 Mee Yary DO Work Phone: [facility] 05-02-2025 15:42-0400 Body weight 71.58 kg Mee Yary DO Work Phone: [facility] 05-02-2025 15:42-0400 Diastolic blood pressure 70 mm[Hg] Mee Yary DO Work Phone: [facility] 05-02-2025 15:42-0400 Systolic blood pressure 104 mm[Hg] Mee Yary DO Work Phone: [facility] 04-18-2025 13:35-0400 Body mass index (BMI) [Ratio] 25.79 kg/m2 Mee Yary DO Work Phone: [facility] 04-18-2025 13:35-0400 Body weight 70.31 kg Mee Yary DO Work Phone: [facility] 04-18-2025 13:35-0400 Diastolic blood pressure 64 mm[Hg] Mee Yary DO Work Phone: [facility] 04-18-2025 13:35-0400 Systolic blood pressure 112 mm[Hg] Mee Yary DO Work Phone: [facility] 04-06-2025 11:47-0400 Body mass index (BMI) [Ratio] 25.76 kg/m2 Noms Nurse [facility] 04-06-2025 11:47-0400 Body weight 70.22 kg Noms Nurse [facility] Encounters Encounter Date Encounter Type Care Provider Facility Start: 06-20-2025 End: 06-20-2025 Bamboo flowsheet Mee Yary DO Work Phone: [facility] Start: 06-20-2025 End: 06-20-2025 Bamboo flowsheet Mee Yary DO Work Phone: [facility] Start: 06-14-2025 End: 06-14-2025 Clinisync Result Encounter Mee Yary DO Work Phone: [facility] Unsolicited Start: 06-14-2025 End: 06-14-2025 Clinisync Result Encounter Mee Yary DO Work [...] Bamboo flowsheet Mee Yary DO Work Phone: [facility] Start: 06-07-2025 End: 06-07-2025 Bamboo flowsheet Mee Yary DO Work Phone: [facility] Start: 06-07-2025 End: 06-07-2025 ambulatory MEE YARY Not Available Start: 06-07-2025 End: 06-07-2025 Office outpatient visit 15 minutes Mee Yary DO Work Phone: [facility] Comment on above: Third trimester preg helder ([facility]); 32 weeks gestation of ([facility]); H/O opioid abuse [place] History of placental abruption; Diabetes mellitus screening Start: 06-05-2025 End: 06-05-2025 Clinisync Result Encounter Mee Yary DO Work Phone: [facility] Unsolicited Start: 06-05-2025 End: 06-05-2025 Clinisync Result Encounter Mee Yary DO Work Phone: [facility] Unsolicited Start: 05-30-2025 End: 05-30-2025 Chart abstracting Nohemy Hernandez MD Work Phone: [facility] Start: 05-30-2025 End: 05-30-2025 Office outpatient new 45 minutes Nohemy Hernandez MD Work Phone: [facility] Comment on above: History of placental abruption (Primary Dx); Hepatitis C virus infection without hepatic coma, unspecified chronicity Start: 05-30-2025 End: 05-30-2025 ambulatory MEE R YARY [facility] Start: 05-21-2025 End: 05-21-2025 Clinisync [...] on above: 29 weeks gestation o f ([facility]); Third trimester ([facility]); Request for sterilization; H/O opioid abuse ([facility]); History of placental abruption Start: 05-16-2025 End: 05-16-2025 ambulatory MEE YARY Not Available Start: 05-02-2025 End: 05-02-2025 ambulatory MEE YARY Not Available Start: 05-02-2025 End: 05-02-2025 Office outpatient visit 15 minutes Mee Yary DO Work Phone: [facility] Comment on above: Second trimester pre gnancy ([facility]); 27 weeks gestation of ([facility]); Request for sterilization; H/O opioid abuse ([facility]); History of placental abruption Start: 05-02-2025 End: 05-02-2025 Bamboo flowsheet Mee Yary DO Work Phone: [facility] Start: 05-02-2025 End: 05-02-2025 Bamboo flowsheet Mee Yary DO Work Phone: [facility] Start: 04-18-2025 End: 04-18-2025 Bamboo flowsheet Mee Ayry DO Work Phone: [facility] Start: 04-18-2025 End: 04-18-2025 Bamboo flowsheet Mee Yary DO Work Phone: [facility] Start: 04-18-2025 End: 04-18-2025 ambulatory MEE YARY Not Available Start: 04-18-2025 End: 04-18-2025 Office outpatient visit 15 minutes Mee Yary DO Work Phone: [facility] Comment on above: Second trimester pre gnancy ([facility]); 25 weeks gestation of ([facility]) Start: 04-09-2025 End: 04-09-2025 Clinisync Result Encounter [...] 03-27-2021 End: 03-28-2021 ambulatory Helder Monk MD Facility:[facility] Start: 12-06-2020 End: 12-07-2020 Patient encounter procedure [facility] Start: 12-06-2020 End: 12-06-2020 Subsequent hospital visit by physician [facility] Start: 11-11-2020 End: 11-12-2020 Patient encounter procedure [facility] Start: 05-30-2020 End: 05-31-2020 Patient encounter procedure [facility] Start: 05-30-2020 End: 05-30-2020 Subsequent hospital visit by physician [facility] Start: 01-01-2020 End: 01-02-2020 Patient encounter procedure [facility] Start: 01-01-2020 End: 01-01-2020 Subsequent hospital visit by physician [facility] Start: 09-20-2018 End: 09-21-2018 Patient encounter procedure [facility]daenadel[facility] Facility:[id number] Procedures Date Procedure Procedure Detail Performing Clinician Start: 06-14-2025 [facility] UA (CLEAN/CATCH) VINYL INSTALLER/MICRO IF IND. Mee Yary DO Work Phone: Start: 06-11-2025 US OB BPP W NON-STRESS Mee Yary DO Work Phone: Start: 06-08-2025 MLR HEMOGLOBIN A1C Core y Yary DO Work Phone: Start: 06-07-2025 Urnls dip stick/tabl et rgnt non-auto w/o micrscp Mee Yary DO Work Phone: Start: 06-05-2025 US OB BPP W NON-STRESS Mee Yary [...] Not In System Ref Prov Start: 05-21-2025 [facility] DRUG SCREEN RAPI D (URINE) Mee [...] Adult BMI Screening Adult BMI Screen ing [facility] Start: 05-30-2026 Tobacco Screening Tobacco Screening [facility] Start: 07-05-2025 End: 07-05-2025 Patient encounter procedure [facility] Start: 07-02-2025 Influenza vaccination [facility] Start: 06-20-2025 End: 06-20-2025 Patient encounter procedure [facility] Comment on above: Arrived Start: 05-30-2025 End: 05-30-2026 US MFM with or without consult US MFM with or without consult Imaging Routine History of placental abruption Hepatitis C virus infection without hepatic coma, unspecified chronicity Expected: 05/30/2025, Expires: 05/30/2026 [facility] Comment on above: Expected: 05/30/2025 , Expires: 05/30/2026 Start: 05-30-2025 End: 05-30-2025 Patient encounter procedure [facility] Start: 05-30-2025 End: 05-30-2025 Professional / ancillary services management 05/30/2025 10:30 AM EDT Ancillary Procedure [facility] [address] [place] [address] [facility] Start: 05-30-2025 Subsequent hospital visit by physician 05/30/2025 9:15 AM EDT Hospital Encounter [facility] [address] [place] [address] [facility] Start: 05-16-2025 End: 11-16-2025 US biophysical profile w non stress test US biophysical profile w non stress test Imaging Routine H/O opioid abuse [place] History of placental abruption Expected: 05/16/2025 (Approximate), Expires: 11/16/2025 [facility] Work Phone: Comment on above: Expected: 05/16/2025 (Approximate), Expires: 11/16/2025 Start: 05-16-2025 End: 05-16-2025 Patient encounter procedure [facility] Comment on above: Arrived Start: 05-02-2025 End: 05-02-2025 Patient encounter procedure 05/02/2025 3:20 PM EDT Routine [facility] [address] [address] Mee Pringle, DO [address] [place] [address] [facility] Start: 04-18-2025 End: 08-18-2025 US for US OB follow up transabdominal approach Imaging Routine Second trimester ([facility]) Expected: 04/18/2025, Expires: 08/18/2025 [facility] Work Phone: Comment on above: Expected: 04/18/2025 , Expires: 08/18/2025 Start: 04-18-2025 End: 04-18-2025 Patient encounter procedure 04/18/2025 1:30 PM EDT Routine [facility] [address] [place] [address] Mee Pringle, DO [address] [place], [place] [id number] [facility] Start: 04-06-2025 End: 04-06-2026 ABO/Rh ABO/Rh Lab Routine Missed menses , unspecified gestational age ([facility]) Expected: 04/06/2025 (Approximate), Expires: 04/06/[address] [facility] Comment on above: Expected: 04/06/2025 (Approximate), Expires: 04/06/2026 Start: 04-06-2025 End: 04-06-2026 Blood type and Indirect antibody screen panel - Blood Type and screen Lab Routine Missed menses , unspecified gestational age ([facility]) Expected: 04/06/2025 (Approximate), Expires: 04/06/[address] [facility] Work Phone: Comment on above: Expected: 04/06/2025 (Approximate), Expires: 04/06/2026 Start: 04-06-2025 End: 04-06-2026 CBC panel - Blood by Automated count CBC Lab Routine Diabetes mellitus screening Expected: 04/06/2025 (Approximate), Expires: 04/06/[address] [facility] Comment on above: Expected: 04/06/2025 (Approximate), Expires: 04/06/2026 Start: 04-06-2025 End: 04-06-2026 Drugs of abuse panel - Urine by Screen method Rapid drug screen, urine Lab Routine , unspecified gestational age ([facility]) Encounter for supervision of normal first in first trimester ([facility]) Expected: 04/06/2025 (Approximate), Expires: 04/06/[address] [facility] Comment on above: Expected: 04/06/2025 (Approximate), Expires: 04/06/2026 Start: 04-06-2025 End: 04-06-2026 Measurement of glucose 1 hour after glucose challenge for glucose tolerance test Glucose tolerance, 1 hour Lab Routine Diabetes mellitus screening Expected: 04/06/2025 (Approximate), Expires: 04/06/[address] [facility] Comment on above: Expected: 04/06/2025 (Approximate), Expires: 04/06/2026 Start: 04-06-2025 End: 07-07-2025 US for US OB 14+ weeks anatomy scan Imaging Routine Screening, , for anatomic survey ([facility]) Expected: 04/06/2025, Expires: 07/07/[address] [facility] Comment on above: Expected: 04/06/2025 , Expires: 07/07/2025 Start: 07-02-2024 COVID-19 Vaccine ( season) COVID-19 Vaccine ( season) [facility] Start: 07-02-2024 Influenza vaccination Influenza Vacc ine (#1) [facility] Start: 2022 Screening for malign ant neoplasm of cervix [facility] Start: 07-02-2020 Influenza vaccination Flu vaccine (# 1) [place], [place] Start: 2013 Screening for malign ant neoplasm of cervix Pap Smear [facility] Start: 2011 DTaP,Tdap and Td Vaccines (1 - Tdap) DTaP,Tdap and Td Vaccines (1 - Tdap) [facility] Start: 2010 Adult BMI Follow Up Plan Adult BMI Follow Up Plan [facility] Start: 2010 Adult BMI Screening Adult BMI Screen ing [facility] Start: 2004 Depression Screening Depression Scre ening [facility] Start: 2004 Tobacco Screening Tobacco Screening [facility] Start: 2003 DTaP,Tdap and Td Vaccines (6 - Tdap) DTaP,Tdap and Td Vaccines (6 - Tdap) [facility] End: 05-30-2026 Anti cariolipin AB IgG IgA IgM Anti cariolipin AB IgG IgA IgM Lab Routine History of placental abruption 1 Occurrences starting 05/30/2025 until 05/30/2026 [facility] Comment on above: 1 Occurrences starti ng 05/30/2025 until 05/30/2026 End: 05-30-2026 aPTT in Blood by Coagulation assay APTT Lab Routine History of placental abruption Hepatitis C virus infection without hepatic coma, unspecified chronicity 1 Occurrences starting 05/30/2025 until 05/30/2026 [facility] Comment on above: 1 Occurrences starti ng 05/30/2025 until 05/30/2026 Bacteria identified in Urine by Culture Urine culture Microbiology Routine Missed menses Ordered: 04/06/[address] [facility] Comment on above: Ordered: 04/06/2025 End: 05-30-2026 Beta-2 glycoprotein antibodies Beta-2 glycoprotein antibodies Lab Routine History of placental abruption 1 Occurrences starting 05/30/2025 until 05/30/2026 [facility]: 1 Occurrences starti ng 05/30/2025 until 05/30/2026 CBC W Auto Different ial panel - Blood CBC and differential Lab Routine Missed menses , unspecified gestational age ([facility]) Ordered: 04/06/2025 [facility] [employer] Comment on above: Ordered: 04/06/2025 End: 05-30-2026 Comprehensive metabolic 2000 panel - Serum or Plasma Comprehensive metabolic panel Lab Routine History of placental abruption Hepatitis C virus infection without hepatic coma, unspecified chronicity 1 Occurrences starting 05/30/2025 until 05/30/2026 [employer] Work Phone: Comment on above: 1 Occurrences starti ng 05/30/2025 until 05/30/2026 End: 05-30-2026 DRVVT DRVVT Lab Routine History of placental abruption 1 Occurrences starting 05/30/2025 until 05/30/2026 [facility] Comment on above: 1 Occurrences starti ng 05/30/2025 until 05/30/2026 Hemoglobin A1c/Hemoglobin.total in Blood Hemoglobin A1c Lab Routine Missed menses , unspecified gestational age ([facility]) Ordered: 04/06/2025 [facility] [employer] Comment on above: Ordered: 04/06/2025 Hemoglobin A1c/Hemoglobin.total in Blood Hemoglobin A1c Lab Routine Diabetes mellitus screening Ordered: 06/07/2025 [employer] Work Phone: Comment on above: Ordered: 06/07/2025 Hepatitis B virus surface Ag [Presence] in Serum or Plasma by Immunoassay Hepatitis B surface antigen Lab Routine Missed menses , unspecified gestational age ([facility]) Ordered: 04/06/2025 [facility] [employer] Comment on above: Ordered: 04/06/2025 Hepatitis C virus Ab [Presence] in Serum or Plasma by Immunoassay Hepatitis C antibody Lab Routine Missed menses , unspecified gestational age ([facility]) Ordered: 04/06/2025 [facility] [employer] Comment on above: Ordered: 04/06/2025 HIV-1/HIV-2 antigen/antibody combination immunoassay HIV-1 and HIV-2 antibodies Lab Routine Missed menses , unspecified gestational age ([facility]) Ordered: 04/06/[address] [facility] Comment on above: Ordered: 04/06/2025 End: 05-30-2026 Protime & INR Protime & INR Lab Routine History of placental abruption Hepatitis C virus infection without hepatic coma, unspecified chronicity 1 Occurrences starting 05/30/2025 until 05/30/2026 [facility] Comment on above: 1 Occurrences starti ng 05/30/2025 until 05/30/2026 Reagin Ab [Presence] in Serum by RPR RPR Lab Routine Missed menses , unspecified gestational age ([facility]) Ordered: 04/06/2025 [facility] Comment on above: Ordered: 04/06/2025 Rubella antibody, IgG Rubella an tibody, IgG Lab Routine Missed menses , unspecified gestational age ([facility]) Ordered: 04/06/[address] [facility] Comment on above: Ordered: 04/06/2025 Payers Date Payer Category Payer Medicaid (Managed Care) [employer] [id number] [facility] xxxxxxxxxxxx 2019-Present [phone] [place] [address] xxxxxxxxxxxx [id number] 2019 Unknown [facility] [id number] 2019-Present [phone] [address] [place] [address] [id number] 2019 Medicaid [employer] [id number]. [id number] 1992 Unknown [id number] 2.16.840.1.877121.3.579.2. 173 1992 Unknown [id number] 2.16.840.1.522851.3.579.2. 173 1992 Unknown [id number] 2.16.840.1.231125.3.579.2. 173 1992 Unknown [id number] 2.16.840.1.500677.3.579.2. 173 1992 Unknown [id number] 2.16.840.1.186736.3.579.2. 196 1992 Unknown [id number] 2.16.840.1.674505.3.579.2. 593 1992 Unknown [id number] 2.16.840.1.417357.3.579.2. 593 1992 Unknown [id number] 2.16.840.1.349851.3.579.2. 593 1992 Unknown [id number] 2.16.840.1.709838.3.579.2. 593 1992 Unknown [id number] 2.16.840.1.227953.3.579.2. 593 1992 Unknown [id number] 2.16.840.1.852874.3.579.2. 593 1992 Unknown [id number] 2.16.840.1.121514.3.579.2. 1286 1992 Unknown [id number] 2.16.840.1.095148.3.579.2. 1286 1992 Unknown [id number] 2.16.840.1.587215.3.579.2. 1259 1992 Unknown [id number] 2.16.840.1.999498.3.579.2. 1259 1992 Unknown [id number] 2.16.840.1.428376.3.579.2. 1259 1992 Unknown [id number] 2.16.840.1.776956.3.579.2. 9 1992 Unknown [id number] 2.16.840.1.222671.3.579.2. 1259 1959 Unknown [id number] Social History Date Type Detail Facility Tobacco smoking stat [facility] Unknown if ever smoked [place], [place] Start: 1990 Sex Assigned At Not on file [place], [place] Start: 04-23-2023 End: 05-30-2025 Tobacco smoking status DEIS Smokes tobacco daily [facility] History of [...] Start: 05-30-2025 Alcoholic beverage intake Ex-drinker (finding) [facility]care Unknown [facility] Start: 06-06-2015 Sex Female (finding) [facility] Start: 05-30-2025 Tobacco smoking stat [facility] Ex-smoker [facility] History of tobacco use Current smoker [facility] Clinical Notes 04-06-2025 to 06-07-2025 Karmen Lynn, JEANNE - 06/07/2025 9:40 AM Clive Raya, ROAD DESIGN ENGINEER - 05/30/2025 10:30 AM Douglas Hernandez MD - 05/30/2025 10:30 AM Deangelo Aguilar LPN - 05/16/2025 11:00 AM EDT [...] (HCC) BMI 28.0-28.9,adult Drug abuse, opioid type [place] Encounter for follow-up Encounter for gynecological examination (general) (routine) without abnormal findings Labial cyst Pain pelvic HISTORY PAST MEDICAL HISTORY SOCIAL HISTORY Past Medical History: Diagnosis Date Abscess of labia Bipolar disorder (HCC) BMI 28.0-28.9,adult Drug abuse, opioid type ([facility] Encounter for follow-up Encounter for gynecological examination [...] nursing note reviewed. Exam conducted with a electrical subcontractor present. Vitals: Estimated body mass index is 27.46 kg/m as calculated from the following: Height as of 12/09/22: 5' 5 . Weight as of this encounter: 165 lb. BP: 118/74 No LMP recorded. Patient is . ASSESSMENT & PLAN ICD-10-CM 1. Third trimester ([facility]) Z34.93 POCT urinalysis dipstick manually resulted 2. 32 weeks gestation of ([facility]) Z3A.32 3. H/O opioid abuse ([facility] F11.11 4. History of placental abruption Z87.59 [...] Mee Pringle DO documented in this encounter [facility] 05-30-2025 History of Present illness Narrative Headache/epigastric [...] No Have you been seen here at [facility] in a previous ? No Recent ER visits or hospitalizations? No Bring blood sugar log or meter with you today? (Please bring them with you for every visit at [facility]) N/A Flu vaccine (Sep-December)? N/A Any [...] it affect 1-4% of women in the [facility]. I reviewed with the patient that Hepatitis [...] intensive care unit. The overall risk of Zalvgliw-Oq-Wjzsk-Transmission (MTCT) during is approximately 4-8%. If the [...] C infection until after 18 months. The [place] [employer] and CDC recommend screening [...] and counseling, coordination of care which was pnyh-rq-mews. documented in this encounter [facility] [employer] 05-16-2025 History of Present illness Narrative Reason [...] (HCC) BMI 28.0-28.9,adult Drug abuse, opioid type ([facility] Encounter for follow-up Encounter for gynecological examination (general) (routine) without abnormal findings Labial cyst Pain pelvic HISTORY PAST MEDICAL HISTORY SOCIAL HISTORY Past Medical History: Diagnosis Date Abscess of labia Bipolar disorder (HCC) BMI 28.0-28.9,adult Drug abuse, opioid type ([facility] Encounter for follow-up Encounter for gynecological examination [...] nursing note reviewed. Exam conducted with a electrical subcontractor present. Vitals: Estimated body mass index is 26.46 kg/m as calculated from the following: Height as of 12/09/22: 5' 5 . Weight as of this encounter: 159 lb. BP: 110/70 No LMP recorded. Patient is . ASSESSMENT & PLAN ICD-10-CM 1. 29 weeks gestation of ([facility]) Z3A.29 POCT urinalysis dipstick manually resulted 2. Third trimester ([facility]) Z34.93 POCT urinalysis dipstick manually resulted 3. Request for sterilization Z30.2 4. H/O opioid abuse ([facility] F11.11 5. History of placental abruption Z87.59 [...] Mee Pringle DO documented in this encounter [facility] 05-02-2025 History of Present illness Narrative Reason [...] (HCC) BMI 28.0-28.9,adult Drug abuse, opioid type ([facility] Encounter for follow-up Encounter for gynecological examination (general) (routine) without abnormal findings Labial cyst Pain pelvic HISTORY PAST MEDICAL HISTORY SOCIAL HISTORY Past Medical History: Diagnosis Date Abscess of labia Bipolar disorder (HCC) BMI 28.0-28.9,adult Drug abuse, opioid type ([facility] Encounter for follow-up Encounter for gynecological examination [...] nursing note reviewed. Exam conducted with a electrical subcontractor present. Vitals: Estimated body mass index is 26.26 kg/m as calculated from the following: Height as of 12/09/22: 5' 5 . Weight as of this encounter: 157 lb 12.8 oz. BP: 104/70 No LMP recorded. Patient is . ASSESSMENT & PLAN ICD-10-CM 1. Second trimester ([facility]) Z34.92 2. 27 weeks gestation of ([facility]) Z3A.27 3. Request for sterilization Z30.2 4. H/O opioid abuse ([facility] F11.11 5. History of placental abruption Z87.59 [...] Mee Pringle DO documented in this encounter [facility] 04-18-2025 History of Present illness Narrative Reason [...] (HCC) BMI 28.0-28.9,adult Drug abuse, opioid type ([facility] Encounter for follow-up Encounter for gynecological examination (general) (routine) without abnormal findings Labial cyst Pain pelvic HISTORY PAST MEDICAL HISTORY SOCIAL HISTORY Past Medical History: Diagnosis Date Abscess of labia Bipolar disorder (HCC) BMI 28.0-28.9,adult Drug abuse, opioid type ([facility] Encounter for follow-up Encounter for gynecological examination [...] nursing note reviewed. Exam conducted with a electrical subcontractor present. Vitals: Estimated body mass index is 25.79 kg/m as calculated from the following: Height as of 12/09/22: 5' 5 . Weight as of this encounter: 155 lb. BP: 112/64 No LMP recorded. Patient is . ASSESSMENT & PLAN ICD-10-CM 1. Second trimester ([facility]) Z34.92 POCT urinalysis dipstick manually resulted 2. 25 weeks gestation of ([facility]) Z3A.25 Return OB: Patient presents today for [...] Mee Pringle DO documented in this encounter [facility] 04-06-2025 History of Present illness Narrative Reason [...] Diagnosis Date Abscess of labia Bipolar disorder ([facility]) BMI 28.0-28.9,adult Drug abuse, opioid type ([facility] Encounter for follow-up Encounter for gynecological examination [...] dipstick manually resulted , unspecified gestational age ([facility]) - Type and screen; Future - ABO/Rh; Future - CBC and differential - Hemoglobin A1c - RPR - Rubella antibody, IgG - Hepatitis B surface antigen - Hepatitis C antibody - HIV-1 and HIV-2 antibodies - Rapid drug screen, urine; Future Encounter for supervision of normal first in first trimester ([facility]) - Rapid drug screen, urine; Future Screening, , for anatomic survey ([facility]) - OB 14+ weeks anatomy scan; Future Diabetes mellitus screening - CBC; Future - Glucose tolerance, 1 hour; Future headache in second trimester ([facility]) - magnesium oxide (Mag-Ox) 400 MG tablet; [...] or undercooked meat, and stay away from [facility]. Patient has also been advised to [...] Olive Leon LPN documented in this encounter [facility] Healthcare Evaluation note Diagnosis Missed menses , unspecified gestational age ([facility]) Encounter for supervision of normal first in first trimester ([facility]) Screening, , for anatomic survey ([facility]) Encounter for anatomic survey Diabetes mellitus screening Screening for diabetes mellitus headache in second trimester ([facility]) documented in this encounter [facility] HealthcareEvaluation note* Diagnosis Second trimester ([facility]) state, incidental 25 weeks gestation of ([facility]) documented in this encounter [facility] HealthcareEvaluation note* Diagnosis Second trimester ([facility]) state, incidental 27 weeks gestation of ([facility]) Request for sterilization H/O opioid abuse ([facility] History of placental abruption [facility] Diagnosis 29 weeks gestation of ([facility]) Third trimester ([facility]) state, incidental Request for sterilization H/O opioid abuse ([facility] History of placental abruption [facility] Diagnosis History of placental abruption- Primary Hepatitis C virus infection without hepatic coma, unspecified chronicity documented [facility]* Diagnosis Third trimester ([facility]) state, incidental 32 weeks gestation of ([facility]) H/O opioid abuse ([facility]-H[facility]) History of placental abruption Diabetes mellitus screening Screening for diabetes mellitus documented in this encounter [facility]ructionsNot on filedocumented in this encounterProMediUK Healthcare SystemInstructionsNot on filedocumented in this encounterProCent[place] SystemInstructionsNot on filedocumented in this encounterProCenterville System Summary Purpose Family History No Family History Records FoundNo Family History Records FoundNo Family History Records FoundNo Family History Records FoundNo Family History Records FoundNo Family History Records Found Advance Directives Documents on File Type Date Recorded Patient Sill Worker Expl anation Advance Directives and Living Will Power of Powerhouse Attendant Documents on File Type Date Recorded Patient Sill Worker Expl anation ACP-Advance Directive ACP-Power of Powerhouse Attendant Additional Source Comments INFORMATION SOURCE (unrecogn ized section and content) DATE CREATED AUTHOR 10/10/2018 [facility] DATE CREATED AUTHOR AUTHOR'S ORGANIZ ATION 12/06/2020 [facility] pital DATE CREATED AUTHOR AUTHOR'S ORGANIZ ATION 03/29/2021 [facility] DATE CREATED AUTHOR AUTHOR'S ORGANIZ ATION 12/10/[address] [facility] pital DATE CREATED AUTHOR AUTHOR'S ORGANIZ ATION 06/01/2025 [facility] DATE CREATED AUTHOR AUTHOR'S ORGANIZ ATION 06/09/2025 [facility] Special[facility] EPIC Reason for Visit (unrecogniz ed section and content) Reason Comments Amenorrhea Reason Comments Routine Visit Reason Comments Hepatitis C Current Everyday Smoker Care Teams (unrecognized sec tion and content) Biomass Technician Relationship Specialty Start Date End Date No Pcp, [place] [address] PCP - General Family Medicine 04/27/20 Biomass Technician Relationship Specialty Start Date End Date No Pcp, [place] [address] PCP - General Family Medicine 04/27/20 Biomass Technician Relationship Specialty Start Date End Date No Pcp, [place] [address] PCP - General Family Medicine 04/27/20 FOR [...] ON THE PRIMARY CLINICAL RECORDS. [facility] [employer] [facility]. provides no warranty or guarantee of the accuracy or completeness of information in this document.
[2025-06-21 12:03] VITALS: BP 115/60; PULSE 86
== END 2025-06-21 12:36 | disposition home or self-care (01) ==
LOC: FBCO 11:56 → FBC 11:58
PROVIDERS: PCP Nurse Practitioner Family; Visit Provider Obstetrics & Gynecology
DX: O26.893 Other specified pregnancy related conditions, third trimester (principal); Z3A.34 34 weeks gestation of pregnancy
CPT/HCPCS: 59025

== ENCOUNTER 2025-06-27 14:43 | Outpatient (REF) | payer OTHER, SELFPAY ==
--- OUTSIDE RECORDS SUMMARY | 2019-12-25 20:00 | XMS_ITS | Continuity of Care Document ---
Author Organization [facility] Address [address] [place] [address] Phone Care Team Providers Care Cap Inspector Name Role Phone Pavlock DO, Max Unavailable [...] drug services- Acute Deto x Acute Detox Aviation Safety Technician Acute Detox Aviation Safety Technician DRUG TEST PRSMV DIR OPT OBS URINE TEST Acute Detox Aviation Safety Technician Advance Directives Directive Yes / No Effective Date File Name No Information Encounters Encounter Description Practice Location Reason(s) For Visit Diagnoses Date Provider Providers Copied on Encounter [facility], [address] [place] [address], [id number] , tel: [phone] [facility] Detox Opioid dependence with withdrawalAlcohol dependence with withdrawal, uncomplicated 0 Pavlock DO Max. [address] [place] [address], [id number] , [place]. tel: [phone] [facility], [address] [place] [address], [id number] , tel: [phone] [facility] Detox Opioid dependence with withdrawal 0 Pavlock DO Max. [address] [place] [address], [id number] , [place]. tel: [phone] [facility], [address] [place], [place], [id number] , [place] tel: [phone] [facility] Detox Opioid dependence with withdrawal Feb-2 0 Pavlock DO Max. [address] [place], [place], [id number] , [place]. tel: [phone] [facility], [address] [place], [place], [id number] , [place] tel: [phone] [facility] Detox alcohol and heroin dependence (chief complaint) Opioid dependence with withdrawalAlcohol dependence with withdrawal, uncomplicated Feb-2 0 [place] Ayala. [address] [place], [place], [id number] , [place]. tel: [phone] [facility], [address] [place] [address], [id number] , [place] tel: [phone] [facility] Detox Opioid dependence with withdrawal Feb-2 0 Pavlock DO Max. [address] [place], [place], [id number] , [place]. tel: [phone] [facility], [address] [place] [address], [id number] , [place] tel: [phone] [facility] Detox Opioid dependence with withdrawalEncounter for test, result negative b-2 0 Pavlock DO Max. [address] [place], [place], [id number] , [place]. tel: [phone] Family History Family Member Type Diagnosis Age At Onset No Information Payers Payer name Insurance type Covered democrat ID Homar sellers(s) [facility] [id number] Social History Type Description Quantity Date Captured [...]
--- OUTSIDE RECORDS SUMMARY | 2025-03-02 05:30 | XMS_ITS ---
Author Organization The [facility] in [place] Address [address] [place] [address] Care Team Providers Care College Instructor Name Role Phone Farideh Smith Primary Care [...] 03/02/2025 Encounters Encounter Location Date Provider Diagnosis [facility] [address] [place] [address] 03/02/2025 Farideh Smith [facility] physical exam Z02.0 Assessments Encounter Date [...] Carmelita YANEZ NDOB:[birth year] (34 yo F)Acc No.[id number]:03/02/2025 Progress Note Patient: Carmelita HO Provider: Nazario Smith ([facility]), MEAT CLERK :1990 A ge:34 Y S ex:Female Date:03/02/2025 Address:[address] [place], [place] [phone] Check In:09:23 AM ESTCheck O ut:09:46 AM [...] * Electronically signed by Carla Smith , HEALTHCARE BUSINESS ANALYST, PRODUCT MGMT DEV MANAGER.MEAT CLERK.[id number] on 03/05/2025 at 11:45 AM EDT Sign off status: Completed Visit Status: C HK (Check Out) true * Provider: Nazario Smith ([facility]), MEAT CLERK Date: 03/02/2025 Generated for Hillary medina/Juliana/eTransmitting on: 06/27/2025 02:46 PM EDT History and Physical Notes * HPI [...]
--- OUTSIDE RECORDS SUMMARY | 2025-04-04 07:31 | XMS_ITS ---
Author Organization The [facility] in [place] Address [address] [place] [address] Care Team Providers Care Reel Blade Bender Furnace Tender Name Role Phone Farideh Smith Primary Care [...] Active Encounters Encounter Location Date Provider Diagnosis [facility] [address] [place] [address] 04/04/2025 Farideh Smith Anxiety F41.9 Assessments Encounter [...] Carmelita YANEZ NDOB:[birth year] (34 yo F)Acc No.[id number]:04/04/2025 Patient: Carmelita HO Jennifer :1990 A ge:34 Y S ex:Female Address:[address] [place] [phone] * Refills Refill Gabapentin Capsule, 100 MG, [...] Date: Generated for Hillary medina/Juliana/Ceciliaitting on: 0 06/27/2025 09:47 AM EDT
--- OUTSIDE RECORDS SUMMARY | 2025-05-30 09:28 | XMS_ITS ---
Author Organization [facility] in [place] Address [address] [place] [address] Care Team Providers Care Last Model Maker Name Role Phone Farideh Smith Primary Care Provider [phone] REASON FOR VISIT Gabapentin Medications Medication SIG [...] [facility] [address] [place] [address] 05/30/2025 Farideh Smith Plan Of Treatment No Information Progress Notes * Carmelita YANEZ NDOB:[birth year] (34 yo F)Acc No.[id number]:05/30/2025 Patient: Carmelita HO :1990 A ge:34 Y S ex:Female Address:[address] [place] [phone] Subjective: * Chief Complaints: * G abapentin [...] Date: Generated for Hillary medina/Juliana/Columba on: 0 06/27/2025 09:47 AM EDT
--- OUTSIDE RECORDS SUMMARY | 2025-06-27 14:45 | XMS_ITS | Clinical Summary ---
Author Organization [facility] [employer] [facility] Address [id number] [address] [place] [address] Care Team Providers Care Machine Crater Name Role Phone No Pcp, No Pcp [...] AM EDT Office Visit Maternal- Medicine at [facility] [address] [place] [phone] Nohemy Hernandez MD History of placental abruption (Primary Dx); Hepatitis C virus infection without hepatic coma, unspecified chronicity 05/30/2025 9:15 AM EDT - 05/30/2025 11:59 PM EDT Hospital Encounter [facility] - [facility] Imaging [address] [place] [phone] Screening, , for anatomic survey Discharge Disposition: Home 05/30/2025 Orders Only Maternal- Medicine at [facility] [address] [place] [phone] Paradise Raya LPN 05/30/2025 Travel 05/30/2025 Abstract Maternal- Medicine at [facility] [address] [place] [phone] Nohemy Hernandez MD 05/30/2025 Orders Only Maternal- Medicine at [facility] [address] [place] [phone] Ref Prov, Not In System 05/30/2025 Abstract Maternal- Medicine at [facility] [address] [place] [phone] Nohemy Hernandez MD from Last 3 Months [...] Team (Late st Contact Info) Description 07/05/2025 11:00 AM EDT Appointment Maternal Medicine [facility] [address] [facility] [address] [place] [phone] 07/05/2025 2:30 PM EDT Telemedicine Maternal- Medicine at [facility] [address] [place] [phone] Tasia Dowd MD [address] [facility] [address] [place] [address] Health Maintenance Due Date Last Done Comments [...] Name Priority Date/Time Associated Diagnosis Comments US MFM COMPREHENSIVE ANATOMIC SURVEY Routine 05/30/2025 10:52 AM [...] from Last 3 Months Results * US MFM COMPREHENSIVE ANATOMIC SURVEY (05/30/2025 10:52 AM EDT) Anatomical Region Laterality Modality OB-[employer] Ultrasound 05/30/2025 9:40 AM EDT Narrative 05/30/2025 12:58 PM EDT NAME: YOAV MUNOZ : 1990 SEX: F Accession Number: [id number] ORDERING PHYSICIAN: MEE PRINGLE REFERRING PHYSICIAN: MEE PIRNGLE Coding ----- --------- Procedures [id number]: Ultrasound, uterus, real time with image documentation, and maternal evaluation plus detailed anatomic examination, transabdominal approach;single or first gestation Indication ----- --------- Screening for Anatomic Survey, Hepatitis C in , Malformation of placenta- complete circumvallate,History of prior with delivery- placental abruption, Previous History ----- --------- OB History 4. Para 3 [id number] Maternal Assessment ----- --------- Physical Exam Initial [...] EFW (oz) 14 oz EFW by: Hadlock ([id number]) Extended Tibia 48.3 mm 29w 1d 6% Mara Assistant Tennis Coach 2.3 mm CM 9.6 mm 95% Nicolaides [...] view. RVOT view. LVOT view. 3-vessel view. 7-dqahwx-nimfgsp view. Situs. Bicaval view. Interventricular septum. Great [...] placenta noted. Recommendations ----- --------- Please see [facility] documentation from today. The patient is scheduled in four week(s) to complete anatomic survey. Subsequent follow up or other follow up as clinically determined by primary OB provider unless otherwise specified by [facility]. Results forwarded to ordering provider so they can follow up with the patient as necessary. Procedure Note Nohemy Hernandez MD - 05/30/2025 NAME: YOAV MUNOZ : 1990 SEX: F Accession Number: [id number] ORDERING PHYSICIAN: MEE PRINGLE REFERRING PHYSICIAN: MEE PRINGLE Coding ----- --------- Procedures [id number]: Ultrasound, uterus, real time with imagedocumentation, and maternal evaluation plus detailed anatomic examination, transabdominalapproach;single or first gestation Indication ----- --------- Screening for Anatomic Survey, Hepatitis C in , Malformation ofplacenta- complete circumvallate,History of prior with delivery- placental abruption, Previous History ----- --------- OB History 4. Para 3 [id number] Maternal Assessment ----- --------- Physical Exam Initial [...] EFW (oz) 14 oz EFW by: Hadlock ([id number]) Extended Tibia 48.3 mm 29w 1d 6% Mara Assistant Tennis Coach 2.3 mm CM 9.6 mm 95% Nicolaides [...] 4-chamber view. RVOT view. LVOT view. 3-vessel view.7-chgidt-giolsxf view. Situs. Bicaval view. Interventricular septum. Great [...] placenta noted. Recommendations ----- --------- Please see [facility] documentation from today. The patient is scheduled in four week(s) to complete anatomic survey. Subsequent follow up or other follow up as clinically determined byprimary OB provider unless otherwise specified by [facility]. Results forwarded to ordering provider so they can follow up with thepatient as necessary. us Mee Pringle DO [facility] US ORDERABLES Final Result * Ultrasound - [...] ORDERABLES Yun l Result Performing Organization Address City/[facility]/ZIP Co de Phone Number MANUALLY TRANSCRIBED RESULTS * Rubella IGG immune status (05/21/2025) Rubella immune IgG <0.90 MANUALLY TRANSCRIBED RESULTS Blood Venous blood / Unknown us Not In System Ref Prov LAB BLOOD ORDERABLES Yun l Result Performing Organization Address City/[facility]/ZIP Co de Phone Number MANUALLY TRANSCRIBED RESULTS * Syphilis Total (Unknown Syphilis Status) (05/21/2025) Syphilis NON-REACTI VE MANUALLY TRANSCRIBED RESULTS Blood Venous blood / Unknown us Not In System Ref Prov LAB BLOOD ORDERABLES Yun l Result Performing Organization Address City/[facility]/ZIP Co de Phone Number MANUALLY TRANSCRIBED RESULTS * Hepatitis C(HCV) Ab w/ Reflex to PCR (05/21/2025) Hepatitis C Antibody REACTIVE MANUALLY TRANSCRIBED RESULTS Blood Venous blood / Unknown us Not In System Ref Prov LAB BLOOD ORDERABLES Yun l Result MANUALLY TRANSCRIBED RESULTS * Drug Screen, Urine [...] ORDERABLES Final Re sult Performing Organization Address [facility] de Phone Number MANUALLY TRANSCRIBED RESULTS * Hepatitis B surface antigen (05/21/2025) Hepatitis B Surface Antigen NEGATIVE MANUALLY TRANSCRIBED RESULTS Blood Venous blood / Unknown us Not In System Ref Prov LAB BLOOD ORDERABLES Yun l Result Performing Organization Address [facility] de Phone Number MANUALLY TRANSCRIBED RESULTS * CBC without diff (05/21/2025) Hemoglobin 10.8 MANUALLY TRANSCRIBED RESULTS Hematocrit 30.6 MANUALLY TRANSCRIBED RESULTS Rbc Mcv (Fl) By Automated Count 79.3 MANUALLY TRANSCRIBED RESULTS Platelets 176 MANUALLY TRANSCRIBED RESULTS Blood Venous blood / Unknown us Not In System Ref Prov LAB BLOOD ORDERABLES Yun l Result Performing Organization Address [facility] de Phone Number MANUALLY TRANSCRIBED RESULTS * Type and screen (05/21/2025) Abo/Rh(D) B Positive MANUALLY TRANSCRIBED RESULTS Antibody Screen NEGATIVE MANUALLY TRANSCRIBED RESULTS Blood Venous blood / Unknown us Not In System Ref Prov BLOOD BANK TEST ORDERABLE S Final Result Performing Organization Address [facility] Co de Phone Number MANUALLY TRANSCRIBED RESULTS * Hemoglobin A1c (05/21/2025) Hemoglobin A1C 4.7 4.0 - 6.0 % MANUALLY TRANSCRIBED RESULTS Blood Venous blood / Unknown us Nohemy Hernandez MD LAB BLOOD ORDERABLES Final Re sult MANUALLY TRANSCRIBED RESULTS from Last 3 Months Insurance [place] Care Teams Machine Crater Relationship Specialty Start Date End Date No Pcp, No Pcp RUY Stephen [phone] PCP - General Family Medicine 04/27/20
--- OUTSIDE RECORDS SUMMARY | 2025-06-27 14:45 | XMS_ITS | Patient Health Record ---
Author Organization The [facility] in [place] Address [address] [place] [address] Care Team Providers Care Anode Crew Supervisor Name Role Phone Farideh Gar Primary Care Provider Allergies Allergen (clinical drug ingredient) Drug/Non Drug Allergy documented on EMR Reaction Allergy Type Onset Date Status Penicillin childhood/unknow n Drug Allergy Active Results Component Value Reference Range Notes PREG QUANT HCG Reviewed date:11/29/2024 11:58:32 AM Interpretation: Performing Lab: Notes/Report: [facility] , [facility] [place] 3026 5-50 0.2-1 WEEK 50-500 1-2 WEEKS 100-5,000 2-3 WEEKS 500-10,000 3-4 WEEKS 1,000-50,000 4-5 WEEKS 10,000-100,000 5-6 WEEKS 15,000-200,000 6-8 WEEKS 10,000-100,000 2-3 MONTHS Performing Lab: see note ML - [facility] US OB cervical length Reviewed date:04/09/2025 01:25:12 PM Interpretation: Performing Lab: Notes/Report: Source Facility: [facility]-[address] [place] [address] [place] [address] Ultrasound Report Signed Patient: CARMELITA CASON MR#: [id number] : 1990 Acct:[id number] Age/Sex: 34 / F ADM Date: 04/09/25 Loc: US Attending Dr: Paradise Olvera Ordering Physician: Paradise Olvera Date of Service: 04/09/25 Procedure(s): US OB cervical length Accession Number(s): [id number] cc: Paradise Olvera; FARIDEH GAR [address] [address] Patient Name: CARMELITA CASON MRN: [id number] date: 1990 Sex: F Assigned Patient Location: US Current Patient Location: US Accession/Order Number: [id number] Exam Date: 04/09/2025 12:20 Report Date: 04/09/2025 [...] all 4 extremities were surveyed by the cnc wood lathe operator. No abnormalities were detected. The stomach, bladder, [...] Zelaya M.D. 04/09/2025 1:01 PM Dictation Location: [place] [address] Electronically authenticated by: [id number] Y Date: 04/09/2025 13:01 Dictated By: Raine Zelaya M.D. Signed By: 04/09/25 1304 DD/ 1301 TD/TT: Blowing Weasand: [address] [address] Ultrasound Report Signed Patient: JUNAID CASON SA MR#: [id number] : 1990 Acct:[id number] Age/Sex: 34 / F ADM Date: 04/09/25 Loc: US Attending Dr: Paradise Olvera Ordering Physician: Paradise Olvera Date of Service: 04/09/25 Procedure(s): US OB cervical length Accession Number(s): [id number] cc: Paradise Olvera; FARIDEH GAR [place] [id number] Patient Name: CARMELITA CASON MRN: [id number] date: 1990 Sex: F Assigned Patient Location: US Current Patient Location: US Accession/Order Number: [id number] Exam Date: 04/09/2025 12:20 Report Date: 04/09/2025 [...] all 4 extremities were surveyed by the cnc wood lathe operator. No abnormalities were detected. The stomach, bladder, [...] Zelaya M.D. 04/09/2025 1:01 PM Dictation Location: [place] [address] Electronically authenticated by: [id number] Y Date: 04/09/2025 13:01 Dictated By: Raine Zelaya M.D. Signed By: 04/09/25 1304 DD/ 1301 TD/TT: Blowing Weasand: US OB anatomy Reviewed date:04/09/2025 01:25:12 PM Interpretation: Performing Lab: Notes/Report: Source Facility: [place] [address] Ultrasound Report Signed Patient: CARMELITA CASON MR#: [id number] : 1990 Acct:[id number] Age/Sex: 34 / F ADM Date: 04/09/25 Loc: US Attending Dr: Paradise Olvera Ordering Physician: Paradise Olvera Date of Service: 04/09/25 Procedure(s): US OB anatomy Accession Number(s): [id number] cc: Paradise Olvera; FARIDEH GAR [place] [address] Patient Name: CARMELITA CASON MRN: [id number] date: 1990 Sex: F Assigned Patient Location: Current Patient Location: US Accession/Order Number: [id number] Exam Date: 04/09/2025 12:20 Report Date: 04/09/2025 [...] all 4 extremities were surveyed by the cnc wood lathe operator. No abnormalities were detected. The stomach, bladder, [...] Zelaya M.D. 04/09/2025 1:01 PM Dictation Location: [place] [address] Electronically authenticated by: [id number] Y Date: 04/09/2025 13:01 Dictated By: Raine Zelaya M.D. Signed By: 04/09/25 1304 DD/ 1301 TD/TT: Blowing Weasand: [place] [address] Ultrasound Report Signed Patient: JUNAID CASON SA MR#: [id number] : 1990 Acct:[id number] Age/Sex: 34 / F ADM Date: 04/09/25 Loc: US Attending Dr: Paradise Olvera Ordering Physician: Paradise Olvera Date of Service: 04/09/25 Procedure(s): US OB anatomy Accession Number(s): [id number] cc: Paradise Olvera; FARIDEH GAR [address] [address] Patient Name: CARMELITA CASON MRN: [id number] date: 1990 Sex: F Assigned Patient Location: US Current Patient Location: US Accession/Order Number: [id number] Exam Date: 04/09/2025 12:20 Report Date: 04/09/2025 [...] all 4 extremities were surveyed by the cnc wood lathe operator. No abnormalities were detected. The stomach, bladder, [...] Zelaya M.D. 04/09/2025 1:01 PM Dictation Location: [place] [address] Electronically authenticated by: [id number] Y Date: 04/09/2025 13:01 Dictated By: Raine Zelaya M.D. Signed By: 04/09/25 1304 DD/ 1301 TD/TT: Blowing Weasand: CBC AUTO DIFF Reviewed date:05/21/2025 04:53:53 PM Interpretation: Performing Lab: Notes/Report: [facility] , White Blood Count 11.8 4.0-11.0 10 [...] 3/uL Performing Lab: see note ML - [facility] LB GLYCOHEMOGLOBIN A1C Reviewed date:05/21/2025 04:53:53 PM Interpretation: Performing Lab: Notes/Report: [facility] , Glycohemoglobin A1C 4.7 4.5-6.2 % ADA RECOMMENDED LIMIT 4.0 - 6.0 ADA THERAPEUTIC TARGET < 7.0 ACTION SUGGESTED > 7.0 Estimated Average Glucose 88 Performing Lab: see note ML - [facility] LB HIV Ab/p24 Ag with Reflex Reviewed date:05/22/2025 08:19:07 AM Interpretation: Performing Lab: Notes/Report: [facility] , HIV Ab/p24 Ag Screen Non Reactive Non Reactive HIV-1/HIV-2 antibodies and HIV-1 p24 antigen were NOT detected. There is no laboratory evidence of HIV infection. HIV Negative Performed at: [address] [id number] Screw Machine Tool Setter: Aric Pryor PhD, Phone: [phone] Performing Lab: see note [facility] Urine Culture, Routine Reviewed date:05/23/2025 08:29:33 [...] Culture, Routine Urine Culture, Routine Performed at: [facility] Urine Culture, Routine Urine Culture, Routine [address] [place] [phone] Urine Culture, Routine Urine Culture, Routine Screw Machine Tool Setter: Isrrael Pryor PhD, Phone: [phone] Urine Culture, Routine Performing Lab: see note [facility] SEE REPORT - Double Backer Id information not found for OBX-specific log hooker legend Buprenorphine Confirm, Urine Reviewed date:05/24/2025 12:34:03 PM Interpretation: Performing Lab: Notes/Report: [facility] , Buprenorphine Positive . Confirmation p erformed by Mass Spectrometry Buprenorphine Positive . Buprenorphine Conf, MS, UR 525 Cutoff=10 ng/mL Norbuprenorphine Positive . Norbuprenorphine Conf, MS,UR 905 Cutoff=10 ng/mL Performed at: [facility] [address] [facility], [place], [place] [id number] Screw Machine Tool Setter: Soledad Mendieta PhD, Phone: [phone] Performing Lab: see note LC - [facility] LB US OB BPP w non-stress Reviewed date:06/05/2025 03:34:23 PM Interpretation: Performing Lab: Notes/Report: Source Facility: [place] [address] [place] [address] Ultrasound Report Signed Patient: CARMELITA CASON MR#: [id number] : 1990 Acct:[id number] Age/Sex: 34 / F ADM Date: 06/05/25 Loc: US Attending Dr: Mee Pringle D.O. Ordering Physician: Mee Pringle D.O. Date of Service: 06/05/25 Procedure(s): US OB BPP w non-stress Accession Number(s): [id number] cc: FARIDEH GAR ; Mee Pringle D.O. [place] [address] Patient Name: CARMELITA CASON MRN: [id number] date: 1990 Sex: F Assigned Patient Location: Current Patient Location: Accession/Order Number: [id number] Exam Date: 06/05/2025 11:53 Report Date: 06/05/2025 12:03 At the request of: MEE PRINGLE DO Procedure: US OB BPP w non-stress Biophysical profile. Reason for exam: History of opioid abuse COMPARISON: None TECHNIQUE: Transabdominal imaging of the gravid uterus was obtained. FINDINGS: The cnc wood lathe operator reports a BPP of 8 out of 8. ELIZABETH is normal at 21 cm. heart rate 135 bpm. US/US OB BPP w non-stress IMPRESSION: BPP 8 out of 8. Impression dictated by: Serafin Sorto Jr., D.O. 06/05/2025 12:03 PM Dictation Location: [place] [address] Electronically authenticated by: [id number] Y Date: 06/05/2025 12:03 Dictated By: Serafin Sorto M.D. Signed By: 06/05/25 1206 DD/ 1203 TD/TT: Blowing Weasand: [place] [address] Ultrasound Report Signed Patient: JUNAID CASON SA MR#: [id number] : 1990 Acct:[id number] Age/Sex: 34 / F ADM Date: 06/05/25 Loc: US Attending Dr: Mee Pringle D.O. Ordering Physician: Mee Pringle D.O. Date of Service: 06/05/25 Procedure(s): US OB BPP w non-stress Accession Number(s): [id number] cc: FARIDEH GAR ; Mee Pringle D.O. [place] [address] Patient Name: CARMELITA CASON MRN: [id number] date: 1990 Sex: F Assigned Patient Location: US Current Patient Location: Accession/Order Number: [id number] Exam Date: 06/05/2025 11:53 Report Date: 06/05/2025 12:03 At the request of: MEE PRINGLE DO Procedure: US OB fet al BPP w non-stress Biophysical profile. Reason for exam: History of opioid abuse COMPARISON: None TECHNIQUE: Transabdominal imaging of the gravid uterus was obtained. FINDINGS: The cnc wood lathe operator reports a BPP of 8 out of 8. ELIZABETH is normal at 21 cm. heart rate 135 bpm. US/US OB BPP w non-stress IMPRESSION: BPP 8 ou t of 8. Impression dictated by: Serafin Sorto Jr., D.O. 06/05/2025 12:03 PM Dictation Location: [place] [address] Electronically authenticated by: [id number] Y Date: 06/05/2025 12:03 Dictated By: Serafin Sorto M.D. Signed By: 06/05/256 DD/ 02 TD/TT: Blowing Weasand: GLYCOHEMOGLOBIN A1C Reviewed date:06/08/2025 01:28:14 PM Interpretation: Performing Lab: Notes/Report: [facility] , Glycohemoglobin A1C 4.6 4.5-6.2 % ADA RECOMMENDED LIMIT 4.0 - 6.0 ADA THERAPEUTIC TARGET < 7.0 ACTION SUGGESTED > 7.0 Estimated Average Glucose 85 Performing Lab: see note ML - [facility] LB PROF 14(COMP METB) Reviewed date:06/08/2025 01:28:14 PM Interpretation: Performing Lab: Notes/Report: [facility] , Sodium 140 136-145 mmol/L Potassium 3.4 [...] 0.6 Performing Lab: see note ML - [facility] PTT Reviewed date:06/08/2025 01:28:14 PM Interpretation: Performing Lab: Notes/Report: [facility] , Partial Thromboplastin Time 23.4 22.3-36.2 sec Performing Lab: see note ML - [facility] Prothrombin Time INR Reviewed date:06/08/2025 01:28:14 PM Interpretation: Performing Lab: Notes/Report: [facility] , Prothrombin Time 10.3 9.0-11.6 sec INR 0.97 DESIRED INR: 2.0-3.0 CONDITIONS NOT LISTED BELOW 2.5-3.5 FOR PROSTHETIC HEART VALVE REPLACEMENT 2.5-3.5 RECURRENT THROMBOSIS Performing Lab: see note ML - [facility] Anticardiolip Ab, IgA/G/M, Q n Reviewed date:06/11/2025 [...] - 80 High Positive: >80 Performed at: [address] [id number] Screw Machine Tool Setter: Aric Pryor PhD, Phone: [employer] Performing Lab: see note [facility] LB Beta-2 Glycoprotein I Ab,G,A ,M Reviewed date:06/21/2025 08:28:54 AM Interpretation: Performing Lab: Notes/Report: [facility] , Beta-2 Glycoprotein I Ab, IgG <9 0-20 Result Units: GPI IgG units The reference interval reflects a 3SD or 99th percentile interval, which is thought to represent a potentially clinically significant result in accordance with the International Consensus Statement on the classification criteria for definitive antiphospholipid syndrome (APS). J Thromb Haem 2006;4:295-306. Beta-2 Glycoprotein I Ab, IgA <9 0-25 Result Units: GPI IgA units The reference interval reflects a 3SD or 99th percentile interval, which is thought to represent a potentially clinically significant result in accordance with the International Consensus Statement on the classification criteria for definitive antiphospholipid syndrome (APS). J Thromb Haem 2006;4:295-306. Beta-2 Glycoprotein I Ab, IgM <9 0-32 Result Units: GPI IgM units The reference interval reflects a 3SD or 99th percentile interval, which is thought to represent a potentially clinically significant result in accordance with the International Consensus Statement on the classification criteria for definitive antiphospholipid syndrome (APS). J Thromb Haem 2006;4:295-306. Performed at: [facility] [employer] [id number] Screw Machine Tool Setter: Aric Pryor PhD, Phone: [phone] Performing Lab: see note [facility] Reviewed date:06/21/2025 08:28:54 AM Interpretation: Performing Lab: Notes/Report: [facility] , [facility] 38.6 . sec Reference Range: <= 47.0 DRVVT CONFIRM TNP . sec Testing Not In dicated DRVVT RATIO TNP . ratio Testing Not Indicated Performed at: [facility] [address] [id number] Screw Machine Tool Setter: Martin Vines MD, Phone: [phone] Performing Lab: see note [facility] LB HBsAg Screen Reviewed date:05/22/2025 02:13:41 PM Interpretation: Performing Lab: Notes/Report: [facility] , HBsAg Screen Negative Negative Performed at: [address] [id number] Screw Machine Tool Setter: Aric Pryor PhD, Phone: [phone] Performing Lab: see note [facility] HCV Antibody RFX to Quant PC R Reviewed date:05/24/2025 03:14:14 PM Interpretation: Performing Lab: Notes/Report: [facility] , HCV Ab Reactive Non Reactive Hepatitis C Quantitation 76876 . IU/mL HCV log10 4.819 . Result Units: l og10 IU/mL Test Information: Comment . The quantitative range of this assay is 15 IU/mL to 100 million IU/mL. Interpretation: Comment . Positive HCV antibody screen with the presence of HCV RNA is consistent with active infection. Performed at: [address] [id number] Screw Machine Tool Setter: Aric Pryor PhD, Phone: [phone] Performed at: [address] [id number] Screw Machine Tool Setter: Miles Owens MD, Phone: [phone] Performing Lab: see note [facility] Rapid Plasma Reagin, Quant Reviewed date:05/22/2025 [...] utilized, such as Treponema pallidum (Syphilis) Screening Remlap (708384) or Rapid Plasma Reagin (RPR) Test With Reflex to Quantitative RPR and Confirmatory Treponema pallidum Antibodies (168123). Performed at: [facility] [address] [id number] Screw Machine Tool Setter: Aric Pryor PhD, Phone: [phone] Performing Lab: see note [facility] Type and Screen Reviewed date:05/21/2025 04:53:53 PM Interpretation: Performing Lab: Notes/Report: [facility] , Blood Type B Positive Antibody Screen NEGATIVE RUBELLA AB IGG Reviewed date:05/24/2025 03:14:14 PM Interpretation: Performing Lab: Notes/Report: [facility] , Rubella Antibodies, IgG <0.90 Immune > 0.99 index Non-immune <0.90 Equivocal 0.90 - 0.99 Immune >0.99 Performed at: [facility] [id number] Screw Machine Tool Setter: Aric Pryor PhD, Phone: [phone] Performing Lab: see note [facility] LB DRUG SCREEN RAPID (URINE) Reviewed date:05/21/2025 04:53:53 PM Interpretation: Performing Lab: Notes/Report: [facility] , Cannabinoid Screen Urine NEGATIVE NEGATIVE Phencyclidine [...] ng/mL Performing Lab: see note ML - [facility] US OB <= 14 weeks fetus Reviewed date:01/22/2025 04:10:34 PM Interpretation: Performing Lab: Notes/Report: Source Facility: [place] [address] [place] [address] Ultrasound Report Signed Patient: CARMELITA CASON MR#: [id number] : 1990 Acct:[id number] Age/Sex: 34 / F ADM Date: 01/22/25 Loc: US Attending Dr: Mee Pringle D.O. Ordering Physician: Mee Pringle D.O. Date of Service: 01/22/25 Procedure(s): US OB <= 14 weeks fetus Accession Number(s): [id number] cc: FARIDEH GAR ; Mee Pringle D.O. [place] [address] Patient Name: CARMELITA CASON MRN: [id number] date: 1990 Sex: F Assigned Patient Location: Current Patient Location: Accession/Order Number: [id number] Exam Date: 01/22/2025 14:49 Report Date: 01/22/2025 [...] Sorto Jr., D.O.01/22/2025 2:50 PM Dictation Location: [facility] Electronically authenticated by: [id number] Y Date: 01/22/2025 14:50 Dictated By: Serafin Sorto M.D. Signed By: 01/22/25 1453 DD/ 49 TD/TT: Blowing Weasand: [place] [address] Ultrasound Report Signed Patient: JUNAID CASON SA MR#: [id number] : 1990 Acct:[id number] Age/Sex: 34 / F ADM Date: 01/22/25 Loc: US Attending Dr: Mee Pringle D.O. Ordering Physician: Mee Pringle D.O. Date of Service: 01/22/25 Procedure(s): US OB <= 14 weeks fetus Accession Number(s): [id number] cc: FARIDEH GAR ; Mee Pringle D.O. [place] [address] Patient Name: CARMELITA CASON MRN: [id number] date: 1990 Sex: F Assigned Patient Location: US Current Patient Location: US Accession/Order Number: [id number] Exam Date: 01/22/2025 14:49 Report Date: 01/22/2025 [...] by CRL GIAN 07/28/2025. Impression dictated by: Katy Bonilla Jr.OBobby01/22/2025 2:50 PM Dictation Location: [facility] Electronically authenticated by: [id number] Y Date: 01/22/2025 14:50 Dictated By: Serafin Sorto M.D. Signed By: 01/22/25 1453 DD/ 1450 TD/TT: Blowing Weasand: CT sinus wo con Reviewed date:09/20/2024 11:50:08 AM Interpretation: Performing Lab: Notes/Report: Source Facility: [place] [address] CT Scan Report Signed Patient: CARMELITA CASON MR#: [id number] : 1990 Acct:[id number] Age/Sex: 34 / F ADM Date: 09/20/24 Loc: ER Attending Dr: Ordering Physician: Kimmie Santacruz D.O. Date of Service: 09/20/24 Procedure(s): CT sinus wo con Accession Number(s): [id number] cc: FARIDEH GAR [place] [address] Patient Name: CARMELITA CASON MRN: [id number] date: 1990 Sex: F Assigned Patient Location: ER Current Patient Location: Accession/Order Number: [id number] Exam Date: 09/20/2024 07:30 Report Date: 09/20/2024 [...] M.D. Signed By: 09/20/24830 DD/ 7 TD/TT: Blowing Weasand: [place] [address] CT Scan Report Signed Patient: JUNAID CASON SA MR#: [id number] : 1990 Acct:[id number] Age/Sex: 34 / F ADM Date: 09/20/24 Loc: ER Attending Dr: Ordering Physician: Kimmie Santacruz D.O. Date of Service: 09/20/24 Procedure(s): CT sin us wo con Accession Number(s): [id number] cc: FARIDEH GAR [place] [address] Patient Name: CARMELITA CASON MRN: [id number] date: 1990 Sex: F Assigned Patient Location: ER Current Patient Location: Accession/Order Number: [id number] Exam Date: 07:30 Report Date: 09/20/2024 08:28 [...] M.D. Signed By: 09/20/24830 DD/ 7 TD/TT: Blowing Weasand: SARS-CoV-2 Ag* Reviewed date:09/20/2024 11:53:12 AM Interpretation: Performing Lab: Notes/Report: [facility] , SARS-CoV-2 Ag NEGATIVE NEGATIVE This test [...] Performing Lab: see note ML - [facility] LB INFLUENZA A AND B AG Reviewed date:09/20/2024 11:53:12 AM Interpretation: Performing Lab: Notes/Report: [facility] , Influenza Virus A Antigen Negative Negative [...] Performing Lab: see note ML - [facility] LB SARS-CoV-2 Ag* Reviewed date:07/10/2024 01:40:12 PM Interpretation: Performing Lab: Notes/Report: [facility] , SARS-CoV-2 Ag POSITIVE NEGATIVE This test [...] Performing Lab: see note ML - [facility] LB COVID-19, Flu A+B IH Reviewed date:06/21/2025 08:28:54 AM Interpretation: Performing Lab: Notes/Report: COVID neg FLU A neg FLU B neg Control present URINE MICROSCOPIC ONLY Reviewed date:06/15/2025 09:30:17 AM Interpretation: Performing Lab: Notes/Report: [facility] , WBC Urine 0-2 NONE SEEN #/HPF RBC Urine NONE SEEN 0-2 #/HPF Bacteria Urine TRACE NONE SEEN #/HPF Mucus Urine NONE SEEN NONE SEEN Squamous Epithelial Cell Urine FEW NONE/RARE #/LPF Crystals Seen? None Seen None Seen #/HPF Cast Seen? NONE SEEN NONE SEEN #/LPF Urine Culture Indicated NO Performing Lab: see note ML - [facility] LB UA (CLEAN or CATCH) HISTOLOGY TEACHER or M ICRO IF IND. Reviewed date:06/15/2025 09:30:17 AM Interpretation: Performing Lab: Notes/Report: [facility] , Color Urine LT. YELLOW YELLOW Clarity Urine CLEAR CLEAR Specific [place] Urine <=1.005 1.005-1.025 pH Urine 7.0 5.0-9.0 Protein Urine NEGATIVE NEG/TRACE mg/dL Glucose Urine UA NEGATIVE NEGATIVE mg/dL Bilirubin Urine NEGATIVE NEGATIVE Ketones Urine NEGATIVE NEGATIVE mg/dL Blood Urine NEGATIVE NEGATIVE Nitrite Urine NEGATIVE NEGATIVE Urobilinogen Urine 0.2 0.2-1.0 EU/dL Leukocyte Esterase Urine TRACE NEGATIVE Urine Microscopic Indicated YES Performing Lab: see note ML - [facility] US OB BPP w non-stress Reviewed date:06/11/2025 12:59:27 PM Interpretation: Performing Lab: Notes/Report: Source Facility: [place] [address] Ultrasound Report Signed Patient: CARMELITA CASON MR#: [id number] : 1990 Acct:[id number] Age/Sex: 34 / F ADM Date: 06/11/25 Loc: US Attending Dr: Mee Pringle D.O. Ordering Physician: Mee Pringle D.O. Date of Service: 06/11/25 Procedure(s): US OB BPP w non-stress Accession Number(s): [id number] cc: FARIDEH GAR ; Mee Pringle D.O. [place] [address] Patient Name: CARMELITA CASON MRN: [id number] date: 1990 Sex: F Assigned Patient Location: [facility] Current Patient Location: Accession/Order Number: [id number] Exam Date: 06/11/2025 11:44 Report Date: 06/11/2025 11:45 At the request of: MEE PRINGLE DO Procedure: US OB BPP w non-stress Biophysical profile. Reason for exam: History of placental abruption COMPARISON: 06/05/2025 TECHNIQUE: Transabdominal imaging of the gravid uterus was obtained. FINDINGS: The cnc wood lathe operator reports a BPP of 8 out of 8. ELIZABETH is normal at 21.3 cm. heart rate 142 bpm. US/US OB BPP w non-stress IMPRESSION: BPP 8 out of 8. Impression dictated by: Katy Bonilla Jr.OBobby 06/11/2025 11:45 AM Dictation Location: [facility] Electronically authenticated by: [id number] Y Date: 06/11/2025 11:45 Dictated By: Serafin Sorto M.D. Signed By: 06/11/25 1148 DD/ 1145 TD/TT: Blowing Weasand: [place] [address] Ultrasound Report Signed Patient: JUNAID CASON SA MR#: [id number] : 1990 Acct:[id number] Age/Sex: 34 / F ADM Date: 06/11/25 Loc: US Attending Dr: Mee Pringle D.O. Ordering Physician: Mee Pringle D.O. Date of Service: 06/11/25 Procedure(s): US OB BPP w non-stress Accession Number(s): [id number] cc: FARIDEH GAR ; Mee Pringle D.O. [place] [address] Patient Name: CARMELITA CASON MRN: [id number] date: 1990 Sex: F Assigned Patient Location: [facility] Current Patient Location: Accession/Order Number: [id number] Exam Date: 06/11/2025 11:44 Report Date: 06/11/2025 11:45 At the request of: MEE PRINGLE DO Procedure: US OB fet al BPP w non-stress Biophysical profile. Reason for exam: History of placental abruption COMPARISON: 06/05/2025 TECHNIQUE: Transabdominal imaging of the gravid uterus was obtained. FINDINGS: The cnc wood lathe operator reports a BPP of 8 out of 8. ELIZABETH is normal at 21.3 cm. heart rate 142 bpm. US/US OB BPP w non-stress IMPRESSION: BPP 8 ou t of 8. Impression dictated by: Serafin Sorto Jr., D.O. 06/11/2025 11:45 AM Dictation Location: [employer]-22 Electronically authenticated by: [id number] Y Date: 06/11/2025 11:45 Dictated By: Serafin Sorto M.D. Signed By: 06/11/25 1148 DD/ 1145 TD/TT: Blowing Weasand: Reason For Referral Reason muscle spasm back, h x bulging disc L4-5 Diagnosis 1 Muscle spasm of back (M62.830) Referral Organization [facility] Referring Provider First Name Farideh Referring [...] Status W/U Status Risk Notes Problem Anxiety (69882364) Anxiety (F41.9) Active confirmed Problem Bipolar disorder (56676483) Bipolar disorder (F31.9) Active confirmed Problem Smoking (73296843) Smoking (F17.200) Active confirmed Problem Major depressive disorder, single episode (92663446) Major depressive disorder, single episode (F32.9) Active confirmed Problem Loss of taste (68836428) Loss of taste (R43.2) Active confirmed Problem Attention deficit hyperactivity disorder (671350920) ADHD (F90.9) Active confirmed Vital Signs Temperature 98.4 degrees Fahrenheit 01/08/2025 Blood pressure diastolic 64 mm Hg 03/02/2025 Height 65 in 03/02/2025 Blood pressure systolic 102 mm Hg 03/02/2025 Weight 148.2 lbs 03/02/2025 BMI 24.66 kg/m2 03/02/2025 Procedures Procedure Date Ordered Date Performed Result Body Sit e CARDIO Stress Test - Treadmill Exercise 10/20/2024 N/A Encounters Encounter Location Date Provider Diagnosis [facility] [address] [place] [address] 07/10/2024 Far[facility] Gar [facility] [address] [place] [address] 09/19/2024 Far[facility] Gar Back pain M54.9 [facility] [address] [place] [address] 02/15/2025 Farideh Gar [facility] [address] [place] [facility] [address] 02/21/2025 Farideh Gar Anxiety F41.9 [facility] [address] [place] [address] 04/04/2025 Far[facility]h Gar Anxiety F41.9 [facility] [address] [place] [facility] [facility] [address] 05/30/2025 Farideh Gar [facility] [address] [place] [address] 07/10/2024 Farideh Gar Acute cough R05.1 [facility] [address] [place] [facility] [place] [address] 10/20/2024 Farideh Gar Chest pressure R07.8 9 ; Anxiety F41.9 and Smoking F17.200 [facility] [address] [place] [address] 11/17/2024 Farideh Gar Muscle spasm of back M62.830 [facility] [address] [place] [address] 01/08/2025 Farideh Gar Loss of taste R43.2 ; URI (upper respiratory infection) J06.9 and Body aches R52 [facility] [address] [place] [address] 03/02/2025 Farideh Gar [facility] physical exam Z02.0 Assessments Encounter Date Diagnosis (ICD Code) Assessment Notes Treatment Notes Treatment Clinical Notes Section Notes 03/02/2025 School physical exam (ICD-10 - Z02.0) ok for clinicals form filled out 07/10/2024 Acute cough (ICD-10 - R05.1) 09/19/2024 [...] CARDIO Stress Test - Treadmill Exercise 10/20/2024 C. DIFF PCR 03/22/2024 Covid-19 PCR ([facility]) 07/10/2024 STOOL CULTURE 03/22/2024 MRI LSPINE WO CON 05/10/2023 XR lumbar spine 2-3V 11/17/2024 Insurance Providers Payer Name Payer Address Payer Phone Subscriber Number Group Number Insured Name Patient Relationship to Insured Coverage Start Date Coverage End Date [employer] [place] [employer] [address] [place] [address] [phone] [id number] Carmelita Cason Self - patient is the insured Medical (General) History Surgical History Surgery Date(Month/Year) D&C
--- OUTSIDE RECORDS SUMMARY | 2025-06-27 14:45 | XMS_ITS | Encounter Summary ---
Author Organization [facility] Address [id number] [address] [place] [address] Care Team Providers Care High Density Finishing Operator Name Role Phone No Pcp, No Pcp Primary Care Provider Unavailabl e Encounter Details Date Type Department Care Team (Late Contact Info) Description 05/30/2025 Orders Only Maternal- Medicine at [facility] [address] [place] [phone] Ref Prov, [place] [address] Social History Tobacco Use Types Packs/Day Years [...] Care Team (Late Contact Info) Description 07/05/2025 11:00 AM EDT Appointment [facility] [place] [address] [facility] [address] [place] [address] 07/05/2025 2:30 PM EDT Telemedicine Maternal- Medicine at [facility] [address] [facility] [place] [phone] Tasia Dowd MD [address] [facility] 1[address] [place] [address] documented as of this encounter Procedures Procedure [...] on filedocumented in this encounter Care Teams High Density Finishing Operator Relationship Specialty Start Date End Date No Pcp, [place] [address] PCP - General Family Medicine 04/27/20 documented as of this encounter
--- OUTSIDE RECORDS SUMMARY | 2025-06-27 17:15 | XMS_ITS | CCD ---
Author Organization [facility] Care Team Providers Care Manager Clinical Services Name Role Phone Sidney Nava Unavailable Unavailable Unavailable Primary Care Provider Unavailabl e Unavailable Primary Care Provider Unavailabl e CATRINA, MALINI Referring Unavailable CATRINA, MALINI Referring Unavailable CATRINA, MALINI Referring Unavailable CATRINA, MALINI Referring Unavailable Lacho BRINK, Helder Ross Attending Unavailable PETROS, DR COKO Admitting Unavailable REQUEST, NONE LISTED Primary Care [...] PRINGLE Attending Unavailable MEE PRINGLE Attending Unavailable YARYMEE TRISTAN Attending Unavailable Allergies Allergy Classification Reported Allergen(s) Allergy Type Date of Onset Reaction(s) Facility (2 sources) Penicillins; Translations: [PENICILLINS] Drug allergy (disorder) 3 [facility] Repository (20 sources) Penicillin G Drug Allergy 5 [facility] Healthcare Work Phone: (3 sources) Penicillins Propensity to adverse reactions to drug 0 [facility] ([facility]) Penicillins Propensity to adverse reactions 0 [facility] Healthcare Medications Current Medications Medication [...] Take 60 mg by mouth daily. Active hydrOXYzine pamoate 100 mg oral capsule (3 sources) Antihistamine take 1 capsule by mouth once daily hydrOXYzine (VISTARIL) 100 mg capsule Take 100 mg by mouth daily. Active naltrexone microspheres (VIVITROL IM) (3 sources) naltrexone microspheres (VIVITROL IM) Inject into the appropriate muscle. Active no115/iron/folic acid ( 19 ORAL) (1 source) take 1 tablet by mouth at bedtime no115/iron/folic acid ( 19 ORAL) Take 1 tablet by mouth before bedtime. Active QUEtiapine 50 mg oral tablet (20 sources) Atypical Antipsychotic Start: 03-23-20 25 take 1 tablet by mouth at bedtime QUEtiapine (SEROquel) 50 MG tablet Take 50 mg by mouth at bedtime 03/23/2025 Active QUEtiapine (SERO quel) 200 mg tablet Take 50 mg by mouth nightly. Active take 1 tablet by mouth once pilar y QUEtiapine (SEROquel) 200 mg tablet Take 200 mg by mouth nightly. Active Completed/Discontinued Medications Medication Drug Class(es) Dates Sig (Normalized) Sig (Original) gabapentin 100 mg oral capsule (20 sources) Anti-epileptic Agent End: 06-20-2025 gabapentin (Neurontin) 100 MG capsule as directed for 9 days 06/20/2025 Discontinued magnesium oxide 400 mg oral tablet (20 sources) Start: 04-13-2025 End: 04-13-2026 take 1 tablet by mouth once daily magnesium oxide (Mag-Ox) 400 MG tablet Indications: headache in second trimester (HHS-HCC) Take 1 tablet (400 mg) by mouth Daily 30 tablet 11 04/13/2025 06/20/2025 Discontinued Problems Active Problems Problem Classification Problem Date Documented Date Episodic/Chronic Anxiety disorders (1 source) Anxiety disorder, unspecified; Translations: [ANXIETY DISORDER UNSPECIFIED] Onset: 07-31-2022 Chronic Contraceptive and procreative management (4 sources) Sterilization requested; Translations: [Encounter for sterilization] 05-02-2025 Episodic Hepatitis (5 sources) Viral hepatitis C; Translations: [Unspecified viral [...] 12-10-2022 Episodic Other and delivery including normal (14 sources) ; Translations: [Encounter for supervision of [...] of ] 05-02-2025 Episodic Residual codes; unclassified (9 sources) History of placental abruption; Translations: [Personal [...] [32 weeks gestation of ] 06-07-2025 Episodic Residual codes; unclassified (2 sources) Gestation period, 34 weeks; Translations: [34 weeks gestation of ] 06-20-2025 Episodic Residual codes; unclassified (2 sources) Gestation period, 35 weeks; Translations: [35 weeks gestation of ] 06-27-2025 Episodic Substance-related disorders (10 sources) Nicotine dependence, cigarettes, uncomplicated; Translations: [Opioid [...] 07-31-2022 Episodic Other aftercare (5 sources) Other assisted (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 therapy; Translations: [OTH [facility] CURRENT DRUG THERAPY] Onset: 07-31-2022 Episodic Other [...] Facil ity Urinalysis macro (dipstick) panel (U)on 06-27-2025 Bilirubin, UA Negative Negative - 4(70) +++ [...] 500+++ Camille/mcL [facility] Comment on above: Trace Nitrite, UA Negative Negative - Positive [facility] pH, UA 6.5 5 - 9 [facility] Protein, UA Negative Negative - 1999(20) ++++ mg/dL [facility] Spec Grav, UA 1005 1 - 1.03 [facility] Urobilinogen, UA 0.2 0.2 - 12 mg/dL [facility] Urinalysis macro (dipstick) panel (U)on 06-20-2025 Bilirubin, UA Negative Negative - 4(70) +++ [...] Institute pH, UA 6.5 5 - 9 [facility] Protein, UA Negative Negative - 1999(20) ++++ mg/dL [facility] Spec Grav, UA 1.01 1 - 1.03 [facility] Urobilinogen, UA 1.0 0.2 - 12 mg/dL [facility] (CLEAN/CATCH) RADIO SALES ACCOUNT EXECUTIVE/DEMETRA RO IF IND.on 06-14-[address] [facility] BLOOD URINE Negative NEGATIVE [facility] Clarity (U) CLEAR CLEAR [facility] Color (U) LT. YELLOW YELLOW [facility] GLUCOSE URINE UA Negative NEGATIVE mg/dL [facility] Interpretation and review of laboratory results Abnormal [facility] Ketones Ql (U) Negative NEGATIVE mg/dL [facility] Leukocyte esterase Test strip Ql (U) TRACE Abnormal NEGATIVE [facility] NITRITE URINE Negative NEGATIVE [facility] pH (U) 7.0 [pH] 5.0 - 9.0 [facility] PROTEIN URINE Negative NEG/TRACE mg/dL [facility] SPECIFIC GRAVITY URINE <=1.005 Abnormal 1.005 - 1.025 [facility] URINE MICROSCOPIC INDICATED YES [facility] UROBILINOGEN URINE 0.2 EU/dL 0.2 - 1.0 EU/dL [facility] US OB BPP W NON-STRESS on 06-11-2025 [place] [address] Ultrasound Report Signed Patient: CARMELITA CASON MR#: [id number] : 1990 Acct:[id number] Age/Sex: 34 / F ADM Date: 06/11/25 Loc: US Attending Dr: Mee Pringle D.O. Ordering Physician: Mee Pringle D.O. Date of Service: 06/11/25 Procedure(s): US OB BPP w non-stress Accession Number(s): [id number] cc: ROMEO GAR ; Mee Pringle D.O. [address] [address] Patient Name: CARMELITA CASON MRN: [facility]:[id number] date: 1990 Sex: F Assigned Patient Location: [facility] Current Patient Location: Accession/Order Number: [id number] Exam Date: 06/11/2025 11:44 Report Date: 06/11/2025 11:45 At the request of: MEE PRINGLE DO Procedure: US OB BPP w non-stress Biophysical profile. Reason for exam: History of placental abruption COMPARISON: 06/05/2025 TECHNIQUE: Transabdominal imaging of the gravid uterus was obtained. FINDINGS: The fermentation manager reports a BPP of 8 out of 8. ELIZABETH is normal at 21.3 cm. heart rate 142 bpm. US/US OB BPP w non-stress IMPRESSION: BPP 8 out of 8. Impression dictated by: Serafin Sorto Jr., D.O. 06/11/2025 11:45 AM Dictation Location: [place] [address] Electronically authenticated by: [id number] Y Date: 06/11/2025 11:45 Dictated By: Serafin Sorto M.D. Signed By: 06/11/25 1148 DD/ 1145 TD/TT: Political Science Research Assistant: [facility] Radiology, Radiologist, MD - 06/11/2025 [place] [address] Ultrasound Report Signed Patient: CARMELITA CASON MR#: [id number] : 1990 Acct:[id number] Age/Sex: 34 / F ADM Date: 06/11/25 Loc: US Attending Dr: Mee Pringle D.O. Ordering Physician: Mee Pringle D.O. Date of Service: 06/11/25 Procedure(s): US OB BPP w non-stress Accession Number(s): [id number] cc: ROMEO GAR ; Mee Pringle D.O. The [address] [address] Patient Name: CARMELITA CASON MRN: [facility]:[id number] date: 1990 Sex: F Assigned Patient Location: [facility] Current Patient Location: Accession/Order Number: [id number] Exam Date: 06/11/2025 11:44 Report Date: 06/11/2025 11:45 At the request of: MEE PRINGLE DO Procedure: US OB BPP w non-stress Biophysical profile. Reason for exam: History of placental abruption COMPARISON: 06/05/2025 TECHNIQUE: Transabdominal imaging of the gravid uterus was obtained. FINDINGS: The fermentation manager reports a BPP of 8 out of 8. ELIZABETH is normal at 21.3 cm. heart rate 142 bpm. US/US OB BPP w non-stress IMPRESSION: BPP 8 out of 8. Impression dictated by: Serafin Sorto Jr., D.O. 06/11/2025 11:45 AM Dictation Location: [facility] Electronically authenticated by: [id number] Y Date: 06/11/2025 11:45 Dictated By: Serafin Sorto M.D. Signed By: 06/11/25 1148 DD/ 1145 TD/TT: Political Science Research Assistant: [facility] Radiology Study observation (narrative) [facility] US OB BPP W NON-STRESS Ordered By: Radiologist Radiology on 06-11-2025 [facility] Work Phone: MLR HEMOGLOBIN A1Con 025 Glucose [Mass/Vol] 85 mg/dL [facility] HbA1c (Bld) [Mass fraction] 4.6 % 4.5 - 6.2 % [facility] Comment on above: ADA RECOMMENDED LIMI T 4.0 - 6.0 ADA THERAPEUTIC TARGET < 7.0 ACTION SUGGESTED > 7.[address] [facility] Urinalysis macro (dipstick) panel (U)on 06-07-2025 Bilirubin, [...] [facility] Leukocytes, UA 3+ Negative - 500+++ Camille/mcL [facility] Nitrite, UA Negative Negative - Positive [facility] pH, UA 7.5 5 - 9 [facility] Protein, UA Negative Negative - 2000(20) ++++ mg/dL [facility] Spec Grav, UA 1.01 1 - 1.03 [facility] Urobilinogen, UA 1.0 0.2 - 12 mg/dL [facility] US OB BPP W NON-STRESS on 06-05-2025 [place] [address] Ultrasound Report Signed Patient: CARMELITA CASON MR#: [id number] : 1990 Acct:[id number] Age/Sex: 34 / F ADM Date: 06/05/25 Loc: US Attending Dr: Mee Pringle D.O. Ordering Physician: Mee Pringle D.O. Date of Service: 06/05/25 Procedure(s): US OB BPP w non-stress Accession Number(s): [id number] cc: ROMEO GAR ; Mee Pringle D.O. [place] [address] Patient Name: CARMELITA CASON MRN: [id number]:[id number] date: 1990 Sex: F Assigned Patient Location: US Current Patient Location: Accession/Order Number: [id number] Exam Date: 06/05/2025 11:53 Report Date: 06/05/2025 12:03 At the request of: MEE PRINGLE DO Procedure: US OB BPP w non-stress Biophysical profile. Reason for exam: History of opioid abuse COMPARISON: None TECHNIQUE: Transabdominal imaging of the gravid uterus was obtained. FINDINGS: The fermentation manager reports a BPP of 8 out of 8. ELIZABETH is normal at 21 cm. heart rate 135 bpm. US/US OB BPP w non-stress IMPRESSION: BPP 8 out of 8. Impression dictated by: Serafin Sorto Jr., D.O. 06/05/2025 12:03 PM Dictation Location: [facility] Electronically authenticated by: [id number] Y Date: 06/05/2025 12:03 Dictated By: Serafin Sorto M.D. Signed By: 06/05/25 1206 DD/ 02 TD/TT: Political Science Research Assistant: [facility] Radiology, Radiologist, - 06/05/2025 The [place] [id number] Ultrasound Report Signed Patient: CARMELITA CASON MR#: [id number] : 1990 Acct:[id number] Age/Sex: 34 / F ADM Date: 06/05/25 Loc: US Attending Dr: Mee Pringle D.O. Ordering Physician: Mee Pringle D.O. Date of Service: 06/05/25 Procedure(s): US OB BPP w non-stress Accession Number(s): [id number] cc: ROMEO GAR ; Mee Pringle D.O. The [place] [address] Patient Name: CARMELITA CASON MRN: [facility]:[id number] date: 1990 Sex: F Assigned Patient Location: US Current Patient Location: Accession/Order Number: [id number] Exam Date: 06/05/2025 11:53 Report Date: 06/05/2025 12:03 At the request of: MEE PRINGLE DO Procedure: US OB BPP w non-stress Biophysical profile. Reason for exam: History of opioid abuse COMPARISON: None TECHNIQUE: Transabdominal imaging of the gravid uterus was obtained. FINDINGS: The fermentation manager reports a BPP of 8 out of 8. ELIZABETH is normal at 21 cm. heart rate 135 bpm. US/US OB BPP w non-stress IMPRESSION: BPP 8 out of 8. Impression dictated by: Serafin Sorto Jr., D.O. 06/05/2025 12:03 PM Dictation Location: [facility] Electronically authenticated by: [id number] Y Date: 06/05/2025 12:03 Dictated By: Serafin Sorto M.D. Signed By: 06/05/251205 DD/ 02 TD/TT: Political Science Research Assistant: [facility] Radiology Study observation (narrative) [facility] US OB BPP W NON-STRESS Ordered By: Radiologist Radiology on 06-05-2025 [facility] Work Phone: CBC without diffOrdered By: Paradise Raya on 05-21-2025 Hematocrit (Bld) [Volume fraction] 30.6 % [facility] Hemoglobin (Bld) [Mass/Vol] 10.8 g/dL [facility] Platelets (Bld) [#/Vol] 176 10*3/uL [facility] Rbc Mcv (Fl) By Automated Count 79.3 [facility] Drug Screen, Urineon 025 Amphetamine/Methamphet amine Negative [facility] Barbiturates Negative [facility] Benzodiazepines Negative [facility] Cocaine Metabolite Negative [facility] Methadone Negative [facility] Opiates Negative [facility] Oxycodone Negative [facility] Phencyclidine Negative [facility] Thc Marijuana, Urine Negative [facility] HBV surface Ag IA Qlon 05-21 Hepatitis B Surface Antigen Negative [facility] HCV Ab IA Qlon 05-21-2025 HCV Ab Ql (S) Reactive [facility] HIV 1+2 Ab+HIV1 p24 Ag IA Ql on 05-21-2025 HIV 1&2 AB/AG Non-Reactive [facility] Hemoglobin A1con 05-21-2025 HbA1c (Bld) [Mass fraction] 4.7 % 4.0 - 6.0 % [facility] No Panel Informationon 05-21 [facility] Rubella IGG immune statuson 05-21-2025 Rubella immune IgG [facility] T. pallidum IgG+IgM IA Ql (S )on 05-21-2025 Syphilis Non-Reactive [facility] TBH DRUG SCREEN RAPID (URINE )on 05-21-2025 AMPHETAMINE SCREEN URINE Negative NEGATIVE [facility] BARBITURATES SCREEN URINE Negative NEGATIVE [facility] BENZODIAZEPINES SCREEN URINE Negative NEGATIVE [facility] BUPRENORPHINE SCREEN URINE Positive Abnormal NEGATIVE [facility] Comment on above: DRUG CLASS TEST SYST [...] Institute METHADONE SCREEN URINE Negative NEGATIVE NO [facility] METHAMPHETAMINES SCREEN URINE Negative NEGATIVE [facility] OPIATE SCREEN URINE Negative NEGATIVE [facility] OXYCODONE SCREEN URINE Negative NEGATIVE NO [facility] PHENCYCLIDINE SCREEN URINE Negative NEGATIVE [facility] TRICYCLIC ANTIDEPRESSANT URINE Negative NEGATIVE [facility] Type and screenon 05-21-2025 Abo/Rh(D) Positive [facility] Urinalysis macro (dipstick) panel (U)on 05-16-2025 Bilirubin, [...] Urobilinogen, UA 1.0 0.2 - 12 mg/dL [facility] Urinalysis macro (dipstick) panel (U)on 04-18-2025 Bilirubin, [...] Urobilinogen, UA 0.2 0.2 - 12 mg/dL [facility] No Panel InformationOrdered By: Radiologist Radiology on 04-09-2025 [facility] Work Phone: No Panel Informationon 04-09 Radiology Study observation (narrative) [facility] US OB ANATOMYon 04-09-[address] [address] Ultrasound Report Signed Patient: CARMELITA CASON MR#: [id number] : 1990 Acct:[id number] Age/Sex: 34 / F ADM Date: 04/09/25 Loc: US Attending Dr: Paradise Olvera Ordering Physician: Paradise Olvera Date of Service: 04/09/25 Procedure(s): US OB anatomy Accession Number(s): [id number] cc: Paradise Olvera; ROMEO GAR [address] [address] Patient Name: CARMELITA CASON MRN: [id number]:[id number] date: 1990 Sex: F Assigned Patient Location: US Current Patient Location: US Accession/Order Number: [id number] Exam Date: 04/09/2025 12:20 Report Date: 04/09/2025 [...] all 4 extremities were surveyed by the fermentation manager. No abnormalities were detected. The stomach, bladder, [...] Zelaya M.D. 04/09/2025 1:01 PM Dictation Location: [place] [address] Electronically authenticated by: [id number] Y Date: 04/09/2025 13:01 Dictated By: Raine Zelaya M.D. Signed By: 04/09/25 1304 DD/ 1301 TD/TT: Political Science Research Assistant: [facility] Radiology, Radiologist, MD - 04/09/2025 [place] [address] Ultrasound Report Signed Patient: CARMELITA CASON MR#: [id number] : 1990 Acct:[id number] Age/Sex: 34 / F ADM Date: 04/09/25 Loc: US Attending Dr: Paradise Olvera Ordering Physician: Paradise Olvera Date of Service: 04/09/25 Procedure(s): US OB anatomy Accession Number(s): [id number] cc: Paradise Olvera; ROMEO GAR The [place] [address] Patient Name: CARMELITA CASON MRN: [id number]:[id number] date: 1990 Sex: F Assigned Patient Location: Current Patient Location: US Accession/Order Number: [id number] Exam Date: 04/09/2025 12:20 Report Date: 04/09/2025 [...] all 4 extremities were surveyed by the fermentation manager. No abnormalities were detected. The stomach, bladder, [...] Zelaya M.D. 04/09/2025 1:01 PM Dictation Location: [place] [address] Electronically authenticated by: [id number] Y Date: 04/09/2025 13:01 Dictated By: Raine Zelaya M.D. Signed By: 04/09/25 1304 DD/ 1301 TD/TT: Political Science Research Assistant: [facility] OB CERVICAL LENGTHon [address] [address] Ultrasound Report Signed Patient: CARMELITA CASON MR#: [id number] : 1990 Acct:[id number] Age/Sex: 34 / F ADM Date: 04/09/25 Loc: US Attending Dr: Paradise Olvera Ordering Physician: Paradise Olvera Date of Service: 04/09/25 Procedure(s): US OB cervical length Accession Number(s): [id number] cc: Paradise Olvera; ROMEO GAR [address] [address] Patient Name: CARMELITA CASON MRN: [id number] date: 1990 Sex: F Assigned Patient Location: US Current Patient Location: US Accession/Order Number: [id number] Exam Date: 04/09/2025 12:20 Report Date: 04/09/2025 [...] all 4 extremities were surveyed by the fermentation manager. No abnormalities were detected. The stomach, bladder, [...] Zelaya M.D. 04/09/2025 1:01 PM Dictation Location: [place] [address] Electronically authenticated by: [id number] Y Date: 04/09/2025 13:01 Dictated By: Raine Zelaya M.D. Signed By: 04/09/25 1304 DD/ 1301 TD/TT: Political Science Research Assistant: [facility] Radiology, Radiologist, MD - 04/09/2025 [place] [address] Ultrasound Report Signed Patient: CARMELITA CASON MR#: [id number] : 1990 Acct:[id number] Age/Sex: 34 / F ADM Date: 04/09/25 Loc: US Attending Dr: Paradise Olvera Ordering Physician: Paradise Olvera Date of Service: 04/09/25 Procedure(s): US OB cervical length Accession Number(s): [id number] cc: Paradise Olvera; ROMEO GAR The [place] [id number] Patient Name: CARMELITA CASON MRN: [facility]:[id number] date: 1990 Sex: F Assigned Patient Location: Current Patient Location: US Accession/Order Number: [id number] Exam Date: 04/09/2025 12:20 Report Date: 04/09/2025 [...] all 4 extremities were surveyed by the fermentation manager. No abnormalities were detected. The stomach, bladder, [...] Zelaya M.D. 04/09/2025 1:01 PM Dictation Location: [place] [address] Electronically authenticated by: [id number] Y Date: 04/09/2025 13:01 Dictated By: Raine Zelaya M.D. Signed By: 04/09/25 1304 DD/ 1301 TD/TT: Political Science Research Assistant: [facility] HCG ( test) Ql (U)O rdered By: Arabella Hill on 04-06-2025 Interpretation and review of laboratory results Abnormal [facility] Preg Test, Ur Positive Negative [facility] Urinalysis macro (dipstick) panel (U)on 04-06-2025 Bilirubin, [...] Urobilinogen, UA 1.0 0.2 - 12 mg/dL [facility] US OB L= [place] [address] Ultrasound Report Signed Patient: CARMELITA CASON MR#: [id number] : 1990 Acct:[id number] Age/Sex: 34 / F ADM Date: 01/22/25 Loc: US Attending Dr: Mee Pringle D.O. Ordering Physician: Mee Pringle D.O. Date of Service: 01/22/25 Procedure(s): US OB <= 14 weeks fetus Accession Number(s): [id number] cc: ROMEO GAR ; Mee Pringle D.O. [place] [address] Patient Name: CARMELITA CASON MRN: [id number] date: 1990 Sex: F Assigned Patient Location: Current Patient Location: US Accession/Order Number: [id number] Exam Date: 01/22/2025 14:49 Report Date: 01/22/2025 [...] Sorto Jr., D.O.01/22/2025 2:50 PM Dictation Location: [place] [address] Electronically authenticated by: [id number] Y Date: 01/22/2025 14:50 Dictated By: Serafin Sorto M.D. Signed By: 01/22/25 1453 DD/ 1450 TD/TT: Political Science Research Assistant: [facility] Radiology, Radiologist, MD - 01/22/2025 [place] [address] Ultrasound Report Signed Patient: CARMELITA CASON MR#: [id number] : 1990 Acct:[id number] Age/Sex: 34 / F ADM Date: 01/22/25 Loc: US Attending Dr: Mee Pringle D.O. Ordering Physician: Mee Pringle D.O. Date of Service: 01/22/25 Procedure(s): US OB <= 14 weeks fetus Accession Number(s): [id number] cc: ROMEO GAR ; Mee Pringle D.O. The [place] [address] Patient Name: CARMELITA CASON MRN: [facility]:[id number] date: 1990 Sex: F Assigned Patient Location: Current Patient Location: US Accession/Order Number: [id number] Exam Date: 01/22/2025 14:49 Report Date: 01/22/2025 [...] Sorto Jr., D.O.01/22/2025 2:50 PM Dictation Location: [facility] Electronically authenticated by: [id number] Y Date: 01/22/2025 14:50 Dictated By: Serafin Sorto M.D. Signed By: 01/22/25 1453 DD/ 49 TD/TT: Political Science Research Assistant: [facility] Radiology Study [...] Institute COMPLIANCE DRUG SCREENon PDF . Normal [facility] Comment on above: Performed By: #### D ALOAL #### [facility] [address] [place] [address] Dr. Roberto Parmar Summary FINAL Normal [facility] Comment on above: Result Comment: ===== TOXASSURE [...] is an expected metabolite of dextromethorphan, an vpfw-vax-wwrdefo or prescription cough suppressant. Levorphanol is a scheduled prescription medication. Dextrorphan cannot be distinguished from levorphanol by the method used for analysis. Guaifenesin PRESENT UNEXPECTED Guaifenesin may be administered as an lvzk-pnz-mzdepzd or prescription drug; it may also be [...] ===== Performed By: #### D SDOALC #### [facility] [address] [place] [address] Dr. Roberto Parmar URIC ACID RAND URINEon 09-03 Uric Acid, Urine 12.4 mg/dL Normal Not Estab. The [facility] Comment on above: Performed By: #### U RICSOURAV #### [facility] [address] [place] [address] Dr. Roberto Parmar DRUG SCREEN RAPID (URINE)on 09-02-2022 AMP Negative Normal NEGATIVE [facility] Comment on above: Performed By: #### D RUGRPD #### [facility] [address] [place] [address] Dr. Roberto Parmar BAR Negative Normal NEGATIVE The [facility] Comment on above: Performed By: #### D RUGRPD #### [facility] [address] [place] [address] Dr. Roberto Parmar BUP Positive Abnormal NEGATIVE [facility] Comment on above: Performed By: #### D RUGRPD #### [facility] [address] [place] [address] Dr. Roberto Parmar BZO Positive Abnormal NEGATIVE [facility] Comment on above: Performed By: #### D RUGRPD #### [facility] [address] [place] [address] Dr. Roberto Parmar BRITTANY Negative Normal NEGATIVE [facility] Comment on above: Performed By: #### D RUGRPD #### [facility] [address] [place] [address] Dr. Roberto Parmar CUT-OFFS SEE BELOW Normal [facility] Comment on above: Result Comment: AMP (Amphetamine): 500ng/mL, BAR (Barbituates): 200 ng/mL, BZO (Benzodiazepines): 150 ng/mL, BUP (Buprenorphine): 10 ng/mL, BRITTANY (Cocaine): 150 ng/mL, mAMP (Methamphetamine): 500 ng/mL, MTD (Methadone): 200 ng/mL, OPI (Opiates): 100 ng/mL, OXY (Oxycodone): 100 ng/mL, PCP (Phencyclidine): 25 ng/mL, PPX (Propoxyphene): 300 ng/mL, THC (Cannabinoids): 50 ng/mL, TCA (Trycyclic Antidepressants): 300 ng/mL Performed By: #### D RUGRPD #### [facility] [address] [place] [address] Dr. Roberto Parmar DRUG CUT HEADER DRUG CLASS TEST SYSTEM CUT-OFF CONCENTRATIONS ARE FOLLOWS: Normal [facility] Comment on above: Performed By: #### D RUGRPD #### [facility] [address] [place] [address] Dr. Roberto Parmar mAMP Negative Normal NEGATIVE [facility] Comment on above: Performed By: #### D RUGRPD #### [facility] [address] [place] [address] Dr. Roberto Parmar MTD Negative Normal NEGATIVE [facility] Comment on above: Performed By: #### D RUGRPD #### [facility] [address] [place] [address] Dr. Roberto Parmar OPI Negative Normal NEGATIVE [facility] Comment on above: Performed By: #### D RUGRPD #### [facility] [address] [place] [address] Dr. Roberto Parmar OXY Negative Normal NEGATIVE [facility] Comment on above: Performed By: #### D RUGRPD #### [facility] [address] [address] [address] Roberto Parmar PCP Negative Normal NEGATIVE [facility] Comment on above: Performed By: #### D RUGRPD #### [facility] [address] [address] [address] Roberto Parmar PPX Negative Normal NEGATIVE [facility] Comment on above: Performed By: #### D RUGRPD #### [facility] [address] [address] [address] Roberto Parmar TCA Negative Normal NEGATIVE [facility] Comment on above: Performed By: #### D RUGRPD #### [facility] [address] [address] [address] Roberto Parmar THC Negative Normal NEGATIVE [facility] Comment on above: Performed By: #### D RUGRPD #### [facility] [address] [address] [address] Roberto Parmar US PELVIS AND TRANSVAGon [...] by: MAYUR ALLEN Date: 2022-07-13 07:21 Normal [facility] PAP ACOG PANEL 2: 21 to 29on 06-18-2022 . . Normal [facility] Comment on above: Performed By: #### [id number] #### [facility] [address] [place] [address] Dr. Roberto Parmar Age Gdln ACOG Testing 21-29 [facility] Comment on above: Performed By: #### [id number] #### [facility] [address] [place] [address] Dr. Roberto Parmar DIAGNOSIS: Comment [facility] Comment on above: Result Comment: NEGA TIVE FOR INTRAEPITHELIAL LESION OR MALIGNANCY. Performed By: #### [id number] #### [facility] [address] [place] [address] Dr. Roberto Parmar Methodology: Comment [facility] Comment on above: Result Comment: This liquid based ThinPrep(R) pap test was screened with the use of an image guided system. Performed By: #### [id number] #### [facility] [address] [place] [address] Dr. Roberto Parmar Note: Comment [facility] Comment on above: Result Comment: The Pap smear is a screening test designed to aid in the detection of premalignant and malignant conditions of the uterine cervix. It is not a diagnostic procedure and should not be used as the sole means of detecting cervical cancer. Both false-positive and false-negative reports do occur. . Performed By: #### [id number] #### [facility] [address] [place] [address] Dr. Roberto Parmar Performed by: Comment Normal [facility] Comment on above: Result Comment: Kishore De Dios Speech Pathologist Assistant (ASCP) Performed By: #### 4 [id number] #### [facility] [address] [place] [address] Dr. Roberto Parmar Reflex Criteria: Comment [facility] Comment on above: Result Comment: The HPV DNA reflex criteria were not met with this specimen result therefore, no HPV testing was performed. . Performed By: #### [id number] #### [facility] [address] [place], [place] [address] Dr. Roberto Parmar Specimen adequacy: Comment Normal [facility] Comment on above: Result Comment: Sati sfactory for evaluation. Endocervical and/or squamous metaplastic cells (endocervical component) are present. Performed By: #### [id number] #### [facility] [address] [address] [address] Roberto Parmar CBCon 12-06-2020 Erythrocyte distribution width (RBC) [Ratio] 13.6 % Normal 11.8-14.4 [facility] Comment on above: Performed By: #### P HEP, HIVCMB #### [address] [address] Harbor [employer]: Alvino Davila MD #### CP, CBC, HCG #### [facility] [address] [place] [address] [place] [id number] Harbor Master: Luis A Peng MD Hematocrit (Bld) [Volume fraction] 44.1 % Normal 36.3-47.1 [facility] Comment on above: Performed By: #### P HEP, HIVCMB #### [address] [id number] [employer]: Alvino Davila MD #### CP, CBC, HCG #### [address] [place] [id number] Harbor Master: Luis A Peng MD Hemoglobin (Bld) [Mass/Vol] 14.1 g/dL Normal 11.9-15.1 [facility] Comment on above: Performed By: #### P HEP, HIVCMB #### [address] [id number] [employer]: Alvino Davila MD #### CP, CBC, HCG #### [facility] [address] [place] [address] [place] [id number] [employer]: Luis A Peng MD MCH (RBC) [Entitic mass] 25.4 pg Normal 25.2-33.5 [facility] Comment on above: Performed By: #### P HEP, HIVCMB #### [address] [id number] [employer]: Alvino Davila MD #### CP, CBC, HCG #### [address] [place] [id number] [employer]: Luis A Peng MD MCHC (RBC) [Mass/Vol] 32.0 g/dL Normal 28.4-34.8 [facility] Comment on above: Performed By: #### P HEP, HIVCMB #### [address] [address] [employer]: Alvino Davila MD #### CP, CBC, HCG #### [address] [place] [phone] [employer]: Luis A Peng MD MCV (RBC) [Entitic vol] 79.5 fL Low 82.6-102.9 [facility] Comment on above: Performed By: #### P HEP, HIVCMB #### [address] [address] [employer]: Alvino Davila MD #### CP, CBC, HCG #### [address] [place] [phone] [employer]: Luis A Peng MD NRBC Automated 0.0 per 100 WBC Normal 0.0 [facility] Comment on above: Performed By: #### P HEP, HIVCMB #### [place] [address] [employer] Master: Alvino Davila MD #### CP, CBC, HCG #### [address] [place] [phone] [employer]: Luis A Peng MD Platelet mean volume (Bld) [Entitic vol] 11.8 fL Normal 8.1-13.5 [facility] Comment on above: Performed By: #### P HEP, HIVCMB #### [address] [place] [address] [employer] Master: Alvino Davila MD #### CP, CBC, HCG #### [address] [place] [phone] Harbor Master: Luis A Peng MD Platelets (Bld) [#/Vol] 238 10*3/uL Normal 138-453 [facility] Comment on above: Performed By: #### P HEP, HIVCMB #### [address] [address] [employer]: Alvino Davila MD #### CP, CBC, HCG #### [address] [place] [phone] [employer] Master: Luis A Peng MD RBC (Bld) [#/Vol] 5.55 10*6/uL High 3.95-5.11 [facility] Comment on above: Performed By: #### P HEP, HIVCMB #### [address] [address] [employer]: Alvino Davila MD #### CP, CBC, HCG #### [address] [place] [phone] Harbor Master: Luis A Peng MD WBC (Bld) [#/Vol] 8.6 10*3/uL Normal 3.5-11.3 [facility] Comment on above: Performed By: #### P HEP, HIVCMB #### [address] [address] [employer]: Alvino Davila MD #### CP, CBC, HCG #### [address] [place] [address] Harbor Master: Luis A Peng MD Erythrocyte distribution width (RBC) [Ratio] 13.6 % 11.8 - 14.4 % [place] Hematocrit (Bld) [Volume fraction] 44.1 % 36.3 - 47.1 % [place] Hemoglobin (Bld) [Mass/Vol] 14.1 g/dL 11.9 - 15.1 g/dL [place] Interpretation and review of laboratory results Abnormal [place] MCH (RBC) [Entitic mass] 25.4 pg 25.2 - 33.5 pg [place] MCHC (RBC) [Mass/Vol] 32.0 g/dL 28.4 - 34.8 g/dL [place] MCV (RBC) [Entitic vol] 79.5 fL Low 82.6 - 102.9 fL [place] Platelet mean volume (Bld) [Entitic vol] 11.8 fL 8.1 - 13.5 fL [place] Platelets (Bld) [#/Vol] 238 10*3/uL [place] RBC (Bld) [#/Vol] 5.55 10*6/uL High 3.95 - 5.1 1 m/uL [place] WBC (Bld) [#/Vol] 8.6 10*3/uL [place] WBC (Bld) [#/Vol] 0.0 10*3/uL 0.0 per 100 WBC M [place], [place] Comp Metabolic Profon 2020 (cont.) Normal [facility] Comment on above: Result Comment: Aver age GFR for 20-29 years old: 116 mL/min/1.73sq m Chronic Kidney Disease: <60 mL/min/1.73sq m Kidney failure: <15 mL/min/1.73sq m eGFR calculated using average adult body mass. Additional eGFR calculator available at: http://www.[employer]/multiple_crcl_2011.htm Performed By: #### P HEP, HIVCMB #### [employer] [address] [place] [address] Harbor Master: Alvino Davila MD #### CP, CBC, HCG #### [facility] [address] [place] [address] Harbor Master: Luis A Peng MD Albumin [Mass/Vol] 4.6 g/dL Normal 3.5-5.2 [facility] Comment on above: Performed By: #### P HEP, HIVCMB #### [address] [address] [employer] Master: Alvino Davila MD #### CP, CBC, HCG #### [facility] [address] [place] [phone] Harbor Master: Luis A Peng MD Albumin/Globulin [Mass ratio] 1.6 {ratio} Normal 1.0-2.5 [facility] Comment on above: Performed By: #### P HEP, HIVCMB #### [address] [address] [employer] Master: Alvino Davila MD #### CP, CBC, HCG #### [facility] [address] [place] [address] [place] [address] Harbor Master: Luis A Peng MD Alkaline Phos 81 U/L Normal 35-104 [facility] Comment on above: Performed By: #### P HEP, HIVCMB #### [address] [address] [employer] Master: Alvino Davila MD #### CP, CBC, HCG #### [facility] [address] [place] [address] Harbor Master: Luis A Peng MD ALT [Catalytic activity/Vol] 39 U/L High 5-33 [facility] Comment on above: Performed By: #### P HEP, HIVCMB #### [address] [address] [employer] Master: Alvino Davila MD #### CP, CBC, HCG #### [facility] [address] [place], [place] [id number] Harbor Master: Luis A Peng MD Anion gap [Moles/Vol] 12 mmol/L Normal 9-17 [facility] Comment on above: Performed By: #### P HEP, HIVCMB #### [address] [address] [employer] Master: Alvino Davila MD #### CP, CBC, HCG #### [facility] [address] [place], [place] [id number] Harbor Master: Luis A Peng MD AST [Catalytic activity/Vol] 28 U/L Normal <32 [facility] Comment on above: Performed By: #### P HEP, HIVCMB #### [address] [address] [employer] Master: Alvino Davila MD #### CP, CBC, HCG #### [facility] [address] [place], [place] [id number] Harbor Master: Luis A Peng MD Bilirubin Ql (U) 0.26 mg/dL Low 0.3-1.2 [facility] Comment on above: Performed By: #### P HEP, HIVCMB #### [address] [address] [employer] Master: Alvino Davila MD #### CP, CBC, HCG #### [facility] [address] [place], [place] [id number] Harbor Master: Luis A Peng MD BUN/CRE Ratio 14 Normal 9-20 [facility] Comment on above: Performed By: #### P HEP, HIVCMB #### [address] [address] [employer] Master: Alvino Davila MD #### CP, CBC, HCG #### [facility] [address] [place], [place] [id number] Harbor Master: Luis A Peng MD Calcium [Mass/Vol] 10.1 mg/dL Normal 8.6-10.4 [facility] Comment on above: Performed By: #### P HEP, HIVCMB #### [address] [address] [employer] Master: Alvino Davila MD #### CP, CBC, HCG #### [facility] [place] [address] [place], [place] [id number] Harbor Master: Luis A Peng MD Chloride [Moles/Vol] 101 mmol/L Normal 98-107 [facility] Comment on above: Performed By: #### P HEP, HIVCMB #### [address] [address] Harbor Master: Alvino Davila MD #### CP, CBC, HCG #### [address] [place], [place] [id number] Harbor Master: Luis A Peng MD CO2 [Moles/Vol] 26 mmol/L Normal 20-31 [facility] Comment on above: Performed By: #### P HEP, HIVCMB #### [address] [address] [employer] Master: Alvino Davila MD #### CP, CBC, HCG #### [address] [place], [place] 8004183 Harbor Master: Luis A Peng MD Creatinine [Mass/Vol] 0.49 mg/dL Low 0.50-0.90 [facility] Comment on above: Performed By: #### P HEP, HIVCMB #### [address] [address] [employer] Master: Alvino Davila MD #### CP, CBC, HCG #### [address] [place], [place] [phone] Harbor Master: Luis A Peng MD GFR, Amer >60 Normal >60 [facility] Comment on above: Performed By: #### P HEP, HIVCMB #### [address] [place] [address] Harbor Master: Alvino Davila MD #### CP, CBC, HCG #### [address] [place], [place] [id number] Harbor Master: Luis A Peng MD GFR,non Amer >60 Normal >60 [facility] Comment on above: Performed By: #### P HEP, HIVCMB #### [address] [address] [employer] Master: Alvino Davila MD #### CP, CBC, HCG #### [address] [place], [place] [phone] Harbor Master: Luis A Peng MD Glucose [Mass/Vol] 101 mg/dL High 70-99 [facility] Comment on above: Performed By: #### P HEP, HIVCMB #### [address] [address] [employer] Master: Alvino Davila MD #### CP, CBC, HCG #### [address] [place] [address] Harbor Master: Luis A Peng MD Potassium [Moles/Vol] 4.2 mmol/L Normal 3.7-5.3 [facility] Comment on above: Performed By: #### P HEP, HIVCMB #### [address] [address] Harbor Master: Alvino Davila MD #### CP, CBC, HCG #### [address] [place] [address] Harbor Master: Luis A Peng MD Protein [Mass/Vol] 7.5 g/dL Normal 6.4-8.3 [facility] Comment on above: Performed By: #### P HEP, HIVCMB #### [address] [address] Harbor Master: Alvino Davila MD #### CP, CBC, HCG #### [address] [place] [phone] Harbor Master: Luis A Peng MD Sodium [Moles/Vol] 139 mmol/L Normal 135-144 [facility] Comment on above: Performed By: #### P HEP, HIVCMB #### [address] [address] Harbor Master: Alvino Davila MD #### CP, CBC, HCG #### [address] [place] [phone] Harbor Master: Luis A Peng MD Staging: Normal [facility] Comment on above: Result Comment: Stag e 1: Some kidney damage normal GFR Stage 2: Mild kidney damage GFR 60-89 Stage 3: Moderate kidney damage GFR 30-59 Stage 4: Severe kidney damage GFR 15-29 Stage 5: Severe kidney damage GFR <15 ESRD - chronic treatment by dialysis or transplant Performed By: #### P HEP, HIVCMB #### [address] [address] Harbor Master: Alvino Davila MD #### CP, CBC, HCG #### [address] [place] [address] Harbor Master: Luis A Peng MD Urea nitrogen [Mass/Vol] 7 mg/dL Normal 6-20 [facility] Comment on above: Performed By: #### P HEP, HIVCMB #### [address] [address] Harbor Master: Alvino Davila MD #### CP, CBC, HCG #### [facility] [address] [place] [address] Harbor Master: Luis A Peng MD Comprehensive Metabolic Pane liu 12-06-2020 Albumin [Mass/Vol] 4.6 g/dL 3.5 - 5.2 g/dL [place], [place] Albumin/Globulin [Mass ratio] 1.6 {ratio} [place] ALP [Catalytic activity/Vol] 81 U/L 35 - 104 U/L [place] ALT [Catalytic activity/Vol] 39 U/L High 5 - 33 U/L [place] Anion gap [Moles/Vol] 12 mmol/L 9 - 17 mmol/L [place] AST [Catalytic activity/Vol] 28 U/L <32 [place] Bilirubin Ql (U) 0.26 mg/dL Low 0.3 - 1.2 mg/dL [place], [place] Bun/Cre Ratio 14 [place] Calcium [Mass/Vol] 10.1 mg/dL 8.6 - 10. 4 mg/dL [place] Chloride [Moles/Vol] 101 mmol/L 98 - 107 mmol/L [place] CO2 [Moles/Vol] 26 mmol/L 20 - 31 mmol/L [place] Creatinine [Mass/Vol] 0.49 mg/dL Low 0.5 - 0.9 mg/d L [place] GFR >60 >60 mL/min [place] GFR Non- >60 >60 mL/min [place] Glucose [Mass/Vol] 101 mg/dL High 70 - 99 mg/dL [place] Interpretation and review of laboratory results Abnormal [place] Potassium [Moles/Vol] 4.2 mmol/L 3.7 - 5.3 mmol/L [place] Protein [Mass/Vol] 7.5 g/dL 6.4 - 8.3 g/dL [place] Sodium [Moles/Vol] 139 mmol/L 135 - 144 mmol/L [place] Urea nitrogen [Mass/Vol] 7 mg/dL 6 - 20 mg/dL [place] HCG Qualitative, Serumon hCG Qual Negative NEGATIVE [place] Comment on above: Specimens with hCG l evels near the threshold of the test (25 mIU/mL) may give a negative or indeterminate result. In such cases, another test should be performed with a new specimen in 48-72 hours. If early is suspected clinically in this setting, correlation with quantitative serum b-hCG level is suggested. [facility] has confirmed the use of plasma for this test. This has not been cleared or approved by the U.S. Food and Drug Administration. The FDA has determined that such clearance is not necessary. HCG Screen, Bloodon 12-06-19 HCG Qn Negative Normal NEG [facility] Comment on above: Result Comment: Spec imens with hCG levels near the threshold of the test (25 mIU/mL) may give a negative or indeterminate result. In such cases, another test should be performed with a new specimen in 48-72 hours. If early is suspected clinically in this setting, correlation with quantitative serum b-hCG level is suggested. [facility] has confirmed the use of plasma for this test. This has not been cleared or approved by the U.S. Food and Drug Administration. The FDA has determined that such clearance is not necessary. Performed By: #### P HEP, HIVCMB #### [address] [place], [place] [id number] Harbor Master: Alvino Davila MD #### CP, CBC, HCG #### [facility] [address] [place] [address] Harbor Master: Luis A Peng MD HIV Ag/Abon 12-06-2020 HIV Ag/Ab NONREACTIVE Normal NR [facility] Comment on above: Result Comment: No l aboratory evidence of HIV infection. If acute HIV infection is suspected, consider testing for HIV-1 RNA. Performed By: #### P HEP, HIVCMB #### [facility] [address] [place], [place] [id number] Harbor Master: Alvino Davila MD #### CP, CBC, HCG #### [facility] [address] [place] [address] [address] [place], [place] [phone] Harbor Master: Luis A Peng MD HIV Screenon 12-06-2020 HIV Ag/Ab NONREACTIVE NONREACTIVE [place] Comment on above: No laboratory eviden ce of HIV infection. If acute HIV infection is suspected, consider testing for HIV-1 RNA. Hepatitis Acute [facility] 12-06 Hep A Ab,IgM NONREACTIVE Normal [facility] Comment on above: Performed By: #### P HEP, HIVCMB #### [address] [address] Harbor Master: Alvino Davila MD #### CP, CBC, HCG #### [address] [place] [address] Harbor Master: Luis A Peng MD Hep B Core Ab,IgM NONREACTIVE Normal [facility] Comment on above: Performed By: #### P HEP, HIVCMB #### [address] [address] Harbor Master: Alvino Davila MD #### CP, CBC, HCG #### [address] [place] [address] Harbor Master: Luis A Peng MD Hep B Surf Ag NONREACTIVE Normal [facility] Comment on above: Performed By: #### P HEP, HIVCMB #### [address] [address] Harbor Master: Alvino Davila MD #### CP, CBC, HCG #### [address] [place] [address] Harbor Master: Luis A Peng MD Hep C Ab REACTIVE Abnormal [facility] Comment on [...] Performed By: #### P HEP, HIVCMB #### [facility] [address] [place] [address] Harbor Master: Alvino Davila MD #### CP, CBC, HCG #### [facility] [address] [place] [address] Harbor Master: Luis A Peng MD Hepatitis Panel, Acuteon HAV IgM IA Qn (S) NONREACTIVE NONREACTIVE [place] Hep B Core Ab, IgM NONREACTIVE NONREACTIVE [place] Hepatitis B Surface Ag NONREACTIVE NONREACTIVE [place] Hepatitis C Ab REACTIVE Abnormal NONREACTIVE [place] Comment on above: The hepatitis C [...] Interpretation and review of laboratory results Abnormal [place] Metabolic Panelon 12-06-2020 GFR/1.73 sq M predicted among non-blacks MDRD (S/P/Bld) [Vol rate/Area] [place] Comment on above: Stage 1: Some [...] body mass. Additional eGFR calculator available at: http://www.[employer].com/multiple_crcl_2012.htm CBCon 05-30-2020 Erythrocyte distribution width (RBC) [Ratio] 12.7 % Normal 11.8-14.4 [facility] Comment on above: Performed By: #### C P, HCG, CBC #### [facility] [address] [place] [address] [address] [place] [id number] Harbor Master: Luis A Peng MD #### HIVCMB, PHEP #### [address] [id number] Harbor Master: Alvino Davila MD Hematocrit (Bld) [Volume fraction] 39.2 % Normal 36.3-47.1 [facility] Comment on above: Performed By: #### C P, HCG, CBC #### [address] [place] [id number] Harbor Master: Luis A Peng MD #### HIVCMB, PHEP #### [place] [address] Harbor Master: Alvino Davila MD Hemoglobin (Bld) [Mass/Vol] 12.3 g/dL Normal 11.9-15.1 [facility] Comment on above: Performed By: #### C P, HCG, CBC #### [address] [place] [phone] Harbor Master: Luis A Peng MD #### HIVCMB, PHEP #### [place] [address] Harbor Master: Alvino Davila MD MCH (RBC) [Entitic mass] 26.2 pg Normal 25.2-33.5 [facility] Comment on above: Performed By: #### C P, HCG, CBC #### [address] [place] [phone] Harbor Master: Luis A Peng MD #### HIVCMB, PHEP #### [address] [id number] Harbor Master: Alvino Davila MD MCHC (RBC) [Mass/Vol] 31.4 g/dL Normal 28.4-34.8 [facility] Comment on above: Performed By: #### C P, HCG, CBC #### [facility] [address] [place] [address] Dr. [place] [phone] Harbor Master: Luis A Peng MD #### HIVCMB, PHEP #### [address] [id number] Harbor Master: Alvino Davila MD MCV (RBC) [Entitic vol] 83.6 fL Normal 82.6-102.9 [facility] Comment on above: Performed By: #### C P, HCG, CBC #### [address] [place] [phone] Harbor Master: Luis A Peng MD #### HIVCMB, PHEP #### [place] [phone] Harbor Master: Alvino Davila MD NRBC Automated 0.0 per 100 WBC Normal 0.0 [facility] Comment on above: Performed By: #### C P, HCG, CBC #### [address] [place] [phone] Harbor Master: Luis A Peng MD #### HIVCMB, PHEP #### [place] [phone] Harbor Master: Alvino Davila MD Platelet mean volume (Bld) [Entitic vol] 10.9 fL Normal 8.1-13.5 [facility] Comment on above: Performed By: #### C P, HCG, CBC #### [address] [place] [phone] Harbor Master: Luis A Peng MD #### HIVCMB, PHEP #### [address] [place], [place] [phone] Harbor Master: Alvino Davila MD Platelets (Bld) [#/Vol] 277 10*3/uL Normal 138-453 [facility] Comment on above: Performed By: #### C P, HCG, CBC #### [facility] [address] [place] [address] Dr. [place] [phone] Harbor Master: Luis A Peng MD #### HIVCMB, PHEP #### [address] [id number] Harbor Master: Alvino Davila MD RBC (Bld) [#/Vol] 4.69 10*6/uL Normal 3.95-5.11 [facility] Comment on above: Performed By: #### C P, HCG, CBC #### [address] [place] [phone] Harbor Master: Luis A Peng MD #### HIVCMB, PHEP #### [address] [address] Harbor Master: Alvino Davila MD WBC (Bld) [#/Vol] 5.5 10*3/uL Normal 3.5-11.3 [facility] Comment on above: Performed By: #### C P, HCG, CBC #### [address] [place] [phone] Harbor Master: Luis A Peng MD #### HIVCMB, PHEP #### [address] [phone] Harbor Master: Alvino Davila MD Erythrocyte distribution width (RBC) [Ratio] 12.7 % 11.8 - 14.4 % [place] Hematocrit (Bld) [Volume fraction] 39.2 % 36.3 - 47.1 % [place] Hemoglobin (Bld) [Mass/Vol] 12.3 g/dL 11.9 - 15.1 g/dL [place] MCH (RBC) [Entitic mass] 26.2 pg 25.2 - 33.5 pg [place] MCHC (RBC) [Mass/Vol] 31.4 g/dL 28.4 - 34.8 g/dL [place] MCV (RBC) [Entitic vol] 83.6 fL 82.6 - 102.9 fL [place] Platelet mean volume (Bld) [Entitic vol] 10.9 fL 8.1 - 13.5 fL [place] Platelets (Bld) [#/Vol] 277 10*3/uL [place] RBC (Bld) [#/Vol] 4.69 10*6/uL 3.95 - 5.1 1 m/uL [place] WBC (Bld) [#/Vol] 5.5 10*3/uL [place] WBC (Bld) [#/Vol] 0.0 10*3/uL 0.0 per 100 WBC M [place], [place] Comp Metabolic Profon 2019 (cont.) Normal [facility] Comment on above: Result Comment: Aver age GFR for 20-29 years old: 116 mL/min/1.73sq m Chronic Kidney Disease: <60 mL/min/1.73sq m Kidney failure: <15 mL/min/1.73sq m eGFR calculated using average adult body mass. Additional eGFR calculator available at: http://www.[employer].Neuroware.io/multiple_crcl_2011.htm Performed By: #### C P, HCG, CBC #### [facility] [address] [place] [address] Harbor Master: Luis A Peng MD #### HIVCMB, PHEP #### [facility] [address] [place] [address] Harbor Master: Alvino Davila MD Albumin [Mass/Vol] 3.4 g/dL Low 3.5-5.2 [facility] Comment on above: Performed By: #### C P, HCG, CBC #### [facility] [address] [place] [address] Harbor Master: Luis A Peng MD #### HIVCMB, PHEP #### [address] [address] Harbor Master: Alvino Davila MD Albumin/Globulin [Mass ratio] 1.1 {ratio} Normal 1.0-2.5 [facility] Comment on above: Performed By: #### C P, HCG, CBC #### [facility] [address] [place], [place] [phone] Harbor Master: Luis A Peng MD #### HIVCMB, PHEP #### [address] [phone] Harbor Master: Alvino Davila MD Alkaline Phos 130 U/L High 35-104 [facility] Comment on above: Performed By: #### C P, HCG, CBC #### [address] [place], [place] [phone] Harbor Master: Luis A Peng MD #### HIVCMB, PHEP #### [address] [address] Harbor Master: Alvino Davila MD ALT [Catalytic activity/Vol] 33 U/L Normal 5-33 [facility] Comment on above: Performed By: #### C P, HCG, CBC #### [address] [place], [place] [phone] Harbor Master: Luis A Peng MD #### HIVCMB, PHEP #### [address] [address] Harbor Master: Alvino Davila MD Anion gap [Moles/Vol] 7 mmol/L Low 9-17 [facility] Comment on above: Performed By: #### C P, HCG, CBC #### [facility] [address] [place] [address] Dr. [place] [phone] Harbor Master: Luis A Peng MD #### HIVCMB, PHEP #### [place] 026212 [place], [place] [phone] Harbor Master: Alvino Davila MD AST [Catalytic activity/Vol] 35 U/L High <32 [facility] Comment on above: Performed By: #### C P, HCG, CBC #### [facility] [address] [place] [phone] Harbor Master: Luis A Peng MD #### HIVCMB, PHEP #### [address] [phone] Harbor Master: Alvino Davila MD Bilirubin Ql (U) 0.16 mg/dL Low 0.3-1.2 [facility] Comment on above: Performed By: #### C P, HCG, CBC #### [facility] [address] [place] [address] Dr. [place] [phone] Harbor Master: Luis A Peng MD #### HIVCMB, PHEP #### [address] [address] Harbor Master: Alvino Davila MD BUN/CRE Ratio 14 Normal 9-20 [facility] Comment on above: Performed By: #### C P, HCG, CBC #### [facility] [address] [place] [address] Dr. [place] [phone] Harbor Master: Luis A Peng MD #### HIVCMB, PHEP #### [address] [address] Harbor Master: Alvino Davila MD Calcium [Mass/Vol] 9.2 mg/dL Normal 8.6-10.4 [facility] Comment on above: Performed By: #### C P, HCG, CBC #### [facility] [address] [place] [address] Dr. [place] [phone] Harbor Master: Luis A Peng MD #### HIVCMB, PHEP #### [place] 026212 [place], [place] [phone] Harbor Master: Alvino Davila MD Chloride [Moles/Vol] 99 mmol/L Normal 98-107 [facility] Comment on above: Performed By: #### C P, HCG, CBC #### [facility] [address] [place] [address] [place] [address] Harbor Master: Luis A Peng MD #### HIVCMB, PHEP #### [address] [phone] Harbor Master: Alvino Davila MD CO2 [Moles/Vol] 29 mmol/L Normal 20-31 [facility] Comment on above: Performed By: #### C P, HCG, CBC #### [address] [place] [address] Harbor Master: Luis A Peng MD #### HIVCMB, PHEP #### [address] [phone] Harbor Master: Alvino Davila MD Creatinine [Mass/Vol] 0.63 mg/dL Normal 0.50-0.90 [facility] Comment on above: Performed By: #### C P, HCG, CBC #### [address] [place] [address] Harbor Master: Luis A Peng MD #### HIVCMB, PHEP #### [address] [phone] Harbor Master: Alvino Davila MD GFR, Amer >60 Normal >60 [facility] Comment on above: Performed By: #### C P, HCG, CBC #### [address] [place] [address] Harbor Master: Luis A Peng MD #### HIVCMB, PHEP #### [place] 026212 [place] [address] Harbor Master: Alvino Davila MD GFR,non Amer >60 Normal >60 [facility] Comment on above: Performed By: #### C P, HCG, CBC #### [facility] [address] [place], [place] [phone] Harbor Master: Luis A Peng MD #### HIVCMB, PHEP #### [address] [address] Harbor Master: Alvino Davila MD Glucose [Mass/Vol] 95 mg/dL Normal 70-99 [facility] Comment on above: Performed By: #### C P, HCG, CBC #### [facility] [address] [place], [place] [phone] Harbor Master: Luis A Peng MD #### HIVCMB, PHEP #### [address] [address] Harbor Master: Alvino Davila MD Potassium [Moles/Vol] 4.3 mmol/L Normal 3.7-5.3 [facility] Comment on above: Performed By: #### C P, HCG, CBC #### [facility] [address] [place], [place] [phone] Harbor Master: Luis A Peng MD #### HIVCMB, PHEP #### [address] [address] Harbor Master: Alvino Davila MD Protein [Mass/Vol] 6.5 g/dL Normal 6.4-8.3 [facility] Comment on above: Performed By: #### C P, HCG, CBC #### [facility] [address] [place], [place] [phone] Harbor Master: Luis A Peng MD #### HIVCMB, PHEP #### [address] [place] [address] Harbor Master: Alvino Davila MD Sodium [Moles/Vol] 135 mmol/L Normal 135-144 [facility] Comment on above: Performed By: #### C P, HCG, CBC #### [facility] [address] [place] [address] [place]. [place], [place] [phone] Harbor Master: Luis A Peng MD #### HIVCMB, PHEP #### [address] [address] Harbor Master: Alvino Davila MD Staging: Normal [facility] Comment on above: Result Comment: Stag e 1: Some kidney damage normal GFR Stage 2: Mild kidney damage GFR 60-89 Stage 3: Moderate kidney damage GFR 30-59 Stage 4: Severe kidney damage GFR 15-29 Stage 5: Severe kidney damage GFR <15 ESRD - chronic treatment by dialysis or transplant Performed By: #### C P, HCG, CBC #### [address] [place], [place] [phone] Harbor Master: Luis A Peng MD #### HIVCMB, PHEP #### [address] [phone] Harbor Master: Alvnio Davila MD Urea nitrogen [Mass/Vol] 9 mg/dL Normal 6-20 [facility] Comment on above: Performed By: #### C P, HCG, CBC #### [address] [place], [place] 7015083 Harbor Master: Luis A Peng MD #### HIVCMB, PHEP #### [address] [phone] Harbor Master: Alvino Davila MD Comprehensive Metabolic Pane [facility] 05-30-2020 Albumin [Mass/Vol] 3.4 g/dL Low 3.5 - 5.2 g/dL [place], [place] Albumin/Globulin [Mass ratio] 1.1 {ratio} [place] ALP [Catalytic activity/Vol] 130 U/L High 35 - 104 U/L [place] ALT [Catalytic activity/Vol] 33 U/L 5 - 33 U/L [place] Anion gap [Moles/Vol] 7 mmol/L Low 9 - 17 mmol/L [place] AST [Catalytic activity/Vol] 35 U/L High <32 [place] Bilirubin Ql (U) 0.16 mg/dL Low 0.3 - 1.2 mg/dL [place], [place] Bun/Cre Ratio 14 [place], [place] Calcium [Mass/Vol] 9.2 mg/dL 8.6 - 10. 4 mg/dL [place] Chloride [Moles/Vol] 99 mmol/L 98 - 107 mmol/L [place] CO2 [Moles/Vol] 29 mmol/L 20 - 31 mmol/L [place] Creatinine [Mass/Vol] 0.63 mg/dL 0.5 - 0.9 mg/d L [place] GFR >60 >60 mL/min [place] GFR Non- >60 >60 mL/min [place] Glucose [Mass/Vol] 95 mg/dL 70 - 99 mg/dL [place] Interpretation and review of laboratory results Abnormal [place] Potassium [Moles/Vol] 4.3 mmol/L 3.7 - 5.3 mmol/L [place] Protein [Mass/Vol] 6.5 g/dL 6.4 - 8.3 g/dL [place] Sodium [Moles/Vol] 135 mmol/L 135 - 144 mmol/L [place] Urea nitrogen [Mass/Vol] 9 mg/dL 6 - 20 mg/dL [place] HCG Qualitative, Serumon hCG Qual Negative NEGATIVE [place] Comment on above: Specimens with hCG l evels near the threshold of the test (25 mIU/mL) may give a negative or indeterminate result. In such cases, another test should be performed with a new specimen in 48-72 hours. If early is suspected clinically in this setting, correlation with quantitative serum b-hCG level is suggested. [facility] has confirmed the use of plasma for this test. This has not been cleared or approved by the U.S. Food and Drug Administration. The FDA has determined that such clearance is not necessary. HCG Screen, Bloodon 05-30-20 20 HCG Qn Negative Normal NEG [facility] Comment on above: Result Comment: Spec imens with hCG levels near the threshold of the test (25 mIU/mL) may give a negative or indeterminate result. In such cases, another test should be performed with a new specimen in 48-72 hours. If early is suspected clinically in this setting, correlation with quantitative serum b-hCG level is suggested. [facility] has confirmed the use of plasma for this test. This has not been cleared or approved by the U.S. Food and Drug Administration. The FDA has determined that such clearance is not necessary. Performed By: #### C P, HCG, CBC #### [facility] [address] [place] [address] [place] [address] Harbor Master: Luis A Peng MD #### HIVCMB, PHEP #### [facility] [address] [place] [address] Harbor Master: Alvino Davila MD HIV Ag/Abon 05-30-2020 HIV Ag/Ab NONREACTIVE Normal NR [facility] Comment on above: Result Comment: No l aboratory evidence of HIV infection. If acute HIV infection is suspected, consider testing for HIV-1 RNA. Performed By: #### C P, HCG, CBC #### [address] [place] [address] Harbor Master: Luis A Peng MD #### HIVCMB, PHEP #### [facility] [address] [place], [place] [phone] Harbor Master: Alvino Davila MD HIV Screenon 05-30-2020 HIV Ag/Ab NONREACTIVE NONREACTIVE [place] Comment on above: No laboratory eviden ce of HIV infection. If acute HIV infection is suspected, consider testing for HIV-1 RNA. Hepatitis Acute [facility] 05-30 Hep A Ab,IgM NONREACTIVE Normal NR [facility] Comment on above: Performed By: #### C P, HCG, CBC #### [facility] [address] [place] [address] Harbor Master: Luis A Peng MD #### HIVCMB, PHEP #### [address] [id number] Harbor Master: Alvino Davila MD Hep B Core Ab,IgM NONREACTIVE Normal [facility] Comment on above: Performed By: #### C P, HCG, CBC #### [address] [place] [phone] Harbor Master: Luis A Peng MD #### HIVCMB, PHEP #### [address] [phone] Harbor Master: Alvino Davila MD Hep B Surf Ag NONREACTIVE Normal [facility] Comment on above: Performed By: #### C P, HCG, CBC #### [address] [place] [phone] Harbor Master: Luis A Peng MD #### HIVCMB, PHEP #### [address] [address] Harbor Master: Alvino Davila MD Hep C Ab NONREACTIVE Normal [facility] Comment [...] By: #### C P, HCG, CBC #### [address] [place] [address] Harbor Master: Luis A Peng MD #### HIVCMB, PHEP #### [facility] [address] [place] [address] Harbor Master: Alvino Davila MD Hepatitis Panel, Acuteon HAV IgM IA Qn (S) NONREACTIVE NONREACTIVE [place] Hep B Core Ab, IgM NONREACTIVE NONREACTIVE [place] Hepatitis B Surface Ag NONREACTIVE NONREACTIVE [place] Hepatitis C Ab NONREACTIVE NONREACTIVE [place] Comment on above: The hepatitis C [...] predicted among non-blacks MDRD (S/P/Bld) [Vol rate/Area] [place] Comment on above: Stage 1: Some [...] body mass. Additional eGFR calculator available at: http://www.[employer].Neuroware.io/multiple_crcl_2012.htm [facility] 01-01-2020 Erythrocyte distribution width (RBC) [Ratio] 12.5 % Normal 11.8-14.4 [facility] Comment on above: Performed By: #### P HEP, HIVCMB #### [facility] [address] [place], [place] [phone] Harbor Master: Alvino Davila MD #### CP, CBC, HCG #### [facility] [address] [place] [phone] Harbor Master: Luis A Peng MD Hematocrit (Bld) [Volume fraction] 40.2 % Normal 36.3-47.1 [facility] Comment on above: Performed By: #### P HEP, HIVCMB #### [address] [id number] Harbor Master: Alvino Davila MD #### CP, CBC, HCG #### [address] [place] [phone] Harbor Master: Luis A Peng MD Hemoglobin (Bld) [Mass/Vol] 13.1 g/dL Normal 11.9-15.1 [facility] Comment on above: Performed By: #### P HEP, HIVCMB #### [address] [id number] Harbor Master: Alvino Davila MD #### CP, CBC, HCG #### [address] [place] [phone] Harbor Master: Luis A Peng MD MCH (RBC) [Entitic mass] 28.4 pg Normal 25.2-33.5 [facility] Comment on above: Performed By: #### P HEP, HIVCMB #### [address] [id number] Harbor Master: Alvino Davila MD #### CP, CBC, HCG #### [address] [place] [phone] Harbor Master: Luis A Peng MD MCHC (RBC) [Mass/Vol] 32.6 g/dL Normal 28.4-34.8 [facility] Comment on above: Performed By: #### P HEP, HIVCMB #### [address] [id number] Harbor Master: Alvino Davila MD #### CP, CBC, HCG #### [address] [place], [place] [phone] Harbor Master: Luis A Peng MD MCV (RBC) [Entitic vol] 87.2 fL Normal 82.6-102.9 [facility] Comment on above: Performed By: #### P HEP, HIVCMB #### [address] [phone] Harbor Master: Alvino Davila MD #### CP, CBC, HCG #### [address] [place], [place] 9791583 Harbor Master: Luis A Peng MD NRBC Automated 0.0 per 100 WBC Normal 0.0 [facility] Comment on above: Performed By: #### P HEP, HIVCMB #### [address] [address] Harbor Master: Alvino Davila MD #### CP, CBC, HCG #### [address] [place] [phone] Harbor Master: Luis A Peng MD Platelet mean volume (Bld) [Entitic vol] 11.2 fL Normal 8.1-13.5 [facility] Comment on above: Performed By: #### P HEP, HIVCMB #### [address] [id number] Harbor Master: Alvino Davila MD #### CP, CBC, HCG #### [address] [place], [place] 7374983 Harbor Master: Luis A Peng MD Platelets (Bld) [#/Vol] 241 10*3/uL Normal 138-453 [facility] Comment on above: Performed By: #### P HEP, HIVCMB #### [address] [address] Harbor Master: Alvino Davila MD #### CP, CBC, HCG #### [address] [place] [phone] Harbor Master: Luis A Peng MD RBC (Bld) [#/Vol] 4.61 10*6/uL Normal 3.95-5.11 [facility] Comment on above: Performed By: #### P HEP, HIVCMB #### [place] [address] [place], [place] [phone] Harbor Master: Alvino Davila MD #### CP, CBC, HCG #### [address] [place] [address] Harbor Master: Luis A Peng MD WBC (Bld) [#/Vol] 9.0 10*3/uL Normal 3.5-11.3 [facility] Comment on above: Performed By: #### P HEP, HIVCMB #### [place] [address] [place], [place] [id number] Harbor Master: Alvino Davila MD #### CP, CBC, HCG #### [address] [place] [address] Harbor Master: Luis A Peng MD Erythrocyte distribution width (RBC) [Ratio] 12.5 % 11.8 - 14.4 % [place] Hematocrit (Bld) [Volume fraction] 40.2 % 36.3 - 47.1 % [place] Hemoglobin (Bld) [Mass/Vol] 13.1 g/dL 11.9 - 15.1 g/dL [place] MCH (RBC) [Entitic mass] 28.4 pg 25.2 - 33.5 pg [place] MCHC (RBC) [Mass/Vol] 32.6 g/dL 28.4 - 34.8 g/dL [place] MCV (RBC) [Entitic vol] 87.2 fL 82.6 - 102.9 fL [place] Platelet mean volume (Bld) [Entitic vol] 11.2 fL 8.1 - 13.5 fL [place] Platelets (Bld) [#/Vol] 241 10*3/uL [place] RBC (Bld) [#/Vol] 4.61 10*6/uL 3.95 - 5.1 1 m/uL [place] WBC (Bld) [#/Vol] 0.0 10*3/uL 0.0 per 100 WBC [place] WBC (Bld) [#/Vol] 9.0 10*3/uL [place] Comp Metabolic Profon 2019 (cont.) Normal [facility] Comment on above: Result Comment: Aver age GFR for 20-29 years old: 116 mL/min/1.73sq m Chronic Kidney Disease: <60 mL/min/1.73sq m Kidney failure: <15 mL/min/1.73sq m eGFR calculated using average adult body mass. Additional eGFR calculator available at: http://www.[employer]/multiple_crcl_2011.htm Performed By: #### P HEP, HIVCMB #### [facility] [address] [place] [address] [id number] Harbor Master: Alvino Davila MD #### CP, CBC, HCG #### [address] [place] [address] Harbor Master: Luis A Peng MD Albumin [Mass/Vol] 4.2 g/dL Normal 3.5-5.2 [facility] Comment on above: Performed By: #### P HEP, HIVCMB #### [facility] [address] [place] [address] Harbor Master: Alvino Davila MD #### CP, CBC, HCG #### [address] [place] [address] Harbor Master: Luis A Peng MD Albumin/Globulin [Mass ratio] 1.7 {ratio} Normal 1.0-2.5 [facility] Comment on above: Performed By: #### P HEP, HIVCMB #### [address] [address] Harbor Master: Alvino Davila MD #### CP, CBC, HCG #### [address] [place] [address] Harbor Master: Luis A Peng MD Alkaline Phos 69 U/L Normal 35-104 [facility] Comment on above: Performed By: #### P HEP, HIVCMB #### [address] [address] Harbor Master: Alvino Davila MD #### CP, CBC, HCG #### [address] [place] [address] Harbor Master: Luis A Peng MD ALT [Catalytic activity/Vol] 78 U/L High 5-33 [facility] Comment on above: Performed By: #### P HEP, HIVCMB #### [address] [address] Harbor Master: Alvino Davila MD #### CP, CBC, HCG #### [address] [place] [address] Harbor Master: Luis A Peng MD Anion gap [Moles/Vol] 9 mmol/L Normal 9-17 [facility] Comment on above: Performed By: #### P HEP, HIVCMB #### [address] [address] Harbor Master: Alvino Davila MD #### CP, CBC, HCG #### [address] [place] [address] Harbor Master: Luis A Peng MD AST [Catalytic activity/Vol] 44 U/L High <32 [facility] Comment on above: Performed By: #### P HEP, HIVCMB #### [address] [address] Harbor Master: Alvino Davila MD #### CP, CBC, HCG #### [facility] [address] [place] [address] Harbor Master: Luis A Peng MD Bilirubin Ql (U) 0.15 mg/dL Low 0.3-1.2 [facility] Comment on above: Performed By: #### P HEP, HIVCMB #### [address] [address] Harbor Master: Alvino Davila MD #### CP, CBC, HCG #### [facility] [address] [place] [address] Harbor Master: Luis A Peng MD BUN/CRE Ratio 20 Normal 9-20 [facility] Comment on above: Performed By: #### P HEP, HIVCMB #### [address] [address] Harbor Master: Alvino Davila MD #### CP, CBC, HCG #### [facility] [address] [place] [facility] Harbor Master: Luis A Peng MD Calcium [Mass/Vol] 9.4 mg/dL Normal 8.6-10.4 [facility] Comment on above: Performed By: #### P HEP, HIVCMB #### [address] [address] Harbor Master: Alvino Davila MD #### CP, CBC, HCG #### [facility] [address] [place] [address] [place] [address] Harbor Master: Luis A Peng MD Chloride [Moles/Vol] 97 mmol/L Low 98-107 [facility] Comment on above: Performed By: #### P HEP, HIVCMB #### [address] [address] Harbor Master: Alvino Davila MD #### CP, CBC, HCG #### [address] [place] [address] Harbor Master: Luis A Peng MD CO2 [Moles/Vol] 28 mmol/L Normal 20-31 [facility] Comment on above: Performed By: #### P HEP, HIVCMB #### [address] [address] Harbor Master: Alvino Davila MD #### CP, CBC, HCG #### [address] [place], [place] [id number] Harbor Master: Luis A Peng MD Creatinine [Mass/Vol] 0.55 mg/dL Normal 0.50-0.90 [facility] Comment on above: Performed By: #### P HEP, HIVCMB #### [address] [address] Harbor Master: Alvino Davila MD #### CP, CBC, HCG #### [address] [place], [place] [id number] Harbor Master: Luis A Peng MD GFR, Amer >60 Normal >60 [facility] Comment on above: Performed By: #### P HEP, HIVCMB #### [address] [address] Harbor Master: Alvino Davila MD #### CP, CBC, HCG #### [address] [place], [place] [id number] Harbor Master: Luis A Peng MD GFR,non Amer >60 Normal >60 [facility] Comment on above: Performed By: #### P HEP, HIVCMB #### [address] [address] Harbor Master: Alvino Davila MD #### CP, CBC, HCG #### [address] [place], [place] [id number] Harbor Master: Luis A Peng MD Glucose [Mass/Vol] 85 mg/dL Normal 70-99 [facility] Comment on above: Performed By: #### P HEP, HIVCMB #### [address] [address] Harbor Master: Alvino Davila MD #### CP, CBC, HCG #### [address] [place], [place] [id number] Harbor Master: Luis A Peng MD Potassium [Moles/Vol] 4.3 mmol/L Normal 3.7-5.3 [facility] Comment on above: Performed By: #### P HEP, HIVCMB #### [address] [id number] Harbor Master: Alvino Davila MD #### CP, CBC, HCG #### [address] [place] [id number] Harbor Master: Luis A Peng MD Protein [Mass/Vol] 6.7 g/dL Normal 6.4-8.3 [facility] Comment on above: Performed By: #### P HEP, HIVCMB #### [address] [address] Harbor Master: Alvino Davila MD #### CP, CBC, HCG #### [address] [place] [id number] Harbor Master: Luis A Peng MD Sodium [Moles/Vol] 134 mmol/L Low 135-144 [facility] Comment on above: Performed By: #### P HEP, HIVCMB #### [address] [address] Harbor Master: Alvino Davila MD #### CP, CBC, HCG #### [address] [place] [id number] Harbor Master: Luis A Peng MD Staging: Normal [facility] Comment on above: Result Comment: Stag e 1: Some kidney damage normal GFR Stage 2: Mild kidney damage GFR 60-89 Stage 3: Moderate kidney damage GFR 30-59 Stage 4: Severe kidney damage GFR 15-29 Stage 5: Severe kidney damage GFR <15 ESRD - chronic treatment by dialysis or transplant Performed By: #### P HEP, HIVCMB #### [facility] [address] [place], [place] [id number] Harbor Master: Alvino Davial MD #### CP, CBC, HCG #### [facility] [address] [place] [address] Harbor Master: Luis A Peng MD Urea nitrogen [Mass/Vol] 11 mg/dL Normal 6-20 [facility] Comment on above: Performed By: #### P HEP, HIVCMB #### [facility] [place], [place] [phone] Harbor Master: Alvino Davila MD #### CP, CBC, HCG #### [facility] [address] [place] [address] Harbor Master: Luis A Peng MD Comprehensive Metabolic Pane [facility] 01-01-[facility] Albumin [Mass/Vol] 4.2 g/dL 3.5 - 5.2 g/dL [place], [place] Albumin/Globulin [Mass ratio] 1.7 {ratio} [place] ALP [Catalytic activity/Vol] 69 U/L 35 - 104 U/L [place] ALT [Catalytic activity/Vol] 78 U/L High 5 - 33 U/L [place] Anion gap [Moles/Vol] 9 mmol/L 9 - 17 mmol/L [place] AST [Catalytic activity/Vol] 44 U/L High <32 [place] Bilirubin Ql (U) 0.15 mg/dL Low 0.3 - 1.2 mg/dL [place], [place] Bun/Cre Ratio 20 [place], [place] Calcium [Mass/Vol] 9.4 mg/dL 8.6 - 10. 4 mg/dL [place] Chloride [Moles/Vol] 97 mmol/L Low 98 - 107 mmol/L [place] CO2 [Moles/Vol] 28 mmol/L 20 - 31 mmol/L [place] Creatinine [Mass/Vol] 0.55 mg/dL 0.5 - 0.9 mg/d L [place] GFR >60 >60 mL/min [place] GFR Non- >60 >60 mL/min [place] Glucose [Mass/Vol] 85 mg/dL 70 - 99 mg/dL [place], [place] Interpretation and review of laboratory results Abnormal [place] Potassium [Moles/Vol] 4.3 mmol/L 3.7 - 5.3 mmol/L [place] Protein [Mass/Vol] 6.7 g/dL 6.4 - 8.3 g/dL [place] Sodium [Moles/Vol] 134 mmol/L Low 135 - 144 mmol/L [place] Urea nitrogen [Mass/Vol] 11 mg/dL 6 - 20 mg/dL [place] HCG Qualitative, Serumon hCG Qual Negative NEGATIVE [place] Comment on above: Specimens with hCG l evels near the threshold of the test (25 mIU/mL) may give a negative or indeterminate result. In such cases, another test should be performed with a new specimen in 48-72 hours. If early is suspected clinically in this setting, correlation with quantitative serum b-hCG level is suggested. [facility] has confirmed the use of plasma for this test. This has not been cleared or approved by the U.S. Food and Drug Administration. The FDA has determined that such clearance is not necessary. HCG Screen, Bloodon 01-01-20 20 HCG Qn Negative Normal NEG [facility] Comment on above: Result Comment: Spec imens with hCG levels near the threshold of the test (25 mIU/mL) may give a negative or indeterminate result. In such cases, another test should be performed with a new specimen in 48-72 hours. If early is suspected clinically in this setting, correlation with quantitative serum b-hCG level is suggested. [facility] has confirmed the use of plasma for this test. This has not been cleared or approved by the U.S. Food and Drug Administration. The FDA has determined that such clearance is not necessary. Performed By: #### P HEP, HIVCMB #### [facility] [address] [place] [address] Harbor Master: Alvino Davila MD #### CP, CBC, HCG #### [address] [place] [address] Harbor Master: Luis A Peng MD HIV Ag/Abon 01-01-2020 HIV Ag/Ab NONREACTIVE Normal [facility] Comment on above: Result Comment: No l aboratory evidence of HIV infection. If acute HIV infection is suspected, consider testing for HIV-1 RNA. Performed By: #### P HEP, HIVCMB #### [address] [address] Harbor Master: Alvino Davila MD #### CP, CBC, HCG #### [address] [place] [address] Harbor Master: Luis A Peng MD HIV Screenon 01-01-2020 HIV Ag/Ab NONREACTIVE NONREACTIVE [place], [place] Comment on above: No laboratory eviden ce of HIV infection. If acute HIV infection is suspected, consider testing for HIV-1 RNA. Hepatitis Acute [facility] 12-31 Hep A Ab,IgM NONREACTIVE Normal [facility] Comment on above: Performed By: #### P HEP, HIVCMB #### [address] [address] Harbor Master: Alvino Davila MD #### CP, CBC, HCG #### [address] [place] [address] Harbor Master: Luis A Peng MD Hep B Core Ab,IgM NONREACTIVE Normal [facility] Comment on above: Performed By: #### P HEP, HIVCMB #### [place] [id number] [place] [address] Harbor Master: Alvino Davila MD #### CP, CBC, HCG #### [facility] [address] [place] [address] [place] [place], [place] [id number] Harbor Master: Luis A Peng MD Hep B Surf Ag NONREACTIVE Normal [facility] Comment on above: Performed By: #### P HEP, HIVCMB #### [address] [address] Harbor Master: Alvino Davila MD #### CP, CBC, HCG #### [address] [place], [place] [id number] Harbor Master: Luis A Peng MD Hep C Ab NONREACTIVE Normal [facility] Comment [...] Performed By: #### P HEP, HIVCMB #### [address] [address] Harbor Master: Alvino Davila MD #### CP, CBC, HCG #### [address] [place], [place] [id number] Harbor Master: Luis A Peng MD Hepatitis Panel, [facility] HAV IgM IA Qn (S) NONREACTIVE NONREACTIVE [place] Hep B Core Ab, IgM NONREACTIVE NONREACTIVE [place] Hepatitis B Surface Ag NONREACTIVE NONREACTIVE [place] Hepatitis C Ab NONREACTIVE NONREACTIVE [place], [place] Comment on above: The hepatitis C [...] predicted among non-blacks MDRD (S/P/Bld) [Vol rate/Area] [facility] [place] Comment on above: Stage 1: Some [...] body mass. Additional eGFR calculator available at: http://www.Medesen/multiple_crcl_2011.htm Vital Signs Date Time Vital Sign Value Performing Clinician Ld blackmon 06-27-2025 10:02-0400 Body mass index (BMI) [Ratio] 28.04 kg/m2 Paradise MORROW Work Phone: [facility] 06-27-2025 10:02-0400 Body weight 76.43 kg Paradise MORROW Work Phone: [facility] 06-27-2025 10:02-0400 Diastolic blood pressure 76 mm[Hg] Paradise MORROW Work Phone: [facility] 06-27-2025 10:02-0400 Systolic blood pressure 120 mm[Hg] Paradise MORROW Work Phone: [facility] 06-20-2025 14:32-0400 Body mass index (BMI) [Ratio] 28.09 kg/m2 Mee Yary DO Work Phone: [facility] 06-20-2025 14:32-0400 Body weight 76.57 kg Mee Yary DO Work Phone: [facility] 06-20-2025 14:32-0400 Diastolic blood pressure 80 mm[Hg] Mee Yary DO Work Phone: [facility] 06-20-2025 14:32-0400 Systolic blood pressure 120 mm[Hg] Mee Yary DO Work Phone: [facility] 06-07-2025 10:17-0400 Body mass index (BMI) [Ratio] 27.46 kg/m2 Mee Yary DO Work Phone: [facility] 06-07-2025 10:17-0400 Body weight 74.84 kg Mee Yary DO Work Phone: [facility] 06-07-2025 10:17-0400 Diastolic blood pressure 74 mm[Hg] Mee Yary DO Work Phone: [facility] 06-07-2025 10:17-0400 Systolic blood pressure 118 mm[Hg] Mee Yary DO Work Phone: [facility] 05-30-2025 09:30-0400 Body height 165.1 cm Nohemy Hernandez MD Work Phone: [facility] 05-30-2025 09:30-0400 Body mass index (BMI) [Ratio] 27.09 kg/m2 Nohemy Hernandez MD Work Phone: [facility] 05-30-2025 09:30-0400 Body weight 73.85 kg Nohemy Hernandez MD Work Phone: [facility] 05-30-2025 09:30-0400 Diastolic blood pressure 73 mm[Hg] Nohemy Hernandez MD Work Phone: [facility] 05-30-2025 09:30-0400 Heart rate 83 /min Nohemy Hernandez MD Work Phone: [facility] 05-30-2025 09:30-0400 Systolic blood pressure 110 mm[Hg] Nohemy Hernandez MD Work Phone: [facility] 05-30-2025 08:57-0400 Body height 165.1 cm Nohemy Hernandez MD Work Phone: [facility] 05-16-2025 10:59-0400 Body mass index (BMI) [Ratio] [...] mass index (BMI) [Ratio] 26.26 kg/m2 Mee Ayry DO Work Phone: [facility] [...] 112 mm[Hg] Mee Yary DO Work Phone: [facility] 04-06-2025 11:47-0400 Body mass index (BMI) [Ratio] 25.76 kg/m2 Noms Nurse [facility] 04-06-2025 11:47-0400 Body weight 70.22 kg Noms Nurse [facility] Encounters Encounter Date Encounter Type Care Provider Facility Start: 06-27-2025 End: 06-27-2025 Bamboo flowsheet Paradise MORROW Work Phone: [facility] Start: 06-27-2025 End: 06-27-2025 Bamboo flowsheet Paradise MORROW Work Phone: [facility] Start: 06-27-2025 End: 06-27-2025 Office outpatient visit 15 minutes Paradise MORROW Work Phone: [facility] Comment on above: Third trimester preg helder ([facility]); 35 weeks gestation of ([facility]) Start: 06-20-2025 End: 06-20-2025 Office outpatient visit 15 minutes Mee Yary DO Work Phone: [facility] Comment on above: 34 weeks gestation o f ([facility]); Third trimester ([facility]); H/[place] History of placental abruption; Hepatitis C virus infection without hepatic coma, unspecified chronicity Start: 06-20-2025 End: 06-20-2025 ambulatory MEE YARY Not Available Start: 06-20-2025 End: 06-20-2025 Bamboo flowsheet Mee Yary DO Work Phone: [facility] Start: 06-20-2025 End: 06-20-2025 Bamboo flowsheet Mee Yary DO Work Phone: [facility] Start: 06-14-2025 End: 06-14-2025 Clinisync Result [...] Mee Yary DO Work Phone: [facility] Start: 06-07-2025 End: 06-07-2025 Bamboo flowsheet Mee Yary DO Work Phone: [facility] Start: 06-07-2025 End: 06-07-2025 ambulatory MEE YARY Not Available Start: 06-07-2025 End: 06-07-2025 Office outpatient visit 15 minutes Mee Yary DO Work Phone: [facility] Comment on above: Third trimester preg helder ([facility]); 32 weeks gestation of ([facility]); H/O [place] History of placental abruption; Diabetes mellitus screening Start: 06-05-2025 End: 06-05-2025 Clinisync Result Encounter Mee Yary DO Work Phone: [facility] Start: 06-05-2025 End: 06-05-2025 Clinisync Result Encounter Mee Yary DO Work Phone: [facility] Start: 05-30-2025 End: 05-30-2025 Chart abstracting Nohemy Hernandez MD Work Phone: [facility] Start: 05-30-2025 End: 05-30-2025 Office outpatient new 45 minutes Nohemy Hernandez MD Work Phone: [facility] Comment on above: History of placental abruption (Primary Dx); Hepatitis C virus infection without hepatic coma, unspecified chronicity Start: 05-30-2025 End: 05-30-2025 ambulatory MEE R [facility] Start: 05-21-2025 End: 05-21-2025 Clinisync [...] o f ([facility]); Third trimester ([facility]); Request for sterilization; H/O opioid abuse ([facility] History of placental abruption Start: 05-16-2025 End: 05-16-2025 ambulatory MEE YARY Not Available Start: 05-02-2025 End: 05-02-2025 ambulatory MEE YARY Not Available Start: 05-02-2025 End: 05-02-2025 Office outpatient visit 15 minutes Mee Yary DO Work Phone: [facility] Comment on above: Second trimester pre gnancy ([facility]); 27 weeks gestation of ([facility]); Request for sterilization; H/O opioid abuse [place] History of placental abruption Start: 05-02-2025 End: [...] Comment on above: Second trimester pre gnancy ([facility]); 25 weeks gestation of ([facility]) Start: 04-09-2025 End: 04-09-2025 Clinisync Result Encounter Paradise MORROW Work Phone: [facility] External Department Unsolicited Start: 04-09-2025 End: 04-09-2025 Clinisync Result Encounter Paradise MORROW Work Phone: [facility] External Department Unsolicited Start: 04-06-2025 End: 04-06-2025 Office outpatient visit 5 minutes [facility] Yary Nurse [facility] Comment on above: GA: 23w6d Start: 04-06-2025 End: 04-06-2025 ambulatory MEE YARY Not Available Start: 01-22-2025 End: 01-22-2025 Clinisync Result Encounter Mee Yary DO Work Phone: [facility] Start: 01-22-2025 End: 01-22-2025 Clinisync Result Encounter Mee Yary DO Work Phone: [facility]olic[facility] Start: 11-29-2024 End: 11-29-2024 Clinisync Result Encounter Eme Yary DO Work Phone: [facility] [...] 03-27-2021 End: 03-28-2021 ambulatory Helder Monk MD Facility:[facility] Start: 12-06-2020 End: 12-07-2020 Patient encounter procedure [facility] Start: 12-06-2020 End: 12-06-2020 Subsequent hospital visit by physician [facility] Start: 11-11-2020 End: 11-12-2020 Patient encounter procedure [facility] Start: 05-30-2020 End: 05-31-2020 Patient encounter procedure [facility] Start: 05-30-2020 End: 05-30-2020 Subsequent hospital visit by physician [facility] Start: 01-01-2020 End: 01-02-2020 Patient encounter procedure [facility] Start: 01-01-2020 End: 01-01-2020 Subsequent hospital visit by physician [facility] Start: 09-20-2018 End: 09-21-2018 Patient encounter procedure Sidney Nava Facility:[id number] Procedures Date Procedure Procedure Detail Performing Clinician Start: 06-27-2025 Urnls dip stick/tabl et rgnt non-auto w/o micrscp Paradise MORROW Work Phone: Start: 06-20-2025 Urnls dip stick/tabl et rgnt non-auto w/o micrscp Mee Yary DO Work Phone: Start: 06-14-2025 [facility] (CLEAN/CATCH) 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 Mee Yary DO Work Phone: [...] Not In System Ref Prov Start: 05-21-2025 [facility] DRUG SCREEN RAPI D (URINE) Mee [...] Mee Yary DO Work Phone: Start: 11-29-2024 [facility] PREG QUANT HCG Core y Yary DO Work Phone: Start: 12-06-2020 Acute hepatitis panel E estela Fritz Work Phone: Start: 12-06-2020 Antibody hiv-1&hiv-2 single result Malini Fritz Work Phone: Start: 12-06-2020 Blood count complete automated Malini Goodsoner Work Phone: Start: 12-06-2020 Comprehensive metabo lic [...] Adult BMI Screening Adult BMI Screen ing [facility] Start: 05-30-2026 Tobacco Screening Tobacco Screening [facility] Start: 07-05-2025 End: 07-05-2025 Patient encounter procedure [facility] Start: 07-04-2025 End: 07-04-2025 Patient encounter procedure 07/04/2025 10:50 AM EDT Routine [facility] [address] [place] [address] Mee Pringle DO [address], [place] [id number] [facility] Start: 07-02-2025 Influenza vaccination [facility] Start: 06-27-2025 End: 06-27-2026 CULTURE, GROUP B STREP WITH SUSCEPTIBLITY CULTURE, GROUP B STREP WITH SUSCEPTIBLITY Lab Routine Third trimester ([facility]) Expected: 06/27/2025, Expires: 06/27/2026 [facility] Work Phone: Comment on above: Expected: 06/27/2025 , Expires: 06/27/2026 Start: 06-27-2025 End: 06-27-2025 Patient encounter procedure [facility] Comment on above: Arrived Start: 06-20-2025 End: 06-20-2025 Patient encounter procedure [facility] Comment on above: Arrived Start: 05-30-2025 End: 05-30-2026 US MFM with or without consult US MFM with or without consult Imaging Routine History of placental abruption Hepatitis C virus infection without hepatic coma, unspecified chronicity Expected: 05/30/2025, Expires: 05/30/2026 [facility] Comment on above: Expected: 05/30/2025 , Expires: 05/30/2026 Start: 05-30-2025 End: 05-30-2025 Patient encounter procedure [facility] Start: 05-30-2025 End: 05-30-2025 Professional / ancillary services management 05/30/2025 10:30 AM EDT Ancillary Procedure [facility] [address] [place] [address] [facility] Start: 05-30-2025 Subsequent hospital visit by physician 05/30/2025 9:15 AM EDT Hospital Encounter [facility] [address] [place] [id number] [facility] Start: 05-16-2025 End: 11-16-2025 US biophysical profile w non stress test US biophysical profile w non stress test Imaging Routine H/O [place] History of placental abruption Expected: 05/16/2025 (Approximate), Expires: 11/16/2025 [facility] Work Phone: Comment on above: Expected: 05/16/2025 (Approximate), Expires: 11/16/2025 Start: 05-16-2025 End: 05-16-2025 Patient encounter procedure [facility] Comment on above: Arrived Start: 05-02-2025 End: 05-02-2025 Patient encounter procedure 05/02/2025 3:20 PM EDT Routine [facility] [address] [place] [id number] Mee Pringle, DO [address] [place] [address] [facility] Start: 04-18-2025 End: 08-18-2025 US for US OB follow up transabdominal approach Imaging Routine Second trimester ([facility]) Expected: 04/18/2025, Expires: 08/18/2025 [facility] Work Phone: Comment on above: Expected: 04/18/2025 , Expires: 08/18/2025 Start: 04-18-2025 End: 04-18-2025 Patient encounter procedure 04/18/2025 1:30 PM EDT Routine [facility] [address] [place] [id number] Mee Pringle, DO [address] [place] [address] [facility] Start: 04-06-2025 End: 04-06-2026 ABO/Rh ABO/Rh Lab Routine Missed menses , unspecified gestational age ([facility]) Expected: 04/06/2025 (Approximate), Expires: 04/06/2026 [facility] Comment on above: Expected: 04/06/2025 (Approximate), Expires: 04/06/2026 Start: 04-06-2025 End: 04-06-2026 Blood type and Indirect antibody screen panel - Blood Type and screen Lab Routine Missed menses , unspecified gestational age ([facility]) Expected: 04/06/2025 (Approximate), Expires: 04/06/2026 [facility] Work Phone: Comment on [...] urine Lab Routine , unspecified gestational age ([facility]) Encounter for supervision of normal first in first trimester ([facility]) Expected: 04/06/2025 (Approximate), Expires: 04/06/[facility]26 [facility] Imaging Routine Screening, , for anatomic survey ([facility]) Expected: 04/06/2025, Expires: 07/07/2025 [facility] Comment on above: Expected: 04/06/2025 , Expires: 07/07/2025 Start: 07-02-2024 COVID-19 Vaccine ( season) COVID-19 Vaccine ( season) [facility] Start: 07-02-2024 Influenza vaccination Influenza Vacc ine (#1) [facility] Start: 2022 Screening for malign ant neoplasm of cervix [facility] Start: 07-02-2020 Influenza vaccination Flu vaccine (# 1) [place] Start: 2013 Screening for malign ant neoplasm of cervix Pap Smear [facility] Start: 2011 DTaP,Tdap and Td Vaccines (1 - Tdap) DTaP,Tdap and Td Vaccines (1 - Tdap) [facility] Start: 2010 Adult BMI Follow Up Plan Adult BMI Follow Up Plan [facility] Start: 2010 Adult BMI Screening Adult BMI Screen ing [facility] Start: 2004 Depression Screening Depression Scre ening [facility] Start: 2004 Tobacco Screening Tobacco Screening [facility] Start: 2003 DTaP,Tdap and Td Vaccines (6 - Tdap) DTaP,Tdap and Td Vaccines (6 - Tdap) [facility] End: 05-30-2026 Anti cariolipin AB IgG IgA IgM Anti cariolipin AB IgG IgA IgM Lab Routine History of placental abruption 1 Occurrences starting 05/30/2025 until 05/30/2026 [facility] Comment on above: 1 Occurrences starti ng 05/30/2025 until 05/30/2026 End: 05-30-2026 aPTT in Blood by Coagulation assay APTT Lab Routine History of placental abruption Hepatitis C virus infection without hepatic coma, unspecified chronicity 1 Occurrences starting 05/30/2025 until 05/30/2026 [facility] Comment on above: 1 Occurrences starti ng 05/30/2025 until 05/30/2026 Bacteria identified in Urine by Culture Urine culture Microbiology Routine Missed menses Ordered: 04/06/2025 [facility] Comment on above: Ordered: 04/06/2025 End: 05-30-2026 Beta-2 glycoprotein antibodies Beta-2 glycoprotein antibodies Lab Routine History of placental abruption 1 Occurrences starting 05/30/2025 until 05/30/2026 [facility]: 1 Occurrences starti ng 05/30/2025 until 05/30/2026 CBC W Auto Different ial panel - Blood CBC and differential Lab Routine Missed menses , unspecified gestational age ([facility]) Ordered: 04/06/2025 [facility] [employer] Comment on above: Ordered: 04/06/2025 End: 05-30-2026 Comprehensive metabolic 2000 panel - Serum or Plasma Comprehensive metabolic panel Lab Routine History of placental abruption Hepatitis C virus infection without hepatic coma, unspecified chronicity 1 Occurrences starting 05/30/2025 until 05/30/2026 [employer] Work Phone: Comment on above: 1 Occurrences starti ng 05/30/2025 until 05/30/2026 End: 05-30-2026 DRVVT DRVVT Lab Routine History of placental abruption 1 Occurrences starting 05/30/2025 until 05/30/[facility]: 1 Occurrences starti ng 05/30/2025 until 05/30/2026 Hemoglobin A1c/Hemoglobin.total in Blood Hemoglobin A1c Lab Routine Missed menses , unspecified gestational age ([facility]) Ordered: 04/06/2025 [facility] [employer] Comment on above: Ordered: 04/06/2025 Hemoglobin A1c/Hemoglobin.total in Blood Hemoglobin A1c Lab Routine Diabetes mellitus screening Ordered: 06/07/2025 [employer] Work Phone: Comment on above: Ordered: 06/07/2025 Hepatitis B virus surface Ag [Presence] in Serum or Plasma by Immunoassay Hepatitis B surface antigen Lab Routine Missed menses , unspecified gestational age ([facility]-HCC) Ordered: 04/06/2025 [facility] [employer] Comment on above: Ordered: 04/06/2025 Hepatitis C virus Ab [Presence] in Serum or Plasma by Immunoassay Hepatitis C antibody Lab Routine Missed menses , unspecified gestational age ([facility]-HCC) Ordered: 04/06/2025 [facility] Comment on above: Ordered: 04/06/2025 HIV-1/HIV-2 antigen/antibody combination immunoassay HIV-1 and HIV-2 antibodies Lab Routine Missed menses , unspecified gestational age ([facility]) Ordered: 04/06/2025 [facility] Comment on above: Ordered: 04/06/2025 End: 05-30-2026 Protime & INR Protime & INR Lab Routine History of placental abruption Hepatitis C virus infection without hepatic coma, unspecified chronicity 1 Occurrences starting 05/30/2025 until 05/30/2026 [facility] Comment on above: 1 Occurrences starti ng 05/30/2025 until 05/30/2026 Reagin Ab [Presence] in Serum by RPR RPR Lab Routine Missed menses , unspecified gestational age ([facility]-HCC) Ordered: 04/06/2025 [facility] Comment on above: Ordered: 04/06/2025 Rubella antibody, IgG Rubella an tibody, IgG Lab Routine Missed menses , unspecified gestational age ([facility]-HCC) Ordered: 04/06/2025 [facility] Comment on above: Ordered: 04/06/2025 Payers Date Payer Category Payer Medicaid (Managed Care) [employer] [id number] 2021 Unknown 2019 Unknown [facility] xxxxxxxxxxxx 2019-Present [phone] [address] [place] [id number] xxxxxxxxxxxx [id number] 2019 Unknown [facility] [id number] 2019-Present [phone] [place] [address] [id number]. [id number] 2019 Medicaid HMO [employer] [id number] 1992 Unknown [id number] 2.16.840.1.226558.3.579.2. 173 1992 Unknown [id number] 2.16.840.1.019053.3.579.2. 173 1992 Unknown [id number] 2.16.840.1.507127.3.579.2. 173 1992 Unknown [id number] 2.16.840.1.781659.3.579.2. 173 1992 Unknown [id number] 2.16.840.1.883946.3.579.2. 196 1992 Unknown [id number] 2.16.840.1.901497.3.579.2. 593 1992 Unknown [id number] 2.16.840.1.376612.3.579.2. 593 1992 Unknown [id number] 2.16.840.1.818542.3.579.2. 593 1992 Unknown [id number] 2.16.840.1.620188.3.579.2. 593 1992 Unknown [id number] 2.16.840.1.380375.3.579.2. 593 1992 Unknown [id number] 2.16.840.1.415822.3.579.2. 593 1992 Unknown [id number] 2.16.840.1.843531.3.579.2. 1286 1992 Unknown [id number] 2.16.840.1.884351.3.579.2. 1286 1992 Unknown [id number] 2.16.840.1.893698.3.579.2. 1259 1992 Unknown [id number] 2.16.840.1.764460.3.579.2. 1259 1992 Unknown [id number] 2.16.840.1.643827.3.579.2. 1259 1992 Unknown [id number] 2.16.840.1.994819.3.579.2. 1259 1992 Unknown [id number] 2.16.840.1.936872.3.579.2. 9 1992 Unknown [id number] 2.16.840.1.428517.3.579.2. 1259 1959 Unknown [id number] Social History Date Type Detail Facility Tobacco smoking stat [facility] Unknown if ever smoked [place], [place] Start: 1992 Sex Assigned At Not on file [place] Start: 04-23-2023 End: 05-30-2025 Tobacco smoking status [facility]IS Smokes tobacco daily [facility] History of tobacco use Cigarette Smoker [facility] Start: 04-23-2023 End: 05-30-2025 Tobacco use and exposure Smokeless tobacco non-user [facility] Start: 04-23-2023 End: 06-20-2025 Alcoholic beverage intake Lifetime non-drinker (finding) [facility] Start: 04-23-2023 Tobacco Comment Smokes 6-10 ci garettes per day [facility] Start: 12-12-2020 End: 04-06-2025 Gender identity Not on file [facility] Start: 12-12-2020 End: 04-06-2025 History of Social function [facility] Start: 11-04-2024 [facility] Start: 05-30-2025 Alcoholic beverage intake Ex-drinker (finding) [facility] Childcare Unknown [facility] Start: 06-06-2015 Sex Female (finding) [facility] Start: 05-30-2025 Tobacco smoking stat [facility] Ex-smoker [facility] History of tobacco use Current smoker [facility] Clinical Notes 04-06-2025 to 06-27-2025 CRISTHIAN Sanders - 06/27/2025 9:50 AM EDHelen Aguilar, [facility] - 06/20/2025 2:30 PM EDAshli Lynn, [facility] - 06/07/2025 9:40 AM Clive Raya, [facility] - 05/30/2025 10:30 AM EDT Note Date & Type Note Facility 06-27-2025 History of Present illness Narrative Reason for [...] (HCC) BMI 28.0-28.9,adult Drug abuse, opioid type [place] Encounter for follow-up Encounter for gynecological examination (general) (routine) without abnormal findings Hepatitis C Labial cyst Pain pelvic HISTORY PAST MEDICAL HISTORY SOCIAL HISTORY Past Medical History: Diagnosis Date Abscess of labia Bipolar disorder (HCC) BMI 28.0-28.9,adult Drug abuse, opioid type [place] Encounter for follow-up Encounter for gynecological [...] Vitals: Estimated body mass index is 28.04 kg/m as calculated from the following: Height as of 12/09/22: 5' 5 . Weight as of this encounter: 168 lb 8 oz. BP: 120/76 No LMP recorded. Patient is . ASSESSMENT & PLAN ICD-10-CM 1. Third trimester ([facility]) Z34.93 POCT urinalysis dipstick manually resulted CULTURE, GROUP B STREP WITH SUSCEPTIBLITY CULTURE, GROUP B STREP WITH SUSCEPTIBLITY CANCELED: POCT urinalysis dipstick manually resulted CANCELED: CULTURE, GROUP B STREP WITH SUSCEPTIBLITY CANCELED: CULTURE, GROUP B STREP WITH SUSCEPTIBLITY 2. 35 weeks gestation of ([facility]) Z3A.35 Return OB: Patient is doing well [...] of: CRISTHIAN Sanders documented in this encounter [facility] 06-20-2025 History of Present illness Narrative Reason for [...] (HCC) BMI 28.0-28.9,adult Drug abuse, opioid type [place] Encounter for follow-up Encounter for gynecological examination (general) (routine) without abnormal findings Hepatitis C Labial cyst Pain pelvic HISTORY PAST MEDICAL HISTORY SOCIAL HISTORY Past Medical History: Diagnosis Date Abscess of labia Bipolar disorder (HCC) BMI 28.0-28.9,adult Drug abuse, opioid type [place] Encounter for follow-up Encounter for gynecological [...] nursing note reviewed. Exam conducted with a director check present. Vitals: Estimated body mass index is 28.09 kg/m as calculated from the following: Height as of 12/09/22: 5' 5 . Weight as of this encounter: 168 lb 12.8 oz. BP: 120/80 No LMP recorded. Patient is . ASSESSMENT & PLAN ICD-10-CM 1. 34 weeks gestation of ([facility]) Z3A.34 POCT urinalysis dipstick manually resulted 2. Third trimester ([facility]) Z34.93 POCT urinalysis dipstick manually resulted 3. H/O opioid abuse ([facility] F11.11 4. History of placental abruption Z87.59 [...] this encounter [facility] 06-07-2025 History of Present illness Narrative Reason [...] (HCC) BMI 28.0-28.9,adult Drug abuse, opioid type [place] Encounter for follow-up Encounter for gynecological examination (general) (routine) without abnormal findings Labial cyst Pain pelvic HISTORY PAST MEDICAL HISTORY SOCIAL HISTORY Past Medical History: Diagnosis Date Abscess of labia Bipolar disorder (HCC) BMI 28.0-28.9,adult Drug abuse, opioid type [place] Encounter for follow-up Encounter for gynecological [...] nursing note reviewed. Exam conducted with a director check present. Vitals: Estimated body mass index is 27.46 kg/m as calculated from the following: Height as of 12/09/22: 5' 5 . Weight as of this encounter: 165 lb. BP: 118/74 No LMP recorded. Patient is . ASSESSMENT & PLAN ICD-10-CM 1. Third trimester ([facility]) Z34.93 POCT urinalysis dipstick manually resulted 2. 32 weeks gestation of ([facility]) Z3A.32 3. H/O opioid abuse ([facility] F11.11 4. History of placental abruption Z87.59 [...] this encounter [facility] 05-30-2025 History of Present illness Narrative Headache/epigastric [...] No Have you been seen here at [facility] in a previous ? No Recent ER visits or hospitalizations? No Bring blood sugar log or meter with you today? (Please bring them with you for every visit at [facility]) N/A Flu vaccine (Sep-December)? N/A Any [...] intensive care unit. The overall risk of Cvjifrhb-Vo-Otoft-Transmission (MTCT) during is approximately 4-8%. If the [...] C infection until after 18 months. The [place] [employer] and CDC recommend screening [...] and counseling, coordination of care which was [id number]. [facility] History of Present illness Narrative Reason [...] Diagnosis Date Abscess of labia Bipolar disorder ([facility]) BMI 28.0-28.9,adult Drug abuse, opioid type [place] Encounter for follow-up Encounter for gynecological examination (general) (routine) without abnormal findings Labial cyst Pain pelvic HISTORY PAST MEDICAL HISTORY SOCIAL HISTORY Past Medical History: Diagnosis Date Abscess of labia Bipolar disorder ([facility]) BMI 28.0-28.9,adult Drug abuse, opioid type [place] Encounter for follow-up Encounter for gynecological [...] nursing note reviewed. Exam conducted with a director check present. Vitals: Estimated body mass index is 26.46 kg/m as calculated from the following: Height as of 12/09/22: 5' 5 . Weight as of this encounter: 159 lb. BP: 110/70 No LMP recorded. Patient is . ASSESSMENT & PLAN ICD-10-CM 1. 29 weeks gestation of ([facility]) Z3A.29 POCT urinalysis dipstick manually resulted 2. Third trimester ([facility]) Z34.93 POCT urinalysis dipstick manually resulted 3. Request for sterilization Z30.2 4. H/O opioid abuse ([facility] F11.11 5. History of placental abruption [...] (HCC) BMI 28.0-28.9,adult Drug abuse, opioid type ([facility] Encounter for follow-up Encounter for gynecological examination (general) (routine) without abnormal findings Labial cyst Pain pelvic HISTORY PAST MEDICAL HISTORY SOCIAL HISTORY Past Medical History: Diagnosis Date Abscess of labia Bipolar disorder (HCC) BMI 28.0-28.9,adult Drug abuse, opioid type [place] Encounter for follow-up Encounter for gynecological [...] nursing note reviewed. Exam conducted with a director check present. Vitals: Estimated body mass index is 26.26 kg/m as calculated from the following: Height as of 12/09/22: 5' 5 . Weight as of this encounter: 157 lb 12.8 oz. BP: 104/70 No LMP recorded. Patient is . ASSESSMENT & PLAN ICD-10-CM 1. Second trimester ([facility]) Z34.92 2. 27 weeks gestation of ([facility]) Z3A.27 3. Request for sterilization Z30.2 4. H/O opioid abuse ([facility] F11.11 5. History of placental abruption [...] Diagnosis Date Abscess of labia Bipolar disorder ([facility]) BMI 28.0-28.9,adult Drug abuse, opioid type [place] Encounter for follow-up Encounter for gynecological examination (general) (routine) without abnormal findings Labial cyst Pain pelvic HISTORY PAST MEDICAL HISTORY SOCIAL HISTORY Past Medical History: Diagnosis Date Abscess of labia Bipolar disorder ([facility]) BMI 28.0-28.9,adult Drug abuse, opioid type [place] Encounter for follow-up Encounter for gynecological [...] nursing note reviewed. Exam conducted with a director check present. Vitals: Estimated body mass index is 25.79 kg/m as calculated from the following: Height as of 12/09/22: 5' 5 . Weight as of this encounter: 155 lb. BP: 112/64 No LMP recorded. Patient is . ASSESSMENT & PLAN ICD-10-CM 1. Second trimester ([facility]) Z34.92 POCT urinalysis dipstick manually resulted 2. 25 weeks gestation of ([facility]) Z3A.25 Return OB: Patient presents today for [...] Diagnosis Date Abscess of labia Bipolar disorder ([facility]) BMI 28.0-28.9,adult Drug abuse, opioid type ([facility] Encounter for follow-up Encounter for gynecological [...] dipstick manually resulted , unspecified gestational age ([facility]) - Type and screen; Future - ABO/Rh; Future - CBC and differential - Hemoglobin A1c - RPR - Rubella antibody, IgG - Hepatitis B surface antigen - Hepatitis C antibody - HIV-1 and HIV-2 antibodies - Rapid drug screen, urine; Future Encounter for supervision of normal first in first trimester ([facility]) - Rapid drug screen, urine; Future Screening, , for anatomic survey ([facility]) - OB 14+ weeks anatomy scan; Future Diabetes mellitus screening - CBC; Future - Glucose tolerance, 1 hour; Future headache in second trimester ([facility]) - magnesium oxide (Mag-Ox) 400 MG tablet; [...] or undercooked meat, and stay away from [facility]. Patient has also been advised to not [...] Diagnosis Missed menses , unspecified gestational age ([facility]) Encounter for supervision of normal first in first trimester ([facility]-HCC) Screening, , for anatomic survey ([facility]HCC) Encounter for anatomic survey Diabetes mellitus screening Screening for diabetes mellitus headache in second trimester ([facility]) [facility] Second trimester ([facility]) state, incidental 25 weeks gestation of ([facility]) [facility] [...] unspecified chronicity [facility] Third trimester ([facility]) state, incidental 32 weeks gestation of ([facility]) H/O opioid abuse (CMS-HCC) History of placental abruption Diabetes mellitus screening Screening for diabetes mellitus [facility] Diagnosis 34 weeks gestation of ([facility]) Third trimester ([facility]) state, incidental H/O opioid abuse (CMS-HCC) History of placental abruption Hepatitis C virus infection without hepatic coma, unspecified chronicity [facility] Diagnosis Third trimester ([facility]) state, incidental 35 weeks gestation of ([facility]) documented in this encounter [facility]InstructionsNot on filedocumented in this encounterPro[facility] SystemInstructionsNot on filedocumented in this encounterProMedica Health SystemInstructionsNot on filedocumented in this encounterProPro[facility] Summary Purpose Family History No Family History Records FoundNo Family History Records FoundNo Family History Records FoundNo Family History Records FoundNo Family History Records FoundNo Family History Records Found Advance Directives Documents on File Type Date Recorded Patient Manufacturer Representative Expl anation Advance Directives and Living Will Power of It Portfolio Manager Documents on File Type Date Recorded Patient Manufacturer Representative Expl anation ACP-Advance Directive ACP-Power of It Portfolio Manager Additional Source Comments INFORMATION SOURCE (unrecogn ized section and content) DATE CREATED AUTHOR 10/10/2018 [facility] DATE CREATED AUTHOR AUTHOR'S ORGANIZ ATION 12/06/2020 [facility] DATE CREATED AUTHOR AUTHOR'S ORGANIZ ATION 03/29/2021 [facility] DATE CREATED AUTHOR AUTHOR'S ORGANIZ ATION 12/10/2022 [facility] pital DATE CREATED AUTHOR AUTHOR'S ORGANIZ ATION 06/01/2025 [facility] DATE CREATED AUTHOR AUTHOR'S ORGANIZ ATION 06/22/2025 [facility] EPIC Reason for Visit (unrecogniz ed section and content) Reason Comments Amenorrhea Reason Comments Routine Visit Reason Comments Hepatitis C Current Everyday Smoker Care Teams (unrecognized sec tion and content) Manager Clinical Services Relationship Specialty Start Date End Date No Pcp, [place] [address] PCP - General Family Medicine 04/27/20 Manager Clinical Services Relationship Specialty Start Date End Date No Pcp, [place] [address] PCP - General Family Medicine 04/27/20 Manager Clinical Services Relationship Specialty Start Date End Date No Pcp, [place] [address] PCP - General Family Medicine 04/27/20 FOR [...] BE BASED ON THE PRIMARY CLINICAL RECORDS. [facility]. provides no warranty or guarantee of the accuracy or completeness of information in this document.
== END 2025-06-27 14:44 | disposition home or self-care (01) ==
LOC: LAB 14:43
PROVIDERS: PCP Nurse Practitioner Family; Visit Provider Physician Assistant
DX: Z34.93 Encounter for supervision of normal pregnancy, unspecified, third trimester (principal); Z3A.35 35 weeks gestation of pregnancy
CPT/HCPCS: 87081

== ENCOUNTER 2025-06-28 10:55 | Outpatient (OUT) | payer OTHER, SELFPAY ==
--- OUTSIDE RECORDS SUMMARY | 2025-06-28 11:08 | XMS_ITS | CCD ---
Author Organization [facility] Care Team Providers Care Dress Fitter Name Role Phone Sidney Nava Unavailable Unavailable [...] PRINGLE Attending Unavailable YARYMEE TRISTAN Attending Unavailable YARYEME TRISTAN Attending Unavailable Allergies Allergy Classification Reported Allergen(s) Allergy Type Date of Onset Reaction(s) Facility (2 sources) Penicillins; Translations: [PENICILLINS] Drug allergy (disorder) 3 [facility] Repository (20 sources) Penicillin G Drug Allergy 5 [facility] Work Phone: (3 sources) Penicillins Propensity to adverse reactions to drug 0 [facility] (11 sources) Penicillins Propensity to [...] Other penitentiary (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 therapy; Translations: [OTH [facility] CURRENT [...] UA Negative Negative - 4(70) +++ mg/dL [facility] Blood, UA Negative Negative - 50 Amador/mcL [facility] Clarity, UA Clear [facility] Color, UA Yellow [facility] Glucose, UA Negative Negative - 1999(110) ++++ mg/dL [facility] Interpretation and review of laboratory results Abnormal [facility] Ketones, UA Negative Negative - 160(16) ++++ mg/dL [facility] Leukocytes, UA Positive Negative - 500+++ Camille/mcL [facility] Comment on above: Trace Nitrite, UA Negative Negative - Positive [facility] pH, UA 6.5 5 - 9 [facility] Protein, UA Negative Negative - 1999(20) ++++ mg/dL [facility] Spec Grav, UA 1005 1 - 1.03 [facility] Urobilinogen, UA 0.2 0.2 - 12 mg/dL [facility] Urinalysis macro (dipstick) panel (U)on 06-20-2025 Bilirubin, UA Negative Negative - 4(70) +++ mg/dL [facility] Blood, UA Negative Negative - 50 Amador/mcL [facility] Clarity, UA Clear [facility] Color, UA Yellow [facility] Glucose, UA Negative Negative - 1999(110) ++++ mg/dL [facility] Interpretation and review of laboratory results Abnormal [facility] Ketones, UA Negative Negative - 160(16) ++++ mg/dL [facility] Leukocytes, UA Positive Negative - 500+++ Camille/mcL [facility] Nitrite, UA Negative Negative - Positive [facility] pH, UA 6.5 5 - 9 [facility] Protein, UA Negative Negative - 1999(20) ++++ mg/dL [facility] Spec Grav, UA 1.01 1 - 1.03 [facility] Urobilinogen, UA 1.0 0.2 - 12 mg/dL [facility]AN/CATCH) SECURITY OPERATIONS MANAGER/DEMETRA RO IF IND.on 06-14-2025 BILIRUBIN URINE Negative NEGATIVE [facility] BLOOD URINE Negative NEGATIVE [facility] Clarity (U) CLEAR CLEAR [facility] Color (U) LT. YELLOW YELLOW [facility] GLUCOSE URINE UA Negative NEGATIVE mg/dL [facility] Interpretation and review of laboratory results Abnormal [facility] Ketones Ql (U) Negative NEGATIVE mg/dL [facility] Leukocyte esterase Test strip Ql (U) TRACE Abnormal NEGATIVE [facility] NITRITE URINE Negative NEGATIVE [facility] pH (U) 7.0 [pH] 5.0 - 9.0 [facility] PROTEIN URINE Negative NEG/TRACE mg/dL [facility] SPECIFIC GRAVITY URINE <=1.005 Abnormal 1.005 - 1.025 [facility] URINE MICROSCOPIC INDICATED YES [facility] UROBILINOGEN URINE 0.2 EU/dL 0.2 - 1.0 EU/dL [facility] US OB BPP W NON-STRESS on 06-11-2025 [place] [address] Ultrasound Report Signed Patient: CARMELITA CASON MR#: [id number] : 1990 Acct:[id number] Age/Sex: 34 / F ADM Date: 06/11/25 Loc: US Attending Dr: Mee Pringle D.O. Ordering Physician: Mee Pringle D.O. Date of Service: 06/11/25 Procedure(s): US OB BPP w non-stress Accession Number(s): [id number] cc: ROMEO GAR ; Mee Pringle D.O. [address] [address] Patient Name: CARMELITA CASON MRN: [id number]:[id number] date: 1990 Sex: F Assigned Patient Location: [facility] Current Patient Location: Accession/Order Number: [id number] Exam Date: 06/11/2025 11:44 Report Date: 06/11/2025 11:45 At the request of: MEE PRINGLE DO Procedure: US OB BPP w non-stress Biophysical profile. Reason for exam: History of placental abruption COMPARISON: 06/05/2025 TECHNIQUE: Transabdominal imaging of the gravid uterus was obtained. FINDINGS: The clinical laboratory technician reports a BPP of 8 out of 8. ELIZABETH is normal at 21.3 cm. heart rate 142 bpm. US/US OB BPP w non-stress IMPRESSION: BPP 8 out of 8. Impression dictated by: Serafin Sorto Jr., D.O. 06/11/2025 11:45 AM Dictation Location: [place] [address] Electronically authenticated by: [id number] Y Date: 06/11/2025 11:45 Dictated By: Serafin Sorto M.D. Signed By: 06/11/25 1148 DD/ 1145 TD/TT: Keyboard Instrument Tuner: [facility] Radiology, Radiologist, MD - 06/11/2025 [place] [address] Ultrasound Report Signed Patient: CARMELITA CASON MR#: [id number] : 1990 Acct:[id number] Age/Sex: 34 / F ADM Date: 06/11/25 Loc: US Attending Dr: Mee Pringle D.O. Ordering Physician: Mee Pringle D.O. Date of Service: 06/11/25 Procedure(s): US OB BPP w non-stress Accession Number(s): [id number] cc: ROMEO GAR ; Mee Pringle D.O. The [address] [address] Patient Name: CARMELITA CASON MRN: [facility]:[id number] date: 1990 Sex: F Assigned Patient Location: [facility] Current Patient Location: Accession/Order Number: [id number] Exam Date: 06/11/2025 11:44 Report Date: 06/11/2025 11:45 At the request of: MEE PRINGLE DO Procedure: US OB BPP w non-stress Biophysical profile. Reason for exam: History of placental abruption COMPARISON: 06/05/2025 TECHNIQUE: Transabdominal imaging of the gravid uterus was obtained. FINDINGS: The clinical laboratory technician reports a BPP of 8 out of 8. ELIZABETH is normal at 21.3 cm. heart rate 142 bpm. US/US OB BPP w non-stress IMPRESSION: BPP 8 out of 8. Impression dictated by: Serafin Sorto Jr., D.O. 06/11/2025 11:45 AM Dictation Location: [facility] Electronically authenticated by: [id number] Y Date: 06/11/2025 11:45 Dictated By: Serafin Sorto M.D. Signed By: 06/11/25 1148 DD/ 1145 TD/TT: Keyboard Instrument Tuner: [facility] Radiology Study observation (narrative) [facility] US OB BPP W NON-STRESS Ordered By: Radiologist Radiology on 06-11-2025 [facility] Work Phone: MLR HEMOGLOBIN A1Con 025 Glucose [Mass/Vol] 85 mg/dL [facility] HbA1c (Bld) [Mass fraction] 4.6 % 4.5 - 6.2 % [facility] Comment on above: ADA RECOMMENDED LIMI T 4.0 - 6.0 ADA THERAPEUTIC TARGET < 7.0 ACTION SUGGESTED > 7.0 [facility] Urinalysis macro (dipstick) panel (U)on 06-07-2025 Bilirubin, UA Negative Negative - 4(70) +++ mg/dL [facility] Blood, UA Negative Negative - 50 Amador/mcL [facility] Clarity, UA Clear [facility] Color, UA Yellow [facility] Glucose, UA Negative Negative - 1999(110) ++++ mg/dL [facility] Interpretation and review of laboratory results Abnormal [facility] Ketones, UA Negative Negative - 160(16) ++++ mg/dL [facility] Leukocytes, UA 3+ Negative - 500+++ Camille/mcL [facility] Nitrite, UA Negative Negative - Positive [facility] pH, UA 7.5 5 - 9 [facility] Protein, UA Negative Negative - 2000(20) ++++ mg/dL [facility] Spec Grav, UA 1.01 1 - 1.03 [facility] Urobilinogen, UA 1.0 0.2 - 12 mg/dL [facility] US OB BPP W NON-STRESS on 06-05-2025 [place] [address] Ultrasound Report Signed Patient: CARMELITA CASON MR#: [id number] : 1990 Acct:[id number] Age/Sex: 34 / F ADM Date: 06/05/25 Loc: US Attending Dr: Mee Pringle D.O. Ordering Physician: Mee Pringle D.O. Date of Service: 06/05/25 Procedure(s): US OB BPP w non-stress Accession Number(s): [id number] cc: ROMEO GAR ; Mee Pringle D.O. [place] [address] Patient Name: CARMELITA CASON MRN: [id number]:[id number] date: 1990 Sex: F Assigned Patient Location: US Current Patient Location: Accession/Order Number: [id number] Exam Date: 06/05/2025 11:53 Report Date: 06/05/2025 12:03 At the request of: MEE PRINGLE DO Procedure: US OB BPP w non-stress Biophysical profile. Reason for exam: History of opioid abuse COMPARISON: None TECHNIQUE: Transabdominal imaging of the gravid uterus was obtained. FINDINGS: The clinical laboratory technician reports a BPP of 8 out of 8. ELIZABETH is normal at 21 cm. heart rate 135 bpm. US/US OB BPP w non-stress IMPRESSION: BPP 8 out of 8. Impression dictated by: Serafin Sorto Jr., D.O. 06/05/2025 12:03 PM Dictation Location[facility] Electronically authenticated by: [id number] Y Date: 06/05/2025 12:03 Dictated By: Serafin Sorto M.D. Signed By: 06/05/25 1206 DD/ 02 TD/TT: Keyboard Instrument Tuner: [facility] Radiology, Radiologist, - 06/05/2025 The [place] [id number] Ultrasound Report Signed Patient: CARMELITA CASON MR#: [id number] : 1990 Acct:[id number] Age/Sex: 34 / F ADM Date: 06/05/25 Loc: US Attending Dr: Mee Pringle D.O. Ordering Physician: Mee Pringle D.O. Date of Service: 06/05/25 Procedure(s): US OB BPP w non-stress Accession Number(s): [id number] cc: ROMEO GAR ; Mee Pringle D.O. The [place] [address] Patient Name: CARMELITA CASON MRN: [facility]:[id number] date: 1990 Sex: F Assigned Patient Location: US Current Patient Location: Accession/Order Number: [id number] Exam Date: 06/05/2025 11:53 Report Date: 06/05/2025 12:03 At the request of: MEE PRINGLE DO Procedure: US OB BPP w non-stress Biophysical profile. Reason for exam: History of opioid abuse COMPARISON: None TECHNIQUE: Transabdominal imaging of the gravid uterus was obtained. FINDINGS: The clinical laboratory technician reports a BPP of 8 out of 8. ELIZABETH is normal at 21 cm. heart rate 135 bpm. US/US OB BPP w non-stress IMPRESSION: BPP 8 out of 8. Impression dictated by: Serafin Sorto Jr., D.O. 06/05/2025 12:03 PM Dictation Location: [facility] Electronically authenticated by: [id number] Y Date: 06/05/2025 12:03 Dictated By: Serafin Sorto M.D. Signed By: 06/05/251205 DD/ 02 TD/TT: Keyboard Instrument Tuner: [facility] Radiology Study observation (narrative) [facility] US OB BPP W NON-STRESS Ordered By: Radiologist Radiology on 06-05-2025 [facility] Work Phone: CBC without diffOrdered By: Paradise Raya on 05-21-2025 Hematocrit (Bld) [Volume fraction] 30.6 % [facility] Hemoglobin (Bld) [Mass/Vol] 10.8 g/dL [facility] Platelets (Bld) [#/Vol] 176 10*3/uL [facility] Rbc Mcv (Fl) By Automated Count 79.3 [facility] Drug Screen, Urineon 025 Amphetamine/Methamphet amine Negative [facility] Barbiturates Negative [facility] Benzodiazepines Negative [facility] Cocaine Metabolite Negative [facility] Methadone Negative [facility] Opiates Negative [facility] Oxycodone Negative [facility] Phencyclidine Negative [facility] Thc Marijuana, Urine Negative [facility] HBV surface Ag IA Qlon 05-21 Hepatitis B Surface Antigen Negative [facility] HCV Ab IA Qlon 05-21-2025 HCV Ab Ql (S) Reactive [facility] HIV 1+2 Ab+HIV1 p24 Ag IA Ql on 05-21-2025 HIV 1&2 AB/AG Non-Reactive [facility] Hemoglobin A1con 05-21-2025 HbA1c (Bld) [Mass fraction] 4.7 % 4.0 - 6.0 % [facility] No Panel Informationon 05-21 [facility] Rubella IGG immune statuson 05-21-2025 Rubella immune IgG [facility] T. pallidum IgG+IgM IA Ql (S )on 05-21-2025 Syphilis Non-Reactive [facility] DRUG SCREEN RAPID (URINE )on 05-21-2025 AMPHETAMINE SCREEN URINE Negative NEGATIVE [facility] BARBITURATES SCREEN URINE Negative NEGATIVE [facility] BENZODIAZEPINES SCREEN URINE Negative NEGATIVE [facility] BUPRENORPHINE SCREEN URINE Positive Abnormal NEGATIVE [facility] Comment on above: DRUG CLASS TEST SYST [...] 300 ng/mL CANNABINOID SCREEN URINE Negative NEGATIVE [facility] COCAINE SCREEN URINE Negative NEGATIVE [facility] Interpretation and review of laboratory results Abnormal [facility] METHADONE SCREEN URINE Negative NEGATIVE NO [facility] METHAMPHETAMINES SCREEN URINE Negative NEGATIVE [facility] OPIATE SCREEN URINE Negative NEGATIVE [facility] OXYCODONE SCREEN URINE Negative NEGATIVE NO [facility] PHENCYCLIDINE SCREEN URINE Negative NEGATIVE [facility] TRICYCLIC ANTIDEPRESSANT URINE Negative NEGATIVE [facility] Type and screenon 05-21-2025 Abo/Rh(D) Positive [facility] Urinalysis macro (dipstick) panel (U)on 05-16-2025 Bilirubin, UA Negative Negative - 4(70) +++ mg/dL [facility] Blood, UA Negative Negative - 50 Amador/mcL [facility] Clarity, UA Clear [facility] Color, UA Yellow [facility] Glucose, UA Negative Negative - 1999(110) ++++ mg/dL [facility] Interpretation and review of laboratory results Abnormal [facility] Ketones, UA Negative Negative - 160(16) ++++ mg/dL [facility] Leukocytes, UA Moderate Negative - 500+++ Camille/mcL [facility] Nitrite, UA Negative Negative - Positive [facility] pH, UA 6.5 5 - 9 [facility] Protein, UA Negative Negative - 1999(20) ++++ mg/dL [facility] Spec Grav, UA 1.02 1 - 1.03 [facility] Urobilinogen, UA 1.0 0.2 - 12 mg/dL [facility] Urinalysis macro (dipstick) panel (U)on 04-18-2025 Bilirubin, UA Negative Negative - 4(70) +++ mg/dL [facility] Blood, UA Negative Negative - 50 Amador/mcL [facility] Clarity, UA Clear [facility] Color, UA Yellow [facility] Glucose, UA Negative Negative - 1999(110) ++++ mg/dL [facility] Interpretation and review of laboratory results Abnormal [facility] Ketones, UA Negative Negative - 160(16) ++++ mg/dL [facility] Leukocytes, UA Positive Negative - 500+++ Camille/mcL [facility] Nitrite, UA Negative Negative - Positive [facility] pH, UA 7.5 5 - 9 [facility] Protein, UA Negative Negative - 2000(20) ++++ mg/dL [facility] Spec Grav, UA 1.015 1 - 1.03 [facility] Urobilinogen, UA 0.2 0.2 - 12 mg/dL [facility] No Panel InformationOrdered By: Radiologist Radiology on 04-09-2025 [facility] Work Phone: No Panel Informationon 04-09 Radiology Study observation (narrative) [facility] US OB ANATOMYon 04-09-[address] [address] Ultrasound Report Signed Patient: CARMELITA CASON MR#: [id number] : 1990 Acct:[id number] Age/Sex: 34 / F ADM Date: 04/09/25 Loc: US Attending Dr: Paradise Olvera Ordering Physician: Paradise Olvera Date of Service: 04/09/25 Procedure(s): US OB anatomy Accession Number(s): [id number] cc: Paradise Olvera; ROMEO GAR [address] [address] Patient Name: CARMELITA CASON MRN: [id number] date: 1990 Sex: F Assigned Patient Location: US Current Patient Location: US Accession/Order Number: [id number] Exam Date: 04/09/2025 12:20 Report Date: 04/09/2025 [...] all 4 extremities were surveyed by the clinical laboratory technician. No abnormalities were detected. The stomach, [...] Zelaya M.D. 04/09/2025 1:01 PM Dictation Location: [place] [address] Electronically authenticated by: [id number] Y Date: 04/09/2025 13:01 Dictated By: Raine Zelaya M.D. Signed By: 04/09/25 1304 DD/ 1301 TD/TT: Keyboard Instrument Tuner: [facility] Radiology, Radiologist, MD - 04/09/2025 [place] [address] Ultrasound Report Signed Patient: CARMELITA CASON MR#: [id number] : 1990 Acct:[id number] Age/Sex: 34 / F ADM Date: 04/09/25 Loc: US Attending Dr: Paradise Olvera Ordering Physician: Paradise Olvera Date of Service: 04/09/25 Procedure(s): US OB anatomy Accession Number(s): [id number] cc: Paradise Olvera; ROMEO GAR The [place] [address] Patient Name: CARMELITA CASON MRN: [id number] date: 1990 Sex: F Assigned Patient Location: Current Patient Location: US Accession/Order Number: [id number] Exam Date: 04/09/2025 12:20 Report Date: 04/09/2025 [...] all 4 extremities were surveyed by the clinical laboratory technician. No abnormalities were detected. The stomach, [...] Zelaya M.D. 04/09/2025 1:01 PM Dictation Location: [place] [address] Electronically authenticated by: [id number] Y Date: 04/09/2025 13:01 Dictated By: Raine Zelaya M.D. Signed By: 04/09/25 1304 DD/ 1301 TD/TT: Keyboard Instrument Tuner: [facility] OB CERVICAL LENGTHon [address] [address] Ultrasound Report Signed Patient: CARMELITA CASON MR#: [id number] : 1990 Acct:[id number] Age/Sex: 34 / F ADM Date: 04/09/25 Loc: US Attending Dr: Paradise Olvera Ordering Physician: Paradise Olvera Date of Service: 04/09/25 Procedure(s): US OB cervical length Accession Number(s): [id number] cc: Paradise Olvera; ROMEO GAR [address] [address] Patient Name: CARMELITA CASON MRN: [id number] date: 1990 Sex: F Assigned Patient Location: US Current Patient Location: US Accession/Order Number: [id number] Exam Date: 04/09/2025 12:20 Report Date: 04/09/2025 [...] all 4 extremities were surveyed by the clinical laboratory technician. No abnormalities were detected. The stomach, [...] Zelaya M.D. 04/09/2025 1:01 PM Dictation Location: [place] [address] Electronically authenticated by: [id number] Y Date: 04/09/2025 13:01 Dictated By: Raine Zelaya M.D. Signed By: 04/09/25 1304 DD/ 1301 TD/TT: Keyboard Instrument Tuner: [facility] Radiology, Radiologist, MD - 04/09/2025 [place] [address] Ultrasound Report Signed Patient: CARMELITA CASON MR#: [id number] : 1990 Acct:[id number] Age/Sex: 34 / F ADM Date: 04/09/25 Loc: US Attending Dr: Paradise Olvera Ordering Physician: Paradise Olvera Date of Service: 04/09/25 Procedure(s): US OB cervical length Accession Number(s): [id number] cc: Paradise Olvera; ROMEO GAR The [place] [id number] Patient Name: CARMELITA CASON MRN: [facility]:[id number] date: 1990 Sex: F Assigned Patient Location: Current Patient Location: US Accession/Order Number: [id number] Exam Date: 04/09/2025 12:20 Report Date: 04/09/2025 [...] all 4 extremities were surveyed by the clinical laboratory technician. No abnormalities were detected. The stomach, [...] Zelaya M.D. 04/09/2025 1:01 PM Dictation Location: [place] [address] Electronically authenticated by: [id number] Y Date: 04/09/2025 13:01 Dictated By: Raine Zelaya M.D. Signed By: 04/09/25 1304 DD/ 1301 TD/TT: Keyboard Instrument Tuner: [facility] HCG ( test) Ql (U)O rdered By: Arabella Hill on 04-06-2025 Interpretation and review of laboratory results Abnormal [facility] Preg Test, Ur Positive Negative [facility] Urinalysis macro (dipstick) panel (U)on 04-06-2025 Bilirubin, UA Negative Negative - 4(70) +++ mg/dL [facility] Blood, UA Negative Negative - 50 Amador/mcL [facility] Clarity, UA Clear [facility] Color, UA Yellow [facility] Glucose, UA Negative Negative - 2000(110) ++++ mg/dL [facility] Interpretation and review of laboratory results Normal [facility] Ketones, UA Negative Negative - 160(16) ++++ mg/dL [facility] Leukocytes, UA Negative Negative - 500+++ Camille/mcL [facility] Nitrite, UA Negative Negative - Positive [facility] pH, UA 6.5 5 - 9 [facility] Protein, UA Negative Negative - 2000(20) ++++ mg/dL [facility] Spec Grav, UA 1.02 1 - 1.03 [facility] Urobilinogen, UA 1.0 0.2 - 12 mg/dL [facility] US OB L= 14 [place] [address] Ultrasound Report Signed Patient: CARMELITA CASON MR#: [id number] : 1990 Acct:[id number] Age/Sex: 34 / F ADM Date: 01/22/25 Loc: US Attending Dr: Mee Pringle D.O. Ordering Physician: Mee Pringle D.O. Date of Service: 01/22/25 Procedure(s): US OB <= 14 weeks fetus Accession Number(s): [id number] cc: ROMEO GAR ; Mee Pringle D.O. [place] [address] Patient Name: CARMELITA CASON MRN: [id number] date: 1990 Sex: F Assigned Patient Location: Current Patient Location: US Accession/Order Number: [id number] Exam Date: 01/22/2025 14:49 Report Date: 01/22/2025 [...] Sorto Jr., D.O.01/22/2025 2:50 PM Dictation Location: [place] [address] Electronically authenticated by: [id number] Y Date: 01/22/2025 14:50 Dictated By: Serafin Sorto M.D. Signed By: 01/22/25 1453 DD/ 1450 TD/TT: Keyboard Instrument Tuner: [facility] Radiology, Radiologist, MD - 01/22/2025 [place] [address] Ultrasound Report Signed Patient: CARMELITA CASON MR#: [id number] : 1990 Acct:[id number] Age/Sex: 34 / F ADM Date: 01/22/25 Loc: US Attending Dr: Mee Pringle D.O. Ordering Physician: Mee Pringle D.O. Date of Service: 01/22/25 Procedure(s): US OB <= 14 weeks fetus Accession Number(s): [id number] cc: ROMEO GAR ; Mee Pringle D.O. The [place] [address] Patient Name: CARMELITA CASON MRN: [facility]:[id number] date: 1990 Sex: F Assigned Patient Location: Current Patient Location: US Accession/Order Number: [id number] Exam Date: 01/22/2025 14:49 Report Date: 01/22/2025 [...] Sorto Jr., D.O.01/22/2025 2:50 PM Dictation Location: [facility] Electronically authenticated by: [id number] Y Date: 01/22/2025 14:50 Dictated By: Serafin Sorto M.D. Signed By: 01/22/25 1453 DD/ 49 TD/TT: Keyboard Instrument Tuner: [facility] Radiology Study observation (narrative) [facility] US OB L= 14 WEEKS FETUSOrder ed By: Radiologist Radiology on 01-22-2025 [facility] Work Phone: [facility] PREG QUANT HCGon 025 HCG QUANTITATIVE 3026 mIU/mL [facility] Comment on above: 5-50 0.2-1 WEEK 50-500 1-2 WEEKS 100-5,000 2-3 WEEKS 500-10,000 3-4 WEEKS 1,000-50,000 4-5 WEEKS 10,000-100,000 5-6 WEEKS 15,000-200,000 6-8 WEEKS 10,000-100,000 2-3 MONTHS [facility] COMPLIANCE DRUG SCREENon PDF . Normal [facility] Comment on above: Performed By: #### D LAOAL #### [facility] [address] [place] [address] Dr. Roberto Parmar Summary FINAL Normal [facility] Comment on above: Result Comment: ===== [...] is an expected metabolite of dextromethorphan, an bfmh-dky-kycdgod or prescription cough suppressant. Levorphanol is a scheduled prescription medication. Dextrorphan cannot be distinguished from levorphanol by the method used for analysis. Guaifenesin PRESENT UNEXPECTED Guaifenesin may be administered as an scwc-lvl-pdlizam or prescription drug; it may also be [...] ===== Performed By: #### D SDOALC #### [facility] [address] [place] [address] Dr. Roberto Parmar URIC ACID RAND URINEon 09-03 Uric Acid, Urine 12.4 mg/dL Normal Not Estab. The [facility] Comment on above: Performed By: #### U RICSOURAV #### [facility] [address] [place] [address] Dr. Roberto Parmar DRUG SCREEN RAPID (URINE)on 09-02-2022 AMP Negative Normal NEGATIVE [facility] Comment on above: Performed By: #### D RUGRPD #### [facility] [address] [place] [address] Dr. Roberto Parmar BAR Negative Normal NEGATIVE [facility] Comment on above: Performed By: #### D RUGRPD #### [facility] [address] [place] [address] Dr. Roberto Parmar BUP Positive Abnormal NEGATIVE [facility] Comment on above: Performed By: #### D RUGRPD #### [facility] [address] [place] [address] Dr. Roberto Parmar BZO Positive Abnormal NEGATIVE [facility] Comment on above: Performed By: #### D RUGRPD #### [facility] [address] [place] [address] Dr. Roberto Parmar BRITTANY Negative Normal NEGATIVE [facility] Comment on above: Performed By: #### D RUGRPD #### [facility] [address] [place] [address] Dr. Roberto Parmar CUT-OFFS SEE BELOW Normal [facility] Comment on above: Result Comment: AMP [...] ng/mL Performed By: #### D RUGRPD #### [facility] [address] [place] [address] Dr. Roberto Parmar DRUG CUT HEADER DRUG CLASS TEST SYSTEM CUT-OFF CONCENTRATIONS ARE FOLLOWS: Normal [facility] Comment on above: Performed By: #### D RUGRPD #### [facility] [address] [place] [address] Dr. Roberto Parmar mAMP Negative Normal NEGATIVE [facility] Comment on above: Performed By: #### D RUGRPD #### [facility] [address] [place] [address] Dr. Roberto Parmar MTD Negative Normal NEGATIVE [facility] Comment on above: Performed By: #### D RUGRPD #### [facility] [address] [place] [address] Dr. Roberto Parmar OPI Negative Normal NEGATIVE [facility] Comment on above: Performed By: #### D RUGRPD #### [facility] [address] [place] [address] Dr. Roberto Parmar OXY Negative Normal NEGATIVE [facility] Comment on above: Performed By: #### D RUGRPD #### [facility] [address] [address] [address] Roberto Parmar PCP Negative Normal NEGATIVE [facility] Comment on above: Performed By: #### D RUGRPD #### [facility] [address] [address] [address] Roberto Parmar PPX Negative Normal NEGATIVE [facility] Comment on above: Performed By: #### D RUGRPD #### [facility] [address] [address] [address] Roberto Parmar TCA Negative Normal NEGATIVE [facility] Comment on above: Performed By: #### D RUGRPD #### [facility] [address] [address] [address] Roberto Parmar THC Negative Normal NEGATIVE [facility] Comment on above: Performed By: #### D RUGRPD #### [facility] [address] [address] [address] Roberto Parmar US PELVIS AND TRANSVAGon [...] by: MAYUR ALLEN Date: 2022-07-13 07:21 Normal [facility] PAP ACOG PANEL 2: 21 to 31on 06-18-2022 . . Normal [facility] Comment on above: Performed By: #### [id number] #### [facility] [address] [place] [address] Dr. Roberto Parmar Age Gdln ACOG Testing 21-29 [facility] Comment on above: Performed By: #### [id number] #### [facility] [address] [place] [address] Dr. Roberto Parmar DIAGNOSIS: Comment [facility] Comment on above: Result Comment: NEGA TIVE FOR INTRAEPITHELIAL LESION OR MALIGNANCY. Performed By: #### [id number] #### [facility] [address] [place] [address] Dr. Roberto Parmar Methodology: Comment [facility] Comment on above: Result Comment: This liquid based ThinPrep(R) pap test was screened with the use of an image guided system. Performed By: #### [id number] #### [facility] [address] [place] [address] Dr. Roberto Parmar Note: Comment [facility] Comment on above: Result Comment: The Pap smear is a screening test designed to aid in the detection of premalignant and malignant conditions of the uterine cervix. It is not a diagnostic procedure and should not be used as the sole means of detecting cervical cancer. Both false-positive and false-negative reports do occur. . Performed By: #### [id number] #### [facility] [address] [place] [address] Dr. Roberto Parmar Performed by: Comment Normal [facility] Comment on above: Result Comment: Kishore De Dios Auto Body Repair Technician (ASCP) Performed By: #### 4 [id number] #### [facility] [address] [place] [address] Dr. Roberto Parmar Reflex Criteria: Comment [facility] Comment on above: Result Comment: The HPV DNA reflex criteria were not met with this specimen result therefore, no HPV testing was performed. . Performed By: #### [id number] #### [facility] [address] [place], [place] [address] Dr. Roberto Parmar Specimen adequacy: Comment Normal [facility] Comment on above: Result Comment: Sati sfactory for evaluation. Endocervical and/or squamous metaplastic cells (endocervical component) are present. Performed By: #### 4 [id number] #### [facility] [address] [address] [address] Roberto Parmar CBCon 12-06-2020 Erythrocyte distribution width (RBC) [Ratio] 13.6 % Normal 11.8-14.4 [facility] Comment on above: Performed By: #### P HEP, HIVCMB #### [address] [address] [employer]: Alvino Davila MD #### CP, CBC, HCG #### [facility] [address] [place] [address] [id number] [employer]: Luis A Peng MD Hematocrit (Bld) [Volume fraction] 44.1 % Normal 36.3-47.1 [facility] Comment on above: Performed By: #### P HEP, HIVCMB #### [address] [id number] [employer]: Alvino Davila MD #### CP, CBC, HCG #### [address] [place] [id number] [employer]: Luis A Peng MD Hemoglobin (Bld) [Mass/Vol] 14.1 g/dL Normal 11.9-15.1 [facility] Comment on above: Performed By: #### P HEP, HIVCMB #### [address] [id number] [employer]: Alvino Davila MD #### CP, CBC, HCG #### [facility] [address] [place] [address] [id number] [employer]: Luis A Peng MD MCH (RBC) [Entitic mass] 25.4 pg Normal 25.2-33.5 [facility] Comment on above: Performed By: #### P HEP, HIVCMB #### [address] [id number] [employer]: Alvino Davila MD #### CP, CBC, HCG #### [address] [place] [phone] [employer]: Luis A Peng MD MCHC (RBC) [Mass/Vol] 32.0 g/dL Normal 28.4-34.8 [facility] Comment on above: Performed By: #### P HEP, HIVCMB #### [address] [address] [employer]: Alvino Davila MD #### CP, CBC, HCG #### [address] [place] [phone] [employer]: Luis A Peng MD MCV (RBC) [Entitic vol] 79.5 fL Low 82.6-102.9 [facility] Comment on above: Performed By: #### P HEP, HIVCMB #### [address] [address] [employer]: Alvino Davila MD #### CP, CBC, HCG #### [address] [place] [phone] [employer]: Luis A Peng MD NRBC Automated 0.0 per 100 WBC Normal 0.0 [facility] Comment on above: Performed By: #### P HEP, HIVCMB #### [place] [address] [employer]: Alvino Davila MD #### CP, CBC, HCG #### [address] [place] [phone] [employer]: Luis A Peng MD Platelet mean volume (Bld) [Entitic vol] 11.8 fL Normal 8.1-13.5 [facility] Comment on above: Performed By: #### P HEP, HIVCMB #### [address] [place] [address] [employer]: Alvino Davila MD #### CP, CBC, HCG #### [address] [place] [phone] [employer]: Luis A Peng MD Platelets (Bld) [#/Vol] 238 10*3/uL Normal 138-453 [facility] Comment on above: Performed By: #### P HEP, HIVCMB #### [address] [address] [employer]: Alvino Davila MD #### CP, CBC, HCG #### [address] [place] [phone] [employer]: Luis A Peng MD RBC (Bld) [#/Vol] 5.55 10*6/uL High 3.95-5.11 [facility] Comment on above: Performed By: #### P HEP, HIVCMB #### [address] [address] [employer]: Alvino Davila MD #### CP, CBC, HCG #### [address] [place] [phone] [employer]: Luis A Peng MD WBC (Bld) [#/Vol] 8.6 10*3/uL Normal 3.5-11.3 [facility] Comment on above: Performed By: #### P HEP, HIVCMB #### [address] [address] [employer]: Alvino Davila MD #### CP, CBC, HCG #### [address] [place] [address] [employer]: Luis A Peng MD Erythrocyte distribution width (RBC) [Ratio] 13.6 % 11.8 - 14.4 % [place] Hematocrit (Bld) [Volume fraction] 44.1 % 36.3 - 47.1 % [place] Hemoglobin (Bld) [Mass/Vol] 14.1 g/dL 11.9 - 15.1 g/dL [place] Interpretation and review of laboratory results Abnormal [place] MCH (RBC) [Entitic mass] 25.4 pg 25.2 - 33.5 pg [place] MCHC (RBC) [Mass/Vol] 32.0 g/dL 28.4 - 34.8 g/dL [place] MCV (RBC) [Entitic vol] 79.5 fL Low 82.6 - 102.9 fL [place] Platelet mean volume (Bld) [Entitic vol] 11.8 fL 8.1 - 13.5 fL [place], [place] Platelets (Bld) [#/Vol] 238 10*3/uL [place] RBC (Bld) [#/Vol] 5.55 10*6/uL High 3.95 - 5.1 1 m/uL [place] WBC (Bld) [#/Vol] 8.6 10*3/uL [place] WBC (Bld) [#/Vol] 0.0 10*3/uL 0.0 per 100 WBC M [place], [place] Comp Metabolic Profon 2020 (cont.) Normal [facility] Comment on above: Result Comment: Aver age GFR for 20-29 years old: 116 mL/min/1.73sq m Chronic Kidney Disease: <60 mL/min/1.73sq m Kidney failure: <15 mL/min/1.73sq m eGFR calculated using average adult body mass. Additional eGFR calculator available at: http://www.[employer]/multiple_crcl_2011.htm Performed By: #### P HEP, HIVCMB #### [address] [place] [address] [employer]: Alvino Davila MD #### CP, CBC, HCG #### [facility] [address] [place] [address] [employer]: Luis A Peng MD Albumin [Mass/Vol] 4.6 g/dL Normal 3.5-5.2 [facility] Comment on above: Performed By: #### P HEP, HIVCMB #### [address] [address] [employer]: Alvino Davila MD #### CP, CBC, HCG #### [facility] [address] [place] [phone] [employer]: Luis A Peng MD Albumin/Globulin [Mass ratio] 1.6 {ratio} Normal 1.0-2.5 [facility] Comment on above: Performed By: #### P HEP, HIVCMB #### [address] [address] [employer]: Alvino Davila MD #### CP, CBC, HCG #### [facility] [address] [place] [address] [place] [address] [employer]: Luis A Peng MD Alkaline Phos 81 U/L Normal 35-104 [facility] Comment on above: Performed By: #### P HEP, HIVCMB #### [address] [address] [employer]: Alvino Davila MD #### CP, CBC, HCG #### [facility] [address] [place] [address] [employer]: Luis A Peng MD ALT [Catalytic activity/Vol] 39 U/L High 5-33 [facility] Comment on above: Performed By: #### P HEP, HIVCMB #### [address] [address] [employer]: Alvino Davila MD #### CP, CBC, HCG #### [facility] [address] [place], [place] [id number] [employer]: Luis A Peng MD Anion gap [Moles/Vol] 12 mmol/L Normal 9-17 [facility] Comment on above: Performed By: #### P HEP, HIVCMB #### [address] [address] [employer]: Alvino Davila MD #### CP, CBC, HCG #### [facility] [address], [place] 1901[address] [employer]: Luis A Peng MD AST [Catalytic activity/Vol] 28 U/L Normal <32 [facility] Comment on above: Performed By: #### P HEP, HIVCMB #### [address] [address] [employer]: Alvino Davila MD #### CP, CBC, HCG #### [facility] [address] [place], [place] [id number] [employer]: Luis A Peng MD Bilirubin Ql (U) 0.26 mg/dL Low 0.3-1.2 [facility] Comment on above: Performed By: #### P HEP, HIVCMB #### [address] [address] [employer]: Alvino Davila MD #### CP, CBC, HCG #### [facility] [address], [place] [id number] [employer]: Luis A Pegn MD BUN/CRE Ratio 14 Normal 9-20 [facility] Comment on above: Performed By: #### P HEP, HIVCMB #### [address] [address] [employer]: Alvino Davila MD #### CP, CBC, HCG #### [facility] [address] [place], [place] [phone] [employer]: Luis A Peng MD Calcium [Mass/Vol] 10.1 mg/dL Normal 8.6-10.4 [facility] Comment on above: Performed By: #### P HEP, HIVCMB #### [address] [address] [employer]: Alvino Davila MD #### CP, CBC, HCG #### [facility] [address] [place], [place] [id number] [employer]: Luis A Peng MD Chloride [Moles/Vol] 101 mmol/L Normal 98-107 [facility] Comment on above: Performed By: #### P HEP, HIVCMB #### [address] [address] [employer]: Alvino Davila MD #### CP, CBC, HCG #### [address] [place], [place] [phone] [employer]: Luis A Peng MD CO2 [Moles/Vol] 26 mmol/L Normal 20-31 [facility] Comment on above: Performed By: #### P HEP, HIVCMB #### [address] [address] [employer]: Alvino Davila MD #### CP, CBC, HCG #### [address] [place], [place] [id number] [employer]: Luis A Peng MD Creatinine [Mass/Vol] 0.49 mg/dL Low 0.50-0.90 [facility] Comment on above: Performed By: #### P HEP, HIVCMB #### [address] [address] [employer]: Alvino Davila MD #### CP, CBC, HCG #### [address] [place], [place] [phone] [employer]: Luis A Peng MD GFR, Amer >60 Normal >60 [facility] Comment on above: Performed By: #### P HEP, HIVCMB #### [address] [place] [address] [employer]: Alvino Davila MD #### CP, CBC, HCG #### [address] [place], [place] [phone] [employer]: Luis A Peng MD GFR,non Amer >60 Normal >60 [facility] Comment on above: Performed By: #### P HEP, HIVCMB #### [address] [address] [employer]: Alvino Davila MD #### CP, CBC, HCG #### [address] [place], [place] [id number] [employer]: Luis A Peng MD Glucose [Mass/Vol] 101 mg/dL High 70-99 [facility] Comment on above: Performed By: #### P HEP, HIVCMB #### [address] [address] [employer]: Alvino Davila MD #### CP, CBC, HCG #### [address] [place] [address] [employer]: Luis A Peng MD Potassium [Moles/Vol] 4.2 mmol/L Normal 3.7-5.3 [facility] Comment on above: Performed By: #### P HEP, HIVCMB #### [address] [address] [employer]: Alvino Davila MD #### CP, CBC, HCG #### [address] [place] [address] [employer]: Luis A Peng MD Protein [Mass/Vol] 7.5 g/dL Normal 6.4-8.3 [facility] Comment on above: Performed By: #### P HEP, HIVCMB #### [address] [address] [employer]: Alvino Davila MD #### CP, CBC, HCG #### [address] [place] [phone] [employer]: Luis A Peng MD Sodium [Moles/Vol] 139 mmol/L Normal 135-144 [facility] Comment on above: Performed By: #### P HEP, HIVCMB #### [address] [address] [employer]: Alvino Davila MD #### CP, CBC, HCG #### [address] [place] [id number] [employer]: Luis A Peng MD Staging: Normal [facility] Comment on above: Result Comment: Stag e 1: Some kidney damage normal GFR Stage 2: Mild kidney damage GFR 60-89 Stage 3: Moderate kidney damage GFR 30-59 Stage 4: Severe kidney damage GFR 15-29 Stage 5: Severe kidney damage GFR <15 ESRD - chronic treatment by dialysis or transplant Performed By: #### P HEP, HIVCMB #### [address] [address] [employer]: Alvino Davila MD #### CP, CBC, HCG #### [address] [place] [address] [employer]: Luis A Peng MD Urea nitrogen [Mass/Vol] 7 mg/dL Normal 6-20 [facility] Comment on above: Performed By: #### P HEP, HIVCMB #### [address] [address] [employer]: Alvino Davila MD #### CP, CBC, HCG #### [facility] [address] [place] [address] [employer]: Luis A Peng MD Comprehensive Metabolic Pane liu 12-06-2020 Albumin [Mass/Vol] 4.6 g/dL 3.5 - 5.2 g/dL [place], [place] Albumin/Globulin [Mass ratio] 1.6 {ratio} [place] ALP [Catalytic activity/Vol] 81 U/L 35 - 104 U/L [place] ALT [Catalytic activity/Vol] 39 U/L High 5 - 33 U/L [place] Anion gap [Moles/Vol] 12 mmol/L 9 - 17 mmol/L [place] AST [Catalytic activity/Vol] 28 U/L <32 [place] Bilirubin Ql (U) 0.26 mg/dL Low 0.3 - 1.2 mg/dL [place], [place] Bun/Cre Ratio 14 [place] Calcium [Mass/Vol] 10.1 mg/dL 8.6 - 10. 4 mg/dL [place] Chloride [Moles/Vol] 101 mmol/L 98 - 107 mmol/L [place] CO2 [Moles/Vol] 26 mmol/L 20 - 31 mmol/L [place] Creatinine [Mass/Vol] 0.49 mg/dL Low 0.5 - 0.9 mg/d L [place] GFR >60 >60 mL/min [place] GFR Non- >60 >60 mL/min [place] Glucose [Mass/Vol] 101 mg/dL High 70 - 99 mg/dL [place], [place] Interpretation and review of laboratory results Abnormal [place] Potassium [Moles/Vol] 4.2 mmol/L 3.7 - 5.3 mmol/L [place] Protein [Mass/Vol] 7.5 g/dL 6.4 - 8.3 g/dL [place] Sodium [Moles/Vol] 139 mmol/L 135 - 144 mmol/L [place] Urea nitrogen [Mass/Vol] 7 mg/dL 6 - 20 mg/dL [place] HCG Qualitative, Serumon hCG Qual Negative NEGATIVE [place] Comment on above: Specimens with hCG l evels near the threshold of the test (25 mIU/mL) may give a negative or indeterminate result. In such cases, another test should be performed with a new specimen in 48-72 hours. If early is suspected clinically in this setting, correlation with quantitative serum b-hCG level is suggested. [facility] has confirmed the use of plasma for this test. This has not been cleared or approved by the U.S. Food and Drug Administration. The FDA has determined that such clearance is not necessary. HCG Screen, Bloodon 12-06-19 HCG Qn Negative Normal NEG [facility] Comment on above: Result Comment: Spec imens with hCG levels near the threshold of the test (25 mIU/mL) may give a negative or indeterminate result. In such cases, another test should be performed with a new specimen in 48-72 hours. If early is suspected clinically in this setting, correlation with quantitative serum b-hCG level is suggested. [facility] has confirmed the use of plasma for this test. This has not been cleared or approved by the U.S. Food and Drug Administration. The FDA has determined that such clearance is not necessary. Performed By: #### P HEP, HIVCMB #### [id number] [place], [place] [id number] [employer]: Alvino Davila MD #### CP, CBC, HCG #### [facility] [address] [place] [address] [employer]: Luis A Peng MD HIV Ag/Abon 12-06-2020 HIV Ag/Ab NONREACTIVE Normal NR [facility] Comment on above: Result Comment: No l aboratory evidence of HIV infection. If acute HIV infection is suspected, consider testing for HIV-1 RNA. Performed By: #### P HEP, HIVCMB #### [facility] [address] [place], [place] [id number] [employer]: Alvino Davila MD #### CP, CBC, HCG #### [facility] [address] [place] [address] [address] [place], [place] [id number] [employer]: Luis A Peng MD HIV Screenon 12-06-2020 HIV Ag/Ab NONREACTIVE NONREACTIVE [place], [place] Comment on above: No laboratory eviden ce of HIV infection. If acute HIV infection is suspected, consider testing for HIV-1 RNA. Hepatitis Acute [facility] 12-06 Hep A Ab,IgM NONREACTIVE Normal [facility] Comment on above: Performed By: #### P HEP, HIVCMB #### [address] [address] [employer]: Alvino Davila MD #### CP, CBC, HCG #### [address] [place] [address] [employer]: Luis A Peng MD Hep B Core Ab,IgM NONREACTIVE Normal [facility] Comment on above: Performed By: #### P HEP, HIVCMB #### [address] [address] [employer]: Alvino Davila MD #### CP, CBC, HCG #### [address] [place] [address] [employer]: Luis A Peng MD Hep B Surf Ag NONREACTIVE Normal [facility] Comment on above: Performed By: #### P HEP, HIVCMB #### [address] [address] [employer]: Alvino Davila MD #### CP, CBC, HCG #### [address] [place] [address] [employer]: Luis A Peng MD Hep C Ab REACTIVE Abnormal [facility] Comment on above: Result Comment: The [...] Performed By: #### P HEP, HIVCMB #### [facility] [address] [place] [address] [employer]: Alvino Davila MD #### CP, CBC, HCG #### [facility] [address] [place] [address] [employer]: Luis A Peng MD Hepatitis Panel, Acuteon HAV IgM IA Qn (S) NONREACTIVE NONREACTIVE [place], [place] Hep B Core Ab, IgM NONREACTIVE NONREACTIVE [place], [place] Hepatitis B Surface Ag NONREACTIVE NONREACTIVE [place] Hepatitis C Ab REACTIVE Abnormal NONREACTIVE [place], [place] Comment on above: The hepatitis C [...] Interpretation and review of laboratory results Abnormal [place], [place] Metabolic Panelon 12-06-2020 GFR/1.73 sq M predicted among non-blacks MDRD (S/P/Bld) [Vol rate/Area] [place], [place] Comment on above: Stage 1: Some [...] body mass. Additional eGFR calculator available at: http://[email or web address]/multiple_[email or web address].htm CBCon 05-30-2020 Erythrocyte distribution width (RBC) [Ratio] 12.7 % Normal 11.8-14.4 [facility] Comment on above: Performed By: #### C P, HCG, CBC #### [facility] [address] [place] [address] [address] [place] [phone] [employer]: Luis A Peng MD #### HIVCMB, PHEP #### [address] [phone] [employer]: Alvino Davila MD Hematocrit (Bld) [Volume fraction] 39.2 % Normal 36.3-47.1 [facility] Comment on above: Performed By: #### C P, HCG, CBC #### [address] [place] [phone] [employer]: Luis A Peng MD #### HIVCMB, PHEP #### [place] [address] [employer]: Alvino Davila MD Hemoglobin (Bld) [Mass/Vol] 12.3 g/dL Normal 11.9-15.1 [facility] Comment on above: Performed By: #### C P, HCG, CBC #### [address] [place] [phone] [employer]: Luis A Peng MD #### HIVCMB, PHEP #### [place] [address] [employer]: Alvino Davila MD MCH (RBC) [Entitic mass] 26.2 pg Normal 25.2-33.5 [facility] Comment on above: Performed By: #### C P, HCG, CBC #### [address] [place] [phone] [employer]: Luis A Peng MD #### HIVCMB, PHEP #### [address] [id number] [employer]: Alvino Davila MD MCHC (RBC) [Mass/Vol] 31.4 g/dL Normal 28.4-34.8 [facility] Comment on above: Performed By: #### C P, HCG, CBC #### [facility] [address] [place] [address] Dr. [place] [phone] [employer]: Luis A Peng MD #### HIVCMB, PHEP #### [address] [id number] [employer]: Alvino Davila MD MCV (RBC) [Entitic vol] 83.6 fL Normal 82.6-102.9 [facility] Comment on above: Performed By: #### C P, HCG, CBC #### [address] [place] [phone] [employer]: Luis A Peng MD #### HIVCMB, PHEP #### [place] 2020408 [employer]: Alvino Davila MD NRBC Automated 0.0 per 100 WBC Normal 0.0 [facility] Comment on above: Performed By: #### C P, HCG, CBC #### [address] [place] [phone] [employer]: Luis A Peng MD #### HIVCMB, PHEP #### [place] 2020408 [employer]: Alvino Davila MD Platelet mean volume (Bld) [Entitic vol] 10.9 fL Normal 8.1-13.5 [facility] Comment on above: Performed By: #### C P, HCG, CBC #### [address] [place] [phone] [employer]: Luis A Peng MD #### HIVCMB, PHEP #### [address] [place], [place] [id number] [employer]: Alvino Davila MD Platelets (Bld) [#/Vol] 277 10*3/uL Normal 138-453 [facility] Comment on above: Performed By: #### C P, HCG, CBC #### [facility] [address] [place] [address] Dr. [place] [phone] [employer]: Luis A Peng MD #### HIVCMB, PHEP #### [address] [phone] [employer]: Alvino Davila MD RBC (Bld) [#/Vol] 4.69 10*6/uL Normal 3.95-5.11 [facility] Comment on above: Performed By: #### C P, HCG, CBC #### [address] [place] [phone] [employer]: Luis A Peng MD #### HIVCMB, PHEP #### [address] [address] [employer]: Alvino Davila MD WBC (Bld) [#/Vol] 5.5 10*3/uL Normal 3.5-11.3 [facility] Comment on above: Performed By: #### C P, HCG, CBC #### [address] [place] [phone] [employer]: Luis A ePng MD #### HIVCMB, PHEP #### [address] [phone] [employer]: Alvino Davila MD Erythrocyte distribution width (RBC) [Ratio] 12.7 % 11.8 - 14.4 % [place] Hematocrit (Bld) [Volume fraction] 39.2 % 36.3 - 47.1 % [place] Hemoglobin (Bld) [Mass/Vol] 12.3 g/dL 11.9 - 15.1 g/dL [place] MCH (RBC) [Entitic mass] 26.2 pg 25.2 - 33.5 pg [place] MCHC (RBC) [Mass/Vol] 31.4 g/dL 28.4 - 34.8 g/dL [place] MCV (RBC) [Entitic vol] 83.6 fL 82.6 - 102.9 fL [place] Platelet mean volume (Bld) [Entitic vol] 10.9 fL 8.1 - 13.5 fL [place], [place] Platelets (Bld) [#/Vol] 277 10*3/uL [place] RBC (Bld) [#/Vol] 4.69 10*6/uL 3.95 - 5.1 1 m/uL [place] WBC (Bld) [#/Vol] 5.5 10*3/uL [place] WBC (Bld) [#/Vol] 0.0 10*3/uL 0.0 per 100 WBC M [place], [place] Comp Metabolic Profon 2019 (cont.) Normal [facility] Comment on above: Result Comment: Aver age GFR for 20-29 years old: 116 mL/min/1.73sq m Chronic Kidney Disease: <60 mL/min/1.73sq m Kidney failure: <15 mL/min/1.73sq m eGFR calculated using average adult body mass. Additional eGFR calculator available at: http://[email or web address]-IT/multiple_crcl_[email or web address] Performed By: #### C P, HCG, CBC #### [facility] [address] [place] [address] [employer]: Luis A Peng MD #### HIVCMB, PHEP #### [facility] [address] [place] [address] [employer]: Alvino Davila MD Albumin [Mass/Vol] 3.4 g/dL Low 3.5-5.2 [facility] Comment on above: Performed By: #### C P, HCG, CBC #### [facility] [address] [place] [address] [employer]: Luis A Peng MD #### HIVCMB, PHEP #### [address] [address] [employer]: Alvino Davila MD Albumin/Globulin [Mass ratio] 1.1 {ratio} Normal 1.0-2.5 [facility] Comment on above: Performed By: #### C P, HCG, CBC #### [facility] [address] [place], [place] [phone] [employer]: Luis A Peng MD #### HIVCMB, PHEP #### [address] [phone] [employer]: Alvino Davila MD Alkaline Phos 130 U/L High 35-104 [facility] Comment on above: Performed By: #### C P, HCG, CBC #### [address] [place], [place] [phone] [employer]: Luis A Peng MD #### HIVCMB, PHEP #### [address] [address] [employer]: Alvino Davila MD ALT [Catalytic activity/Vol] 33 U/L Normal 5-33 [facility] Comment on above: Performed By: #### C P, HCG, CBC #### [address] [place], [place] [phone] [employer]: Luis A Peng MD #### HIVCMB, PHEP #### [address] [address] [employer]: Alvino Davila MD Anion gap [Moles/Vol] 7 mmol/L Low 9-17 [facility] Comment on above: Performed By: #### C P, HCG, CBC #### [facility] [address] [place] [address] Dr. [place] [phone] [employer]: Luis A Peng MD #### HIVCMB, PHEP #### [place] [id number] [place], [place] [phone] [employer]: Alvino Davila MD AST [Catalytic activity/Vol] 35 U/L High <32 [facility] Comment on above: Performed By: #### C P, HCG, CBC #### [facility] [address] [place] [phone] [employer]: Luis A Peng MD #### HIVCMB, PHEP #### [address] [id number] [employer]: Alvino Davila MD Bilirubin Ql (U) 0.16 mg/dL Low 0.3-1.2 [facility] Comment on above: Performed By: #### C P, HCG, CBC #### [facility] [address] [place] [address] Dr. [place] [phone] [employer]: Luis A Peng MD #### HIVCMB, PHEP #### [address] [address] [employer]: Alvino Davila MD BUN/CRE Ratio 14 Normal 9-20 [facility] Comment on above: Performed By: #### C P, HCG, CBC #### [facility] [address] [place] [address] Dr. [place] [phone] [employer]: Luis A Peng MD #### HIVCMB, PHEP #### [address] [address] [employer]: Alvino Davila MD Calcium [Mass/Vol] 9.2 mg/dL Normal 8.6-10.4 [facility] Comment on above: Performed By: #### C P, HCG, CBC #### [facility] [address] [place] [address] Dr. [place] [phone] [employer]: Luis A Peng MD #### HIVCMB, PHEP #### [place] [address] [place], [place] [phone] [employer]: Alvino Davila MD Chloride [Moles/Vol] 99 mmol/L Normal 98-107 [facility] Comment on above: Performed By: #### C P, HCG, CBC #### [facility] [address] [place] [address] [place] [address] [employer]: Luis A Peng MD #### HIVCMB, PHEP #### [address] [phone] [employer]: Alvino Davila MD CO2 [Moles/Vol] 29 mmol/L Normal 20-31 [facility] Comment on above: Performed By: #### C P, HCG, CBC #### [address] [place] [address] [employer]: Luis A Peng MD #### HIVCMB, PHEP #### [address] [id number] [employer]: Alvino Davila MD Creatinine [Mass/Vol] 0.63 mg/dL Normal 0.50-0.90 [facility] Comment on above: Performed By: #### C P, HCG, CBC #### [address] [place] [address] [employer]: Luis A Peng MD #### HIVCMB, PHEP #### [address] [phone] [employer]: Alvino Davila MD GFR, Amer >60 Normal >60 [facility] Comment on above: Performed By: #### C P, HCG, CBC #### [address] [place] [address] [employer]: Luis A Peng MD #### HIVCMB, PHEP #### [place] [address] [place] [address] [employer]: Alvino Davila MD GFR,non Amer >60 Normal >60 [facility] Comment on above: Performed By: #### C P, HCG, CBC #### [facility] [address] [place], [place] [phone] [employer]: Luis A Peng MD #### HIVCMB, PHEP #### [address] [address] [employer]: Alvino Davila MD Glucose [Mass/Vol] 95 mg/dL Normal 70-99 [facility] Comment on above: Performed By: #### C P, HCG, CBC #### [facility] [address] [place], [place] [phone] [employer]: Luis A Peng MD #### HIVCMB, PHEP #### [address] [address] [employer]: Alvino Davila MD Potassium [Moles/Vol] 4.3 mmol/L Normal 3.7-5.3 [facility] Comment on above: Performed By: #### C P, HCG, CBC #### [facility] [address] [place], [place] [phone] [employer]: Luis A Peng MD #### HIVCMB, PHEP #### [address] [address] [employer]: Alvino Davila MD Protein [Mass/Vol] 6.5 g/dL Normal 6.4-8.3 [facility] Comment on above: Performed By: #### C P, HCG, CBC #### [facility] [address] [place], [place] [phone] [employer]: Luis A Peng MD #### HIVCMB, PHEP #### [address] [place] [address] [employer]: Alvino Davila MD Sodium [Moles/Vol] 135 mmol/L Normal 135-144 [facility] Comment on above: Performed By: #### C P, HCG, CBC #### [facility] [address] [place] [address] Dr. [place], [place] [phone] [employer]: Luis A Peng MD #### HIVCMB, PHEP #### [address] [address] [employer]: Alvino Davila MD Staging: Normal [facility] Comment on above: Result Comment: Stag e 1: Some kidney damage normal GFR Stage 2: Mild kidney damage GFR 60-89 Stage 3: Moderate kidney damage GFR 30-59 Stage 4: Severe kidney damage GFR 15-29 Stage 5: Severe kidney damage GFR <15 ESRD - chronic treatment by dialysis or transplant Performed By: #### C P, HCG, CBC #### [address] [place], [place] [phone] [employer]: Luis A Peng MD #### HIVCMB, PHEP #### [address] [id number] [employer]: Alvino Davila MD Urea nitrogen [Mass/Vol] 9 mg/dL Normal 6-20 [facility] Comment on above: Performed By: #### C P, HCG, CBC #### [address] [place], [place] [phone] [employer]: Luis A Peng MD #### HIVCMB, PHEP #### [address] [phone] [employer]: Alvino Davila MD Comprehensive Metabolic Pane [facility] 05-30-2020 Albumin [Mass/Vol] 3.4 g/dL Low 3.5 - 5.2 g/dL [place], [place] Albumin/Globulin [Mass ratio] 1.1 {ratio} [place], [place] ALP [Catalytic activity/Vol] 130 U/L High 35 - 104 U/L [place] ALT [Catalytic activity/Vol] 33 U/L 5 - 33 U/L [place] Anion gap [Moles/Vol] 7 mmol/L Low 9 - 17 mmol/L [place] AST [Catalytic activity/Vol] 35 U/L High <32 [place] Bilirubin Ql (U) 0.16 mg/dL Low 0.3 - 1.2 mg/dL [place], [place] Bun/Cre Ratio 14 [place], [place] Calcium [Mass/Vol] 9.2 mg/dL 8.6 - 10. 4 mg/dL [place] Chloride [Moles/Vol] 99 mmol/L 98 - 107 mmol/L [place] CO2 [Moles/Vol] 29 mmol/L 20 - 31 mmol/L [place] Creatinine [Mass/Vol] 0.63 mg/dL 0.5 - 0.9 mg/d L [place] GFR >60 >60 mL/min [place] GFR Non- >60 >60 mL/min [place] Glucose [Mass/Vol] 95 mg/dL 70 - 99 mg/dL [place], [place] Interpretation and review of laboratory results Abnormal [place] Potassium [Moles/Vol] 4.3 mmol/L 3.7 - 5.3 mmol/L [place] Protein [Mass/Vol] 6.5 g/dL 6.4 - 8.3 g/dL [place], [place] Sodium [Moles/Vol] 135 mmol/L 135 - 144 mmol/L [place] Urea nitrogen [Mass/Vol] 9 mg/dL 6 - 20 mg/dL [place] HCG Qualitative, Serumon hCG Qual Negative NEGATIVE [place] Comment on above: Specimens with hCG l evels near the threshold of the test (25 mIU/mL) may give a negative or indeterminate result. In such cases, another test should be performed with a new specimen in 48-72 hours. If early is suspected clinically in this setting, correlation with quantitative serum b-hCG level is suggested. [facility] has confirmed the use of plasma for this test. This has not been cleared or approved by the U.S. Food and Drug Administration. The FDA has determined that such clearance is not necessary. HCG Screen, Bloodon 05-30-20 20 HCG Qn Negative Normal NEG [facility] Comment on above: Result Comment: Spec imens with hCG levels near the threshold of the test (25 mIU/mL) may give a negative or indeterminate result. In such cases, another test should be performed with a new specimen in 48-72 hours. If early is suspected clinically in this setting, correlation with quantitative serum b-hCG level is suggested. [facility] has confirmed the use of plasma for this test. This has not been cleared or approved by the U.S. Food and Drug Administration. The FDA has determined that such clearance is not necessary. Performed By: #### C P, HCG, CBC #### [facility] [address] [place] [address] [place] [address] [employer]: Luis A Peng MD #### HIVCMB, PHEP #### [facility] [address] [place] [address] [employer]: Alvino Davila MD HIV Ag/Abon 05-30-2020 HIV Ag/Ab NONREACTIVE Normal NR [facility] Comment on above: Result Comment: No l aboratory evidence of HIV infection. If acute HIV infection is suspected, consider testing for HIV-1 RNA. Performed By: #### C P, HCG, CBC #### [address] [place] [address] [employer]: Luis A Peng MD #### HIVCMB, PHEP #### [facility] [address] [place], [place] [phone] [employer]: Alvino Davila MD HIV Screenon 05-30-2020 HIV Ag/Ab NONREACTIVE NONREACTIVE [place] Comment on above: No laboratory eviden ce of HIV infection. If acute HIV infection is suspected, consider testing for HIV-1 RNA. Hepatitis Acute [facility] 05-30 Hep A Ab,IgM NONREACTIVE Normal NR [facility] Comment on above: Performed By: #### C P, HCG, CBC #### [facility] [address] [place] [address] [employer]: Luis A Peng MD #### HIVCMB, PHEP #### [address] [phone] [employer]: Alvino Davila MD Hep B Core Ab,IgM NONREACTIVE Normal [facility] Comment on above: Performed By: #### C P, HCG, CBC #### [address] [place] [phone] [employer]: Luis A Peng MD #### HIVCMB, PHEP #### [address] [phone] [employer]: Alvino Davila MD Hep B Surf Ag NONREACTIVE Normal [facility] Comment on above: Performed By: #### C P, HCG, CBC #### [address] [place] [phone] [employer]: Luis A Peng MD #### HIVCMB, PHEP #### [address] [address] [employer]: Alvino Davila MD Hep C Ab NONREACTIVE Normal [facility] Comment on above: Result Comment: The [...] By: #### C P, HCG, CBC #### [address] [place] [address] [employer]: Luis A Peng MD #### HIVCMB, PHEP #### [facility] [address] [place] [address] [employer]: Alvino Davila MD Hepatitis Panel, Acuteon HAV IgM IA Qn (S) NONREACTIVE NONREACTIVE [place] Hep B Core Ab, IgM NONREACTIVE NONREACTIVE [place] Hepatitis B Surface Ag NONREACTIVE NONREACTIVE [place] Hepatitis C Ab NONREACTIVE NONREACTIVE [place] Comment on above: The hepatitis C [...] predicted among non-blacks MDRD (S/P/Bld) [Vol rate/Area] [place], [place] Comment on above: Stage 1: Some [...] body mass. Additional eGFR calculator available at: http://[email or web address]/multiple_[email or web address].htm CBCon 01-01-2020 Erythrocyte distribution width (RBC) [Ratio] 12.5 % Normal 11.8-14.4 [facility] Comment on above: Performed By: #### P HEP, HIVCMB #### [facility] [address] [place], [place] [phone] [employer]: Alvino Davila MD #### CP, CBC, HCG #### [facility] [address] [place] [phone] [employer]: Luis A Peng MD Hematocrit (Bld) [Volume fraction] 40.2 % Normal 36.3-47.1 [facility] Comment on above: Performed By: #### P HEP, HIVCMB #### [address] [id number] [employer]: Alvino Davila MD #### CP, CBC, HCG #### [address] [phone] [employer]: Luis A Peng MD Hemoglobin (Bld) [Mass/Vol] 13.1 g/dL Normal 11.9-15.1 [facility] Comment on above: Performed By: #### P HEP, HIVCMB #### [address] [id number] [employer]: Alvino Davila MD #### CP, CBC, HCG #### [address] [phone] [employer]: Luis A Peng MD MCH (RBC) [Entitic mass] 28.4 pg Normal 25.2-33.5 [facility] Comment on above: Performed By: #### P HEP, HIVCMB #### [address] [id number] [employer]: Alvino Davila MD #### CP, CBC, HCG #### [address] [place] [phone] [employer]: Luis A Peng MD MCHC (RBC) [Mass/Vol] 32.6 g/dL Normal 28.4-34.8 [facility] Comment on above: Performed By: #### P HEP, HIVCMB #### [address] [phone] [employer]: Alvino Davila MD #### CP, CBC, HCG #### [address] [place], [place] [phone] [employer]: Luis A Peng MD MCV (RBC) [Entitic vol] 87.2 fL Normal 82.6-102.9 [facility] Comment on above: Performed By: #### P HEP, HIVCMB #### [address] [id number] [employer]: Alvino Davila MD #### CP, CBC, HCG #### [address] [place], [place] [id number] [employer]: Luis A Peng MD NRBC Automated 0.0 per 100 WBC Normal 0.0 [facility] Comment on above: Performed By: #### P HEP, HIVCMB #### [address] [address] [employer]: Alvino Davila MD #### CP, CBC, HCG #### [address] [place] [id number] [employer]: Luis A Peng MD Platelet mean volume (Bld) [Entitic vol] 11.2 fL Normal 8.1-13.5 [facility] Comment on above: Performed By: #### P HEP, HIVCMB #### [address] [id number] [employer]: Alvino Davila MD #### CP, CBC, HCG #### [address] [place], [place] [id number] [employer]: Luis A Peng MD Platelets (Bld) [#/Vol] 241 10*3/uL Normal 138-453 [facility] Comment on above: Performed By: #### P HEP, HIVCMB #### [address] [address] [employer]: Alvino Davila MD #### CP, CBC, HCG #### [address] [place] [id number] [employer]: Luis A Peng MD RBC (Bld) [#/Vol] 4.61 10*6/uL Normal 3.95-5.11 [facility] Comment on above: Performed By: #### P HEP, HIVCMB #### [id number] [place], [place] [id number] [employer]: Alvino Davila MD #### CP, CBC, HCG #### [address] [place] [address] [employer]: Luis A Peng MD WBC (Bld) [#/Vol] 9.0 10*3/uL Normal 3.5-11.3 [facility] Comment on above: Performed By: #### P HEP, HIVCMB #### [id number] [place], [place] [id number] [employer]: Alvino Davila MD #### CP, CBC, HCG #### [address] [place] [address] [employer]: Luis A Peng MD Erythrocyte distribution width (RBC) [Ratio] 12.5 % 11.8 - 14.4 % [place] Hematocrit (Bld) [Volume fraction] 40.2 % 36.3 - 47.1 % [place] Hemoglobin (Bld) [Mass/Vol] 13.1 g/dL 11.9 - 15.1 g/dL [place] MCH (RBC) [Entitic mass] 28.4 pg 25.2 - 33.5 pg [place] MCHC (RBC) [Mass/Vol] 32.6 g/dL 28.4 - 34.8 g/dL [place] MCV (RBC) [Entitic vol] 87.2 fL 82.6 - 102.9 fL [place] Platelet mean volume (Bld) [Entitic vol] 11.2 fL 8.1 - 13.5 fL [place], [place] Platelets (Bld) [#/Vol] 241 10*3/uL [place] RBC (Bld) [#/Vol] 4.61 10*6/uL 3.95 - 5.1 1 m/uL [place] WBC (Bld) [#/Vol] 0.0 10*3/uL 0.0 per 100 WBC [place] WBC (Bld) [#/Vol] 9.0 10*3/uL [place] Comp Metabolic Profon 2019 (cont.) Normal [facility] Comment on above: Result Comment: Aver age GFR for 20-29 years old: 116 mL/min/1.73sq m Chronic Kidney Disease: <60 mL/min/1.73sq m Kidney failure: <15 mL/min/1.73sq m eGFR calculated using average adult body mass. Additional eGFR calculator available at: http://www.[employer]/multiple_crcl_2011.htm Performed By: #### P HEP, HIVCMB #### [facility] [address] [place] [address] [id number] [employer]: Alvino Davila MD #### CP, CBC, HCG #### [address] [place] [address] [employer]: Luis A Peng MD Albumin [Mass/Vol] 4.2 g/dL Normal 3.5-5.2 [facility] Comment on above: Performed By: #### P HEP, HIVCMB #### [facility] [address] [place] [id number] [employer]: Alvino Davila MD #### CP, CBC, HCG #### [address] [place] [address] [employer]: Luis A Peng MD Albumin/Globulin [Mass ratio] 1.7 {ratio} Normal 1.0-2.5 [facility] Comment on above: Performed By: #### P HEP, HIVCMB #### [address] [address] [employer]: Alvino Davila MD #### CP, CBC, HCG #### [address] [place] [address] [employer]: Luis A Peng MD Alkaline Phos 69 U/L Normal 35-104 [facility] Comment on above: Performed By: #### P HEP, HIVCMB #### [address] [address] [employer]: Alvino Davila MD #### CP, CBC, HCG #### [address] [place] [address] [employer]: Luis A Peng MD ALT [Catalytic activity/Vol] 78 U/L High 5-33 [facility] Comment on above: Performed By: #### P HEP, HIVCMB #### [address] [address] [employer]: Alvino Davila MD #### CP, CBC, HCG #### [address] [place] [address] [employer]: Luis A Peng MD Anion gap [Moles/Vol] 9 mmol/L Normal 9-17 [facility] Comment on above: Performed By: #### P HEP, HIVCMB #### [address] [address] [employer]: Alvino Davila MD #### CP, CBC, HCG #### [address] [place] [address] [employer]: Luis A Peng MD AST [Catalytic activity/Vol] 44 U/L High <32 [facility] Comment on above: Performed By: #### P HEP, HIVCMB #### [address] [address] [employer]: Alvino Davila MD #### CP, CBC, HCG #### [facility] [address] [place] [address] [employer]: Luis A Peng MD Bilirubin Ql (U) 0.15 mg/dL Low 0.3-1.2 [facility] Comment on above: Performed By: #### P HEP, HIVCMB #### [address] [address] [employer]: Alvino Davila MD #### CP, CBC, HCG #### [facility] [address] [place] [address] [employer]: Luis A Peng MD BUN/CRE Ratio 20 Normal 9-20 [facility] Comment on above: Performed By: #### P HEP, HIVCMB #### [address] [address] [employer]: Alvino Davila MD #### CP, CBC, HCG #### [facility] [address] [place] [id number] [employer]: Luis A Peng MD Calcium [Mass/Vol] 9.4 mg/dL Normal 8.6-10.4 [facility] Comment on above: Performed By: #### P HEP, HIVCMB #### [address] [address] [employer]: Alvino Davila MD #### CP, CBC, HCG #### [facility] [address] [place] [address] [place] [address] [employer]: Luis A Peng MD Chloride [Moles/Vol] 97 mmol/L Low 98-107 [facility] Comment on above: Performed By: #### P HEP, HIVCMB #### [address] [address] [employer]: Alvino Davila MD #### CP, CBC, HCG #### [address] [place] [address] [employer]: Luis A Peng MD CO2 [Moles/Vol] 28 mmol/L Normal 20-31 [facility] Comment on above: Performed By: #### P HEP, HIVCMB #### [address] [address] [employer]: Alvino Davila MD #### CP, CBC, HCG #### [address] [place], [place] [id number] [employer]: Luis A Peng MD Creatinine [Mass/Vol] 0.55 mg/dL Normal 0.50-0.90 [facility] Comment on above: Performed By: #### P HEP, HIVCMB #### [address] [address] [employer]: Alvino Davila MD #### CP, CBC, HCG #### [address] [place], [place] [id number] [employer]: Luis A Peng MD GFR, Amer >60 Normal >60 [facility] Comment on above: Performed By: #### P HEP, HIVCMB #### [address] [address] [employer]: Alvino Davila MD #### CP, CBC, HCG #### [address] [place], [place] [id number] [employer]: Luis A Peng MD GFR,non Amer >60 Normal >60 [facility] Comment on above: Performed By: #### P HEP, HIVCMB #### [address] [address] [employer]: Alvino Davila MD #### CP, CBC, HCG #### [address] [place], [place] [id number] [employer]: Luis A Peng MD Glucose [Mass/Vol] 85 mg/dL Normal 70-99 [facility] Comment on above: Performed By: #### P HEP, HIVCMB #### [address] [address] [employer]: Alvino Davila MD #### CP, CBC, HCG #### [address] [place], [place] [id number] [employer]: Luis A Peng MD Potassium [Moles/Vol] 4.3 mmol/L Normal 3.7-5.3 [facility] Comment on above: Performed By: #### P HEP, HIVCMB #### [address] [id number] [employer]: Alvino Davila MD #### CP, CBC, HCG #### [address] [place] [id number] [employer]: Luis A Peng MD Protein [Mass/Vol] 6.7 g/dL Normal 6.4-8.3 [facility] Comment on above: Performed By: #### P HEP, HIVCMB #### [address] [address] [employer]: Alvino Davila MD #### CP, CBC, HCG #### [address] [place] [phone] [employer]: Luis A Peng MD Sodium [Moles/Vol] 134 mmol/L Low 135-144 [facility] Comment on above: Performed By: #### P HEP, HIVCMB #### [address] [address] [employer]: Alvino Davila MD #### CP, CBC, HCG #### [address] [place] [id number] [employer]: Luis A Peng MD Staging: Normal [facility] Comment on above: Result Comment: Stag e 1: Some kidney damage normal GFR Stage 2: Mild kidney damage GFR 60-89 Stage 3: Moderate kidney damage GFR 30-59 Stage 4: Severe kidney damage GFR 15-29 Stage 5: Severe kidney damage GFR <15 ESRD - chronic treatment by dialysis or transplant Performed By: #### P HEP, HIVCMB #### [facility] [address] [place], [place] [id number] [employer]: Alvino Davila MD #### CP, CBC, HCG #### [facility] [address] [place] [address] [employer]: Luis A Peng MD Urea nitrogen [Mass/Vol] 11 mg/dL Normal 6-20 [facility] Comment on above: Performed By: #### P HEP, HIVCMB #### [facility] [place], [place] [id number] [employer]: Alvino Davila MD #### CP, CBC, HCG #### [facility] [address] [place] [address] [employer]: Luis A Peng MD Comprehensive Metabolic Pane [facility] 01-01-2020 Albumin [Mass/Vol] 4.2 g/dL 3.5 - 5.2 g/dL [place], [place] Albumin/Globulin [Mass ratio] 1.7 {ratio} [place] ALP [Catalytic activity/Vol] 69 U/L 35 - 104 U/L [place] ALT [Catalytic activity/Vol] 78 U/L High 5 - 33 U/L [place] Anion gap [Moles/Vol] 9 mmol/L 9 - 17 mmol/L [place] AST [Catalytic activity/Vol] 44 U/L High <32 [place] Bilirubin Ql (U) 0.15 mg/dL Low 0.3 - 1.2 mg/dL [place], [place] Bun/Cre Ratio 20 [place], [place] Calcium [Mass/Vol] 9.4 mg/dL 8.6 - 10. 4 mg/dL [place] Chloride [Moles/Vol] 97 mmol/L Low 98 - 107 mmol/L [place] CO2 [Moles/Vol] 28 mmol/L 20 - 31 mmol/L [place] Creatinine [Mass/Vol] 0.55 mg/dL 0.5 - 0.9 mg/d L [place] GFR >60 >60 mL/min [place] GFR Non- >60 >60 mL/min [place] Glucose [Mass/Vol] 85 mg/dL 70 - 99 mg/dL [place], [place] Interpretation and review of laboratory results Abnormal [place] Potassium [Moles/Vol] 4.3 mmol/L 3.7 - 5.3 mmol/L [place] Protein [Mass/Vol] 6.7 g/dL 6.4 - 8.3 g/dL [place] Sodium [Moles/Vol] 134 mmol/L Low 135 - 144 mmol/L [place] Urea nitrogen [Mass/Vol] 11 mg/dL 6 - 20 mg/dL [place] HCG Qualitative, Serumon hCG Qual Negative NEGATIVE [place] Comment on above: Specimens with hCG l evels near the threshold of the test (25 mIU/mL) may give a negative or indeterminate result. In such cases, another test should be performed with a new specimen in 48-72 hours. If early is suspected clinically in this setting, correlation with quantitative serum b-hCG level is suggested. [facility] has confirmed the use of plasma for this test. This has not been cleared or approved by the U.S. Food and Drug Administration. The FDA has determined that such clearance is not necessary. HCG Screen, Bloodon 01-01-20 20 HCG Qn Negative Normal NEG [facility] Comment on above: Result Comment: Spec imens with hCG levels near the threshold of the test (25 mIU/mL) may give a negative or indeterminate result. In such cases, another test should be performed with a new specimen in 48-72 hours. If early is suspected clinically in this setting, correlation with quantitative serum b-hCG level is suggested. [facility] has confirmed the use of plasma for this test. This has not been cleared or approved by the U.S. Food and Drug Administration. The FDA has determined that such clearance is not necessary. Performed By: #### P HEP, HIVCMB #### [facility] [address] [place] [address] [employer]: Alvino Davila MD #### CP, CBC, HCG #### [address] [place] [address] [employer]: Luis A Peng MD HIV Ag/Abon 01-01-2020 HIV Ag/Ab NONREACTIVE Normal [facility] Comment on above: Result Comment: No l aboratory evidence of HIV infection. If acute HIV infection is suspected, consider testing for HIV-1 RNA. Performed By: #### P HEP, HIVCMB #### [address] [address] [employer]: Alvino Davila MD #### CP, CBC, HCG #### [address] [place] [address] [employer]: Luis A Peng MD HIV Screenon 01-01-2020 HIV Ag/Ab NONREACTIVE NONREACTIVE [place] Comment on above: No laboratory eviden ce of HIV infection. If acute HIV infection is suspected, consider testing for HIV-1 RNA. Hepatitis Acute [facility] 12-31 Hep A Ab,IgM NONREACTIVE Normal [facility] Comment on above: Performed By: #### P HEP, HIVCMB #### [address] [address] [employer]: Alvino Davila MD #### CP, CBC, HCG #### [address] [place] [address] [employer]: Luis A Peng MD Hep B Core Ab,IgM NONREACTIVE Normal [facility] Comment on above: Performed By: #### P HEP, HIVCMB #### [address] [place] [address] [employer]: Alvino Davila MD #### CP, CBC, HCG #### [facility] [address] [place] [address] [address] [place], [place] [id number] [employer]: Luis A Peng MD Hep B Surf Ag NONREACTIVE Normal [facility] Comment on above: Performed By: #### P HEP, HIVCMB #### [address] [address] [employer]: Alvino Davila MD #### CP, CBC, HCG #### [address] [place], [place] [id number] [employer]: Luis A Peng MD Hep C Ab NONREACTIVE Normal [facility] Comment on above: Result Comment: The [...] Performed By: #### P HEP, HIVCMB #### [address] [address] [employer]: Alvino Davila MD #### CP, CBC, HCG #### [address] [place], [place] [id number] [employer]: Luis A Peng MD Hepatitis Panel, [facility] HAV IgM IA Qn (S) NONREACTIVE NONREACTIVE [place] Hep B Core Ab, IgM NONREACTIVE NONREACTIVE [place] Hepatitis B Surface Ag NONREACTIVE NONREACTIVE [place] Hepatitis C Ab NONREACTIVE NONREACTIVE [place], [place] Comment on above: The hepatitis C [...] predicted among non-blacks MDRD (S/P/Bld) [Vol rate/Area] [facility] [place] [place] Comment on above: Stage 1: Some [...] body mass. Additional eGFR calculator available at: http://www.[employer]/multiple_crcl_2011.htm Vital Signs Date Time Vital Sign Value Performing Clinician Ld blackmon 06-27-2025 10:02-0400 Body mass index (BMI) [Ratio] 28.04 kg/m2 Paradise MORROW Work Phone: [facility] 06-27-2025 10:02-0400 Body weight 76.43 kg Paradise MORROW Work Phone: [facility] 06-27-2025 10:02-0400 Diastolic blood pressure 76 mm[Hg] Paradise MORROW Work Phone: [facility] 06-27-2025 10:02-0400 Systolic blood pressure 120 mm[Hg] Paradise MORROW Work Phone: [facility] 06-20-2025 14:32-0400 Body mass index (BMI) [Ratio] 28.09 kg/m2 Mee Yary DO Work Phone: [facility] 06-20-2025 14:32-0400 Body weight 76.57 kg Mee Yary DO Work Phone: [facility] 06-20-2025 14:32-0400 Diastolic blood pressure 80 mm[Hg] Mee Yary DO Work Phone: [facility] 06-20-2025 14:32-0400 Systolic blood pressure 120 mm[Hg] Mee Yary DO Work Phone: [facility] 06-07-2025 10:17-0400 Body mass index (BMI) [Ratio] 27.46 kg/m2 Mee Yary DO Work Phone: [facility] 06-07-2025 10:17-0400 Body weight 74.84 kg Mee Yary DO Work Phone: [facility] 06-07-2025 10:17-0400 Diastolic blood pressure 74 mm[Hg] Mee Yary DO Work Phone: [facility] 06-07-2025 10:17-0400 Systolic blood pressure 118 mm[Hg] Mee Yary DO Work Phone: [facility] 05-30-2025 09:30-0400 Body height 165.1 cm Nohemy Hernandez MD Work Phone: [facility] 05-30-2025 09:30-0400 Body mass index (BMI) [Ratio] 27.09 kg/m2 Nohemy Hernandez MD Work Phone: [facility] 05-30-2025 09:30-0400 Body weight 73.85 kg Nohemy Hernandez MD Work Phone: [facility] 05-30-2025 09:30-0400 Diastolic blood pressure 73 mm[Hg] Nohemy Hernandez MD Work Phone: [facility] 05-30-2025 09:30-0400 Heart rate 83 /min Nohemy Hernandez MD Work Phone: [facility] 05-30-2025 09:30-0400 Systolic blood pressure 110 mm[Hg] Nohemy Hernandez MD Work Phone: [facility] 05-30-2025 08:57-0400 Body height 165.1 cm Nohemy Hernandez MD Work Phone: [facility] 05-16-2025 10:59-0400 Body mass index (BMI) [Ratio] 26.46 kg/m2 Mee Yary DO Work Phone: [facility] 05-16-2025 10:59-0400 Body weight 72.12 kg Mee Yary DO Work Phone: [facility] 05-16-2025 10:59-0400 Diastolic blood pressure 70 mm[Hg] Mee Yary DO Work Phone: [facility] 05-16-2025 10:59-0400 Systolic blood pressure 110 mm[Hg] Mee Yary DO Work Phone: [facility] 05-02-2025 15:42-0400 Body mass index (BMI) [Ratio] 26.26 kg/m2 Mee Yary DO Work Phone: [facility] 05-02-2025 15:42-0400 Body weight 71.58 kg Mee Yary DO Work Phone: [facility] 05-02-2025 15:42-0400 Diastolic blood pressure 70 mm[Hg] Mee Yary DO Work Phone: [facility] 05-02-2025 15:42-0400 Systolic blood pressure 104 mm[Hg] Mee Yary DO Work Phone: [facility] 04-18-2025 13:35-0400 Body mass index (BMI) [Ratio] 25.79 kg/m2 Mee Yary DO Work Phone: [facility] 04-18-2025 13:35-0400 Body weight 70.31 kg Mee Yary DO Work Phone: [facility] 04-18-2025 13:35-0400 Diastolic blood pressure 64 mm[Hg] Mee Yary DO Work Phone: [facility] 04-18-2025 13:35-0400 Systolic blood pressure 112 mm[Hg] Mee Yary DO Work Phone: [facility] 04-06-2025 11:47-0400 Body mass index (BMI) [Ratio] 25.76 kg/m2 Noms Nurse [facility] 04-06-2025 11:47-0400 Body weight 70.22 kg Noms Nurse [facility] Encounters Encounter Date Encounter Type Care Provider Facility Start: 06-27-2025 End: 06-27-2025 Bamboo flowsheet Paradise MORROW Work Phone: [facility] Start: 06-27-2025 End: 06-27-2025 Bamboo flowsheet Paradise MORROW Work Phone: [facility] Start: 06-27-2025 End: 06-27-2025 Office outpatient visit 15 minutes Paradise MORROW Work Phone: [facility] Comment on above: Third trimester preg helder ([facility]); 35 weeks gestation of ([facility]) Start: 06-20-2025 End: 06-20-2025 Office outpatient visit 15 minutes Mee Yary DO Work Phone: [facility] Comment on above: 34 weeks gestation o f ([facility]); Third trimester ([facility]); [place] History of placental abruption; Hepatitis C virus infection without hepatic coma, unspecified chronicity Start: 06-20-2025 End: 06-20-2025 ambulatory MEE YARY Not Available Start: 06-20-2025 End: 06-20-2025 Bamboo flowsheet Mee Yary DO Work Phone: [facility] Start: 06-20-2025 End: 06-20-2025 Bamboo flowsheet [...] flowsheet Mee Yary DO Work Phone: [facility] Start: 06-07-2025 End: 06-07-2025 ambulatory MEE YARY Not Available Start: 06-07-2025 End: 06-07-2025 Office outpatient visit 15 minutes Mee Yary DO Work Phone: [facility] Comment on above: Third trimester preg helder ([facility]); 32 weeks gestation of ([facility]); [place] History of placental abruption; Diabetes mellitus screening Start: 06-05-2025 End: 06-05-2025 Clinisync Result Encounter Mee Yary DO Work Phone: [facility]solic[facility] Start: 06-05-2025 End: 06-05-2025 Clinisync Result Encounter Mee Yary DO Work Phone: [facility] Start: 05-30-2025 End: 05-30-2025 Chart abstracting Nohemy Hernandez MD Work Phone: [facility] Start: 05-30-2025 End: 05-30-2025 Office outpatient new 45 minutes Nohemy Hernandez MD Work Phone: [facility] Comment on above: History of placental abruption (Primary Dx); Hepatitis C virus infection without hepatic coma, unspecified chronicity Start: 05-30-2025 End: 05-30-2025 ambulatory MEE [facility] Start: 05-21-2025 End: 05-21-2025 Clinisync Result [...] on above: 29 weeks gestation o f ([facility]); Third trimester ([facility]); Request for sterilization; H/O opioid abuse ([facility] History of placental abruption Start: 05-16-2025 End: 05-16-2025 ambulatory MEE YARY Not Available Start: 05-02-2025 End: 05-02-2025 ambulatory MEE YARY Not Available Start: 05-02-2025 End: 05-02-2025 Office outpatient visit 15 minutes Mee Yary DO Work Phone: [facility] Comment on above: Second trimester pre gnancy ([facility]); 27 weeks gestation of ([facility]); Request for sterilization; H/O opioid abuse [place] History of placental abruption Start: 05-02-2025 End: [...] Comment on above: Second trimester pre gnancy ([facility]); 25 weeks gestation of ([facility]) Start: 04-09-2025 End: 04-09-2025 Clinisync Result Encounter Paradise MORROW Work Phone: [facility] External Department Unsolicited Start: 04-09-2025 End: 04-09-2025 Clinisync Result Encounter Paradise MORROW Work Phone: [facility] External Department Unsolicited Start: 04-06-2025 End: 04-06-2025 Office outpatient visit 5 minutes [facility] Ob Yary Nurse [facility] [...] 03-27-2021 End: 03-28-2021 ambulatory Helder Monk MD Facility:[facility] Start: 12-06-2020 End: 12-07-2020 Patient encounter procedure [facility] Start: 12-06-2020 End: 12-06-2020 Subsequent hospital visit by physician [facility] Start: 11-11-2020 End: 11-12-2020 Patient encounter procedure [facility] Start: 05-30-2020 End: 05-31-2020 Patient encounter procedure [facility] Start: 05-30-2020 End: 05-30-2020 Subsequent hospital visit by physician [facility] Start: 01-01-2020 End: 01-02-2020 Patient encounter procedure [facility] Start: 01-01-2020 End: 01-01-2020 Subsequent hospital visit by physician [facility] Start: 09-20-2018 End: 09-21-2018 Patient encounter procedure Sidney Nava Facility:[id number] Procedures Date Procedure Procedure Detail Performing Clinician Start: 06-27-2025 Urnls dip stick/tabl et rgnt non-auto w/o micrscp Paradise MORROW Work Phone: Start: 06-20-2025 Urnls dip stick/tabl et rgnt non-auto w/o micrscp Mee Yary DO Work Phone: Start: 06-14-2025 [facility] (CLEAN/CATCH) 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 Mee Yary DO Work Phone: [...] Not In System Ref Prov Start: 05-21-2025 [facility] DRUG SCREEN RAPI D (URINE) Mee [...] 01-22-2025 US OB L= 14 WEEKS FETUS Eme Yary DO Work Phone: Start: 11-29-2024 [facility] PREG QUANT HCG Core y Yary [...] Adult BMI Screening Adult BMI Screen ing [facility] Start: 05-30-2026 Tobacco Screening Tobacco Screening [facility] Start: 07-05-2025 End: 07-05-2025 Patient encounter procedure [facility] Start: 07-04-2025 End: 07-04-2025 Patient encounter procedure 07/04/2025 10:50 AM EDT Routine [facility] [address] [place] [address] [place] [address] Mee Pringle DO [address] [place], [place] [id number] [facility] Start: 07-02-2025 Influenza vaccination [facility] Start: 06-27-2025 End: 06-27-2026 CULTURE, GROUP B STREP WITH SUSCEPTIBLITY CULTURE, GROUP B STREP WITH SUSCEPTIBLITY Lab Routine Third trimester ([facility]) Expected: 06/27/2025, Expires: 06/27/2026 [facility] Work [...] coma, unspecified chronicity Expected: 05/30/2025, Expires: 05/30/2026 [facility] Comment on above: Expected: 05/30/2025 , Expires: 05/30/2026 Start: 05-30-2025 End: 05-30-2025 Patient encounter procedure [facility] Start: 05-30-2025 End: 05-30-2025 Professional / ancillary services management 05/30/2025 10:30 AM EDT Ancillary Procedure [facility] [address] [place] [address] [facility] Start: 05-30-2025 Subsequent hospital visit by physician 05/30/2025 9:15 AM EDT Hospital Encounter [facility] [address] [place] [id number] [facility] Start: 05-16-2025 End: 11-16-2025 US biophysical profile w non stress test US biophysical profile w non stress test Imaging Routine H/O opioid abuse [place] History of placental abruption Expected: 05/16/2025 (Approximate), Expires: 11/16/2025 [facility] Work Phone: Comment on above: Expected: 05/16/2025 (Approximate), Expires: 11/16/2025 Start: 05-16-2025 End: 05-16-2025 Patient encounter procedure [facility] Comment on above: Arrived Start: 05-02-2025 End: 05-02-2025 Patient encounter procedure 05/02/2025 3:20 PM EDT Routine [facility] [address] [place] [id number] Mee Pringle, DO [address] [place] [address] [facility] Start: 04-18-2025 End: 08-18-2025 US for US OB follow up transabdominal approach Imaging Routine Second trimester ([facility]) Expected: 04/18/2025, Expires: 08/18/2025 [facility] Work Phone: Comment on above: Expected: 04/18/2025 , Expires: 08/18/2025 Start: 04-18-2025 End: 04-18-2025 Patient encounter procedure 04/18/2025 1:30 PM EDT Routine [facility] [address] [place] [phone] Mee Pringle, DO [address] [place] [address] [facility] Start: 04-06-2025 End: 04-06-2026 ABO/Rh ABO/Rh Lab Routine Missed menses , unspecified gestational age ([facility]) Expected: 04/06/2025 (Approximate), Expires: 04/06/2026 [facility] Comment on above: Expected: 04/06/2025 (Approximate), Expires: 04/06/2026 Start: 04-06-2025 End: 04-06-2026 Blood type and Indirect antibody screen panel - Blood Type and screen Lab Routine Missed menses , unspecified gestational age ([facility]) Expected: 04/06/2025 (Approximate), Expires: 04/06/2026 [facility] Work Phone: Comment on above: Expected: 04/06/2025 (Approximate), Expires: 04/06/2026 Start: 04-06-2025 End: 04-06-2026 CBC panel - Blood by Automated count CBC Lab Routine Diabetes mellitus screening Expected: 04/06/2025 (Approximate), Expires: 04/06/2026 [facility] Comment on above: Expected: 04/06/2025 (Approximate), Expires: 04/06/2026 Start: 04-06-2025 End: 04-06-2026 Drugs of abuse panel - Urine by Screen method Rapid drug screen, urine Lab Routine , unspecified gestational age ([facility]) Encounter for supervision of normal first in first trimester ([facility]) Expected: 04/06/2025 (Approximate), Expires: 04/06/2026 [facility] Comment on above: Expected: 04/06/2025 (Approximate), Expires: 04/06/2026 Start: 04-06-2025 End: 04-06-2026 Measurement of glucose 1 hour after glucose challenge for glucose tolerance test Glucose tolerance, 1 hour Lab Routine Diabetes mellitus screening Expected: 04/06/2025 (Approximate), Expires: 04/06/2026 [facility] Comment on above: Expected: 04/06/2025 (Approximate), Expires: 04/06/2026 Start: 04-06-2025 End: 07-07-2025 US for US OB 14+ weeks anatomy scan Imaging Routine Screening, , for anatomic survey ([facility]) Expected: 04/06/2025, Expires: 07/07/2025 [facility] Comment on above: Expected: 04/06/2025 , Expires: 07/07/2025 Start: 07-02-2024 COVID-19 Vaccine ( season) COVID-19 Vaccine ( season) [facility] Start: 07-02-2024 Influenza vaccination Influenza Vacc ine (#1) [facility] Start: 2022 Screening for malign ant neoplasm of cervix [facility] Start: 07-02-2020 Influenza vaccination Flu vaccine (# 1) [place], [place] Start: 2013 Screening for malign ant neoplasm of cervix Pap Smear [facility] Start: 2011 DTaP,Tdap and Td Vaccines (1 - Tdap) DTaP,Tdap and Td Vaccines (1 - Tdap) [facility] Start: 2010 Adult BMI Follow Up Plan Adult BMI Follow Up Plan [facility] Start: 2010 Adult BMI Screening Adult BMI Screen ing [facility] Start: 2004 Depression Screening Depression Scre ening [facility] Start: 2004 Tobacco Screening Tobacco Screening [facility] Start: 2003 DTaP,Tdap and Td Vaccines (6 - Tdap) DTaP,Tdap and Td Vaccines (6 - Tdap) [facility] End: 05-30-2026 Anti cariolipin AB IgG IgA IgM Anti cariolipin AB IgG IgA IgM Lab Routine History of placental abruption 1 Occurrences starting 05/30/2025 until 05/30/2026 [facility] Comment on above: 1 Occurrences starti ng 05/30/2025 until 05/30/2026 End: 05-30-2026 aPTT in Blood by Coagulation assay APTT Lab Routine History of placental abruption Hepatitis C virus infection without hepatic coma, unspecified chronicity 1 Occurrences starting 05/30/2025 until 05/30/2026 [facility] Comment on above: 1 Occurrences starti ng 05/30/2025 until 05/30/2026 Bacteria identified in Urine by Culture Urine culture Microbiology Routine Missed menses Ordered: 04/06/2025 [facility] Comment on above: Ordered: 04/06/2025 End: 05-30-2026 Beta-2 glycoprotein antibodies Beta-2 glycoprotein antibodies Lab Routine History of placental abruption 1 Occurrences starting 05/30/2025 until 05/30/2026 [facility] on above: 1 Occurrences starti ng 05/30/2025 until 05/30/2026 CBC W Auto Different ial panel - Blood CBC and differential Lab Routine Missed menses , unspecified gestational age ([facility]) Ordered: 04/06/2025 [facility] [employer] Comment on above: Ordered: 04/06/2025 End: 05-30-2026 Comprehensive metabolic 2000 panel - Serum or Plasma Comprehensive metabolic panel Lab Routine History of placental abruption Hepatitis C virus infection without hepatic coma, unspecified chronicity 1 Occurrences starting 05/30/2025 until 05/30/2026 [facility] Work Phone: Comment on above: 1 Occurrences starti ng 05/30/2025 until 05/30/2026 End: 05-30-2026 DRVVT DRVVT Lab Routine History of placental abruption 1 Occurrences starting 05/30/2025 until 05/30/2026 [facility] Comment on above: 1 Occurrences starti ng 05/30/2025 until 05/30/2026 Hemoglobin A1c/Hemoglobin.total in Blood Hemoglobin A1c Lab Routine Missed menses , unspecified gestational age ([facility]) Ordered: 04/06/2025 [facility] [employer] Comment on above: Ordered: 04/06/2025 Hemoglobin A1c/Hemoglobin.total in Blood Hemoglobin A1c Lab Routine Diabetes mellitus screening Ordered: 06/07/2025 [facility] Work Phone: Comment on above: Ordered: 06/07/2025 Hepatitis B virus surface Ag [Presence] in Serum or Plasma by Immunoassay Hepatitis B surface antigen Lab Routine Missed menses , unspecified gestational age ([facility]) Ordered: 04/06/2025 [facility] [employer] Comment on above: Ordered: 04/06/2025 Hepatitis C virus Ab [Presence] in Serum or Plasma by Immunoassay Hepatitis C antibody Lab Routine Missed menses , unspecified gestational age ([facility]) Ordered: 04/06/2025 [facility] Comment on above: Ordered: 04/06/2025 HIV-1/HIV-2 antigen/antibody combination immunoassay HIV-1 and HIV-2 antibodies Lab Routine Missed menses , unspecified gestational age ([facility]) Ordered: 04/06/2025 [facility] Comment on above: Ordered: 04/06/2025 End: 05-30-2026 Protime & INR Protime & INR Lab Routine History of placental abruption Hepatitis C virus infection without hepatic coma, unspecified chronicity 1 Occurrences starting 05/30/2025 until 05/30/2026 [facility] Comment on above: 1 Occurrences starti ng 05/30/2025 until 05/30/2026 Reagin Ab [Presence] in Serum by RPR RPR Lab Routine Missed menses , unspecified gestational age ([facility]) Ordered: 04/06/2025 [facility] Comment on above: Ordered: 04/06/2025 Rubella antibody, IgG Rubella an tibody, IgG Lab Routine Missed menses , unspecified gestational age ([facility]) Ordered: 04/06/2025 [facility] Comment on above: Ordered: 04/06/2025 Payers Date Payer Category Payer Medicaid (Managed Care) [employer] [id number] 2021 Unknown 2019 Unknown [facility] xxxxxxxxxxxx 2019-Present [phone] [place] [address] xxxxxxxxxxxx [id number] 2019 Unknown [facility] [id number] 2019-Present [phone] [place] [address] [id number]. [id number] 2019 Medicaid HMO [employer] [id number] 1992 Unknown [id number] 2.16.840.1.157230.3.579.2. 173 1992 Unknown [id number] 2.16.840.1.525351.3.579.2. 173 1992 Unknown [id number] 2.16.840.1.074136.3.579.2. 173 1992 Unknown [id number] 2.16.840.1.572596.3.579.2. 173 1992 Unknown [id number] 2.16.840.1.433642.3.579.2. 196 1992 Unknown [id number] 2.16.840.1.696081.3.579.2. 593 1992 Unknown [id number] 2.16.840.1.945421.3.579.2. 593 1992 Unknown [id number] 2.16.840.1.661552.3.579.2. 593 1992 Unknown [id number] 2.16.840.1.976100.3.579.2. 593 1992 Unknown [id number] 2.16.840.1.528281.3.579.2. 593 1992 Unknown [id number] 2.16.840.1.196849.3.579.2. 593 1992 Unknown [id number] 2.16.840.1.133467.3.579.2. 1286 1992 Unknown [id number] 2.16.840.1.815969.3.579.2. 1286 1992 Unknown [id number] 2.16.840.1.846413.3.579.2. 1259 1992 Unknown [id number] 2.16.840.1.750329.3.579.2. 1259 1992 Unknown [id number] 2.16.840.1.674836.3.579.2. 1259 1992 Unknown [id number] 2.16.840.1.034447.3.579.2. 1259 1992 Unknown [id number] 2.16.840.1.694779.3.579.2. 9 1992 Unknown [id number] 2.16.840.1.976016.3.579.2. 1259 1959 Unknown [id number] Social History Date Type Detail Facility Tobacco smoking stat [facility] Unknown if ever smoked [place], [place] Start: 1992 Sex Assigned At Not on file [place], [place] Start: 04-23-2023 End: 05-30-2025 Tobacco smoking status AKIS Smokes tobacco daily [facility] History of [...] Start: 05-30-2025 Alcoholic beverage intake Ex-drinker (finding) [facility] Childcare Unknown [facility] Start: 06-06-2015 Sex Female (finding) [facility] Start: 05-30-2025 Tobacco smoking stat [facility] Ex-smoker [facility] History of tobacco use Current smoker [facility] Clinical Notes 04-06-2025 to 06-27-2025 CRISTHIAN Sanders - 06/27/2025 9:50 AM EDHelen Aguilar, [facility] - 06/20/2025 2:30 PM EDAshli Lynn, [facility] - 06/07/2025 9:40 AM Clive Raya, [facility] - 05/30/2025 10:30 AM EDT Note Date [...] 28.0-28.9,adult Drug abuse, opioid type [place] Encounter for follow-up Encounter for gynecological examination (general) (routine) without abnormal findings Hepatitis C Labial cyst Pain pelvic HISTORY PAST MEDICAL HISTORY SOCIAL HISTORY Past Medical History: Diagnosis Date Abscess of labia Bipolar disorder (HCC) BMI 28.0-28.9,adult Drug abuse, opioid type ([facility] Encounter for follow-up Encounter for gynecological examination [...] ASSESSMENT & PLAN ICD-10-CM 1. Third trimester ([facility]) Z34.93 POCT urinalysis dipstick manually resulted CULTURE, GROUP B STREP WITH SUSCEPTIBLITY CULTURE, GROUP B STREP WITH SUSCEPTIBLITY CANCELED: POCT urinalysis dipstick manually resulted CANCELED: CULTURE, GROUP B STREP WITH SUSCEPTIBLITY CANCELED: CULTURE, GROUP B STREP WITH SUSCEPTIBLITY 2. 35 weeks gestation of ([facility]) Z3A.35 Return OB: Patient is doing well [...] of: CRISTHIAN Sanders documented in this encounter [facility] 06-20-2025 History of Present illness Narrative Reason [...] 28.0-28.9,adult Drug abuse, opioid type [place] Encounter for follow-up Encounter for gynecological examination (general) (routine) without abnormal findings Hepatitis C Labial cyst Pain pelvic HISTORY PAST MEDICAL HISTORY SOCIAL HISTORY Past Medical History: Diagnosis Date Abscess of labia Bipolar disorder (HCC) BMI 28.0-28.9,adult Drug abuse, opioid type ([facility] Encounter for follow-up Encounter for gynecological examination [...] nursing note reviewed. Exam conducted with a geophysical operator present. Vitals: Estimated body mass index is 28.09 kg/m as calculated from the following: Height as of 12/09/22: 5' 5 . Weight as of this encounter: 168 lb 12.8 oz. BP: 120/80 No LMP recorded. Patient is . ASSESSMENT & PLAN ICD-10-CM 1. 34 weeks gestation of ([facility]) Z3A.34 POCT urinalysis dipstick manually resulted 2. Third trimester ([facility]) Z34.93 POCT urinalysis dipstick manually resulted 3. H/O opioid abuse ([facility] F11.11 4. History of placental abruption Z87.59 [...] Mee Pringle DO documented in this encounter [facility] 06-07-2025 History of Present illness Narrative Reason [...] 28.0-28.9,adult Drug abuse, opioid type ([facility] Encounter for follow-up Encounter for gynecological examination (general) (routine) without abnormal findings Labial cyst Pain pelvic HISTORY PAST MEDICAL HISTORY SOCIAL HISTORY Past Medical History: Diagnosis Date Abscess of labia Bipolar disorder (HCC) BMI 28.0-28.9,adult Drug abuse, opioid type ([facility] Encounter for follow-up Encounter for gynecological examination [...] nursing note reviewed. Exam conducted with a geophysical operator present. Vitals: Estimated body mass index is 27.46 kg/m as calculated from the following: Height as of 12/09/22: 5' 5 . Weight as of this encounter: 165 lb. BP: 118/74 No LMP recorded. Patient is . ASSESSMENT & PLAN ICD-10-CM 1. Third trimester ([facility]) Z34.93 POCT urinalysis dipstick manually resulted 2. 32 weeks gestation of ([facility]) Z3A.32 3. H/O opioid abuse ([facility] F11.11 4. History of placental abruption Z87.59 [...] Mee Pringle DO documented in this encounter [facility] 05-30-2025 History of Present illness Narrative Headache/epigastric [...] No Have you been seen here at [facility] in a previous ? No Recent ER visits or hospitalizations? No Bring blood sugar log or meter with you today? (Please bring them with you for every visit at [facility]) N/A Flu vaccine (Sep-December)? N/A Any concerns [...] intensive care unit. The overall risk of Onasyjji-Je-Qkviw-Transmission (MTCT) during is approximately 4-8%. If the [...] C infection until after 18 months. The [place] [employer] and CDC recommend screening [...] and counseling, coordination of care which was [id number]. [facility] History of Present illness Narrative Reason [...] Diagnosis Date Abscess of labia Bipolar disorder ([facility]) BMI 28.0-28.9,adult Drug abuse, opioid type ([facility] Encounter for follow-up Encounter for gynecological examination (general) (routine) without abnormal findings Labial cyst Pain pelvic HISTORY PAST MEDICAL HISTORY SOCIAL HISTORY Past Medical History: Diagnosis Date Abscess of labia Bipolar disorder ([facility]) BMI 28.0-28.9,adult Drug abuse, opioid type ([facility] Encounter for follow-up Encounter for gynecological examination [...] nursing note reviewed. Exam conducted with a geophysical operator present. Vitals: Estimated body mass index is 26.46 kg/m as calculated from the following: Height as of 12/09/22: 5' 5 . Weight as of this encounter: 159 lb. BP: 110/70 No LMP recorded. Patient is . ASSESSMENT & PLAN ICD-10-CM 1. 29 weeks gestation of ([facility]) Z3A.29 POCT urinalysis dipstick manually resulted 2. Third trimester ([facility]) Z34.93 POCT urinalysis dipstick manually resulted 3. Request for sterilization Z30.2 4. H/O opioid abuse ([facility] F11.11 5. History of placental abruption Z87.59 [...] Mee Pringle DO documented in this encounter [facility] 05-02-2025 History of Present illness Narrative Reason [...] 28.0-28.9,adult Drug abuse, opioid type ([facility] Encounter for follow-up Encounter for gynecological examination (general) (routine) without abnormal findings Labial cyst Pain pelvic HISTORY PAST MEDICAL HISTORY SOCIAL HISTORY Past Medical History: Diagnosis Date Abscess of labia Bipolar disorder (HCC) BMI 28.0-28.9,adult Drug abuse, opioid type ([facility] Encounter for follow-up Encounter for gynecological examination [...] nursing note reviewed. Exam conducted with a geophysical operator present. Vitals: Estimated body mass index is 26.26 kg/m as calculated from the following: Height as of 12/09/22: 5' 5 . Weight as of this encounter: 157 lb 12.8 oz. BP: 104/70 No LMP recorded. Patient is . ASSESSMENT & PLAN ICD-10-CM 1. Second trimester ([facility]) Z34.92 2. 27 weeks gestation of ([facility]) Z3A.27 3. Request for sterilization Z30.2 4. H/O opioid abuse ([facility] F11.11 5. History of placental abruption Z87.59 [...] Mee Pringle DO documented in this encounter [facility] 04-18-2025 History of Present illness Narrative Reason [...] Diagnosis Date Abscess of labia Bipolar disorder ([facility]) BMI 28.0-28.9,adult Drug abuse, opioid type ([facility] Encounter for follow-up Encounter for gynecological examination (general) (routine) without abnormal findings Labial cyst Pain pelvic HISTORY PAST MEDICAL HISTORY SOCIAL HISTORY Past Medical History: Diagnosis Date Abscess of labia Bipolar disorder ([facility]) BMI 28.0-28.9,adult Drug abuse, opioid type ([facility] Encounter for follow-up Encounter for gynecological examination [...] nursing note reviewed. Exam conducted with a geophysical operator present. Vitals: Estimated body mass index is 25.79 kg/m as calculated from the following: Height as of 12/09/22: 5' 5 . Weight as of this encounter: 155 lb. BP: 112/64 No LMP recorded. Patient is . ASSESSMENT & PLAN ICD-10-CM 1. Second trimester ([facility]) Z34.92 POCT urinalysis dipstick manually resulted 2. 25 weeks gestation of ([facility]) Z3A.25 Return OB: Patient presents today for [...] Mee Pringle DO documented in this encounter [facility] 04-06-2025 History of Present illness Narrative Reason [...] Diagnosis Date Abscess of labia Bipolar disorder ([facility]) BMI 28.0-28.9,adult Drug abuse, opioid type ([facility] Encounter for follow-up Encounter for gynecological examination [...] dipstick manually resulted , unspecified gestational age ([facility]) - Type and screen; Future - ABO/Rh; Future - CBC and differential - Hemoglobin A1c - RPR - Rubella antibody, IgG - Hepatitis B surface antigen - Hepatitis C antibody - HIV-1 and HIV-2 antibodies - Rapid drug screen, urine; Future Encounter for supervision of normal first in first trimester ([facility]) - Rapid drug screen, urine; Future Screening, , for anatomic survey ([facility]) - OB 14+ weeks anatomy scan; Future Diabetes mellitus screening - CBC; Future - Glucose tolerance, 1 hour; Future headache in second trimester ([facility]) - magnesium oxide (Mag-Ox) 400 MG tablet; [...] or undercooked meat, and stay away from [facility]. 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 ACP-Advance Directive ACP-Power of Elementary School Director Additional Source Comments INFORMATION SOURCE (unrecogn ized section and content) DATE CREATED AUTHOR 10/10/2018 [facility] DATE CREATED AUTHOR AUTHOR'S ORGANIZ ATION 12/06/2020 [facility] DATE CREATED AUTHOR AUTHOR'S ORGANIZ ATION 03/29/2021 [facility] DATE CREATED AUTHOR AUTHOR'S ORGANIZ ATION 12/10/2022 [facility] DATE CREATED AUTHOR AUTHOR'S ORGANIZ ATION 06/01/2025 [facility] DATE CREATED AUTHOR AUTHOR'S ORGANIZ ATION 06/22/2025 [facility] Reason for Visit (unrecogniz ed section and content) Reason Comments Amenorrhea Reason Comments Routine Visit Reason Comments Hepatitis C Current Everyday Smoker Care Teams (unrecognized sec tion and content) Dress Fitter Relationship Specialty Start Date End Date No Pcp, [place] [address] PCP - General Family Medicine 04/27/20 Dress Fitter Relationship Specialty Start Date End Date No Pcp, [place] [address] PCP - General Family Medicine 04/27/20 Dress Fitter Relationship Specialty Start Date End Date No Pcp, [place] [address] PCP - General Family Medicine 04/27/20 FOR [...] BE BASED ON THE PRIMARY CLINICAL RECORDS. [facility]. provides no warranty or guarantee of the accuracy or completeness of information in this document.
[2025-06-28 11:17] VITALS: BP 110/63; PULSE 82
== END 2025-06-28 11:38 | disposition home or self-care (01) ==
LOC: FBCO 10:55 → FBC 11:13
PROVIDERS: PCP Nurse Practitioner Family; Visit Provider Obstetrics & Gynecology
DX: O43.893 Other placental disorders, third trimester (principal); Z3A.35 35 weeks gestation of pregnancy
CPT/HCPCS: 59025

== ENCOUNTER 2025-07-01 06:34 | Observation (INO) | payer OTHER, SELFPAY ==
--- OUTSIDE RECORDS SUMMARY | 2025-07-01 06:39 | XMS_ITS | CCD ---
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 Role Phone Sidney Nava Unavailable Unavailable [...] No Pcp Primary Care Provider Unavailabl e LENIN PRINGLEY R Referring Unavailable NO PCP, NO PCP Primary Care Unavailable NOHEMY HERNANDEZ Attending Unavailable MEE PRINGLE R Referring Unavailable NO PCP, NO PCP Primary Care Unavailable LENIN PRINGLEY Attending Unavailable MEE PRINGLE Attending Unavailable MEE PRINGLE Attending Unavailable LENIN PRINGLEY Attending Unavailable YARY, MEE Attending Unavailable PARADISE OLVERA Attending Unavailable Allergies Allergy Classification Reported Allergen(s) Allergy Type Date of Onset Reaction(s) Facility (2 sources) Penicillins; Translations: [PENICILLINS] Drug allergy (disorder) 3 [facility] Repository (20 sources) Penicillin G Drug Allergy 5 [facility] Healthcare Work Phone: (3 sources) Penicillins Propensity to adverse reactions to drug 0 [facility] coUrbanize System (11 sources) Penicillins Propensity to adverse reactions 0 [facility] Healthcare Medications Current Medications Medication [...] tablet Indications: headache in second trimester ([facility]) Take 1 tablet (400 mg) by mouth [...] 07-31-2022 Episodic Other aftercare (5 sources) 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; Translations: [OTH SNF CURRENT DRUG THERAPY] Onset: 07-31-2022 Episodic Other [...] UA Negative Negative - 4(70) +++ mg/dL [facility] Blood, UA Negative Negative - 50 Amador/mcL [facility] Clarity, UA Clear [facility] Color, UA Yellow [facility] Glucose, UA Negative Negative - 1999(110) ++++ mg/dL [facility] Interpretation and review of laboratory results Abnormal [facility] Ketones, UA Negative Negative - 160(16) ++++ mg/dL [facility] Leukocytes, UA Positive Negative - 500+++ Camille/mcL [facility] Comment on above: Trace Nitrite, UA Negative Negative - Positive [facility] pH, UA 6.5 5 - 9 [facility] Protein, UA Negative Negative - 1999(20) ++++ mg/dL [facility] Spec Grav, UA 1005 1 - 1.03 [facility] Urobilinogen, UA 0.2 0.2 - 12 mg/dL [facility] Urinalysis macro (dipstick) panel (U)on 06-20-2025 Bilirubin, UA Negative Negative - 4(70) +++ mg/dL [facility] Blood, UA Negative Negative - 50 Amador/mcL [facility] Clarity, UA Clear [facility] Color, UA Yellow [facility] Glucose, UA Negative Negative - 2000(110) ++++ mg/dL [facility] Interpretation and review of laboratory results Abnormal [facility] Ketones, UA Negative Negative - 160(16) ++++ mg/dL [facility] Leukocytes, UA Positive Negative - 500+++ Camille/mcL [facility] Nitrite, UA Negative Negative - Positive [facility] pH, UA 6.5 5 - 9 [facility] Protein, UA Negative Negative - 1999(20) ++++ mg/dL [facility] Spec Grav, UA 1.01 1 - 1.03 [facility] Urobilinogen, UA 1.0 0.2 - 12 mg/dL [facility] UA (CLEAN/CATCH) SENIOR RECRUITER/DEMETRA RO IF IND.on 06-14-2025 BILIRUBIN URINE Negative NEGATIVE [facility] BLOOD URINE Negative NEGATIVE [facility] Clarity (U) CLEAR CLEAR [facility] Color (U) LT. YELLOW YELLOW [facility] GLUCOSE URINE UA Negative NEGATIVE mg/dL [facility] Interpretation and review of laboratory results Abnormal [facility] Ketones Ql (U) Negative NEGATIVE mg/dL [facility] Leukocyte esterase Test strip Ql (U) TRACE Abnormal NEGATIVE [facility] NITRITE URINE Negative NEGATIVE [facility] pH (U) 7.0 [pH] 5.0 - 9.0 [facility] PROTEIN URINE Negative NEG/TRACE mg/dL [facility] SPECIFIC GRAVITY URINE <=1.005 Abnormal 1.005 - 1.025 [facility] URINE MICROSCOPIC INDICATED YES [facility] UROBILINOGEN URINE 0.2 EU/dL 0.2 - 1.0 EU/dL [facility] US OB BPP W NON-STRESS on 06-11-2025 [place] [address] Ultrasound Report Signed Patient: CARMELITA CASON MR#: [id number] : 1990 Acct:[id number] Age/Sex: 34 / F ADM Date: 06/11/25 Loc: US Attending Dr: Mee Pringle D.O. Ordering Physician: Mee Pringle D.O. Date of Service: 06/11/25 Procedure(s): US OB BPP w non-stress Accession Number(s): [id number] cc: ROMEO GAR ; Mee Pringle D.O. [address] [address] Patient Name: CARMELITA CASON MRN: [facility]:[id number] date: 1990 Sex: F Assigned Patient Location: [facility] Current Patient Location: Accession/Order Number: [id number] Exam Date: 06/11/2025 11:44 Report Date: 06/11/2025 11:45 At the request of: MEE PRINGLE DO Procedure: US OB BPP w non-stress Biophysical profile. Reason for exam: History of placental abruption COMPARISON: 06/05/2025 TECHNIQUE: Transabdominal imaging of the gravid uterus was obtained. FINDINGS: The nail expert reports a BPP of 8 out of 8. ELIZABETH is normal at 21.3 cm. heart rate 142 bpm. US/US OB BPP w non-stress IMPRESSION: BPP 8 out of 8. Impression dictated by: Serafin Sorto Jr., D.O. 06/11/2025 11:45 AM Dictation Location: [place] [address] Electronically authenticated by: [id number] Y Date: 06/11/2025 11:45 Dictated By: Serafin Sorto M.D. Signed By: 06/11/25 1148 DD/ 1145 TD/TT: Inspector Advanced Composite: [facility] Radiology, Radiologist, MD - 06/11/2025 [place] [address] Ultrasound Report Signed Patient: CARMELITA CASON MR#: [id number] : 1990 Acct:[id number] Age/Sex: 34 / F ADM Date: 06/11/25 Loc: US Attending Dr: Mee Pringle D.O. Ordering Physician: Mee Pringle D.O. Date of Service: 06/11/25 Procedure(s): US OB BPP w non-stress Accession Number(s): [id number] cc: ROMEO GAR ; Mee Pringle D.O. The [address] [address] Patient Name: CARMELITA CASON MRN: [facility]:[id number] date: 1990 Sex: F Assigned Patient Location: [facility] Current Patient Location: Accession/Order Number: [id number] Exam Date: 06/11/2025 11:44 Report Date: 06/11/2025 11:45 At the request of: MEE PRINGLE DO Procedure: US OB BPP w non-stress Biophysical profile. Reason for exam: History of placental abruption COMPARISON: 06/05/2025 TECHNIQUE: Transabdominal imaging of the gravid uterus was obtained. FINDINGS: The nail expert reports a BPP of 8 out of 8. ELIZABETH is normal at 21.3 cm. heart rate 142 bpm. US/US OB BPP w non-stress IMPRESSION: BPP 8 out of 8. Impression dictated by: Serafin Sorto Jr., D.O. 06/11/2025 11:45 AM Dictation Location: [employer] Electronically authenticated by: [id number] Y Date: 06/11/2025 11:45 Dictated By: Serafin Sorto M.D. Signed By: 06/11/25 1148 DD/ 1145 TD/TT: Inspector Advanced Composite: [facility] Radiology Study observation (narrative) [facility] US OB BPP W NON-STRESS Ordered By: Radiologist Radiology on 06-11-2025 [facility] Work Phone: MLR HEMOGLOBIN A1Con 025 Glucose [Mass/Vol] 85 mg/dL [facility] HbA1c (Bld) [Mass fraction] 4.6 % 4.5 - 6.2 % [facility] Comment on above: ADA RECOMMENDED LIMI T 4.0 - 6.0 ADA THERAPEUTIC TARGET < 7.0 ACTION SUGGESTED > 7.0 [facility] Urinalysis macro (dipstick) panel (U)on 06-07-2025 Bilirubin, UA Negative Negative - 4(70) +++ mg/dL [facility] Blood, UA Negative Negative - 50 Amador/mcL [facility] Clarity, UA Clear [facility] Color, UA Yellow [facility] Glucose, UA Negative Negative - 2000(110) ++++ mg/dL [facility] Interpretation and review of laboratory results Abnormal [facility] Ketones, UA Negative Negative - 160(16) ++++ mg/dL [facility] Leukocytes, UA 3+ Negative - 500+++ Camille/mcL [facility] Nitrite, UA Negative Negative - Positive [facility] pH, UA 7.5 5 - 9 [facility] Protein, UA Negative Negative - 1999(20) ++++ mg/dL [facility] Spec Grav, UA 1.01 1 - 1.03 [facility] Urobilinogen, UA 1.0 0.2 - 12 mg/dL [facility] US OB BPP W NON-STRESS on 06-05-2025 [place] [address] Ultrasound Report Signed Patient: CARMELITA CASON MR#: [id number] : 1990 Acct:[id number] Age/Sex: 34 / F ADM Date: 06/05/25 Loc: US Attending Dr: Mee Pringle D.O. Ordering Physician: Mee Pringle D.O. Date of Service: 06/05/25 Procedure(s): US OB BPP w non-stress Accession Number(s): [id number] cc: ROMEO GAR ; Mee Pringle D.O. The [place] [address] Patient Name: CARMELITA CASON MRN: [id number]:[id number] date: 1990 Sex: F Assigned Patient Location: Current Patient Location: Accession/Order Number: [id number] Exam Date: 06/05/2025 11:53 Report Date: 06/05/2025 12:03 At the request of: MEE PRINGLE DO Procedure: US OB BPP w non-stress Biophysical profile. Reason for exam: History of opioid abuse COMPARISON: None TECHNIQUE: Transabdominal imaging of the gravid uterus was obtained. FINDINGS: The nail expert reports a BPP of 8 out of 8. ELIZABETH is normal at 21 cm. heart rate 135 bpm. US/US OB BPP w non-stress IMPRESSION: BPP 8 out of 8. Impression dictated by: Serafin Sorto Jr., D.O. 06/05/2025 12:03 PM Dictation Location: [place] [address] Electronically authenticated by: [id number] Y Date: 06/05/2025 12:03 Dictated By: Serafin Sorto M.D. Signed By: 06/05/251205 DD/ 02 TD/TT: Inspector Advanced Composite: [facility] Radiology, Radiologist, - 06/05/2025 [place] [address] Ultrasound Report Signed Patient: CARMELITA CASON MR#: [id number] : 1990 Acct:[id number] Age/Sex: 34 / F ADM Date: 06/05/25 Loc: US Attending Dr: Mee Pringle D.O. Ordering Physician: Mee Pringle D.O. Date of Service: 06/05/25 Procedure(s): US OB BPP w non-stress Accession Number(s): [id number] cc: ROMEO GAR ; Mee Pringle D.O. The [place] [address] Patient Name: CARMELITA CASON MRN: [facility]:[id number] date: 1990 Sex: F Assigned Patient Location: US Current Patient Location: Accession/Order Number: [id number] Exam Date: 06/05/2025 11:53 Report Date: 06/05/2025 12:03 At the request of: MEE PRINGLE DO Procedure: US OB BPP w non-stress Biophysical profile. Reason for exam: History of opioid abuse COMPARISON: None TECHNIQUE: Transabdominal imaging of the gravid uterus was obtained. FINDINGS: The nail expert reports a BPP of 8 out of 8. ELIZABETH is normal at 21 cm. heart rate 135 bpm. US/US OB BPP w non-stress IMPRESSION: BPP 8 out of 8. Impression dictated by: Serafin Sorto Jr., D.O. 06/05/2025 12:03 PM Dictation Location: [place] [address] Electronically authenticated by: [id number] Y Date: 06/05/2025 12:03 Dictated By: Serafin Sorto M.D. Signed By: 06/05/251205 DD/ 02 TD/TT: Inspector Advanced Composite: [facility] Radiology Study observation (narrative) [facility] US OB BPP W NON-STRESS Ordered By: Radiologist Radiology on 06-05-2025 [facility] Work Phone: CBC without diffOrdered By: Paradise Raya on 05-21-2025 Hematocrit (Bld) [Volume fraction] 30.6 % [facility] Hemoglobin (Bld) [Mass/Vol] 10.8 g/dL [facility] Platelets (Bld) [#/Vol] 176 10*3/uL [facility] Rbc Mcv (Fl) By Automated Count 79.3 [facility] Drug Screen, Urineon 025 Amphetamine/Methamphet amine Negative [facility] Barbiturates Negative [facility] Benzodiazepines Negative [facility] Cocaine Metabolite Negative [facility] Methadone Negative [facility] Opiates Negative [facility] Oxycodone Negative [facility] Phencyclidine Negative [facility] Thc Marijuana, Urine Negative [facility] HBV surface Ag IA Qlon 05-21 Hepatitis B Surface Antigen Negative [facility] HCV Ab IA Qlon 05-21-2025 HCV Ab Ql (S) Reactive [facility] HIV 1+2 Ab+HIV1 p24 Ag IA Ql on 05-21-2025 HIV 1&2 AB/AG Non-Reactive [facility] Hemoglobin A1con 05-21-2025 HbA1c (Bld) [Mass fraction] 4.7 % 4.0 - 6.0 % [facility] No Panel Informationon 05-21 [facility] Rubella IGG immune statuson 05-21-2025 Rubella immune IgG [facility] T. pallidum IgG+IgM IA Ql (S )on 05-21-2025 Syphilis Non-Reactive [facility] DRUG SCREEN RAPID (URINE )on 05-21-2025 AMPHETAMINE SCREEN URINE Negative NEGATIVE [facility] BARBITURATES SCREEN URINE Negative NEGATIVE [facility] BENZODIAZEPINES SCREEN URINE Negative NEGATIVE [facility] BUPRENORPHINE SCREEN URINE Positive Abnormal NEGATIVE [facility] Comment on above: DRUG CLASS TEST [...] 300 ng/mL CANNABINOID SCREEN URINE Negative NEGATIVE [facility] COCAINE SCREEN URINE Negative NEGATIVE [facility] Interpretation and review of laboratory results Abnormal [facility] METHADONE SCREEN URINE Negative NEGATIVE NO [facility] METHAMPHETAMINES SCREEN URINE Negative NEGATIVE [facility] OPIATE SCREEN URINE Negative NEGATIVE [facility] OXYCODONE SCREEN URINE Negative NEGATIVE NO [facility] PHENCYCLIDINE SCREEN URINE Negative NEGATIVE [facility] TRICYCLIC ANTIDEPRESSANT URINE Negative NEGATIVE [facility] Type and screenon 05-21-2025 Abo/Rh(D) Positive [facility] Urinalysis macro (dipstick) panel (U)on 05-16-2025 Bilirubin, UA Negative Negative - 4(70) +++ mg/dL [facility] Blood, UA Negative Negative - 50 Amador/mcL [facility] Clarity, UA Clear [facility] Color, UA Yellow [facility] Glucose, UA Negative Negative - 1999(110) ++++ mg/dL [facility] Interpretation and review of laboratory results Abnormal [facility] Ketones, UA Negative Negative - 160(16) ++++ mg/dL [facility] Leukocytes, UA Moderate Negative - 500+++ Camille/mcL [facility] Nitrite, UA Negative Negative - Positive [facility] pH, UA 6.5 5 - 9 [facility] Protein, UA Negative Negative - 1999(20) ++++ mg/dL [facility] Spec Grav, UA 1.02 1 - 1.03 [facility] Urobilinogen, UA 1.0 0.2 - 12 mg/dL [facility] Urinalysis macro (dipstick) panel (U)on 04-18-2025 Bilirubin, UA Negative Negative - 4(70) +++ mg/dL [facility] Blood, UA Negative Negative - 50 Amador/mcL [facility] Clarity, UA Clear [facility] Color, UA Yellow [facility] Glucose, UA Negative Negative - 1999(110) ++++ mg/dL [facility] Interpretation and review of laboratory results Abnormal [facility] Ketones, UA Negative Negative - 160(16) ++++ mg/dL [facility] Leukocytes, UA Positive Negative - 500+++ Camille/mcL [facility] Nitrite, UA Negative Negative - Positive [facility] pH, UA 7.5 5 - 9 [facility] Protein, UA Negative Negative - 2000(20) ++++ mg/dL [facility] Spec Grav, UA 1.015 1 - 1.03 [facility] Urobilinogen, UA 0.2 0.2 - 12 mg/dL [facility] No Panel InformationOrdered By: Radiologist Radiology on 04-09-2025 [facility] Work Phone: No Panel Informationon 04-09 Radiology Study observation (narrative) [facility] US OB ANATOMYon 04-09-[address] [address] Ultrasound Report Signed Patient: CARMELITA CASON MR#: [id number] : 1990 Acct:[id number] Age/Sex: 34 / F ADM Date: 04/09/25 Loc: US Attending Dr: Paradise Olvera Ordering Physician: Paradise Olvera Date of Service: 04/09/25 Procedure(s): US OB anatomy Accession Number(s): [id number] cc: Paradise Olvera; ROMEO GAR [address] [address] Patient Name: CARMELITA CASON MRN: [id number]:[id number] date: 1990 Sex: F Assigned Patient Location: Current Patient Location: US Accession/Order Number: [id number] Exam Date: 04/09/2025 12:20 Report Date: 04/09/2025 [...] all 4 extremities were surveyed by the nail expert. No abnormalities were detected. The stomach, bladder, [...] Zelaya M.D. 04/09/2025 1:01 PM Dictation Location: [place] [address] Electronically authenticated by: [id number] Y Date: 04/09/2025 13:01 Dictated By: Raine Zelaya M.D. Signed By: 04/09/25 1304 DD/ 1301 TD/TT: Inspector Advanced Composite: [facility] Radiology, Radiologist, MD - 04/09/2025 [place] [address] Ultrasound Report Signed Patient: CARMELITA CASON MR#: [id number] : 1990 Acct:[id number] Age/Sex: 34 / F ADM Date: 04/09/25 Loc: US Attending Dr: Paradise Olvera Ordering Physician: Paradise Olvera Date of Service: 04/09/25 Procedure(s): US OB anatomy Accession Number(s): [id number] cc: Paradise Olvera; ROMEO GAR The [place] [address] Patient Name: CARMELITA CASON MRN: [id number]:[id number] date: 1990 Sex: F Assigned Patient Location: Current Patient Location: US Accession/Order Number: [id number] Exam Date: 04/09/2025 12:20 Report Date: 04/09/2025 [...] all 4 extremities were surveyed by the nail expert. No abnormalities were detected. The stomach, bladder, [...] Zelaya M.D. 04/09/2025 1:01 PM Dictation Location: [place] [address] Electronically authenticated by: [id number] Y Date: 04/09/2025 13:01 Dictated By: Raine Zelaya M.D. Signed By: 04/09/25 1304 DD/ 1301 TD/TT: Inspector Advanced Composite[facility] CERV[facility]EN[facility] [address] [address] Ultrasound Report Signed Patient: CARMELITA CASON MR#: [id number] : 1990 Acct:[id number] Age/Sex: 34 / F ADM Date: 04/09/25 Loc: US Attending Dr: Paradise Olvera Ordering Physician: Paradise Olvera Date of Service: 04/09/25 Procedure(s): US OB cervical length Accession Number(s): [id number] cc: Paradise Olvera; ROMEO GAR [address] [address] Patient Name: CARMELITA CASON MRN: [id number]:[id number] date: 1990 Sex: F Assigned Patient Location: US Current Patient Location: US Accession/Order Number: [id number] Exam Date: 04/09/2025 12:20 Report Date: 04/09/2025 [...] all 4 extremities were surveyed by the nail expert. No abnormalities were detected. The stomach, bladder, [...] Zelaya M.D. 04/09/2025 1:01 PM Dictation Location: [place] [address] Electronically authenticated by: [id number] Y Date: 04/09/2025 13:01 Dictated By: Raine Zelaya M.D. Signed By: 04/09/25 1304 DD/ 1301 TD/TT: Inspector Advanced Composite: [facility] Radiology, Radiologist, MD - 04/09/2025 [place] [address] Ultrasound Report Signed Patient: CARMELITA CASON MR#: [id number] : 1990 Acct:[id number] Age/Sex: 34 / F ADM Date: 04/09/25 Loc: US Attending Dr: Paradise Olvera Ordering Physician: Paradise Olvera Date of Service: 04/09/25 Procedure(s): US OB cervical length Accession Number(s): [id number] cc: Paradise Olvera; ROMEO GAR The [place] [id number] Patient Name: CARMELITA CASON MRN: [facility]:[id number] date: 1990 Sex: F Assigned Patient Location: US Current Patient Location: US Accession/Order Number: [id number] Exam Date: 04/09/2025 12:20 Report Date: 04/09/2025 [...] all 4 extremities were surveyed by the nail expert. No abnormalities were detected. The stomach, bladder, [...] Zelaya M.D. 04/09/2025 1:01 PM Dictation Location: [place] [address] Electronically authenticated by: [id number] Y Date: 04/09/2025 13:01 Dictated By: Raine Zelaya M.D. Signed By: 04/09/25 1304 DD/ 1301 TD/TT: Inspector Advanced Composite: [facility] HCG ( test) Ql (U)O rdered By: Arabella Hill on 04-06-2025 Interpretation and review of laboratory results Abnormal [facility] Preg Test, Ur Positive Negative [facility] Urinalysis macro (dipstick) panel (U)on 04-06-2025 Bilirubin, UA Negative Negative - 4(70) +++ mg/dL [facility] Blood, UA Negative Negative - 50 Amador/mcL [facility] Clarity, UA Clear [facility] Color, UA Yellow [facility] Glucose, UA Negative Negative - 2000(110) ++++ mg/dL [facility] Interpretation and review of laboratory results Normal [facility] Ketones, UA Negative Negative - 160(16) ++++ mg/dL [facility] Leukocytes, UA Negative Negative - 500+++ Camille/mcL [facility] Nitrite, UA Negative Negative - Positive [facility] pH, UA 6.5 5 - 9 [facility] Protein, UA Negative Negative - 2000(20) ++++ mg/dL [facility] Spec Grav, UA 1.02 1 - 1.03 [facility] Urobilinogen, UA 1.0 0.2 - 12 mg/dL [facility] US OB L= 14 [place] [address] Ultrasound Report Signed Patient: CARMELITA CASON MR#: [id number] : 1990 Acct:[id number] Age/Sex: 34 / F ADM Date: 01/22/25 Loc: US Attending Dr: Mee Pringle D.O. Ordering Physician: Mee Pringle D.O. Date of Service: 01/22/25 Procedure(s): US OB <= 14 weeks fetus Accession Number(s): [id number] cc: ROMEO GAR ; Mee Pringle D.O. [place] [id number] Patient Name: CARMELITA CASON MRN: [id number] date: 1990 Sex: F Assigned Patient Location: Current Patient Location: US Accession/Order Number: [id number] Exam Date: 01/22/2025 14:49 Report Date: 01/22/2025 [...] Sorto Jr., D.O.01/22/2025 2:50 PM Dictation Location: [place] [address] Electronically authenticated by: [id number] Y Date: 01/22/2025 14:50 Dictated By: Serafin Sorto M.D. Signed By: 01/22/25 1453 DD/ 1450 TD/TT: Inspector Advanced Composite: [facility] Radiology, Radiologist, MD - 01/22/2025 [place] [address] Ultrasound Report Signed Patient: CARMELITA CASON MR#: [id number] : 1990 Acct:[id number] Age/Sex: 34 / F ADM Date: 01/22/25 Loc: US Attending Dr: Mee Pringle D.O. Ordering Physician: Mee Pringle D.O. Date of Service: 01/22/25 Procedure(s): US OB <= 14 weeks fetus Accession Number(s): [id number] cc: ROMEO GAR ; Mee Pringle D.O. The [place] [id number] Patient Name: CARMELITA CASON MRN: [facility]:[id number] date: 1990 Sex: F Assigned Patient Location: Current Patient Location: US Accession/Order Number: [id number] Exam Date: 01/22/2025 14:49 Report Date: 01/22/2025 [...] Sorto Jr., D.O.01/22/2025 2:50 PM Dictation Location: [facility] Electronically authenticated by: [id number] Y Date: 01/22/2025 14:50 Dictated By: Serafin Sorto M.D. Signed By: 01/22/25 1453 DD/ 1450 TD/TT: Inspector Advanced Composite: [facility] Radiology Study observation (narrative) [facility] US OB L= 14 WEEKS FETUSOrder ed By: Radiologist Radiology on 01-22-2025 [facility] Work Phone: [facility] PREG QUANT HCGon 025 HCG QUANTITATIVE 3026 mIU/mL [facility] Comment on above: 5-50 0.2-1 WEEK 50-500 1-2 WEEKS 100-5,000 2-3 WEEKS 500-10,000 3-4 WEEKS 1,000-50,000 4-5 WEEKS 10,000-100,000 5-6 WEEKS 15,000-200,000 6-8 WEEKS 10,000-100,000 2-3 MONTHS [facility] COMPLIANCE DRUG SCREENon PDF . Normal [facility] Comment on above: Performed By: #### D MTOAL #### [facility] [address] [place] [address] Dr. Roberto Parmar Summary FINAL Normal [facility] Comment on above: Result Comment: ===== [...] is an expected metabolite of dextromethorphan, an hnup-bau-wkjttuq or prescription cough suppressant. Levorphanol is a scheduled prescription medication. Dextrorphan cannot be distinguished from levorphanol by the method used for analysis. Guaifenesin PRESENT UNEXPECTED Guaifenesin may be administered as an nvoe-jls-gcwqbss or prescription drug; it may also be [...] ===== Performed By: #### D SDOALC #### [facility] [address] [place] [address] Dr. Roberto Parmar URIC ACID RAND URINEon 09-03 Uric Acid, Urine 12.4 mg/dL Normal Not Estab. [facility] Comment on above: Performed By: #### U RICUR #### [facility] [address] [place] [address] Dr. Roberto Parmar DRUG SCREEN RAPID (URINE)on 09-02-2022 AMP Negative Normal NEGATIVE [facility] Comment on above: Performed By: #### D RUGRPD #### [facility] [address] [place] [address] Dr. Roberto Parmar BAR Negative Normal NEGATIVE [facility] Comment on above: Performed By: #### D RUGRPD #### [facility] [address] [place] [address] Dr. Roberto Parmar BUP Positive Abnormal NEGATIVE [facility] Comment on above: Performed By: #### D RUGRPD #### [facility] [address] [place] [address] Dr. Roberto Parmar BZO Positive Abnormal NEGATIVE [facility] Comment on above: Performed By: #### D RUGRPD #### [facility] [address] [place] [address] Dr. Roberto Parmar BRITTANY Negative Normal NEGATIVE [facility] Comment on above: Performed By: #### D RUGRPD #### [facility] [address] [place] [address] Dr. Roberto Parmar CUT-OFFS SEE BELOW Normal [facility] Comment on above: Result Comment: AMP [...] ng/mL Performed By: #### D RUGRPD #### [facility] [address] [place] [address] Dr. Roberto Parmar DRUG CUT HEADER DRUG CLASS TEST SYSTEM CUT-OFF CONCENTRATIONS ARE FOLLOWS: Normal [facility] Comment on above: Performed By: #### D RUGRPD #### [facility] [address] [place] [address] Dr. Roberto Parmar mAMP Negative Normal NEGATIVE [facility] Comment on above: Performed By: #### D RUGRPD #### [facility] [address] [place] [address] Dr. Roberto Parmar MTD Negative Normal NEGATIVE [facility] Comment on above: Performed By: #### D RUGRPD #### [facility] [address] [place] [address] Dr. Roberto Parmar OPI Negative Normal NEGATIVE [facility] Comment on above: Performed By: #### D RUGRPD #### [facility] [address] [place] [address] Dr. Roberto Parmar OXY Negative Normal NEGATIVE [facility] Comment on above: Performed By: #### D RUGRPD #### [facility] [address] [address] [address] Roberto Parmar PCP Negative Normal NEGATIVE [facility] Comment on above: Performed By: #### D RUGRPD #### [facility] [address] [address] [address] Roberto Parmar PPX Negative Normal NEGATIVE [facility] Comment on above: Performed By: #### D RUGRPD #### [facility] [address] [address] [address] Roberto Parmar TCA Negative Normal NEGATIVE [facility] Comment on above: Performed By: #### D RUGRPD #### [facility] [address] [address] [address] Roberto Parmar THC Negative Normal NEGATIVE [facility] Comment on above: Performed By: #### D RUGRPD #### [facility] [address] [address] [address] Roberto Parmar US PELVIS AND TRANSVAGon [...] by: MAYUR ALLEN Date: 2022-07-13 07:21 Normal [facility] PAP ACOG PANEL 2: 21 to 29on 06-18-2022 . . Normal [facility] Comment on above: Performed By: #### [id number] #### [facility] [address] [place] [address] Dr. Roberto Parmar Age Gdln ACOG Testing 21-29 [facility] Comment on above: Performed By: #### [id number] #### [facility] [address] [place] [address] Dr. Roberto Parmar DIAGNOSIS: Comment [facility] Comment on above: Result Comment: NEGA TIVE FOR INTRAEPITHELIAL LESION OR MALIGNANCY. Performed By: #### 4 [id number] #### [facility] [address] [place] [address] Dr. Roberto Parmar Methodology: Comment [facility] Comment on above: Result Comment: This liquid based ThinPrep(R) pap test was screened with the use of an image guided system. Performed By: #### 4 [id number] #### [facility] [address] [place] [address] Dr. Roberto Parmar Note: Comment [facility] Comment on above: Result Comment: The Pap smear is a screening test designed to aid in the detection of premalignant and malignant conditions of the uterine cervix. It is not a diagnostic procedure and should not be used as the sole means of detecting cervical cancer. Both false-positive and false-negative reports do occur. . Performed By: #### 4 [id number] #### [facility] [address] [place] [address] Dr. Roberto Parmar Performed by: Comment Normal [facility] Comment on above: Result Comment: Kishore De Dios Snap Attacher (ASCP) Performed By: #### 4 [id number] #### [facility] [address] [place] [address] Dr. Roberto Parmar Reflex Criteria: Comment [facility] Comment on above: Result Comment: The HPV DNA reflex criteria were not met with this specimen result therefore, no HPV testing was performed. . Performed By: #### 4 [id number] #### [facility] [address] [place] [address] Dr. Roberto Parmar Specimen adequacy: Comment Normal [facility] Comment on above: Result Comment: Sati sfactory for evaluation. Endocervical and/or squamous metaplastic cells (endocervical component) are present. Performed By: #### 4 [id number] #### [facility] [address] [address] [address] Roberto Parmar CBCon 12-06-2020 Erythrocyte distribution width (RBC) [Ratio] 13.6 % Normal 11.8-14.4 [facility] Comment on above: Performed By: #### P HEP, HIVCMB #### [address] [address] Pharmacognosist: Alvino Davila MD #### CP, CBC, HCG #### [address] [place] [id number] Pharmacognosist: Luis A Peng MD Hematocrit (Bld) [Volume fraction] 44.1 % Normal 36.3-47.1 [facility] Comment on above: Performed By: #### P HEP, HIVCMB #### [address] [address] Pharmacognosist: Alvino Davila MD #### CP, CBC, HCG #### [address] [place] [id number] Pharmacognosist: Luis A Peng MD Hemoglobin (Bld) [Mass/Vol] 14.1 g/dL Normal 11.9-15.1 [facility] Comment on above: Performed By: #### P HEP, HIVCMB #### [address] [id number] Pharmacognosist: Alvino Davila MD #### CP, CBC, HCG #### [address] [place] [phone] Pharmacognosist: Luis A Peng MD MCH (RBC) [Entitic mass] 25.4 pg Normal 25.2-33.5 [facility] Comment on above: Performed By: #### P HEP, HIVCMB #### [address] [id number] Pharmacognosist: Alvino Davila MD #### CP, CBC, HCG #### [address] [place] [phone] Pharmacognosist: Luis A Peng MD MCHC (RBC) [Mass/Vol] 32.0 g/dL Normal 28.4-34.[address] [facility] Comment on above: Performed By: #### P HEP, HIVCMB #### [place] [address] Pharmacognosist: Alvino Davila MD #### CP, CBC, HCG #### [address] [place] [phone] Pharmacognosist: Luis A Peng MD MCV (RBC) [Entitic vol] 79.5 fL Low 82.6-102.9 [facility] Comment on above: Performed By: #### P HEP, HIVCMB #### [address] [id number] Pharmacognosist: Alvino Davila MD #### CP, CBC, HCG #### [address] [place] [phone] Pharmacognosist: Luis A Peng MD NRBC Automated 0.0 per 100 WBC Normal 0.0 [facility] Comment on above: Performed By: #### P HEP, HIVCMB #### [address] [id number] Pharmacognosist: Alvino Davila MD #### CP, CBC, HCG #### [address] [place] [phone] Pharmacognosist: Luis A Peng MD Platelet mean volume (Bld) [Entitic vol] 11.8 fL Normal 8.1-13.5 [facility] Comment on above: Performed By: #### P HEP, HIVCMB #### [address] [place] [address] Pharmacognosist: Alvino Davila MD #### CP, CBC, HCG #### [address] [place] [phone] Pharmacognosist: Luis A Peng MD Platelets (Bld) [#/Vol] 238 10*3/uL Normal 138-453 [facility] Comment on above: Performed By: #### P HEP, HIVCMB #### [address] [id number] Pharmacognosist: Alvino Davila MD #### CP, CBC, HCG #### [address] [place] [phone] Pharmacognosist: Luis A Peng MD RBC (Bld) [#/Vol] 5.55 10*6/uL High 3.95-5.11 [facility] Comment on above: Performed By: #### P HEP, HIVCMB #### [address] [address] Pharmacognosist: Alvino Davila MD #### CP, CBC, HCG #### [address] [place] [phone] Pharmacognosist: Luis A Peng MD WBC (Bld) [#/Vol] 8.6 10*3/uL Normal 3.5-11.3 [facility] Comment on above: Performed By: #### P HEP, HIVCMB #### [address] [address] Pharmacognosist: Alvino Davila MD #### CP, CBC, HCG #### [address] [place] [address] Pharmacognosist: Luis A Peng MD Erythrocyte distribution width (RBC) [Ratio] 13.6 % 11.8 - 14.4 % [place] Hematocrit (Bld) [Volume fraction] 44.1 % 36.3 - 47.1 % [place] Hemoglobin (Bld) [Mass/Vol] 14.1 g/dL 11.9 - 15.1 g/dL [place] Interpretation and review of laboratory results Abnormal [place] MCH (RBC) [Entitic mass] 25.4 pg 25.2 - 33.5 pg [place] MCHC (RBC) [Mass/Vol] 32.0 g/dL 28.4 - 34.8 g/dL [place] MCV (RBC) [Entitic vol] 79.5 fL Low 82.6 - 102.9 fL [place] Platelet mean volume (Bld) [Entitic vol] 11.8 fL 8.1 - 13.5 fL [place], [place] Platelets (Bld) [#/Vol] 238 10*3/uL [place] RBC (Bld) [#/Vol] 5.55 10*6/uL High 3.95 - 5.1 1 m/uL [place] WBC (Bld) [#/Vol] 8.6 10*3/uL [place] WBC (Bld) [#/Vol] 0.0 10*3/uL 0.0 per 100 WBC [place] Comp Metabolic Profon 2020 (cont.) Normal [facility] Comment on above: Result Comment: Aver age GFR for 20-29 years old: 116 mL/min/1.73sq m Chronic Kidney Disease: <60 mL/min/1.73sq m Kidney failure: <15 mL/min/1.73sq m eGFR calculated using average adult body mass. Additional eGFR calculator available at: http://www.[employer]/multiple_crcl_2012.htm Performed By: #### P HEP, HIVCMB #### [facility] [address] [place] [id number] Pharmacognosist: Alvino Davila MD #### CP, CBC, HCG #### [facility] [address] [place] [address] Pharmacognosist: Luis A Peng MD Albumin [Mass/Vol] 4.6 g/dL Normal 3.5-5.2 [facility] Comment on above: Performed By: #### P HEP, HIVCMB #### [address] [address] Pharmacognosist: Alvino Davila MD #### CP, CBC, HCG #### [address] [place] [address] Pharmacognosist: Luis A Peng MD Albumin/Globulin [Mass ratio] 1.6 {ratio} Normal 1.0-2.5 [facility] Comment on above: Performed By: #### P HEP, HIVCMB #### [address] [address] Pharmacognosist: Alvino Davila MD #### CP, CBC, HCG #### [address] [place] [address] Pharmacognosist: Luis A Peng MD Alkaline Phos 81 U/L Normal 35-104 [facility] Comment on above: Performed By: #### P HEP, HIVCMB #### [address] [address] Pharmacognosist: Alvino Davila MD #### CP, CBC, HCG #### [facility] [address] [place] [address] [place] [address] Pharmacognosist: Luis A Peng MD ALT [Catalytic activity/Vol] 39 U/L High 5-33 [facility] Comment on above: Performed By: #### P HEP, HIVCMB #### [address] [address] Pharmacognosist: Alvino Davila MD #### CP, CBC, HCG #### [facility] [address] [place] [address] Pharmacognosist: Luis A Peng MD Anion gap [Moles/Vol] 12 mmol/L Normal 9-[address] [facility] Comment on above: Performed By: #### P HEP, HIVCMB #### [address] [address] Pharmacognosist: Alvino Davila MD #### CP, CBC, HCG #### [facility] [address] [place] [phone] Pharmacognosist: Luis A Peng MD AST [Catalytic activity/Vol] 28 U/L Normal <32 [facility] Comment on above: Performed By: #### P HEP, HIVCMB #### [address] [address] Pharmacognosist: Alvino Davila MD #### CP, CBC, HCG #### [facility] [address] [place] [phone] Pharmacognosist: Luis A Peng MD Bilirubin Ql (U) 0.26 mg/dL Low 0.3-1.[address] [facility] Comment on above: Performed By: #### P HEP, HIVCMB #### [address] [address] Pharmacognosist: Alvino Davila MD #### CP, CBC, HCG #### [facility] [address] [place], [place] [id number] Pharmacognosist: Luis A Peng MD BUN/CRE Ratio 14 Normal 9-20 [facility] Comment on above: Performed By: #### P HEP, HIVCMB #### [address] [address] Pharmacognosist: Alvino Davila MD #### CP, CBC, HCG #### [facility] [address] [place], [place] [id number] Pharmacognosist: Luis A Peng MD Calcium [Mass/Vol] 10.1 mg/dL Normal 8.6-10.4 [facility] Comment on above: Performed By: #### P HEP, HIVCMB #### [address] [address] Pharmacognosist: Alvino Davila MD #### CP, CBC, HCG #### [facility] [address] [place], [place] [phone] Pharmacognosist: Luis A Peng MD Chloride [Moles/Vol] 101 mmol/L Normal 98-107 [facility] Comment on above: Performed By: #### P HEP, HIVCMB #### [address] [id number] Pharmacognosist: Alvino Davila MD #### CP, CBC, HCG #### [address] [place], [place] [phone] Pharmacognosist: Luis A Peng MD CO2 [Moles/Vol] 26 mmol/L Normal 20-31 [facility] Comment on above: Performed By: #### P HEP, HIVCMB #### [address] [address] Pharmacognosist: Alvino Davila MD #### CP, CBC, HCG #### [address] [place], [place] [id number] Pharmacognosist: Luis A Peng MD Creatinine [Mass/Vol] 0.49 mg/dL Low 0.50-0.[address] [facility] Comment on above: Performed By: #### P HEP, HIVCMB #### [address] [address] Pharmacognosist: Alvino Davila MD #### CP, CBC, HCG #### [address] [place], [place] 1527783 Pharmacognosist: Luis A Peng MD GFR, Amer >60 Normal >[address] [facility] Comment on above: Performed By: #### P HEP, HIVCMB #### [address] [address] Pharmacognosist: Alvino Davila MD #### CP, CBC, HCG #### [address] [place], [place] [phone] Pharmacognosist: Luis A Peng MD GFR,non Amer >60 Normal >60 [facility] Comment on above: Performed By: #### P HEP, HIVCMB #### [address] [address] Pharmacognosist: Alvino Davila MD #### CP, CBC, HCG #### [address] [place], [place] [phone] Pharmacognosist: Luis A Peng MD Glucose [Mass/Vol] 101 mg/dL High 70-99 [facility] Comment on above: Performed By: #### P HEP, HIVCMB #### [address] [address] Pharmacognosist: Alvino Davila MD #### CP, CBC, HCG #### [address] [place], [place] 1504183 Pharmacognosist: Luis A Peng MD Potassium [Moles/Vol] 4.2 mmol/L Normal 3.7-5.[address] [facility] Comment on above: Performed By: #### P HEP, HIVCMB #### [address] [address] Pharmacognosist: Alvino Davila MD #### CP, CBC, HCG #### [address] [place], [place] 1388483 Pharmacognosist: Luis A Peng MD Protein [Mass/Vol] 7.5 g/dL Normal 6.4-8.3 [facility] Comment on above: Performed By: #### P HEP, HIVCMB #### [address] [address] Pharmacognosist: Alvino Davila MD #### CP, CBC, HCG #### [address] [place] [phone] Pharmacognosist: Luis A Peng MD Sodium [Moles/Vol] 139 mmol/L Normal 135-144 [facility] Comment on above: Performed By: #### P HEP, HIVCMB #### [address] [address] Pharmacognosist: Alvino Davila MD #### CP, CBC, HCG #### [address] [place] [phone] Pharmacognosist: Luis A Peng MD Staging: Normal [facility] Comment on above: Result Comment: Stag e 1: Some kidney damage normal GFR Stage 2: Mild kidney damage GFR 60-89 Stage 3: Moderate kidney damage GFR 30-59 Stage 4: Severe kidney damage GFR 15-29 Stage 5: Severe kidney damage GFR <15 ESRD - chronic treatment by dialysis or transplant Performed By: #### P HEP, HIVCMB #### [address] [address] Pharmacognosist: Alvino Davila MD #### CP, CBC, HCG #### [address] [place] [address] Pharmacognosist: Luis A Peng MD Urea nitrogen [Mass/Vol] 7 mg/dL Normal 6-20 [facility] Comment on above: Performed By: #### P HEP, HIVCMB #### [address] [address] Pharmacognosist: Alvino Davila MD #### CP, CBC, HCG #### [facility] [address] [place] [address] Pharmacognosist: Luis A Peng MD Comprehensive Metabolic Pane liu 12-06-2020 Albumin [Mass/Vol] 4.6 g/dL 3.5 - 5.2 g/dL [place], [place] Albumin/Globulin [Mass ratio] 1.6 {ratio} [place] ALP [Catalytic activity/Vol] 81 U/L 35 - 104 U/L [place] ALT [Catalytic activity/Vol] 39 U/L High 5 - 33 U/L [place] Anion gap [Moles/Vol] 12 mmol/L 9 - 17 mmol/L [place] AST [Catalytic activity/Vol] 28 U/L <32 [place] Bilirubin Ql (U) 0.26 mg/dL Low 0.3 - 1.2 mg/dL [place], [place] Bun/Cre Ratio 14 [place] Calcium [Mass/Vol] 10.1 mg/dL 8.6 - 10. 4 mg/dL [place] Chloride [Moles/Vol] 101 mmol/L 98 - 107 mmol/L [place] CO2 [Moles/Vol] 26 mmol/L 20 - 31 mmol/L [place] Creatinine [Mass/Vol] 0.49 mg/dL Low 0.5 - 0.9 mg/d L [place] GFR >60 >60 mL/min [place], [place] GFR Non- >60 >60 mL/min [place] Glucose [Mass/Vol] 101 mg/dL High 70 - 99 mg/dL [place] Interpretation and review of laboratory results Abnormal [place] Potassium [Moles/Vol] 4.2 mmol/L 3.7 - 5.3 mmol/L [place] Protein [Mass/Vol] 7.5 g/dL 6.4 - 8.3 g/dL [place] Sodium [Moles/Vol] 139 mmol/L 135 - 144 mmol/L [place] Urea nitrogen [Mass/Vol] 7 mg/dL 6 - 20 mg/dL [place] HCG Qualitative, Serumon hCG Qual Negative NEGATIVE [place] Comment on above: Specimens with hCG l evels near the threshold of the test (25 mIU/mL) may give a negative or indeterminate result. In such cases, another test should be performed with a new specimen in 48-72 hours. If early is suspected clinically in this setting, correlation with quantitative serum b-hCG level is suggested. [facility] has confirmed the use of plasma for this test. This has not been cleared or approved by the U.S. Food and Drug Administration. The FDA has determined that such clearance is not necessary. HCG Screen, Bloodon 12-06-19 HCG Qn Negative Normal NEG [facility] Comment on above: Result Comment: Spec imens with hCG levels near the threshold of the test (25 mIU/mL) may give a negative or indeterminate result. In such cases, another test should be performed with a new specimen in 48-72 hours. If early is suspected clinically in this setting, correlation with quantitative serum b-hCG level is suggested. [facility] has confirmed the use of plasma for this test. This has not been cleared or approved by the U.S. Food and Drug Administration. The FDA has determined that such clearance is not necessary. Performed By: #### P HEP, HIVCMB #### [facility] [address] [place], [place] [id number] Pharmacognosist: Alvino Davila MD #### CP, CBC, HCG #### [facility] [address] [place] [address] Pharmacognosist: Luis A Peng MD HIV Ag/Abon 12-06-2020 HIV Ag/Ab NONREACTIVE Normal NR [facility] Comment on above: Result Comment: No l aboratory evidence of HIV infection. If acute HIV infection is suspected, consider testing for HIV-1 RNA. Performed By: #### P HEP, HIVCMB #### [facility] [address] [place], [place] [phone] Pharmacognosist: Alvino Davila MD #### CP, CBC, HCG #### [facility] [address] [place] [address] Dr. [place], [place] [phone] Pharmacognosist: Luis A Peng MD HIV Screenon 12-06-2020 HIV Ag/Ab NONREACTIVE NONREACTIVE [place], [place] Comment on above: No laboratory eviden ce of HIV infection. If acute HIV infection is suspected, consider testing for HIV-1 RNA. Hepatitis Acute [facility] 12-06 Hep A Ab,IgM NONREACTIVE Normal [facility] Comment on above: Performed By: #### P HEP, HIVCMB #### [address] [address] Pharmacognosist: Alvino Davila MD #### CP, CBC, HCG #### [address] [place], [place] [phone] Pharmacognosist: Luis A Peng MD Hep B Core Ab,IgM NONREACTIVE Normal [facility] Comment on above: Performed By: #### P HEP, HIVCMB #### [address] [address] Pharmacognosist: Alvino Davila MD #### CP, CBC, HCG #### [address] [place], [place] [phone] Pharmacognosist: Luis A Peng MD Hep B Surf Ag NONREACTIVE Normal [facility] Comment on above: Performed By: #### P HEP, HIVCMB #### [address] [address] Pharmacognosist: Alvino Davila MD #### CP, CBC, HCG #### [address] [place], [place] [phone] Pharmacognosist: Luis A Peng MD Hep C Ab REACTIVE Abnormal [facility] Comment on above: Result Comment: The [...] Performed By: #### P HEP, HIVCMB #### [facility] [address] [place] [address] Pharmacognosist: Alvino Davila MD #### CP, CBC, HCG #### [facility] [address] [place] [address] Pharmacognosist: Luis A Peng MD Hepatitis Panel, Acuteon HAV IgM IA Qn (S) NONREACTIVE NONREACTIVE [place] Hep B Core Ab, IgM NONREACTIVE NONREACTIVE [place] Hepatitis B Surface Ag NONREACTIVE NONREACTIVE [place] Hepatitis C Ab REACTIVE Abnormal NONREACTIVE [place], [place] Comment on above: The hepatitis C [...] Interpretation and review of laboratory results Abnormal [place] Metabolic Panelon 12-06-2020 GFR/1.73 sq M predicted among non-blacks MDRD (S/P/Bld) [Vol rate/Area] [place] Comment on above: Stage 1: Some [...] body mass. Additional eGFR calculator available at: http://www.[employer]/multiple_crcl_2012.htm CBCon 05-30-2020 Erythrocyte distribution width (RBC) [Ratio] 12.7 % Normal 11.8-14.4 [facility] Comment on above: Performed By: #### C P, HCG, CBC #### [facility] [address] [place] [address] [address] [place] [phone] Pharmacognosist: Luis A Peng MD #### HIVCMB, PHEP #### [address] [id number] Pharmacognosist: Alvino Davila MD Hematocrit (Bld) [Volume fraction] 39.2 % Normal 36.3-47.1 [facility] Comment on above: Performed By: #### C P, HCG, CBC #### [address] [place] [phone] Pharmacognosist: Luis A Peng MD #### HIVCMB, PHEP #### [address] [id number] Pharmacognosist: Alvino Davila MD Hemoglobin (Bld) [Mass/Vol] 12.3 g/dL Normal 11.9-15.1 [facility] Comment on above: Performed By: #### C P, HCG, CBC #### [address] [place] [phone] Pharmacognosist: Luis A Peng MD #### HIVCMB, PHEP #### [address] [id number] Pharmacognosist: Alvino Davila MD MCH (RBC) [Entitic mass] 26.2 pg Normal 25.2-33.5 [facility] Comment on above: Performed By: #### C P, HCG, CBC #### [facility] [address] [place] [address] Dr. [place] [phone] Pharmacognosist: Luis A Peng MD #### HIVCMB, PHEP #### [address] [id number] Pharmacognosist: Alvino Davila MD MCHC (RBC) [Mass/Vol] 31.4 g/dL Normal 28.4-34.[address] [facility] Comment on above: Performed By: #### C P, HCG, CBC #### [address] [place] [phone] Pharmacognosist: Luis A Peng MD #### HIVCMB, PHEP #### [address] [id number] Pharmacognosist: Alvino Davila MD MCV (RBC) [Entitic vol] 83.6 fL Normal 82.6-102.9 [facility] Comment on above: Performed By: #### C P, HCG, CBC #### [address] [place] [address] Pharmacognosist: Luis A Peng MD #### HIVCMB, PHEP #### [place] [id number] Pharmacognosist: Alvino Daivla MD NRBC Automated 0.0 per 100 WBC Normal 0.0 [facility] Comment on above: Performed By: #### C P, HCG, CBC #### [address] [place] [phone] Pharmacognosist: Luis A Peng MD #### HIVCMB, PHEP #### [address] [id number] Pharmacognosist: Alvino Davila MD Platelet mean volume (Bld) [Entitic vol] 10.9 fL Normal 8.1-13.5 [facility] Comment on above: Performed By: #### C P, HCG, CBC #### [address] [place] [phone] Pharmacognosist: Luis A Peng MD #### HIVCMB, PHEP #### [facility] [address] [place] [address] Pharmacognosist: Alvino Davila MD Platelets (Bld) [#/Vol] 277 10*3/uL Normal 138-453 [facility] Comment on above: Performed By: #### C P, HCG, CBC #### [address] [place] [phone] Pharmacognosist: Luis A Peng MD #### HIVCMB, PHEP #### [address] [id number] Pharmacognosist: Alvino Davila MD RBC (Bld) [#/Vol] 4.69 10*6/uL Normal 3.95-5.11 [facility] Comment on above: Performed By: #### C P, HCG, CBC #### [address] [place] [id number] ( Pharmacognosist: Luis A Peng MD #### HIVCMB, PHEP #### [address] [address] Pharmacognosist: Alvino Davila MD WBC (Bld) [#/Vol] 5.5 10*3/uL Normal 3.5-11.3 [facility] Comment on above: Performed By: #### C P, HCG, CBC #### [address] [place] [phone] ( Pharmacognosist: Luis A Peng MD #### HIVCMB, PHEP #### [address] [phone] Pharmacognosist: Alvino Davila MD Erythrocyte distribution width (RBC) [Ratio] 12.7 % 11.8 - 14.4 % [place] Hematocrit (Bld) [Volume fraction] 39.2 % 36.3 - 47.1 % [place] Hemoglobin (Bld) [Mass/Vol] 12.3 g/dL 11.9 - 15.1 g/dL [place] MCH (RBC) [Entitic mass] 26.2 pg 25.2 - 33.5 pg [place] MCHC (RBC) [Mass/Vol] 31.4 g/dL 28.4 - 34.8 g/dL [place] MCV (RBC) [Entitic vol] 83.6 fL 82.6 - 102.9 fL [place] Platelet mean volume (Bld) [Entitic vol] 10.9 fL 8.1 - 13.5 fL [place], [place] Platelets (Bld) [#/Vol] 277 10*3/uL [place] RBC (Bld) [#/Vol] 4.69 10*6/uL 3.95 - 5.1 1 m/uL [place] WBC (Bld) [#/Vol] 5.5 10*3/uL [place] WBC (Bld) [#/Vol] 0.0 10*3/uL 0.0 per 100 WBC [place] Comp Metabolic Profon 2019 (cont.) Normal [facility] Comment on above: Result Comment: Aver age GFR for 20-29 years old: 116 mL/min/1.73sq m Chronic Kidney Disease: <60 mL/min/1.73sq m Kidney failure: <15 mL/min/1.73sq m eGFR calculated using average adult body mass. Additional eGFR calculator available at: http://www.Fanmin[employer]/multiple_crcl_2011.htm Performed By: #### C P, HCG, CBC #### [facility] [address] [place] [address] Pharmacognosist: Luis A Peng MD #### HIVCMB, PHEP #### [place] [id number] [place] [address] Pharmacognosist: Alvino Davila MD Albumin [Mass/Vol] 3.4 g/dL Low 3.5-5.2 [facility] Comment on above: Performed By: #### C P, HCG, CBC #### [facility] [address] [place], [place] [phone] Pharmacognosist: Luis A Peng MD #### HIVCMB, PHEP #### [address] [address] Pharmacognosist: Alvino Davila MD Albumin/Globulin [Mass ratio] 1.1 {ratio} Normal 1.0-2.5 [facility] Comment on above: Performed By: #### C P, HCG, CBC #### [facility] [address] [place], [place] [phone] Pharmacognosist: Luis A Peng MD #### HIVCMB, PHEP #### [address] [phone] Pharmacognosist: Alvino Davila MD Alkaline Phos 130 U/L High 35-104 [facility] Comment on above: Performed By: #### C P, HCG, CBC #### [facility] [address] [place] [address] [place], [place] [phone] Pharmacognosist: Luis A Peng MD #### HIVCMB, PHEP #### [address] [address] Pharmacognosist: Alvino Davila MD ALT [Catalytic activity/Vol] 33 U/L Normal 5-33 [facility] Comment on above: Performed By: #### C P, HCG, CBC #### [address] [place], [place] 3447483 Pharmacognosist: Luis A Peng MD #### HIVCMB, PHEP #### [address] [address] Pharmacognosist: Alvino Dvaila MD Anion gap [Moles/Vol] 7 mmol/L Low 9-[address] [facility] Comment on above: Performed By: #### C P, HCG, CBC #### [facility] [address] [place] [address] Dr. [place], [place] [phone] Pharmacognosist: Luis A Peng MD #### HIVCMB, PHEP #### [place] [address] [place], [place] 1069308 Pharmacognosist: Alvino Davila MD AST [Catalytic activity/Vol] 35 U/L High <32 [facility] Comment on above: Performed By: #### C P, HCG, CBC #### [facility] [address] [place], [place] 0234883 Pharmacognosist: Luis A Peng MD #### HIVCMB, PHEP #### [address] [phone] Pharmacognosist: Alvino Davila MD Bilirubin Ql (U) 0.16 mg/dL Low 0.3-1.[address] [facility] Comment on above: Performed By: #### C P, HCG, CBC #### [facility] [address] [place] [address] Dr. [place], [place] [phone] Pharmacognosist: Luis A Peng MD #### HIVCMB, PHEP #### [address] [phone] Pharmacognosist: Alvino Davila MD BUN/CRE Ratio 14 Normal 9-20 [facility] Comment on above: Performed By: #### C P, HCG, CBC #### [facility] [address] [place] [address] Dr. [place], [place] 1043483 Pharmacognosist: Luis A Peng MD #### HIVCMB, PHEP #### [address] [address] Pharmacognosist: Alvino Davila MD Calcium [Mass/Vol] 9.2 mg/dL Normal 8.6-10.4 [facility] Comment on above: Performed By: #### C P, HCG, CBC #### [facility] [address] [place] [address] [place] [address] Pharmacognosist: Luis A Peng MD #### HIVCMB, PHEP #### [address] [phone] Pharmacognosist: Alvino Davila MD Chloride [Moles/Vol] 99 mmol/L Normal 98-107 [facility] Comment on above: Performed By: #### C P, HCG, CBC #### [facility] [address] [place] [address] Dr. [place] [phone] Pharmacognosist: Luis A Peng MD #### HIVCMB, PHEP #### [address] [phone] Pharmacognosist: Alvino Davila MD CO2 [Moles/Vol] 29 mmol/L Normal 20-31 [facility] Comment on above: Performed By: #### C P, HCG, CBC #### [address] [place] [phone] Pharmacognosist: Luis A Peng MD #### HIVCMB, PHEP #### [address] [phone] Pharmacognosist: Alvino Davila MD Creatinine [Mass/Vol] 0.63 mg/dL Normal 0.50-0.[address] [facility] Comment on above: Performed By: #### C P, HCG, CBC #### [address] [place] [phone] Pharmacognosist: Luis A Peng MD #### HIVCMB, PHEP #### [address] [phone] Pharmacognosist: Alvino Davila MD GFR, Amer >60 Normal >[address] [facility] Comment on above: Performed By: #### C P, HCG, CBC #### [facility] [address] [place] [phone] Pharmacognosist: Luis A Peng MD #### HIVCMB, PHEP #### [place] [address] [place], [place] 7998108 Pharmacognosist: Alvino Davila MD GFR,non Amer >60 Normal >60 [facility] Comment on above: Performed By: #### C P, HCG, CBC #### [facility] [address] [place], [place] [phone] Pharmacognosist: Luis A Peng MD #### HIVCMB, PHEP #### [address] [address] Pharmacognosist: Alvino Davila MD Glucose [Mass/Vol] 95 mg/dL Normal 70-99 [facility] Comment on above: Performed By: #### C P, HCG, CBC #### [facility] [address] [place] [phone] Pharmacognosist: Luis A Peng MD #### HIVCMB, PHEP #### [address] [address] Pharmacognosist: Alvino Davila MD Potassium [Moles/Vol] 4.3 mmol/L Normal 3.7-5.[address] [facility] Comment on above: Performed By: #### C P, HCG, CBC #### [facility] [address] [place] [phone] Pharmacognosist: Luis A Peng MD #### HIVCMB, PHEP #### [address] [phone] Pharmacognosist: Alvino Davila MD Protein [Mass/Vol] 6.5 g/dL Normal 6.4-8.3 [facility] Comment on above: Performed By: #### C P, HCG, CBC #### [facility] [address] [place], [place] 5160583 Pharmacognosist: Luis A Peng MD #### HIVCMB, PHEP #### [facility] [address] [place] [address] Pharmacognosist: Alvino Davila MD Sodium [Moles/Vol] 135 mmol/L Normal 135-144 [facility] Comment on above: Performed By: #### C P, HCG, CBC #### [facility] [address] [place] [address] Dr. [place], [place] 0360483 Pharmacognosist: Luis A Peng MD #### HIVCMB, PHEP #### [address] [address] Pharmacognosist: Alvino Davila MD Staging: Normal [facility] Comment on above: Result Comment: Stag e 1: Some kidney damage normal GFR Stage 2: Mild kidney damage GFR 60-89 Stage 3: Moderate kidney damage GFR 30-59 Stage 4: Severe kidney damage GFR 15-29 Stage 5: Severe kidney damage GFR <15 ESRD - chronic treatment by dialysis or transplant Performed By: #### C P, HCG, CBC #### [facility] [address] [place] [address] Dr. [place], [place] [phone] Pharmacognosist: Luis A Peng MD #### HIVCMB, PHEP #### [address] [address] Pharmacognosist: Alvino Davila MD Urea nitrogen [Mass/Vol] 9 mg/dL Normal 6-20 [facility] Comment on above: Performed By: #### C P, HCG, CBC #### [facility] [address] [place] [address] Dr. [place], [place] 3046883 Pharmacognosist: Luis A Peng MD #### HIVCMB, PHEP #### [address] [phone] Pharmacognosist: Alvino Davila MD Comprehensive Metabolic Pane liu 05-30-2020 Albumin [Mass/Vol] 3.4 g/dL Low 3.5 - 5.2 g/dL [facility], [place] Albumin/Globulin [Mass ratio] 1.1 {ratio} [place] ALP [Catalytic activity/Vol] 130 U/L High 35 - 104 U/L [place] ALT [Catalytic activity/Vol] 33 U/L 5 - 33 U/L [place] Anion gap [Moles/Vol] 7 mmol/L Low 9 - 17 mmol/L [place] AST [Catalytic activity/Vol] 35 U/L High <32 [place] Bilirubin Ql (U) 0.16 mg/dL Low 0.3 - 1.2 mg/dL [place] Bun/Cre Ratio 14 [place], [place] Calcium [Mass/Vol] 9.2 mg/dL 8.6 - 10. 4 mg/dL [place] Chloride [Moles/Vol] 99 mmol/L 98 - 107 mmol/L [place] CO2 [Moles/Vol] 29 mmol/L 20 - 31 mmol/L [place] Creatinine [Mass/Vol] 0.63 mg/dL 0.5 - 0.9 mg/d L [place] GFR >60 >60 mL/min [place] GFR Non- >60 >60 mL/min [place] Glucose [Mass/Vol] 95 mg/dL 70 - 99 mg/dL [place] Interpretation and review of laboratory results Abnormal [place] Potassium [Moles/Vol] 4.3 mmol/L 3.7 - 5.3 mmol/L [place] Protein [Mass/Vol] 6.5 g/dL 6.4 - 8.3 g/dL [place], [place] Sodium [Moles/Vol] 135 mmol/L 135 - 144 mmol/L [place] Urea nitrogen [Mass/Vol] 9 mg/dL 6 - 20 mg/dL [place] HCG Qualitative, Serumon hCG Qual Negative NEGATIVE [place] Comment on above: Specimens with hCG l evels near the threshold of the test (25 mIU/mL) may give a negative or indeterminate result. In such cases, another test should be performed with a new specimen in 48-72 hours. If early is suspected clinically in this setting, correlation with quantitative serum b-hCG level is suggested. [facility] has confirmed the use of plasma for this test. This has not been cleared or approved by the U.S. Food and Drug Administration. The FDA has determined that such clearance is not necessary. HCG Screen, Bloodon 05-30-20 20 HCG Qn Negative Normal NEG [facility] Comment on above: Result Comment: Spec imens with hCG levels near the threshold of the test (25 mIU/mL) may give a negative or indeterminate result. In such cases, another test should be performed with a new specimen in 48-72 hours. If early is suspected clinically in this setting, correlation with quantitative serum b-hCG level is suggested. [facility] has confirmed the use of plasma for this test. This has not been cleared or approved by the U.S. Food and Drug Administration. The FDA has determined that such clearance is not necessary. Performed By: #### C P, HCG, CBC #### [facility] [address] [place] [address] Pharmacognosist: Luis A Peng MD #### HIVCMB, PHEP #### [facility] [address] [place] [address] Pharmacognosist: Alvino Davila MD HIV Ag/Abon 05-30-2020 HIV Ag/Ab NONREACTIVE Normal NR [facility] Comment on above: Result Comment: No l aboratory evidence of HIV infection. If acute HIV infection is suspected, consider testing for HIV-1 RNA. Performed By: #### C P, HCG, CBC #### [facility] [address] [place] [address] Pharmacognosist: Luis A Peng MD #### HIVCMB, PHEP #### [facility] [address] [place] [address] Pharmacognosist: Alvino Davila MD HIV Screenon 05-30-2020 HIV Ag/Ab NONREACTIVE NONREACTIVE [facility], [place] Comment on above: No laboratory eviden ce of HIV infection. If acute HIV infection is suspected, consider testing for HIV-1 RNA. Hepatitis Acute [facility] 05-30 Hep A Ab,IgM NONREACTIVE Normal NR [facility] Comment on above: Performed By: #### C P, HCG, CBC #### [facility] [address] [place] [address] [place] [address] Pharmacognosist: Luis A Peng MD #### HIVCMB, PHEP #### [address] [address] Pharmacognosist: Alvino Davila MD Hep B Core Ab,IgM NONREACTIVE Normal [facility] Comment on above: Performed By: #### C P, HCG, CBC #### [address] [place], [place] [phone] Pharmacognosist: Luis A Peng MD #### HIVCMB, PHEP #### [address] [phone] Pharmacognosist: Alvino Davila MD Hep B Surf Ag NONREACTIVE Normal [facility] Comment on above: Performed By: #### C P, HCG, CBC #### [address] [place], [place] 0506483 Pharmacognosist: Luis A Peng MD #### HIVCMB, PHEP #### [address] [address] Pharmacognosist: Alvino Davila MD Hep C Ab NONREACTIVE Normal [facility] Comment on above: Result Comment: The [...] #### C P, HCG, CBC #### [address] [place], [place] 1516983 Pharmacognosist: Luis A Peng MD #### HIVCMB, PHEP #### [facility] [address] [place], [place] 3229608 Pharmacognosist: Alvino Davila MD Hepatitis Panel, Acuteon HAV IgM IA Qn (S) NONREACTIVE NONREACTIVE [place] Hep B Core Ab, IgM NONREACTIVE NONREACTIVE [place] Hepatitis B Surface Ag NONREACTIVE NONREACTIVE [place] Hepatitis C Ab NONREACTIVE NONREACTIVE [place] Comment on above: The hepatitis C [...] predicted among non-blacks MDRD (S/P/Bld) [Vol rate/Area] [place] Comment on above: Stage 1: Some [...] body mass. Additional eGFR calculator available at: http://www.[employer]/multiple_crcl_2012.htm CBCon 01-01-2020 Erythrocyte distribution width (RBC) [Ratio] 12.5 % Normal 11.8-14.4 [facility] Comment on above: Performed By: #### P HEP, HIVCMB #### [facility] [address] [place], [place] [phone] Pharmacognosist: Alvino Davila MD #### CP, CBC, HCG #### [facility] [place] [phone] Pharmacognosist: Luis A Peng MD Hematocrit (Bld) [Volume fraction] 40.2 % Normal 36.3-47.1 [facility] Comment on above: Performed By: #### P HEP, HIVCMB #### [address] [phone] Pharmacognosist: Alvino Davila MD #### CP, CBC, HCG #### [address] [place] [phone] Pharmacognosist: Luis A Peng MD Hemoglobin (Bld) [Mass/Vol] 13.1 g/dL Normal 11.9-15.1 [facility] Comment on above: Performed By: #### P HEP, HIVCMB #### [address] [id number] Pharmacognosist: Alvino Davila MD #### CP, CBC, HCG #### [address] [place] [phone] Pharmacognosist: Luis A Peng MD MCH (RBC) [Entitic mass] 28.4 pg Normal 25.2-33.5 [facility] Comment on above: Performed By: #### P HEP, HIVCMB #### [address] [phone] Pharmacognosist: Alvino Davila MD #### CP, CBC, HCG #### [address] [place] [phone] Pharmacognosist: Luis A Peng MD MCHC (RBC) [Mass/Vol] 32.6 g/dL Normal 28.4-34.[address] [facility] Comment on above: Performed By: #### P HEP, HIVCMB #### [address] [phone] Pharmacognosist: Alvino Davila MD #### CP, CBC, HCG #### [facility] [address] [place], [place] 4303483 Pharmacognosist: Luis A Peng MD MCV (RBC) [Entitic vol] 87.2 fL Normal 82.6-102.9 [facility] Comment on above: Performed By: #### P HEP, HIVCMB #### [address] [phone] Pharmacognosist: Alvino Daivla MD #### CP, CBC, HCG #### [address] [place], [place] 9057083 Pharmacognosist: Luis A Peng MD NRBC Automated 0.0 per 100 WBC Normal 0.0 [facility] Comment on above: Performed By: #### P HEP, HIVCMB #### [address] [phone] Pharmacognosist: Alvino Davila MD #### CP, CBC, HCG #### [address] [place], [place] 8563483 Pharmacognosist: Luis A Peng MD Platelet mean volume (Bld) [Entitic vol] 11.2 fL Normal 8.1-13.5 [facility] Comment on above: Performed By: #### P HEP, HIVCMB #### [address] [phone] Pharmacognosist: Alvino Davila MD #### CP, CBC, HCG #### [address] [place], [place] 1330283 Pharmacognosist: Luis A Peng MD Platelets (Bld) [#/Vol] 241 10*3/uL Normal 138-453 [facility] Comment on above: Performed By: #### P HEP, HIVCMB #### [address] [address] Pharmacognosist: Alvino Davila MD #### CP, CBC, HCG #### [address] [place] [address] Pharmacognosist: Luis A Peng MD RBC (Bld) [#/Vol] 4.61 10*6/uL Normal 3.95-5.11 [facility] Comment on above: Performed By: #### P HEP, HIVCMB #### [place] [address] [place], [place] 1739508 Pharmacognosist: Alvino Davila MD #### CP, CBC, HCG #### [address] [place] [address] Pharmacognosist: Luis A Peng MD WBC (Bld) [#/Vol] 9.0 10*3/uL Normal 3.5-11.3 [facility] Comment on above: Performed By: #### P HEP, HIVCMB #### [place] [address] [place], [place] 9377508 Pharmacognosist: Alvino Davila MD #### CP, CBC, HCG #### [address] [place] [address] Pharmacognosist: Luis A Peng MD Erythrocyte distribution width (RBC) [Ratio] 12.5 % 11.8 - 14.4 % [place] Hematocrit (Bld) [Volume fraction] 40.2 % 36.3 - 47.1 % [place] Hemoglobin (Bld) [Mass/Vol] 13.1 g/dL 11.9 - 15.1 g/dL [place] MCH (RBC) [Entitic mass] 28.4 pg 25.2 - 33.5 pg [place] MCHC (RBC) [Mass/Vol] 32.6 g/dL 28.4 - 34.8 g/dL [place] MCV (RBC) [Entitic vol] 87.2 fL 82.6 - 102.9 fL [place] Platelet mean volume (Bld) [Entitic vol] 11.2 fL 8.1 - 13.5 fL [place], [place] Platelets (Bld) [#/Vol] 241 10*3/uL [place] RBC (Bld) [#/Vol] 4.61 10*6/uL 3.95 - 5.1 1 m/uL [place] WBC (Bld) [#/Vol] 0.0 10*3/uL 0.0 per 100 WBC [place] WBC (Bld) [#/Vol] 9.0 10*3/uL [place] Comp Metabolic Profon 2019 (cont.) Normal [facility] Comment on above: Result Comment: Aver age GFR for 20-29 years old: 116 mL/min/1.73sq m Chronic Kidney Disease: <60 mL/min/1.73sq m Kidney failure: <15 mL/min/1.73sq m eGFR calculated using average adult body mass. Additional eGFR calculator available at: http://www.Fan[employer]/multiple_crcl_2011.htm Performed By: #### P HEP, HIVCMB #### [facility] [employer] [facility] [address] [place], [place] [id number] Pharmacognosist: Alvino Davila MD #### CP, CBC, HCG #### [facility] [address] [place] [address] [place] [address] Pharmacognosist: Luis A Peng MD Albumin [Mass/Vol] 4.2 g/dL Normal 3.5-5.2 [facility] Comment on above: Performed By: #### P HEP, HIVCMB #### [facility] [employer] [facility] [address] [place], [place] [phone] Pharmacognosist: Alvino Davila MD #### CP, CBC, HCG #### [facility] [address] [place] [address] Pharmacognosist: Luis A Peng MD Albumin/Globulin [Mass ratio] 1.7 {ratio} Normal 1.0-2.5 [facility] Comment on above: Performed By: #### P HEP, HIVCMB #### [address] [address] Pharmacognosist: Alvino Davila MD #### CP, CBC, HCG #### [facility] [address] [place], [place] 9671183 Pharmacognosist: Luis A Peng MD Alkaline Phos 69 U/L Normal 35-104 [facility] Comment on above: Performed By: #### P HEP, HIVCMB #### [address] [address] Pharmacognosist: Alvino Davila MD #### CP, CBC, HCG #### [address] [place] [address] Pharmacognosist: Luis A Peng MD ALT [Catalytic activity/Vol] 78 U/L High 5-33 [facility] Comment on above: Performed By: #### P HEP, HIVCMB #### [address] [address] Pharmacognosist: Alvino Davila MD #### CP, CBC, HCG #### [address] [place] [address] Pharmacognosist: Luis A Peng MD Anion gap [Moles/Vol] 9 mmol/L Normal 9-[address] [facility] Comment on above: Performed By: #### P HEP, HIVCMB #### [address] [address] Pharmacognosist: Alvino Davila MD #### CP, CBC, HCG #### [address] [place] [address] Pharmacognosist: Luis A Peng MD AST [Catalytic activity/Vol] 44 U/L High <32 [facility] Comment on above: Performed By: #### P HEP, HIVCMB #### [address] [address] Pharmacognosist: Alvino Davila MD #### CP, CBC, HCG #### [facility] [address] [place] [address] Pharmacognosist: Luis A Peng MD Bilirubin Ql (U) 0.15 mg/dL Low 0.3-1.[address] [facility] Comment on above: Performed By: #### P HEP, HIVCMB #### [address] [id number] Pharmacognosist: Alvino Davila MD #### CP, CBC, HCG #### [facility] [address] [place] [address] Pharmacognosist: Luis A Peng MD BUN/CRE Ratio 20 Normal 9-20 [facility] Comment on above: Performed By: #### P HEP, HIVCMB #### [address] [address] Pharmacognosist: Alvino Davila MD #### CP, CBC, HCG #### [facility] [address] [place] [address] Pharmacognosist: Luis A Peng MD Calcium [Mass/Vol] 9.4 mg/dL Normal 8.6-10.4 [facility] Comment on above: Performed By: #### P HEP, HIVCMB #### [address] [address] Pharmacognosist: Alvino Davila MD #### CP, CBC, HCG #### [facility] [address] [place] [place] [address] Pharmacognosist: Luis A Peng MD Chloride [Moles/Vol] 97 mmol/L Low 98-107 [facility] Comment on above: Performed By: #### P HEP, HIVCMB #### [address] [address] Pharmacognosist: Alvino Davila MD #### CP, CBC, HCG #### [address] [place], [place] 5335083 Pharmacognosist: Luis A Peng MD CO2 [Moles/Vol] 28 mmol/L Normal 20-31 [facility] Comment on above: Performed By: #### P HEP, HIVCMB #### [address] [address] Pharmacognosist: Alvino Davila MD #### CP, CBC, HCG #### [address] [place], [place] 9981983 Pharmacognosist: Luis A Peng MD Creatinine [Mass/Vol] 0.55 mg/dL Normal 0.50-0.[address] [facility] Comment on above: Performed By: #### P HEP, HIVCMB #### [address] [address] Pharmacognosist: Alvino Davila MD #### CP, CBC, HCG #### [address] [place], [place] 1322883 Pharmacognosist: Luis A Peng MD GFR, Amer >60 Normal >[address] [facility] Comment on above: Performed By: #### P HEP, HIVCMB #### [address] [address] Pharmacognosist: Alvino Davila MD #### CP, CBC, HCG #### [address] [place], [place] 7884283 Pharmacognosist: Luis A Peng MD GFR,non Amer >60 Normal >60 [facility] Comment on above: Performed By: #### P HEP, HIVCMB #### [address] [address] Pharmacognosist: Alvino Davila MD #### CP, CBC, HCG #### [address] [place], [place] 5187883 Pharmacognosist: Luis A Peng MD Glucose [Mass/Vol] 85 mg/dL Normal 70-99 [facility] Comment on above: Performed By: #### P HEP, HIVCMB #### [address] [id number] Pharmacognosist: Alvino Davila MD #### CP, CBC, HCG #### [address] [place], [place] [id number] Pharmacognosist: Luis A Peng MD Potassium [Moles/Vol] 4.3 mmol/L Normal 3.7-5.[address] [facility] Comment on above: Performed By: #### P HEP, HIVCMB #### [address] [id number] Pharmacognosist: Alvino Davila MD #### CP, CBC, HCG #### [address] [place] [id number] Pharmacognosist: Luis A Peng MD Protein [Mass/Vol] 6.7 g/dL Normal 6.4-8.3 [facility] Comment on above: Performed By: #### P HEP, HIVCMB #### [address] [address] Pharmacognosist: Alvino Davila MD #### CP, CBC, HCG #### [address] [place], [place] [id number] Pharmacognosist: Luis A Peng MD Sodium [Moles/Vol] 134 mmol/L Low 135-144 [facility] Comment on above: Performed By: #### P HEP, HIVCMB #### [address] [address] Pharmacognosist: Alvino Davila MD #### CP, CBC, HCG #### [address] [place] [id number] Pharmacognosist: Luis A Peng MD Staging: Normal [facility] Comment on above: Result Comment: Stag e 1: Some kidney damage normal GFR Stage 2: Mild kidney damage GFR 60-89 Stage 3: Moderate kidney damage GFR 30-59 Stage 4: Severe kidney damage GFR 15-29 Stage 5: Severe kidney damage GFR <15 ESRD - chronic treatment by dialysis or transplant Performed By: #### P HEP, HIVCMB #### [id number] [place], [place] [id number] Pharmacognosist: Alvino Davila MD #### CP, CBC, HCG #### [facility] [address] [place] [address] Pharmacognosist: Luis A Peng MD Urea nitrogen [Mass/Vol] 11 mg/dL Normal 6-20 [facility] Comment on above: Performed By: #### P HEP, HIVCMB #### [id number] [place], [place] [id number] Pharmacognosist: Alvino Davila MD #### CP, CBC, HCG #### [facility] [address] [place] [address] Pharmacognosist: Luis A Peng MD [facility] Metabolic Pane [facility] 01-01-2020 Albumin [Mass/Vol] 4.2 g/dL 3.5 - 5.2 g/dL [place], [place] Albumin/Globulin [Mass ratio] 1.7 {ratio} [place], [place] ALP [Catalytic activity/Vol] 69 U/L 35 - 104 U/L [place] ALT [Catalytic activity/Vol] 78 U/L High 5 - 33 U/L [place] Anion gap [Moles/Vol] 9 mmol/L 9 - 17 mmol/L [place] AST [Catalytic activity/Vol] 44 U/L High <32 [place] Bilirubin Ql (U) 0.15 mg/dL Low 0.3 - 1.2 mg/dL [place], [place] Bun/Cre Ratio 20 [place], [place] Calcium [Mass/Vol] 9.4 mg/dL 8.6 - 10. 4 mg/dL [place] Chloride [Moles/Vol] 97 mmol/L Low 98 - 107 mmol/L [place] CO2 [Moles/Vol] 28 mmol/L 20 - 31 mmol/L [place] Creatinine [Mass/Vol] 0.55 mg/dL 0.5 - 0.9 mg/d L [place] GFR >60 >60 mL/min [place], [place] GFR Non- >60 >60 mL/min [place] Glucose [Mass/Vol] 85 mg/dL 70 - 99 mg/dL [place] Interpretation and review of laboratory results Abnormal [place] Potassium [Moles/Vol] 4.3 mmol/L 3.7 - 5.3 mmol/L [place] Protein [Mass/Vol] 6.7 g/dL 6.4 - 8.3 g/dL [place] Sodium [Moles/Vol] 134 mmol/L Low 135 - 144 mmol/L [place] Urea nitrogen [Mass/Vol] 11 mg/dL 6 - 20 mg/dL [place] HCG Qualitative, Serumon hCG Qual Negative NEGATIVE [place] Comment on above: Specimens with hCG l evels near the threshold of the test (25 mIU/mL) may give a negative or indeterminate result. In such cases, another test should be performed with a new specimen in 48-72 hours. If early is suspected clinically in this setting, correlation with quantitative serum b-hCG level is suggested. [facility] [employer] has confirmed the use of plasma for this test. This has not been cleared or approved by the U.S. Food and Drug Administration. The FDA has determined that such clearance is not necessary. HCG Screen, Bloodon 01-01-20 20 HCG Qn Negative Normal NEG [facility] Comment on above: Result Comment: Spec imens with hCG levels near the threshold of the test (25 mIU/mL) may give a negative or indeterminate result. In such cases, another test should be performed with a new specimen in 48-72 hours. If early is suspected clinically in this setting, correlation with quantitative serum b-hCG level is suggested. [facility] has confirmed the use of plasma for this test. This has not been cleared or approved by the U.S. Food and Drug Administration. The FDA has determined that such clearance is not necessary. Performed By: #### P HEP, HIVCMB #### [facility] [address] [place] [address] Pharmacognosist: Alvino Davila MD #### CP, CBC, HCG #### [address] [place] [address] Pharmacognosist: Luis A Peng MD HIV Ag/Abon 01-01-2020 HIV Ag/Ab NONREACTIVE Normal [facility] Comment on above: Result Comment: No l aboratory evidence of HIV infection. If acute HIV infection is suspected, consider testing for HIV-1 RNA. Performed By: #### P HEP, HIVCMB #### [address] [address] Pharmacognosist: Alvino Davila MD #### CP, CBC, HCG #### [address] [place] [address] Pharmacognosist: Luis A Peng MD HIV Screenon 01-01-2020 HIV Ag/Ab NONREACTIVE NONREACTIVE [place], [place] Comment on above: No laboratory eviden ce of HIV infection. If acute HIV infection is suspected, consider testing for HIV-1 RNA. Hepatitis Acute [facility] 12-31 Hep A Ab,IgM NONREACTIVE Normal NR [facility] Comment on above: Performed By: #### P HEP, HIVCMB #### [id number] [place] [address] Pharmacognosist: Alvino Davila MD #### CP, CBC, HCG #### [address] [place] [address] Pharmacognosist: Luis A Peng MD Hep B Core Ab,IgM NONREACTIVE Normal [facility] Comment on above: Performed By: #### P HEP, HIVCMB #### [address] [address] Pharmacognosist: Alvino Davila MD #### CP, CBC, HCG #### [address] [place], [place] [id number] Pharmacognosist: Luis A Peng MD Hep B Surf Ag NONREACTIVE Normal [facility] Comment on above: Performed By: #### P HEP, HIVCMB #### [address] [address] Pharmacognosist: Alvino Davila MD #### CP, CBC, HCG #### [address] [place], [place] [id number] Pharmacognosist: Luis A Peng MD Hep C Ab NONREACTIVE Normal [facility] Comment on above: Result Comment: The [...] Performed By: #### P HEP, HIVCMB #### [address] [address] Pharmacognosist: Alvino Davila MD #### CP, CBC, HCG #### [address] [place], [place] [id number] Pharmacognosist: Luis A Peng MD Hepatitis Panel, [facility] HAV IgM IA Qn (S) NONREACTIVE NONREACTIVE [place] Hep B Core Ab, IgM NONREACTIVE NONREACTIVE [place] Hepatitis B Surface Ag NONREACTIVE NONREACTIVE [place] Hepatitis C Ab NONREACTIVE NONREACTIVE [place], [place] Comment on above: The hepatitis C [...] predicted among non-blacks MDRD (S/P/Bld) [Vol rate/Area] [place] Comment on above: Stage 1: Some [...] body mass. Additional eGFR calculator available at: http://www.[employer]/multiple_crcl_2011.htm Vital Signs Date Time Vital Sign Value Performing Clinician Araselii lity 06-27-2025 10:02-0400 Body mass index (BMI) [Ratio] 28.04 kg/m2 Paradise MORROW Work Phone: [facility] 06-27-2025 10:02-0400 Body weight 76.43 kg Paradise MORROW Work Phone: [facility] 06-27-2025 10:02-0400 Diastolic blood pressure 76 mm[Hg] Paradise MORROW Work Phone: [facility] 06-27-2025 10:02-0400 Systolic blood pressure 120 mm[Hg] Paradise MORROW Work Phone: [facility] 06-20-2025 14:32-0400 Body mass index (BMI) [Ratio] 28.09 kg/m2 [facility] Work Phone: [facility] 06-20-2025 14:32-0400 Body weight 76.57 kg Mee Yary [employer] Work Phone: [facility] 06-20-2025 14:32-0400 Diastolic blood pressure 80 mm[Hg] Mee Yary DO Work Phone: [facility] 06-20-2025 14:32-0400 Systolic blood pressure 120 mm[Hg] Mee Yary DO Work Phone: [facility] 06-07-2025 10:17-0400 Body mass index (BMI) [Ratio] 27.46 kg/m2 Mee Yary DO Work Phone: [facility] 06-07-2025 10:17-0400 Body weight 74.84 kg Mee Yary DO Work Phone: [facility] 06-07-2025 10:17-0400 Diastolic blood pressure 74 mm[Hg] Mee Yary DO Work Phone: [facility] 06-07-2025 10:17-0400 Systolic blood pressure 118 mm[Hg] Mee Yary DO Work Phone: [facility] 05-30-2025 09:30-0400 Body height 165.1 cm Nohemy Hernandez MD Work Phone: [facility] 05-30-2025 09:30-0400 Body mass index (BMI) [Ratio] 27.09 kg/m2 Nohemy Hernandez MD Work Phone: [facility] 05-30-2025 09:30-0400 Body weight 73.85 kg Nohemy Hernandez MD Work Phone: [facility] 05-30-2025 09:30-0400 Diastolic blood pressure 73 mm[Hg] Nohemy Hernandez MD Work Phone: [facility] 05-30-2025 09:30-0400 Heart rate 83 /min Nohemy Hernandez MD Work Phone: [facility] 05-30-2025 09:30-0400 Systolic blood pressure 110 mm[Hg] Nohemy Hernandez MD Work Phone: [facility] 05-30-2025 08:57-0400 Body height 165.1 cm Nohemy Hernandez MD Work Phone: [facility] 05-16-2025 10:59-0400 Body mass index (BMI) [Ratio] 26.46 kg/m2 Mee Yary DO Work Phone: [facility] 05-16-2025 10:59-0400 Body weight 72.12 kg Mee Yary DO Work Phone: [facility] 05-16-2025 10:59-0400 Diastolic blood pressure 70 mm[Hg] Mee Yary DO Work Phone: [facility] 05-16-2025 10:59-0400 Systolic blood pressure 110 mm[Hg] Mee Yary DO Work Phone: [facility] 05-02-2025 15:42-0400 Body mass index (BMI) [Ratio] 26.26 kg/m2 Mee Yary DO Work Phone: [facility] 05-02-2025 15:42-0400 Body weight 71.58 kg Mee Yary DO Work Phone: [facility] 05-02-2025 15:42-0400 Diastolic blood pressure 70 mm[Hg] Mee Yary DO Work Phone: [facility] 05-02-2025 15:42-0400 Systolic blood pressure 104 mm[Hg] Mee Yary DO Work Phone: [facility] 04-18-2025 13:35-0400 Body mass index (BMI) [Ratio] 25.79 kg/m2 Mee Yary DO Work Phone: [facility] 04-18-2025 13:35-0400 Body weight 70.31 kg Mee Yary DO Work Phone: [facility] 04-18-2025 13:35-0400 Diastolic blood pressure 64 mm[Hg] Mee Yary DO Work Phone: [facility] 04-18-2025 13:35-0400 Systolic blood pressure 112 mm[Hg] Mee Yary DO Work Phone: [facility] 04-06-2025 11:47-0400 Body mass index (BMI) [Ratio] 25.76 kg/m2 Noms Nurse [facility] 04-06-2025 11:47-0400 Body weight 70.22 kg Noms Nurse [facility] Encounters Encounter Date Encounter Type Care Provider Facility Start: 06-27-2025 End: 06-27-2025 Bamboo flowsheet Paradise MORROW Work Phone: [facility] Start: 06-27-2025 End: 06-27-2025 Bamboo flowsheet Paradise MORROW Work Phone: [facility] Start: 06-27-2025 End: 06-27-2025 Office outpatient visit 15 minutes Paradise MORROW Work Phone: [facility] Comment on above: Third trimester preg helder ([facility]); 35 weeks gestation of ([facility]) Start: 06-27-2025 End: 06-27-2025 ambulatory PARADISE OLVERA Not Available Start: 06-20-2025 End: 06-20-2025 Office outpatient visit 15 minutes Mee Yary DO Work Phone: [facility] Comment on above: 34 weeks gestation o f ([facility]); Third trimester ([facility]); H/O opioid abuse ([facility]); History of placental abruption; Hepatitis C virus infection without hepatic coma, unspecified chronicity Start: 06-20-2025 End: 06-20-2025 ambulatory MEE YARY Not Available Start: 06-20-2025 End: 06-20-2025 Bamboo flowsheet Mee Yary DO Work Phone: [facility] Start: 06-20-2025 End: 06-20-2025 Bamboo flowsheet Mee Yary DO Work Phone: [facility] Start: 06-14-2025 End: 06-14-2025 Clinisync Result [...] on above: Third trimester preg helder ([facility]); 32 weeks gestation of ([facility]); H/O opioid abuse ([facility]); History of placental abruption; Diabetes mellitus screening Start: 06-05-2025 End: 06-05-2025 Clinisync Result Encounter Mee Yary DO Work Phone: [facility] Unsolicited Start: 06-05-2025 End: 06-05-2025 Clinisync Result Encounter Mee Yary DO Work Phone: [facility] External Department Unsolicited Start: 05-30-2025 End: 05-30-2025 Chart abstracting Nohemy Hernandez MD Work Phone: [facility] Start: 05-30-2025 End: 05-30-2025 Office outpatient new 45 minutes Nohemy Hernandez MD Work Phone: [facility] Comment on above: History of placental abruption (Primary Dx); Hepatitis C virus infection without hepatic coma, unspecified chronicity Start: 05-30-2025 End: 05-30-2025 ambulatory MEE R [facility] Start: 05-21-2025 End: 05-21-2025 Clinisync Result Encounter Mee Yary DO Work Phone: [facility] External Department Unsolicited Start: 05-21-2025 End: 05-21-2025 Clinisync Result Encounter Mee Yary DO Work Phone: [facility] External Department Unsolicited Start: 05-16-2025 End: 05-16-2025 Bamboo flowsheet Mee Yary DO Work Phone: [facility] Start: 05-16-2025 End: 05-16-2025 Bamboo flowsheet Mee Yary DO Work Phone: [facility] Start: 05-16-2025 End: 05-16-2025 Office outpatient visit 15 minutes Mee Yary DO Work Phone: [facility] Comment on above: 29 weeks gestation o f ([facility]); Third trimester ([facility]); Request for sterilization; H/O opioid abuse ([facility]); History of placental abruption Start: 05-16-2025 End: 05-16-2025 ambulatory MEE YARY Not Available Start: 05-02-2025 End: 05-02-2025 ambulatory MEE YARY Not Available Start: 05-02-2025 End: 05-02-2025 Office outpatient visit 15 minutes Mee Yary DO Work Phone: [facility] Comment on above: Second trimester pre gnancy ([facility]); 27 weeks gestation of ([facility]); Request for sterilization; H/O opioid abuse ([facility]); History of placental abruption Start: 05-02-2025 End: [...] Comment on above: Second trimester pre gnancy ([facility]); 25 weeks gestation of ([facility]) Start: 04-09-2025 End: 04-09-2025 Clinisync [...] 03-27-2021 End: 03-28-2021 ambulatory Helder Monk MD Facility:[facility] Start: 12-06-2020 End: 12-07-2020 Patient encounter procedure [facility] Start: 12-06-2020 End: 12-06-2020 Subsequent hospital visit by physician [facility] Start: 11-11-2020 End: 11-12-2020 Patient encounter procedure [facility] Start: 05-30-2020 End: 05-31-2020 Patient encounter procedure [facility] Start: 05-30-2020 End: 05-30-2020 Subsequent hospital visit by physician [facility] Start: 01-01-2020 End: 01-02-2020 Patient encounter procedure MALINI FRITZ [facility] Start: 01-01-2020 End: 01-01-2020 Subsequent hospital visit by physician [facility] Start: 09-20-2018 End: 09-21-2018 Patient encounter procedure Sidney Nava Facility:[id number] Procedures Date Procedure Procedure Detail Performing Clinician Start: 06-27-2025 Urnls dip stick/tabl et rgnt non-auto w/o micrscp Paradise MORROW Work Phone: Start: 06-20-2025 Urnls dip stick/tabl et rgnt non-auto w/o micrscp Mee Yary DO Work Phone: Start: 06-14-2025 [facility] (CLEAN/CATCH) SENIOR RECRUITER/MICRO IF IND. Mee Yary DO Work Phone: [...] Not In System Ref Prov Start: 05-21-2025 [facility] DRUG SCREEN RAPI D (URINE) Mee Yray DO Work Phone: Start: 05-16-2025 Urnls dip [...] Mee Yary DO Work Phone: Start: 11-29-2024 [facility] PREG QUANT HCG Core y Yary DO Work Phone: Start: 12-06-2020 Acute hepatitis panel E jean Fritz Work Phone: Start: 12-06-2020 Antibody hiv-1&hiv-2 single result Malini Fritz Work Phone: Start: 12-06-2020 Blood count complete automated Malini Fritz Work Phone: Start: 12-06-2020 Comprehensive metabo lic panel Malini Fritz Work Phone: Start: 12-06-2020 Gonadotropin chorion ic qualitative Malini Fritz Work Phone: Start: 05-30-2020 Acute hepatitis panel E JEAN FRITZ Start: 05-30-2020 Antibody hiv-1&hiv-2 single result MALINI FRITZ Start: 05-30-2020 Blood count complete automated MALINI [...] Adult BMI Screening Adult BMI Screen ing [facility] Start: 05-30-2026 Tobacco Screening Tobacco Screening [facility] Start: 07-05-2025 End: 07-05-2025 Patient encounter procedure [facility] Start: 07-04-2025 End: 07-04-2025 Patient encounter procedure 07/04/2025 10:50 AM EDT Routine [facility] [address] [place] [id number] Mee Pringle DO [address] [place] [address] [facility] Start: 07-02-2025 Influenza vaccination [facility] Start: 06-27-2025 End: 06-27-2026 CULTURE, GROUP B STREP WITH SUSCEPTIBLITY CULTURE, GROUP B STREP WITH SUSCEPTIBLITY Lab Routine Third trimester ([facility]) Expected: 06/27/2025, Expires: 06/27/2026 [facility] Work Phone: Comment on above: Expected: 06/27/2025 , Expires: 06/27/2026 Start: 06-27-2025 End: 06-27-2025 Patient encounter procedure [facility] Comment on above: Arrived Start: 06-20-2025 End: 06-20-2025 Patient encounter procedure [facility] Comment on above: Arrived Start: 05-30-2025 End: 05-30-2026 US MFM with or without consult US MFM with or without consult Imaging Routine History of placental abruption Hepatitis C virus infection without hepatic coma, unspecified chronicity Expected: 05/30/2025, Expires: 05/30/2026 [facility] Comment on above: Expected: 05/30/2025 , Expires: 05/30/2026 Start: 05-30-2025 End: 05-30-2025 Patient encounter procedure [facility] Start: 05-30-2025 End: 05-30-2025 Professional / ancillary services management 05/30/2025 10:30 AM EDT Ancillary Procedure [facility] [address] [facility] [facility] [place] [phone] [facility] Start: 05-30-2025 Subsequent hospital visit by physician 05/30/2025 9:15 AM EDT Hospital Encounter [facility] - M[facility] US Imaging [address] [place] [address] [facility] Start: 05-16-2025 End: 11-16-2025 US biophysical profile w non stress test US biophysical profile w non stress test Imaging Routine H/O opioid abuse ([facility]) History of placental abruption Expected: 05/16/2025 (Approximate), Expires: 11/16/2025 [facility] Work Phone: Comment on above: Expected: 05/16/2025 (Approximate), Expires: 11/16/2025 Start: 05-16-2025 End: 05-16-2025 Patient encounter procedure [facility] Comment on above: Arrived Start: 05-02-2025 End: 05-02-2025 Patient encounter procedure 05/02/2025 3:20 PM EDT Routine [facility] [address] [facility] [place] [address] Mee Pringle, DO [address] [place] [address] [facility] Start: 04-18-2025 End: 08-18-2025 US for US OB follow up transabdominal approach Imaging Routine Second trimester ([facility]) Expected: 04/18/2025, Expires: 08/18/2025 [facility] Work Phone: Comment on above: Expected: 04/18/2025 , Expires: 08/18/2025 Start: 04-18-2025 End: 04-18-2025 Patient encounter procedure 04/18/2025 1:30 PM EDT Routine [facility] [address] [place] [address] Mee Pringle, DO [address] [place], [place] [id number] [facility] Start: 04-06-2025 End: 04-06-2026 ABO/Rh ABO/Rh Lab Routine Missed menses , unspecified gestational age ([facility]) Expected: 04/06/2025 (Approximate), Expires: 04/06/2026 [facility] Comment on above: Expected: 04/06/2025 (Approximate), Expires: 04/06/2026 Start: 04-06-2025 End: 04-06-2026 Blood type and Indirect antibody screen panel - Blood Type and screen Lab Routine Missed menses , unspecified gestational age ([facility]) Expected: 04/06/2025 (Approximate), Expires: 04/06/2026 [facility] Work Phone: Comment on above: Expected: 04/06/2025 (Approximate), Expires: 04/06/2026 Start: 04-06-2025 End: 04-06-2026 CBC panel - Blood by Automated count CBC Lab Routine Diabetes mellitus screening Expected: 04/06/2025 (Approximate), Expires: 04/06/2026 [facility] Comment on above: Expected: 04/06/2025 (Approximate), Expires: 04/06/2026 Start: 04-06-2025 End: 04-06-2026 Drugs of abuse panel - Urine by Screen method Rapid drug screen, urine Lab Routine , unspecified gestational age ([facility]) Encounter for supervision of normal first in first trimester ([facility]) Expected: 04/06/2025 (Approximate), Expires: 04/06/2026 [facility] Comment on above: Expected: 04/06/2025 (Approximate), Expires: 04/06/2026 Start: 04-06-2025 End: 04-06-2026 Measurement of glucose 1 hour after glucose challenge for glucose tolerance test Glucose tolerance, 1 hour Lab Routine Diabetes mellitus screening Expected: 04/06/2025 (Approximate), Expires: 04/06/2026 [facility] Comment on above: Expected: 04/06/2025 (Approximate), Expires: 04/06/2026 Start: 04-06-2025 End: 07-07-2025 US for US OB 14+ weeks anatomy scan Imaging Routine Screening, , for anatomic survey ([facility]) Expected: 04/06/2025, Expires: 07/07/2025 [facility] Comment on above: Expected: 04/06/2025 , Expires: 07/07/2025 Start: 07-02-2024 COVID-19 Vaccine ( season) COVID-19 Vaccine ( season) [facility] Start: 07-02-2024 Influenza vaccination Influenza Vacc ine (#1) [facility] Start: 2022 Screening for malign ant neoplasm of cervix [facility] Start: 07-02-2020 Influenza vaccination Flu vaccine (# 1) [place] Start: 2013 Screening for malign ant neoplasm of cervix Pap Smear [facility] Start: 2011 DTaP,Tdap and Td Vaccines (1 - Tdap) DTaP,Tdap and Td Vaccines (1 - Tdap) [facility] Start: 2010 Adult BMI Follow Up Plan Adult BMI Follow Up Plan [facility] Start: 2010 Adult BMI Screening Adult BMI Screen ing [facility] Start: 2004 Depression Screening Depression Scre ening [facility] Start: 2004 Tobacco Screening Tobacco Screening [facility] Start: 2003 DTaP,Tdap and Td Vaccines (6 - Tdap) DTaP,Tdap and Td Vaccines (6 - Tdap) [facility] End: 05-30-2026 Anti cariolipin AB IgG IgA IgM Anti cariolipin AB IgG IgA IgM Lab Routine History of placental abruption 1 Occurrences starting 05/30/2025 until 05/30/2026 [facility] Comment on above: 1 Occurrences starti ng 05/30/2025 until 05/30/2026 End: 05-30-2026 aPTT in Blood by Coagulation assay APTT Lab Routine History of placental abruption Hepatitis C virus infection without hepatic coma, unspecified chronicity 1 Occurrences starting 05/30/2025 until 05/30/2026 [facility] Comment on above: 1 Occurrences starti ng 05/30/2025 until 05/30/2026 Bacteria identified in Urine by Culture Urine culture Microbiology Routine Missed menses Ordered: 04/06/2025 [facility] Comment on above: Ordered: 04/06/2025 End: 05-30-2026 Beta-2 glycoprotein antibodies Beta-2 glycoprotein antibodies Lab Routine History of placental abruption 1 Occurrences starting 05/30/2025 until 05/30/2026 [facility]: 1 Occurrences starti ng 05/30/2025 until 05/30/2026 CBC W Auto Different ial panel - Blood CBC and differential Lab Routine Missed menses , unspecified gestational age ([facility]) Ordered: 04/06/2025 [facility] [facility] Comment on above: Ordered: 04/06/2025 End: 05-30-2026 Comprehensive metabolic 2000 panel - Serum or Plasma Comprehensive metabolic panel Lab Routine History of placental abruption Hepatitis C virus infection without hepatic coma, unspecified chronicity 1 Occurrences starting 05/30/2025 until 05/30/2026 [place] Work Phone: Comment on above: 1 Occurrences starti ng 05/30/2025 until 05/30/2026 End: 05-30-2026 DRVVT DRVVT Lab Routine History of placental abruption 1 Occurrences starting 05/30/2025 until 05/30/2026 [facility]: 1 Occurrences starti ng 05/30/2025 until 05/30/2026 Hemoglobin A1c/Hemoglobin.total in Blood Hemoglobin A1c Lab Routine Missed menses , unspecified gestational age ([facility]) Ordered: 04/06/2025 [facility] Comment on above: Ordered: 04/06/2025 Hemoglobin A1c/Hemoglobin.total in Blood Hemoglobin A1c Lab Routine Diabetes mellitus screening Ordered: 06/07/2025 [employer] Work Phone: Comment on above: Ordered: 06/07/2025 Hepatitis B virus surface Ag [Presence] in Serum or Plasma by Immunoassay Hepatitis B surface antigen Lab Routine Missed menses , unspecified gestational age ([facility]) Ordered: 04/06/2025 [facility] [employer] Comment on above: Ordered: 04/06/2025 Hepatitis C virus Ab [Presence] in Serum or Plasma by Immunoassay Hepatitis C antibody Lab Routine Missed menses , unspecified gestational age ([facility]) Ordered: 04/06/2025 [facility] [employer] Comment on above: Ordered: 04/06/2025 HIV-1/HIV-2 antigen/antibody combination immunoassay HIV-1 and HIV-2 antibodies Lab Routine Missed menses , unspecified gestational age ([facility]) Ordered: 04/06/2025 [facility] Comment on above: Ordered: 04/06/2025 End: 05-30-2026 Protime & INR Protime & INR Lab Routine History of placental abruption Hepatitis C virus infection without hepatic coma, unspecified chronicity 1 Occurrences starting 05/30/2025 until 05/30/2026 [facility] Comment on above: 1 Occurrences starti ng 05/30/2025 until 05/30/2026 Reagin Ab [Presence] in Serum by RPR RPR Lab Routine Missed menses , unspecified gestational age ([facility]) Ordered: 04/06/2025 [facility] Comment on above: Ordered: 04/06/2025 Rubella antibody, IgG Rubella an tibody, IgG Lab Routine Missed menses , unspecified gestational age ([facility]) Ordered: 04/06/2025 [facility] Comment on above: Ordered: 04/06/2025 Payers Date Payer Category Payer Medicaid (Managed Care) [employer] [id number] 2021 Unknown 2019 Unknown [facility] xxxxxxxxxxxx 2019-Present [phone] [place] [id number] xxxxxxxxxxxx [id number] 2019 Unknown [facility] [id number] 2019-Present [phone] [address] [place] [address] [id number]. [id number] 2019 Medicaid [place] [employer] [id number] 1992 Unknown [id number] 2.16.840.1.736857.3.579.2. 173 1992 Unknown [id number] 2.16.840.1.247496.3.579.2. 173 1992 Unknown [id number] 2.16.840.1.466800.3.579.2. 173 1992 Unknown [id number] 2.16.840.1.585333.3.579.2. 173 1992 Unknown [id number] 2.16.840.1.632478.3.579.2. 196 1992 Unknown [id number] 2.16.840.1.365826.3.579.2. 593 1992 Unknown [id number] 2.16.840.1.951535.3.579.2. 593 1992 Unknown [id number] 2.16.840.1.235992.3.579.2. 593 1992 Unknown [id number] 2.16.840.1.951356.3.579.2. 593 1992 Unknown [id number] 2.16.840.1.247581.3.579.2. 593 1992 Unknown [id number] 2.16.840.1.466953.3.579.2. 593 1992 Unknown [id number] 2.16.840.1.606950.3.579.2. 1286 1992 Unknown [id number] 2.16.840.1.701025.3.579.2. 1286 1992 Unknown [id number] 2.16.840.1.804587.3.579.2. 1259 1992 Unknown [id number] 2.16.840.1.766303.3.579.2. 1259 1992 Unknown [id number] 2.16.840.1.785706.3.579.2. 1259 1992 Unknown [id number] 2.16.840.1.880440.3.579.2. 1259 1992 Unknown [id number] 2.16.840.1.173065.3.579.2. 1259 1992 Unknown [id number] 2.16.840.1.772418.3.579.2. 1259 1992 Unknown [id number] 2.16.840.1.879074.3.579.2. 1259 1959 Unknown [id number] Social History Date Type Detail Facility Tobacco smoking stat [facility] Unknown if ever smoked [place], [place] Start: 1990 Sex Assigned At Not on file [place] Start: 04-23-2023 End: 05-30-2025 Tobacco smoking status [facility] Smokes tobacco daily [facility] History of tobacco use Cigarette Smoker [facility] Start: 04-23-2023 End: 05-30-2025 Tobacco use and exposure Smokeless tobacco non-user [facility] Start: 04-23-2023 End: 06-20-2025 Alcoholic beverage intake Lifetime non-drinker (finding) [facility] Start: 04-23-2023 Tobacco Comment Smokes 6-10 ci garettes per day [facility] Start: 12-12-2020 End: 04-06-2025 Gender identity Not on file [facility] Start: 12-12-2020 End: 04-06-2025 History of Social function [facility] Start: 11-04-2024 [facility] Start: 05-30-2025 Alcoholic beverage intake Ex-drinker (finding) [facility] Unknown [facility] Start: 06-06-2015 Sex Female (finding) [facility] Start: 05-30-2025 Tobacco smoking stat [facility] Ex-smoker [facility] History of tobacco use Current smoker [facility] Clinical Notes 04-06-2025 to 06-27-2025 [place], [place] - 06/27/2025 9:50 AM EDTRaine Aguilar, [facility] - 06/20/2025 2:30 PM Vishnu Lynn, [facility] - 06/07/2025 9:40 AM Clive aRya, [facility] - 05/30/2025 10:30 AM EDT Note Date [...] (HCC) BMI 28.0-28.9,adult Drug abuse, opioid type ([facility]) Encounter for follow-up Encounter for gynecological examination (general) (routine) without abnormal findings Hepatitis C Labial cyst Pain pelvic HISTORY PAST MEDICAL HISTORY SOCIAL HISTORY Past Medical History: Diagnosis Date Abscess of labia Bipolar disorder (HCC) BMI 28.0-28.9,adult Drug abuse, opioid type ([facility]) Encounter for follow-up Encounter for gynecological examination [...] ASSESSMENT & PLAN ICD-10-CM 1. Third trimester ([facility]) Z34.93 POCT urinalysis dipstick manually resulted CULTURE, GROUP B STREP WITH SUSCEPTIBLITY CULTURE, GROUP B STREP WITH SUSCEPTIBLITY CANCELED: POCT urinalysis dipstick manually resulted CANCELED: CULTURE, GROUP B STREP WITH SUSCEPTIBLITY CANCELED: CULTURE, GROUP B STREP WITH SUSCEPTIBLITY 2. 35 weeks gestation of ([facility]) Z3A.35 Return OB: Patient is doing well [...] of: CRISTHIAN Sanders documented in this encounter [facility] 06-20-2025 History of Present illness Narrative [...] (HCC) BMI 28.0-28.9,adult Drug abuse, opioid type ([facility]) Encounter for follow-up Encounter for gynecological examination (general) (routine) without abnormal findings Hepatitis C Labial cyst Pain pelvic HISTORY PAST MEDICAL HISTORY SOCIAL HISTORY Past Medical History: Diagnosis Date Abscess of labia Bipolar disorder (HCC) BMI 28.0-28.9,adult Drug abuse, opioid type ([facility]) Encounter for follow-up Encounter for gynecological examination [...] nursing note reviewed. Exam conducted with a filler mixer present. Vitals: Estimated body mass index is 28.09 kg/m as calculated from the following: Height as of 12/09/22: 5' 5 . Weight as of this encounter: 168 lb 12.8 oz. BP: 120/80 No LMP recorded. Patient is . ASSESSMENT & PLAN ICD-10-CM 1. 34 weeks gestation of ([facility]) Z3A.34 POCT urinalysis dipstick manually resulted 2. Third trimester ([facility]) Z34.93 POCT urinalysis dipstick manually resulted 3. H/O opioid abuse ([facility]) F11.11 4. History of placental abruption Z87.59 [...] Mee Pringle DO documented in this encounter [facility] 06-07-2025 History of Present illness Narrative [...] (HCC) BMI 28.0-28.9,adult Drug abuse, opioid type ([facility]) Encounter for follow-up Encounter for gynecological examination (general) (routine) without abnormal findings Labial cyst Pain pelvic HISTORY PAST MEDICAL HISTORY SOCIAL HISTORY Past Medical History: Diagnosis Date Abscess of labia Bipolar disorder (HCC) BMI 28.0-28.9,adult Drug abuse, opioid type ([facility]) Encounter for follow-up Encounter for gynecological examination [...] nursing note reviewed. Exam conducted with a filler mixer present. Vitals: Estimated body mass index is 27.46 kg/m as calculated from the following: Height as of 12/09/22: 5' 5 . Weight as of this encounter: 165 lb. BP: 118/74 No LMP recorded. Patient is . ASSESSMENT & PLAN ICD-10-CM 1. Third trimester ([facility]) Z34.93 POCT urinalysis dipstick manually resulted 2. 32 weeks gestation of ([facility]) Z3A.32 3. H/O opioid abuse ([facility]) F11.11 4. History of placental abruption Z87.59 [...] Mee Pringle DO documented in this encounter [facility] 05-30-2025 History of Present illness Narrative [...] No Have you been seen here at [facility] in a previous ? No Recent ER visits or hospitalizations? No Bring blood sugar log or meter with you today? (Please bring them with you for every visit at [facility]) N/A Flu vaccine (Sep-December)? N/A Any concerns [...] it affect 1-4% of women [facility] the [facility]. I reviewed with the patient [...] intensive care unit. The overall risk of Howtwkwd-Nj-Jyrbj-Transmission (MTCT) during is approximately 4-8%. If the [...] C infection until after 18 months. The [place] [employer] and CDC recommend screening [...] and counseling, coordination of care which was [id number]. [facility] History of Present illness Narrative Reason [...] (HCC) BMI 28.0-28.9,adult Drug abuse, opioid type ([facility]) Encounter for follow-up Encounter for gynecological examination (general) (routine) without abnormal findings Labial cyst Pain pelvic HISTORY PAST MEDICAL HISTORY SOCIAL HISTORY Past Medical History: Diagnosis Date Abscess of labia Bipolar disorder (HCC) BMI 28.0-28.9,adult Drug abuse, opioid type ([facility]) Encounter for follow-up Encounter for gynecological examination [...] nursing note reviewed. Exam conducted with a filler mixer present. Vitals: Estimated body mass index is 26.46 kg/m as calculated from the following: Height as of 12/09/22: 5' 5 . Weight as of this encounter: 159 lb. BP: 110/70 No LMP recorded. Patient is . ASSESSMENT & PLAN ICD-10-CM 1. 29 weeks gestation of ([facility]) Z3A.29 POCT urinalysis dipstick manually resulted 2. Third trimester ([facility]) Z34.93 POCT urinalysis dipstick manually resulted 3. Request for sterilization Z30.2 4. H/O opioid abuse ([facility]) F11.11 5. History of placental abruption Z87.59 [...] Mee Pringle DO documented in this encounter [facility] 05-02-2025 History of Present illness Narrative Reason for Appointment: Patient ID: Camrelita Cason is a 34 y.o. female who [...] (HCC) BMI 28.0-28.9,adult Drug abuse, opioid type ([facility]) Encounter for follow-up Encounter for gynecological examination (general) (routine) without abnormal findings Labial cyst Pain pelvic HISTORY PAST MEDICAL HISTORY SOCIAL HISTORY Past Medical History: Diagnosis Date Abscess of labia Bipolar disorder (HCC) BMI 28.0-28.9,adult Drug abuse, opioid type ([facility]) Encounter for follow-up Encounter for gynecological examination [...] nursing note reviewed. Exam conducted with a filler mixer present. Vitals: Estimated body mass index is 26.26 kg/m as calculated from the following: Height as of 12/09/22: 5' 5 . Weight as of this encounter: 157 lb 12.8 oz. BP: 104/70 No LMP recorded. Patient is . ASSESSMENT & PLAN ICD-10-CM 1. Second trimester ([facility]) Z34.92 2. 27 weeks gestation of ([facility]) Z3A.27 3. Request for sterilization Z30.2 4. H/O opioid abuse ([facility]) F11.11 5. History of placental abruption Z87.59 [...] Mee Pringle DO documented in this encounter [facility] 04-18-2025 History of Present illness Narrative [...] (HCC) BMI 28.0-28.9,adult Drug abuse, opioid type ([facility]) Encounter for follow-up Encounter for gynecological examination (general) (routine) without abnormal findings Labial cyst Pain pelvic HISTORY PAST MEDICAL HISTORY SOCIAL HISTORY Past Medical History: Diagnosis Date Abscess of labia Bipolar disorder (HCC) BMI 28.0-28.9,adult Drug abuse, opioid type ([facility]) Encounter for follow-up Encounter for gynecological examination [...] nursing note reviewed. Exam conducted with a filler mixer present. Vitals: Estimated body mass index is 25.79 kg/m as calculated from the following: Height as of 12/09/22: 5' 5 . Weight as of this encounter: 155 lb. BP: 112/64 No LMP recorded. Patient is . ASSESSMENT & PLAN ICD-10-CM 1. Second trimester ([facility]) Z34.92 POCT urinalysis dipstick manually resulted 2. 25 weeks gestation of ([facility]) Z3A.25 Return OB: Patient presents [...] Mee Pringle DO documented in this encounter [facility] 04-06-2025 History of Present illness Narrative [...] (HCC) BMI 28.0-28.9,adult Drug abuse, opioid type ([facility]) Encounter for follow-up Encounter for gynecological examination [...] dipstick manually resulted , unspecified gestational age ([facility]) - Type and screen; Future - ABO/Rh; Future - CBC and differential - Hemoglobin A1c - RPR - Rubella antibody, IgG - Hepatitis B surface antigen - Hepatitis C antibody - HIV-1 and HIV-2 antibodies - Rapid drug screen, urine; Future Encounter for supervision of normal first in first trimester ([facility]) - Rapid drug screen, urine; Future Screening, , for anatomic survey ([facility]) - OB 14+ weeks anatomy scan; Future Diabetes mellitus screening - CBC; Future - Glucose tolerance, 1 hour; Future headache in second trimester ([facility]) - magnesium oxide (Mag-Ox) 400 [...] or undercooked meat, and stay away from [facility]. Patient has also been advised to [...] Olive Leon LPN documented in this encounter [facility] Healthcare Evaluation note Diagnosis Missed menses , unspecified gestational age ([facility]) Encounter for supervision of normal first in first trimester ([facility]) Screening, , for anatomic survey ([facility]) Encounter for anatomic survey Diabetes mellitus screening Screening for diabetes mellitus headache in second trimester ([facility]) [facility] Diagnosis Second trimester ([facility]) state, incidental 25 weeks gestation of ([facility]) [facility] Diagnosis Second trimester ([facility]) state, incidental 27 weeks gestation of ([facility]) Request for sterilization H/O opioid abuse ([facility]) History of placental abruption documented [facility] Diagnosis 29 weeks gestation of ([facility]) Third trimester ([facility]) state, incidental Request for sterilization H/O opioid abuse ([facility]) History of placental abruption documented [facility] Diagnosis History of placental abruption- Primary Hepatitis C virus infection without hepatic coma, unspecified chronicity documented in this encounter [facility] Diagnosis Third trimester ([facility]) state, incidental 32 weeks gestation of ([facility]) H/O opioid abuse ([facility]) History of placental abruption Diabetes mellitus screening Screening for diabetes mellitus documented [facility] Diagnosis 34 weeks gestation of ([facility]) Third trimester ([facility]) state, incidental H/O opioid abuse ([facility]) History of placental abruption Hepatitis C virus infection without hepatic coma, unspecified chronicity [facility] Diagnosis Third trimester ([facility]) state, incidental 35 weeks gestation of ([facility]) documented in this encounter [facility] HealthcareInstructionsNot on filedocumented in this encounterProMedims Health SystemInstructionsNot on filedocumented in this encounterProOhio[facility] SystemInstructionsNot on filedocumented in this encounterProOhiohealth [facility] Summary Purpose Family History No Family History Records FoundNo Family History Records FoundNo Family History Records FoundNo Family History Records FoundNo Family History Records FoundNo Family History Records Found Advance Directives No Advanced Directives Records FoundDocuments on File Type Date Recorded Patient Line Helper Expl anation Advance Directives and Living Will Power of Ductfixing Plumber Documents on File Type Date Recorded Patient Line Helper Expl anation ACP-Advance Directive ACP-Power of Ductfixing Plumber Additional Source Comments INFORMATION SOURCE (unrecogn ized section and content) DATE CREATED AUTHOR 10/10/[address] [facility] DATE CREATED AUTHOR AUTHOR'S ORGANIZ ATION 12/06/2020 [facility] DATE CREATED AUTHOR AUTHOR'S ORGANIZ ATION 03/29/2021 [facility] DATE CREATED AUTHOR AUTHOR'S ORGANIZ ATION 12/10/20[facility] DATE CREATED AUTHOR AUTHOR'S ORGANIZ ATION 06/01/2025 [facility] DATE CREATED AUTHOR AUTHOR'S ORGANIZ ATION 06/29/2025 [facility] EPIC Reason for Visit (unrecogniz ed section and content) Reason Comments Amenorrhea Reason Comments Routine Visit Reason Comments Hepatitis C Current Everyday Smoker Care Teams (unrecognized sec tion and content) [employer]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 [facility] [employer] [facility]. provides no warranty or guarantee of the accuracy or completeness of information in this document.
[2025-07-01 06:53] VITALS: BP 115/67; PULSE 88; TEMP 36.3
[2025-07-01 07:36] LABS: Glucose Urine UA NEGATIVE (NEGATIVE)
[2025-07-01 07:47] LABS: Cast Seen? NONE SEEN #/LPF (NONE SEEN); Crystals Seen? None Seen #/HPF (None Seen); Urine Culture Indicated YES-LC
--- NOTE | 2025-07-01 08:03 | US_ITS ---
[address] [address] Patient Name: ALEXANDER CASON MRN: [id number] date: 1990 Sex: F Assigned Patient Location: [facility] Current Patient Location: [facility] Accession/Order Number: [id number] Exam Date: 07/01/2025 08:59 Report Date: 07/01/2025 09:41 At the request of: MEE BOCANEGRA DO Procedure: US OB BPP w non-stress US OB placenta, US OB BPP w non-stress 07/01/2025 9:26 AM SIGNS AND SYMPTOMS: ^decreased movement PROTOCOL: Transabdominal sonographic imaging of the gravid uterus COMPARISON: None FINDINGS: heart rate: 144 bpm Amniotic fluid index: 21.86 cm. The deepest vertical pocket is 10.21 cm. Estimated gestational age: 36 weeks and 1 day. Biophysical profile: breathing movements: 2/2 Gross body movements: 2/2 breathing movements: 2/2 Amniotic fluid volume: 2/2 The fetus is in cephalic presentation. The placenta is posteriorly located. The placenta is homogeneous. No evidence of placenta previa. No evidence of hemorrhage. US/US OB BPP w non-stress IMPRESSION: Biophysical profile: 06/08 The placenta is homogeneous and appears within normal limits. Impression dictated by: Anton Frazier M.D. 07/01/2025 9:41 AM Dictation Location: [place] [address] Electronically authenticated by: [id number] Y Date: 07/01/2025 09:41
--- NOTE | 2025-07-01 08:04 | US_ITS ---
[address] [address] Patient Name: ALEXANDER CASON MRN: [id number] date: 1990 Sex: F Assigned Patient Location: [facility] Current Patient Location: [facility] Accession/Order Number: [id number] Exam Date: 07/01/2025 08:59 Report Date: 07/01/2025 09:41 At the request of: MEE BOCANEGRA DO Procedure: US OB BPP w non-stress US OB placenta, US OB BPP w non-stress 07/01/2025 9:26 AM SIGNS AND SYMPTOMS: ^decreased movement PROTOCOL: Transabdominal sonographic imaging of the gravid uterus COMPARISON: None FINDINGS: heart rate: 144 bpm Amniotic fluid index: 21.86 cm. The deepest vertical pocket is 10.21 cm. Estimated gestational age: 36 weeks and 1 day. Biophysical profile: breathing movements: 2/2 Gross body movements: 2/2 breathing movements: 2/2 Amniotic fluid volume: 2/2 The fetus is in cephalic presentation. The placenta is posteriorly located. The placenta is homogeneous. No evidence of placenta previa. No evidence of hemorrhage. US/US OB placenta IMPRESSION: Biophysical profile: 06/08 The placenta is homogeneous and appears within normal limits. Impression dictated by: Anton Frazier M.D. 07/01/2025 9:41 AM Dictation Location: [place] [address] Electronically authenticated by: [id number] Y Date: 07/01/2025 09:41
[2025-07-01] MEDS: ACETAMINOPHEN 500 MG TABLET 1000 MG PO (08:35)
== END 2025-07-01 09:50 | disposition home or self-care (01) ==
LOC: FBC 06:36
PROVIDERS: Admitting Provider Obstetrics & Gynecology; PCP Nurse Practitioner Family; Visit Provider Obstetrics & Gynecology
DX: O36.8130 Decreased fetal movements, third trimester, not applicable or unspecified (principal); Z3A.36 36 weeks gestation of pregnancy
CPT/HCPCS: 59025; 76815; 76818; 81001; 87086; G0378; G0379

== ENCOUNTER 2025-07-03 09:58 | Outpatient (OUT) | payer OTHER, SELFPAY ==
--- OUTSIDE RECORDS SUMMARY | 2025-06-20 14:30 | XMS_ITS | Encounter Summary ---
Author Organization [facility] Address [address] [place] [address] Care Team Providers Care Electric Repair Supervisor Name Role Phone Unavailable Primary Care Provider Unavailabl e Reason for Visit * Reason Comments Routine Visit Encounter Details Date Type Department Care Team (Late st Contact Info) Description 06/20/2025 2:30 PM EDT Routine [facility] [address] [place] [address] Tony Pringle DO [address] [place], [place] [address] 34 weeks gestation of ([facility]); Third trimester ([facility]); H/O opioid abuse ([facility]); History of placental abruption; Hepatitis C virus infection without hepatic coma, [...] Sign Reading Time Taken Comments Blood Pressure 120/80 06/20/2025 2:32 PM EDT Pulse - - Temperature - - Respiratory Rate - - Oxygen Saturation - - Inhaled Oxygen Concentration - - Weight 76.6 kg (168 lb 12.8 oz) 06/20/2025 2:32 PM EDT Height - - Body Mass Index 28.09 12/09/2022 12:00 PM EST documented in this encounter Progress Notes * Raine Aguilar, MAXILLOFACIAL SURGEON - 06/20/2025 2:30 PM EDT Reason for Appointment: Patient ID: Carmelita Yanez is a 34 y.o. female who presents for Routine Visit Patient presents today for Return OB appointment. MEDICATIONS Current Outpatient Medications Medication Instructions QUEtiapine (SEROQUEL) 50 mg, Nightly Suboxone 8-2 MG SL film 1 Film, Daily ALLERGIES Allergies Allergen Reactions Penicillin G Other Reaction(s): childhood/unknown, Unknown Penicillins PROBLEMS Active Ambulatory Problems Diagnosis Date Noted No Active Ambulatory Problems Resolved Ambulatory Problems Diagnosis Date Noted No Resolved Ambulatory Problems Past Medical History: Diagnosis Date Abscess of labia Bipolar disorder (HCC) BMI 28.0-28.9,adult Drug abuse, opioid type ([facility]) Encounter for follow-up Encounter for gynecological examination (general) (routine) without abnormal findings Hepatitis C Labial cyst Pain pelvic HISTORY PAST MEDICAL HISTORY SOCIAL HISTORY Past Medical History: Diagnosis Date Abscess of labia Bipolar disorder (HCC) BMI 28.0-28.9,adult Drug abuse, opioid type ([facility]) Encounter for follow-up Encounter for gynecological examination (general) (routine) without abnormal findings Hepatitis C Labial cyst Pain pelvic Social History Tobacco [...] nursing note reviewed. Exam conducted with a websphere developer present. Vitals: Estimated body mass index is 28.09 kg/m?? as calculated from the following: Height as of 12/09/22: 5' 5 . Weight as of this encounter: 168 lb 12.8 oz. BP: 120/80 No LMP recorded. Patient is . ASSESSMENT & PLAN ICD-10-CM 1. 34 weeks gestation of ([facility]) Z3A.34 POCT urinalysis dipstick manually resulted 2. Third trimester ([facility]) Z34.93 POCT urinalysis dipstick manually resulted 3. H/O opioid abuse ([facility]) F11.11 4. History of placental abruption Z87.59 5. Hepatitis C virus infection without hepatic coma, unspecified chronicity B19.20 Return OB: Patient presents today for a routine obstetrics appointment. Patient is currently 34w4d . Patient states she is doing well [...] Care Team (Late st Contact Info) Description 07/04/2025 10:50 AM EDT Routine [facility] [address] [place] [address] [place] [phone] Tony Pringle, DO [address] [place] [address] [place] [address] documented as of this encounter Procedures Procedure Name Priority Date/Time Associated Diagnosis Comments POCT URINALYSIS DIPSTICK Routine 06/20/2025 2:38 PM EDT 34 weeks gestation of ([facility]) Third trimester ([facility]) documented in this encounter Results * (ABNORMAL) POCT urinalysis dipstick manually resulted (06/20/2025 2:38 PM EDT) Color, UA Yellow Clarity, UA [...] 1.0 0.2 - 12 mg/dL Leukocytes, UA Positive Negative - 500+++ Camille/mcL Nitrite, UA Negative Negative - Positive Urine 06/20/2025 2:38 PM EDT Tony Pringle DO POINT OF CARE TEST ENTER/EDIT OR DERABLES Final Result documented in this encounter Visit Diagnoses Diagnosis 34 weeks gestation of ([facility]) Third trimester ([facility]) state, incidental H/O opioid abuse ([facility]) History of placental abruption Hepatitis C virus infection without hepatic coma, unspecified chronicity documented in this encounter
--- OUTSIDE RECORDS SUMMARY | 2025-06-27 09:50 | XMS_ITS | Encounter Summary ---
Author Organization [facility] Address [address] [place] [address] Care Team Providers Care Senior Wind Turbine Technician Name Role Phone Unavailable Primary Care Provider Unavailabl e Reason for Visit * Reason Comments Routine Visit Encounter Details Date Type Department Care Team (Late st Contact Info) Description 06/27/2025 9:50 AM EDT Routine [facility] [address] [place] [address] [place] PA [address] [place], [place] [address] Third trimester ([facility]); 35 weeks gestation of ([facility]) Social History Tobacco Use Types Packs/Day Years [...] Sign Reading Time Taken Comments Blood Pressure 120/76 06/27/2025 10:02 AM EDT Pulse - - Temperature - - Respiratory Rate - - Oxygen Saturation - - Inhaled Oxygen Concentration - - Weight 76.4 kg (168 lb 8 oz) 06/27/2025 10:02 AM EDT Height - - Body Mass Index 28.04 12/09/2022 12:00 PM EST documented in this encounter Progress Notes * CRISTHIAN Sanders - 06/27/2025 9:50 AM EDT Reason for Appointment: Patient ID: [...] 28.0-28.9,adult Drug abuse, opioid type ([facility] Encounter for follow-up Encounter for gynecological examination (general) (routine) without abnormal findings Hepatitis C Labial cyst Pain pelvic HISTORY PAST MEDICAL HISTORY SOCIAL HISTORY Past Medical History: Diagnosis Date Abscess of labia Bipolar disorder (HCC) BMI 28.0-28.9,adult Drug abuse, opioid type ([facility]) Encounter for follow-up Encounter for gynecological examination [...] Exam Constitutional: Appearance: Normal appearance. She is normal weight. HENT: Head: Normocephalic. Cardiovascular: Rate and Rhythm: Normal rate. Pulses: Normal pulses. Pulmonary: Effort: Pulmonary effort is normal. Breath sounds: Normal breath sounds. Abdominal: Palpations: Abdomen is soft. Musculoskeletal: General: Normal range of motion. Neurological: General: No focal deficit present. Mental Status: She is alert and oriented to person, place, and time. Psychiatric: Mood and Affect: Mood normal. Behavior: Behavior normal. Thought Content: Thought content normal. Judgment: Judgment normal. Vitals and nursing note reviewed. Vitals: Estimated body mass index is 28.04 kg/m?? as calculated from the following: Height as of 12/09/22: 5' 5 . Weight as of this encounter: 168 lb 8 oz. BP: 120/76 No LMP recorded. Patient is . ASSESSMENT & PLAN ICD-10-CM 1. Third trimester ([facility]) Z34.93 POCT urinalysis dipstick manually resulted CULTURE, GROUP B STREP WITH SUSCEPTIBLITY CULTURE, GROUP B STREP WITH SUSCEPTIBLITY CANCELED: POCT urinalysis dipstick manually resulted CANCELED: CULTURE, GROUP B STREP WITH SUSCEPTIBLITY CANCELED: CULTURE, GROUP B STREP WITH SUSCEPTIBLITY 2. 35 weeks gestation of ([facility]) Z3A.35 Return OB: Patient is doing well but has complaints of being tired and having maternal discomfort due to . Patient verbalized frequent movement and was instructed to perform kick counts three times per day. labor precautions were given, LARC consent was signed/declined, and GBS was obtained. Orders Placed This Encounter Procedures CULTURE, GROUP B STREP WITH SUSCEPTIBLITY POCT urinalysis dipstick manually resulted Follow Up: Patient is to return to office in 1 week for routine OB appointment Orders Placed This Encounter Procedures CULTURE, GROUP B STREP WITH SUSCEPTIBLITY POCT urinalysis dipstick manually resulted Follow Up: Patient is to return to office in 1 week for routine OB appointment. Documented by CRISTHIAN Sanders on behalf of: CRISTHIAN Sanders documented in this encounter Plan of Treatment Upcoming Encounters Date Type Department Care Team (Late st Contact Info) Description 07/04/2025 10:50 AM EDT Routine [facility] [address] [address] Tony Pringle, [address] [place] [address] Scheduled Orders Name Type Priority Associated Diagnoses Orde r Schedule CULTURE, GROUP B STREP WITH SUSCEPTIBLITY Lab Routine Third trimester ([facility]) Expected: 06/27/2025, Expires: 06/27/2026 documented as of this encounter Procedures Procedure Name Priority Date/Time Associated Diagnosis Comments POCT URINALYSIS DIPSTICK Routine 06/27/2025 10:05 AM EDT Third trimester ([facility]) documented in this encounter Results * (ABNORMAL) POCT urinalysis dipstick manually resulted (06/27/2025 10:05 AM EDT) Color, UA Yellow Clarity, UA Clear Glucose, UA Negative Negative - 2000(110) ++++ mg/dL Bilirubin, UA Negative Negative - 4(70) +++ mg/dL Ketones, UA Negative Negative - 160(16) ++++ mg/dL Spec Grav, UA 1,005.000 1 - 1.03 Blood, UA Negative Negative - 50 Amador/mcL pH, UA 6.5 5 - 9 Protein, UA Negative Negative - 2000(20) ++++ mg/dL Urobilinogen, UA 0.2 0.2 - 12 mg/dL Leukocytes, UA Positive Negative - 500+++ Camille/mcL Comment:Trace Nitrite, UA Negative Negative - Positive Urine 06/27/2025 10:0 5 AM EDT Paradise MORROW POINT OF CARE TEST ENTER/EDIT OR DERABLES Final Result documented in this encounter Visit Diagnoses Diagnosis Third trimester ([facility]) state, incidental 35 weeks gestation of ([facility]) documented in this encounter
--- OUTSIDE RECORDS SUMMARY | 2025-07-03 10:01 | XMS_ITS | Encounter Summary ---
Author Organization [facility] Address [address] [place] [address] Care Team Providers Care Flag Signalman Name Role Phone Unavailable Primary Care Provider Unavailabl e Encounter Details Date Type Department Care Team (Late Contact Info) Description 05/30/2025 External Result Encounter [facility] [address] [place] [address] Mee Pringle [facility] Khurram [place], [facility]11 Social History Tobacco Use Types Packs/Day Years [...] Department Care Team (Late Contact Info) Description 07/04/2025 10:50 AM EDT Routine [facility] [address] [place] [address] Mee Pringle DO [facility] [place] [address] documented as of this encounter Procedures Procedure Name Priority Date/Time Associated Diagnosis Comments US OB 14+ WEEKS ANATOMY SCAN 05/30/2025 12:58 PM EDT documented in this encounter Results * US OB 14+ weeks anatomy scan (05/30/2025 12:58 PM EDT) Anatomical Region Laterality Modality Body Ultrasound 05/30/2025 12:5 8 PM EDT Narrative 05/30/2025 12:58 PM EDT THIS EXAM WAS PERFORMED AT [facility] NAME: YOAV MUNOZ : 1990 SEX: F Accession Number: [id number] ORDERING PHYSICIAN: MEE PRINGLE REFERRING PHYSICIAN: MEE PRINGLE Coding ----- --------- Procedures 51052: Ultrasound, uterus, real time with image documentation, and maternal evaluation plus detailed anatomic examination, transabdominal approach;single or first gestation Indication ----- --------- Screening for Anatomic Survey, Hepatitis C in , Malformation of placenta- complete circumvallate,History of prior with delivery- placental abruption, Previous History ----- --------- OB History 4. Para 3 [id number] Maternal Assessment ----- --------- Physical Exam Initial [...] EFW (oz) 14 oz EFW by: Hadlock ([id number]) Extended Tibia 48.3 mm 29w 1d 6% Mara Budget Specialist 2.3 mm CM 9.6 mm 95% Nicolaides [...] view. RVOT view. LVOT view. 3-vessel view. 1-cpwkbu-okozais view. Situs. Bicaval view. Interventricular septum. Great [...] noted. Recommendations ----- --------- Please see [facility] documentation from today. The patient is scheduled in four week(s) to complete anatomic survey. Subsequent follow up or other follow up as clinically determined by primary OB provider unless otherwise specified by [facility]. Results forwarded to ordering provider so they can follow up with the patient as necessary. Procedure Note Radiology, Radiologist, - 05/30/2025 THIS EXAM WAS PERFORMED AT [facility] NAME: YOAV MUNOZ : 1990 SEX: F Accession Number: [id number] ORDERING PHYSICIAN: MEE PRINGLE REFERRING PHYSICIAN: MEE PRINGLE Coding ----- --------- Procedures [id number]: Ultrasound, uterus, real time with imagedocumentation, and maternal evaluation plus detailed anatomic examination, transabdominalapproach;single or first gestation Indication ----- --------- Screening for Anatomic Survey, Hepatitis C in , Malformation ofplacenta- complete circumvallate,History of prior with delivery- placental abruption, Previous History ----- --------- OB History 4. Para 3 [id number] Maternal Assessment ----- --------- Physical Exam Initial [...] EFW (oz) 14 oz EFW by: Hadlock ([id number]) Extended Tibia 48.3 mm 29w 1d 6% Mara Budget Specialist 2.3 mm CM 9.6 mm 95% Nicolaides [...] 4-chamber view. RVOT view. LVOT view. 3-vessel view.5-cbjrnz-cwxiplo view. Situs. Bicaval view. Interventricular septum. Great [...] consistent with 31w 4d with an GIAN of09/. Amniotic fluid MVP measures 9.5 cm. Mild Polyhydramnios. Complete circumvallate placenta noted. Recommendations ----- --------- Please see [facility] documentation from today. The patient is scheduled in four week(s) to complete anatomic survey. Subsequent follow up or other follow up as clinically determined byprimary OB provider unless otherwise specified by [facility]. Results forwarded to ordering provider so they can follow up with thepatient as necessary. us Mee SONGG OB US PROCEDURES Final Resul t documented in this encounter Visit Diagnoses Not on filedocumented in this encounter
--- OUTSIDE RECORDS SUMMARY | 2025-07-03 10:01 | XMS_ITS | Encounter Summary ---
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 [place] [address] Tony Pringle DO [address] [place] [address] documented as of this encounter Visit Diagnoses Not on filedocumented in this encounter
--- OUTSIDE RECORDS SUMMARY | 2025-07-03 10:01 | XMS_ITS | Clinical Summary ---
Author Organization [facility] Address [address] [place] [address] Care Team Providers Care Tug Boat Engineer Name Role Phone Unavailable Primary Care Provider Unavailabl e Allergies Active Allergy Reactions Criticality Noted Date Comments Penicillin G 01/25/2025 Other Reaction(s): childhood/unknown, Unknown Penicillins 06/24/2020 Medications Suboxone 8-[address] 1 Film under the tongue Daily 5 Active QUEtiapine (SEROquel) 50 MG tablet Take 50 mg by mouth at bedtime 5 Active gabapentin (Neurontin) 100 MG capsule as directed for 9 days 025 Discontinued magnesium oxide (Mag-Ox) 400 MG tabletIndicati ons: headache in second trimester ([facility]) Take 1 tablet (400 mg) by mouth Daily 30 tablet 11 5 025 Discontinued Encounters Date Type Department Care Team Description 07/01/2025 Clinisync Result Encounter [facility]OM[facility] External Department Unsolicited Mee Pringle, 07/01/2025 Clinisync Result Encounter NOMS External Department Unsolicited Mee Pringle, DO 07/01/2025 Clinisync Result Encounter NOMS External Department Unsolicited Mee Pringle, DO 06/27/2025 9:50 AM EDT Routine [facility] [address] [place] [address] Paradise Olvera PA Third trimester ([facility]); 35 weeks gestation of ([facility]) 06/27/2025 Bamboo flowsheet [facility] [address] [place] [address] Paradise Olvera PA 06/20/2025 2:30 PM [place] [address] Mee Pringle, 34 weeks gestation of ([facility]); Third trimester ([facility]); H/O opioid abuse ([facility]); History of placental abruption; Hepatitis C virus infection without hepatic coma, unspecified chronicity 06/20/2025 Bamboo flowsheet [facility] [place] [place] [address] Mee Pringle, 06/18/2025 Abstract [facility] [address] [place] [address] Paradise Bangura LPN 06/15/2025 Patient Outreach [facility] [place] [address] [place] [address] Paradise Bangura LPN 06/14/2025 Clinisync Result Encounter NOMS External Department Unsolicited Mee Pringle, 06/11/2025 Clinisync Result Encounter NOMS External Department Unsolicited Mee Pringle, DO 06/08/2025 Clinisync Result Encounter NOMS External Department Unsolicited Mee Pringle, 06/07/2025 9:40 [place] [address] Mee Pringle, Third trimester ([facility]); 32 weeks gestation of ([facility]); H/O opioid abuse ([facility]); History of placental abruption; Diabetes mellitus screening 06/07/2025 [place] [address] Mee Pringle, 06/05/2025 Clinisync Result Encounter NOMS External Department Unsolicited Mee Pringle, DO 05/30/2025 Abstract [facility] [address] [place] [address] Mee Pringle, DO 05/30/2025 External Result Encounter [facility] [address] [place] [address] Mee Pringle, DO 05/30/2025 Telephone [facility] [place] [address] Mee Pringle, DO 05/29/2025 Telephone [facility] [address] [place] [address] [place] [address] Mee Pringle, DO 05/28/2025 Abstract [facility] [address] [place] [address] [place] [address] Mee Pringle, DO 05/21/2025 Clinisync Result Encounter NOMS External Department Unsolicited Mee Pringle, DO 05/16/2025 11:00 AM EDT Routine [facility] [place] [address] Mee Pringle, DO 29 weeks gestation of ([facility]); Third trimester ([facility]); Request for sterilization; H/O opioid abuse ([facility]); History of placental abruption; Abnormal ultrasonic finding on screening of mother, antepartum 05/16/2025 Bamboo flowsheet [facility] [place] [address] Mee Pringle, DO 05/02/2025 3:20 PM EDT Routine [facility] [place] [address] Mee Pringle, DO Second trimester ([facility]); 27 weeks gestation of ([facility]); Request for sterilization; H/O opioid abuse ([facility]); History of placental abruption 05/02/2025 Bamboo flowsheet [facility] [address] [place] [address] Mee Pringle DO 04/18/2025 1:30 PM EDT Routine [facility] [address] [place] [address] Mee Pringle, Second trimester ([facility]); 25 weeks gestation of ([facility]); Abnormal ultrasonic finding on screening of mother, antepartum 04/18/2025 Bamboo flowsheet [facility] [address] [facility] [facility] [place] [address] Mee Pringle DO 04/09/2025 Clinisync Result Encounter NOMS External Department Unsolicited Paradise Olvera PA 04/09/2025 Clinisync Result Encounter NOMS External Department Unsolicited Paradise Olvera PA 04/06/2025 11:00 AM EDT Initial [facility] [address] [place] [address] GA: 23w6d from Last 3 Months Family [...] 8 oz) 06/27/2025 10:02 AM EDT Height 165.1 cm (5' 5 ) 12/09/2022 12:00 PM EST Body Mass Index 28.04 12/09/2022 12:00 PM EST Plan of Treatment Upcoming Encounters Date Type Department Care Team (Late st Contact Info) Description 07/04/2025 10:50 AM EDT Routine [facility] [address] [place] [address] Mee Pringle DO [address] [place] [address] Health Maintenance Due Date Last Done Comments Pap Smear 2013 Cervical Cancer Screening 2022 HPV/Cotest 2022 Influenza Vaccine (#1) 2025 Procedures Procedure Name Priority Date/Time Associated Diagnosis Comments US OB BPP W NON-STRESS 07/01/2025 9:41 AM EDT US OB PLACENTA 07/01/2025 9:41 AM EDT TB[facility] URINE MICROSCOPIC ONLY Routine 07/01/2025 6:40 AM EDT TBH UA (CLEAN/CATCH) RENAL TECHNICIAN/MICRO IF IND. Routine 07/01/2025 6:40 AM EDT POCT URINALYSIS DIPSTICK Routine 06/27/2025 10:05 AM EDT Third trimester ([facility]) POCT URINALYSIS DIPSTICK Routine 06/20/2025 2:38 PM EDT 34 weeks gestation of ([facility]) Third trimester ([facility]) TB[facility] URINE MICROSCOPIC ONLY Routine 06/14/2025 11:35 PM EDT TBH UA (CLEAN/CATCH) RENAL TECHNICIAN/MICRO IF IND. Routine 06/14/2025 11:35 PM EDT US OB BPP W NON-STRESS 06/11/2025 11:45 AM EDT CULTURE, URINE, ROUTINE Routine 06/11/2025 8:47 AM EDT Missed menses MLR HEMOGLOBIN A1C Routine 06/08/2025 11 :34 AM EDT POCT URINALYSIS DIPSTICK Routine 06/07/2025 10:26 AM EDT Third trimester ([facility]) US OB BPP W NON-STRESS 06/05/2025 12:03 [...] 11:03 AM EDT 29 weeks gestation of ([facility]) Third trimester ([facility]) POCT URINALYSIS DIPSTICK Routine 04/18/2025 1:44 PM EDT Second trimester ([facility]) US OB ANATOMY 04/09/2025 1:01 PM EDT US OB CERVICAL LENGTH 04/09/2025 1:01 PM EDT POCT URINALYSIS DIPSTICK Routine 04/06/2025 11:13 AM EDT Missed menses POCT , URINE Routine 04/06/2025 11:13 AM EDT Missed menses from Last 3 Months Results * US OB PLACENTA (07/01/2025 9:41 AM EDT) Anatomical Region Laterality Modality Other 07/01/2025 9:41 AM EDT Narrative 07/01/2025 9:44 [place] [address] Ultrasound Report Signed Patient: CARMELITA CASON MR#: [id number] : 1990 Acct:[id number] Age/Sex: 34 / F ADM Date: Loc: [facility] 250- Attending Dr: Mee Pringle D.O. Ordering Physician: Mee Pringle D.O. Date of Service: 07/01/25 Procedure(s): US OB placenta Accession Number(s): [id number] cc: ROMEO GAR ; Mee Pringle D.O. [address] [address] Patient Name: CARMELITA CASON MRN: [id number] date: 1990 Sex: F Assigned Patient Location: [facility] Current Patient Location: [facility] Accession/Order Number: [id number] Exam Date: 07/01/2025 08:59 Report Date: 07/01/2025 09:41 At the request of: MEE PRINGLE DO Procedure: US OB BPP w non-stress US OB placenta, US OB BPP w non-stress 07/01/2025 9:26 AM SIGNS AND SYMPTOMS: decreased movement PROTOCOL: Transabdominal sonographic imaging of the gravid uterus COMPARISON: None FINDINGS: heart rate: 144 bpm Amniotic fluid index: 21.86 cm. The deepest vertical pocket is 10.21 cm. Estimated gestational age: 36 weeks and 1 day. Biophysical profile: breathing movements: 2/2 Gross body movements: 2/2 breathing movements: 2/2 Amniotic fluid volume: 2/2 The fetus is in cephalic presentation. The placenta is posteriorly located. The placenta is homogeneous. No evidence of placenta previa. No evidence of hemorrhage. US/US OB placenta IMPRESSION: Biophysical profile: 06/08 The placenta is homogeneous and appears within normal limits. Impression dictated by: Anton Frazier M.D. 07/01/2025 9:41 AM Dictation Location: [place] [address] Electronically authenticated by: [id number] Y Date: 07/01/2025 09:41 Dictated By: Anton Frazier M.D. Signed By: 07/01/25 0944 DD/ TD/TT: Athletics Teacher: Procedure Note Radiology, Radiologist, - 07/01/2025 [place] [address] Ultrasound Report Signed Patient: CARMELITA CASON NMR#: [id number] : 1990Acct:[id number] Age/Sex: 34 / FADM Date: Loc: [facility] 250-[address]: Mee Pringle D.O. Ordering Physician: Mee Pringle D.O. Date of Service: 07/01/25 Procedure(s): US OB placenta Accession Number(s): [id number] cc: ROMEO GAR ; Mee Pringle D.O. [address] [address] Patient Name: CARMELITA CASON MRN: [facility]:[id number] date: 1990 Sex: F Assigned Patient Location: [facility] Current Patient Location: [facility] Accession/Order Number: [id number] Exam Date: 07/01/2025 08:59 Report Date: 07/01/2025 09:41 At the request of: MEE PRINGLE DO Procedure: US OB BPP w non-stress US OB placenta, US OB BPP w non-stress 07/01/2025 9:26 AM SIGNS AND SYMPTOMS: decreased movement PROTOCOL: Transabdominal sonographic imaging of the gravid uterus COMPARISON: None FINDINGS: heart rate: 144 bpm Amniotic fluid index: 21.86 cm. The deepest vertical pocket is 10.21 cm. Estimated gestational age: 36 weeks and 1 day. Biophysical profile: breathing movements: 2/2 Gross body movements: 2/2 breathing movements: 2/2 Amniotic fluid volume: 2/2 The fetus is in cephalic presentation. The placenta is posteriorlylocated. The placenta is homogeneous. No evidence of placenta previa. No evidenceof hemorrhage. US/US OB placenta IMPRESSION: Biophysical profile: 06/08 The placenta is homogeneous and appears within normal limits. Impression dictated by: Anton Frazier M.D. 07/01/2025 9:41 AM Dictation Location: [place] [address] Electronically authenticated by: [id number] Y Date: 9:41 Dictated By: Anton Frazier M.D. Signed By:07/01/2544 DD/ 0 TD/TT: Athletics Teacher: us Mee Pringle DO CLINISYNC IMAGING Final Result * US OB BPP W NON-STRESS (07/01/2025 9:41 AM EDT) Only the most recent of3 resultswithin the time period is included. Anatomical Region Laterality Modality Other 07/01/2025 9:41 AM EDT Narrative 07/01/2025 9:44 [place] [address] Ultrasound Report Signed Patient: CARMELITA CASON MR#: [id number] : 1990 Acct:[id number] Age/Sex: 34 / F ADM Date: Loc: [facility] 250-[address]: Mee Pringle D.O. Ordering Physician: Mee Pringle D.O. Date of Service: 07/01/25 Procedure(s): US OB BPP w non-stress Accession Number(s): [id number] cc: ROMEO GAR ; Mee Pringle D.O. [place] [address] Patient Name: CARMELITA CASON MRN: [id number] date: 1990 Sex: F Assigned Patient Location: [facility] Current Patient Location: [facility] Accession/Order Number: [id number] Exam Date: 07/01/2025 08:59 Report Date: 07/01/2025 09:41 At the request of: MEE PRINGLE DO Procedure: US OB BPP w non-stress US OB placenta, US OB BPP w non-stress 07/01/2025 9:26 AM SIGNS AND SYMPTOMS: decreased movement PROTOCOL: Transabdominal sonographic imaging of the gravid uterus COMPARISON: None FINDINGS: heart rate: 144 bpm Amniotic fluid index: 21.86 cm. The deepest vertical pocket is 10.21 cm. Estimated gestational age: 36 weeks and 1 day. Biophysical profile: breathing movements: 2/2 Gross body movements: 2/2 breathing movements: 2/2 Amniotic fluid volume: 2/2 The fetus is in cephalic presentation. The placenta is posteriorly located. The placenta is homogeneous. No evidence of placenta previa. No evidence of hemorrhage. US/US OB BPP w non-stress IMPRESSION: Biophysical profile: 06/08 The placenta is homogeneous and appears within normal limits. Impression dictated by: Anton Frazier M.D. 07/01/2025 9:41 AM Dictation Location: [place] [address] Electronically authenticated by: [id number] Y Date: 07/01/2025 09:41 Dictated By: Anton Frazier M.D. Signed By: 07/01/2544 DD/ 0 TD/TT: Athletics Teacher: Procedure Note Radiology, Radiologist, - 07/01/2025 [place] [address] Ultrasound Report Signed Patient: CARMELITA CASON NMR#: [id number] : 1990Acct:[id number] Age/Sex: 34 / FADM Date: Loc: [facility] 250-[address]: Mee Pringle D.O. Ordering Physician: Mee Pringle D.O. Date of Service: 07/01/25 Procedure(s): US OB BPP w non-stress Accession Number(s): [id number] cc: ROMEO GAR ; Mee Pringle D.O. The [place] [address] Patient Name: CARMELITA CASON MRN: [id number] date: 1990 Sex: F Assigned Patient Location: [facility] Current Patient Location: [facility] Accession/Order Number: [id number] Exam Date: 07/01/2025 08:59 Report Date: 07/01/2025 09:41 At the request of: MEE PRINGLE DO Procedure: US OB BPP w non-stress US OB placenta, US OB BPP w non-stress 07/01/2025 9:26 AM SIGNS AND SYMPTOMS: decreased movement PROTOCOL: Transabdominal sonographic imaging of the gravid uterus COMPARISON: None FINDINGS: heart rate: 144 bpm Amniotic fluid index: 21.86 cm. The deepest vertical pocket is 10.21 cm. Estimated gestational age: 36 weeks and 1 day. Biophysical profile: breathing movements: 2/2 Gross body movements: 2/2 breathing movements: 2/2 Amniotic fluid volume: 2/2 The fetus is in cephalic presentation. The placenta is posteriorlylocated. The placenta is homogeneous. No evidence of placenta previa. No evidenceof hemorrhage. US/US OB BPP w non-stress IMPRESSION: Biophysical profile: 06/08 The placenta is homogeneous and appears within normal limits. Impression dictated by: Anton Frazier M.D. 07/01/2025 9:41 AM Dictation Location: [place] [address] Electronically authenticated by: [id number] Y Date: 9:41 Dictated By: Anton Frazier M.D. Signed By:07/01/2544 DD/ 0 TD/TT: Athletics Teacher: Mee Yary DO CLIN[facility] IMAGING Final Result * (ABNORMAL) TBH URINE MICROSCOPIC ONLY (07/01/2025 6:40 AM EDT) Only the most recent of2 resultswithin the time period is included. TBH WBC 2-5(A) NONE SEEN #/HPF TBH TBH RBC 0-2 0 - 2 #/HPF TBH BACTERIA URINE LARGE(A) NONE SEEN #/HPF TBH MUCUS URINE NONE SEEN NONE SEEN TBH SQUAMOUS EPITHELIAL CELL URINE MANY(A) NONE/RARE #/LPF TBH CRYSTALS SEEN? None Seen None Seen #/HPF TBH CAST SEEN? NONE SEEN NONE SEEN #/LPF TBH URINE CULTURE INDICATED YES-LC [facility] 07/01/2025 6:40 AM EDT 07/01/2025 7:29 AM EDT Narrative CLINISYNC - 07/01/2025 7:47 AM EDT Mee Yary DO CLINISYNC Final Result CLINISYNC [facility] * (ABNORMAL) TBH UA (CLEAN/CATCH) RENAL TECHNICIAN/MICRO IF IND. (07/01/2025 6:40 AM EDT) Only the most recent of2 resultswithin the time period is included. COLOR URINE LT. YELLOW YELLOW TBH CLARITY URINE CLEAR CLEAR TBH SPECIFIC GRAVITY URINE 1.015 1.005 - 1.025 TBH PH URINE 6.5 5.0 - 9.0 TBH PROTEIN URINE NEGATIVE NEG/TRACE mg/dL TBH GLUCOSE URINE UA NEGATIVE NEGATIVE mg/dL TBH BILIRUBIN URINE NEGATIVE NEGATIVE TBH KETONES URINE NEGATIVE NEGATIVE mg/dL TBH BLOOD URINE NEGATIVE NEGATIVE TBH NITRITE URINE NEGATIVE NEGATIVE TBH UROBILINOGEN URINE 0.2 0.2 - 1.0 EU/dL TBH LEUKOCYTE ESTERASE URINE MODERATE(A) NEGATIVE TBH URINE MICROSCOPIC INDICATED YES [facility]H 07/01/2025 6:40 AM EDT 07/01/2025 7:29 AM EDT Narrative CLINISYNC - 07/01/2025 7:47 AM EDT Mee Pringle DO CLINISYNC Final Result [facility] * (ABNORMAL) POCT urinalysis dipstick manually resulted (06/27/2025 10:05 AM EDT) Only the most recent of6 resultswithin the time period is included. Color, [...] TEST ENTER/EDIT OR DERABLES Final Result * Urine culture (06/11/2025 8:47 AM EDT) Urine Urine specimen obtained by clean catch procedure / Unknown Mee Pringle DO LAB MICROBIOLOGY - GENERAL ORDER FAYE Final Result EXTERNAL LAB * MLR HEMOGLOBIN A1C (06/08/2025 11:34 AM EDT) Only the most recent of2 resultswithin the time period is included. GLYCOHEMOGLOBIN A1C 4.6 4.5 - 6.2 % TB Comment: ADA RECOMMENDED LIMIT 4.0 - 6.0 ADA THERAPEUTIC TARGET < 7.0 ACTION SUGGESTED > 7.0 ESTIMATED AVERAGE GLUCOSE 85 mg/dL TBH 06/08/2025 11:3 4 AM EDT 06/08/2025 11:37 AM EDT Narrative CLINISYNC - 06/08/2025 12:21 PM EDT us Mee Pringle DO CLINISYNC Final Result Performing Organization Address City/[facility]/ZIP Co de Phone Number CLINISYNC TB * US OB 14+ weeks anatomy scan (05/30/2025 12:58 PM EDT) Anatomical Region Laterality Modality Body Ultrasound 05/30/2025 12:5 8 PM EDT Narrative 05/30/2025 12:58 PM EDT THIS EXAM WAS PERFORMED AT [facility] ([place], [place]) NAME: YOAV MUNOZ : 1990 SEX: F Accession Number: [id number] ORDERING PHYSICIAN: MEE PRINGLE REFERRING PHYSICIAN: MEE PRINGLE Coding ----- --------- Procedures 96860: Ultrasound, uterus, real time with image documentation, and maternal evaluation plus detailed anatomic examination, transabdominal approach;single or first gestation Indication ----- --------- Screening for Anatomic Survey, Hepatitis C in , Malformation of placenta- complete circumvallate,History of prior with delivery- placental abruption, Previous History ----- --------- OB History 4. Para 3 [id number] Maternal Assessment ----- --------- Physical Exam Initial [...] EFW (oz) 14 oz EFW by: Hadlock ([id number]) Extended Tibia 48.3 mm 29w 1d 6% Mara [employer] Mach[employer] Instructor 2.3 mm CM 9.6 mm 95% Nicolaides [...] view. RVOT view. LVOT view. 3-vessel view. 1-moxntx-ykqfhfo view. Situs. Bicaval view. Interventricular septum. Great [...] placenta noted. Recommendations ----- --------- Please see [facility] documentation from today. The patient is scheduled in four week(s) to complete anatomic survey. Subsequent follow up or other follow up as clinically determined by primary OB provider unless otherwise specified by [facility]. Results forwarded to ordering provider so they can follow up with the patient as necessary. Procedure Note Radiology, Radiologist, - 05/30/2025 THIS EXAM WAS PERFORMED AT [facility] ([place], [place]) NAME: YOAV MUNOZ : 1990 SEX: F Accession Number: [id number] ORDERING PHYSICIAN: MEE PRINGLE REFERRING PHYSICIAN: MEE PRINGLE Coding ----- --------- Procedures 96856: Ultrasound, uterus, real time with imagedocumentation, and maternal evaluation plus detailed anatomic examination, transabdominalapproach;single or first gestation Indication ----- --------- Screening for Anatomic Survey, Hepatitis C in , Malformation ofplacenta- complete circumvallate,History of prior with delivery- placental abruption, Previous History ----- --------- OB History 4. Para 3 [id number] Maternal Assessment ----- --------- Physical Exam Initial [...] EFW (oz) 14 oz EFW by: Hadlock ([id number]) Extended Tibia 48.3 mm 29w 1d 6% Mara [employer] Mach[employer] Instructor 2.3 mm CM 9.6 mm 95% Nicolaides [...] 4-chamber view. RVOT view. LVOT view. 3-vessel view.7-zqquic-vihxydt view. Situs. Bicaval view. Interventricular septum. Great [...] byprimary OB provider unless otherwise specified by [facility]. Results forwarded to ordering provider so they can follow up with thepatient as necessary. us Mee Pringle DO IMG OB US PROCEDURES Final Resul t * HBSAG SCREEN (05/21/2025 11:39 AM EDT) Pathologist [facility] HBSAG SCREEN Negative Negative [facility] Comment: Performed at: [address] [id number] Pull Through Hooker: Aric Pryor PhD, Phone: [phone] 05/21/2025 11:3 9 AM EDT 05/21/2025 11:46 AM EDT Narrative CLINISYNC - 05/22/2025 12:09 PM EDT Mee Yary DO LAB BLOOD ORDERABLES Final Resul t Performing Organization Address [facility] Co de Phone Number [facility] * RAPID PLASMA REAGIN, QUANT (05/21/2025 11:39 AM EDT) RAPID PLASMA REAGIN, QUANT Non Reactive NonRea<1: 1 titer [facility] Comment: Please Note: This test does not meet current guidelines for screening and diagnosis of syphilis. This test is intended for following treatment response in patients being treated for syphilis infection. To screen for syphilis infection, a reflex cascade that includes both RPR and a treponema-specific assay should be utilized, such as Treponema pallidum (Syphilis) Screening [place] (772712) or Rapid Plasma Reagin (RPR) Test With Reflex to Quantitative RPR and Confirmatory Treponema pallidum Antibodies (152664). Performed at: [facility] [employer] [id number] Pull Through Hooker: Aric Pryor PhD, Phone: [phone] 05/21/2025 11:3 9 AM EDT 05/21/2025 11:46 AM EDT Narrative CLINISYCO - 05/22/2025 12:09 PM EDT Mee Yary DO LAB BLOOD ORDERABLES Final Resul t Performing Organization Address City/[facility]/ZIP Co de Phone Number [facility] * HIV AB/P24 AG WITH REFLEX (05/21/2025 11:39 AM EDT) Pathologist [facility] HIV AB/P24 AG SCREEN Non Reactive Non Reactive [facility] Comment: HIV-1/HIV-2 antibodies and HIV-1 p24 antigen were NOT detected. There is no laboratory evidence of HIV infection. HIV Negative Performed at: [employer] [place] [id number] Pull Through Hooker: Aric Pryor PhD, Phone: [phone] 05/21/2025 11:3 9 AM EDT 05/21/2025 11:46 AM EDT Narrative CLINISYNC - 05/22/2025 5:08 AM EDT Mee Yary DO LAB BLOOD ORDERABLES Final Resul t Performing Organization Address City/[facility] Co de Phone Number [facility] * (ABNORMAL) HCV ANTIBODY RFX TO QUANT PCR (05/21/2025 11:39 AM EDT) Pathologist [facility] HCV AB Reactive(A) Non Reactive [facility] HEPATITIS C QUANTITATION 29572 . IU/mL [facility] HCV LOG10 4.819 . [facility] Comment:Result Units: log10 IU/mL TEST INFORMATION: Comment . [facility] Comment: The quantitative range of this assay is 15 IU/mL to 100 million IU/mL. INTERPRETATION: Comment . [facility] Comment: Positive HCV antibody screen with the presence of HCV RNA is consistent with active infection. Performed at: [address] [id number] Pull Through Hooker: Aric Pryor PhD, Phone: [phone] Performed at: [facility] [id number] Pull Through Hooker: Miles Owens MD, Phone: [phone] 05/21/2025 11:3 9 AM EDT 05/21/2025 11:46 AM EDT Narrative CLINISYNC - 05/24/2025 3:08 PM EDT Mee Yary DO LAB BLOOD ORDERABLES Final Resul t Performing Organization Address City/[facility] Co de Phone Number [facility] * ALL TYPE AND SCREEN (05/21/2025 11:39 AM EDT) BLOOD TYPE B Positive [facility] ANTIBODY SCREEN NEGATIVE [facility] 05/21/2025 11:3 9 AM EDT 05/21/2025 11:46 AM EDT Narrative CLINISYNC - 05/21/2025 1:42 PM EDT [facility] , Mee Yary DO CLINISYNC Final Result [facility] * (ABNORMAL) ALL RUBELLA IGG AB (05/21/2025 11:39 AM EDT) [facility] RUBELLA ANTIBODIES, IGG <0.90(A) Immune >0.99 index TBH Comment: Non-immune <0.90 Equivocal 0.90 - 0.99 Immune >0.99 Performed at: [facility] [id number] Pull Through Hooker: Aric Pryor PhD, Phone: [phone] 05/21/2025 11:3 9 AM EDT 05/21/2025 11:46 AM EDT Narrative CLINISYNC - 05/24/2025 3:08 PM EDT Mee Yary DO CLINISYNC Final Result [facility] * (ABNORMAL) ALL CBC WITH AUTO DIFF (05/21/2025 11:39 AM EDT) [facility] WBC 11.8(H) 4.0 - 11.0 10 3/uL [...] EDT Mee Pringle DO CLINISYNC Final Result [facility] * (ABNORMAL) BUPRENORPHINE CONFIRM, URINE (05/21/2025 11:24 AM EDT) BUPRENORPHINE Positive( A) . [facility] BUPRENORPHINE CONF, MS, UR 525 Cutoff=10 ng/mL [facility] NORBUPRENORPHINE Positive( A) . [facility] NORBUPRENORPHINE CONF, MS,UR 905 Cutoff=10 ng/mL [facility] Comment: Performed at: - [facility] [address] [facility], [place], [place] [id number] Pull Through Hooker: Soledad Mendieta PhD, Phone: [phone] 05/21/2025 11:2 4 AM EDT 05/21/2025 12:08 PM EDT Narrative CLINISYNC - 05/24/2025 12:09 PM EDT us Mee Yary DO LAB BLOOD ORDERABLES Final Resul t [facility] * (ABNORMAL) TB DRUG SCREEN RAPID (URINE) (05/21/2025 11:24 AM [...] us Mee Yary DO CLINISYNC Final Result [facility] * US OB CERVICAL LENGTH (04/09/2025 1:01 PM EDT) Anatomical Region Laterality Modality Other 04/09/2025 1:01 PM EDT Narrative 04/09/2025 1:04 PM EDT The [address] [address] Ultrasound Report Signed Patient: CARMELITA CASON MR#: [id number] : 1990 Acct:[id number] Age/Sex: 34 / F ADM Date: 04/09/25 Loc: US Attending Dr: Paradise Olvera Ordering Physician: Paradise Olvera Date of Service: 04/09/25 Procedure(s): US OB cervical length Accession Number(s): [id number] cc: Paradise Olvera; ROMEO GAR [address] [address] Patient Name: CARMELITA CASON MRN: [id number] date: 1990 Sex: F Assigned Patient Location: US Current Patient Location: US Accession/Order Number: [id number] Exam Date: 04/09/2025 12:20 Report Date: 04/09/2025 [...] all 4 extremities were surveyed by the aerodynamic consultant. No abnormalities were detected. The stomach, bladder, [...] Zelaya M.D. 04/09/2025 1:01 PM Dictation Location: [place] [address] Electronically authenticated by: [id number] Y Date: 04/09/2025 13:01 Dictated By: Raine Zelaya M.D. Signed By: 04/09/25 1304 DD/ 1301 TD/TT: Athletics Teacher: Procedure Note Radiology, Radiologist, MD - 04/09/2025 [place] [address] Ultrasound Report Signed Patient: CARMELITA CASON [facility]#: [id number] : 1990Acct:[id number] Age/Sex: 34 / FADM Date: 04/09/25 Loc: US Attending Dr: Paradise Olvera Ordering Physician: Paradise Olvera Date of Service: 04/09/25 Procedure(s): US OB cervical length Accession Number(s): [id number] cc: Paradise Olvera; ORMEO GAR The [address] [address] Patient Name: CARMELITA CASON MRN: [id number] date: 1990 Sex: F Assigned Patient Location: US Current Patient Location: US Accession/Order Number: [id number] Exam Date: 04/09/2025 12:20 Report Date: 04/09/2025 [...] and all 4 extremities weresurveyed by the aerodynamic consultant. No abnormalities were detected. The stomach,bladder, kidneys, [...] Zelaya M.D. 04/09/2025 1:01 PM Dictation Location: [place] [address] Electronically authenticated by: [id number] Y Date: 3:01 Dictated By: Raine Zelaya M.D. Signed By:04/09/25 1304 DD/ 1301 TD/TT: Athletics Teacher: us Paradise MORROW CLINISYNC IMAGING Final Result * US OB ANATOMY (04/09/2025 1:01 PM EDT) Anatomical Region Laterality Modality Other 04/09/2025 1:01 PM EDT Narrative 04/09/2025 1:04 [place] [address] Ultrasound Report Signed Patient: CARMELITA CASON MR#: [id number] : 1990 Acct:[id number] Age/Sex: 34 / F ADM Date: 04/09/25 Loc: US Attending Dr: Paradise Olvera Ordering Physician: Paradise Olvera Date of Service: 04/09/25 Procedure(s): US OB anatomy Accession Number(s): [id number] cc: Paradise Olvera; ROMEO GAR [address] [address] Patient Name: CARMELITA CASON MRN: [id number] date: 1990 Sex: F Assigned Patient Location: Current Patient Location: US Accession/Order Number: [id number] Exam Date: 04/09/2025 12:20 Report Date: 04/09/2025 [...] all 4 extremities were surveyed by the aerodynamic consultant. No abnormalities were detected. The stomach, bladder, [...] Zelaya M.D. 04/09/2025 1:01 PM Dictation Location: [place] [address] Electronically authenticated by: [id number] Y Date: 04/09/2025 13:01 Dictated By: Raine Zelaya M.D. Signed By: 04/09/25 1304 DD/ 1301 TD/TT: Athletics Teacher: Procedure Note Radiology, Radiologist, - 04/09/2025 [place] [address] Ultrasound Report Signed Patient: CARMELITA CASON [facility]#: [id number] : 1990Acct:[id number] Age/Sex: 34 / FADM Date: 04/09/25 Loc: US Attending Dr: Paradise Olvera Ordering Physician: Paradise Olvera Date of Service: 04/09/25 Procedure(s): US OB anatomy Accession Number(s): [id number] cc: Paradise Olvera; ROMEO GAR The [place] [address] Patient Name: CARMELITA CASON MRN: [id number] date: 1990 Sex: F Assigned Patient Location: US Current Patient Location: US Accession/Order Number: [id number] Exam Date: 04/09/2025 12:20 Report Date: 04/09/2025 [...] and all 4 extremities weresurveyed by the aerodynamic consultant. No abnormalities were detected. The stomach,bladder, kidneys, [...] Zelaya M.D. 04/09/2025 1:01 PM Dictation Location: [place] [address] Electronically authenticated by: [id number] Y Date: 3:01 Dictated By: Raine Zelaya M.D. Signed By:04/09/25 1304 DD/ 1301 TD/TT: Athletics Teacher: Paradise MORROW [facility]IN[facility] IMAGING Final Result * (ABNORMAL) POCT , urine manually resulted (04/06/2025 11:13 AM EDT) Preg Test, Ur Positive Negative Urine 04/06/2025 11:1 3 AM EDT Mee Pringle DO POINT OF CARE TEST ENTER/EDIT OR DERABLES Final Result from Last 3 Months Insurance [employer]
--- OUTSIDE RECORDS SUMMARY | 2025-07-03 10:01 | XMS_ITS | Encounter Summary ---
Author Organization [facility] Address [address] [place] [address] Care Team Providers Care Second Class Welder Name Role Phone Unavailable Primary Care Provider Unavailabl e Encounter Details Date Type Department Care Team (Late st Contact Info) Description 07/09/2015 Abstract NOMJennifer CAMPBELL [address] [place], [place] [address] [address] Tony Pringle DO [address] [place] Mounika Clement, [facility]11 Social History Tobacco Use Types [...] Info) Description 07/04/2025 10:50 AM EDT Routine HALEY CAMPBELL [address] [place], [place] [address] [address] Tony Pringle DO [address] Kh[address] Clement, [place] [address] documented as of this encounter Visit Diagnoses Not on filedocumented in this encounter
--- OUTSIDE RECORDS SUMMARY | 2025-07-03 10:01 | XMS_ITS | Encounter Summary ---
Author Organization [facility] Address [id number] [address] [place] [address] Care Team Providers Care Valance Cutter Name Role Phone No Pcp, No Pcp Primary Care Provider Unavailabl e Encounter Details Date Type Department Care Team (Late Contact Info) Description 05/30/2025 Orders Only Maternal- Medicine at [facility] [address] [place] [address] Paradise Raya LPN Social History Tobacco Use [...] 07/05/2025 11:00 AM EDT Appointment Maternal Medicine [place] [address] [facility] [address] [place] [address] 07/05/2025 2:30 PM EDT Telemedicine Maternal- Medicine at [facility] [address] [place] [address] Tasia Dowd MD [address] [facility] 1st [place] [address] documented as of this encounter Visit Diagnoses Not on filedocumented in this encounter Care Teams Valance Cutter Relationship Specialty Start Date End Date No Pcp, [place] [address] PCP - General Family Medicine 04/27/20 documented as of this encounter
--- OUTSIDE RECORDS SUMMARY | 2025-07-03 10:01 | XMS_ITS | Clinical Summary ---
Author Organization [facility] Address [facility] [address] [place] [address] Care Team Providers Care Director Regulatory Agency Name Role Phone No Pcp, No Pcp [...] AM EDT Office Visit Maternal- Medicine at [facility] [address] [place] [address] Nohemy Hernandez MD History of placental abruption (Primary Dx); Hepatitis C virus infection without hepatic coma, unspecified chronicity 05/30/2025 9:15 AM EDT - 05/30/2025 11:59 PM EDT Hospital Encounter [facility] US Imaging [address] [place] [phone] Screening, , for anatomic survey Discharge Disposition: Home 05/30/2025 Orders Only Maternal- Medicine at [facility] [address] [place] [address] Paradise Raya LPN 05/30/2025 Travel 05/30/2025 Abstract Maternal- Medicine at [facility] [address] [place] [address] Nohemy Hernandez MD 05/30/2025 Orders Only Maternal- Medicine at [facility] [address] [place] [phone] Ref Prov, Not In System 05/30/2025 Abstract Maternal- Medicine at [facility] [address] [place] [phone] Nohemy Hernandez MD from Last 3 Months [...] 07/05/2025 11:00 AM EDT Appointment Maternal Medicine [place] [address] [facility] [address] [place] [phone] 07/05/2025 2:30 PM EDT Telemedicine Maternal- Medicine at [facility] [address] [place] [phone] Tasia Dowd MD [address] [facility] 1st [place] [address] Health Maintenance Due Date Last Done Comments [...] 10:52 AM EDT) Anatomical Region Laterality Modality OB-FIRST CRUSHER Ultrasound 05/30/2025 9:40 AM EDT Narrative 05/30/2025 12:58 PM EDT NAME: YOAV MUNOZ : 1990 SEX: F Accession Number: [id number] ORDERING PHYSICIAN: MEE PRINGLE REFERRING PHYSICIAN: MEE PRINGLE Coding ----- --------- Procedures 82086: Ultrasound, uterus, real time with image documentation, and maternal evaluation plus detailed anatomic examination, transabdominal approach;single or first gestation Indication ----- --------- Screening for Anatomic Survey, Hepatitis C in , Malformation of placenta- complete circumvallate,History of prior with delivery- placental abruption, Previous History ----- --------- OB History 4. Para 3 [id number] Maternal Assessment ----- --------- Physical Exam Initial [...] EFW (oz) 14 oz EFW by: Hadlock ([id number]) Extended Tibia 48.3 mm 29w 1d 6% Mara Admission Nurse Coordinator 2.3 mm CM 9.6 mm 95% Nicolaides [...] view. RVOT view. LVOT view. 3-vessel view. 5-qfydxq-olkogfd view. Situs. Bicaval view. Interventricular septum. Great [...] placenta noted. Recommendations ----- --------- Please see [facility] documentation from today. The patient is scheduled in four week(s) to complete anatomic survey. Subsequent follow up or other follow up as clinically determined by primary OB provider unless otherwise specified by [facility]. Results forwarded to ordering provider so they can follow up with the patient as necessary. Procedure Note Nohemy Hernandez MD - 05/30/2025 NAME: YOAV MUNOZ : 1990 SEX: F Accession Number: [id number] ORDERING PHYSICIAN: MEE PRINGLE REFERRING PHYSICIAN: MEE PRINGLE Coding ----- --------- Procedures 93868: Ultrasound, uterus, real time with imagedocumentation, and maternal evaluation plus detailed anatomic examination, transabdominalapproach;single or first gestation Indication ----- --------- Screening for Anatomic Survey, Hepatitis C in , Malformation ofplacenta- complete circumvallate,History of prior with delivery- placental abruption, Previous History ----- --------- OB History 4. Para 3 [id number] Maternal Assessment ----- --------- Physical Exam Initial [...] EFW (oz) 14 oz EFW by: Hadlock (QLL-[id number]-FL) Extended Tibia 48.3 mm 29w 1d 6% Mara Admission Nurse Coordinator 2.3 mm CM 9.6 mm 95% Nicolaides [...] 4-chamber view. RVOT view. LVOT view. 3-vessel view.1-dzkgry-bavcuhb view. Situs. Bicaval view. Interventricular septum. Great [...] placenta noted. Recommendations ----- --------- Please see [facility] documentation from today. The patient is scheduled in four week(s) to complete anatomic survey. Subsequent follow up or other follow up as clinically determined byprimary OB provider unless otherwise specified by [facility]. Results forwarded to ordering provider so they can follow up with thepatient as necessary. us Mee Pringle DO [facility] US ORDERABLES Final Result * [...] ORDERABLES Yun l Result Performing Organization Address City/[facility]/ZIP Co de Phone Number MANUALLY TRANSCRIBED RESULTS * Rubella IGG immune status (05/21/2025) Rubella immune IgG <0.90 MANUALLY TRANSCRIBED RESULTS Blood Venous blood / Unknown us Not In System Ref Prov LAB BLOOD ORDERABLES Yun l Result Performing Organization Address City/[facility]/ZIP Co de Phone Number MANUALLY TRANSCRIBED RESULTS * Syphilis Total (Unknown Syphilis Status) (05/21/2025) Syphilis NON-REACTI VE MANUALLY TRANSCRIBED RESULTS Blood Venous blood / Unknown us Not In System Ref Prov LAB BLOOD ORDERABLES Yun l Result Performing Organization Address City/[facility]/ZIP Co de Phone Number MANUALLY TRANSCRIBED [...] ORDERABLES Final Re sult Performing Organization Address [facility] Phone Number MANUALLY TRANSCRIBED RESULTS * Hepatitis B surface antigen (05/21/2025) Hepatitis B Surface Antigen NEGATIVE MANUALLY TRANSCRIBED RESULTS Blood Venous blood / Unknown us Not In System Ref Prov LAB BLOOD ORDERABLES Yun l Result Performing Organization Address [facility] de Phone Number MANUALLY TRANSCRIBED RESULTS * CBC without diff (05/21/2025) Hemoglobin 10.8 MANUALLY TRANSCRIBED RESULTS Hematocrit 30.6 MANUALLY TRANSCRIBED RESULTS Rbc Mcv (Fl) By Automated Count 79.3 MANUALLY TRANSCRIBED RESULTS Platelets 176 MANUALLY TRANSCRIBED RESULTS Blood Venous blood / Unknown us Not In System Ref Prov LAB BLOOD ORDERABLES Yun l Result Performing Organization Address [facility] de Phone Number MANUALLY TRANSCRIBED RESULTS * Type and screen (05/21/2025) Abo/Rh(D) B Positive MANUALLY TRANSCRIBED RESULTS Antibody Screen NEGATIVE MANUALLY TRANSCRIBED RESULTS Blood Venous blood / Unknown us Not In System Ref Prov BLOOD BANK TEST ORDERABLE S Final Result Performing Organization Address [facility] Co de Phone Number MANUALLY TRANSCRIBED RESULTS * Hemoglobin A1c (05/21/2025) Hemoglobin A1C 4.7 4.0 - 6.0 % MANUALLY TRANSCRIBED RESULTS Blood Venous blood / Unknown us Nohemy Hernandez MD LAB BLOOD ORDERABLES Final Re sult MANUALLY TRANSCRIBED RESULTS from Last 3 Months Insurance [employer] Care Teams Director Regulatory Agency Relationship Specialty Start Date End Date No Pcp, No Pcp RU[place] [phone] PCP - General Family Medicine 04/27/20
--- OUTSIDE RECORDS SUMMARY | 2025-07-03 10:01 | XMS_ITS | Encounter Summary ---
Author Organization [facility] Address [address] [place] [address] Care Team Providers Care Banbury Mill Operator Name Role Phone Unavailable Primary Care Provider Unavailabl e Encounter Details Date Type Department Care Team (Late Contact Info) Description 06/20/2025 Bamboo flowsheet NOMJennifer CAMPBELL [address] [place] [address] [address] Pringle [address] [place] Clement, [facility]11 Social History Tobacco Use Types Packs/Day Years [...] Info) Description 07/04/2025 10:50 AM EDT Routine NOMJennifer CAMPBELL [address] [place] [address] Tony Pringle DO [facility] Khurram Clement, [facility] documented as of this encounter Visit Diagnoses Not on filedocumented in this encounter
--- OUTSIDE RECORDS SUMMARY | 2025-07-03 10:01 | XMS_ITS | Encounter Summary ---
Author Organization [facility] Address [address] [place] [address] Care Team Providers Care Platinum Smith Name Role Phone Unavailable Primary Care Provider Unavailabl e Encounter Details Date Type Department Care Team (Late st Contact Info) Description 07/01/2025 Clinisync Result Encounter NOMS External Department Unsolicited Mee Pringle [address] [place] Mounika Clement, [facility]11 Social History Tobacco Use Types Packs/Day [...] Description 07/04/2025 10:50 AM EDT Routine NOMJennifer Clement OBG[facility] [address] [place] [phone] Mee Pringle DO [address]ounika Clement, [place] [address] documented as of this encounter Procedures Procedure Name Priority Date/Time Associated Diagnosis Comments US OB BPP W NON-STRESS 07/01/2025 9:41 AM EDT documented in this encounter Results * US OB BPP W NON-STRESS (07/01/2025 9:41 AM EDT) Anatomical Region Laterality Modality Other 07/01/2025 9:41 AM EDT Narrative 07/01/2025 9:44 [place] [address] Ultrasound Report Signed Patient: CARMELITA YANEZ MR#: [id number] : 1990 Acct:[id number] Age/Sex: 34 / F ADM Date: Loc: [facility] 250-[address]: Mee Pringle D.O. Ordering Physician: Mee Pringle D.O. Date of Service: 07/01/25 Procedure(s): US OB BPP w non-stress Accession Number(s): [id number] cc: ROMEO GAR ; Mee Pringle D.O. [place] [address] Patient Name: CARMELITA YANEZ MRN: [id number] date: 1990 Sex: F Assigned Patient Location: [facility] Current Patient Location: [facility] Accession/Order Number: [id number] Exam Date: 07/01/2025 08:59 Report Date: 07/01/2025 [...] Frazier M.D. 07/01/2025 9:41 AM Dictation Location: [place] [address] Electronically authenticated by: [id number] Y Date: 07/01/2025 09:41 Dictated By: Anton Frazier M.D. Signed By: 07/01/2544 DD/ 0 TD/TT: Living Specialist: Procedure Note Radiology, Radiologist, MD - 07/01/2025 [place] [address] Ultrasound Report Signed Patient: CARMELITA YANEZ NMR#: [id number] : 1990Acct:[id number] Age/Sex: 34 / FADM Date: Loc: [facility] 250-[address]: Mee Pringle D.O. Ordering Physician: Mee Pringle D.O. Date of Service: 07/01/25 Procedure(s): US OB BPP w non-stress Accession Number(s): [id number] cc: ROMEO GAR ; Mee Pringle D.O. The [place] [address] Patient Name: CARMELITA YANEZ MRN: [id number] date: 1990 Sex: F Assigned Patient Location: [facility] Current Patient Location: [facility] Accession/Order Number: [id number] Exam Date: 07/01/2025 08:59 Report Date: 07/01/2025 [...] Frazier M.D. 07/01/2025 9:41 AM Dictation Location: [employer] Electronically authenticated by: [id number] Y Date: 9:41 Dictated By: Anton Frazier M.D. Signed By:07/01/25 0944 DD/ 0 TD/TT: Living Specialist: us Mee Pringle DO [facility] IMAGING Final Result documented in this encounter Visit Diagnoses Not on filedocumented in this encounter
--- OUTSIDE RECORDS SUMMARY | 2025-07-03 10:01 | XMS_ITS | Encounter Summary ---
Author Organization [facility] Address [address] [place] [address] Care Team Providers Care Assayer Helper Name Role Phone Unavailable Primary Care Provider Unavailabl e Encounter Details Date Type Department Care Team (Late Contact Info) Description 06/27/2025 Bamboo flowsheet NOMJennifer CAMPBELL [address] [place] [address] Paradise Townsend PA [address] Reyna, [facility] [address] Social History Tobacco Use Types Packs/Day Years [...] 10:50 AM EDT Routine NOMJennifer CAMPBELL [address] [place] [address] Tony Pringle DO [address] Mauro Clement, [facility] [address] documented as of this encounter Visit Diagnoses Not on filedocumented in this encounter
--- OUTSIDE RECORDS SUMMARY | 2025-07-03 10:01 | XMS_ITS | Encounter Summary ---
Author Organization [facility] Address [address] [place] [address] Care Team Providers Care Equipment Service Engineer Name Role Phone Unavailable Primary Care Provider Unavailabl e Encounter Details Date Type Department Care Team (Late st Contact Info) Description 07/01/2025 Clinisync Result Encounter NOMS External Department Unsolicited Tony Pringle [address] [place] Mounika Clement, [place] [address] Social History Tobacco Use Types Packs/Day Years [...] Description 07/04/2025 10:50 AM EDT Routine HALEY Clement OBGYN [address] [phone] Tony Pringle DO [address] [place] Mounika Clement, [place] [address] documented as of this encounter Procedures Procedure Name Priority Date/Time Associated Diagnosis Comments TB URINE MICROSCOPIC ONLY Routine 07/01/2025 6:40 AM EDT TBH UA (CLEAN/CATCH) POTATO LOADER/MICRO IF IND. Routine 07/01/2025 6:40 AM EDT documented in this encounter Results * (ABNORMAL) TBH URINE MICROSCOPIC ONLY (07/01/2025 6:40 AM EDT) TBH WBC 2-5(A) NONE SEEN #/HPF TBH [...] Narrative CLINISYNC - 07/01/2025 7:47 AM EDT Tony Yary DO [facility] * ([facility]AL) TBH UA (CLEAN/CATCH) POTATO LOADER/MICRO IF IND. (07/01/2025 6:40 AM EDT) COLOR URINE LT. YELLOW YELLOW TBH CLARITY [...] Narrative CLINISYNC - 07/01/2025 7:47 AM EDT Tony Yary DO CLINISYNC Final Result [facility] documented in this encounter Visit Diagnoses Not on filedocumented in this encounter
--- OUTSIDE RECORDS SUMMARY | 2025-07-03 10:01 | XMS_ITS | Encounter Summary ---
Author Organization [facility] Address [address] [place] [address] Care Team Providers Care Equipment Operator Name Role Phone Unavailable Primary Care Provider Unavailabl e Encounter Details Date Type Department Care Team (Late st Contact Info) Description 07/05/2015 Abstract NOMJennifer CAMPBELL [address] [place], [place] [address] [address] Tony Pringle DO [address] [place] Mounika Clement, [facility]11 Social History Tobacco Use Types Packs/Day [...] 07/04/2025 10:50 AM EDT Routine HALEY CAMPBELL [address] [place], [place] [address] [address] Tony Pringle DO [address] Khur[address] Clement, [place] [address] documented as of this encounter Visit Diagnoses Not on filedocumented in this encounter
--- OUTSIDE RECORDS SUMMARY | 2025-07-03 10:01 | XMS_ITS | Encounter Summary ---
Author Organization [facility] Address [address] [place] [address] Care Team Providers Care Mfg Assoc Name Role Phone Unavailable Primary Care Provider Unavailabl e Encounter Details Date Type Department Care Team (Late Contact Info) Description 05/30/2025 Abstract NOMS Racquel CAMPBELL [address] [place] [address] Tony Pringle, [address] Mauro Clement, [facility]11 Social History Tobacco Use Types Packs/Day Years [...] 10:50 AM EDT Routine NOMJennifer CAMPBELL [address] [address] Tony Pringle DO [address] Khurram Clement, [facility] documented as of this encounter Visit Diagnoses Not on filedocumented in this encounter
--- OUTSIDE RECORDS SUMMARY | 2025-07-03 10:01 | XMS_ITS | Encounter Summary ---
Author Organization [facility] Address [facility] [id number] [address] [place] [address] Care Team Providers Care Manager Bilingual Name Role Phone No Pcp, No Pcp Primary Care Provider Unavailabl e Encounter Details Date Type Department Care Team (Late Contact Info) Description 05/30/2025 Orders Only Maternal- Medicine at [facility] [address] [place] [phone] Ref Prov, [place] [address] Social History Tobacco Use Types Packs/Day Years [...] 07/05/2025 11:00 AM EDT Appointment Maternal Medicine [facility] [address] [facility] [address] [place] [address] 07/05/2025 2:30 PM EDT Telemedicine Maternal- Medicine at [facility] [address] [facility] [place] [phone] Tasia Dowd MD [address] [facility] 1[address] [place] [address] documented as of this encounter Procedures Procedure [...] on filedocumented in this encounter Care Teams Manager Bilingual Relationship Specialty Start Date End Date No Pcp, [place] [address] PCP - General Family Medicine 04/27/20 documented as of this encounter
--- OUTSIDE RECORDS SUMMARY | 2025-07-03 10:01 | XMS_ITS | Encounter Summary ---
Author Organization [facility] Address [address] [place] [address] Care Team Providers Care Otolaryngology Physician Name Role Phone Unavailable Primary Care Provider Unavailabl e Encounter Details Date Type Department Care Team (Late st Contact Info) Description 07/01/2025 Clinisync Result Encounter [facility] External Department Unsolicited Mee Pringle [address] [place], [place] [address] Social History Tobacco Use Types Packs/Day Years [...] [address] [place] [phone] Mee Pringle DO [address], [place] [address] documented as of this encounter Procedures Procedure Name Priority Date/Time Associated Diagnosis Comments US OB PLACENTA 07/01/2025 9:41 AM EDT documented in this encounter Results * US OB PLACENTA (07/01/2025 9:41 AM EDT) Anatomical Region Laterality Modality Other 07/01/2025 9:41 AM EDT Narrative 07/01/2025 9:44 [place] [address] Ultrasound Report Signed Patient: CARMELITA YANEZ MR#: [id number] : 1990 Acct:[id number] Age/Sex: 34 / F ADM Date: Loc: [facility] 250-[address]: Mee Pringle D.O. Ordering Physician: Mee Pringle D.O. Date of Service: 07/01/25 Procedure(s): US OB placenta Accession Number(s): [id number] cc: ROMEO GAR ; Mee Pringle D.O. [place] [address] Patient Name: CARMELITA YANEZ MRN: [id number] date: 1990 Sex: F Assigned Patient Location: [facility] Current Patient Location: [facility] Accession/Order Number: [id number] Exam Date: 07/01/2025 08:59 Report Date: 07/01/2025 [...] Frazier M.D. 07/01/2025 9:41 AM Dictation Location: [place] [address] Electronically authenticated by: [id number] Y Date: 07/01/2025 09:41 Dictated By: Anton Frazier M.D. Signed By: 07/01/2544 DD/ 0 TD/TT: Syrup Blender: Procedure Note Radiology, Radiologist, MD - 07/01/2025 [place] [address] Ultrasound Report Signed Patient: CARMELITA YANEZ NMR#: [id number] : 1990Acct:[id number] Age/Sex: 34 / FADM Date: Loc: [facility] 250-[address]: Mee Pringle D.O. Ordering Physician: Mee Pringle D.O. Date of Service: 07/01/25 Procedure(s): US OB placenta Accession Number(s): [id number] cc: ROMEO GAR ; Mee Pringle D.O. [place] [address] Patient Name: CARMELITA YANEZ MRN: [facility]:[id number] date: 1990 Sex: F Assigned Patient Location: [facility] Current Patient Location: [facility] Accession/Order Number: [id number] Exam Date: 07/01/2025 08:59 Report Date: 07/01/2025 [...] Frazier M.D. 07/01/2025 9:41 AM Dictation Location: [place] [address] Electronically authenticated by: [id number] Y Date: 9:41 Dictated By: Anton Frazier M.D. Signed By:07/01/25 0944 DD/ TD/TT: Syrup Blender: us Mee Yary DO [facility] Final Result documented in this encounter Visit Diagnoses Not on filedocumented in this encounter
--- OUTSIDE RECORDS SUMMARY | 2025-07-03 10:03 | XMS_ITS | CCD ---
Author Organization [facility] Care Team Providers Care Dental Office Manager Name Role Phone Sidney Nava Unavailable Unavailable [...] Translations: [PENICILLINS] Drug allergy (disorder) 3 [facility] Repository (20 sources) Penicillin G Drug Allergy 5 [facility] Work Phone: (3 sources) Penicillins Propensity to adverse reactions to drug 0 [facility] (14 sources) Penicillins Propensity to adverse reactions 0 [facility] Medications Current Medications Medication Drug [...] MG tablet Indications: headache in second trimester ([facility]) Take 1 tablet (400 mg) by [...] 07-31-2022 Episodic Other aftercare (5 sources) Other manager long term care (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 therapy; Translations: [OTH ADJUSTER [facility]O [facility] CURRENT DRUG THERAPY] Onset: 07-31-2022 Episodic Other [...] Name Value Interpretation Reference Range Facil ity No Panel InformationOrdered By: Radiologist Radiology on 07-01-2025 [facility] Work Phone: No Panel Informationon 07-01 Radiology Study observation (narrative) [facility] UA (CLEAN/CATCH) DOUBLE BOTTOM DRIVER/DEMETRA RO IF IND.on 07-01-2025 BILIRUBIN URINE Negative NEGATIVE [facility] BLOOD URINE Negative NEGATIVE [facility] Clarity (U) CLEAR CLEAR [facility] Color (U) LT. YELLOW YELLOW [facility] GLUCOSE URINE UA Negative NEGATIVE mg/dL [facility] Interpretation and review of laboratory results Abnormal [facility] Ketones Ql (U) Negative NEGATIVE mg/dL [facility] Leukocyte esterase Test strip Ql (U) MODERATE Abnormal NEGATIVE [facility] NITRITE URINE Negative NEGATIVE [facility] pH (U) 6.5 [pH] 5.0 - 9.0 [facility] PROTEIN URINE Negative NEG/TRACE mg/dL [facility] SPECIFIC GRAVITY URINE 1.015 1.005 - 1.025 [facility] URINE MICROSCOPIC INDICATED YES [facility] UROBILINOGEN URINE 0.2 EU/dL 0.2 - 1.0 EU/dL N [facility] US OB BPP W NON-STRESS on 07-01-2025 [place] [address] Ultrasound Report Signed Patient: CARMELITA CASON MR#: [id number] : 1990 Acct:[id number] Age/Sex: 34 / F ADM Date: Loc: [facility] 250-[address]: Mee Pringle D.O. Ordering Physician: Mee Pringle D.O. Date of Service: 07/01/25 Procedure(s): US OB BPP w non-stress Accession Number(s): [id number] cc: ROMEO GAR ; Mee Pringle D.O. The [place] [id number] Patient Name: CARMELITA CASON MRN: [facility]:[id number] date: 1990 Sex: F Assigned Patient Location: [facility] Current Patient Location: [facility] Accession/Order Number: [id number] Exam Date: 07/01/2025 08:59 Report Date: 07/01/2025 [...] Frazier M.D. 07/01/2025 9:41 AM Dictation Location: [place] [address] Electronically authenticated by: [id number] Y Date: 07/01/2025 09:41 Dictated By: Anton Frazier M.D. Signed By: 07/01/2544 DD/ 0 TD/TT: Revenue Analyst: [facility] Radiology, Radiologist, - 07/01/2025 [place] [address] Ultrasound Report Signed Patient: CARMELITA CASON MR#: [id number] : 1990 Acct:[id number] Age/Sex: 34 / F ADM Date: Loc: [facility] 250-[address]: Mee Pringle D.O. Ordering Physician: Mee Pringle D.O. Date of Service: 07/01/25 Procedure(s): US OB BPP w non-stress Accession Number(s): [id number] cc: ROMEO GAR ; Mee Pringle D.O. [place] [address] Patient Name: CARMELITA CASON MRN: [id number] date: 1990 Sex: F Assigned Patient Location: [facility] Current Patient Location: [facility] Accession/Order Number: [id number] Exam Date: 07/01/2025 08:59 Report Date: 07/01/2025 [...] Frazier M.D. 07/01/2025 9:41 AM Dictation Location: [place] [address] Electronically authenticated by: [id number] Y Date: 07/01/2025 09:41 Dictated By: Anton Frazier M.D. Signed By: 07/01/25 0944 DD/ 0 TD/TT: Revenue Analyst: HALEY Faulkner US OB PLACENTAon 07-01-2025 [place] [address] Ultrasound Report Signed Patient: CARMELITA CASON MR#: [id number] : 1990 Acct:[id number] Age/Sex: 34 / F ADM Date: Loc: [facility] 250-[address]: Mee Pringle D.O. Ordering Physician: Mee Pringle D.O. Date of Service: 07/01/25 Procedure(s): US OB placenta Accession Number(s): [id number] cc: ROMEO GAR ; Mee Pringle D.O. [place] [id number] Patient Name: CARMELITA CASON MRN: [facility]:[id number] date: 1990 Sex: F Assigned Patient Location: [facility] Current Patient Location: [facility] Accession/Order Number: [id number] Exam Date: 07/01/2025 08:59 Report Date: 07/01/2025 [...] Frazier M.D. 07/01/2025 9:41 AM Dictation Location: [place] [address] Electronically authenticated by: [id number] Y Date: 07/01/2025 09:41 Dictated By: Anton Frazier M.D. Signed By: 07/01/2544 DD/ 0 TD/TT: Revenue Analyst: [facility] Radiology, Radiologist, - 07/01/2025 [place] [address] Ultrasound Report Signed Patient: CARMELITA CASON MR#: [id number] : 1990 Acct:[id number] Age/Sex: 34 / F ADM Date: Loc: [facility] 250-[address]: Mee Pringle D.O. Ordering Physician: Mee Pringle D.O. Date of Service: 07/01/25 Procedure(s): US OB placenta Accession Number(s): [id number] cc: ROMEO GAR ; Mee Pringle D.O. The [place] [address] Patient Name: CARMELITA CASON MRN: [facility]:[id number] date: 1990 Sex: F Assigned Patient Location: [facility] Current Patient Location: [facility] Accession/Order Number: [id number] Exam Date: 07/01/2025 08:59 Report Date: 07/01/2025 [...] Frazier M.D. 07/01/2025 9:41 AM Dictation Location: [facility] Electronically authenticated by: [id number] Y Date: 07/01/2025 09:41 Dictated By: Anton Frazier M.D. Signed By: 07/01/2544 DD/ 0 TD/TT: Revenue Analyst: [facility] Urinalysis macro (dipstick) panel (U)on 06-27-2025 Bilirubin, UA Negative Negative - 4(70) +++ mg/dL [facility] Blood, UA Negative Negative - 50 Amador/mcL [facility] Clarity, UA Clear [facility] Color, UA Yellow [facility] Glucose, UA Negative Negative - 1999(110) ++++ mg/dL [facility] Interpretation and review of laboratory results Abnormal [facility] Ketones, UA Negative Negative - 160(16) ++++ mg/dL [facility] Leukocytes, UA Positive Negative - 500+++ Camille/mcL [facility] Comment on above: Trace Nitrite, UA Negative Negative - Positive [facility] pH, UA 6.5 5 - 9 [facility] Protein, UA Negative Negative - 1999(20) ++++ mg/dL [facility] Spec Grav, UA 1005 1 - 1.03 [facility] Urobilinogen, UA 0.2 0.2 - 12 mg/dL [facility] Urinalysis macro (dipstick) panel (U)on 06-20-2025 Bilirubin, UA Negative Negative - 4(70) +++ mg/dL [facility] Blood, UA Negative Negative - 50 Amador/mcL [facility] Clarity, UA Clear [facility] Color, UA Yellow [facility] Glucose, UA Negative Negative - 1999(110) ++++ mg/dL [facility] Interpretation and review of laboratory results Abnormal [facility] Ketones, UA Negative Negative - 160(16) ++++ mg/dL [facility] Leukocytes, UA Positive Negative - 500+++ Camille/mcL [facility] Nitrite, UA Negative Negative - Positive [facility] pH, UA 6.5 5 - 9 [facility] Protein, UA Negative Negative - 1999(20) ++++ mg/dL [facility] Spec Grav, UA 1.01 1 - 1.03 [facility] Urobilinogen, UA 1.0 0.2 - 12 mg/dL [facility] TBH UA (CLEAN/CATCH) DOUBLE BOTTOM DRIVER/DEMETRA RO IF IND.on 06-14-2025 BILIRUBIN URINE Negative NEGATIVE [facility] BLOOD URINE Negative NEGATIVE [facility] Clarity (U) CLEAR CLEAR [facility] Color (U) LT. YELLOW YELLOW [facility] GLUCOSE URINE UA Negative NEGATIVE mg/dL [facility] Interpretation and review of laboratory results Abnormal [facility] Ketones Ql (U) Negative NEGATIVE mg/dL [facility] Leukocyte esterase Test strip Ql (U) TRACE Abnormal NEGATIVE [facility] NITRITE URINE Negative NEGATIVE [facility] pH (U) 7.0 [pH] 5.0 - 9.0 [facility] PROTEIN URINE Negative NEG/TRACE mg/dL [facility] SPECIFIC GRAVITY URINE <=1.005 Abnormal 1.005 - 1.025 [facility] URINE MICROSCOPIC INDICATED YES [facility] UROBILINOGEN URINE 0.2 EU/dL 0.2 - 1.0 EU/dL N [facility] US OB BPP W NON-STRESS on 06-11-2025 [place] [address] Ultrasound Report Signed Patient: CARMELITA CASON MR#: [id number] : 1990 Acct:[id number] Age/Sex: 34 / F ADM Date: 06/11/25 Loc: US Attending Dr: Mee Pringle D.O. Ordering Physician: Mee Pringle D.O. Date of Service: 06/11/25 Procedure(s): US OB BPP w non-stress Accession Number(s): [id number] cc: ROMEO GAR ; Mee Pringle D.O. [address] [address] Patient Name: CARMELITA CASON MRN: [id number]:[id number] date: 1990 Sex: F Assigned Patient Location: [facility] Current Patient Location: Accession/Order Number: [id number] Exam Date: 06/11/2025 11:44 Report Date: 06/11/2025 11:45 At the request of: MEE PRINGLE DO Procedure: US OB BPP w non-stress Biophysical profile. Reason for exam: History of placental abruption COMPARISON: 06/05/2025 TECHNIQUE: Transabdominal imaging of the gravid uterus was obtained. FINDINGS: The technical developer reports a BPP of 8 out of 8. ELIZABETH is normal at 21.3 cm. heart rate 142 bpm. US/US OB BPP w non-stress IMPRESSION: BPP 8 out of 8. Impression dictated by: Serafin Sorto Jr., D.O. 06/11/2025 11:45 AM Dictation Location: [place] [address] Electronically authenticated by: [id number] Y Date: 06/11/2025 11:45 Dictated By: Serafin Sorto M.D. Signed By: 06/11/25 1148 DD/ 1145 TD/TT: Revenue Analyst: [facility] Radiology, Radiologist, MD - 06/11/2025 [place] [address] Ultrasound Report Signed Patient: CARMELITA CASON MR#: [id number] : 1990 Acct:[id number] Age/Sex: 34 / F ADM Date: 06/11/25 Loc: US Attending Dr: Mee Pringle D.O. Ordering Physician: Mee Pringle D.O. Date of Service: 06/11/25 Procedure(s): US OB BPP w non-stress Accession Number(s): [id number] cc: ROMEO GAR ; Mee Pringle D.O. The [address] [address] Patient Name: CARMELITA CASON MRN: [facility]:[id number] date: 1990 Sex: F Assigned Patient Location: [facility] Current Patient Location: Accession/Order Number: [id number] Exam Date: 06/11/2025 11:44 Report Date: 06/11/2025 11:45 At the request of: MEE PRINGLE DO Procedure: US OB BPP w non-stress Biophysical profile. Reason for exam: History of placental abruption COMPARISON: 06/05/2025 TECHNIQUE: Transabdominal imaging of the gravid uterus was obtained. FINDINGS: The technical developer reports a BPP of 8 out of 8. ELIZABETH is normal at 21.3 cm. heart rate 142 bpm. US/US OB BPP w non-stress IMPRESSION: BPP 8 out of 8. Impression dictated by: Serafin Sorto Jr., D.O. 06/11/2025 11:45 AM Dictation Location: [place] [address] Electronically authenticated by: [id number] Y Date: 06/11/2025 11:45 Dictated By: Serafin Sorto M.D. Signed By: 06/11/25 1148 DD/ 1145 TD/TT: Revenue Analyst: [facility] Radiology Study observation (narrative) [facility] US OB BPP W NON-STRESS Ordered By: Radiologist Radiology on 06-11-2025 [facility] Work Phone: MLR HEMOGLOBIN A1Con 025 Glucose [Mass/Vol] 85 mg/dL [facility] HbA1c (Bld) [Mass fraction] 4.6 % 4.5 - 6.2 % [facility] Comment on above: ADA RECOMMENDED LIMI T 4.0 - 6.0 ADA THERAPEUTIC TARGET < 7.0 ACTION SUGGESTED > 7.0 [facility] Urinalysis macro (dipstick) panel (U)on 06-07-2025 Bilirubin, UA Negative Negative - 4(70) +++ mg/dL [facility] Blood, UA Negative Negative - 50 Amador/mcL [facility] Clarity, UA Clear [facility] Color, UA Yellow [facility] Glucose, UA Negative Negative - 2000(110) ++++ mg/dL [facility] Interpretation and review of laboratory results Abnormal [facility] Ketones, UA Negative Negative - 160(16) ++++ mg/dL [facility] Leukocytes, UA 3+ Negative - 500+++ Camille/mcL [facility] Nitrite, UA Negative Negative - Positive [facility] pH, UA 7.5 5 - 9 [facility] Protein, UA Negative Negative - 2000(20) ++++ mg/dL [facility] Spec Grav, UA 1.01 1 - 1.03 [facility] Urobilinogen, UA 1.0 0.2 - 12 mg/dL [facility] US OB BPP W NON-STRESS on 06-05-2025 [place] [address] Ultrasound Report Signed Patient: CARMELITA CASON MR#: [id number] : 1990 Acct:[id number] Age/Sex: 34 / F ADM Date: 06/05/25 Loc: US Attending Dr: Mee Pringle D.O. Ordering Physician: Mee Pringle D.O. Date of Service: 06/05/25 Procedure(s): US OB BPP w non-stress Accession Number(s): [id number] cc: ROMEO GAR ; Mee Pringle D.O. The [place] [address] Patient Name: CARMELITA CASON MRN: [id number]:[id number] date: 1990 Sex: F Assigned Patient Location: US Current Patient Location: Accession/Order Number: [id number] Exam Date: 06/05/2025 11:53 Report Date: 06/05/2025 12:03 At the request of: MEE PRINGLE DO Procedure: US OB BPP w non-stress Biophysical profile. Reason for exam: History of opioid abuse COMPARISON: None TECHNIQUE: Transabdominal imaging of the gravid uterus was obtained. FINDINGS: The technical developer reports a BPP of 8 out of 8. ELIZABETH is normal at 21 cm. heart rate 135 bpm. US/US OB BPP w non-stress IMPRESSION: BPP 8 out of 8. Impression dictated by: Serafin Sorto Jr., D.O. 06/05/2025 12:03 PM Dictation Location: [place] [address] Electronically authenticated by: [id number] Y Date: 06/05/2025 12:03 Dictated By: Serafin Sorto M.D. Signed By: 06/05/25 1206 DD/ 02 TD/TT: Revenue Analyst: [facility] Radiology, Radiologist, - 06/05/2025 [place] [address] Ultrasound Report Signed Patient: CARMELITA CASON MR#: [id number] : 1990 Acct:[id number] Age/Sex: 34 / F ADM Date: 06/05/25 Loc: US Attending Dr: Mee Pringle D.O. Ordering Physician: Mee Pringle D.O. Date of Service: 06/05/25 Procedure(s): US OB BPP w non-stress Accession Number(s): [id number] cc: ROMEO GAR ; Mee Pringle D.O. The [place] [address] Patient Name: CARMELITA CASON MRN: [facility]:[id number] date: 1990 Sex: F Assigned Patient Location: US Current Patient Location: Accession/Order Number: [id number] Exam Date: 06/05/2025 11:53 Report Date: 06/05/2025 12:03 At the request of: MEE PRINGLE DO Procedure: US OB BPP w non-stress Biophysical profile. Reason for exam: History of opioid abuse COMPARISON: None TECHNIQUE: Transabdominal imaging of the gravid uterus was obtained. FINDINGS: The technical developer reports a BPP of 8 out of 8. ELIZABETH is normal at 21 cm. heart rate 135 bpm. US/US OB BPP w non-stress IMPRESSION: BPP 8 out of 8. Impression dictated by: Serafin Sorto Jr., D.O. 06/05/2025 12:03 PM Dictation Location: [place] [address] Electronically authenticated by: [id number] Y Date: 06/05/2025 12:03 Dictated By: Serafin Sorto M.D. Signed By: 06/05/25 1206 DD/ 02 TD/TT: Revenue Analyst: [facility] Radiology Study observation (narrative) [facility] US OB BPP W NON-STRESS Ordered By: Radiologist Radiology on 06-05-2025 [facility] Work Phone: CBC without diffOrdered By: Paradise Raya on 05-21-2025 Hematocrit (Bld) [Volume fraction] 30.6 % [facility] Hemoglobin (Bld) [Mass/Vol] 10.8 g/dL [facility] Platelets (Bld) [#/Vol] 176 10*3/uL [facility] Rbc Mcv (Fl) By Automated Count 79.3 [facility] Drug Screen, Urineon 025 Amphetamine/Methamphet amine Negative [facility] Barbiturates Negative [facility] Benzodiazepines Negative [facility] Cocaine Metabolite Negative [facility] Methadone Negative [facility] Opiates Negative [facility] Oxycodone Negative [facility] Phencyclidine Negative [facility] Thc Marijuana, Urine Negative [facility] HBV surface Ag IA Qlon 05-21 Hepatitis B Surface Antigen Negative [facility] HCV Ab IA Qlon 05-21-2025 HCV Ab Ql (S) Reactive [facility] HIV 1+2 Ab+HIV1 p24 Ag IA Ql on 05-21-2025 HIV 1&2 AB/AG Non-Reactive [facility] Hemoglobin A1con 05-21-2025 HbA1c (Bld) [Mass fraction] 4.7 % 4.0 - 6.0 % [facility] No Panel Informationon 05-21 [facility] Rubella IGG immune statuson 05-21-[address] [facility] T. pallidum IgG+IgM IA Ql (S )on 05-21-2025 Syphilis Non-Reactive [facility] DRUG SCREEN RAPID (URINE )on 05-21-2025 AMPHETAMINE SCREEN URINE Negative NEGATIVE [facility] BARBITURATES SCREEN URINE Negative NEGATIVE [facility] BENZODIAZEPINES SCREEN URINE Negative NEGATIVE [facility] BUPRENORPHINE SCREEN URINE Positive Abnormal NEGATIVE [facility] Comment on above: DRUG CLASS TEST SYST [...] 300 ng/mL CANNABINOID SCREEN URINE Negative NEGATIVE [facility] COCAINE SCREEN URINE Negative NEGATIVE [facility] Interpretation and review of laboratory results Abnormal [facility] METHADONE SCREEN URINE Negative NEGATIVE NO [facility] METHAMPHETAMINES SCREEN URINE Negative NEGATIVE [facility] OPIATE SCREEN URINE Negative NEGATIVE [facility] OXYCODONE SCREEN URINE Negative NEGATIVE NO [facility] PHENCYCLIDINE SCREEN URINE Negative NEGATIVE [facility] TRICYCLIC ANTIDEPRESSANT URINE Negative NEGATIVE [facility] Type and screenon 05-21-2025 Abo/Rh(D) Positive [facility] Urinalysis macro (dipstick) panel (U)on 05-16-2025 Bilirubin, UA Negative Negative - 4(70) +++ mg/dL [facility] Blood, UA Negative Negative - 50 Amador/mcL [facility] Clarity, UA Clear [facility] Color, UA Yellow [facility] Glucose, UA Negative Negative - 1999(110) ++++ mg/dL [facility] Interpretation and review of laboratory results Abnormal [facility] Ketones, UA Negative Negative - 160(16) ++++ mg/dL [facility] Leukocytes, UA Moderate Negative - 500+++ Camille/mcL [facility] Nitrite, UA Negative Negative - Positive [facility] pH, UA 6.5 5 - 9 [facility] Protein, UA Negative Negative - 1999(20) ++++ mg/dL [facility] Spec Grav, UA 1.02 1 - 1.03 [facility] Urobilinogen, UA 1.0 0.2 - 12 mg/dL [facility] Urinalysis macro (dipstick) panel (U)on 04-18-2025 Bilirubin, UA Negative Negative - 4(70) +++ mg/dL [facility] Blood, UA Negative Negative - 50 Amador/mcL [facility] Clarity, UA Clear [facility] Color, UA Yellow [facility] Glucose, UA Negative Negative - 1999(110) ++++ mg/dL [facility] Interpretation and review of laboratory results Abnormal [facility] Ketones, UA Negative Negative - 160(16) ++++ mg/dL [facility] Leukocytes, UA Positive Negative - 500+++ Camille/mcL [facility] Nitrite, UA Negative Negative - Positive [facility] pH, UA 7.5 5 - 9 [facility] Protein, UA Negative Negative - 2000(20) ++++ mg/dL [facility] Spec Grav, UA 1.015 1 - 1.03 [facility] Urobilinogen, UA 0.2 0.2 - 12 mg/dL [facility] No Panel InformationOrdered By: Radiologist Radiology on 04-09-2025 [facility] Work Phone: No Panel Informationon 04-09 Radiology Study observation (narrative) [facility] US OB ANATOMYon 04-09-2025 [place] [id number] Ultrasound Report Signed Patient: CARMELITA CASON MR#: [id number] : 1990 Acct:[id number] Age/Sex: 34 / F ADM Date: 04/09/25 Loc: US Attending Dr: Paradise Olvera Ordering Physician: Paradise Olvera Date of Service: 04/09/25 Procedure(s): US OB anatomy Accession Number(s): [id number] cc: Paradise Olvera; ROMEO GAR [place] [id number] Patient Name: CARMELITA CASON MRN: [id number]:[id number] date: 1990 Sex: F Assigned Patient Location: US Current Patient Location: US Accession/Order Number: [id number] Exam Date: 04/09/2025 12:20 Report Date: 04/09/2025 [...] all 4 extremities were surveyed by the technical developer. No abnormalities were detected. The stomach, bladder, [...] Zelaya M.D. 04/09/2025 1:01 PM Dictation Location: [place] [address] Electronically authenticated by: [id number] Y Date: 04/09/2025 13:01 Dictated By: Raine Zelaya M.D. Signed By: 04/09/25 1304 DD/ 1301 TD/TT: Revenue Analyst: [facility] Radiology, Radiologist, MD - 04/09/2025 [place] [address] Ultrasound Report Signed Patient: CARMELITA CASON MR#: [id number] : 1990 Acct:[id number] Age/Sex: 34 / F ADM Date: 04/09/25 Loc: US Attending Dr: Paradise Olvera Ordering Physician: Paradise Olvera Date of Service: 04/09/25 Procedure(s): US OB anatomy Accession Number(s): [id number] cc: Paradise Olvera; ROMEO GAR The [address] [address] Patient Name: CARMELITA CASON MRN: [id number]:[id number] date: 1990 Sex: F Assigned Patient Location: Current Patient Location: US Accession/Order Number: [id number] Exam Date: 04/09/2025 12:20 Report Date: 04/09/2025 [...] all 4 extremities were surveyed by the technical developer. No abnormalities were detected. The stomach, bladder, [...] Zelaya M.D. 04/09/2025 1:01 PM Dictation Location: [place] [address] Electronically authenticated by: [id number] Y Date: 04/09/2025 13:01 Dictated By: Raine Zelaya M.D. Signed By: 04/09/25 1304 DD/ 1301 TD/TT: Revenue Analyst[facility] OB CERVICAL LENGTHon [address] [address] Ultrasound Report Signed Patient: CARMELITA CASON MR#: [id number] : 1990 Acct:[id number] Age/Sex: 34 / F ADM Date: 04/09/25 Loc: US Attending Dr: Paradise Olvera Ordering Physician: Paradise Olvera Date of Service: 04/09/25 Procedure(s): US OB cervical length Accession Number(s): [id number] cc: Paradise Olvera; ROMEO GAR [address] [address] Patient Name: CARMELITA CASON MRN: [id number]:[id number] date: 1990 Sex: F Assigned Patient Location: Current Patient Location: Accession/Order Number: [id number] Exam Date: 04/09/2025 12:20 Report Date: 04/09/2025 [...] all 4 extremities were surveyed by the technical developer. No abnormalities were detected. The stomach, bladder, [...] Zelaya M.D. 04/09/2025 1:01 PM Dictation Location: [place] [address] Electronically authenticated by: [id number] Y Date: 04/09/2025 13:01 Dictated By: Raine Zelaya M.D. Signed By: 04/09/25 1304 DD/ 1301 TD/TT: Revenue Analyst: [facility] Radiology, Radiologist, MD - 04/09/2025 [place] [address] Ultrasound Report Signed Patient: CARMELITA CASON MR#: [id number] : 1990 Acct:[id number] Age/Sex: 34 / F ADM Date: 04/09/25 Loc: US Attending Dr: Paradise Olvera Ordering Physician: Paradise Olvera Date of Service: 04/09/25 Procedure(s): US OB cervical length Accession Number(s): [id number] cc: Paradise Olvera; ROMEO GAR The [place] [address] Patient Name: CARMELITA CASON MRN: [facility]:[id number] date: 1990 Sex: F Assigned Patient Location: US Current Patient Location: US Accession/Order Number: [id number] Exam Date: 04/09/2025 12:20 Report Date: 04/09/2025 [...] all 4 extremities were surveyed by the technical developer. No abnormalities were detected. The stomach, bladder, [...] Zelaya M.D. 04/09/2025 1:01 PM Dictation Location: [place] [address] Electronically authenticated by: [id number] Y Date: 04/09/2025 13:01 Dictated By: Raine Zelaya M.D. Signed By: 04/09/25 1304 DD/ 1301 TD/TT: Revenue Analyst: [facility] HCG ( test) Ql (U)O rdered By: Arabella Hill on 04-06-2025 Interpretation and review of laboratory results Abnormal [facility] Preg Test, Ur Positive Negative [facility] Urinalysis macro (dipstick) panel (U)on 04-06-2025 Bilirubin, UA Negative Negative - 4(70) +++ mg/dL [facility] Blood, UA Negative Negative - 50 Amador/mcL [facility] Clarity, UA Clear [facility] Color, UA Yellow [facility] Glucose, UA Negative Negative - 2000(110) ++++ mg/dL [facility] Interpretation and review of laboratory results Normal [facility] Ketones, UA Negative Negative - 160(16) ++++ mg/dL [facility] Leukocytes, UA Negative Negative - 500+++ Camille/mcL [facility] Nitrite, UA Negative Negative - Positive [facility] pH, UA 6.5 5 - 9 [facility] Protein, UA Negative Negative - 2000(20) ++++ mg/dL [facility] Spec Grav, UA 1.02 1 - 1.03 [facility] Urobilinogen, UA 1.0 0.2 - 12 mg/dL [facility] US OB L= 14 [place] [address] Ultrasound Report Signed Patient: CARMELITA CASON MR#: [id number] : 1990 Acct:[id number] Age/Sex: 34 / F ADM Date: 01/22/25 Loc: US Attending Dr: Mee Pringle D.O. Ordering Physician: Mee Pringle D.O. Date of Service: 01/22/25 Procedure(s): US OB <= 14 weeks fetus Accession Number(s): [id number] cc: ROMEO GAR ; Mee Pringle D.O. [place] [address] Patient Name: CARMELITA CASON MRN: [id number] date: 1990 Sex: F Assigned Patient Location: Current Patient Location: US Accession/Order Number: [id number] Exam Date: 01/22/2025 14:49 Report Date: 01/22/2025 [...] D.O.01/22/2025 2:50 PM Dictation Location: [place] [address] Electronically authenticated by: [id number] Y Date: 01/22/2025 14:50 Dictated By: Serafin Sorto M.D. Signed By: 01/22/25 1450 DD/ 1450 TD/TT: Revenue Analyst: [facility] Radiology, Radiologist, MD - 01/22/2025 [place] [address] Ultrasound Report Signed Patient: CARMELITA CASON MR#: [id number] : 1990 Acct:[id number] Age/Sex: 34 / F ADM Date: 01/22/25 Loc: US Attending Dr: Mee Pringle D.O. Ordering Physician: Mee Pringle D.O. Date of Service: 01/22/25 Procedure(s): US OB <= 14 weeks fetus Accession Number(s): [id number] cc: ROMEO GAR ; Mee Pringle D.O. [place] [id number] Patient Name: CARMELITA CASON MRN: [facility]:[id number] date: 1990 Sex: F Assigned Patient Location: Current Patient Location: Accession/Order Number: [id number] Exam Date: 01/22/2025 14:49 Report Date: 01/22/2025 [...] Sorto Jr., D.O.01/22/2025 2:50 PM Dictation Location: [facility]18 Electronically authenticated by: [id number] Y Date: 01/22/2025 14:50 Dictated By: Serafin Sorto M.D. Signed By: 01/22/25 1453 DD/ 145 TD/TT: Revenue Analyst: [facility] Radiology Study observation (narrative) [facility] US OB L= 14 WEEKS FETUSOrder ed By: Radiologist Radiology on 01-22-2025 [facility] Work Phone: [facility] PREG QUANT HCGon 025 HCG QUANTITATIVE 3026 mIU/mL [facility] Comment on above: 5-50 0.2-1 WEEK 50-500 1-2 WEEKS 100-5,000 2-3 WEEKS 500-10,000 3-4 WEEKS 1,000-50,000 4-5 WEEKS 10,000-100,000 5-6 WEEKS 15,000-200,000 6-8 WEEKS 10,000-100,000 2-3 MONTHS CLINISYNC [facility] COMPLIANCE DRUG SCREENon PDF . Normal [facility] Comment on above: Performed By: #### D ILOAL #### [facility] [address] [place] [address] Dr. Roberto Parmar Summary FINAL Normal [facility] Comment on above: Result Comment: ===== TOXASSURE [...] is an expected metabolite of dextromethorphan, an jnac-wpb-zjpghjj or prescription cough suppressant. Levorphanol is a scheduled prescription medication. Dextrorphan cannot be distinguished from levorphanol by the method used for analysis. Guaifenesin PRESENT UNEXPECTED Guaifenesin may be administered as an ucqt-wro-xmcasur or prescription drug; it may also be [...] ===== Performed By: #### D SDOALC #### [facility] [address] [place] [address] Dr. Roberto Parmar URIC ACID RAND URINEon 09-03 Uric Acid, Urine 12.4 mg/dL Normal Not Estab. [facility] Comment on above: Performed By: #### U RICUR #### [facility] [address] [place] [address] Dr. Roberto Parmar DRUG SCREEN RAPID (URINE)on 09-02-2022 AMP Negative Normal NEGATIVE [facility] Comment on above: Performed By: #### D RUGRPD #### [facility] [address] [place] [address] Dr. Roberto Parmar BAR Negative Normal NEGATIVE [facility] Comment on above: Performed By: #### D RUGRPD #### [facility] [address] [place] [address] Dr. Roberto Parmar BUP Positive Abnormal NEGATIVE [facility] Comment on above: Performed By: #### D RUGRPD #### [facility] [address] [place] [address] Dr. Roberto Parmar BZO Positive Abnormal NEGATIVE [facility] Comment on above: Performed By: #### D RUGRPD #### [facility] [address] [place] [address] Dr. Roberto Parmar BRITTANY Negative Normal NEGATIVE [facility] Comment on above: Performed By: #### D RUGRPD #### [facility] [address] [place] [address] Dr. Roberto Parmar CUT-OFFS SEE BELOW Normal [facility] Comment on above: Result Comment: AMP [...] ng/mL Performed By: #### D RUGRPD #### [facility] [address] [place] [address] Dr. Roberto Parmar DRUG CUT HEADER DRUG CLASS TEST SYSTEM CUT-OFF CONCENTRATIONS ARE FOLLOWS: Normal [facility] Comment on above: Performed By: #### D RUGRPD #### [facility] [address] [place] [address] Dr. Roberto Parmar mAMP Negative Normal NEGATIVE [facility] Comment on above: Performed By: #### D RUGRPD #### [facility] [address] [place] [address] Dr. Roberto Parmar MTD Negative Normal NEGATIVE [facility] Comment on above: Performed By: #### D RUGRPD #### [facility] [address] [place] [address] Dr. Roberto Parmar OPI Negative Normal NEGATIVE [facility] Comment on above: Performed By: #### D RUGRPD #### [facility] [address] [place] [address] Dr. Roberto Parmar OXY Negative Normal NEGATIVE [facility] Comment on above: Performed By: #### D RUGRPD #### [facility] [address] [place] [address] [address] Roberto Parmar PCP Negative Normal NEGATIVE [facility] Comment on above: Performed By: #### D RUGRPD #### [facility] [address] [place] [address] [address] Roberto Parmar PPX Negative Normal NEGATIVE [facility] Comment on above: Performed By: #### D RUGRPD #### [facility] [address] [place] [address] [address] Roberto Parmar TCA Negative Normal NEGATIVE [facility] Comment on above: Performed By: #### D RUGRPD #### [facility] [address] [place] [address] [address] Roberto Parmar THC Negative Normal NEGATIVE [facility] Comment on above: Performed By: #### D RUGRPD #### [facility] [address] [place] [address] [address] Roberto Parmar US PELVIS AND TRANSVAGon [...] Comment on above: Performed By: #### [id number] #### [facility] [address] [place] [address] Dr. Roberto Parmar Age Gdln ACOG Testing [age] [facility] Comment on above: Performed By: #### 4 [id number] #### [facility] [address] [place] [address] [address] Roberot Parmar DIAGNOSIS: Comment [facility] Comment on above: Result Comment: NEGA TIVE FOR INTRAEPITHELIAL LESION OR MALIGNANCY. Performed By: #### 4 [id number] #### [facility] [address] [place] [address] Dr. Roberto Parmar Methodology: Comment [facility] Comment on above: Result Comment: This liquid based ThinPrep(R) pap test was screened with the use of an image guided system. Performed By: #### [id number] #### [facility] [address] [place] [address] Dr. Roberto Parmar Note: Comment [facility] Comment on above: Result Comment: The Pap smear is a screening test designed to aid in the detection of premalignant and malignant conditions of the uterine cervix. It is not a diagnostic procedure and should not be used as the sole means of detecting cervical cancer. Both false-positive and false-negative reports do occur. . Performed By: #### 4 [id number] #### [facility] [address] [place] [address] Dr. Roberto Parmar Performed by: Comment Normal [facility] Comment on above: Result Comment: [employer] (AS[employer]) Performed By: #### 4 [id number] #### [facility] [address] [place] [address] Dr. Roberto Parmar Reflex Criteria: Comment [facility] Comment on above: Result Comment: The HPV DNA reflex criteria were not met with this specimen result therefore, no HPV testing was performed. . Performed By: #### 4 [id number] #### [facility] [address] [place], [place] [address] Dr. Roberto Parmar Specimen adequacy: Comment Normal [facility] Comment on above: Result Comment: Sati sfactory for evaluation. Endocervical and/or squamous metaplastic cells (endocervical component) are present. Performed By: #### 4 [id number] #### [facility] [address] [place] [id number] Roberto Parmar CBCon 12-06-2020 Erythrocyte distribution width (RBC) [Ratio] 13.6 % Normal 11.8-14.4 [facility] Comment on above: Performed By: #### P HEP, HIVCMB #### [address] [address] Office Cashier: Alvino Davila MD #### CP, CBC, HCG #### [facility] [address] [place] [address] [place] [id number] Office Cashier: Luis A Peng MD Hematocrit (Bld) [Volume fraction] 44.1 % Normal 36.3-47.1 [facility] Comment on above: Performed By: #### P HEP, HIVCMB #### [address] [id number] Office Cashier: Alvino Davila MD #### CP, CBC, HCG #### [facility] [address] [place] [address] Dr. [place] [id number] Office Cashier: Luis A Peng MD Hemoglobin (Bld) [Mass/Vol] 14.1 g/dL Normal 11.9-15.1 [facility] Comment on above: Performed By: #### P HEP, HIVCMB #### [address] [id number] Office Cashier: Alvino Davila MD #### CP, CBC, HCG #### [facility] [address] [place] [id number] Office Cashier: Luis A Peng MD MCH (RBC) [Entitic mass] 25.4 pg Normal 25.2-33.5 [facility] Comment on above: Performed By: #### P HEP, HIVCMB #### [address] [id number] Office Cashier: Alvino Davila MD #### CP, CBC, HCG #### [address] [place] [id number] Office Cashier: Luis A Peng MD MCHC (RBC) [Mass/Vol] 32.0 g/dL Normal 28.4-34.[address] [facility] Comment on above: Performed By: #### P HEP, HIVCMB #### [address] [address] Office Cashier: Alvino Davila MD #### CP, CBC, HCG #### [address] [place] [id number] Office Cashier: Luis A Peng MD MCV (RBC) [Entitic vol] 79.5 fL Low 82.6-102.9 [facility] Comment on above: Performed By: #### P HEP, HIVCMB #### [address] [address] Office Cashier: Alvino Davila MD #### CP, CBC, HCG #### [address] [place] [id number] Office Cashier: Luis A Peng MD NRBC Automated 0.0 per 100 WBC Normal 0.0 [facility] Comment on above: Performed By: #### P HEP, HIVCMB #### [place] [address] Office Cashier: Alvino Davila MD #### CP, CBC, HCG #### [address] [place] [address] Office Cashier: Luis A Peng MD Platelet mean volume (Bld) [Entitic vol] 11.8 fL Normal 8.1-13.5 [facility] Comment on above: Performed By: #### P HEP, HIVCMB #### [place] [address] [place] [address] Office Cashier: Alvino Davila MD #### CP, CBC, HCG #### [address] [place] [id number] Office Cashier: Luis A Peng MD Platelets (Bld) [#/Vol] 238 10*3/uL Normal 138-453 [facility] Comment on above: Performed By: #### P HEP, HIVCMB #### [address] [id number] Office Cashier: Alvino Davila MD #### CP, CBC, HCG #### [address] [place] [address] Office Cashier: Luis A Peng MD RBC (Bld) [#/Vol] 5.55 10*6/uL High 3.95-5.11 [facility] Comment on above: Performed By: #### P HEP, HIVCMB #### [place] [address] Office Cashier: Alvino Davila MD #### CP, CBC, HCG #### [address] [place] [id number] Office Cashier: Luis A Peng MD WBC (Bld) [#/Vol] 8.6 10*3/uL Normal 3.5-11.3 [facility] Comment on above: Performed By: #### P HEP, HIVCMB #### [address] [id number] Office Cashier: Alvino Davila MD #### CP, CBC, HCG #### [address] [place] [phone] Office Cashier: Luis A Peng MD Erythrocyte distribution width (RBC) [Ratio] 13.6 % 11.8 - 14.4 % [place] Hematocrit (Bld) [Volume fraction] 44.1 % 36.3 - 47.1 % [place] Hemoglobin (Bld) [Mass/Vol] 14.1 g/dL 11.9 - 15.1 g/dL [place] Interpretation and review of laboratory results Abnormal [place] MCH (RBC) [Entitic mass] 25.4 pg 25.2 - 33.5 pg [place] MCHC (RBC) [Mass/Vol] 32.0 g/dL 28.4 - 34.8 g/dL [place] MCV (RBC) [Entitic vol] 79.5 fL Low 82.6 - 102.9 fL [place] Platelet mean volume (Bld) [Entitic vol] 11.8 fL 8.1 - 13.5 fL [place], [place] Platelets (Bld) [#/Vol] 238 10*3/uL [place] RBC (Bld) [#/Vol] 5.55 10*6/uL High 3.95 - 5.1 1 m/uL [place] WBC (Bld) [#/Vol] 8.6 10*3/uL [place] WBC (Bld) [#/Vol] 0.0 10*3/uL 0.0 per 100 WBC M [place], [place] Comp Metabolic Profon 2020 (cont.) Normal [facility] Comment on above: Result Comment: Aver age GFR for 20-29 years old: 116 mL/min/1.73sq m Chronic Kidney Disease: <60 mL/min/1.73sq m Kidney failure: <15 mL/min/1.73sq m eGFR calculated using average adult body mass. Additional eGFR calculator available at: http://www.[employer]/multiple_crcl_2011.htm Performed By: #### P HEP, HIVCMB #### [facility] [place], [place] [id number] Office Cashier: Alvino Davila MD #### CP, CBC, HCG #### [facility] [address] [place] [address] Office Cashier: Luis A Peng MD Albumin [Mass/Vol] 4.6 g/dL Normal 3.5-5.2 [facility] Comment on above: Performed By: #### P HEP, HIVCMB #### [address] [address] Office Cashier: Alvino Davila MD #### CP, CBC, HCG #### [facility] [address] [place] [phone] Office Cashier: Luis A Peng MD Albumin/Globulin [Mass ratio] 1.6 {ratio} Normal 1.0-2.5 [facility] Comment on above: Performed By: #### P HEP, HIVCMB #### [address] [address] Office Cashier: Alvino Davila MD #### CP, CBC, HCG #### [facility] [address] [place] [address] Dr. [place] [id number] Office Cashier: Luis A Peng MD Alkaline Phos 81 U/L Normal 35-104 [facility] Comment on above: Performed By: #### P HEP, HIVCMB #### [address] [address] Office Cashier: Alvino Davila MD #### CP, CBC, HCG #### [facility] [address] [place] [phone] Office Cashier: Luis A Peng MD ALT [Catalytic activity/Vol] 39 U/L High 5-33 [facility] Comment on above: Performed By: #### P HEP, HIVCMB #### [address] [address] Office Cashier: Alvino Davila MD #### CP, CBC, HCG #### [facility] [address] [place], [place] [id number] Office Cashier: Luis A Peng MD Anion gap [Moles/Vol] 12 mmol/L Normal 9-[address] [facility] Comment on above: Performed By: #### P HEP, HIVCMB #### [facility] [address] [place] [address] Office Cashier: Alvino Davila MD #### CP, CBC, HCG #### [facility] [address] [place], [place] [id number] Office Cashier: Luis A Peng MD AST [Catalytic activity/Vol] 28 U/L Normal <32 [facility] Comment on above: Performed By: #### P HEP, HIVCMB #### [address] [address] Office Cashier: Alvino Davila MD #### CP, CBC, HCG #### [facility] [address] [place], [place] [id number] Office Cashier: Luis A Peng MD Bilirubin Ql (U) 0.26 mg/dL Low 0.3-1.2 [facility] Comment on above: Performed By: #### P HEP, HIVCMB #### [facility] [address] [place] [address] Office Cashier: Alvino Davila MD #### CP, CBC, HCG #### [facility] [address] [place], [place] [phone] Office Cashier: Luis A Peng MD BUN/CRE Ratio 14 Normal 9-20 [facility] Comment on above: Performed By: #### P HEP, HIVCMB #### [facility] [address] [place] [address] Office Cashier: Alvino Davila MD #### CP, CBC, HCG #### [facility] [address] [place] [address] Dr. [place], [place] [id number] Office Cashier: Luis A Peng MD Calcium [Mass/Vol] 10.1 mg/dL Normal 8.6-10.4 [facility] Comment on above: Performed By: #### P HEP, HIVCMB #### [address] [address] Office Cashier: Alvino Davila MD #### CP, CBC, HCG #### [address] [place], [place] 0333383 Office Cashier: Luis A Peng MD Chloride [Moles/Vol] 101 mmol/L Normal 98-107 [facility] Comment on above: Performed By: #### P HEP, HIVCMB #### [address] [address] Office Cashier: Alvino Davila MD #### CP, CBC, HCG #### [address] [place], [place] [id number] Office Cashier: Luis A Peng MD CO2 [Moles/Vol] 26 mmol/L Normal 20-31 [facility] Comment on above: Performed By: #### P HEP, HIVCMB #### [address] [address] Office Cashier: Alvino Davila MD #### CP, CBC, HCG #### [address] [place], [place] 1123783 Office Cashier: Luis A Peng MD Creatinine [Mass/Vol] 0.49 mg/dL Low 0.50-0.[address] [facility] Comment on above: Performed By: #### P HEP, HIVCMB #### [address] [address] Office Cashier: Alvino Davila MD #### CP, CBC, HCG #### [address] [place], [place] [phone] Office Cashier: Luis A Peng MD GFR, Amer >60 Normal >60 [facility] Comment on above: Performed By: #### P HEP, HIVCMB #### [address] [id number] Office Cashier: Alvino Davila MD #### CP, CBC, HCG #### [address] [place] [address] Office Cashier: Luis A Peng MD GFR,non Amer >60 Normal >60 [facility] Comment on above: Performed By: #### P HEP, HIVCMB #### [address] [address] Office Cashier: Alvino Davila MD #### CP, CBC, HCG #### [address] [place] [phone] Office Cashier: Luis A Peng MD Glucose [Mass/Vol] 101 mg/dL High 70-99 [facility] Comment on above: Performed By: #### P HEP, HIVCMB #### [address] [address] Office Cashier: Alvino Davila MD #### CP, CBC, HCG #### [address] [place] [phone] Office Cashier: Luis A Peng MD Potassium [Moles/Vol] 4.2 mmol/L Normal 3.7-5.[address] [facility] Comment on above: Performed By: #### P HEP, HIVCMB #### [address] [address] Office Cashier: Alvino Davila MD #### CP, CBC, HCG #### [address] [place] [address] Office Cashier: Luis A Peng MD Protein [Mass/Vol] 7.5 g/dL Normal 6.4-8.3 [facility] Comment on above: Performed By: #### P HEP, HIVCMB #### [address] [address] Office Cashier: Alvino Davila MD #### CP, CBC, HCG #### [address] [place] [address] Office Cashier: Luis A Peng MD Sodium [Moles/Vol] 139 mmol/L Normal 135-144 [facility] Comment on above: Performed By: #### P HEP, HIVCMB #### [address] [address] Office Cashier: Alvino Davila MD #### CP, CBC, HCG #### [address] [place] [phone] Office Cashier: Luis A Peng MD Staging: Normal [facility] Comment on above: Result Comment: Stag e 1: Some kidney damage normal GFR Stage 2: Mild kidney damage GFR 60-89 Stage 3: Moderate kidney damage GFR 30-59 Stage 4: Severe kidney damage GFR 15-29 Stage 5: Severe kidney damage GFR <15 ESRD - chronic treatment by dialysis or transplant Performed By: #### P HEP, HIVCMB #### [address] [address] Office Cashier: Alvino Davila MD #### CP, CBC, HCG #### [address] [place] [address] Office Cashier: Luis A Peng MD Urea nitrogen [Mass/Vol] 7 mg/dL Normal 6-20 [facility] Comment on above: Performed By: #### P HEP, HIVCMB #### [address] [address] Office Cashier: Alvino Davila MD #### CP, CBC, HCG #### [address] [place] [address] Office Cashier: Luis A Peng MD Comprehensive Metabolic Pane liu 12-06-2020 Albumin [Mass/Vol] 4.6 g/dL 3.5 - 5.2 g/dL [place], [place] Albumin/Globulin [Mass ratio] 1.6 {ratio} [place] ALP [Catalytic activity/Vol] 81 U/L 35 - 104 U/L [place] ALT [Catalytic activity/Vol] 39 U/L High 5 - 33 U/L [place] Anion gap [Moles/Vol] 12 mmol/L 9 - 17 mmol/L [place] AST [Catalytic activity/Vol] 28 U/L <32 [place] Bilirubin Ql (U) 0.26 mg/dL Low 0.3 - 1.2 mg/dL [place], [place] Bun/Cre Ratio 14 [place], [place] Calcium [Mass/Vol] 10.1 mg/dL 8.6 - 10. 4 mg/dL [place] Chloride [Moles/Vol] 101 mmol/L 98 - 107 mmol/L [place] CO2 [Moles/Vol] 26 mmol/L 20 - 31 mmol/L [place] Creatinine [Mass/Vol] 0.49 mg/dL Low 0.5 - 0.9 mg/d L [place] GFR >60 >60 mL/min [place], [place] GFR Non- >60 >60 mL/min [place] Glucose [Mass/Vol] 101 mg/dL High 70 - 99 mg/dL [place] Interpretation and review of laboratory results Abnormal [place] Potassium [Moles/Vol] 4.2 mmol/L 3.7 - 5.3 mmol/L [place] Protein [Mass/Vol] 7.5 g/dL 6.4 - 8.3 g/dL [place] Sodium [Moles/Vol] 139 mmol/L 135 - 144 mmol/L [place] Urea nitrogen [Mass/Vol] 7 mg/dL 6 - 20 mg/dL [place] HCG Qualitative, Serumon hCG Qual Negative NEGATIVE [place] Comment on above: Specimens with hCG l evels near the threshold of the test (25 mIU/mL) may give a negative or indeterminate result. In such cases, another test should be performed with a new specimen in 48-72 hours. If early is suspected clinically in this setting, correlation with quantitative serum b-hCG level is suggested. [facility] has confirmed the use of plasma for this test. This has not been cleared or approved by the U.S. Food and Drug Administration. The FDA has determined that such clearance is not necessary. HCG Screen, Bloodon 12-06-19 HCG Qn Negative Normal NEG [facility] Comment on above: Result Comment: Spec imens with hCG levels near the threshold of the test (25 mIU/mL) may give a negative or indeterminate result. In such cases, another test should be performed with a new specimen in 48-72 hours. If early is suspected clinically in this setting, correlation with quantitative serum b-hCG level is suggested. [facility] has confirmed the use of plasma for this test. This has not been cleared or approved by the U.S. Food and Drug Administration. The FDA has determined that such clearance is not necessary. Performed By: #### P HEP, HIVCMB #### [facility] [address] [place] [address] Office Cashier: Alvino Davila MD #### CP, CBC, HCG #### [facility] [address] [place] [address] Office Cashier: Luis A Peng MD HIV Ag/Abon 12-06-2020 HIV Ag/Ab NONREACTIVE Normal NR [facility] Comment on above: Result Comment: No l aboratory evidence of HIV infection. If acute HIV infection is suspected, consider testing for HIV-1 RNA. Performed By: #### P HEP, HIVCMB #### [facility] [address] [place] [address] Office Cashier: Alvino Davila MD #### CP, CBC, HCG #### [facility] [address] [place] [address] Dr. [place], [place] [id number] Office Cashier: Luis A Peng MD HIV Screenon 12-06-2020 HIV Ag/Ab NONREACTIVE NONREACTIVE [place], [place] Comment on above: No laboratory eviden ce of HIV infection. If acute HIV infection is suspected, consider testing for HIV-1 RNA. Hepatitis Acute [facility] 12-06 Hep A Ab,IgM NONREACTIVE Normal [facility] Comment on above: Performed By: #### P HEP, HIVCMB #### [address] [address] Office Cashier: Alvino Davila MD #### CP, CBC, HCG #### [address] [place] [address] Office Cashier: Luis A Peng MD Hep B Core Ab,IgM NONREACTIVE Normal [facility] Comment on above: Performed By: #### P HEP, HIVCMB #### [address] [address] Office Cashier: Alvino Davila MD #### CP, CBC, HCG #### [address] [place], [place] [phone] Office Cashier: Luis A Peng MD Hep B Surf Ag NONREACTIVE Normal [facility] Comment on above: Performed By: #### P HEP, HIVCMB #### [address] [address] Office Cashier: Alvino Davila MD #### CP, CBC, HCG #### [address] [place] [address] Office Cashier: Luis A Peng MD Hep C Ab REACTIVE Abnormal [facility] Comment on above: Result Comment: The [...] Performed By: #### P HEP, HIVCMB #### [facility] [address] [place] [address] Office Cashier: Alvino Davila MD #### CP, CBC, HCG #### [facility] [address] [place] [address] Office Cashier: Luis A Peng MD Hepatitis Panel, Acuteon HAV IgM IA Qn (S) NONREACTIVE NONREACTIVE [place] Hep B Core Ab, IgM NONREACTIVE NONREACTIVE [place], [place] Hepatitis B Surface Ag NONREACTIVE NONREACTIVE [place] Hepatitis C Ab REACTIVE Abnormal NONREACTIVE [place], [place] Comment on above: The hepatitis C [...] Interpretation and review of laboratory results Abnormal [place], [place] Metabolic Panelon 12-06-2020 GFR/1.73 sq M predicted among non-blacks MDRD (S/P/Bld) [Vol rate/Area] [place], [place] Comment on above: Stage 1: Some [...] body mass. Additional eGFR calculator available at: http://www.Reppler.Ontodia/multiple_crcl_2012.htm CBCon 07-30-2020 Erythrocyte distribution width (RBC) [Ratio] 12.7 % Normal 11.8-14.4 [facility] Comment on above: Performed By: #### C P, HCG, CBC #### [address] [place] [id number] Office Cashier: Luis A Peng MD #### HIVCMB, PHEP #### [address] [id number] Office Cashier: Alvino Davila MD Hematocrit (Bld) [Volume fraction] 39.2 % Normal 36.3-47.1 [facility] Comment on above: Performed By: #### C P, HCG, CBC #### [address] [place] [phone] Office Cashier: Luis A Peng MD #### HIVCMB, PHEP #### [address] [id number] Office Cashier: Alvino Davila MD Hemoglobin (Bld) [Mass/Vol] 12.3 g/dL Normal 11.9-15.1 [facility] Comment on above: Performed By: #### C P, HCG, CBC #### [address] [place] [phone] Office Cashier: Luis A Peng MD #### HIVCMB, PHEP #### [address] [id number] Office Cashier: Alvino Davila MD MCH (RBC) [Entitic mass] 26.2 pg Normal 25.2-33.5 [facility] Comment on above: Performed By: #### C P, HCG, CBC #### [address] [place] [address] Office Cashier: Luis A Peng MD #### HIVCMB, PHEP #### [address] [id number] Office Cashier: Alvino Davila MD MCHC (RBC) [Mass/Vol] 31.4 g/dL Normal 28.4-34.[address] [facility] Comment on above: Performed By: #### C P, HCG, CBC #### [facility] [address] [place] [address] [address]. [place] [phone] Office Cashier: Luis A Peng MD #### HIVCMB, PHEP #### [address] [id number] Office Cashier: Alvino Davila MD MCV (RBC) [Entitic vol] 83.6 fL Normal 82.6-102.9 [facility] Comment on above: Performed By: #### C P, HCG, CBC #### [address] [place] [phone] Office Cashier: Luis A Peng MD #### HIVCMB, PHEP #### [place] [id number] Office Cashier: Alvino Davila MD NRBC Automated 0.0 per 100 WBC Normal 0.0 [facility] Comment on above: Performed By: #### C P, HCG, CBC #### [facility] [address] [place] [address] [place] [phone] Office Cashier: Luis A Peng MD #### HIVCMB, PHEP #### [place] [address] Office Cashier: Alvino Davila MD Platelet mean volume (Bld) [Entitic vol] 10.9 fL Normal 8.1-13.5 [facility] Comment on above: Performed By: #### C P, HCG, CBC #### [address] [place] [phone] Office Cashier: Luis A Peng MD #### HIVCMB, PHEP #### [address], [place] [phone] Office Cashier: Alvino Davila MD Platelets (Bld) [#/Vol] 277 10*3/uL Normal 138-453 [facility] Comment on above: Performed By: #### C P, HCG, CBC #### [facility] [address] [place] [address] [place], [place] [phone] Office Cashier: Luis A Peng MD #### HIVCMB, PHEP #### [address] [id number] Office Cashier: Alvino Davila MD RBC (Bld) [#/Vol] 4.69 10*6/uL Normal 3.95-5.11 [facility] Comment on above: Performed By: #### C P, HCG, CBC #### [address] [place] [phone] Office Cashier: Luis A Peng MD #### HIVCMB, PHEP #### [address] [address] Office Cashier: Alvino Davila MD WBC (Bld) [#/Vol] 5.5 10*3/uL Normal 3.5-11.3 [facility] Comment on above: Performed By: #### C P, HCG, CBC #### [facility] [address] [place] [address] [place] [phone] Office Cashier: Luis A Peng MD #### HIVCMB, PHEP #### [address] [address] Office Cashier: Alvino Davila MD Erythrocyte distribution width (RBC) [Ratio] 12.7 % 11.8 - 14.4 % [place] Hematocrit (Bld) [Volume fraction] 39.2 % 36.3 - 47.1 % [place] Hemoglobin (Bld) [Mass/Vol] 12.3 g/dL 11.9 - 15.1 g/dL [place] MCH (RBC) [Entitic mass] 26.2 pg 25.2 - 33.5 pg [place] MCHC (RBC) [Mass/Vol] 31.4 g/dL 28.4 - 34.8 g/dL [place] MCV (RBC) [Entitic vol] 83.6 fL 82.6 - 102.9 fL [place] Platelet mean volume (Bld) [Entitic vol] 10.9 fL 8.1 - 13.5 fL [place], [place] Platelets (Bld) [#/Vol] 277 10*3/uL [place] RBC (Bld) [#/Vol] 4.69 10*6/uL 3.95 - 5.1 1 m/uL [place] WBC (Bld) [#/Vol] 5.5 10*3/uL [place] WBC (Bld) [#/Vol] 0.0 10*3/uL 0.0 per 100 WBC M [place], [place] Comp Metabolic Profon 2019 (cont.) Normal [facility] Comment on above: Result Comment: Aver age GFR for 20-29 years old: 116 mL/min/1.73sq m Chronic Kidney Disease: <60 mL/min/1.73sq m Kidney failure: <15 mL/min/1.73sq m eGFR calculated using average adult body mass. Additional eGFR calculator available at: http://www.Reppler.Ontodia/multiple_crcl_2011.htm Performed By: #### C P, HCG, CBC #### [facility] [address] [place] [address] Office Cashier: Luis A Peng MD #### HIVCMB, PHEP #### [address] [address] Office Cashier: Alvino Davila MD Albumin [Mass/Vol] 3.4 g/dL Low 3.5-5.2 [facility] Comment on above: Performed By: #### C P, HCG, CBC #### [facility] [address] [place], [place] 2240583 Office Cashier: Luis A Peng MD #### HIVCMB, PHEP #### [address] [phone] Office Cashier: Alvino Davila MD Albumin/Globulin [Mass ratio] 1.1 {ratio} Normal 1.0-2.5 [facility] Comment on above: Performed By: #### C P, HCG, CBC #### [facility] [address] [place], [place] [phone] Office Cashier: Luis A Peng MD #### HIVCMB, PHEP #### [address] [phone] Office Cashier: Alvino Davila MD Alkaline Phos 130 U/L High 35-104 [facility] Comment on above: Performed By: #### C P, HCG, CBC #### [address] [place], [place] [phone] Office Cashier: Luis A Peng MD #### HIVCMB, PHEP #### [address] [phone] Office Cashier: Alvino Davila MD ALT [Catalytic activity/Vol] 33 U/L Normal 5-33 [facility] Comment on above: Performed By: #### C P, HCG, CBC #### [address] [place], [place] 2030383 Office Cashier: Luis A Peng MD #### HIVCMB, PHEP #### [address] [address] Office Cashier: Alvino Davila MD Anion gap [Moles/Vol] 7 mmol/L Low 9-[address] [facility] Comment on above: Performed By: #### C P, HCG, CBC #### [address] [place] [phone] Office Cashier: Luis A Peng MD #### HIVCMB, PHEP #### [address] [phone] Office Cashier: Alvino Davila MD AST [Catalytic activity/Vol] 35 U/L High <32 [facility] Comment on above: Performed By: #### C P, HCG, CBC #### [facility] [address] [place] [address] Dr. [place] [phone] Office Cashier: Luis A Peng MD #### HIVCMB, PHEP #### [address] [phone] Office Cashier: Alvino Davila MD Bilirubin Ql (U) 0.16 mg/dL Low 0.3-1.2 [facility] Comment on above: Performed By: #### C P, HCG, CBC #### [address] [place] [phone] Office Cashier: Luis A Peng MD #### HIVCMB, PHEP #### [address] [address] Office Cashier: Alvino Davila MD BUN/CRE Ratio 14 Normal 9-20 [facility] Comment on above: Performed By: #### C P, HCG, CBC #### [address] [place] [phone] Office Cashier: Luis A Peng MD #### HIVCMB, PHEP #### [address] [address] Office Cashier: Alvino Davila MD Calcium [Mass/Vol] 9.2 mg/dL Normal 8.6-10.4 [facility] Comment on above: Performed By: #### C P, HCG, CBC #### [address] [place] [phone] Office Cashier: Luis A Peng MD #### HIVCMB, PHEP #### [place] [address] [place], [place] 4693908 Office Cashier: Alvino Davila MD Chloride [Moles/Vol] 99 mmol/L Normal 98-107 [facility] Comment on above: Performed By: #### C P, HCG, CBC #### [facility] [address] [place], [place] [phone] Office Cashier: Luis A Peng MD #### HIVCMB, PHEP #### [address] [phone] Office Cashier: Alvino Davila MD CO2 [Moles/Vol] 29 mmol/L Normal 20-31 [facility] Comment on above: Performed By: #### C P, HCG, CBC #### [facility] [address] [place] [address] Dr. [place] [phone] Office Cashier: Luis A Peng MD #### HIVCMB, PHEP #### [address] [phone] Office Cashier: Alvino Davila MD Creatinine [Mass/Vol] 0.63 mg/dL Normal 0.50-0.[address] [facility] Comment on above: Performed By: #### C P, HCG, CBC #### [facility] [address] [place] [address] [place] [address] Office Cashier: Luis A Peng MD #### HIVCMB, PHEP #### [address] [phone] Office Cashier: Alvino Davila MD GFR, Amer >60 Normal >60 [facility] Comment on above: Performed By: #### C P, HCG, CBC #### [facility] [address] [place] [address] Office Cashier: Luis A Peng MD #### HIVCMB, PHEP #### [address] [phone] Office Cashier: Alvino Davila MD GFR,non Amer >60 Normal >60 [facility] Comment on above: Performed By: #### C P, HCG, CBC #### [facility] [address] [place], [place] 1406083 Office Cashier: Luis A Peng MD #### HIVCMB, PHEP #### [address] [address] Office Cashier: Alvino Davila MD Glucose [Mass/Vol] 95 mg/dL Normal 70-99 [facility] Comment on above: Performed By: #### C P, HCG, CBC #### [facility] [address] [place] [address] Dr. [place], [place] [phone] Office Cashier: Luis A Peng MD #### HIVCMB, PHEP #### [address] [address] Office Cashier: Alvino Davila MD Potassium [Moles/Vol] 4.3 mmol/L Normal 3.7-5.[address] [facility] Comment on above: Performed By: #### C P, HCG, CBC #### [facility] [address] [place] [address] Dr. [place], [place] [phone] Office Cashier: Luis A Peng MD #### HIVCMB, PHEP #### [address] [address] Office Cashier: Alvino Davila MD Protein [Mass/Vol] 6.5 g/dL Normal 6.4-8.3 [facility] Comment on above: Performed By: #### C P, HCG, CBC #### [facility] [address] [place] [address] [place], [place] [phone] Office Cashier: Luis A Peng MD #### HIVCMB, PHEP #### [address] [place] [address] Office Cashier: Alvino Davila MD Sodium [Moles/Vol] 135 mmol/L Normal 135-144 [facility] Comment on above: Performed By: #### C P, HCG, CBC #### [facility] [address] [place] [address] [place], [place] [phone] Office Cashier: Luis A Peng MD #### HIVCMB, PHEP #### [place] [address] [place] [address] Office Cashier: Alvino Davila MD Staging: Normal [facility] Comment on above: Result Comment: Stag e 1: Some kidney damage normal GFR Stage 2: Mild kidney damage GFR 60-89 Stage 3: Moderate kidney damage GFR 30-59 Stage 4: Severe kidney damage GFR 15-29 Stage 5: Severe kidney damage GFR <15 ESRD - chronic treatment by dialysis or transplant Performed By: #### C P, HCG, CBC #### [facility] [address] [place] [address] [place], [place] [phone] Office Cashier: Luis A Peng MD #### HIVCMB, PHEP #### [address] [address] Office Cashier: Alvino Davila MD Urea nitrogen [Mass/Vol] 9 mg/dL Normal 6-20 [facility] Comment on above: Performed By: #### C P, HCG, CBC #### [facility] [address] [place] [address] [place], [place] [phone] Office Cashier: Luis A Peng MD #### HIVCMB, PHEP #### [address] [address] Office Cashier: Alvino Davila MD Comprehensive Metabolic Pane liu 05-30-2020 Albumin [Mass/Vol] 3.4 g/dL Low 3.5 - 5.2 g/dL [place], [place] Albumin/Globulin [Mass ratio] 1.1 {ratio} [place] ALP [Catalytic activity/Vol] 130 U/L High 35 - 104 U/L [place] ALT [Catalytic activity/Vol] 33 U/L 5 - 33 U/L [place] Anion gap [Moles/Vol] 7 mmol/L Low 9 - 17 mmol/L [place] AST [Catalytic activity/Vol] 35 U/L High <32 [place] Bilirubin Ql (U) 0.16 mg/dL Low 0.3 - 1.2 mg/dL [place], [place] Bun/Cre Ratio 14 [place], [place] Calcium [Mass/Vol] 9.2 mg/dL 8.6 - 10. 4 mg/dL [place] Chloride [Moles/Vol] 99 mmol/L 98 - 107 mmol/L [place] CO2 [Moles/Vol] 29 mmol/L 20 - 31 mmol/L [place] Creatinine [Mass/Vol] 0.63 mg/dL 0.5 - 0.9 mg/d L [place] GFR >60 >60 mL/min [place] GFR Non- >60 >60 mL/min [place] Glucose [Mass/Vol] 95 mg/dL 70 - 99 mg/dL [place] Interpretation and review of laboratory results Abnormal [place] Potassium [Moles/Vol] 4.3 mmol/L 3.7 - 5.3 mmol/L [place] Protein [Mass/Vol] 6.5 g/dL 6.4 - 8.3 g/dL [place] Sodium [Moles/Vol] 135 mmol/L 135 - 144 mmol/L [place] Urea nitrogen [Mass/Vol] 9 mg/dL 6 - 20 mg/dL [place] HCG Qualitative, Serumon hCG Qual Negative NEGATIVE [place] Comment on above: Specimens with hCG l evels near the threshold of the test (25 mIU/mL) may give a negative or indeterminate result. In such cases, another test should be performed with a new specimen in 48-72 hours. If early is suspected clinically in this setting, correlation with quantitative serum b-hCG level is suggested. [facility] has confirmed the use of plasma for this test. This has not been cleared or approved by the U.S. Food and Drug Administration. The FDA has determined that such clearance is not necessary. HCG Screen, Bloodon 05-30-20 20 HCG Qn Negative Normal NEG [facility] Comment on above: Result Comment: Spec imens with hCG levels near the threshold of the test (25 mIU/mL) may give a negative or indeterminate result. In such cases, another test should be performed with a new specimen in 48-72 hours. If early is suspected clinically in this setting, correlation with quantitative serum b-hCG level is suggested. [facility] has confirmed the use of plasma for this test. This has not been cleared or approved by the U.S. Food and Drug Administration. The FDA has determined that such clearance is not necessary. Performed By: #### C P, HCG, CBC #### [facility] [address] [place] [address] [place] [address] Office Cashier: Luis A Peng MD #### HIVCMB, PHEP #### [place] [id number] [place] [address] Office Cashier: Alvino Davila MD HIV Ag/Abon 05-30-2020 HIV Ag/Ab NONREACTIVE Normal NR [facility] Comment on above: Result Comment: No l aboratory evidence of HIV infection. If acute HIV infection is suspected, consider testing for HIV-1 RNA. Performed By: #### C P, HCG, CBC #### [facility] [address] [place] [address] [place] [address] Office Cashier: Luis A Peng MD #### HIVCMB, PHEP #### [facility] [address] [place], [place] [phone] Office Cashier: Alvino Davila MD HIV Screenon 05-30-2020 HIV Ag/Ab NONREACTIVE NONREACTIVE [place] Comment on above: No laboratory eviden ce of HIV infection. If acute HIV infection is suspected, consider testing for HIV-1 RNA. Hepatitis Acute [facility] 05-30 Hep A Ab,IgM NONREACTIVE Normal NR [facility] Comment on above: Performed By: #### C P, HCG, CBC #### [facility] [address] [place] [address] Office Cashier: Luis A Peng MD #### HIVCMB, PHEP #### [address] [phone] Office Cashier: Alvino Davila MD Hep B Core Ab,IgM NONREACTIVE Normal [facility] Comment on above: Performed By: #### C P, HCG, CBC #### [address] [place] [phone] Office Cashier: Luis A Peng MD #### HIVCMB, PHEP #### [address] [phone] Office Cashier: Alvino Davila MD Hep B Surf Ag NONREACTIVE Normal NR [facility] Comment on above: Performed By: #### C P, HCG, CBC #### [address] [place] [phone] Office Cashier: Luis A Peng MD #### HIVCMB, PHEP #### [address] [phone] Office Cashier: Alvino Davila MD Hep C Ab NONREACTIVE Normal [facility] Comment on above: Result Comment: The [...] By: #### C P, HCG, CBC #### [address] [place] [address] Office Cashier: Luis A ePng MD #### HIVCMB, PHEP #### [facility] [address] [place], [place] [phone] Office Cashier: Alvino Davila MD Hepatitis Panel, Acuteon HAV IgM IA Qn (S) NONREACTIVE NONREACTIVE [place] Hep B Core Ab, IgM NONREACTIVE NONREACTIVE [place] Hepatitis B Surface Ag NONREACTIVE NONREACTIVE [place] Hepatitis C Ab NONREACTIVE NONREACTIVE [place] Comment on above: The hepatitis C [...] predicted among non-blacks MDRD (S/P/Bld) [Vol rate/Area] [place], [place] Comment on above: Stage 1: Some [...] body mass. Additional eGFR calculator available at: http://www.Reppler.Ontodia/multiple_crcl_2012.htm CBCon 01-01-2020 Erythrocyte distribution width (RBC) [Ratio] 12.5 % Normal 11.8-14.4 [facility] Comment on above: Performed By: #### P HEP, HIVCMB #### [facility] [address] [place], [place] [phone] Office Cashier: Alvino Davila MD #### CP, CBC, HCG #### [facility] [address] [place], [place] [phone] Office Cashier: Luis A Peng MD Hematocrit (Bld) [Volume fraction] 40.2 % Normal 36.3-47.1 [facility] Comment on above: Performed By: #### P HEP, HIVCMB #### [address] [id number] Office Cashier: Alvino Davila MD #### CP, CBC, HCG #### [address] [place] [phone] Office Cashier: Luis A Peng MD Hemoglobin (Bld) [Mass/Vol] 13.1 g/dL Normal 11.9-15.1 [facility] Comment on above: Performed By: #### P HEP, HIVCMB #### [address] [phone] Office Cashier: Alvino Davila MD #### CP, CBC, HCG #### [address] [place] [phone] Office Cashier: Luis A Peng MD MCH (RBC) [Entitic mass] 28.4 pg Normal 25.2-33.5 [facility] Comment on above: Performed By: #### P HEP, HIVCMB #### [address] [phone] Office Cashier: Alvino Davila MD #### CP, CBC, HCG #### [address] [place] [phone] Office Cashier: Luis A Peng MD MCHC (RBC) [Mass/Vol] 32.6 g/dL Normal 28.4-34.[address] [facility] Comment on above: Performed By: #### P HEP, HIVCMB #### [address] [phone] Office Cashier: Alvino Davila MD #### CP, CBC, HCG #### [address] [place], [place] [phone] Office Cashier: Luis A Peng MD MCV (RBC) [Entitic vol] 87.2 fL Normal 82.6-102.9 [facility] Comment on above: Performed By: #### P HEP, HIVCMB #### [address] [phone] Office Cashier: Alvino Davila MD #### CP, CBC, HCG #### [address] [place] [address] Office Cashier: Luis A Peng MD NRBC Automated 0.0 per 100 WBC Normal 0.0 [facility] Comment on above: Performed By: #### P HEP, HIVCMB #### [address] [id number] Office Cashier: Alvino Davila MD #### CP, CBC, HCG #### [address] [place] [phone] Office Cashier: Luis A Peng MD Platelet mean volume (Bld) [Entitic vol] 11.2 fL Normal 8.1-13.5 [facility] Comment on above: Performed By: #### P HEP, HIVCMB #### [address] [address] Office Cashier: Alvino Davila MD #### CP, CBC, HCG #### [address] [place] [phone] Office Cashier: Luis A Peng MD Platelets (Bld) [#/Vol] 241 10*3/uL Normal 138-453 [facility] Comment on above: Performed By: #### P HEP, HIVCMB #### [address] [address] Office Cashier: Alvino Davila MD #### CP, CBC, HCG #### [address] [place] [phone] Office Cashier: Luis A Peng MD RBC (Bld) [#/Vol] 4.61 10*6/uL Normal 3.95-5.11 [facility] Comment on above: Performed By: #### P HEP, HIVCMB #### [place] [address] [place], [place] 1362108 Office Cashier: Alvino Davila MD #### CP, CBC, HCG #### [address] [place] [phone] Office Cashier: Luis A Peng MD WBC (Bld) [#/Vol] 9.0 10*3/uL Normal 3.5-11.3 [facility] Comment on above: Performed By: #### P HEP, HIVCMB #### [place] [address] [place], [place] 3688208 Office Cashier: Alvino Davila MD #### CP, CBC, HCG #### [address] [place] [phone] Office Cashier: Luis A Peng MD Erythrocyte distribution width (RBC) [Ratio] 12.5 % 11.8 - 14.4 % [place] Hematocrit (Bld) [Volume fraction] 40.2 % 36.3 - 47.1 % [place] Hemoglobin (Bld) [Mass/Vol] 13.1 g/dL 11.9 - 15.1 g/dL [place] MCH (RBC) [Entitic mass] 28.4 pg 25.2 - 33.5 pg [place] MCHC (RBC) [Mass/Vol] 32.6 g/dL 28.4 - 34.8 g/dL [place] MCV (RBC) [Entitic vol] 87.2 fL 82.6 - 102.9 fL [place] Platelet mean volume (Bld) [Entitic vol] 11.2 fL 8.1 - 13.5 fL [place], [place] Platelets (Bld) [#/Vol] 241 10*3/uL [place] RBC (Bld) [#/Vol] 4.61 10*6/uL 3.95 - 5.1 1 m/uL [place] WBC (Bld) [#/Vol] 0.0 10*3/uL 0.0 per 100 WBC [place] WBC (Bld) [#/Vol] 9.0 10*3/uL [place] Comp Metabolic Profon 2019 (cont.) Normal [facility] Comment on above: Result Comment: Aver age GFR for 20-29 years old: 116 mL/min/1.73sq m Chronic Kidney Disease: <60 mL/min/1.73sq m Kidney failure: <15 mL/min/1.73sq m eGFR calculated using average adult body mass. Additional eGFR calculator available at: http://www.[employer]/multiple_crcl_2011.htm Performed By: #### P HEP, HIVCMB #### [address] [id number] Office Cashier: Alvino Davila MD #### CP, CBC, HCG #### [address] [place] [address] Office Cashier: Luis A Peng MD Albumin [Mass/Vol] 4.2 g/dL Normal 3.5-5.2 [facility] Comment on above: Performed By: #### P HEP, HIVCMB #### [address] [phone] Office Cashier: Alvino Davila MD #### CP, CBC, HCG #### [address] [place] [address] Office Cashier: Luis A Peng MD Albumin/Globulin [Mass ratio] 1.7 {ratio} Normal 1.0-2.5 [facility] Comment on above: Performed By: #### P HEP, HIVCMB #### [address] [place] [address] Office Cashier: Alvino Davila MD #### CP, CBC, HCG #### [facility] [address] [place] [address] Office Cashier: Luis A Peng MD Alkaline Phos 69 U/L Normal 35-104 [facility] Comment on above: Performed By: #### P HEP, HIVCMB #### [address] [address] Office Cashier: Alvino Davila MD #### CP, CBC, HCG #### [address] [place] [address] Office Cashier: Luis A Peng MD ALT [Catalytic activity/Vol] 78 U/L High 5-33 [facility] Comment on above: Performed By: #### P HEP, HIVCMB #### [address] [address] Office Cashier: Alvino Davila MD #### CP, CBC, HCG #### [address] [place] [address] Office Cashier: Luis A Peng MD Anion gap [Moles/Vol] 9 mmol/L Normal 9-[address] [facility] Comment on above: Performed By: #### P HEP, HIVCMB #### [address] [address] Office Cashier: Alvino Davila MD #### CP, CBC, HCG #### [address] [place] [address] Office Cashier: Luis A Peng MD AST [Catalytic activity/Vol] 44 U/L High <32 [facility] Comment on above: Performed By: #### P HEP, HIVCMB #### [address] [address] Office Cashier: Alvino Davila MD #### CP, CBC, HCG #### [facility] [address] [place], [place] [id number] Office Cashier: Luis A Peng MD Bilirubin Ql (U) 0.15 mg/dL Low 0.3-1.2 [facility] Comment on above: Performed By: #### P HEP, HIVCMB #### [address] [address] Office Cashier: Alvino Davila MD #### CP, CBC, HCG #### [facility] [address] [place] [address] Office Cashier: Luis A Peng MD BUN/CRE Ratio 20 Normal 9-20 [facility] Comment on above: Performed By: #### P HEP, HIVCMB #### [address] [address] Office Cashier: Alvino Davila MD #### CP, CBC, HCG #### [facility] [address] [place] [address] Dr. [place], [place] [id number] Office Cashier: Luis A Peng MD Calcium [Mass/Vol] 9.4 mg/dL Normal 8.6-10.4 [facility] Comment on above: Performed By: #### P HEP, HIVCMB #### [address] [address] Office Cashier: Alvino Davila MD #### CP, CBC, HCG #### [facility] [address] [place] [address] [place], [place] [id number] Office Cashier: Luis A Peng MD Chloride [Moles/Vol] 97 mmol/L Low 98-107 [facility] Comment on above: Performed By: #### P HEP, HIVCMB #### [address] [address] Office Cashier: Alvino Davila MD #### CP, CBC, HCG #### [address] [place], [place] [id number] Office Cashier: Luis A Peng MD CO2 [Moles/Vol] 28 mmol/L Normal 20-31 [facility] Comment on above: Performed By: #### P HEP, HIVCMB #### [address] [address] Office Cashier: Alvino Davila MD #### CP, CBC, HCG #### [address] [place], [place] [id number] Office Cashier: Luis A Peng MD Creatinine [Mass/Vol] 0.55 mg/dL Normal 0.50-0.[address] [facility] Comment on above: Performed By: #### P HEP, HIVCMB #### [address] [id number] Office Cashier: Alvino Davila MD #### CP, CBC, HCG #### [address] [place] [address] Office Cashier: Luis A Peng MD GFR, Amer >60 Normal >60 [facility] Comment on above: Performed By: #### P HEP, HIVCMB #### [address] [address] Office Cashier: Alvino Davila MD #### CP, CBC, HCG #### [address] [place], [place] [id number] Office Cashier: Luis A Peng MD GFR,non Amer >60 Normal >60 [facility] Comment on above: Performed By: #### P HEP, HIVCMB #### [address] [address] Office Cashier: Alvino Davila MD #### CP, CBC, HCG #### [address] [place], [place] [id number] Office Cashier: Luis A Peng MD Glucose [Mass/Vol] 85 mg/dL Normal 70-99 [facility] Comment on above: Performed By: #### P HEP, HIVCMB #### [address] [address] Office Cashier: Alvino Davila MD #### CP, CBC, HCG #### [address] [place] [address] Office Cashier: Luis A Peng MD Potassium [Moles/Vol] 4.3 mmol/L Normal 3.7-5.[address] [facility] Comment on above: Performed By: #### P HEP, HIVCMB #### [address] [address] Office Cashier: Alvino Davila MD #### CP, CBC, HCG #### [address] [place] [address] Office Cashier: Luis A Peng MD Protein [Mass/Vol] 6.7 g/dL Normal 6.4-8.3 [facility] Comment on above: Performed By: #### P HEP, HIVCMB #### [address] [address] Office Cashier: Alvino Davila MD #### CP, CBC, HCG #### [address] [place] [address] Office Cashier: Luis A Peng MD Sodium [Moles/Vol] 134 mmol/L Low 135-144 [facility] Comment on above: Performed By: #### P HEP, HIVCMB #### [address] [address] Office Cashier: Alvino Davila MD #### CP, CBC, HCG #### [address] [place] [address] Office Cashier: Luis A Peng MD Staging: Normal [facility] Comment on above: Result Comment: Stag e 1: Some kidney damage normal GFR Stage 2: Mild kidney damage GFR 60-89 Stage 3: Moderate kidney damage GFR 30-59 Stage 4: Severe kidney damage GFR 15-29 Stage 5: Severe kidney damage GFR <15 ESRD - chronic treatment by dialysis or transplant Performed By: #### P HEP, HIVCMB #### [facility] [address] [place], [place] [id number] Office Cashier: Alvino Davila MD #### CP, CBC, HCG #### [facility] [address] [place] [address] Office Cashier: Luis A Peng MD Urea nitrogen [Mass/Vol] 11 mg/dL Normal 6-20 [facility] Comment on above: Performed By: #### P HEP, HIVCMB #### [facility] [address] [place], [place] [id number] Office Cashier: Alvino Davila MD #### CP, CBC, HCG #### [facility] [address] [place] [address] Office Cashier: Luis A Peng MD Comprehensive Metabolic Pane [facility] 01-01-2020 Albumin [Mass/Vol] 4.2 g/dL 3.5 - 5.2 g/dL [place], [place] Albumin/Globulin [Mass ratio] 1.7 {ratio} [place], [place] ALP [Catalytic activity/Vol] 69 U/L 35 - 104 U/L [place] ALT [Catalytic activity/Vol] 78 U/L High 5 - 33 U/L [place] Anion gap [Moles/Vol] 9 mmol/L 9 - 17 mmol/L [place] AST [Catalytic activity/Vol] 44 U/L High <32 [place] Bilirubin Ql (U) 0.15 mg/dL Low 0.3 - 1.2 mg/dL [place], [place] Bun/Cre Ratio 20 [place], [place] Calcium [Mass/Vol] 9.4 mg/dL 8.6 - 10. 4 mg/dL [place] Chloride [Moles/Vol] 97 mmol/L Low 98 - 107 mmol/L [place] CO2 [Moles/Vol] 28 mmol/L 20 - 31 mmol/L [place] Creatinine [Mass/Vol] 0.55 mg/dL 0.5 - 0.9 mg/d L [place] GFR >60 >60 mL/min [place], [place] GFR Non- >60 >60 mL/min [place] Glucose [Mass/Vol] 85 mg/dL 70 - 99 mg/dL [place] Interpretation and review of laboratory results Abnormal [place] Potassium [Moles/Vol] 4.3 mmol/L 3.7 - 5.3 mmol/L [place] Protein [Mass/Vol] 6.7 g/dL 6.4 - 8.3 g/dL [place] Sodium [Moles/Vol] 134 mmol/L Low 135 - 144 mmol/L [place] Urea nitrogen [Mass/Vol] 11 mg/dL 6 - 20 mg/dL [place] HCG Qualitative, Serumon hCG Qual Negative NEGATIVE [place] Comment on above: Specimens with hCG l evels near the threshold of the test (25 mIU/mL) may give a negative or indeterminate result. In such cases, another test should be performed with a new specimen in 48-72 hours. If early is suspected clinically in this setting, correlation with quantitative serum b-hCG level is suggested. [facility] has confirmed the use of plasma for this test. This has not been cleared or approved by the U.S. Food and Drug Administration. The FDA has determined that such clearance is not necessary. HCG Screen, Bloodon 01-01-20 20 HCG Qn Negative Normal NEG [facility] Comment on above: Result Comment: Spec imens with hCG levels near the threshold of the test (25 mIU/mL) may give a negative or indeterminate result. In such cases, another test should be performed with a new specimen in 48-72 hours. If early is suspected clinically in this setting, correlation with quantitative serum b-hCG level is suggested. [facility] has confirmed the use of plasma for this test. This has not been cleared or approved by the U.S. Food and Drug Administration. The FDA has determined that such clearance is not necessary. Performed By: #### P HEP, HIVCMB #### [facility] [address] [place] [address] Office Cashier: Alvino Davila MD #### CP, CBC, HCG #### [address] [place] [address] Office Cashier: Luis A Peng MD HIV Ag/Abon 01-01-2020 HIV Ag/Ab NONREACTIVE Normal [facility] Comment on above: Result Comment: No l aboratory evidence of HIV infection. If acute HIV infection is suspected, consider testing for HIV-1 RNA. Performed By: #### P HEP, HIVCMB #### [address] [address] Office Cashier: Alvino Davila MD #### CP, CBC, HCG #### [address] [place] [address] Office Cashier: Luis A Peng MD HIV Screenon 01-01-2020 HIV Ag/Ab NONREACTIVE NONREACTIVE [place], [place] Comment on above: No laboratory eviden ce of HIV infection. If acute HIV infection is suspected, consider testing for HIV-1 RNA. Hepatitis Acute [facility] 12-31 Hep A Ab,IgM NONREACTIVE Normal NR [facility] Comment on above: Performed By: #### P HEP, HIVCMB #### [facility] [address] [place] [address] Office Cashier: Alvino Davila MD #### CP, CBC, HCG #### [address] [place] [address] Office Cashier: Luis A Peng MD Hep B Core Ab,IgM NONREACTIVE Normal [facility] Comment on above: Performed By: #### P HEP, HIVCMB #### [id number] [place] [address] Office Cashier: Alvino Davila MD #### CP, CBC, HCG #### [address] [place], [place] [id number] Office Cashier: Luis A Peng MD Hep B Surf Ag NONREACTIVE Normal [facility] Comment on above: Performed By: #### P HEP, HIVCMB #### [id number] [place] [address] Office Cashier: Alvino Davila MD #### CP, CBC, HCG #### [address] [place] [address] Office Cashier: Luis A Peng MD Hep C Ab NONREACTIVE Normal [facility] Comment on above: Result Comment: The [...] Performed By: #### P HEP, HIVCMB #### [address] [address] Office Cashier: Alvino Davila MD #### CP, CBC, HCG #### [address] [place] [address] Office Cashier: Luis A Peng MD Hepatitis Panel, [facility] HAV IgM IA Qn (S) NONREACTIVE NONREACTIVE [place] Hep B Core Ab, IgM NONREACTIVE NONREACTIVE [place] Hepatitis B Surface Ag NONREACTIVE NONREACTIVE [place] Hepatitis C Ab NONREACTIVE NONREACTIVE [place], [place] Comment on above: The hepatitis C [...] predicted among non-blacks MDRD (S/P/Bld) [Vol rate/Area] [place] Comment on above: Stage 1: Some [...] body mass. Additional eGFR calculator available at: http://www.[employer]/multiple_crcl_2012.htm Vital Signs Date Time Vital Sign Value Performing Clinician Ld razoy 06-27-2025 10:02-0400 Body mass index (BMI) [Ratio] 28.04 kg/m2 Paradise MORROW Work Phone: [facility] 06-27-2025 10:02-0400 Body weight 76.43 kg Paradise MORROW Work Phone: [facility] 06-27-2025 10:02-0400 Diastolic blood pressure 76 mm[Hg] Paradise MORROW Work Phone: [facility] 06-27-2025 10:02-0400 Systolic blood pressure 120 mm[Hg] Paradise MORROW Work Phone: [facility] 06-20-2025 14:32-0400 Body mass index (BMI) [Ratio] 28.09 kg/m2 Mee Yary DO Work Phone: [facility] 06-20-2025 14:32-0400 Body weight 76.57 kg Mee Yary DO Work Phone: [facility] 06-20-2025 14:32-0400 Diastolic blood pressure 80 mm[Hg] Mee Yary DO Work Phone: [facility] 06-20-2025 14:32-0400 Systolic blood pressure 120 mm[Hg] Mee Yary DO Work Phone: [facility] 06-07-2025 10:17-0400 Body mass index (BMI) [Ratio] 27.46 kg/m2 Mee Yary DO Work Phone: [facility] 06-07-2025 10:17-0400 Body weight 74.84 kg Mee Yary DO Work Phone: [facility] 06-07-2025 10:17-0400 Diastolic blood pressure 74 mm[Hg] Mee Yary DO Work Phone: [facility] 06-07-2025 10:17-0400 Systolic blood pressure 118 mm[Hg] Mee Yary DO Work Phone: [facility] 05-30-2025 09:30-0400 Body height 165.1 cm Nohemy Hernandez MD Work Phone: [facility] 05-30-2025 09:30-0400 Body mass index (BMI) [Ratio] 27.09 kg/m2 Nohemy Hernandez MD Work Phone: [facility] 05-30-2025 09:30-0400 Body weight 73.85 kg Nohemy Hernandez MD Work Phone: [facility] 05-30-2025 09:30-0400 Diastolic blood pressure 73 mm[Hg] Nohemy Hernandez MD Work Phone: [facility] 05-30-2025 09:30-0400 Heart rate 83 /min Nohemy Hernandez MD Work Phone: [facility] 05-30-2025 09:30-0400 Systolic blood pressure 110 mm[Hg] Nohemy Hernandez MD Work Phone: [facility] 05-30-2025 08:57-0400 Body height 165.1 cm Nohemy Hernandez MD Work Phone: [facility] 05-16-2025 10:59-0400 Body mass index (BMI) [Ratio] 26.46 kg/m2 Mee Yary DO Work Phone: [facility] 05-16-2025 10:59-0400 Body weight 72.12 kg Mee Yary DO Work Phone: [facility] 05-16-2025 10:59-0400 Diastolic blood pressure 70 mm[Hg] Mee Yary DO Work Phone: [facility] 05-16-2025 10:59-0400 Systolic blood pressure 110 mm[Hg] Mee Yary DO Work Phone: [facility] 05-02-2025 15:42-0400 Body mass index (BMI) [Ratio] 26.26 kg/m2 Mee Yary DO Work Phone: [facility] 05-02-2025 15:42-0400 Body weight 71.58 kg Mee Yary DO Work Phone: [facility] 05-02-2025 15:42-0400 Diastolic blood pressure 70 mm[Hg] Mee Yary DO Work Phone: [facility] 05-02-2025 15:42-0400 Systolic blood pressure 104 mm[Hg] Mee Yary DO Work Phone: [facility] 04-18-2025 13:35-0400 Body mass index (BMI) [Ratio] 25.79 kg/m2 Mee Yary DO Work Phone: [facility] 04-18-2025 13:35-0400 Body weight 70.31 kg Mee Yary DO Work Phone: [facility] 04-18-2025 13:35-0400 Diastolic blood pressure 64 mm[Hg] Mee Yary DO Work Phone: [facility] 04-18-2025 13:35-0400 Systolic blood pressure 112 mm[Hg] Mee Yary DO Work Phone: [facility] 04-06-2025 11:47-0400 Body mass index (BMI) [Ratio] 25.76 kg/m2 Noms Nurse [facility] 04-06-2025 11:47-0400 Body weight 70.22 kg Noms Nurse [facility] Encounters Encounter Date Encounter Type Care Provider Facility Start: 07-01-2025 End: 07-01-2025 Clinisync Result Encounter Mee Yary DO Work Phone: [facility] Unsolicited Start: 07-01-2025 End: 07-01-2025 Clinisync Result Encounter Mee Yary DO Work Phone: [facility] Unsolic[facility] Start: 06-27-2025 End: 06-27-2025 Bamboo flowsheet Paradise MORROW Work Phone: [facility] Start: 06-27-2025 End: 06-27-2025 Bamboo flowsheet Paradise MORROW Work Phone: [facility] Start: 06-27-2025 End: 06-27-2025 Office outpatient visit 15 minutes Paradise MORROW Work Phone: [facility] Comment on above: Third trimester preg helder ([facility]); 35 weeks gestation of ([facility]) Start: 06-27-2025 End: 06-27-2025 ambulatory PARADISE OLVERA Not Available Start: 06-20-2025 End: 06-20-2025 Office outpatient visit 15 minutes Mee Yary DO Work Phone: [facility] Comment on above: 34 weeks gestation o f ([facility]); Third trimester ([facility]); H/O opioid abuse ([facility]); History of placental abruption; Hepatitis C virus [...] flowsheet Mee Yary DO Work Phone: [facility] [place] [facility] Start: 06-07-2025 End: 06-07-2025 Bamboo flowsheet Mee Yary DO Work Phone: [facility] [place] [facility] Start: 06-07-2025 End: 06-07-2025 ambulatory MEE YARY Not Available Start: 06-07-2025 End: 06-07-2025 Office outpatient visit 15 minutes Mee Yary DO Work Phone: [facility] Comment on above: Third trimester preg helder ([facility]); 32 weeks gestation of ([facility]); H/O opioid abuse ([facility]); History of placental abruption; Diabetes mellitus screening Start: 06-05-2025 End: 06-05-2025 Clinisync Result Encounter Mee Yary DO Work Phone: [facility] External Department Unsolicited Start: 06-05-2025 End: 06-05-2025 Clinisync Result Encounter Mee Yary DO Work Phone: [facility] External Department Unsolicited Start: 05-30-2025 End: 05-30-2025 Chart abstracting Nohemy Hernandez MD Work Phone: [facility] Start: 05-30-2025 End: 05-30-2025 Office outpatient new 45 minutes Nohemy Hernandez MD Work Phone: [facility] Comment on above: History of placental abruption (Primary Dx); Hepatitis C virus infection without hepatic coma, unspecified chronicity Start: 05-30-2025 End: 05-30-2025 ambulatory [facility] Start: 05-21-2025 End: 05-21-2025 Clinisync Result Encounter Mee Yary DO Work Phone: [facility] External Department Unsolicited Start: 05-21-2025 End: 05-21-2025 Clinisync Result Encounter Mee Yary DO Work Phone: [facility] External Department Unsolicited Start: 05-16-2025 End: 05-16-2025 Bamboo flowsheet Mee Yary DO Work Phone: [facility] Start: 05-16-2025 End: 05-16-2025 Bamboo flowsheet Mee Yary DO Work Phone: [facility] Start: 05-16-2025 End: 05-16-2025 Office outpatient visit 15 minutes Mee Yary DO Work Phone: [facility] Comment on above: 29 weeks gestation o f ([facility]); Third trimester ([facility]); Request for sterilization; H/O opioid abuse ([facility]); History of placental abruption Start: 05-16-2025 End: 05-16-2025 ambulatory MEE YARY Not Available Start: 05-02-2025 End: 05-02-2025 ambulatory MEE YARY Not Available Start: 05-02-2025 End: 05-02-2025 Office outpatient visit 15 minutes Mee Yary DO Work Phone: [facility] Comment on above: Second trimester pre gnancy ([facility]); 27 weeks gestation of ([facility]); Request for sterilization; H/O opioid abuse ([facility]); History of placental abruption Start: 05-02-2025 End: 05-02-2025 Bamboo flowsheet Mee Yary DO Work Phone: [facility] Start: 05-02-2025 End: 05-02-2025 Bamboo flowsheet Mee Yary DO Work Phone: [facility] Start: 04-18-2025 End: 04-18-2025 Bamboo flowsheet Mee Yary DO Work Phone: [facility] Start: 04-18-2025 End: 04-18-2025 Bamboo flowsheet Mee Yary DO Work Phone: [facility] Start: 04-18-2025 End: 04-18-2025 ambulatory MEE YARY Not Available Start: 04-18-2025 End: 04-18-2025 Office outpatient visit 15 minutes Mee Yary DO Work Phone: [facility] Comment on above: Second trimester pre gnancy ([facility]); 25 weeks gestation of ([facility]) Start: 04-09-2025 End: 04-09-2025 Clinisync Result Encounter Paradise MORROW Work Phone: [facility] External Department Unsolicited Start: 04-09-2025 End: 04-09-2025 Clinisync Result Encounter Paradise Olvera PA Work Phone: [facility] Unsolicited Start: [...] 03-27-2021 End: 03-28-2021 ambulatory Helder Monk MD Facility:[facility] Start: 12-06-2020 End: 12-07-2020 Patient encounter procedure MALINI FRITZ [facility] Start: 12-06-2020 End: 12-06-2020 Subsequent hospital visit by physician [facility] Start: 11-11-2020 End: 11-12-2020 Patient encounter procedure MALINI CATRINA [facility] Start: 05-30-2020 End: 05-31-2020 Patient encounter procedure [facility]INI [facility] Start: 05-30-2020 End: 05-30-2020 [facility] Start: 01-01-2020 End: 01-02-2020 Patient encounter procedure MALINI [facility] Start: 01-01-2020 End: 01-01-2020 Subsequent [facility] Start: 09-20-2018 End: 09-21-2018 Patient encounter procedure Sidney Nava Facility:[id number] Procedures Date Procedure Procedure Detail Performing Clinician Start: 07-01-2025 US OB BPP W NON-STRESS Mee Yary DO Work Phone: Start: 07-01-2025 US OB PLACENTA Mee Fa zio DO Work Phone: Start: 07-01-2025 [facility] UA (CLEAN/CATCH) DOUBLE BOTTOM DRIVER/MICRO IF IND. Mee Yary DO Work Phone: Start: 06-27-2025 Urnls dip stick/tabl et rgnt non-auto w/o micrscp Paradise MORROW Work Phone: Start: 06-20-2025 Urnls dip stick/tabl et rgnt non-auto w/o micrscp Mee Yary DO Work Phone: Start: 06-14-2025 [facility] UA (CLEAN/CATCH) DOUBLE BOTTOM DRIVER/MICRO IF IND. Mee Yary DO Work Phone: [...] Not In System Ref Prov Start: 05-21-2025 [facility] DRUG SCREEN RAPI D (URINE) Mee [...] Mee Yary DO Work Phone: Start: 11-29-2024 [facility] PREG QUANT HCG Core y Yary [...] Adult BMI Screening Adult BMI Screen ing [facility] Start: 05-30-2026 Tobacco Screening Tobacco Screening [facility] Start: 07-05-2025 End: 07-05-2025 Patient encounter procedure [facility] Start: 07-04-2025 End: 07-04-2025 Patient encounter procedure 07/04/2025 10:50 AM EDT Routine [facility] [place] [facility] [address] [id number] Mee Pringle DO [address] [place] [address] [facility]Y [facility] [facility] Start: 07-02-2025 Influenza vaccination N [facility] Start: 06-27-2025 End: 06-27-2026 CULTURE, GROUP B STREP WITH SUSCEPTIBLITY CULTURE, GROUP B STREP WITH SUSCEPTIBLITY Lab Routine Third trimester ([facility]) Expected: 06/27/2025, Expires: 06/27/2026 [facility] Work Phone: Comment on above: Expected: 06/27/2025 , Expires: 06/27/2026 Start: 06-27-2025 End: 06-27-2025 Patient encounter procedure HALEY CAMPBELL Comment on above: Arrived Start: 06-20-2025 End: 06-20-2025 Patient encounter procedure HALEY [place] [facility] Comment on above: Arrived Start: 05-30-2025 End: 05-30-2026 US MFM with or without consult US MFM with or without consult Imaging Routine History of placental abruption Hepatitis C virus infection without hepatic coma, unspecified chronicity Expected: 05/30/2025, Expires: 05/30/2026 [facility] Comment on above: Expected: 05/30/2025 , Expires: 05/30/2026 Start: 05-30-2025 End: 05-30-2025 Patient encounter procedure [facility] Start: 05-30-2025 End: 05-30-2025 Professional / ancillary services management 05/30/2025 10:30 AM EDT Ancillary Procedure [facility] [address] [place] [address] [facility] Start: 05-30-2025 Subsequent hospital visit by physician 05/30/2025 9:15 AM EDT Hospital Encounter [facility] [address] [place] [address] [facility] Start: 05-16-2025 End: 11-16-2025 US biophysical profile w non stress test US biophysical profile w non stress test Imaging Routine H/O opioid abuse ([facility]) History of placental abruption Expected: 05/16/2025 (Approximate), Expires: 11/16/2025 [facility] Work Phone: Comment on above: Expected: 05/16/2025 (Approximate), Expires: 11/16/2025 Start: 05-16-2025 End: 05-16-2025 Patient encounter procedure [facility] Comment on above: Arrived Start: 05-02-2025 End: 05-02-2025 Patient encounter procedure 05/02/2025 3:20 PM EDT Routine [facility] [address] [place] [id number] Mee Pringle DO [address] [place] [address] [facility] Start: 04-18-2025 End: 08-18-2025 US for US OB follow up transabdominal approach Imaging Routine Second trimester ([facility]) Expected: 04/18/2025, Expires: 08/18/2025 [facility] Work Phone: Comment on above: Expected: 04/18/2025 , Expires: 08/18/2025 Start: 04-18-2025 End: 04-18-2025 Patient encounter procedure 04/18/2025 1:30 PM EDT Routine [facility] [address] [place] [id number] Mee Pringle, DO [address] [place] [address] [facility] Start: 04-06-2025 End: 04-06-2026 ABO/Rh ABO/Rh Lab Routine Missed menses , unspecified gestational age ([facility]) Expected: 04/06/2025 (Approximate), Expires: 04/06/2026 [facility] Comment on above: Expected: 04/06/2025 (Approximate), Expires: 04/06/2026 Start: 04-06-2025 End: 04-06-2026 Blood type and Indirect antibody screen panel - Blood Type and screen Lab Routine Missed menses , unspecified gestational age ([facility]) Expected: 04/06/2025 (Approximate), Expires: 04/06/2026 [facility] Work Phone: Comment on above: Expected: 04/06/2025 (Approximate), Expires: 04/06/2026 Start: 04-06-2025 End: 04-06-2026 CBC panel - Blood by Automated count CBC Lab Routine Diabetes mellitus screening Expected: 04/06/2025 (Approximate), Expires: 04/06/2026 [facility] Comment on above: Expected: 04/06/2025 (Approximate), Expires: 04/06/2026 Start: 04-06-2025 End: 04-06-2026 Drugs of abuse panel - Urine by Screen method Rapid drug screen, urine Lab Routine , unspecified gestational age ([facility]) Encounter for supervision of normal first in first trimester ([facility]) Expected: 04/06/2025 (Approximate), Expires: 04/06/2026 [facility] Comment on above: Expected: 04/06/2025 (Approximate), Expires: 04/06/2026 Start: 04-06-2025 End: 04-06-2026 Measurement of glucose 1 hour after glucose challenge for glucose tolerance test Glucose tolerance, 1 hour Lab Routine Diabetes mellitus screening Expected: 04/06/2025 (Approximate), Expires: 04/06/2026 [facility] Comment on above: Expected: 04/06/2025 (Approximate), Expires: 04/06/2026 Start: 04-06-2025 End: 07-07-2025 US for US OB 14+ weeks anatomy scan Imaging Routine Screening, , for anatomic survey ([facility]) Expected: 04/06/2025, Expires: 07/07/2025 [facility] Comment on above: Expected: 04/06/2025 , Expires: 07/07/2025 Start: 07-02-2024 COVID-19 Vaccine ( season) COVID-19 Vaccine ( season) [facility] Start: 07-02-2024 Influenza vaccination Influenza Vacc ine (#1) [facility] Start: 2022 Screening for malign ant neoplasm of cervix [facility] Start: 07-02-2020 Influenza vaccination Flu vaccine (# 1) [place], [place] Start: 2013 Screening for malign ant neoplasm of cervix Pap Smear [facility] Start: 2011 DTaP,Tdap and Td Vaccines (1 - Tdap) DTaP,Tdap and Td Vaccines (1 - Tdap) [facility] Start: 2010 Adult BMI Follow Up Plan Adult BMI Follow Up Plan [facility] Start: 2010 Adult BMI Screening Adult BMI Screen ing [facility] Start: 2004 Depression Screening Depression Scre ening [facility] Start: 2004 Tobacco Screening Tobacco Screening [facility] Start: 2003 DTaP,Tdap and Td Vaccines (6 - Tdap) DTaP,Tdap and Td Vaccines (6 - Tdap) [facility] End: 05-30-2026 Anti cariolipin AB IgG IgA IgM Anti cariolipin AB IgG IgA IgM Lab Routine History of placental abruption 1 Occurrences starting 05/30/2025 until 05/30/2026 [facility] on above: 1 Occurrences starti ng 05/30/2025 until 05/30/2026 End: 05-30-2026 aPTT in Blood by Coagulation assay APTT Lab Routine History of placental abruption Hepatitis C virus infection without hepatic coma, unspecified chronicity 1 Occurrences starting 05/30/2025 until 05/30/2026 [facility] above: 1 Occurrences starti ng 05/30/2025 until 05/30/2026 Bacteria identified in Urine by Culture Urine culture Microbiology Routine Missed menses Ordered: 04/06/2025 [facility] [employer] Comment on above: Ordered: 04/06/2025 End: 05-30-2026 Beta-2 glycoprotein antibodies Beta-2 glycoprotein antibodies Lab Routine History of placental abruption 1 Occurrences starting 05/30/2025 until 05/30/2026 [facility] Comment on above: 1 Occurrences starti ng 05/30/2025 until 05/30/2026 CBC W Auto Different ial panel - Blood CBC and differential Lab Routine Missed menses , unspecified gestational age ([facility]) Ordered: 04/06/2025 [employer] Comment on above: Ordered: 04/06/2025 End: 05-30-2026 Comprehensive metabolic 2000 panel - Serum or Plasma Comprehensive metabolic panel Lab Routine History of placental abruption Hepatitis C virus infection without hepatic coma, unspecified chronicity 1 Occurrences starting 05/30/2025 until 05/30/2026 [employer] Work Phone: Comment on above: 1 Occurrences starti ng 05/30/2025 until 05/30/2026 End: 05-30-2026 DRVVT DRVVT Lab Routine History of placental abruption 1 Occurrences starting 05/30/2025 until 05/30/2026 [facility] Comment on above: 1 Occurrences starti ng 05/30/2025 until 05/30/2026 Hemoglobin A1c/Hemoglobin.total in Blood Hemoglobin A1c Lab Routine Missed menses , unspecified gestational age ([facility]) Ordered: 04/06/2025 [employer] Comment on above: Ordered: 04/06/2025 Hemoglobin A1c/Hemoglobin.total in Blood Hemoglobin A1c Lab Routine Diabetes mellitus screening Ordered: 06/07/2025 [facility] Work Phone: Comment on above: Ordered: 06/07/2025 Hepatitis B virus surface Ag [Presence] in Serum or Plasma by Immunoassay Hepatitis B surface antigen Lab Routine Missed menses , unspecified gestational age ([facility]) Ordered: 04/06/2025 [facility] Comment on above: Ordered: 04/06/2025 Hepatitis C virus Ab [Presence] in Serum or Plasma by Immunoassay Hepatitis C antibody Lab Routine Missed menses , unspecified gestational age ([facility]) Ordered: 04/06/2025 [facility] Comment on above: Ordered: 04/06/2025 HIV-1/HIV-2 antigen/antibody combination immunoassay HIV-1 and HIV-2 antibodies Lab Routine Missed menses , unspecified gestational age ([facility]) Ordered: 04/06/2025 [facility] Comment on above: Ordered: 04/06/2025 End: 05-30-2026 Protime & INR Protime & INR Lab Routine History of placental abruption Hepatitis C virus infection without hepatic coma, unspecified chronicity 1 Occurrences starting 05/30/2025 until 05/30/[address] [facility] Comment on above: 1 Occurrences starti ng 05/30/2025 until 05/30/2026 Reagin Ab [Presence] in Serum by RPR RPR Lab Routine Missed menses , unspecified gestational age ([facility]) Ordered: 04/06/2025 [facility] Comment on above: Ordered: 04/06/2025 Rubella antibody, IgG Rubella an tibody, IgG Lab Routine Missed menses , unspecified gestational age ([facility]) Ordered: 04/06/2025 [facility] Comment on above: Ordered: 04/06/2025 Payers Date Payer Category Payer Medicaid (Managed Care) [employer] [id number] 2021 Unknown 2019 Unknown [facility] xxxxxxxxxxxx 2019-Present [phone] [place] [phone] xxxxxxxxxxxx [id number] 2019 Unknown [facility] [id number] 2019-Present [phone] [place] [id number]. [id number] 2019 Medicaid [place] [employer] [id number] 1992 Unknown [id number] 2.16.840.1.427390.3.579.2. 173 1992 Unknown [id number] 2.16.840.1.239424.3.579.2. 173 1992 Unknown [id number] 2.16.840.1.024695.3.579.2. 173 1992 Unknown [id number] 2.16.840.1.689917.3.579.2. 173 1992 Unknown [id number] 2.16.840.1.008752.3.579.2. 196 1992 Unknown [id number] 2.16.840.1.426848.3.579.2. 593 1992 Unknown [id number] 2.16.840.1.747399.3.579.2. 593 1992 Unknown [id number] 2.16.840.1.045254.3.579.2. 593 1992 Unknown [id number] 2.16.840.1.144698.3.579.2. 593 1992 Unknown [id number] 2.16.840.1.657731.3.579.2. 593 1992 Unknown [id number] 2.16.840.1.368358.3.579.2. 593 1992 Unknown [id number] 2.16.840.1.914817.3.579.2. 1286 1992 Unknown [id number] 2.16.840.1.646312.3.579.2. 1286 1992 Unknown [id number] 2.16.840.1.103882.3.579.2. 1259 1992 Unknown [id number] 2.16.840.1.331628.3.579.2. 1259 1992 Unknown [id number] 2.16.840.1.654621.3.579.2. 1259 1992 Unknown [id number] 2.16.840.1.498717.3.579.2. 1259 1992 Unknown [id number] 2.16.840.1.911038.3.579.2. 1259 1992 Unknown [id number] 2.16.840.1.317920.3.579.2. 1259 1992 Unknown [id number] 2.16.840.1.515424.3.579.2. 1259 1960 Unknown [id number] Social History Date Type [facility]ail [facility] 1990 Sex Assigned At Not on file [facility] Start: 04-23-2023 End: 05-30-2025 Tobacco smoking status [...] Start: 05-30-2025 Alcoholic beverage intake Ex-drinker (finding) [facility] Childcare Unknown [facility] Start: 06-06-2015 Sex Female (finding) [facility] Start: 05-30-2025 Tobacco smoking stat [facility] Ex-smoker [facility] History of tobacco use Current smoker [facility] Clinical Notes 04-06-2025 to 06-27-2025 CRISTHIAN Sanders - 06/27/2025 9:50 AM Deangelo Aguilar LPN - 06/20/2025 2:30 PM Vishnu Lynn LPN - 06/07/2025 9:40 AM Clive Raya ENTRY TECH - 05/30/2025 10:30 AM EDT Note Date [...] (HCC) BMI 28.0-28.9,adult Drug abuse, opioid type ([facility]) Encounter for follow-up Encounter for gynecological examination (general) (routine) without abnormal findings Hepatitis C Labial cyst Pain pelvic HISTORY PAST MEDICAL HISTORY SOCIAL HISTORY Past Medical History: Diagnosis Date Abscess of labia Bipolar disorder (HCC) BMI 28.0-28.9,adult Drug abuse, opioid type ([facility]) Encounter for follow-up Encounter for gynecological examination [...] ASSESSMENT & PLAN ICD-10-CM 1. Third trimester ([facility]) Z34.93 POCT urinalysis dipstick manually resulted CULTURE, GROUP B STREP WITH SUSCEPTIBLITY CULTURE, GROUP B STREP WITH SUSCEPTIBLITY CANCELED: POCT urinalysis dipstick manually resulted CANCELED: CULTURE, GROUP B STREP WITH SUSCEPTIBLITY CANCELED: CULTURE, GROUP B STREP WITH SUSCEPTIBLITY 2. 35 weeks gestation of ([facility]) Z3A.35 Return OB: Patient is doing well [...] of: CRISTHIAN Sanders documented in this encounter [facility] 06-20-2025 History of Present illness Narrative Reason [...] Date Abscess of labia Bipolar disorder ([facility]) BMI 28.0-28.9,adult Drug abuse, opioid type ([facility]) Encounter for follow-up Encounter for gynecological examination (general) (routine) without abnormal findings Hepatitis C Labial cyst Pain pelvic HISTORY PAST MEDICAL HISTORY SOCIAL HISTORY Past Medical History: Diagnosis Date Abscess of labia Bipolar disorder ([facility]) BMI 28.0-28.9,adult Drug abuse, opioid type ([facility]) Encounter for follow-up Encounter for gynecological examination [...] nursing note reviewed. Exam conducted with a green marketing analyst present. Vitals: Estimated body mass index is 28.09 kg/m as calculated from the following: Height as of 12/09/22: 5' 5 . Weight as of this encounter: 168 lb 12.8 oz. BP: 120/80 No LMP recorded. Patient is . ASSESSMENT & PLAN ICD-10-CM 1. 34 weeks gestation of ([facility]) Z3A.34 POCT urinalysis dipstick manually resulted 2. Third trimester ([facility]) Z34.93 POCT urinalysis dipstick manually resulted 3. H/O opioid abuse ([facility]) F11.11 4. History of placental abruption Z87.59 [...] Mee Pringle DO documented in this encounter [facility] 06-07-2025 History of Present illness Narrative Reason [...] (HCC) BMI 28.0-28.9,adult Drug abuse, opioid type ([facility]) Encounter for follow-up Encounter for gynecological examination (general) (routine) without abnormal findings Labial cyst Pain pelvic HISTORY PAST MEDICAL HISTORY SOCIAL HISTORY Past Medical History: Diagnosis Date Abscess of labia Bipolar disorder (HCC) BMI 28.0-28.9,adult Drug abuse, opioid type ([facility]) Encounter for follow-up Encounter for gynecological examination [...] nursing note reviewed. Exam conducted with a green marketing analyst present. Vitals: Estimated body mass index is 27.46 kg/m as calculated from the following: Height as of 23: 5' 5 . Weight as of this encounter: 165 lb. BP: 118/74 No LMP recorded. Patient is . ASSESSMENT & PLAN ICD-10-CM 1. Third trimester ([facility]) Z34.93 POCT urinalysis dipstick manually resulted 2. 32 weeks gestation of ([facility]) Z3A.32 3. H/O opioid abuse ([facility]) F11.11 4. History of placental abruption Z87.59 [...] Mee Pringle DO documented in this encounter [facility] 05-30-2025 History of Present illness Narrative [...] No Have you been seen here at [facility] in a previous ? No Recent ER visits or hospitalizations? No Bring blood sugar log or meter with you today? (Please bring them with you for every visit at [facility]) N/A Flu vaccine (Sep-December)? N/A Any [...] it affect 1-4% of women in the [facility]. I reviewed with the patient [...] intensive care unit. The overall risk of Wfhdueqk-Mt-Twxyr-Transmission (MTCT) during is approximately 4-8%. If the [...] C infection until after 18 months. The [place] [employer] and CDC recommend screening [...] and counseling, coordination of care which was jran-cf-ivjw. documented in this encounter [facility] [employer] 05-16-2025 History of Present illness Narrative Reason [...] (HCC) BMI 28.0-28.9,adult Drug abuse, opioid type ([facility]) Encounter for follow-up Encounter for gynecological examination (general) (routine) without abnormal findings Labial cyst Pain pelvic HISTORY PAST MEDICAL HISTORY SOCIAL HISTORY Past Medical History: Diagnosis Date Abscess of labia Bipolar disorder (HCC) BMI 28.0-28.9,adult Drug abuse, opioid type ([facility]) Encounter for follow-up Encounter for gynecological examination [...] nursing note reviewed. Exam conducted with a green marketing analyst present. Vitals: Estimated body mass index is 26.46 kg/m as calculated from the following: Height as of 12/09/22: 5' 5 . Weight as of this encounter: 159 lb. BP: 110/70 No LMP recorded. Patient is . ASSESSMENT & PLAN ICD-10-CM 1. 29 weeks gestation of ([facility]) Z3A.29 POCT urinalysis dipstick manually resulted 2. Third trimester ([facility]) Z34.93 POCT urinalysis dipstick manually resulted 3. Request for sterilization Z30.2 4. H/O opioid abuse ([facility]) F11.11 5. History of placental abruption Z87.59 [...] Mee Pringle DO documented in this encounter [facility] 05-02-2025 History of Present illness Narrative [...] (HCC) BMI 28.0-28.9,adult Drug abuse, opioid type ([facility]) Encounter for follow-up Encounter for gynecological examination (general) (routine) without abnormal findings Labial cyst Pain pelvic HISTORY PAST MEDICAL HISTORY SOCIAL HISTORY Past Medical History: Diagnosis Date Abscess of labia Bipolar disorder (HCC) BMI 28.0-28.9,adult Drug abuse, opioid type ([facility]) Encounter for follow-up Encounter for gynecological examination [...] nursing note reviewed. Exam conducted with a green marketing analyst present. Vitals: Estimated body mass index is 26.26 kg/m as calculated from the following: Height as of 12/09/22: 5' 5 . Weight as of this encounter: 157 lb 12.8 oz. BP: 104/70 No LMP recorded. Patient is . ASSESSMENT & PLAN ICD-10-CM 1. Second trimester ([facility]) Z34.92 2. 27 weeks gestation of ([facility]) Z3A.27 3. Request for sterilization Z30.2 4. H/O opioid abuse ([facility]) F11.11 5. History of placental abruption Z87.59 [...] Mee Pringle DO documented in this encounter [facility] 04-18-2025 History of Present illness Narrative [...] (HCC) BMI 28.0-28.9,adult Drug abuse, opioid type ([facility]) Encounter for follow-up Encounter for gynecological examination (general) (routine) without abnormal findings Labial cyst Pain pelvic HISTORY PAST MEDICAL HISTORY SOCIAL HISTORY Past Medical History: Diagnosis Date Abscess of labia Bipolar disorder (HCC) BMI 28.0-28.9,adult Drug abuse, opioid type ([facility]) Encounter for follow-up Encounter for gynecological examination [...] nursing note reviewed. Exam conducted with a green marketing analyst present. Vitals: Estimated body mass index is 25.79 kg/m as calculated from the following: Height as of 12/09/22: 5' 5 . Weight as of this encounter: 155 lb. BP: 112/64 No LMP recorded. Patient is . ASSESSMENT & PLAN ICD-10-CM 1. Second trimester ([facility]) Z34.92 POCT urinalysis dipstick manually resulted 2. 25 weeks gestation of ([facility]) Z3A.25 Return OB: Patient presents today for [...] Mee Pringle DO documented in this encounter [facility] 04-06-2025 History of Present illness Narrative [...] Date Abscess of labia Bipolar disorder ([facility]) BMI 28.0-28.9,adult Drug abuse, opioid type ([facility]) Encounter for follow-up Encounter for gynecological examination [...] dipstick manually resulted , unspecified gestational age [facility] - Type and screen; Future - ABO/Rh; Future - CBC and differential - Hemoglobin A1c - RPR - Rubella antibody, IgG - Hepatitis B surface antigen - Hepatitis C antibody - HIV-1 and HIV-2 antibodies - Rapid drug screen, urine; Future Encounter for supervision of normal first in first trimester ([facility]) - Rapid drug screen, urine; Future Screening, , for anatomic survey ([facility]) - US OB 14+ weeks anatomy scan; Future Diabetes mellitus screening - CBC; Future - Glucose tolerance, 1 hour; Future headache in second trimester ([facility]) - magnesium oxide (Mag-Ox) 400 MG tablet; [...] Olive Leon LPN documented in this encounter [facility] Healthcare Evaluation note Diagnosis Missed menses , unspecified gestational age ([facility]) Encounter for supervision of normal first in first trimester ([facility]) Screening, , for anatomic survey ([facility]) Encounter for anatomic survey Diabetes mellitus screening Screening for diabetes mellitus headache in second trimester ([facility]) documented in this encounter [facility]* Diagnosis Second trimester ([facility]) state, incidental 25 weeks gestation of ([facility]) documented in this encounter [facility]* Diagnosis Second trimester ([facility]) state, incidental 27 weeks gestation of ([facility]) Request for sterilization H/O opioid abuse ([facility]) History of placental abruption documented in this encounter [facility]* Diagnosis 29 weeks gestation of ([facility]) Third trimester ([facility]) state, incidental Request for sterilization H/O opioid abuse ([facility]) History of placental abruption documented in this encounter [facility]* Diagnosis History of placental abruption- Primary Hepatitis C virus infection without hepatic coma, unspecified chronicity [facility] encounter [facility] Diagnosis Third trimester [...] gestation of ([facility]) documented in this encounter [facility] HealthcareInstructionsNot on filedocumented in this encounterPro[facility] SystemInstructionsNot on filedocumented in this encounterProAkron [facility] SystemInstructionsNot on filedocumented in this encounterMer[facility] Summary Purpose Family History No Family History Records FoundNo Family History Records FoundNo Family History Records FoundNo Family History Records FoundNo Family History Records FoundNo Family History Records Found Advance Directives Documents on File Type Date Recorded Patient Senior Paralegal Expl anation Advance Directives and Living Will Power of Tenterer Documents on File Type Date Recorded Patient Senior Paralegal Expl anation ACP-Advance Directive ACP-Power of Tenterer Additional Source Comments INFORMATION SOURCE (unrecogn ized section and content) DATE CREATED AUTHOR 10/10/2018 [facility] DATE CREATED AUTHOR AUTHOR'S ORGANIZ ATION 12/06/2020 [facility] DATE CREATED AUTHOR AUTHOR'S ORGANIZ ATION 03/29/2021 [facility] DATE CREATED AUTHOR AUTHOR'S ORGANIZ ATION 12/10/2022 [facility] DATE CREATED AUTHOR AUTHOR'S ORGANIZ ATION 06/01/2025 [facility] DATE CREATED AUTHOR AUTHOR'S ORGANIZ ATION 06/29/2025 [facility] [employer] Reason for Visit (unrecogniz ed section and content) Reason Comments Amenorrhea Reason Comments Routine Visit Reason Comments Hepatitis C Current Everyday Smoker Care Teams (unrecognized sec tion and content) Dental Office Manager Relationship Specialty Start Date End Date No Pcp, [place] [address] PCP - General Family Medicine 04/27/20 Dental Office Manager Relationship Specialty Start Date End Date No Pcp, [place] [address] PCP - General Family Medicine 04/27/20 Dental Office Manager Relationship Specialty Start Date End Date No Pcp, [place] [phone] PCP - General Family Medicine 04/27/20 FOR [...] ON THE PRIMARY CLINICAL RECORDS. [facility] [employer] provides no warranty or guarantee of the accuracy or completeness of information in this document.
--- NOTE | 2025-07-03 10:11 | US_ITS ---
US/US OB BPP w non-stress IMPRESSION: NORMAL BIOPHYSICAL PROFILE. Impression dictated by: Raine Zelaya M.D. 07/03/2025 10:55 AM Dictation Location: [employer] Electronically authenticated by: [id number] Y Date: 07/03/2025 10:55
== END 2025-07-03 11:04 | disposition home or self-care (01) ==
LOC: US 09:58 → FBC 10:13
PROVIDERS: PCP Nurse Practitioner Family; Visit Provider Obstetrics & Gynecology
DX: O26.893 Other specified pregnancy related conditions, third trimester (principal); Z87.59 Personal history of other complications of pregnancy, childbirth and the puerperium; Z3A.36 36 weeks gestation of pregnancy; F11.11 Opioid abuse, in remission
CPT/HCPCS: 76818

== ENCOUNTER 2025-07-06 05:26 | Inpatient (IN) | payer OTHER, SELFPAY ==
[2025-07-06] VITALS (40 sets, daily range): BP systolic 85–120; BP diastolic 56–82; PULSE 65–93; TEMP 36.1–37; O2SAT 74–99
--- OUTSIDE RECORDS SUMMARY | 2025-07-06 05:29 | XMS_ITS | CCD ---
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 Name Role Phone Sidney Nava Unavailable Unavailable [...] REQUEST, NONE LISTED Primary Care Unavaila ble SOO, CRISTHIAN SPAIN Consulting Unavailable PAY, DR BAL [...] PRINGLE Attending Unavailable MEE PRINGLE Attending Unavailable PARADISE OLVERA Attending Unavailable MEE PRINGLE Attending Unavailable Allergies Allergy Classification Reported Allergen(s) Allergy Type Date of Onset Reaction(s) Facility (2 sources) Penicillins; Translations: [PENICILLINS] Drug allergy (disorder) 3 [facility]ository (20 sources) Penicillin G Drug Allergy 5 [facility] Healthcare Work Phone: (4 sources) Penicillins Propensity to adverse reactions to drug 0 [facility] (18 sources) Penicillins Propensity to adverse reactions 0 [facility] Healthcare Medications Current Medications Medication Drug [...] morning. Active FLUoxetine 40 mg oral capsule (4 sources) Serotonin Reuptake Inhibitor FLUoxetine (PROzac) 40 mg capsule Take 60 mg by mouth daily. Active gabapentin 100 mg oral capsule (20 sources) Anti-epileptic Agent End: 06-20-20 take 1 capsule by mouth at bedtime gabapentin (NEURONTIN) 100 mg capsule Take 1 capsule (100 mg total) by mouth before bedtime. Active hydrOXYzine pamoate 100 mg oral capsule (4 sources) Antihistamine take 1 capsule by mouth once daily hydrOXYzine (VISTARIL) 100 mg capsule Take 100 mg by mouth daily. Active naltrexone microspheres (VIVITROL IM) (4 sources) naltrexone microspheres (VIVITROL IM) Inject into the appropriate muscle. Active no115/iron/folic acid ( 19 ORAL) (2 sources) take 1 tablet by mouth at bedtime [...] Drug Class(es) Dates Sig (Normalized) Sig (Original) magnesium oxide 400 mg oral tablet (20 [...] Translations: [Encounter for sterilization] 05-02-2025 Episodic Hepatitis (7 sources) Viral hepatitis C; Translations: [Unspecified viral hepatitis C without hepatic coma] Onset: 05-30-2025 05-30-2025 Episodic Hepatitis (1 source) Hepatitis Onset: 05-30-2025 Immunizations and screening for infectious disease (2 sources) Exposure to sexually transmissible disorder; Translations: [Contact with and (suspected) exposure to infections with a predominantly sexual mode of transmission] 07-04-2025 Episodic Menstrual disorders (1 source) Missed period; Translations: [Irregular menstruation, unspecified] 04-06-2025 Chronic Other complications of (1 source) Headache; Translations: [Other specified related conditions, second trimester] 04-13-2025 Episodic Other female genital disorders (4 sources) Other specified conditions associated with female genital organs and menstrual cycle; Translations: [OTH SPEC COND FE GEN ORG MENST CYCL] Onset: 12-10-2022 Episodic Other female genital disorders (2 sources) Vaginal discharge; Translations: [Other specified noninflammatory disorders of vagina] 07-04-2025 Episodic Other and delivery including normal (16 sources) ; Translations: [Encounter for supervision of [...] of ] 05-02-2025 Episodic Residual codes; unclassified (11 sources) History of placental abruption; Translations: [Personal [...] [35 weeks gestation of ] 06-27-2025 Episodic Residual codes; unclassified (2 sources) Gestation period, 36 weeks; Translations: [36 weeks gestation of ] 07-04-2025 Episodic Substance-related disorders (12 sources) Nicotine dependence, cigarettes, uncomplicated; Translations: [Opioid [...] 07-31-2022 Episodic Other aftercare (5 sources) Other mold capper helper (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 therapy; Translations: [OTH COSTUMER CURRENT DRUG THERAPY] Onset: 07-31-2022 Episodic Other [...] Facil ity Urinalysis macro (dipstick) panel (U)on 07-04-2025 Bilirubin, UA Negative Negative - 4(70) +++ mg/dL [facility] Blood, UA Negative Negative - 50 Amador/mcL [facility] Clarity, UA Clear [facility] Color, UA Yellow [facility] Glucose, UA Negative Negative - 1999(110) ++++ mg/dL [facility] Interpretation and review of laboratory results Abnormal [facility] Ketones, UA Negative Negative - 160(16) ++++ mg/dL [facility] Leukocytes, UA Positive Negative - 500+++ Camille/mcL [facility] Comment on above: 3+ Nitrite, UA Negative Negative - Positive [facility] pH, UA 6 5 - 9 [facility] Protein, UA Negative Negative - 1999(20) ++++ mg/dL [facility] Spec Grav, UA 1.01 1 - 1.03 [facility] Urobilinogen, UA 1.0 0.2 - 12 mg/dL [facility] US OB BPP W NON-STRESS on 07-03-[address] [address] Ultrasound Report Signed Patient: CARMELITA CASON MR#: [id number] : 1990 Acct:[id number] Age/Sex: 34 / F ADM Date: 07/03/25 Loc: [facility] 250-[address]: Mee Pringle D.O. Ordering Physician: Mee Pringle D.O. Date of Service: 07/03/25 Procedure(s): US OB BPP w non-stress Accession Number(s): [id number] cc: ROMEO GAR ; Mee Pringle D.O. [place] [address] Patient Name: CARMELITA CASON MRN: [id number] date: 1990 Sex: F Assigned Patient Location: Current Patient Location: US Accession/Order Number: [id number] Exam Date: 07/03/2025 10:12 Report Date: 07/03/2025 10:55 At the request of: MEE PRINGLE DO Procedure: US OB BPP w non-stress BIOPHYSICAL PROFILE: CLINICAL INFORMATION: History of opioid abuse COMPARISON: 07/01/2025 There is a single live anterior gestation in cephalic presentation. The reported gestational age is 36 weeks 3 days. The heart rate [id number] beats per minute. The inspector packer glass container noted the bowel loops to have slightly thickened and echogenic rodriguez, undetermined significance. FINDINGS: TONE: 1 or more episodes of activity extension and flexion of extremity or opening and closing of the hand [Y] 2/2 GROSS BODY MOVEMENTS: 3 or more discrete body or limb movements [Y] 2/2 BREATHING MOVEMENTS: 1 or more episodes of breathing lasting at least 30 seconds [Y] 2/2 ELIZABETH: A single deepest vertical pocket of amniotic fluid greater than 2 cm [Y] 2/2 ELIZABETH: 19.7 cm . This is in upper normal range. Total score: 06/08 US/US OB BPP w non-stress IMPRESSION: NORMAL BIOPHYSICAL PROFILE. Impression dictated by: Raine Zelaya M.D. 07/03/2025 10:55 AM Dictation Location: [place] [address] Electronically authenticated by: [id number] Y Date: 07/03/2025 10:55 Dictated By: Raine Zelaya M.D. Signed By: 07/03/25 1058 DD/ 54 TD/TT: Forestry Scientist: [facility] Radiology, Radiologist, - 07/03/2025 [place] [address] Ultrasound Report Signed Patient: CARMELITA CASON MR#: [id number] : 1990 Acct:[id number] Age/Sex: 34 / F ADM Date: 07/03/25 Loc: [facility] 250-[address]: Mee Pringle D.O. Ordering Physician: Mee Pringle D.O. Date of Service: 07/03/25 Procedure(s): US OB BPP w non-stress Accession Number(s): [id number] cc: ROMEO GAR ; Mee Pringle D.O. The [place] [address] Patient Name: CARMELITA CASON MRN: [facility]:[id number] date: 1990 Sex: F Assigned Patient Location: US Current Patient Location: US Accession/Order Number: [id number] Exam Date: 07/03/2025 10:12 Report Date: 07/03/2025 10:55 At the request of: MEE PRINGLE DO Procedure: US OB BPP w non-stress BIOPHYSICAL PROFILE: CLINICAL INFORMATION: History of opioid abuse COMPARISON: 07/01/2025 There is a single live anterior gestation in cephalic presentation. The reported gestational age is 36 weeks 3 days. The heart rate beats per minute. The inspector packer glass container noted the bowel loops to have slightly thickened and echogenic rodriguez, undetermined significance. FINDINGS: TONE: 1 or more episodes of activity extension and flexion of extremity or opening and closing of the hand [Y] 2/2 GROSS BODY MOVEMENTS: 3 or more discrete body or limb movements [Y] 2/2 BREATHING MOVEMENTS: 1 or more episodes of breathing lasting at least 30 seconds [Y] 2/2 ELIZABETH: A single deepest vertical pocket of amniotic fluid greater than 2 cm [Y] 2/2 ELIZABETH: 19.7 cm . This is in upper normal range. Total score: 06/08 US/US OB BPP w non-stress IMPRESSION: NORMAL BIOPHYSICAL PROFILE. Impression dictated by: Raine Zelaya M.D. 07/03/2025 10:55 AM Dictation Location: [place] [address] Electronically authenticated by: [id number] Y Date: 07/03/2025 10:55 Dictated By: Raine Zelaya M.D. Signed By: 07/03/258 DD/ 54 TD/TT: Forestry Scientist: [facility] Radiology Study observation (narrative) [facility] US OB BPP W NON-STRESS Ordered By: Radiologist Radiology on 07-03-2025 [facility] Healthcare Work Phone: No Panel InformationOrdered By: Radiologist Radiology on 07-01-2025 [facility] Work Phone: No Panel Informationon 07-01 Radiology Study observation (narrative) [facility] TBH UA (CLEAN/CATCH) BABBITT SPINNER/DEMETRA RO IF IND.on 07-01-2025 BILIRUBIN URINE Negative NEGATIVE [facility] Healthcare BLOOD URINE Negative NEGATIVE [facility] Clarity (U) CLEAR CLEAR [facility] Color (U) LT. YELLOW [facility] GLUCOSE URINE UA Negative NEGATIVE mg/dL [facility] Interpretation and review of laboratory results Abnormal [facility] Ketones Ql (U) Negative NEGATIVE mg/dL [facility] Leukocyte esterase Test strip Ql (U) MODERATE Abnormal NEGATIVE [facility] NITRITE URINE Negative NEGATIVE [facility] pH (U) 6.5 [pH] 5.0 - 9.0 [facility] PROTEIN URINE Negative NEG/TRACE mg/dL [facility] SPECIFIC GRAVITY URINE 1.015 1.005 - 1.025 [facility] URINE MICROSCOPIC INDICATED YES [facility] UROBILINOGEN URINE 0.2 EU/dL 0.2 - 1.0 EU/dL [facility]PP W NON-STRESS on 07-01-[address] [address] Ultrasound Report Signed Patient: CARMELITA CASON MR#: [id number] : 1990 Acct:[id number] Age/Sex: 34 / F ADM Date: Loc: [facility] 250-[address]: Mee Pringle D.O. Ordering Physician: Mee Pringle D.O. Date of Service: 07/01/25 Procedure(s): US OB BPP w non-stress Accession Number(s): [id number] cc: ROMEO GAR ; Mee Pringle D.O. [place] [address] Patient Name: CARMELITA CASON MRN: [id number] date: 1990 Sex: F Assigned Patient Location: [facility] Current Patient Location: [facility] Accession/Order Number: [id number] Exam Date: 07/01/2025 08:59 Report Date: 07/01/2025 [...] Frazier M.D. 07/01/2025 9:41 AM Dictation Location: [place] [address] Electronically authenticated by: [id number] Y Date: 07/01/2025 09:41 Dictated By: Anton Frazier M.D. Signed By: 07/01/2544 DD/ 0 TD/TT: Forestry Scientist: [facility] Radiology, Radiologist, MD - 07/01/2025 [place] [address] Ultrasound Report Signed Patient: CARMELITA CASON MR#: [id number] : 1990 Acct:[id number] Age/Sex: 34 / F ADM Date: Loc: [facility] 250-[address]: Mee Pringle D.O. Ordering Physician: Mee Pringle D.O. Date of Service: 07/01/25 Procedure(s): US OB BPP w non-stress Accession Number(s): [id number] cc: ROMEO GAR ; Mee Pringle D.O. The [place] [address] Patient Name: CARMELITA CASON MRN: [facility]:[id number] date: 1990 Sex: F Assigned Patient Location: [facility] Current Patient Location: [facility] Accession/Order Number: [id number] Exam Date: 07/01/2025 08:59 Report Date: 07/01/2025 [...] Frazier M.D. 07/01/2025 9:41 AM Dictation Location: [place] [address] Electronically authenticated by: [id number] Y Date: 07/01/2025 09:41 Dictated By: Anton Frazier M.D. Signed By: 07/01/2544 DD/ 0 TD/TT: Forestry Scientist: HALEY Faulkner US OB PLACENTAon 07-01-2025 [place] [address] Ultrasound Report Signed Patient: CARMELITA CASON MR#: [id number] : 1990 Acct:[id number] Age/Sex: 34 / F ADM Date: Loc: [facility] 250-[address]: Mee Pringle D.O. Ordering Physician: Mee Pringle D.O. Date of Service: 07/01/25 Procedure(s): US OB placenta Accession Number(s): [id number] cc: ROMEO GAR ; Mee Pringle D.O. [place] [address] Patient Name: CARMELITA CASON MRN: TBH:[id number] date: 1990 Sex: F Assigned Patient Location: [facility] Current Patient Location: [facility] Accession/Order Number: [id number] Exam Date: 07/01/2025 08:59 Report Date: 07/01/2025 [...] Frazier M.D. 07/01/2025 9:41 AM Dictation Location: [place] [address] Electronically authenticated by: [id number] Y Date: 07/01/2025 09:41 Dictated By: Anton Frazier M.D. Signed By: 07/01/2544 DD/ 0 TD/TT: Forestry Scientist: [facility] Radiology, Radiologist, MD - 07/01/2025 [place] [address] Ultrasound Report Signed Patient: CARMELITA CASON MR#: [id number] : 1990 Acct:[id number] Age/Sex: 34 / F ADM Date: Loc: [facility] 250-[address]: Mee Pringle D.O. Ordering Physician: Mee Pringle D.O. Date of Service: 07/01/25 Procedure(s): US OB placenta Accession Number(s): [id number] cc: ROMEO GAR ; Mee Pringle D.O. The [place] [id number] Patient Name: CARMELITA CASON MRN: [facility]:[id number] date: 1990 Sex: F Assigned Patient Location: [facility] Current Patient Location: [facility] Accession/Order Number: [id number] Exam Date: 07/01/2025 08:59 Report Date: 07/01/2025 [...] Frazier M.D. 07/01/2025 9:41 AM Dictation Location: [facility] Electronically authenticated by: [id number] Y Date: 07/01/2025 09:41 Dictated By: Anton Frazier M.D. Signed By: 07/01/2544 DD/ 0 TD/TT: Forestry Scientist: [facility] Urinalysis macro (dipstick) panel (U)on 06-27-2025 Bilirubin, UA Negative Negative - 4(70) +++ mg/dL [facility] Blood, UA Negative Negative - 50 Amador/mcL [facility] Clarity, UA Clear [facility] Color, UA Yellow [facility] Glucose, UA Negative Negative - 1999(110) ++++ mg/dL [facility] Interpretation and review of laboratory results Abnormal [facility] Ketones, UA Negative Negative - 160(16) ++++ mg/dL [facility] Leukocytes, UA Positive Negative - 500+++ Camille/mcL [facility] Comment on above: Trace Nitrite, UA Negative Negative - Positive [facility] pH, UA 6.5 5 - 9 [facility] Protein, UA Negative Negative - 1999(20) ++++ mg/dL [facility] Spec Grav, UA 1005 1 - 1.03 [facility] Urobilinogen, UA 0.2 0.2 - 12 mg/dL [facility] Urinalysis macro (dipstick) panel (U)on 06-20-2025 Bilirubin, UA Negative Negative - 4(70) +++ mg/dL [facility] Blood, UA Negative Negative - 50 Amador/mcL [facility] Clarity, UA Clear [facility] Color, UA Yellow [facility] Glucose, UA Negative Negative - 1999(110) ++++ mg/dL [facility] Interpretation and review of laboratory results Abnormal [facility] Ketones, UA Negative Negative - 160(16) ++++ mg/dL [facility] Leukocytes, UA Positive Negative - 500+++ Camille/mcL [facility] Nitrite, UA Negative Negative - Positive [facility] pH, UA 6.5 5 - 9 [facility] Protein, UA Negative Negative - 2000(20) ++++ mg/dL [facility] Spec Grav, UA 1.01 1 - 1.03 [facility] Urobilinogen, UA 1.0 0.2 - 12 mg/dL [facility] TBH UA (CLEAN/CATCH) BABBITT SPINNER/DEMETRA RO IF IND.on 06-14-2025 BILIRUBIN URINE Negative NEGATIVE [facility] BLOOD URINE Negative NEGATIVE [facility] Clarity (U) CLEAR CLEAR [facility] Healthcare Color (U) LT. YELLOW YELLOW [facility] GLUCOSE URINE UA Negative NEGATIVE mg/dL [facility] Interpretation and review of laboratory results Abnormal [facility] Ketones Ql (U) Negative NEGATIVE mg/dL [facility] Leukocyte esterase Test strip Ql (U) TRACE Abnormal NEGATIVE [facility] NITRITE URINE Negative NEGATIVE [facility] pH (U) 7.0 [pH] 5.0 - 9.0 [facility] PROTEIN URINE Negative NEG/TRACE mg/dL [facility] SPECIFIC GRAVITY URINE <=1.005 Abnormal 1.005 - 1.025 [facility] URINE MICROSCOPIC INDICATED YES [facility] UROBILINOGEN URINE 0.2 EU/dL 0.2 - 1.0 EU/dL [facility] US OB BPP W NON-STRESS on 06-11-2025 [place] [address] Ultrasound Report Signed Patient: CARMELITA CASON MR#: [id number] : 1990 Acct:[id number] Age/Sex: 34 / F ADM Date: 06/11/25 Loc: US Attending Dr: Mee Pringle D.O. Ordering Physician: Mee Pringle D.O. Date of Service: 06/11/25 Procedure(s): US OB BPP w non-stress Accession Number(s): [id number] cc: ROMEO GAR ; Mee Pringle D.O. [place] [id number] Patient Name: CARMELITA CASON MRN: [facility]:[id number] date: 1990 Sex: F Assigned Patient Location: [facility] Current Patient Location: Accession/Order Number: [id number] Exam Date: 06/11/2025 11:44 Report Date: 06/11/2025 11:45 At the request of: MEE PRINGLE DO Procedure: US OB BPP w non-stress Biophysical profile. Reason for exam: History of placental abruption COMPARISON: 06/05/2025 TECHNIQUE: Transabdominal imaging of the gravid uterus was obtained. FINDINGS: The inspector packer glass container reports a BPP of 8 out of 8. ELIZABETH is normal at 21.3 cm. heart rate 142 bpm. US/US OB BPP w non-stress IMPRESSION: BPP 8 out of 8. Impression dictated by: Serafin Sorto Jr., D.O. 06/11/2025 11:45 AM Dictation Location: [place] [address] Electronically authenticated by: [id number] Y Date: 06/11/2025 11:45 Dictated By: Serafin Sorto M.D. Signed By: 06/11/25 1148 DD/ 1145 TD/TT: Forestry Scientist: [facility] Radiology, Radiologist, MD - 06/11/2025 [place] [address] Ultrasound Report Signed Patient: CARMELITA CASON MR#: [id number] : 1990 Acct:[id number] Age/Sex: 34 / F ADM Date: 06/11/25 Loc: US Attending Dr: Mee Pringle D.O. Ordering Physician: Mee Pringle D.O. Date of Service: 06/11/25 Procedure(s): US OB BPP w non-stress Accession Number(s): [id number] cc: ROMEO GAR ; Mee Pringle D.O. The [address] [address] Patient Name: CARMELITA CASON MRN: [facility]:[id number] date: 1990 Sex: F Assigned Patient Location: [facility] Current Patient Location: Accession/Order Number: [id number] Exam Date: 06/11/2025 11:44 Report Date: 06/11/2025 11:45 At the request of: MEE PRINGLE DO Procedure: US OB BPP w non-stress Biophysical profile. Reason for exam: History of placental abruption COMPARISON: 06/05/2025 TECHNIQUE: Transabdominal imaging of the gravid uterus was obtained. FINDINGS: The inspector packer glass container reports a BPP of 8 out of 8. ELIZABETH is normal at 21.3 cm. heart rate 142 bpm. US/US OB BPP w non-stress IMPRESSION: BPP 8 out of 8. Impression dictated by: Serafin Sorto Jr., D.O. 06/11/2025 11:45 AM Dictation Location: [facility] Electronically authenticated by: [id number] Y Date: 06/11/2025 11:45 Dictated By: Serafin Sorto M.D. Signed By: 06/11/25 1148 DD/ 1145 TD/TT: Forestry Scientist: [facility] Radiology Study observation (narrative) [facility] US OB BPP W NON-STRESS Ordered By: Radiologist Radiology on 06-11-2025 [facility] Work Phone: MLR HEMOGLOBIN A1Con 025 Glucose [Mass/Vol] 85 mg/dL [facility] HbA1c (Bld) [Mass fraction] 4.6 % 4.5 - 6.2 % [facility] Comment on above: ADA RECOMMENDED LIMI T 4.0 - 6.0 ADA THERAPEUTIC TARGET < 7.0 ACTION SUGGESTED > 7.0 [facility] Urinalysis macro (dipstick) panel (U)on 06-07-2025 Bilirubin, UA Negative Negative - 4(70) +++ mg/dL [facility] Blood, UA Negative Negative - 50 Amador/mcL [facility] Clarity, UA Clear [facility] Color, UA Yellow [facility] Glucose, UA Negative Negative - 2000(110) ++++ mg/dL [facility] Interpretation and review of laboratory results Abnormal [facility] Ketones, UA Negative Negative - 160(16) ++++ mg/dL [facility] Leukocytes, UA 3+ Negative - 500+++ Camille/mcL [facility] Nitrite, UA Negative Negative - Positive [facility] pH, UA 7.5 5 - 9 [facility] Protein, UA Negative Negative - 2000(20) ++++ mg/dL [facility] Spec Grav, UA 1.01 1 - 1.03 [facility] Urobilinogen, UA 1.0 0.2 - 12 mg/dL [facility] US OB BPP W NON-STRESS on 06-05-2025 [place] [address] Ultrasound Report Signed Patient: CARMELITA CASON MR#: [id number] : 1990 Acct:[id number] Age/Sex: 34 / F ADM Date: 06/05/25 Loc: US Attending Dr: Mee Pringle D.O. Ordering Physician: Mee Pringle D.O. Date of Service: 06/05/25 Procedure(s): US OB BPP w non-stress Accession Number(s): [id number] cc: ROMEO GAR ; Mee Pringle D.O. [place] [address] Patient Name: CARMELITA CASON MRN: TBH:[id number] date: 1990 Sex: F Assigned Patient Location: Current Patient Location: Accession/Order Number: [id number] Exam Date: 06/05/2025 11:53 Report Date: 06/05/2025 12:03 At the request of: MEE PRINGLE DO Procedure: US OB BPP w non-stress Biophysical profile. Reason for exam: History of opioid abuse COMPARISON: None TECHNIQUE: Transabdominal imaging of the gravid uterus was obtained. FINDINGS: The inspector packer glass container reports a BPP of 8 out of 8. ELIZABETH is normal at 21 cm. heart rate 135 bpm. US/US OB BPP w non-stress IMPRESSION: BPP 8 out of 8. Impression dictated by: Serafin Sorto Jr., D.O. 06/05/2025 12:03 PM Dictation Location: [employer] Electronically authenticated by: [id number] Y Date: 06/05/2025 12:03 Dictated By: Serafin Sorto M.D. Signed By: 06/05/25 1206 DD/ 1203 TD/TT: Forestry Scientist: [facility] Radiology, Radiologist, - 06/05/2025 [place] [address] Ultrasound Report Signed Patient: CARMELITA CASON MR#: [id number] : 1990 Acct:[id number] Age/Sex: 34 / F ADM Date: 06/05/25 Loc: US Attending Dr: Mee Pringle D.O. Ordering Physician: Mee Pringle D.O. Date of Service: 06/05/25 Procedure(s): US OB BPP w non-stress Accession Number(s): [id number] cc: ROMEO GAR ; Mee Pringle D.O. The [place] [address] Patient Name: CARMELITA CASON MRN: [facility]:[id number] date: 1990 Sex: F Assigned Patient Location: Current Patient Location: Accession/Order Number: [id number] Exam Date: 06/05/2025 11:53 Report Date: 06/05/2025 12:03 At the request of: MEE PRINGLE DO Procedure: US OB BPP w non-stress Biophysical profile. Reason for exam: History of opioid abuse COMPARISON: None TECHNIQUE: Transabdominal imaging of the gravid uterus was obtained. FINDINGS: The inspector packer glass container reports a BPP of 8 out of 8. ELIZABETH is normal at 21 cm. heart rate 135 bpm. US/US OB BPP w non-stress IMPRESSION: BPP 8 out of 8. Impression dictated by: Serafin Sorto Jr., D.O. 06/05/2025 12:03 PM Dictation Location: [employer] Electronically authenticated by: [id number] Y Date: 06/05/2025 12:03 Dictated By: Serafin Sorto M.D. Signed By: 06/05/25 1206 DD/ 1203 TD/TT: Forestry Scientist: [facility] Radiology Study observation (narrative) [facility] OB BPP W NON-STRESS Ordered By: Radiologist Radiology on 06-05-2025 [facility] Work Phone: CBC without diffOrdered By: Paradise Raya on 05-21-2025 Hematocrit (Bld) [Volume fraction] 30.6 % [facility] Hemoglobin (Bld) [Mass/Vol] 10.8 g/dL [facility] Platelets (Bld) [#/Vol] 176 10*3/uL [facility] Rbc Mcv (Fl) By Automated Count 79.3 [facility] Drug Screen, Urineon 025 Amphetamine/Methamphet amine Negative [facility] Barbiturates Negative [facility] Benzodiazepines Negative [facility] Cocaine Metabolite Negative [facility] Methadone Negative [facility] Opiates Negative [facility] Oxycodone Negative [facility] Phencyclidine Negative [facility] Thc Marijuana, Urine Negative [facility] HBV surface Ag IA Qlon 05-21 Hepatitis B Surface Antigen Negative [facility] HCV Ab IA Qlon 05-21-2025 HCV Ab Ql (S) Reactive [facility] HIV 1+2 Ab+HIV1 p24 Ag IA Ql on 05-21-2025 HIV 1&2 AB/AG Non-Reactive [facility] Hemoglobin A1con 05-21-2025 HbA1c (Bld) [Mass fraction] 4.7 % 4.0 - 6.0 % [facility] No Panel Informationon 05-21 [facility] Rubella IGG immune statuson 05-21-2025 Rubella immune IgG [facility] T. pallidum IgG+IgM IA Ql (S )on 05-21-2025 Syphilis Non-Reactive [facility] DRUG SCREEN RAPID (URINE )on 05-21-2025 AMPHETAMINE SCREEN URINE Negative NEGATIVE [facility] BARBITURATES SCREEN URINE Negative NEGATIVE [facility] BENZODIAZEPINES SCREEN URINE Negative NEGATIVE [facility] BUPRENORPHINE SCREEN URINE Positive Abnormal NEGATIVE [facility] Comment on above: DRUG CLASS TEST [...] 300 ng/mL CANNABINOID SCREEN URINE Negative NEGATIVE [facility] COCAINE SCREEN URINE Negative NEGATIVE [facility] Interpretation and review of laboratory results Abnormal [facility] METHADONE SCREEN URINE Negative NEGATIVE NO MS [facility] METHAMPHETAMINES SCREEN URINE Negative NEGATIVE [facility] OPIATE SCREEN URINE Negative NEGATIVE [facility] OXYCODONE SCREEN URINE Negative NEGATIVE NO [facility] PHENCYCLIDINE SCREEN URINE Negative NEGATIVE [facility] TRICYCLIC ANTIDEPRESSANT URINE Negative NEGATIVE [facility] CLINISYNC Type and screenon 05-21-2025 Abo/Rh(D) Positive [facility] Urinalysis macro (dipstick) panel (U)on 05-16-2025 Bilirubin, UA Negative Negative - 4(70) +++ mg/dL [facility] Blood, UA Negative Negative - 50 Amador/mcL [facility] Clarity, UA Clear [facility] Color, UA Yellow [facility] Glucose, UA Negative Negative - 1999(110) ++++ mg/dL [facility] Interpretation and review of laboratory results Abnormal [facility] Ketones, UA Negative Negative - 160(16) ++++ mg/dL [facility] Leukocytes, UA Moderate Negative - 500+++ Camille/mcL [facility] Nitrite, UA Negative Negative - Positive [facility] pH, UA 6.5 5 - 9 [facility] Protein, UA Negative Negative - 1999(20) ++++ mg/dL [facility] Spec Grav, UA 1.02 1 - 1.03 [facility] Urobilinogen, UA 1.0 0.2 - 12 mg/dL [facility] Urinalysis macro (dipstick) panel (U)on 06-18-2025 Bilirubin, UA Negative Negative - 4(70) +++ mg/dL [facility] Blood, UA Negative Negative - 50 Amador/mcL [facility] Clarity, UA Clear [facility] Color, UA Yellow [facility] Glucose, UA Negative Negative - 2000(110) ++++ mg/dL [facility] Interpretation and review of laboratory results Abnormal [facility] Ketones, UA Negative Negative - 160(16) ++++ mg/dL [facility] Leukocytes, UA Positive Negative - 500+++ Camille/mcL [facility] Nitrite, UA Negative Negative - Positive [facility] pH, UA 7.5 5 - 9 [facility] Protein, UA Negative Negative - 2000(20) ++++ mg/dL [facility] Spec Grav, UA 1.015 1 - 1.03 [facility] Urobilinogen, UA 0.2 0.2 - 12 mg/dL [facility] No Panel InformationOrdered By: Radiologist Radiology on 04-09-2025 [facility] Work Phone: No Panel Informationon 04-09 Radiology Study observation (narrative) [facility] US OB ANATOMYon 04-09-[address] [address] Ultrasound Report Signed Patient: CARMELITA CASON MR#: [id number] : 1990 Acct:[id number] Age/Sex: 34 / F ADM Date: 04/09/25 Loc: US Attending Dr: Paradise Olvera Ordering Physician: Paradise Olvera Date of Service: 04/09/25 Procedure(s): US OB anatomy Accession Number(s): [id number] cc: ROMEO Quinonez [address] [address] Patient Name: CARMELITA CASON MRN: [id number] date: 1990 Sex: F Assigned Patient Location: US Current Patient Location: US Accession/Order Number: [id number] Exam Date: 04/09/2025 12:20 Report Date: 04/09/2025 [...] all 4 extremities were surveyed by the inspector packer glass container. No abnormalities were detected. The stomach, bladder, [...] Zelaya M.D. 04/09/2025 1:01 PM Dictation Location: [place] [address] Electronically authenticated by: [id number] Y Date: 04/09/2025 13:01 Dictated By: Raine Zelaya M.D. Signed By: 04/09/25 1304 DD/ 1301 TD/TT: Forestry Scientist: [facility] Radiology, Radiologist, MD - 04/09/[address] [address] Ultrasound Report Signed Patient: CARMELITA CASON MR#: [id number] : 1990 Acct:[id number] Age/Sex: 34 / F ADM Date: 04/09/25 Loc: US Attending Dr: Paradise Olvera Ordering Physician: Paradise Olvera Date of Service: 04/09/25 Procedure(s): US OB anatomy Accession Number(s): [id number] cc: Paradise Olvera; ROMEO GAR [address] [address] Patient Name: CARMELITA CASON MRN: [id number] date: 1990 Sex: F Assigned Patient Location: US Current Patient Location: US Accession/Order Number: [id number] Exam Date: 04/09/2025 12:20 Report Date: 04/09/2025 [...] all 4 extremities were surveyed by the inspector packer glass container. No abnormalities were detected. The stomach, bladder, [...] Zelaya M.D. 04/09/2025 1:01 PM Dictation Location: [place] [address] Electronically authenticated by: [id number] Y Date: 04/09/2025 13:01 Dictated By: Raine Zelaya M.D. Signed By: 04/09/25 1304 DD/ 1301 TD/TT: Forestry Scientist: [facility] OB CERVICAL LENGTHon [address] [address] Ultrasound Report Signed Patient: CARMELITA CASON MR#: [id number] : 1990 Acct:[id number] Age/Sex: 34 / F ADM Date: 04/09/25 Loc: US Attending Dr: Paradise Olvera Ordering Physician: Paradise Olvera Date of Service: 04/09/25 Procedure(s): US OB cervical length Accession Number(s): [id number] cc: Paradise Olvera; ROMEO GAR [place] [id number] Patient Name: CARMELITA CASON MRN: [id number] date: 1990 Sex: F Assigned Patient Location: US Current Patient Location: US Accession/Order Number: [id number] Exam Date: 04/09/2025 12:20 Report Date: 04/09/2025 [...] all 4 extremities were surveyed by the inspector packer glass container. No abnormalities were detected. The stomach, bladder, [...] Zelaya M.D. 04/09/2025 1:01 PM Dictation Location: [place] [address] Electronically authenticated by: [id number] Y Date: 04/09/2025 13:01 Dictated By: Raine Zelaya M.D. Signed By: 04/09/25 1304 DD/ 1301 TD/TT: Forestry Scientist: [facility] Radiology, Radiologist, MD - 04/09/2025 [place] [address] Ultrasound Report Signed Patient: CARMELITA CASON MR#: [id number] : 1990 Acct:[id number] Age/Sex: 34 / F ADM Date: 04/09/25 Loc: US Attending Dr: Paradise Olvera Ordering Physician: Paradise Olvera Date of Service: 04/09/25 Procedure(s): US OB cervical length Accession Number(s): [id number] cc: ROMEO Quinonez The [place] [id number] Patient Name: CARMELITA CASON MRN: [facility]:[id number] date: 1990 Sex: F Assigned Patient Location: US Current Patient Location: US Accession/Order Number: [id number] Exam Date: 04/09/2025 12:20 Report Date: 04/09/2025 13:01 At the request of: PARADISE WADE Procedure: US OB anatomy CLINICAL DATA: Screening [...] all 4 extremities were surveyed by the inspector packer glass container. No abnormalities were detected. The stomach, bladder, [...] Zelaya M.D. 04/09/2025 1:01 PM Dictation Location: [place] [address] Electronically authenticated by: [id number] Y Date: 04/09/2025 13:01 Dictated By: Raine Zelaya M.D. Signed By: 04/09/25 1304 DD/ 1301 TD/TT: Forestry Scientist: [facility] HCG ( test) Ql (U)O rdered By: Arabella Hill on 04-06-2025 Interpretation and review of laboratory results Abnormal [facility] Preg Test, Ur Positive Negative [facility] Urinalysis macro (dipstick) panel (U)on 04-06-2025 Bilirubin, UA Negative Negative - 4(70) +++ mg/dL [facility] Blood, UA Negative Negative - 50 Amador/mcL [facility] Clarity, UA Clear [facility] Color, UA Yellow [facility] Glucose, UA Negative Negative - 2000(110) ++++ mg/dL [facility] Interpretation and review of laboratory results Normal [facility] Ketones, UA Negative Negative - 160(16) ++++ mg/dL [facility] Leukocytes, UA Negative Negative - 500+++ Camille/mcL [facility] Nitrite, UA Negative Negative - Positive [facility] pH, UA 6.5 5 - 9 [facility] Protein, UA Negative Negative - 1999(20) ++++ mg/dL [facility] Spec Grav, UA 1.02 1 - 1.03 [facility] Urobilinogen, UA 1.0 0.2 - 12 mg/dL [facility] US OB L= 14 [place] [address] Ultrasound Report Signed Patient: CARMELITA CASON MR#: [id number] : 1990 Acct:[id number] Age/Sex: 34 / F ADM Date: 01/22/25 Loc: US Attending Dr: Mee Pringle D.O. Ordering Physician: Mee Pringle D.O. Date of Service: 01/22/25 Procedure(s): US OB <= 14 weeks fetus Accession Number(s): [id number] cc: ROMEO GAR ; Mee Pringle D.O. The [place] [id number] Patient Name: CARMELITA CASON MRN: [id number] date: 1990 Sex: F Assigned Patient Location: US Current Patient Location: US Accession/Order Number: [id number] Exam Date: 01/22/2025 14:49 Report Date: 01/22/2025 [...] Sorto Jr., D.O.01/22/2025 2:50 PM Dictation Location: [place] [address] Electronically authenticated by: [id number] Y Date: 01/22/2025 14:50 Dictated By: Serafin Sorto M.D. Signed By: 01/22/25 1453 DD/ 1450 TD/TT: Forestry Scientist: [facility] Radiology, Radiologist, MD - 01/22/2025 [place] [address] Ultrasound Report Signed Patient: CARMELITA CASON MR#: [id number] : 1990 Acct:[id number] Age/Sex: 34 / F ADM Date: 01/22/25 Loc: US Attending Dr: Mee Pringle D.O. Ordering Physician: Mee Pringle D.O. Date of Service: 01/22/25 Procedure(s): US OB <= 14 weeks fetus Accession Number(s): [id number] cc: ROMEO GAR ; Mee Pringle D.O. The [place] [address] Patient Name: CARMELITA CASON MRN: [facility]:[id number] date: 1990 Sex: F Assigned Patient Location: US Current Patient Location: US Accession/Order Number: [id number] Exam Date: 01/22/2025 14:49 Report Date: 01/22/2025 [...] Sorto Jr., D.O.01/22/2025 2:50 PM Dictation Location: [facility] Electronically authenticated by: [id number] Y Date: 01/22/2025 14:50 Dictated By: Serafin Sorto M.D. Signed By: 01/22/25 145 DD/ 1450 TD/TT: Forestry Scientist: [facility] Radiology Study observation (narrative) [facility] US OB L= 14 WEEKS FETUSOrder ed By: Radiologist Radiology on 01-22-2025 [facility] Work Phone: [facility] PREG QUANT HCGon 025 HCG QUANTITATIVE 3026 mIU/mL [facility] Comment on above: 5-50 0.2-1 WEEK 50-500 1-2 WEEKS 100-5,000 2-3 WEEKS 500-10,000 3-4 WEEKS 1,000-50,000 4-5 WEEKS 10,000-100,000 5-6 WEEKS 15,000-200,000 6-8 WEEKS 10,000-100,000 2-3 MONTHS CLINISYNC [facility] COMPLIANCE DRUG SCREENon PDF . Normal [facility] Comment on above: Performed By: #### D SDOAL #### [facility] [address] [place] [address] Dr. Roberto Parmar Summary FINAL Normal [place] [...] is an expected metabolite of dextromethorphan, an oftu-bom-klebdnx or prescription cough suppressant. Levorphanol is a scheduled prescription medication. Dextrorphan cannot be distinguished from levorphanol by the method used for analysis. Guaifenesin PRESENT UNEXPECTED Guaifenesin may be administered as an aqzn-his-wwwrncv or prescription drug; it may also be [...] ===== Performed By: #### D SDOALC #### [facility] [address] [place] [address] Dr. Roberto Parmar URIC ACID RAND URINEon 09-03 Uric Acid, Urine 12.4 mg/dL Normal Not Estab. The [facility] Comment on above: Performed By: #### U RICUR #### [facility] [address] [place] [address] Dr. Roberto Parmar DRUG SCREEN RAPID (URINE)on 09-02-2022 AMP Negative Normal NEGATIVE [facility] Comment on above: Performed By: #### D RUGRPD #### [facility] [address] [place] [address] Dr. Roberto Parmar BAR Negative Normal NEGATIVE [facility] Comment on above: Performed By: #### D RUGRPD #### [facility] [address] [place] [address] Dr. Roberto Parmar BUP Positive Abnormal NEGATIVE [facility] Comment on above: Performed By: #### D RUGRPD #### [facility] [address] [place] [address] [address] Roberto Parmar BZO Positive Abnormal NEGATIVE [facility] Comment on above: Performed By: #### D RUGRPD #### [facility] [address] [place] [address] Dr. Roberto Parmar BRITTANY Negative Normal NEGATIVE [facility] Comment on above: Performed By: #### D RUGRPD #### [facility] [address] [place] [address] Dr. Roberto Parmar CUT-OFFS SEE BELOW Normal [...] ng/mL Performed By: #### D RUGRPD #### [facility] [address] [place] [address] Dr. Roberto Parmar DRUG CUT HEADER DRUG CLASS TEST SYSTEM CUT-OFF CONCENTRATIONS ARE FOLLOWS: Normal [facility] Comment on above: Performed By: #### D RUGRPD #### [facility] [address] [place] [address] Dr. Roberto Parmar mAMP Negative Normal NEGATIVE [facility] Comment on above: Performed By: #### D RUGRPD #### [facility] [address] [place] [address] Dr. Roberto Parmar MTD Negative Normal NEGATIVE [facility] Comment on above: Performed By: #### D RUGRPD #### [facility] [address] [place] [address] Dr. Roberto Parmar OPI Negative Normal NEGATIVE [facility] Comment on above: Performed By: #### D RUGRPD #### [facility] [address] [place] [address] [address] Roberto Parmar OXY Negative Normal NEGATIVE [facility] Comment on above: Performed By: #### D RUGRPD #### [facility] [address] [place] [address] [address] Roberto Parmar PCP Negative Normal NEGATIVE [facility] Comment on above: Performed By: #### D RUGRPD #### [facility] [address] [place] [address] [address] Roberto Parmar PPX Negative Normal NEGATIVE [facility] Comment on above: Performed By: #### D RUGRPD #### [facility] [address] [place] [address] [address] Roberto Parmar TCA Negative Normal NEGATIVE [facility] Comment on above: Performed By: #### D RUGRPD #### [facility] [address] [place] [address] [address] Roberto Parmar THC Negative Normal NEGATIVE [facility] Comment on above: Performed By: #### D RUGRPD #### [facility] [address] [place] [address] [address] Roberto Parmar US PELVIS AND TRANSVAGon [...] authenticated by: MAYUR ALLEN Date: 2022-07-13 07:21 [facility] PAP ACOG PANEL 2: 23 to 31on 06-18-2022 . . Normal [facility] Comment on above: Performed By: #### 4 [id number] #### [facility] [address] [place] [address] [address] Roberto Parmar Age Gdln ACOG Testing - [facility] Comment on above: Performed By: #### 4 [id number] #### [facility] [address] [place] [address] Dr. Roberto Parmar DIAGNOSIS: Comment [facility] Comment on above: Result Comment: NEGA TIVE FOR INTRAEPITHELIAL LESION OR MALIGNANCY. Performed By: #### 4 [id number] #### [facility] [address] [place] [address] Dr. Roberto Parmar Methodology: Comment [facility] Comment on above: Result Comment: This liquid based ThinPrep(R) pap test was screened with the use of an image guided system. Performed By: #### 4 [id number] #### [facility] [address] [place] [address] Dr. Roberto Parmar Note: Comment [facility] Comment on above: Result Comment: The Pap smear is a screening test designed to aid in the detection of premalignant and malignant conditions of the uterine cervix. It is not a diagnostic procedure and should not be used as the sole means of detecting cervical cancer. Both false-positive and false-negative reports do occur. . Performed By: #### 4 [id number] #### [facility] [address] [place] [address] Dr. Roberto Parmar Performed by: Comment Normal [facility] Comment on above: Result Comment: Kishore De Dios Licensed Real Estate Broker (ASCP) Performed By: #### 4 [id number] #### [facility] [address] [place] [address] Dr. Roberto Parmar Reflex Criteria: Comment Normal [facility] Comment on above: Result Comment: The HPV DNA reflex criteria were not met with this specimen result therefore, no HPV testing was performed. . Performed By: #### 4 [id number] #### [facility] [address] [place] [address] [address] Roberto Parmar Specimen adequacy: Comment Normal [facility] Comment on above: Result Comment: Sati sfactory for evaluation. Endocervical and/or squamous metaplastic cells (endocervical component) are present. Performed By: #### 4 [id number] #### [facility] [address] [place] [address] Dr. Roberto Parmar CBCon 12-06-2020 Erythrocyte distribution width (RBC) [Ratio] 13.6 % Normal 11.8-14.4 [facility] Comment on above: Performed By: #### P HEP, HIVCMB #### [address] [address] Coagulant Dipper: Alvino Davila MD #### CP, CBC, HCG #### [facility] [address] [place] [id number] Coagulant Dipper: Luis A Peng MD Hematocrit (Bld) [Volume fraction] 44.1 % Normal 36.3-47.1 [facility] Comment on above: Performed By: #### P HEP, HIVCMB #### [address] [address] Coagulant Dipper: Alvino Davila MD #### CP, CBC, HCG #### [facility] [address] [place] [address] Coagulant Dipper: Luis A Peng MD Hemoglobin (Bld) [Mass/Vol] 14.1 g/dL Normal 11.9-15.1 [facility] Comment on above: Performed By: #### P HEP, HIVCMB #### [address] [address] Coagulant Dipper: Alvino Davila MD #### CP, CBC, HCG #### [address] [place] [address] Coagulant Dipper: Luis A Peng MD MCH (RBC) [Entitic mass] 25.4 pg Normal 25.2-33.5 [facility] Comment on above: Performed By: #### P HEP, HIVCMB #### [address] [address] Coagulant Dipper: Alvino Davila MD #### CP, CBC, HCG #### [address] [place] [address] Coagulant Dipper: Luis A Peng MD MCHC (RBC) [Mass/Vol] 32.0 g/dL Normal 28.4-34.8 [facility] Comment on above: Performed By: #### P HEP, HIVCMB #### [address] [address] Coagulant Dipper: Alvino Davila MD #### CP, CBC, HCG #### [address] [place] [address] Coagulant Dipper: Luis A Peng MD MCV (RBC) [Entitic vol] 79.5 fL Low 82.6-102.9 [facility] Comment on above: Performed By: #### P HEP, HIVCMB #### [address] [address] Coagulant Dipper: Alvino Davila MD #### CP, CBC, HCG #### [address] [place] [address] Coagulant Dipper: Luis A Peng MD NRBC Automated 0.0 per 100 WBC Normal 0.0 [facility] Comment on above: Performed By: #### P HEP, HIVCMB #### [address] [address] Coagulant Dipper: Alvino Davila MD #### CP, CBC, HCG #### [facility] [address] [place] [address] Coagulant Dipper: Luis A Peng MD Platelet mean volume (Bld) [Entitic vol] 11.8 fL Normal 8.1-13.5 [facility] Comment on above: Performed By: #### P HEP, HIVCMB #### [place] [address] [place] [address] Coagulant Dipper: Alvino Davila MD #### CP, CBC, HCG #### [address] [place] [address] Coagulant Dipper: Luis A Peng MD Platelets (Bld) [#/Vol] 238 10*3/uL Normal 138-453 [facility] Comment on above: Performed By: #### P HEP, HIVCMB #### [place] [address] [place], [place] [id number] Coagulant Dipper: Alvino Davila MD #### CP, CBC, HCG #### [address] [place] [address] Coagulant Dipper: Luis A Peng MD RBC (Bld) [#/Vol] 5.55 10*6/uL High 3.95-5.11 [facility] Comment on above: Performed By: #### P HEP, HIVCMB #### [place] [address] [place], [place] [id number] Coagulant Dipper: Alvino Davila MD #### CP, CBC, HCG #### [address] [place] [address] Coagulant Dipper: Luis A Peng MD WBC (Bld) [#/Vol] 8.6 10*3/uL Normal 3.5-11.3 [facility] Comment on above: Performed By: #### P HEP, HIVCMB #### [place] [address] [place] [address] Coagulant Dipper: Alvino Davila MD #### CP, CBC, HCG #### [facility] [address] [place] [address] Coagulant Dipper: Luis A Peng MD Erythrocyte distribution width (RBC) [Ratio] 13.6 % 11.8 - 14.4 % [place], [place] Hematocrit (Bld) [Volume fraction] 44.1 % 36.3 - 47.1 % [place] Hemoglobin (Bld) [Mass/Vol] 14.1 g/dL 11.9 - 15.1 g/dL [place] Interpretation and review of laboratory results Abnormal [place] MCH (RBC) [Entitic mass] 25.4 pg 25.2 - 33.5 pg [place] MCHC (RBC) [Mass/Vol] 32.0 g/dL 28.4 - 34.8 g/dL [place] MCV (RBC) [Entitic vol] 79.5 fL Low 82.6 - 102.9 fL [place] Platelet mean volume (Bld) [Entitic vol] 11.8 fL 8.1 - 13.5 fL [place] Platelets (Bld) [#/Vol] 238 10*3/uL [place] RBC (Bld) [#/Vol] 5.55 10*6/uL High 3.95 - 5.1 1 m/uL [place] WBC (Bld) [#/Vol] 8.6 10*3/uL [place] WBC (Bld) [#/Vol] 0.0 10*3/uL 0.0 per 100 WBC M [place], [place] Comp Metabolic Profon 2020 (cont.) Normal [facility] Comment on above: Result Comment: Aver age GFR for 20-29 years old: 116 mL/min/1.73sq m Chronic Kidney Disease: <60 mL/min/1.73sq m Kidney failure: <15 mL/min/1.73sq m eGFR calculated using average adult body mass. Additional eGFR calculator available at: http://www.[facility].Source4Style/multiple_crcl_2012.htm Performed By: #### P HEP, HIVCMB #### [address] [address] Coagulant Dipper: Alvino Davila MD #### CP, CBC, HCG #### [address] [place] [id number] Coagulant Dipper: Luis A Peng MD Albumin [Mass/Vol] 4.6 g/dL Normal 3.5-5.2 [facility] Comment on above: Performed By: #### P HEP, HIVCMB #### [address] [address] Coagulant Dipper: Alvino Davila MD #### CP, CBC, HCG #### [address] [place] [address] Coagulant Dipper: Luis A Peng MD Albumin/Globulin [Mass ratio] 1.6 {ratio} Normal 1.0-2.5 [facility] Comment on above: Performed By: #### P HEP, HIVCMB #### [address] [address] Coagulant Dipper: Alvino Davila MD #### CP, CBC, HCG #### [address] [place] [address] Coagulant Dipper: Luis A Peng MD Alkaline Phos 81 U/L Normal 35-104 [facility] Comment on above: Performed By: #### P HEP, HIVCMB #### [address] [address] Coagulant Dipper: Alvino Davila MD #### CP, CBC, HCG #### [address] [place] [address] Coagulant Dipper: Luis A Peng MD ALT [Catalytic activity/Vol] 39 U/L High 5-33 [facility] Comment on above: Performed By: #### P HEP, HIVCMB #### [address] [address] Coagulant Dipper: Alvino Davila MD #### CP, CBC, HCG #### [facility] [address] [place], [place] [address] Coagulant Dipper: Luis A Peng MD Anion gap [Moles/Vol] 12 mmol/L Normal 9-17 [facility] Comment on above: Performed By: #### P HEP, HIVCMB #### [address] [address] Coagulant Dipper: Alvino Davila MD #### CP, CBC, HCG #### [facility] [address] [place] [id number] Coagulant Dipper: Luis A Peng MD AST [Catalytic activity/Vol] 28 U/L Normal <32 [facility] Comment on above: Performed By: #### P HEP, HIVCMB #### [address] [address] Coagulant Dipper: Alvino Davila MD #### CP, CBC, HCG #### [facility] [address] [place], [place] [phone] Coagulant Dipper: Luis A Peng MD Bilirubin Ql (U) 0.26 mg/dL Low 0.3-1.2 [facility] Comment on above: Performed By: #### P HEP, HIVCMB #### [address] [address] Coagulant Dipper: Alvino Davila MD #### CP, CBC, HCG #### [facility] [address] [place], [place] [id number] Coagulant Dipper: Luis A Peng MD BUN/CRE Ratio 14 Normal 9-20 [facility] Comment on above: Performed By: #### P HEP, HIVCMB #### [place] [address] [place] [address] Coagulant Dipper: Alvino Davila MD #### CP, CBC, HCG #### [facility] [address] [place], [place] [phone] Coagulant Dipper: Luis A Peng MD Calcium [Mass/Vol] 10.1 mg/dL Normal 8.6-10.4 [facility] Comment on above: Performed By: #### P HEP, HIVCMB #### [address] [address] Coagulant Dipper: Alvino Davila MD #### CP, CBC, HCG #### [facility] [address] [place], [place] [id number] Coagulant Dipper: Luis A Peng MD Chloride [Moles/Vol] 101 mmol/L Normal 98-107 [facility] Comment on above: Performed By: #### P HEP, HIVCMB #### [address] [address] Coagulant Dipper: Alvino Davila MD #### CP, CBC, HCG #### [facility] [address] [place] [address] [place], [place] [id number] Coagulant Dipper: Luis A Peng MD CO2 [Moles/Vol] 26 mmol/L Normal 20-31 [facility] Comment on above: Performed By: #### P HEP, HIVCMB #### [address] [address] Coagulant Dipper: Alvino Davila MD #### CP, CBC, HCG #### [facility] [address] [place] [address] Coagulant Dipper: Luis A Peng MD Creatinine [Mass/Vol] 0.49 mg/dL Low 0.50-0.90 [facility] Comment on above: Performed By: #### P HEP, HIVCMB #### [address] [address] Coagulant Dipper: Alvino Davila MD #### CP, CBC, HCG #### [facility] [address] [place], [place] [phone] Coagulant Dipper: Luis A Peng MD GFR, Amer >60 Normal >60 [facility] Comment on above: Performed By: #### P HEP, HIVCMB #### [address] [address] Coagulant Dipper: Alvino Davila MD #### CP, CBC, HCG #### [address] [place], [place] [phone] Coagulant Dipper: Luis A Peng MD GFR,non Amer >60 Normal >60 [facility] Comment on above: Performed By: #### P HEP, HIVCMB #### [address] [address] Coagulant Dipper: Alvino Davila MD #### CP, CBC, HCG #### [address] [place], [place] 6571683 Coagulant Dipper: Luis A Peng MD Glucose [Mass/Vol] 101 mg/dL High 70-99 [facility] Comment on above: Performed By: #### P HEP, HIVCMB #### [address] [address] Coagulant Dipper: Alvino Davila MD #### CP, CBC, HCG #### [address] [place] [address] Coagulant Dipper: Luis A Peng MD Potassium [Moles/Vol] 4.2 mmol/L Normal 3.7-5.3 [facility] Comment on above: Performed By: #### P HEP, HIVCMB #### [address] [address] Coagulant Dipper: Alvino Davila MD #### CP, CBC, HCG #### [facility] [address] [place] [address] Coagulant Dipper: Luis A Peng MD Protein [Mass/Vol] 7.5 g/dL Normal 6.4-8.3 [facility] Comment on above: Performed By: #### P HEP, HIVCMB #### [facility] [address] [place] [address] Coagulant Dipper: Alvino Davila MD #### CP, CBC, HCG #### [facility] [address] [place] [address] Coagulant Dipper: Luis A Peng MD Sodium [Moles/Vol] 139 mmol/L Normal 135-144 [facility] Comment on above: Performed By: #### P HEP, HIVCMB #### [address] [address] Coagulant Dipper: Alvino Davila MD #### CP, CBC, HCG #### [facility] [address] [place] [address] [place] [address] Coagulant Dipper: Luis A Peng MD Staging: Normal [facility] Comment on above: Result Comment: Stag e 1: Some kidney damage normal GFR Stage 2: Mild kidney damage GFR 60-89 Stage 3: Moderate kidney damage GFR 30-59 Stage 4: Severe kidney damage GFR 15-29 Stage 5: Severe kidney damage GFR <15 ESRD - chronic treatment by dialysis or transplant Performed By: #### P HEP, HIVCMB #### [facility] [address] [place] [address] Coagulant Dipper: Alvino Davila MD #### CP, CBC, HCG #### [facility] [address] [place] [address] Coagulant Dipper: Luis A Peng MD Urea nitrogen [Mass/Vol] 7 mg/dL Normal 6-20 [facility] Comment on above: Performed By: #### P HEP, HIVCMB #### [facility] [address] [place] [address] Coagulant Dipper: Alvino Davila MD #### CP, CBC, HCG #### [facility] [address] [place] [address] Coagulant Dipper: Luis A Peng MD Comprehensive Metabolic Pane liu 12-06-2020 Albumin [Mass/Vol] 4.6 g/dL 3.5 - 5.2 g/dL [place], [place] Albumin/Globulin [Mass ratio] 1.6 {ratio} [place], [place] ALP [Catalytic activity/Vol] 81 U/L 35 - 104 U/L [place] ALT [Catalytic activity/Vol] 39 U/L High 5 - 33 U/L [place] Anion gap [Moles/Vol] 12 mmol/L 9 - 17 mmol/L [place] AST [Catalytic activity/Vol] 28 U/L <32 [place] Bilirubin Ql (U) 0.26 mg/dL Low 0.3 - 1.2 mg/dL [place], [place] Bun/Cre Ratio 14 [place], [place] Calcium [Mass/Vol] 10.1 mg/dL 8.6 - 10. 4 mg/dL [place] Chloride [Moles/Vol] 101 mmol/L 98 - 107 mmol/L [place] CO2 [Moles/Vol] 26 mmol/L 20 - 31 mmol/L [place] Creatinine [Mass/Vol] 0.49 mg/dL Low 0.5 - 0.9 mg/d L [place] GFR >60 >60 mL/min [place] GFR Non- >60 >60 mL/min [place] Glucose [Mass/Vol] 101 mg/dL High 70 - 99 mg/dL [place] Interpretation and review of laboratory results Abnormal [place] Potassium [Moles/Vol] 4.2 mmol/L 3.7 - 5.3 mmol/L [place] Protein [Mass/Vol] 7.5 g/dL 6.4 - 8.3 g/dL [place] Sodium [Moles/Vol] 139 mmol/L 135 - 144 mmol/L [place] Urea nitrogen [Mass/Vol] 7 mg/dL 6 - 20 mg/dL [place] HCG Qualitative, Serumon hCG Qual Negative NEGATIVE [place] Comment on above: Specimens with hCG l evels near the threshold of the test (25 mIU/mL) may give a negative or indeterminate result. In such cases, another test should be performed with a new specimen in 48-72 hours. If early is suspected clinically in this setting, correlation with quantitative serum b-hCG level is suggested. [facility] has confirmed the use of plasma for this test. This has not been cleared or approved by the U.S. Food and Drug Administration. The FDA has determined that such clearance is not necessary. HCG Screen, Bloodon 12-06-19 HCG Qn Negative Normal NEG [facility] Comment on above: Result Comment: Spec imens with hCG levels near the threshold of the test (25 mIU/mL) may give a negative or indeterminate result. In such cases, another test should be performed with a new specimen in 48-72 hours. If early is suspected clinically in this setting, correlation with quantitative serum b-hCG level is suggested. [facility] has confirmed the use of plasma for this test. This has not been cleared or approved by the U.S. Food and Drug Administration. The FDA has determined that such clearance is not necessary. Performed By: #### P HEP, HIVCMB #### [facility] [address] [place] [address] Coagulant Dipper: Alvino Davila MD #### CP, CBC, HCG #### [facility] [address] [place] [address] Coagulant Dipper: Luis A Peng MD HIV Ag/Abon 12-06-2020 HIV Ag/Ab NONREACTIVE Normal NR [facility] Comment on above: Result Comment: No l aboratory evidence of HIV infection. If acute HIV infection is suspected, consider testing for HIV-1 RNA. Performed By: #### P HEP, HIVCMB #### [address] [address] Coagulant Dipper: Alvino Davila MD #### CP, CBC, HCG #### [address] [place], [place] 0903483 Coagulant Dipper: Luis A Peng MD HIV Screenon 12-06-2020 HIV Ag/Ab NONREACTIVE NONREACTIVE [place] Comment on above: No laboratory eviden ce of HIV infection. If acute HIV infection is suspected, consider testing for HIV-1 RNA. Hepatitis Acute [facility] 12-06 Hep A Ab,IgM NONREACTIVE Normal NR [facility] Comment on above: Performed By: #### P HEP, HIVCMB #### [address] [address] Coagulant Dipper: Alvino Davila MD #### CP, CBC, HCG #### [address] [place] [address] Coagulant Dipper: Luis A Peng MD Hep B Core Ab,IgM NONREACTIVE Normal NR [facility] Comment on above: Performed By: #### P HEP, HIVCMB #### [address] [address] Coagulant Dipper: Alvino Davila MD #### CP, CBC, HCG #### [address] [place], [place] [phone] Coagulant Dipper: Luis A Peng MD Hep B Surf Ag NONREACTIVE Normal NR [facility] Comment on above: Performed By: #### P HEP, HIVCMB #### [address] [address] Coagulant Dipper: Alvino Davila MD #### CP, CBC, HCG #### [address] [place] [address] Coagulant Dipper: Luis A Peng MD Hep C Ab REACTIVE Abnormal NR [facility] Comment on above: Result Comment: [...] By: #### P HEP, HIVCMB #### [facility] [address] [place], [place] [id number] Coagulant Dipper: Alvino Davila MD #### CP, CBC, HCG #### [facility] [address] [place] [address] Coagulant Dipper: Luis A Peng MD Hepatitis Panel, Acuteon HAV IgM IA Qn (S) NONREACTIVE NONREACTIVE [place] Hep B Core Ab, IgM NONREACTIVE NONREACTIVE [place] Hepatitis B Surface Ag NONREACTIVE NONREACTIVE [place] Hepatitis C Ab REACTIVE Abnormal NONREACTIVE [place], [place] Comment on above: The hepatitis C [...] Interpretation and review of laboratory results Abnormal [place] Metabolic Panelon 12-06-2020 GFR/1.73 sq M predicted among non-blacks MDRD (S/P/Bld) [Vol rate/Area] [place], [place] Comment on above: Stage 1: Some [...] body mass. Additional eGFR calculator available at: http://www.[facility].Source4Style/multiple_crcl_2012.htm CBCon 05-30-2020 Erythrocyte distribution width (RBC) [Ratio] 12.7 % Normal 11.8-14.4 [facility] Comment on above: Performed By: #### C P, HCG, CBC #### [address] [place] [address] Coagulant Dipper: Luis A Peng MD #### HIVCMB, PHEP #### [address] [id number] Coagulant Dipper: Alvino Davila MD Hematocrit (Bld) [Volume fraction] 39.2 % Normal 36.3-47.1 [facility] Comment on above: Performed By: #### C P, HCG, CBC #### [address] [place] [phone] Coagulant Dipper: Luis A Peng MD #### HIVCMB, PHEP #### [address] [phone] Coagulant Dipper: Alvino Davila MD Hemoglobin (Bld) [Mass/Vol] 12.3 g/dL Normal 11.9-15.1 [facility] Comment on above: Performed By: #### C P, HCG, CBC #### [address] [place] [id number] Coagulant Dipper: Luis A Peng MD #### HIVCMB, PHEP #### [address] [phone] Coagulant Dipper: Alvino Davila MD MCH (RBC) [Entitic mass] 26.2 pg Normal 25.2-33.5 [facility] Comment on above: Performed By: #### C P, HCG, CBC #### [address] [place] 7[address]83 Coagulant Dipper: Luis A Peng MD #### HIVCMB, PHEP #### [address] [phone] Coagulant Dipper: Alvino Davila MD MCHC (RBC) [Mass/Vol] 31.4 g/dL Normal 28.4-34.8 [facility] Comment on above: Performed By: #### C P, HCG, CBC #### [address] [place] [phone] Coagulant Dipper: Luis A Peng MD #### HIVCMB, PHEP #### [address] [id number] Coagulant Dipper: Alvino Davila MD MCV (RBC) [Entitic vol] 83.6 fL Normal 82.6-102.9 [facility] Comment on above: Performed By: #### C P, HCG, CBC #### [address] [place] [phone] Coagulant Dipper: Luis A Peng MD #### HIVCMB, PHEP #### [address] [phone] Coagulant Dipper: Alvino Davila MD NRBC Automated 0.0 per 100 WBC Normal 0.0 [facility] Comment on above: Performed By: #### C P, HCG, CBC #### [address] [place] [phone] Coagulant Dipper: Luis A Peng MD #### HIVCMB, PHEP #### [address] [id number] Coagulant Dipper: Alvino Davila MD Platelet mean volume (Bld) [Entitic vol] 10.9 fL Normal 8.1-13.5 [facility] Comment on above: Performed By: #### C P, HCG, CBC #### [facility] [address] [place], [place] [phone] Coagulant Dipper: Luis A Peng MD #### HIVCMB, PHEP #### [address] [place] [address] Coagulant Dipper: Alvino Davila MD Platelets (Bld) [#/Vol] 277 10*3/uL Normal 138-453 [facility] Comment on above: Performed By: #### C P, HCG, CBC #### [address] [place] [address] Coagulant Dipper: Luis A Peng MD #### HIVCMB, PHEP #### [address] [address] Coagulant Dipper: Alvino Davila MD RBC (Bld) [#/Vol] 4.69 10*6/uL Normal 3.95-5.11 [facility] Comment on above: Performed By: #### C P, HCG, CBC #### [address] [place], [place] 4092683 Coagulant Dipper: Luis A Peng MD #### HIVCMB, PHEP #### [address] [address] Coagulant Dipper: Alvino Davila MD WBC (Bld) [#/Vol] 5.5 10*3/uL Normal 3.5-11.3 [facility] Comment on above: Performed By: #### C P, HCG, CBC #### [facility] [address] [place], [place] 6013783 Coagulant Dipper: Luis A Peng MD #### HIVCMB, PHEP #### [address] [place] [address] Coagulant Dipper: Alvino Davila MD Erythrocyte distribution width (RBC) [Ratio] 12.7 % 11.8 - 14.4 % [place] Hematocrit (Bld) [Volume fraction] 39.2 % 36.3 - 47.1 % [place] Hemoglobin (Bld) [Mass/Vol] 12.3 g/dL 11.9 - 15.1 g/dL [place] MCH (RBC) [Entitic mass] 26.2 pg 25.2 - 33.5 pg [place] MCHC (RBC) [Mass/Vol] 31.4 g/dL 28.4 - 34.8 g/dL [place] MCV (RBC) [Entitic vol] 83.6 fL 82.6 - 102.9 fL [place] Platelet mean volume (Bld) [Entitic vol] 10.9 fL 8.1 - 13.5 fL [place] Platelets (Bld) [#/Vol] 277 10*3/uL [place] RBC (Bld) [#/Vol] 4.69 10*6/uL 3.95 - 5.1 1 m/uL [place] WBC (Bld) [#/Vol] 5.5 10*3/uL [place] WBC (Bld) [#/Vol] 0.0 10*3/uL 0.0 per 100 WBC M [place], [place] Comp Metabolic Profon 2019 (cont.) Normal [facility] Comment on above: Result Comment: Aver age GFR for 20-29 years old: 116 mL/min/1.73sq m Chronic Kidney Disease: <60 mL/min/1.73sq m Kidney failure: <15 mL/min/1.73sq m eGFR calculated using average adult body mass. Additional eGFR calculator available at: http://www.[facility].Source4Style/multiple_crcl_2011.htm Performed By: #### C P, HCG, CBC #### [facility] [address] [place] [address] Coagulant Dipper: Luis A Peng MD #### HIVCMB, PHEP #### [facility] [address] [place] [address] Coagulant Dipper: Alvino Davila MD Albumin [Mass/Vol] 3.4 g/dL Low 3.5-5.2 [facility] Comment on above: Performed By: #### C P, HCG, CBC #### [facility] [address] [place], [place] 7115383 Coagulant Dipper: Luis A Peng MD #### HIVCMB, PHEP #### [address] [address] Coagulant Dipper: Alvino Davila MD Albumin/Globulin [Mass ratio] 1.1 {ratio} Normal 1.0-2.5 [facility] Comment on above: Performed By: #### C P, HCG, CBC #### [facility] [address] [place] [address] [place], [place] [id number] Coagulant Dipper: Luis A Peng MD #### HIVCMB, PHEP #### [address] [address] Coagulant Dipper: Alvino Davila MD Alkaline Phos 130 U/L High 35-104 [facility] Comment on above: Performed By: #### C P, HCG, CBC #### [facility] [address] [place] [address] [place] [address] Coagulant Dipper: Luis A Peng MD #### HIVCMB, PHEP #### [address] [address] Coagulant Dipper: Alvino Davila MD ALT [Catalytic activity/Vol] 33 U/L Normal 5-33 [facility] Comment on above: Performed By: #### C P, HCG, CBC #### [facility] [address] [place] [address] [place] [address] Coagulant Dipper: Luis A Peng MD #### HIVCMB, PHEP #### [address] [id number] Coagulant Dipper: Alvino Davila MD Anion gap [Moles/Vol] 7 mmol/L Low 9-17 [facility] Comment on above: Performed By: #### C P, HCG, CBC #### [facility] [address] [place] [address] Coagulant Dipper: Luis A Peng MD #### HIVCMB, PHEP #### [address] [phone] Coagulant Dipper: Alvino Davila MD AST [Catalytic activity/Vol] 35 U/L High <32 [facility] Comment on above: Performed By: #### C P, HCG, CBC #### [facility] [address] [place] [address] [place] [address] Coagulant Dipper: Luis A Peng MD #### HIVCMB, PHEP #### [address] [phone] Coagulant Dipper: Alvino Davila MD Bilirubin Ql (U) 0.16 mg/dL Low 0.3-1.2 [facility] Comment on above: Performed By: #### C P, HCG, CBC #### [facility] [address] [place] [address] [place] [address] Coagulant Dipper: Luis A Peng MD #### HIVCMB, PHEP #### [address] [id number] Coagulant Dipper: Alvino Davila MD BUN/CRE Ratio 14 Normal 9-20 [facility] Comment on above: Performed By: #### C P, HCG, CBC #### [facility] [address] [place] [address] [place] [address] Coagulant Dipper: Luis A Peng MD #### HIVCMB, PHEP #### [address] [id number] Coagulant Dipper: Alvino Davila MD Calcium [Mass/Vol] 9.2 mg/dL Normal 8.6-10.4 [facility] Comment on above: Performed By: #### C P, HCG, CBC #### [facility] [address] [place] [address] Coagulant Dipper: Luis A Peng MD #### HIVCMB, PHEP #### [address] [id number] Coagulant Dipper: Alvino Davila MD Chloride [Moles/Vol] 99 mmol/L Normal 98-107 [facility] Comment on above: Performed By: #### C P, HCG, CBC #### [facility] [address] [place] [phone] Coagulant Dipper: Luis A Peng MD #### HIVCMB, PHEP #### [address] [id number] Coagulant Dipper: Alvino Davila MD CO2 [Moles/Vol] 29 mmol/L Normal 20-31 [facility] Comment on above: Performed By: #### C P, HCG, CBC #### [address] [place], [place] 1777483 Coagulant Dipper: Luis A Peng MD #### HIVCMB, PHEP #### [address] [phone] Coagulant Dipper: Alvino Davila MD Creatinine [Mass/Vol] 0.63 mg/dL Normal 0.50-0.90 [facility] Comment on above: Performed By: #### C P, HCG, CBC #### [facility] [address] [place], [place] 9146783 Coagulant Dipper: Luis A Peng MD #### HIVCMB, PHEP #### [address] [address] Coagulant Dipper: Alvino Davila MD GFR, Amer >60 Normal >60 [facility] Comment on above: Performed By: #### C P, HCG, CBC #### [facility] [address] [place], [place] 1183083 Coagulant Dipper: Luis A Peng MD #### HIVCMB, PHEP #### [address] [id number] Coagulant Dipper: Alvino Davila MD GFR,non Amer >60 Normal >60 [facility] Comment on above: Performed By: #### C P, HCG, CBC #### [facility] [address] [place], [place] [phone] Coagulant Dipper: Luis A Peng MD #### HIVCMB, PHEP #### [address] [address] Coagulant Dipper: Alvino Davila MD Glucose [Mass/Vol] 95 mg/dL Normal 70-99 [facility] Comment on above: Performed By: #### C P, HCG, CBC #### [facility] [address] [place], [place] 8127083 Coagulant Dipper: Luis A Peng MD #### HIVCMB, PHEP #### [address] [address] Coagulant Dipper: Alvino Davila MD Potassium [Moles/Vol] 4.3 mmol/L Normal 3.7-5.3 [facility] Comment on above: Performed By: #### C P, HCG, CBC #### [facility] [address] [place], [place] 7992083 Coagulant Dipper: Luis A Peng MD #### HIVCMB, PHEP #### [address] [address] Coagulant Dipper: Alvino Davila MD Protein [Mass/Vol] 6.5 g/dL Normal 6.4-8.3 [facility] Comment on above: Performed By: #### C P, HCG, CBC #### [facility] [address] [place], [place] [phone] Coagulant Dipper: Luis A Peng MD #### HIVCMB, PHEP #### [address] [address] Coagulant Dipper: Alvino Davila MD Sodium [Moles/Vol] 135 mmol/L Normal 135-144 [facility] Comment on above: Performed By: #### C P, HCG, CBC #### [facility] [address] [place], [place] 5785083 Coagulant Dipper: Luis A Peng MD #### HIVCMB, PHEP #### [address] [address] Coagulant Dipper: Alvino Davila MD Staging: Normal [facility] Comment on above: Result Comment: Stag e 1: Some kidney damage normal GFR Stage 2: Mild kidney damage GFR 60-89 Stage 3: Moderate kidney damage GFR 30-59 Stage 4: Severe kidney damage GFR 15-29 Stage 5: Severe kidney damage GFR <15 ESRD - chronic treatment by dialysis or transplant Performed By: #### C P, HCG, CBC #### [address] [place], [place] [phone] Coagulant Dipper: Luis A Peng MD #### HIVCMB, PHEP #### [address] [address] Coagulant Dipper: Alvino Davila MD Urea nitrogen [Mass/Vol] 9 mg/dL Normal 6-20 [facility] Comment on above: Performed By: #### C P, HCG, CBC #### [facility] [address] [place], [place] [phone] Coagulant Dipper: Luis A Peng MD #### HIVCMB, PHEP #### [address] [address] Coagulant Dipper: Alvino Davila MD Comprehensive Metabolic Pane liu 05-30-2020 Albumin [Mass/Vol] 3.4 g/dL Low 3.5 - 5.2 g/dL [place] Albumin/Globulin [Mass ratio] 1.1 {ratio} [place] ALP [Catalytic activity/Vol] 130 U/L High 35 - 104 U/L [place] ALT [Catalytic activity/Vol] 33 U/L 5 - 33 U/L [place] Anion gap [Moles/Vol] 7 mmol/L Low 9 - 17 mmol/L [place] AST [Catalytic activity/Vol] 35 U/L High <32 [place] Bilirubin Ql (U) 0.16 mg/dL Low 0.3 - 1.2 mg/dL [place] Bun/Cre Ratio 14 [place] Calcium [Mass/Vol] 9.2 mg/dL 8.6 - 10. 4 mg/dL [place] Chloride [Moles/Vol] 99 mmol/L 98 - 107 mmol/L [place] CO2 [Moles/Vol] 29 mmol/L 20 - 31 mmol/L [place] Creatinine [Mass/Vol] 0.63 mg/dL 0.5 - 0.9 mg/d L [place] GFR >60 >60 mL/min [place] GFR Non- >60 >60 mL/min [place] Glucose [Mass/Vol] 95 mg/dL 70 - 99 mg/dL [place] Interpretation and review of laboratory results Abnormal [place] Potassium [Moles/Vol] 4.3 mmol/L 3.7 - 5.3 mmol/L [place] Protein [Mass/Vol] 6.5 g/dL 6.4 - 8.3 g/dL [place] Sodium [Moles/Vol] 135 mmol/L 135 - 144 mmol/L [place] Urea nitrogen [Mass/Vol] 9 mg/dL 6 - 20 mg/dL [facility] [place] [place] HCG Qualitative, Serumon hCG Qual Negative NEGATIVE [facility] [place] Comment on above: Specimens with hCG l evels near the threshold of the test (25 mIU/mL) may give a negative or indeterminate result. In such cases, another test should be performed with a new specimen in 48-72 hours. If early is suspected clinically in this setting, correlation with quantitative serum b-hCG level is suggested. [facility] has confirmed the use of plasma for this test. This has not been cleared or approved by the U.S. Food and Drug Administration. The FDA has determined that such clearance is not necessary. HCG Screen, Bloodon 05-30-20 20 HCG Qn Negative Normal NEG [facility] Comment on above: Result Comment: Spec imens with hCG levels near the threshold of the test (25 mIU/mL) may give a negative or indeterminate result. In such cases, another test should be performed with a new specimen in 48-72 hours. If early is suspected clinically in this setting, correlation with quantitative serum b-hCG level is suggested. [facility] has confirmed the use of plasma for this test. This has not been cleared or approved by the U.S. Food and Drug Administration. The FDA has determined that such clearance is not necessary. Performed By: #### C P, HCG, CBC #### [address] [place] [address] Coagulant Dipper: Luis A Peng MD #### HIVCMB, PHEP #### [address] [id number] Coagulant Dipper: Alvino Davila MD HIV Ag/Abon 05-30-2020 HIV Ag/Ab NONREACTIVE Normal NR [facility] Comment on above: Result Comment: No l aboratory evidence of HIV infection. If acute HIV infection is suspected, consider testing for HIV-1 RNA. Performed By: #### C P, HCG, CBC #### [facility] [address] [place] [address] Coagulant Dipper: Luis A Peng MD #### HIVCMB, PHEP #### [address] [address] Coagulant Dipper: Alvino Davila MD HIV Screenon 05-30-2020 HIV Ag/Ab NONREACTIVE NONREACTIVE [place], [place] Comment on above: No laboratory eviden ce of HIV infection. If acute HIV infection is suspected, consider testing for HIV-1 RNA. Hepatitis Acute [facility] 05-30 Hep A Ab,IgM NONREACTIVE Normal NR [facility] Comment on above: Performed By: #### C P, HCG, CBC #### [facility] [address] [place] [address] [place], [place] [id number] Coagulant Dipper: Luis A Peng MD #### HIVCMB, PHEP #### [address] [address] Coagulant Dipper: Alvino Davila MD Hep B Core Ab,IgM NONREACTIVE Normal [facility] Comment on above: Performed By: #### C P, HCG, CBC #### [address] [place], [place] [id number] Coagulant Dipper: Luis A Peng MD #### HIVCMB, PHEP #### [address] [address] Coagulant Dipper: Alvino Davila MD Hep B Surf Ag NONREACTIVE Normal [facility] Comment on above: Performed By: #### C P, HCG, CBC #### [address] [place] [address] Coagulant Dipper: Luis A Peng MD #### HIVCMB, PHEP #### [address] [address] Coagulant Dipper: Alvino Davila MD Hep C Ab NONREACTIVE Normal [facility] Comment on above: Result Comment: The hepatitis [...] C P, HCG, CBC #### [facility] [address] [place] [address] Coagulant Dipper: Luis A Peng MD #### HIVCMB, PHEP #### [facility] [address] [place] [address] Coagulant Dipper: Alvino Davila MD Hepatitis Panel, Acuteon HAV IgM IA Qn (S) NONREACTIVE NONREACTIVE [place], [place] Hep B Core Ab, IgM NONREACTIVE NONREACTIVE [place] Hepatitis B Surface Ag NONREACTIVE NONREACTIVE [place], [place] Hepatitis C Ab NONREACTIVE NONREACTIVE [place], [place] Comment on above: The hepatitis C [...] predicted among non-blacks MDRD (S/P/Bld) [Vol rate/Area] [place], [place] Comment on above: Stage 1: Some [...] body mass. Additional eGFR calculator available at: http://www.[facility].Source4Style/multiple_crcl_2012.htm CBCon 01-01-2020 Erythrocyte distribution width (RBC) [Ratio] 12.5 % Normal 11.8-14.4 [facility] Comment on above: Performed By: #### P HEP, HIVCMB #### [address] [address] Coagulant Dipper: Alvino Daivla MD #### CP, CBC, HCG #### [address] [place], [place] [id number] Coagulant Dipper: Luis A Peng MD Hematocrit (Bld) [Volume fraction] 40.2 % Normal 36.3-47.1 [facility] Comment on above: Performed By: #### P HEP, HIVCMB #### [address] [address] Coagulant Dipper: Alvino Davila MD #### CP, CBC, HCG #### [address] [place] [address] Coagulant Dipper: Luis A Peng MD Hemoglobin (Bld) [Mass/Vol] 13.1 g/dL Normal 11.9-15.1 [facility] Comment on above: Performed By: #### P HEP, HIVCMB #### [address] [address] Coagulant Dipper: Alvino Davila MD #### CP, CBC, HCG #### [address] [place] [address] Coagulant Dipper: Luis A Peng MD MCH (RBC) [Entitic mass] 28.4 pg Normal 25.2-33.5 [facility] Comment on above: Performed By: #### P HEP, HIVCMB #### [address] [address] Coagulant Dipper: Alvino Davila MD #### CP, CBC, HCG #### [address] [place] [address] Coagulant Dipper: Luis A Peng MD MCHC (RBC) [Mass/Vol] 32.6 g/dL Normal 28.4-34.8 [facility] Comment on above: Performed By: #### P HEP, HIVCMB #### [facility] [address] [place] [address] Coagulant Dipper: Alvino Davila MD #### CP, CBC, HCG #### [facility] [address] [place], [place] [phone] Coagulant Dipper: Luis A Peng MD MCV (RBC) [Entitic vol] 87.2 fL Normal 82.6-102.9 [facility] Comment on above: Performed By: #### P HEP, HIVCMB #### [address] [id number] Coagulant Dipper: Alvino Davila MD #### CP, CBC, HCG #### [facility] [address] [place] [address] [place] [address] Coagulant Dipper: Luis A Peng MD NRBC Automated 0.0 per 100 WBC Normal 0.0 [facility] Comment on above: Performed By: #### P HEP, HIVCMB #### [address] [address] Coagulant Dipper: Alvino Davila MD #### CP, CBC, HCG #### [facility] [address] [place] [address] [place] [address] Coagulant Dipper: Luis A Peng MD Platelet mean volume (Bld) [Entitic vol] 11.2 fL Normal 8.1-13.5 [facility] Comment on above: Performed By: #### P HEP, HIVCMB #### [address] [place] [address] Coagulant Dipper: Alvino Davila MD #### CP, CBC, HCG #### [facility] [address] [place] [address] Coagulant Dipper: Luis A Peng MD Platelets (Bld) [#/Vol] 241 10*3/uL Normal 138-453 [facility] Comment on above: Performed By: #### P HEP, HIVCMB #### [address] [place], [place] [phone] Coagulant Dipper: Alvino Davial MD #### CP, CBC, HCG #### [facility] [address] [place] [address] [place], [place] [phone] Coagulant Dipper: Luis A Peng MD RBC (Bld) [#/Vol] 4.61 10*6/uL Normal 3.95-5.11 [facility] Comment on above: Performed By: #### P HEP, HIVCMB #### [address] [id number] Coagulant Dipper: Alvino Davila MD #### CP, CBC, HCG #### [address] [place] [address] Coagulant Dipper: Luis A Peng MD WBC (Bld) [#/Vol] 9.0 10*3/uL Normal 3.5-11.3 [facility] Comment on above: Performed By: #### P HEP, HIVCMB #### [address] [id number] Coagulant Dipper: Alvino Davila MD #### CP, CBC, HCG #### [address] [place] [address] Coagulant Dipper: Luis A Peng MD Erythrocyte distribution width (RBC) [Ratio] 12.5 % 11.8 - 14.4 % [place] Hematocrit (Bld) [Volume fraction] 40.2 % 36.3 - 47.1 % [place] Hemoglobin (Bld) [Mass/Vol] 13.1 g/dL 11.9 - 15.1 g/dL [place] MCH (RBC) [Entitic mass] 28.4 pg 25.2 - 33.5 pg [place] MCHC (RBC) [Mass/Vol] 32.6 g/dL 28.4 - 34.8 g/dL [place] MCV (RBC) [Entitic vol] 87.2 fL 82.6 - 102.9 fL [place] Platelet mean volume (Bld) [Entitic vol] 11.2 fL 8.1 - 13.5 fL [place] Platelets (Bld) [#/Vol] 241 10*3/uL [place] RBC (Bld) [#/Vol] 4.61 10*6/uL 3.95 - 5.1 1 m/uL [place] WBC (Bld) [#/Vol] 0.0 10*3/uL 0.0 per 100 WBC M [place] WBC (Bld) [#/Vol] 9.0 10*3/uL [place] Comp Metabolic Profon 2019 (cont.) Normal [facility] Comment on above: Result Comment: Aver age GFR for 20-29 years old: 116 mL/min/1.73sq m Chronic Kidney Disease: <60 mL/min/1.73sq m Kidney failure: <15 mL/min/1.73sq m eGFR calculated using average adult body mass. Additional eGFR calculator available at: http://www.[employer]/multiple_crcl_2012.htm Performed By: #### P HEP, HIVCMB #### [address] [place], [place] [phone] Coagulant Dipper: Alvino Davila MD #### LAURA, CBC, HCG #### [address] [place] [address] Coagulant Dipper: Luis A Peng MD Albumin [Mass/Vol] 4.2 g/dL Normal 3.5-5.2 [facility] Comment on above: Performed By: #### P HEP, HIVCMB #### [address] [place], [place] [id number] Coagulant Dipper: Alvino Davila MD #### CP, CBC, HCG #### [address] [place], [place] [phone] Coagulant Dipper: Luis A Peng MD Albumin/Globulin [Mass ratio] 1.7 {ratio} Normal 1.0-2.5 [facility] Comment on above: Performed By: #### P HEP, HIVCMB #### [address] [address] Coagulant Dipper: Alvino Davila MD #### CP, CBC, HCG #### [address] [place] [id number] Coagulant Dipper: Luis A Peng MD Alkaline Phos 69 U/L Normal 35-104 [facility] Comment on above: Performed By: #### P HEP, HIVCMB #### [address] [address] Coagulant Dipper: Alvino Davila MD #### CP, CBC, HCG #### [address] [place] [phone] Coagulant Dipper: Luis A Peng MD ALT [Catalytic activity/Vol] 78 U/L High 5-33 [facility] Comment on above: Performed By: #### P HEP, HIVCMB #### [address] [address] Coagulant Dipper: Alvino Davila MD #### CP, CBC, HCG #### [address] [place] [phone] Coagulant Dipper: Luis A Peng MD Anion gap [Moles/Vol] 9 mmol/L Normal 9-17 [facility] Comment on above: Performed By: #### P HEP, HIVCMB #### [address] [address] Coagulant Dipper: Alvino Davila MD #### CP, CBC, HCG #### [address] [place] [phone] Coagulant Dipper: Luis A Peng MD AST [Catalytic activity/Vol] 44 U/L High <32 [facility] Comment on above: Performed By: #### P HEP, HIVCMB #### [address] [place] [address] Coagulant Dipper: Alvino Davila MD #### CP, CBC, HCG #### [facility] [address] [place], [place] [phone] Coagulant Dipper: Luis A Peng MD Bilirubin Ql (U) 0.15 mg/dL Low 0.3-1.2 [facility] Comment on above: Performed By: #### P HEP, HIVCMB #### [address] [address] Coagulant Dipper: Alvino Davila MD #### CP, CBC, HCG #### [facility] [address] [place] [phone] Coagulant Dipper: Luis A Peng MD BUN/CRE Ratio 20 Normal 9-20 [facility] Comment on above: Performed By: #### P HEP, HIVCMB #### [address] [address] Coagulant Dipper: Alvino Davila MD #### CP, CBC, HCG #### [facility] [address] [place], [place] [phone] Coagulant Dipper: Luis A Peng MD Calcium [Mass/Vol] 9.4 mg/dL Normal 8.6-10.4 [facility] Comment on above: Performed By: #### P HEP, HIVCMB #### [address] [address] Coagulant Dipper: Alvino Davila MD #### CP, CBC, HCG #### [facility] [address] [place], [place] 1304083 Coagulant Dipper: Luis A Peng MD Chloride [Moles/Vol] 97 mmol/L Low 98-107 [facility] Comment on above: Performed By: #### P HEP, HIVCMB #### [facility] [address] [place] [address] Coagulant Dipper: Alvino Davila MD #### CP, CBC, HCG #### [facility] [address] [place], [place] 0300883 Coagulant Dipper: Luis A Peng MD CO2 [Moles/Vol] 28 mmol/L Normal 20-31 [facility] Comment on above: Performed By: #### P HEP, HIVCMB #### [address] [address] Coagulant Dipper: Alvino Davila MD #### CP, CBC, HCG #### [facility] [address] [place], [place] 7274083 Coagulant Dipper: Luis A Peng MD Creatinine [Mass/Vol] 0.55 mg/dL Normal 0.50-0.90 [facility] Comment on above: Performed By: #### P HEP, HIVCMB #### [facility] [address] [place] [address] Coagulant Dipper: Alvino Davila MD #### CP, CBC, HCG #### [facility] [address] [place], [place] [phone] Coagulant Dipper: Luis A Peng MD GFR, Amer >60 Normal >60 [facility] Comment on above: Performed By: #### P HEP, HIVCMB #### [facility] [address] [place] [address] Coagulant Dipper: Alvino Davila MD #### CP, CBC, HCG #### [facility] [address] [place], [place] [phone] Coagulant Dipper: Luis A Peng MD GFR,non Amer >60 Normal >60 [facility] Comment on above: Performed By: #### P HEP, HIVCMB #### [address] [address] Coagulant Dipper: Alvino Davila MD #### CP, CBC, HCG #### [address] [place], [place] 7062183 Coagulant Dipper: Luis A Peng MD Glucose [Mass/Vol] 85 mg/dL Normal 70-99 [facility] Comment on above: Performed By: #### P HEP, HIVCMB #### [address] [address] Coagulant Dipper: Alvino Davila MD #### CP, CBC, HCG #### [address] [place] [address] Coagulant Dipper: Luis A Peng MD Potassium [Moles/Vol] 4.3 mmol/L Normal 3.7-5.3 [facility] Comment on above: Performed By: #### P HEP, HIVCMB #### [address] [address] Coagulant Dipper: Alvino Davila MD #### CP, CBC, HCG #### [address] [place] [address] Coagulant Dipper: Luis A Peng MD Protein [Mass/Vol] 6.7 g/dL Normal 6.4-8.3 [facility] Comment on above: Performed By: #### P HEP, HIVCMB #### [address] [address] Coagulant Dipper: Alvino Davila MD #### CP, CBC, HCG #### [address] [place] [address] Coagulant Dipper: Luis A Peng MD Sodium [Moles/Vol] 134 mmol/L Low 135-144 [facility] Comment on above: Performed By: #### P HEP, HIVCMB #### [address] [id number] Coagulant Dipper: Alvino Davila MD #### CP, CBC, HCG #### [facility] [address] [place] [address] [place] [address] Coagulant Dipper: Luis A Peng MD Staging: Normal [facility] Comment on above: Result Comment: Stag e 1: Some kidney damage normal GFR Stage 2: Mild kidney damage GFR 60-89 Stage 3: Moderate kidney damage GFR 30-59 Stage 4: Severe kidney damage GFR 15-29 Stage 5: Severe kidney damage GFR <15 ESRD - chronic treatment by dialysis or transplant Performed By: #### P HEP, HIVCMB #### [facility] [address] [place], [place] [phone] Coagulant Dipper: Alvino Davila MD #### CP, CBC, HCG #### [facility] [address] [place] [address] [place] [address] Coagulant Dipper: Luis A Peng MD Urea nitrogen [Mass/Vol] 11 mg/dL Normal 6-20 [facility] Comment on above: Performed By: #### P HEP, HIVCMB #### [facility] [address] [place], [place] [phone] Coagulant Dipper: Alvino Davila MD #### CP, CBC, HCG #### [facility] [address] [place] [address] [place] [address] Coagulant Dipper: Luis A Peng MD Comprehensive Metabolic [facility] 01-01-2020 Albumin [Mass/Vol] 4.2 g/dL 3.5 - 5.2 g/dL [place], [place] Albumin/Globulin [Mass ratio] 1.7 {ratio} [place] ALP [Catalytic activity/Vol] 69 U/L 35 - 104 U/L [place] ALT [Catalytic activity/Vol] 78 U/L High 5 - 33 U/L [place] Anion gap [Moles/Vol] 9 mmol/L 9 - 17 mmol/L [place] AST [Catalytic activity/Vol] 44 U/L High <32 [place] Bilirubin Ql (U) 0.15 mg/dL Low 0.3 - 1.2 mg/dL [place], [place] Bun/Cre Ratio 20 [place], [place] Calcium [Mass/Vol] 9.4 mg/dL 8.6 - 10. 4 mg/dL [place] Chloride [Moles/Vol] 97 mmol/L Low 98 - 107 mmol/L [place] CO2 [Moles/Vol] 28 mmol/L 20 - 31 mmol/L [place] Creatinine [Mass/Vol] 0.55 mg/dL 0.5 - 0.9 mg/d L [place] GFR >60 >60 mL/min [place] GFR Non- >60 >60 mL/min [place] Glucose [Mass/Vol] 85 mg/dL 70 - 99 mg/dL [place] Interpretation and review of laboratory results Abnormal [place] Potassium [Moles/Vol] 4.3 mmol/L 3.7 - 5.3 mmol/L [place] Protein [Mass/Vol] 6.7 g/dL 6.4 - 8.3 g/dL [place] Sodium [Moles/Vol] 134 mmol/L Low 135 - 144 mmol/L [place] Urea nitrogen [Mass/Vol] 11 mg/dL 6 - 20 mg/dL [place] HCG Qualitative, Serumon hCG Qual Negative NEGATIVE [place] Comment on above: Specimens with hCG l evels near the threshold of the test (25 mIU/mL) may give a negative or indeterminate result. In such cases, another test should be performed with a new specimen in 48-72 hours. If early is suspected clinically in this setting, correlation with quantitative serum b-hCG level is suggested. [facility] has confirmed the use of plasma for this test. This has not been cleared or approved by the U.S. Food and Drug Administration. The FDA has determined that such clearance is not necessary. HCG Screen, Bloodon 01-01-20 20 HCG Qn Negative Normal NEG [facility] Comment on above: Result Comment: Spec imens with hCG levels near the threshold of the test (25 mIU/mL) may give a negative or indeterminate result. In such cases, another test should be performed with a new specimen in 48-72 hours. If early is suspected clinically in this setting, correlation with quantitative serum b-hCG level is suggested. [facility] has confirmed the use of plasma for this test. This has not been cleared or approved by the U.S. Food and Drug Administration. The FDA has determined that such clearance is not necessary. Performed By: #### P HEP, HIVCMB #### [address] [address] Coagulant Dipper: Alvino Davila MD #### CP, CBC, HCG #### [address] [place] [address] Coagulant Dipper: Luis A Peng MD HIV Ag/Abon 01-01-2020 HIV Ag/Ab NONREACTIVE Normal NR [facility] Comment on above: Result Comment: No l aboratory evidence of HIV infection. If acute HIV infection is suspected, consider testing for HIV-1 RNA. Performed By: #### P HEP, HIVCMB #### [address] [address] Coagulant Dipper: Alvino Davila MD #### CP, CBC, HCG #### [address] [place] [address] Coagulant Dipper: Luis A Peng MD HIV Screenon 01-01-2020 HIV Ag/Ab NONREACTIVE NONREACTIVE [place] Comment on above: No laboratory eviden ce of HIV infection. If acute HIV infection is suspected, consider testing for HIV-1 RNA. Hepatitis Acute [place] 12-31 Hep A Ab,IgM NONREACTIVE Normal NR [facility] Comment on above: Performed By: #### P HEP, HIVCMB #### [address] [address] Coagulant Dipper: Alvino Davila MD #### CP, CBC, HCG #### [address] [place] [address] Coagulant Dipper: Luis A Peng MD Hep B Core Ab,IgM NONREACTIVE Normal [facility] Comment on above: Performed By: #### P HEP, HIVCMB #### [address] [place] [address] Coagulant Dipper: Alvino Davila MD #### CP, CBC, HCG #### [address] [place] [address] Coagulant Dipper: Luis A Peng MD Hep B Surf Ag NONREACTIVE Normal [facility] Comment on above: Performed By: #### P HEP, HIVCMB #### [address] [address] Coagulant Dipper: Alvino Davila MD #### CP, CBC, HCG #### [address] [place], [place] 4693983 Coagulant Dipper: Luis A Peng MD Hep C Ab NONREACTIVE Normal [facility] Comment on above: Result Comment: The hepatitis [...] By: #### P HEP, HIVCMB #### [address] [address] Coagulant Dipper: Alvino Davila MD #### CP, CBC, HCG #### [address] [place], [place] [phone] Coagulant Dipper: Luis A Peng MD Hepatitis Panel, Acuteon HAV IgM IA Qn (S) NONREACTIVE NONREACTIVE [place] Hep B Core Ab, IgM NONREACTIVE NONREACTIVE [place] Hepatitis B Surface Ag NONREACTIVE NONREACTIVE [place] Hepatitis C Ab NONREACTIVE NONREACTIVE [place] Comment on above: The hepatitis C [...] predicted among non-blacks MDRD (S/P/Bld) [Vol rate/Area] [place], [place] Comment on above: Stage 1: Some [...] body mass. Additional eGFR calculator available at: http://www.[employer]/multiple_crcl_2012.htm Vital Signs Date Time Vital Sign Value Performing Clinician Ld blackmon 07-04-2025 11:09040 Body mass index (BMI) [Ratio] 28.46 kg/m2 [employer] Work Phone: [facility] 07-04-2025 11:09040 Body weight 77.56 kg [employer] Work Phone: [facility] 07-04-2025 11:09040 Diastolic blood pressure 80 mm[Hg] [employer] Work Phone: [facility] 07-04-2025 11:09040 Systolic blood pressure 120 mm[Hg] [employer] Work Phone: [facility] 06-27-2025 10:02-0400 Body mass index (BMI) [Ratio] 28.04 kg/m2 Paradise MORROW Work Phone: [facility] 06-27-2025 10:02-0400 Body weight 76.43 kg Paradise Wade PA Work Phone: [facility] 06-27-2025 10:02-0400 Diastolic blood pressure 76 mm[Hg] Paradise Wade PA Work Phone: [facility] 06-27-2025 10:02-0400 Systolic blood pressure 120 mm[Hg] Paradise Wade PA Work Phone: [facility] 06-20-2025 14:32-0400 Body mass index (BMI) [Ratio] 28.09 kg/m2 Mee Yary DO Work Phone: [facility] 06-20-2025 14:32-0400 Body weight 76.57 kg Mee Yary DO Work Phone: [facility] 06-20-2025 14:32-0400 Diastolic blood pressure 80 mm[Hg] Mee Yary DO Work Phone: [facility] 06-20-2025 14:32-0400 Systolic blood pressure 120 mm[Hg] Mee Yary DO Work Phone: [facility] 06-07-2025 10:17-0400 Body mass index (BMI) [Ratio] 27.46 kg/m2 Mee Yary DO Work Phone: [facility] 06-07-2025 10:17-0400 Body weight 74.84 kg Mee Yary DO Work Phone: [facility] 06-07-2025 10:17-0400 Diastolic blood pressure 74 mm[Hg] Mee Yary DO Work Phone: [facility] 06-07-2025 10:17-0400 Systolic blood pressure 118 mm[Hg] Mee Yary DO Work Phone: [facility] 05-30-2025 09:30-0400 Body height 165.1 cm Nohemy Hernandez MD Work Phone: [facility] 05-30-2025 09:30-0400 Body mass index (BMI) [Ratio] 27.09 kg/m2 Nohemy Hernandez MD Work Phone: [facility] 05-30-2025 09:30-0400 Body weight 73.85 kg Nohemy Hernandez MD Work Phone: [facility] 05-30-2025 09:30-0400 Diastolic blood pressure 73 mm[Hg] Nohemy Hernandez MD Work Phone: [facility] 05-30-2025 09:30-0400 Heart rate 83 /min Nohemy Hernandez MD Work Phone: [facility] 05-30-2025 09:30-0400 Systolic blood pressure 110 mm[Hg] Nohemy Hernandez MD Work Phone: [facility] 05-30-2025 08:57-0400 Body height 165.1 cm Nohemy Hernandez MD Work Phone: [facility] 05-16-2025 10:59-0400 Body mass index (BMI) [Ratio] 26.46 kg/m2 Mee Yary DO Work Phone: [facility] 05-16-2025 10:59-0400 Body weight 72.12 kg Mee Yary DO Work Phone: [facility] 05-16-2025 10:59-0400 Diastolic blood pressure 70 mm[Hg] Mee Yary DO Work Phone: [facility] 05-16-2025 10:59-0400 Systolic blood pressure 110 mm[Hg] Mee Yary DO Work Phone: [facility] 05-02-2025 15:42-0400 Body mass index (BMI) [Ratio] 26.26 kg/m2 Mee Yary DO Work Phone: [facility] 05-02-2025 15:42-0400 Body weight 71.58 kg Mee Yary DO Work Phone: [facility] 05-02-2025 15:42-0400 Diastolic blood pressure 70 mm[Hg] Mee Yary DO Work Phone: [facility] 05-02-2025 15:42-0400 Systolic blood pressure 104 mm[Hg] Mee Yary DO Work Phone: [facility] 04-18-2025 13:35-0400 Body mass index (BMI) [Ratio] 25.79 kg/m2 Mee Yary DO Work Phone: [facility] 04-18-2025 13:35-0400 Body weight 70.31 kg Mee Yary DO Work Phone: [facility] 04-18-2025 13:35-0400 Diastolic blood pressure 64 mm[Hg] Mee Yary DO Work Phone: [facility] 04-18-2025 13:35-0400 Systolic blood pressure 112 mm[Hg] Mee Yary DO Work Phone: [facility] 04-06-2025 11:47-0400 Body mass index (BMI) [Ratio] 25.76 kg/m2 [facility] 04-06-2025 11:47-0400 Body weight 70.22 kg [facility] Nurse [facility] Healthcare Encounters Encounter Date Encounter Type Care Provider Facility Start: 07-05-2025 End: 07-05-2025 Telephone encounter Vera Chan RN [facility] Start: 07-04-2025 End: 07-04-2025 Bamboo flowsheet Mee Yary DO Work Phone: [facility] Start: 07-04-2025 End: 07-04-2025 Bamboo flowsheet Mee Yary DO Work Phone: [facility] Start: 07-04-2025 End: 07-04-2025 Office outpatient visit 15 minutes Mee Yary DO Work Phone: [facility] Comment on above: 36 weeks gestation o f ([facility] Third trimester ([facility]); H/O opioid abuse ([facility]); History of placental abruption; Hepatitis C virus infection without hepatic coma, unspecified chronicity ; Exposure to STD; Vaginal discharge Start: 07-04-2025 End: 07-04-2025 ambulatory MEE YARY Not Available Start: 07-03-2025 End: 07-03-2025 Clinisync Result Encounter Mee Yary DO Work Phone: [facility] Unsolicited Start: 07-03-2025 End: 07-03-2025 Clinisync Result Encounter Mee Yary DO Work Phone: [facility] Unsolicited Start: 07-01-2025 End: 07-01-2025 Clinisync Result Encounter Mee Yary DO Work Phone: [facility] Unsolicited Start: 07-01-2025 End: 07-01-2025 Clinisync Result Encounter Mee Yary DO Work Phone: [facility] Unsolicited Start: 06-27-2025 End: 06-27-2025 Bamboo flowsheet Paradise MORROW Work Phone: [facility] [place] [facility] Start: 06-27-2025 End: 06-27-2025 Bamboo flowsheet Paradise MORROW Work Phone: [facility] [place] [facility] Start: 06-27-2025 End: 06-27-2025 Office outpatient visit 15 minutes Paradise MORROW Work Phone: [facility] Comment on above: Third trimester preg helder ([facility]); 35 weeks gestation of ([facility] Start: 06-27-2025 End: 06-27-2025 ambulatory PARADISE OLVERA Not Available Start: 06-20-2025 End: 06-20-2025 Office outpatient visit 15 minutes Mee Yary DO Work Phone: [facility] Comment on above: 34 weeks gestation o f ([facility]); Third trimester ([facility]); H/O opioid abuse (CMS-HCC); History of placental abruption; Hepatitis C virus infection without hepatic coma, unspecified chronicity Start: 06-20-2025 End: 06-20-2025 ambulatory MEE YARY Not Available Start: 06-20-2025 End: 06-20-2025 Bamboo flowsheet Mee Yary DO Work Phone: [facility] Start: 06-20-2025 End: 06-20-2025 Bamboo flowsheet Mee Yary DO Work Phone: [facility] [place] [facility] Start: 06-14-2025 End: 06-14-2025 Clinisync Result [...] DO Work Phone: [facility] Start: 06-07-2025 End: 06-07-2025 Bamboo flowsheet Mee Yary DO Work Phone: [facility] Start: 06-07-2025 End: 06-07-2025 ambulatory MEE YARY Not Available Start: 06-07-2025 End: 06-07-2025 Office outpatient visit 15 minutes Mee Yary DO Work Phone: [facility] Comment on above: Third trimester preg helder ([facility]); 32 weeks gestation of ([facility]); H/O opioid abuse ([facility]); History of placental abruption; Diabetes mellitus screening Start: 06-05-2025 End: 06-05-2025 Clinisync Result Encounter Mee Yary DO Work Phone: [facility] Unsolicited Start: 06-05-2025 End: 06-05-2025 Clinisync Result Encounter Mee Yary DO Work Phone: [facility] Unsolicited Start: 05-30-2025 End: 05-30-2025 Chart abstracting Nohemy Hernandez MD Work Phone: [facility] Start: 05-30-2025 End: 05-30-2025 Office outpatient new 45 minutes Nohemy Hernandez MD Work Phone: [facility] Comment on above: History of placental abruption (Primary Dx); Hepatitis C virus infection without hepatic coma, unspecified chronicity Start: 05-30-2025 End: 05-30-2025 ambulatory MEE R [facility] Start: 05-21-2025 End: 05-21-2025 Clinisync Result [...] on above: 29 weeks gestation o f ([facility]); Third trimester ([facility]); Request for sterilization; H/O opioid abuse ([facility]); History of placental abruption Start: 05-16-2025 End: 05-16-2025 ambulatory MEE YARY Not Available Start: 05-02-2025 End: 05-02-2025 ambulatory MEE YARY Not Available Start: 05-02-2025 End: 05-02-2025 Office outpatient visit 15 minutes Mee Yary DO Work Phone: [facility] Comment on above: Second trimester pre gnancy ([facility]); 27 weeks gestation of ([facility]); Request for sterilization; H/O opioid abuse ([facility]); History of placental abruption Start: 05-02-2025 End: 05-02-2025 Bamboo flowsheet Mee Yary DO Work Phone: [facility] Start: 05-02-2025 End: 05-02-2025 Bamboo [...] 15 minutes Mee Yary DO Work Phone: [facility] Comment on above: Second trimester pre gnancy ([facility]); 25 weeks gestation of ([facility]) Start: 04-09-2025 End: 04-09-2025 Clinisync Result Encounter [...] 03-27-2021 End: 03-28-2021 ambulatory Helder Monk MD Facility:[facility] Start: 12-06-2020 End: 12-07-2020 Patient encounter procedure [facility] Start: 12-06-2020 End: 12-06-2020 Subsequent hospital visit by physician [facility] Start: 11-11-2020 End: 11-12-2020 Patient encounter procedure [facility] Start: 05-30-2020 End: 05-31-2020 Patient encounter procedure [facility] Start: 05-30-2020 End: 05-30-2020 Subsequent hospital visit by physician [facility] Start: 01-01-2020 End: 01-02-2020 Patient encounter procedure [facility] Start: 01-01-2020 End: 01-01-2020 Subsequent hospital visit by physician [facility] Start: 09-20-2018 End: 09-21-2018 Patient encounter procedure [facility] Facility:[id number] Procedures Date Procedure Procedure Detail Performing Clinician Start: 07-04-2025 Urnls dip stick/tabl et rgnt non-auto w/o micrscp Mee Yary DO Work Phone: Start: 07-03-2025 US OB BPP W NON-STRESS Mee Yary DO Work Phone: Start: 07-01-2025 US OB BPP W NON-STRESS Mee Yary DO Work Phone: Start: 07-01-2025 US OB PLACENTA Mee Fa zio DO Work Phone: Start: 07-01-2025 TBH UA (CLEAN/CATCH) BABBITT SPINNER/MICRO IF IND. Mee Yary DO Work Phone: Start: 06-27-2025 Urnls dip stick/tabl et rgnt non-auto w/o micrscp Paradise MORROW Work Phone: Start: 06-20-2025 Urnls dip stick/tabl et rgnt non-auto w/o micrscp Mee Yary DO Work Phone: Start: 06-14-2025 TB UA (CLEAN/CATCH) BABBITT SPINNER/MICRO IF IND. Mee Yary DO Work Phone: [...] Not In System Ref Prov Start: 05-21-2025 TB DRUG SCREEN RAPI D (URINE) Mee Yary DO Work Phone: Start: 05-16-2025 Urnls dip stick/tabl et rgnt non-auto w/o micrscp Mee Yary DO Work Phone: Start: 04-18-2025 Urnls dip stick/tabl et rgnt non-auto w/o micrscp Mee Yary DO Work Phone: Start: 04-09-2025 US OB ANATOMY Paradise Wade MORROW Work Phone: Start: 04-09-2025 US OB CERVICAL LENGTH A edilma Wade MORROW Work Phone: Start: 04-06-2025 Urnls dip [...] Adult BMI Screening Adult BMI Screen ing [facility] Start: 05-30-2026 Tobacco Screening Tobacco Screening [facility] Start: 07-05-2025 End: 07-05-2025 Patient encounter procedure [facility] Start: 07-04-2025 End: 07-04-2025 Patient encounter procedure [facility] Comment on above: Arrived Start: 07-02-2025 COVID-19 Vaccine ( season) COVID-19 Vaccine ( season) [facility] Start: 07-02-2025 Influenza [facility] Start: 06-27-2025 End: 06-27-2026 CULTURE, GROUP B STREP WITH SUSCEPTIBLITY CULTURE, GROUP B STREP WITH SUSCEPTIBLITY Lab Routine Third trimester ([facility]) Expected: 06/27/2025, Expires: 06/27/2026 [facility] Work Phone: Comment on above: Expected: 06/27/2025 , Expires: 06/27/2026 Start: 06-27-2025 End: 06-27-2025 Patient encounter procedure [facility] Comment on above: Arrived Start: 06-20-2025 End: 06-20-2025 Patient encounter procedure [facility] Comment on above: Arrived Start: 05-30-2025 End: 05-30-2026 US MFM with or without consult US MFM with or without consult Imaging Routine History of placental abruption Hepatitis C virus infection without hepatic coma, unspecified chronicity Expected: 05/30/2025, Expires: 05/30/2026 [facility] Comment on above: Expected: 05/30/2025 , Expires: 05/30/2026 Start: 05-30-2025 End: 05-30-2025 Patient encounter procedure [facility] Start: 05-30-2025 End: 05-30-2025 Professional / ancillary services management 05/30/2025 10:30 AM EDT Ancillary Procedure [facility] [address] [place] [address] [place] [address] [facility] Start: 05-30-2025 Subsequent hospital visit by physician 05/30/2025 9:15 AM EDT Hospital Encounter [facility] [address] [place] [id number] [facility] Start: 05-16-2025 End: 11-16-2025 US biophysical profile w non stress test US biophysical profile w non stress test Imaging Routine H/O opioid abuse ([facility]) History of placental abruption Expected: 05/16/2025 (Approximate), Expires: 11/16/2025 [facility] Work Phone: Comment on above: Expected: 05/16/2025 (Approximate), Expires: 11/16/2025 Start: 05-16-2025 End: 05-16-2025 Patient encounter procedure [facility] Comment on above: Arrived Start: 05-02-2025 End: 05-02-2025 Patient encounter procedure 05/02/2025 3:20 PM EDT Routine [facility] [address] [place] [id number] Mee Pringle, [address] [place] [address] [facility] Start: 04-18-2025 End: 08-18-2025 US for US OB follow up transabdominal approach Imaging Routine Second trimester ([facility]) Expected: 04/18/2025, Expires: 08/18/2025 [facility] Work Phone: Comment on above: Expected: 04/18/2025 , Expires: 08/18/2025 Start: 04-18-2025 End: 04-18-2025 Patient encounter procedure 04/18/2025 1:30 PM EDT Routine [facility] [address] [place] [address] Mee Pringle, [address] [place] [address] [facility] Start: 04-06-2025 End: 04-06-2026 ABO/Rh ABO/Rh Lab Routine Missed menses , unspecified gestational age ([facility] Expected: 04/06/2025 (Approximate), Expires: 04/06/2026 [facility] Comment on above: Expected: 04/06/2025 (Approximate), Expires: 04/06/2026 Start: 04-06-2025 End: 04-06-2026 Blood type and Indirect antibody screen panel - Blood Type and screen Lab Routine Missed menses , unspecified gestational age ([facility] Expected: 04/06/2025 (Approximate), Expires: 04/06/2026 [facility] Work Phone: Comment on above: Expected: 04/06/2025 (Approximate), Expires: 04/06/2026 Start: 04-06-2025 End: 04-06-2026 CBC panel - Blood by Automated count CBC Lab Routine Diabetes mellitus screening Expected: 04/06/2025 (Approximate), Expires: 04/06/2026 [facility] Comment on above: Expected: 04/06/2025 (Approximate), Expires: 04/06/2026 Start: 04-06-2025 End: 04-06-2026 Drugs of abuse panel - Urine by Screen method Rapid drug screen, urine Lab Routine , unspecified gestational age ([facility]) Encounter for supervision of normal first in first trimester ([facility]) Expected: 04/06/2025 (Approximate), Expires: 04/06/2026 [facility] Comment on above: Expected: 04/06/2025 (Approximate), Expires: 04/06/2026 Start: 04-06-2025 End: 04-06-2026 Measurement of glucose 1 hour after glucose challenge for glucose tolerance test Glucose tolerance, 1 hour Lab Routine Diabetes mellitus screening Expected: 04/06/2025 (Approximate), Expires: 04/06/2026 [facility] Comment on above: Expected: 04/06/2025 (Approximate), Expires: 04/06/2026 Start: 04-06-2025 End: 07-07-2025 US for US OB 14+ weeks anatomy scan Imaging Routine Screening, , for anatomic survey ([facility]) Expected: 04/06/2025, Expires: 07/07/2025 [facility] Comment on above: Expected: 04/06/2025 , Expires: 07/07/2025 Start: 07-02-2024 COVID-19 Vaccine ( season) COVID-19 Vaccine ( season) [facility] Start: 07-02-2024 Influenza vaccination Influenza Vacc ine (#1) [facility] Start: 2022 Screening for malign ant neoplasm of cervix [facility] Start: 07-02-2020 Influenza vaccination Flu vaccine (# 1) [place], [place] Start: 2013 Screening for malign ant neoplasm of cervix Pap Smear [facility] Start: 2011 DTaP,Tdap and Td Vaccines (1 - Tdap) DTaP,Tdap and Td Vaccines (1 - Tdap) [facility] Start: 2010 Adult BMI Follow Up Plan Adult BMI Follow Up Plan [facility] Start: 2010 Adult BMI Screening Adult BMI Screen ing [facility] Start: 2004 Depression Screening Depression Scre ening [facility] Start: 2004 Tobacco Screening Tobacco Screening [facility] Start: 2003 DTaP,Tdap and Td Vaccines (6 - Tdap) DTaP,Tdap and Td Vaccines (6 - Tdap) [facility] End: 05-30-2026 Anti cariolipin AB IgG IgA IgM Anti cariolipin AB IgG IgA IgM Lab Routine History of placental abruption 1 Occurrences starting 05/30/2025 until 05/30/2026 [facility] Comment on above: 1 Occurrences starti ng 05/30/2025 until 05/30/2026 End: 05-30-2026 aPTT in Blood by Coagulation assay APTT Lab Routine History of placental abruption Hepatitis C virus infection without hepatic coma, unspecified chronicity 1 Occurrences starting 05/30/2025 until 05/30/2026 [facility] Comment on above: 1 Occurrences starti ng 05/30/2025 until 05/30/2026 Bacteria identified in Urine by Culture Urine culture Microbiology Routine Missed menses Ordered: 04/06/2025 [facility] Comment on above: Ordered: 04/06/2025 End: 05-30-2026 Beta-2 glycoprotein antibodies Beta-2 glycoprotein antibodies Lab Routine History of placental abruption 1 Occurrences starting 05/30/2025 until 05/30/2026 [facility] Comment on above: 1 Occurrences starti ng 05/30/2025 until 05/30/2026 CBC W Auto Different ial panel - Blood CBC and differential Lab Routine Missed menses , unspecified gestational age ([facility]) Ordered: 04/06/2025 [facility] Comment on above: Ordered: 04/06/2025 CHLAMYDIA TRACHOMATI S (GENITO/STI) CHLAMYDIA TRACHOMATIS (GENITO/STI) Lab Routine Exposure to STD Ordered: 07/04/2025 [facility] Comment on above: Ordered: 07/04/2025 End: 05-30-2026 Comprehensive metabolic 2000 panel - Serum or Plasma Comprehensive metabolic panel Lab Routine History of placental abruption Hepatitis C virus infection without hepatic coma, unspecified chronicity 1 Occurrences starting 05/30/2025 until 05/30/2026 [facility] Work Phone: Comment on above: 1 Occurrences starti ng 05/30/2025 until 05/30/2026 End: 05-30-2026 DRVVT DRVVT Lab Routine History of placental abruption 1 Occurrences starting 05/30/2025 until 05/30/20[facility]: [facility] Occurrences starti ng 05/30/2025 until 05/30/2026 Hemoglobin A1c/Hemoglobin.total in Blood Hemoglobin A1c Lab Routine Missed menses , unspecified gestational age ([facility]) Ordered: 04/06/2025 [facility] Comment on above: Ordered: 04/06/2025 Hemoglobin A1c/Hemoglobin.total in Blood Hemoglobin A1c Lab Routine Diabetes mellitus screening Ordered: 06/07/2025 [facility] Work Phone: Comment on above: Ordered: 06/07/2025 Hepatitis B virus surface Ag [Presence] in Serum or Plasma by Immunoassay Hepatitis B surface antigen Lab Routine Missed menses , unspecified gestational age ([facility]) Ordered: 04/06/2025 [facility] Comment on above: Ordered: 04/06/2025 Hepatitis C virus Ab [Presence] in Serum or Plasma by Immunoassay Hepatitis C antibody Lab Routine Missed menses , unspecified gestational age ([facility]) Ordered: 04/06/2025 [facility] Comment on above: Ordered: 04/06/2025 HIV-1/HIV-2 antigen/antibody combination immunoassay HIV-1 and HIV-2 antibodies Lab Routine Missed menses , unspecified gestational age ([facility]) Ordered: 04/06/2025 [facility] Comment on above: Ordered: 04/06/2025 Neisseria gonorrhoea e DNA [Presence] in Unspecified specimen by SILVIO with probe detection Neisseria gonorrhea DNA probe, direct Lab Routine Exposure to STD Ordered: 07/04/2025 [facility] Comment on above: Ordered: 07/04/2025 End: 05-30-2026 Protime & INR Protime & INR Lab Routine History of placental abruption Hepatitis C virus infection without hepatic coma, unspecified chronicity 1 Occurrences starting 05/30/2025 until 05/30/2026 [facility]: 1 Occurrences starti ng 05/30/2025 until 05/30/2026 Reagin Ab [Presence] in Serum by RPR RPR Lab Routine Missed menses , unspecified gestational age ([facility]) Ordered: 04/06/2025 [facility] Comment on above: Ordered: 04/06/2025 Rubella antibody, IgG Rubella an tibody, IgG Lab Routine Missed menses , unspecified gestational age ([facility]) Ordered: 04/06/2025 [facility] Comment on above: Ordered: 04/06/2025 SURESWAB(R) ADVANCED VAGINITIS PLUS, TMA SURESWAB(R) ADVANCED VAGINITIS PLUS, TMA Pathology and Cytology Routine Vaginal discharge Ordered: 07/04/2025 [facility] Work Phone: Comment on above: Ordered: 07/04/2025 Payers Date Payer Category Payer Medicaid (Managed Care) [employer] [id number] 2021 Unknown 2019 Unknown [facility] xxxxxxxxxxxx 2019-Present [phone] [place] [address] xxxxxxxxxxxx [id number] 2019 Unknown [facility] [id number] 2019-Present [phone] [address] [place] [address] [id number]. [id number] 2019 Medicaid HMO [employer] [id number] 1992 Unknown [id number] 2.16.840.1.381335.3.579.2. 173 1992 Unknown [id number] 2.16.840.1.609503.3.579.2. 173 1992 Unknown [id number] 2.16.840.1.850575.3.579.2. 173 1992 Unknown [id number] 2.16.840.1.964253.3.579.2. 173 1992 Unknown [id number] 2.16.840.1.115111.3.579.2. 196 1992 Unknown [id number] 2.16.840.1.075192.3.579.2. 593 1992 Unknown [id number] 2.16.840.1.946720.3.579.2. 593 1992 Unknown [id number] 2.16.840.1.190707.3.579.2. 593 1992 Unknown [id number] 2.16.840.1.051341.3.579.2. 593 1992 Unknown [id number] 2.16.840.1.505029.3.579.2. 593 1992 Unknown [id number] 2.16.840.1.550383.3.579.2. 593 1992 Unknown [id number] 2.16.840.1.694776.3.579.2. 1286 1992 Unknown [id number] 2.16.840.1.653935.3.579.2. 1286 1992 Unknown [id number] 2.16.840.1.163230.3.579.2. 1259 1992 Unknown [id number] 2.16.840.1.511816.3.579.2. 1259 1992 Unknown [id number] 2.16.840.1.763071.3.579.2. 1259 1992 Unknown [id number] 2.16.840.1.826472.3.579.2. 1259 1992 Unknown [id number] 2.16.840.1.205162.3.579.2. 9 1992 Unknown [id number] 2.16.840.1.590054.3.579.2. 1259 1992 Unknown [id number] 2.16.840.1.568644.3.579.2. 1259 1992 Unknown [id number] 2.16.840.1.377540.3.579.2. 1259 1959 Unknown [id number] Social History Date Type Detail Facility Tobacco smoking stat [facility] Unknown if ever smoked [place], [place] Start: 1990 Sex Assigned At Not on file [place] Start: 04-23-2023 End: 05-30-2025 Tobacco smoking status [facility] Smokes tobacco daily [facility] History of tobacco use Cigarette Smoker [facility] Start: 04-23-2023 End: 05-30-2025 Tobacco use and exposure Smokeless tobacco non-user [facility] Start: 04-23-2023 End: 07-04-2025 Alcoholic beverage intake Lifetime non-drinker (finding) [facility] Start: 04-23-2023 Tobacco Comment Smokes 6-10 ci garettes per day [facility] Start: 12-12-2020 End: 04-06-2025 Gender identity Not on file [facility] Start: 12-12-2020 End: 04-06-2025 History of Social function [facility] Start: 11-04-2024 [facility] Start: 05-30-2025 Alcoholic beverage intake Ex-drinker (finding) [facility]care Unknown [facility] Start: 06-06-2015 Sex Female (finding) [facility] Start: 05-30-2025 Tobacco smoking stat [facility] Ex-smoker [facility] History of tobacco use Current smoker [facility] Clinical Notes 04-06-2025 to 07-05-2025 Telephone Encounter - Vera Chan RN - 07/05/2025 1:39 PM EDTTelephone Encounter - Vera Chan RN - 07/05/2025 1:39 PM EDTRaine Aguilar LPN - 07/04/2025 10:50 AM EDT Note Date & Type Note Facility 07-05-2025 Miscellaneous Notes Patient was a no show for her MFM f/u survey ultrasound today in the [place] office. Called Dr. Pringle's office and left a voicemail on his nurse line regarding such. documented in this encounter [facility] 07-05-2025 Telephone encounter Note Patient was a no show for her MFM f/u survey ultrasound today in the [place] office. Called Dr. Pringle's office and left a voicemail on his nurse line regarding such. [facility] 07-04-2025 History of Presen t illness Narrative Reason [...] (HCC) BMI 28.0-28.9,adult Drug abuse, opioid type ([facility]) Encounter for follow-up Encounter for gynecological examination (general) (routine) without abnormal findings Hepatitis C Labial cyst Pain pelvic HISTORY PAST MEDICAL HISTORY SOCIAL HISTORY Past Medical History: Diagnosis Date Abscess of labia Bipolar disorder (HCC) BMI 28.0-28.9,adult Drug abuse, opioid type ([facility]) Encounter for follow-up Encounter for [...] Constitutional: Appearance: Normal appearance. She is well-developed. Genitourinary: Vulva normal. Cardiovascular: Rate and Rhythm: Normal rate and [...] nursing note reviewed. Exam conducted with a switch box installer present. Vitals: Estimated body mass index is 28.46 kg/m as calculated from the following: Height as of 12/09/22: 5' 5 . Weight as of this encounter: 171 lb. BP: 120/80 No LMP recorded. Patient is . ASSESSMENT & PLAN ICD-10-CM 1. 36 weeks gestation of ([facility]) Z3A.36 POCT urinalysis dipstick manually resulted 2. Third trimester ([facility]) Z34.93 POCT urinalysis dipstick manually resulted 3. H/O opioid abuse ([facility]) F11.11 4. History of placental abruption Z87.59 5. Hepatitis C virus infection without hepatic coma, unspecified chronicity B19.20 6. Exposure to STD Z20.2 CHLAMYDIA TRACHOMATIS (GENITO/STI) Neisseria gonorrhea DNA probe, direct 7. Vaginal discharge N89.8 SURESWAB(R) ADVANCED VAGINITIS PLUS, TMA Return OB: Patient presents today for a routine obstetrics appointment. Patient is currently 36w4d . Patient states she is doing well but has complaints of being tired due to current . Patient has verbalizes frequent movement. labor precautions was discussed/given and patient was instructed to perform kick counts three times a day. Cultures obtained without difficulty. Pt to have section and tubal on 07/06/25. Orders Placed This Encounter Procedures CHLAMYDIA TRACHOMATIS (GENITO/STI) Neisseria gonorrhea DNA probe, direct POCT urinalysis dipstick manually resulted Follow Up: Patient is to return to office in 1 week for routine OB appointment. Documented by Raine Aguilar LPN on behalf of: Mee Pringle DO documented in this encounter [facility] 06-27-2025 History of Presen t illness Narrative Reason [...] (HCC) BMI 28.0-28.9,adult Drug abuse, opioid type ([facility]) Encounter for follow-up Encounter for gynecological examination (general) (routine) without abnormal findings Hepatitis C Labial cyst Pain pelvic HISTORY PAST MEDICAL HISTORY SOCIAL HISTORY Past Medical History: Diagnosis Date Abscess of labia Bipolar disorder (HCC) BMI 28.0-28.9,adult Drug abuse, opioid type ([facility]) Encounter for follow-up Encounter for [...] ASSESSMENT & PLAN ICD-10-CM 1. Third trimester ([facility]) Z34.93 POCT urinalysis dipstick manually resulted CULTURE, GROUP B STREP WITH SUSCEPTIBLITY CULTURE, GROUP B STREP WITH SUSCEPTIBLITY CANCELED: POCT urinalysis dipstick manually resulted CANCELED: CULTURE, GROUP B STREP WITH SUSCEPTIBLITY CANCELED: CULTURE, GROUP B STREP WITH SUSCEPTIBLITY 2. 35 weeks gestation of ([facility]) Z3A.35 Return OB: Patient is doing well [...] of: CRISTHIAN Sanders documented in this encounter [facility] 06-20-2025 History of Presen t illness Narrative Reason [...] (HCC) BMI 28.0-28.9,adult Drug abuse, opioid type ([facility]) Encounter for follow-up Encounter for gynecological examination (general) (routine) without abnormal findings Hepatitis C Labial cyst Pain pelvic HISTORY PAST MEDICAL HISTORY SOCIAL HISTORY Past Medical History: Diagnosis Date Abscess of labia Bipolar disorder (HCC) BMI 28.0-28.9,adult Drug abuse, opioid type ([facility]) Encounter for follow-up Encounter for [...] nursing note reviewed. Exam conducted with a switch box installer present. Vitals: Estimated body mass index is 28.09 kg/m as calculated from the following: Height as of 12/09/22: 5' 5 . Weight as of this encounter: 168 lb 12.8 oz. BP: 120/80 No LMP recorded. Patient is . ASSESSMENT & PLAN ICD-10-CM 1. 34 weeks gestation of ([facility]) Z3A.34 POCT urinalysis dipstick manually resulted 2. Third trimester ([facility]) Z34.93 POCT urinalysis dipstick manually resulted 3. H/O opioid abuse ([facility]) F11.11 4. History of placental abruption Z87.59 [...] Mee Pringle DO documented in this encounter [facility] 06-07-2025 History of Presen t illness Narrative Reason [...] (HCC) BMI 28.0-28.9,adult Drug abuse, opioid type ([facility]) Encounter for follow-up Encounter for gynecological examination (general) (routine) without abnormal findings Labial cyst Pain pelvic HISTORY PAST MEDICAL HISTORY SOCIAL HISTORY Past Medical History: Diagnosis Date Abscess of labia Bipolar disorder ([facility]) BMI 28.0-28.9,adult Drug abuse, opioid type ([facility]) Encounter for follow-up Encounter for [...] nursing note reviewed. Exam conducted with a switch box installer present. Vitals: Estimated body mass index is 27.46 kg/m as calculated from the following: Height as of 12/09/22: 5' 5 . Weight as of this encounter: 165 lb. BP: 118/74 No LMP recorded. Patient is . ASSESSMENT & PLAN ICD-10-CM 1. Third trimester ([facility]) Z34.93 POCT urinalysis dipstick manually resulted 2. 32 weeks gestation of ([facility]) Z3A.32 3. H/O opioid abuse ([facility]) F11.11 4. History of placental abruption Z87.59 [...] Mee Pringle DO documented in this encounter [facility] 05-30-2025 History of Presen t illness Narrative Headache/epigastric pain/blurry vision/swelling? Headaches that are relieved with Tylenol Cramping/contractions? No Spotting/vaginal bleeding? No Loss or gush of fluid like your water may have broken? No Do you have cats at home? Outside cats Do you change the litter box (reason: risk of toxoplasmosis)? No Genetic testing done this here or other office? No Have you been seen here at [facility] in a previous ? No Recent ER visits or hospitalizations? No Bring blood sugar log or meter with you today? (Please bring them with you for every visit at [facility]) N/A Flu vaccine (Sep-December)? N/A [...] intensive care unit. The overall risk of Esbddnqx-Zs-Eoyex-Transmission (MTCT) during is approximately 4-8%. If the [...] C infection until after 18 months. The [place] [employer] and CDC recommend screening [...] and counseling, coordination of care which was plat-[id number]-mdfz. documented in this encounter [facility] 05-16-2025 History of Presen t illness Narrative [...] (HCC) BMI 28.0-28.9,adult Drug abuse, opioid type ([facility]) Encounter for follow-up Encounter for gynecological examination (general) (routine) without abnormal findings Labial cyst Pain pelvic HISTORY PAST MEDICAL HISTORY SOCIAL HISTORY Past Medical History: Diagnosis Date Abscess of labia Bipolar disorder (HCC) BMI 28.0-28.9,adult Drug abuse, opioid type ([facility]) Encounter for follow-up Encounter for [...] nursing note reviewed. Exam conducted with a switch box installer present. Vitals: Estimated body mass index is 26.46 kg/m as calculated from the following: Height as of 12/09/22: 5' 5 . Weight as of this encounter: 159 lb. BP: 110/70 No LMP recorded. Patient is . ASSESSMENT & PLAN ICD-10-CM 1. 29 weeks gestation of ([facility]) Z3A.29 POCT urinalysis dipstick manually resulted 2. Third trimester ([facility]) Z34.93 POCT urinalysis dipstick manually resulted 3. Request for sterilization Z30.2 4. H/O opioid abuse ([facility]) F11.11 5. History of placental [...] Mee Pringle DO documented in this encounter [facility] 05-02-2025 History of Presen t illness Narrative [...] (HCC) BMI 28.0-28.9,adult Drug abuse, opioid type ([facility]) Encounter for follow-up Encounter for gynecological examination (general) (routine) without abnormal findings Labial cyst Pain pelvic HISTORY PAST MEDICAL HISTORY SOCIAL HISTORY Past Medical History: Diagnosis Date Abscess of labia Bipolar disorder (HCC) BMI 28.0-28.9,adult Drug abuse, opioid type ([facility]) Encounter for follow-up Encounter for [...] nursing note reviewed. Exam conducted with a switch box installer present. Vitals: Estimated body mass index is 26.26 kg/m as calculated from the following: Height as of 23: 5' 5 . Weight as of this encounter: 157 lb 12.8 oz. BP: 104/70 No LMP recorded. Patient is . ASSESSMENT & PLAN ICD-10-CM 1. Second trimester ([facility]) Z34.92 2. 27 weeks gestation of ([facility]) Z3A.27 3. Request for sterilization Z30.2 4. H/O opioid abuse ([facility]) F11.11 5. History of placental [...] Mee Pringle DO documented in this encounter [facility] 04-18-2025 History of Presen t illness Narrative [...] (HCC) BMI 28.0-28.9,adult Drug abuse, opioid type ([facility]) Encounter for follow-up Encounter for gynecological examination (general) (routine) without abnormal findings Labial cyst Pain pelvic HISTORY PAST MEDICAL HISTORY SOCIAL HISTORY Past Medical History: Diagnosis Date Abscess of labia Bipolar disorder (HCC) BMI 28.0-28.9,adult Drug abuse, opioid type ([facility]) Encounter for follow-up Encounter for [...] nursing note reviewed. Exam conducted with a switch box installer present. Vitals: Estimated body mass index is 25.79 kg/m as calculated from the following: Height as of 12/09/22: 5' 5 . Weight as of this encounter: 155 lb. BP: 112/64 No LMP recorded. Patient is . ASSESSMENT & PLAN ICD-10-CM 1. Second trimester ([facility]) Z34.92 POCT urinalysis dipstick manually resulted 2. 25 weeks gestation of ([facility]) Z3A.25 Return OB: Patient presents today for [...] Mee Pringle DO documented in this encounter [facility] 04-06-2025 History of Presen t illness Narrative [...] Date Abscess of labia Bipolar disorder ([facility]) BMI 28.0-28.9,adult Drug abuse, opioid type ([facility]) Encounter for follow-up Encounter for [...] dipstick manually resulted , unspecified gestational age ([facility]) - Type and screen; Future - ABO/Rh; Future - CBC and differential - Hemoglobin A1c - RPR - Rubella antibody, IgG - Hepatitis B surface antigen - Hepatitis C antibody - HIV-1 and HIV-2 antibodies - Rapid drug screen, urine; Future Encounter for supervision of normal first in first trimester ([facility]) - Rapid drug screen, urine; Future Screening, , for anatomic survey ([facility]) - OB 14+ weeks anatomy scan; Future Diabetes mellitus screening - CBC; Future - Glucose tolerance, 1 hour; Future headache in second trimester ([facility]) - magnesium oxide (Mag-Ox) 400 MG tablet; [...] or undercooked meat, and stay away from [facility]. Patient has also been advised to [...] Olive Leon LPN documented in this encounter [facility] Healthcare Evaluation note Diagnosis Missed menses , unspecified gestational age ([facility]) Encounter for supervision of normal first in first trimester ([facility]) Screening, , for anatomic survey ([facility]) Encounter for anatomic survey Diabetes mellitus screening Screening for diabetes mellitus headache in second trimester ([facility]) documented [facility] encounter [facility] Diagnosis Second trimester ([facility]) state, incidental 25 weeks gestation of ([facility]) documented in this encounter [facility]* Diagnosis Second trimester ([facility]) state, incidental 27 weeks gestation of ([facility]) Request for sterilization H/O opioid abuse ([facility]) History of placental abruption documented in this [...] in this encounter [facility] Diagnosis 36 weeks gestation of ([facility]) Third trimester ([facility]) state, incidental H/O opioid abuse ([facility]) History of placental abruption Hepatitis C virus infection without hepatic coma, unspecified chronicity Exposure to STD Vaginal discharge Leukorrhea, not specified as infective documented in this encounter [facility] HealthcareInstructionsNot on filedocumented in this encounterProEver[facility] SystemInstructionsNot on filedocumented in this encounterPro[facility] SystemInstructionsNot on filedocumented in this encounterProMansfield [facility] SystemInstructionsNot on filedocumented in this encounterSumma Health System Summary Purpose Family History No Family History Records FoundNo Family History Records FoundNo Family History Records FoundNo Family History Records FoundNo Family History Records FoundNo Family History Records Found Advance Directives No Advanced Directives Records FoundDocuments on File Type Date Recorded Patient Character Impersonator Expl anation Advance Directives and Living Will Power of Retail Delivery Driver Documents on File Type Date Recorded Patient Character Impersonator Expl anation ACP-Advance Directive ACP-Power of Retail Delivery Driver Additional Source Comments INFORMATION SOURCE (unrecogn ized section and content) DATE CREATED AUTHOR 10/10/2018 [facility] DATE CREATED AUTHOR AUTHOR'S ORGANIZ ATION 12/06/2020 [facility] DATE CREATED AUTHOR AUTHOR'S ORGANIZ ATION 03/29/2021 [facility] DATE CREATED AUTHOR AUTHOR'S ORGANIZ ATION 12/10/2022 [facility] DATE CREATED AUTHOR AUTHOR'S ORGANIZ ATION 06/01/2025 [facility] DATE CREATED AUTHOR AUTHOR'S ORGANIZ ATION 07/06/2025 [facility] EPIC Reason for Visit (unrecogniz ed section and content) Reason Comments Amenorrhea Reason Comments Routine Visit Reason Comments Hepatitis C Current Everyday Smoker Care Teams (unrecognized sec tion and content) 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 [employer] provides no warranty or guarantee of the accuracy or completeness of information in this document.
[2025-07-06] MEDS: 0.9 % SODIUM CHLORIDE 1,000 ML 1000 ML IV ×2 (05:55→06:35)
[2025-07-06 06:08] LABS: Glucose Urine UA NEGATIVE (NEGATIVE)
[2025-07-06 06:10] LABS: Hematocrit 30.5 % (36.0-48.0); Hemoglobin 10.8 g/dL (12.0-16.0); Mean Corpuscular HGB Conc 35.4 g/dL (29.9-35.2); Mean Corpuscular Hemoglobin 27.8 pg (26.7-34.0); Mean Corpuscular Volume 78.6 fL (81.0-99.0); Platelet Count 190 10^3/uL (150-450); Red Blood Count 3.88 10^6/uL (4.20-5.40); White Blood Count 13.5 10^3/uL (4.0-11.0)
[2025-07-06 06:17] LABS: Cannabinoid Screen Urine NEGATIVE (NEGATIVE); Methamphetamines Screen Urine NEGATIVE (NEGATIVE); Tricyclic Antidepressant Urine POSITIVE (NEGATIVE)
[2025-07-06 06:25] LABS: Cast Seen? NONE SEEN #/LPF (NONE SEEN); Crystals Seen? None Seen #/HPF (None Seen); Urine Culture Indicated YES-LC
[2025-07-06 07:45] LABS: Segmented Neutrophils % Manual 55.0 (43.0-75.0)
[2025-07-06 07:46] LABS: Basophils Abs Manual 0.00 10^3/uL (0.00-0.10); Basophils Percent Manual 0.0 % (0.2-2.0); Eosinophils Absolute Manual 0.27 10^3/uL (0.00-0.70); Eosinophils Percent Manual 2.0 % (0.9-7.0); Lymphocytes Absolute Manual 4.86 10^3/uL (1.20-3.80); Lymphocytes Percent Manual 36.0 % (20.5-60.0); Monocytes Absolute Manual 0.81 10^3/uL (0.30-0.80); Monocytes Percent Manual 6.0 % (1.7-12.0)
[2025-07-06 07:47] LABS: Atypical Lymphocytes % Manual 1.0 %; Atypical Lymphocytes Abs Man 0.13
[2025-07-06] MEDS: CEFAZOLIN SODIUM/DEXTROSE,ISO 2 GM/50 ML PIGGYBACK IV ×2 (07:50→15:49)
[2025-07-06] MEDS: CITRIC ACID/SODIUM CITRATE 30 ML SOLUTION ORACIT SHOHL'S SOLN PO (07:50)
--- NOTE | 2025-07-06 08:46 | P.ON_ITS ---
Brief Operative Note Date of procedure: 07/06/25 Pre-op diagnosis general: iup at 36 6/7wks, previous c/s, ho placental abruption Post-op diagnosis: other (placental abruption) Procedure: NAME OF PROCEDURE: [ section with bilateral salpingectomy ] please note partial placental aburption due to amount of copious bloody amniotic fluid was noted PROCEDURE: Patient was taken back to the Operating Room where she was given a spinal anesthesia with Duramorph without difficulty. She was prepped and draped in the normal sterile fashion. A Pfannenstiel skin incision was then made 2?cm above the symphysis pubis and carried down to underlying rectus fascia using a Bovie. The fascia was incised in the midline and extended laterally using Dolan scissors. Two Liset clamps were placed on the superior aspect of the fascia and dissected off the underlying rectus muscles. The same was performed on the inferior aspect as well. The muscles were then in the midline. Peritoneum was identified and entered bluntly. The peritoneum was then extended superiorly and inferiorly with good visualization of the bladder. The bladder blade was inserted. Vesicouterine peritoneum was identified, tented up, and entered with Metzenbaum scissors. A bladder flap was then created digitally. The bladder blade was reinserted. A low transverse incision was made on the patient's uterus and extended laterally digitally. The was then delivered atraumatically after the bladder blade was removed in the cephalic position. The cord was clamped and cut. Cord blood was obtained. The was handed off to awaiting team. The patient's placenta was spontaneously delivered. The uterus was then exteriorized. The uterus was cleared of all clots and debris. The bladder blade was reinserted. The patient's uterine incision was closed using #0 Vicryl in a running lock fashion. Excellent hemostasis was assured.? The rt tube was identified and grasped with babock, the ligasure was used to transect and ligate the tube in its entirity, this was done on the contralateral side as well. The uterus was then returned to the patient's abdomen. The patient's abdomen was copiously irrigated using warm saline. Peritoneal gutters were cleared of all clots and debris. Again excellent hemostasis was assured. The patient's fascia was closed using #0 Vicryl in a running fashion. The patient's skin was closed using 4-0 Vicryl subcuticularly. The patient tolerated the procedure well. Sponge, lap, and needle counts were correct x2. The patient was taken to the Recovery Room in stable condition. Anesthesia: spinal Surgeon: Tony Pringle Human Performance Professor: Angelica Neal Estimated blood loss (mL): 800 Pathology: other (placenta) Condition: stable Disposition: floor Urinary Catheter Management Urinary Catheter Management Urethral: Cath placed during this visit: no
--- NOTE | 2025-07-06 08:48 | PM.OBPRCCS ---
Procedure Pre-op/Post-op diagnoses: Pre-Op/Post-Op Diagnoses Operation Date: 07/06/25 07:30 <No data on this case meets the specified criteria> Procedure: Procedures Operation Date: 07/06/25 07:30 Actual Procedure Side Surgeon p Repeat with bilateral salpingectomy Bilateral Tony Pringle DO Oil Tank Car Cleaner: Angelica Neal Estimated blood loss (mL): 800 Disposition: floor Anesthesia type: Spinal
[2025-07-06] MEDS: 0.9 % SODIUM CHLORIDE 1,000 ML 125 ML IV (09:16)
--- NOTE | 2025-07-06 11:39 | SWNOTE1 ---
SW stopped back to see pt. SW spoke to nurse and pt had baby this morning, and it exhausted, going to take a nap. Nurse will call SW when appropriate to see pt.
[2025-07-06] MEDS: FAMOTIDINE/PF 20 MG/2 ML VIAL IV (13:18)
--- NOTE | 2025-07-06 13:35 | PHA.CONS ---
A Pharmacy consult was conducted for ALEXANDER CASON due to: Zuniga Fall Scale Risk Level: Moderate Fall Risk on 07/06/25 06:25 and a Medication Fall Risk Score greater than 6. The recommendations are as follows:
--- NOTE | 2025-07-06 14:07 | SWNOTE1 ---
Pt was positive for Buprenorphine and Tricyclic Antidepressant. SW met with pt to discuss positive drug screen and to make sure she has everything she needs. Pt is living at home. She has 3 other children who are 14,13, and 10. Father of 10 year is not involved. The 2 older children have a different father. Father of this baby is not involved as he wanted pt to get . Pt's mother will be staying with her to help pt at home for the time being. Pt does have everything she needs at home for baby. Pt is going to attempt to breast feed, she did not with the others, but wants to with this child. Pt did use WIC for her other children. She did contact them again and they said to call once she is home with baby. Pt voiced she will call. Pt is a previous drug user. She is currently on 8 mg of Suboxone and she has been on it for 4 years. Back in 2019 she decided she wanted to get sober and she went to [facility] in [place]. She graduated all their programs and she has been sober ever since. [facility] She used to see Mackenzie Fletcher there, but there is a new physician there by the name of [place]. Pt still goes once a month. This month, since she had baby, they were able to call a prescription in for her. Pt does also take Seroquel for her Bipolar Depression. She has not stopped taking it and will continue to take it. Unsure at this time why pt was positive for Tricyclic Antidepressant. Pt voiced she is doing and feelign well. She did not have any post depression with her other children. SW expressed to pt to reach out to family if she does start to feel down/depressed. She voiced understanding. Pt voiced her whole family is very good support for her. SW did advise that due to the positive drug screen that SW does have to make a referral to [facility]. Pt voiced understanding. Pt did voiced that it is tough being at hospital and the stigma with previous drug use. SW expressed to pt that she is doing great and should be proud of herself for being sober for so long and that she has accomplished so much. Pt voiced appreciation. SW called report to [facility]. HIPAA form filled out and sent to Jaent[facility] Walter.
[2025-07-06] MEDS: KETOROLAC TROMETHAMINE 30 MG/ML VIAL IVP ×2 (15:46→20:09)
[2025-07-06] MEDS: BUPRENORPHINE HCL/NALOXONE HCL 8-2 MG TABLET SUBL 1.25 TAB PO (15:47)
[2025-07-06] MEDS: ACETAMINOPHEN 500 MG TABLET 1000 MG PO (18:48)
[2025-07-06] MEDS: SIMETHICONE 80 MG TAB.CHEW PO (20:09)
[2025-07-06] MEDS: QUETIAPINE FUMARATE 25 MG TABLET 50 MG PO (22:18)
[2025-07-07] MEDS: KETOROLAC TROMETHAMINE 30 MG/ML VIAL IVP (03:01)
[2025-07-07 04:28] VITALS: BP 116/64; PULSE 80; TEMP 36.8
[2025-07-07] MEDS: ACETAMINOPHEN 500 MG TABLET 1000 MG PO ×3 (04:29→20:22)
[2025-07-07 06:25] LABS: Hemoglobin 7.9 g/dL (12.0-16.0); Mean Corpuscular HGB Conc 35.4 g/dL (29.9-35.2); Mean Corpuscular Hemoglobin 27.7 pg (26.7-34.0); Mean Corpuscular Volume 78.2 fL (81.0-99.0); Platelet Count 188 10^3/uL (150-450); Red Blood Count 2.85 10^6/uL (4.20-5.40); White Blood Count 18.1 10^3/uL (4.0-11.0)
[2025-07-07 06:29] LABS: Hematocrit 22.3 % (36.0-48.0)
[2025-07-07 06:36] LABS: Basophils Abs Manual 0.00 10^3/uL (0.00-0.10); Basophils Percent Manual 0.0 % (0.2-2.0); Eosinophils Absolute Manual 0.18 10^3/uL (0.00-0.70); Eosinophils Percent Manual 1.0 % (0.9-7.0); Lymphocytes Absolute Manual 4.52 10^3/uL (1.20-3.80); Lymphocytes Percent Manual 25.0 % (20.5-60.0); Monocytes Absolute Manual 0.72 10^3/uL (0.30-0.80); Monocytes Percent Manual 4.0 % (1.7-12.0); Segmented Neut Absolute Manual 12.67 10^3/uL (1.4-6.5); Segmented Neutrophils % Manual 70.0 (43.0-75.0)
[2025-07-07 08:45] VITALS: BP 101/65; TEMP 36.7
[2025-07-07] MEDS: DOCUSATE SODIUM 100 MG CAPSULE PO ×2 (09:39→20:22)
[2025-07-07] MEDS: IBUPROFEN 400 MG TABLET 800 MG PO ×3 (09:39→21:08)
[2025-07-07] MEDS: BUPRENORPHINE HCL/NALOXONE HCL 8-2 MG TABLET SUBL 1 TAB SL (09:53)
--- NOTE | 2025-07-07 10:19 | P.OBPN_ITS ---
OB - PN: Subj Subjective Patient comments: no complaints, pain well controlled, tolerating diet and flatus present [place] infant status: doing well [place] feeding status: exclusively Exam Narrative Exam Narrative: Pt w/o complaints Constitutional Vital Signs, click to edit/add: Last Vital Signs Temp 98.1 F 07/07/25 08:45 Pulse 80 07/07/25 04:28 Resp 16 07/07/25 09:11 BP 101/65 07/07/25 08:45 Pulse Ox 96 07/06/25 16:25 O2 Del Method Room Air 07/07/25 04:30 Documenting provider has reviewed patient's vital signs: yes Common normals: no apparent distress, average body habitus, oriented x3, no limitations, healthy appearing and well nourished General appearance: cooperative, comfortable, well kempt and well developed Orientation/consciousness: Yes awake, Yes oriented to person, Yes oriented to place and Yes oriented to time GI Common normals: Normal to inspection, nondistended, normoactive bowel sounds present, soft to palpation and non-tender Inspection: normal to inspection Palpation: other (Fundus firm and 1 fingerbreadth below the umbilicus) Back & Pelvis Pelvis: other (Mild lochia rubra present) Extremity Common normals: normal to inspection, no calf tenderness and no pedal edema Results Labs Labs: Short CBC 07/07/25 Range/Units 06:11 WBC 18.1 H (4.0-11.0) 10^3/uL Hgb 7.9 L (12.0-16.0) g/dL Hct 22.3 L* (36.0-48.0) % Plt Count 188 (150-450) 10^3/uL Urinary Catheter Management Urinary Catheter Management Urethral: Cath placed during this visit: yes Urethral indwelling: No Insertion date: 07/06/25 Insertion time: 08:00 OB - PN: A/P Assessment and Plan (1) delivery delivered: (2) Opioid abuse: (3) Bipolar 1 disorder: (4) Vapes nicotine containing substance: (5) Hepatitis C antibody detected: Plan Pt is PP#1 progressing well. Will continue supportive care. Plan - Plan: routine postop care Time Spent with Patient Time: Total time spent is greater than 50% in coordination of care (as documented) at patient's floor/unit and/or counseling patient: Total time spent with greater than 50% in coordination of care (as documented) at patient's floor/unit and/or counseling patient: less than 15 minutes
[2025-07-07 15:52] VITALS: BP 113/70; PULSE 74; TEMP 36.6
[2025-07-07] MEDS: QUETIAPINE FUMARATE 25 MG TABLET 50 MG PO (21:08)
[2025-07-08 01:10] VITALS: BP 100/56; PULSE 69; TEMP 36.6
[2025-07-08] MEDS: ACETAMINOPHEN 500 MG TABLET 1000 MG PO ×3 (03:49→21:06)
[2025-07-08] MEDS: IBUPROFEN 400 MG TABLET 800 MG PO ×3 (04:58→18:08)
[2025-07-08 08:16] VITALS: BP 112/64; PULSE 70; TEMP 36.7
[2025-07-08] MEDS: DOCUSATE SODIUM 100 MG CAPSULE PO ×2 (08:21→21:05)
[2025-07-08] MEDS: BUPRENORPHINE HCL/NALOXONE HCL 8-2 MG TABLET SUBL 1 TAB SL (08:22)
--- NOTE | 2025-07-08 09:21 | PM.OBPN ---
OB - PN: Subj Subjective Patient comments: no complaints, pain well controlled, tolerating diet and flatus present [place] infant status: doing well and well [place] feeding status: exclusively Exam Constitutional Vital Signs, click to edit/add: Last Vital Signs Temp 97.9 F 07/08/25 01:10 Pulse 70 07/08/25 08:16 Resp 14 07/08/25 01:10 BP 112/64 07/08/25 08:16 Pulse Ox 96 07/06/25 16:25 O2 Del Method Room Air 07/08/25 01:10 Documenting provider has reviewed patient's vital signs: yes Common normals: no apparent distress, average body habitus, oriented x3, no limitations, healthy appearing, alert and well nourished General appearance: cooperative, comfortable, well kempt and well developed Orientation/consciousness: Yes awake, Yes oriented to person, Yes oriented to place and Yes oriented to time GI Common normals: Normal to inspection, nondistended, normoactive bowel sounds present, soft to palpation and non-tender Inspection: other (Incision is dry and clear without drainage.) Auscultation: normoactive bowel sounds Back & Pelvis Pelvis: other (Mild lochia rubra is present) Extremity Common normals: normal to inspection, no calf tenderness and no pedal edema Urinary Catheter Management Urinary Catheter Management Urethral: Cath placed during this visit: yes Urethral indwelling: No Insertion date: 07/06/25 Insertion time: 08:00 OB - PN: A/P Assessment and Plan (1) delivery delivered: (2) Opioid abuse: (3) Bipolar 1 disorder: (4) Vapes nicotine containing substance: (5) Hepatitis C antibody detected: Plan Patient is postop day #2 progressing well. Will continue supportive care. Plan - day: 2 Plan: routine postop care Time Spent with Patient Time: Total time spent is greater than 50% in coordination of care (as documented) at patient's floor/unit and/or counseling patient: Total time spent with greater than 50% in coordination of care (as documented) at patient's floor/unit and/or counseling patient: less than 15 minutes
[2025-07-08 16:38] VITALS: BP 116/63; PULSE 72
[2025-07-08 16:40] VITALS: BP 116/63; PULSE 72; TEMP 36.8
[2025-07-08] MEDS: QUETIAPINE FUMARATE 25 MG TABLET 50 MG PO (22:57)
[2025-07-08 22:59] VITALS: BP 117/67; PULSE 82; TEMP 36.6
[2025-07-09] MEDS: IBUPROFEN 400 MG TABLET 800 MG PO ×3 (07:45→23:16)
[2025-07-09 08:52] VITALS: BP 121/70; PULSE 69; TEMP 37.2
[2025-07-09 08:55] VITALS: BP 121/70; PULSE 69
[2025-07-09] MEDS: BUPRENORPHINE HCL/NALOXONE HCL 8-2 MG TABLET SUBL 1 TAB SL (09:06)
--- NOTE | 2025-07-09 12:01 | PM.OBPN ---
OB - PN: Subj Subjective Patient comments: no complaints and pain well controlled status: doing well Exam Constitutional Vital Signs, click to edit/add: Last Vital Signs Temp 99 F 07/09/25 08:52 Pulse 69 07/09/25 08:55 Resp 16 07/09/25 08:52 BP 121/70 07/09/25 08:55 Pulse Ox 96 07/06/25 16:25 O2 Del Method Room Air 07/09/25 08:52 Documenting provider has reviewed patient's vital signs: yes Common normals: no apparent distress Respiratory Common normals: normal respiratory effort and clear to auscultation bilaterally Cardio Common normals: regular rate and regular rhythm GI Common normals: Normal to inspection, nondistended, normoactive bowel sounds present Extremity Common normals: no clubbing, cyanosis or edema and no calf tenderness Urinary Catheter Management Urinary Catheter Management Urethral: Cath placed during this visit: yes Urethral indwelling: No Insertion date: 07/06/25 Insertion time: 08:00 OB - PN: A/P Assessment and Plan (1) delivery delivered: (2) Opioid abuse: (3) Bipolar 1 disorder: (4) Vapes nicotine containing substance: (5) Hepatitis C antibody detected: Plan - day: 3 Plan: routine postop care Time Spent with Patient Time: Total time spent is greater than 50% in coordination of care (as documented) at patient's floor/unit and/or counseling patient: Total time spent with greater than 50% in coordination of care (as documented) at patient's floor/unit and/or counseling patient: less than 15 minutes
[2025-07-09] MEDS: ACETAMINOPHEN 500 MG TABLET 1000 MG PO ×2 (13:20→23:16)
[2025-07-09 18:25] VITALS: BP 124/65; PULSE 73
[2025-07-09 18:56] VITALS: BP 121/65; PULSE 78; TEMP 36.9
[2025-07-09 23:11] VITALS: BP 122/78; PULSE 73; TEMP 36.9
[2025-07-09 23:12] VITALS: BP 122/78; PULSE 73
[2025-07-09] MEDS: DOCUSATE SODIUM 100 MG CAPSULE PO (23:15)
[2025-07-09] MEDS: QUETIAPINE FUMARATE 25 MG TABLET 50 MG PO (23:19)
--- NOTE | 2025-07-10 01:20 | PM.OBPN ---
OB - PN: Subj Subjective Patient comments: no complaints and pain well controlled status: doing well Exam Constitutional Vital Signs, click to edit/add: Last Vital Signs Temp 98.5 F 07/09/25 23:11 Pulse 73 07/09/25 23:12 Resp 18 07/09/25 23:11 BP 122/78 07/09/25 23:12 Pulse Ox 96 07/06/25 16:25 O2 Del Method Room Air 07/09/25 23:20 Documenting provider has reviewed patient's vital signs: yes Common normals: no apparent distress Respiratory Common normals: clear to auscultation bilaterally Cardio Common normals: regular rate and regular rhythm GI Common normals: Normal to inspection, nondistended, normoactive bowel sounds present Extremity Common normals: no clubbing, cyanosis or edema and no calf tenderness Urinary Catheter Management Urinary Catheter Management Urethral: Cath placed during this visit: yes Urethral indwelling: No Insertion date: 07/06/25 Insertion time: 08:00 OB - PN: A/P Assessment and Plan (1) delivery delivered: (2) Opioid abuse: (3) Bipolar 1 disorder: (4) Vapes nicotine containing substance: (5) Hepatitis C antibody detected: Plan - day: 4 Plan: routine postop care, discharge home and other (fu 1wk) Time Spent with Patient Time: Total time spent is greater than 50% in coordination of care (as documented) at patient's floor/unit and/or counseling patient: Total time spent with greater than 50% in coordination of care (as documented) at patient's floor/unit and/or counseling patient: less than 15 minutes
[2025-07-10] MEDS: IBUPROFEN 400 MG TABLET 800 MG PO (05:57)
[2025-07-10] MEDS: ACETAMINOPHEN 500 MG TABLET 1000 MG PO (08:45)
[2025-07-10] MEDS: DOCUSATE SODIUM 100 MG CAPSULE PO (08:46)
[2025-07-10 09:02] VITALS: BP 131/83; PULSE 81
[2025-07-10 09:04] VITALS: BP 131/83; PULSE 81; TEMP 36.4
[2025-07-10] MEDS: BUPRENORPHINE HCL/NALOXONE HCL 8-2 MG TABLET SUBL 1 TAB SL (13:16)
--- NOTE | 2025-07-10 13:41 | SWNOTE1 ---
SW stopped back in to check on pt. She is hoping that she and baby are able to be discharged home today. She voiced she is feeling sore, but good. Voiced baby is doing well too. Pt is ready to be home with her children and voiced appreciation for the care she received here.
[2025-07-10 16:15] VITALS: O2SAT 96
--- NOTE | 2025-07-10 17:30 | DS_ITS ---
DISCHARGE DATE: ??07/10/2025 ? PRIMARY DIAGNOSES: 1.? Intrauterine at 36 6/7 weeks. 2.? Previous . 3.? History of partial abruption.? Please note:? Patient appears to be starting partial abruption due to copious amount of bloody amniotic fluid. ? PROCEDURE:? section with bilateral salpingectomy. ? HOSPITAL COURSE:? As expected.? Please see chart for full details.? ? LABORATORY DATA:? Please see chart. ? COMPLICATIONS:? None. ? DISCHARGE CONDITION:? Stable. ? CONSULTATION:? Anesthesia. ? DISCHARGE INSTRUCTIONS: 1.? Diet:? Regular. 2.? Medications: a.? Percocet 5/325 one to two p.o. every 4-6 hours p.r.n. pain. b.? Motrin 800 one p.o. every 8 hours p.r.n. pain. 3.? Followup in one week. Restrictions:? Pelvic rest for 6 weeks.? No heavy lifting.? May drive when pain free and no longer on narcotics. MTDD
== END 2025-07-10 17:30 | disposition home or self-care (01) | DRG 539 ==
PROVIDERS: Admitting Provider Obstetrics & Gynecology; PCP Nurse Practitioner Family; Visit Provider Obstetrics & Gynecology
PROC: 10D00Z1 Extraction of Products of Conception, Low, Open Approach (ICD-10-PCS; CPT 59514; principal; 2025-07-06 07:30)
DX: O45.93 Premature separation of placenta, unspecified, third trimester (principal); O34.211 Maternal care for low transverse scar from previous cesarean delivery; Z37.0 Single live birth; O99.324 Drug use complicating childbirth; F11.10 Opioid abuse, uncomplicated; Z3A.36 36 weeks gestation of pregnancy; O99.344 Other mental disorders complicating childbirth; F31.9 Bipolar disorder, unspecified; O99.334 Smoking (tobacco) complicating childbirth; F17.290 Nicotine dependence, other tobacco product, uncomplicated; O98.42 Viral hepatitis complicating childbirth; B19.20 Unspecified viral hepatitis C without hepatic coma; Z30.2 Encounter for sterilization; Z87.59 Personal history of other complications of pregnancy, childbirth and the puerperium
CPT/HCPCS: 36415; 64488; 76818; 80307; 81001; 85007; 85027; 86850; 86900; 86901; 87086; 94667; 94668; J0131; J0574; J0665; J0690; J1100; J1200; J1885; J2250; J2274; J2405; J2590; J2704; J3010; J3490